=== PATIENT | male | born 1950 | race Caucasian/White ===

== ENCOUNTER → 2017-09-28 07:06 | Outpatient (CLI) | payer MEDICARE, OTHER, SELFPAY ==
[2017-09-28 07:20] LABS: Bacteria 0 SEEN /hpf (None Seen); Mucous, Urine 0 SEEN /hpf (<or=2+); Red Blood Cells-Urine 0 SEEN /hpf (0-5); White Blood Cells 0 SEEN /hpf (0-5)
[2017-09-28 07:57] LABS: Absolute Lymphocyte Count 1.39 X10^3/ul (0.83-4.51); Absolute Neutrophil Count 3.5 X10^3/uL (2.0-7.7); Basophil# 0.03 X10^3/uL; Basophil% 0.5 % (0-1); Eosinophil# 0.17 X10^3/uL; Hematocrit 43.3 % (40-54); Hemoglobin 14.1 g/dl (13.0-16.5); Lymphocyte # 1.39 X10^3/ul (4.0); Lymphocyte % 24.8 % (19-41); Mean Corp Hgb Conc 32.6 g/gl (32-36); Mean Corpuscular Hgb 33.2 pg (27.0-32.0); Mean Corpuscular Volume 101.9 fL (80-94); Mean Platelet Vol. 9.6 fl (6.2-12.0); Monocyte# 0.51 X10^3/uL; Monocyte% 9.1 % (0-10); Neutrophil # 3.46 X10^3/uL (2.7-7.7); Neutrophil % 61.7 % (47-70); Platelet Count 159 K/mm3 (150-450); RBC Distribution Width CV 14.3 % (11.6-14.6); RBC Distribution Width SD 52.8 fl (35.1-43.9); Red Blood Count 4.25 M/mm3 (4.6-6.2); White Blood Count 5.6 K/mm3 (4.4-11.0)
[2017-09-28 07:58] LABS: POSITIVE COUNT NO; POSITIVE DIFFERENTIAL NO; POSITIVE MORPHOLOGY NO
[2017-09-28 08:10] LABS: Color, Urine Yellow (Yellow); Glucose, Dipstick Normal (Normal); Ketone-Dipstick Negative (Negative); Leukocyte Esterase-Dipstick Negative /ul (Negative); Nitrite-Dipstick Negative (Negative); Occult Blood-Urine Negative /ul (Negative); Protein-Dipstick Negative (Negative); Urine Bilirubin Dipstick Negative (Negative); Urine Clarity Clear (Clear); Urine Urobilinogen Normal (Normal)
[2017-09-28 08:14] LABS: Squamous Epithelial Cells - UA 0-5 SEEN /hpf (0-5)
[2017-09-28 08:25] LABS: Microalbumin,Random Urine 13.4 mg/L (NO RANGE EST.); Microalbumin:Creatinine Ratio 15.8 mg/g CRE (<30 mg/g CRE)
[2017-09-28 08:42] LABS: ALB/GLOB Ratio 0.9 RATIO (0.9-2.4); AST(SGOT) 23 U/L (15-37); Alanine Aminotransfer ALT/SGPT 34 U/L (16-61); Albumin, Serum 3.3 g/dL (3.2-5.0); Alkaline Phosphatase 53 U/L (45-117); Anion Gap 13 (5-15); BUN 62 mg/dL (7-18); BUN/Creat Ratio 35.6 RATIO (10-20); Calcium,Total 9.2 mg/dL (8.5-10.1); Chloride 103 mmol/L (98-107); Cholesterol 245 mg/dL (200); Creatinine, Serum 1.74 mg/dL (0.70-1.30); EST Glomerular Filtration Rate 42 mL/min (>60); Est Glom Filt Rate - Afr Amer 50 mL/min (>60); Globulin 3.7 g/dL (2.2-4.2); Glucose 111 mg/dL (74-106); High Density Lipoprotein 41 mg/dL; Potassium 3.9 mmol/L (3.5-5.1); Sodium Level 145 mmol/L (136-145); Thyroid Stim Hormone (TSH) 1.82 uIU/mL (0.358-3.74); Triglycerides 571 mg/dL
[2017-09-28 08:54] LABS: Vitamin B12 353 pg/mL (211-911); Vitamin D,25 Hydroxy 24.7 ng/mL (29.95-100.01)
== END ==
PROVIDERS: Family Provider Internal Medicine; PCP Internal Medicine; Visit Provider Internal Medicine
DX: I11.9 Hypertensive heart disease without heart failure (principal); I25.10 Atherosclerotic heart disease of native coronary artery without angina pectoris; I48.91 Unspecified atrial fibrillation; E55.9 Vitamin D deficiency, unspecified; E53.8 Deficiency of other specified B group vitamins
CPT/HCPCS: 36415; 80053; 80061; 81001; 82043; 82306; 82570; 82607; 84443; 85025

== ENCOUNTER → 2017-10-20 07:01 | Outpatient (CLI) | payer MEDICARE, OTHER, SELFPAY ==
[2017-10-20 07:46] LABS: AST(SGOT) 23 U/L (15-37); Alanine Aminotransfer ALT/SGPT 34 U/L (16-61); Albumin, Serum 3.4 g/dL (3.2-5.0); Alkaline Phosphatase 58 U/L (45-117); Bilirubin, Direct 0.07 mg/dL (0.00-0.30); Cholesterol 210 mg/dL (200); Globulin 3.4 g/dL (2.2-4.2); High Density Lipoprotein 35 mg/dL; Protein, Total 6.8 g/dL (6.4-8.2); Triglycerides 472 mg/dL
== END ==
PROVIDERS: Family Provider Internal Medicine; PCP Internal Medicine; Visit Provider Internal Medicine Cardiovascular Disease
DX: I25.10 Atherosclerotic heart disease of native coronary artery without angina pectoris (principal); E78.5 Hyperlipidemia, unspecified
CPT/HCPCS: 36415; 80061; 80076

== ENCOUNTER → 2017-10-22 08:51 | Outpatient (CLI) | payer MEDICARE, OTHER, SELFPAY ==
--- NOTE | 2017-10-22 09:15 | MRI_ITS ---
STUDY: MRI LUMBAR SPINE WITHOUT CONTRAST REASON FOR EXAM: Male, 66 years old. Spinal stenosis, low back pain and difficulty walking x20 years. TECHNIQUE: Standardized fat and water weighted pulse sequences were obtained in the sagittal and axial planes. COMPARISON: MRI lumbar spine 06/13/2014. CT lumbar spine without contrast 05/02/2015. FINDINGS: Partial sacralization of L5 is confirmed on CT of the lumbar spine dated 05/02/2015. T10-T11: (Sagittal only). Normal endplates. Normal disc height, hydration and morphology. Normal central canal and bilateral intervertebral neural foramina. T11-T12: (Sagittal only). Normal endplates. Normal disc height, hydration and morphology. Normal central canal and bilateral intervertebral neural foramina. T12-L1: (Sagittal only). Normal endplates. Normal disc height, hydration and morphology. Normal central canal and bilateral intervertebral neural foramina. Normal lumbar lordosis. There is no substantial scoliosis. Normal conus medullaris that terminates at the upper T12 vertebral body level. L1-2: Anterior marginal spurs. Schmorl's node in the L1 inferior endplate. Moderate disc space height narrowing. Anterior disc protrusion in between the anterior marginal spurs. No extruded disc fragment. Normal central canal and bilateral lateral recesses. Mild left degenerative facet arthropathy. Normal right facet joint. Normal bilateral intervertebral neural foramina. L2-3: Schmorl's node in the L2 inferior endplate. Normal L3 superior endplate. Moderate disc space height narrowing with small posterior bulging disc. Mild central canal stenosis secondary to developmentally short pedicles. The AP canal diameter is 10 mm. Moderate right degenerative facet arthropathy. Mild left degenerative facet arthropathy. Normal bilateral intervertebral neural foramina. L3-4: Moderate disc space height narrowing with moderate loss of disc hydration. Degenerative vacuum phenomenon. No extruded disc fragment. Moderate central canal stenosis secondary to developmentally short pedicles and dorsal epidural lipomatosis. The AP canal diameter is 8.5 mm. Normal bilateral lateral recesses. Moderate bilateral degenerative facet arthropathy. Mild stenosis of the bilateral intervertebral neural foramina. L4-5: Normal endplates. Degenerative vacuum phenomenon with moderate loss of disc hydration. Mild degenerative anterolisthesis of L4 on L5. Moderate central canal stenosis. The AP canal diameter is 8.2 mm. Pronounced bilateral degenerative facet arthropathy. Mild stenosis of the right intervertebral neural foramen. Normal left intervertebral neural foramen. L5-S1: Normal endplates. Hypoplastic disc. Normal disc hydration and morphology. Normal central canal and bilateral lateral recesses. Normal facet joints. Normal bilateral intervertebral neural foramina. Normal visualized sacral ala. Normal visualized paraspinous soft tissue structures. MRI/Spine Lumbar (Routine) IMPRESSION: 1. No MRI evidence of lumbar extruded disc fragment or nerve root displacement. 2. Partial sacralization of L5 accounting for hypoplastic L5-S1 disc. 3. Mild degenerative anterolisthesis of L4 on L5 with moderate central canal stenosis and pronounced bilateral degenerative facet arthropathy. 4. Moderate central canal stenosis at L3-L4 disc level secondary to developmentally short pedicles and dorsal epidural lipomatosis. 5. Mild central canal stenosis at L2-L3 disc level with small posterior bulging disc and moderate right degenerative facet arthropathy. 6. Moderate L1-L2 disc space height narrowing with mild left degenerative facet arthropathy. 7. No significant interval changes when compared to 06/13/[address] of the lumbar spine dated 05/02/2015. Electronically Signed: Roberto Lunsford MD at 15:05 EDT , Service support ,
== END ==
PROVIDERS: Family Provider Internal Medicine; PCP Internal Medicine; Visit Provider Nurse Practitioner Family
DX: M48.061 Spinal stenosis, lumbar region without neurogenic claudication (principal); M51.16 Intervertebral disc disorders with radiculopathy, lumbar region; M46.98 Unspecified inflammatory spondylopathy, sacral and sacrococcygeal region; M47.26 Other spondylosis with radiculopathy, lumbar region; M43.18 Spondylolisthesis, sacral and sacrococcygeal region
CPT/HCPCS: 72148

== ENCOUNTER → 2017-11-09 12:40 | Outpatient (CLI) | payer MEDICARE, OTHER, SELFPAY ==
--- NOTE | 2017-11-09 12:44 | CDU_ITS ---
Rt. Velocities/BP Lt. Velocities/BP Prox CCA 63/13 cm/sec. Prox CCA 104/18 cm/sec. Mid CCA 64/15 cm/sec. Mid CCA 127/24 cm/sec. Dist CCA 70/16 cm/sec. Dist CCA 120/22 cm/sec. Prox ICA 66/18 cm/sec. Prox ICA 108/24 cm/sec. Mid ICA 75/25 cm/sec. Mid ICA 89/22 cm/sec. Dist ICA 58/23 cm/sec. Dist ICA 96/19 cm/sec. Rt. ICA/CCA = 1.17. Lt. ICA/CCA = 0.85. Prox ECA 134/20 cm/sec. Prox ECA 254/16 cm/sec. Rt. Vert. 27/14 cm/sec. Lt. Vert. 53/9 cm/sec. Right Extracranial There is heterogeneous, irregular atherosclerotic plaque noted in the right common carotid artery. There is heterogeneous, irregular atherosclerotic plaque noted in the right internal carotid artery. There is heterogeneous, irregular atherosclerotic plaque noted in the right external carotid artery. Antegrade flow is noted in the right vertebral artery. Left Extracranial There is heterogeneous, irregular atherosclerotic plaque noted in the left common carotid artery. There is heterogeneous, irregular atherosclerotic plaque noted in the left internal carotid artery. The atherosclerotic plaque causes acoustic shadowing. There is heterogeneous, irregular atherosclerotic plaque noted in the left external carotid artery. Antegrade flow is noted in the left vertebral artery. Procedure Carotid Duplex [id number]. The study was technically difficult. Exam performed in department. Interpretation Summary Mild irregular calcific plague at the proximal right internal carotid with <50% stenosis. Mild irregular calcific plague at the proximal left internal carotid with <50% stenosis. Moderate disease left distal common carotid Mild disease right external carotid Moderate disease left external carotid Patent and antegrade vertebrals bilaterally. Since 06/01/16 there is mild progression of stenosis involving the left distal common carotid and external carotid arteries. Ordering Physician: Babatunde Maria Referring Physician: Babatunde Maria
== END ==
PROVIDERS: Family Provider Internal Medicine; PCP Internal Medicine; Visit Provider Internal Medicine Cardiovascular Disease
DX: I65.22 Occlusion and stenosis of left carotid artery (principal)
CPT/HCPCS: 93880

== ENCOUNTER 2018-02-16 17:05 | Inpatient (IN) | payer MEDICARE, OTHER, SELFPAY ==
[2018-02-16 17:07] VITALS: BP 130/56; PULSE 64; RESP 17; TEMP 37.1; O2SAT 93; BMI 39.2
--- NOTE | 2018-02-16 17:23 | ED.VISSUMM ---
- ER Visit Summary Date of Service: 02/16/18 Chief Complaint: Abnormal labs/elevated creatinine History of Present Illness: The patient is a 67 M who was told to come the emergency department today. He had preop labs this morning for a back surgery later this month. He was told that his creatinine was elevated and to come the emergency department. He is having surgery because of some chronic back pain. He states that he has no history of any kidney issues in the past. He urinates a lot because he drinks a lot of water throughout the day. No dysuria or hematuria is noted. Physical Examination: Vital signs reviewed. HEENT exam unremarkable. Heart is regular rate and rhythm without murmurs. Lungs are clear to auscultation. Abdomen is soft and nontender. Extremities reveal no edema. Skin exam normal. Neurologic exam normal. Test Results: Laboratory studies reveal a BUN of 103 and a creatinine of 3.5 Emergency Department Course and Treatment: Patient was given saline. He started on a keto diet a month ago. Otherwise I do not have any reason as to why his kidney function is increased. His glucose is normal even though he has a history of diabetes. Patient will be admitted to the hospital for further evaluation Treatment Plan: [] Disposition: Admit Impression: Acute kidney injury This note was generated with [employer] dictation software. It may contain incorrect words, spelling, and punctuation that were not noted in review of the chart prior to signing ED Disposition - Plan for ED Patient: Chief Complaint: Abn Labs Referrals: Jazz Rodas DO [Primary Care Provider] -
[2018-02-16] MEDS: 0.9% Normal Saline 1,000 ML 150 ML IV ×2 (17:47→21:58)
[2018-02-16 17:56] LABS: Bacteria 0 SEEN /hpf (None Seen); Mucous, Urine 0 SEEN /hpf (<or=2+); Red Blood Cells-Urine 0 SEEN /hpf (0-5); Squamous Epithelial Cells - UA 0 SEEN /hpf (0-5); White Blood Cells 0 SEEN /hpf (0-5)
[2018-02-16 18:05] LABS: Glucose, Dipstick Normal (Normal); Ketone-Dipstick Negative (Negative); Leukocyte Esterase-Dipstick Negative /ul (Negative); Nitrite-Dipstick Negative (Negative); Occult Blood-Urine Negative /ul (Negative); Protein-Dipstick Negative (Negative); Specific Gravity, Urine 1.015 (1.002-1.030); Urine Bilirubin Dipstick Negative (Negative); Urine Urobilinogen Normal (Normal)
[2018-02-16 18:05] LABS: Absolute Lymphocyte Count 1.17 X10^3/ul (0.83-4.51); Basophil# 0.01 X10^3/uL; Basophil% 0.2 % (0-1); Eosinophil# 0.22 X10^3/uL; Eosinophils% 4.5 % (0-5); Hemoglobin 14.9 g/dl (13.0-16.5); Lymphocyte # 1.17 X10^3/ul (4.0); Mean Corp Hgb Conc 33.9 g/gl (32-36); Mean Corpuscular Hgb 33.4 pg (27.0-32.0); Mean Corpuscular Volume 98.7 fL (80-94); Mean Platelet Vol. 10.1 fl (6.2-12.0); Monocyte# 0.46 X10^3/uL; Monocyte% 9.4 % (0-10); Neutrophil # 3.01 X10^3/uL (2.7-7.7); Neutrophil % 61.9 % (47-70); Platelet Count 154 K/mm3 (150-450); RBC Distribution Width CV 13.6 % (11.6-14.6); RBC Distribution Width SD 48.9 fl (35.1-43.9); Red Blood Count 4.46 M/mm3 (4.6-6.2); White Blood Count 4.9 K/mm3 (4.4-11.0)
[2018-02-16 18:16] LABS: POSITIVE COUNT NO; POSITIVE DIFFERENTIAL NO; POSITIVE MORPHOLOGY NO
[2018-02-16 18:18] LABS: Color, Urine Yellow (Yellow); Urine Clarity Clear (Clear)
[2018-02-16 18:23] LABS: Anion Gap 10 (5-15); BUN 103 mg/dL (7-18); BUN/Creat Ratio 28.9 RATIO (10-20); Calcium,Total 8.9 mg/dL (8.5-10.1); Chloride 96 mmol/L (98-107); Creatinine, Serum 3.56 mg/dL (0.70-1.30); EST Glomerular Filtration Rate 18 mL/min (>60); Est Glom Filt Rate - Afr Amer 22 mL/min (>60); Estimated Creatinine Clearance 17.04 ml/min; Glucose 96 mg/dL (74-106); Potassium 4.4 mmol/L (3.5-5.1); Sodium Level 134 mmol/L (136-145)
--- NOTE | 2018-02-16 18:23 | ED.RN ---
lab resulted bun is 103, physician notified
[2018-02-16 18:51] VITALS: BMI 39.3
[2018-02-16 19:26] VITALS: BP 113/59; PULSE 63; RESP 18; O2SAT 96
[2018-02-16 19:37] VITALS: BP 113/59; PULSE 63; RESP 18; O2SAT 96
--- NOTE | 2018-02-16 19:43 | PCM.HP.STD ---
Problem List (1) H/O shoulder replacement Status: Resolved (2) History of left heart catheterization (LHC) Status: Chronic Comment: 03/1997, 03/2004, 07/21/2011 (3) History of transurethral resection of prostate Status: Chronic (4) History of coronary artery bypass surgery Status: Chronic (5) HLD (hyperlipidemia) Status: Chronic Qualifiers: (6) HTN (hypertension) Status: Chronic Qualifiers: (7) Atherosclerosis of coronary artery bypass graft without angina pectoris Status: Chronic Qualifiers: (8) Renal disease Status: Chronic (9) Presence of aortocoronary bypass graft Status: Chronic Comment: CABG 03/20/1997 BETHEA to LAD, Reverse SVG to CX and to DX (10) Persistent atrial fibrillation Status: Chronic (11) Dyspnea Status: Chronic (12) Sleep apnea Status: Chronic (13) Occlusion and stenosis of left carotid artery Status: Chronic (14) Atherosclerotic heart disease of [place] coronary artery without angina pectoris Status: Chronic Comment: CABG 03/20/1997 BETHEA to LAD, Reverse SVG to CX and to DX, LHC 07/21/2011 (15) Obesity (BMI 30-39.9) Status: Chronic (16) Anxiety and depression Status: Chronic (17) Atrial fibrillation and flutter Status: Chronic Comment: s/p ablation x 2 (flutter and fibrillation) (18) PAD (peripheral artery disease) Status: Chronic Comment: s/p BL LE common iliac stenting (19) Acute alcohol intoxication Status: Chronic (20) Rotator cuff tear arthropathy of right shoulder Status: Chronic (21) Slurred speech Status: Chronic (22) pad with stents leg Status: Chronic (23) AK on CKD stage III Status: Acute History of Present Illness Date of Admission: 02/16/18 Chief Complaint: Abnormal labs by PCP The patient is a 67 year old M with history of coronary artery disease status post triple-vessel CABG in 1996, peripheral arterial disease status post bilateral common iliac artery stenting in about 1994, A. fib ablation in 2011 and atrial flutter ablation in 2015 was supposed to have lumbar back surgery in about 3-4 weeks therefore he went for preop labs. Preop labs shows elevated creatinine and BUN and therefore was sent to ER. In ED, his creatinine shows 3.56, BUN 103, PREVIOUS 1.74/62 in September 2017. Patient is on Lasix 40 mg and lisinopril 20 mg twice daily at home. Patient denies any change in the urine output, lower urinary tract symptoms, renal angle pain, fever or flulike symptoms or acute illness. Patient denies recent history of fluid loss including nausea, vomiting diarrhea or GI bleed. He is on Eliquis 5 mg twice daily for A. fib. H&H 14.9/44. Platelet 1 54,000. of note, patient had TURP many years ago and his urine flow is good. [] Past Medical History Past Medical History (Chronic Problems): Chronic Problems (Last Reviewed 10/27/17 @ 09:21 by Babatunde Maria MD) History of left heart catheterization (LHC) (Chronic) 03/1997, 03/2004, 07/21/2011 History of transurethral resection of prostate (Chronic) History of coronary artery bypass surgery (Chronic) HLD (hyperlipidemia) (Chronic) HTN (hypertension) (Chronic) Atherosclerosis of coronary artery bypass graft without angina pectoris (Chronic) Renal disease (Chronic) Presence of aortocoronary bypass graft (Chronic) CABG 03/20/1997 BETHEA to LAD, Reverse SVG to CX and to DX Persistent atrial fibrillation (Chronic) Dyspnea (Chronic) Sleep apnea (Chronic) Occlusion and stenosis of left carotid artery (Chronic) Atherosclerotic heart disease of [place] coronary artery without angina pectoris (Chronic) CABG 03/20/1997 BETHEA to LAD, Reverse SVG to CX and to DX, C 07/21/2011 Obesity (BMI 30-39.9) (Chronic) Anxiety and depression (Chronic) Atrial fibrillation and flutter (Chronic) s/p ablation x 2 (flutter and fibrillation) PAD (peripheral artery disease) (Chronic) s/p BL LE common iliac stenting Acute alcohol intoxication (Chronic) Rotator cuff tear arthropathy of right shoulder (Chronic) Slurred speech (Chronic) pad with stents leg (Chronic) Medical History: Medical History (Last Reviewed 10/27/17 @ 09:21 by Babatunde Maria MD) HLD (hyperlipidemia) (Chronic) E78.5 HTN (hypertension) (Chronic) I10 Atherosclerosis of coronary artery bypass graft without angina pectoris (Chronic) I25.810 Renal disease (Chronic) N28.9 Persistent atrial fibrillation (Chronic) I48.1 Dyspnea (Chronic) R06.00 Sleep apnea (Chronic) G47.30 Occlusion and stenosis of left carotid artery (Chronic) I65.22 Atherosclerotic heart disease of [place] coronary artery without angina pectoris (Chronic) I25.10 CABG 03/20/1997 BETHEA to LAD, Reverse SVG to CX and to DX, C 07/21/2011 Obesity (BMI 30-39.9) (Chronic) E66.9 Anxiety and depression (Chronic) F41.9, F32.9 Atrial fibrillation and flutter (Chronic) I48.91, I48.92 s/p ablation x 2 (flutter and fibrillation) PAD (peripheral artery disease) (Chronic) I73.9 s/p BL LE common iliac stenting Allergies gabapentin Adverse Reaction (Verified 02/16/18 17:06) Other made me nuts warfarin [From Coumadin] Adverse Reaction (Verified 02/16/18 17:06) very sensitive, high INR and GI bleed Home Medications: Ambulatory Orders Medication Instructions Recorded Aspirin E.C. [Ecotrin] 81 mg PO QHS 01/22/15 Modafinil [Provigil] 200 mg PO BID 01/22/15 Multivitamins,Therapeutic 1 tab PO DAILY 01/22/15 [Multivitamin] Cholecalciferol (Vitamin D3) 5,000 unit PO DAILY 06/23/16 [Vitamin D3] pantoprazole 40 mg tablet,delayed 40 mg PO PRN PRN 30 Days #30 04/14/17 release fenofibrate 54 mg tablet 54 mg PO QHS #90 tab 06/27/17 atorvastatin 40 mg tablet 40 mg PO DAILY #90 tab 07/04/17 furosemide 40 mg tablet 40 mg PO DAILY #90 tab 07/30/17 atenolol 25 mg tablet 25 mg PO DAILY #90 tab 08/22/17 apixaban 5 mg tablet 5 mg PO BID 30 Days #60 tab 11/03/17 Citalopram Hydrobromide 10 mg PO DAILY 02/16/18 [Citalopram HBr] Lisinopril 20 mg PO BID 02/16/18 Surgical History: Surgical History (Last Reviewed 10/27/17 @ 09:21 by Babatunde Maria MD) H/O shoulder replacement (Resolved) Z96.619 History of left heart catheterization (LHC) (Chronic) Z98.890 03/1997, 03/2004, 07/21/2011 History of transurethral resection of prostate (Chronic) Z98.890, Z90.79 History of coronary artery bypass surgery (Chronic) Z95.1 Presence of aortocoronary bypass graft (Chronic) Z95.1 CABG 03/20/1997 BETHEA to LAD, Reverse SVG to CX and to DX Surgical History: coronary bypass surgery, - - Jaw ointment, bilateral lower extremity common iliac stenting, CABG ?3, nasal surgery, TURP, ablation ?2, total reverse shoulder replacement, ulnar nerve repair. Psychiatric History: Anxiety, Depression Smoking Status: Former smoker Tobacco Use: Cigarettes - *Family History Paternal Family History: Family History (Last Reviewed 10/27/17 @ 09:21 by Babatunde Maria MD) Father Myocardial infarction Heart disease Mother CAD (coronary artery disease) Brother CAD (coronary artery disease) Diabetes Hx of CABG Sister Hypertension Pulmonary embolism History Items: Heart Disease, Hypertension Maternal Family History: Family History (Last Reviewed 10/27/17 @ 09:21 by Babatunde Maria MD) Father Myocardial infarction Heart disease Mother CAD (coronary artery disease) Brother CAD (coronary artery disease) Diabetes Hx of CABG Sister Hypertension Pulmonary embolism History Items: Stroke Review of Systems Constitutional: Denies: Chills, Fever, Weight Change HEENT: Denies: Head Aches, Sinus Congestion, Sinus Drainage Cardiovascular: Denies: Chest Pain, Palpitations Respiratory: Denies: Cough, Shortness of breath at rest, Sputum production Gastrointestinal: Denies: Abdominal Pain, Nausea, Vomiting Genitourinary: Denies: Dysuria Musculoskeletal: Reports: Back Pain, Joint Pain. Denies: Joint Tenderness Skin: Denies: Rash, Wounds Neurological: Denies: Numbness, Tingling, Focal weakness Psychiatric: Denies: Anxiety, Depression, Homicidal Ideations, Suicidal Ideations Hematologic/ Lymphatic: Denies: Easy Bruising, Easy Bleeding VTE Information - Inpt Only VTE Present on Admission: No VTE Pharm Prophylaxis ordered?: No Reason prophylaxis not ordered:: Procedure Not Indicated Patient Problems: Active and Suspected Problems (Last Reviewed 10/27/17 @ 09:21 by Babatunde Maria MD) AK on CKD stage III (Acute) - Physical Exam General: Alert, Oriented x3, Cooperative HEENT: Atraumatic, PERRLA, EOMI, Normocephalic Oral: Moist Mucosa Neck: Supple, No JVD, Negative Carotid Bruits Lungs: Clear to auscultation, Normal air movement, No rhonchi, No wheeze, No rales Cardiovascular: Regular rate, Regular Rhythm, Normal S1, Normal S2, No murmurs Abdomen: Bowel Sounds Present, Soft, Non Tender, Non-Distended Extremities: Capillary Refill Less than 3 Seconds, Edema Skin: No rashes, No breakdown Musculoskeletal: No Tenderness to Palpation of Joints or Extremities, Arthritic Changes, - - No lumbar spine tenderness Neurological: Cranial nerves II-XII grossly intact, Neuro grossly intact, Motor Exam 5/5 strength throughout Psych/Mental Status: Normal Affect, Appropriate Vital Signs Temp Pulse Resp BP Pulse Ox 98.8 F 63 18 113/59 L 96 02/16/18 17:07 02/16/18 19:37 02/16/18 19:37 02/16/18 19:37 02/16/18 19:37 Oxygen Delivery Method Room Air Weight: 236 lb 1.841 oz Body Mass Index (BMI) 39.2 Finger Stick Blood Glucose 98 Laboratory Tests Past 24 Hrs 02/16/18 02/16/18 02/16/18 17:32 17:38 17:38 WBC 4.9 RBC 4.46 L Hgb 14.9 Hct 44.0 MCV 98.7 H MCH 33.4 H MCHC 33.9 RDW 13.6 RDW Differential 48.9 H Plt Count 154 MPV 10.1 Immature Gran % (Auto) 0.000 Neut % (Auto) 61.9 Lymph % (Auto) 24.0 [place] % (Auto) 9.4 Eos % (Auto) 4.5 Baso % (Auto) 0.2 Absolute Neuts (auto) 3.0 Absolute Lymphs (auto) 1.17 Total Counted Not Reportable Sodium 134 L Potassium 4.4 Chloride 96 L Carbon Dioxide 28.0 Anion Gap 10 BUN 103 H* Creatinine 3.56 H Estim Creat Clear Calc 17.04 Est GFR (MDRD) Af Amer 22 L Est GFR (MDRD) Non-Af 18 L BUN/Creatinine Ratio 28.9 H Glucose 96 Calcium 8.9 Urine Color Yellow Urine Clarity Clear Urine pH 5.0 Ur Specific [place] 1.015 Urine Protein Negative Urine Glucose (UA) Normal Urine Ketones Negative Urine Occult Blood Negative Urine Nitrite Negative Urine Bilirubin Negative Urine Urobilinogen Normal Ur Leukocyte Esterase Negative Urine RBC 0 SEEN Urine WBC 0 SEEN Ur Squamous Epith Cells 0 SEEN Urine Bacteria 0 SEEN Urine Mucus 0 SEEN Assessment/Plan All Active Problems (Last Reviewed 10/27/17 @ 09:21 by Babatunde Maria MD) AK on CKD stage III (Acute) H/O shoulder replacement (Resolved) Blood loss anemia (Resolved) Supratherapeutic INR (Resolved) The patient is a 67 year old M with history of coronary artery disease status post triple-vessel CABG in 1996, peripheral arterial disease status post bilateral common iliac artery stenting in about 1994, A. fib ablation in 2011 and atrial flutter ablation in 2015 was supposed to have lumbar back surgery in about 3-4 weeks therefore he went for preop labs. Preop labs shows elevated creatinine and BUN and therefore was sent to ER. In ED, his creatinine shows 3.56, BUN 103, PREVIOUS 1.74/62 in September 2017. Patient is on Lasix 40 mg and lisinopril 20 mg twice daily at home. Patient denies any change in the urine output, lower urinary tract symptoms, renal angle pain, fever or flulike symptoms or acute illness. Patient denies recent history of fluid loss including nausea, vomiting diarrhea or GI bleed. He is on Eliquis 5 mg twice daily for A. fib. H&H 14.9/44. Platelet 1 54,000. of note, patient had TURP many years ago and his urine flow is good. 1. Acute kidney injury on CKD stage III probably related to medications, diuretic and RAMAKRISHNA inhibitor/cardiorenal disease: Patient is being admitted on regular MedSurg floor. IV fluid normal saline to correct the prerenal. Urine osmolarity, urine electrolytes and BUN ordered. Monitor intake and output and electrolytes. Nephrology consult. Hold nephrotoxic medications. 2. Cardiac disease: Coronary artery disease status post CABG, peripheral artery status post bilateral common iliac artery stenting, history of A. fib and atrial flutter ablation, mild to moderate carotid artery disease: Continue cardiac medications. EKG ordered. Patient had carotid Doppler in November 2017 and shows mild left and right internal carotid artery less than 50% and moderate disease in left distal common carotid, moderate disease in left external carotid and mild disease in the right external carotid. 2D echo in May 2016 shows EF 65% with normal left ventricle systolic function and no regional wall motion abnormality. Left atrium moderately enlarged. Normal right atrium. 1-2+ eccentric MR, 1-2+ TR, RVSP 34 mmHg. 3. Hypertension, dyslipidemia, obstructive sleep apnea on CPAP, morbid obesity: Home medication reconciliation done. 4. Multiple other comorbidities include chronic lumbar degenerative joint disease for which she is scheduled for surgery, anxiety and depression, rotator cuff tear of right shoulder status post right shoulder replacement and history of TURP: Multiple comorbidities complicates the present care and expect difficult and delay recovery This note was generated with [email or web address] dictation software. Every effort was made to ensure accuracy, however computerized property management coordinator mistakes may persist. Code Visit Inpatient E&M: 77843 Init Hosp L3
[2018-02-16 19:49] VITALS: BMI 38.8
[2018-02-16 19:51] VITALS: BP 129/54; PULSE 65; RESP 18; TEMP 36.7; O2SAT 99
[2018-02-16 20:14] VITALS: BMI 39.3
[2018-02-16 20:49] VITALS: PULSE 65; RESP 18; O2SAT 99
[2018-02-16 21:06] LABS: Urine Chloride 37 mmol/L (Not Establ.); Urine Sodium 38 mmol/L (Not Establ.)
[2018-02-16 21:07] LABS: Urea Nitrogen, Urine 672 mg/dL (NO RANGE EST.)
[2018-02-16 21:16] LABS: Osmolality, Urine 424 mOsm/KG
[2018-02-16] MEDS: Aspirin E.C. 81 MG Tablet PO (21:54)
[2018-02-16] MEDS: APIXABAN 5 MG TABLET PO (21:54)
[2018-02-16] MEDS: Atorvastatin Calcium 40 MG Tablet PO (21:54)
[2018-02-17 02:00] VITALS: BP 113/61; PULSE 65; RESP 18; TEMP 36.3; O2SAT 100
[2018-02-17] MEDS: 0.9% Normal Saline 1,000 ML 150 ML IV ×3 (05:00→17:58)
[2018-02-17 06:58] LABS: Absolute Lymphocyte Count 1.03 X10^3/ul (0.83-4.51); Absolute Neutrophil Count 2.1 X10^3/uL (2.0-7.7); Basophil# 0.01 X10^3/uL; Basophil% 0.3 % (0-1); Eosinophils% 5.4 % (0-5); Hematocrit 39.2 % (40-54); Hemoglobin 13.4 g/dl (13.0-16.5); Lymphocyte # 1.03 X10^3/ul (4.0); Mean Corp Hgb Conc 34.2 g/gl (32-36); Mean Corpuscular Hgb 33.8 pg (27.0-32.0); Mean Platelet Vol. 9.2 fl (6.2-12.0); Monocyte% 8.2 % (0-10); Neutrophil # 2.14 X10^3/uL (2.7-7.7); Neutrophil % 58.1 % (47-70); Platelet Count 124 K/mm3 (150-450); RBC Distribution Width CV 13.4 % (11.6-14.6); RBC Distribution Width SD 47.5 fl (35.1-43.9); Red Blood Count 3.96 M/mm3 (4.6-6.2); White Blood Count 3.7 K/mm3 (4.4-11.0)
[2018-02-17 07:00] LABS: POSITIVE COUNT NO; POSITIVE DIFFERENTIAL NO; POSITIVE MORPHOLOGY NO
[2018-02-17 07:08] VITALS: O2SAT 91
[2018-02-17 07:09] LABS: Anion Gap 9 (5-15); BUN 95 mg/dL (7-18); BUN/Creat Ratio 40.8 RATIO (10-20); Calcium,Total 8.1 mg/dL (8.5-10.1); Chloride 105 mmol/L (98-107); Creatinine, Serum 2.33 mg/dL (0.70-1.30); EST Glomerular Filtration Rate 30 mL/min (>60); Est Glom Filt Rate - Afr Amer 36 mL/min (>60); Estimated Creatinine Clearance 26.03 ml/min; Glucose 86 mg/dL (74-106); Potassium 4.7 mmol/L (3.5-5.1); Sodium Level 139 mmol/L (136-145)
--- NOTE | 2018-02-17 08:21 | PN_ITS ---
Patient Problems: Active and Suspected Problems (Last Reviewed 10/27/17 @ 09:21 by Babatunde Maria MD) AK on CKD stage III (Acute) Subjective: Patient is a 67-year-old gentleman with multiple comorbidities was undergoing preop evaluation for an upcoming surgery patient was noted to have abnormal labs sent to the ED for subsequent management patient was found to be in acute kidney injury started on IV fluids and admitted to regular nursing floor for further management Objective: GENERAL: cooperative HEENT: Atraumatic; moist oral mucosa EYES; Anicteric, Normal Conjunctiva NECK; supple, normal thyroid, no distended JVD. RESPIRATORY: Diminished to auscultation bilaterally, CARDIOVASCULAR: Regular S1 S2, no audible murmurs GI: soft, non-tender, normoactive bowel sounds, : No Renal angle tenderness; EXTREMITIES: No edema, no clubbing, no cyanosis. MUSCULOSKELETAL: No Joint Tenderness; no muscle waisting NEURO: Awake; no lateralizing signs. SKIN: No Rash PSYCH; Normal affect Vitals/I&O's: Vital Signs Temp Pulse Resp BP Pulse Ox 97.3 F L 65 18 113/61 91 02/17/18 02:00 02/17/18 02:00 02/17/18 02:00 02/17/18 02:00 02/17/18 07:08 Oxygen Delivery Method Room Air Weight: 105.9 kg Body Mass Index (BMI) 38.8 Finger Stick Blood Glucose 98 Intake and Output for Last 24 Hours 02/15/18 02/16/18 02/17/18 23:59 23:59 23:59 Intake Total 1983 Output Total 1000 / 1000 Balance 984 / 984 Laboratory Results 02/16/18 17:32: Urine Color Yellow, Urine Clarity Clear, Urine pH 5.0, Ur Specific [place] 1.015, Urine Protein Negative, Urine Glucose (UA) Normal, Urine Ketones Negative, Urine Occult Blood Negative, Urine Nitrite Negative, Urine Bilirubin Negative, Urine Urobilinogen Normal, Ur Leukocyte Esterase Negative, Urine RBC 0 SEEN, Urine WBC 0 SEEN, Ur Squamous Epith Cells 0 SEEN, Urine Bacteria 0 SEEN, Urine Mucus 0 SEEN 02/16/18 17:32: Urine Osmolality 424 02/16/18 17:32: Urine Creatinine 114.00 02/16/18 17:32: U Random Total Protein 7.0 02/16/18 17:32: Urine Urea Nitrogen 672 02/16/18 17:32: Ur Random Sodium 38, Urine Potassium 26.0, Urine Chloride 37 02/16/18 17:38: WBC 4.9, RBC 4.46 L, Hgb 14.9, Hct 44.0, MCV 98.7 H, MCH 33.4 H, MCHC 33.9, RDW 13.6, RDW Differential 48.9 H, Plt Count 154, MPV 10.1, Immature Gran % (Auto) 0.000, Neut % (Auto) 61.9, Lymph % (Auto) 24.0, [place] % (Auto) 9.4, Eos % (Auto) 4.5, Baso % (Auto) 0.2, Absolute Neuts (auto) 3.0, Absolute Lymphs (auto) 1.17, Total Counted Not Reportable 02/16/18 17:38: Sodium 134 L, Potassium 4.4, Chloride 96 L, Carbon Dioxide 28.0, Anion Gap 10, BUN 103 H*, Creatinine 3.56 H, Estim Creat Clear Calc 17.04, Est GFR (MDRD) Af Amer 22 L, Est GFR (MDRD) Non-Af 18 L, BUN/Creatinine Ratio 28.9 H , Glucose 96, Calcium 8.9 02/17/18 06:45: WBC 3.7 L, RBC 3.96 L, Hgb 13.4, Hct 39.2 L, MCV 99.0 H, MCH 33.8 H, MCHC 34.2, RDW 13.4, RDW Differential 47.5 H, Plt Count 124 L, MPV 9.2, Immature Gran % (Auto) 0.000, Neut % (Auto) 58.1, Lymph % (Auto) 28.0, [place] % (Auto) 8.2, Eos % (Auto) 5.4 H, Baso % (Auto) 0.3, Absolute Neuts (auto) 2.1, Absolute Lymphs (auto) 1.03, Total Counted Not Reportable 02/17/18 06:45: Sodium 139, Potassium 4.7, Chloride 105, Carbon Dioxide 25.0, Anion Gap 9, BUN 95 H, Creatinine 2.33 H, Estim Creat Clear Calc 26.03, Est GFR (MDRD) Af Amer 36 L, Est GFR (MDRD) Non-Af 30 L, BUN/Creatinine Ratio 40.8 H, Glucose 86, Calcium 8.1 L Current Medications Al Hydroxide/Mg Hydroxide (Mylanta Ii) 30 ml PO Q6H PRN PRN PRN Reason: Gastric burning Apixaban (Eliquis) 5 mg PO BID [facility] Last Admin: 02/16/18 21:54 Dose: 5 mg Aspirin (Ecotrin) 81 mg PO QHS [facility] Last Admin: 02/16/18 21:54 Dose: 81 mg Atenolol (Tenormin (Beta Ariadna)) 25 mg PO DAILY [facility] Atorvastatin Calcium (Lipitor) 40 mg PO QHS [facility] Last Admin: 02/16/18 21:54 Dose: 40 mg Cholecalciferol (Vitamin D) 5,000 unit PO SUPPER [facility] Citalopram Hydrobromide (Celexa) 10 mg PO DAILY [facility] Sodium Chloride () 1,000 mls @ 150 mls/hr IV .Q6H40M [facility] Last Admin: 02/17/18 05:00 Dose: 150 mls/hr Modafinil (Provigil) 200 mg PO BID@0800,1200 [facility]amin) [facility] Ondansetron HCl (Zofran) 4 mg IV Q8H PRN PRN PRN Reason: NAUSEA Pantoprazole Sodium (Protonix) 40 mg PO DAILY PRN PRN PRN Reason: GI CRAMPING Promethazine HCl (Phenergan) 12.5 mg IV Q6H PRN PRN PRN Reason: NAUSEA/VOMITING Psyllium Hydrophilic Mucilloid (Metamucil) 1 packet PO DAILY PRN PRN PRN Reason: CONSTIPATION Senna/Docusate Sodium (Senokot-S, Liv-Colace) 2 tablet PO BID PRN PRN PRN Reason: Constipation Sodium Chloride () 5 - 30 ml IV UD PRN PRN Reason: SALINE FLUSH Zolpidem Tartrate (Ambien (Generic)) 5 mg PO QHS PRN PRN PRN Reason: INSOMNIA Medical Necessity - Tobacco Use Smoking Status: Former smoker Tobacco Use: Cigarettes Assessment/Plan All Active Problems (Last Reviewed 10/27/17 @ 09:21 by Babatunde Maria MD) AK on CKD stage III (Acute) H/O shoulder replacement (Resolved) Blood loss anemia (Resolved) Supratherapeutic INR (Resolved) Patient is a 67-year-old gentleman with multiple comorbidities was undergoing preop evaluation for an upcoming surgery patient was noted to have abnormal labs sent to the ED for subsequent management patient was found to be in acute kidney injury started on IV fluids and admitted to regular nursing floor for further management 1. Acute kidney injury secondary to medication induced kidney injury patient was on both lisinopril as well as diuretics furosemide suspected offending medications held on admission patient started on IV fluids with monitoring of electrolyte consultation was placed to nephrology 2. CAD with previous CABG (CABG 03/20/1997 BETHEA to LAD, Reverse SVG to CX and to DX, LHC 07/21/2011) 3. Peripheral arterial disease with bilateral lower extremity common iliac stenting 4. Hypertension-blood pressure controlled, home medications continued except for lisinopril 5. Dyslipidemia-patient is on statin therapy, continued at home dose 6. Paroxysmal A. fib: Rate controlled also systemic anticoagulation with Eliquis 7. Obstructive sleep apnea patient is on CPAP at night 6. Obesity with BMI of 38.9 7. Chronic kidney disease stage III suspected to be secondary to hypertensive nephrosclerosis baseline creatinine 1.6-1.8 8. Rotator cuff tear arthropathy of right shoulder ; status post right shoulder replacement 9. BPH with previous TURP 10. Carotid artery disease 11. Depression with anxiety 12. DVT prophylaxis patient is on Eliquis no need for additional measures Active Medications Al Hydroxide/Mg Hydroxide (Mylanta Ii) 30 ml PO Q6H PRN PRN PRN Reason: Gastric burning Apixaban (Eliquis) 5 mg PO BID [facility] Last Admin: 02/16/18 21:54 Dose: 5 mg Aspirin (Ecotrin) 81 mg PO QHS [facility] Last Admin: 02/16/18 21:54 Dose: 81 mg Atenolol (Tenormin (Beta Ariadna)) 25 mg PO DAILY [facility] Atorvastatin Calcium (Lipitor) 40 mg PO QHS [facility] Last Admin: 02/16/18 21:54 Dose: 40 mg Cholecalciferol (Vitamin D) 5,000 unit PO SUPPER [facility] Citalopram Hydrobromide (Celexa) 10 mg PO DAILY [facility] Sodium Chloride () 1,000 mls @ 150 mls/hr IV .Q6H40M [facility] Last Admin: 02/17/18 05:00 Dose: 150 mls/hr Modafinil (Provigil) 200 mg PO BID@0800,1200 [facility] Multivitamins (Multivitamin) 1 tablet PO DAILYCM [facility] Ondansetron HCl (Zofran) 4 mg IV Q8H PRN PRN PRN Reason: NAUSEA Pantoprazole Sodium (Protonix) 40 mg PO DAILY PRN PRN PRN Reason: GI CRAMPING Promethazine HCl (Phenergan) 12.5 mg IV Q6H PRN PRN PRN Reason: NAUSEA/VOMITING Psyllium Hydrophilic Mucilloid (Metamucil) 1 packet PO DAILY PRN PRN PRN Reason: CONSTIPATION Senna/Docusate Sodium (Senokot-S, Liv-Colace) 2 tablet PO BID PRN PRN PRN Reason: Constipation Sodium Chloride () 5 - 30 ml IV UD PRN PRN Reason: SALINE FLUSH Zolpidem Tartrate (Ambien (Generic)) 5 mg PO QHS PRN PRN PRN Reason: INSOMNIA Code Visit Inpatient E&M: 52625 Subs Hosp L3
[2018-02-17 08:33] VITALS: BP 121/51; PULSE 64; RESP 18; TEMP 36.7; O2SAT 94
[2018-02-17] MEDS: Multivitamins,Therapeutic Tablet 1 TABLET PO (08:35)
[2018-02-17] MEDS: Citalopram 10 MG Tablet PO (08:35)
[2018-02-17] MEDS: APIXABAN 5 MG TABLET PO ×2 (08:35→21:59)
[2018-02-17] MEDS: Atenolol 25 MG Tablet PO (08:36)
--- NOTE | 2018-02-17 11:28 | CASEMGMT ---
RN CM ASSESSMENT Introduced role of CM to patient and his . Both state pt is independent, plans to return home on discharge. PCP: Dr. Jazz Rodas [facility] Prescription Coverage: yes Living arrangements: Lives independently with Adaptive Equipment:no ambulatory assistive devices. Bipap through [employer] Transportation: drives self DC PLAN: Home on discharge
[2018-02-17 14:43] VITALS: BP 105/48; PULSE 56; RESP 18; TEMP 36.7; O2SAT 92
--- NOTE | 2018-02-17 16:11 | PCM.CONS.R ---
Problem List (1) AK on CKD stage III Status: Acute Consultation - Renal 02/17/18 PCP/ Referring MD: Requesting physician: Dr Smith Primary care physician: Jazz Rodas Reason for Consultation:: REGINO - History of Present Illness History of Present Illness: The patient is a 67 year old M who was admitted after outpatient lab work showed REGINO. has history of back pain, was scheduled for surgery on 03/07/18. has routine blood work drawn as part of pre op physical and this showed REGINO hence he was referred to ER. patient is completely asymptomatic no urinary complaints no new meds no swelling issues no NSAIDs last time any med was started was last year - Allergies Allergies: Allergies gabapentin Adverse Reaction (Verified 02/16/18 17:06) Other made me nuts warfarin [From Coumadin] Adverse Reaction (Verified 02/16/18 17:06) very sensitive, high INR and GI bleed - Current Medications Current Medications: Current Medications Al Hydroxide/Mg Hydroxide (Mylanta Ii) 30 ml PO Q6H PRN PRN PRN Reason: Gastric burning Apixaban (Eliquis) 5 mg PO BID [facility] Last Admin: 02/17/18 08:35 Dose: 5 mg Aspirin (Ecotrin) 81 mg PO QHS [facility] Last Admin: 02/16/18 21:54 Dose: 81 mg Atenolol (Tenormin (Beta Ariadna)) 25 mg PO DAILY [facility] Last Admin: 02/17/18 08:36 Dose: 25 mg Atorvastatin Calcium (Lipitor) 40 mg PO QHS [facility] Last Admin: 02/16/18 21:54 Dose: 40 mg Cholecalciferol (Vitamin D) 5,000 unit PO SUPPER [facility] Citalopram Hydrobromide (Celexa) 10 mg PO DAILY [facility] Last Admin: 02/17/18 08:35 Dose: 10 mg Sodium Chloride () 1,000 mls @ 150 mls/hr IV .Q6H40M [facility] Last Admin: 02/17/18 11:31 Dose: 150 mls/hr Modafinil (Provigil) 200 mg PO BID@0800,1200 [facility] Last Admin: 02/17/18 11:19 Dose: Not Given [facility]) [facility] Last Admin: 02/17/18 08:35 Dose: 1 tablet Ondansetron HCl (Zofran) 4 mg IV Q8H PRN PRN PRN Reason: NAUSEA Pantoprazole Sodium (Protonix) 40 mg PO DAILY PRN PRN PRN Reason: GI CRAMPING Promethazine HCl (Phenergan) 12.5 mg IV Q6H PRN PRN PRN Reason: NAUSEA/VOMITING Psyllium Hydrophilic Mucilloid (Metamucil) 1 packet PO DAILY PRN PRN PRN Reason: CONSTIPATION Senna/Docusate Sodium (Senokot-S, Liv-Colace) 2 tablet PO BID PRN PRN PRN Reason: Constipation Sodium Chloride () 5 - 30 ml IV UD PRN PRN Reason: SALINE FLUSH Zolpidem Tartrate (Ambien (Generic)) 5 mg PO QHS PRN PRN PRN Reason: INSOMNIA - Past Medical History Past Medical History (Chronic Problems): Chronic Problems (Last Reviewed 10/27/17 @ 09:21 by Babatunde Maria MD) History of left heart catheterization (LHC) (Chronic) 03/1997, 03/2004, 07/21/2011 History of transurethral resection of prostate (Chronic) History of coronary artery bypass surgery (Chronic) HLD (hyperlipidemia) (Chronic) HTN (hypertension) (Chronic) Atherosclerosis of coronary artery bypass graft without angina pectoris (Chronic) Renal disease (Chronic) Presence of aortocoronary bypass graft (Chronic) CABG 03/20/1997 BETHEA to LAD, Reverse SVG to CX and to DX Persistent atrial fibrillation (Chronic) Dyspnea (Chronic) Sleep apnea (Chronic) Occlusion and stenosis of left carotid artery (Chronic) Atherosclerotic heart disease of [place] coronary artery without angina pectoris (Chronic) CABG 03/20/1997 BETHEA to LAD, Reverse SVG to CX and to DX, C 07/21/2011 Obesity (BMI 30-39.9) (Chronic) Anxiety and depression (Chronic) Atrial fibrillation and flutter (Chronic) s/p ablation x 2 (flutter and fibrillation) PAD (peripheral artery disease) (Chronic) s/p BL LE common iliac stenting Acute alcohol intoxication (Chronic) Rotator cuff tear arthropathy of right shoulder (Chronic) Slurred speech (Chronic) pad with stents leg (Chronic) - Past Surgical History Surgical History: coronary bypass surgery, - - Jaw ointment, bilateral lower extremity common iliac stenting, CABG ?3, nasal surgery, TURP, ablation ?2, total reverse shoulder replacement, ulnar nerve repair. - Social History Smoking Status: Former smoker - Family History Paternal Family History: Family History (Last Reviewed 10/27/17 @ 09:21 by Babatunde Maria MD) Father Myocardial infarction Heart disease Mother CAD (coronary artery disease) Brother CAD (coronary artery disease) Diabetes Hx of CABG Sister Hypertension Pulmonary embolism History Items: Heart Disease, Hypertension Maternal Family History: Family History (Last Reviewed 10/27/17 @ 09:21 by Babatunde Maria MD) Father Myocardial infarction Heart disease Mother CAD (coronary artery disease) Brother CAD (coronary artery disease) Diabetes Hx of CABG Sister Hypertension Pulmonary embolism History Items: Stroke Review of Systems Constitutional: Denies: Chills, Fever, Weight Change HEENT: Denies: Head Aches, Sinus Congestion, Sinus Drainage Cardiovascular: Denies: Chest Pain, Palpitations Respiratory: Denies: Cough, Shortness of breath at rest, Sputum production Gastrointestinal: Denies: Abdominal Pain, Nausea, Vomiting Genitourinary: Denies: Dysuria Musculoskeletal: Denies: Joint Pain, Joint Tenderness Skin: Denies: Rash, Wounds Neurological: Denies: Numbness, Tingling, Focal weakness Psychiatric: Denies: Anxiety, Depression, Homicidal Ideations, Suicidal Ideations Hematologic/ Lymphatic: Denies: Easy Bruising, Easy Bleeding Patient Problems: Active and Suspected Problems (Last Reviewed 10/27/17 @ 09:21 by Babatunde Maria MD) AK on CKD stage III (Acute) - Physical Exam General: Alert, Oriented x3, Cooperative HEENT: Atraumatic, PERRLA, EOMI, Normocephalic Neck: Supple, No JVD, Negative Carotid Bruits Lungs: Clear to auscultation, Normal air movement Cardiovascular: Regular rate, No murmurs Abdomen: Bowel Sounds Present, Soft, Non Tender Extremities: No edema, Capillary Refill Less than 3 Seconds Skin: No rashes, No breakdown Musculoskeletal: No Tenderness to Palpation of Joints or Extremities Neurological: Cranial nerves II-XII grossly intact Psych/Mental Status: Normal Affect, Appropriate Vital Signs Temp Pulse Resp BP Pulse Ox 98.1 F 56 L 18 105/48 L 92 02/17/18 14:43 02/17/18 14:43 02/17/18 14:43 02/17/18 14:43 02/17/18 14:43 Oxygen Delivery Method Room Air Weight: 105.9 kg Body Mass Index (BMI) 38.8 Finger Stick Blood Glucose 98 Intake and Output for Last 24 Hours 02/15/18 02/16/18 02/17/18 23:59 23:59 23:59 Intake Total 2409 / 2409 Output Total 3350 / 3350 Balance -941 / -941 Laboratory Tests Past 24 Hrs 02/16/18 02/16/18 02/16/18 17:32 17:32 17:32 WBC RBC Hgb Hct MCV MCH MCHC RDW RDW Differential Plt Count MPV Immature Gran % (Auto) Neut % (Auto) Lymph % (Auto) [place] % (Auto) Eos % (Auto) Baso % (Auto) Absolute Neuts (auto) Absolute Lymphs (auto) Total Counted Sodium Potassium Chloride Carbon Dioxide Anion Gap BUN Creatinine Estim Creat Clear Calc Est GFR (MDRD) Af Amer Est GFR (MDRD) Non-Af BUN/Creatinine Ratio Glucose Calcium Urine Color Yellow Urine Clarity Clear Urine pH 5.0 Ur Specific [place] 1.015 Urine Protein Negative Urine Glucose (UA) Normal Urine Ketones Negative Urine Occult Blood Negative Urine Nitrite Negative Urine Bilirubin Negative Urine Urobilinogen Normal Ur Leukocyte Esterase Negative Urine RBC 0 SEEN Urine WBC 0 SEEN Ur Squamous Epith Cells 0 SEEN Urine Bacteria 0 SEEN Urine Mucus 0 SEEN Urine Osmolality 424 U Random Total Protein Ur Random Sodium Urine Creatinine 114.00 Urine Potassium Urine Chloride Urine Urea Nitrogen 02/16/18 02/16/18 02/16/18 17:32 17:32 17:32 WBC RBC Hgb Hct MCV MCH MCHC RDW RDW Differential Plt Count MPV Immature Gran % (Auto) Neut % (Auto) Lymph % (Auto) [place] % (Auto) Eos % (Auto) Baso % (Auto) Absolute Neuts (auto) Absolute Lymphs (auto) Total Counted Sodium Potassium Chloride Carbon Dioxide Anion Gap BUN Creatinine Estim Creat Clear Calc Est GFR (MDRD) Af Amer Est GFR (MDRD) Non-Af BUN/Creatinine Ratio Glucose Calcium Urine Color Urine Clarity Urine pH Ur Specific [place] Urine Protein Urine Glucose (UA) Urine Ketones Urine Occult Blood Urine Nitrite Urine Bilirubin Urine Urobilinogen Ur Leukocyte Esterase Urine RBC Urine WBC Ur Squamous Epith Cells Urine Bacteria Urine Mucus Urine Osmolality U Random Total Protein 7.0 Ur Random Sodium 38 Urine Creatinine Urine Potassium 26.0 Urine Chloride 37 Urine Urea Nitrogen 672 02/16/18 02/16/18 02/17/18 17:38 17:38 06:45 WBC 4.9 3.7 L RBC 4.46 L 3.96 L Hgb 14.9 13.4 Hct 44.0 39.2 L MCV 98.7 H 99.0 H MCH 33.4 H 33.8 H MCHC 33.9 34.2 RDW 13.6 13.4 RDW Differential 48.9 H 47.5 H Plt Count 154 124 L MPV 10.1 9.2 Immature Gran % (Auto) 0.000 0.000 Neut % (Auto) 61.9 58.1 Lymph % (Auto) 24.0 28.0 [place] % (Auto) 9.4 8.2 Eos % (Auto) 4.5 5.4 H Baso % (Auto) 0.2 0.3 Absolute Neuts (auto) 3.0 2.1 Absolute Lymphs (auto) 1.17 1.03 Total Counted Not Reportable Not Reportable Sodium 134 L Potassium 4.4 Chloride 96 L Carbon Dioxide 28.0 Anion Gap 10 BUN 103 H* Creatinine 3.56 H Estim Creat Clear Calc 17.04 Est GFR (MDRD) Af Amer 22 L Est GFR (MDRD) Non-Af 18 L BUN/Creatinine Ratio 28.9 H Glucose 96 Calcium 8.9 Urine Color Urine Clarity Urine pH Ur Specific [place] Urine Protein Urine Glucose (UA) Urine Ketones Urine Occult Blood Urine Nitrite Urine Bilirubin Urine Urobilinogen Ur Leukocyte Esterase Urine RBC Urine WBC Ur Squamous Epith Cells Urine Bacteria Urine Mucus Urine Osmolality U Random Total Protein Ur Random Sodium Urine Creatinine Urine Potassium Urine Chloride Urine Urea Nitrogen 02/17/18 06:45 WBC RBC Hgb Hct MCV MCH MCHC RDW RDW Differential Plt Count MPV Immature Gran % (Auto) Neut % (Auto) Lymph % (Auto) [place] % (Auto) Eos % (Auto) Baso % (Auto) Absolute Neuts (auto) Absolute Lymphs (auto) Total Counted Sodium 139 Potassium 4.7 Chloride 105 Carbon Dioxide 25.0 Anion Gap 9 BUN 95 H Creatinine 2.33 H Estim Creat Clear Calc 26.03 Est GFR (MDRD) Af Amer 36 L Est GFR (MDRD) Non-Af 30 L BUN/Creatinine Ratio 40.8 H Glucose 86 Calcium 8.1 L Urine Color Urine Clarity Urine pH Ur Specific [place] Urine Protein Urine Glucose (UA) Urine Ketones Urine Occult Blood Urine Nitrite Urine Bilirubin Urine Urobilinogen Ur Leukocyte Esterase Urine RBC Urine WBC Ur Squamous Epith Cells Urine Bacteria Urine Mucus Urine Osmolality U Random Total Protein Ur Random Sodium Urine Creatinine Urine Potassium Urine Chloride Urine Urea Nitrogen Assessment/Plan All Active Problems (Last Reviewed 10/27/17 @ 09:21 by Babatunde Maria MD) AK on CKD stage III (Acute) H/O shoulder replacement (Resolved) Blood loss anemia (Resolved) Supratherapeutic INR (Resolved) REGINO CKD stage 3 Baseline creatinine is around 1.6 or so. no clear precipitant for REGINO as per history. no urinary complaints. BUN and cr are significantly better. UA is completely benign. BP is on lower side. he is on lasix but he has been on same dose for a long time. Same with lisinopril. UA is completely benign Prior abdomen imaging is ok cr and BUN are significantly better Plan continue fluids one more day if BUN and Cr better tomorrow, ok to dc will repeat BMP 1 week after should still be ok for surgery on 03/07/18 d/w Dr Carter
--- NOTE | 2018-02-17 16:15 | CON.PCM_ITS ---
Problem List (1) AK on CKD stage III Status: Acute Consultation - Renal 02/17/18 PCP/ Referring MD: Requesting physician: Dr Smith Primary care physician: Jazz Rodas Reason for Consultation:: REGINO - History of Present Illness History of Present Illness: The patient is a 67 year old M who was admitted after outpatient lab work showed REGINO. has history of back pain, was scheduled for surgery on 03/07/18. has routine blood work drawn as part of pre op physical and this showed REGINO hence he was referred to ER. patient is completely asymptomatic no urinary complaints no new meds no swelling issues no NSAIDs last time any med was started was last year - Allergies Allergies: Allergies gabapentin Adverse Reaction (Verified 02/16/18 17:06) Other made me nuts warfarin [From Coumadin] Adverse Reaction (Verified 02/16/18 17:06) very sensitive, high INR and GI bleed - Current Medications Current Medications: Current Medications Al Hydroxide/Mg Hydroxide (Mylanta Ii) 30 ml PO Q6H PRN PRN PRN Reason: Gastric burning Apixaban (Eliquis) 5 mg PO BID [facility] Last Admin: 02/17/18 08:35 Dose: 5 mg Aspirin (Ecotrin) 81 mg PO QHS [facility] Last Admin: 02/16/18 21:54 Dose: 81 mg Atenolol (Tenormin (Beta Ariadna)) 25 mg PO DAILY [facility] Last Admin: 02/17/18 08:36 Dose: 25 mg Atorvastatin Calcium (Lipitor) 40 mg PO QHS [facility] Last Admin: 02/16/18 21:54 Dose: 40 mg Cholecalciferol (Vitamin D) 5,000 unit PO SUPPER [facility] Citalopram Hydrobromide (Celexa) 10 mg PO DAILY [facility] Last Admin: 02/17/18 08:35 Dose: 10 mg Sodium Chloride () 1,000 mls @ 150 mls/hr IV .Q6H40M [facility] Last Admin: 02/17/18 11:31 Dose: 150 mls/hr Modafinil (Provigil) 200 mg PO BID@0800,1200 [facility] Last Admin: 02/17/18 11:19 Dose: Not Given [facility] Last Admin: 02/17/18 08:35 Dose: 1 tablet Ondansetron HCl (Zofran) 4 mg IV Q8H PRN PRN PRN Reason: NAUSEA Pantoprazole Sodium (Protonix) 40 mg PO DAILY PRN PRN PRN Reason: GI CRAMPING Promethazine HCl (Phenergan) 12.5 mg IV Q6H PRN PRN PRN Reason: NAUSEA/VOMITING Psyllium Hydrophilic Mucilloid (Metamucil) 1 packet PO DAILY PRN PRN PRN Reason: CONSTIPATION Senna/Docusate Sodium (Senokot-S, Liv-Colace) 2 tablet PO BID PRN PRN PRN Reason: Constipation Sodium Chloride () 5 - 30 ml IV UD PRN PRN Reason: SALINE FLUSH Zolpidem Tartrate (Ambien (Generic)) 5 mg PO QHS PRN PRN PRN Reason: INSOMNIA - Past Medical History Past Medical History (Chronic Problems): Chronic Problems (Last Reviewed 10/27/17 @ 09:21 by Babatunde Maria MD) History of left heart catheterization (LHC) (Chronic) 03/1997, 03/2004, 07/21/2011 History of transurethral resection of prostate (Chronic) History of coronary artery bypass surgery (Chronic) HLD (hyperlipidemia) (Chronic) HTN (hypertension) (Chronic) Atherosclerosis of coronary artery bypass graft without angina pectoris (Chronic) Renal disease (Chronic) Presence of aortocoronary bypass graft (Chronic) CABG 03/20/1997 BETHEA to LAD, Reverse SVG to CX and to DX Persistent atrial fibrillation (Chronic) Dyspnea (Chronic) Sleep apnea (Chronic) Occlusion and stenosis of left carotid artery (Chronic) Atherosclerotic heart disease of [place] coronary artery without angina pectoris (Chronic) CABG 03/20/1997 BETHEA to LAD, Reverse SVG to CX and to DX, C 07/21/2011 Obesity (BMI 30-39.9) (Chronic) Anxiety and depression (Chronic) Atrial fibrillation and flutter (Chronic) s/p ablation x 2 (flutter and fibrillation) PAD (peripheral artery disease) (Chronic) s/p BL LE common iliac stenting Acute alcohol intoxication (Chronic) Rotator cuff tear arthropathy of right shoulder (Chronic) Slurred speech (Chronic) pad with stents leg (Chronic) - Past Surgical History Surgical History: coronary bypass surgery, - - Jaw ointment, bilateral lower extremity common iliac stenting, CABG ?3, nasal surgery, TURP, ablation ?2, total reverse shoulder replacement, ulnar nerve repair. - Social History Smoking Status: Former smoker - Family History Paternal Family History: Family History (Last Reviewed 10/27/17 @ 09:21 by Babatunde Maria MD) Father Myocardial infarction Heart disease Mother CAD (coronary artery disease) Brother CAD (coronary artery disease) Diabetes Hx of CABG Sister Hypertension Pulmonary embolism History Items: Heart Disease, Hypertension Maternal Family History: Family History (Last Reviewed 10/27/17 @ 09:21 by Babatunde Maria MD) Father Myocardial infarction Heart disease Mother CAD (coronary artery disease) Brother CAD (coronary artery disease) Diabetes Hx of CABG Sister Hypertension Pulmonary embolism History Items: Stroke Review of Systems Constitutional: Denies: Chills, Fever, Weight Change HEENT: Denies: Head Aches, Sinus Congestion, Sinus Drainage Cardiovascular: Denies: Chest Pain, Palpitations Respiratory: Denies: Cough, Shortness of breath at rest, Sputum production Gastrointestinal: Denies: Abdominal Pain, Nausea, Vomiting Genitourinary: Denies: Dysuria Musculoskeletal: Denies: Joint Pain, Joint Tenderness Skin: Denies: Rash, Wounds Neurological: Denies: Numbness, Tingling, Focal weakness Psychiatric: Denies: Anxiety, Depression, Homicidal Ideations, Suicidal Ideations Hematologic/ Lymphatic: Denies: Easy Bruising, Easy Bleeding Patient Problems: Active and Suspected Problems (Last Reviewed 10/27/17 @ 09:21 by Babatunde Maria MD) AK on CKD stage III (Acute) - Physical Exam General: Alert, Oriented x3, Cooperative HEENT: Atraumatic, PERRLA, EOMI, Normocephalic Neck: Supple, No JVD, Negative Carotid Bruits Lungs: Clear to auscultation, Normal air movement Cardiovascular: Regular rate, No murmurs Abdomen: Bowel Sounds Present, Soft, Non Tender Extremities: No edema, Capillary Refill Less than 3 Seconds Skin: No rashes, No breakdown Musculoskeletal: No Tenderness to Palpation of Joints or Extremities Neurological: Cranial nerves II-XII grossly intact Psych/Mental Status: Normal Affect, Appropriate Vital Signs Temp Pulse Resp BP Pulse Ox 98.1 F 56 L 18 105/48 L 92 02/17/18 14:43 02/17/18 14:43 02/17/18 14:43 02/17/18 14:43 02/17/18 14:43 Oxygen Delivery Method Room Air Weight: 105.9 kg Body Mass Index (BMI) 38.8 Finger Stick Blood Glucose 98 Intake and Output for Last 24 Hours 02/15/18 02/16/18 02/17/18 23:59 23:59 23:59 Intake Total 2409 / 2409 Output Total 3350 / 3350 Balance -941 / -941 Laboratory Tests Past 24 Hrs 02/16/18 02/16/18 02/16/18 17:32 17:32 17:32 WBC RBC Hgb Hct MCV MCH MCHC RDW RDW Differential Plt Count MPV Immature Gran % (Auto) Neut % (Auto) Lymph % (Auto) [place] % (Auto) Eos % (Auto) Baso % (Auto) Absolute Neuts (auto) Absolute Lymphs (auto) Total Counted Sodium Potassium Chloride Carbon Dioxide Anion Gap BUN Creatinine Estim Creat Clear Calc Est GFR (MDRD) Af Amer Est GFR (MDRD) Non-Af BUN/Creatinine Ratio Glucose Calcium Urine Color Yellow Urine Clarity Clear Urine pH 5.0 Ur Specific [place] 1.015 Urine Protein Negative Urine Glucose (UA) Normal Urine Ketones Negative Urine Occult Blood Negative Urine Nitrite Negative Urine Bilirubin Negative Urine Urobilinogen Normal Ur Leukocyte Esterase Negative Urine RBC 0 SEEN Urine WBC 0 SEEN Ur Squamous Epith Cells 0 SEEN Urine Bacteria 0 SEEN Urine Mucus 0 SEEN Urine Osmolality 424 U Random Total Protein Ur Random Sodium Urine Creatinine 114.00 Urine Potassium Urine Chloride Urine Urea Nitrogen 02/16/18 02/16/18 02/16/18 17:32 17:32 17:32 WBC RBC Hgb Hct MCV MCH MCHC RDW RDW Differential Plt Count MPV Immature Gran % (Auto) Neut % (Auto) Lymph % (Auto) [place] % (Auto) Eos % (Auto) Baso % (Auto) Absolute Neuts (auto) Absolute Lymphs (auto) Total Counted Sodium Potassium Chloride Carbon Dioxide Anion Gap BUN Creatinine Estim Creat Clear Calc Est GFR (MDRD) Af Amer Est GFR (MDRD) Non-Af BUN/Creatinine Ratio Glucose Calcium Urine Color Urine Clarity Urine pH Ur Specific [place] Urine Protein Urine Glucose (UA) Urine Ketones Urine Occult Blood Urine Nitrite Urine Bilirubin Urine Urobilinogen Ur Leukocyte Esterase Urine RBC Urine WBC Ur Squamous Epith Cells Urine Bacteria Urine Mucus Urine Osmolality U Random Total Protein 7.0 Ur Random Sodium 38 Urine Creatinine Urine Potassium 26.0 Urine Chloride 37 Urine Urea Nitrogen 672 02/16/18 02/16/18 02/17/18 17:38 17:38 06:45 WBC 4.9 3.7 L RBC 4.46 L 3.96 L Hgb 14.9 13.4 Hct 44.0 39.2 L MCV 98.7 H 99.0 H MCH 33.4 H 33.8 H MCHC 33.9 34.2 RDW 13.6 13.4 RDW Differential 48.9 H 47.5 H Plt Count 154 124 L MPV 10.1 9.2 Immature Gran % (Auto) 0.000 0.000 Neut % (Auto) 61.9 58.1 Lymph % (Auto) 24.0 28.0 [place] % (Auto) 9.4 8.2 Eos % (Auto) 4.5 5.4 H Baso % (Auto) 0.2 0.3 Absolute Neuts (auto) 3.0 2.1 Absolute Lymphs (auto) 1.17 1.03 Total Counted Not Reportable Not Reportable Sodium 134 L Potassium 4.4 Chloride 96 L Carbon Dioxide 28.0 Anion Gap 10 BUN 103 H* Creatinine 3.56 H Estim Creat Clear Calc 17.04 Est GFR (MDRD) Af Amer 22 L Est GFR (MDRD) Non-Af 18 L BUN/Creatinine Ratio 28.9 H Glucose 96 Calcium 8.9 Urine Color Urine Clarity Urine pH Ur Specific [place] Urine Protein Urine Glucose (UA) Urine Ketones Urine Occult Blood Urine Nitrite Urine Bilirubin Urine Urobilinogen Ur Leukocyte Esterase Urine RBC Urine WBC Ur Squamous Epith Cells Urine Bacteria Urine Mucus Urine Osmolality U Random Total Protein Ur Random Sodium Urine Creatinine Urine Potassium Urine Chloride Urine Urea Nitrogen 02/17/18 06:45 WBC RBC Hgb Hct MCV MCH MCHC RDW RDW Differential Plt Count MPV Immature Gran % (Auto) Neut % (Auto) Lymph % (Auto) [place] % (Auto) Eos % (Auto) Baso % (Auto) Absolute Neuts (auto) Absolute Lymphs (auto) Total Counted Sodium 139 Potassium 4.7 Chloride 105 Carbon Dioxide 25.0 Anion Gap 9 BUN 95 H Creatinine 2.33 H Estim Creat Clear Calc 26.03 Est GFR (MDRD) Af Amer 36 L Est GFR (MDRD) Non-Af 30 L BUN/Creatinine Ratio 40.8 H Glucose 86 Calcium 8.1 L Urine Color Urine Clarity Urine pH Ur Specific [place] Urine Protein Urine Glucose (UA) Urine Ketones Urine Occult Blood Urine Nitrite Urine Bilirubin Urine Urobilinogen Ur Leukocyte Esterase Urine RBC Urine WBC Ur Squamous Epith Cells Urine Bacteria Urine Mucus Urine Osmolality U Random Total Protein Ur Random Sodium Urine Creatinine Urine Potassium Urine Chloride Urine Urea Nitrogen Assessment/Plan All Active Problems (Last Reviewed 10/27/17 @ 09:21 by Babatunde Maria MD) AK on CKD stage III (Acute) H/O shoulder replacement (Resolved) Blood loss anemia (Resolved) Supratherapeutic INR (Resolved) REGINO CKD stage 3 Baseline creatinine is around 1.6 or so. no clear precipitant for REGINO as per history. no urinary complaints. BUN and cr are significantly better. UA is completely benign. BP is on lower side. he is on lasix but he has been on same dose for a long time. Same with lisinopril. UA is completely benign Prior abdomen imaging is ok cr and BUN are significantly better Plan continue fluids one more day if BUN and Cr better tomorrow, ok to dc will repeat BMP 1 week after should still be ok for surgery on 03/07/18 d/w Dr Carter
[2018-02-17 21:41] VITALS: BP 126/58; PULSE 61; RESP 16; TEMP 36.4; O2SAT 95
[2018-02-17] MEDS: Atorvastatin Calcium 40 MG Tablet PO (21:59)
[2018-02-17] MEDS: Aspirin E.C. 81 MG Tablet PO (21:59)
[2018-02-18] MEDS: 0.9% Normal Saline 1,000 ML 150 ML IV ×2 (01:28→07:34)
[2018-02-18 02:36] VITALS: BP 122/54; PULSE 61; RESP 14; TEMP 36.6; O2SAT 100
--- NOTE | 2018-02-18 07:33 | DCINST_ITS ---
- Discharge Diagnoses Current Active Problems: Current Active and Chronic Problems (Last Reviewed 10/27/17 @ 09:21 by Babatunde Maria MD) AK on CKD stage III (Acute) You will use the following diet at home:: Cardiac Allergies/Adverse Reactions: Allergies gabapentin Adverse Reaction (Verified 02/16/18 17:06) Other made me nuts warfarin [From Coumadin] Adverse Reaction (Verified 02/16/18 17:06) very sensitive, high INR and GI bleed Medications to take at Discharge Aspirin E.C. [Ecotrin] 81 mg PO QHS 01/22/15 Modafinil [Provigil] 200 mg PO BID 01/22/15 Multivitamins,Therapeutic [Multivitamin] 1 tab PO DAILY 01/22/15 Cholecalciferol (Vitamin D3) [Vitamin D3] 5,000 unit PO DAILY 06/23/16 pantoprazole 40 mg tablet,delayed release 40 mg PO PRN PRN 30 Days #30 04/14/17 fenofibrate 54 mg tablet 54 mg PO QHS #90 tab 06/27/17 atorvastatin 40 mg tablet 40 mg PO DAILY #90 tab 07/04/17 atenolol 25 mg tablet 25 mg PO DAILY #90 tab 08/22/17 apixaban 5 mg tablet 5 mg PO BID 30 Days #60 tab 11/03/17 Citalopram Hydrobromide [Citalopram HBr] 10 mg PO DAILY 02/16/18 Primary Care Physician: Jazz Rodas DO [Primary Care Provider] - Please follow up with your Primary Care Physician in: in 3-5 days for repeat labs Test Results: Test results from this visit will be discussed in further detail at your follow- up appointment, if applicable. Please Follow Up With: Ramiro Gregory MD When: in 1-2 weeks Proposed Discharge Date: 02/18/18
--- NOTE | 2018-02-18 07:33 | DS.PCM_ITS ---
Discharge Date and Diagnosis - Problem List Patient Problems: Active and Suspected Problems (Last Reviewed 10/27/17 @ 09:21 by Babatunde Maria MD) AK on CKD stage III (Acute) Date of Admission: 02/16/18 Date of Discharge: 02/18/18 - Primary Discharge Diagnosis Active and Suspected Problems (Last Reviewed 10/27/17 @ 09:21 by Babatunde Maria MD) AK on CKD stage III (Acute) - Secondary Discharge Diagnosis Chronic Problems (Last Reviewed 10/27/17 @ 09:21 by Babatunde Maria MD) History of left heart catheterization (LHC) (Chronic) 03/1997, 03/2004, 07/21/2011 History of transurethral resection of prostate (Chronic) History of coronary artery bypass surgery (Chronic) HLD (hyperlipidemia) (Chronic) HTN (hypertension) (Chronic) Atherosclerosis of coronary artery bypass graft without angina pectoris (Chronic) Renal disease (Chronic) Presence of aortocoronary bypass graft (Chronic) CABG 03/20/1997 BETHEA to LAD, Reverse SVG to CX and to DX Persistent atrial fibrillation (Chronic) Dyspnea (Chronic) Sleep apnea (Chronic) Occlusion and stenosis of left carotid artery (Chronic) Atherosclerotic heart disease of [place] coronary artery without angina pectoris (Chronic) CABG 03/20/1997 BETHEA to LAD, Reverse SVG to CX and to DX, C 07/21/2011 Obesity (BMI 30-39.9) (Chronic) Anxiety and depression (Chronic) Atrial fibrillation and flutter (Chronic) s/p ablation x 2 (flutter and fibrillation) PAD (peripheral artery disease) (Chronic) s/p BL LE common iliac stenting Acute alcohol intoxication (Chronic) Rotator cuff tear arthropathy of right shoulder (Chronic) Slurred speech (Chronic) pad with stents leg (Chronic) Hospital Course and Treatment Imaging Results: Laboratory Tests 02/18/18 02/17/18 02/17/18 Range/Units 06:57 06:45 06:45 WBC 3.7 L (4.4-11.0) K/mm3 RBC 3.96 L (4.6-6.2) M/mm3 Hgb 13.4 (13.0-16.5) g/dl Hct 39.2 L (40-54) % MCV 99.0 H (80-94) fL MCH 33.8 H (27.0-32.0) pg MCHC 34.2 (32-36) g/gl RDW 13.4 (11.6-14.6) % RDW Differential 47.5 H (35.1-43.9) fl Plt Count 124 L (150-450) K/mm3 MPV 9.2 (6.2-12.0) fl Immature Gran % (Auto) 0.000 (0.0-0.9) % Neut % (Auto) 58.1 (47-70) % Lymph % (Auto) 28.0 (19-41) % [place] % (Auto) 8.2 (0-10) % Eos % (Auto) 5.4 H (0-5) % Baso % (Auto) 0.3 (0-1) % Absolute Neuts (auto) 2.1 (2.0-7.7) X10^3/uL Absolute Lymphs (auto) 1.03 (0.83-4.51) X10^3/ul Total Counted Not Reportable Sodium 143 139 (136-145) mmol/L Potassium 4.9 4.7 (3.5-5.1) mmol/L Chloride 110 H 105 (98-107) mmol/L Carbon Dioxide 24.0 25.0 (21.0-32.0) mmol/L Anion Gap 9 9 (5-15) BUN 61 H 95 H (7-18) mg/dL Creatinine 1.38 H 2.33 H (0.70-1.30) mg/dL Estim Creat Clear Calc 43.95 26.03 ml/min Est GFR (MDRD) Af Amer 66 36 L (>60) mL/min Est GFR (MDRD) Non-Af 54 L 30 L (>60) mL/min BUN/Creatinine Ratio 44.2 H 40.8 H (10-20) RATIO Glucose 89 86 (74-106) mg/dL Calcium 8.5 8.1 L (8.5-10.1) mg/dL Urine Color (Yellow) Urine Clarity (Clear) Urine pH (5.0 - 8.0) Ur Specific [place] (1.002-1.030) Urine Protein (Negative) mg/dl Urine Glucose (UA) (Normal) mg/dl Urine Ketones (Negative) mg/dl Urine Occult Blood (Negative) /ul Urine Nitrite (Negative) Urine Bilirubin (Negative) mg/dL Urine Urobilinogen (Normal) mg/dl Ur Leukocyte Esterase (Negative) /ul Urine RBC (0-5) /hpf Urine WBC (0-5) /hpf Ur Squamous Epith Cells (0-5) /hpf Urine Bacteria (None Seen) /hpf Urine Mucus (<or=2+) /hpf Urine Osmolality (50 - ) mOsm/KG U Random Total Protein (<11.9) mg/dL Ur Random Sodium (Not Establ.) mmol/L Urine Creatinine (NO RANGE EST.) mg/dL Urine Potassium (Not Establ.) mmol/L Urine Chloride (Not Establ.) mmol/L Urine Urea Nitrogen (NO RANGE EST.) mg/dL 02/16/18 02/16/18 02/16/18 Range/Units 17:38 17:38 17:32 WBC 4.9 (4.4-11.0) K/mm3 RBC 4.46 L (4.6-6.2) M/mm3 Hgb 14.9 (13.0-16.5) g/dl Hct 44.0 (40-54) % MCV 98.7 H (80-94) fL MCH 33.4 H (27.0-32.0) pg MCHC 33.9 (32-36) g/gl RDW 13.6 (11.6-14.6) % RDW Differential 48.9 H (35.1-43.9) fl Plt Count 154 (150-450) K/mm3 MPV 10.1 (6.2-12.0) fl Immature Gran % (Auto) 0.000 (0.0-0.9) % Neut % (Auto) 61.9 (47-70) % Lymph % (Auto) 24.0 (19-41) % [place] % (Auto) 9.4 (0-10) % Eos % (Auto) 4.5 (0-5) % Baso % (Auto) 0.2 (0-1) % Absolute Neuts (auto) 3.0 (2.0-7.7) X10^3/uL Absolute Lymphs (auto) 1.17 (0.83-4.51) X10^3/ul Total Counted Not Reportable Sodium 134 L (136-145) mmol/L Potassium 4.4 (3.5-5.1) mmol/L Chloride 96 L (98-107) mmol/L Carbon Dioxide 28.0 (21.0-32.0) mmol/L Anion Gap 10 (5-15) BUN 103 H* (7-18) mg/dL Creatinine 3.56 H (0.70-1.30) mg/dL Estim Creat Clear Calc 17.04 ml/min Est GFR (MDRD) Af Amer 22 L (>60) mL/min Est GFR (MDRD) Non-Af 18 L (>60) mL/min BUN/Creatinine Ratio 28.9 H (10-20) RATIO Glucose 96 (74-106) mg/dL Calcium 8.9 (8.5-10.1) mg/dL Urine Color (Yellow) Urine Clarity (Clear) Urine pH (5.0 - 8.0) Ur Specific [place] (1.002-1.030) Urine Protein (Negative) mg/dl Urine Glucose (UA) (Normal) mg/dl Urine Ketones (Negative) mg/dl Urine Occult Blood (Negative) /ul Urine Nitrite (Negative) Urine Bilirubin (Negative) mg/dL Urine Urobilinogen (Normal) mg/dl Ur Leukocyte Esterase (Negative) /ul Urine RBC (0-5) /hpf Urine WBC (0-5) /hpf Ur Squamous Epith Cells (0-5) /hpf Urine Bacteria (None Seen) /hpf Urine Mucus (<or=2+) /hpf Urine Osmolality (50 - ) mOsm/KG U Random Total Protein (<11.9) mg/dL Ur Random Sodium 38 (Not Establ.) mmol/L Urine Creatinine (NO RANGE EST.) mg/dL Urine Potassium 26.0 (Not Establ.) mmol/L Urine Chloride 37 (Not Establ.) mmol/L Urine Urea Nitrogen (NO RANGE EST.) mg/dL 02/16/18 02/16/18 02/16/18 Range/Units 17:32 17:32 17:32 WBC (4.4-11.0) K/mm3 RBC (4.6-6.2) M/mm3 Hgb (13.0-16.5) g/dl Hct (40-54) % MCV (80-94) fL MCH (27.0-32.0) pg MCHC (32-36) g/gl RDW (11.6-14.6) % RDW Differential (35.1-43.9) fl Plt Count (150-450) K/mm3 MPV (6.2-12.0) fl Immature Gran % (Auto) (0.0-0.9) % Neut % (Auto) (47-70) % Lymph % (Auto) (19-41) % [place] % (Auto) (0-10) % Eos % (Auto) (0-5) % Baso % (Auto) (0-1) % Absolute Neuts (auto) (2.0-7.7) X10^3/uL Absolute Lymphs (auto) (0.83-4.51) X10^3/ul Total Counted Sodium (136-145) mmol/L Potassium (3.5-5.1) mmol/L Chloride (98-107) mmol/L Carbon Dioxide (21.0-32.0) mmol/L Anion Gap (5-15) BUN (7-18) mg/dL Creatinine (0.70-1.30) mg/dL Estim Creat Clear Calc ml/min Est GFR (MDRD) Af Amer (>60) mL/min Est GFR (MDRD) Non-Af (>60) mL/min BUN/Creatinine Ratio (10-20) RATIO Glucose (74-106) mg/dL Calcium (8.5-10.1) mg/dL Urine Color (Yellow) Urine Clarity (Clear) Urine pH (5.0 - 8.0) Ur Specific [place] (1.002-1.030) Urine Protein (Negative) mg/dl Urine Glucose (UA) (Normal) mg/dl Urine Ketones (Negative) mg/dl Urine Occult Blood (Negative) /ul Urine Nitrite (Negative) Urine Bilirubin (Negative) mg/dL Urine Urobilinogen (Normal) mg/dl Ur Leukocyte Esterase (Negative) /ul Urine RBC (0-5) /hpf Urine WBC (0-5) /hpf Ur Squamous Epith Cells (0-5) /hpf Urine Bacteria (None Seen) /hpf Urine Mucus (<or=2+) /hpf Urine Osmolality (50 - ) mOsm/KG U Random Total Protein 7.0 (<11.9) mg/dL Ur Random Sodium (Not Establ.) mmol/L Urine Creatinine 114.00 (NO RANGE EST.) mg/dL Urine Potassium (Not Establ.) mmol/L Urine Chloride (Not Establ.) mmol/L Urine Urea Nitrogen 672 (NO RANGE EST.) mg/dL 02/16/18 02/16/18 Range/Units 17:32 17:32 WBC (4.4-11.0) K/mm3 RBC (4.6-6.2) M/mm3 Hgb (13.0-16.5) g/dl Hct (40-54) % MCV (80-94) fL MCH (27.0-32.0) pg MCHC (32-36) g/gl RDW (11.6-14.6) % RDW Differential (35.1-43.9) fl Plt Count (150-450) K/mm3 MPV (6.2-12.0) fl Immature Gran % (Auto) (0.0-0.9) % Neut % (Auto) (47-70) % Lymph % (Auto) (19-41) % [place] % (Auto) (0-10) % Eos % (Auto) (0-5) % Baso % (Auto) (0-1) % Absolute Neuts (auto) (2.0-7.7) X10^3/uL Absolute Lymphs (auto) (0.83-4.51) X10^3/ul Total Counted Sodium (136-145) mmol/L Potassium (3.5-5.1) mmol/L Chloride (98-107) mmol/L Carbon Dioxide (21.0-32.0) mmol/L Anion Gap (5-15) BUN (7-18) mg/dL Creatinine (0.70-1.30) mg/dL Estim Creat Clear Calc ml/min Est GFR (MDRD) Af Amer (>60) mL/min Est GFR (MDRD) Non-Af (>60) mL/min BUN/Creatinine Ratio (10-20) RATIO Glucose (74-106) mg/dL Calcium (8.5-10.1) mg/dL Urine Color Yellow (Yellow) Urine Clarity Clear (Clear) Urine pH 5.0 (5.0 - 8.0) Ur Specific [place] 1.015 (1.002-1.030) Urine Protein Negative (Negative) mg/dl Urine Glucose (UA) Normal (Normal) mg/dl Urine Ketones Negative (Negative) mg/dl Urine Occult Blood Negative (Negative) /ul Urine Nitrite Negative (Negative) Urine Bilirubin Negative (Negative) mg/dL Urine Urobilinogen Normal (Normal) mg/dl Ur Leukocyte Esterase Negative (Negative) /ul Urine RBC 0 SEEN (0-5) /hpf Urine WBC 0 SEEN (0-5) /hpf Ur Squamous Epith Cells 0 SEEN (0-5) /hpf Urine Bacteria 0 SEEN (None Seen) /hpf Urine Mucus 0 SEEN (<or=2+) /hpf Urine Osmolality 424 (50 - ) mOsm/KG U Random Total Protein (<11.9) mg/dL Ur Random Sodium (Not Establ.) mmol/L Urine Creatinine (NO RANGE EST.) mg/dL Urine Potassium (Not Establ.) mmol/L Urine Chloride (Not Establ.) mmol/L Urine Urea Nitrogen (NO RANGE EST.) mg/dL Summary of Care Provided: Patient is a 67-year-old gentleman with multiple comorbidities was undergoing preop evaluation for an upcoming surgery patient was noted to have abnormal labs sent to the ED for subsequent management patient was found to be in acute kidney injury started on IV fluids and admitted to regular nursing floor for further management 1. Acute kidney injury secondary to medication induced kidney injury patient was on both lisinopril as well as diuretics furosemide suspected offending medic ations held on admission patient started on IV fluids with monitoring of electrolyte consultation was placed to nephrology. Patient kidney function did improve with holding of lisinopril and Lasix as well as with IV fluids. Plan is for patient to follow-up with Dr. Rodas his primary care physician for subsequent care 2. CAD with previous CABG (CABG 03/20/1997 BETHEA to LAD, Reverse SVG to CX and to DX, C 07/21/2011) 3. Peripheral arterial disease with bilateral lower extremity common iliac stenting 4. Hypertension-blood pressure controlled, home medications continued except for lisinopril 5. Dyslipidemia-patient is on statin therapy, continued at home dose 6. Paroxysmal A. fib: Rate controlled also systemic anticoagulation with Eliquis 7. Obstructive sleep apnea patient is on CPAP at night 6. Obesity with BMI of 38.9 7. Chronic kidney disease stage III suspected to be secondary to hypertensive nephrosclerosis baseline creatinine 1.6-1.8 8. Rotator cuff tear arthropathy of right shoulder ; status post right shoulder replacement 9. BPH with previous TURP 10. Carotid artery disease 11. Depression with anxiety 12. DVT prophylaxis patient is on Eliquis no need for additional measures Patient Problems: Active and Suspected Problems (Last Reviewed 10/27/17 @ 09:21 by Babatunde Maria MD) [place] on CKD stage III (Acute) - Physical Exam General: Oriented x3 HEENT: Atraumatic Neck: Supple Lungs: Normal air movement Cardiovascular: Regular rate Neurological: Neuro grossly intact Psych/Mental Status: Normal Affect Vital Signs Temp Pulse Resp BP Pulse Ox 97.9 F 61 14 122/54 H 100 02/18/18 02:36 02/18/18 02:36 02/18/18 02:36 02/18/18 02:36 02/18/18 02:36 Oxygen Delivery Method Room Air Weight: 105.9 kg Body Mass Index (BMI) 38.8 Finger Stick Blood Glucose 98 Intake and Output for Last 24 Hours 02/16/18 02/17/18 02/18/18 23:59 23:59 23:59 Intake Total 4477 / 4477 2767 / 2767 Output Total 3800 / 3800 1850 / 1850 Balance 677 / 677 917 / 917 Laboratory Tests Past 24 Hrs 02/18/18 06:57 Sodium Pending Potassium Pending Chloride Pending Carbon Dioxide Pending Anion Gap Pending BUN Pending Creatinine Pending Est GFR (MDRD) Af Amer Pending Est GFR (MDRD) Non-Af Pending BUN/Creatinine Ratio Pending Glucose Pending Calcium Pending Discharge Diet: Low fat/ Low Cholesterol Home Medications: Medications to take at Discharge Aspirin E.C. [Ecotrin] 81 mg PO QHS 01/22/15 Modafinil [Provigil] 200 mg PO BID 01/22/15 Multivitamins,Therapeutic [Multivitamin] 1 tab PO DAILY 01/22/15 Cholecalciferol (Vitamin D3) [Vitamin D3] 5,000 unit PO DAILY 06/23/16 pantoprazole 40 mg tablet,delayed release 40 mg PO PRN PRN 30 Days #30 04/14/17 fenofibrate 54 mg tablet 54 mg PO QHS #90 tab 06/27/17 atorvastatin 40 mg tablet 40 mg PO DAILY #90 tab 07/04/17 atenolol 25 mg tablet 25 mg PO DAILY #90 tab 08/22/17 apixaban 5 mg tablet 5 mg PO BID 30 Days #60 tab 11/03/17 Citalopram Hydrobromide [Citalopram HBr] 10 mg PO DAILY 02/16/18 Primary Care Physician: Jazz Rodas DO [Primary Care Provider] - Please follow up with your Primary Care Physician in: in 3-5 days for repeat labs Please Follow Up With: Ramiro Gregory MD When: in 1-2 weeks Disposition: Home Minutes spent on discharge:: 35 Patient Condition:: Stable Medical Necessity - Tobacco Use Smoking Status: Former smoker Tobacco Use: Cigarettes Meaningful Use Info Meaningful Use Diagnoses (Choose all that apply): None applicable Code Visit Inpatient E&M: 07557 Disch Hosp
[2018-02-18 07:51] LABS: Anion Gap 9 (5-15); BUN 61 mg/dL (7-18); BUN/Creat Ratio 44.2 RATIO (10-20); Calcium,Total 8.5 mg/dL (8.5-10.1); Chloride 110 mmol/L (98-107); Creatinine, Serum 1.38 mg/dL (0.70-1.30); EST Glomerular Filtration Rate 54 mL/min (>60); Est Glom Filt Rate - Afr Amer 66 mL/min (>60); Estimated Creatinine Clearance 43.95 ml/min; Glucose 89 mg/dL (74-106); Potassium 4.9 mmol/L (3.5-5.1); Sodium Level 143 mmol/L (136-145)
[2018-02-18 08:06] VITALS: BP 109/50; PULSE 86; RESP 16; TEMP 36.6; O2SAT 99
--- NOTE | 2018-02-18 09:41 | NURSING ---
pt refused AM meds- states he will take them at home. Reminded of d/c'ed meds- pt and verbalized understanding.
== END 2018-02-18 09:39 | disposition home or self-care (01) | DRG 684 ==
LOC: ED 17:57 → MS2 19:05
PROVIDERS: Admitting Provider Internal Medicine; Emergency Provider Emergency Medicine; Family Provider Internal Medicine; PCP Internal Medicine; Visit Provider Internal Medicine
DX: N17.9 Acute kidney failure, unspecified (principal); E78.5 Hyperlipidemia, unspecified; G47.33 Obstructive sleep apnea (adult) (pediatric); I25.10 Atherosclerotic heart disease of native coronary artery without angina pectoris; E66.01 Morbid (severe) obesity due to excess calories; I73.9 Peripheral vascular disease, unspecified; I12.9 Hypertensive chronic kidney disease with stage 1 through stage 4 chronic kidney disease, or unspecified chronic kidney disease; N18.3 Chronic kidney disease, stage 3 (moderate); Z68.38 Body mass index [BMI] 38.0-38.9, adult; Z95.1 Presence of aortocoronary bypass graft; Z87.891 Personal history of nicotine dependence; Z95.828 Presence of other vascular implants and grafts; F41.8 Other specified anxiety disorders; N40.0 Benign prostatic hyperplasia without lower urinary tract symptoms; T46.4X5A Adverse effect of angiotensin-converting-enzyme inhibitors, initial encounter; T50.1X5A Adverse effect of loop [high-ceiling] diuretics, initial encounter; I48.0 Paroxysmal atrial fibrillation; Z96.611 Presence of right artificial shoulder joint
CPT/HCPCS: 36415; 80048; 81001; 82436; 82570; 83935; 84133; 84156; 84300; 84540; 85025; 93005; 97802; 99284; J7030; A4216

== ENCOUNTER → 2018-02-23 08:21 | Outpatient (CLI) | payer MEDICARE, OTHER, SELFPAY ==
[2018-02-16 19:49] VITALS: BMI 38.8
[2018-02-23 09:41] LABS: Albumin, Serum 3.5 g/dL (3.2-5.0)
[2018-02-23 09:52] LABS: Vitamin D,25 Hydroxy 47.7 ng/mL (29.95-100.01)
[2018-02-23 09:54] LABS: Hemoglobin A1c 5.7 % (4.2-6.3)
== END ==
PROVIDERS: Family Provider Internal Medicine; PCP Internal Medicine; Referring Provider Orthopaedic Surgery Orthopaedic Surgery of the Spine; Visit Provider Orthopaedic Surgery Orthopaedic Surgery of the Spine
DX: E74.39 Other disorders of intestinal carbohydrate absorption (principal); E55.9 Vitamin D deficiency, unspecified; R73.09 Other abnormal glucose
CPT/HCPCS: 36415; 82040; 82306; 83036

== ENCOUNTER → 2018-02-28 16:03 | Outpatient (CLI) | payer MEDICARE, OTHER, SELFPAY ==
[2018-02-28 14:54] VITALS: BMI 37.9
[2018-02-28 17:29] LABS: Anion Gap 7 (5-15); BUN 38 mg/dL (7-18); Calcium,Total 9.9 mg/dL (8.5-10.1); Chloride 97 mmol/L (98-107); Creatinine, Serum 1.52 mg/dL (0.70-1.30); EST Glomerular Filtration Rate 49 mL/min (>60); Est Glom Filt Rate - Afr Amer 59 mL/min (>60); Glucose 98 mg/dL (74-106); Potassium 3.8 mmol/L (3.5-5.1); Sodium Level 134 mmol/L (136-145)
== END ==
PROVIDERS: Family Provider Internal Medicine; PCP Internal Medicine; Visit Provider Physician Assistant Medical
DX: I10 Essential (primary) hypertension (principal); I25.810 Atherosclerosis of coronary artery bypass graft(s) without angina pectoris; E78.5 Hyperlipidemia, unspecified; N28.9 Disorder of kidney and ureter, unspecified
CPT/HCPCS: 36415; 80048

== ENCOUNTER → 2018-04-27 06:40 | Outpatient (CLI) | payer MEDICARE, OTHER, SELFPAY ==
[2018-02-28 14:54] VITALS: BMI 37.9
[2018-04-27 06:48] LABS: Bacteria 0 SEEN /hpf (None Seen); Mucous, Urine 0 SEEN /hpf (<or=2+); Red Blood Cells-Urine 0 SEEN /hpf (0-5); White Blood Cells 0 SEEN /hpf (0-5)
[2018-04-27 07:29] LABS: Absolute Lymphocyte Count 1.24 X10^3/ul (0.83-4.51); Absolute Neutrophil Count 2.3 X10^3/uL (2.0-7.7); Basophil# 0.01 X10^3/uL; Basophil% 0.2 % (0-1); Eosinophil# 0.18 X10^3/uL; Eosinophils% 4.5 % (0-5); Hematocrit 44.3 % (40-54); Hemoglobin 14.2 g/dl (13.0-16.5); Lymphocyte # 1.24 X10^3/ul (4.0); Lymphocyte % 30.8 % (19-41); Mean Corp Hgb Conc 32.1 g/gl (32-36); Mean Corpuscular Hgb 33.4 pg (27.0-32.0); Mean Corpuscular Volume 104.2 fL (80-94); Mean Platelet Vol. 9.3 fl (6.2-12.0); Monocyte# 0.33 X10^3/uL; Monocyte% 8.2 % (0-10); Neutrophil # 2.26 X10^3/uL (2.7-7.7); Neutrophil % 56.1 % (47-70); Platelet Count 140 K/mm3 (150-450); RBC Distribution Width SD 60.5 fl (35.1-43.9); Red Blood Count 4.25 M/mm3 (4.6-6.2)
[2018-04-27 07:30] LABS: POSITIVE COUNT NO; POSITIVE DIFFERENTIAL NO; POSITIVE MORPHOLOGY NO
[2018-04-27 07:41] LABS: Color, Urine Yellow (Yellow); Glucose, Dipstick Normal (Normal); Ketone-Dipstick Negative (Negative); Leukocyte Esterase-Dipstick Negative /ul (Negative); Nitrite-Dipstick Negative (Negative); Occult Blood-Urine Negative /ul (Negative); Protein-Dipstick Negative (Negative); Urine Bilirubin Dipstick Negative (Negative); Urine Clarity Clear (Clear); Urine Urobilinogen Normal (Normal)
[2018-04-27 07:51] LABS: Squamous Epithelial Cells - UA 0-5 SEEN /hpf (0-5)
[2018-04-27 07:56] LABS: Microalbumin,Random Urine 8.7 mg/L (NO RANGE EST.); Microalbumin:Creatinine Ratio 5.5 mg/g CRE (<30 mg/g CRE)
[2018-04-27 08:05] LABS: ALB/GLOB Ratio 1.1 RATIO (0.9-2.4); AST(SGOT) 20 U/L (15-37); Alanine Aminotransfer ALT/SGPT 29 U/L (16-61); Albumin, Serum 3.7 g/dL (3.2-5.0); Alkaline Phosphatase 65 U/L (45-117); Anion Gap 8 (5-15); BUN 39 mg/dL (7-18); BUN/Creat Ratio 29.3 RATIO (10-20); Calcium,Total 9.5 mg/dL (8.5-10.1); Chloride 99 mmol/L (98-107); Creatinine, Serum 1.33 mg/dL (0.70-1.30); EST Glomerular Filtration Rate 57 mL/min (>60); Est Glom Filt Rate - Afr Amer 69 mL/min (>60); Globulin 3.5 g/dL (2.2-4.2); Glucose 110 mg/dL (74-106); Magnesium 1.8 mg/dL (1.6-2.6); PSA,Total - Annual Screen 1.02 ng/mL (0.00-4.00); Potassium 3.6 mmol/L (3.5-5.1); Protein, Total 7.2 g/dL (6.4-8.2); Sodium Level 141 mmol/L (136-145); Thyroid Stim Hormone (TSH) 1.66 uIU/mL (0.358-3.74)
[2018-04-27 09:04] LABS: Vitamin B12 409 pg/mL (211-911); Vitamin D,25 Hydroxy 75.4 ng/mL (29.95-100.01)
--- OUTSIDE RECORDS SUMMARY | 2018-07-01 18:59 | XMS RPT_ITS | Continuity of Care Document ---
:1950 Author Organization [facility] Address [address] [place] [address] Phone Care Team Providers Name Role Phone Jazz Rodas DO Unavailable [facility], [facility] Unavailable Dr. Jose Antonio Mehta Unavailable Long FILENET ADMINSharonda Unavailable Unavailable Fabrizio Bryant Unavailable Unavailable Elle Camacho LPN Unavailable Unavailable EVANGELISTA Weeks Unavailable Unavailable Giselle Hernandes Unavailable Unavailable Unavailable Unavailable Problems Name Dates Details Accidental fall, initial encounter (W19.XXXA, E888.9) Status: Active Annual Medicare Phyiscal WITHOUT abnormal findings (Renamed from Encounter for general adult medical examination without abnormal findings) (Z00.00, V70.9) Status: Active Annual Medicare Physical WITH abnormal findings (Renamed from Encounter for general adult medical examination with abnormal findings) (Z00.01, V70.0) Status: Active Annual Medicare Physical WITH abnormal findings (Renamed from Encounter for general adult medical examination with abnormal findings) (Z00.01, V70.0) Status: Active Atrial fibrillation, controlled (I48.91, 427.31) Comments: rate controlleds/p ablation in nsr but still on eliquis Status: Active Benign prostatic hyperplasia with urinary obstruction and other lower urinary tract symptoms (N40.1, 600.21) Status: Active BMI 39.0-39.9,adult (Z68.39, V85.39) Status: Active BMI 40.0-44.9, adult (Z68.41, V85.41) Status: Active Bulging lumbar disc (M51.26, 722.10) Status: Active Carotid stenosis (I65.29, 433.10) Comments: last doppler 11/26 <50% some progression Status: Active 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, 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.9) Comments: baby asa daily and risk factor modification -- Status: Active Chronic anticoagulation (Z79.01, V58.61) Comments: doing well on eliquis -- he had a GIB on coumadin Status: Active Chronic anticoagulation (Z79.01, V58.61) Comments: Dr Maria manages Status: Active Chronic fatigue (R53.82, 780.79) Status: Active Coronary artery disease, 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, 414.00) Comments: bypass 1996/ stents placed -- cath 2011 still various low grade occlusions and some hi grade occlusions in circumflex 80-90%-- a fib /a flutter ablation in 2011 then second ablation in 2016 and doing we ll/// on asa, eliquis, sugar control , on a statin, and bp control will work on Status: Active Degenerative disc disease (722.6) Status: Active Degenerative lumbar spinal stenosis (M48.061, 724.02) Status: Active Depression (F32.9, 311) Status: Active Depression, acute (F32.9, 296.20) Status: Active Diverticulosis of colon (K57.30, 562.10) Status: Active Dizzy (R42, 780.4) Status: Active Drug intoxication with delirium (F19.121, 292.81) Comments: etoh levels 350 Status: Active Dysthymic (F34.1, 300.4) Comments: mild score Status: Active Edema (R60.9, 782.3) Comments: was in [place] when started very salty food and hot -- all resolved after time wiht being home - all w/u negative Status: Active Encounter for Medicare annual wellness exam (Z00.00, V70.0) Comments: new to medicare Status: Active Encounter for screening for malignant neoplasm of colon (Renamed from Special screening for malignant neoplasms, colon) (Z12.11, V76.51) Status: Active Encounter for screening for malignant neoplasm of prostate (Renamed from Screening for prostate cancer) (Z12.5, V76.44) Status: Active Family history of diabetes mellitus (Z83.3, V18.0) Status: Active Hypercholesterolemia (E78.00, 272.0) Status: Active Hyperglycemia (R73.9, 790.29) Status: Active Hyperkalemia (E87.5, 276.7) Status: Active Hypermagnesemia (E83.41, 275.2) Status: Active Hypertension with heart disease (I11.9, 402.90) Comments: dont increase BB bc of h/o too tired and in past only lowered diastolic no effect on top # withincreased dose..uncontrolled based on home diaries Status: Active Impaired fasting glucose (R73.01, 790.21) Status: Active Lumbar stenosis with neurogenic claudication (M48.062, 724.03) Comments: s/p back surgery february 2018- great Status: Active Macrocytosis without anemia (D75.89, 289.89) Status: Active Medication side effect (T50.905A, 995.20) Status: Active Melena (K92.1, 578.1) Status: Active Microalbuminuria (R80.9, 791.0) Status: Active Mitral stenosis with insufficiency (I05.2, 394.2) Comments: stable echo Status: Active Need for prophylactic vaccination and inoculation against influenza (Z23, V04.81) Status: Active Need for prophylactic vaccination and inoculation against influenza (Z23, V04.81) Status: Active Need for prophylactic vaccination and inoculation against influenza (Renamed from Need for immunization against influenza) (Z23, V04.81) Status: Active Need for prophylactic vaccination and inoculation against influenza (Renamed from Need for immunization against influenza) (Z23, V04.81) Status: Active Need for vaccination against Streptococcus pneumoniae (Z23, V03.82) Status: Active Nocturnal leg cramps (G47.62, 327.52) Status: Active Nonsmoker (Z78.9, V49.89) Status: Active Nonsmoker (Z78.9, V49.89) Status: Active Nutritional counseling (Z71.3, V65.3) Status: Active Obstructive sleep apnea, adult (G47.33, 327.23) Comments: wears bipap mask now- faithfully Status: Active Other chronic pain (G89.29, 338.29) Comments: cant do injections until off coumadin and that is predicted to be able to be stopped mid octobercant use cymbalta bc made him angry-- didnt tolerate gabapenitn either- bad mental fog and altered mental status Status: Active Peripheral vascular disease (I73.9, 443.9) Comments: he not having sx and doesnt want tests Status: Active Sinusitis, acute (J01.90, 461.9) Status: Active Subcutaneous nodules (R22.9, 782.2) Comments: on left buttock , sebaceous cyst vs lymph nodes.( US 04/14/16)Pelvic CT IV contrast: 04/16/16: minimal stranding subcutaneous fat of left buttock . Very tiny nodular densitoes along the underside of cutaneo us surface ,slight amorphous density on right gluteal muscle when compared to leftWill speak to general surgery if needs to be seen Status: Active Vitamin B12 deficiency (E53.8, 266.2) Comments: taking oral supplements at home Status: Active Vitamin D deficiency (E55.9, 268.9) Status: Active Medications Name Dates Details Amitriptyline HCl 50 MG Oral Tablet 1 (one) Tablet qhs for 0 days Quantity: 30 {Tablet} Refills: 3 Ordered:25-Aug-2016 Aditi Rodas DO, DO, Kathleen Start : 25-Aug-2016 Active AmLODIPine Besylate 5 MG Oral Tablet daily (5 MG) Active Atenolol 25 MG Oral Tablet 1 Tablet qd for 90 days Quantity: 30 {Tablet} Refills: 3 Ordered:26-Apr-2018 Aditi Rodas DO, DO, Kathleen Start : 26-Apr-2018 Active Comments:new dose to help with afib rate control BuPROPion HCl ER (XL) 150 MG Oral Tablet Extended Release 24 Hour 1 (one) Tablet qd for 7 days for 0 days Quantity: 7 {Tablet} Refills: 0 Ordered:04-Nov-2017 Aditi Rodas DO, DO, Kathleen Start : 04-Nov-2017 Active BuPROPion HCl ER (XL) 300 MG Oral Tablet Extended Release 24 Hour 1 (one) Tablet qd after completed 150mg for 7 days for 0 days Quantity: 30 {Tablet} Refills: 3 Ordered:07-Nov-2017 Aditi Rodas DO, DO, Kathleen Start : 07-Nov-2017 Active CeleXA 10 MG Oral Tablet 1 (one) Tablet daily for 30 days Quantity: 30 {Tablet} Refills: 1 Ordered:17-Apr-2018 Aditi Rodas DO, DO, Kathleen Start : 17-Apr-2018 Active CloNIDine HCl 0.1 MG Oral Tablet 1 (one) Tablet qhs for 0 days Quantity: 30 {Tablet} Refills: 3 Ordered:26-Apr-2018 Aditi Rodas DO, DO, Kathleen Start : 26-Apr-2018 Active Eliquis 5 MG Oral Tablet (5 MG) Active Comments:2am/pm cardio rx Fenofibrate 54 MG Oral Tablet 1 (one) Tablet Tablet qd for 0 days Quantity: 30 {Tablet} Refills: 0 Ordered:21-Apr-2016 Aditi Rodas DO, DO, Kathleen Start : 29-Mar-2016 Active FISH OIL, 1000MG (Oral Capsule) 1 QD for 0 days Refills: 0 Ordered:07-Jan-2009 Sravani Mullins Furosemide 40 MG Oral Tablet 1 (one) Tablet Tablet qd for 0 days Quantity: 30 {Tablet} Refills: 0 Ordered:21-Apr-2016 Aditi Rodas DO, DO, Kathleen Start : 29-Mar-2016 Active LIPITOR, 40MG (Oral Tablet) 1 (one) Tablet qd for 0 days Quantity: 30 {Tablet} Refills: 3 Ordered:19-Sep-2014 Aditi Rodas DO, DO, Kathleen Start : 19-Sep-2014 Active Lisinopril 20 MG Oral Tablet 1 tab Tablet bid for 0 days Quantity: 60 {Tablet} Refills: 0 Ordered:22-Oct-2015 Aditi Rodas DO, DO, Kathleen Start : 22-Oct-2015 Active MULTIVITAMINS (Oral Tablet) 1 tab qd for 0 days Refills: 0 Ordered:07-Jan-2009 Sravani Mullins PROVIGIL, 200MG (Oral Tablet) 1 tab bid for 0 days Refills: 0 Ordered:07-Jan-2009 Sravani Mullins Vitamin D-Vitamin K Oral Capsule 01543B Active Zoloft 50 MG Oral Tablet 2 (two) Tablet qd for 30 days Quantity: 60 {Tablet} Refills: 4 Ordered:27-Oct-2017 Irvin LAURA Jazz Pennington DO Start : 27-Oct-2017 Active Comments:wean ANUSOL-HC, 25MG (Rectal Suppository) 1 (one) Suppository qhs / HS prn for 0 days Quantity: 30 {Suppository} Refills: 0 Ordered:01-Jul-2011 KATINA Méndez Start : 06-Mar-2008 End : 01-Jul-2011 Inactive ASPIRIN, 325MG (Oral Tablet) 1 tab daily (325 MG) Inactive Augmentin 875-125 MG Oral Tablet 1 (one) Tablet bid for 14 days Quantity: 28 {Tablet} Refills: 0 Ordered:25-Feb-2017 Chanel Alamo CNP Start : 25-Feb-2017 End : 11-Mar-2017 Inactive Cheratussin AC 100-10 MG/5ML Oral Syrup 5 Milliliter q 6 hours prn cough for 0 days Quantity: 120 {Milliliter} Refills: 0 Ordered:15-Apr-2017 Darlene Weeks LPN Start : 25-Feb-2017 End : 15-Apr-2017 Inactive Clindamycin HCl 150 MG Oral Capsule 1 (one) Capsule Capsule every six hours for 10 days Quantity: 40 {Capsule} Refills: 0 Ordered:13-Apr-2016 Perla Ruano Start : 13-Apr-2016 End : 23-Apr-2016 Inactive CYMBALTA, 30MG (Oral Capsule Delayed Release Particles) 1 (one) Capsule DR Part qd for 0 days Quantity: 30 {Capsule_DR_Part} Refills: 3 Ordered:14-Jul-2009 Xiao Busby Start : 07-Jan-2009 Inactive CYMBALTA, 60MG (Oral Capsule Delayed Release Particles) 1 (one) Capsule DR Part qd for 0 days Quantity: 90 {Capsule_DR_Part} Refills: 3 Ordered:11-Oct-2006 Xiao Busby Start : 11-Oct-2006 End : 06-Dec-2006 Inactive EFFEXOR XR, 37.5MG (Oral Capsule Extended Release 24 Hour) 1 Capsule ER 24HR qd as directed for 0 days Quantity: 30 {Capsule_ER_24HR} Refills: 1 Ordered:01-Jul-2011 KATINA Méndez Start : 10-Feb-2011 End : 01-Jul-2011 Inactive EFFEXOR XR, 75MG (Oral Capsule Extended Release 24 Hour) 2 (two) Capsule ER 24HR qd for 0 days Quantity: 60 {Capsule_ER_24HR} Refills: 3 Ordered:19-Mar-2011 Emili Mullins Start : 24-Nov-2010 End : 19-Mar-2011 Inactive Eliquis 5 MG Oral Tablet 1 (one) Tablet Tablet bid for 360 days Refills: 0 Ordered:09-Jan-2018 Elle Camacho LPN Start : 10-Dec-2016 End : 05-Dec-2017 Inactive Comments:a fib/ carrdio FENOFIBRATE, 160MG (Oral Tablet) 1 (one) Tablet daily for 30 days Quantity: 30 {Tablet} Refills: 0 Ordered:26-May-2011 Emili Mullins Start : 26-May-2011 End : 25-Jun-2011 Inactive FENTANYL, 50MCG/HR (Transdermal Patch 72 Hour) 1 patch q 72hrs (50 MCG/HR) Inactive Gabapentin 300 MG Oral Capsule 1 (one) Capsule qhs for 5days then bid for 5days then tid for 0 days Quantity: 90 {Capsule} Refills: 0 Ordered:21-Jul-2016 Aditi Rodas DO, DO, Kathleen Start : 21-Jul-2016 End : 21-Jul-2016 Inactive GUAIATUSSIN AC, 100-10MG/5ML (Oral Syrup) 1 Syrup 1 tsp qhs for 0 days Quantity: 6 {Syrup} Refills: 0 Ordered:21-Apr-2009 Milady Jay LPN Start : 03-Jul-2008 Inactive HYDROCODONE-ACETAMINOPHEN, 5-500MG (Oral Tablet) 1 tab tid, prn (5-500 MG) Inactive KLOR-CON M20, 20MEQ (Oral Tablet Extended Release) 1 Tablet ER qd for 30 days Quantity: 30 {Tablet_ER} Refills: 0 Ordered:05-Aug-2010 Emili Mullins Start : 05-Aug-2010 End : 04-Sep-2010 Inactive LASIX, 20MG (Oral Tablet) 1 Tablet qd for 30 days Quantity: 30 {Tablet} Refills: 0 Ordered:05-Aug-2010 Emili Mullins Start : 05-Aug-2010 End : 04-Sep-2010 Inactive LEVAQUIN, 500MG (Oral Tablet) 1 (one) Tablet daily for 10 days Quantity: 10 {Tablet} Refills: 0 Ordered:08-Feb-2012 Chanel Alamo CNP Start : 08-Feb-2012 End : 18-Feb-2012 Inactive Comments:only take 4 more days Meloxicam 7.5 MG Oral Tablet 1 tab Tablet daily for 0 days Quantity: 30 {Tablet} Refills: 3 Ordered:26-Nov-2015 Darlene Weeks LPN Start : 19-Sep-2014 End : 26-Nov-2015 Inactive MYCELEX, 10MG (Mouth/Throat Preethi) 1 (one) Preethi 5 times daily for 0 days Quantity: 50 {Preethi} Refills: 0 Ordered:01-Jul-2011 KATINA Méndez Start : 16-Apr-2011 End : 01-Jul-2011 Inactive NASACORT AQ, 55MCG/ACT (Nasal Aerosol Solution) 1 (one) Aerosol Soln qd for 0 days Refills: 0 Ordered:27-Dec-2007 Emili Mullins Start : 27-Dec-2007 End : 12-Jun-2008 Inactive PRAVASTATIN SODIUM, 80MG (Oral Tablet) 1 tab Tablet qd for 0 days Refills: 0 Ordered:06-Dec-2007 Emili Mullins Start : 06-Dec-2007 End : 12-Jun-2008 Inactive PRINIVIL, 20MG (Oral Tablet) 1 (one) Tablet bid for 30 days Quantity: 60 {Tablet} Refills: 0 Ordered:26-May-2011 Emili Mullins Start : 26-May-2011 End : 25-Jun-2011 Inactive PROMETHAZINE HCL, 12.5MG (Oral Tablet) 1 (one) Tablet q 8 hr prn nausea for 0 days Quantity: 10 {Tablet} Refills: 0 Ordered:29-Sep-2015 Darlene Weeks LPN Start : 25-Sep-2015 End : 29-Sep-2015 Inactive SUPER B-COMPLEX (Oral Capsule) 1 cap daily Inactive TRICOR, 145MG (Oral Tablet) 1 tab Tablet qd for 0 days Quantity: 30 {Tablet} Refills: 3 Ordered:14-Jul-2009 Xiao Busby Start : 14-Apr-2009 Inactive TRILIPIX, 135MG (Oral Capsule Delayed Release) [address] qd for 0 days Quantity: 90 {Capsule_DR} Refills: 3 Ordered:19-Oct-2010 Emili Mullins Start : 14-May-2010 End : 19-Oct-2010 Inactive VENTOLIN HFA, 108 (90 Base)MCG/ACT (Inhalation Aerosol Solution) 2 (two) Aerosol Soln q6 hr prn for 0 days Quantity: 1 {Aerosol_Soln} Refills: 0 Ordered:19-Mar-2011 Emili Mullins Start : 14-May-2010 End : 19-Mar-2011 Inactive Vitamin D3 2000 UNIT Oral Capsule 2 (two) Capsule Capsule qd for 90 days Refills: 0 Ordered:27-Jan-2016 Darlene Weeks LPN Start : 22-Oct-2015 End : 20-Jan-2016 Inactive Xarelto 20 MG Oral Tablet 1 (one) Tablet Tablet qd for 30 days Refills: 0 Ordered:22-Oct-2015 Darlene Weeks LPN Start : 30-Jul-2015 End : 22-Oct-2015 Inactive Zofran 4 MG Oral Tablet 1 (one) Tablet Tablet q 12 hrs prn for 0 days Quantity: 15 {Tablet} Refills: 0 Ordered:26-Nov-2015 Darlene Weeks LPN Start : 29-Sep-2015 End : 26-Nov-2015 Inactive ZOSTAVAX, 65283UYE/0.65ML (Subcutaneous Solution Reconstituted) 1 For Solution dose IM in office for 0 days Quantity: 1 {For_Solution} Refills: 0 Ordered:19-Mar-2011 Emili Mullins Start : 15-Feb-2011 End : 19-Mar-2011 Inactive Comments:bring filled rx to office within 30 minutes for administration of injection. Amiodarone HCl 200 MG Oral Tablet 1 (one) Tablet Tablet qd for 0 days Quantity: 30 {Tablet} Refills: 0 Ordered:21-Jul-2016 Aditi Rodas DO, DO, Kathleen Start : 21-Jul-2016 End : 21-Jul-2016 Discontinued Comments:per cardio-- s/p ablation ASPIRIN EC LO-DOSE, 81MG (Oral Tablet Delayed Release) 1 (one) Tablet DR qd for 0 days Quantity: 30 {Tablet} Refills: 3 Ordered:30-Jul-2015 Irvin LAURA JazzYingalejandrina LAURA Jazz Start : 19-Sep-2014 End : 30-Jul-2015 Discontinued Comments:This order discontinued per [facility]. BIAXIN XL, 500MG (Oral Tablet Extended Release 24 Hour) 2 (two) Tablet ER 24HR qd for 0 days Quantity: 20 {Tablet_ER_24HR} Refills: 0 Ordered:10-Feb-2011 Marlys Valencia RN Start : 24-Nov-2010 End : 10-Feb-2011 Discontinued BUPROPION HCL, 100MG (Oral Tablet) 1 Tablet QD for 0 days Quantity: 90 {Tablet} Refills: 3 Ordered:10-Jun-2006 Xiao Busby Start : 10-Jun-2006 End : 11-Oct-2006 Discontinued CITALOPRAM HYDROBROMIDE, 10MG (Oral Tablet) 1 tab Tablet qd for 0 days Quantity: 30 {Tablet} Refills: 3 Ordered:24-Nov-2010 Marlys Valencia RN Start : 02-Mar-2010 End : 10-Feb-2011 Discontinued CRESTOR, 20MG (Oral Tablet) 1 QD for 0 days Refills: 0 Ordered:23-Aug-2007 Xiao Busby End : 02-May-2007 Discontinued CRESTOR, 20MG (Oral Tablet) 1 tab Tablet qd for 90 days Quantity: 90 {Tablet} Refills: 3 Ordered:15-Jan-2014 Emili Mullins Start : 21-May-2011 End : 15-Jan-2014 Discontinued FLOMAX, 0.4MG (PO Cap CR) 2 QD for 0 days Refills: 0 Ordered:23-Aug-2007 Xiao Busby End : 01-Jun-2006 Discontinued NITRO-DUR, 0.1MG/HR (Transdermal Patch 24 Hour) AM Replace PM for 0 days Refills: 0 Ordered:10-Feb-2011 Marlys Valencia RN End : 10-Feb-2011 Discontinued OCUFLOX, 0.3% (Ophthalmic Solution) 1-2 Solution gtts q 6 hours for 1 week for 0 days Refills: 0 Ordered:10-Feb-2011 Marlys Valencia RN Start : 24-Nov-2010 End : 10-Feb-2011 Discontinued PLAVIX, 75MG (Oral Tablet) 1 Tablet QD for 0 days Quantity: 90 {Tablet} Refills: 3 Ordered:15-Jan-2014 Emili Mullins Start : 21-May-2011 End : 15-Jan-2014 Discontinued PRINIVIL, 5MG (Oral Tablet) 1 Tablet QD for 0 days Refills: 0 Ordered:01-Jun-2006 Xiao Busby Start : 01-Jun-2006 End : 01-Jun-2006 Discontinued PROAIR HFA, 108 (90 Base)MCG/ACT (Inhalation Aerosol Solution) 2 (two) Puff(s) tid prn for 0 days Quantity: 1 {Aerosol_Soln} Refills: 0 Ordered:15-Jan-2014 Emili Mullins Start : 08-Feb-2012 End : 15-Jan-2014 Discontinued Trintellix 10 MG Oral Tablet 1 (one) Tablet qd for 90 days Quantity: 90 {Tablet} Refills: 1 Ordered:15-Jan-2016 Aditi Rodas DO, DO, Kathleen Start : 12-Dec-2015 End : 15-Jan-2016 Discontinued ZETIA, 10MG (Oral Tablet) 1 Tablet QD for 0 days Quantity: 90 {Tablet} Refills: 3 Ordered:15-Jan-2014 Emili Mullins Start : 21-May-2011 End : 15-Jan-2014 Discontinued Allergies and Adverse Reactions Name Dates Details Gemfibrozil *ANTIHYPERLIPIDEMICS* Status: Active (Allergy) Iodinated Contrast (Allergy) Status: Resolved Comments: pt states that he has never had a reaction to the iodine contrast before. Niaspan *ANTIHYPERLIPIDEMICS* (Allergy) Status: Active Zocor *ANTIHYPERLIPIDEMICS* (Allergy) Status: Active Past Medical History Name Dates Details Abnormal blood chemistry (R79.9, 790.6) Status: Inactive as of 12-Dec-2015 Abnormal EKG (R94.31, 794.31) Comments: sinus yoko Status: Inactive as of 21-Apr-2009 Acute intractable headache, unspecified headache type (R51, 784.0) Status: Inactive as of 26-Nov-2015 Altered mental status, unspecified altered mental status type (R41.82, 780.97) Comments: originally from etoh this time from gabapentin Status: Resolved as of 21-Jul-2016 Anemia, unspecified (D64.9, 285.9) Status: Resolved as of 14-Jul-2009 BMI 37.0-37.9, adult (Z68.37, V85.37) Status: Inactive as of 25-Feb-2017 BMI 38.0-38.9,adult (Z68.38, V85.38) Status: Inactive as of 25-Feb-2017 Bronchitis (J40, 490) Status: Resolved as of 15-Jan-2014 Bronchitis, acute (J20.9, 466.0) Status: Resolved as of 21-May-2011 Candidiasis, mouth (B37.0, 112.0) Comments: resolved Status: Inactive as of 13-May-2009 Cellulitis (L03.90, 682.9) Comments: 04/22/16Doppler US negative for DVT.Discussed with Dr Grande: reveiwed Ct scan and US. Recommend repeat US buttock soft tissue in 6 mnths, so 10/25Do not recommend any biopsy.COuld be reactive lymp hadenopathyPatient is aware to call in October to get order so not exp by then Status: Inactive as of 21-Jul-2016 Coronary artery disease (I25.10, 414.00) Status: Inactive as of 29-Mar-2016 Cough (R05, 786.2) Status: Inactive as of 26-Apr-2018 Cough (R05, 786.2) Status: Resolved as of 15-Jan-2014 Elevated liver enzymes (R74.8, 790.5) Status: Resolved as of 22-Oct-2015 Fatigue (R53.83, 780.79) 21-Apr-2009 Status: Inactive as of 13-May-2009 Hypertension (I10, 401.9) Comments: chronic stable-continue present regimen Status: Inactive as of 29-Mar-2016 Immunization Hx: TDAP 09/22/2009 (Renamed from TDAP 09/22/2009) Status: Inactive Nausea (R11.0, 787.02) Status: Inactive as of 26-Nov-2015 Need for prophylactic vaccination and inoculation against other specified disease (Z23, V05.8) Status: Inactive as of 21-May-2011 Pharyngitis, acute (J02.9, 462) Status: Inactive as of 13-May-2009 PYELONEPHRITIS, ACUTE NOS (590.10) Status: Resolved as of 17-Sep-2010 Rectal bleeding (K62.5, 569.3) Status: Resolved as of 01-Oct-2008 Serous conjunctivitis, unspecified laterality (H10.239, 372.01) Status: Resolved as of 19-Mar-2011 SOB (shortness of breath) on exertion (R06.02, 786.05) 01-Jul-2011 Comments: think asthma but worry with carride PE and worry about heart with CAD. will do tests. send labs. do aerosol and have him walk around and see if better stat labs Status: Resolved as of 15-Jan-2014 Unspecified bacterial pneumonia (J15.9, 482.9) Status: Resolved as of 28-Jul-2010 Unspecified Diagnosis Status: Inactive as of 21-May-2011 Unspecified Diagnosis Status: Inactive as of 26-Nov-2009 Unspecified Diagnosis Status: Inactive as of 21-May-2011 Vertigo (R42, 780.4) Comments: improving Status: Resolved as of 01-Oct-2008 Wheezing (R06.2, 786.07) Status: Resolved as of 01-Oct-2008 Procedures Procedure Dates Details cardioversion 09/2015 Completed Colonoscopy Completed Comments: 05-23-08 - Hyperplastic polyp, repeat in 7-yrs. heart ablation 04/07/16 [facility] Completed TURP- 2005 Completed ulner repair 08/12/15 Completed Date Value Details 28-Feb-2018 Cardiology Visit Report Result: Comments: See Note; NOTES: [facility] [address] [place], [place] [address]. [address] [place] [address] OFFICE VISIT Date of Service: 02/28/18 MR#: [id number] Acct: [id number] Name: LETHA DEUTSCH Rep #: [id number] : 1950 Provider: Hyun Iglesias Age/Sex: 67/M Location: [facility] [place] Status: Signed HPI HPI Chief Complaint: Acute Kidney Injury Details: LETHA DEUTSCH is a 67 M who presen ts to the office today for a cardiovascular follow-up. He has a history of coronary artery disease with bypass surgery in 1996. He had an BETHEA to the LAD, SVG to circumflex and diagonal he also has sten ts to his right and left iliac arteries. In 2011 he had an atrial flutter ablation, unfortunately this did not hold and he underwent further cardioversions and a second ablation in 2011 Patient was hos pitalized for an acute kidney injury for preoperative blood work for surgery on his back. During his hospitalization last month his lisinopril and his Lasix were discontinued. He had been on lisinopril and Lasix for quite some time. He called our office following week after he was discharged with high blood pressure readings and increase edema. We restarted his Lasix on an as-needed basis. He states that he is using this on an every other day basis is helping with his lower extremity edema. He was also started on amlodipine at 2.5 mg daily. He states his blood pressure still elevated but improved. He does not have any chest discomfort or heaviness. He does not have any worsening shortness of breath. He does not have any lightheadedness or dizziness. He has not had any near-syncope or syncope. He has not established with nephrology yet. He has been having a difficult time getting a hold of someone in the office he was referred to. Intake Vital Signs02/28/18 Height 5 ft 5 in 02/28/18 We ight: 228 lb 02/28/18 Body Mass Index (BMI) 37.9 02/28/18 Blood Pressure 160/68 H Intake Visit Reasons: PER PK, PRIOR TO SURGERY Manager Placement Required: No Accompanied by: None Is patient in pain?: No A llergies gabapentin Adverse Reaction (Verified 02/28/18 15:03) Other warfarin [From Coumadin] Adverse Reaction (Verified 02/28/18 15:03) very sensitive, high INR and GI bleed Medications Aspirin E.C . [Ecotrin] 81 mg PO QHS 01/22/15 [History Confirmed 02/28/18] Modafinil [Provigil] 200 mg PO BID 01/22/15 [History Confirmed 02/16/18] Multivitamins,Therapeutic [Multivitamin] 1 tab PO DAILY 01/22/15 [ History Confirmed 02/28/18] Cholecalciferol (Vitamin D3) [Vitamin D3] 5,000 unit PO DAILY 06/23/16 [History Confirmed 02/28/18] pantoprazole 40 mg tablet,delayed release 40 mg PO PRN PRN 30 Days #30 07/27 [History Confirmed 02/28/18] atorvastatin 40 mg tablet 40 mg PO DAILY #90 tab 07/04/17 [Rx Confirmed 02/28/18] atenolol 25 mg tablet 25 mg PO DAILY #90 tab 08/22/17 [Rx Confirmed 02/28/18] apixaba n 5 mg tablet 5 mg PO BID 30 Days #60 tab 11/03/17 [Rx Confirmed 02/28/18] Citalopram Hydrobromide [Citalopram HBr] 10 mg PO DAILY 02/16/18 [History Confirmed 02/28/18] fenofibrate 54 mg tablet 54 mg PO QHS #90 tab 02/23/18 [Rx Confirmed 02/28/18] amlodipine 2.5 mg tablet 2.5 mg PO DAILY #30 tab 02/28/18 [Rx Confirmed 02/28/18] furosemide 40 mg tablet 40 mg PO DAILY PRN tab 02/28/18 [History Confirmed 02/28/18] Ejection fraction %: 65 to 70 PFSH Medical History HLD (hyperlipidemia) (Chronic) HTN (hypertension) (Chronic) Atherosclerosis of coronary artery bypass graft without angina pectoris (Chr onic) Renal disease (Chronic) Persistent atrial fibrillation (Chronic) Dyspnea (Chronic) Sleep apnea (Chronic) Occlusion and stenosis of left carotid artery (Chronic) 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) Obesity (BMI 30-39.9) (Chronic) Anxiety and depression (Chronic) Atrial fibrillation and flutter (Chronic) PAD (peripheral artery disease) (Chronic ) Surgical History History of prior ablation treatment (Resolved 2011) H/O shoulder replacement (Resolved 2014) History of left heart catheterization (LHC) (Chronic) History of transurethral resect ion of prostate (Chronic 2004) History of coronary artery bypass surgery (Chronic 1996) Presence of aortocoronary bypass graft (Chronic) History of mandibular surgery (Resolved 1992) History of nasal surgery (Resolved 2002) Family History Father Myocardial infarction Heart disease Mother CAD (coronary artery disease) Brother CAD (coronar y artery disease) Diabetes Hx of CABG Sister Hypertension Pulmonary embolism Social History Smoking Status: Former smoker how long ago did patient quit smokin alcohol intake: former ye ar quit: 2015 substance use type: does not use caffeine: Yes Type: coffee Number of servings: 1 what type of physical activity do you participate in: none seatbelt use: always do you feel safe at home: Yes Cardiology Exam Const Appearance: cooperative, healthy appearing, well developed, well groomed and no acute distress Nutritional Appearance: well nourished and average body habitus Orientation: alert, awake and oriented x3 Head Head: normal to inspection, normocephalic and atraumatic Ears: hearing grossly normal bilaterally and external ears normal Nose: external nose normal, nasal mucous memb ranes and turbinates normal, nares normal, septum normal, no nasal discharge Face and Sinus: face symmetric Mouth: oral mucosae normal, tongue normal, oropharynx normal and moist mucous membranes Teeth and gingiva: dentition normal Throat: posterior oropharynx normal, tonsils normal and uvula midline Eyes General: appearance normal, both eyes and all related structures Eyelids: eyelids normal Conjunct ivae: conjunctivae normal Pupils: PERRL, normal by confrontation and accommodation normal EOM: EOM intact bilaterally Neck Carotids: bruit Bilateral Chest Chest inspection: normal inspection of the ches t, symmetric chest movement and normal respiratory effort Auscultation: Bilateral: Clear to Auscultation Cardio Palpation: normal PMI Rate: regular rate Rhythm: regular rhythm Heart sounds: S1 normal, S 2 normal and normal, physiologic split S2; negative rub, gallop or murmur GI GI: normal to inspection, soft, no hepatosplenomegaly and bowel sounds present Neuro General: alert, awake, oriented x3, no f ocal sensory deficit, gait normal and moves all extremities Skin Skin: no rashes or lesions noted Extremities Pulses: Normal: Right Femoral Pulse, Left Femoral Pulse, Right Dorsalis Pedis Pulse, Left Do rsalis Pedis Pulse, Right Posterior Tibial Pulse, Left Posterior Tibial Pulse, Right Radial Pulse, Left Radial Pulse Lower Extremity Edema: None: Bilateral Musculoskel Musculoskeletal: No joint tenderne ss Psych Psychological: normal affect Supplemental Info Echocardiogram in 2016 demonstrated an ejection fraction of 65%. Left ventricular systolic function is normal. Mild to moderate mitral insuffici ency. Mild to moderate tricuspid insufficiency. Improvement in his EF was noted since his previous cardioversion. Ejection fraction at that time was 50%. Pharmacologic nuclear stress test in May 13 017 demonstrated myocardial perfusion changes compatible with previous myocardial injury sports/infarct with no myocardial perfusion changes consider diagnostic for stress associated myocardial ischemia . Assessment AND Plan 1. Atherosclerosis of [place] coronary artery of [place] heart without angina pectoris I25.10 CABG 03/20/1997 BETHEA to LAD, Reverse SVG to CX and to DX, C 07/21/2011 Plan - LEDA Zarate Stable, from a cardiac standpoint patient does not have any symptoms of angina. We recommend that they continue with current aggressive medical management and risk factor modificati on. 2. Essential hypertension I10 Plan - LEDA Millard Blood pressure still elevated. We will have him increase his Norvasc to 5 mg daily. He will call her office in 2 weeks with an update o n what they have been running. Patient Instructions - LEDA Millard Increase your amlodipine to 5 mg daily. Call our office in 2 weeks with what your BP readings are. Orders Orders: 3. Pure hypercholesterolemia E78.00; E78.0 Plan - LEDA Millard Patient will continue with his moderate intensity statin. We will continue to monitor. 4. Occlusion and stenosis of left carotid arter y I65.22 Plan - LEDA Millard Patient does continue to follow with vascular for this. 5. PAD (peripheral artery disease) I73.9 s/p BL LE common iliac stenting Plan - Jeni Millard A Patient does follow with vascular. 6. Atrial fibrillation and flutter I48.91; I48.92 s/p ablation x 2 (flutter and fibrillation) Plan - LEDA Millard Patient remains anticoagulated. He mariano s not had any symptomatic recurrence. We will continue to monitor. 7. Renal disease N28.9 Plan - LEDA Millard We will obtain a BMP today. Will also refer patient to nephrology. Orders Order s: Referrals: Plan Detail Other Orders Orders: Other Medications Changed: Refilled: Additional Comments - LEDA Millard The above patient was discussed with Dr. Maria, he agrees with plan o f care. Thank you for allowing us to participate in patient's plan of care, if you have any questions please do not hesitate to call. This note was generated using a voice recognition system and there may be incorrect words, spelling or punctuation errors that were not noted when reviewing the office note prior to saving. Follow Up 02/28/18 (keep as is) Coding Level of Care Code Off vis,est,level 4 Diagnoses Atherosclerosis of [place] coronary artery of [place] heart without angina pectoris I25.10 Tribal vs. transplanted heart: choctaw heart Essential hypertension I10 Hypertension type: essential hypertension Pure hypercholesterolemia E78.00; E78.0 Hyperlipidemia type: pure hypercholesterolemia Occlusion and stenosis of left carotid artery I65.22 PAD (peripheral artery disease) I73.9 Atrial fibr illation and flutter I48.91; I48.92 Renal disease N28.9 Coding Level of Care Code Off vis,est,level 4 Diagnoses Atherosclerosis of [place] coronary artery of [place] heart without angina pectoris I25.1 0 Tribal vs. transplanted heart: choct[place] heart Essential hypertension I10 Hypertension type: essential hypertension Pure hypercholesterolemia E78.00; E78.0 Hyperlipidemia type: pure hypercholesterolemia Occlusion and stenosis of left carotid artery I65.22 PAD (peripheral artery disease) I73.9 Atrial fibrillation and flutter I48.91; I48.92 Renal disease N28.9 02/28/18 1747 <Electronically sig catrina by Hyun TOMPKINS> Date Hyun TOMPKINS 02/28/18 1753<Electronically signed by Babatunde Maria MD> Yousuf Mabry ignature: Date (if applicable) Babatunde Maria MD CC: Jazz Rodas DO 21-Feb-2018 Office Visit Report Result: Comments: See Note; NOTES: [facility] [address] [place], [place] [address]car[place] [address] OFFICE VISIT Date of Service: 02/20/18 MR#: [id number] Acct: [id number] Patient: LETHA DEUTSCH Rep #: [id number] : 1950 Provider: Babatunde Maria MD Age/Sex: 67/M Location: [facility] Status: Signed Intake Intake Visit Reasons: ROSE Chief Complaint: Acute Kidney Injury Allergies gabapentin Adverse Reaction (Verified 02/16/18 17:06) Other warfarin [From Coumadin] Adverse Reaction (Verified 02/16/18 17:06) very sensitive, high INR and GI bleed Medications Aspirin E.C. [Ecotrin] 81 mg PO QHS [History Confirmed 02/16/18] Modafinil [Provigil] 200 mg PO BID 01/22/15 [History Confirmed 02/16/18] Multivitamins,Therapeutic [Multivitamin] 1 tab PO DAILY 01/22/15 [History Confirmed 02/16/18] Cholecalciferol (Vitamin D3) [Vitamin D3] 5,000 unit PO DAILY 06/23/16 [History Confirmed 02/16/18] pantoprazole 40 mg tablet,delayed release 40 mg PO PRN PRN 30 Days #30 04/14/17 [History Confirmed 11/26] fenofibrate 54 mg tablet 54 mg PO QHS #90 tab 06/27/17 [Rx Confirmed 02/16/18] atorvastatin 40 mg tablet 40 mg PO DAILY #90 tab 07/04/17 [Rx Confirmed 02/16/18] atenolol 25 mg tablet 25 mg PO BEN LY #90 tab 08/22/17 [Rx Confirmed 02/16/18] apixaban 5 mg tablet 5 mg PO BID 30 Days #60 tab 11/03/17 [Rx Confirmed 02/16/18] Citalopram Hydrobromide [Citalopram HBr] 10 mg PO DAILY 02/16/18 [History Co nfirmed 02/16/18] amlodipine 2.5 mg tablet 2.5 mg PO DAILY #30 tab 02/20/18 [Rx] furosemide 40 mg tablet 40 mg PO DAILY #90 tab 02/21/18 [Rx] Nursing Note Patient came in yesterday with c/o 9 lb weig ht gain, BLE edema and edema of his hands. Was recently in the hospital with REGINO. Lasix and lisinopril were stopped. Per Hyun Iglesias take lasic 40mg x 3 days and start amlodipine 2.5mg daily and schedule f/u in 1-2 weeks. Patient agrees. 02/21/18 2633 <Electronically signed by Hyun Iglesias PA> Date Hyun Bal Lorirussellnancy Signature: Date (if applicable) CC: 16-Feb-2018 Emergency Department Summary Result: Comments: See Note; NOTES: [facility] Medical Records Department [address] [place] [address] Emergency Department Summary 02/16/18 1723 MR#: [id number] Acct: [id number] Name: LETHA DEUTSCH Rep #: [id number] : 1950 67 From: Charlie Lyles MD PCP: Jazz Rodas DO Status: REG ER - ER Visit Summary Date of Service: 02/16/18 Chief Complaint: Abnormal labs/elevated c reatinine History of Present Illness: The patient is a 67 M who was told to come the emergency department today. He had preop labs this morning for a back surgery later this month. He was told that his creatinine was elevated and to come the emergency department. He is having surgery because of some chronic back pain. He states that he has no history of any kidney issues in the past. He urinates a lo t because he drinks a lot of water throughout the day. No dysuria or hematuria is noted. Physical Examination: Vital signs reviewed. HEENT exam unremarkable. Heart is regular rate and rhythm without mu rmurs. Lungs are clear to auscultation. Abdomen is soft and nontender. Extremities reveal no edema. Skin exam normal. Neurologic exam normal. Test Results: Laboratory studies reveal a BUN of 103 and a creatinine of 3.5 Emergency Department Course and Treatment: Patient was given saline. He started on a keto diet a month ago. Otherwise I do not have any reason as to why his kidney function is increas ed. His glucose is normal even though he has a history of diabetes. Patient will be admitted to the hospital for further evaluation Treatment Plan: [] Disposition: Admit Impression: Acute kidney inju ry This note was generated with Xiaomiation software. It may contain incorrect words, spelling, and punctuation that were not noted in review of the chart prior to signing ED Disposition - Pl an for ED Patient: Chief Complaint: Abn Labs Referrals: Jazz Rodas, DO [Primary Care Provider] - What to do if you have Problems For any increased pain, shortness of breath, bleeding, nausea or vomiting, chest pain, or any unexpected problems, contact your Primary Care Provider. Call [facility] ([phone]) or report to the closest Emergency Room. Call 911 if necessary. 02/16/18 184 5 <Electronically signed by Charlie Lyles MD> Date Charlie Lyles MD Cosigner Signature (If Indicated): Date CC: Jazz Rodas DO 09-Nov-2017 Carotid Duplex Ultrasound Result: Comments: See Note; NOTES: [facility] Cardiovascular Services [address] [place] [address] Carotid Duplex Ultrasound 11/09/17 1247 MR#: [id number] Acct: [id number] Name: LETHA MASON Rep #: [id number] : 1950 67 From: Kaiser Awan MD Attending Dr: Babatunde Maria MD Status: REG [facility] Ordering Dr: Babatunde Maria MD Date: 11/09/17 Location: [facility] Sex: M C Admitted: R t. Velocities/BP Lt. Velocities/BP Prox CCA 63/13 cm/sec. Prox CCA 104/18 cm/sec. Mid CCA 64/15 cm/sec. Mid CCA 127/24 cm/sec. Dist CCA 70/16 cm/sec. Dist CCA 120/22 cm/sec. Prox ICA 66/18 cm/sec. Prox ICA 108/24 cm/sec. Mid ICA 75/25 cm/sec. Mid ICA 89/22 cm/sec. Dist ICA 58/23 cm/sec. Dist ICA 96/19 cm/sec. Rt. ICA/CCA = 1.17. Lt. ICA/CCA = 0.85. Prox ECA 134/20 cm/sec. Prox ECA 254/16 cm/sec. Rt. V ert. 27/14 cm/sec. Lt. Vert. 53/9 cm/sec. Right Extracranial There is heterogeneous, irregular atherosclerotic plaque noted in the right common carotid artery. There is heterogeneous, irregular atheros clerotic plaque noted in the right internal carotid artery. There is heterogeneous, irregular atherosclerotic plaque noted in the right external carotid artery. Antegrade flow is noted in the right vert ebral artery. Left Extracranial There is heterogeneous, irregular atherosclerotic plaque noted in the left common carotid artery. There is heterogeneous, irregular atherosclerotic plaque noted in the l eft internal carotid artery. The atherosclerotic plaque causes acoustic shadowing. There is heterogeneous, irregular atherosclerotic plaque noted in the left external carotid artery. Antegrade flow is n oted in the left vertebral artery. Procedure Carotid Duplex 53381. The study was technically difficult. Exam performed in department. Interpretation Summary Mild irregular calcific plague at the proxi mal right internal carotid with <50% stenosis. Mild irregular calcific plague at the proximal left internal carotid with <50% stenosis. Moderate disease left distal common carotid Mild d isease right external carotid Moderate disease left external carotid Patent and antegrade vertebrals bilaterally. Since 06/01/16 there is mild progression of stenosis involving the left distal common car otid and external carotid arteries. 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 [place] [address] OFFICE VISIT Date of Service: 10/27/17 MR#: [id number] Acct: [id number] Name: LETHA DEUTSCH Rep #: [id number] : 1950 Provider: Babatunde Maria MD Age/Sex: 66/M Location: [facility] Status: Signed HPI HPI Details: LETHA DEUTSCH, is a 66 M who presents to the office today for a cardiovascul ar follow-up. He has a history of coronary artery disease with bypass surgery in 1996. He had an BEHTEA to the LAD, SVG to the circumflex and diagonal. He also had stents to his right and left iliac arter ies. In 2011 he had a heart catheterization which demonstrated left main with 70% distal disease, LAD 30-40% mid stenosis, circumflex 80-90% stenosis, OM1 30% stenosis, patent LAD, diagonal and OM. In 2 he had an atrial flutter ablation. Unfortunately this did not hold and he had to further cardioversions and was successful in 2011 where he underwent a second ablation. He appears to be doing quite well after he was switched to Eliquis. You do remember that he did have a GI bleed on Coumadin. He has not had any neck arm or jaw discomfort suggest angina no dizziness or diaphoresis no near syncope o r syncope. Says that he has much more energy than before. You do remember he underwent stress testing in 2015 which did not demonstrate any evidence of ischemia. His physical exam today demonstrates jessica ar lung toussaint regular rate and rhythm and no pedal edema. He does have bilateral carotid bruits. Echocardiogram in 2017 demonstrated an ejection fraction of 65%. Left ventricular systolic function i s normal. Mild to moderate mitral insufficiency. Mild to moderate tricuspid insufficiency. Improvement in his EF was noted since his previous cardioversion. Ejection fraction at that time was 50%. In take Vital Signs10/27/17 Height 5 ft 5 in 10/27/17 Weight: 247 lb 10/27/17 Body Mass Index (BMI) 41.1 10/27/17 Blood Pressure 148/70 10/27/17 Blood Pressure Location Lt brachial Intake Visit Reasons: 6 M FU Manager Placement Required: No Accompanied by: none Is patient in pain?: No Allergies gabapentin Adverse Reaction (Verified 10/27/17 09:03) Other warfarin [From Coumadin] Adverse Reaction (Verified 09:03) very sensitive, high INR and GI bleed Medications Aspirin E.C. [Ecotrin] 81 mg PO QHS 01/22/15 [History Confirmed 10/27/17] Modafinil [Provigil] 200 mg PO BID 01/22/15 [History Confirme d 10/27/17] Multivitamins,Therapeutic [Multivitamin] 1 tab PO DAILY 01/22/15 [History Confirmed 10/27/17] Sertraline HCl [Zoloft] 50 mg PO DAILY 02/13/16 [History Confirmed 10/27/17] Cholecalciferol (Vi tamin D3) [Vitamin D3] 5,000 unit PO DAILY 06/23/16 [History Confirmed 10/27/17] apixaban 5 mg tablet PO 30 Days #60 04/14/17 [History Confirmed 10/27/17] pantoprazole 40 mg tablet,delayed release PO 30 Days #30 04/14/17 [History Confirmed 10/27/17] fenofibrate 54 mg tablet 54 mg PO QHS #90 tab 06/27/17 [Rx Confirmed 10/27/17] atorvastatin 40 mg tablet 40 mg PO DAILY #90 tab 07/04/17 [Rx Confirmed ] furosemide 40 mg tablet 40 mg PO DAILY #90 tab 07/30/17 [Rx Confirmed 10/27/17] atenolol 25 mg tablet 25 mg PO DAILY #90 tab 08/22/17 [Rx Confirmed 10/27/17] lisinopril 20 mg tablet 20 mg PO BID #180 tab 08/22/17 [Rx Confirmed 10/27/17] Ejection fraction %: 65 to 70 PFSH Medical History HLD (hyperlipidemia) (Chronic) HTN (hypertension) (Chronic ) Atherosclerosis of coronary artery bypass graft without angina pectoris (Chronic) Renal disease (Chronic) Persistent atrial fibrillation (Chronic) Dyspnea (Chronic) Sleep apnea (Chronic) Occlusion and stenosis of left carotid artery (Chronic) Atherosclerotic heart disease of [place] coronary artery without angina pectoris (Chronic) Obesity (BMI 30-39.9) (Chronic) Anxiety and depression (Chronic) Atri al fibrillation and flutter (Chronic) PAD (peripheral artery disease) (Chronic) Surgical History H/O shoulder replacement (Resolved) History of left hea rt catheterization (LHC) (Chronic) History of transurethral resection of prostate (Chronic) History of coronary artery bypass surgery (Chronic) Presence of aortocoronary bypass graft (Chronic) Family History Father Myocardial infarction Heart disease Mother CAD (coronary artery disease) Brother CAD (coronary artery disease) Diabetes Hx of CABG Sister Hypertension Pulmonary embolism Social History Smoking Status: Former smoker alcohol intake: former year quit: 2015 substance use type: does not use caffeine: Yes Type: cof fee Number of servings: 1 what type of physical activity do you participate in: none seatbelt use: always do you feel safe at home: Yes ROS Const Const: Negative for fatigue, weakness, night swe ats, excessive sweating, frequent falls, headache(s) or daytime sleepiness Eyes Eyes: Negative for loss of peripheral vision, transient loss of vision, blind spots, double vision or blurry vision ENT EN T: Negative for headache(s), dizziness, balance problems, Nosebleed/epistaxis, tongue swelling or lip swelling Cardio Chest Pain: No Palpitations: No Edema: None Muscle aches with walking: None Resp Res piratory: Positive for SOB with activity; negative for SOB at rest, SOB orthopnea\SOB lying down, Cough or paroxysmal nocturnal dyspnea GI GI: Negative nausea, vomiting, heartburn, black,tarry stools or bright, red blood in stools : Negative for hematuria Musc Musc: Negative for balance problems, muscle aches/ myalgia, muscle weakness or joint pain Skin Skin: Negative non-healing lesions, unusual bruising or rash Neuro Neuro: Negative for weakness, frequent falls, headache(s), double vision, dizziness, lightheadedness, orthostatic symptoms, blurry vision or lack of coordination Rusty Hematologic /Lymphatic: Negative for easy bruising or easy bleeding Endo Endo: Negative for fatigue, excessive sweating, cold intolerance, heat intolerance, increased thirst/drinking or hair loss Psych Psych: Negat bari for anxiety or depression Allergy Allergy/Immunology: Negative for throat swelling, Negative for tongue swelling, Negative for hives, Negative for rash, Negative for lip swelling Cardiology Exam C onst Appearance: cooperative, healthy appearing, well developed, well groomed and no acute distress Nutritional Appearance: well nourished and average body habitus Orientation: alert, awake and oriented x3 Head Head: normal to inspection, normocephalic and atraumatic Ears: hearing grossly normal bilaterally and external ears normal Nose: external nose normal, nasal mucous membranes and turbinates norm al, nares normal, septum normal, no nasal discharge Face and Sinus: face symmetric Mouth: oral mucosae normal, tongue normal, oropharynx normal and moist mucous membranes Teeth and gingiva: dentition no rmal Throat: posterior oropharynx normal, tonsils normal and uvula midline Eyes General: appearance normal, both eyes and all related structures Eyelids: eyelids normal Conjunctivae: conjunctivae normal Pupils: PERRL, normal by confrontation and accommodation normal EOM: EOM intact bilaterally Neck Carotids: bruit Bilateral Chest Chest inspection: normal inspection of the chest, symmetric chest moveme nt and normal respiratory effort Auscultation: Bilateral: Clear to Auscultation Cardio Palpation: normal PMI Rate: regular rate Rhythm: regular rhythm Heart sounds: S1 normal, S2 normal and normal, phys iologic split S2; negative rub, gallop or murmur GI GI: normal to inspection, soft, no hepatosplenomegaly and bowel sounds present Neuro General: alert, awake, oriented x3, no focal sensory deficit, gai t normal and moves all extremities Skin Skin: no rashes or lesions noted Extremities Pulses: Normal: Right Femoral Pulse, Left Femoral Pulse, Right Dorsalis Pedis Pulse, Left Dorsalis Pedis Pulse, Right Posterior Tibial Pulse, Left Posterior Tibial Pulse, Right Radial Pulse, Left Radial Pulse Lower Extremity Edema: None: Bilateral Musculoskel Musculoskeletal: No joint tenderness Psych Psychological: n ormal affect Assessment AND Plan 1. Atherosclerosis of coronary artery bypass graft of [place] heart without angina pectoris I25.810 Plan He is status post carotid bypass surgery doing well he did have a stress test in 2016 which was negative for ischemia. He tells me that he may be needing back surgery and at this time based on the above findings I do not see any contraindication to him undergoing s urgery. 2. Essential hypertension I10 Plan His blood pressure appears to be under excellent control on the current medical therapy no changes will be made at this particular time. 3. Atrial fibrillati on and flutter I48.91; I48.92 s/p ablation x 2 (flutter and fibrillation) Plan He does have a history of atrial fibrillation status post ablation he is maintaining sinus rhythm and is also tolerating t he Eliquis without any evidence of bleeding. 4. Occlusion and stenosis of left carotid artery I65.22 Plan He does have a history of carotid artery stenosis. And also has carotid bruit. His carotid ultr asound that was performed last year demonstrated mild to moderate range we will continue to monitor and I will suggest that we obtain a repeat carotid ultrasound. Orders Orders: 5. Pure hypercholestero lemia E78.00; E78.0 Plan He does have a history of hyperlipidemia on statin. His most recent lipid profile demonstrated total cholesterol 210 HDL 35 and LDL which could not be calculated his triglycerid es were elevated at 472. Aggressive risk factor modification has been emphasized. Will need to continue to check him for the metabolic syndrome. Thank you for allowing me to participate in the care of your patient. Please don't hesitate to call if any issues arise Plan Detail Follow Up 1 Year (contact center assistant) Coding Level of Care Code Off vis,est,level 4 Diagnoses Atherosclerosis of coronary artery bypass g raft of [place] heart without angina pectoris I25.810 Tribal vs. transplanted heart: [place]ct[place] heart Essential hypertension I10 Hypertension type: essential hypertension Atrial fibrillation and flutter I48. 91; I48.92 Occlusion and stenosis of left carotid artery I65.22 Pure hypercholesterolemia E78.00; E78.0 Hyperlipidemia type: pure hypercholesterolemia Coding Level of Care Code Off vis,est,level 4 Di agnoses Atherosclerosis of coronary artery bypass graft of [place] heart without angina pectoris I25.810 Tribal vs. transplanted heart: [place] heart Essential hypertension I10 Hypertension type: essentia l hypertension Atrial fibrillation and flutter I48.91; I48.92 Occlusion and stenosis of left carotid artery I65.22 Pure hypercholesterolemia E78.00; E78.0 Hyperlipidemia type: pure hypercholesterolemia 10/27/17 0935 <Electronically signed by Babatunde Maria MD> Date Babatunde Maria MD Cosigner Signature: Date (if applicable) CC: Jazz Rodas DO 22-Oct-2017 Spine Lumbar (Routine) Result: Comments: See Note; NOTES: [facility] Imaging Services [address] [place] [address] Spine Lumbar (Routine) MR#: [id number] Acct: [id number] Name: LETHA DEUTSCH Rep #: [id number] : 1950 M 66 From: Roberto Lunsford MD PCP: Jazz Rodas DO Status: REG CLI Study: Spine Lumbar (Routine) Date of Exam: 10/22/17 Exam# [id number] Ordering Dr: Brooklynn Ryan TRAFFIC AGENT-Karen STUDY: MRI L UMBAR SPINE WITHOUT CONTRAST REASON FOR EXAM: Male, 66 years old. Spinal stenosis, low back pain and difficulty walking x20 years. TECHNIQUE: Standardized fat and water weighted pulse sequences were o btained in the sagittal and axial planes. COMPARISON: MRI lumbar spine 06/13/2014. CT lumbar spine without contrast 05/02/2015. FINDINGS: Partial sacralization of L5 is confirmed on CT of the lumbar spine dated 05/02/2015. T10-T11: (Sagittal only). Normal endplates. Normal disc height, hydration and morphology. Normal central canal and bilateral intervertebral neura l foramina. T11-T12: (Sagittal only). Normal endplates. Normal disc height, hydration and morphology. Normal central canal and bilateral intervertebral neural foramina. T12-L1: (Sagittal only). Normal endplates. Normal disc height, hydration and morphology. Normal central canal and bilateral intervertebral neural foramina. Normal lumbar lordosis. There is no substantial scoliosis. Normal conus medu llaris that terminates at the upper T12 vertebral body level. L1-2: Anterior marginal spurs. Schmorl's node in the L1 inferior endplate. Moderate disc space height narrowing. Anterior disc protrusion i n between the anterior marginal spurs. No extruded disc fragment. Normal central canal and bilateral lateral recesses. Mild left degenerative facet arthropathy. Normal right facet joint. Normal bilatera l intervertebral neural foramina. L2-3: Schmorl's node in the L2 inferior endplate. Normal L3 superior endplate. Moderate disc space height narrowing with small posterior bulging disc. Mild central can al stenosis secondary to developmentally short pedicles. The AP canal diameter is 10 mm. Moderate right degenerative facet arthropathy. Mild left degenerative facet arthropathy. Normal bilateral interve rtebral neural foramina. L3-4: Moderate disc space height narrowing with moderate loss of disc hydration. Degenerative vacuum phenomenon. No extruded disc fragment. Moderate central canal stenosis seco ndary to developmentally short pedicles and dorsal epidural lipomatosis. The AP canal diameter is 8.5 mm. Normal bilateral lateral recesses. Moderate bilateral degenerative facet arthropathy. Mild steno sis of the bilateral intervertebral neural foramina. L4-5: Normal endplates. Degenerative vacuum phenomenon with moderate loss of disc hydration. Mild degenerative anterolisthesis of L4 on L5. Moderate central canal stenosis. The AP canal diameter is 8.2 mm. Pronounced bilateral degenerative facet arthropathy. Mild stenosis of the right intervertebral neural foramen. Normal left intervertebral neural foramen. L5-S1: Normal endplates. Hypoplastic disc. Normal disc hydration and morphology. Normal central canal and bilateral lateral recesses. Normal facet joints. Normal bilateral intervertebral neur al foramina. Normal visualized sacral ala. Normal visualized paraspinous soft tissue structures. MRI/Spine Lumbar (Routine) IMPRESSION: 1. No M RI evidence of lumbar extruded disc fragment or nerve root displacement. 2. Partial sacralization of L5 accounting for hypoplastic L5-S1 disc. 3. Mild degenerative anterolisthesis of L4 on L5 with mod erate central canal stenosis and pronounced bilateral degenerative facet arthropathy. 4. Moderate central canal stenosis at L3-L4 disc level secondary to developmentally short pedicles and dorsal epidu ral lipomatosis. 5. Mild central canal stenosis at L2-L3 disc level with small posterior bulging disc and moderate right degenerative facet arthropathy. 6. Moderate L1-L2 disc space height narrowing w ith mild left degenerative facet arthropathy. 7. No significant interval changes when compared to 06/13/[address] of the lumbar spine dated 05/02/2015. Electronically Signed: Roberto Lunsford MD valeriano t 15:05 EDT , Service support , CC: Brooklynn Ryan; Jazz Rodas DO Metal Roofing Mechanic: Signed 14-Apr-2017 Cardiology Visit Report Result: Comments: See Note; NOTES: [address] [place] [address] OFFICE VISIT Date of Service: 04/14/17 MR#: [id number] Acct: [id number] Name: LETHA DEUTSCH Rep #: [id number] : 1950 Provider: Hyun Iglesias Age/Sex: 66/M Location: [facility] [place] Status: Signed HPI 6 M FU: Details: LETHA DEUTSCH, is a 66 M who presents to the office today for here t [place] for a cardiovascular follow-up. He has a history of coronary artery disease with bypass surgery in 1996. He had an BETHEA to the LAD, SVG to the circumflex and diagonal. He also had stents to his rig ht and left iliac arteries. In 2011 he had a heart catheterization which demonstrated left main with 70% distal disease, LAD 30-40% mid stenosis, circumflex 80-90% stenosis, OM1 30% stenosis, patent LAD , diagonal and OM. In 2011 he had an atrial flutter ablation. Unfortunately this did not hold and he had to further cardioversions and was successful in 2011 where he underwent a second ablation. Unfor tunately in August of this year he had a suspected GI bleed and had an INR greater of 19. He was given vitamin K and 4 units of fresh frozen plasma. At that time he was noted to have hemoglobin of 7. Stre ss test in 2016 was negative for ischemia. Echocardiogram in 2017 demonstrated an ejection fraction of 65%. Left ventricular systolic function is normal. Mild to moderate mitral insufficiency. Mild to moderate tricuspid insufficiency. Improvement in his EF was noted since his previous cardioversion. Ejection fraction at that time was 50%. He does use his Bipap routinely. He does not have any chest pain/heaviness tightness. He does not have any Worsening SOB. He does not have any orthopnea. He does not have any palpitations. He does not have any near syncope/syncope. He does not have any edema. He does not have any symptoms of claudication. Intake Vital Signs04/14/17 Height 5 ft 5 in 04/14/17 Weight: 241 lb 04/14/17 Body Mass Index (BMI) 40.1 04/14/17 Blood Pressure 138/62 04/14/17 Blood Pressu re Location Lt brachial Intake Visit Reasons: 6 M FU Manager Placement Required: No Accompanied by: None Is patient in pain?: No Allergies gabapentin Adverse Reaction (Verified 09/02/16 21:42) Other warfar in [From Coumadin] Adverse Reaction (Verified 04/13/17 08:23) very sensitive, high INR and GI bleed Medications Aspirin E.C. [Ecotrin] 81 mg PO QHS 01/22/15 [History Confirmed 04/14/17] Atenolol [Ten ormin (beta mickey)] 25 mg PO DAILY 01/22/15 [History Confirmed 04/14/17] Atorvastatin Calcium [Lipitor] 40 mg PO DAILY 01/22/15 [History Confirmed 04/14/17] Lisinopril 20 mg PO BID 01/22/15 [History C onfirmed 04/14/17] Modafinil [Provigil] 200 mg PO BID 01/22/15 [History Confirmed 04/14/17] Multivitamins,Therapeutic [Multivitamin] 1 tab PO DAILY 01/22/15 [History Confirmed 04/14/17] Furosemide [Lasi x] 40 mg PO DAILY 09/15/15 [History Confirmed 04/14/17] Fenofibrate [Lofibra] 54 mg PO QHS 02/13/16 [History Confirmed 04/14/17] Sertraline HCl [Zoloft] 50 mg PO DAILY 02/13/16 [History Confirmed ] Cholecalciferol (Vitamin D3) [Vitamin D3] 5,000 unit PO DAILY 06/23/16 [History Confirmed 04/14/17] apixaban 5 mg tablet PO 30 Days #60 04/14/17 [History Confirmed 04/14/17] pantoprazole 40 mg table t,delayed release PO 30 Days #30 04/14/17 [History Confirmed 04/14/17] Ejection fraction %: 65 to 70 PFSH Medical History HLD (hyperlipidemia) (Chronic) HTN (hypertension) (Chronic) Atherosclerosis of coronary artery bypass graft without angina pectoris (Chronic) Renal disease (Chronic) Atrial flutter (Chronic) Hypertriglyceridemia (Chronic) Persistent atrial fibrillation (Chronic) Peripheral vasc ular disease, unspecified (Chronic) Dyspnea (Chronic) Sleep apnea (Chronic) Occlusion and stenosis of left carotid artery (Chronic) Atherosclerotic heart disease of [place] coronary artery without angina pectoris (Chronic) HTN (hypertension) (Chronic) HLD (hyperlipidemia) (Chronic) Obesity (BMI 30-39.9) (Chronic) Anxiety and depression (Chronic) Atrial fibrillation and flutter (Chronic) Carotid stenosi s, bilateral (Chronic) PAD (peripheral artery disease) (Chronic) JD (obstructive sleep apnea) (Chronic) CAD (coronary artery disease) (Chronic) Blood loss anemia (Chronic) Supratherapeutic INR (Chronic ) Acute alcohol intoxication (Chronic) Hypertriglyceridemia (Chronic) Rotator cuff tear arthropathy of right shoulder (Chronic) Slurred speech (Chronic) Afib (Chronic) pad with stents leg (Chronic) Galindo rgical History Presence of aortocoronary bypass graft (Chronic) History of left heart catheterization (LHC) (Chronic) History of transurethral resection of prostate (Chronic) Family History Father De ceased Myocardial infarction Heart disease Mother CAD (coronary artery disease) Brother CAD (coronary artery disease) Diabetes Hx of CABG Sister Hypertension Pulmonary embolism Socia l History Smoking Status: Former smoker alcohol intake: former year quit: 2016 substance use type: does not use caffeine: Yes Type: coffee Number of servings: 1 what type of physical activity do you participate in: none seatbelt use: always do you feel safe at home: Yes ROS Const Const: Negative for weakness, fatigue, fever(s) or headache(s) Eyes Eyes: Negative for blind spots, loss of wen pheral vision or transient loss of vision ENT ENT: Negative for headache(s), Negative for dizziness, Negative for tinnitus, Negative for Nosebleed/epistaxis Cardio Chest Pain: No Palpitations: Positive for No Edema: None Muscle aches with walking: None Resp Respiratory: Negative for SOB with activity, SOB at rest or SOB orthopnea\SOB lying down GI GI: Negative nausea, vomiting, heartburn or vomiting b lood/hematemesis : Negative for hematuria Musc Musc: Negative for muscle aches/ myalgia Neuro Neuro: Negative for weakness, Negative for headache(s), Negative for dizziness, Negative for near synco pe, Negative for syncope, Negative for lightheadedness Rusty Hematologic/Lymphatic: Negative for easy bleeding Endo Endo: Negative for fatigue Cardiology Exam Const Appearance: cooperative, no acute di stress and well developed Orientation: alert, awake and oriented x3 Head Head: normocephalic and atraumatic Mouth: moist mucous membranes Eyes General: appearance normal, both eyes and all related struc tures Conjunctivae: conjunctivae normal Pupils: PERRL EOM: EOM intact bilaterally Neck Neck: normal visual inspection, no lymphadenopathy and no JVD Carotids: bruit Left Neck Mass: Negative Neck mass Ch est Chest inspection: normal inspection of the chest and symmetric chest movement Auscultation: Bilateral: Clear to Auscultation Cardio Palpation: normal PMI Rate: regular rate Rhythm: regular rhythm He art sounds: S1 normal and S2 normal; negative rub, gallop or murmur GI GI: normal to inspection, soft, no hepatosplenomegaly and bowel sounds present; negative tender Neuro General: alert, awake, orient ed x3, CN's II-XI intact bilaterally and moves all extremities Extremities Pulses: Normal: Right Radial Pulse, Left Radial Pulse, Diminished: Right Posterior Tibial Pulse, Left Posterior Tibial Pulse Lo wer Extremity Edema: None: Bilateral Psych Psychological: normal affect Assessment AND Plan 1. Atherosclerosis of coronary artery bypass graft of [place] heart without angina pectoris I25.810; I25.810; I25.810 Plan - LEDA Millard Stable, from a cardiac standpoint patient does not have any symptoms of angina. We recommend that they continue with current aggressive medical management and ri sk factor modification. 2. Hyperlipidemia, unspecified hyperlipidemia type E78.5 Plan - LEDA Millard Recent lipid profile demonstrates total cholesterol of 226, HDL 55, LDL 132, triglycerid es 246. These are similar to what they have been. Did discuss dietary modifications in addition to exercise. Patient is on fenofibrate and atorvastatin. Currently will continue with current medical cara awan. 3. Essential hypertension I10 Plan - LEDA Millard Blood pressure is well controlled on current medications, we do not recommend any changes at this time. 4. Persistent atrial fibri llation I48.1 Plan - LEDA Millard Patient is on a factor Xa inhibitor. He has maintained sinus rhythm post his second ablation. We will continue to monitor. 5. Peripheral vascular disease, unspecified I73.9 LEDA Barrientos Patient does not have any symptoms of claudication. We will continue to monitor. 6. Occlusion and stenosis of left carotid artery I65.22 Plan - LEDA Menard It was noted that he had a newly found left carotid bruit however when reviewing medical records he did have a carotid ultrasound earlier this year that was ordered by neurology. It wa s noted that he does have carotid artery disease that is in the mild to moderate range. We will continue to monitor. Plan Detail Additional Comments - LEDA Millard The above patient was dis cussed with Dr. Maria, he agrees with plan of care. Thank you for allowing us to participate in patient's plan of care, if you have any questions please do not hesitate to call. This note was generate d using a voice recognition system and there may be incorrect words, spelling or punctuation errors that were not noted when reviewing the office note prior to saving. 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 (TRAINING EXECUTIVE) 1018 <Electronically signed by Hyun TOMPKINS> Date Hyun TOMPKINS 04/14/17 1020<Electronically signed by Babatunde Maria MD> Cosigner Signature: Date (if applicable) Babatunde Maria MD CC: Jazz Irvin LAURA 23-Jun-2016 Brain/Head without Contrast Result: Comments: See Note; NOTES: [facility] Imaging Services [address] [place] [address] Verdana 4d Brain/Head without Contrast MR#: [id number] Acct: [id number] Name: [facility] Rep #: [id number] : 1950 M 65 From: Chago Loera MD PCP: Jazz Rodas DO Status: REG ER Study: Brain/Head without Contrast Date of Exam: 06/23/16 Exam# [id number] Ordering Dr: Isiah Gloria MD STUDY: CT BRAIN WITHOUT CONTRAST REASON FOR EXAM: Male, 65 years old. Weakness. Recent fall. RADIATION DOSAGE (If Supplied By Facility): CTDIvol = ( 44.99 ) mGy, DLP = ( 796.11 ) mGycm T ECHNIQUE: Transaxial CT imaging of the brain was performed without administration of intravenous contrast material. Individualized dose optimization techniques were used for this CT. COMPARISON: September 25, 2015. FINDINGS: Normal soft tissue structures. Normal calvarium. There is mild cerebral atrophy with widening of the extra- axial spaces and ventricular dilatati on. There are areas of decreased attenuation within the white matter tracts of the supratentorial brain, consistent with microvascular disease changes. Normal basal ganglia and thalami. Normal brainstem . Normal cerebellum. There is no intracranial hemorrhage. There are no findings of an acute ischemic infarction. There is mucoperiosteal inflammatory disease of the paranasal sinuses consistent with m ild chronic sinusitis. CT/Brain/Head without Contrast IMPRESSION: Chronic involutional changes of the brain. Results discussed with Dr. Gloria at 8:15 p.m. N.B. : The above information has been verbally conveyed by Chago Loera MD to dr gloria, Referring Physician, on 06/23/2016 20:19:35 (ET). Electronically Signed: Chago Loera MD 06/23 at 20:16 EDT , Service support [phone], N.B. : The above information has been verbally conveyed by Chago Loera MD to dr gloria, Referring Physician, on 20:19:35 (ET). CC: Emili Gloria MD; Jazz Rodas DO Metal Roofing Mechanic: Signed 23-Jun-2016 Chest 1 View Result: Comments: See Note; NOTES: [facility] Imaging Services [address] [place] [address] Verdana 4d Chest 1 View MR#: [id number] Acct: [id number] Name: LETHA DEUTSCH Rep #: [id number] : 1950 65 From: Chago Loera MD PCP: Jazz Rodas DO Status: REG ER Study: Chest 1 View Date of Exam: 06/23/16 Exam# [id number] Ordering Dr: Emili Gloria MD STUDY: X-RAY CHES T REASON FOR EXAM: Male, 65 years old. Recent fall. TECHNIQUE: Single AP portable view of the chest. COMPARISON: June 07, 2016 FINDINGS: There are monitoring devices. There are interstitial fibrotic changes of the lungs. There is pleural fibrotic scarring of the right costophrenic angle. Sternal cerclage wires are present from a prior sternotomy. There is cardiac enlargement. Normal mediastinum and laxmi. Normal visualized pulmonary arteries. Normal visualized aortic arch and descending thoracic aorta. Normal visualized thoracic spine. Normal visualized ribs, clavicles, and shoulders. There is no demonstrated abnormality of the visualized soft tissue structures of the upper abdomen. RAD/Chest 1 View IMPRESSION: Cardiac enlargement. No focal infiltrate. Electronically Signed: Chago Loera MD at 20:28 EDT , Service support [phone], CC: Emili Gloria MD; Jazz Rodas DO Metal Roofing Mechanic: Signed 09-Jun-2016 Pulmonary Function Report Comp Result: Comments: See Note; NOTES: [facility] Pulmonary Services/Neurology [address] [place] [address] Pulmonary Function Test (Comp) MR#: [id number] Acct: [id number] Name: LETHA DEUTSCH Rep #: [id number] : 1950 65 From: Rodolfo Palacios DO Referring Dr: Rodolfo Palacios D.O. Status: REG CLI Ordering Dr: Rodolfo Palacios DO Date: 06/08/16 Location: [facility] Sex: M C DATE OF SERVICE: INTRODUCTION: The patient is a 65-year-old male currently being seen by myself who presents for pulmonary function testing secondary to a diagnosis of obesity. Respiratory therapy rep orts good patient effort and reports no other concerns. Bronchodilators were used during testing. INTERPRETATION: Forced expiration spirometry demonstrates no evidence of a large airways obstructive ve ntilatory defect. There was no significant response to aerosolized bronchodilators. Spirograms are of good quality and plateau normally. The respiratory flow volume loop reveals decreased expiratory geo w rates at high lung volumes consistent with small airways obstruction. Body plethysmography was performed and reveals symmetrically reduced lung volumes with a TLC of 4.42 liters, 79% of predicted, ind icative of a mild restrictive ventilatory defect. The ERV was decreased to 16% of predicted, likely indicative of a body habitus effect. The airway resistance is normal. Diffusion capacity by single adelina ath CO is mildly reduced at 66% of predicted. IMPRESSION: These pulmonary function studies demonstrate the presence of a mild restrictive ventilatory defect with associated mild reduction in diffusion capacity. There are no previous pulmonary function studies available for comparison. Clinical correlation is recommended. DO Karen Gurrola C: T: NTS JOB: [id number] 06/09/16 1357 &# 60;Electronically signed by Rodolfo Palacios DO> Date Rodolfo Palacios DO CC: Rodolfo Palacios D.O.; Jazz Rodas DO Date Dictated: 06/09/16829 Date Transcribed: 06/09/16829 Metal Roofing Mechanic: Signed 07-Jun-2016 Chest PA and Lateral Result: Comments: See Note; NOTES: [facility] Imaging Services [address] [place] [address] Verdana 4d Chest PA and Lateral MR#: [id number] Acct: [id number] Name: LETHA DEUTSCH p #: [id number] : 1950 65 From: Real Miller MD PCP: Jazz Rodas DO Status: REG CLI Study: Chest PA and Lateral Date of Exam: 06/07/16 Exam# [id number] Ordering Dr: Hyun Iglesias PA STUDY: X-RAY CHEST REASON FOR EXAM: Male, 65 years old. Dyspnea, A. fib, history of triple bypass TECHNIQUE: PA and lateral views of the chest. COMPARISON: Prior study of 09/09/2015 FINDINGS: The lungs are clear and expanded. There is blunting of the posterior costophrenic angles consistent with small effusions. There is hemidiaphragmatic flattening whic h may be associated with COPD. There is borderline cardiomegaly. Status post sternotomy changes are present. Normal mediastinum and laxmi. Normal visualized pulmonary arteries. There are calcified plaqu es of the thoracic aorta. There are diffuse degenerative changes of the visualized thoracic spine. Status post total right shoulder replacement changes are seen. There is no demonstrated abnormality o f the visualized soft tissue structures of the upper abdomen. RAD/Chest PA and Lateral IMPRESSION: 1. Blunting of the posterior costophrenic angl es consistent with small effusions. These represent a new interval finding. 2. Hemidiaphragmatic flattening which may be associated with COPD. 3. Borderline heart size. Status post sternotomy. 4. Calcif ied plaques of the thoracic aorta. 5. Diffuse degenerative changes of the thoracic spine. 6. Status post total right shoulder replacement changes. Electronically Signed: Real Miller MD at 16:15 EST , Service support [phone], CC: Jazz Rodas DO; Hyun Iglesias Metal Roofing Mechanic: Signed 01-Jun-2016 Carotid Duplex Ultrasound Result: Comments: See Note; NOTES: [facility] Cardiovascular Services [address] [place] [address] Carotid Duplex Ultrasound 06/01/16 1000 MR#: [id number] Acct: [id number] Name: LETHA MASON Rep #: [id number] : 1950 65 From: Cassi Rousseau MD Attending Dr: Rodolfo Palacios D.O. Status: REG CLI Ordering Dr: Gennaro Larsen MD Date: 06/01/16 Location: [facility] Sex: M C Admit alcon: Reason For Study: Carotid stenosis Rt. Velocities/BP Lt. Velocities/BP Prox CCA 56.3/10.6 cm/sec. Prox CCA 91.5/16.4 cm/sec. Mid CCA 62.1/15.2 cm/sec. Mid CCA 93.8/16.4 cm/sec. Dist CCA 61.0/ 12.9 cm/sec. Dist CCA 90.9/19.9 cm/sec. Prox ICA 86.8/21.1 cm/sec. Prox ICA 114.0/28.3 cm/sec. Mid ICA 83.3/21.7 cm/sec. Mid ICA 98.2/21.2 cm/sec. Dist ICA 73.9/18.2 cm/sec. Dist ICA 81.5/13.5 cm/sec. R t. ICA/CCA = 1.4. Lt. ICA/CCA = 1.2. Prox ECA 76.8/7.6 cm/sec. Prox ECA 127.0/10.2 cm/sec. Rt. Vert. 53.9/13.5 cm/sec. Lt. Vert. 54.5/10.6 cm/sec. Right Extracranial There is heterogeneous, irregular a therosclerotic plaque noted in the right common carotid artery. There is heterogeneous, irregular atherosclerotic plaque noted in the right internal carotid artery. There is no significant atherosclerot ic plaque noted in the right external carotid artery. Antegrade flow is noted in the right vertebral artery. Left Extracranial There is heterogeneous, irregular atherosclerotic plaque noted in the left common carotid artery. There is heterogeneous, irregular atherosclerotic plaque noted in the left internal carotid artery. The atherosclerotic plaque causes acoustic shadowing. There is no significant atherosclerotic plaque noted in the left external carotid artery. Antegrade flow is noted in the left vertebral artery. Procedure Carotid Duplex 54765. Technically difficult due to body habitus. Exam p erformed in department. Interpretation Summary There is <50% stenosis in bilateral Internal carotid arteries based on the velocity criteria. There is irregular heterogenous plaque noted in both Internal carotid arteries. The stenosis on the left internal carotid artery may be underestimated due to the presence of acoustic shadowing. There is irregular heterogenous atherosclerotic plaque note d in both Common carotid arteries. There is no significant atherosclerotic plaque noted in the external carotid arteries bilaterally. Antegrade flow noted in both the vertebral arteries. 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 Status: REG CLI Ordering Dr: Rodolfo Palacios DO Date: 06/01/16 Location: CVS Sex: M C Admitted: Reason For Andrew dy: DYSPNEA Procedure This was a 2D Doppler, Color Flow transthoracic echocardiogram. Exam performed in department. Left Ventricle Normal LV size. The estimated ejection fraction is 65 %. Left ventric ular systolic function is normal. No regional wall motion abnormalities noted. Right Ventricle Normal RV size. Normal systolic function. Atria The left atrium is moderately enlarged. Normal right atri um. Mitral Valve Normal mitral valve. Mild-Moderate (1-2+) eccentric mitral valve insufficiency. Tricuspid Valve Normal tricuspid valve. Mild to moderate (1-2+) tricuspid valve insufficiency. Pulmonary artery systolic pressure is 34 mmHg. Aortic Valve Normal aortic valve. Pulmonic Valve Normal pulmonic valve. Great Vessels Normal aortic root. The pulmonary artery is normal size. Normal inferior ve na cava. Pericardium/Pleural No pericardial effusion. MMode/2D Measurements & Calculations LVIDd: 4.6 cm IVSd: 1.1 cm Ao root diam: 3.2 cm LVIDs: 3.0 cm LVPWd: 1.2 cm LA dimension: 5.8 cm RVDd : 3.2 cm FS: 35.3 % LAV(MOD-bp): 106.7 ml LA A4 area: 26.8 cm2 RA A4 area: 19.1 cm2 LAV(MOD-bp) Indexed: 50.7 ml/m2 LAV( MOD-sp2): 142.8 ml LAV(MOD-sp4): 79.9 ml Time Measurements MV dec time: 0.20 sec Doppler Measurements & Calculations MV E max angie: 130.4 cm/sec Lat Peak E' Angie: 8.3 cm/sec Med Peak E' Angie: 6.6 cm/sec MV A max angie: 30.2 cm/sec E/E' lat: 15.7 E/E' med: 19.8 MV E/A: 4.3 Ao V2 max: 112.2 cm/sec LV V1 max: 99.2 cm/se c PA V2 max: 93.4 cm/sec Ao max P.0 mmHg LV V1 max P.9 mmHg TR max angie: 274.9 cm/sec TR max P.2 mmHg Inter pretation Summary Normal LV size. The estimated ejection fraction is 65 %. Left ventricular systolic function is normal. Mild-Moderate (1-2+) eccentric mitral valve insufficiency. Mild to moderate (1-2+ ) tricuspid valve insufficiency. Ordering Physician: Rodolfo Palacios D.O. Referring Physician: Jazz Dacosta Performed By: Florencio Nichols RCS 06/01/16 1251 Date Babatunde Maria MD CC: Rodolfo Palacios D.O.; Jazz Rodas DO Date Dictated: 06/01/16 0909 Date Transcribed: 06/01/16 1251 Metal Roofing Mechanic: Signed 26-May-2016 6 Minute Walk Test Result: Comments: See Note; NOTES: [facility] Pulmonary Services/Neurology [address] [place] [address] MR#: [id number] Acct: [id number] Name: LETHA DEUTSCH Rep #: [id number] : 1950 65 From: Rodolfo Palacios DO Referring Dr: Rodolfo Palacios D.O. Date: Ordering Dr: Sex: M C Location: PSN PSN 6 Minute Walk Test - 6 Minute Walk Test 6 Minute Walk Test: 6 Minute Walk Test PSN :6-Minute Walk Test Start: 05/25/16 12:52 Freq: Status: Active Document 05/25/16 12:52 LORENA (Rec: 05/25/16 12:54 LORENA [id number]) 6 Minute Walk Test Date Performed 05/25/16 Time Performed 12:45 Hei ght 1.68 m Weight: 102.058 kg Weight in Pounds 225.[address]: Rodolfo Palacios Assistive device used: None Pre-test Oxygen Delivery Method Room Air Pulse Ox 95 Pulse Rate (beats/min) 49 Dyspnea Amara Scale (0-10) 0 Exertion Amara Scale (6-20) 6 1st minute Oxygen Delivery Method Room Air Pulse Ox 94 Pulse Rate (beats/min) 63 2nd minute Oxygen Delivery Method Room Air Pulse Ox 94 Pulse Rate (beats/min) 60 3rd minute Oxygen Delivery Method Room Air Pulse Ox 95 Pulse Rate (beats/min) 62 4th minute Oxygen Delivery Method Room Air Pulse Ox 98 Pulse Rate (beats/min) 62 5th minute Oxygen Delivery Method Ro om Air Pulse Ox 95 Pulse Rate (beats/min) 64 6th minute Oxygen Delivery Method Room Air Pulse Ox 97 Pulse Rate (beats/min) 63 Dyspnea Amara Scale (0-10) 3 Exertion Amara Scale (6-20) 11 Post-test Oxygen D elivery Method Room Air Pulse Ox 97 Pulse Rate (beats/min) 55 Full Laps Walked 15 Partial Lap, Number of Tiles Walked 95 Total Distance Walked (ft) 980 - Interpretation Interpretation: The patient em ulated 980 feet over the course of 6 minutes on room air without assistive devices or breaks. Pretesting oxygen saturation was noted to be 95%. With ambulation, the philipp oxygen saturation was 94%. Ther e was no significant oxygen desaturation with exertion. - Recommendations Recommendations: There is no indication for the use of supplemental oxygen at this time. 05/26/1648 <Electronical ly signed by Rodolfo Palacios DO> Date Rodolfo Palacios DO CC: Date Dictated: 05/26/16946 Date Transcribed: 05/26/16946 Metal Roofing Mechanic: Rodolfo Palacios DO Signed 21-Apr-2016 Venous Duplex Lower Extremity Result: Comments: See Note; NOTES: [facility] Cardiovascular Services [address] [place] [address] Venous Duplex US, Unilateral 04/21/16 1619 MR#: [id number] Acct: [id number] Name: LETHA ARTHUR Rep #: [id number] : 1950 65 From: Kwaku Ahmadi MD Attending Dr: Raya Albarran Status: REG CLI Ordering Dr: Raya Albarran Date: 04/21/16 Location: CVS Sex: M C Admitted: Reason For Study: LLE edema RIGHT LEFT CFV is compressible, spontaneous, phasic, GSV is normal. competent and demonstrates normal CFV is compressible, spontaneous, phasic , augmentation. competent, and demon strates normal Procedure augmentation. Exam performed in department. FV is compressible, spontaneous, phasic, A preliminary report was called and/or faxed competent and demonstrates normal to Dr. Albarran. augmentation. POP V is compressible, spontaneous, phasic, competent and demonstrates normal augmentation. T/P Trunk is compressible. PTV is compressible. LT PerV is compressible. Interpretation Summary Deep veins of the left lower extremity are patent and compressible segmentally. There is no evidence of left lower extremity deep vein thrombosis. Valvular competence appears intact within the proximal deep venous system on the left . The left greater saphenous vein appears patent and compressible segmentally. __ Ordering Physician: Raya Albarran Referring Physician: Jazz Rodas Performed By: Karon Harris RVT 04/21/16 182 7 Date Kwaku Ahmadi MD CC: Jzaz Albarran Date Dictated: 04/21/16 1619 Date Transcribed: 04/21/16 1827 Metal Roofing Mechanic: Signed 16-Apr-2016 Pelvis WITH IV Contrast Result: Comments: See Note; NOTES: [facility] Imaging Services [address] [place] [address] Verdana 4d Pelvis WITH IV Contrast MR#: [id number] Acct: [id number] Name: LETHA DEUTSCH Rep #: [id number] : 1950 M 65 From: Gurpreet De Anda DO PCP: Jazz Rodas DO Status: REG CLI Study: Pelvis WITH IV Contrast Date of Exam: 04/16/16 Exam# [id number] Ordering Dr: Jazz Rodas STUDY: CT PELVIS WITH CONTRAST REASON FOR EXAM: Male, 65 years old. Cellulitis of the left buttock. RADIATION DOSAGE (If Supplied By Facility): CTDIvol = ( 28.15 ) mGy, DLP = ( 1171.71 ) mGycm TE CHNIQUE: Transaxial imaging of the pelvis was performed without oral contrast. 100 ml of Isovue 300 contrast was administered intravenously. Multiplanar coronal and sagittal images were reformatted. In dividualized dose optimization techniques were used for this CT. COMPARISON: Ultrasound, left buttock, April 14, 2016. FINDINGS: The urinary bladder is nondistende d. Normal prostate and seminal vesicles. Normal visualized small intestine. Sigmoid diverticulosis without acute inflammatory change. The remainder the visualized colon is normal. Normal appendix. The re is no pelvic fluid. There is no pelvic lymphadenopathy or mass lesion. There is diffuse atherosclerotic calcification of the pelvic arteries. Normal abdominal wall. Normal osseous structures. Ther e is mild stranding of the subcutaneous fat over the left buttock. There is evidence of small nodular densities subcutaneous tissue anterior to small further characterize thought to correlate with the t iny subcutaneous nodule seen on the ultrasound. Largest visualized nodule measures 2.5 mm in diameter. There is no fluid collection or large mass. The underlying musculature appears slightly denser than the corresponding right gluteal muscle there is however no evidence of abscess or mass. CT/Pelvis WITH IV Contrast IMPRESSION: Minimal stranding subcutaneous fat of the left buttock. This a question of very tiny nodular densities along the underside of the cutaneous surface. Slightly amorphous density on the right gluteal muscle when compared t o the left. There is however no definite mass or infiltrate. Electronically Signed: Gurpreet De Anda DO at 9:03 EST Tel [phone], Service support [phone], CC: Ivory Rodas DO Metal Roofing Mechanic: Signed 14-Apr-2016 Other BP Soft Tissue Result: Comments: See Note; NOTES: [facility] Imaging Services [address] [place] [address] Verdana 4d Other BP Soft Tissue MR#: [id number] Acct: [id number] Name: LETHA DEUTSCH Re p #: [id number] : 1950 M 65 From: Gurpreet Acunaon PCP: Jazz Rodas DO Status: REG CLI Study: Other BP Soft Tissue Date of Exam: 04/14/16 Exam# [id number] Ordering Dr: Raya Albarran STUDY: GALINDO PERFICIAL ULTRASOUND - LEFT BUTTOCK REASON FOR EXAM: Male, 65 years old. Area of erythema and cellulitis. TECHNIQUE: A superficial ultrasound was performed with real-time and static aguirre-scale imaging . COMPARISON: None. FINDINGS: Real-time sonographic imaging was performed over the left buttock. Just medial to the area of erythema and cellulitis are 5 small sub cutaneous nodules. These are hypodense in leg. Along the underside of the skin surface. These all measure approximately 5 mm in diameter. Question lymph nodes versus sebaceous cyst. US/Other BP Soft Tissue IMPRESSION: Multiple subcutaneous nodules in the left buttock. Sebaceous cysts versus lymph nodes. Electronically Signed: Gurpreet De Anda DO 27/04/03 at 12:37 EST Tel [phone], Service support [phone], CC: Jazz Rodas DO; Raya Albarran Metal Roofing Mechanic: Signed 18-Feb-2016 12 Lead Electrocardiogram Result: Comments: See Note; NOTES: [facility] Cardiovascular Services [address] [place] [address] 12 Lead EKG 02/16/16 1238 MR#: [id number] Acct: [id number] Name: LETHA DEUTSCH Rep #: [id number] : 1950 65 From: Johnie Montaño MD Attending Dr: Babatunde Maria MD Status: DEP CLI Ordering Dr: Babatunde Maria MD Date: 02/16/16 Location: [facility] Sex: M C Admitted: Test Reason : P OST DCCV Blood Pressure : / mmHG Vent. Rate : 054 BPM Atrial Rate : 054 BPM P-R Int : 180 ms QRS Dur : 098 ms QT Int : 466 ms P-R-T Axes : 063 -29 -04 degrees QTc Int : 441 ms Sinus bradycardia L eftward axis Poor R wave progression Nonspecific ST and T wave abnormality Abnormal ECG Confirmed by SCOTT PERERA, JOHNIE ([id number]), department editor BECK DOSS ([id number]) on 02/18/2016 2:53:30 PM Referred By: EDWIN Confirmed By:JOHNIE MONTAÑO MD 02/18/16 1453 Date Johnie Montaño MD CC: Jazz Rodas DO Date Dictated: 02/16/16 1238 Date Transcribed: 02/16/16 1238 Metal Roofing Mechanic: Signed 17-Feb-2016 Operative Report Result: Comments: See Note; NOTES: [facility] Medical Records Department [address] [place] [address] Operative Report MR#: [id number] Acct: [id number] Name: LETHA DEUTSCH Rep #: [id number] : 1950 65 From: Rodolfo Palacios DO PCP: Jazz Rodas DO Status: DEP CLI DATE OF SERVICE: 02/16/2016 CONSCIOUS SEDATION REPORT BRIEF HISTORY OF PRESENT ILLNESS: The patient is a 65-year-old male, currently under the care of Dr. Maria, who presents for an elective cardioversion secondary to atrial fibrillation. The patient has a longstanding history of atrial fibrillat ion and other cardiac issues including a triple bypass surgery at [facility] in 1996 followed by an ablation procedure in 2011 at [facility]. The patient has never been diagnosed with COPD or asthma. He espitia s carry a diagnosis of obstructive sleep apnea for which he is compliant with home nocturnal CPAP. He reports no previous anesthetic complications. His last surface echocardiogram revealed an ejection f raction of 65%. The patient is currently therapeutically anticoagulated with Coumadin and an INR today of 2.4. The patient denies any recent fever, chills, nausea, vomiting or diarrhea. PHYSICAL EXAMIN ATION: VITAL SIGNS: Reviewed and were acceptable. GENERAL: The patient is an obese male, in no apparent distress, speaking in complete sentences. HEENT: Normocephalic and atraumatic. Mucous me mbranes are moist and pink. No scleral icterus and injection is noted. CHEST: Irregularly irregular, S1 and S2, no murmurs, rubs or gallops were appreciated. LUNGS: Clear to auscultation bilaterally wit hout any appreciable wheeze, rales or rhonchi. ABDOMEN: Soft, nontender and nondistended. Positive bowel sounds. EXTREMITIES: No clubbing, cyanosis or edema. ASA: Class 3. DESCRIPTION OF PROCEDURE: Af ter confirmation of an informed consent, the patient's anesthesia plan was reviewed in detail. Propofol was chosen. Risks and benefits were reviewed and the patient agreed to proceed. At 12:37, the hayes ent was given 50 mg of propofol. Following a short time period, he required an additional 30 mg of propofol to reach appropriate sedation. In total, the patient received 80 mg of propofol. The patient s ubsequently achieved appropriate sedation and was given a 200 joules synchronized cardioversion by Dr. Maria at bedside. This was successful in achieving normal sinus rhythm. This was confirmed by EKG. The patient was monitored until 12:50, at which time he reached his baseline mental status and function. The patient tolerated the procedure well. COMPLICATIONS: None. ESTIMATED BLOOD LOSS: None. REC OMMENDATIONS: Okay to recover in the usual fashion. DO Karen Gurrola C: Referring Provider . T: RACHAEL JOB: [id number] 02/17/16 1243 <Electronically signed by Rodolfo Palacios DO> Date ____ Rodolfo Palacios DO Cosigner Signature (If Indicated): Date CC: Rodolfo Palacios D.O.; Jazz Rodas DO Da te Dictated: 02/16/161258 Date Transcribed: 02/16/161258 Metal Roofing Mechanic: Signed 17-Feb-2016 Operative Report Result: Comments: See Note; NOTES: [facility] Medical Records Department [address] [place] [address] Operative Report MR#: [id number] Acct: [id number] Name: LETHA DEUTSCH Rep #: [id number] : 1950 65 From: Babatunde Maria MD PCP: Jazz Rodas DO Status: [facility] DATE OF SERVICE: PROCEDURE: DC cardioversion. INDICATIONS: The patient is a 65-year-old gentleman with a history of permanent atrial fibrillation. The patient is undergoing DC cardioversion for symptomatic atrial fibrillation. DESCRIPTION OF PROCEDURE: After informed consent was obtained, the patient was seen by Dr. Palacios of the anesthesia division. An 80 mg of intravenous propofol was administered after AP pads were applied. 200 joules of synchronized DC biphasic energy were applied with prompt reversa l to sinus rhythm. The patient tolerated the procedure well. CONCLUSION: Successful direct current cardioversion. Thank you for allowing me to participate in his care. Babatunde Maria MD T: NTS JOB : [id number] 02/17/16 0833 <Electronically signed by Babatunde Maria MD> Date Babatunde Maria MD Cosigner Signature (If Indicated): Date __ CC: Babatunde Maria MD; Jazz Rodas DO Date Dictated: 02/16/161325 Date Transcribed: 02/16/161325 Metal Roofing Mechanic: Signed 01-Jan-2016 Operative Report Result: Comments: See Note; NOTES: [facility] Medical Records Department [address] [place] [address] Operative Report MR#: [id number] Acct: [id number] Name: LETHA DEUTSCH Rep #: [id number] : 1950 65 From: Babatunde Maria MD PCP: Jazz Rodas DO Status: REG [facility] DATE OF SERVICE: PROCEDURE: DC cardioversion. INDICATION: Atrial fibrillation. DESCRIPTION OF PROCEDURE: The patient underwent transesophageal echocardiogram today to evaluate for left atrial appendage thrombus. There was no left atrial appendage thrombus noted. The patient was consented for the cardiover haydee. The patient was seen by Dr. Alvarenga, the cardiovascular division and 80 mg of intravenous propofol was administered. The patient then underwent cardioversion with 200 joules of synchronized DC card ioversion energy with prompt reversal to sinus rhythm. PLAN: Plan would be to continue the patient on the current medication and outpatient followup. Babatunde Maria MD T: NTS JOB: [id number] 01/01/16 0813 <Electronically signed by Babatunde Maria MD> Date Babatunde Maria MD Cosigner Signature (If Indicated): Date CC: Babatunde Maria MD; Jazz Rodas DO Date Dictated: 12/29/15 1143 Date Transcribed: 12/29/15 1143 Metal Roofing Mechanic: Signed 31-Dec-2015 Consultation Result: Comments: See Note; NOTES: [facility] Medical Records Department [address] [place] [address] Consultation MR#: [id number] Acct: [id number] Name: LETHA DEUTSCH Rep #: [id number] : 1950 65 From: Zia Alvarenga MD PCP: Jazz Rodas DO Status: REG [facility] DATE OF SERVICE: 12/29/2015 BRIEF HISTORY OF PRESENT ILLNESS: The patient is a 65-year-old male, cu rrently under the care of Dr. Maria, who presents for elective KAYLEE and cardioversion secondary to atrial fibrillation. The patient does have a long history of atrial fibrillation and cardiac issues incl uding a triple bypass at [facility] in 1996, atrial ablation in 2011 at [facility] and multiple other surgical procedures. The patient had a KAYLEE just prior to my presentation and required 2 mg of Versed and 50 mcg of fentanyl to achieve appropriate sedation. The patient is now answering appropriately. The patient states that he was of his usual health prior to presentation. The patient does have a long sm oking history of 15 years, but has never been diagnosed with COPD or asthma. The patient does report sleep apnea and does use CPAP of 10 on a daily basis. The patient denies any recent fever, chills, na usea, vomiting, or diarrhea. The patient denies any previous problems with anesthesia. The patient states his last meal was over 12 hours ago. PHYSICAL EXAMINATION: VITAL SIGNS: Reviewed and acceptable . GENERAL: The patient is an obese male, in no apparent distress, speaking in full sentences. HEENT: Normocephalic and atraumatic. Mucous membranes are moist and pink. No scleral icterus or in jection noted. CHEST: S1 and S2, irregularly irregular. No murmurs, rubs or gallops. LUNGS: Chest is clear to auscultation bilaterally with no wheezes, rales or rhonchi. ABDOMEN: Soft, nontender, and no ndistended. Positive bowel sounds. EXTREMITIES: There is trace lower extremity edema, but no clubbing or cyanosis is noted. ASA class 3. DESCRIPTION OF PROCEDURE: After confirmation of informed consen t and review of the history, propofol was chosen as a sedative of choice. Risks and benefits were reviewed in detail and the patient agreed to proceed. At 11:30 a.m., the patient was given 40 mg of prop ofol. The patient required an additional 40 mg of propofol to reach appropriate sedation. In total, the patient received 80 mg of propofol. At that time, the patient achieved appropriate sedation and wa s given a 200 joule synchronized cardioversion by Dr. Maria. This was successful in achieving normal sinus rhythm. This was confirmed by EKG. The patient was monitored until 11:38, at which time he was back to his baseline functioning. The patient tolerated the procedure well. ESTIMATED BLOOD LOSS: 0. COMPLICATIONS: None. RECOMMENDATIONS: Okay to recover in the usual fashion. MD Karen AKHTAR C: Babatunde Maria MD Primary Care Physician T: RACHAEL JOB: [id number] 12/31/15 0622 <Electronically signed by Zia Alvarenga MD> Date Zia bond MD Cosigner Signature (If Indicated): Date CC: Zia Alvarenga MD; Babatunde Maria MD; Jazz Rodas DO Date Dictated: 12/29/151436 Date Transcri bed: 12/29/151436 Metal Roofing Mechanic: Signed 29-Dec-2015 Echo Transesophageal (KAYLEE) Result: Comments: See Note; NOTES: [facility] Cardiovascular Services [address] [place] [address] Echo Transesophageal (KAYLEE) 12/29/15 1045 MR#: [id number] Acct: [id number] Name: LETHA DARBY Rep #: [id number] : 1950 65 From: Babatunde Maria MD Attending Dr: Babatunde Maria MD Status: [facility] Ordering Dr: Babatunde Maria MD Date: 12/29/15 Location: [facility] Sex: M C Admitted: Lissette marian For Study: A. fib Medication KAYLEE probe passed without difficulty. Cetacaine Topical [place] given X3 orally. Versed 2 mg given slow IVP. Fentanyl 50 mcg given slow IVP. Performed a rapid injection of agitated mix of 9 cc saline and 1cc air to assess for atrial septal defect. Left Ventricle Normal LV size. The estimated ejection fraction is 50 %. No regional wall motion abnormalities noted. Rig ht Ventricle Normal RV size. Normal systolic function. The right ventricular wall motion is normal. Atria Bubble contrast study negative for right to left interatrial shunt. Intact atrial septum. The l eft atrium is moderately enlarged. No thrombus is detected in the left atrial appendage. Normal right atrium. Mitral Valve Normal mitral valve. Mild-Moderate (1-2+) eccentric mitral valve insufficiency. Tricuspid Valve Normal tricuspid valve. Mild tricuspid valve insufficiency. Aortic Valve Normal aortic valve. Trisinus/trileaflet aortic valve. Pulmonic Valve Normal pulmonic valve. Vessels Normal aortic root. Normal arch. The pulmonary artery is normal size. Normal pulmonary veins. Pericardium No pericardial effusion. Interpretation Summary Normal LV size. The estimated ejection fraction is 50 %. No thrombus is detected in the left atrial appendage. Mild-Moderate (1-2+) eccentric mitral valve insufficiency. __ Ordering Physician: Babatunde Maria Referring Physician: Jazz Rodas M.D. Performed By: Sonal Santa RDCS 12/29/15 1237 Date Babatunde Maria MD CC: Babatunde Maria MD; Jazz Rodas DO Date Dictated: 12/29/15 1045 Date Transcribed: 12/29/15 1237 Metal Roofing Mechanic: Signed 20-Nov-2015 OT D/C Summary Result: Comments: See Note; NOTES: [facility] Occupational [facility] [address] [place] [address] Fax [facility] SUMMARY MR#: [id number] Acct: [id number] Name: LETHA DEUTSCH Rep #: [id number] : 1950 65 From: Linda Blunt Referring Dr.: Jorge Luis Kerr MD Status: REG RCR Eval Date: Discharge Da te: HP - OT D/C Summary It has been my pleasure to treat LETHA DEUTSCH under orders from Jorge Luis Kerr MD, for the diagnosis of Lesion of Ulnar Nerve, L Upper Limb for a total of 6 visit(s). Please see the following information for a summary of their discharge status. - Objective Objective/Function: Wrapper Sizer: R: 95# L: 80#. Lat Pinch: R:26# L:10#. Tripod Pinch: R:18# L:8#. Gram Abduction: R:3 75 L: 200. Adduction: R: 800 L: 600. Monofilaments: L Th:3.84. L IF: 3.22. L MF:3.22. L RF:3.22/4.08. L LF:4.08 - Goals Patient Goals: Regain Strength, Improve Fine Motor Skills, Use Hand/Wrist/Arm Nor denny Again, Decrease Tingling/Numbness, Increase ROM Goal:: Pt. will demo increased strength in L hand to that of 75% of the R hand in order to perform daily tasks such as manipulating fasteners such a s buttons and zippers on clothing, performing yardwork such as mowing, and resuming lesiure activities such as playing guitar ( pressing cords) by d/c. Goal:: Pt. will demo increased ROM in L hand and f ingers (espcially spreading fingers) to that of the R hand and fingers in order to perform daily tasks such as playing guitar, holding large items (bowls), and keyboarding by d/c. Goal:: Pt. will demo a nd report increased sensation through improvement of scores in semmes wendy monfilaments test in L LF and RF in order to perform daily tasks such as managing change, playing guitar, and twisting ite ms to open (jars and doors) by d/c. Goal:: DASH Score improved slightly from sum of 62 and disability score of 26.6650 () on 11/02 to a sum of 59 and disability score of 24.1650 () on 11/20/15. - Plan Plan: D/C pt. this session. - D/C Information Discharge Comments: Pt. reports that therapy is helping in a sense, but feels time is going to be the izquierdo to regaining sensation and strength. Wrapper Sizer: R: 95# L: 80#. Lat Pinch: R:26# L:10#. Tripod Pinch: R:18# L:8#. Gram Abduction: R:375; L: 200. Adduction: R: 800; L:600. Monofilaments: L Th:3.84. L IF:3.22. L MF:3.22. L RF:3.22/4.08. L LF:4.08. In mariano nd manipulation (palm to fingers and fingers to palm) appear normal. If there are questions or concerns regarding this patient's occupational therapy, please fell free to call me at [phone]. Thank you for the referral of this patient. Sincerely, Linda Blunt <Electronically signed by Linda Blunt > 11/20/15 1518 CC: Jazz Rodas DO; Jorge Luis Kerr MD MG Signed 20-Nov-2015 OT General Evaluation Result: Comments: See Note; NOTES: [facility] [address] [place] [address]. [address] [place] [address] Fax REHABILITATION SERVICES IN ITIAL EVALUATION MR#: [id number] Acct: [id number] Name: LETHA DEUTSCH Rep #: [id number] : 1950 65 From: Linda Blunt Referring Dr.: Jorge Luis Kerr MD Status: REG RCR Insurance: MEDICARE PA RT A B Eval Date: [facility] [facility] Patient's Visit Information LETHA EDUTSCH is a 65 year old M, referred to Occupational Therapy by Jorge Luis Kerr MD,, with a diagnosis of Lesion of Ulnar Nerv e, L Upper Limb. Date of Evaluation: 11/03/15 Occupational Therapist: Linda Blunt - Visit Plan Frequency: 2x /Week Duration: 6 Weeks - Subjective Subjective: Pt. had surgery for L ulnar nerve trans position on August 12, 2015 at [place]. Pt. experienced sudden numbness and falling asleep" of L elbow and hand before the surgery. Pt. is retired and worked at [employer] for 34 years. 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 Pt. is R-handed - Objective Objective/Observation: Pt. was observed to have clawing of L LF w hen attempting a table top position of all finger on L hand. Pt. has limited abduction/adduction and opposition of thumb to LF in L hand. Pt. is experiencing numbness and limitations i n sensation on ulnar side of L hand. - ROM Opposition: 5 MP: L LF: hyperext +14 at rest ROM Comments: Pt. is able to make composite fist. Pt.'s ability abduct or adduct is limited, L LF claws during in trinsic movement. - Strength Elbow: B 5/5 Wrist: R:5/5; L: 4+/5 Wrapper Sizer: R:85# L:80# Lateral Pinch: R:22# L:12# Tripod Pinch: R:16# L:8# Strength Comments: Gram: Adduction: L:425, R:1000. Abduction L:200, R:700 - Sensation Thumb: L:3.22 Index: L:3.22 Middle: L:3.22 Ring: L:3.22/3.84 Little: L:4.17 Sensation Comments: Pt. reports numbness from finger to wrist on ulnar side of L hand. - In-Hand Manipula tion Finger to Palm Translation: Normal - Right, Mild - Left Palm to Finger Translation: Normal - Right, Severe - Left Rotation: Normal - Right, Normal - Left Comments: Pt. experiencing some difficultie s with manipulation tasks. - DASH-Disabilities of Arm, Shoulder AND Hand DASH Sum: 62 - Goals Goal:: Pt. will demo increased strength in L hand to that of 75% of the R hand in order to perform daily t asks such as manipulating fasteners such as buttons and zippers on clothing, performing yardwork such as mowing, and resuming lesiure activities such as playing guitar ( pressing cords) by d/c. Goal:: P t. will demo increased ROM in L hand and fingers (espcially spreading fingers) to that of the R hand and fingers in order to perform daily tasks such as playing guitar, holding large items (bowls), and keyboarding by d/c. Goal:: Pt. will demo and report increased sensation through improvement of scores in semmes wendy monfilaments test in L LF and RF in order to perform daily tasks such as managin g change, playing guitar, and twisting items to open (jars and doors) by d/c. - Rehabilitation General Assessment: Pt. was observed to have clawing of L LF when attempting a table top position of all finger on L hand. Pt. has limited abduction/adduction and opposition of thumb to LF in L hand. Pt. is experiencing numbness and limitations in sensation on ulnar side of L hand. Rehabil itation Potential: Excellent - Anticipated Interventions Anticipated Interventions: A/AAROM/PROM, Strengthening, Sensory Stimulation, Home Program Other Interventions: HEP: Intrinsic strengthening hand out. L hand table top place and holds. Yellow Putty exercises initiated once place and holds achieved. Pt. will focus on scissors with L LF and L finger abduction/adduction/spreads. Thank you for the opportunity to evaluate your patient. For Medicare and Medicare HMO plans, please review the plan of care and approve it. It will need to be FAXED BACK to us at [phone] for Med icare purposes. Please let me know if there are questions or concerns regarding this plan of care. Physician Signature: Date: <E lectronically signed by Linda Blunt > 11/20/15 1518 CC: Jazz Rodas DO; Jorge Luis Kerr MD MG Signed For Medicare only, by signing this I certify the plan of ca re. Physicians Signature Date 06-Nov-2015 CTA Head W/WO Contrast Result: Comments: See Note; NOTES: [facility] Imaging Services [address] [place] [address] Verdana 4d CTA Head W/WO Contrast MR#: [id number] Acct: [id number] Name: LETHA MASON Rep #: [id number] : 1950 M 65 From: Cecilio Castillo PCP: Jazz Rodas DO Status: REG CLI Study: CTA Head W/WO Contrast Date of Exam: 11/06/15 Exam# [id number] Ordering Dr: Linnea Johnson TRAFFIC AGENT-C STUDY: CTA OF THE BRAIN REASON FOR EXAM: Male, 65 years old. VERTIGO X MONTHS RADIATION DOSAGE (If Supplied By Facility): CTDIvol = ( 27.08 ) mGy, DLP = ( 1832.83 ) mGycm HALLEY HNIQUE: CT angiography was performed with a multi-detector CT scanner. Data acquisition was obtained from the skull base through the vertex following intravenous administration of ml of . MIP images w ere reconstructed from the axial data set. Post-processing of the angiographic images was performed, with multiplanar reformation and 3D reconstruction. Individualized dose optimization techniques w ere used for this CT. COMPARISON: None. FINDINGS: There is calcified plaque formation of the right cavernous carotid artery, with a mild stenosis (less than 50 %). There is calcified plaque formation of the left cavernous carotid artery, with a mild stenosis (less than 50%). Normal right A1 segments of the anterior cerebral artery. Normal left A1 segments of the anterior cerebral artery. Normal intact anterior communicating artery (ACOM). Normal bilateral A2 segments of the anterior cerebral arteries. Normal right M1 and M2 segments of the middle cer ebral arteries, with a normal M1 bifurcation. Normal left M1 and M2 segments of the middle cerebral arteries, with a normal M1 bifurcation. Normal right posterior communicating artery (PCOM). Small left posterior communicating artery (PCOM). There is a small atretic right vertebral artery with a dominant left vertebral artery. There is approximately 60% stenosis of the intradural left vertebr al artery. Normal basilar artery with a normal basilar bifurcation. The visualized bilateral superior cerebellar (SCA) arteries are normal. Normal bilateral P1, P2 and visualized P3 segments of the posterior cerebral arteries. There is no demonstrated aneurysm of the [place]. There is no demonstrated abnormality of the visualized brain. 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 Mi ld atherosclerotic plaque of the bilateral intracranial carotid arteries. Electronically Signed: Cecilio Castillo MD at 11:58 EDT Tel , Service support [phone], Fax CC: Linnea Hall; Jazz Rodas DO Metal Roofing Mechanic: Signed 06-Nov-2015 CTA Head W/WO Contrast Result: Comments: See Note; NOTES: [facility] Imaging Services [address] [place] [address] Verdana 4d CTA Head W/WO Contrast MR#: [id number] Acct: [id number] Name: RUBY LIEBERMANLETHA Hickey Rep #: [id number] : 1950 M 65 From: Cecilio Castillo PCP: Jazz Rodas DO Status: REG CLI Study: CTA Head W/WO Contrast Date of Exam: 11/06/15 Exam# [id number] Ordering Dr: Linnea Johnson STUDY: CTA OF THE BRAIN REASON FOR EXAM: Male, 65 years old. VERTIGO X MONTHS RADIATION DOSAGE (If Supplied By Facility): CTDIvol = ( 27.08 ) mGy, DLP = ( 1832.83 ) mGycm HALLEY HNIQUE: CT angiography was performed with a multi-detector CT scanner. Data acquisition was obtained from the skull base through the vertex following intravenous administration of ml of . MIP images w ere reconstructed from the axial data set. Post-processing of the angiographic images was performed, with multiplanar reformation and 3D reconstruction. Individualized dose optimization techniques w ere used for this CT. COMPARISON: None. FINDINGS: There is calcified plaque formation of the right cavernous carotid artery, with a mild stenosis (less than 50 %). There is calcified plaque formation of the left cavernous carotid artery, with a mild stenosis (less than 50%). Normal right A1 segments of the anterior cerebral artery. Normal left A1 segments of the anterior cerebral artery. Normal intact anterior communicating artery (ACOM). Normal bilateral A2 segments of the anterior cerebral arteries. Normal right M1 and M2 segments of the middle cer ebral arteries, with a normal M1 bifurcation. Normal left M1 and M2 segments of the middle cerebral arteries, with a normal M1 bifurcation. Normal right posterior communicating artery (PCOM). Small left posterior communicating artery (PCOM). There is a small atretic right vertebral artery with a dominant left vertebral artery. There is approximately 60% stenosis of the intradural left vertebr al artery. Normal basilar artery with a normal basilar bifurcation. The visualized bilateral superior cerebellar (SCA) arteries are normal. Normal bilateral P1, P2 and visualized P3 segments of the posterior cerebral arteries. There is no demonstrated aneurysm of the [place]. There is no demonstrated abnormality of the visualized brain. CC: Linnea Hall; Jazz Rodas DO Metal Roofing Mechanic: Signed 06-Nov-2015 CTA Neck W/WO Contrast Result: Comments: See Note; NOTES: [facility] Imaging Services [address] [place] [address] Verdana 4d CTA Neck W/WO Contrast MR#: [id number] Acct: [id number] Name: LETHA MASON Rep #: [id number] : 1950 M 65 From: Cecilio Castillo PCP: Jazz Rodas DO Status: REG CLI Study: CTA Neck W/WO Contrast Date of Exam: 11/06/15 Exam# [id number] Ordering Dr: Linnea Johnson TRAFFIC AGENT-C STUDY: CTA NECK WITH CONTRAST REASON FOR EXAM: Male, 65 years old. VERTIGO x months RADIATION DOSAGE (If Supplied By Facility): CTDIvol = ( 27.08 ) mGy, DLP = ( 1832.83 ) mGycm TECHNIQUE: CT angiography with multi-detector data acquisition was performed from the aortic arch to the skull base following intravenous administration of 100 ml of Isovue 370 contrast. MIP images were reconstructed from the axial data set. Post-processing of the angiographic images was performed, with multiplanar reformation and 3D reconstruction. Individualized dose optimization techniques were used for this CT. COMPARISON: None. FINDINGS: AORTIC ARCH: There is atherosclerotic calcific plaque formation of the aortic arch and great vessels willard ing from the aortic arch, without a hemodynamically significant stenosis. There is a normal origin of the brachiocephalic, left common carotid, and left subclavian arteries. RIGHT CAROTID ARTERIES: Normal right common carotid artery (CCA). There is moderate atherosclerotic plaque formation with moderate narrowing of the carotid bulb. There is mild atherosclerotic plaque formation of the origi n of the right internal carotid artery with less than 50% cross sectional diameter stenosis. There is atherosclerotic tortuous elongation of the cervical portion of the right internal carotid artery. There is mild atherosclerotic plaque formation of the origin of the right external carotid artery with less than 50% cross sectional diameter stenosis. LEFT CAROTID ARTERIES: There is atheroscle rotic plaque formation of the common carotid artery, but without a hemodynamically significant stenosis. There is moderate atherosclerotic plaque formation with moderate narrowing of the carotid bulb . There is moderate atherosclerotic plaque formation of the origin of the left internal carotid artery with an estimated stenosis of 50-69% stenosis. Normal visualized cervical portion of the left i nternal carotid artery. Normal origin of the left external carotid artery (ECA). VERTEBRAL ARTERIES: There is enhancement within the bilateral vertebral arteries with a small right vertebral arter y, and a dominant left vertebral artery. CT/CTA Neck W/WO Contrast IMPRESSION: Less than 50% stenosis on the right. 50-60% stenosis on the left. Further evaluation with sonography can be obtained. Electronically Signed: Cecilio Castillo MD at 11:53 EDT Tel , Service support [phone], CC: Linnea Hall; Jazz Rodas DO Metal Roofing Mechanic: Signed 06-Nov-2015 CTA Neck W/WO Contrast Result: Comments: See Note; NOTES: [facility] Imaging Services [address] [place] [address] Verdana 4d CTA Neck W/WO Contrast MR#: [id number] Acct: [id number] Name: LETHA MASON Rep #: [id number] : 1950 M 65 From: Cecilio Castillo PCP: Jazz Rodas DO Status: REG CLI Study: CTA Neck W/WO Contrast Date of Exam: 11/06/15 Exam# [id number] Ordering Dr: Linnea Johnson TRAFFIC AGENT-C STUDY: CTA NECK WITH CONTRAST REASON FOR EXAM: Male, 65 years old. VERTIGO x months RADIATION DOSAGE (If Supplied By Facility): CTDIvol = ( 27.08 ) mGy, DLP = ( 1832.83 ) mGycm TECHNIQUE: CT angiography with multi-detector data acquisition was performed from the aortic arch to the skull base following intravenous administration of 100 ml of Isovue 370 contrast. MIP images were reconstructed from the axial data set. Post-processing of the angiographic images was performed, with multiplanar reformation and 3D reconstruction. Individualized dose optimization techniques were used for this CT. COMPARISON: None. FINDINGS: AORTIC ARCH: There is atherosclerotic calcific plaque formation of the aortic arch and great vessels willard ing from the aortic arch, without a hemodynamically significant stenosis. There is a normal origin of the brachiocephalic, left common carotid, and left subclavian arteries. RIGHT CAROTID ARTERIES: Normal right common carotid artery (CCA). There is moderate atherosclerotic plaque formation with moderate narrowing of the carotid bulb. There is mild atherosclerotic plaque formation of the origi n of the right internal carotid artery with less than 50% cross sectional diameter stenosis. There is atherosclerotic tortuous elongation of the cervical portion of the right internal carotid artery. There is mild atherosclerotic plaque formation of the origin of the right external carotid artery with less than 50% cross sectional diameter stenosis. LEFT CAROTID ARTERIES: There is atheroscle rotic plaque formation of the common carotid artery, but without a hemodynamically significant stenosis. There is moderate atherosclerotic plaque formation with moderate narrowing of the carotid bulb . There is moderate atherosclerotic plaque formation of the origin of the left internal carotid artery with an estimated stenosis of 50-69% stenosis. Normal visualized cervical portion of the left i nternal carotid artery. Normal origin of the left external carotid artery (ECA). VERTEBRAL ARTERIES: There is enhancement within the bilateral vertebral arteries with a small right vertebral arter y, and a dominant left vertebral artery. CC: Linnea Hall; Jazz Rodas DO Metal Roofing Mechanic: Signed 30-Sep-2015 Brain W/WO Contrast Result: Comments: See Note; NOTES: [facility] Imaging Services [address] [place] [address] Verdana 4d Brain W/WO Contrast MR#: [id number] Acct: [id number] Name: LETHA WHEELER Rep #: [id number] : 1950 64 From: Cierra Doss MD PCP: Jazz Rodas DO Status: REG CLI Study: Brain W/WO Contrast Date of Exam: 09/30/15 Exam# [id number] Ordering Dr: Prakash Mccarty MD STUDY: MRI BRAIN WITH AND WITHOUT CONTRAST (ATTENTION INTERNAL AUDITORY CANALS - I.A.C.'s) REASON FOR EXAM: Male, 64 years old. Dizziness, headaches and myalgias problems. No ear pain. TECHNIQUE: Standardized multiplanar fat and water weighted pulse sequences were obtained. 10 ml of Gadavist contrast material was administered intravenously for the contrast portion of the exa mination. COMPARISON: None. FINDINGS: Normal bilateral temporal bones. Normal bilateral internal auditory canals. There is no demonstrated intracanalicular or cisternal vestibular schwannoma (acoustic neuroma). There is no enhancement of the bilateral VIIth or VIIIth cranial nerves. Normal bilateral cochlea, vestibules and semicircular ca nals. There is mild cerebral atrophy with widening of the extra-axial spaces and ventricular dilatation. There are multiple white matter hyperintensities, distributed throughout the deep white matte r tracts of the cerebral hemispheres, consistent with moderate chronic white matter ischemic changes. There is no evidence for recent intracranial ischemia or other cause of cytotoxic edema on diff usion weighted imaging (DWI). Normal bilateral basal ganglia. Normal thalami. Normal flow voids within the major intracranial circulation suggesting patency by spin echo criteria. Normal venous enh ancement. There is no enhancing intra-axial or extra-axial abnormality. There is no extra-axial fluid accumulation. Normal sella turcica, pituitary gland, infundibular stalk, optic chiasm and hypo thalamus. Normal tectal plate and pineal gland. Normal midbrain, carlo and medulla. Normal cerebellum. There are large basal cisterns. No demonstrated orbital abnormality, within the constraints of a routine brain study. Normal visualized paranasal sinuses. Normal calvarium and skull base. Normal visualized soft tissue structures. There are multilevel degenerative changes of the upper cervical s pine. IMPRESSION: 1. Normal unenhanced and enhanced MRI of bilateral internal auditory canals (I.A.Cs). 2. Moderate involutional changes and moderate sequela of microvascular disease. 3. No MR evidence for acute infarct. Electronically Signed: Cierra Doss MD at 13:08 EDT , Service support [phone], CC: Isaac Mccarty MD; Jazz Rodas DO Metal Roofing Mechanic: Signed 28-Sep-2015 Carotid Duplex Ultrasound Result: Comments: See Note; NOTES: [facility] Cardiovascular Services [address] [place] [address] Carotid Duplex Ultrasound 09/25/15 1411 MR#: [id number] Acct: [id number] Name: LETHA DEUTSCH Rep #: [id number] : 1950 64 From: Rian Levi MD Attending Dr: Jazz Rodas DO Status: REG CLI Ordering Dr: Jazz Rodas DO Date: 09/25/15 Location: CT S ex: M C Admitted: Reason For Study: DIZZINESS Rt. Velocities/BP Lt. Velocities/BP Prox CCA 61.0/11.7 cm/sec. Prox CCA 58.9/13.0 cm/sec. Mid CCA 58.6/14.1 cm/sec. Mid CCA 76.8/13.5 cm/sec. D ist CCA 52.8/13.5 cm/sec. Dist CCA 76.2/14.1 cm/sec. Prox ICA 43.7/11.1 cm/sec. Prox ICA 75.0/20.5 cm/sec. Mid ICA 49.8/13.8 cm/sec. Mid ICA 63.9/17.6 cm/sec. Dist ICA 50.3/13.8 cm/sec. Dist ICA 64.3 /15.2 cm/sec. Rt. ICA/CCA = .86. Lt. ICA/CCA = .98. Prox ECA 102.0/14.1 cm/sec. Prox ECA 161.0/17.7 cm/sec. Rt. Vert. 42.0/9.4 cm/sec. Lt. Vert. 44.8/11.9 cm/sec. Right Extracranial There is heter ogeneous, irregular atherosclerotic plaque noted in the right common carotid artery. There is heterogeneous, irregular atherosclerotic plaque noted in the right internal carotid artery. There is hete rogeneous, irregular atherosclerotic plaque noted in the right external carotid artery. Antegrade flow is noted in the right vertebral artery. Left Extracranial There is heterogeneous, irregular ath erosclerotic plaque noted in the left common carotid artery. There is heterogeneous, irregular atherosclerotic plaque noted in the left internal carotid artery. The atherosclerotic plaque causes aco ustic shadowing. There is heterogeneous, irregular atherosclerotic plaque noted in the left external carotid artery. Antegrade flow is noted in the left vertebral artery. Procedure Carotid Duplex [id number]. Techncially difficult due to body habitus. Exam performed in department. Interpretation Summary Mild (<50%) stenosis right extracranial internal carotid. Mild (<50%) stenosis l eft extracranial internal carotid. Flow within the vertebral arteries is antegrade bilaterally. Ordering Physician: Jazz Rodas Performed By: Karon Harris RVT 09/28/152157 Date Rian Levi MD CC: Jazz Rodas DO Date Dictated: 09/25/15 1411 Date Transcribed: 09/28/152157 Metal Roofing Mechanic: Signed 25-Sep-2015 Brain/Head without Contrast Result: Comments: See Note; NOTES: [facility] Imaging Services [address] [place] [address] Verdana 4d Brain/Head without Contrast MR#: [id number] Acct: [id number] Name: LETHA DEUTSCH Rep #: [id number] : 1950 64 From: Juli Klein MD PCP: Jazz Rodas DO Status: REG CLI Study: Brain/Head without Contrast Date of Exam: 09/25/15 Exam# [id number] Ordering Dr: Jazz Rodas DO STUDY: CT BRAIN WITHOUT CONTRAST REASON FOR EXAM: Male, 64 years old. ACUTE INTRACTABLE HEADACHE, DIZZINESS, HX HTN-CONT. HEART DISEASE RADIATION DOSAGE (If Supplied By Facility): CTDIvol = ( 58.51 ) mGy, DLP = ( 1024.01 ) mGycm TECHNIQUE: Transaxial CT imaging of the brain was performed without administration of intravenous contrast material. Individualized dos e optimization techniques were used for this CT. COMPARISON: None. FINDINGS: Normal soft tissue structures. Normal calvarium. Normal size ventricles and extra -axial spaces for the patient's age. There are areas of decreased attenuation within the white matter tracts of the supratentorial brain, consistent with microvascular disease changes. Normal basal g anglia and thalami. Normal brainstem. Normal cerebellum. There is no intracranial hemorrhage. There are no findings of an acute ischemic infarction. Normal visualized paranasal sinuses. IMPRESSION: There are findings consistent with small vessel ischemic white matter disease. Electronically Signed: Juli Klein MD at 14:19 EDT Tel cf, Service support [phone], CC: Jazz Rodas DO Metal Roofing Mechanic: Signed 17-Sep-2015 Operative Report Result: Comments: See Note; NOTES: [facility] Medical Records Department [address] [place] [address] Operative Report MR#: [id number] Acct: [id number] Name: TYREL DEUTSCH Rep #: [id number] : 1950 64 From: Babatunde Maria MD PCP: Jazz Rodas DO Status: REG CLI DATE OF SERVICE: PROCEDURE: Direct current cardioversion. INDICATION: Atrial fibrillati on. The patient has a history of known atrial fibrillation, status post coronary artery bypass surgery. Estimated ejection fraction of 50% on factor Xa inhibitor. The present procedure is being undert aken to revert him to sinus rhythm. DESCRIPTION OF PROCEDURE: After informed consent was obtained, the patient was evaluated by Dr. Alvarenga of the anesthesia division. 160 mg of intravenous propofol was administered and 200 joules of DC cardioversion energy were applied via biphasic pads, which were applied in the anterior, posterior fashion. The patient reverted to sinus rhythm with frequent pre mature atrial complexes. The postoperative blood pressure was 117/60 with a pulse rate of 65 beats per minute and regular. Successful DC cardioversion to sinus rhythm with frequent ectopy. The patie nt will be administered 150 mg of intravenous amiodarone over 10-15 minutes. Outpatient followup in my office. Babatunde Maria MD T: NTS JOB: [id number] 09/17/15804 <Electronically sig catrina by Babatunde Maria MD> Date Babatunde Maria MD Cosigner Signature (If Indicated): Date CC: Babatunde Maria MD; Jazz Irvin LAURA Date Dictated: 09/16/15 1100 Date Transcribed: 09/16/15 1100 Metal Roofing Mechanic: Signed 17-Sep-2015 Operative Report Result: Comments: See Note; NOTES: [facility] Medical Records Department [address] [place] [address] Operative Report MR#: [id number] Acct: [id number] Name: [facility] Ruperto Rep #: [id number] : 1950 64 From: Zia Alvarenga MD PCP: Jazz Rodas DO Status: REG CLI DATE OF SERVICE: 09/16/2015 DATE OF SERVICE: September 16, 2015. BRIEF HISTORY OF PRESENT ILL NESS: The patient is a 64-year-old male, currently under the care of Dr. Maria, who presents for an elective cardioversion secondary to atrial fibrillation. The patient states he has been o f his usual health prior to presentation and denies any recent fever, chills, nausea, vomiting, diarrhea, rash, or chest pain. The patient has had some lower extremity edema at baseline and does repor t he has a history of obstructive sleep apnea is compliant with his CPAP machine. The patient states his last meal was at 9:00 p.m. last evening. The patient has never had previous cardioversions, but has multiple surgeries and has never had problems with anesthesia previously. PHYSICAL EXAMINATION: VITAL SIGNS: Reviewed and acceptable. GENERAL: The patient is an obese male in no appa rent distress, speaking in full sentences. HEENT: Normocephalic, atraumatic. Mucous membranes are moist, pink. Crowded posterior pharynx. Mouth opening approximately 4 cm. Slightly decreased neck mob ility secondary to neck adiposity. Mallampati 4. CHEST: S1, S2 irregularly irregular. No murmurs, rubs or gallops are appreciated. LUNGS: Clear to auscultation bilaterally with no wheezes, rales or r honchi. ABDOMEN: Obese, soft, nontender, nondistended. Positive bowel sounds. LOWER EXTREMITIES: 1+ lower extremity edema without rash. No clubbing or cyanosis is appreciated. ASA class 3. PROCED URE: After confirmation of informed consent and review of data, propofol was chosen as a sedative of choice. Risks and benefits were reviewed with the patient and he agreed with the anesthesia plan. At 1025, the patient was given 40 mg of propofol. The patient ended up receiving a total of 160 mg of propofol over the course of the sedation in 20-30 mg aliquots. When the patient finally reached ap propriate sedation, a onetime 200 joule synchronized cardioversion was delivered by Dr. Maria. This was successful in achieving sinus rhythm with frequent PACs. This was confirmed by EKG. Per Dr. Samuel dodson, the patient will likely be started on amiodarone. The patient tolerated the procedure well and was monitored until 1031, at which time the patient was able to reach the appropriate level of arousa l and follow commands. ESTIMATED BLOOD LOSS: 0. COMPLICATIONS: None. RECOMMENDATIONS: Okay to recover in the usual fashion. ZIA ALVARENGA MD C C: Babatunde Maria MD Primary Care Physicia n . T: [facility] JOB: [id number] 09/17/15 0608 <Electronically signed by Zia Alvarenga MD> Date Zia Alvarenga MD Cosigner Signature (If I ndicated): Date CC: Zia Alvarenga MD; Jazz Rodas DO Date Dictated: 09/16/155 Date Transcribed: 09/16/151114 Metal Roofing Mechanic: Signed 09-Sep-2015 Chest PA and Lateral Result: Comments: See Note; NOTES: [facility] Imaging Services [address] [place] [address] [place] Chest PA and Lateral MR#: [id number] Acct: [id number] Name: LETHA CHAUDHARI Rep #: [id number] : 1950 M 64 From: Osvaldo Manuel MD PCP: Jazz Rodas DO Status: REG CLI Study: Chest PA and Lateral Date of Exam: 09/09/15 Exam# [id number] Ordering Dr: Hyun Iglesias STUDY: X-RAY CHEST REASON FOR EXAM: Male, 64 years old. History of atrial flutter ablation. TECHNIQUE: PA and lateral views of the chest. COMPARISON: Comparison is mad e with prior study dated July 01, 2011. FINDINGS: Hyperinflation. Scattered calcified granulomas. There is no demonstrated pleural abnormality. Sternal cercl age wires and vascular clips are present from a prior sternotomy and coronary artery bypass graft procedure (CABG). Normal mediastinum and laxmi. Normal visualized pulmonary arteries. There is atheros clerotic calcification of the aortic arch with tortuosity. There are diffuse degenerative changes of the visualized thoracic spine. The patient is status post right reverse shoulder replacement. Th ere is no demonstrated abnormality of the visualized soft tissue structures of the upper abdomen. IMPRESSION: Hyperinflation. No acute abnormality is seen. Tami ctronically Signed: Osvaldo Manuel MD at 10:04 EDT Tel [phone], Service support [phone], RAD/Chest PA and Lateral IMPRESSION: Hyperin flation. No acute abnormality is seen. Electronically Signed: Osvaldo Manuel MD at 10:04 EDT Tel [phone], Service support [phone], CC: Jazz Iglesias Metal Roofing Mechanic: Signed 07-Aug-2015 ELECTROCARDIOGRAM, COMPLETE (ECG) ([id number]) Comments: afib controlled rate 97 - Result: [MEASUREMENTS ANALYSIS] Date of Test: 08/07/2015 08:26:34; Heart Rate: 97; [place] Interval: 0; QRS: 104; QT Interval: 344; Corrected QT Interval (QTc): 408; P Wave Crystal: 1; QRS Wave Crystal: -31; T Wave Crystal: 1; Blood Pressure: 138/78 [ECG DIAGNOSTIC STATEMENTS] Date of Test: 08/07/2015 08:26:34; Summary: Atrial flutter-fibrillation - Nonspecific T-abnormality. ABNORMAL 30-Jul-2015 ELECTROCARDIOGRAM, COMPLETE (ECG) ([id number]) Comments: afib rate 109 Result: [MEASUREMENTS ANALYSIS] Date of Test: 07/30/2015 17:00:28; Heart Rate: 109; [place] Interval: 0; QRS: 108; QT Interval: 338; Corrected QT Interval (QTc): 423; P Wave Crystal: 1; QRS Wave Crystal: -30; T Wave Crystal: 42; Blood Pressure: 122/78 [ECG DIAGNOSTIC STATEMENTS] Date of Test: 07/30/2015 17:00:28; Summary: Atrial fibrillation -Nonspecific QRS widening. -Nonspecific ST depression -Nondiagnostic. ABNORMAL 24-Jul-2015 NCS and/or EMG Patient Result: Comments: See Note; NOTES: [facility] Pulmonary Services/Neurology [address] [place] [address] NCS and/or EMG Patient MR#: [id number] Acct: [id number] Name: LETHA ZUNIGA Rep #: [id number] : 1950 64 From: Mary Doan Referring Dr: Jorge Luis Kerr MD Status: REG CLI Ordering Dr: Jorge Luis Kerr MD Date: 07/23/15 Location: [facility] Sex: M C DATE OF SERVICE: 07/23/2015 REFERRING PHYSICIAN: Dr. Jorge Luis Kerr. HISTORY OF PRESENT ILLNESS: The patient is a 64-year-old gentleman with numbness, tingling and weakness in his left hand and little fi nger. ELECTRODIAGNOSTIC FINDINGS: Significant decreased left ulnar sensory and motor amplitude but not significant slowing at the wrist. Significant ulnar motor conduction velocity slowing across th e elbow and in the forearm and slowed left ulnar F waves. Normal median and radial nerve studies. The EMG reveals membrane irritability and severe neurogenic motor unit changes in the left hand FDI and ADQ muscles. No other left arm abnormalities were noted. IMPRESSION: Severe left cubital tunnel syndrome. This correlates well with his clinical symptoms. No other nerve entrapments are noted. C onsider left ulnar nerve compression, tendinitis, or other abnormalities in the left cubital tunnel causing today' s findings. There is no evidence of carpal tunnel syndrome, cervical root compromise, or a brachial plexus lesion today. He will follow up with Dr. Kerr for further review. Thank you for this referral. Mary Doan MD T: NTS JOB: [id number] 07/24/152201 <Elect ronically signed by Mary Doan > Date Mary Doan CC: Jazz Rodas DO; MARY DOAN; Jorge Luis Kerr MD Date Dictated: 937 Date Transcribed: 07/23/15937 Metal Roofing Mechanic: Signed 09-Jul-2015 Echocardiogram Complete Result: Comments: See Note; NOTES: [facility] Cardiovascular Services [address] [place] [address] Echo Complete 07/09/15 0858 MR#: [id number] Acct: [id number] Name: LETHA DARBY Rep #: [id number] : 1950 64 From: Babatunde Maria MD Attending Dr: Babatunde Maria MD Status: REG CLI Ordering Dr: Babatunde Maria MD Date: 07/09/15 Location: [facility] Sex: M C Admitted: Reason For Study: CAD Procedure This was a 2D Doppler, Color Flow transthoracic echocardiogram. Exam performed in department. Left Ventricle Normal LV size. The estimated ejection fraction is 50 %. Left ventricular systolic function is lower limits of normal. No regional wall motion abnormalities noted. Right Ventricle Normal RV size. Normal systolic function. Atria The left atrium is mildly enlarged. Normal right atrium. Mitral Valve Normal mitral valve. Mild- Moderate (1-2+) eccentric mitral valve insufficiency. Tricuspid Valve Normal tricuspid valve. Mild (1+) tricuspid valve insufficiency. Pulmonary artery systolic pressure is 26 mmHg. Aortic Valve Trisinus/trileaflet aortic valve. Mild focal aortic valve calcification. Pulmonic Valve Normal pulmonic valve. Mild (1 +) pulmonic valve insufficiency. Great Vessels Normal aortic root. The pulmonary artery is normal size. Normal inferior vena cava. Pericardium/Pleural No pericardial effusion. MMode/2D Measureme nts AND Calculations LVIDd: 4.3 cm IVSd: 0.98 cm Ao root diam: 3.2 cm LVIDs: 3.5 cm LVPWd: 1.1 cm LA dimension: 5.1 cm RVDd: 3.5 cm FS: 18.8 % LAV(MOD-bp): 73.7 ml LA A4 area: 23.3 cm2 RA A4 area: 15.7 cm2 LAV(MOD-bp) Indexed: 36.0 ml/m2 LAV(MOD-sp2): 71.7 ml LAV(MOD-sp4): 69.2 ml Doppler Measurements AND Calcu lations MV E max angie: 103.1 cm/sec Ao V2 max: 100.6 cm/sec LV V1 max: 79.4 cm/sec Ao max P.1 mmHg LV V1 max P.5 mmHg Ao max PG (full): 1.5 mmHg PA V2 max: 69.1 cm/sec TR max angie: 232.2 cm/sec TR max P.6 mmHg Interpretation Summary Normal LV size. The estimated ejection fraction is 50 %. Left v entricular systolic function is lower limits of normal. The left atrium is mildly enlarged. Mild (1+) tricuspid valve insufficiency. Ordering Physician: Babatunde Maria Referring Physician: Jazz Rodas M.D. Performed By: Sonal Santa DANIELLE 07/09/15 1258 Date Babatunde Maria MD CC: Jazz Rodas DO Date Dictated: 07/09/15 0858 Date Transcribed: 07/09/158 Metal Roofing Mechanic: Signed 09-Jul-2015 Nuclear Stress Test - Chemical Result: Comments: See Note; NOTES: [facility] Imaging Services [address] [place] [address] [place] Nuclear Stress Test - Chemical MR#: [id number] Acct: [id number] N alexsander: LETHA DEUTSCH Rep #: [id number] : 1950 64 From: Babatunde Maria MD Primary Care: Jazz Rodas DO Status: REG CLI Ordering Dr: Babatunde Maria MD Sex: M C DATE OF SERVICE: A 64-yea r-old man with a history of chest pain and atrial fibrillation. MEDICATIONS: Fish oil, atenolol, Prinivil, atorvastatin. Resting EKG demonstrates atrial fibrillation with a rate of 120 beats per mi nute. Normal intervals are noted. 0.4 mg of regadenoson was infused per usual protocol followed by rapid intravenous saline flush injection. Continuous EKG monitoring was performed. The maximum hear t rate attained was 130 beats per minute, which was 84% of maximum predicted heart rate. Maximum workload attained was 1 MET. At rest, there were no ST or T-wave changes noted to suggest abnormal geo w reserve. At peak infusion, no ST or T-wave changes were noted to suggest abnormal flow reserve. The resting blood pressure was 148/92 with a final blood pressure of 154/90. No clinical angina was no alcon. MYOCARDIAL PERFUSION PROTOCOL: 12.0 mCi of sestamibi was injected at rest. 0.4 mg of regadenoson was infused per usual protocol. At peak infusion 33.5 mCi of sestamibi was injected. Stress imag es were obtained. Stress and rest images were reconstructed and compared in the short axis, vertical long and horizontal long axes. Gated images were also obtained. PERFUSION SPECT ANALYSIS: Review of the images demonstrated normal uptake of tracer noted in all areas of the myocardium. The resting images similarly demonstrated normal uptake of tracer noted in all areas of the myocardium. No are as of reversibility are noted to suggest ischemia. GATED SPECT ANALYSIS: The gated ejection fraction is noted to be 59%. CONCLUSION: 1. Pharmacologic myocardial perfusion stress test with no evide nce of ischemia. 2. Preserved ejection fraction. Babatunde Maria MD T: NTS JOB: [id number] 07/10/15 1139 <Electronically signed by Babatunde Maria MD> Date Babatunde Maria MD CC: Jazz Rodas DO Date Dictated: 07/09/15 1110 Date Transcribed: 07/09/15 1110 Metal Roofing Mechanic: Signed 02-May-2015 Lumbar Spine 2 or 3 Views Result: Comments: See Note; NOTES: [facility] Imaging Services [address] [place] [address] [place] 4[place] Lumbar Spine 2 or 3 Views MR#: [id number] Acct: [id number] Name: LETHA ARTHUR Rep #: [id number] : 1950 64 From: Osvaldo Manuel MD PCP: Jazz Rodas DO Status: REG CLI Study: Lumbar Spine 2 or 3 Views Date of Exam: 05/02/15 Exam# [id number] [place] Dr: Sherif Christensen MD STUDY: X-RAY - LUMBAR SPINE REASON FOR EXAM: Male, 64 years old. Spondylolisthesis of L5 on S1. TECHNIQUE: AP and lateral flexion and extension view(s) of the lumbar spine were obtained. COMPARISON: None FINDINGS: Normal lumbar lordosis. There is a dextroscoliosis of the lumbar spine. There is a grade 1 anterior listhesis of L5 on S1 without spondylolysis. No significant translation is seen on the flexion and extension maneuver. There is multilevel endplate spondylosis of the lumbar vertebrae. There is multi-level d egenerative disc disease with multi-level disc space narrowing. Facet joint osteoarthritis. There is atherosclerotic calcification of the abdominal aorta without a demonstrated aneurysm. IMPRESSION: Grade 1 anterolisthesis of L5 on S1 with no significant translation on the flexion and extension maneuvers. Multilevel spondylosis and disc space narrowing. Electronically Signed: Osvaldo Manuel MD at 15:13 EST Tel [phone], Service support [phone], 0056 RAD/Lumbar Spine 2 or 3 Views IMPRESSION: Grade 1 anterolisthesis of L5 on S1 with no significant translation on the flexion and extension maneuvers. Multilevel spondylosis and disc space narrowing. Electronically Signed: Osvaldo olivo MD at 15:13 EST Tel [phone], Service support [phone], CC: Sherif Christensen MD; Jazz Rodas DO Metal Roofing Mechanic: Signed 02-May-2015 Spine Lumbar without Contrast Result: Comments: See Note; NOTES: [facility] Imaging Services [address] [place] [address] [place] 4[place] Spine Lumbar without Contrast MR#: [id number] Acct: [id number] Wisam e: LETHA DEUTSCH Rep #: [id number] : 1950 M 64 From: Scott Kelly MD PCP: Jazz Rodas DO Status: REG CLI Study: Spine Lumbar without Contrast Date of Exam: 05/02/15 Exam# [id number] Ordering Dr: Sherif Christensen MD STUDY: CT LUMBAR SPINE WITHOUT CONTRAST REASON FOR EXAM: Male, 64 years old. Lower back pain for 10 years. Gets pain injections every 6 months. RADIATION DOSAGE: CTDIvol = ( 30.00 ) mGy, DLP = ( 997.13 ) mGycm TECHNIQUE: The patient was scanned in a multi detector CT scanner. High resolution transaxial imaging was performed. Sagittal and coronal images were reconstructed. COMPARISON: MRI of lumbar spine dated June 13, 2014. FINDINGS: Preserved lumbar lordosis. There is no substantial scoliosis. Normal heights of the vertebrae of the lumbar spine noted. There is no demonstrated fracture or osseous destructive lesion. Apparent prior aortobiiliac graft placement. There are generalized atherosclerotic calcific ations. Sigmoid diverticulosis. Otherwise unremarkable visualized paraspinous soft tissue structures. There is a transitional vertebral body in the lumbosacral junction with a partially formed disc , which for the purpose of this dictation is considered to be L5-S1 (i.e. bilateral sacralization of S1). If this patient becomes a surgical candidate at any time in the future, direct correlation wi th plain films/MR images is recommended to determine the exact level of intervention. Multilevel degenerative disc/facet joint disease noted with moderate to severe canal stenoses from L1-L2 to L4-L 5. The findings are most prominent at L4-5 associated with the grade 1 anterolisthesis. IMPRESSION: 1. Transitional anatomy in the lumbosacral junction noted as de scribed, as there are only 4 lumbar type vertebral bodies and the L5 is bilaterally sacralized. 2. No acute skeletal abnormalities are seen. Degenerative/chronic changes noted at all lumbar levels, most prominent at L4-L5 associated with grade 1 anterolisthesis. Consider followup MRI, if clinically indicated. Electronically Signed: Scott Kelly MD at 8:31 EST Tel [phone], Ser vice support [phone], CC: Sherif Christensen MD; Jazz Rodas DO Metal Roofing Mechanic: Signed 28-Jan-2015 History and Physical Exam Result: Comments: See Note; NOTES: [facility] Medical Records Department [address] [place] [address] History and Physical 01/24/155 MR#: [id number] Acct: [id number] Name: LETHA DEUTSCH Rep #: [id number] : 1950 64 From: Joe Sinha PA-C PCP: Jazz Rodas DO Status: PRE IN Location: [facility] DATE OF SERVICE: PRIMARY CARE PHYSICIAN: Dr. Natalie Rodas. PROCEDURE TYPE: Reverse total shoulder replacement, right shoulder. PROCEDURE DATE: February 04, 2015. ATTENDING PHYSICIAN: Dr. Jorge Luis Kerr. HISTORY OF PRESENT ILLNESS: This is a 64-year-old male who first presented to [facility] on December 03, 2014. The patient states in September of 2014 while remodeling at his house, the patient was standin g on an 8-foot ladder. The patient states the garage door was turned on, he grabbed the truss with his right upper extremity. The patient states this pulled his right shoulder having immediate pain. T he patient has difficulty using his right shoulder above shoulder level. The patient has undergone formal physical therapy and corticosteroid injections as well as Meloxicam without any significant re lief in right shoulder symptoms. The patient has increased pain with overhead activities. The patient did undergo an MRI of the right shoulder, which shows a large supraspinatus tear, which is retrac alcon with fatty atrophy. There is superior migration of the humeral head. The patient does have significant cardiac history. The patient has undergone cardiac clearance by his knife blade polisher, Dr. Maria. The patient has a history of coronary artery disease with bypass surgery in 1996. The patient has also had heart ablation in 2010 as well as stents in his left and right iliac arteries. The patient un derwent a heart catheterization in 2011. The patient was given surgical clearance by his knife blade polisher. The patient denies any chest pain, shortness of breath, nausea, vomiting, fevers, or chills. Aft er failing conservative treatment measures and discussing all treatment options with Dr. Jorge Luis Kerr, the patient would like to proceed with a reverse total shoulder replacement of the right shoulde rNeri I did discuss and reviewed at length and in detail 10 review of systems. All pertinent positives and negatives are noted in the medical record. Please see attached [facility] medical history sheet. PAST MEDICAL PROBLEMS: 1. Coronary artery disease. 2. Hypertension. 3. Hypercholesterolemia. 4. Arthritis. PAST SURGICAL HISTORY: 1. Heart bypass in 1996. 2. Heart ablation in 2010. 3. Heart catheterization in 2011. 4. Leg stents in 1995. 5. TURP in 2007. 6. Jaw realignment in 1989. ANESTHESIA COMPLICATIONS: None. ASSISTIVE DEVICES: The patient admits to glasses. Denies hearing aids or dentures. SOCIAL HISTORY: This is a 64-year-old male who is currently retired. Former cigarette user. Occasional alcohol use. Denies any illicit dr ug use. CURRENT MEDICATIONS: 1. Aspirin 81 mg daily. 2. Atorvastatin calcium 40 mg 1 by mouth every day. 3. Fish oil 1200 mg daily. 4. Lisinopril 20 mg 1 p.o. twice daily. 5. Meloxicam 7.5 mg 1 b y mouth every day. 6. Modafinil 200 mg 1 p.o. twice daily. 7. Multivitamin 1 p.o. daily. 8. Oxycodone/acetaminophen 5/325 mg 1-2 tablets by mouth every 6 hours as needed for pain. 9. Stool softener 100 mg 2 p.o. daily. 10. Vitamin B complex daily. 11. Vitamin D3 10,000 unit 1 p.o. daily. ALLERGIES: No known drug allergies. PHYSICAL EXAMINATION: VITAL SIGNS: Height 66 inches, weight 192 po unds, BMI 31.0, blood pressure 102/70, pulse 80, respirations 12, temperature 96.6. GENERAL: The patient is alert and oriented x3 in no acute distress, breathing easily without respiratory distress. HEENT: Head: Normocephalic, atraumatic. Eyes: Pupils are equal, round, reactive to light and accommodation. Extraocular movements are intact. Sclerae are anicteric. Conjunctivae without injection. Ea rs: Auditory acuity grossly intact bilaterally. Nose: Bilateral patent nares without tenderness or drainage. Throat: Pharynx is clear without erythema or exudate. Tongue and uvula are midline. Buccal mucosa is pink and moist. NECK: Supple without adenopathy, JVD, carotid bruit, masses or tenderness. CHEST: Symmetrical, nontender to palpation. HEART: Regular rate and rhythm without heaves, murmur s, rubs or gallops. LUNGS: Clear to auscultation bilaterally. ABDOMEN: Soft, nondistended, normoactive bowel sounds x4 without tenderness or drainage. NEUROLOGIC: Cranial nerves II through XII grossl y intact without any focal, sensory or motor deficits noted. EXTREMITIES AND MUSCULOSKELETAL: Examination of the right shoulder shows tenderness to palpation over the lateral posterior and lateral sh oulder with mild pain over the acromioclavicular joint. Abduction on the right 3+/5, external rotation on the right 3+/5, internal rotation on the right 5- /5, supraspinatus 3+/5 on the right. Range of motion of the right shoulder forward flexion to 160 degrees with pain. Right abduction is 160 degrees with painful arc. External rotation on the right is 35 degrees with pain. Internal rotation on t he right is to the hip. The patient has a positive drop arm exam, positive [place] and impingement sign, positive Neer impingement sign, empty can test is positive on the right. Sensation is intact to light touch. Neurovascularly intact. DIAGNOSTIC STUDIES: 1. X-rays were obtained at [facility] on December 03, 2014, of the right shoulder including 3 views AP, ___ _ and axillary view, show no acute fracture, dislocation, or other bony abnormalities, ____ lesion inferior aspect of the glenoid. 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 2. MRI o f the right shoulder was obtained at [facility] on ____ 2014, shows a full-thickness tear of the supraspinatus tendon with a retracted past level of the glenoid with 50 percent fatty atrophy of the supraspinatus muscle. There is also tendinopathy and partial tearing of the infraspinatus as well as superior migration of the humeral head. There is spurring and acromioclavicular joint osteoarthritis. IMPRESSION: 1. Right shoulder rotator cuff arthropathy. 2. 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 3. Coronary artery disease. 4. Hyp ertension. 5. Hypercholesterolemia. 6. Peripheral vascular disease. PLAN: Dr. Jorge Luis Kerr did discuss and reviewed with the patient all treatment options including surgical versus nonsurgical. A t this time, the patient would like to proceed with a reverse total shoulder replacement of the right shoulder. Potential risks, benefits and complications of this procedure were reviewed in detail in cluding but not limited to , infection, nerve and blood vessel damage, persistent pain, numbness, tingling, paresthesias, blood clot, pulmonary embolism and requirement for possible further surg ariel. The patient expressed full understanding, has no further questions for the doctor. The patient does agree to proceed with the above-stated procedure and signed the surgery consent form. The patie nt has undergone cardiac clearance from his knife blade polisher. Joe Sinha PA-C T: NTS JOB: [id number] 01/28/15715 <Electronically signed by Joe Sinha PA-C> Date : Time: Joe Sinha PA-C CC: Joe Sinha; Jazz Rodas DO Date Dictated: 01/24/152254 Date Transcribed: 01/24/152254 Tra nscriptionist: Signed ____ I have re-examined the patient. There are no clinical changes since date of exam. ____ See Progress Notes for Changes ____ Dictated on Admission Date: ___ Time: Signature: 13-Jun-2014 Spine Lumbar (Routine) Result: Comments: See Note; NOTES: [facility] Imaging Services [address] [place] [id number] MRI Report MR#: [id number] Acct: [id number] Name: LETHA DEUTSCH Rep #: [id number] : 1950 M 63 From: Jack Martínez MD PCP: Jazz Rodas DO Status: REG CLI Study: Spine Lumbar (Routine) Date of Exam: 06/13/14 Exam# [id number] Ordering Dr: Mihir Martínez MD STUDY: MR I LUMBAR SPINE WITHOUT CONTRAST REASON FOR EXAM: Male, 63 years old. Low back pain TECHNIQUE: Standardized fat and water weighted pulse sequences were obtained in the sagittal and axial planes. C OMPARISON: None FINDINGS: T12-L1: Normal endplates. Normal disc height, hydration and morphology. Normal bilateral facet joints. Normal central canal and bilate ral lateral recesses. Normal bilateral intervertebral neural foramina. Normal lumbar lordosis. There is no substantial scoliosis. Normal conus medullaris that terminates at the L1-2: Normal endpla zhang. Normal disc height, hydration and morphology. Normal bilateral facet joints. Normal central canal and bilateral lateral recesses. Normal bilateral intervertebral neural foramina. L2-3: Normal e ndplates. Normal disc height, desiccation and minimal annular bulge.. Minor facet arthropathy. Normal central canal and bilateral lateral recesses. Normal bilateral intervertebral neural foramina. L3-4: Mild endplate spurring. Normal disc height, desiccation and mild annular bulge. Mild bilateral facet arthropathy. Normal central canal. Mild bilateral recess encroachment. Normal bilateral inter vertebral neural foramina. L4-5: Mild endplate spurring. Narrowed disc space with desiccation of the disc and mild annular bulge with tiny right foraminal disc protrusion.. Bilateral facet arthropa thy and thickened ligamenta flava. Mildly narrowed central canal and moderate bilateral recess stenosis exaggerated by shortened pedicles. Mild left neural foraminal encroachment and more pronounced on the right L5-S1: Grade 1 spondylolisthesis . Mild endplate spurring Normal disc height, hydration desiccation and minor annular bulge.. Bilateral facet arthropathy and thickening of ligamenta fla va as well as apparent synovial cyst on the left. Mild narrowing of central canal and severe bilateral recess stenosis as well as neural foraminal encroachment exaggerated by shortened pedicles Nor mal visualized sacral ala. Normal visualized paraspinous soft tissue structures. 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 Larsen. SLEEP HISTORY: The patient is a 63-year-old gentleman with a calculated body mass index of 36.3 and an Henriette Sleepiness Scale score of 8/24. The patient has a known history of sleep disordered breathing as determined by overnight polysomnogram performed in 2001. At that time the patient had an overall apnea/hypopnea index of 13.6 with a supine index of 33.3. He has undergone CPAP titrations in 2001 as well as 2007. The last CPAP titration indicates the prescribed setting to be 9 cm of water, but the patient is indicating he is on 14 cm of water at home. 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 He is on Provigil for such disorder. The patient is undergoing this titration as he has had reported weight gain, and feels that the CPAP is not helping as much as it used to. This includes feeling tired in the morning, and waking up during the night. ADDITIONAL MEDICAL HISTORY: As reported by aren pruitt, includes hypertension, hyperlipidemia, A-fib, status post ablation, coronary artery disease status post CABG x3. MEDICATIONS REPORTED AT TIME OF STUDY: Include Atenolol, meloxicam, lisinopril, f shruti oil, Lipitor, aspirin, modafinil. MASK USED DURING STUDY: Nevarez and Paykel Pilairo nasal pillows. SCORING RULES: Respiratory events were acquired and scored in accordance with the Recommended Standards and Specifications as outlined in the AASM Manual for the Scoring of Sleep and Associated Events (most recent version). Please note that a reference to [facility] AHI in this report is consistent with the current Hypopnea definition according to Medicare Criteria and an AASM AHI reference is consistent with the current Hypopnea definition according to the AASM criteria. PROCEDURE: The stud y was attended continuously by a medication reconciliation technician. Monitored parameters included left and right EOG, frontal, central, and occipital EEG, mental and submental EMG, left and right anterior tibialis EMG , signal ECG waveform, snore, continuous airflow with PAP device flow signal, chest and abdominal plethysmography efforts, oxygen saturation with heart rate, and body positioning with video monitoring. SLEEP STUDY DATA: The overnight CPAP titration began at 1015:07 p.m. and ended at 0505:57 a.m. for a recording time of 410.8 minutes with a total sleep time of 351.0 minutes. Calculated sleep effic iency was 85.4%. Sleep latency was 2.1 minutes with a REM latency of 82 minutes. Sleep stage percentages were as follows: N1 6.1%, N2 63.1%, N3 0%, and REM 30.8% of total sleep. There were a total of 3 4 arousals throughout the recording resulting in an overall arousal index of 5.8. Note the majority of arousals were of spontaneous nature. CPAP STUDY DATA: The patient was titrated on CPAP settings of 12 and 10 cm of water with humidification. The patient's apnea/hypopnea index was normalized on both tested pressure settings. The patient's sleep overall appeared more consolidated with less kiko usals on a lower CPAP setting of 10 cm of water with humidification. On this setting, the patient was recorded in nonREM sleep for an hour an 3 minutes and REM sleep for an hour and 8 minutes. The ove rall apnea /hypopnea indices by both CMS and AASM guidelines were 0.5 with the patient having only 1 central respiratory event while on this pressure. Supine index was 0.5 with a REM index of 0.9. The arousal index was 3.7. Mean oxygen saturation was 94.9% with a minimum oxygen saturation of 92%. EKG DATA: Mean heart rate during sleep was 52 beats per minute with a range of 43 to 78 beats per m inute. Rare PVCs were noted. LIMB MOVEMENT DATA: There were a total of 196 periodic limb movements during this study resulting in a periodic limb movement index of 33.5. The periodic limb movement ar ousal index was 2.4. Note the periodic limb movement index is elevated. Clinical correlation is needed to determine if patient may have an underlying sleep movement disorder such as restless leg synd clark. DIAGNOSIS: Obstructive sleep apnea syndrome. (327.23) IMPRESSION: 1. At a CPAP setting of 10 cm of water with humidification, the patient's apnea /hypopnea and arousal indices were normalize d. Snoring was eliminated and oxygen saturations were maintained at or above 92%. 2. Frequent periodic limb movements as noted above. Clinical correlation is needed. 3. Abnormal sleep architecture l ikely secondary to first night effect, possible medication effect, limb movements, and titration. RECOMMENDATIONS: 1. Initiate CPAP at a setting of 10 cm of water with humidification. Recommend use o f CPAP mask as above. 2. Encouraged weight loss to optimal body mass index. 3. Recommend the patient be advised to avoid activities or medications that could exacerbate sleep disordered breathing. 4 . Clinical correlation need for limb movements as above. 5. Recommend the patient be advised not to drive or operate heavy machinery when sleepy. INTERPRETING PHYSICIAN: Gennaro Larsen Jr., MD CC: Gennaro Larsen MD [id number] 03/06/14 1206 <Electronically signed by Gennaro Larsen MD> MARIANO Date Gennaro Larsen MD Co-signature (if applicable) Date Signed 30-Jan-2014 Carotid Duplex Ultrasound Result: Comments: See Note; NOTES: [facility] Cardi[facility] [address] [place] [address] Carotid Duplex Ultrasound 01/30/14 0854 MR#: [id number] Acct: [id number] Wisam e: LETHA DEUTSCH Rep #: [id number] : 1950 63 From: Rian Levi MD Attending Dr: Rupinder Encarnacion DO Status: REG CLI Ordering Dr: Rupinder Encarnacion DO Date: 01/30/14 Location: [facility] Sex: M C Admitte d: Rt. Velocities/BP Lt. Velocities/BP Prox CCA 85.6/12.9 cm/sec. Prox CCA 100.0/ 16.4 cm/sec. Mid CCA 92.6/14.1 cm/sec. Mid CCA 103.0/ 18.2 cm/sec. Dist CCA 67.4/13.5 cm/sec. Dist CCA 110.0/ 18 .2 cm/sec. Prox ICA 90.9/21.7 cm/sec. Prox ICA 98.1/ 23.3 cm/sec. Mid ICA 74.5/18.2 cm/sec. Mid ICA 78.8/15.5 cm/sec. Dist ICA 80.9/24.0 cm/sec. Dist ICA 62.3/ 18.4 cm/sec. Rt. ICA/CCA = .98. Lt. IC A/CCA = .95. Prox ECA 134.0/16.4 cm/sec. Prox ECA 111.0/ 9.4 cm/sec. Rt. Vert. 61.6/13.5 cm/sec. Lt. Vert. 59.3/ 14.1 cm/sec. Right Extracranial There is heterogeneous, smooth atherosclerotic plaq ue noted in the right common carotid artery. There is heterogeneous, smooth atherosclerotic plaque noted in the right internal carotid artery. There is no significant atherosclerotic plaque noted in the right external carotid artery. Antegrade flow is noted in the right vertebral artery. Left Extracranial There is heterogeneous, smooth atherosclerotic plaque noted in the left common carotid a rtery. There is heterogeneous, irregular atherosclerotic plaque noted in the left internal carotid artery. There is heterogeneous, irregular atherosclerotic plaque noted in the left external carotid artery. Antegrade flow is noted in the left vertebral artery. Procedure Carotid Duplex [id number]. Exam performed in department. Interpretation Summary Mild (<50%) stenosis right extracranial internal carotid. Mild (<50%) stenosis left extracranial internal carotid. Flow within the vertebral arteries is antegrade bilaterally. 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 02/20/08-aw Family History Unknown Family Member Name Dates Details Father Comments: aty 52, Diabetes and [place] Status: Active Mother Comments: CAD, PVD Status: Active Social History Name Dates Details Alcohol Use Comments: Rare beer Status: Active Caffeine Use Status: Active Most Recent Primary Occupation Comments: retired 2013 Status: Active Tobacco Use: Former smoker. Comments: Remotely quit tobacco use- 11/24/10 Status: Active Smoking Status Name Dates Details Former smoker Vital Signs Date Test Result Details :51 Pulse 77 /min Comments: Pattern: Regular Respiration Rate 17 /min Comments: Pattern: Unlabored O2 SAT 95 % Comments: Room air BP Systolic 142 mm[Hg] Comments: Patient Position: Sitting; Cuff Location: Left Arm; Cuff Size: Large BP Diastolic 78 mm[Hg] Comments: Patient Position: Sitting; Cuff Location: Left Arm; Cuff Size: Large Weight 226.25 lb Height 65.25 in Body Mass Index Calculated 37.36 kg/m2 Body Surface Area Calculated 2.09 m2 :55 Temperature 97.3 f Comments: Method: Temporal Pulse 77 /min Comments: Pattern: Regular Respiration Rate 16 /min Comments: Pattern: Unlabored BP Systolic 146 mm[Hg] Comments: Patient Position: Sitting; Cuff Location: Left Arm; Cuff Size: Standard BP Diastolic 64 mm[Hg] Comments: Patient Position: Sitting; Cuff Location: Left Arm; Cuff Size: Standard Weight 247 lb Height 65.25 in Body Mass Index Calculated 40.79 kg/m2 Body Surface Area Calculated 2.17 m2 :59 Temperature 97.8 f Comments: Method: Temporal Pulse 73 /min Comments: Pattern: Regular Respiration Rate 18 /min Comments: Pattern: Unlabored O2 SAT 94 % Comments: Room air BP Systolic 132 mm[Hg] Comments: Patient Position: Sitting; Cuff Location: Left Arm; Cuff Size: Large BP Diastolic 68 mm[Hg] Comments: Patient Position: Sitting; Cuff Location: Left Arm; Cuff Size: Large Weight 242.125 lb Height 65.25 in Body Mass Index Calculated 39.98 kg/m2 Body Surface Area Calculated 2.15 m2 :09 Temperature 97.3 f Pulse 78 /min Comments: Pattern: Regular Respiration Rate 17 /min Comments: Pattern: Unlabored O2 SAT 98 % Comments: Room air BP Systolic 142 mm[Hg] Comments: Patient Position: Sitting; Cuff Location: Left Arm; Cuff Size: Standard BP Diastolic 78 mm[Hg] Comments: Patient Position: Sitting; Cuff Location: Left Arm; Cuff Size: Standard Weight 238 lb Height 65.25 in Body Mass Index Calculated 39.3 kg/m2 Body Surface Area Calculated 2.14 m2 :59 Comments: hearing [facility] and had a glaucoma test done Pulse 72 /min Comments: Pattern: Regular Respiration Rate 18 /min Comments: Pattern: Unlabored O2 SAT 95 % Comments: Room air BP Systolic 138 mm[Hg] Comments: Patient Position: Sitting; Cuff Location: Left Arm; Cuff Size: Large BP Diastolic 58 mm[Hg] Comments: Patient Position: Sitting; Cuff Location: Left Arm; Cuff Size: Large Weight 234.125 lb Height 65.25 in Body Mass Index Calculated 38.66 kg/m2 Body Surface Area Calculated 2.12 m2 :03 Temperature 97 f Comments: Method: Temporal Pulse 73 /min Comments: Pattern: Regular Respiration Rate 18 /min Comments: Pattern: Unlabored O2 SAT 95 % Comments: Room air BP Systolic 130 mm[Hg] Comments: Patient Position: Sitting; Cuff Location: Left Arm; Cuff Size: Large BP Diastolic 78 mm[Hg] Comments: Patient Position: Sitting; Cuff Location: Left Arm; Cuff Size: Large Weight 229.25 lb Height 65.25 in Body Mass Index Calculated 37.86 kg/m2 Body Surface Area Calculated 2.1 m2 :56 Pulse 76 /min Comments: Pattern: Regular Respiration Rate 16 /min Comments: Pattern: Unlabored O2 SAT 95 % Comments: Room air BP Systolic 126 mm[Hg] Comments: Patient Position: Sitting; Cuff Location: Left Arm; Cuff Size: Standard BP Diastolic 62 mm[Hg] Comments: Patient Position: Sitting; Cuff Location: Left Arm; Cuff Size: Standard Weight 227.25 lb Height 65.25 in Body Mass Index Calculated 37.53 kg/m2 Body Surface Area Calculated 2.09 m2 :55 Pulse 57 /min Comments: Pattern: Regular Respiration Rate 18 /min Comments: Pattern: Unlabored O2 SAT 96 % Comments: Room air BP Systolic 118 mm[Hg] Comments: Patient Position: Sitting; Cuff Location: Left Arm; Cuff Size: Large BP Diastolic 78 mm[Hg] Comments: Patient Position: Sitting; Cuff Location: Left Arm; Cuff Size: Large Weight 225.125 lb Height 65.25 in Body Mass Index Calculated 37.18 kg/m2 Body Surface Area Calculated 2.09 m2 :00 Pulse 70 /min Comments: Pattern: Regular Respiration Rate 18 /min Comments: Pattern: Unlabored O2 SAT 93 % Comments: Room air BP Systolic 142 mm[Hg] Comments: Patient Position: Sitting; Cuff Location: Left Arm; Cuff Size: Large BP Diastolic 80 mm[Hg] Comments: Patient Position: Sitting; Cuff Location: Left Arm; Cuff Size: Large Weight 220.375 lb Height 65.25 in Body Mass Index Calculated 36.39 kg/m2 Body Surface Area Calculated 2.07 m2 :23 Pulse 96 /min Comments: Pattern: Regular Respiration Rate 18 /min Comments: Pattern: Unlabored O2 SAT 93 % Comments: Room air BP Systolic 160 mm[Hg] Comments: Patient Position: Sitting; Cuff Location: Left Arm; Cuff Size: Large BP Diastolic 62 mm[Hg] Comments: Patient Position: Sitting; Cuff Location: Left Arm; Cuff Size: Large Weight 220.5 lb Height 65.25 in Body Mass Index Calculated 36.41 kg/m2 Body Surface Area Calculated 2.07 m2 :57 Temperature 98.5 f Comments: Method: Tympanic Pulse 48 /min Comments: Pattern: Regular Respiration Rate 18 /min Comments: Pattern: Unlabored O2 SAT 94 % Comments: Room air BP Systolic 100 mm[Hg] Comments: Patient Position: Sitting; Cuff Location: Left Arm; Cuff Size: Standard BP Diastolic 62 mm[Hg] Comments: Patient Position: Sitting; Cuff Location: Left Arm; Cuff Size: Standard Weight 231 lb Height 65.25 in Body Mass Index Calculated 38.15 kg/m2 Body Surface Area Calculated 2.11 m2 :26 Pulse 67 /min Comments: Pattern: Regular Respiration Rate 18 /min Comments: Pattern: Unlabored O2 SAT 98 % Comments: Room air BP Systolic 140 mm[Hg] Comments: Patient Position: Sitting; Cuff Location: Left Arm; Cuff Size: Standard BP Diastolic 62 mm[Hg] Comments: Patient Position: Sitting; Cuff Location: Left Arm; Cuff Size: Standard Weight 231 lb Height 65.25 in Body Mass Index Calculated 38.15 kg/m2 Body Surface Area Calculated 2.11 m2 :05 Pulse 100 /min Comments: Pattern: Regular Respiration Rate 16 /min Comments: Pattern: Unlabored O2 SAT 98 % Comments: Room air BP Systolic 128 mm[Hg] Comments: Patient Position: Sitting; Cuff Location: Left Arm; Cuff Size: Standard BP Diastolic 70 mm[Hg] Comments: Patient Position: Sitting; Cuff Location: Left Arm; Cuff Size: Standard Weight 234 lb Height 65.25 in Body Mass Index Calculated 38.64 kg/m2 Body Surface Area Calculated 2.12 m2 :29 Comments: [facility] and hada glaucoma test doneHearing wnl Pulse 91 /min Comments: Pattern: Regular Respiration Rate 18 /min Comments: Pattern: Unlabored O2 SAT 96 % Comments: Room air BP Systolic 158 mm[Hg] Comments: Patient Position: Sitting; Cuff Location: Left Arm; Cuff Size: Large BP Diastolic 82 mm[Hg] Comments: Patient Position: Sitting; Cuff Location: Left Arm; Cuff Size: Large Weight 226 lb Height 65.25 in Body Mass Index Calculated 37.32 kg/m2 Body Surface Area Calculated 2.09 m2 :06 Pulse 121 /min Comments: Pattern: Regular Respiration Rate 18 /min Comments: Pattern: Unlabored O2 SAT 96 % Comments: Room air BP Systolic 138 mm[Hg] Comments: Patient Position: Sitting; Cuff Location: Left Arm; Cuff Size: Large BP Diastolic 68 mm[Hg] Comments: Patient Position: Sitting; Cuff Location: Left Arm; Cuff Size: Large Weight 221.5 lb Height 65.25 in Body Mass Index Calculated 36.58 kg/m2 Body Surface Area Calculated 2.07 m2 :00 Pulse 93 /min Comments: Pattern: Regular Respiration Rate 18 /min Comments: Pattern: Unlabored O2 SAT 98 % Comments: Room air BP Systolic 138 mm[Hg] Comments: Patient Position: Sitting; Cuff Location: Left Arm; Cuff Size: Large BP Diastolic 78 mm[Hg] Comments: Patient Position: Sitting; Cuff Location: Left Arm; Cuff Size: Large Weight 226.125 lb Height 65.25 in Body Mass Index Calculated 37.34 kg/m2 Body Surface Area Calculated 2.09 m2 :43 Pulse 97 /min Comments: Pattern: Regular Respiration Rate 18 /min Comments: Pattern: Unlabored O2 SAT 97 % Comments: Room air BP Systolic 138 mm[Hg] Comments: Patient Position: Sitting; Cuff Location: Left Arm; Cuff Size: Large BP Diastolic 82 mm[Hg] Comments: Patient Position: Sitting; Cuff Location: Left Arm; Cuff Size: Large Weight 218.125 lb Height 65.25 in Body Mass Index Calculated 36.02 kg/m2 Body Surface Area Calculated 2.06 m2 :13 Temperature 97.4 f Comments: Method: Oral Pulse 86 /min Comments: Pattern: Regular Respiration Rate 18 /min Comments: Pattern: Unlabored O2 SAT 98 % Comments: Room air BP Systolic 160 mm[Hg] Comments: Patient Position: Sitting; Cuff Location: Left Arm; Cuff Size: Standard BP Diastolic 84 mm[Hg] Comments: Patient Position: Sitting; Cuff Location: Left Arm; Cuff Size: Standard Weight 211.125 lb Height 65.25 in Body Mass Index Calculated 34.86 kg/m2 Body Surface Area Calculated 2.03 m2 :45 Temperature 97.5 f Pulse 99 /min Comments: Pattern: Regular Respiration Rate 15 /min Comments: Pattern: Unlabored O2 SAT 99 % Comments: Room air BP Systolic 138 mm[Hg] Comments: Patient Position: Sitting; Cuff Location: Left Arm; Cuff Size: Large BP Diastolic 78 mm[Hg] Comments: Patient Position: Sitting; Cuff Location: Left Arm; Cuff Size: Large Weight 219.125 lb Height 65.25 in Body Mass Index Calculated 36.19 kg/m2 Body Surface Area Calculated 2.06 m2 :10 Pulse 109 /min Comments: Pattern: Regular Respiration Rate 18 /min Comments: Pattern: Unlabored O2 SAT 98 % Comments: Room air BP Systolic 158 mm[Hg] Comments: Patient Position: Sitting; Cuff Location: Left Arm; Cuff Size: Large BP Diastolic 82 mm[Hg] Comments: Patient Position: Sitting; Cuff Location: Left Arm; Cuff Size: Large Weight 214 lb Height 65.25 in Body Mass Index Calculated 35.34 kg/m2 Body Surface Area Calculated 2.04 m2 :11 Pulse 112 /min Comments: Pattern: Regular Respiration Rate 18 /min Comments: Pattern: Unlabored O2 SAT 97 % Comments: Room air BP Systolic 122 mm[Hg] Comments: Patient Position: Sitting; Cuff Location: Left Arm; Cuff Size: Large BP Diastolic 78 mm[Hg] Comments: Patient Position: Sitting; Cuff Location: Left Arm; Cuff Size: Large Weight 214 lb Height 65.25 in Body Mass Index Calculated 35.34 kg/m2 Body Surface Area Calculated 2.04 m2 :54 Pulse 52 /min Comments: Pattern: Regular Respiration Rate 20 /min Comments: Pattern: Unlabored O2 SAT 96 % Comments: Room air BP Systolic 128 mm[Hg] Comments: Patient Position: Sitting; Cuff Location: Left Arm; Cuff Size: Large BP Diastolic 80 mm[Hg] Comments: Patient Position: Sitting; Cuff Location: Left Arm; Cuff Size: Large Weight 189.375 lb Height 65.25 in Body Mass Index Calculated 31.27 kg/m2 Body Surface Area Calculated 1.94 m2 :10 Temperature 97.3 f Comments: Method: Temporal Pulse 72 /min Comments: Pattern: Regular Respiration Rate 16 /min Comments: Pattern: Unlabored O2 SAT 98 % Comments: Room air BP Systolic 130 mm[Hg] Comments: Patient Position: Sitting; Cuff Location: Left Arm; Cuff Size: Standard BP Diastolic 60 mm[Hg] Comments: Patient Position: Sitting; Cuff Location: Left Arm; Cuff Size: Standard Weight 181.4 lb Height 65.25 in Body Mass Index Calculated 29.96 kg/m2 Body Surface Area Calculated 1.9 m2 :02 Weight 214.2 lb Height 65.25 in Body Mass Index Calculated 35.37 kg/m2 Body Surface Area Calculated 2.04 m2 :12 Pulse 75 /min Comments: Pattern: Regular Respiration Rate 18 /min Comments: Pattern: Unlabored O2 SAT 97 % Comments: Room air BP Systolic 130 mm[Hg] Comments: Patient Position: Sitting; Cuff Location: Left Arm; Cuff Size: Large BP Diastolic 78 mm[Hg] Comments: Patient Position: Sitting; Cuff Location: Left Arm; Cuff Size: Large Weight 230.375 lb Height 65.25 in Body Mass Index Calculated 38.04 kg/m2 Body Surface Area Calculated 2.11 m2 :50 Comments: [email or web address] Pulse 74 /min Comments: Pattern: Regular Respiration Rate 18 /min Comments: Pattern: Unlabored O2 SAT 98 % Comments: Room air BP Systolic 148 mm[Hg] Comments: Patient Position: Sitting; Cuff Location: Left Arm; Cuff Size: Large BP Diastolic 80 mm[Hg] Comments: Patient Position: Sitting; Cuff Location: Left Arm; Cuff Size: Large Weight 234.4375 lb Height 65.25 in Body Mass Index Calculated 38.71 kg/m2 Body Surface Area Calculated 2.12 m2 :26 Temperature 98 f Pulse 56 /min Comments: Pattern: Regular Respiration Rate 18 /min Comments: Pattern: Unlabored BP Systolic 148 mm[Hg] Comments: Patient Position: Sitting; Cuff Location: Left Arm; Cuff Size: Large BP Diastolic 72 mm[Hg] Comments: Patient Position: Sitting; Cuff Location: Left Arm; Cuff Size: Large Weight 238 lb Height 65.25 in Body Mass Index Calculated 39.3 kg/m2 Body Surface Area Calculated 2.14 m2 :18 Temperature 98.8 f Comments: Method: Oral Pulse 88 /min Comments: Pattern: Regular Respiration Rate 18 /min O2 SAT 98 % Comments: Room air BP Systolic 138 mm[Hg] Comments: Patient Position: Sitting; Cuff Location: Left Arm; Cuff Size: Standard BP Diastolic 66 mm[Hg] Comments: Patient Position: Sitting; Cuff Location: Left Arm; Cuff Size: Standard Weight 229.125 lb Height 65 in Body Mass Index Calculated 38.13 kg/m2 Body Surface Area Calculated 2.1 m2 :22 Temperature 97.6 f Pulse 60 /min Comments: Pattern: Regular Respiration Rate 18 /min Comments: Pattern: Unlabored BP Systolic 118 mm[Hg] Comments: Patient Position: Sitting; Cuff Location: Left Arm; Cuff Size: Standard BP Diastolic 64 mm[Hg] Comments: Patient Position: Sitting; Cuff Location: Left Arm; Cuff Size: Standard Weight 229.125 lb Height 65 in Body Mass Index Calculated 38.13 kg/m2 Body Surface Area Calculated 2.1 m2 :47 Temperature 98.9 f Comments: Method: Oral Pulse 74 /min Comments: Pattern: Regular Respiration Rate 24 /min Comments: Pattern: Unlabored O2 SAT 97 % Comments: Room air BP Systolic 134 mm[Hg] Comments: Patient Position: Sitting; Cuff Location: Left Arm; Cuff Size: Standard BP Diastolic 84 mm[Hg] Comments: Patient Position: Sitting; Cuff Location: Left Arm; Cuff Size: Standard Weight 237 lb Height 65 in Body Mass Index Calculated 39.44 kg/m2 Body Surface Area Calculated 2.13 m2 :32 Temperature 97 f Pulse 60 /min Comments: Pattern: Regular Respiration Rate 16 /min Comments: Pattern: Unlabored BP Systolic 160 mm[Hg] Comments: Patient Position: Sitting; Cuff Location: Left Arm; Cuff Size: Large BP Diastolic 80 mm[Hg] Comments: Patient Position: Sitting; Cuff Location: Left Arm; Cuff Size: Large Weight 237 lb Height 65 in Body Mass Index Calculated 39.44 kg/m2 Body Surface Area Calculated 2.13 m2 :04 Temperature 95.7 f Pulse 72 /min Comments: Pattern: Regular Respiration Rate 16 /min Comments: Pattern: Unlabored BP Systolic 124 mm[Hg] Comments: Patient Position: Sitting; Cuff Location: Left Arm; Cuff Size: Large BP Diastolic 52 mm[Hg] Comments: Patient Position: Sitting; Cuff Location: Left Arm; Cuff Size: Large Weight 234 lb Height 65 in Body Mass Index Calculated 38.94 kg/m2 Body Surface Area Calculated 2.11 m2 :55 Temperature 97.7 f Comments: Method: Oral Pulse 68 /min Comments: Pattern: Regular Respiration Rate 20 /min Comments: Pattern: Unlabored BP Systolic 122 mm[Hg] Comments: Patient Position: Sitting; Cuff Location: Left Arm; Cuff Size: Large BP Diastolic 76 mm[Hg] Comments: Patient Position: Sitting; Cuff Location: Left Arm; Cuff Size: Large Weight 229 lb Height 65 in Body Mass Index Calculated 38.11 kg/m2 Body Surface Area Calculated 2.1 m2 :07 Temperature 98.5 f Pulse 88 /min Comments: Pattern: Regular Respiration Rate 18 /min Comments: Pattern: Unlabored BP Systolic 120 mm[Hg] Comments: Patient Position: Sitting; Cuff Location: Left Arm; Cuff Size: Standard BP Diastolic 62 mm[Hg] Comments: Patient Position: Sitting; Cuff Location: Left Arm; Cuff Size: Standard Weight 218 lb Height 65 in Body Mass Index Calculated 36.28 kg/m2 Body Surface Area Calculated 2.05 m2 :11 Temperature 97.7 f Pulse 76 /min Comments: Pattern: Regular Respiration Rate 16 /min Comments: Pattern: Unlabored BP Systolic 100 mm[Hg] Comments: Patient Position: Sitting; Cuff Location: Left Arm; Cuff Size: Large BP Diastolic 52 mm[Hg] Comments: Patient Position: Sitting; Cuff Location: Left Arm; Cuff Size: Large Weight 216 lb Height 65 in Body Mass Index Calculated 35.94 kg/m2 Body Surface Area Calculated 2.04 m2 :35 Temperature 97.9 f Comments: Method: Oral Pulse 60 /min Comments: Pattern: Regular Respiration Rate 16 /min Comments: Pattern: Unlabored BP Systolic 128 mm[Hg] Comments: Patient Position: Supine; Cuff Location: Left Arm; Cuff Size: Standard BP Diastolic 66 mm[Hg] Comments: Patient Position: Supine; Cuff Location: Left Arm; Cuff Size: Standard Weight 214.3125 lb Height 65 in Body Mass Index Calculated 35.66 kg/m2 Body Surface Area Calculated 2.04 m2 :51 Temperature 97.7 f Pulse 64 /min Comments: Pattern: Regular Respiration Rate 16 /min Comments: Pattern: Unlabored BP Systolic 130 mm[Hg] Comments: Patient Position: Sitting; Cuff Location: Left Arm; Cuff Size: Large BP Diastolic 62 mm[Hg] Comments: Patient Position: Sitting; Cuff Location: Left Arm; Cuff Size: Large Weight 220 lb Height 65.5 in Body Mass Index Calculated 36.05 kg/m2 Body Surface Area Calculated 2.07 m2 :32 Pulse 80 /min Comments: Pattern: Regular Respiration Rate 16 /min Comments: Pattern: Wheezing BP Systolic 114 mm[Hg] Comments: Patient Position: Sitting; Cuff Location: Left Arm; Cuff Size: Standard BP Diastolic 68 mm[Hg] Comments: Patient Position: Sitting; Cuff Location: Left Arm; Cuff Size: Standard Weight 210 lb :26 Temperature 97.7 f Pulse 68 /min Comments: Pattern: Regular Respiration Rate 18 /min Comments: Pattern: Unlabored BP Systolic 162 mm[Hg] Comments: Patient Position: Sitting; Cuff Location: Left Arm; Cuff Size: Large BP Diastolic 54 mm[Hg] Comments: Patient Position: Sitting; Cuff Location: Left Arm; Cuff Size: Large Weight 210 lb :09 Temperature 96.5 f Pulse 64 /min Comments: Pattern: Regular Respiration Rate 18 /min Comments: Pattern: Unlabored BP Systolic 130 mm[Hg] Comments: Patient Position: Sitting; Cuff Location: Left Arm; Cuff Size: Standard BP Diastolic 70 mm[Hg] Comments: Patient Position: Sitting; Cuff Location: Left Arm; Cuff Size: Standard Weight 206 lb :39 Temperature 97.6 f Comments: Method: Oral Pulse 64 /min Comments: Pattern: Regular Respiration Rate 18 /min Comments: Pattern: Unlabored Weight 203.1875 lb :25 Temperature 96.6 f Comments: Method: Oral Pulse 64 /min Comments: Pattern: Regular Respiration Rate 18 /min Comments: Pattern: Unlabored BP Systolic 122 mm[Hg] Comments: Patient Position: Sitting; Cuff Location: Left Arm; Cuff Size: Standard BP Diastolic 64 mm[Hg] Comments: Patient Position: Sitting; Cuff Location: Left Arm; Cuff Size: Standard Weight 203.1875 lb :09 Temperature 97 f Comments: Method: Oral Pulse 62 /min Comments: Pattern: Regular Respiration Rate 16 /min Comments: Pattern: Unlabored BP Systolic 142 mm[Hg] Comments: Patient Position: Sitting; Cuff Location: Left Arm; Cuff Size: Standard BP Diastolic 70 mm[Hg] Comments: Patient Position: Sitting; Cuff Location: Left Arm; Cuff Size: Standard Weight 201 lb :05 Temperature 97.4 f Comments: Method: Oral Pulse 68 /min Comments: Pattern: Regular Respiration Rate 16 /min Comments: Pattern: Unlabored BP Systolic 142 mm[Hg] Comments: Patient Position: Sitting; Cuff Location: Left Arm; Cuff Size: Standard BP Diastolic 82 mm[Hg] Comments: Patient Position: Sitting; Cuff Location: Left Arm; Cuff Size: Standard Weight 201 lb :44 Temperature 95.9 f Comments: Method: Oral Pulse 64 /min Comments: Pattern: Regular Respiration Rate 17 /min Comments: Pattern: Unlabored BP Systolic 148 mm[Hg] Comments: Patient Position: Sitting; Cuff Location: Left Arm; Cuff Size: Standard BP Diastolic 78 mm[Hg] Comments: Patient Position: Sitting; Cuff Location: Left Arm; Cuff Size: Standard Weight 201 lb :24 Temperature 97.1 f Comments: Method: Undefined Pulse 56 /min Comments: Pattern: Regular Respiration Rate 16 /min Comments: Pattern: Undefined BP Systolic 130 mm[Hg] Comments: Patient Position: Sitting; Cuff Location: Left Arm; Cuff Size: Large BP Diastolic 60 mm[Hg] Comments: Patient Position: Sitting; Cuff Location: Left Arm; Cuff Size: Large Weight 201 lb Height 0 in Head Circumference 0.00 cm :16 Temperature 97.6 f Comments: Method: Oral Pulse 56 /min Comments: Pattern: Regular Respiration Rate 18 /min Comments: Pattern: Unlabored BP Systolic 148 mm[Hg] Comments: Patient Position: Sitting; Cuff Location: Left Arm; Cuff Size: Standard BP Diastolic 78 mm[Hg] Comments: Patient Position: Sitting; Cuff Location: Left Arm; Cuff Size: Standard Weight 0 lb Height 0 in Head Circumference 0.00 cm :11 Temperature 96.4 f Comments: Method: Undefined Pulse 58 /min Comments: Pattern: Regular Respiration Rate 18 /min Comments: Pattern: Undefined BP Systolic 124 mm[Hg] Comments: Patient Position: Sitting; Cuff Location: Left Arm; Cuff Size: Large BP Diastolic 50 mm[Hg] Comments: Patient Position: Sitting; Cuff Location: Left Arm; Cuff Size: Large Weight 202 lb Height 0 in Head Circumference 0.00 cm :55 Temperature 101.5 f Comments: Method: Oral Pulse 76 /min Comments: Pattern: Regular Respiration Rate 18 /min Comments: Pattern: Unlabored O2 SAT 98 % Comments: Room air BP Systolic 116 mm[Hg] Comments: Patient Position: Sitting; Cuff Location: Left Arm; Cuff Size: Large BP Diastolic 62 mm[Hg] Comments: Patient Position: Sitting; Cuff Location: Left Arm; Cuff Size: Large Weight 215 lb Height 66.25 in Body Mass Index Calculated 34.44 kg/m2 Body Surface Area Calculated 2.07 m2 Head Circumference 0.00 cm :13 Temperature 97.6 f Comments: Method: Undefined Pulse 64 /min Comments: Pattern: Regular Respiration Rate 18 /min Comments: Pattern: Undefined BP Systolic 126 mm[Hg] Comments: Patient Position: Sitting; Cuff Location: Right Arm; Cuff Size: Large BP Diastolic 58 mm[Hg] Comments: Patient Position: Sitting; Cuff Location: Right Arm; Cuff Size: Large Weight 215 lb Height 66.25 in Body Mass Index Calculated 34.44 kg/m2 Body Surface Area Calculated 2.07 m2 Head Circumference 0.00 cm :57 Temperature 96 f Comments: Method: Undefined Pulse 68 /min Comments: Pattern: Regular Respiration Rate 16 /min Comments: Pattern: Undefined BP Systolic 146 mm[Hg] Comments: Patient Position: Sitting; Cuff Location: Left Arm; Cuff Size: Large BP Diastolic 64 mm[Hg] Comments: Patient Position: Sitting; Cuff Location: Left Arm; Cuff Size: Large Weight 219 lb Height 0 in Head Circumference 0.00 cm :52 Temperature 97.1 f Comments: Method: Undefined Pulse 76 /min Comments: Pattern: Regular Respiration Rate 18 /min Comments: Pattern: Undefined BP Systolic 122 mm[Hg] Comments: Patient Position: Sitting; Cuff Location: Right Arm; Cuff Size: Standard BP Diastolic 66 mm[Hg] Comments: Patient Position: Sitting; Cuff Location: Right Arm; Cuff Size: Standard Weight 218 lb Height 0 in Head Circumference 0.00 cm :59 Temperature 97.7 f Comments: Method: Undefined Pulse 76 /min Comments: Pattern: Regular Respiration Rate 16 /min Comments: Pattern: Undefined BP Systolic 134 mm[Hg] Comments: Patient Position: Sitting; Cuff Location: Right Arm; Cuff Size: Standard BP Diastolic 56 mm[Hg] Comments: Patient Position: Sitting; Cuff Location: Right Arm; Cuff Size: Standard Weight 219 lb Height 0 in Head Circumference 0.00 cm :49 Temperature 97.7 f Comments: Method: Oral Pulse 68 /min Comments: Pattern: Regular Respiration Rate 18 /min Comments: Pattern: Unlabored BP Systolic 120 mm[Hg] Comments: Patient Position: Sitting; Cuff Location: Left Arm; Cuff Size: Standard BP Diastolic 62 mm[Hg] Comments: Patient Position: Sitting; Cuff Location: Left Arm; Cuff Size: Standard Weight 218 lb Height 67 in Body Mass Index Calculated 34.14 kg/m2 Body Surface Area Calculated 2.1 m2 Head Circumference 0.00 cm :03 BP Systolic 132 mm[Hg] Comments: Patient Position: Sitting; Cuff Location: Undefined; Cuff Size: Undefined BP Diastolic 70 mm[Hg] Comments: Patient Position: Sitting; Cuff Location: Undefined; Cuff Size: Undefined Weight 0 lb Height 0 in Head Circumference 0.00 cm :25 Temperature 97.7 f Comments: Method: Undefined Pulse 76 /min Comments: Pattern: Regular Respiration Rate 18 /min Comments: Pattern: Undefined BP Systolic 150 mm[Hg] Comments: Patient Position: Sitting; Cuff Location: Left Arm; Cuff Size: Large BP Diastolic 76 mm[Hg] Comments: Patient Position: Sitting; Cuff Location: Left Arm; Cuff Size: Large Weight 218 lb Height 0 in Head Circumference 0.00 cm :53 Temperature 98.2 f Comments: Method: Oral Pulse 56 /min Comments: Pattern: Regular Respiration Rate 18 /min Comments: Pattern: Unlabored BP Systolic 112 mm[Hg] Comments: Patient Position: Sitting; Cuff Location: Left Arm; Cuff Size: Standard BP Diastolic 68 mm[Hg] Comments: Patient Position: Sitting; Cuff Location: Left Arm; Cuff Size: Standard Weight 223 lb Height 0 in Head Circumference 0.00 cm :03 Temperature 97.9 f Comments: Method: Oral Pulse 72 /min Comments: Pattern: Regular Respiration Rate 18 /min Comments: Pattern: Unlabored BP Systolic 142 mm[Hg] Comments: Patient Position: Sitting; Cuff Location: Left Arm; Cuff Size: Large BP Diastolic 78 mm[Hg] Comments: Patient Position: Sitting; Cuff Location: Left Arm; Cuff Size: Large Weight 222 lb Height 0 in Head Circumference 0.00 cm :24 Temperature 98.4 f Comments: Method: Oral Pulse 80 /min Comments: Pattern: Regular Respiration Rate 18 /min Comments: Pattern: Unlabored BP Systolic 132 mm[Hg] Comments: Patient Position: Sitting; Cuff Location: Left Arm; Cuff Size: Standard BP Diastolic 78 mm[Hg] Comments: Patient Position: Sitting; Cuff Location: Left Arm; Cuff Size: Standard Weight 0 lb Height 67 in Head Circumference 0.00 cm :17 Temperature 98 f Comments: Method: Undefined Pulse 74 /min Comments: Pattern: Regular Respiration Rate 16 /min Comments: Pattern: Undefined BP Systolic 130 mm[Hg] Comments: Patient Position: Sitting; Cuff Location: Left Arm; Cuff Size: Standard BP Diastolic 78 mm[Hg] Comments: Patient Position: Sitting; Cuff Location: Left Arm; Cuff Size: Standard Weight 231 lb Height 67 in Body Mass Index Calculated 36.18 kg/m2 Body Surface Area Calculated 2.15 m2 Head Circumference 0.00 cm :36 Temperature 98 f Comments: Method: Oral Pulse 60 /min Comments: Pattern: Regular Respiration Rate 20 /min Comments: Pattern: Unlabored BP Systolic 118 mm[Hg] Comments: Patient Position: Sitting; Cuff Location: Left Arm; Cuff Size: Standard BP Diastolic 66 mm[Hg] Comments: Patient Position: Sitting; Cuff Location: Left Arm; Cuff Size: Standard Weight 221 lb Height 67 in Body Mass Index Calculated 34.61 kg/m2 Body Surface Area Calculated 2.11 m2 Head Circumference 0.00 cm :41 Temperature 98.7 f Comments: Method: Oral Pulse 60 /min Comments: Pattern: Regular Respiration Rate 16 /min Comments: Pattern: Unlabored BP Systolic 150 mm[Hg] Comments: Patient Position: Sitting; Cuff Location: Right Arm; Cuff Size: Standard BP Diastolic 74 mm[Hg] Comments: Patient Position: Sitting; Cuff Location: Right Arm; Cuff Size: Standard Weight 218 lb Height 67 in Body Mass Index Calculated 34.14 kg/m2 Body Surface Area Calculated 2.1 m2 Head Circumference 0.00 cm :59 Pulse 76 /min Comments: Pattern: Regular Respiration Rate 16 /min Comments: Pattern: Undefined BP Systolic 130 mm[Hg] Comments: Patient Position: Undefined; Cuff Location: Undefined; Cuff Size: Undefined BP Diastolic 70 mm[Hg] Comments: Patient Position: Undefined; Cuff Location: Undefined; Cuff Size: Undefined Weight 0 lb Height 0 in Head Circumference 0.00 cm :23 Temperature 97.5 f Comments: Method: Oral Pulse 76 /min Comments: Pattern: Regular Respiration Rate 16 /min Comments: Pattern: Unlabored BP Systolic 144 mm[Hg] Comments: Patient Position: Sitting; Cuff Location: Left Arm; Cuff Size: Standard BP Diastolic 72 mm[Hg] Comments: Patient Position: Sitting; Cuff Location: Left Arm; Cuff Size: Standard Weight 212.1875 lb Height 67 in Body Mass Index Calculated 33.23 kg/m2 Body Surface Area Calculated 2.07 m2 Head Circumference 0.00 cm :21 Temperature 97.5 f Comments: Method: Oral Pulse 72 /min Comments: Pattern: Regular Respiration Rate 16 /min Comments: Pattern: Unlabored BP Systolic 148 mm[Hg] Comments: Patient Position: Sitting; Cuff Location: Left Arm; Cuff Size: Standard BP Diastolic 70 mm[Hg] Comments: Patient Position: Sitting; Cuff Location: Left Arm; Cuff Size: Standard Weight 212.1875 lb Height 67 in Body Mass Index Calculated 33.23 kg/m2 Body Surface Area Calculated 2.07 m2 Head Circumference 0.00 cm :28 Temperature 98.1 f Comments: Method: Oral Pulse 68 /min Comments: Pattern: Regular Respiration Rate 16 /min Comments: Pattern: Unlabored BP Systolic 144 mm[Hg] Comments: Patient Position: Sitting; Cuff Location: Left Arm; Cuff Size: Standard BP Diastolic 66 mm[Hg] Comments: Patient Position: Sitting; Cuff Location: Left Arm; Cuff Size: Standard Weight 196.0625 lb Height 67 in Body Mass Index Calculated 30.71 kg/m2 Body Surface Area Calculated 2.01 m2 Head Circumference 0.00 cm Results Date Description Value Details :08 Blood Glucose , Office (59316) Blood Glucose , Office 110 (Normal) :52 HgA1C , Office (35852) HgA1C , Office 4.9 % (Normal) Range: 4.6 - 7.1 [id number] Basic Metabolic Profile (BMP) Comments: [facility] [id number] [place], [id number] GAP 7 (Normal) Range: 5-15 CO2 30.0 mmol/L (Normal) Range: 21.0-32.0 CL 97 mmol/L (Abnormal) Range: 98-107 K 3.8 mmol/L (Normal) Range: 3.5-5.1 Comments: Slight Hemolysis, Result may be falsely increased. NA 134 mmol/L (Abnormal) Range: 136-145 CA 9.9 mg/dL (Normal) Range: 8.5-10.1 BUN/CRE 25.0 {RATIO} (Abnormal) Range: 10-20 EST GFR - AA 59 mL/min (Abnormal) Comments: GFR Calc EST GFR 49 mL/min (Abnormal) Comments: Non- GFR Calc CREAT,SERUM 1.52 mg/dL (Abnormal) Range: 0.70-1.30 Comments: The validity of the calculated GFR AND GFRAA in patients over70 years has not been determined. Clinical correlation isessential. BUN 38 mg/dL (Abnormal) Range: 7-18 GLU 98 mg/dL (Normal) Range: 74-106 Comments: Please note revised GLUCOSE reference range [id number]/02/2018. :53 Albumin, Serum Comments: [facility] [id number] [place], [address] ALB 3.5 g/dL (Normal) Range: 3.2-5.0 :53 Hemoglobin A1c Comments: [facility] [id number] [place], [address] HGB A1C 5.7 % (Normal) Range: 4.2-6.3 :53 Vitamin D,25 Hydroxy Comments: [facility] [id number] [place], [address] Vitamin D 25-OH 47.7 ng/mL (Normal) Range: 29.95-100.01 Comments: Vitamin D 25(OH) Status Range Deficiency <20 ng/mL (50nmol/L) Insuffciency 20 - 30 ng/mL (50 - 75 nmol/L) Sufficiency 30 - 100 ng/mL (75 - 250 nmol/L) Toxicity >100 ng/mL (>250 nmol/L) [id number] Basic Metabolic Profile (BMP) Comments: [facility] [id number] [place], [phone] GAP 10 (Normal) Range: 5-15 CO2 28.0 mmol/L (Normal) Range: 21.0-32.0 CL 96 mmol/L (Abnormal) Range: 98-107 K 4.4 mmol/L (Normal) Range: 3.5-5.1 NA 134 mmol/L (Abnormal) Range: 136-145 CA 8.9 mg/dL (Normal) Range: 8.5-10.1 BUN/CRE 28.9 {RATIO} (Abnormal) Range: 10-20 Estimated CRCL 17.04 ml/min (Normal) EST GFR - AA 22 mL/min (Abnormal) Comments: GFR Calc EST GFR 18 mL/min (Abnormal) Comments: Non- GFR Calc CREAT,SERUM 3.56 mg/dL (Abnormal) Range: 0.70-1.30 Comments: The validity of the calculated GFR AND GFRAA in patients over70 years has not been determined. Clinical correlation isessential. BUN 103 mg/dL (Abnormal) Range: 7-18 Comments: Critical Result(s) Called at: 18:23:59 02/16/2018 by:Shawna Caicedo to [facility] GLU 96 mg/dL (Normal) Range: 74-106 Comments: Please note revised GLUCOSE reference range [id number]/02/2018. [id number] CBC W/Diff, Automated Comments: [facility] [id number] [place], [phone] Absolute Lymph 1.17 {X10_3/ul} (Normal) Range: 0.83-4.51 Absolute Neut 3.0 {X10_3/uL} (Normal) Range: 2.0-7.7 IM GRAN % 0.000 % (Normal) Range: 0.0-0.9 Comments: IG% - Immature Granulocytes (promyelocytes, myelocytes andmetamyelocytes) > 1% indicates that a LEFT SHIFT is Present. BASO% 0.2 % (Normal) Range: 0-1 EO% 4.5 % (Normal) Range: 0-5 MONO% 9.4 % (Normal) Range: 0-10 LY% 24.0 % (Normal) Range: 19-41 NEUT% 61.9 % (Normal) Range: 47-70 MPV 10.1 fL (Normal) Range: 6.2-12.0 PLT 154 K/mm3 (Normal) Range: 150-450 RDW SD 48.9 fL (Abnormal) Range: 35.1-43.9 RDW CV 13.6 % (Normal) Range: 11.6-14.6 MCHC 33.9 {g/gl} (Normal) Range: 32-36 MCH 33.4 pg (Abnormal) Range: 27.0-32.0 MCV 98.7 fL (Abnormal) Range: 80-94 HCT 44.0 % (Normal) Range: 40-54 HGB 14.9 g/dL (Normal) Range: 13.0-16.5 RBC 4.46 {M/mm3} (Abnormal) Range: 4.6-6.2 WBC 4.9 K/mm3 (Normal) Range: 4.4-11.0 [id number] Urinalysis, Complete Comments: Order Date: 02/16/18Has pt arrived? YHow was Urine Obtained? 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 [address] [place], [place], [id number] MUCUS, URINE 0 SEEN {/hpf} (Normal) BACTERIA 0 SEEN {/hpf} (Normal) SQUAM EPI 0 SEEN {/hpf} (Normal) Range: 0-5 RBC-UA 0 SEEN {/hpf} (Normal) Range: 0-5 WBC 0 SEEN {/hpf} (Normal) Range: 0-5 LEUK ESTERASE Negative /ul (Normal) OCCULT BLOOD-UR Negative /ul (Normal) NITRITE UR Negative (Normal) UROBILI Normal mg/dL (Normal) PROT DIPSTX Negative mg/dL (Normal) pH UR 5.0 (Normal) Range: 5.0 - 8.0 SP.GR. DIPSTX 1.015 (Normal) Range: 1.002-1.030 KETONE UR Negative mg/dL (Normal) BILIRUBIN URINE Negative mg/dL (Normal) GLUCOSE, UR Normal mg/dL (Normal) CLARITY Clear (Normal) COLOR Yellow (Normal) [id number] Blood Glucose , Office (39255) Blood Glucose , Office 123 (Normal) :06 Lipid Profile Comments: [facility] [id number] [place], [place], [id number] VLDL Test not performed mg/dL (Normal) Range: 5-40 LDL Test not performed mg/dL (Normal) Range: 0-130 HDL 35 mg/dL (Abnormal) Comments: The drugs N-Acetylcysteine and Metamizole may falselydepress this assay. Reference Range HDL <40 mg/dL Low HDL Cholesterol HDL >or= 60 mg/dL High HDL Cholesterol TRIG 472 mg/dL (Abnormal) Comments: The drugs N-Acetylcysteine and Metamizole may falselydepress this assay.TRIGLYCERIDE IS GREATER THAN 400 mg/dL.LDL RESULT IS INVALID AND WILL NOT BE REPORTED.Serum Triglycerides Referenc e Interval Normal <150 mg/dL Borderline high 150 - 199 mg/dL High 200 - 499 mg/dL Very High > or = 500 mg/dL CHOL 210 mg/dL (Abnormal) Comments: <200 mg/dL Desirable 200-240 mg/dL Borderline >240 mg/dL High Risk :06 Liver Profile Comments: [facility] [id number] [place], [place], [address] D BILI 0.07 mg/dL (Normal) Range: 0.00-0.30 T BILI 0.30 mg/dL (Normal) Range: 0.20-1.00 ALT 34 U/L (Normal) Range: 16-61 ALK P 58 U/L (Normal) Range: 45-117 AST 23 U/L (Normal) Range: 15-37 GLOB 3.4 g/dL (Normal) Range: 2.2-4.2 ALB 3.4 g/dL (Normal) Range: 3.2-5.0 T PROT 6.8 g/dL (Normal) Range: 6.4-8.2 [id number] CBC W/Diff, Automated Comments: [facility] [id number] [place], [place], [id number] Absolute Lymph 1.39 {X10_3/ul} (Normal) Range: 0.83-4.51 Absolute Neut 3.5 {X10_3/uL} (Normal) Range: 2.0-7.7 IM GRAN % 0.900 % (Normal) Range: 0.0-0.9 Comments: IG% - Immature Granulocytes (promyelocytes, myelocytes andmetamyelocytes) > 1% indicates that a LEFT SHIFT is Present. BASO% 0.5 % (Normal) Range: 0-1 EO% 3.0 % (Normal) Range: 0-5 MONO% 9.1 % (Normal) Range: 0-10 LY% 24.8 % (Normal) Range: 19-41 NEUT% 61.7 % (Normal) Range: 47-70 MPV 9.6 fL (Normal) Range: 6.2-12.0 PLT 159 K/mm3 (Normal) Range: 150-450 RDW SD 52.8 fL (Abnormal) Range: 35.1-43.9 RDW CV 14.3 % (Normal) Range: 11.6-14.6 MCHC 32.6 {g/gl} (Normal) Range: 32-36 MCH 33.2 pg (Abnormal) Range: 27.0-32.0 MCV 101.9 fL (Abnormal) Range: 80-94 HCT 43.3 % (Normal) Range: 40-54 HGB 14.1 g/dL (Normal) Range: 13.0-16.5 RBC 4.25 {M/mm3} (Abnormal) Range: 4.6-6.2 WBC 5.6 K/mm3 (Normal) Range: 4.4-11.0 [id number] Comprehensive Metabolic Profil Comments: [facility] [id number] [place], [place], [phone] GAP 13 (Normal) Range: 5-15 CO2 29.0 mmol/L (Normal) Range: 21.0-32.0 CL 103 mmol/L (Normal) Range: 98-107 K 3.9 mmol/L (Normal) Range: 3.5-5.1 NA 145 mmol/L (Normal) Range: 136-145 T BILI 0.20 mg/dL (Normal) Range: 0.20-1.00 ALT 34 U/L (Normal) Range: 16-61 ALK P 53 U/L (Normal) Range: 45-117 AST 23 U/L (Normal) Range: 15-37 CA 9.2 mg/dL (Normal) Range: 8.5-10.1 A/G 0.9 {RATIO} (Normal) Range: 0.9-2.4 GLOB 3.7 g/dL (Normal) Range: 2.2-4.2 ALB 3.3 g/dL (Normal) Range: 3.2-5.0 T PROT 7.0 g/dL (Normal) Range: 6.4-8.2 BUN/CRE 35.6 {RATIO} (Abnormal) Range: 10-20 EST GFR - AA 50 mL/min (Abnormal) Comments: GFR Calc EST GFR 42 mL/min (Abnormal) Comments: Non- GFR Calc CREAT,SERUM 1.74 mg/dL (Abnormal) Range: 0.70-1.30 Comments: The validity of the calculated GFR AND GFRAA in patients over70 years has not been determined. Clinical correlation isessential. BUN 62 mg/dL (Abnormal) Range: 7-18 GLU 111 mg/dL (Abnormal) Range: 74-106 Comments: Fasting Glucose result from 100 to 125 mg/dLsuggests IMPAIRED HOMEOSTASIS per A.D.A. criteria.Please note revised GLUCOSE reference range riikbauje98/02/2018. 76-Kac-07393:19 Lipid Profile Comments: [facility] [address] [place], [place], [address] VLDL Test not performed mg/dL (Normal) Range: 5-40 LDL Test not performed mg/dL (Normal) Range: 0-130 HDL 41 mg/dL (Normal) Comments: The drugs N-Acetylcysteine and Metamizole may falselydepress this assay. Reference Range HDL <40 mg/dL Low HDL Cholesterol HDL >or= 60 mg/dL High HDL Cholesterol TRIG 571 mg/dL (Abnormal) Comments: The drugs N-Acetylcysteine and Metamizole may falselydepress this assay.TRIGLYCERIDE IS GREATER THAN 400 mg/dL.LDL RESULT IS INVALID AND WILL NOT BE REPORTED.Serum Triglycerides Referenc e Interval Normal <150 mg/dL Borderline high 150 - 199 mg/dL High 200 - 499 mg/dL Very High > or = 500 mg/dL CHOL 245 mg/dL (Abnormal) Comments: <200 mg/dL Desirable 200-240 mg/dL Borderline >240 mg/dL High Risk :19 Microalb:Creat Ratio,Random UR Comments: [facility] [address] [facility] [address] [place], [place], [id number] MALB:CREAT 15.8 {mg/g_CRE} (Normal) MICROALBUMIN,UR 13.4 mg/L (Normal) UR CREAT 84.70 mg/dL (Normal) :19 Thyroid Stim Hormone (TSH) Comments: [facility] [address] [place], [place], [address] TSH 1.82 {uIU/mL} (Normal) Range: 0.358-3.74 :19 Urinalysis, Complete Comments: How was Urine Obtained? CLEAN [facility] [address] [facility] [address] [place], [place], [id number] MUCUS, URINE 0 SEEN {/hpf} (Normal) BACTERIA 0 SEEN {/hpf} (Normal) SQUAM EPI 0-5 SEEN {/hpf} (Normal) Range: 0-5 RBC-UA 0 SEEN {/hpf} (Normal) Range: 0-5 WBC 0 SEEN {/hpf} (Normal) Range: 0-5 LEUK ESTERASE Negative /ul (Normal) OCCULT BLOOD-UR Negative /ul (Normal) NITRITE UR Negative (Normal) UROBILI Normal mg/dL (Normal) PROT DIPSTX Negative mg/dL (Normal) pH UR 6.0 (Normal) Range: 5.0 - 8.0 SP.GR. DIPSTX 1.020 (Normal) Range: 1.002-1.030 KETONE UR Negative mg/dL (Normal) BILIRUBIN URINE Negative mg/dL (Normal) GLUCOSE, UR Normal mg/dL (Normal) CLARITY Clear (Normal) COLOR Yellow (Normal) :19 Vitamin B12 353 pg/mL (Normal) Comments: [facility] [address] [facility] [address] [place], [place], [address] Range: 211-911 :19 Vitamin D,25 Hydroxy Comments: [facility] [address] [place], [id number] Vitamin D 25-OH 24.7 ng/mL (Abnormal) Range: 29.95-100.01 Comments: Vitamin D 25(OH) Status Range Deficiency <20 ng/mL (50nmol/L) Insuffciency 20 - 30 ng/mL (50 - 75 nmol/L) Sufficiency 30 - 100 ng/mL (75 - 250 nmol/L) Toxicity >100 ng/mL (>250 nmol/L) :02 HgA1C , Office (51382) HgA1C , Office 5.4 % (Normal) Range: 4.6 - 7.1 :02 Blood Glucose , Office (16796) Blood Glucose , Office 141 (Normal) :22 Lipid Profile Comments: [facility] [address] [place], [address] VLDL 49 mg/dL (Abnormal) Range: 5-40 LDL 132 mg/dL (Abnormal) Range: 0-130 HDL 55 mg/dL (Normal) Comments: The drugs N-Acetylcysteine and Metamizole may falselydepress this assay. Reference Range HDL <40 mg/dL Low HDL Cholesterol HDL >or= 60 mg/dL High HDL Cholesterol TRIG 246 mg/dL (Abnormal) Comments: The drugs N-Acetylcysteine and Metamizole may falselydepress this assay.Serum Triglycerides Reference Interval Normal <150 mg/dL Borderline high 150 - 199 mg/dL High 200 - 499 mg/dL Very High > or = 500 mg/dL CHOL 236 mg/dL (Abnormal) Comments: <200 mg/dL Desirable 200-240 mg/dL Borderline >240 mg/dL High Risk :22 Liver Profile Comments: [facility] [address] [place], [address] D BILI 0.09 mg/dL (Normal) Range: 0.00-0.30 T BILI 0.30 mg/dL (Normal) Range: 0.20-1.00 ALT 26 U/L (Normal) Range: 12-78 ALK P 55 U/L (Normal) Range: 45-117 AST 18 U/L (Normal) Range: 15-37 GLOB 3.4 g/dL (Normal) Range: 2.2-4.2 ALB 3.6 g/dL (Normal) Range: 3.4-5.0 Comments: Please note revised Albumin AND Globulin reference rangeeffective 2017. T PROT 7.0 g/dL (Normal) Range: 6.4-8.2 :39 PSA (PROSTATE SPECIFIC Comments: PATIENT NOT FASTINGPERFORMED BY: [facility] [facility] [id number] ANTIGEN) (V76.44) Prostate Specific Ag, 0.9 ng/mL (Normal) Range: 0.0-4.0 Serum Comments: [employer] ECLIA methodology. .According to the [employer], Serum PSA shoulddecrease and remain at undetectable levels after radicalprostatectomy. The AUA defines biochemical recurrence as an initialPSA value 0.2 ng/mL or greater followed by a subsequent confirmatoryPSA value 0.2 ng/mL or greater.Values obtained with d ifferent assay methods or kits cannot be usedinterchangeably. Results cannot be interpreted as absolute evidenceof the presence or absence of malignant disease. :04 HgA1C , Office (88277) HgA1C , Office 5.6 % (Normal) Range: 4.6 - 7.1 :04 Blood Glucose , Office (88909) Blood Glucose , Office 117 (Normal) :37 CBC W/Diff, Automated Comments: [facility] [address] [place], [place], [id number] Absolute Lymph 1.18 {X10_3/ul} (Normal) Range: 0.83-4.51 Absolute Neut 3.3 {X10_3/uL} (Normal) Range: 2.0-7.7 IM GRAN % 0.600 % (Normal) Range: 0.0-0.9 Comments: IG% - Immature Granulocytes (promyelocytes, myelocytes andmetamyelocytes) > 1% indicates that a LEFT SHIFT is Present. BASO% 0.4 % (Normal) Range: 0-1 EO% 2.5 % (Normal) Range: 0-5 MONO% 9.8 % (Normal) Range: 0-10 LY% 22.6 % (Normal) Range: 19-41 NEUT% 64.1 % (Normal) Range: 47-70 MPV 9.6 fL (Normal) Range: 6.2-12.0 PLT 192 K/mm3 (Normal) Range: 150-450 RDW SD 57.3 fL (Abnormal) Range: 35.1-43.9 RDW CV 15.6 % (Abnormal) Range: 11.6-14.6 MCHC 32.5 {g/gl} (Normal) Range: 32-36 MCH 33.1 pg (Abnormal) Range: 27.0-32.0 MCV 101.7 fL (Abnormal) Range: 80-94 HCT 41.8 % (Normal) Range: 40-54 HGB 13.6 g/dL (Normal) Range: 13.0-16.5 RBC 4.11 {M/mm3} (Abnormal) Range: 4.6-6.2 WBC 5.2 K/mm3 (Normal) Range: 4.4-11.0 76-Vou-57445:37 Comprehensive Metabolic Profil Comments: [facility] [address] [place], [address] GAP 5 (Normal) Range: 5-15 CO2 32.0 mmol/L (Normal) Range: 21.0-32.0 CL 104 mmol/L (Normal) Range: 98-107 K 4.1 mmol/L (Normal) Range: 3.5-5.1 NA 141 mmol/L (Normal) Range: 136-145 T BILI 0.30 mg/dL (Normal) Range: 0.20-1.00 ALT 23 U/L (Normal) Range: 12-78 ALK P 62 U/L (Normal) Range: 45-117 AST 15 U/L (Normal) Range: 15-37 CA 9.4 mg/dL (Normal) Range: 8.5-10.1 A/G 1.1 {RATIO} (Normal) Range: 0.9-2.4 GLOB 3.5 g/dL (Normal) Range: 2.3-3.5 ALB 3.7 g/dL (Normal) Range: 3.4-5.0 T PROT 7.2 g/dL (Normal) Range: 6.4-8.2 BUN/CRE 25.9 {RATIO} (Abnormal) Range: 10-20 EST GFR - AA 52 mL/min (Abnormal) Comments: GFR Calc EST GFR 43 mL/min (Abnormal) Comments: Non- GFR Calc CREAT,SERUM 1.70 mg/dL (Abnormal) Range: 0.70-1.30 Comments: The validity of the calculated GFR AND GFRAA in patients over70 years has not been determined. Clinical correlation isessential. BUN 44 mg/dL (Abnormal) Range: 7-18 GLU 93 mg/dL (Normal) Range: 70-110 :37 Lipid Profile Comments: [facility] [address] [place], [place], [phone] VLDL 61 mg/dL (Abnormal) Range: 5-40 LDL 132 mg/dL (Abnormal) Range: 0-130 HDL 48 mg/dL (Normal) Comments: The drugs N-Acetylcysteine and Metamizole may falsely deressthis assay. Reference Range HDL <40 mg/dL Low HDL Cholesterol HDL >or= 60 mg/dL High HDL Cholesterol TRIG 305 mg/dL (Abnormal) Comments: The drugs N-Acetylcysteine and Metamizole may falsely deressthis assay.Serum Triglycerides Reference Interval Normal <150 mg/dL Borderline high 150 - 199 mg/dL High 200 - 499 mg/dL Very High > or = 500 mg/dL CHOL 241 mg/dL (Abnormal) Comments: <200 mg/dL Desirable 200-240 mg/dL Borderline >240 mg/dL High Risk :37 Microalb:Creat Ratio,Random UR Comments: [facility] [address] [place], [place], [phone] MALB:CREAT Test not performed {mg/g_CRE} (Normal) MICROALBUMIN,UR < 5.0 mg/L (Normal) UR CREAT 105.00 mg/dL (Normal) :37 Thyroid Stim Hormone (TSH) Comments: [facility] [address] [place], [place], [phone] TSH 1.68 {uIU/mL} (Normal) Range: 0.358-3.74 :37 Urinalysis, Complete Comments: How was Urine Obtained? [facility] [address], [address] MUCUS, URINE 0 SEEN {/hpf} (Normal) BACTERIA 0 SEEN {/hpf} (Normal) SQUAM EPI 0 SEEN {/hpf} (Normal) Range: 0-5 RBC-UA 0 SEEN {/hpf} (Normal) Range: 0-5 WBC 0 SEEN {/hpf} (Normal) Range: 0-5 LEUK ESTERASE Negative /ul (Normal) OCCULT BLOOD-UR Negative /ul (Normal) NITRITE UR Negative (Normal) UROBILI Normal mg/dL (Normal) PROT DIPSTX Negative mg/dL (Normal) pH UR 6.5 (Normal) Range: 5.0 - 8.0 SP.GR. DIPSTX 1.010 (Normal) Range: 1.002-1.030 KETONE UR Negative mg/dL (Normal) BILIRUBIN URINE Negative mg/dL (Normal) GLUCOSE, UR Normal mg/dL (Normal) CLARITY Clear (Normal) COLOR Yellow (Normal) :37 Vitamin B12 539 pg/mL (Normal) Comments: [facility] [address], [id number] Range: 211-911 :37 Vitamin D,25 Hydroxy Comments: [facility] [address] [place], [address] Vitamin D 25-OH 42.0 ng/mL (Normal) Comments: Vitamin D 25(OH) Status Range Deficiency <20 ng/mL (50nmol/L) Insuffciency 20 - 30 ng/mL (50 - 75 nmol/L) Sufficiency 30 - 100 ng/mL (75 - 250 nmol/L) Toxicity >100 ng/mL (>250 nmol/L) Gastric Biopsy See Note (Normal) Comments: [facility] [address], [phone] :56 Comments: Patient: LETHA DETUSCH : 1950 (65/M) Acct Num: [id number] Phys: Jose Antonio Mehta Unit Num: [id number] Loc: LABSPEC Specimen: [id number] Received: 10/21/161630 Spec Type: Gastric Bx TISSUES TISSUES: COMMENT The results of immunohistochemistry for Helicobacter pylori will be reported separately ([id number]). GROSS DESCRIPTION Received in fixative i s one container labeled with the patient's name and designated gastric/antrum biopsy. The specimen consists of two irregular fragments of light pacheco soft tissue that in aggregate measure 0.6 x 0.3 x 0 .1 cm. The specimen is totally submitted in one cassette. / YONI:berta 10/22/16 TC:3 CPT: 40676 HEADER OPERATION: EGD with biopsy PRE-OP DIAGNOSIS: Iron deficiency anemia TISSUE SUBMITTED: Bio psy gastric antrum biopsy, rule out gastritis MICROSCOPIC DESCRIPTION Slides are reviewed. The specimen shows fragments of gastric mucosa with chronic inflammatory cell infiltrates in the lamina propria consisting of lymphocytes and plasma cells, consistent with mild chronic gastritis. MICROSCOPIC DIAGNOSIS Gastric antrum, biopsy: Mild gastritis. SJ:berta 10/25/16 Signed ____ Peterjalen Ibanez 10/25/16 <signature on file> IMMUNOHISTOCHEMISTRY See Note (Normal) Comments: [facility] [address] [place], [address] :00 Comments: Patient: LETHA DEUTSCH : 1950 (65/M) Acct Num: [id number] Phys: Jose Antonio Mehta Unit Num: [id number] Loc: LABSPEC Specimen: [id number] Received: 10/25/161212 Spec Type: IMMUNO TISSUES TISSUES: SPECIMEN INFORMATION: Tissue Source: Gastric antrum biopsy Clinical Info: Iron deficiency anemia Specimen Number: [id number] CPT code: 66789 METHODO LOGY: Deparaffinized sections of prefer/formalin-fixed tissue or PAP/DQ stained slides are incubated with monoclonal/polyclonal antibodies/oligonucleotide probes. Localization is made via biotin free immunoperoxidase method. Appropriate controls are performed and reacted as expected. Results on target cell population are indicated in the following table: RESULTS: ANTIBODY / CLONE RESULT H Pylori (polyclonal) negative These tests were developed and their performance characteristics determined by [facility]. They may not hav e been cleared or approved by the U.S. Food and Drug Administration. The FDA has determined that such clearance or approval is not necessary. INTERPRETATION: Gastric antrum, biopsy: Negative for Helicobacter pylori organisms. SJ:berta 10/26/16 PHYSICIAN AND INSTITUTION [address] [address] Signed Peter Ibanez 10/26/16 <signature on file> 1-Hal-222245:26 CBC-Complete Blood Cnt No Diff Comments: [facility] [address] [facility] [address] [place], [place], [phone] MPV 9.7 fL (Normal) Range: 6.2-12.0 PLT 227 K/mm3 (Normal) Range: 150-450 RDW SD 61.9 fL (Abnormal) Range: 35.1-43.9 RDW CV 16.6 % (Abnormal) Range: 11.6-14.6 MCHC 32.5 {g/gl} (Normal) Range: 32-36 MCH 33.8 pg (Abnormal) Range: 27.0-32.0 MCV 104.2 fL (Abnormal) Range: 80-94 HCT 35.1 % (Abnormal) Range: 40-54 HGB 11.4 g/dL (Abnormal) Range: 13.0-16.5 RBC 3.37 {M/mm3} (Abnormal) Range: 4.6-6.2 WBC 5.5 K/mm3 (Normal) Range: 4.4-11.0 4-Tai-244320:26 Iron Comments: [facility] [address] [place], [place], [phone] IRON 109 ug/dL (Normal) Range: 65-175 0-Kqz-547937:10 Basic Metabolic Profile (BMP) Comments: DR.STRUNETS AMATOS BMP,CBCD DR. JAMEY MALHOTRA PT/[facility] [address] [place], [address] GAP 7 (Normal) Range: 5-15 CO2 28.0 mmol/L (Normal) Range: 21.0-32.0 CL 102 mmol/L (Normal) Range: 98-107 K 4.7 mmol/L (Normal) Range: 3.5-5.1 NA 137 mmol/L (Normal) Range: 136-145 CA 8.5 mg/dL (Normal) Range: 8.5-10.1 BUN/CRE 28.7 {RATIO} (Abnormal) Range: 10-20 EST GFR - AA 53 mL/min (Abnormal) Comments: GFR Calc EST GFR 44 mL/min (Abnormal) Comments: Non- GFR Calc CREAT,SERUM 1.67 mg/dL (Abnormal) Range: 0.70-1.30 Comments: The validity of the calculated GFR AND GFRAA in patients over70 years has not been determined. Clinical correlation isessential. BUN 48 mg/dL (Abnormal) Range: 7-18 GLU 162 mg/dL (Abnormal) Range: 70-110 Comments: Fasting Glucose result greater than or equal to 126 mg/dLsuggests DIABETES MELLITUS per A.D.A. criteria. 7-Vpy-521518:10 CBC W/Diff, Automated Comments: DR.STRUNETS MALHOTRA BMP,CBCD DR. JAMEY MALHOTRA PT/[facility] [address] [place], [address] Absolute Lymph 0.85 {X10_3/ul} (Normal) Range: 0.83-4.51 Absolute Neut 2.5 {X10_3/uL} (Normal) Range: 2.0-7.7 IM GRAN % 0.800 % (Normal) Range: 0.0-0.9 Comments: IG% - Immature Granulocytes (promyelocytes, myelocytes andmetamyelocytes) > 1% indicates that a LEFT SHIFT is Present. BASO% 1.0 % (Normal) Range: 0-1 EO% 5.2 % (Abnormal) Range: 0-5 MONO% 6.2 % (Normal) Range: 0-10 LY% 22.1 % (Normal) Range: 19-41 NEUT% 64.7 % (Normal) Range: 47-70 MPV 8.8 fL (Normal) Range: 6.2-12.0 PLT 285 K/mm3 (Normal) Range: 150-450 RDW SD 53.3 fL (Abnormal) Range: 35.1-43.9 RDW CV 14.4 % (Normal) Range: 11.6-14.6 MCHC 31.4 {g/gl} (Abnormal) Range: 32-36 MCH 33.1 pg (Abnormal) Range: 27.0-32.0 MCV 105.3 fL (Abnormal) Range: 80-94 HCT 28.0 % (Abnormal) Range: 40-54 HGB 8.8 g/dL (Abnormal) Range: 13.0-16.5 RBC 2.66 {M/mm3} (Abnormal) Range: 4.6-6.2 WBC 3.9 K/mm3 (Abnormal) Range: 4.4-11.0 2-Nxd-232199:10 Prothrombin Time w/INR Comments: DR.STRUNETS MALHOTRA BMP,CBCD DR. [facility] [address] [facility] [place], [address] INR 1.5 (Normal) PROTIME 17.9 s (Abnormal) Range: 11.7-14.9 33-Byg-496012:31 Stool Occult Blood iFOB Comments: [facility] [address] [facility] [place], [address] STOB See Note (Normal) Comments: Order Date: 09/02/16 STOB iFOBOccult Blood Positive ORGANISM 1: OCCULT BLOOD POSITIVE 15-Ngu-705229:25 Basic Metabolic Profile (BMP) Comments: [facility] [address] [facility] [place], [address] GAP 8 (Normal) Range: 5-15 CO2 29.0 mmol/L (Normal) Range: 21.0-32.0 CL 102 mmol/L (Normal) Range: 98-107 K 4.4 mmol/L (Normal) Range: 3.5-5.1 NA 139 mmol/L (Normal) Range: 136-145 CA 8.4 mg/dL (Abnormal) Range: 8.5-10.1 BUN/CRE 27.9 {RATIO} (Abnormal) Range: 10-20 Estimated CRCL 30.57 ml/min (Normal) EST GFR - AA 42 mL/min (Abnormal) Comments: GFR Calc EST GFR 35 mL/min (Abnormal) Comments: Non- GFR Calc CREAT,SERUM 2.04 mg/dL (Abnormal) Range: 0.70-1.30 Comments: The validity of the calculated GFR AND GFRAA in patients over70 years has not been determined. Clinical correlation isessential. BUN 57 mg/dL (Abnormal) Range: 7-18 GLU 98 mg/dL (Normal) Range: 70-110 34-Hbc-332708:25 CBC-Complete Blood Cnt No Diff Comments: [facility] [address] [place], [place], [address] MPV 8.8 fL (Normal) Range: 6.2-12.0 PLT 206 K/mm3 (Normal) Range: 150-450 RDW SD 55.5 fL (Abnormal) Range: 35.1-43.9 RDW CV 14.7 % (Abnormal) Range: 11.6-14.6 MCHC 32.6 {g/gl} (Normal) Range: 32-36 MCH 34.3 pg (Abnormal) Range: 27.0-32.0 MCV 105.2 fL (Abnormal) Range: 80-94 HCT 28.2 % (Abnormal) Range: 40-54 HGB 9.2 g/dL (Abnormal) Range: 13.0-16.5 RBC 2.68 {M/mm3} (Abnormal) Range: 4.6-6.2 WBC 5.6 K/mm3 (Normal) Range: 4.4-11.0 13-Isd-804626:25 Liver Profile Comments: [facility] [address] [place], [place], [address] D BILI 0.05 mg/dL (Normal) Range: 0.00-0.30 T BILI 0.20 mg/dL (Normal) Range: 0.20-1.00 ALT 24 U/L (Normal) Range: 12-78 ALK P 51 U/L (Normal) Range: 45-117 AST 13 U/L (Abnormal) Range: 15-37 GLOB 3.3 g/dL (Normal) Range: 2.3-3.5 ALB 3.7 g/dL (Normal) Range: 3.4-5.0 T PROT 7.0 g/dL (Normal) Range: 6.4-8.2 29-Zbp-102904:25 Prothrombin Time w/INR Comments: [facility] [address] [place], [place], [address](048) INR > 19.5 (Abnormal) Comments: RESULTS CALLED TO BRITTANEY 09/02/16 1753 Vito Arteaga.REPORT READ BACK BY SAME. PROTIME > 120.0 s (Abnormal) Range: 11.7-14.9 66-Bsp-852255:53 Prothrombin Time w/INR Comments: [facility] [address] [place], [place], [address](254) INR > 19.5 (Abnormal) Comments: CRITICAL VALUE VERIFIED. CALL[facility] TO GERRY AT [facility]09/02/16 1447 Alice Luque.RESULTS READ BACK BY SAME . PROTIME > 120.0 s (Abnormal) Range: 11.7-14.9 41-Fry-328628:33 Prothrombin Time w/INR Comments: [facility] [address] [place], [place], [address](682) INR 1.9 (Normal) PROTIME 21.2 s (Abnormal) Range: 11.7-14.9 :51 HgA1C , Office (66313) HgA1C , Office 5.5 % (Normal) Range: 4.6 - 7.1 :51 Blood Glucose , Office (38216) Blood Glucose , Office 131 (Normal) 04-Iwl-117009:44 Prothrombin Time w/INR Comments: [facility] [address] [place], [place], [address](018) INR 2.4 (Normal) PROTIME 25.5 s (Abnormal) Range: 11.7-14.9 55-Ujm-842585:11 Prothrombin Time w/INR Comments: [facility] [address] [place], [place], [address](453) INR 1.5 (Normal) PROTIME 17.7 s (Abnormal) Range: 11.7-14.9 2-Eyf-276965:47 Prothrombin Time w/INR Comments: [facility] [address] [place], [address] INR 1.5 (Normal) PROTIME 17.7 s (Abnormal) Range: 11.7-14.9 3-Qzz-614440:45 Basic Metabolic Profile (BMP) Comments: Order Date: 06/09/16Order Info: [id number] - *BMPDR. JAMEY ORDERED PTINR STANDING ORDER.Order Date: 06/09/16Order Info: [id number] - *BMPComments: Reason:[facility] [address] [place], [address] GAP 9 (Normal) Range: 5-15 CO2 30.0 mmol/L (Normal) Range: 21.0-32.0 CL 102 mmol/L (Normal) Range: 98-107 K 4.7 mmol/L (Normal) Range: 3.5-5.1 NA 141 mmol/L (Normal) Range: 136-145 CA 8.9 mg/dL (Normal) Range: 8.5-10.1 BUN/CRE 28.2 {RATIO} (Abnormal) Range: 10-20 EST GFR - AA 51 mL/min (Abnormal) Comments: GFR Calc EST GFR 42 mL/min (Abnormal) Comments: Non- GFR Calc CREAT,SERUM 1.74 mg/dL (Abnormal) Range: 0.70-1.30 Comments: The validity of the calculated GFR AND GFRAA in patients over70 years has not been determined. Clinical correlation isessential. BUN 49 mg/dL (Abnormal) Range: 7-18 GLU 106 mg/dL (Normal) Range: 70-110 42-Kru-08072:02 Prothrombin Time w/INR Comments: [facility] [address] [place], [address] INR 1.8 (Normal) PROTIME 20.1 s (Abnormal) Range: 11.7-14.9 :27 POTASSIUM SERUM (16083) Comments: STAT; Order Date: 06/30/16Order Info: [id number] - KComments: STATOrder Date: 06/30/16Order Info: [id number] - KComments: [facility] [address], [address] K 4.6 mmol/L Range: 3.5-5.1 (Normal) Vitamin B2, Whole 236 ug/L (Normal) Comments: PATIENT NOT FASTINGPERFORMED BY: [facility] W[address]fqo[address] RoadDublin [place] [id number] BY: [address] [id number] 5:40 Blood Range: 137-370 Comments: Reference interval reflects flavinadeninedinucleotide (FAD), that accounts for approximately 90% of the total riboflavin in whole blood. 51-Caf-117820:40 Vitamin B6, Plasma Comments: PATIENT NOT FASTINGPERFORMED BY: [facility] B[address]qxv6054 Hansen RoadDublin [place] [id number] BY: [address] [id number] ([address]) Vitamin B6 36.6 ug/L (Normal) Range: 5.3-46.7 70-Isv-375321:40 ALCOHOL, ETHYL (BLOOD) Comments: serum alcohol; PATIENT NOT FASTINGPERFORMED BY: [facility] I[address]xvg[address] Hansen RoadDublin [place] [id number] BY: [address] [id number] ([address]) Ethanol Negative % (Normal) 34-Lfy-307826:40 AMMONIA (44313) Comments: PATIENT NOT FASTINGPERFORMED BY: [facility] Lmlvzc1547 Hansen RoadDublin [place] [id number] BY: [address] [id number] Ammonia, Plasma 42 ug/dL (Normal) Range: 27-102 21-Hve-417291:40 VITAMIN B-12 Comments: PATIENT NOT FASTINGPERFORMED BY: [facility] Hlowqn[address]27 Hansen RoadDublin [place] [id number] BY: [employer] [id number] (CYANOCOBALAMIN) (51539) Vitamin B12 417 pg/mL (Normal) Range: 211-946 06-Gzb-130378:40 SED RATE ERYTHROCYTE Comments: PATIENT NOT FASTINGPERFORMED BY: LabCoRenee Ville [id number] [facility] [id number] BY: [address] [id number] ([address]) Sedimentation Rate-Westergren 8 mm/h (Normal) Range: 0-30 77-Vaj-376360:40 RHEUMATOID FACTOR-QUANT Comments: PATIENT NOT FASTINGPERFORMED BY: Labtrakkies ResearchRenee Ville [id number] [facility] [id number] BY: [employer] [id number] ([id number]) RA Latex Turbid. 10.8 {IU/mL} (Normal) Range: 0.0-13.9 :40 METABOLIC PANEL, Comments: PATIENT NOT FASTINGPERFORMED BY: [facility]ight[facility] [place] [id number] [facility] [id number] BY: [employer] [id number] COMPREHENSIVE ([id number]) ALT (SGPT) 25 [iU]/L (Normal) Range: 0-44 AST (SGOT) 22 [iU]/L (Normal) Range: 0-40 Alkaline Phosphatase, S 64 [iU]/L (Normal) Range: 39-117 Bilirubin, Total 0.3 mg/dL (Normal) Range: 0.0-1.2 A/G Ratio 1.5 (Normal) Range: 1.2-2.2 Comments: Please note reference interval change Globulin, Total 2.8 g/dL (Normal) Range: 1.5-4.5 Albumin, Serum 4.3 g/dL (Normal) Range: 3.6-4.8 Protein, Total, Serum 7.1 g/dL (Normal) Range: 6.0-8.5 Calcium, Serum 10.2 mg/dL (Normal) Range: 8.6-10.2 Carbon Dioxide, Total 27 mmol/L (Normal) Range: 18-29 Chloride, Serum 96 mmol/L (Normal) Range: 96-106 Potassium, Serum 5.7 mmol/L (Abnormal) Range: 3.5-5.2 Comments: Client Requested Flag Sodium, Serum 139 mmol/L (Normal) Range: 134-144 BUN/Creatinine Ratio 43 (Abnormal) Range: 10-22 eGFR If Africn Am 58 mL/min/1.73 (Abnormal) eGFR If NonAfricn Am 50 mL/min/1.73 (Abnormal) Creatinine, Serum 1.43 mg/dL (Abnormal) Range: 0.76-1.27 BUN 61 mg/dL (Abnormal) Range: 8-27 Glucose, Serum 100 mg/dL (Abnormal) Range: 65-99 :40 C-REACTIVE PROTEIN Comments: PATIENT NOT FASTINGPERFORMED BY: [address] [id number] BY: [facility] [id number] ([id number]) C-Reactive Protein, Quant 0.9 mg/L (Normal) Range: 0.0-4.9 :40 CBC (AUTO) ([id number]) Comments: PATIENT NOT FASTINGPERFORMED BY: [address] [id number] BY: [facility] [address] [id number] Platelets 194 {x10E3/uL} (Normal) Range: 150-379 RDW 15.6 % (Abnormal) Range: 12.3-15.4 MCHC 33.1 g/dL (Normal) Range: 31.5-35.7 MCH 34.4 pg (Abnormal) Range: 26.6-33.0 MCV 104 fL (Abnormal) Range: 79-97 Hematocrit 39.9 % (Normal) Range: 37.5-51.0 Hemoglobin 13.2 g/dL (Normal) Range: 12.6-17.7 RBC 3.84 {x10E6/uL} (Abnormal) Range: 4.14-5.80 WBC 5.9 {x10E3/uL} (Normal) Range: 3.4-10.8 :40 CHIQUI (ANTINUCLEAR ANTIBODY) Comments: PATIENT NOT FASTINGPERFORMED BY: [employer] [id number] BY: [address] [id number] ([id number]) CHIQUI Direct Negative (Normal) :40 TSH ([id number]) Comments: PATIENT NOT FASTINGPERFORMED BY: [employer] [id number] BY: [address] [id number] TSH 2.350 {uIU/mL} (Normal) Range: 0.450-4.500 :40 T4, FREE (THYROXINE) Comments: PATIENT NOT FASTINGPERFORMED BY: [facility]Saint [facility] HospitalVqighb8558 [facility] [id number] BY: [address] [id number] (61972) T4,Free(Direct) 0.95 ng/dL (Normal) Range: 0.82-1.77 :40 T3, FREE (TRIDOTHYRONINE) Comments: PATIENT NOT FASTINGPERFORMED BY: [facility] [id number] [facility] [id number] BY: [address] [id number] ([id number]) Triiodothyronine,Free,Serum 2.7 pg/mL (Normal) Range: 2.0-4.4 :40 CALCIFIDIOL (06719) VIT D Comments: PATIENT NOT FASTINGPERFORMED BY: [address] [id number] BY: [address] [id number] 25 Vitamin D, 25-Hydroxy 43.4 ng/mL (Normal) Range: 30.0-100.0 Comments: Vitamin D deficiency has been defined by the [place] ofMedicine and an Endocrine Society practice guideline as alevel of serum 25-OH vitamin D less than 20 ng/mL (1,2).The Endocrine Society went on to further define vitamin Dinsufficiency as a level between 21 and 29 ng/mL (2).1. IOM ([place] of Medicine). 2010. Dietary reference intakes for calcium and D. Ca DC: The National Academies Press.2. Elyse MF, Saumya PUENTE, Nai MARIANO, et al. Evaluation, treatment, and prevention of vitamin D deficiency: an Endocrine Society clinical practice guideline. JCEM. 2010; 96(7):1911-30. 17-Qno-230158:45 Alcohol, Blood (Medical)-Serum Comments: [facility] [address] [place], [place], [address] SERUM ETOH 353.0 mg/dL (Abnormal) Comments: CALLED KEESHA LOBO RN ED [place] 2054PM MAF READ BACK BY SAMEThe serum:whole blood ethanol ratio is approximately 1.14and varies slightly with hematocrit.Medical Alcohol reference interval and critical v alue innon-tolerant individuals; 50 - 100 Impairment 100 Intoxication 100 - 250 Severe Poisoning 250 - 400 Deep/possible fatal coma 44-Pxb-[id number]:45 Basic Metabolic Profile (BMP) Comments: 'TROP' Serial specimen #1, #2, #3, or #4: [facility] [address] [place], [place], [id number] GAP 10 (Normal) Range: 5-15 CO2 26.0 mmol/L (Normal) Range: 21.0-32.0 CL 104 mmol/L (Normal) Range: 98-107 K 4.7 mmol/L (Normal) Range: 3.5-5.1 NA 140 mmol/L (Normal) Range: 136-145 CA 9.0 mg/dL (Normal) Range: 8.5-10.1 BUN/CRE 31.7 {RATIO} (Abnormal) Range: 10-20 Estimated CRCL 57.57 ml/min (Normal) EST GFR - AA 49 mL/min (Abnormal) Comments: GFR Calc EST GFR 40 mL/min (Abnormal) Comments: Non- GFR Calc CREAT,SERUM 1.80 mg/dL (Abnormal) Range: 0.70-1.30 Comments: The validity of the calculated GFR AND GFRAA in patients over70 years has not been determined. Clinical correlation isessential. BUN 57 mg/dL (Abnormal) Range: 7-18 GLU 95 mg/dL (Normal) Range: 70-110 :45 CBC W/Diff, Automated Comments: [facility] [address] [place], [place], [id number] Absolute Lymph 2.30 {X10_3/ul} (Normal) Range: 0.83-4.51 Absolute Neut 3.3 {X10_3/uL} (Normal) Range: 2.0-7.7 IM GRAN % 0.300 % (Normal) Range: 0.0-0.9 Comments: IG% - Immature Granulocytes (promyelocytes, myelocytes andmetamyelocytes) > 1% indicates that a LEFT SHIFT is Present. BASO% 0.3 % (Normal) Range: 0-1 EO% 0.8 % (Normal) Range: 0-5 MONO% 9.6 % (Normal) Range: 0-10 LY% 36.8 % (Normal) Range: 19-41 NEUT% 52.2 % (Normal) Range: 47-70 MPV 8.4 fL (Normal) Range: 6.2-12.0 PLT 182 K/mm3 (Normal) Range: 150-450 RDW SD 60.8 fL (Abnormal) Range: 35.1-43.9 RDW CV 15.6 % (Abnormal) Range: 11.6-14.6 MCHC 32.4 {g/gl} (Normal) Range: 32-36 MCH 34.6 pg (Abnormal) Range: 27.0-32.0 MCV 106.8 fL (Abnormal) Range: 80-94 HCT 39.2 % (Abnormal) Range: 40-54 HGB 12.7 g/dL (Abnormal) Range: 13.0-16.5 RBC 3.67 {M/mm3} (Abnormal) Range: 4.6-6.2 WBC 6.3 K/mm3 (Normal) Range: 4.4-11.0 :45 Partial Thromboplast Time Comments: [facility] [address] [place], [id number] PTT 28.3 s (Normal) Range: 24.1-36.2 :45 Prothrombin Time w/INR Comments: [facility] [address] [place], [address] INR 1.1 (Normal) PROTIME 14.1 s (Normal) Range: 11.7-14.9 :45 Troponin-I Comments: 'TROP' Serial specimen #1, #2, #3, or #4: [facility] [address] [place], [address] TROPONIN-I < 0.02 ng/mL (Normal) Comments: TROPONIN-I EXPECTED VALUES <0.05 NEGATIVE 0.06 - 0.59 AT RISK OF NC > OR = 0.60 SUGGEST NC :24 Prothrombin Time w/INR Comments: [place] [address] [place], [id number] ; managed by [facility] INR 1.3 (Normal) PROTIME 15.2 s (Abnormal) Range: 11.7-14.9 51-Gqx-285273:46 INR Fingerstick Comments: [facility] LaboratorySamantha Ville [address] [place] [phone] INR ISTAT 3.90 (Abnormal) Comments: Critical Value > 3.5 :46 Prothrombin Time Fingerstick Comments: [facility] LaboratorySamantha Ville [address] [place] [address] PROTIME ISTAT 43.7 {SEC} (Abnormal) Range: 11.9-14.4 Comments: Reference Range 11.9 - 14.4 :46 Prothrombin Time w/INR Comments: [place] [address] [place], [address] INR 4.0 (Abnormal) Comments: CRITICAL VALUE VERIFIED. CALLED TO [id number] Nova Walters.RESULTS READ BACK BY SAME . PROTIME 38.0 s (Abnormal) Range: 11.7-14.9 93-Isk-567499:49 Prothrombin Time w/INR Comments: [facility] [address] [place], [id number] INR 2.8 (Normal) PROTIME 28.4 s (Abnormal) Range: 11.7-14.9 08-Zpi-754783:52 Basic Metabolic Profile (BMP) Comments: Order Date: 05/04/16Order Info: [id number] - *BMPOrder Date: 05/04/16Order Info: [id number] - *Brain Natriuretic Peptide BNPComments: Reason:[facility] [address] [place], [phone] GAP 10 (Normal) Range: 5-15 CO2 30.0 mmol/L (Normal) Range: 21.0-32.0 CL 104 mmol/L (Normal) Range: 98-107 K 4.4 mmol/L (Normal) Range: 3.5-5.1 NA 144 mmol/L (Normal) Range: 136-145 CA 8.5 mg/dL (Normal) Range: 8.5-10.1 BUN/CRE 23.3 {RATIO} (Abnormal) Range: 10-20 EST GFR - AA 41 mL/min (Abnormal) Comments: GFR Calc EST GFR 34 mL/min (Abnormal) Comments: Non- GFR Calc CREAT,SERUM 2.10 mg/dL (Abnormal) Range: 0.70-1.30 Comments: The validity of the calculated GFR AND GFRAA in patients over70 years has not been determined. Clinical correlation isessential. BUN 49 mg/dL (Abnormal) Range: 7-18 GLU 104 mg/dL (Normal) Range: 70-110 77-Cvp-297676:52 BNP,B-Type NATRIURETIC PEPTIDE Comments: Order Date: 05/04/16Order Info: [id number] - *Brain Natriuretic Peptide BNPOrder Date: 05/04/16Order Info: [id number] - *Brain Natriuretic Peptide BNPWooBlanchard [facility] [address] [place], [phone] B-TYPE ARASELI PEP 240.6 pg/mL (Abnormal) Range: 0-100 47-Pdu-948314:52 Prothrombin Time w/INR Comments: [facility] [address] [place], [phone] INR 2.5 (Normal) PROTIME 25.8 s (Abnormal) Range: 11.7-14.9 :46 Liver Profile Comments: Order Date: 12/12/15Order Date: 12/12/15[facility] [address] [place], [id number] D BILI 0.12 mg/dL (Normal) Range: 0.00-0.30 T BILI 0.30 mg/dL (Normal) Range: 0.20-1.00 ALT 35 U/L (Normal) Range: 12-78 ALK P 56 U/L (Normal) Range: 45-117 AST 25 U/L (Normal) Range: 15-37 Comments: Slight Hemolysis, Result may be falsely increased. GLOB 3.7 g/dL (Abnormal) Range: 2.3-3.5 ALB 3.7 g/dL (Normal) Range: 3.4-5.0 T PROT 7.4 g/dL (Normal) Range: 6.4-8.2 :46 Prothrombin Time w/INR Comments: [facility] [address] [place], [phone] INR 3.6 (Abnormal) Comments: CRITICAL VALUE REPEATED AND VERIFIED. CALLED TO DARRYL MEYERS'S OFFICE.04/26/16 1238 Randy Buchanan.RESULTS READ BACK BY SAME. PROTIME 35.0 s (Abnormal) Range: 11.7-14.9 :58 Basic Metabolic Profile (BMP) Comments: [facility] [address] [place], [id number] GAP 7 (Normal) Range: 5-15 CO2 32.0 mmol/L (Normal) Range: 21.0-32.0 CL 100 mmol/L (Normal) Range: 98-107 K 3.5 mmol/L (Normal) Range: 3.5-5.1 NA 139 mmol/L (Normal) Range: 136-145 CA 8.7 mg/dL (Normal) Range: 8.5-10.1 BUN/CRE 23.3 {RATIO} (Abnormal) Range: 10-20 EST GFR - AA 56 mL/min (Abnormal) Comments: GFR Calc EST GFR 46 mL/min (Abnormal) Comments: Non- GFR Calc CREAT,SERUM 1.59 mg/dL (Abnormal) Range: 0.70-1.30 Comments: The validity of the calculated GFR AND GFRAA in patients over70 years has not been determined. Clinical correlation isessential. BUN 37 mg/dL (Abnormal) Range: 7-18 GLU 109 mg/dL (Normal) Range: 70-110 :58 Prothrombin Time w/INR Comments: [facility] [address] [place], [place], [phone] INR 1.9 (Normal) PROTIME 20.9 s (Abnormal) Range: 11.7-14.9 :08 Prothrombin Time w/INR Comments: [address] [place], [place], [address] INR 3.3 (Normal) PROTIME 32.5 s (Abnormal) Range: 11.7-14.9 :34 Prothrombin Time w/INR Comments: [place] [address] [place], [address] ; managed by cardio INR 2.6 (Normal) PROTIME 27.0 s (Abnormal) Range: 11.7-14.9 :16 HgA1C , Office (80714) HgA1C , Office 5.7 % (Normal) Range: 4.6 - 7.1 :13 Prothrombin Time w/INR Comments: [facility] [address] [place], [place], [phone](317) INR 2.6 (Normal) PROTIME 27.1 s (Abnormal) Range: 11.7-14.9 :26 CBC W/Diff, Automated Comments: [address] [place] [place], [address] Absolute Lymph 1.54 {X10_3/ul} (Normal) Range: 0.83-4.51 Absolute Neut 4.1 {X10_3/uL} (Normal) Range: 2.0-7.7 IM GRAN % 0.500 % (Normal) Range: 0.0-0.9 Comments: IG% - Immature Granulocytes (promyelocytes, myelocytes andmetamyelocytes) > 1% indicates that a LEFT SHIFT is Present. BASO% 0.6 % (Normal) Range: 0-1 EO% 2.2 % (Normal) Range: 0-5 MONO% 8.4 % (Normal) Range: 0-10 LY% 24.3 % (Normal) Range: 19-41 NEUT% 64.0 % (Normal) Range: 47-70 MPV 9.3 fL (Normal) Range: 6.2-12.0 PLT 159 K/mm3 (Normal) Range: 150-450 RDW SD 54.4 fL (Abnormal) Range: 35.1-43.9 RDW CV 14.3 % (Normal) Range: 11.6-14.6 MCHC 32.6 {g/gl} (Normal) Range: 32-36 MCH 34.2 pg (Abnormal) Range: 27.0-32.0 MCV 104.9 fL (Abnormal) Range: 80-94 HCT 44.8 % (Normal) Range: 40-54 HGB 14.6 g/dL (Normal) Range: 13.0-16.5 RBC 4.27 {M/mm3} (Abnormal) Range: 4.6-6.2 WBC 6.3 K/mm3 (Normal) Range: 4.4-11.0 16-Mar-20166:26 Comprehensive Metabolic Profil Comments: ORDERED PT/INRDR.IRVIN ORDERED VITD LIPID MAG CBCD CMP MIACRE [facility] [address] [place], [address] GAP 4 (Abnormal) Range: 5-15 CO2 28.0 mmol/L (Normal) Range: 21.0-32.0 CL 106 mmol/L (Normal) Range: 98-107 K 4.7 mmol/L (Normal) Range: 3.5-5.1 NA 138 mmol/L (Normal) Range: 136-145 T BILI 0.50 mg/dL (Normal) Range: 0.20-1.00 ALT 31 U/L (Normal) Range: 12-78 ALK P 41 U/L (Abnormal) Range: 45-117 AST 20 U/L (Normal) Range: 15-37 CA 8.7 mg/dL (Normal) Range: 8.5-10.1 A/G 1.1 {RATIO} (Normal) Range: 0.9-2.4 GLOB 3.4 g/dL (Normal) Range: 2.3-3.5 ALB 3.6 g/dL (Normal) Range: 3.4-5.0 T PROT 7.0 g/dL (Normal) Range: 6.4-8.2 BUN/CRE 29.1 {RATIO} (Abnormal) Range: 10-20 EST GFR - AA 46 mL/min (Abnormal) Comments: GFR Calc EST GFR 38 mL/min (Abnormal) Comments: Non- GFR Calc CREAT,SERUM 1.89 mg/dL (Abnormal) Range: 0.70-1.30 Comments: The validity of the calculated GFR AND GFRAA in patients over70 years has not been determined. Clinical correlation isessential. BUN 55 mg/dL (Abnormal) Range: 7-18 GLU 100 mg/dL (Normal) Range: 70-110 16-Mar-20166:26 Lipid Profile Comments: ORDERED PT/INRDR.IRVIN ORDERED VITD LIPID MAG CBCD CMP MIACRE [facility] [address] [place], [address] VLDL 72 mg/dL (Abnormal) Range: 5-40 LDL 131 mg/dL (Abnormal) Range: 0-130 HDL 56 mg/dL (Normal) Comments: The drugs N-Acetylcysteine and Metamizole may falsely deressthis assay. Reference Range HDL <40 mg/dL Low HDL Cholesterol HDL >or= 60 mg/dL High HDL Cholesterol TRIG 359 mg/dL (Abnormal) Comments: The drugs N-Acetylcysteine and Metamizole may falsely deressthis assay.Serum Triglycerides Reference Interval Normal <150 mg/dL Borderline high 150 - 199 mg/dL High 200 - 499 mg/dL Very High > or = 500 mg/dL CHOL 259 mg/dL (Abnormal) Comments: <200 mg/dL Desirable 200-240 mg/dL Borderline >240 mg/dL High Risk :26 Magnesium Comments: ORDERED PT/INRDR.IRVIN ORDERED VITD LIPID MAG CBCD [facility] [address] [place], [phone] MG 2.6 mg/dL (Abnormal) Range: 1.8-2.4 :26 Microalb:Creat Ratio,Random UR Comments: [facility] [address] [place], [phone] MALB:CREAT 24.3 {mg/g_CRE} (Normal) MICROALBUMIN,UR 70.9 mg/L (Normal) UR CREAT 292.00 mg/dL (Normal) :26 Prothrombin Time w/INR Comments: [facility] [address] [place], [phone] INR 3.5 (Abnormal) Comments: CRITICAL VALUE REPEATED AND VERIFIED. CALLED TO ORTIZ LABOY'S OFFICE.03/16/16 0742 Randy Buchanan.RESULTS READ BACK BY SAME. PROTIME 33.9 s (Abnormal) Range: 11.7-14.9 :26 Thyroid Stim Hormone (TSH) Comments: ORDERED PT/INRDR.IRVIN ORDERED VITD LIPID MAG CBCD [facility] [address] [place], [id number] TSH 2.35 {uIU/mL} (Normal) Range: 0.358-3.74 :26 Urinalysis, Complete Comments: How was Urine Obtained? CLEAN [facility] [address] [place], [phone] HYALINE CAST 5-10 SEEN {/lpf} (Normal) Range: 0-5 MUCUS, URINE 1+ {/hpf} (Normal) BACTERIA 0 SEEN {/hpf} (Normal) SQUAM EPI 5-10 SEEN {/hpf} (Normal) Range: 0-5 RBC-UA 0-5 SEEN {/hpf} (Normal) Range: 0-5 WBC 0-5 SEEN {/hpf} (Normal) Range: 0-5 LEUK ESTERASE 25 /ul (Abnormal) OCCULT BLOOD-UR 10 /ul (Abnormal) NITRITE UR Negative (Normal) UROBILI Normal mg/dL (Normal) PROT DIPSTX 30 mg/dL (Abnormal) pH UR 5.0 (Normal) Range: 5.0 - 8.0 SP.GR. DIPSTX 1.020 (Normal) Range: 1.002-1.030 KETONE UR Negative mg/dL (Normal) BILIRUBIN URINE Negative mg/dL (Normal) GLUCOSE, UR 50 mg/dL (Abnormal) CLARITY Sl. Cloudy (Normal) COLOR Yellow (Normal) :26 Vitamin D,25 Hydroxy Comments: [facility] [address] [place], [place], [phone] Vitamin D 25-OH 39.8 ng/mL (Normal) Comments: Vitamin D 25(OH) Status Range Deficiency <20 ng/mL (50nmol/L) Insuffciency 20 - 30 ng/mL (50 - 75 nmol/L) Sufficiency 30 - 100 ng/mL (75 - 250 nmol/L) Toxicity >100 ng/mL (>250 nmol/L) :03 Prothrombin Time w/INR Comments: [facility] [address] [place], [place], [address] INR 4.0 (Abnormal) Comments: CRITICAL VALUE REPEATED AND VERIFIED. [facility]/16 0907 Alice Luque.RESULTS READ BACK BY SAME . PROTIME 37.4 s (Abnormal) Range: 11.7-14.9 :57 Prothrombin Time w/INR Comments: [facility] [address] [place], [place], [phone] INR 1.6 (Normal) PROTIME 18.3 s (Abnormal) Range: 11.7-14.9 :02 Prothrombin Time w/INR Comments: [facility] [address], [address] INR 1.8 (Normal) PROTIME 20.6 s (Abnormal) Range: 11.7-14.9 :12 Prothrombin Time w/INR Comments: [facility] [address] [place], [address](100) INR 2.3 (Normal) PROTIME 24.4 s (Abnormal) Range: 11.7-14.9 :50 Prothrombin Time w/INR Comments: [facility] [address], [address](023) INR 2.8 (Normal) PROTIME 28.9 s (Abnormal) Range: 11.7-14.9 :40 INR Fingerstick Comments: [facility] LaboratoryPoint Danny [place] [address] [place] [address](364) INR ISTAT 2.40 (Normal) Comments: Critical Value > 3.5 :40 Prothrombin Time Fingerstick Comments: [facility] LaboratoryPoint Danny [place] [address] [place] [address] PROTIME ISTAT 27.5 {SEC} (Abnormal) Range: 11.9-14.4 Comments: Reference Range 11.9 - 14.4 :54 Prothrombin Time w/INR Comments: THERE IS NO VRO CHARGE ON THIS PATIENT; THIS PATIENTRETURNED FROM TUESDAY. A BMP AND A PT WAS SUPPOSED TO BEDRAWN, ONLY THE BMP WAS DONE. [facility] [address] [place], [address] INR 2.8 (Normal) PROTIME 28.4 s (Abnormal) Range: 11.7-14.9 :38 Basic Metabolic Profile (BMP) Comments: Order Date: 01/08/16Comments: Reason:Order Date: 01/08/16Comments: Reason:[facility] [address] [place], [address] GAP 9 (Normal) Range: 5-15 CO2 25.0 mmol/L (Normal) Range: 21.0-32.0 CL 107 mmol/L (Normal) Range: 98-107 K 4.2 mmol/L (Normal) Range: 3.5-5.1 NA 141 mmol/L (Normal) Range: 136-145 CA 8.9 mg/dL (Normal) Range: 8.5-10.1 BUN/CRE 19.1 {RATIO} (Normal) Range: 10-20 EST GFR - AA 70 mL/min (Normal) Comments: GFR Calc EST GFR 58 mL/min (Abnormal) Comments: Non- GFR Calc CREAT,SERUM 1.31 mg/dL (Abnormal) Range: 0.70-1.30 Comments: The validity of the calculated GFR AND GFRAA in patients over70 years has not been determined. Clinical correlation isessential. BUN 25 mg/dL (Abnormal) Range: 7-18 GLU 110 mg/dL (Normal) Range: 70-110 Comments: Fasting Glucose result from 110 to <126 mg/dLsuggests IMPAIRED HOMEOSTASIS per A.D.A. criteria. :52 Prothrombin Time w/INR Comments: [facility] [address] [place], [place], [phone](263) INR 4.6 (Abnormal) Comments: CRITICAL VALUE REPEATED AND VERIFIED. CALLED TO [facility]02/05/16 1003 Alice Luque.RESULTS READ BACK BY SAME . PROTIME 41.9 s (Abnormal) Range: 11.7-14.9 :01 Prothrombin Time w/INR Comments: [facility] [address] [place], [place], [phone] INR 2.5 (Normal) PROTIME 26.0 s (Abnormal) Range: 11.7-14.9 :40 Prothrombin Time w/INR Comments: [facility] [address] [place], [place], [address] INR 2.5 (Normal) PROTIME 26.1 s (Abnormal) Range: 11.7-14.9 :52 Prothrombin Time w/INR Comments: [facility] [address] [place], [phone] INR 2.3 (Normal) PROTIME 24.3 s (Abnormal) Range: 11.7-14.9 2-Bcs-801291:24 Basic Metabolic Profile (BMP) Comments: Order Date: 01/13/16Comments: Reason: For Out patient Cardioversion on 02/16/16Order Date: 01/13/16Comments: Reason: For Out patient Cardioversion on 02/16/16[facility] [address] [place], [id number] GAP 5 (Normal) Range: 5-15 CO2 33.0 mmol/L (Abnormal) Range: 21.0-32.0 CL 102 mmol/L (Normal) Range: 98-107 K 4.0 mmol/L (Normal) Range: 3.5-5.1 NA 140 mmol/L (Normal) Range: 136-145 CA 10.3 mg/dL (Abnormal) Range: 8.5-10.1 BUN/CRE 29.5 {RATIO} (Abnormal) Range: 10-20 EST GFR - AA 53 mL/min (Abnormal) Comments: GFR Calc EST GFR 44 mL/min (Abnormal) Comments: Non- GFR Calc CREAT,SERUM 1.66 mg/dL (Abnormal) Range: 0.70-1.30 Comments: The validity of the calculated GFR AND GFRAA in patients over70 years has not been determined. Clinical correlation isessential. BUN 49 mg/dL (Abnormal) Range: 7-18 GLU 108 mg/dL (Normal) Range: 70-110 88-Cat-93598:45 Basic Metabolic Profile (BMP) Comments: Order Date: 12/09/15Interface Comments: Reason:Order Date: 12/09/15[facility] [address] [place], [phone] GAP 9 (Normal) Range: 5-15 CO2 29.0 mmol/L (Normal) Range: 21.0-32.0 CL 99 mmol/L (Normal) Range: 98-107 K 3.8 mmol/L (Normal) Range: 3.5-5.1 NA 137 mmol/L (Normal) Range: 136-145 CA 8.4 mg/dL (Abnormal) Range: 8.5-10.1 BUN/CRE 35.9 {RATIO} (Abnormal) Range: 10-20 EST GFR - AA 41 mL/min (Abnormal) Comments: GFR Calc EST GFR 34 mL/min (Abnormal) Comments: Non- GFR Calc CREAT,SERUM 2.09 mg/dL (Abnormal) Range: 0.70-1.30 Comments: The validity of the calculated GFR AND GFRAA in patients over70 years has not been determined. Clinical correlation isessential. BUN 75 mg/dL (Abnormal) Range: 7-18 GLU 93 mg/dL (Normal) Range: 70-110 :45 Prothrombin Time w/INR Comments: Order Date: 01/05/16Interface Comments: Reason:Atrial fib, on CoumadinOrder Date: 01/05/16[facility] [address] [place], [place], [phone](227) INR 3.6 (Abnormal) Comments: CRITICAL VALUE REPEATED AND VERIFIED. CALLED TO CANDACE P001/07/16 0819 Terrie Toussaint.RESULTS READ BACK BY CANDACE. PROTIME 34.9 s (Abnormal) Range: 11.7-14.9 :21 Prothrombin Time w/INR Comments: [facility] [address] [place], [place], [phone](295) INR 2.1 (Normal) PROTIME 23.1 s (Abnormal) Range: 11.7-14.9 :12 Prothrombin Time w/INR Comments: Order Date: 12/26/15Interface Comments: draw on arrivalOrder Date: 12/26/15[facility] [address] [place], [place], [phone](867) INR 2.9 (Normal) PROTIME 29.2 s (Abnormal) Range: 11.7-14.9 86-Fup-055030:08 Prothrombin Time w/INR Comments: [facility] [address] [place], [address](872) INR 1.7 (Normal) PROTIME 19.6 s (Abnormal) Range: 11.7-14.9 04-Whv-01805:03 Prothrombin Time w/INR Comments: Order Date: 12/18/15Order Date: 12/18/15[facility] [address] [place], [address] INR 4.1 (Abnormal) Comments: CRITICAL VALUE REPEATED AND VERIFIED. CALLED TO DARRYL LABOY'S OFFICE.12/23/15 0803 Randy Buchanan.RESULTS READ BACK BY SAME. PROTIME 38.6 s (Abnormal) Range: 11.7-14.9 [id number] Basic Metabolic Profile (BMP) Comments: Order Date: 12/18/15Interface Comments: Reason:Order Date: 12/18/15[facility] [id number] [place], [address] GAP 9 (Normal) Range: 5-15 CO2 28.0 mmol/L (Normal) Range: 21.0-32.0 CL 100 mmol/L (Normal) Range: 98-107 K 3.8 mmol/L (Normal) Range: 3.5-5.1 NA 137 mmol/L (Normal) Range: 136-145 CA 8.8 mg/dL (Normal) Range: 8.5-10.1 BUN/CRE 36.9 {RATIO} (Abnormal) Range: 10-20 EST GFR - AA 61 mL/min (Normal) Comments: GFR Calc EST GFR 50 mL/min (Abnormal) Comments: Non- GFR Calc CREAT,SERUM 1.49 mg/dL (Abnormal) Range: 0.70-1.30 Comments: The validity of the calculated GFR AND GFRAA in patients over70 years has not been determined. Clinical correlation isessential. BUN 55 mg/dL (Abnormal) Range: 7-18 GLU 110 mg/dL (Normal) Range: 70-110 Comments: Fasting Glucose result from 110 to <126 mg/dLsuggests IMPAIRED HOMEOSTASIS per A.D.A. criteria. :11 Prothrombin Time w/INR Comments: [facility] [id number], [address] INR 3.6 (Abnormal) Comments: CRITICAL VALUE REPEATED AND VERIFIED. CALLED TO TORITO MEHTA12/16/15 Ondina Alice Luque.RESULTS READ BACK BY SAME . PROTIME 34.5 s (Abnormal) Range: 11.7-14.9 :10 Basic Metabolic Profile (BMP) Comments: Order Date: 12/04/15Interface Comments: Reason:Order Date: 12/04/15[facility] [id number] [place], [place], [id number] GAP 8 (Normal) Range: 5-15 CO2 28.0 mmol/L (Normal) Range: 21.0-32.0 CL 104 mmol/L (Normal) Range: 98-107 K 4.0 mmol/L (Normal) Range: 3.5-5.1 NA 140 mmol/L (Normal) Range: 136-145 CA 8.7 mg/dL (Normal) Range: 8.5-10.1 BUN/CRE 39.5 {RATIO} (Abnormal) Range: 10-20 EST GFR - AA 75 mL/min (Normal) Comments: GFR Calc EST GFR 62 mL/min (Normal) Comments: Non- GFR Calc CREAT,SERUM 1.24 mg/dL (Normal) Range: 0.70-1.30 Comments: The validity of the calculated GFR AND GFRAA in patients over70 years has not been determined. Clinical correlation isessential. BUN 49 mg/dL (Abnormal) Range: 7-18 GLU 85 mg/dL (Normal) Range: 70-110 :10 Lipid Profile Comments: Order Date: 12/04/15Interface Comments: Reason:Order Date: 12/04/15[facility] [id number] [place], [place], [id number] VLDL Test not performed mg/dL (Normal) Range: 5-40 LDL Test not performed mg/dL (Normal) Range: 0-130 HDL 56 mg/dL (Normal) Comments: The drugs N-Acetylcysteine and Metamizole may falsely deressthis assay. Reference Range HDL <40 mg/dL Low HDL Cholesterol HDL >or= 60 mg/dL High HDL Cholesterol TRIG 417 mg/dL (Abnormal) Comments: The drugs N-Acetylcysteine and Metamizole may falsely deressthis assay.TRIGLYCERIDE IS GREATER THAN 400 mg/dL.LDL RESULT IS INVALID AND WILL NOT BE REPORTED.Serum Triglycerides Reference Interval Normal <150 mg/dL Borderline high 150 - 199 mg/dL High 200 - 499 mg/dL Very High > or = 500 mg/dL CHOL 269 mg/dL (Abnormal) Comments: <200 mg/dL Desirable 200-240 mg/dL Borderline >240 mg/dL High Risk :10 Liver Profile Comments: Order Date: 12/04/15Interface Comments: Reason:Order Date: 12/04/15[facility] Zcbmrkmjuu1348 ALYSA Maki, [id number] D BILI 0.11 mg/dL (Normal) Range: 0.00-0.30 T BILI 0.30 mg/dL (Normal) Range: 0.20-1.00 ALT 63 U/L (Normal) Range: 12-78 ALK P 64 U/L (Normal) Range: 50-136 AST 33 U/L (Normal) Range: 15-37 GLOB 3.2 g/dL (Normal) Range: 2.3-3.5 ALB 3.5 g/dL (Normal) Range: 3.4-5.0 T PROT 6.7 g/dL (Normal) Range: 6.4-8.2 :10 Magnesium Comments: Order Date: 12/04/15Inter Comments: Reason:Order Date: 12/04/15[facility] [address] [place], [phone] MG 2.1 mg/dL (Normal) Range: 1.8-2.4 :10 Prothrombin Time w/INR Comments: Order Date: 12/04/15Interface Comments: Reason:Order Date: 12/04/15[facility] Bonrzquywk3711 ALYSA Maki, [id number] INR 1.7 (Normal) PROTIME 19.3 s (Abnormal) Range: 11.7-14.9 :10 Thyroid Stim Hormone (TSH) Comments: Order Date: 12/04/15Interface Comments: Reason:Order Date: 12/04/15[facility] [address] [place], [address] TSH 1.65 {uIU/mL} (Normal) Range: 0.358-3.74 :41 MAGNESIUM ([id number]) Comments: PATIENT NOT FASTINGPERFORMED BY: [facility]kj[facility]f4607 [facility] [id number] Magnesium, Serum 2.1 mg/dL (Normal) Range: 1.6-2.3 Comments: Effective December 01, 2015 the reference interval for Magnesium, Serum will be changing to: 0 - 30 days 1.6 - 2.4 1 - 6 months 1.8 - 2.5 7 months - 1 year 1.7 - 2.4 2 - 5 years 1.6 - 2.3 6 - 17 years 1.7 - 2.3 >17 years 1.6 - 2.3 :41 Metabolic Panel, Basic Comments: PATIENT NOT FASTINGPERFORMED BY: [facility] Ratgwu9314 [facility] [id number] Information: [id number] ([id number]) Calcium, Serum 9.1 mg/dL (Normal) Range: 8.6-10.2 Carbon Dioxide, Total 24 mmol/L (Normal) Range: 18-29 Chloride, Serum 93 mmol/L (Abnormal) Range: 97-108 Potassium, Serum 4.8 mmol/L (Normal) Range: 3.5-5.2 Sodium, Serum 138 mmol/L (Normal) Range: 134-144 BUN/Creatinine Ratio 31 (Abnormal) Range: 10-22 eGFR If Africn Am 60 mL/min/1.73 (Normal) eGFR If NonAfricn Am 52 mL/min/1.73 (Abnormal) Creatinine, Serum 1.39 mg/dL (Abnormal) Range: 0.76-1.27 BUN 43 mg/dL (Abnormal) Range: 8-27 Glucose, Serum 105 mg/dL (Abnormal) Range: 65-99 :21 Blood Glucose , Office (79322) Blood Glucose , Office 99 (Normal) :21 HgA1C , Office (95910) HgA1C , Office 5.0 % (Normal) Range: 4.6 - 7.1 :49 RETICULOCYTE COUNT (28437) Comments: PATIENT NOT FASTINGPERFORMED BY: [facility]6370 [facility] [id number] Reticulocyte Count 2.4 % (Normal) Range: 0.6-2.6 :49 VITAMIN B-12 (CYANOCOBALAMIN) Comments: PATIENT NOT FASTINGPERFORMED BY: [facility] HospitalOmvzec0825 [facility] [id number] Information: [id number] ([id number]) Vitamin B12 560 pg/mL (Normal) Range: 211-946 :36 Bilirubin, Direct Comments: [facility] [address] [facility] [facility] [place], [address] D BILI 0.14 mg/dL (Normal) Range: 0.00-0.30 :36 CBC W/Diff, Automated Comments: [facility] [address] [facility] [address] [place], [place], [address](153) Absolute Lymph 1.26 {X10_3/ul} (Normal) Range: 0.83-4.51 Absolute Neut 3.3 {X10_3/uL} (Normal) Range: 2.0-7.7 IM GRAN % 0.600 % (Normal) Range: 0.0-0.9 Comments: IG% - Immature Granulocytes (promyelocytes, myelocytes andmetamyelocytes) > 1% indicates that a LEFT SHIFT is Present. BASO% 0.4 % (Normal) Range: 0-1 EO% 2.3 % (Normal) Range: 0-5 MONO% 7.6 % (Normal) Range: 0-10 LY% 24.7 % (Normal) Range: 19-41 NEUT% 64.4 % (Normal) Range: 47-70 MPV 9.0 fL (Normal) Range: 6.2-12.0 PLT 157 K/mm3 (Normal) Range: 150-450 RDW SD 49.5 fL (Abnormal) Range: 35.1-43.9 RDW CV 13.8 % (Normal) Range: 11.6-14.6 MCHC 34.2 {g/gl} (Normal) Range: 32-36 MCH 34.5 pg (Abnormal) Range: 27.0-32.0 MCV 100.7 fL (Abnormal) Range: 80-94 HCT 41.5 % (Normal) Range: 40-54 HGB 14.2 g/dL (Normal) Range: 13.0-16.5 RBC 4.12 {M/mm3} (Abnormal) Range: 4.6-6.2 WBC 5.1 K/mm3 (Normal) Range: 4.4-11.0 [id number] Comprehensive Metabolic Profil Comments: [facility] [address] [place], [place], [id number] GAP 6 (Normal) Range: 5-15 CO2 30.0 mmol/L (Normal) Range: 21.0-32.0 CL 104 mmol/L (Normal) Range: 98-107 K 4.1 mmol/L (Normal) Range: 3.5-5.1 NA 140 mmol/L (Normal) Range: 136-145 T BILI 0.40 mg/dL (Normal) Range: 0.20-1.00 ALT 53 U/L (Normal) Range: 12-78 ALK P 69 U/L (Normal) Range: 50-136 AST 33 U/L (Normal) Range: 15-37 CA 8.9 mg/dL (Normal) Range: 8.5-10.1 A/G 1.1 {RATIO} (Normal) Range: 0.9-2.4 GLOB 3.1 g/dL (Normal) Range: 2.3-3.5 ALB 3.4 g/dL (Normal) Range: 3.4-5.0 T PROT 6.5 g/dL (Normal) Range: 6.4-8.2 BUN/CRE 23.1 {RATIO} (Abnormal) Range: 10-20 EST GFR - AA 92 mL/min (Normal) Comments: GFR Calc EST GFR 76 mL/min (Normal) Comments: Non- GFR Calc CREAT,SERUM 1.04 mg/dL (Normal) Range: 0.70-1.30 Comments: The validity of the calculated GFR AND GFRAA in patients over70 years has not been determined. Clinical correlation isessential. BUN 24 mg/dL (Abnormal) Range: 7-18 GLU 110 mg/dL (Normal) Range: 70-110 Comments: Fasting Glucose result from 110 to <126 mg/dLsuggests IMPAIRED HOMEOSTASIS per A.D.A. criteria. :36 Lipid Profile Comments: [facility] [address] [place], [address] VLDL 62 mg/dL (Abnormal) Range: 5-40 LDL 118 mg/dL (Normal) Range: 0-130 HDL 63 mg/dL (Normal) Comments: The drugs N-Acetylcysteine and Metamizole may falsely deressthis assay. Reference Range HDL <40 mg/dL Low HDL Cholesterol HDL >or= 60 mg/dL High HDL Cholesterol TRIG 308 mg/dL (Abnormal) Comments: The drugs N-Acetylcysteine and Metamizole may falsely deressthis assay.Serum Triglycerides Reference Interval Normal <150 mg/dL Borderline high 150 - 199 mg/dL High 200 - 499 mg/dL Very High > or = 500 mg/dL CHOL 243 mg/dL (Abnormal) Comments: <200 mg/dL Desirable 200-240 mg/dL Borderline >240 mg/dL High Risk :36 Microalb:Creat Ratio,Random UR Comments: [facility] [address] [place], [address] MALB:CREAT 142.0 {mg/g_CRE} (Abnormal) MICROALBUMIN,UR 223.0 mg/L (Normal) UR CREAT 157.00 mg/dL (Normal) :36 Thyroid Stim Hormone (TSH) Comments: [facility] [address] [place], [place], [id number] TSH 1.17 {uIU/mL} (Normal) Range: 0.358-3.74 :36 Urinalysis, Complete Comments: How was Urine Obtained? [facility] [address] [place], [address] MUCUS, URINE 0 SEEN {/hpf} (Normal) BACTERIA 0 SEEN {/hpf} (Normal) SQUAM EPI 0-5 SEEN {/hpf} (Normal) Range: 0-5 RBC-UA 0 SEEN {/hpf} (Normal) Range: 0-5 WBC 0 SEEN {/hpf} (Normal) Range: 0-5 LEUK ESTERASE Negative /ul (Normal) OCCULT BLOOD-UR Negative /ul (Normal) NITRITE UR Negative (Normal) UROBILI Normal mg/dL (Normal) PROT DIPSTX 30 mg/dL (Abnormal) pH UR 5.0 (Normal) Range: 5.0 - 8.0 SP.GR. DIPSTX 1.020 (Normal) Range: 1.002-1.030 KETONE UR Negative mg/dL (Normal) BILIRUBIN URINE Negative mg/dL (Normal) GLUCOSE, UR Normal mg/dL (Normal) CLARITY Sl. Cloudy (Normal) COLOR Yellow (Normal) :36 Vitamin D,25 Hydroxy Comments: [facility] [address] [facility]. [place], [place], [id number] Vitamin D 25-OH 21.0 ng/mL (Normal) Comments: Vitamin D 25(OH) Status Range Deficiency <20 ng/mL (50nmol/L) Insuffciency 20 - 30 ng/mL (50 - 75 nmol/L) Sufficiency 30 - 100 ng/mL (75 - 250 nmol/L) Toxicity >100 ng/mL (>250 nmol/L) :29 HgA1C , Office (29419) HgA1C , Office 5.6 % (Normal) Range: 4.6 - 7.1 :29 Blood Glucose , Office (45621) Blood Glucose , Office 96 (Normal) :29 CBC W/Diff, Automated Comments: [facility] [address]rtxi[address] [facility]. [place], [place], [id number] Absolute Lymph 2.04 {X10_3/ul} (Normal) Range: 0.83-4.51 Absolute Neut 5.2 {X10_3/uL} (Normal) Range: 2.0-7.7 IM GRAN % 0.300 % (Normal) Range: 0.0-0.9 Comments: IG% - Immature Granulocytes (promyelocytes, myelocytes andmetamyelocytes) > 1% indicates that a LEFT SHIFT is Present. BASO% 0.3 % (Normal) Range: 0-1 EO% 0.4 % (Normal) Range: 0-5 MONO% 7.3 % (Normal) Range: 0-10 LY% 25.8 % (Normal) Range: 19-41 NEUT% 65.9 % (Normal) Range: 47-70 MPV 9.6 fL (Normal) Range: 6.2-12.0 PLT 152 K/mm3 (Normal) Range: 150-450 RDW SD 46.7 fL (Abnormal) Range: 35.1-43.9 RDW CV 12.8 % (Normal) Range: 11.6-14.6 MCHC 35.4 {g/gl} (Normal) Range: 32-36 MCH 35.2 pg (Abnormal) Range: 27.0-32.0 MCV 99.4 fL (Abnormal) Range: 80-94 HCT 49.1 % (Normal) Range: 40-54 HGB 17.4 g/dL (Abnormal) Range: 13.0-16.5 RBC 4.94 {M/mm3} (Normal) Range: 4.6-6.2 WBC 7.9 K/mm3 (Normal) Range: 4.4-11.0 [id number]:29 Comprehensive Metabolic Profil Comments: [facility] [address] [place], [place], [address] GAP 12 (Normal) Range: 5-15 CO2 25.0 mmol/L (Normal) Range: 21.0-32.0 CL 99 mmol/L (Normal) Range: 98-107 K 4.6 mmol/L (Normal) Range: 3.5-5.1 Comments: Moderate Hemolysis, Result may be falsely increased. NA 136 mmol/L (Normal) Range: 136-145 T BILI 0.60 mg/dL (Normal) Range: 0.20-1.00 ALT 118 U/L (Abnormal) Range: 12-78 ALK P 75 U/L (Normal) Range: 50-136 AST 109 U/L (Abnormal) Range: 15-37 Comments: Moderate Hemolysis, Result may be falsely increased. CA 8.6 mg/dL (Normal) Range: 8.5-10.1 A/G 1.0 {RATIO} (Normal) Range: 0.9-2.4 GLOB 3.6 g/dL (Abnormal) Range: 2.3-3.5 ALB 3.7 g/dL (Normal) Range: 3.4-5.0 T PROT 7.3 g/dL (Normal) Range: 6.4-8.2 BUN/CRE 42.0 {RATIO} (Abnormal) Range: 10-20 EST GFR - AA 57 mL/min (Abnormal) Comments: GFR Calc EST GFR 47 mL/min (Abnormal) Comments: Non- GFR Calc CREAT,SERUM 1.57 mg/dL (Abnormal) Range: 0.70-1.30 Comments: The validity of the calculated GFR AND GFRAA in patients over70 years has not been determined. Clinical correlation isessential. BUN 66 mg/dL (Abnormal) Range: 7-18 GLU 111 mg/dL (Abnormal) Range: 70-110 Comments: Fasting Glucose result from 110 to <126 mg/dLsuggests IMPAIRED HOMEOSTASIS per A.D.A. criteria. :16 Rapid Flu (28440 x 2) Influenza A Ag neg a and b (Normal) :13 Basic Metabolic Profile (BMP) Comments: [facility] [address] [place], [address] GAP 4 (Abnormal) Range: 5-15 CO2 33.0 mmol/L (Abnormal) Range: 21.0-32.0 CL 103 mmol/L (Normal) Range: 98-107 K 4.3 mmol/L (Normal) Range: 3.5-5.1 NA 140 mmol/L (Normal) Range: 136-145 CA 8.6 mg/dL (Normal) Range: 8.5-10.1 BUN/CRE 30.4 {RATIO} (Abnormal) Range: 10-20 EST GFR - AA 84 mL/min (Normal) Comments: GFR Calc EST GFR 70 mL/min (Normal) Comments: Non- GFR Calc CREAT,SERUM 1.12 mg/dL (Normal) Range: 0.70-1.30 Comments: The validity of the calculated GFR AND GFRAA in patients over70 years has not been determined. Clinical correlation isessential. BUN 34 mg/dL (Abnormal) Range: 7-18 GLU 90 mg/dL (Normal) Range: 70-110 :50 HgA1C , Office (16585) HgA1C , Office 5.2 % (Normal) Range: 4.6 - 7.1 :50 Blood Glucose , Office (34719) Blood Glucose , Office 111 (Normal) :48 Basic Metabolic Profile (BMP) Comments: [facility] [address] [place], [id number] GAP 7 (Normal) Range: 5-15 CO2 31.0 mmol/L (Normal) Range: 21.0-32.0 CL 106 mmol/L (Normal) Range: 98-107 K 4.5 mmol/L (Normal) Range: 3.5-5.1 NA 144 mmol/L (Normal) Range: 136-145 CA 9.4 mg/dL (Normal) Range: 8.5-10.1 BUN/CRE 23.4 {RATIO} (Abnormal) Range: 10-20 EST GFR - AA 98 mL/min (Normal) Comments: GFR Calc EST GFR 81 mL/min (Normal) Comments: Non- GFR Calc CREAT,SERUM 0.98 mg/dL (Normal) Range: 0.70-1.30 Comments: The validity of the calculated GFR AND GFRAA in patients over70 years has not been determined. Clinical correlation isessential. BUN 23 mg/dL (Abnormal) Range: 7-18 GLU 110 mg/dL (Normal) Range: 70-110 Comments: Fasting Glucose result from 110 to <126 mg/dLsuggests IMPAIRED HOMEOSTASIS per A.D.A. criteria. :48 T4 Total, Thyroxin Comments: [facility] [address] [place], [place], [id number] T4 THYROXIN 6.7 ug/dL (Normal) Range: 4.5-12.1 :48 Thyroid Stim Hormone (TSH) Comments: [facility] [address] [place], [id number] TSH 1.02 {uIU/mL} (Normal) Range: 0.358-3.74 :35 CBC W/Diff, Automated Comments: [facility] X[address]quh8[address] [facility]. [place], [place], [phone] Absolute Lymph 1.13 {X10_3/ul} (Normal) Range: 0.83-4.51 Absolute Neut 4.4 {X10_3/uL} (Normal) Range: 2.0-7.7 IM GRAN % 0.500 % (Normal) Range: 0.0-0.9 Comments: IG% - Immature Granulocytes (promyelocytes, myelocytes andmetamyelocytes) > 1% indicates that a LEFT SHIFT is Present. BASO% 0.3 % (Normal) Range: 0-1 EO% 2.5 % (Normal) Range: 0-5 MONO% 6.2 % (Normal) Range: 0-10 LY% 18.6 % (Abnormal) Range: 19-41 NEUT% 71.9 % (Abnormal) Range: 47-70 MPV 9.1 fL (Normal) Range: 6.2-12.0 PLT 185 K/mm3 (Normal) Range: 150-450 RDW SD 49.3 fL (Abnormal) Range: 35.1-43.9 RDW CV 13.6 % (Normal) Range: 11.6-14.6 MCHC 33.7 {g/gl} (Normal) Range: 32-36 MCH 34.1 pg (Abnormal) Range: 27.0-32.0 MCV 101.5 fL (Abnormal) Range: 80-94 HCT 41.6 % (Normal) Range: 40-54 HGB 14.0 g/dL (Normal) Range: 13.0-16.5 RBC 4.10 {M/mm3} (Abnormal) Range: 4.6-6.2 WBC 6.1 K/mm3 (Normal) Range: 4.4-11.0 :35 Comprehensive Metabolic Profil Comments: [facility] [address] [facility] [place], [address] GAP 5 (Normal) Range: 5-15 CO2 31.0 mmol/L (Normal) Range: 21.0-32.0 CL 108 mmol/L (Abnormal) Range: 98-107 K 4.6 mmol/L (Normal) Range: 3.5-5.1 NA 144 mmol/L (Normal) Range: 136-145 T BILI 0.40 mg/dL (Normal) Range: 0.20-1.00 ALT 56 U/L (Normal) Range: 12-78 ALK P 66 U/L (Normal) Range: 50-136 AST 28 U/L (Normal) Range: 15-37 CA 8.5 mg/dL (Normal) Range: 8.5-10.1 A/G 1.0 {RATIO} (Normal) Range: 0.9-2.4 GLOB 3.1 g/dL (Normal) Range: 2.3-3.5 ALB 3.1 g/dL (Abnormal) Range: 3.4-5.0 T PROT 6.2 g/dL (Abnormal) Range: 6.4-8.2 BUN/CRE 19.3 {RATIO} (Normal) Range: 10-20 EST GFR - AA 104 mL/min (Normal) Comments: GFR Calc EST GFR 86 mL/min (Normal) Comments: Non- GFR Calc CREAT,SERUM 0.94 mg/dL (Normal) Range: 0.70-1.30 Comments: The validity of the calculated GFR AND GFRAA in patients over70 years has not been determined. Clinical correlation isessential. BUN 18 mg/dL (Normal) Range: 7-18 GLU 96 mg/dL (Normal) Range: 70-110 :35 Lipid Profile Comments: [facility] [address] [place], [place], [id number] VLDL 44 mg/dL (Abnormal) Range: 5-40 LDL 86 mg/dL (Normal) Range: 0-130 HDL 55 mg/dL (Normal) Comments: Reference Range HDL <40 mg/dL Low HDL Cholesterol HDL >or= 60 mg/dL High HDL Cholesterol TRIG 222 mg/dL (Abnormal) Comments: Serum Triglycerides Reference Interval Normal <150 mg/dL Borderline high 150 - 199 mg/dL High 200 - 499 mg/dL Very High > or = 500 mg/dL CHOL 185 mg/dL (Normal) Comments: <200 mg/dL Desirable 200-240 mg/dL Borderline >240 mg/dL High Risk :35 Microalb:Creat Ratio,Random UR Comments: [facility] [address] [place], [address] MALB:CREAT 31.9 {mg/g_CRE} (Abnormal) MICROALBUMIN,UR 31.7 mg/L (Normal) UR CREAT 99.40 mg/dL (Normal) :35 Thyroid Stim Hormone (TSH) Comments: [facility] [address] [place], [id number] TSH 1.05 {uIU/mL} (Normal) Range: 0.358-3.74 :35 Urinalysis, Complete Comments: How was Urine Obtained? CLEAN [facility] [address] [facility] [place], [address] MUCUS, URINE 0 SEEN {/hpf} (Normal) BACTERIA 0 SEEN {/hpf} (Normal) SQUAM EPI 0-5 SEEN {/hpf} (Normal) Range: 0-5 RBC-UA 0 SEEN {/hpf} (Normal) Range: 0-5 WBC 0 SEEN {/hpf} (Normal) Range: 0-5 LEUK ESTERASE Negative /ul (Normal) OCCULT BLOOD-UR Negative /ul (Normal) NITRITE UR Negative (Normal) UROBILI Normal mg/dL (Normal) PROT DIPSTX Negative mg/dL (Normal) pH UR 6.5 (Normal) Range: 5.0 - 8.0 SP.GR. DIPSTX 1.010 (Normal) Range: 1.002-1.030 KETONE UR Negative mg/dL (Normal) BILIRUBIN URINE Negative mg/dL (Normal) GLUCOSE, UR Normal mg/dL (Normal) CLARITY Clear (Normal) COLOR Yellow (Normal) :48 HgA1C , Office (37936) HgA1C , Office 5.2 % (Normal) Range: 4.6 - 7.1 :48 Blood Glucose , Office (19168) Blood Glucose , Office 114 (Normal) [id number]:03 MRSA/SAID SCREEN Comments: [facility] [address] [facility] [address] [place], [id number] MRSA+SAID SCRN See Note (Normal) Comments: MRSA/SAID SCRNS. AUREUS S. aureus NegativeMRSA MRSA Negative :13 CBC W/Diff, Automated Comments: Test performed at:[facility] [address] [place] [address] Absolute Lymph 1.57 {X10_3/ul} (Normal) Range: 0.83-4.51 Absolute Neut 3.2 {X10_3/uL} (Normal) Range: 2.0-7.7 IM GRAN % 0.200 % (Normal) Range: 0.0-0.9 Comments: IG% - Immature Granulocytes (promyelocytes, myelocytes andmetamyelocytes) > 1% indicates that a LEFT SHIFT is Present. BASO% 0.6 % (Normal) Range: 0-1 EO% 2.7 % (Normal) Range: 0-5 MONO% 7.0 % (Normal) Range: 0-10 LY% 29.7 % (Normal) Range: 19-41 NEUT% 59.8 % (Normal) Range: 47-70 MPV 9.4 fL (Normal) Range: 6.2-12.0 PLT 156 K/mm3 (Normal) Range: 150-450 RDW SD 45.2 fL (Abnormal) Range: 35.1-43.9 RDW CV 13.0 % (Normal) Range: 11.6-14.6 MCHC 34.8 {g/gl} (Normal) Range: 32-36 MCH 33.8 pg (Abnormal) Range: 27.0-32.0 MCV 97.1 fL (Abnormal) Range: 80-94 HCT 43.1 % (Normal) Range: 40-54 HGB 15.0 g/dL (Normal) Range: 13.0-16.5 RBC 4.44 {M/mm3} (Abnormal) Range: 4.6-6.2 WBC 5.3 K/mm3 (Normal) Range: 4.4-11.0 :13 Comprehensive Metabolic Profil Comments: Test performed at:[facility] [address] [place] [address] GAP 4 (Abnormal) Range: 5-15 CO2 31.0 mmol/L (Normal) Range: 21.0-32.0 CL 103 mmol/L (Normal) Range: 98-107 K 4.4 mmol/L (Normal) Range: 3.5-5.1 NA 138 mmol/L (Normal) Range: 136-145 T BILI 0.40 mg/dL (Normal) Range: 0.20-1.00 ALT 30 U/L (Normal) Range: 12-78 ALK P 54 U/L (Normal) Range: 50-136 AST 25 U/L (Normal) Range: 15-37 CA 8.6 mg/dL (Normal) Range: 8.5-10.1 A/G 1.4 {RATIO} (Normal) Range: 0.9-2.4 GLOB 2.6 g/dL (Normal) Range: 2.3-3.5 ALB 3.6 g/dL (Normal) Range: 3.4-5.0 T PROT 6.2 g/dL (Abnormal) Range: 6.4-8.2 BUN/CRE 36.4 {RATIO} (Abnormal) Range: 10-20 EST GFR - AA 97 mL/min (Normal) EST GFR 80 mL/min (Normal) CREAT,SERUM 0.99 mg/dL (Normal) Range: 0.70-1.30 Comments: The validity of the calculated GFR AND GFRAA in patients over70 years has not been determined. Clinical correlation isessential. BUN 36 mg/dL (Abnormal) Range: 7-18 GLU 94 mg/dL (Normal) Range: 70-110 :13 Lipid Profile Comments: Test performed at:[facility] [address] [place] [address] VLDL 35 mg/dL (Normal) Range: 5-40 LDL 72 mg/dL (Normal) Range: 0-130 HDL 87 mg/dL (Normal) Comments: Reference Range HDL <40 mg/dL Low HDL Cholesterol HDL >or= 60 mg/dL High HDL Cholesterol TRIG 174 mg/dL (Normal) Comments: Serum Triglycerides Reference Interval Normal <150 mg/dL Borderline high 150 - 199 mg/dL High 200 - 499 mg/dL Very High > or = 500 mg/dL CHOL 194 mg/dL (Normal) Comments: <200 mg/dL Desirable 200-240 mg/dL Borderline >240 mg/dL High Risk :13 Microalb:Creat Ratio,Random UR Comments: Test performed at:[facility] [address] [place], [place] [id number] MALB:CREAT 5.0 {mg/g_CRE} (Normal) MICROALBUMIN,UR 5.2 mg/L (Normal) UR CREAT 89.50 mg/dL (Normal) :13 Thyroid Stim Hormone (TSH) Comments: Test performed at:[facility] [address] [place] [address] TSH 0.97 {uIU/mL} (Normal) Range: 0.358-3.74 :13 Urinalysis, Routine (Dipstick) Comments: How was Urine Obtained? CLEAN CATCHTest performed at:[facility] [address] [facility] [place] [address] LEUK ESTERASE Negative /ul (Normal) OCCULT BLOOD-UR Negative /ul (Normal) NITRITE UR Negative (Normal) UROBILI Normal mg/dL (Normal) PROT DIPSTX Negative mg/dL (Normal) pH UR 6.0 (Normal) Range: 5.0 - 8.0 SP.GR. DIPSTX 1.015 (Normal) Range: 1.002-1.030 KETONE UR Negative mg/dL (Normal) BILIRUBIN URINE Negative mg/dL (Normal) GLUCOSE, UR Normal mg/dL (Normal) CLARITY Clear (Normal) COLOR Yellow (Normal) :35 HgA1C , Office (96036) HgA1C , Office 5.7 % (Normal) Range: 4.6 - 7.1 :35 Blood Glucose , Office (63458) Blood Glucose , Office 111 (Normal) :40 Miscellaneous Lab Procedure Comments: Comments: DRUG SCREEN [id number]([id number]) Ordered: DRUG SCREEN [id number] performed at:[facility] [address] [place] [address] ; [facility] [place]: [id number] 6+OXYCODONE-BUND (ng/mL)DRUG RESULT SCREEN CUTOFF____ Amphetamines NEGAT LAB (Normal) BARI ng/mL 1000Barbiturates NEGATIVE ng/mL 200Benzodiazepines NEGATIVE ng/mL 200Cannabinoid NEGATIVE ng/mL 20Cocaine (Metab) NEG TEST ATIVE ng/mL 300Opiates NEGATIVE ng/mL 300 Opiates test includes Codeine, Morphine, Hydromorphone, Hydrocodone.Oxycodone/Oxymorphone,Urine NEGATIVE ng/mL 300 Test includes Oxydodone and Oxymorphone. [facility]. ORIGINAL REPORT ON FILE IN LAB CONTAINS ADDITIONAL TEST SITE INFORMATIO N. [id number] Urine Drug Screen (VISTA) Comments: Comments: DRUG SCREEN [id number] of Drugs Taken or Suspected? .Test performed at:[facility] [id number] [facility]. [place], [place] [id number] THC NEGATIVE (Normal) PCP NEGATIVE (Normal) OPIATES POSITIVE (Abnormal) METHADONE NEGATIVE (Normal) ECSTACY NEGATIVE (Normal) COCAINE NEGATIVE (Normal) BENZODIAZIPINE NEGATIVE (Normal) BARBITIURATES NEGATIVE (Normal) AMPHETAMINES NEGATIVE (Normal) VISTA UDS PH 5 (Normal) TO BE CONFIRMED (Normal) Comments: CONFIRMATORY TESTING FOR ALL POSITIVE URINE DRUG SCREENRESULTS WILL ONLY BE SENT OUT UPON PHYSICIAN ORDER.VISTA Urine Drug Screen methods provide only preliminaryanalytical test results. A more specific alternate chemicalmethod must be used in order to obtain a confirmedanalytical result. Gas chromatography/mass spectrometery(GC/MS) is the preferred confirmatory method. Clinicalconsideration and profe ssional judgement should be appliedto any drug of abuse test result, particularly whenpreliminary positive results are used.URINE TCA TESTING MUST BE ORDERED SEPARATELY. USE TESTMNEMONIC: UTCA :25 Vitamin D,25 Hydroxy Comments: Has pt arrived? YTest performed at:[facility] [id number] [place] [address] Vitamin D 25-OH 38.2 ng/mL (Normal) Comments: Vitamin D 25(OH) Status Range Deficiency <20 ng/mL (50nmol/L) Insuffciency 20 - 30 ng/mL (50 - 75 nmol/L) Sufficiency 30 - 100 ng/mL (75 - 250 nmol/L) Toxicity >100 ng/mL (>250 nmol/L) :24 Urinalysis, Routine (Dipstick) Comments: Has pt arrived? YHow was Urine Obtained? CLEAN CATCHTest performed at:[facility] [id number] [place] [address] LEUK ESTERASE Negative /ul (Normal) OCCULT BLOOD-UR Negative /ul (Normal) NITRITE UR Negative (Normal) UROBILI Normal mg/dL (Normal) PROT DIPSTX Negative mg/dL (Normal) pH UR 5.0 (Normal) Range: 5.0 - 8.0 SP.GR. DIPSTX 1.020 (Normal) Range: 1.002-1.030 KETONE UR Negative mg/dL (Normal) BILIRUBIN URINE Negative mg/dL (Normal) GLUCOSE, UR Normal mg/dL (Normal) CLARITY Sl. Cloudy (Normal) COLOR Yellow (Normal) :23 Comprehensive Metabolic Profil Comments: Has pt arrived? YHas pt arrived? YTest performed at:[facility] [id number] [place] [address] GAP 5 (Normal) Range: 5-15 CO2 29.0 mmol/L (Normal) Range: 21.0-32.0 CL 101 mmol/L (Normal) Range: 98-107 K 4.5 mmol/L (Normal) Range: 3.5-5.1 NA 135 mmol/L (Abnormal) Range: 136-145 T BILI 0.40 mg/dL (Normal) Range: 0.00-4.00 ALT 45 U/L (Normal) Range: 12-78 ALK P 47 U/L (Abnormal) Range: 50-136 AST 50 U/L (Abnormal) Range: 15-37 CA 8.5 mg/dL (Normal) Range: 8.5-10.1 A/G 1.1 {RATIO} (Normal) Range: 0.9-2.4 GLOB 3.0 g/dL (Normal) Range: 2.7-4.2 ALB 3.3 g/dL (Abnormal) Range: 3.4-5.0 T PROT 6.3 g/dL (Abnormal) Range: 6.4-8.2 BUN/CRE 33.3 {RATIO} (Abnormal) Range: 10-20 EST GFR - AA 109 mL/min (Normal) EST GFR 90 mL/min (Normal) CREAT,SERUM 0.9 mg/dL (Normal) Range: 0.8-1.3 BUN 30 mg/dL (Abnormal) Range: 7-18 GLU 83 mg/dL (Normal) Range: 70-110 :23 Lipid Profile Comments: Has pt arrived? YHas pt arrived? YTest performed at:[facility] [address] [place] [address] VLDL 12 mg/dL (Normal) Range: 5-40 LDL 75 mg/dL (Normal) Range: 0-130 HDL 62 mg/dL (Normal) Comments: Reference Range HDL <40 mg/dL Low HDL Cholesterol HDL >or= 60 mg/dL High HDL Cholesterol TRIG 62 mg/dL (Normal) Range: 0-199 Comments: Serum Triglycerides Reference Interval Normal <150 mg/dL Borderline high 150 - 199 mg/dL High 200 - 499 mg/dL Very High > or = 500 mg/dL CHOL 149 mg/dL (Normal) Comments: <200 mg/dL Desirable 200-240 mg/dL Borderline >240 mg/dL High Risk :23 Microalb:Creat Ratio,Random UR Comments: Has pt arrived? YTest performed at:[facility] [address] [facility] [place] [address] MALB:CREAT 4.2 {mg/g_CRE} (Normal) MICROALBUMIN,UR 5.6 mg/L (Normal) UR CREAT 131.9 mg/dL (Normal) :23 Thyroid Stim Hormone (TSH) Comments: Has pt arrived? YHas pt arrived? YTest performed at:[facility] [address] [facility] [place] [address] TSH 1.09 {uIU/mL} (Normal) Range: 0.358-3.74 :22 CBC W/Diff, Automated Comments: Has pt arrived? YTest performed at:[facility] [address] [place], [place] [address] Absolute Lymph 1.37 {X10_3/ul} (Normal) Range: 0.83-4.51 Absolute Neut 1.9 {X10_3/uL} (Abnormal) Range: 2.0-7.7 IM GRAN % 0.000 % (Normal) Range: 0.0-0.9 Comments: IG% - Immature Granulocytes (promyelocytes, myelocytes andmetamyelocytes) > 1% indicates that a LEFT SHIFT is Present. BASO% 0.8 % (Normal) Range: 0-1 EO% 2.5 % (Normal) Range: 0-5 MONO% 7.0 % (Normal) Range: 0-10 LY% 38.2 % (Normal) Range: 19-41 NEUT% 51.5 % (Normal) Range: 47-70 MPV 9.4 fL (Normal) Range: 6.2-12.0 PLT 168 K/mm3 (Normal) Range: 150-450 RDW SD 49.6 fL (Abnormal) Range: 35.1-43.9 RDW CV 13.9 % (Normal) Range: 11.6-14.6 MCHC 32.9 {g/gl} (Normal) Range: 32-36 MCH 32.0 pg (Normal) Range: 27.0-32.0 MCV 97.2 fL (Abnormal) Range: 80-94 HCT 38.0 % (Abnormal) Range: 40-54 HGB 12.5 g/dL (Abnormal) Range: 13.0-16.5 RBC 3.91 {M/mm3} (Abnormal) Range: 4.6-6.2 WBC 3.6 K/mm3 (Abnormal) Range: 4.4-11.0 :54 HgA1C , Office (47909) HgA1C , Office 5.8 % (Normal) Range: 4.6 - 7.1 :02 Basic Metabolic Profile (BMP) Comments: ADDED BMPTest performed at:[facility] [address] [place], [place] [address] GAP 6 (Normal) Range: 5-15 CO2 27.0 mmol/L (Normal) Range: 21.0-32.0 CL 104 mmol/L (Normal) Range: 98-107 K 4.7 mmol/L (Normal) Range: 3.5-5.1 NA 137 mmol/L (Normal) Range: 136-145 CA 9.0 mg/dL (Normal) Range: 8.5-10.1 BUN/CRE 22.7 {RATIO} (Abnormal) Range: 10-20 EST GFR - AA 86 mL/min (Normal) EST GFR 71 mL/min (Normal) CREAT,SERUM 1.1 mg/dL (Normal) Range: 0.8-1.3 BUN 25 mg/dL (Abnormal) Range: 7-18 GLU 89 mg/dL (Normal) Range: 70-110 :02 Lipid Profile Comments: Test performed at:[facility] [address] [place] [address] VLDL 96 mg/dL (Abnormal) Range: 5-40 LDL Test not performed mg/dL (Normal) Range: 0-130 HDL 44 mg/dL (Normal) Comments: Reference Range HDL <40 mg/dL Low HDL Cholesterol HDL >or= 60 mg/dL High HDL Cholesterol TRIG 482 mg/dL (Abnormal) Range: 0-199 Comments: TRIGLYCERIDE IS GREATER THAN 400 mg/dL.LDL RESULT IS INVALID AND WILL NOT BE REPORTED.Serum Triglycerides Reference Interval Normal <150 mg/dL Bord elen high 150 - 199 mg/dL High 200 - 499 mg/dL Very High > or = 500 mg/dL CHOL 213 mg/dL (Abnormal) Comments: <200 mg/dL Desirable 200-240 mg/dL Borderline >240 mg/dL High Risk :02 Liver Profile Comments: Test performed at:[facility] [address] [place] [address] D BILI 0.10 mg/dL (Normal) Range: 0.00-0.30 T BILI 0.50 mg/dL (Normal) Range: 0.00-4.00 ALT 39 U/L (Normal) Range: 12-78 ALK P 70 U/L (Normal) Range: 50-136 AST 26 U/L (Normal) Range: 15-37 GLOB 3.6 g/dL (Normal) Range: 2.7-4.2 ALB 3.6 g/dL (Normal) Range: 3.4-5.0 T PROT 7.2 g/dL (Normal) Range: 6.4-8.2 :46 CBCD ALC 2.34 {X10_3/ul} (Normal) Range: 0.83-4.51 ANC 3.6 {X10_3/uL} (Normal) Range: 2.0-7.7 IG% 0.300 % (Normal) Range: 0.0-0.9 Comments: IG% - Immature Granulocytes (promyelocytes, myelocytes andmetamyelocytes) > 1% indicates that a LEFT SHIFT is Present. B% 0.6 % (Normal) Range: 0-1 E% 4.0 % (Normal) Range: 0-5 M% 7.9 % (Normal) Range: 0-10 L% 34.3 % (Normal) Range: 19-41 N% 52.9 % (Normal) Range: 47-70 MPV 10.1 fL (Normal) Range: 6.2-12.0 PLT 138 K/mm3 (Abnormal) Range: 150-450 RDWSD 46.5 fL (Abnormal) Range: 35.1-43.9 RDWCV 13.6 % (Normal) Range: 11.6-14.6 MCHC 33.6 {g/gl} (Normal) Range: 32-36 MCH 31.8 pg (Normal) Range: 27.0-32.0 MCV 94.5 fL (Abnormal) Range: 80-94 HCT 46.4 % (Normal) Range: 40-54 HGB 15.6 g/dL (Normal) Range: 13.0-16.5 RBC 4.91 {M/mm3} (Normal) Range: 4.6-6.2 WBC 6.8 K/mm3 (Normal) Range: 4.4-11.0 :44 CMP GAP 4 (Abnormal) Range: 5-15 CO2 30.0 mmol/L (Normal) Range: 21.0-32.0 CL 106 mmol/L (Normal) Range: 98-107 K 4.9 mmol/L (Normal) Range: 3.5-5.1 NA 140 mmol/L (Normal) Range: 136-145 BIT 0.40 mg/dL (Normal) Range: 0.00-4.00 ALT 35 U/L (Normal) Range: 12-78 ALK 67 U/L (Normal) Range: 50-136 AST 20 U/L (Normal) Range: 15-37 CA 9.3 mg/dL (Normal) Range: 8.5-10.1 AG 1.1 {RATIO} (Normal) Range: 0.9-2.4 GLOB 3.3 g/dL (Normal) Range: 2.7-4.2 ALB 3.5 g/dL (Normal) Range: 3.4-5.0 TPROT 6.8 g/dL (Normal) Range: 6.4-8.2 BC 20.9 {RATIO} (Abnormal) Range: 10-20 GFRAA 86 mL/min (Normal) GFR 71 mL/min (Normal) CREAT 1.1 mg/dL (Normal) Range: 0.8-1.3 BUN 23 mg/dL (Abnormal) Range: 7-18 GLU 94 mg/dL (Normal) Range: 70-110 :44 MIACRE tMICROCREAT 4.5 {mg/g_CRE} (Normal) MIALB 7.0 mg/L (Normal) CREU 152.8 mg/dL (Normal) :44 PSA 0.88 ng/mL (Normal) Range: 0.00-4.00 Comments: This test was performed using the TPSA assay method for the[facility] chemistry system. Values obtained with differentassay methods cannot be used interchangably.When changing PSA assays in the course of monitoring apatient, additional sequential testing should be carriedout to confirm baseline values. :44 UAC Comments: How was Urine Obtained? Urine, Random UMUC 1+ {/hpf} (Normal) UBAC 0 SEEN {/hpf} (Normal) UEPIS 0-5 SEEN {/hpf} (Normal) Range: 0-5 URBC 0 SEEN {/hpf} (Normal) Range: 0-5 UWBC 0-5 SEEN {/hpf} (Normal) Range: 0-5 JOSE MANUEL Negative /ul (Normal) UOB Negative /ul (Normal) KIMMIE Negative (Normal) UROBU Normal mg/dL (Normal) uPROTU Negative mg/dL (Normal) AAMIR 5.0 (Normal) Range: 5.0 - 8.0 SGU 1.025 (Normal) Range: 1.002-1.030 KETU Negative mg/dL (Normal) BILIU Negative mg/dL (Normal) GLUR Normal mg/dL (Normal) UCLAR Clear (Normal) UCOL Yellow (Normal) :25 HgA1C , Office (49362) HgA1C , Office 5.8 % (Normal) Range: 4.6 - 7.1 :10 Blood Glucose , Office (09314) Blood Glucose , Office 83 (Normal) :10 HgA1C , Office (65316) HgA1C , Office 5.7 % (Normal) Range: 4.6 - 7.1 :52 CBCD,SMEAR DIFF RED CELL MORPH SeeNote {NORMAL} (Normal) Comments: Result: NORM C+C PLT EST SeeNote (Normal) Comments: Result: ADEQUATE EOS 1 % (Normal) Range: 0-5 Comments: AMENDED REPORT 03/20/11 1016 EOS previously reported as: 4 % MONOCYTE 5 % (Normal) Range: 0-10 Comments: AMENDED REPORT 03/20/11 1016 MONOCYTE previously reported as: 3 % LYMPH 26 % (Normal) Range: 19-41 Comments: AMENDED REPORT 03/20/11 1015 LYMPH previously reported as: 49 H % BAND 3 % (Normal) Range: 0-5 SEGS 65 % (Normal) Range: 47-70 Comments: AMENDED REPORT 03/20/11 1015 SEGS previously reported as: 43 L % CELLS COUNTED 100 (Normal) ABSOLUTE NEUT 4.1 3/uL (Normal) Range: 2.0-7.7 PLT 192 K/mm3 (Normal) Range: 150-450 RDW 13.2 % (Normal) Range: 11.6-14.6 MCHC 34.9 g/dL (Normal) Range: 32-36 MCH 32.5 pg (Abnormal) Range: 27.0-32.0 MCV 93.1 fL (Normal) Range: 80-94 HCT 44.6 % (Normal) Range: 40-54 HGB 15.6 g/dL (Normal) Range: 14.0-18.0 RBC 4.79 {M/mm3} (Normal) Range: 4.6-6.2 WBC 6.0 K/mm3 (Normal) Range: 4.4-11.0 BASOPHIL 1 % (Normal) Range: 0-1 :52 COMP METABOLIC Comments: appt 05/2011 GAP 7 (Normal) Range: 5-15 CO2 27.0 mmol/L (Normal) Range: 21.0-32.0 CL 105 mmol/L (Normal) Range: 98-107 K 4.5 mmol/L (Normal) Range: 3.5-5.1 NA 139 mmol/L (Normal) Range: 136-145 T BILI 0.30 mg/dL (Normal) Range: 0.00-1.00 ALT 43 U/L (Normal) Range: 12-78 ALK P 49 U/L (Abnormal) Range: 50-136 AST 30 U/L (Normal) Range: 15-37 CA 8.6 mg/dL (Normal) Range: 8.5-10.1 A/G 1.1 {RATIO} (Normal) Range: 0.9-2.4 GLOB 3.4 g/dL (Normal) Range: 2.7-4.2 ALB 3.7 g/dL (Normal) Range: 3.4-5.0 T PROT 7.1 g/dL (Normal) Range: 6.4-8.2 BUN/CRE 22.3 {RATIO} (Abnormal) Range: 10-20 EST GFR - AA 72 mL/min (Normal) EST GFR 59 mL/min (Abnormal) CREAT,SERUM 1.3 mg/dL (Normal) Range: 0.8-1.3 BUN 29 mg/dL (Abnormal) Range: 7-18 GLU 104 mg/dL (Normal) Range: 70-110 :52 COMPLETE UA MUCUS, URINE 0 SEEN {/hpf} (Normal) BACTERIA 0 SEEN {/hpf} (Normal) SQUAM EPI SeeNote {/hpf} (Normal) Range: 0-5 Comments: Result: 0-5 SEEN RBC-UA 0 SEEN {/hpf} (Normal) Range: 0-5 WBC 0 SEEN {/hpf} (Normal) Range: 0-5 LEUK ESTERASE SeeNote (Normal) Comments: Result: NEGATIVE OCCULT BLOOD-UR SeeNote (Normal) Comments: Result: NEGATIVE NITRITE UR SeeNote (Normal) Comments: Result: NEGATIVE UROBILI 0.2 EU/dl (Normal) Range: 0.2 - 1.0 PROT DIPSTX SeeNote (Normal) Comments: Result: NEGATIVE pH UR 5.5 (Normal) Range: 5.0-8.0 SP.GR. DIPSTX >=1.030 (Normal) Range: 1.002-1.030 KETONE UR SeeNote mg/dL (Normal) Comments: Result: NEGATIVE BILIRUBIN URINE SeeNote (Normal) Comments: Result: NEGATIVE GLUCOSE, UR SeeNote (Normal) Comments: Result: NEGATIVE CLARITY CLEAR (Normal) COLOR YELLOW (Normal) :52 LIPID LDL 70 mg/dL (Normal) Range: 0-130 VLDL 31 mg/dL (Normal) Range: 5-40 HDL 41 mg/dL (Normal) Comments: Reference Range HDL <40 mg/dL Low HDL Cholesterol HDL >or= 60 mg/dL High HDL Cholesterol CHOL 142 mg/dL (Normal) Comments: <200 mg/dL Desirable 200-240 mg/dL Borderline >240 mg/dL High Risk TRIG 154 mg/dL (Normal) Comments: Serum Triglycerides Reference Interval Normal <150 mg/dL Borderline high 150 - 199 mg/dL High 200 - 499 mg/dL Very High > or = 500 mg/dL :52 PSA, SCREEN 0.6 ng/mL (Normal) Range: 0.0-4.0 :52 TSH 0.70 {uIU/mL} (Normal) Range: 0.358-3.74 :41 CHEST, PA AND LATERAL Radiology Report See Note (Normal) Comments: CLINICAL:Male, 59 years old. Bacterial pneumonia follow up. No complaints.Today X-RAY EXAMINATION - CHEST TECHNIQUE:PA and lateral views of the chest. COMPARISON:March 31, 2004 FINDIN GS: The lung s are expanded. There is mild prominence of lung markingsdiffusely compatible with mild chronic change. No acute infiltrate orareaof consolidation is identified.There is no demonstrated pleural abnorm ality. There is borderline cardiomegaly. Sternal cerclage wires and vascularclips are present from a prior sternotomy and coronary artery bypassgraftprocedure (CABG). Normal mediastinum and laxmi. Lindsay l visualized pulmonary arteries. There is atheroscleroticcalcification of the aortic arch.There are diffuse degenerative changes of the visualized thoracic spine. IMPRESSION:Mild chronic changes. No a cute pulmonary abnormality is identified. Dictated on 08/12/10 1324 by JESS HENDRICKS MDTranscribed on 08/13/10 1142 by ITS IMPORTSign by JESS HENDRICKS MD on 08/13/10 1143 Sign by: JESS HENDRICKS MD [id number] COMPLETE UA BACTERIA 0 SEEN {/hpf} (Normal) MUCUS, URINE 0 SEEN {/hpf} (Normal) SQUAM EPI SeeNote {/hpf} (Normal) Range: 0-5 Comments: Result: 0-5 SEEN LEUK ESTERASE SeeNote (Normal) Comments: Result: NEGATIVE RBC-UA 0 SEEN {/hpf} (Normal) Range: 0-5 WBC 0 SEEN {/hpf} (Normal) Range: 0-5 NITRITE UR SeeNote (Normal) Comments: Result: NEGATIVE OCCULT BLOOD-UR SeeNote (Normal) Comments: Result: NEGATIVE PROT DIPSTX SeeNote (Normal) Comments: Result: NEGATIVE UROBILI 0.2 EU/dl (Normal) Range: 0.2 - 1.0 KETONE UR SeeNote mg/dL (Normal) Comments: Result: NEGATIVE pH UR 5.5 (Normal) Range: 5.0-8.0 SP.GR. DIPSTX >=1.030 (Normal) Range: 1.002-1.030 BILIRUBIN URINE SeeNote (Normal) Comments: Result: NEGATIVE GLUCOSE, UR SeeNote (Normal) Comments: Result: NEGATIVE CLARITY CLEAR (Normal) COLOR YELLOW (Normal) :13 D-DIMER QUANT <200 ng/mL (Normal) Comments: NORMAL D-Dimer level indicates no DVT or PE. :00 CBCD,SMEAR DIFF RED CELL MORPH SeeNote {NORMAL} Comments: Result: NORM C+C (Normal) EOS 1 % (Normal) Range: 0-5 LYMPH 26 % (Normal) Range: 19-41 MONOCYTE 11 % (Abnormal) Range: 0-10 PLT EST SeeNote (Normal) Comments: Result: ADEQUATE CELLS COUNTED 100 (Normal) SEGS 62 % (Normal) Range: 47-70 ABSOLUTE NEUT 4.7 3/uL (Normal) Range: 2.0-7.7 PLT 219 K/mm3 (Normal) Range: 150-450 MCH 33.2 pg (Abnormal) Range: 27.0-32.0 MCHC 34.7 g/dL (Normal) Range: 32-36 MCV 95.6 fL (Abnormal) Range: 80-94 RDW 14.0 % (Normal) Range: 11.6-14.6 HCT 41.1 % (Normal) Range: 40-54 HGB 14.3 g/dL (Normal) Range: 14.0-18.0 RBC 4.30 {M/mm3} (Abnormal) Range: 4.6-6.2 WBC 6.6 K/mm3 (Normal) Range: 4.4-11.0 :52 TSH 0.82 {uIU/mL} (Normal) Comments: Please Note: TROPONIN REFERENCE RANGE CHANGEEffective MARCH 11, 2009. Range: 0.358-3.74 :52 TROPONIN-I < 0.02 ng/mL (Normal) Comments: Please Note: TROPONIN REFERENCE RANGE CHANGEEffective MARCH 11, 2009. Comments: TROPONIN-I EXPECTED VALUES <0.05 NEGATIVE 0.06 - 0.59 AT RISK OF NC > OR = 0.60 SUGGEST NC :52 COMP METABOLIC Comments: Please Note: TROPONIN REFERENCE RANGE CHANGEEffective MARCH 11, 2009. CO2 26.0 mmol/L (Normal) Range: 21.0-32.0 GAP 11 (Normal) Range: 5-15 CL 104 mmol/L (Normal) Range: 98-107 K 4.6 mmol/L (Normal) Range: 3.5-5.1 NA 141 mmol/L (Normal) Range: 136-145 ALT 30 U/L (Normal) Range: 12-78 T BILI 0.30 mg/dL (Normal) Range: 0.00-1.00 ALK P 42 U/L (Abnormal) Range: 50-136 AST 16 U/L (Normal) Range: 15-37 A/G 1.4 {RATIO} (Normal) Range: 0.9-2.4 ALB 3.8 g/dL (Normal) Range: 3.4-5.0 CA 9.4 mg/dL (Normal) Range: 8.5-10.1 GLOB 2.8 g/dL (Normal) Range: 2.7-4.2 BUN/CRE 23.1 {RATIO} (Abnormal) Range: 10-20 EST GFR - AA 73 mL/min (Normal) T PROT 6.6 g/dL (Normal) Range: 6.4-8.2 EST GFR 60 mL/min (Normal) BUN 30 mg/dL (Abnormal) Range: 7-18 CREAT,SERUM 1.3 mg/dL (Normal) Range: 0.8-1.3 GLU 94 mg/dL (Normal) Range: 70-110 [id number] COMP METABOLIC GAP 10 (Normal) Range: 5-15 CL 105 mmol/L (Normal) Range: 98-107 CO2 26.0 mmol/L (Normal) Range: 21.0-32.0 K 4.8 mmol/L (Normal) Range: 3.5-5.1 NA 141 mmol/L (Normal) Range: 136-145 T BILI 0.50 mg/dL (Normal) Range: 0.00-1.00 ALT 30 U/L (Normal) Range: 12-78 ALK P 35 U/L (Abnormal) Range: 50-136 AST 23 U/L (Normal) Range: 15-37 A/G 1.2 {RATIO} (Normal) Range: 0.9-2.4 CA 9.3 mg/dL (Normal) Range: 8.5-10.1 ALB 3.5 g/dL (Normal) Range: 3.4-5.0 GLOB 2.9 g/dL (Normal) Range: 2.7-4.2 T PROT 6.4 g/dL (Normal) Range: 6.4-8.2 BUN/CRE 18.5 {RATIO} (Normal) Range: 10-20 EST GFR 60 mL/min (Normal) EST GFR - AA 73 mL/min (Normal) CREAT,SERUM 1.3 mg/dL (Normal) Range: 0.8-1.3 BUN 24 mg/dL (Abnormal) Range: 7-18 GLU 98 mg/dL (Normal) Range: 70-110 [id number] LIPID Comments: appt 07/24/10 VLDL 33 mg/dL (Normal) Range: 5-40 HDL 46 mg/dL (Normal) Comments: Reference Range HDL <40 mg/dL Low HDL Cholesterol HDL >or= 60 mg/dL High HDL Cholesterol LDL 64 mg/dL (Normal) Range: 0-130 TRIG 165 mg/dL (Normal) Comments: Serum Triglycerides Reference Interval Normal <150 mg/dL Borderline high 150 - 199 mg/dL High 200 - 499 mg/dL Very High > or = 500 mg/dL CHOL 143 mg/dL (Normal) Comments: <200 mg/dL Desirable 200-240 mg/dL Borderline >240 mg/dL High Risk [id number] KIDNEY Radiology Report See Note (Normal) Comments: CLINICAL:This is a 59-year-old male patient with history of pyelonephritis. RENAL ULTRASOUND TECHNIQUE:The kidneys and bladder were evaluated at real-time sonographically withstatic aguirre scale images ob tained for image documentation. COMPARISON:None. FINDINGS:Normal location of the right kidney. Normal length of the right kidney.The right kidney measures 11.7 cm. There is no focal parenchymalthinni ngof the right kidney. There is no right renal mass or cyst. There arenoright renal calculi. There is no right hydronephrosis. There is no dilatation of the visualized distal right ureter. There is nodemonstrated right ureteral calculus. Normal location of the left kidney. Normal length of the left kidney.Theleft kidney measures 12.7 cm. There is no focal parenchymal thinningofthe left kidney. There is no left renal mass or cyst. There are noleftrenal calculi. There is no left hydronephrosis. There is no dilatation of the visualized distal left ureter. There is nodemonstrated left urete ral calculus. There is a minimally distended urinary bladder. The visualized aorta and IVC are unremarkable. IMPRESSION:Normal ultrasound examination of the bilateral kidneys. Dictated on 05/15/10 44 by Moshe Manuelranscribed on 05/16/10 0731 by ITS IMPORTSign by Osvaldo Manuel on 05/16/1032 Sign by: Osvaldo Manuel :23 CBCD,SMEAR DIFF RED CELL MORPH SeeNote {NORMAL} (Normal) Comments: Result: NORM C+C EOS 3 % (Normal) Range: 0-5 PLT EST SeeNote (Normal) Comments: Result: ADEQUATE LYMPH 33 % (Normal) Range: 19-41 MONOCYTE 6 % (Normal) Range: 0-10 BAND 1 % (Normal) Range: 0-5 SEGS 57 % (Normal) Range: 47-70 ABSOLUTE NEUT 2.4 3/uL (Normal) Range: 2.0-7.7 CELLS COUNTED 100 (Normal) PLT 177 K/mm3 (Normal) Range: 150-450 RDW 13.8 % (Normal) Range: 11.6-14.6 MCH 33.2 pg (Abnormal) Range: 27.0-32.0 MCHC 34.8 g/dL (Normal) Range: 32-36 MCV 95.6 fL (Abnormal) Range: 80-94 HCT 40.8 % (Normal) Range: 40-54 HGB 14.2 g/dL (Normal) Range: 14.0-18.0 RBC 4.27 {M/mm3} (Abnormal) Range: 4.6-6.2 WBC 4.5 K/mm3 (Normal) Range: 4.4-11.0 :23 COMP METABOLIC CL 105 mmol/L (Normal) Range: 98-107 CO2 28.0 mmol/L (Normal) Range: 21.0-32.0 GAP 9 (Normal) Range: 5-15 K 4.1 mmol/L (Normal) Range: 3.5-5.1 NA 142 mmol/L (Normal) Range: 136-145 T BILI 0.40 mg/dL (Normal) Range: 0.00-1.00 ALT 32 U/L (Normal) Range: 12-78 ALK P 42 U/L (Abnormal) Range: 50-136 AST 23 U/L (Normal) Range: 15-37 CA 8.6 mg/dL (Normal) Range: 8.5-10.1 A/G 1.1 {RATIO} (Normal) Range: 0.9-2.4 ALB 3.6 g/dL (Normal) Range: 3.4-5.0 GLOB 3.2 g/dL (Normal) Range: 2.7-4.2 BUN/CRE 18.3 {RATIO} (Normal) Range: 10-20 T PROT 6.8 g/dL (Normal) Range: 6.4-8.2 EST GFR - AA 79 mL/min (Normal) CREAT,SERUM 1.2 mg/dL (Normal) Range: 0.8-1.3 EST GFR 65 mL/min (Normal) BUN 22 mg/dL (Abnormal) Range: 7-18 GLU 89 mg/dL (Normal) Range: 70-110 :23 COMPLETE UA BACTERIA 0 SEEN {/hpf} (Normal) MUCUS, URINE 0 SEEN {/hpf} (Normal) RBC-UA 0 SEEN {/hpf} (Normal) Range: 0-5 SQUAM EPI SeeNote {/hpf} (Normal) Range: 0-5 Comments: Result: 0-5 SEEN LEUK ESTERASE SeeNote (Normal) Comments: Result: NEGATIVE WBC 0 SEEN {/hpf} (Normal) Range: 0-5 OCCULT BLOOD-UR SeeNote (Normal) Comments: Result: NEGATIVE NITRITE UR SeeNote (Normal) Comments: Result: NEGATIVE PROT DIPSTX SeeNote (Normal) Comments: Result: NEGATIVE UROBILI 0.2 EU/dl (Normal) Range: 0.2 - 1.0 pH UR 5.5 (Normal) Range: 5.0-8.0 SP.GR. DIPSTX 1.025 (Normal) Range: 1.002-1.030 BILIRUBIN URINE SeeNote (Normal) Comments: Result: NEGATIVE KETONE UR SeeNote mg/dL (Normal) Comments: Result: NEGATIVE CLARITY CLEAR (Normal) GLUCOSE, UR SeeNote (Normal) Comments: Result: NEGATIVE COLOR YELLOW (Normal) :23 LIPID LDL 55 mg/dL (Normal) Range: 0-130 VLDL 31 mg/dL (Normal) Range: 5-40 HDL 44 mg/dL (Normal) Comments: Reference Range HDL <40 mg/dL Low HDL Cholesterol HDL >or= 60 mg/dL High HDL Cholesterol TRIG 153 mg/dL (Normal) Comments: Serum Triglycerides Reference Interval Normal <150 mg/dL Borderline high 150 - 199 mg/dL High 200 - 499 mg/dL Very High > or = 500 mg/dL CHOL 130 mg/dL (Normal) Comments: <200 mg/dL Desirable 200-240 mg/dL Borderline >240 mg/dL High Risk :23 PSA, SCREEN 0.6 ng/mL (Normal) Range: 0.0-4.0 :04 CBCD,SMEAR DIFF Comments: DR. WEST ORDERED LIPID/LPDR.FAST ORDERED LIPID CMP CBCMD EOS 6 % (Abnormal) Range: 0-5 LYMPH 33 % (Normal) Range: 19-41 MONOCYTE 11 % (Abnormal) Range: 0-10 PLT EST SeeNote (Normal) Comments: Result: ADEQUATE RED CELL MORPH SeeNote {NORMAL} (Normal) Comments: Result: NORM C+C ABSOLUTE NEUT 3.0 3/uL (Normal) Range: 2.0-7.7 CELLS COUNTED 100 (Normal) HCT 40.5 % (Normal) Range: 40-54 HGB 13.9 g/dL (Abnormal) Range: 14.0-18.0 MCH 33.6 pg (Abnormal) Range: 27.0-32.0 MCHC 34.3 g/dL (Normal) Range: 32-36 MCV 97.9 fL (Abnormal) Range: 80-94 PLT 177 K/mm3 (Normal) Range: 150-450 RBC 4.14 {M/mm3} (Abnormal) Range: 4.6-6.2 RDW 13.0 % (Normal) Range: 11.6-14.6 SEGS 50 % (Normal) Range: 47-70 WBC 5.0 K/mm3 (Normal) Range: 4.4-11.0 :04 COMP METABOLIC Comments: DR. WEST ORDERED LIPID/LPDR.FAST ORDERED LIPID CMP CBCMD ALK P 46 U/L (Abnormal) Range: 50-136 ALT 29 U/L (Normal) Range: 12-78 AST 16 U/L (Normal) Range: 15-37 CA 8.8 mg/dL (Normal) Range: 8.5-10.1 CL 102 mmol/L (Normal) Range: 98-107 CO2 30.0 mmol/L (Normal) Range: 21.0-32.0 GAP 5 (Normal) Range: 5-15 K 4.3 mmol/L (Normal) Range: 3.5-5.1 NA 137 mmol/L (Normal) Range: 136-145 T BILI 0.50 mg/dL (Normal) Range: 0.00-1.00 A/G 1.1 {RATIO} (Normal) Range: 0.9-2.4 ALB 3.6 g/dL (Normal) Range: 3.4-5.0 BUN 24 mg/dL (Abnormal) Range: 7-18 BUN/CRE 18.5 {RATIO} (Normal) Range: 10-20 CREAT,SERUM 1.3 mg/dL (Normal) Range: 0.8-1.3 EST GFR 60 mL/min (Normal) EST GFR - AA 73 mL/min (Normal) GLOB 3.2 g/dL (Normal) Range: 2.7-4.2 T PROT 6.8 g/dL (Normal) Range: 6.4-8.2 GLU 94 mg/dL (Normal) Range: 70-110 :04 D BILI 0.12 mg/dL (Normal) Comments: DR. WEST ORDERED LIPID/LPDR.FAST ORDERED LIPID CMP CBCMD Range: 0.00-0.30 :04 LIPID Comments: DR. WEST ORDERED LIPID/LPDR.FAST ORDERED LIPID CMP CBCMD HDL 49 mg/dL (Normal) Comments: Reference RangeHDL <40 mg/dL Low HDL CholesterolHDL >or= 60 mg/dL High HDL Cholesterol LDL 43 mg/dL (Normal) Range: 0-130 TRIG 174 mg/dL (Normal) Comments: Serum Triglycerides Reference IntervalNormal <150 mg/dLBorderline high 150 - 199 mg/dLHigh 200 - 499 mg/ dLVery High > or = 500 mg/dL VLDL 35 mg/dL (Normal) Range: 5-40 CHOL 127 mg/dL (Normal) Comments: <200 mg/dL [id number] mg/dL Borderline>240 mg/dL High Risk :10 CBCD Comments: ORDERED BMPMARY CIESA ORDERED RENAL CBCD ABSOLUTE NEUT 6.7 3/uL (Normal) Range: 2.0-7.7 BASO% 0.0 % (Normal) Range: 0-1 EO% 1.0 % (Normal) Range: 0-5 HCT 42.1 % (Normal) Range: 40-54 HGB 14.0 g/dL (Normal) Range: 14.0-18.0 LY% 16.5 % (Abnormal) Range: 19-41 MCH 31.7 pg (Normal) Range: 27.0-32.0 MCHC 33.3 g/dL (Normal) Range: 32-36 MCV 95.1 fL (Abnormal) Range: 80-94 MONO% 5.5 % (Normal) Range: 0-10 MPV 7.5 fL (Normal) Range: 6.5-12.0 NEUT% 77.0 % (Abnormal) Range: 47-70 PLT 192 K/mm3 (Normal) Range: 150-450 RBC 4.42 {M/mm3} (Abnormal) Range: 4.6-6.2 RDW 13.8 % (Normal) Range: 11.6-14.6 WBC 8.7 K/mm3 (Normal) Range: 4.4-11.0 :10 RENAL Comments: ORDERED BMPCHANEL ALAMO ORDERED RENAL CBCD CL 104 mmol/L (Normal) Range: 98-107 CO2 28.0 mmol/L (Normal) Range: 21.0-32.0 K 4.4 mmol/L (Normal) Range: 3.5-5.1 NA 141 mmol/L (Normal) Range: 136-145 PHOS 2.5 mg/dL (Normal) Range: 2.5-4.9 ALB 3.4 g/dL (Normal) Range: 3.4-5.0 BUN 29 mg/dL (Abnormal) Range: 7-18 BUN/CRE 22.3 {RATIO} (Abnormal) Range: 10-20 CA 9.1 mg/dL (Normal) Range: 8.5-10.1 CREAT,SERUM 1.3 mg/dL (Normal) Range: 0.8-1.3 EST GFR 60 mL/min (Normal) EST GFR - AA 73 mL/min (Normal) GLU 101 mg/dL (Normal) Range: 70-110 :55 BMP BUN/CRE 19.4 {RATIO} (Normal) Range: 10-20 CA 8.6 mg/dL (Normal) Range: 8.5-10.1 CL 103 mmol/L (Normal) Range: 98-107 CO2 29.0 mmol/L (Normal) Range: 21.0-32.0 EST GFR 44 mL/min (Abnormal) EST GFR - AA 53 mL/min (Abnormal) GAP 5 (Normal) Range: 5-15 K 5.0 mmol/L (Normal) Range: 3.5-5.1 NA 137 mmol/L (Normal) Range: 136-145 BUN 33 mg/dL (Abnormal) Range: 7-18 CREAT,SERUM 1.7 mg/dL (Abnormal) Range: 0.8-1.3 GLU 95 mg/dL (Normal) Range: 70-110 :55 CBCD ABSOLUTE NEUT 4.8 3/uL (Normal) Range: 2.0-7.7 BASO% 0.4 % (Normal) Range: 0-1 EO% 1.8 % (Normal) Range: 0-5 MONO% 7.9 % (Normal) Range: 0-10 LY% 13.9 % (Abnormal) Range: 19-41 HCT 41.6 % (Normal) Range: 40-54 HGB 13.9 g/dL (Abnormal) Range: 14.0-18.0 MCH 31.7 pg (Normal) Range: 27.0-32.0 MCHC 33.5 g/dL (Normal) Range: 32-36 MCV 94.6 fL (Abnormal) Range: 80-94 MPV 7.3 fL (Normal) Range: 6.5-12.0 NEUT% 76.0 % (Abnormal) Range: 47-70 PLT 172 K/mm3 (Normal) Range: 150-450 RBC 4.40 {M/mm3} (Abnormal) Range: 4.6-6.2 RDW 13.0 % (Normal) Range: 11.6-14.6 WBC 6.4 K/mm3 (Normal) Range: 4.4-11.0 :55 ESR SED RATE 6 mm/h (Normal) Range: 0-20 :55 LIPID HDL 45 mg/dL (Normal) Comments: Reference RangeHDL <40 mg/dL Low HDL CholesterolHDL >or= 60 mg/dL High HDL Cholesterol LDL 68 mg/dL (Normal) Range: 0-130 VLDL 33 mg/dL (Normal) Range: 5-40 CHOL 146 mg/dL (Normal) Comments: <200 mg/dL [id number] mg/dL Borderline>240 mg/dL High Risk TRIG 166 mg/dL (Normal) Comments: Serum Triglycerides Reference IntervalNormal <150 mg/dLBorderline high 150 - 199 mg/dLHigh 200 - 499 mg/ dLVery High > or = 500 mg/dL :55 LIVER ALT 32 U/L (Normal) Range: 12-78 D BILI 0.07 mg/dL (Normal) Range: 0.00-0.30 T BILI 0.30 mg/dL (Normal) Range: 0.00-1.00 ALB 3.7 g/dL (Normal) Range: 3.4-5.0 ALK P 41 U/L (Abnormal) Range: 50-136 AST 20 U/L (Normal) Range: 15-37 T PROT 6.8 g/dL (Normal) Range: 6.4-8.2 :55 MG 2.3 mg/dL (Abnormal) Range: 1.5-2.2 :55 T4 THYROXIN 7.4 ug/dL (Normal) Range: 4.5-12.1 :55 TSH 1.10 {uIU/mL} (Normal) Range: 0.358-3.74 :10 BRAIN W/WO CONTRAST Radiology Report See Note (Normal) Comments: Exam Number: [id number] CLINICAL: Fatigue MRI BRAIN WITH AND WITHOUT CONTRAST COMPARISON: None. TECHNIQUE: Standardized fat and water weighted pulse sequences wereobtained in all 3 orthogonal planes, pre -and post contrastadministration. 20 ml of Magnevist contrast material wasadministered intravenously for the contrast portion of theexamination. FINDINGS: Normal cerebral hemispheres, without ventricul ar dilatation orsulcal prominence. There are a limited number of small white matterhyperintensities, distributed throughout the deep white mattertracts of the cerebral hemispheres, consistent with mild chronicwhite matter ischemic changes. Normal basal ganglia, and thalami.There is no evidence for recent intracranial ischemia or other causeof cytotoxic edema on diffusion weighted imaging. Normal geo w voids in the distribution of the major intracranialcirculation suggests patency by spin echo criteria. There is no extra-axial fluid accumulation. There is normal enhancement of the dural sinuses and cortical veins. There is no enhancing intra-axial or extra-axial mass lesion orvascular malformation. Normal sella turcica, pituitary gland, infundibular stalk, opticchiasm and hypothalamus. Normal halley heath plate and pineal glandwithout a mass lesion or pineal cyst. Normal suprasellar, interpeduncular, perimesencephalic andpre-pontine cisterns. Normal midbrain, carlo and medulla without a morphologic or signalalteration. Normal vermis and cerebellar hemispheres, without tonsillar ectopiaor a mass lesion. Normal bilateral temporal bones, with normal visualized bilateralinternal auditory canals (IACs), mastoid air cells, and petrousapices and cerebellopontine angle (CPA) cisterns. There is noenhancement of the bilateral VII and VIIIth cranial nerve complexes. Normal bilateral orbital contents. Bowing deformity of the leftorbital floor suggest sequelae of prior orbital trauma. Normal visualized paranasal sinuses without demonstratedmucoperiosteal inflammatory disease. Normal central skull base, osse ous calvarial and soft tissuestructures. IMPRESSION:Mild sequelae of chronic fibrovascular disease. No evidence foracute or evolving intracranial process Deformity of the floor of the left orbit sugges ts sequelae of remotetrauma. Reported By: HUEY ERAZO M.D. [id number] CHIQUI-D [id number] CHI[facility]I-DIRECT SeeNote (Normal) Comments: Result: NegativePerformed At: [facility] [id number] [place], [place] [id number] :07 B12/FOLATES FOLATES 26.50 ng/mL (Abnormal) Range: 3.1-17.5 VITAMIN B12 1068 pg/mL (Normal) Range: 254-1320 [id number]-[id number]:07 RHEUMATOID FAC < 10 {IU/mL} (Normal) :07 TSH 0.59 {uIU/mL} (Normal) Range: 0.358-3.74 32-Qcm-[id number]:07 C-REACTIVE PROT 3.09 mg/L (Abnormal) Range: 0.0-3.0 Comments: C-Reactive Protein (CRP) provides useful information for thediagnosis, therapy and monitoring of inflammatory processesand associated diseases. For the evaluation of Relative Riskfor Cardiovascular Dise ase, a High Sensitivity CRP (HSCRP)should be ordered. :07 COMP METABOLIC GAP 5 (Normal) Range: 5-15 A/G 1.4 {RATIO} (Normal) Range: 0.9-2.4 ALB 4.0 g/dL (Normal) Range: 3.4-5.0 ALK P 43 U/L (Abnormal) Range: 50-136 ALT 41 U/L (Normal) Range: 12-78 AST 17 U/L (Normal) Range: 15-37 CA 9.1 mg/dL (Normal) Range: 8.5-10.1 CL 108 mmol/L (Abnormal) Range: 98-107 CO2 30.0 mmol/L (Normal) Range: 21.0-32.0 GLOB 2.8 g/dL (Normal) Range: 2.7-4.2 K 5.1 mmol/L (Normal) Range: 3.5-5.1 NA 143 mmol/L (Normal) Range: 136-145 T BILI 0.30 mg/dL (Normal) Range: 0.00-1.00 BUN 32 mg/dL (Abnormal) Range: 7-18 BUN/CRE 22.9 {RATIO} (Abnormal) Range: 10-20 CREAT,SERUM 1.4 mg/dL (Abnormal) Range: 0.8-1.3 EST GFR 55 mL/min (Abnormal) EST GFR - AA 67 mL/min (Normal) T PROT 6.8 g/dL (Normal) Range: 6.4-8.2 GLU 75 mg/dL (Normal) Range: 70-110 32-Zyn-[id number]:28 ESR SED RATE 6 mm/h (Normal) Range: 0-20 56-Yvi-591904:28 CBCD BASO% 0.5 % (Normal) Range: 0-1 EO% 2.7 % (Normal) Range: 0-5 LY% 17.8 % (Abnormal) Range: 19-41 MONO% 9.2 % (Normal) Range: 0-10 NEUT% 69.8 % (Normal) Range: 47-70 MCH 31.6 pg (Normal) Range: 27.0-32.0 MCHC 33.2 g/dL (Normal) Range: 32-36 MCV 95.3 fL (Abnormal) Range: 80-94 MPV 7.4 fL (Normal) Range: 6.5-12.0 PLT 206 K/mm3 (Normal) Range: 150-450 RDW 13.6 % (Normal) Range: 11.6-14.6 HCT 43.8 % (Normal) Range: 40-54 HGB 14.5 g/dL (Normal) Range: 14.0-18.0 RBC 4.59 {M/mm3} (Abnormal) Range: 4.6-6.2 WBC 9.4 K/mm3 (Normal) Range: 4.4-11.0 [id number]-Bgh-[id number]:18 CULTURE, THROAT See Note (Normal) Comments: Normal throat susanne isolated. No beta-hemolyticstreptococcus isolated. 14-Apr-20098:48 Rapid Strep Test, Office ([id number]) Rapid Strep Test, Office Negative (Normal) 7-Oqy-010783:59 CTA NECK W/WO CONTRAST Radiology Report See Note (Normal) Comments: Exam Number: [id number] HISTORYCarotid stenosis. Abnormal carotid artery ultrasound. CT NECK WITH CONTRAST CT angiogram neck with contrast images were obtained, multiplanarimages after intra venous injec tion of Isovue 370, 100 mL. FINDINGSNo prior exam is available for comparison. Scattered atherosclerotic calcifications at aortic arch, at origin ofmajor neck vessels. Left vertebral artery is dominant . Very minuteright vertebral artery is noted. Also atherosclerotic calcifications and intimal thickening at commoncarotid arteries as well as its bifurcations. However, no evidence ofsignificant car otid artery stenosis is noted. Neck soft tissues demonstrated no evidence of significantlymphadenopathy. The parotid gland, submandibular glands areunremarkable. The pharynx, larynx are unremarkable. Visualized bones demonstrated mild age related degenerative changes. Lung apices are unremarkable. Visualized paranasal sinuses, orbits,mastoid air cells are grossly unremarkable. IMPRESSION1. Scatt ered atherosclerotic calcifications at aortic arch and itsmajor neck vessels. Also atherosclerotic calcifications at commoncarotid arteries and its bifurcations. However, no evidence ofsignificant alpesh nosis is noted. 2. Dominant left vertebral artery. Right vertebral artery is verysmall in caliber. Reported By: Chester Hawley 27-Jan-2009 K 4.5 mmol/L Range: 3.5-5.1 0:00 (Normal) 50-Hfh-156259:19 BMP BUN 35 mg/dL (Abnormal) Range: 7-18 BUN/CRE 23.3 {RATIO} (Abnormal) Range: 10-20 CA 9.0 mg/dL (Normal) Range: 8.5-10.1 CL 105 mmol/L (Normal) Range: 98-107 CO2 28.0 mmol/L (Normal) Range: 21.0-32.0 CREAT,SERUM 1.5 mg/dL (Abnormal) Range: 0.8-1.3 EST GFR 51 mL/min (Abnormal) EST GFR - AA 62 mL/min (Normal) GAP 9 (Normal) Range: 5-15 GLU 86 mg/dL (Normal) Range: 70-110 K 5.3 mmol/L (Abnormal) Range: 3.5-5.1 NA 142 mmol/L (Normal) Range: 136-145 :15 CBCD,SMEAR DIFF BAND 1 % (Normal) Range: 0-5 CELLS COUNTED 100 (Normal) EOS 1 % (Normal) Range: 0-5 HCT 42.1 % (Normal) Range: 40-54 HGB 14.2 g/dL (Normal) Range: 14.0-18.0 LYMPH 26 % (Normal) Range: 19-41 MCH 32.5 pg (Abnormal) Range: 27.0-32.0 MCHC 33.7 g/dL (Normal) Range: 32-36 MCV 96.3 fL (Abnormal) Range: 80-94 MONOCYTE 9 % (Normal) Range: 0-10 PLT 166 K/mm3 (Normal) Range: 150-450 PLT EST SeeNote (Normal) Comments: Result: ADEQUATE RBC 4.37 {M/mm3} (Abnormal) Range: 4.6-6.2 RDW 13.1 % (Normal) Range: 11.6-14.6 RED CELL MORPH SeeNote {NORMAL} (Normal) Comments: Result: NORM C+C SEGS 63 % (Normal) Range: 47-70 WBC 5.6 K/mm3 (Normal) Range: 4.4-11.0 :15 COMP METABOLIC A/G 1.2 {RATIO} (Normal) Range: 0.9-2.4 ALB 3.7 g/dL (Normal) Range: 3.4-5.0 ALK P 46 U/L (Abnormal) Range: 50-136 ALT 24 U/L (Abnormal) Range: 30-65 AST 17 U/L (Normal) Range: 15-37 BUN 31 mg/dL (Abnormal) Range: 7-18 BUN/CRE 22.1 {RATIO} (Abnormal) Range: 10-20 CA 8.9 mg/dL (Normal) Range: 8.5-10.1 CL 112 mmol/L (Abnormal) Range: 98-107 CO2 25.0 mmol/L (Normal) Range: 21.0-32.0 CREAT,SERUM 1.4 mg/dL (Abnormal) Range: 0.8-1.3 EST GFR 55 mL/min (Abnormal) EST GFR - AA 67 mL/min (Normal) GAP 10 (Normal) Range: 5-15 GLOB 3.1 g/dL (Normal) Range: 2.7-4.2 GLU 94 mg/dL (Normal) Range: 70-110 K 5.1 mmol/L (Normal) Range: 3.5-5.1 NA 147 mmol/L (Abnormal) Range: 136-145 T BILI 0.50 mg/dL (Normal) Range: 0.00-1.00 T PROT 6.8 g/dL (Normal) Range: 6.4-8.2 :15 LIPID CHOL 130 mg/dL (Normal) Comments: <200 mg/dL Desirable 200-240 mg/dL Borderline >240 mg/dL High Risk HDL 47 mg/dL (Normal) Comments: Reference Range HDL <40 mg/dL Low HDL Cholesterol HDL >or= 60 mg/dL High HDL Cholesterol LDL 60 mg/dL (Normal) Range: 0-130 TRIG 114 mg/dL (Normal) Comments: Serum Triglycerides Reference Interval Normal <150 mg/dL Borderline high 150 - 199 mg/dL High 200 - 499 mg/dL Very High > or = 500 mg/dL VLDL 23 mg/dL (Normal) Range: 5-40 :15 PSA, SCREEN 0.5 ng/mL (Normal) Range: 0.0-4.0 :15 TSH 0.67 {uIU/mL} (Normal) Range: 0.358-3.74 :24 CBC HCT 37.5 % (Abnormal) Range: 40-54 HGB 13.1 g/dL (Abnormal) Range: 14.0-18.0 MCH 34.5 pg (Abnormal) Range: 27.0-32.0 MCHC 34.8 g/dL (Normal) Range: 32-36 MCV 99.0 fL (Abnormal) Range: 80-94 MPV 7.4 fL (Normal) Range: 6.5-12.0 PLT 196 K/mm3 (Normal) Range: 150-450 RBC 3.79 {M/mm3} (Abnormal) Range: 4.6-6.2 RDW 14.3 % (Normal) Range: 11.6-14.6 WBC 5.9 K/mm3 (Normal) Range: 4.4-11.0 :01 BMP BUN 29 mg/dL (Abnormal) Range: 7-18 BUN/CRE 20.7 {RATIO} (Abnormal) Range: 10-20 CA 8.7 mg/dL (Normal) Range: 8.5-10.1 CL 104 mmol/L (Normal) Range: 98-107 CO2 29.0 mmol/L (Normal) Range: 21.0-32.0 CREAT,SERUM 1.4 mg/dL (Abnormal) Range: 0.8-1.3 EST GFR 55 mL/min (Abnormal) EST GFR - AA 67 mL/min (Normal) GAP 5 (Normal) Range: 5-15 GLU 81 mg/dL (Normal) Range: 70-110 K 4.3 mmol/L (Normal) Range: 3.5-5.1 NA 138 mmol/L (Normal) Range: 136-145 :01 CBCD,SMEAR DIFF BAND 1 % (Normal) Range: 0-5 CELLS COUNTED 100 (Normal) EOS 3 % (Normal) Range: 0-5 HCT 36.0 % (Abnormal) Range: 40-54 HGB 12.2 g/dL (Abnormal) Range: 14.0-18.0 LYMPH 21 % (Normal) Range: 19-41 MCH 34.0 pg (Abnormal) Range: 27.0-32.0 MCHC 34.0 g/dL (Normal) Range: 32-36 MCV 99.8 fL (Abnormal) Range: 80-94 MONOCYTE 7 % (Normal) Range: 0-10 PLT 208 K/mm3 (Normal) Range: 150-450 PLT EST SeeNote (Normal) Comments: Result: ADEQUATE RBC 3.60 {M/mm3} (Abnormal) Range: 4.6-6.2 RDW 16.3 % (Abnormal) Range: 11.6-14.6 RED CELL MORPH SeeNote {NORMAL} (Normal) Comments: Result: NORM C+C SEGS 68 % (Normal) Range: 47-70 WBC 6.7 K/mm3 (Normal) Range: 4.4-11.0 : FERRITIN 201 ng/mL (Normal) Range: 26-388 : FOLATES 13.40 ng/mL (Normal) Range: 3.1-17.5 : IRON 108 ug/dL (Normal) Range: 65-175 : LDH 153 U/L (Normal) Range: 100-190 : RETIC 3.06 % (Abnormal) Range: 0.5-1.5 : TIBC 412 ug/dL (Normal) Range: 250-450 : VITAMIN B12 611 pg/mL (Normal) Range: 254-1320 :43 FECAL OCCULT- Tubes sent home ([id number]) FECAL OCCULT HGB ASSAY, QUAL, 1-3 SIMULTANEOU neg (Normal) :12 Rapid Flu ([id number] x 2) Comments: done BC INFLUENZA IMMUNOASSY DIRECT OPTICAL OBSERV Negative (Normal) :34 COMP METABOLIC Comments: DR. ENCARNACION ORDERED CMP LIPIDDR. JENNA ORDERED LP A/G 1.2 {RATIO} (Normal) Range: 0.9-2.4 ALB 3.7 g/dL (Normal) Range: 3.4-5.0 ALK P 47 U/L (Abnormal) Range: 50-136 ALT 38 U/L (Normal) Range: 30-65 AST 26 U/L (Normal) Range: 15-37 BUN 23 mg/dL (Abnormal) Range: 7-18 BUN/CRE 17.7 {RATIO} (Normal) Range: 10-20 CA 9.0 mg/dL (Normal) Range: 8.5-10.1 CL 105 mmol/L (Normal) Range: 98-107 CO2 30.0 mmol/L (Normal) Range: 21.0-32.0 CREAT,SERUM 1.3 mg/dL (Normal) Range: 0.8-1.3 GAP 5 (Normal) Range: 5-15 GLOB 3.1 g/dL (Normal) Range: 2.7-4.2 GLU 87 mg/dL (Normal) Range: 70-110 K 4.9 mmol/L (Normal) Range: 3.5-5.1 NA 140 mmol/L (Normal) Range: 136-145 T BILI 0.46 mg/dL (Normal) Range: 0.00-1.00 T PROT 6.8 g/dL (Normal) Range: 6.4-8.2 :34 D BILI 0.09 mg/dL (Normal) Comments: DR. ENCARNACION ORDERED CMP LIPIDDR. JENNA ORDERED LP Range: 0.00-0.30 :34 LIPID Comments: DR. ENCARNACION ORDERED CMP LIPIDDR. JENNA ORDERED LP CHOL 176 mg/dL (Normal) Comments: <200 mg/dL Desirable 200-240 mg/dL Borderline >240 mg/dL High Risk HDL 40 mg/dL (Normal) Comments: Reference Range HDL <40 mg/dL Low HDL Cholesterol HDL >or= 60 mg/dL High HDL Cholesterol LDL 111 mg/dL (Normal) Range: 0-130 TRIG 126 mg/dL (Normal) Comments: Serum Triglycerides Reference Interval Normal <150 mg/dL Borderline high 150 - 199 mg/dL High 200 - 499 mg/dL Very High > or = 500 mg/dL VLDL 25 mg/dL (Normal) Range: 5-40 :56 PSA,TOT SCREEN 0.58 ng/mL (Normal) Range: 0.00-4.00 Comments: This test was performed using the TPSA method for the[facility] chemistry system.Values obtained with different assay methods cannot be usedinterchangably.When changing PSA assays in the course of monito ring apatient, additional sequential testing should be carriedout to confirm baseline values. :29 CBCD,SMEAR DIFF BASOPHIL 1 % (Normal) Range: 0-1 CELLS COUNTED 100 (Normal) EOS 4 % (Normal) Range: 0-5 HCT 43.9 % (Normal) Range: 40-54 HGB 15.2 g/dL (Normal) Range: 14.0-18.0 LYMPH 24 % (Normal) Range: 19-41 MCH 32.4 pg (Abnormal) Range: 27.0-32.0 MCHC 34.6 g/dL (Normal) Range: 32-36 MCV 93.8 fL (Normal) Range: 80-94 MONOCYTE 10 % (Normal) Range: 0-10 PLT 183 K/mm3 (Normal) Range: 150-450 PLT EST SeeNote (Normal) Comments: Result: ADEQUATE RBC 4.68 {M/mm3} (Normal) Range: 4.6-6.2 RDW 13.5 % (Normal) Range: 11.6-14.6 RED CELL MORPH SeeNote {NORMAL} (Normal) Comments: Result: NORM C+C SEGS 61 % (Normal) Range: 47-70 WBC 5.1 K/mm3 (Normal) Range: 4.4-11.0 :29 COMP METABOLIC A/G 0.9 {RATIO} (Normal) Range: 0.9-2.4 ALB 3.3 g/dL (Abnormal) Range: 3.4-5.0 ALK P 75 U/L (Normal) Range: 50-136 ALT 44 [iU]/L (Normal) Range: 30-65 AST 25 U/L (Normal) Range: 15-37 BUN 22 mg/dL (Abnormal) Range: 7-18 BUN/CRE 24.4 {RATIO} (Abnormal) Range: 10-20 CA 8.4 mg/dL (Abnormal) Range: 8.5-10.1 CL 103 mmol/L (Normal) Range: 98-107 CO2 31.7 mmol/L (Normal) Range: 21.0-32.0 CREAT,SERUM 0.9 mg/dL (Normal) Range: 0.8-1.3 GAP 2 (Abnormal) Range: 5-15 GLOB 3.5 g/dL (Normal) Range: 2.7-4.2 GLU 98 mg/dL (Normal) Range: 70-110 K 4.1 mmol/L (Normal) Range: 3.5-5.1 NA 137 mmol/L (Normal) Range: 136-145 T BILI 0.40 mg/dL (Normal) Range: 0.00-1.00 T PROT 6.8 g/dL (Normal) Range: 6.4-8.2 :29 D BILI 0.07 mg/dL (Normal) Range: 0.00-0.30 :29 LIPID CHOL 190 mg/dL (Normal) Comments: <200 mg/dL Desirable 200-240 mg/dL Borderline >240 mg/dL High Risk HDL 39 mg/dL (Normal) Comments: Reference Range HDL <40 mg/dL Low HDL Cholesterol HDL >or= 60 mg/dL High HDL Cholesterol LDL 114 mg/dL (Normal) Range: 0-130 TRIG 186 mg/dL (Normal) Comments: Serum Triglycerides Reference Interval Normal <150 mg/dL Borderline high 150 - 199 mg/dL High 200 - 499 mg/dL Very High > or = 500 mg/dL VLDL 37 mg/dL (Normal) Range: 5-40 :29 ROUTINE UA BILIRUBIN URINE SeeNote (Normal) Comments: Result: NEGATIVE CLARITY CLEAR (Normal) COLOR YELLOW (Normal) GLUCOSE, UR SeeNote (Normal) Comments: Result: NEGATIVE KETONE UR SeeNote mg/dL (Normal) Comments: Result: NEGATIVE LEUK ESTERASE SeeNote (Normal) Comments: Result: NEGATIVE NITRITE UR SeeNote (Normal) Comments: Result: NEGATIVE OCCULT BLOOD-UR SeeNote (Normal) Comments: Result: NEGATIVE pH UR 5.5 (Normal) Range: 5.0-8.0 PROT DIPSTX SeeNote (Normal) Comments: Result: NEGATIVE SP.GR. DIPSTX >=1.030 (Normal) Range: 1.002-1.030 UROBILI 0.2 EU/dl (Normal) Range: 0.2 - 1.0 :29 TSH 0.89 {uIU/mL} (Normal) Range: 0.34-4.82 :02 COMP METABOLIC A/G 1.0 {RATIO} (Normal) Range: 0.9-2.4 ALB 3.3 g/dL (Abnormal) Range: 3.4-5.0 ALK P 51 U/L (Normal) Range: 50-136 ALT 44 [iU]/L (Normal) Range: 30-65 AST 24 U/L (Normal) Range: 15-37 BUN 18 mg/dL (Normal) Range: 7-18 BUN/CRE 16.4 {RATIO} (Normal) Range: 10-20 CA 8.9 mg/dL (Normal) Range: 8.5-10.1 CL 103 mmol/L (Normal) Range: 98-107 CO2 27.2 mmol/L (Normal) Range: 21.0-32.0 Comments: Please Note Reference Interval Change CREAT,SERUM 1.1 mg/dL (Normal) Range: 0.8-1.3 GAP 8 (Normal) Range: 5-15 GLOB 3.3 g/dL (Normal) Range: 2.7-4.2 Comments: Please Note Reference Interval Change GLU 109 mg/dL (Normal) Range: 70-110 K 4.0 mmol/L (Normal) Range: 3.5-5.1 NA 138 mmol/L (Normal) Range: 136-145 T BILI 0.40 mg/dL (Normal) Range: 0.00-1.00 T PROT 6.6 g/dL (Normal) Range: 6.4-8.2 :15 GLU GTT-2 HOUR 81 mg/dL (Normal) Comments: 2HR GTT GLU 2 HR GLU GTT-2 HOUR from [id number]. Range: 70-120 :05 GLU GTT-1 HOUR 183 mg/dL (Abnormal) Comments: 2HR GTT GLU 1 HR GLU GTT-1 HOUR from [id number]. Range: 120-170 :31 GLU GTT-30 min. 170 mg/dL (Normal) Comments: 2HR GTT GLU 1/2 HR GLU GTT-30 min. from [id number]. Range: 110-170 :00 D BILI 0.09 mg/dL (Normal) Range: 0.00-0.30 :58 COMP METABOLIC Comments: SEND LIVER RESULTS TO DR. JENNA Petersen 1.1 {RATIO} (Normal) Range: 0.9-2.4 ALB 3.6 g/dL (Normal) Range: 3.4-5.0 ALK P 68 U/L (Normal) Range: 50-136 ALT 56 [iU]/L (Normal) Range: 30-65 AST 24 U/L (Normal) Range: 15-37 BUN 14 mg/dL (Normal) Range: 7-18 BUN/CRE 12.7 {RATIO} (Normal) Range: 10-20 CA 8.7 mg/dL (Normal) Range: 8.5-10.1 CL 103 mmol/L (Normal) Range: 98-107 CO2 28.0 mmol/L (Normal) Range: 21.0-32.0 Comments: Please Note Reference Interval Change CREAT,SERUM 1.1 mg/dL (Normal) Range: 0.8-1.3 GAP 8 (Normal) Range: 5-15 GLOB 3.3 g/dL (Normal) Range: 2.7-4.2 Comments: Please Note Reference Interval Change GLU 112 mg/dL (Abnormal) Range: 70-110 Comments: Fasting Glucose result from 110 to <126 mg/dL suggests IMPAIRED HOMEOSTASIS per A.D.A. criteria. K 4.1 mmol/L (Normal) Range: 3.5-5.1 NA 139 mmol/L (Normal) Range: 136-145 T BILI 0.38 mg/dL (Normal) Range: 0.00-1.00 T PROT 6.9 g/dL (Normal) Range: 6.4-8.2 :58 GLU GTT-FASTING 112 mg/dL (Abnormal) Comments: 2HR GTT FASTING GLU GTT-FASTING from [id number]. Range: 70-110 Comments: GLUCOSE TOLERANCE TEST Reference Interval Non- Adults Fasting 70 - 110 30 minutes 110 - 170 1 hour 120 - 170 2 hour 70 - 120 3 hour 70 - 110 4 hour 70 - 110 5 hour 70 - 110 :58 VITAMIN B12 533 pg/mL (Normal) Range: 211-911 :03 CBCD,SMEAR DIFF BAND 2 % (Normal) Range: 0-5 CELLS COUNTED 100 (Normal) EOS 3 % (Normal) Range: 0-5 HCT 44.1 % (Normal) Range: 40-54 HGB 15.3 g/dL (Normal) Range: 14.0-18.0 LYMPH 26 % (Normal) Range: 19-41 MCH 32.9 pg (Abnormal) Range: 27.0-32.0 MCHC 34.8 g/dL (Normal) Range: 32-36 MCV 94.4 fL (Abnormal) Range: 80-94 MONOCYTE 13 % (Abnormal) Range: 0-10 PLT 166 K/mm3 (Normal) Range: 150-450 PLT EST SeeNote (Normal) Comments: Result: ADEQUATE RBC 4.67 {M/mm3} (Normal) Range: 4.6-6.2 RDW 13.4 % (Normal) Range: 11.6-14.6 RED CELL MORPH SeeNote {NORMAL} (Normal) Comments: Result: NORM C&C SEGS 56 % (Normal) Range: 47-70 WBC 5.0 K/mm3 (Normal) Range: 4.4-11.0 :03 COMP METABOLIC A/G 1.2 {RATIO} (Normal) Range: 0.9-2.4 ALB 3.6 g/dL (Normal) Range: 3.4-5.0 ALK P 59 U/L (Normal) Range: 50-136 ALT 70 [iU]/L (Abnormal) Range: 30-65 AST 38 U/L (Abnormal) Range: 15-37 BUN 22 mg/dL (Abnormal) Range: 7-18 BUN/CRE 22.0 {RATIO} (Abnormal) Range: 10-20 CA 8.6 mg/dL (Normal) Range: 8.5-10.1 CL 107 mmol/L (Normal) Range: 98-107 CO2 29.2 mmol/L (Abnormal) Range: 22.0-29.0 CREAT,SERUM 1.0 mg/dL (Normal) Range: 0.8-1.3 GAP 5 (Normal) Range: 5-15 GLOB 2.9 g/dL (Normal) Range: 2.3-3.5 GLU 103 mg/dL (Normal) Range: 70-110 K 4.3 mmol/L (Normal) Range: 3.5-5.1 NA 141 mmol/L (Normal) Range: 136-145 T BILI 0.35 mg/dL (Normal) Range: 0.00-1.00 T PROT 6.5 g/dL (Normal) Range: 6.4-8.2 :03 D BILI 0.06 mg/dL (Normal) Range: 0.00-0.30 :03 LIPID CHOL 118 mg/dL (Normal) Comments: <200 mg/dL Desirable 200-240 mg/dL Borderline >240 mg/dL High Risk HDL 40 mg/dL (Normal) Comments: Reference Range HDL <40 mg/dL Low HDL Cholesterol HDL >or= 60 mg/dL High HDL Cholesterol LDL 42 mg/dL (Normal) Range: 0-130 TRIG 178 mg/dL (Normal) Comments: Serum Triglycerides Reference Interval Normal <150 mg/dL Borderline high 150 - 199 mg/dL High 200 - 499 mg/dL Very High > or = 500 mg/dL VLDL 36 mg/dL (Normal) Range: 5-40 :03 ROUTINE UA BILIRUBIN URINE SeeNote (Normal) Comments: Result: NEGATIVE CLARITY CLEAR (Normal) COLOR YELLOW (Normal) GLUCOSE, UR SeeNote (Normal) Comments: Result: NEGATIVE KETONE UR SeeNote mg/dL (Normal) Comments: Result: NEGATIVE LEUK ESTERASE SeeNote (Normal) Comments: Result: NEGATIVE NITRITE UR SeeNote (Normal) Comments: Result: NEGATIVE OCCULT BLOOD-UR SeeNote (Normal) Comments: Result: NEGATIVE pH UR 5.0 (Normal) Range: 5.0-8.0 PROT DIPSTX SeeNote (Normal) Comments: Result: NEGATIVE SP.GR. DIPSTX >=1.030 (Normal) Range: 1.002-1.030 UROBILI 0.2 EU/dl (Normal) Range: 0.2 - 1.0 :03 TSH 0.52 {uIU/mL} (Normal) Range: 0.34-4.82 :28 CBCD,SMEAR DIFF Comments: DR. WEST ORDERED: LIPID/LIVER. BAND 6 % (Abnormal) Range: 0-5 CELLS COUNTED 100 (Normal) EOS 5 % (Normal) Range: 0-5 HCT 41.7 % (Normal) Range: 40-54 HGB 14.3 g/dL (Normal) Range: 14.0-18.0 LYMPH 17 % (Abnormal) Range: 19-41 MCH 32.7 pg (Abnormal) Range: 27.0-32.0 MCHC 34.3 g/dL (Normal) Range: 32-36 MCV 95.2 fL (Abnormal) Range: 80-94 MONOCYTE 10 % (Normal) Range: 0-10 PLT 184 K/mm3 (Normal) Range: 150-450 PLT EST SeeNote (Normal) Comments: Result: ADEQUATE RBC 4.38 {M/mm3} (Abnormal) Range: 4.6-6.2 RDW 13.5 % (Normal) Range: 11.6-14.6 RED CELL MORPH SeeNote {NORMAL} (Normal) Comments: Result: NORM C&C SEGS 62 % (Normal) Range: 47-70 WBC 6.0 K/mm3 (Normal) Range: 4.4-11.0 :28 COMP METABOLIC Comments: DR. WEST ORDERED: LIPID/LIVER. A/G 1.0 {RATIO} (Normal) Range: 0.9-2.4 ALB 3.2 g/dL (Abnormal) Range: 3.4-5.0 ALK P 62 U/L (Normal) Range: 50-136 ALT 77 [iU]/L (Abnormal) Range: 30-65 AST 36 U/L (Normal) Range: 15-37 BUN 14 mg/dL (Normal) Range: 7-18 BUN/CRE 14.0 {RATIO} (Normal) Range: 10-20 CA 8.4 mg/dL (Abnormal) Range: 8.5-10.1 CL 105 mmol/L (Normal) Range: 98-107 CO2 31.9 mmol/L (Abnormal) Range: 22.0-29.0 CREAT,SERUM 1.0 mg/dL (Normal) Range: 0.8-1.3 GAP 5 (Normal) Range: 5-15 GLOB 3.3 g/dL (Normal) Range: 2.3-3.5 GLU 105 mg/dL (Normal) Range: 70-110 K 4.4 mmol/L (Normal) Range: 3.5-5.1 NA 142 mmol/L (Normal) Range: 136-145 T BILI 0.42 mg/dL (Normal) Range: 0.00-1.00 T PROT 6.5 g/dL (Normal) Range: 6.4-8.2 :28 D BILI 0.15 mg/dL (Normal) Comments: DR. WEST ORDERED: LIPID/LIVER. Range: 0.00-0.30 :28 LIPID Comments: DR. WEST ORDERED: LIPID/LIVER. CHOL 135 mg/dL (Normal) Comments: <200 mg/dL Desirable 200-240 mg/dL Borderline >240 mg/dL High Risk HDL 46 mg/dL (Normal) Comments: Reference Range HDL <40 mg/dL Low HDL Cholesterol HDL >or= 60 mg/dL High HDL Cholesterol LDL 55 mg/dL (Normal) Range: 0-130 TRIG 172 mg/dL (Normal) Comments: Serum Triglycerides Reference Interval Normal <150 mg/dL Borderline high 150 - 199 mg/dL High 200 - 499 mg/dL Very High > or = 500 mg/dL VLDL 34 mg/dL (Normal) Range: 5-40 :28 MICROALBUMIN,UR 14.8 mg/L (Normal) Comments: DR. WEST ORDERED: LIPID/LIVER. :28 PSA,TOT SCREEN 0.33 ng/mL (Normal) Comments: DR. WEST ORDERED: LIPID/LIVER. Range: 0.00-4.00 Comments: This test was performed using the TPSA method for the[employer] chemistry system.Values obtained with different assay methods cannot be usedinterchangably.When changing PSA assays in the course of monito ring apatient, additionaly sequential testing should be carriedout to confirm baseline values. :28 ROUTINE UA Comments: DR. WEST ORDERED: LIPID/LIVER. BILIRUBIN URINE SeeNote (Normal) Comments: Result: NEGATIVE CLARITY CLEAR (Normal) COLOR YELLOW (Normal) GLUCOSE, UR SeeNote (Normal) Comments: Result: NEGATIVE KETONE UR SeeNote mg/dL (Normal) Comments: Result: NEGATIVE LEUK ESTERASE SeeNote (Normal) Comments: Result: NEGATIVE NITRITE UR SeeNote (Normal) Comments: Result: NEGATIVE OCCULT BLOOD-UR SeeNote (Normal) Comments: Result: NEGATIVE pH UR 5.5 (Normal) Range: 5.0-8.0 PROT DIPSTX SeeNote (Normal) Comments: Result: NEGATIVE SP.GR. DIPSTX >=1.030 (Normal) Range: 1.002-1.030 UROBILI 0.2 EU/dl (Normal) Range: 0.2 - 1.0 :28 TSH 0.48 {uIU/mL} (Normal) Comments: DR. WEST ORDERED: LIPID/LIVER. Range: 0.34-4.82 Plan of Care Name Dates Details Instructions Lumbar stenosis with neurogenic claudication : Reviewed [employer] Letter Indication: Lumbar stenosis with neurogenic claudication Hypertension with heart disease : Follow up in 4 weeks Indication: Hypertension with heart disease Hypertension with heart disease : BP MONITORING - SELF Indication: Hypertension with heart disease Carotid stenosis : Continue Current Prescription(s) Indication: Carotid stenosis Hypertension with heart disease : Diet, Exercise, and Wt loss Indication: Hypertension with heart disease 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 Indication: Hypertension with heart disease Carotid stenosis : Cholesterol mgmt Indication: Carotid stenosis Depression, acute : Continue Current Prescription(s) Indication: Depression, acute Annual Medicare Physical WITH abnormal findings (Renamed from Encounter for general adult medical examination with abnormal findings) : fall reduction handout Indication: Annual Medicare Physical WITH abnormal findings (Renamed from Encounter for general adult medical examination with abnormal findings) Annual Medicare Physical WITH abnormal findings (Renamed from Encounter for general adult medical examination with abnormal findings) : elderly packet given Indication: Annual Medicare Physical WITH abnormal findings (Renamed from Encounter for general adult medical examination with abnormal findings) Annual Medicare Physical WITH abnormal findings (Renamed from Encounter for general adult medical examination with abnormal findings) : advance planning information Indication: Annual Medicare Physical WITH abnormal findings (Renamed from Encounter for general adult medical examination with abnormal findings) Annual Medicare Physical WITH abnormal findings (Renamed from Encounter for general adult medical examination with abnormal findings) : *Weight Loss Discussion Indication: Annual Medicare Physical WITH abnormal findings (Renamed from Encounter for general adult medical examination with abnormal findings) Impaired fasting glucose : Follow up in 4 months Indication: Impaired fasting glucose Impaired fasting glucose : Eprescribed prescriptions (G8553) Indication: Impaired fasting glucose Impaired fasting glucose : Follow up in 4 months Indication: Impaired fasting glucose Impaired fasting glucose : *Diabetes Education Indication: Impaired fasting glucose Hypercholesterolemia : Cholesterol mgmt Indication: Hypercholesterolemia 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 Indication: Hypertension with heart disease Hypertension with heart disease : Continue Current Prescription(s) Indication: Hypertension with heart disease Coronary artery disease, non-occlusive : Reviewed [employer] Letter Indication: Coronary artery disease, non-occlusive BMI 40.0-44.9, adult : Eprescribed prescriptions (G8553) Indication: BMI 40.0-44.9, adult Impaired fasting glucose : Follow up in 4 months Indication: Impaired fasting glucose Coronary artery disease, non-occlusive : Reviewed [employer] Letter Indication: Coronary artery disease, non-occlusive Hypertension with heart disease : Diet, Exercise, and Wt loss Indication: Hypertension with heart disease 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 Indication: Hypertension with heart disease Nonsmoker : Follow up if no improvement or if symptoms worsen Indication: Nonsmoker Sinusitis, acute : *URI Treatment Indication: Sinusitis, acute Sinusitis, acute : *URI Symptoms Indication: Sinusitis, acute Sinusitis, acute : *Antibiotic Usage Education - Male Indication: Sinusitis, acute Cough : Eprescribed prescriptions (G8553) Indication: Cough Dysthymic : Continue Current Prescription(s) Indication: Dysthymic Annual Medicare Physical WITH abnormal findings (Renamed from Encounter for general adult medical examination with abnormal findings) : fall reduction handout Indication: Annual Medicare Physical WITH abnormal findings (Renamed from Encounter for general adult medical examination with abnormal findings) Annual Medicare Physical WITH abnormal findings (Renamed from Encounter for general adult medical examination with abnormal findings) : elderly packet given Indication: Annual Medicare Physical WITH abnormal findings (Renamed from Encounter for general adult medical examination with abnormal findings) Annual Medicare Physical WITH abnormal findings (Renamed from Encounter for general adult medical examination with abnormal findings) : *Weight Loss Discussion Indication: Annual Medicare Physical WITH abnormal findings (Renamed from Encounter for general adult medical examination with abnormal findings) Annual Medicare Physical WITH abnormal findings (Renamed from Encounter for general adult medical examination with abnormal findings) : advance planning information Indication: Annual Medicare Physical WITH abnormal findings (Renamed from Encounter for general adult medical examination with abnormal findings) Encounter for screening for malignant neoplasm of colon (Renamed from Special screening for malignant neoplasms, colon) : *Colon Cancer Screening Indication: Encounter for screening for malignant neoplasm of colon (Renamed from Special screening for malignant neoplasms, colon) Hypertension with heart disease : Continue Current Prescription(s) Indication: Hypertension with heart disease Impaired fasting glucose : Follow up in 4 months Indication: Impaired fasting glucose Atrial fibrillation, controlled : Continue Current Prescription(s) Indication: Atrial fibrillation, controlled Coronary artery disease, non-occlusive : Reviewed [employer] Letter Indication: Coronary artery disease, non-occlusive 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 Indication: Hypertension with heart disease Impaired fasting glucose : Reviewed Lab Indication: Impaired fasting glucose Impaired fasting glucose : Diet, Exercise, and Wt loss Indication: Impaired fasting glucose Impaired fasting glucose : *Diabetes Education Indication: Impaired fasting glucose Impaired fasting glucose : Follow up in 4 months Indication: Impaired fasting glucose Coronary artery disease, non-occlusive : Reviewed [employer] Letter Indication: Coronary artery disease, non-occlusive 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 Indication: Hypertension with heart disease Impaired fasting glucose : *Diabetes Education Indication: Impaired fasting glucose Nonsmoker : Eprescribed prescriptions (G8553) Indication: Nonsmoker Depression, acute : Reviewed [employer] Letter Indication: Depression, acute Other chronic pain : Reviewed Lab Indication: Other chronic pain Depression, acute : Follow up in 2 weeks Indication: Depression, acute Accidental fall, initial encounter : Follow up in 1 week Indication: Accidental fall, initial encounter Depression : Reviewed Lab Indication: Depression Depression : Reviewed Diagnostic Tests Indication: Depression Depression : Reviewed [employer] Letter Indication: Depression Cellulitis : Eprescribed prescriptions (G8553) Indication: Cellulitis Cellulitis : Follow up in 1 week Indication: Cellulitis Nonsmoker : Eprescribed prescriptions (G8553) Indication: Nonsmoker Hypertension with heart disease : Reviewed Lab Indication: Hypertension with heart disease Impaired fasting glucose : Follow up in 4 months Indication: Impaired fasting glucose Hypertension with heart disease : Reviewed [employer] Letter Indication: Hypertension with heart disease Hypertension with heart disease : Diet, Exercise, and Wt loss Indication: Hypertension with heart disease 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 Indication: Hypertension with heart disease Hypercholesterolemia : Cholesterol mgmt Indication: Hypercholesterolemia Coronary artery disease, non-occlusive : Continue Current Prescription(s) Indication: Coronary artery disease, non-occlusive Impaired fasting glucose : Flu (Influenza) *: flu Indication: Impaired fasting glucose Impaired fasting glucose : Eprescribed prescriptions (G8553) Indication: Impaired fasting glucose Annual Medicare Phyiscal WITHOUT abnormal findings (Renamed from Encounter for general adult medical examination without abnormal findings) : *Weight Loss Discussion Indication: Annual Medicare Phyiscal WITHOUT abnormal findings (Renamed from Encounter for general adult medical examination without abnormal findings) Annual Medicare Phyiscal WITHOUT abnormal findings (Renamed from Encounter for general adult medical examination without abnormal findings) : fall reduction handout Indication: Annual Medicare Phyiscal WITHOUT abnormal findings (Renamed from Encounter for general adult medical examination without abnormal findings) Annual Medicare Phyiscal WITHOUT abnormal findings (Renamed from Encounter for general adult medical examination without abnormal findings) : elderly packet given Indication: Annual Medicare Phyiscal WITHOUT abnormal findings (Renamed from Encounter for general adult medical examination without abnormal findings) Annual Medicare Phyiscal WITHOUT abnormal findings (Renamed from Encounter for general adult medical examination without abnormal findings) : advance planning information Indication: Annual Medicare Phyiscal WITHOUT abnormal findings (Renamed from Encounter for general adult medical examination without abnormal findings) Encounter for screening for malignant neoplasm of colon (Renamed from Special screening for malignant neoplasms, colon) : *Colon Cancer Screening Indication: Encounter for screening for malignant neoplasm of colon (Renamed from Special screening for malignant neoplasms, colon) Impaired fasting glucose : Follow up in 4 months Indication: Impaired fasting glucose 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 Indication: Hypertension with heart disease Coronary artery disease : Continue Current Prescription(s) Indication: Coronary artery disease Coronary artery disease : Reviewed [employer] Letter Indication: Coronary artery disease Carotid stenosis : Reviewed [employer] Letter Indication: Carotid stenosis Hypercholesterolemia : Cholesterol mgmt Indication: Hypercholesterolemia Impaired fasting glucose : *Diabetes Education Indication: Impaired fasting glucose Hypertension with heart disease : Reviewed Lab Indication: Hypertension with heart disease Elevated liver enzymes : Follow up in 3 weeks Indication: Elevated liver enzymes Coronary artery disease : Continue Current Prescription(s) Indication: Coronary artery disease Elevated liver enzymes : Diet, Exercise, and Wt loss Indication: Elevated liver enzymes Elevated liver enzymes : *Diabetes Education Indication: Elevated liver enzymes Carotid stenosis : Reviewed Diagnostic Tests Indication: Carotid stenosis Carotid stenosis : Continue Current Prescription(s) Indication: Carotid stenosis Acute intractable headache, unspecified headache type : Reviewed Diagnostic Tests Indication: Acute intractable headache, unspecified headache type Nausea : Eprescribed prescriptions (G8553) Indication: Nausea Atrial fibrillation, controlled : Continue Current Prescription(s) Indication: Atrial fibrillation, controlled 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 Indication: Hypertension with heart disease 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 Indication: Hypertension with heart disease Hypertension with heart disease : Continue Current Prescription(s) Indication: Hypertension with heart disease Atrial fibrillation, controlled : Follow up in 1 week- fu on bp adn rate with a fib -- pre-op clearance visit Indication: Atrial fibrillation, controlled Atrial fibrillation, controlled : BP MONITORING -and heart rate -- SELF Indication: Atrial fibrillation, controlled Hypertension with heart disease : Continue Current Prescription(s) Indication: Hypertension with heart disease Impaired fasting glucose : Follow up in 1.5 month- [facility]are [facility] Indication: Impaired fasting glucose Impaired fasting glucose : Follow up in 4 months- general medical visit Indication: Impaired fasting glucose 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 Indication: Hypertension with heart disease Hypercholesterolemia : Cholesterol mgmt Indication: Hypercholesterolemia Coronary artery disease : Reviewed Diagnostic Tests Indication: Coronary artery disease Coronary artery disease : Reviewed [employer]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 Letter: 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 Dr Maria Indication: Coronary artery disease Impaired fasting glucose : Eprescribed prescriptions (G8553) Indication: Impaired fasting glucose Hypercholesterolemia : Cholesterol mgmt Indication: Hypercholesterolemia Coronary artery disease : Continue Current Prescription(s) Indication: Coronary artery disease Coronary artery disease : Reviewed [employer] Letter Indication: Coronary artery disease 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 Indication: Hypertension with heart disease Hypertension with heart disease : Follow up in 4 months Indication: Hypertension with heart disease Impaired fasting glucose : Eprescribed prescriptions (G8553) Indication: Impaired fasting glucose Coronary artery disease : Reviewed [employer] Letter Indication: Coronary artery disease Impaired fasting glucose : Follow up in 4 months Indication: Impaired fasting glucose Impaired fasting glucose : *Diabetes Education Indication: Impaired fasting glucose Hypertension : Eprescribed prescriptions (G8553) Indication: Hypertension BMI 38.0-38.9,adult : Eprescribed prescriptions (G8553) Indication: BMI 38.0-38.9,adult Impaired fasting glucose : Follow up in 3 months Indication: Impaired fasting glucose Hypercholesterolemia : Cholesterol mgmt Indication: Hypercholesterolemia Coronary artery disease : Reviewed [employer] Letter Indication: Coronary artery disease Impaired fasting glucose : Reviewed Lab Indication: Impaired fasting glucose Carotid stenosis : Reviewed Diagnostic Tests Indication: Carotid stenosis Impaired fasting glucose : Reviewed Lab Indication: Impaired fasting glucose Carotid stenosis : Reviewed Diagnostic Tests Indication: Carotid stenosis Encounter for Medicare annual wellness exam : fall reduction handout Indication: Encounter for Medicare annual wellness exam Encounter for Medicare annual wellness exam : elderly packet given Indication: Encounter for Medicare annual wellness exam Encounter for Medicare annual wellness exam : advance planning information Indication: Encounter for Medicare annual wellness exam Encounter for Medicare annual wellness exam : *Weight Loss Discussion Indication: Encounter for Medicare annual wellness exam Impaired fasting glucose : *Diabetes Education Indication: Impaired fasting glucose Hypercholesterolemia : Cholesterol mgmt Indication: Hypercholesterolemia Coronary artery disease : Reviewed Lab Indication: Coronary artery disease Impaired fasting glucose : Eprescribed prescriptions (G8553) Indication: Impaired fasting glucose Need for prophylactic vaccination and inoculation against influenza : Follow up if no improvement or if symptoms worsen Indication: Need for prophylactic vaccination and inoculation against influenza Bronchitis : *URI Treatment Indication: Bronchitis Bronchitis : *URI Symptoms Indication: Bronchitis Bronchitis : *Antibiotic Usage Education - Female Indication: Bronchitis Impaired fasting glucose : Diet, Exercise, and Wt loss Indication: Impaired fasting glucose Bronchitis, acute : *Antibiotic Usage Education - Male Indication: Bronchitis, acute SOB (shortness of breath) on exertion : Reviewed Diagnostic Tests Indication: SOB (shortness of breath) on exertion SOB (shortness of breath) on exertion : Reviewed Lab Indication: SOB (shortness of breath) on exertion Edema : Reviewed Lab Indication: Edema Carotid stenosis : Reviewed Diagnostic Tests Indication: Carotid stenosis Dysthymic : *Antidepressant Usage Indication: Dysthymic Abnormal blood chemistry : Reviewed Lab Indication: Abnormal blood chemistry Abnormal blood chemistry : Reviewed Diagnostic Tests Indication: Abnormal blood chemistry Anemia, unspecified : Anemia: diagnosis and treatment Indication: Anemia, unspecified Fatigue : *fatigue education Indication: Fatigue Pharyngitis, acute : *URI Treatment Indication: Pharyngitis, acute Pharyngitis, acute : Sore throat: diagnosis and treatment Indication: Pharyngitis, acute Bronchitis : *URI Treatment Indication: Bronchitis Bronchitis : URI Symptoms Indication: Bronchitis Dysthymic : Antidepressant Usage Indication: Dysthymic Benign prostatic hyperplasia with urinary obstruction and other lower urinary tract symptoms : FOLLOW UP IN 3 MONTHS Indication: Benign prostatic hyperplasia with urinary obstruction and other lower urinary tract symptoms Coronary artery disease : FOLLOW UP IN 3 MONTHS Indication: Coronary artery disease Planned Observations PSA (PROSTATE SPECIFIC ANTIGEN) (V76.44)Indication: Encounter for screening for malignant neoplasm of prostate (Renamed from Screening for prostate cancer) On: :54 Request CALCIFIDIOL ([id number]) VIT D 25Indication: Vitamin D deficiency On: :37 Request TSH ([id number])Indication: Atrial fibrillation, controlled On: :37 Request URINALYSIS, W/ MICRO ([id number])Indication: Impaired fasting glucose On: :37 Request MICROALBUMIN: CREATININE RATIO ([id number]) AND ([id number])Indication: Impaired fasting glucose On: :37 Request METABOLIC PANEL, COMPREHENSIVE ([id number])Indication: Impaired fasting glucose On: :37 Request LIPOPROTEIN, BLD, BY NMR ([id number])Indication: Impaired fasting glucose On: :37 Request CBC W/AUTO DIFF WBC ([id number])Indication: Impaired fasting glucose On: :37 Request VITAMIN B-12 (CYANOCOBALAMIN) ([id number])Indication: Vitamin B12 deficiency On: :37 Request MAGNESIUM ([id number])Indication: Hypermagnesemia On: :36 Request HgA1C , Office ([id number])Indication: Impaired fasting glucose On: 52-Gfu-800133:57 Request TSH ([id number])Indication: Atrial fibrillation, controlled On: :30 Request URINALYSIS, W/ MICRO ([id number])Indication: Hypertension with heart disease On: :30 Request MICROALBUMIN: CREATININE RATIO ([id number]) AND ([id number])Indication: Hypertension with heart disease On: :30 Request METABOLIC PANEL, COMPREHENSIVE ([id number])Indication: Hypertension with heart disease On: :30 Request LIPID PANEL ([id number])Indication: Coronary artery disease, non-occlusive On: :30 Request CBC W/AUTO DIFF WBC ([id number])Indication: Hypertension with heart disease On: :29 Request VITAMIN B-12 (CYANOCOBALAMIN) ([id number])Indication: Vitamin B12 deficiency On: :29 Request CALCIFIDIOL ([id number]) VIT D 25Indication: Vitamin D deficiency On: :29 Request VITAMIN B-12 (CYANOCOBALAMIN) ([id number])Indication: Vitamin B12 deficiency On: :36 Request CALCIFIDIOL ([id number]) VIT D 25Indication: Vitamin D deficiency On: :35 Request TSH ([id number])Indication: Impaired fasting glucose On: :34 Request URINALYSIS, W/ MICRO ([id number])Indication: Hypertension with heart disease On: :34 Request MICROALBUMIN: CREATININE RATIO ([id number]) AND ([id number])Indication: Hypertension with heart disease On: :34 Request METABOLIC PANEL, COMPREHENSIVE ([id number])Indication: Hypertension with heart disease On: :34 Request LIPID PANEL ([id number])Indication: Hypercholesterolemia On: :34 Request CBC W/AUTO DIFF WBC ([id number])Indication: Hypertension with heart disease On: :34 Request RIBOFLAVIN (B-2) ([id number])Indication: Drug intoxication with delirium On: 42-Zsp-695774:09 Request LIPID PANEL ([id number])Indication: Hypercholesterolemia On: :35 Request VITAMIN B-12 (CYANOCOBALAMIN) ([id number])Indication: Vitamin B12 deficiency On: :28 Request CALCIFIDIOL (17409) VIT D 25Indication: Vitamin D deficiency On: :27 Request MAGNESIUM ([id number])Indication: Hypermagnesemia On: :27 Request FECAL OCCULT- Tubes sent home ([id number])Indication: Encounter for screening for malignant neoplasm of colon (Renamed from Special screening for malignant neoplasms, colon) On: : Request PSA (PROSTATE SPECIFIC ANTIGEN) (V76.44)Indication: Encounter for screening for malignant neoplasm of prostate (Renamed from Screening for prostate cancer) On: : Request TSH ([id number])Indication: Impaired fasting glucose On: :22 Request URINALYSIS, W/ MICRO ([id number])Indication: Impaired fasting glucose On: :22 Request MICROALBUMIN: CREATININE RATIO ([id number]) AND ([id number])Indication: Impaired fasting glucose On: :22 Request METABOLIC PANEL, COMPREHENSIVE ([id number])Indication: Impaired fasting glucose On: : Request LIPID PANEL ([id number])Indication: Hypercholesterolemia On: : Request CBC W/AUTO DIFF WBC ([id number])Indication: Impaired fasting glucose On: : Request CALCIFIDIOL ([id number]) VIT D 25Indication: Vitamin D deficiency On: : Request HEPATIC FUNCTION PANEL ([id number])Indication: Elevated liver enzymes On: 36-Pfm-884483:29 Request METABOLIC PANEL, COMPREHENSIVE ([id number])Indication: Dizzy On: :54 Request CBC W/AUTO DIFF WBC ([id number])Indication: Dizzy On: :54 Request FECAL OCCULT- Tubes sent home ([id number])Indication: Melena On: :52 Request CALCIFIDIOL ([id number]) VIT D 25Indication: Dysthymic On: 56-Adx-390219:52 Request TSH ([id number])Indication: Hypercholesterolemia On: 73-Xje-828834:52 Request URINALYSIS, W/ MICRO ([id number])Indication: Hypertension with heart disease On: 73-Pni-749166:52 Request MICROALBUMIN: CREATININE RATIO ([id number]) AND ([id number])Indication: Hypertension with heart disease On: 04-Mha-967370:52 Request METABOLIC PANEL, COMPREHENSIVE ([id number])Indication: Hypertension with heart disease On: 37-Yku-232692:52 Request LIPID PANEL ([id number])Indication: Hypercholesterolemia On: 56-Sob-704716:52 Request CBC W/AUTO DIFF WBC ([id number])Indication: Hypertension with heart disease On: 46-Wxf-420106:51 Request TSH ([id number])Indication: Impaired fasting glucose On: :45 Request URINALYSIS, W/ MICRO ([id number])Indication: Impaired fasting glucose On: :45 Request MICROALBUMIN: CREATININE RATIO ([id number]) AND ([id number])Indication: Impaired fasting glucose On: :45 Request METABOLIC PANEL, COMPREHENSIVE ([id number])Indication: Impaired fasting glucose On: :45 Request LIPID PANEL ([id number])Indication: Impaired fasting glucose On: :45 Request CBC W/AUTO DIFF WBC ([id number])Indication: Impaired fasting glucose On: :45 Request CALCIFIDIOL (05583) VIT D 25Indication: Impaired fasting glucose On: :55 Request LIPID PANEL ([id number])Indication: Hypertension On: :50 Request TSH ([id number])Indication: Impaired fasting glucose On: :50 Request MICROALBUMIN: CREATININE RATIO ([id number]) AND ([id number])Indication: Hypertension On: :50 Request METABOLIC PANEL, COMPREHENSIVE ([id number])Indication: Hypertension On: :50 Request MICROALBUMIN: CREATININE RATIO ([id number]) AND ([id number])Indication: Hypertension On: :38 Request URINALYSIS ([id number])Indication: Hypertension On: :36 Request CBC WITH MANUAL DIFF ([id number])Indication: Hypertension On: :36 Request Metabolic Panel, Comprehensive ([id number])Indication: Hypertension On: :36 Request Lipid Panel ([id number])Indication: Hypercholesterolemia On: :36 Request MICROALBUMIN: CREATININE RATIO ([id number]) AND ([id number])Indication: Hypertension On: 04-Ddh-573463:57 Request URINALYSIS ([id number])Indication: Hypertension On: 06-Ddr-948725:57 Request CBC WITH MANUAL DIFF ([id number])Indication: Hypertension On: 70-Rlu-699776:56 Request Metabolic Panel, Comprehensive ([id number])Indication: Hypertension On: 11-Zns-551164:56 Request CALCIFEDIOL ([id number])Indication: Hypertension On: 82-Jfo-330373:56 Request TSH ([id number])Indication: Hypertension On: 74-Enu-814861:56 Request Lipid Panel ([id number])Indication: Hypercholesterolemia On: 17-Amp-134946:56 Request Lipid Panel ([id number])Indication: Hypercholesterolemia On: 00-Dwu-976857:13 Request URINALYSIS, W/ MICRO ([id number])Indication: Hypertension On: 6-Rqg-323409:02 Request MICROALBUMIN: CREATININE RATIO ([id number]) AND ([id number])Indication: Impaired fasting glucose On: 7-Lmq-504926:02 Request CBC W/AUTO DIFF WBC ([id number])Indication: Impaired fasting glucose On: 9-Wfd-578170: Request METABOLIC PANEL, COMPREHENSIVE ([id number])Indication: Impaired fasting glucose On: 3-Qcw-917659: Request PSA (PROSTATE SPECIFIC ANTIGEN) (V76.44)Indication: Benign prostatic hyperplasia with urinary obstruction and other lower urinary tract symptoms On: 15-Jan-20149:55 Request CREATINE KINASE TOTAL ([id number])Indication: SOB (shortness of breath) on exertion On: 52-Tfd-903251:32 Request Comments: stat D-Dimer ([id number])Indication: SOB (shortness of breath) on exertion On: :32 Request CBC (Auto) ([id number])Indication: SOB (shortness of breath) on exertion On: 82-Efu-787823:32 Request Troponin I ([id number])Indication: SOB (shortness of breath) on exertion On: 15-Tms-340195:31 Request CPK MB FRACTION ([id number])Indication: SOB (shortness of breath) on exertion On: 91-Uzj-388001:31 Request MICROALBUMIN: CREATININE RATIO ([id number]) AND ([id number])Indication: Impaired fasting glucose On: 67-Sii-305650:10 Request CBC WITH MANUAL DIFF ([id number])Indication: Hypertension On: :04 Request LIPID PANEL ([id number])Indication: Hypercholesterolemia On: 27-Uhd-079976:04 Request METABOLIC PANEL, COMPREHENSIVE ([id number])Indication: Hypertension On: 56-Lfd-251413:04 Request CBC WITH MANUAL DIFF ([id number])Indication: Hypertension On: :28 Request URINALYSIS, W/ MICRO ([id number])Indication: Hypertension On: :28 Request TSH ([id number])Indication: Dysthymic On: : Request PSA (PROSTATE SPECIFIC ANTIGEN) (V76.44)Indication: Benign prostatic hyperplasia with urinary obstruction and other lower urinary tract symptoms On: : Request LIPID PANEL ([id number])Indication: Hypercholesterolemia On: : Request METABOLIC PANEL, COMPREHENSIVE ([id number])Indication: Hypertension On: : Request ASSAY, TROPONIN, QUANTITATIVE (aka Troponin I) ([id number])Indication: SOB (shortness of breath) on exertion On: :08 Request Comments: stat D-Dimer ([id number])Indication: SOB (shortness of breath) on exertion On: :08 Request Comments: stat URINALYSIS, W/ MICRO ([id number])Indication: Edema On: : Request TSH ([id number])Indication: Edema On: : Request METABOLIC PANEL, COMPREHENSIVE ([id number])Indication: Edema On: :06 Request CBC WITH MANUAL DIFF ([id number])Indication: Edema On: : Request URINE BERTHA CULTURE-SUKHWINDER COL COUNT ([id number])Indication: PYELONEPHRITIS, ACUTE NOS On: :25 Request LIPID PANEL ([id number])Indication: Hypercholesterolemia On: :12 Request METABOLIC PANEL, COMPREHENSIVE ([id number])Indication: Hypertension On: :12 Request PSA (PROSTATE SPECIFIC ANTIGEN) (V76.44)Indication: Benign prostatic hyperplasia with urinary obstruction and other lower urinary tract symptoms On: :33 Request URINALYSIS, W/ MICRO ([id number])Indication: Hypertension On: :33 Request CBC WITH MANUAL DIFF ([id number])Indication: Hypertension On: :33 Request METABOLIC PANEL, COMPREHENSIVE ([id number])Indication: Hypertension On: :32 Request LIPID PANEL ([id number])Indication: Hypercholesterolemia On: :32 Request CBC WITH MANUAL DIFF ([id number])Indication: Hypertension On: 9-Fzl-869559:14 Request METABOLIC PANEL, COMPREHENSIVE ([id number])Indication: Hypertension On: 6-Kee-755166:14 Request LIPID PANEL ([id number])Indication: Hypercholesterolemia On: :13 Request CBC, PLATELETS & AUT DIFF ([id number])Indication: Anemia, unspecified On: 2-Rpe-348753:38 Request Comments: Repeat 3wks beginning june Renal function Panel ([id number])Indication: Abnormal blood chemistry On: 7-Gkf-985310:35 Request Comments: repeat 3 wks Beginning june Folate ([id number])Indication: Fatigue On: 91-Dvq-689631:23 Request VITAMIN B-12 (CYANOCOBALAMIN) ([id number])Indication: Fatigue On: :23 Request TSH ([id number])Indication: Fatigue On: :23 Request SED RATE ERYTHROCYTE ([id number])Indication: Fatigue On: :23 Request RHEUMATOID FACTOR-QUANT ([id number])Indication: Fatigue On: :23 Request METABOLIC PANEL, COMPREHENSIVE (10525)Indication: Fatigue On: 20-Tqg-133068:23 Request C-REACTIVE PROTEIN ([id number])Indication: Fatigue On: :23 Request CBC (AUTO) ([id number])Indication: Fatigue On: :23 Request CHIQUI (ANTINUCLEAR ANTIBODY) ([id number])Indication: Fatigue On: :23 Request BERTHA CULTURE-OTHER ([id number])Indication: Pharyngitis, acute On: :48 Request TSH ([id number])Indication: Dysthymic On: :48 Request PSA (PROSTATE SPECIFIC ANTIGEN) (V76.44)Indication: Benign prostatic hyperplasia with urinary obstruction and other lower urinary tract symptoms On: :48 Request METABOLIC PANEL, COMPREHENSIVE ([id number])Indication: Hypertension On: :46 Request LIPID PANEL ([id number])Indication: Hypercholesterolemia On: :46 Request CBC WITH MANUAL DIFF ([id number])Indication: Anemia, unspecified On: :46 Request Metabolic Panel, Basic ([id number])Indication: Edema On: :44 Request FOLIC ACID SERUM ([id number])Indication: Anemia, unspecified On: :43 Request VITAMIN B-12 (CYANOCOBALAMIN) ([id number])Indication: Anemia, unspecified On: :43 Request RETICULOCYTE COUNT MANUL ([id number])Indication: Anemia, unspecified On: :43 Request LDH (LD) (LACTATE DEHYDROGENASE) ([id number])Indication: Anemia, unspecified On: :43 Request IRON BINDING CAPACITY (TIBC) (27142)Indication: Anemia, unspecified On: :43 Request FERRITIN ([id number])Indication: Anemia, unspecified On: :43 Request IRON ([id number])Indication: Anemia, unspecified On: :43 Request CBC WITH MANUAL DIFF ([id number])Indication: Edema On: :40 Request LIPID PANEL ([id number])Indication: Hypercholesterolemia On: :36 Request URINALYSIS W/O MICRO ([id number])Indication: Hypertension On: :36 Request TSH ([id number])Indication: Hypertension On: :36 Request METABOLIC PANEL, COMPREHENSIVE ([id number])Indication: Hypertension On: :36 Request CBC WITH MANUAL DIFF ([id number])Indication: Hypertension On: :36 Request PSA (PROSTATE SPECIFIC ANTIGEN) (V76.44)Indication: Benign prostatic hyperplasia with urinary obstruction and other lower urinary tract symptoms On: :36 Request METABOLIC PANEL, COMPREHENSIVE ([id number])Indication: Hypertension On: :27 Request LIPID PANEL ([id number])Indication: Hypercholesterolemia On: :26 Request HEPATIC FUNCTION PANEL ([id number])Indication: Hypercholesterolemia On: :26 Request HEPATIC FUNCTION PANEL ([id number])Indication: Hypercholesterolemia On: :52 Request LIPID PANEL ([id number])Indication: Hypercholesterolemia On: :52 Request PSA (PROSTATE SPECIFIC ANTIGEN) (V76.44)Indication: Benign prostatic hyperplasia with urinary obstruction and other lower urinary tract symptoms On: 08-Qrt-25812:52 Request URINALYSIS W/O MICRO ([id number])Indication: Hypertension On: 84-Rjy-391475:23 Request TSH ([id number])Indication: Hypertension On: 88-Ioz-988479:23 Request METABOLIC PANEL, COMPREHENSIVE ([id number])Indication: Hypertension On: 57-Jvy-549102:23 Request CBC WITH MANUAL DIFF ([id number])Indication: Hypertension On: 64-Zxr-692009:22 Request LIPID PANEL ([id number])Indication: Hypercholesterolemia On: 38-Lvz-085398:17 Request HEPATIC FUNCTION PANEL ([id number])Indication: Hypercholesterolemia On: 07-Ywm-124938:17 Request METABOLIC PANEL, COMPREHENSIVE ([id number])Indication: Hypertension On: 45-Dyn-646344:50 Request VITAMIN B-12 (CYANOCOBALAMIN) ([id number])Indication: Fatigue On: :03 Request METABOLIC PANEL, COMPREHENSIVE ([id number])Indication: Fatigue On: :03 Request GLUCOSE TOLERANCE TEST (GTT) 2 hour ([id number])Indication: Fatigue On: :02 Request LIPID PANEL ([id number])Indication: Hypercholesterolemia On: 20-Mjr-75244:10 Request Comments: please send to Dr Shore PSA (PROSTATE SPECIFIC ANTIGEN) ([id number])Indication: Benign prostatic hyperplasia with urinary obstruction and other lower urinary tract symptoms On: :10 Request MICROALBUMIN URINE QUANT ([id number])Indication: Hypertension On: :10 Request URINALYSIS W/O MICRO ([id number])Indication: Hypertension On: :10 Request TSH ([id number])Indication: Dysthymic On: :10 Request METABOLIC PANEL, COMPREHENSIVE ([id number])Indication: Hypertension On: :10 Request CBC WITH MANUAL DIFF ([id number])Indication: Hypertension On: :10 Request CBC WITH MANUAL DIFF ([id number])Indication: Hypertension On: :53 Request METABOLIC PANEL, COMPREHENSIVE ([id number])Indication: Hypertension On: :53 Request URINALYSIS W/O MICRO ([id number])Indication: Hypertension On: :53 Request TSH ([id number])Indication: Hypertension On: :53 Request LIPID PANEL ([id number])Indication: Hypercholesterolemia On: 59-Bwh-42649:53 Request Planned Encounters Medical; 3 Week FU - 4 week fu On: 24-May-2018 9:15 [facility] Jazz Rodas DO, DO, Kathleen Medical; 4 Month FU - 4 week fu On: 25-Aug-2018 8:45 [facility] Jazz Rodas DO, DO, Kathleen Planned Procedures [id number] BEHAVIORAL COUNSELING On: 26-Apr-2018 Intent FOR OBESITY, 15 MINUTES (G0447)By: Jazz Rodas DO, DO, Kathleen INTENSIVE BEHAVIORAL THERAPY TO On: 26-Apr-2018 Intent REDUCE CARDIOVASCULAR DISEASE RISK, INDIVIDUAL, RUIA-MH-WIVA, ANNUAL, 15 MINUTES (G0446)By: Jazz Rodas DO, DO, Kathleen Flu Vaccine (Quadrivalent) [id number]: On: 14-Feb-2018 Intent Jazz Rodas DO, DO, Comments: Lot #[id number]-L dltd, IMDose prefilled syringegiven by: Cammy reviewed and ABN signed Jazz ELECTROCARDIOGRAM, COMPLETE (ECG) On: 27-Oct-2017 Intent ([id number])By: Jazz Rodas DO Comments: nsr no acute chg Jazz Rodas DO PNEUM VAC ADLT/IMUMNOSPR, SBC/INTRM On: 17-Dec-2016 Intent ([id number])By: Jazz Rodas DO Comments: Lot:[id number]:05/19/18Dose:0.5mgRoute:imSite:l armGiven By:YVETTE signed Jazz Rodas DO CXNT-EN-MXZS BEHAVIORAL COUNSELING On: 17-Dec-2016 Intent FOR OBESITY, 15 MINUTES (G0447)By: Jazz Rodas DO, DO, Kathleen INTENSIVE BEHAVIORAL THERAPY TO On: 17-Dec-2016 Intent REDUCE CARDIOVASCULAR DISEASE RISK, INDIVIDUAL, ZOQQ-PF-XCSK, ANNUAL, 15 MINUTES (G0446)By: Jazz Rodas DO, DO, Kathleen Flu Vaccine (Quadrivalent) 56716Dw: On: 10-Dec-2016 Intent Jazz Rodas DO, DO, Comments: lot: [id number]: 09/26/17ite/route: L jessika, IMamt: 0.5mlVIS and ABN signed when applicableDUONG Desai ELECTROCARDIOGRAM, COMPLETE (ECG) On: 04-Aug-2016 Intent ([id number])By: Jazz Rodas DO Comments: sinus yoko - no acute chg Jazz Rodas DO Venous Doppler - LeftBy: Avis PERERA, On: 23-Apr-2016 Intent Raya Comments: L lower extremity US DOPPLER VEIN OF EXTREMITY On: 21-Apr-2016 Intent ([id number])By: Raya Albarran MD Comments: US doppler right lower extremety and right butock(cellulitis after laying on buttock for 14 hours, ? DVT) CT - Pelvis (IV Contrast Needed)By: On: 15-Apr-2016 Intent Raya Albarran MD Comments: (WRITE IN NOTE OF CT SCAN:1.make sure pt lays on stomach and not on back while getting CT Scan(Do not compress the buttock)2. Pls fax results to [facility] and Raya Albarran US GROIN ([id number])By: Raya Albarran MD On: 13-Apr-2016 Intent Comments: US soft tissue of left hip, Rule out abcess. Flu Vaccine (Quadrivalent) 52180Eu: On: 12-Dec-2015 Intent Jazz Rodas DO, DO, Comments: lot [id number] exp 10/08/16- R arm Jazz INTENSIVE BEHAVIORAL THERAPY TO On: 12-Dec-2015 Intent REDUCE CARDIOVASCULAR DISEASE RISK, INDIVIDUAL, NBHB-EN-ABOJ, ANNUAL, 15 MINUTES (G0446)By: Jazz Rodas DO, DO, Kathleen UDVE-NT-PUBL BEHAVIORAL COUNSELING On: 12-Dec-2015 Intent FOR OBESITY, 15 MINUTES (G0447)By: Jazz Rodas DO, DO, Kathleen B 12 Injection, 1000 mcg ([id number])By: On: 26-Nov-2015 Intent Jazz Rodas DO, DO, Comments: B12lot:[id number]:ite:lt deltroute:IMdose:1mlD.PRECIOUS Gallo B 12 Injection, 1000 mcg (J3420)By: On: 22-Oct-2015 Intent Jazz Rodas DO, DO, Comments: lot: [id number]: ite/route: L del/IMamt: 1mLVIS signed when applicableDUONG Desai CT - Brain/Head (Without On: 25-Sep-2015 Intent Contrast)By: Jazz Rodas DO, DO, Kathleen US DOPPLER CAROTID BILATERAL On: 25-Sep-2015 Intent ([id number])By: Jazz Rodas DO, DO, Kathleen Cartoid DopplerBy: Irvin LAURA, On: 30-Jul-2015 Intent Jazz Ballard DO Flu Vaccine (Quadrivalent) 80817Zg: On: 15-Jan-2015 Intent Jazz Rodas DO, DO, Comments: Lot:[id number]:10/09/15Dose:0.5mLRoute:IMSite:L DltdGiven By:YVETTE signed Jazz EKG ([id number])By: Jazz Rodas DO On: 13-Jun-2014 Intent Jazz Rodas DO IMFM-AR-TDSX BEHAVIORAL COUNSELING On: 06-Mar-2014 Intent FOR OBESITY, 15 MINUTES (G0447)By: Jazz Rodas DO, DO, Kathleen Prevnar 13 ([id number])By: Irvin LAURA, On: 06-Mar-2014 Intent Jazz Ballard DO Comments: lot [id number] 06/2015location L armroute imgiven by - michelleithVIS and/or ABN signed Cartoid DopplerBy: Rupinder Encarnacion DO On: 15-Jan-2014 Intent FLU VAC, SPLIT, >3 YEARS, INTRAMUSC On: 15-Jan-2014 Intent ([id number])By: Rupinder Encarnacion DO Comments: Lot #:[id number] date:12/2015Amount given:0.5mlRoute: IMSite given: left deltoidGiven by: PRECIOUS Serna ADMINISTRATION OF INFLUENZA VIRUS On: 15-Jan-2014 Intent VACCINE (G0008)By: Rupinder Encarnacion DO FLU VAC, SPLIT, >3 YEARS, INTRAMUSC On: 13-Feb-2013 Intent (63918)By: Rupinder Encarnacion DO Comments: Lot:[id number]:Dose:0.5mLRoute:IMSite:L DltdGiven By:YVETTE bal IMMUNIZ ADMNIN, 1 VAC, SNGL/COMBO On: 13-Feb-2013 Intent (49234)By: Perla Ruano IMMUNIZ ADMNIN, 1 VAC, SNGL/COMBO On: 08-Feb-2012 Intent ([id number])By: Chanel Alamo CNP FLU VAC, SPLIT, >3 YEARS, INTRAMUSC On: 08-Feb-2012 Intent ([id number])By: Chanel Alamo CNP DANA (Ankle Brachial Index) On: 14-Jul-2011 Intent (20372)By: Nieves Masters Comments: at DF desk Spirometry (10395)By: Kael PERERA, On: 01-Jul-2011 Intent Ling Roberts Aerosol Treatment (11934)By: Kael On: 01-Jul-2011 Intent Ling PERERA EKG (36019)By: Ling Scruggs MD On: 01-Jul-2011 Intent DANA (Ankle Brachial Index) On: 21-May-2011 Intent ([id number])By: Rupinder Encarnacion DO Cartoid DopplerBy: Rupinder Encarnacion DO On: 21-May-2011 Intent Comments: august FLU VAC, SPLIT, >3 YEARS, INTRAMUSC On: 10-Feb-2011 Intent (17968)By: Marlys Valencia RN Comments: Lot #: [id number] date: 09/20Amount given: 0.5 mlRoute: IMSite given: left deltoidGiven by: TORITO Gonzales IMMUNIZ ADMNIN, 1 VAC, SNGL/COMBO On: 10-Feb-2011 Intent (52256)By: Marlys Valencia RN Eprescribed prescriptions ([id number])By: On: 24-Nov-2010 Intent Rupinder Encarnacion DO Echo CompleteBy: Mera Mullen LPN On: 04-Aug-2010 Intent Pulse Oximetry (08758)By: Blanco LAURA, On: 24-Jul-2010 Intent Rupinder Bal Comments: 96 Bio Z (55055)By: Rupinder Encarnacion DO On: 24-Jul-2010 Intent Comments: good cardiac output and svr- thoracic fluid ok EKG ([id number])By: Rupinder Encarnacion DO On: 24-Jul-2010 Intent Comments: ekg showed normal sinus rhythym, normal axis, no acute st/t wave changes Echo CompleteBy: Rupinder Encarnacion DO On: 24-Jul-2010 Intent DANA (Ankle Brachial Index) On: 24-Jul-2010 Intent ([id number])By: Rupinder Encarnacion DO Cartoid DopplerBy: Rupinder Encarnacion DO On: 24-Jul-2010 Intent Radiology - Chest- PA and LatBy: On: 24-Jul-2010 Intent Rupinder Encarnacion DO Radiology - Chest- PA and LatBy: On: 09-Jul-2010 Intent Irvin LAURA, Jazz Rodas DO, Jazz Ultrasound - RenalBy: Irvin LAURA, On: 14-May-2010 Intent Jazz Ballard DO Cartoid DopplerBy: Rupinder Encarnacion DO On: 25-Mar-2010 Intent DANA (Ankle Brachial Index) On: 25-Mar-2010 Intent (03935)By: Rupinder Encarnacion DO IMMUNIZ ADMNIN, 1 VAC, SNGL/COMBO On: 15-Jan-2010 Intent ([id number])By: Marlys Valencia RN Comments: Lot #: [id number] date: mount given: 0.5 mlRoute: IMSite given: left deltoidGiven by: Valeriano Green RN FLU VACCINE NO PRESERV 3 & > On: 15-Jan-2010 Intent (30794)By: Marlys Valencia RN Cartoid DopplerBy: Rupinder Encarnacion DO On: 26-Nov-2009 Intent Comments: sept TDAP VACCINE >7 IM (42165)By: On: 22-Sep-2009 Intent Mera Mullen LPN Comments: Lot #[id number]-9/24/12Site-left deltoidgiven by:[facility] Holter Monitor 24 hrsBy: Walker LOU, On: 21-Apr-2009 Intent Chanel Hickey ELECTROCARDIOGRAM, COMPLETE (ECG) On: 21-Apr-2009 Intent (30036)By: Chanel Alamo CNP FLU VAC, SPLIT, >3 YEARS, INTRAMUSC On: 07-Jan-2009 Intent (30546)By: Emili Mullins Comments: Lot #:[id number] date:mount given:0.5mlRoute: IMSite given:left deltGiven by: PRECIOUS Serna IMMUNIZ ADMNIN, 1 VAC, SNGL/COMBO On: 07-Jan-2009 Intent (44078)By: Emili Mullins DANA (Ankle Brachial Index) On: 25-Nov-2008 Intent (67649)By: Uma Altamirano Comments: done>Wf. pt aware. normal findings on both sides. DANA (Ankle Brachial Index) On: 01-Oct-2008 Intent (96066)By: Rupinder Encarnacion DO Cartoid DopplerBy: Rupinder Encarnacion DO On: 01-Oct-2008 Intent Comments: sept Pulse Oximetry (57847)By: Walker LOU, On: 03-Jul-2008 Intent Chanel Hickey Comments: done BC Aerosol Treatment (93098)By: Walker On: 03-Jul-2008 Intent Chanel LOU Comments: done BC FLU VAC, SPLIT, >3 YEARS, INTRAMUSC On: 15-Mar-2008 Intent ([id number])By: Alicia Allen ADMINISTRATION OF INFLUENZA VIRUS On: 15-Mar-2008 Intent VACCINE (G0008)By: Alicia Allen Comments: inj given no complicationslot:[id number]:10/08/08site left deltoddose:0.5mlkathryn EKG (53422)By: Rupinder Encarnacion DO On: 27-Dec-2007 Intent Comments: ekg- with sinus with lvh - left axisd deviation Cartoid DopplerBy: Rupinder Encarnacion DO On: 27-Dec-2007 Intent DANA (Ankle Brachial Index) On: 23-Aug-2007 Intent (65974)By: Xiao Busby DANA (Ankle Brachial Index) On: 08-Aug-2007 Intent ([id number])By: Rupinder Encarnacion DO DANA (Ankle Brachial Index) On: 02-May-2007 Intent (53348)By: Rupinder Encarnacion DO Flu Vaccine, Split IM (40305)By: On: 24-Jan-2007 Intent Rupinder Encarnacion DO Comments: given o.5cc im in right deltoid lot#[id number] exp.10/09/07-aw Pneumovax (09540)By: Rupinder Encarnacion DO On: 24-Jan-2007 Intent A Comments: given 0.5cc in right deltoid lot#[id number] exp. 02/20/08-aw Overnight Pulse Ox(95496)By: Kehinde, On: 21-Dec-2006 Intent Xiao Echo CompleteBy: Rupinder Encarnacion DO On: 06-Dec-2006 Intent Overnight Pulse OX (59371)By: Blanco On: 06-Dec-2006 Intent Rupinder LAURA EKG (92852)By: Rebekah Stuart LPN On: 23-Jun-2006 Intent Comments: needed to be done for a preop which is scheduled the end of the month with dr. romero DANA (Ankle Brachial Index) On: 15-Jun-2006 Intent (38232)By: Milady Jay LPN DANA (Ankle Brachial Index) On: 01-Jun-2006 Intent (44881)By: Rupinder Encarnacion DO Comments: see Mila- these needs precerted as the insurance didnt pay last time- I discussed with her DANA (Ankle Brachial Index) On: 01-Mar-2006 Intent (04287)By: Rupinder Encarnacion DO Planned Medications Vitamin B-12 1000 MCG/ML Injection Solution Ordered: 22-Oct-2015 Pending Jazz Rodas DO, DO, Kathleen Vitamin B-12 1000 MCG/ML Injection Solution Ordered: 26-Nov-2015 Pending Jazz Rodas DO, DO, Kathleen Instructions Name Dates Details Impaired fasting glucose : obesity counseling Indication: Impaired fasting glucose Coronary artery disease, non-occlusive : cardiovascular counseling Indication: Coronary artery disease, non-occlusive Impaired fasting glucose : How to access health information online Indication: Impaired fasting glucose Impaired fasting glucose : How to access health information online - Detail Indication: Impaired fasting glucose Impaired fasting glucose : Patient Instructions Indication: Impaired fasting glucose BMI 40.0-44.9, adult : How to access health information online Indication: BMI 40.0-44.9, adult BMI 40.0-44.9, adult : How to access health information online - Detail Indication: BMI 40.0-44.9, adult BMI 40.0-44.9, adult : Patient Instructions Indication: BMI 40.0-44.9, adult Nonsmoker : How to access health information online Indication: Nonsmoker Nonsmoker : How to access health information online - Detail Indication: Nonsmoker Nonsmoker : Patient Instructions Indication: Nonsmoker Cough : How to access health information online Indication: Cough Cough : How to access health information online - Detail Indication: Cough Cough : Patient Instructions Indication: Cough Impaired fasting glucose : obesity counseling Indication: Impaired fasting glucose Coronary artery disease, non-occlusive : cardiovascular counseling Indication: Coronary artery disease, non-occlusive Nonsmoker : How to access health information online Indication: Nonsmoker Nonsmoker : How to access health information online - Detail Indication: Nonsmoker Nonsmoker : Patient Instructions Indication: Nonsmoker BMI 37.0-37.9, adult : How to access health information online Indication: BMI 37.0-37.9, adult BMI 37.0-37.9, adult : How to access health information online - Detail Indication: BMI 37.0-37.9, adult BMI 37.0-37.9, adult : Patient Instructions Indication: BMI 37.0-37.9, adult Nonsmoker : How to access health information online Indication: Nonsmoker Nonsmoker : How to access health information online - Detail Indication: Nonsmoker Nonsmoker : Patient Instructions Indication: Nonsmoker Depression, acute : Patient Instructions Indication: Depression, acute Nonsmoker : How to access health information online Indication: Nonsmoker Nonsmoker : How to access health information online - Detail Indication: Nonsmoker Nonsmoker : Patient Instructions Indication: Nonsmoker Drug intoxication with delirium : Patient Instructions Indication: Drug intoxication with delirium Cellulitis : How to access health information online Indication: Cellulitis Cellulitis : How to access health information online - Detail Indication: Cellulitis Cellulitis : Patient Instructions Indication: Cellulitis Nonsmoker : How to access health information online Indication: Nonsmoker Nonsmoker : Patient Instructions Indication: Nonsmoker Impaired fasting glucose : How to access health information online Indication: Impaired fasting glucose Impaired fasting glucose : How to access health information online - Detail Indication: Impaired fasting glucose Impaired fasting glucose : Patient Instructions Indication: Impaired fasting glucose Coronary artery disease : cardiovascular counseling Indication: Coronary artery disease Annual Medicare Phyiscal WITHOUT abnormal findings (Renamed from Encounter for general adult medical examination without abnormal findings) : obesity counseling Indication: Annual Medicare Phyiscal WITHOUT abnormal findings (Renamed from Encounter for general adult medical examination without abnormal findings) Impaired fasting glucose : How to access health information online Indication: Impaired fasting glucose Impaired fasting glucose : How to access health information online - Detail Indication: Impaired fasting glucose Impaired fasting glucose : Patient Instructions Indication: Impaired fasting glucose Vitamin D deficiency : How to access health information online Indication: Vitamin D deficiency Vitamin D deficiency : How to access health information online - Detail Indication: Vitamin D deficiency Vitamin D deficiency : Patient Instructions Indication: Vitamin D deficiency Elevated liver enzymes : Patient Instructions Indication: Elevated liver enzymes Nausea : How to access health information online Indication: Nausea Nausea : How to access health information online Indication: Nausea Nausea : Patient Instructions Indication: Nausea Impaired fasting glucose : How to access health information online Indication: Impaired fasting glucose Impaired fasting glucose : How to access health information online - Detail Indication: Impaired fasting glucose Impaired fasting glucose : Patient Instructions Indication: Impaired fasting glucose Impaired fasting glucose : How to access health information online Indication: Impaired fasting glucose Impaired fasting glucose : How to access health information online - Detail Indication: Impaired fasting glucose Impaired fasting glucose : Patient Instructions Indication: Impaired fasting glucose Hypertension : How to access health information online Indication: Hypertension Hypertension : How to access health information online - Detail Indication: Hypertension Hypertension : Patient Instructions Indication: Hypertension BMI 38.0-38.9,adult : How to access health information online Indication: BMI 38.0-38.9,adult BMI 38.0-38.9,adult : How to access health information online - Detail Indication: BMI 38.0-38.9,adult BMI 38.0-38.9,adult : Patient Instructions Indication: BMI 38.0-38.9,adult Coronary artery disease : obesity counseling Indication: Coronary artery disease Impaired fasting glucose : Patient Instructions Indication: Impaired fasting glucose Encounters Review On: 26-Apr-2018 9:50 Encounter Reason: Follow up for chronic medical issues - The patient feels well with minor complaints and is sleeping well. Patient has been compliant with instructions. Current medication use: no side effects and compli ant with dosing regimen. Patient sleeps 7 (6-7) hours per night. Nutrition: balanced diet and supplemental vitamins. The medical issues the patient is following up for include All identified problems be low, blood sugar issues, depression, high cholesterol and hypothyroid. blood pressure range : and weight :. Note for Follow up for chronic medical issues: had back surgery in 2018 and doing much better, [ADDITIONAL REASON] Annual Medicare Exam - The patient had reviewed and updated the family history, medication/s, past medical history and social history. Yes the patient did have a mini mental status exam done today. The activities of daily living the patient needs help with are none. The patient has driven in past 6 months, put area rugs through house and put handrails in bathroom, but the patient has not had fecal incontinence, had urinary incontinence, missed or ran out of medications to soon, fallen in the past 6 months, gotten lost or has a medalert necklace or bracelet. The patient has compl eted the following preventative measures: PSA testing (yearly) and colonoscopy (2011). The patient does have durable power of attorney recruiter and living will. 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 Encounter Diagnosis: Impaired fasting glucose (790.21), Nonsmoker, BMI 40.0-44.9, adult, Lumbar stenosis with neurogenic claudication, Vitamin D deficiency, Atrial fibrillation, controlled, Hypertension with heart disease, Coronary artery disease, non-occlusive, Annual Medicare Physical WITH abnormal findings (Renamed from Encounter for general adult medical examination with abnormal findings), Vitamin B12 deficiency, Hypermagnesemia, Depression, acute, Cerebral microvascular disease, Carotid stenosis, Chronic anticoagulation, Encounter for screening for malignant neoplasm of prostate (Renamed from Screening for prostate cancer), Encounter for screening for malignant neoplasm of colon (Renamed from Special screening for malignant neoplasms, colon) [facility] Office Visit On: 14-Feb-2018 11:23 Encounter Reason: Injections - The medication the patient is here to receive is other (influenza).Encounter Diagnosis: Need for prophylactic vaccination and inoculation against influenza (Renamed from Need for immunization against influenza) End: 15-Feb-2018 9:12 [facility] Phone Encounter On: 09-Jan-2018 17:09 Encounter Diagnosis: Depression, acute End: 09-Jan-2018 17:15 [facility] Phone Encounter On: 04-Nov-2017 10:56 Encounter Diagnosis: Depression, acute End: 04-Nov-2017 10:58 [facility] Office Visit On: 27-Oct-2017 11:51 Encounter Reason: Follow up for chronic medical issues - The patient feels well with minor complaints and is sleeping well. Patient has been compliant with instructions. Current medication use: no side effects and compli End: 28-Oct-2017 13:48 ant with dosing regimen. Patient sleeps 8 (starts to itch when lying down -- pm meds?) hours per night. Nutrition: balanced diet and supplemental vitamins. The medical issues the patient is following up for include All identified problems below, blood sugar issues, depression, high cholesterol and hypothyroid. blood pressure range : and weight :., [ADDITIONAL REASON] Follow up tests - Date: (September and October). Encounter Diagnosis: BMI 40.0-44.9, adult, Nonsmoker, Impaired fasting glucose (790.21), Atrial fibrillation, controlled, Vitamin B12 deficiency, Nutritional counseling, Coronary artery disease, non-occlusive, Hypertension with heart disease, Hypercholesterolemia, Vitamin D deficiency, Lumbar stenosis with neurogenic claudication, Depression, acute [facility] Office Visit On: 15-Apr-2017 6:57 Encounter Reason: Follow up for chronic medical issues - The patient feels well with minor complaints, has good energy level and is sleeping well. Patient has been compliant with instructions. Current medication use: no End: 15-Apr-2017 7:36 side effects and compliant with dosing regimen. Patient sleeps 8 hours per night. Nutrition: balanced diet and supplemental vitamins. The medical issues the patient is following up for include All ident ified problems below, blood sugar issues, depression, high cholesterol and hypothyroid. blood pressure range : and weight :.Encounter Diagnosis: BMI 39.0-39.9,adult, Nonsmoker, Hypertension with heart disease, Atrial fibrillation, controlled, Vitamin D deficiency, Coronary artery disease, non-occlusive, Vitamin B12 deficiency, Impaired fasting glucose (790.21), Nutritional counseling [facility] Office Visit On: 25-Feb-2017 7:07 Encounter Reason: Cold Symptoms - Symptoms include runny nose and dry cough. Onset was 1 week(s) ago. The symptoms occur constantly. The patient describes this as moderate in severity. Symptoms are exacerbated by lying d End: 25-Feb-2017 7:39 own. Associated symptoms include fatigue (not sleeping).Encounter Diagnosis: BMI 39.0-39.9,adult, Cough, Nonsmoker, Sinusitis, acute [facility] Office Visit On: 17-Dec-2016 9:55 Encounter Reason: Annual Medicare Exam - The patient had reviewed and updated the family history, medication/s, past medical history and social history. Yes the patient did have a mini mental status exam done today. The End: 17-Dec-2016 11:37 activities of daily living the patient needs help with are none. The patient has driven in past 6 months, but the patient has not had fecal incontinence, had urinary incontinence, missed or ran out of m edications to soon, fallen in the past 6 months, gotten lost, has a medalert necklace or bracelet, put area rugs through house or put handrails in bathroom. The patient has completed the following preve ntative measures: colonoscopy (?). The patient does have durable power of attorney recruiter and living will. The patient has noticed dropping activities and interests, having problems with memory than others, la ck of energy and thinking most people are better off than them. 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.Encounter Diagnosis: BMI 38.0-38.9,adult, Nonsmoker, Annual Medicare Physical WITH abnormal findings (Renamed from Encounter for general adult medical examination with abnormal findings), Encounter for screening for malignant neoplasm of prostate (Renamed from Screening for prostate cancer), Encounter for screening for malignant neoplasm of colon (Renamed from Special screening for malignant neoplasms, colon), Coronary artery disease, non-occlusive, Impaired fasting glucose (790.21), Dysthymic [facility] Office Visit On: 10-Dec-2016 7:56 Encounter Reason: Follow up for chronic medical issues - The patient feels well with minor complaints, has good energy level and is sleeping well. Patient has been compliant with instructions. Patient sleeps 7 hours per End: 10-Dec-2016 11:15 night. Nutrition: balanced diet and supplemental vitamins. The medical issues the patient is following up for include All identified problems below, blood sugar issues, high blood pressure and high cholesterol. blood pressure range : and weight :. Encounter Diagnosis: Impaired fasting glucose (790.21), BMI 37.0-37.9, adult, Nonsmoker, Obstructive sleep apnea, adult, Hypertension with heart disease, Coronary artery disease, non-occlusive, Atrial fibrillation, controlled, Vitamin D deficiency, Dysthymic, Need for prophylactic vaccination and inoculation against influenza (Renamed from Need for immunization against influenza) [facility] Office Visit On: 04-Aug-2016 7:45 Encounter Reason: Follow up for chronic medical issues - The patient feels well with no complaints, has good energy level (not great but increased since last visit) and is sleeping well. Patient has been compliant with i End: 04-Aug-2016 17:11 nstructions. Current medication use: no side effects and compliant with dosing regimen. Patient sleeps 8 hours per night. Nutrition: balanced diet and supplemental vitamins. The medical issues the patie nt is following up for include All identified problems below, high blood pressure and high cholesterol. blood pressure range : and weight :.Encounter Diagnosis: Nonsmoker, Impaired fasting glucose (790.21), BMI 37.0-37.9, adult, Atrial fibrillation, controlled, Lumbar stenosis with neurogenic claudication, Hypercholesterolemia, Vitamin B12 deficiency, Coronary artery disease, non-occlusive, Vitamin D deficiency, Hypertension with heart disease, Obstructive sleep apnea, adult , Chronic anticoagulation [facility] Office Visit On: 21-Jul-2016 9:29 Encounter Reason: Follow up Meds - The patient feels well with minor complaints. Patient has been compliant with instructions. Current medication use: no side effects and compliant with dosing regimen. Patient sleeps 6 hours per night. End: 21-Jul-2016 10:52 Encounter Diagnosis: Depression, acute, Other chronic pain, Bulging lumbar disc, Degenerative lumbar spinal stenosis, Lumbar stenosis with neurogenic claudication, Altered mental status, unspecified altered mental status type, Medication side effect , Atrial fibrillation, controlled [facility] Office Visit On: 07-Jul-2016 12:58 Encounter Reason: Follow up tests - Date: (06/28).Encounter Diagnosis: BMI 38.0-38.9,adult, Nonsmoker, Chronic fatigue, Depression, acute, Other chronic pain, Macrocytosis without anemia, Lumbar stenosis with neurogenic claudication, End: 07-Jul-2016 13:45 Degenerative lumbar spinal stenosis, Bulging lumbar disc [facility] Lab Order On: 29-Jun-2016 16:18 Encounter Diagnosis: Hyperkalemia End: 29-Jun-2016 16:23 [facility] Office Visit On: 28-Jun-2016 14:21 Encounter Reason: Follow up hospital - Reason for ER visit: note: (passed out. I was washing car and leaned over and went out. I woke up and went home. said he was sluring his words and not right and so she called s End: 28-Jun-2016 16:54 quad.). Patient has been compliant with instructions.Encounter Diagnosis: Depression, Vitamin D deficiency, Atrial fibrillation, controlled, Accidental fall, initial encounter, Drug intoxication with delirium, Chronic fatigue, Altered mental status, unspecified altered mental status type [facility] Phone Encounter On: 23-Apr-2016 13:37 Encounter Diagnosis: Edema (782.3) End: 23-Apr-2016 13:40 [facility] Nurse Visit On: 21-Apr-2016 15:32 Encounter Diagnosis: Cellulitis End: 21-Apr-2016 15:37 [facility] Office Visit On: 21-Apr-2016 9:54 Encounter Reason: Follow up acute care visit - The patient feeling better since last seen and improving. Patient has been compliant with instructions. Current medication use: no side effects and compliant with dosing reg End: 21-Apr-2016 15:31 imen. Patient sleeps 7 hours per night. Nutrition: balanced diet.Encounter Diagnosis: Nonsmoker, BMI 38.0-38.9,adult, Cellulitis, Subcutaneous nodules [facility] Phone Encounter On: 15-Apr-2016 13:19 Encounter Diagnosis: Cellulitis End: 15-Apr-2016 13:34 [facility] Office Visit On: 13-Apr-2016 9:20 Encounter Reason: Skin Problems - The onset of the skin problems has been sudden and they have been occurring for 5 days. The course has been increasing. Lesions are described as red and crusty.Encounter Diagnosis: Nonsmoker, Cellulitis End: 13-Apr-2016 23:23 [facility] Office Visit On: 29-Mar-2016 8:03 Encounter Reason: Follow up for chronic medical issues - The patient feels well with no complaints, has decreased energy level and is sleeping well. Patient has been compliant with instructions. Current medication use: n End: 29-Mar-2016 8:37 o side effects and compliant with dosing regimen. Patient sleeps 7 hours per night. Nutrition: balanced diet and supplemental vitamins. The medical issues the patient is following up for include All saúl ntified problems below, high blood pressure and high cholesterol. blood pressure range : and weight :., [ADDITIONAL REASON] Follow up tests - Date: (03/16/16 blood work). Encounter Diagnosis: Impaired fasting glucose (790.21), Atrial fibrillation, controlled, Coronary artery disease, non-occlusive, Vitamin D deficiency, Hypercholesterolemia, Vitamin B12 deficiency, Obstructive sleep apnea, adult, Hypertension with heart disease, Hypermagnesemia [facility] Phone Encounter On: 15-Jan-2016 14:44 Encounter Diagnosis: Depression End: 15-Jan-2016 14:46 [facility] Office Visit On: 12-Dec-2015 11:25 Encounter Reason: Annual Medicare Exam - The patient had reviewed and updated the family history, medication/s, past medical history and social history. Yes the patient did have a mini mental status exam done today. The End: 12-Dec-2015 16:56 activities of daily living the patient needs help with are none. The patient has driven in past 6 months, but the patient has not had fecal incontinence, had urinary incontinence, missed or ran out of m edications to soon, fallen in the past 6 months, gotten lost, has a medalert necklace or bracelet, put area rugs through house or put handrails in bathroom. The patient has completed the following preve ntative measures: colonoscopy (?). The patient does have living will, but the patient does not have durable power of attorney recruiter. The patient has noticed lack of energy and thinking most people are better off than them. 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 care are knife blade polisher and other:.Encounter Diagnosis: Annual Medicare Phyiscal WITHOUT abnormal findings (Renamed from Encounter for general adult medical examination without abnormal findings), Encounter for screening for malignant neoplasm of prostate (Renamed from Screening for prostate cancer), Encounter for screening for malignant neoplasm of colon (Renamed from Special screening for malignant neoplasms, colon), Nonsmoker, Coronary artery disease, Atrial fibrillation, controlled, Need for prophylactic vaccination and inoculation against influenza, Depression [facility] Office Visit On: 26-Nov-2015 8:02 Encounter Reason: Follow up for chronic medical issues - The patient feels well with minor complaints, has good energy level and is sleeping well. Patient has been compliant with instructions. Current medication use: no End: 26-Nov-2015 9:22 side effects and compliant with dosing regimen. Patient sleeps 7 hours per night. Nutrition: balanced diet and supplemental vitamins. The medical issues the patient is following up for include All ident ified problems below, high blood pressure and high cholesterol. blood pressure range : and weight :.Encounter Diagnosis: Vitamin D deficiency, Impaired fasting glucose (790.21), Hypertension with heart disease, Carotid stenosis, Coronary artery disease, Cerebral microvascular disease, Chronic anticoagulation, Hypercholesterolemia, Nonsmoker, Depression, Vitamin B12 deficiency, Nocturnal leg cramps [facility] Office Visit On: 22-Oct-2015 10:00 Encounter Reason: Follow up tests - Date: (10/20/15 labs).Encounter Diagnosis: Elevated liver enzymes, Hypertension with heart disease, Impaired fasting glucose (790.21), Microalbuminuria, Vitamin D deficiency, Macrocytosis without anemia, End: 22-Oct-2015 11:12 Vitamin B12 deficiency [facility] Office Visit On: 01-Oct-2015 9:54 Encounter Reason: Follow up tests - Date: (09/25/15 labs and 09/29 cartoid and test).Encounter Diagnosis: Acute intractable headache, unspecified headache type, Nausea, Chronic anticoagulation, Carotid stenosis, Elevated liver enzymes, Hyperglycemia, End: 01-Oct-2015 14:29 Cerebral microvascular disease, Coronary artery disease [facility] Phone Encounter On: 29-Sep-2015 13:26 Encounter Diagnosis: Nausea End: 29-Sep-2015 13:28 [facility] Office Visit On: 25-Sep-2015 12:08 Encounter Reason: Flu Like Symptoms - Symptoms include fever, chills and body aches. Onset was sudden 4 day(s) ago. The patient describes this as moderate in severity and worsening.Encounter Diagnosis: Nausea, Dizzy, Melena, Chronic anticoagulation, End: 25-Sep-2015 14:58 Acute intractable headache, unspecified headache type [facility] Office Visit On: 07-Aug-2015 7:27 Encounter Reason: Follow up Meds - The patient feels well with minor complaints, has decreased energy level and is sleeping well. Patient has been compliant with instructions. Current medication use: no side effects.Encounter Diagnosis: End: 07-Aug-2015 8:53 Hypertension with heart disease, Atrial fibrillation, controlled [facility] Office Visit On: 31-Jul-2015 9:01 Encounter Diagnosis: Atrial fibrillation, controlled, Hypertension with heart disease End: 31-Jul-2015 9:47 [facility] Office Visit On: 30-Jul-2015 15:48 Encounter Reason: Follow up for chronic medical issues - The patient does not feel well, has decreased energy level and is sleeping well. Patient has been compliant with instructions. Current medication use: no side effe End: 30-Jul-2015 17:34 cts and compliant with dosing regimen. Patient sleeps 8 hours per night. Nutrition: balanced diet and supplemental vitamins. The medical issues the patient is following up for include All identified pro blems below, blood sugar issues, cardiac issues, high blood pressure and high cholesterol. blood pressure range : and weight :.Encounter Diagnosis: Impaired fasting glucose (790.21), Dysthymic, Obstructive sleep apnea, adult, Hypertension with heart disease, Hypercholesterolemia, Coronary artery disease, Carotid stenosis, Atrial fibrillation, controlled [facility] Office Visit On: 24-Jan-2015 8:47 Encounter Reason: Follow up for chronic medical issues - The patient feels well with minor complaints, has decreased energy level and is sleeping poorly. Patient has been compliant with instructions. Current medication u End: 24-Jan-2015 9:46 se: no side effects and compliant with dosing regimen. Patient sleeps 5 hours per night. Nutrition: balanced diet and supplemental vitamins. The medical issues the patient is following up for include Al l identified problems below, blood sugar issues, high blood pressure and high cholesterol. blood pressure range :, fasting blood sugars : and weight :.Encounter Diagnosis: Impaired fasting glucose (790.21), Coronary artery disease, Hypercholesterolemia, Obstructive sleep apnea, adult, Hypertension with heart disease [facility] Office Visit On: 15-Jan-2015 8:38 Encounter Reason: Injections - The medication the patient is here to receive is other (flushot).Encounter Diagnosis: Need for prophylactic vaccination and inoculation against influenza End: 15-Jan-2015 12:54 [facility] Office Visit On: 19-Sep-2014 8:34 Encounter Reason: Follow up for chronic medical issues - The patient feels well with minor complaints, has good energy level and is sleeping well. Patient has been compliant with instructions. Current medication use: no End: 19-Sep-2014 9:56 side effects and compliant with dosing regimen. Patient sleeps 7 hours per night. Nutrition: balanced diet and supplemental vitamins. The medical issues the patient is following up for include All ident ified problems below, high blood pressure and high cholesterol. blood pressure range : and weight :., [ADDITIONAL REASON] Follow up tests - Date: (09.09.14). Encounter Diagnosis: Hypertension (401.0), Hypercholesterolemia (272.0), Impaired fasting glucose (790.21), Depression/Anxiety (300.4), Coronary Artery Disease (414.00), Obstructive sleep apnea (327.23) [facility] Phone Encounter On: 05-Jul-2014 15:54 Encounter Diagnosis: Hypercholesterolemia (272.0), Hypertension (401.0) End: 05-Jul-2014 15:57 [facility] Office Visit On: 05-Jul-2014 10:02 Encounter Reason: Weight LossEncounter Diagnosis: BMI 38.0-38.9, ADULT (V85.38) End: 05-Jul-2014 15:19 [facility] Office Visit On: 13-Jun-2014 8:00 Encounter Reason: Follow up tests - Date: (06/04/14 labs)., [ADDITIONAL REASON] Follow up for chronic medical issues - The patient feels well with minor complai End: 13-Jun-2014 10:28 nts, has good energy level and is sleeping well. Patient has been compliant with instructions. Current medication use: no side effects and compliant with dosing regimen. Patient sleeps 7 hours per night . Nutrition: balanced diet and supplemental vitamins. The medical issues the patient is following up for include All identified problems below, high blood pressure and high cholesterol. blood pressure range : and weight :. Encounter Diagnosis: Coronary Artery Disease (414.00), Hypercholesterolemia (272.0), Mitral stenosis with insufficiency (394.2), Impaired fasting glucose (790.21) [facility] Office Visit On: 06-Mar-2014 14:39 Encounter Reason: Follow up tests - Date: (01/30/14 labs)., [ADDITIONAL REASON] Annual Medicare Exam - Yes the patient did have a mini mental status exam done t End: 06-Mar-2014 17:33 [place]. The activities of daily living the patient needs help with are none. The patient has driven in past 6 months, but the patient has not had fecal incontinence, had urinary incontinence, missed or ra n out of medications to soon, fallen in the past 6 months, gotten lost, has a medalert necklace or bracelet, put area rugs through house or put handrails in bathroom. The patient has completed the follo wing preventative measures: PSA testing (2013) and colonoscopy (2009). The patient does have durable power of attorney recruiter and living will. The patient has noticed thinking most people are better off than t hem. 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 care are knife blade polisher (DR. Maria) and other: (Pain Management- Dr. Martínez). Encounter Diagnosis: Hypercholesterolemia (272.0), Coronary Artery Disease (414.00), Impaired fasting glucose (790.21), Need for vaccination against Streptococcus pneumoniae, Annual Medicare Physical (V70.0), BMI 38.0-38.9, ADULT (V85.38), Carotid stenosis (433.10) [facility] Phone Encounter On: 18-Feb-2014 11:13 Encounter Diagnosis: Hypercholesterolemia (272.0) End: 18-Feb-2014 11:14 [facility] Office Visit On: 15-Jan-2014 9:14 Encounter Reason: Follow up for chronic medical issues - The patient feels well with no complaints, has good energy level and is sleeping well. Patient has been non-compliant with instructions. Current medication use: no End: 15-Jan-2014 10:03 side effects and compliant with dosing regimen. Patient sleeps 7 hours per night. Nutrition: balanced diet and supplemental vitamins. The medical issues the patient is following up for include All iden tified problems below, depression, high blood pressure and high cholesterol. weight : (233). Note for Follow up for chronic medical issues: No routine labs done for todays visit.- recently had blood p ressures checks twice a day for 2 weeks- and the knife blade polisher didnt feel he needed to increase meds - just saw them in dec and heart doing well-he sees basali for pain manaagement and hegives him fenta ny for back pain working well- had shingle vaccine inlast few years-mood good and getting cpap monitored- he feels wellEncounter Diagnosis: Impaired fasting glucose (790.21), NEED FOR PROPHYLACTIC VACCINATION AND INOCULATION AGAINST INFLUENZA (V04.81), Hypertension (401.0), Obstructive sleep apnea (327.23), Peripheral vascular disease (443.9), Carotid stenosis (433.10), BPH (600.01), Coronary Artery Disease (414.00), Depression/Anxiety (300.4) [facility] Office Visit On: 13-Feb-2013 13:22 Encounter Reason: Injections - The medication the patient is here to receive is other (flu).Encounter Diagnosis: Need for prophylactic vaccination and inoculation against influenza (V04.81) End: 13-Feb-2013 13:39 [facility] Office Visit On: 08-Feb-2012 8:13 Encounter Reason: Cough - The onset of the cough has been sudden. The cough is characterized as productive of mucoid sputum. The amount of sputum produced is scanty. The cough occurs all the time. The symptoms are aggra End: 08-Feb-2012 10:25 vated by supine posture. The symptoms have been associated with hoarseness, while the symptoms have not been associated with fever, headache, runny nose, sore throat or wheezing. the color of the sputum is yellowish.Encounter Diagnosis: BRONCHITIS, NOT SPECIFIED ACUTE OR CHRONIC (490.), Cough (786.2), Need for prophylactic vaccination and inoculation against influenza (V04.81) [facility] Office Visit On: 14-Jul-2011 13:19 Encounter Reason: Nurse procedure visit - The symptoms have been associated with other (DANA testing).Encounter Diagnosis: Peripheral vascular disease (443.9) End: 14-Jul-2011 13:47 [facility] Office Visit On: 01-Jul-2011 11:45 Encounter Diagnosis: SOB (786.05) End: 01-Jul-2011 12:33 [facility] Office Visit On: 21-May-2011 13:25 Encounter Reason: Follow up for chronic medical issues - The patient feels well with no complaints, has good energy level and is sleeping well. Patient has been compliant with instructions. Current medication use: no danis End: 21-May-2011 14:13 e effects and compliant with dosing regimen. Patient sleeps 6 hours per night. Nutrition: balanced diet and supplemental vitamins. The medical issues the patient is following up for include All identifi ed problems below, depression, high blood pressure and high cholesterol. weight : (233). Note for Follow up for chronic medical issues: checking bp once a week at home- he is getting 110/60 at home- h e has been taking pills but nmaybe forgot today- his mood has been good off meds- no chest pain or sob- no change in leg sx no overt claudication, [ADDITIONAL REASON] Follow up, Laboratory Test Results - Date: (03/21). Encounter Diagnosis: Hypercholesterolemia (272.0), Hypertension (401.0), Carotid stenosis (433.10), BPH (600.01), Coronary Artery Disease (414.00), Peripheral vascular disease (443.9), Impaired fasting glucose (790.21) [facility] Annotation/Addendum On: 16-Apr-2011 13:04 Encounter Diagnosis: Unspecified Diagnosis End: 16-Apr-2011 13:05 [facility] Office Visit On: 19-Mar-2011 12:57 Encounter Reason: Follow up Meds - The patient feels well with minor complaints, has good energy level and is sleeping well. Patient has been compliant with instructions. Current medication use: no side effects and compl End: 19-Mar-2011 13:29 iant with dosing regimen. Patient sleeps 7 hours per night. Note for Follow up Meds: Pt has weaned off the Effexor 75mg and has 1 more week of the 37.5mg till weaned off that. He can tell a difference being off the higher dose, less irritable and aggitated. Pt's thinks he is a little more anxious though.- he is less depressed and agitated than he was on the meds - it really didnt agree with himEncounter Diagnosis: Hypertension (401.0), Acute Conjuctivitis (372.01), Depression/Anxiety (300.4), BPH (600.01), Hypercholesterolemia (272.0), Carotid stenosis (433.10) [facility] Office Visit On: 10-Feb-2011 11:54 Encounter Reason: Follow up Meds - The patient does not feel well, has decreased energy level and is sleeping poorly. Patient has been compliant with instructions. Current medication use: no side effects, compliant with End: 15-Feb-2011 8:35 dosing regimen and not considered effective by patient. Patient sleeps 7 hours per night. Impact of disease: emotional impact-moderate. Nutrition: balanced diet and supplemental vitamins. Note for Foll ow up Meds: he says that the effexor has not helped at all and wants to see if there is something different that h could be changed to. He is feeling very irritable and fatigued.- easily mad and agitated - nonmotivated- not sleeping but feels lazy Encounter Diagnosis: Need for prophylactic vaccination and inoculation against other specified disease (V05.8), Need for prophylactic vaccination and inoculation against influenza (V04.81), Depression/Anxiety (300.4) [facility] Office Visit On: 24-Nov-2010 9:01 Encounter Reason: Follow up Meds - The patient feels well with minor complaints (Pt doesnt feel the effexor has helped totally, he states he doesnt feel as angry as before but he still has no ambition, ??but his say End: 24-Nov-2010 9:41 s she can see a alot of difference. ), has decreased energy level and is sleeping well. Patient has been compliant with instructions. Current medication use: no side effects and compliant with dosing re gimen. Patient sleeps 10 hours per night. Note for Follow up Meds: mood is improving not perfect- less snappy- not getting side effeects, [ADDITIONAL REASON] Cough - The onset of the cough has been 1 weeks. The cough is characterized as productive of mucopurulent sputum. The amount of sputum produced is less than a half a cup per day. The cough occurs all the time. The symptoms are aggravated by supine posture, but not by exercise. The symptoms have been associated with hoarseness, while the symptoms have not been associated with dyspnea, fever, headache, runny nose, sore throat or wheezing. the color of the sputum is yellowish. Encounter Diagnosis: Depression/Anxiety (300.4), Bronchitis,Acute (466.0), Acute Conjuctivitis (372.01) [facility] Office Visit On: 26-Oct-2010 15:10 Encounter Reason: Depression - The onset of the depression has been gradual and has been occurring in a persistent pattern for months. The course has been increasing. The depression is described as feeling blue (and get End: 26-Oct-2010 15:58 s very aggitated), sad, nervous and tired. The symptoms have been associated with depression in the past, feeling tired and lack of energy, while the symptoms have not been associated with change in job , of a loved one, difficulty sleeping, financial difficulties, loss of libido, marital problems, recent changes in life, recent divorce, suicidal attempts or suicidal thoughts. Note for Depressio n : when first started taking he did ok- but seems to be waning off Encounter Diagnosis: Depression/Anxiety (300.4) [facility] Historical Summary On: 19-Oct-2010 18:19 Encounter Diagnosis: Hypercholesterolemia (272.0) End: 19-Oct-2010 18:23 [facility] Office Visit On: 17-Sep-2010 7:32 Encounter Reason: Follow up, Diagnostic Procedure Results - Diagnostic tests include cardiovascular nuclear scan, X-Ray and ECHO. Date: (08/2010). Follow up visit with no current symptoms.Encounter Diagnosis: Edema (782.3), SOB (786.05), End: 17-Sep-2010 8:11 Carotid stenosis (433.10), PYELONEPHRITIS, ACUTE NOS (590.10) [facility] Annotation/Addendum On: 04-Aug-2010 17:31 Encounter Diagnosis: Edema (782.3) End: 04-Aug-2010 17:33 [facility] Phone Encounter On: 30-Jul-2010 11:05 Encounter Diagnosis: Unspecified Diagnosis End: 30-Jul-2010 11:22 [facility] Office Visit On: 24-Jul-2010 8:36 Encounter Reason: Follow up for chronic medical issues - The patient feels well with minor complaints (irritable and garcia alot- not taking the celexa cause it made him feel worse- wants to talk about something different End: 26-Jul-2010 20:00 to take. Edema recurring in lower extremities-), has decreased energy level and is sleeping poorly (wakes up early and cant fall back asleep). Patient has been compliant with instructions. Current med ication use: no side effects and compliant with dosing regimen. Patient sleeps 5 hours per night. Nutrition: balanced diet and supplemental vitamins. The medical issues the patient is following up for i nclude All identified problems below, depression, high blood pressure and high cholesterol. weight : (217). Note for Follow up for chronic medical issues: didnt do the followup cxr encoruage him to do so, [ADDITIONAL REASON] Follow up, Laboratory Test Results - Date: (06/30/10). Encounter Diagnosis: Bacterial pneumonia, unspecified (482.9), Depression/Anxiety (300.4), Edema (782.3), Peripheral vascular disease (443.9), Carotid stenosis (433.10), Hypertension (401.0), Coronary Artery Disease (414.00), SOB (786.05) [facility] Office Visit On: 14-May-2010 7:27 Encounter Reason: Follow up ER - Reason for hospitalization pneumonia and note: (was also having back and side pain.). Hospitalization details include: abnormal labs (found he was dehydrated and kidney infection.) and u End: 14-May-2010 9:57 rinary tract infection Patient has been compliant with instructions. Current medication use: no side effects. The patient feels well with minor complaints (Still has soreness on left kidney area and adelina athing is short.), has good energy level and is sleeping well. Patient sleeps 6 hours per night. Impact of disease: no overall impact. Nutrition: balanced diet and supplemental vitamins.Encounter Diagnosis: Bacterial pneumonia, unspecified (482.9), PYELONEPHRITIS, ACUTE NOS (590.10), Hypercholesterolemia (272.0) [facility] Office Visit On: 25-Mar-2010 8:17 Encounter Reason: Follow up for chronic medical issues - The patient feels well with no complaints, has good energy level and is sleeping poorly (wakes up early and cant fall back asleep). Patient has been compliant with End: 25-Mar-2010 9:14 instructions. Current medication use: no side effects and compliant with dosing regimen. Patient sleeps 5 hours per night. Nutrition: balanced diet and supplemental vitamins. The medical issues the pat ient is following up for include All identified problems below, depression, high blood pressure and high cholesterol. weight : (home-209). Note for Follow up for chronic medical issues: Pt had fallen the day after thanksgiving and injured his back. Pt is seeing Dr. Blake in [place] for this and currently getting injections and seeing chiropracter.- since injection though issues with headache mild a nd bp and sleep no chest pain has appt with cardio in may and no leg claudication- mood is good, [ADDITIONAL REASON] Follow up, Laboratory Test Results - Date: (03/14/10). Encounter Diagnosis: Hypertension (401.0), Carotid stenosis (433.10), BPH (600.01), Depression/Anxiety (300.4), Hypercholesterolemia (272.0), Coronary Artery Disease (414.00), Peripheral vascular disease (443.9) [facility] Office Visit On: 15-Jan-2010 12:38 Encounter Reason: Injections - The medication the patient is here to receive is other (flu vaccine).Encounter Diagnosis: Need for prophylactic vaccination and inoculation against influenza (V04.81) End: 15-Jan-2010 13:07 [facility] Office Visit On: 26-Nov-2009 8:01 Encounter Reason: Follow up for chronic medical issues - The patient feels well with no complaints ,has good energy level and is sleeping well. Patient has been compliant with instructions. Current medication use: no danis End: 26-Nov-2009 8:36 e effects and compliant with dosing regimen. Patient sleeps 8 hours per night. Nutrition: balanced diet and supplemental vitamins. The medical issues the patient is following up for include All identifi ed problems below ,depression ,high blood pressure and high cholesterol. weight : (206). Note for Follow up for chronic medical issues: he is feeling well- his bp is good- no issues with prostate he s aw Dr Shore and heart doing well- no gerd- and mood is good- sleeping well labs stable no claudication-, [ADDITIONAL REASON] Follow up, Laboratory Test Results - Date: (10/30/09). Encounter Diagnosis: Carotid stenosis (433.10), Peripheral vascular disease (443.9), Hypercholesterolemia (272.0), Hypertension (401.0), Coronary Artery Disease (414.00), Depression/Anxiety (300.4), BPH (600.01) [facility] Office Visit On: 22-Sep-2009 16:36 Encounter Diagnosis: Unspecified Diagnosis End: 22-Sep-2009 17:00 [facility] Office Visit On: 14-Jul-2009 14:20 Encounter Reason: Follow up for chronic medical issues - The patient feels well with no complaints ,has good energy level and is sleeping well. Patient has been compliant with instructions. Current medication use: no danis End: 14-Jul-2009 15:14 e effects and compliant with dosing regimen. Patient sleeps 8 hours per night. Nutrition: balanced diet and supplemental vitamins. The medical issues the patient is following up for include All identifi ed problems below ,depression ,high blood pressure and high cholesterol. weight :. Note for Follow up for chronic medical issues: he saw Kelly - michell chavez adjuxted- bp is good- and sleeping well and mood is good- noissues with ticker- last at cardio in last few mos- kidney function and blood count begtter- his fatigue sx are gone, [ADDITIONAL REASON] Follow up, Laboratory Test Results - Date: (07/05/09 see face sheet). Encounter Diagnosis: Hypertension (401.0), Depression/Anxiety (300.4), Coronary Artery Disease (414.00), Hypercholesterolemia (272.0), Carotid stenosis (433.10), Anemia(285.9) [facility] Office Visit On: 13-May-2009 12:51 Encounter Reason: Follow up, Diagnostic Procedure Results - Diagnostic tests include MRI ,treadmill exercise stress test and ECHO. Date: (04/26/09). Follow up visit with no current symptoms. There is a family history of c End: 13-May-2009 14:20 ardiovascular disease (parents, brother) and myocardial infarction before age 55 (father) , while there is no family history of breast cancer ,cystic fibrosis ,Down's syndrome or mental retardation. Pas t medical history includes cardiovascular disease ,coronary artery disease ,emotional problems and hypertension. , [ADDITIONAL REASON] Follow up, Laboratory Test Results - Date: (05/09/09). Current symptoms/reason fo r visit include/s Follow up visit with no current symptoms. There is a family history of cardiovascular disease (parents, brother) and myocardial infarction before age 55 (father) , while there is no fa gerardo history of breast cancer ,cystic fibrosis ,Down's syndrome or mental retardation. Past medical history includes anemia ,cardiovascular disease (carotid stenosis) ,coronary artery disease ,elevated cholesterol ,emotional problems (depression/anxiety) ,hypertension ,peripheral vascular disease and other (ob. sleep apnea). Encounter Diagnosis: Abnormal blood chemistry (790.6), Obstructive sleep apnea (327.23), Anemia(285.9) [facility] Office Visit On: 21-Apr-2009 12:59 Encounter Reason: Fatigue - The onset of the fatigue has been sudden and has been occurring in a persistent pattern for 2 weeks. The course has been constant. The fatigue occurs all the time and interferes with normal da End: 21-Apr-2009 14:11 [facility] activities. The symptoms have been associated with excessive sleeping (17 hrs yesterday) ,gasping in sleep (wears a c-pap) ,sleep apnea (being tx) ,sore throat (resolved- yesterday) ,trouble concent rating ,use of anti-depressants (cymbalta) and use of methyldopa (provigil), while the symptoms have not been associated with abdominal pain ,anorexia ,arthralgia ,chest pain ,chills ,chronic disease ,c ough ,decreased libido ,depression ,diplopia ,dyspnea ,edema ,fever ,headache ,hotflashes ,lymphadenopathy ,muscle weakness ,myalgia ,nasal stuffiness ,nocturia ,pallor ,phlegm or runny nose. Encounter Diagnosis: Fatigue (780.79), Obstructive sleep apnea (327.23), Abnormal EKG(794.31), CANDIDIASIS, MOUTH (THRUSH) (112.0) [facility] Office Visit On: 14-Apr-2009 8:34 Encounter Reason: Sore throat - The onset of the sore throat has been sudden and has been occurring in a persistent pattern for 3 days. The course has been unchanged. The symptoms have been associated with change in voic End: 14-Apr-2009 9:05 e ,difficulty in swallowing ,runny nose ( always) and swelling of neck glands, while the symptoms have not been associated with foreign body sensation in throat ,chest pain ,chills ,cough ,difficulty in breathing ,ear pain ,fever ,non-purulent sputum ,post-nasal drip ,purulent sputum ,recent contact with a person with sore throat ,sensation of tightness in substernal area or sinus pain. Encounter Diagnosis: ACUTE PHARYNGITIS (462.), CANDIDIASIS, MOUTH (THRUSH) (112.0) [facility] Historical Summary On: 03-Feb-2009 12:40 [facility] End: 03-Feb-2009 12:41 Office Visit On: 07-Jan-2009 8:18 Encounter Reason: Follow up for chronic medical issues - The patient feels well with minor complaints (grouchy and irritatble- alot of stuff going on in life) ,has good energy level and is sleeping well. Patient has been End: 07-Jan-2009 8:56 compliant with instructions. Current medication use: no side effects and compliant with dosing regimen. Patient sleeps 8 hours per night. Nutrition: balanced diet ,supplemental vitamins and low salt di et. The medical issues the patient is following up for include All identified problems below ,depression (anxiety) ,high blood pressure ,high cholesterol ,other (jd, ddd, cad, bph) and peripheral vascu lar disease. Note for Follow up for chronic medical issues: he is retired but is doing more than he should- alot of stuff -too many issues- alot of work at home- - his bp is good and abis are good- fe els overwhelmed- he is willing to retry cymbalta again and see how he doesEncounter Diagnosis: Hypertension (401.0), Hypercholesterolemia (272.0), Depression/Anxiety (300.4), Anemia(285.9), Need for prophylactic vaccination and inoculation against influenza (V04.81), Peripheral vascular disease (443.9), Carotid stenosis (433.10), BPH (600.01) [facility] Office Visit On: 25-Nov-2008 9:06 Encounter Diagnosis: Peripheral vascular disease (443.9) End: 25-Nov-2008 9:54 [facility] Office Visit On: 04-Oct-2008 8:20 [facility] End: 06-Oct-2008 20:32 Office Visit On: 01-Oct-2008 8:06 Encounter Reason: Follow up for chronic medical issues - The patient feels well with minor complaints (edema) ,has good energy level and is sleeping well. Patient has been compliant with instructions. Current medication End: 01-Oct-2008 8:53 use: no side effects and compliant with dosing regimen. Patient sleeps 8 hours per night. Nutrition: balanced diet ,supplemental vitamins and low salt diet. The medical issues the patient is following u p for include All identified problems below ,depression (anxiety) ,high blood pressure ,high cholesterol and peripheral vascular disease. Note for Follow up for chronic medical issues: no blood in sto ol and not giveing blood takes a multivitamin- not alot of salt- no change in leg sx, [ADDITIONAL REASON] Follow up, Laboratory Test Results - Date: (09/27/08). Note for Follow up, Laboratory Test Results: on paper Encounter Diagnosis: Edema (782.3), Anemia(285.9), Coronary Artery Disease (414.00), BPH (600.01), Peripheral vascular disease (443.9), Hypercholesterolemia (272.0), Hypertension (401.0), Depression/Anxiety (300.4), Obstructive sleep apnea (327.23), Carotid stenosis (433.10) [facility] Office Visit On: 03-Jul-2008 7:48 Encounter Reason: Upper respiratory infection - The duration of the symptoms are 3 days The course has been constant. The upper respiratory infection has no relieving factors. Associated features include cough and nasal discharge/stuffy nose. End: 03-Jul-2008 8:30 Encounter Diagnosis: BRONCHITIS, NOT SPECIFIED ACUTE OR CHRONIC (490.), Cough (786.2), Wheezing (786.07) [facility] Office Visit On: 12-Jun-2008 9:10 Encounter Reason: Follow up for chronic medical issues - The patient feels well with no complaints ,has good energy level and is sleeping well. Patient has been compliant with instructions. Current medication use: no danis End: 12-Jun-2008 9:42 e effects and compliant with dosing regimen. Patient sleeps 7 hours per night. Nutrition: balanced diet ,supplemental vitamins and low salt diet. The medical issues the patient is following up for inclu de All identified problems below ,depression (anxiety) ,high blood pressure ,high cholesterol ,other (ddd, cad, jd, bph, fatigue, edema, carotid stenosis, vertigo) and peripheral vascular disease. bloo d pressure range : (110's/60's to 130's/80s) and weight :. Note for Follow up for chronic medical issues: he is feeling pretty good and had scope which was neg except hemmies- he is back to tops-- and woorking on weight- his heart has been good- perfect bp and chol great and doing ifne on crestor without muscle aching- no more vertigo-- -- mood has been good and sleeping wellEncounter Diagnosis: Hypercholesterolemia (272.0), Hypertension (401.0) , Coronary Artery Disease (414.00), Peripheral vascular disease (443.9), BPH (600.01) [facility] Historical Summary On: 07-Jun-2008 11:37 [facility] End: 07-Jun-2008 11:38 Historical Summary On: 15-Mar-2008 10:18 Encounter Diagnosis: Need for prophylactic vaccination and inoculation against influenza (V04.81) End: 27-May-2008 9:29 [facility] Office Visit On: 06-Mar-2008 8:56 Encounter Reason: Follow up for chronic medical issues - The patient feels well with minor complaints (hemmroid bleeding) ,has good energy level and is sleeping well. Patient has been compliant with instructions. Current End: 06-Mar-2008 9:34 medication use: no side effects and compliant with dosing regimen. Patient sleeps 7 hours per night. Nutrition: balanced diet ,supplemental vitamins and low salt diet. The medical issues the patient is following up for include All identified problems below ,depression (anxiety) ,high blood pressure ,high cholesterol ,other (ddd, bph, fatigue, jd) and peripheral vascular disease. blood pressure range : (110's/70's to 140's/80's) and weight :. Note for Follow up for chronic medical issues: only high in 140 upon waking prior to meds- rest of day down in 110 range- he is back on cresxtor for 2 days becuase pravachol not enough- he hasnt had any problems, [ADDITIONAL REASON] Follow up, Laboratory Test Results - Date: (02/08/08). , [ADDITIONAL REASON] Rectal bleeding - The onset of the rectal bleeding has been sudden and has been occurring in an intermittent pattern for 3 weeks. The course has been recurrent. The rectal bleeding is characterized as blood streaking of toilet paper and bloody toilet bowl water. The symptoms have b een associated with use of aspirin, while the symptoms have not been associated with abdominal pain ,change in bowel habits ,hard stools ,ingestion of beets ,ingestion of bismuth ,ingestion of iron pill s ,nausea ,use of anti-coagulants or vomiting. Note for Rectal bleeding: all bright red blood- -- he is due for colonscopy in the next year- had itch in rectum- tried cream-- no abd pain- the blood is coming and going--- not mixed in stool Encounter Diagnosis: Carotid stenosis (433.10), Vertigo (780.4), Rectal Bleeding(569.3), Hypertension (401.0), Hypercholesterolemia (272.0), Coronary Artery Disease (414.00), Depression/Anxiety (300.4) [facility] Office Visit On: 27-Dec-2007 15:52 Encounter Reason: high blood pressure - The patient has experienced high blood pressure for 45 minutes. The symptoms have been associated with family history of hypertension and sleep apnea symptoms, while the symptoms h End: 28-Dec-2007 23:02 ave not been associated with anxiety ,excessive caffeine intake ,obesity ,use of nasal decongestants or use of steroids. blood pressure range : (170/70). Note for high blood pressure: no double vision - was sitting and got up to walk into kitchen and six steps and got vertigo-- and nauseated- flushed---- off balance in general-- sat down bp was high -- minor episode 6 mos ago-- he looked up fast and got dizzy--- no weakness or numbness in arms or legs-- felt vertigo for an hour --no chest pain - not sob-- today better but still looks some flushEncounter Diagnosis: Vertigo (780.4), Hypertension (401.0) [facility] Office Visit On: 06-Dec-2007 7:56 Encounter Reason: Follow up for chronic medical issues - The patient feels well with no complaints ,has good energy level and is sleeping well. Patient has been compliant with instructions. Current medication use: no danis End: 06-Dec-2007 8:30 e effects and compliant with dosing regimen. The medical issues the patient is following up for include All identified problems below ,depression (anxiety) ,high blood pressure ,high cholesterol ,other (ddd, bph, cad, edema, fatigue) and peripheral vascular disease. weight :. Note for Follow up for chronic medical issues: he hasnt changed diet but had to change crestor to pravastatin- no aching on t he pravastatin- his fatigue is good and mood is good, [ADDITIONAL REASON] Follow up, Laboratory Test Results - Date: (12/05/07- on paper). Encounter Diagnosis: Peripheral vascular disease (443.9), Hypercholesterolemia (272.0), Depression/Anxiety (300.4), Hypertension (401.0) [facility] Office Visit On: 23-Aug-2007 8:47 Encounter Diagnosis: Peripheral vascular disease (443.9) End: 23-Aug-2007 10:05 [facility] Office Visit On: 08-Aug-2007 8:22 Encounter Reason: Follow up for chronic medical issues - The patient feels well with no complaints ,has good energy level and is sleeping well. Patient has been compliant with instructions. Current medication use: no danis End: 08-Aug-2007 9:03 e effects and compliant with dosing regimen. Nutrition: balanced diet ,supplemental vitamins and low salt diet. The medical issues the patient is following up for include All identified problems below , depression (anxiety) ,high blood pressure ,high cholesterol ,other (cad, ddd, bph, edema, fatigue) and peripheral vascular disease. blood pressure range : (110's/70's) and weight :. Note for Follow up for chronic medical issues: he doesnt feel like bp high and has been taking all his meds- he saw Linnea and had prostate exam and Dr Shore increased his pravachol to 40 mg - he is having no problems wi th the pravachol- mood is good- he had colonsocpy in early 50 s no polyps- no new leg sx, [ADDITIONAL REASON] Follow up, Laboratory Test Results - Date: (07/21/07). Encounter Diagnosis: Hypertension (401.0), Peripheral vascular disease (443.9), Hypercholesterolemia (272.0), Obstructive sleep apnea (327.23), BPH (600.01), Depression/Anxiety (300.4) [facility] Office Visit On: 02-May-2007 9:41 Encounter Reason: Follow up for chronic medical issues - The patient feels well with no complaints ,has good energy level and is sleeping well. Patient has been compliant with instructions. Current medication use: no danis End: 02-May-2007 10:25 e effects and compliant with dosing regimen. Nutrition: inappropriate diet ,supplemental vitamins and low salt diet. The medical issues the patient is following up for include All identified problems be low ,depression (anxiety) ,high blood pressure ,high cholesterol ,other (ddd, fatigue, cad, bph, edema) and peripheral vascular disease. blood pressure range : (110's/60's) and weight :. Note for Geovanimarybeth w up for chronic medical issues: he did get cpap retritatrrated and is doing good- he feels weell he hasnt been working hard on this-- bp is great-- mood is good-- -- he doesnt feel his breathing is an issue-- if gains wt feels this way- doesnt think an issue an takes a stress test this month - he is due for labs for cholEncounter Diagnosis: Hypertension (401.0), Hypercholesterolemia (272.0), Depression/Anxiety (300.4), Peripheral vascular disease (443.9), BPH (600.01), Coronary Artery Disease (414.00) [facility] Phone Encounter On: 30-Jan-2007 19:09 [facility] End: 30-Jan-2007 19:10 Office Visit On: 24-Jan-2007 10:01 Encounter Reason: Follow up, Diagnostic Procedure Results - Diagnostic tests include ECHO. Date: (01/16/07- on paper chart). Note for Follow up, Diagnostic Procedure Results: not tired with work but does feel sleepy- ri End: 24-Jan-2007 11:15 s mood is ok - maybe jumpy - but he doesnt feel he needs mood meds, [ADDITIONAL REASON] Follow up, Laboratory Test Results - Date: (12/28/06). Encounter Diagnosis: Hypertension (401.0), Family history of diabetes mellitus (V18.0), Obstructive sleep apnea (327.23) [facility] Nurse Visit On: 21-Dec-2006 15:23 Encounter Diagnosis: Obstructive sleep apnea (327.23) End: 22-Dec-2006 22:07 [facility] Office Visit On: 06-Dec-2006 8:17 Encounter Reason: Follow up Meds - The patient feels well with minor complaints (cymbalta was causing fatigue) ,has decreased energy level and is sleeping poorly. Patient has been compliant with instructions. Current med End: 06-Dec-2006 9:05 ication use: non-compliant with dosing regimen (stopped taking the cymbalta d/t the fatigue). Note for Follow up Meds: since his prostate sx in novs had more fatigue and wt up 30 pounds-- and little swelling in feet, [ADDITIONAL REASON] Follow up, Laboratory Test Results - Date: (11/22/06). Encounter Diagnosis: Hypertension (401.0), Obstructive sleep apnea (327.23), Fatigue (780.79), Edema (782.3), Depression/Anxiety (300.4) [facility] Office Visit On: 11-Oct-2006 12:36 Encounter Reason: Follow up for chronic medical issues - The patient feels well with no complaints ,has good energy level and is sleeping well. Patient has been compliant with instructions. Current medication use: no danis End: 11-Oct-2006 13:03 e effects and compliant with dosing regimen. Patient sleeps 7 hours per night. Nutrition: balanced diet and supplemental vitamins. The medical issues the patient is following up for include depression. Note for Follow up for chronic medical issues: just saw Dr Shore- he is doing well- bp is great, [ADDITIONAL REASON] Anxiety - The onset of the anxiety has been gradual and has been occurring in an intermittent pattern for 4 years. The course has been decreasing. The anxiety is characterized as apprehension and nervousness. There were no precipitating factors. Note for Anxiety: feels the cymbal ta is better than welbutrin- more motivation and energy- would like to go up this dose- no other side effects Encounter Diagnosis: Hypertension (401.0), BPH (600.01), Depression/Anxiety (300.4), Peripheral vascular disease (443.9), Hypercholesterolemia (272.0) [facility] Office Visit On: 31-Aug-2006 8:41 Encounter Reason: Follow up for chronic medical issues - The patient feels well with no complaints ,has decreased energy level and is sleeping well. Patient has been compliant with instructions. Current medication use: n End: 31-Aug-2006 9:22 o side effects and compliant with dosing regimen. Nutrition: balanced diet ,inappropriate diet ,supplemental vitamins and low salt diet. The medical issues the patient is following up for include All id entified problems below ,depression (anxiety) ,high blood pressure ,high cholesterol ,other (bph, ddd, cad, jd) and peripheral vascular disease. blood pressure range : and weight :. Note for Follow up for chronic medical issues: wt is up and bp is up and exercise is down -- he needs labs - his pvd sx are stablerEncounter Diagnosis: Hypercholesterolemia (272.0), Peripheral vascular disease (443.9), Hypertension (401.0), BPH (600.01), Depression/Anxiety (300.4) [facility] Office Visit On: 23-Jun-2006 11:54 Encounter Diagnosis: Hypertension (401.0) End: 23-Jun-2006 22:34 [facility] Office Visit On: 15-Jun-2006 11:22 Encounter Diagnosis: Peripheral vascular disease (443.9) End: 16-Jun-2006 22:31 [facility] Office Visit On: 01-Jun-2006 8:21 Encounter Reason: Follow up for chronic medical issues - The patient feels well with no complaints ,has good energy level and is sleeping well. Patient has been compliant with instructions. Current medication use: no danis End: 01-Jun-2006 8:54 e effects and compliant with dosing regimen. Patient sleeps 7 hours per night. Nutrition: balanced diet ,supplemental vitamins and low salt diet. The medical issues the patient is following up for inclu de depression (anxiety) ,high blood pressure ,high cholesterol and other (pvd, cad, ddd). weight :. Note for Follow up for chronic medical issues: had turp in mar by [place] and now urinating is great and off the flomaxEncounter Diagnosis: BPH (600.01), Hypertension (401.0), Hypercholesterolemia (272.0), Peripheral vascular disease (443.9), Depression/Anxiety (300.4), Coronary Artery Disease (414.00) [facility] Office Visit On: 01-Mar-2006 8:21 Encounter Reason: Follow up for chronic medical issues - The patient feels well with no complaints ,has good energy level and is sleeping well. Patient has been compliant with instructions. Current medication use: no danis End: 01-Mar-2006 9:08 e effects. Patient sleeps 7 hours per night. Nutrition: balanced diet ,supplemental vitamins and low salt diet. The medical issues the patient is following up for include high blood pressure ,high mack sterol and other (ANXIETY, ELEVATED LFT'S.). weight :. Note for Follow up for chronic medical issues: bps not using up avoiding salt and just had a normal bp 1 week ago- mood better back on meds- slee p ing ok- got allergy testing- and gt first allergy shot yesterday- had mole removed and recently been itching- also lesion on left foot, [ADDITIONAL REASON] Follow up, Laboratory Test Results - Date: (01/11/06- flp,liver and 2 hr gtt- in emr.). Encounter Diagnosis: Hypertension (401.0), Hypercholesterolemia (272.0), Peripheral vascular disease (443.9), Depression/Anxiety (300.4), Coronary Artery Disease (414.00) [facility] Historical Summary On: 24-Feb-2006 14:12 [facility] End: 24-Feb-2006 14:24 Payers MedicareHumana/Supplement [facility] [place]; valeriano guarantor
--- OUTSIDE RECORDS SUMMARY | 2018-07-01 19:02 | XMS RPT_ITS | Continuity of Care Document ---
:1950 Author Organization [facility] Address [address] [place] [address] Phone Care Team Providers Name Role Phone Jazz Rodas DO Unavailable [facility] Unavailable [facility], [facility] Unavailable Long TOOL BUILDER, Sharnoda L Unavailable Unavailable Gravius, Laila Unavailable Unavailable Slarb TOOL BUILDER, Elle Unavailable Unavailable Messenger, TOOL BUILDER Darlene Unavailable Unavailable Manchak, Giselle Unavailable Unavailable Unavailable Unavailable Problems Name Dates [...] Atrial fibrillation, controlled (I48.91, 427.31) Comments: rate controlled Status: Active Benign prostatic hyperplasia with urinary obstruction and other lower urinary tract symptoms (N40.1, 600.21) Status: Active BMI 39.0-39.9,adult (Z68.39, V85.39) Status: Active BMI 40.0-44.9, adult (Z68.41, V85.41) Status: Active Bulging lumbar disc (M51.26, 722.10) Status: Active Carotid stenosis (I65.29, 433.10) Status: Active 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, 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) Status: Active Chronic anticoagulation (Z79.01, V58.61) Comments: Dr Crow ivan Status: Active Chronic fatigue (R53.82, 780.79) Status: Active Coronary artery disease, 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, 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) Status: Active Cough (R05, 786.2) Status: Active Degenerative disc disease (722.6) Status: [...] screening for malignant neoplasms, colon) (Z12.11, V76.51) Comments: last colonoscopy 2014 Status: Active Encounter for screening for malignant neoplasm of prostate (Renamed from Screening for prostate cancer) (Z12.5, V76.44) Status: Active Family history of diabetes mellitus (Z83.3, V18.0) Status: Active Hypercholesterolemia (E78.00, 272.0) Status: Active Hyperglycemia (R73.9, 790.29) Status: Active Hyperkalemia (E87.5, 276.7) Status: Active Hypermagnesemia (E83.41, 275.2) Status: Active Hypertension with heart disease (I11.9, 402.90) Status: Active Impaired fasting glucose (R73.01, 790.21) Status: Active Lumbar stenosis with neurogenic claudication (M48.062, 724.03) Comments: looking at possible back surgery Status: Active Macrocytosis without anemia (D75.89, 289.89) [...] DO, DO, Kathleen Start : 25-Aug-2016 Active Atenolol 25 MG Oral Tablet 1 Tablet qd for 90 days Quantity: 30 {Tablet} Refills: 3 Ordered:26-Nov-2015 Aditi Rodas DO, DO, Kathleen Start : 26-Nov-2015 Active Comments:new dose to help wiht afib rate control BuPROPion HCl ER (XL) [...] 30 days Quantity: 30 {Tablet} Refills: 1 Ordered:20-Feb-2018 Aditi Rodas DO, DO, Kathleen Start : 20-Feb-2018 Active Fenofibrate 54 MG Oral Tablet 1 (one) Tablet Tablet qd for 0 days Quantity: 30 {Tablet} Refills: 0 Ordered:21-Apr-2016 Aditi Rodas DO, DO, Kathleen Start : 29-Mar-2016 Active FISH OIL, 1000MG (Oral Capsule) 1 QD for 0 days Refills: 0 Ordered:07-Jan-2009 Flinner, JenniferActive Furosemide 40 MG Oral Tablet 1 (one) [...] 0 days Refills: 0 Ordered:07-Jan-2009 Sravani Mullins Zoloft 50 MG Oral Tablet 2 (two) Tablet qd for 30 days Quantity: 60 {Tablet} Refills: 4 Ordered:27-Oct-2017 Aditi Rodas DO, DO, Kathleen Start : 27-Oct-2017 Active Comments:wean ANUSOL-HC, 25MG [...] days Quantity: 6 {Syrup} Refills: 0 Ordered:21-Apr-2009 Pierre NAIDU Milady Start : 03-Jul-2008 Inactive HYDROCODONE-ACETAMINOPHEN, 5-500MG (Oral [...] days Quantity: 10 {Tablet} Refills: 0 Ordered:08-Feb-2012 Walker LOUChanel Start : 08-Feb-2012 End : 18-Feb-2012 Inactive [...] : 29-Sep-2015 End : 26-Nov-2015 Inactive ZOSTAVAX, 31309LZZ/0.65ML (Subcutaneous Solution Reconstituted) 1 For Solution dose [...] days Quantity: 30 {Tablet} Refills: 3 Ordered:30-Jul-2015 Adiit Rodas DO, DO, Kathleen Start : 19-Sep-2014 End : 30-Jul-2015 Discontinued [...] 10-Feb-2011 Discontinued CRESTOR, 20MG (Oral Tablet) 1 tab Tablet qd for 90 days Quantity: 90 {Tablet} Refills: 3 Ordered:15-Jan-2014 Emili Mullins Start : 21-May-2011 End : 15-Jan-2014 Discontinued CRESTOR, 20MG (Oral Tablet) 1 QD for 0 days Refills: 0 Ordered:23-Aug-2007 Xiao Busby End : 02-May-2007 Discontinued FLOMAX, 0.4MG (PO Cap CR) 2 [...] as of 29-Mar-2016 Cough (R05, 786.2) Status: Resolved as of [...] 28-Jul-2010 Unspecified Diagnosis Status: Inactive as of 26-Nov-2009 Unspecified Diagnosis Status: Inactive as of 21-May-2011 Unspecified Diagnosis Status: Inactive as of 21-May-2011 Vertigo (R42, 780.4) Comments: improving Status: Resolved as of 01-Oct-2008 Wheezing (R06.2, 786.07) Status: Resolved as of 01-Oct-2008 Procedures Procedure Dates Details cardioversion 09/2015 Completed Colonoscopy Completed Comments: 05-23-08 - Hyperplastic polyp, repeat in 7-yrs. heart ablation 04/07/16 [facility] Completed TURP- 2005 Completed ulner repair 08/12/15 Completed Date Value Details 16-Feb-2018 Emergency Department Summary Result: Comments: See Note; NOTES: [facility] Medical Records Department [address] [place] [address] Emergency Department Summary 02/16/18 8735 MR#: [id number] Acct: [id number] Name: LETHA DEUTSCH Rep #: [id number] : 1950 67 From: Charlie Lyles MD [...] inju ry This note was generated with Lema21 dictation software. It may contain incorrect words, spelling, and punctuation that were not noted in review of the chart prior to signing ED Disposition - Pl an for ED Patient: Chief Complaint: Abn Labs Referrals: Jazz Rodas DO [Primary Care Provider] - What to do if you have Problems For any increased pain, shortness of breath, bleeding, nausea or vomiting, chest pain, or any unexpected problems, contact your Primary Care Provider. Call [facility] ([phone]) or report to the closest Emergency Room. Call 911 if necessary. 02/16/18 184 5 <Electronically signed by Charlie Lyles MD> Date Charlie Lyles MD Cosigner Signature (If Indicated): Date CC: Jazz Rodas DO -Nov-2017 Carotid Duplex Ultrasound Result: Comments: See Note; NOTES: [facility] Cardiovascular Services [address] [place] [address] Carotid Duplex Ultrasound 11/09/17 1247 MR#: [id number] Acct: [id number] Name: LETHA MASON Rep #: [id number] : 1950 67 From: Kaiser Awan MD Attending Dr: Crow PERERA,Babatunde Status: REG CLI Ordering Dr: Babatunde Maria MD Date: 11/09/17 Location: [facility] Sex: M C Admitted: R t. [...] the left vertebral artery. Procedure Carotid Duplex 09999. The study was technically difficult. Exam performed [...] Dictated: 11/09/17 1247 Date Transcribed: 11/09/17 1516 Learning Disabilities Resource Teacher: Signed 27-Oct-2017 Cardiology Visit Report Result: Comments: See Note; NOTES: [facility] [address] [place] [address] OFFICE VISIT Date of Service: 10/27/17 MR#: [id number] Acct: [id number] Name: MARITOLETHA Ruperto Rep #: [id number] : 1950 Provider: Babatunde Maria MD Age/Sex: [...] stenosis, patent LAD, diagonal and OM. In he had an atrial flutter ablation. 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 transplanted heart: solomon heart Essential hypertension I10 Hypertension type: essential hypertension Atrial fibrillation and flutter I48. 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 transplanted heart: solomon heart Essential hypertension I10 Hypertension type: essentia l hypertension Atrial fibrillation and flutter I48.91; I48.92 Occlusion and stenosis of left carotid artery I65.22 Pure hypercholesterolemia E78.00; E78.0 Hyperlipidemia type: pure hypercholesterolemia 10/27/17 0935 <Electronically signed by Babatunde Maria MD> Date Babatunde Maria MD Cosigner Signature: Date (if applicable) CC: Jazz Rodas DO 22-Oct-2017 Spine Lumbar (Routine) Result: Comments: See Note; NOTES: [facility] Imaging Services [address] [place] [address] Spine Lumbar (Routine) MR#: [id number] Acct: [id number] Name: LETHA DEUTSCH Rep #: [id number] : 1950 M 66 From: Roberto Lunsford MD PCP: Jazz Rodas DO Status: REG CLI Study: Spine Lumbar (Routine) Date of Exam: 10/22/17 Exam# [id number] Ordering Dr: Brooklynn Ryan TAILING HAND-C STUDY: MRI L UMBAR SPINE WITHOUT CONTRAST [...] dated 05/02/2015. Electronically Signed: Roberto Lunsford MD a t 15:05 EDT , Service support , CC: Brooklynn Ryan; Jazz Rodas DO Learning Disabilities Resource Teacher: Signed 14-Apr-2017 Cardiology Visit Report Result: Comments: See Note; NOTES: [facility] 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 We recommend that they continue with current aggressive medical management and ri sk factor modification. 2. Hyperlipidemia, unspecified hyperlipidemia type E78.5 Arlen - LEDA iMllard Recent lipid profile demonstrates total cholesterol of 226, HDL 55, LDL 132, triglycerid es 246. These are similar to what they have been. Did discuss dietary modifications in addition to exercise. Patient is on fenofibrate and atorvastatin. Currently will continue with current medical cara awan. 3. Essential hypertension I10 LEDA Barrientos Blood pressure is well controlled on current medications, we do not recommend any changes at this time. 4. Persistent atrial fibri llation I48.1 LEDA Barrientos Patient is on a factor Xa inhibitor. He has maintained sinus rhythm post his second ablation. We will continue to monitor. 5. Peripheral vascular disease, unspecified I73.9 Plan - LEDA Millard Patient does not have any symptoms of [...] prior to saving. 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 <Electronically signed by Hyun TOMPKINS> Date Hyun TOMPKINS 04/14/17 1020<Electronically signed by Babatunde Maria MD> Cosigner Signature: Date (if applicable) Babatunde Maria MD CC: Jazz Rodas DO 23-Jun-2016 Brain/Head without Contrast Result: Comments: See Note; NOTES: [facility] Imaging Services [address] [place] [address] Verdana 4d Brain/Head without Contrast MR#: [id number] Acct: [id number] Name: [facility] E Rep #: [id number] : 1950 M 65 From: Chago Loera MD PCP: Jazz Rodas DO Status: REG ER Study: Brain/Head without Contrast Date of Exam: 06/23/16 Exam# [id number] Ordering Dr: Isiah Gloria MD STUDY: CT [...] 06/23 at 20:16 EDT , Service support [phone], N.B. : The above information has been verbally conveyed by Chago Loera MD to dr gloria, Referring Physician, on 20:19:35 (ET). CC: Emili Gloria MD; Jazz Rodas DO Learning Disabilities Resource Teacher: Signed 23-Jun-2016 Chest 1 View Result: Comments: See Note; NOTES: [facility] Imaging Services [address] [place] [address] Verdana 4d Chest 1 View MR#: [id number] Acct: [id number] Name: LETHA DEUTSCH Rep #: [id number] : 1950 M 65 From: Chago Loera MD PCP: Jazz Rodas DO Status: REG ER Study: Chest 1 View Date of Exam: 06/23/16 Exam# [id number] Ordering Dr: Emili Gloria MD STUDY: X-RAY [...] MD at 20:28 EDT , Service support [phone], CC: Emili Gloria MD; Jazz Rodas DO Learning Disabilities Resource Teacher: Signed 09-Jun-2016 Pulmonary Function Report Comp Result: Comments: See Note; NOTES: [facility] Pulmonary Services/Neurology [address] [place] [address] Pulmonary Function Test (Comp) MR#: [id number] Acct: [id number] Name: LETHA DEUTSCH Rep #: [id number] : 1950 65 From: Rodolfo Palacios DO Referring Dr: Rodolfo Palacios D.O. Status: REG CLI Ordering Dr: Rodolfo Palacios DO Date: 06/08/16 Location: [facility] Sex: M C DATE OF [...] DO Karen Gurrola C: T: NTS JOB: [id number] 06/09/16 1357 &# 60;Electronically signed by Rodolfo Palacios DO> Date Rodolfo Palacios DO CC: Rodolfo Palacios D.O.; Jazz Rodas DO Date Dictated: 06/09/16829 Date Transcribed: 06/09/16829 Learning Disabilities Resource Teacher: Signed 07-Jun-2016 Chest PA and Lateral Result: Comments: See Note; NOTES: [facility] Imaging Services [address] [place] [address] Verda 4d Chest PA and Lateral MR#: [id number] Acct: [id number] Name: LETHA DEUTSCH p #: [id number] : 1950 M 65 From: Real Miller MD PCP: Jazz Rodas DO Status: REG CLI Study: Chest PA and Lateral Date of Exam: 06/07/16 Exam# [id number] Ordering Dr: Hyun Iglesias STUDY: X-RAY CHEST [...] MD at 16:15 EST , Service support [phone], CC: Jazz Rodas DO; Hyun Iglesias Learning Disabilities Resource Teacher: Signed 01-Jun-2016 Carotid Duplex Ultrasound Result: Comments: See Note; NOTES: [facility] Cardiovascular Services [address] [place] [address] Carotid Duplex Ultrasound 06/01/16 1000 MR#: [id number] Acct: [id number] Name: LETHA MASON Rep #: [id number] : 1950 65 From: Cassi Rousseau MD Attending Dr: Rodolfo Palacios D.O. Status: REG CLI Ordering Dr: Gennaro Larsen MD Date: 06/01/16 Location: [facility] Sex: M C Admit alcon: Reason For [...] the left vertebral artery. Procedure Carotid Duplex 46495. Technically difficult due to body habitus. Exam [...] both the vertebral arteries. Ordering Physician: Gennaro Laresn Referring Physician: Gennaro Larsen Performed By: Karon Harris RVT Tami ctronically signed by: Trudy Rousseau MD on 06/01/2016 02:34 PM 06/01/16 1434 Date Cassi Rousseau MD CC: Jazz Rodas DO; Will mic Larsen MD Date Dictated: 06/01/16 1000 Date Transcribed: 06/01/16 143 Learning Disabilities Resource Teacher: Signed 01-Jun-2016 Echocardiogram Complete Result: Comments: See Note; NOTES: [facility] Cardiovascular Services [address] [place] [address] Echo Complete 06/01/16 0909 MR#: [id number] Acct: [id number] Name: LETHA DEUTSCH Rep #: [id number] : 1950 65 From: Babatunde Maria MD Attending Dr: Rodolfo Palacios DNeriO. Status: REG CLI Ordering Dr: Rodolfo Palacios [...] Palacios D.O.; Jazz Rodas DO Date Dictated: 06/01/1609 Date Transcribed: 06/01/16 1251 Learning Disabilities Resource Teacher: Signed 26-May-2016 6 Minute Walk Test Result: Comments: See Note; NOTES: [facility] Pulmonary Services/Neurology [address] [place] [address] MR#: [id number] Acct: [id number] Name: LETHA DEUTSCH Rep #: [id number] : 1950 65 From: Rodolfo Palacios DO Referring Dr: Rodolfo Palacios D.O. Date: Ordering Dr: Mateo: Armando C Location: PSN PSN 6 Minute Walk Test - 6 Minute Walk Test 6 Minute Walk Test: 6 Minute Walk Test PSN :6-Minute Walk Test Start: 05/25/16 12:52 Freq: Status: Active Document 05/25/16 12:52 MADIENTON (Rec: 05/25/16 12:54 SFENTON [id number]) 6 Minute Walk Test Date Performed 05/25/16 [...] Date Rodolfo Palacios DO CC: Date Dictated: 05/26/1647 Date Transcribed: 05/26/16946 Learning Disabilities Resource Teacher: Rodolfo Palacios DO Signed 21-Apr-2016 Venous Duplex Lower Extremity Result: Comments: See Note; NOTES: [facility] Cardiovascular Services [address] [place] [address] Venous Duplex US, Unilateral 04/21/16 1619 MR#: [id number] Acct: [id number] Name: LETHA ARTHUR Rep #: [id number] : 1950 65 From: Kwaku Ahmadi MD [...] 182 7 Date Kwaku Ahmadi MD CC: Jazz Rodas DO; Raya Albarran Date Dictated: 04/21/16 1619 Date Transcribed: 04/21/16 1827 Learning Disabilities Resource Teacher: Signed 16-Apr-2016 Pelvis WITH IV Contrast Result: Comments: See Note; NOTES: [facility] Imaging Services [address] [place] [address] Verdana 4d Pelvis WITH IV Contrast MR#: [id number] Acct: [id number] Name: LETHA DEUTSCH Rep #: [id number] : 1950 65 From: Gurpreet De Anda DO PCP: Jazz Rodas DO Status: REG CLI Study: Pelvis WITH IV Contrast Date of Exam: 04/16/16 Exam# [id number] Ordering Dr: Jazz Rodas O STUDY: CT PELVIS WITH CONTRAST REASON FOR [...] De Anda DO at 9:03 EST Tel [phone], Service support [phone], CC: Ivory Rodas DO Learning Disabilities Resource Teacher: Signed 14-Apr-2016 Other BP Soft Tissue Result: Comments: See Note; NOTES: [facility] Imaging Services [address] [place] [address] Verdana 4d Other BP Soft Tissue MR#: [id number] Acct: [id number] Name: LETHA DEUTSCH Re p #: [id number] : 1950 M 65 From: Gurpreet De Anda DO PCP: Jazz Rodas DO Status: REG CLI Study: Other BP Soft Tissue Date of Exam: 04/14/16 Exam# [id number] Ordering Dr: Raya Albarran STUDY: GALINDO PERFICIAL [...] versus lymph nodes. Electronically Signed: Gurpreet De nAda DO 27/04/03 at 12:37 EST Tel [phone], Service support [phone], CC: Jazz Rodas DO; Raya Albarran Learning Disabilities Resource Teacher: Signed 18-Feb-2016 12 Lead Electrocardiogram Result: Comments: See Note; NOTES: [facility] Cardiovascular Services [address] [place] [address] 12 Lead EKG 02/16/16 1238 MR#: [id number] Acct: [id number] Name: LETHA DEUTSCH Rep #: [id number] : 1950 65 From: Johnie Montaño MD Attending Dr: Babatunde Maria MD Status: [facility] Ordering Dr: Babatunde Maria MD Date: 02/16/16 Location: [facility] Sex: M C Admitted: [...] Abnormal ECG Confirmed by SCOTT PERERA, JOHNIE ([id number]), society editor BECK DOSS ([id number]) on 02/18/2016 2:53:30 PM Referred By: EDWIN Confirmed By:JOHNIE MONTAÑO MD 02/18/16 1453 Date Johnie Montaño MD CC: Jazz Rodas DO Date Dictated: 02/16/16 1238 Date Transcribed: 02/16/16 1238 Learning Disabilities Resource Teacher: Signed 17-Feb-2016 Operative Report Result: Comments: See Note; NOTES: [facility] Medical Records Department [address] [place] [address] Operative Report MR#: [id number] Acct: [id number] Name: LETHA DEUTSCH Rep #: [id number] : 1950 65 From: Rodolfo Palacios DO [...] issues including a triple bypass surgery at [facility] in 1996 followed by an ablation [...] Karen Gurrola C: Referring Provider . T: [facility] JOB: [id number] 02/17/16 1243 <Electronically signed by Rodolfo Palacios DO> Date ____ Rodolfo Palacios DO Cosigner Signature (If Indicated): Date CC: Rodolfo Palacios D.O.; Jzaz Razo Dictated: 02/16/16 1259 Date Transcribed: 02/16/161258 Learning Disabilities Resource Teacher: Signed 17-Feb-2016 Operative Report Result: Comments: See Note; NOTES: [facility] Medical Records Department [address] [facility] [place] [address] Operative Report MR#: [id number] Acct: [id number] Name: LETHA DEUTSCH Rep #: [id number] : 1950 65 From: Babatunde Maria MD PCP: Jazz Rodas DO Status: DEP CLI DATE OF SERVICE: PROCEDURE: DC cardioversion. INDICATIONS: [...] Babatunde Maria MD T: NTS JOB : [id number] 02/17/16 0833 <Electronically signed by Babatunde Maria MD> Date Babatunde Maria MD Cosigner Signature (If Indicated): Date __ CC: Babatunde Maria MD; Jazz Rodas DO Date Dictated: 02/16/161325 Date Transcribed: 02/16/161325 Learning Disabilities Resource Teacher: Signed 01-Jan-2016 Operative Report Result: Comments: See Note; NOTES: [facility] Medical Records Department [address] [place] [address] Operative Report MR#: [id number] Acct: [id number] Name: LETHA DEUTSCH Rep #: [id number] : 1950 65 From: Babatunde Maria MD PCP: Jazz Rodas DO Status: REG [facility] DATE OF SERVICE: PROCEDURE: DC cardioversion. INDICATION: Atrial fibrillation. DESCRIPTION OF PROCEDURE: The patient underwent transesophageal echocardiogram today to evaluate for left atrial appendage thrombus. There was no left atrial appendage thrombus noted. The patient was consented for the cardiover haydee. The patient was seen by Dr. Aldrich, the cardiovascular division and 80 mg of intravenous propofol was administered. The patient then underwent cardioversion with 200 joules of synchronized DC card ioversion energy with prompt reversal to sinus rhythm. PLAN: Plan would be to continue the patient on the current medication and outpatient followup. Babatunde Maria MD T: NTS JOB: [id number] 01/01/16 0813 <Electronically signed by Babatunde Maria MD> Date Babatunde Maria MD Cosigner Signature (If Indicated): Date CC: Babatunde Maria MD; Jazz Rodas DO Date Dictated: 12/29/15 1143 Date Transcribed: 12/29/15 1143 Learning Disabilities Resource Teacher: Signed 31-Dec-2015 Consultation Result: Comments: See Note; NOTES: [facility] Medical Records Department [address] [place] [address] Consultation MR#: [id number] Acct: [id number] Name: LETHA DEUTSCH Rep #: [id number] : 1950 65 From: Zia Aldrich MD PCP: Jazz Rodas DO Status: REG [facility] DATE OF SERVICE: 12/29/2015 BRIEF HISTORY OF PRESENT ILLNESS: The patient is a 65-year-old male, cu rrently under the care of Dr. Maria, who presents for elective KAYLEE and cardioversion secondary to atrial fibrillation. The patient does have a long history of atrial fibrillation and cardiac issues incl uding a triple bypass at [facility] in 1996, atrial ablation in 2011 [...] MD Primary Care Physician T: RACHAEL JOB: [id number] 12/31/15 0622 <Electronically signed by Zia Aldrich MD> Date Zia bond MD Cosigner Signature (If Indicated): Date CC: Zia Aldrich MD; Babatunde Maria MD; Jazz Rodas DO Date Dictated: 12/29/151436 Date Transcri bed: 12/29/15 143 Learning Disabilities Resource Teacher: Signed 29-Dec-2015 Echo Transesophageal (KAYLEE) Result: Comments: See Note; NOTES: [facility] Cardiovascular Services [address] [place] [address] Echo Transesophageal (KAYLEE) 12/29/15 1045 MR#: [id number] Acct: [id number] Name: LETHA DARBY Rep #: [id number] : 1950 65 From: Babatunde Maria MD Attending Dr: Crow PERERA,Babatunde Status: REG SDC Ordering Dr: Babatunde Maria MD Date: 12/29/15 Location: [facility] Sex: M C Admitted: Lissette fonseca For Study: A. fib Medication KAYLEE probe passed without difficulty. Cetacaine Topical [place] given X3 orally. Versed 2 mg given [...] Physician: Jazz Rodas M.D. Performed By: Sonal Santa, [facility] 12/29/15 1237 Date Babatunde Maria MD CC: Babatunde Maria MD; Jazz Rodas DO Date Dictated: 12/29/15 1045 Date Transcribed: 12/29/15 1237 Learning Disabilities Resource Teacher: Signed 20-Nov-2015 OT D/C Summary Result: Comments: See Note; NOTES: [facility] Occupational Therapy [facility] [address] [place] [address]. [address] [place], [place] [address] Fax REHABILITATION SERVICES [facility] SUMMARY MR#: [id number] Acct: [id number] Name: LETHA DEUTSCH Rep #: [id number] : 1950 65 From: Linda Blunt Referring [...] of their discharge status. - Objective Objective/Function: Buttonhole Tacker: R: 95# L: 80#. Lat Pinch: R:26# [...] the izquierdo to regaining sensation and strength. Buttonhole Tacker: R: 95# L: 80#. Lat Pinch: R:26# L:10#. Tripod Pinch: R:18# L:8#. Gram Abduction: R:375; L: 200. Adduction: R: 800; L:600. Monofilaments: L Th:3.84. L IF:3.22. L MF:3.22. L RF:3.22/4.08. L LF:4.08. In mariano nd manipulation (palm to fingers and fingers to palm) appear normal. If there are questions or concerns regarding this patient's occupational therapy, please fell free to call me at [phone]. Thank you for the referral of this patient. Sincerely, Linda Blunt <Electronically signed by Linda Blunt > 11/20/15 1518 CC: Jazz Rodas DO; Jorge Luis Kerr MD MG Signed 20-Nov-2015 OT General Evaluation Result: Comments: See Note; NOTES: [facility] Occupational Therapy [facility] [address] [place] [address] Fax REHABILITATION SERVICES IN ITIAL EVALUATION MR#: [id number] Acct: [id number] Name: LETHA DEUTSCH Rep #: [id number] : 1950 65 From: Linda Blunt Referring Dr.: Jorge Luis Kerr MD Status: REG RCR Insurance: MEDICARE PA RT A B Eval Date: Enish Patient's Visit Information LETHA DEUTSCH is a 65 year old M, referred to Occupational Therapy by Jorge Luis eKrr MD,, with a diagnosis of Lesion of Ulnar Nerv e, L Upper Limb. Date of Evaluation: 11/03/15 Occupational Therapist: Linda Blunt - Visit Plan Frequency: 2x /Week Duration: 6 Weeks - Subjective Subjective: Pt. had surgery for L ulnar nerve trans position on August 12, 2015 at [facility]. Pt. experienced sudden numbness and falling asleep" of L elbow and hand before the surgery. Pt. is retired and worked at [employer] for 34 years. 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 Pt. is R-handed - [...] Elbow: B 5/5 Wrist: R:5/5; L: 4+/5 Buttonhole Tacker: R:85# L:80# Lateral Pinch: R:22# L:12# Tripod [...] to be FAXED BACK to us at [phone] for Med icare purposes. Please let me [...] W/WO Contrast Result: Comments: See Note; NOTES: [facility] Imaging Services [address] [place] [address] Verdana 4d CTA Head W/WO Contrast MR#: [id number] Acct: [id number] Name: LETHA MASON Rep #: [id number] : 1950 M 65 From: Cecilio Castillo PCP: Jazz Rodas DO Status: REG CLI Study: CTA Head W/WO Contrast Date of Exam: 11/06/15 Exam# [id number] Ordering Dr: Linnea Johnson STUDY: CTA OF [...] There is no demonstrated aneurysm of the [place]. There is no demonstrated abnormality of the visualized brain. 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 Mi ld atherosclerotic plaque of the bilateral intracranial carotid arteries. Electronically Signed: Cecilio Castillo MD at 11:58 EDT Tel , Service support [phone], Fax CC: Linnea Rodas DO Learning Disabilities Resource Teacher: Signed 06-Nov-2015 CTA Head W/WO Contrast Result: Comments: See Note; NOTES: [facility] Imaging Services [address] [place] [address] Verdana 4d CTA Head W/WO Contrast MR#: [id number] Acct: [id number] Name: LETHA MASON Rep #: [id number] : 1950 M 65 From: Cecilio Castillo PCP: Jazz Rodas DO Status: REG CLI Study: CTA Head W/WO Contrast Date of Exam: 11/06/15 Exam# [id number] Ordering Dr: Linnea Johnson TAILING HANDMary Kay STUDY: CTA OF THE BRAIN REASON FOR [...] There is no demonstrated aneurysm of the [place]. There is no demonstrated abnormality of the visualized brain. CC: Linnea Hall; Jazz Rodas DO Learning Disabilities Resource Teacher: Signed 06-Nov-2015 CTA Neck W/WO Contrast Result: Comments: See Note; NOTES: [facility] Imaging Services [address] [place] [address] Verdana 4d CTA Neck W/WO Contrast MR#: [id number] Acct: [id number] Name: LETHA MASON Rep #: [id number] : 1950 M 65 From: Cecilio Castillo PCP: Jazz Rodas DO Status: REG CLI Study: CTA Neck W/WO Contrast Date of Exam: 11/06/15 Exam# [id number] Ordering Dr: Linnea Johnson STUDY: CTA NECK WITH CONTRAST REASON FOR [...] at 11:53 EDT Tel , Service support [phone], CC: Linnea Hall; Jazz Rodas DO Learning Disabilities Resource Teacher: Signed 06-Nov-2015 CTA Neck W/WO Contrast Result: Comments: See Note; NOTES: [facility] Imaging Services [address] [place] [address] Verdana 4d CTA Neck W/WO Contrast MR#: [id number] Acct: [id number] Name: RUBY LIEBERMANLETHA E Rep #: [id number] : 1950 M 65 From: Cecilio Castillo PCP: Jazz Rodas DO Status: REG CLI Study: CTA Neck W/WO Contrast Date of Exam: 11/06/15 Exam# [id number] Ordering Dr: Linnea Johnson TAILING HAND-C STUDY: CTA NECK WITH CONTRAST REASON FOR [...] a dominant left vertebral artery. CC: Linnea Rodas DO Learning Disabilities Resource Teacher: Signed 30-Sep-2015 Brain W/WO Contrast Result: Comments: See Note; NOTES: [facility] Imaging Services [address] [place] [address] Verdana 4d Brain W/WO Contrast MR#: [id number] Acct: [id number] Name: LETHA WHEELER Rep #: [id number] : 1950 M 64 From: Cierra Doss MD PCP: Jazz Rodas DO Status: REG CLI Study: Brain W/WO Contrast Date of Exam: 09/30/15 Exam# [id number] Ordering Dr: Prakash Mccarty MD STUDY: MRI [...] MD at 13:08 EDT , Service support [phone], CC: Isaac Mccarty MD; Jazz Rodas DO Learning Disabilities Resource Teacher: Signed 28-Sep-2015 Carotid Duplex Ultrasound Result: Comments: See Note; NOTES: [facility] Cardiovascular Services [address] [place] [address] Carotid Duplex Ultrasound 09/25/15 1411 MR#: [id number] Acct: [id number] Name: LETHA DEUTSCH Rep #: [id number] : 1950 64 From: Rian Levi MD [...] the left vertebral artery. Procedure Carotid Duplex 61606. Techncially difficult due to body habitus. Exam performed in department. Interpretation Summary Mild (<50%) stenosis right extracranial internal carotid. Mild (<50%) stenosis l eft extracranial internal carotid. Flow within the vertebral arteries is antegrade bilaterally. Ordering Physician: Jazz Rodas Performed By: Karon Harris RVT 09/28/15 2158 Date Rian Levi MD CC: Jazz Rodas DO Date Dictated: 09/25/15 1411 Date Transcribed: 09/28/152157 Learning Disabilities Resource Teacher: Signed 25-Sep-2015 Brain/Head without Contrast Result: Comments: See Note; NOTES: [facility] Imaging Services [address] [place] [address] Veronica 4d Brain/Head without Contrast MR#: [id number] Acct: [id number] Name: LETHA DEUTSCH Rep #: [id number] : 1950 M 64 From: Juli Klein MD PCP: Jazz Rodas DO Status: REG CLI Study: Brain/Head without Contrast Date of Exam: 09/25/15 Exam# [id number] Ordering Dr: Jazz Rodas DO STUDY: CT [...] at 14:19 EDT Tel cf, Service support [phone], CC: Jazz Rodas DO Learning Disabilities Resource Teacher: Signed 17-Sep-2015 Operative Report Result: Comments: See Note; NOTES: [facility] Medical Records Department [address] [place] [address] Operative Report MR#: [id number] Acct: [id number] Name: TYREL DEUTSCH Rep #: [id number] : 1950 64 From: Babatunde Maria MD [...] obtained, the patient was evaluated by Dr. Aldrich of the anesthesia division. 160 mg of [...] office. Babatunde Maria MD T: NTS JOB: [id number] 09/17/15804 <Electronically sig catrina by Babatunde Maria MD> Date Babatunde Maria MD Cosigner Signature (If Indicated): Date CC: Babatunde Maria MD; Jazz Rodas DO Date Dictated: 09/16/15 1100 Date Transcribed: 09/16/15 1100 Learning Disabilities Resource Teacher: Signed 17-Sep-2015 Operative Report Result: Comments: See Note; NOTES: [facility] Medical Records Department [address] [place] [address] Operative Report MR#: [id number] Acct: [id number] Name: CAMDENKY ALEJANDRINA Hickey Rep #: [id number] : 1950 64 From: Zia Aldrich MD PCP: Jazz Rodas DO Status: REG [...] AKHTAR C: Babatunde Maria MD Primary Care Physicia n . T: [facility] JOB: [id number] 09/17/15 0608 <Electronically signed by Zia Aldrich MD> Date Zia Aldrich MD Cosigner Signature (If I ndicated): Date CC: Zia Aldrich MD; Jazz Rodas DO Date Dictated: 09/16/15 1115 Date Transcribed: 09/16/155 Learning Disabilities Resource Teacher: Signed 09-Sep-2015 Chest PA and Lateral Result: Comments: See Note; NOTES: [facility] Imaging Services [address] [place] [address] Verdana 4d Chest PA and Lateral MR#: [id number] Acct: [id number] Name: LETHA CHAUDHARI Rep #: [id number] : 1950 M 64 From: Osvaldo Manuel MD PCP: Jazz Rodas DO Status: REG CLI Study: Chest PA and Lateral Date of Exam: 09/09/15 Exam# [id number] Ordering Dr: Hyun Iglesias STUDY: X-RAY CHEST REASON FOR EXAM: Male, 64 years old. History of atrial flutter ablation. TECHNIQUE: PA and lateral views of the chest. COMPARISON: Comparison is lilli e with prior study dated July 01, [...] Osvaldo Manuel MD at 10:04 EDT Tel [phone], Service support [phone], RAD/Chest PA and Lateral IMPRESSION: Hyperin flation. No acute abnormality is seen. Electronically Signed: Osvaldo Manuel MD at 10:04 EDT Tel [phone], Service support [phone], CC: Jazz reynolds DO; Hyun Iglesias Learning Disabilities Resource Teacher: Signed 07-Aug-2015 ELECTROCARDIOGRAM, COMPLETE (ECG) (96313) Comments: afib controlled rate 97 - Result: [MEASUREMENTS ANALYSIS] Date of Test: 08/07/2015 08:26:34; Heart Rate: 97; ME Interval: 0; QRS: 104; QT Interval: 344; Corrected QT Interval (QTc): 408; P Wave Crandall: 1; QRS Wave Crandall: -31; T Wave Crandall: 1; Blood Pressure: 138/78 [ECG DIAGNOSTIC STATEMENTS] Date of Test: 08/07/2015 08:26:34; Summary: Atrial flutter-fibrillation - Nonspecific T-abnormality. ABNORMAL 30-Jul-2015 ELECTROCARDIOGRAM, COMPLETE (ECG) (69486) Comments: afib rate 109 Result: [MEASUREMENTS ANALYSIS] Date of Test: 07/30/2015 17:00:28; Heart Rate: 109; ME Interval: 0; QRS: 108; QT Interval: 338; Corrected QT Interval (QTc): 423; P Wave Crandall: 1; QRS Wave Crandall: -30; T Wave Crandall: 42; Blood Pressure: 122/78 [ECG DIAGNOSTIC STATEMENTS] Date of Test: 07/30/2015 17:00:28; Summary: Atrial fibrillation -Nonspecific QRS widening. -Nonspecific ST depression -Nondiagnostic. ABNORMAL 24-Jul-2015 NCS and/or EMG Patient Result: Comments: See Note; NOTES: [facility] Pulmonary Services/Neurology [address] [place] [address] NCS and/or EMG Patient MR#: [id number] Acct: [id number] Name: LETHA ZUNIGA Rep #: [id number] : 1950 64 From: Mary Doan Referring Dr: Jorge Luis Kerr MD Status: REG CLI Ordering Dr: Jorge Luis Kerr MD Date: 07/23/15 Location: [facility] Sex: M C DATE OF [...] referral. Mary Doan MD T: NTS JOB: [id number] 07/24/152201 <Elect ronically signed by Mary Doan > Date Mary Doan CC: Jazz Irvin DO; MARY DOAN; Jorge Luis Kerr MD Date Dictated: 937 Date Transcribed: 07/23/15937 Learning Disabilities Resource Teacher: Signed 09-Jul-2015 Echocardiogram Complete Result: Comments: See Note; NOTES: [facility] Cardiovascular Services [address] [place] [address] Echo Complete 07/09/15 0858 MR#: [id number] Acct: [id number] Name: LETHA DARBY Rep #: [id number] : 1950 64 From: Babatunde Maria MD Attending Dr: Crow PERERA,Babatunde Status: REG CLI Ordering Dr: Babatunde Maria MD Date: 07/09/15 Location: [facility] Sex: M C Admitted: Reason For [...] Rodas M.D. Performed By: Sonal Santa RDCS 07/09/15 1258 Date Babatunde Maria MD CC: Jazz Rodas DO Date Dictated: 07/09/15 0858 Date Transcribed: 07/09/15 1258 Learning Disabilities Resource Teacher: Signed 09-Jul-2015 Nuclear Stress Test - Chemical Result: Comments: See Note; NOTES: [facility] Imaging Services [address] [place] [address] Verdana 4d Nuclear Stress Test - Chemical MR#: [id number] Acct: [id number] N alexsander: LETHA DEUTSCH Rep #: [id number] : 1950 64 From: Babatunde Maria MD [...] fraction. Babatunde Maria MD T: NTS JOB: [id number] 07/10/15 1139 <Electronically signed by Babatunde Maria MD> Date Babatunde Maria MD CC: Jazz Rodas DO Date Dictated: 07/09/15 1110 Date Transcribed: 07/09/15 111 Learning Disabilities Resource Teacher: Signed 02-May-2015 Lumbar Spine 2 or 3 Views Result: Comments: See Note; NOTES: [facility] Imaging Services [address] [place] [address] Verdana 4d Lumbar Spine 2 or 3 Views MR#: [id number] Acct: [id number] Name: LETHA ARTHUR Rep #: [id number] : 1950 [facility] From: Osvaldo Manuel MD PCP: Jazz Rodas DO Status: REG CLI Study: Lumbar Spine 2 or 3 Views Date of Exam: 05/02/15 Exam# [id number] [facility] Dr: Sherif Christensen MD STUDY: X-RAY - [...] Osvaldo Manuel MD at 15:13 EST Tel [phone], Service support [phone], 0056 RAD/Lumbar Spine 2 or 3 Views IMPRESSION: Grade 1 anterolisthesis of L5 on S1 with no significant translation on the flexion and extension maneuvers. Multilevel spondylosis and disc space narrowing. Electronically Signed: Osvaldo olivo MD at 15:13 EST Tel [phone], Service support [phone], CC: Sherif Christensen MD; Jazz Rodas DO Learning Disabilities Resource Teacher: Signed 02-May-2015 Spine Lumbar without Contrast Result: Comments: See Note; NOTES: [facility] Imaging Services [address] [place] [address] Verdana 4d Spine Lumbar without Contrast MR#: [id number] Acct: [id number] [facility] e: LETHA DEUTSCH Rep #: [id number] : 1950 64 From: Scott Kelly MD PCP: Jazz Rodas DO Status: REG CLI Study: Spine Lumbar without Contrast Date of Exam: 05/02/15 Exam# [id number] Ordering Dr: Sherif Christensen MD STUDY: CT [...] Scott Kelly MD at 8:31 EST Tel [phone], Ser vice support [phone], CC: Sherif Christensen MD; Jazz Rodas DO Learning Disabilities Resource Teacher: Signed 28-Jan-2015 History and Physical Exam Result: Comments: See Note; NOTES: [facility] Medical Records Department [address] [place] [address] History and Physical 01/24/15 2765 MR#: [id number] Acct: [id number] Name: LETHA DEUTSCH Rep #: [id number] : 1950 64 From: Joe Sinha PA-C PCP: Jazz Rodas DO Status: PRE IN Location: [facility] DATE OF SERVICE: PRIMARY CARE PHYSICIAN: Dr. Natalie Rodas. PROCEDURE TYPE: Reverse total shoulder replacement, right shoulder. PROCEDURE DATE: February 04, 2015. ATTENDING PHYSICIAN: Dr. Jorge Luis Kerr. HISTORY OF PRESENT ILLNESS: This is a 64-year-old male who first presented to [facility] on December 03, 2014. The patient states [...] patient has undergone cardiac clearance by his national park ranger, Dr. Maria. The patient has a history of coronary artery disease with bypass surgery in 1996. The patient has also had heart ablation in 2010 as well as stents in his left and right iliac arteries. The patient un derwent a heart catheterization in 2011. The patient was given surgical clearance by his national park ranger. The patient denies any chest pain, shortness of breath, nausea, vomiting, fevers, or chills. Aft er failing conservative treatment measures and discussing all treatment options with Dr. Jorge Luis Kerr, the patient would like to proceed with a reverse total shoulder replacement of the right shoulde r. I did discuss and reviewed at length and in detail 10 review of systems. All pertinent positives and negatives are noted in the medical record. Please see attached [facility] medical history sheet. PAST MEDICAL PROBLEMS: 1. [...] DIAGNOSTIC STUDIES: 1. X-rays were obtained at [facility] on December 03, 2014, of the right shoulder including 3 views AP, ___ _ and axillary view, show no acute fracture, dislocation, or other bony abnormalities, ____ lesion inferior aspect of the glenoid. 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 2. MRI o f the right shoulder was obtained at [facility] on ____ 2014, shows a full-thickness [...] nt has undergone cardiac clearance from his national park ranger. Joe Sinha PA-C T: RACHAEL JOB: [id number] 01/28/15 0716 <Electronically signed by Joe Sinha PA-C> Date : Time: Joe Sinha PA-C CC: Joe Rodas DO Date Dictated: 01/24/152254 Date Transcribed: 01/24/152254 Tra nscriptionist: Signed ____ I have re-examined the patient. There are no clinical changes since date of exam. ____ See Progress Notes for Changes ____ Dictated on Admission Date: ___ Time: Signature: -Jun-2014 Spine Lumbar (Routine) Result: Comments: See Note; NOTES: [facility] Imaging Services [address] [place] [address] MRI Report MR#: [id number] Acct: [id number] Name: LETHA DEUTSCH Rep #: [id number] : 1950 M 63 From: Jack Martínez MD PCP: Jazz Rodas DO Status: [facility] CLI Study: Spine Lumbar (Routine) Date of Exam: 06/13/14 Exam# [id number] Ordering Dr: Mihir Martínez MD STUDY: MR [...] at 19:32 EST Tel , Service support [phone], CC: Mihir Martínez MD; Jazz Rodas DO Learning Disabilities Resource Teacher: Signed 06-Mar-2014 Sleep Study Report Result: Comments: See Note; NOTES: [facility] [address] [place] [address] Polysomnography with NCPAP MR#: [id number] Acct: [id number] Name: RADHA DEUTSCH Rep #: [id number] : 1950 63 From: Gennaro Larsen MD PCP: Rupinder Encarnacion DO Status: REG CLI Ordering Dr.: Gennaro Larsen MD Date: 02/28/14 Sex: M C REFERRING PHYSICIAN: Dr. Larsen. SLEEP HISTORY: The patient is a 63-year-old gentleman with a calculated body mass index of 36.3 and an [place] Sleepiness Scale score of 8/24. The patient [...] version). Please note that a reference to [facility] AHI in this report is consistent with the current Hypopnea definition according to Medicare Criteria and an AASM AHI reference is consistent with the current Hypopnea definition according to the AASM criteria. PROCEDURE: The stud y was attended continuously by a diagnostic technician. Monitored parameters included left and right [...] Larsen Jr., MD CC: Gennaro Larsen MD 03 1436 03/06/14 1206 <Electronically signed by Gennaro Larsen MD> Date Gennaro Larsen MD Co-signature (if applicable) Date Signed 30-Jan-2014 Carotid Duplex Ultrasound Result: Comments: See Note; NOTES: [facility] Cardiovascular Services [address] [place] [address] Carotid Duplex Ultrasound 01/30/14 0854 MR#: [id number] Acct: [id number] [place] e: LETHA DEUTSCH Rep #: [id number] : 1950 63 From: Rian Levi MD Attending Dr: Rupinder Encarnacion DO Status: REG CLI Ordering Dr: Rupinder Encarnacion DO Date: 01/30/14 Location: [facility] Sex: M C Admitte d: Rt. Velocities/BP [...] the left vertebral artery. Procedure Carotid Duplex 51498. Exam performed in department. Interpretation Summary Mild (<50%) stenosis right extracranial internal carotid. Mild (<50%) stenosis left extracranial internal carotid. Flow within the vertebral arteries is antegrade bilaterally. Ordering Physician: Rupinder Encarnacion Performed By: Karon Harris RVT 01/30/141121 Date Rian Levi MD CC: Rupinder Encarnacion DO Date Dictated: 01/30/14 0854 Date Transcribed: 01/30/141121 Learning Disabilities Resource Teacher: Signed Immunization Name Dates Details Influenza (3 years and up) on: 24-Jan-2007 Comments: given o.5cc im in right deltoid lot#[id number] exp.10/09/07-aw Influenza (3 years and up) on: 15-Mar-2008 Influenza (3 years and up) on: 07-Jan-2009 Comments: Lot #:[id number] date:mount given:0.5mlRoute: IMSite given:left deltGiven by: PRECIOUS Serna Pneumococcal (2 years and up) on: 24-Jan-2007 Comments: given 0.5cc in right deltoid lot#[id number] exp. 02/20/08-aw Family History Unknown Family Member Name Dates Details Father Comments: aty 52, Diabetes and [place] Status: Active Mother Comments: CAD, PVD Status: Active Social History Name Dates Details Alcohol Use Comments: Rare beer Status: Active Caffeine Use Status: Active Most Recent Primary Occupation Comments: retired 2013 Status: Active Tobacco Use: Former smoker. Comments: Remotely quit tobacco use- 11/24/10 Status: Active Smoking Status Name Dates Details Former smoker Vital Signs Date Test Result Details 09-Rwj-407046:55 Temperature 97.3 f Comments: Method: Temporal Pulse [...] Area Calculated 2.14 m2 :59 Comments: hearing [facility] and had a glaucoma test done Pulse [...] Surface Area Calculated 2.12 m2 :29 Comments: [facility] glaucoma test doneHearing wnl Pulse [...] kg/m2 Body Surface Area Calculated 2.11 m2 11-Dag-948984:50 Comments: Eye [facility] 2014hearing wnl Pulse 74 /min Comments: Pattern: Regular Respiration [...] Calculated 2.07 m2 Head Circumference 0.00 cm 26-Yrh-18717:28 Temperature 98.1 f Comments: Method: Oral Pulse [...] 0.00 cm Results Date Description Value Details 5-Coa-163653:38 Basic Metabolic Profile (BMP) Comments: [facility] [address] [place], [address] GAP 10 (Normal) Range: 5-15 CO2 28.0 [...] Called at: 18:23:59 02/16/2018 by:Shawna Caicedo to Gianna GLU 96 mg/dL (Normal) Range: 74-106 Comments: Please note revised GLUCOSE reference range donpsgpgv05/02/2018. 4-Xgj-633066:38 CBC W/Diff, Automated Comments: [facility] [address] [place], [address] Absolute Lymph 1.17 {X10_3/ul} (Normal) Range: 0.83-4.51 [...] 4.6-6.2 WBC 4.9 K/mm3 (Normal) Range: 4.4-11.0 0-Obe-312952:32 Urinalysis, Complete Comments: Order Date: 02/16/18Has pt arrived? YHow was Urine Obtained? APPEALS ASSISTANT TO [facility] [address] [place], [id number] MUCUS, URINE 0 SEEN {/hpf} (Normal) BACTERIA [...] (Normal) CLARITY Clear (Normal) COLOR Yellow (Normal) 49-Mhb-092935:57 Blood Glucose , Office (21584) Blood Glucose , Office 123 (Normal) :06 Lipid Profile Comments: [facility] [address] [facility] [place], [place], [id number] VLDL Test not performed mg/dL (Normal) Range: [...] mg/dL High Risk :06 Liver Profile Comments: [facility] [address] [place], [place], [id number] D BILI 0.07 mg/dL (Normal) Range: 0.00-0.30 T BILI 0.30 mg/dL (Normal) Range: 0.20-1.00 ALT 34 U/L (Normal) Range: 16-61 ALK P 58 U/L (Normal) Range: 45-117 AST 23 U/L (Normal) Range: 15-37 GLOB 3.4 g/dL (Normal) Range: 2.2-4.2 ALB 3.4 g/dL (Normal) Range: 3.2-5.0 T PROT 6.8 g/dL (Normal) Range: 6.4-8.2 :19 CBC W/Diff, Automated Comments: [facility] [address] [place], [place], [address] Absolute Lymph 1.39 {X10_3/ul} (Normal) Range: 0.83-4.51 [...] 4.6-6.2 WBC 5.6 K/mm3 (Normal) Range: 4.4-11.0 :19 Comprehensive Metabolic Profil Comments: [facility] [address] [place], [address] GAP 13 (Normal) Range: 5-15 CO2 29.0 [...] A.D.A. criteria.Please note revised GLUCOSE reference range pabxpmynu26/02/2018. 58-Ybb-43823:19 Lipid Profile Comments: [facility] [address] [place], [address] VLDL Test not performed mg/dL (Normal) Range: [...] High Risk :19 Microalb:Creat Ratio,Random UR Comments: [facility] [address] [place], [address] MALB:CREAT 15.8 {mg/g_CRE} (Normal) MICROALBUMIN,UR 13.4 mg/L (Normal) UR CREAT 84.70 mg/dL (Normal) :19 Thyroid Stim Hormone (TSH) Comments: [facility] [address] [place], [address] TSH 1.82 {uIU/mL} (Normal) Range: 0.358-3.74 :19 Urinalysis, Complete Comments: How was Urine Obtained? [facility] [address] [place], [address] MUCUS, URINE 0 SEEN {/hpf} [...] :19 Vitamin B12 353 pg/mL (Normal) Comments: [facility] [address] [place], [address] Range: 211-911 :19 Vitamin D,25 Hydroxy Comments: [facility] [address] [place], [id number] Vitamin D 25-OH 24.7 ng/mL (Abnormal) Range: 29.95-100.01 Comments: Vitamin D 25(OH) Status Range Deficiency <20 ng/mL (50nmol/L) Insuffciency 20 - 30 ng/mL (50 - 75 nmol/L) Sufficiency 30 - 100 ng/mL (75 - 250 nmol/L) Toxicity >100 ng/mL (>250 nmol/L) :02 HgA1C , Office (09346) HgA1C , Office 5.4 % (Normal) Range: 4.6 - 7.1 :02 Blood Glucose , Office (77929) Blood Glucose , Office 141 (Normal) :22 Lipid Profile Comments: [facility] [address] [place], [address] VLDL 49 mg/dL (Abnormal) Range: 5-40 LDL [...] mg/dL High Risk :22 Liver Profile Comments: [facility] [address] [place], [address] D BILI 0.09 mg/dL (Normal) Range: 0.00-0.30 [...] (PROSTATE SPECIFIC Comments: PATIENT NOT FASTINGPERFORMED BY: [facility]Asc[facility]6370 [facility] [id number] ANTIGEN) (V76.44) Prostate Specific Ag, 0.9 ng/mL (Normal) Range: 0.0-4.0 Serum Comments: Esme ECLIA methodology. .According to the [place] [employer], Serum PSA shoulddecrease and remain [...] of malignant disease. :04 HgA1C , Office (92354) HgA1C , Office 5.6 % (Normal) Range: 4.6 - 7.1 :04 Blood Glucose , Office (71663) Blood Glucose , Office 117 (Normal) :37 CBC W/Diff, Automated Comments: [facility] [address] [place], [place], [address] Absolute Lymph 1.18 {X10_3/ul} (Normal) Range: 0.83-4.51 [...] 4.6-6.2 WBC 5.2 K/mm3 (Normal) Range: 4.4-11.0 :37 Comprehensive Metabolic Profil Comments: [facility] [address]wpjnto[address] [place], [place], [address] GAP 5 (Normal) Range: 5-15 CO2 32.0 [...] 7-18 GLU 93 mg/dL (Normal) Range: 70-110 48-Fcd-78218:37 Lipid Profile Comments: [facility] [address]wmsdpxpbc[address] [place], [place], [id number] VLDL 61 mg/dL (Abnormal) Range: 5-40 LDL [...] High Risk :37 Microalb:Creat Ratio,Random UR Comments: [facility] [address]hemef[address] [place], [address] MALB:CREAT Test not performed {mg/g_CRE} (Normal) MICROALBUMIN,UR < 5.0 mg/L (Normal) UR CREAT 105.00 mg/dL (Normal) :37 Thyroid Stim Hormone (TSH) Comments: [facility] Q[address]keqivjxh[address] [place], [address] TSH 1.68 {uIU/mL} (Normal) Range: 0.358-3.74 :37 Urinalysis, Complete Comments: How was Urine Obtained? CLEAN [facility] [address]kwzhru[address] [place], [address] MUCUS, URINE 0 SEEN {/hpf} (Normal) [...] :37 Vitamin B12 539 pg/mL (Normal) Comments: [facility] [address]ns[address]xmeg[address] [place], [address] Range: 211-911 :37 Vitamin D,25 Hydroxy Comments: [facility] [address]yqfndjyfj[address] [place], [address] Vitamin D 25-OH 42.0 ng/mL (Normal) Comments: Vitamin D 25(OH) Status Range Deficiency <20 ng/mL (50nmol/L) Insuffciency 20 - 30 ng/mL (50 - 75 nmol/L) Sufficiency 30 - 100 ng/mL (75 - 250 nmol/L) Toxicity >100 ng/mL (>250 nmol/L) Gastric Biopsy See Note (Normal) Comments: [facility] [address]pi[address] [place], [address] :56 Comments: Patient: LETHA DEUTSCH : 1950 (65/M) Acct Num: [id number] Phys: Jose Antonio Mehta Unit Num: [id number] Loc: LABSPEC Specimen: [id number] Received: 10/21/161630 Spec Type: Gastric Bx TISSUES TISSUES: COMMENT The results of immunohistochemistry for Helicobacter pylori will be reported separately ([id number]). GROSS DESCRIPTION Received in fixative i s one container labeled with the patient's name and designated gastric/antrum biopsy. The specimen consists of two irregular fragments of light pacheco soft tissue that in aggregate measure 0.6 x 0.3 x 0 .1 cm. The specimen is totally submitted in one cassette. / YONI:berta 10/22/16 TC:3 CPT: 41119 HEADER OPERATION: EGD with biopsy PRE-OP DIAGNOSIS: Iron deficiency anemia TISSUE SUBMITTED: Bio psy gastric antrum biopsy, rule out gastritis MICROSCOPIC DESCRIPTION Slides are reviewed. The specimen shows fragments of gastric mucosa with chronic inflammatory cell infiltrates in the lamina propria consisting of lymphocytes and plasma cells, consistent with mild chronic gastritis. MICROSCOPIC DIAGNOSIS Gastric antrum, biopsy: Mild gastritis. YONI:berta 10/25/16 Signed ____ Peter Ibanez 10/25/16 <signature on file> IMMUNOHISTOCHEMISTRY See Note (Normal) Comments: [facility] [address] [place], [address] :00 Comments: Patient: LETHA DEUTSCH : 1950 (65/M) Acct Num: [id number] Phys: Jose Antonio Mehta Unit Num: [id number] Loc: LABSPEC Specimen: [id number] Received: 10/25/16 - 1213 Spec Type: IMMUNO TISSUES TISSUES: SPECIMEN INFORMATION: Tissue Source: Gastric antrum biopsy Clinical Info: Iron deficiency anemia Specimen Number: [id number] CPT code: 81034 METHODO LOGY: Deparaffinized sections of prefer/formalin-fixed tissue or PAP/DQ stained slides are incubated with monoclonal/polyclonal antibodies/oligonucleotide probes. Localization is made via biotin free immunoperoxidase method. Appropriate controls are performed and reacted as expected. Results on target cell population are indicated in the following table: RESULTS: ANTIBODY / CLONE RESULT H Pylori (polyclonal) negative These tests were developed and their performance characteristics determined by [facility]. They may not hav e been cleared or approved by the U.S. Food and Drug Administration. The FDA has determined that such clearance or approval is not necessary. INTERPRETATION: Gastric antrum, biopsy: Negative for Helicobacter pylori organisms. SJ:berta 10/26/16 PHYSICIAN AND INSTITUTION [address] [address] Signed Peter Ibanez 10/26/16 <signature on file> 0-Jns-522343:26 CBC-Complete Blood Cnt No Diff Comments: [facility] [address] [place], [place], [address] MPV 9.7 fL (Normal) Range: 6.2-12.0 PLT [...] 4.6-6.2 WBC 5.5 K/mm3 (Normal) Range: 4.4-11.0 3-Kzx-609611:26 Iron Comments: [facility] [address]fpuhonf[address] [place], [place], [address] IRON 109 ug/dL (Normal) Range: 65-175 7-Suk-905592:10 Basic Metabolic Profile (BMP) Comments: DR.STRUNETS MALHOTRA BMP,CBCD DR. CROW MALHOTRA PT/[facility] Yfvcenywbd4249 [facility] [place], [address] GAP 7 (Normal) Range: 5-15 [...] 126 mg/dLsuggests DIABETES MELLITUS per A.D.A. criteria. 5-Tji-351364:10 CBC W/Diff, Automated Comments: DR.STRUNETS MALHOTRA BMP,CBCD DR. CROW MALHOTRA PT/[facility] Ffsrxndpvq3383 [facility] [place], [address] Absolute Lymph 0.85 {X10_3/ul} (Normal) [...] 4.6-6.2 WBC 3.9 K/mm3 (Abnormal) Range: 4.4-11.0 8-Kfs-037624:10 Prothrombin Time w/INR Comments: DR.STRUNETS MALHOTRA BMP,CBCD DR. CRWO MALHOTRA [facility] [address]sepybpqny75[address] [place], [address] INR 1.5 (Normal) PROTIME 17.9 s (Abnormal) Range: 11.7-14.9 31-Pxh-600779:31 Stool Occult Blood iFOB Comments: [facility] [address]xc[address] [place], [address] STOB See Note (Normal) Comments: Order Date: 09/02/16 STOB iFOBOccult Blood Positive ORGANISM 1: OCCULT BLOOD POSITIVE 86-Wrm-139807:25 Basic Metabolic Profile (BMP) Comments: [facility] [address]fw[address]evr[address] [place], [place], [address] GAP 8 (Normal) Range: 5-15 CO2 29.0 [...] 7-18 GLU 98 mg/dL (Normal) Range: 70-110 56-Wov-014740:25 CBC-Complete Blood Cnt No Diff Comments: [facility] Xwpccspave24[address] [place], [place], [address] MPV 8.8 fL (Normal) Range: 6.2-12.0 PLT [...] 4.6-6.2 WBC 5.6 K/mm3 (Normal) Range: 4.4-11.0 92-Daj-542422:25 Liver Profile Comments: [facility] [address] [place], [place], [address] D BILI 0.05 mg/dL (Normal) Range: 0.00-0.30 T BILI 0.20 mg/dL (Normal) Range: 0.20-1.00 ALT 24 U/L (Normal) Range: 12-78 ALK P 51 U/L (Normal) Range: 45-117 AST 13 U/L (Abnormal) Range: 15-37 GLOB 3.3 g/dL (Normal) Range: 2.3-3.5 ALB 3.7 g/dL (Normal) Range: 3.4-5.0 T PROT 7.0 g/dL (Normal) Range: 6.4-8.2 51-Iub-426960:25 Prothrombin Time w/INR Comments: [facility] [address] [place], [place], [address] INR > 19.5 (Abnormal) Comments: RESULTS CALLED TO BRITTANEY 09/02/16 1753 Vito Arteaga.REPORT READ BACK BY SAME. PROTIME > 120.0 s (Abnormal) Range: 11.7-14.9 67-Yzv-060972:53 Prothrombin Time w/INR Comments: [facility] [address]ag[address] [place], [place], [address] INR > 19.5 (Abnormal) Comments: CRITICAL VALUE VERIFIED. CALLED TO GERRY AT [facility]09/02/16 1447 Alice Luque.RESULTS READ BACK BY SAME . PROTIME > 120.0 s (Abnormal) Range: 11.7-14.9 17-Dno-353273:33 Prothrombin Time w/INR Comments: [facility] [address]ff[address] [place], [place], [phone] INR 1.9 (Normal) PROTIME 21.2 s (Abnormal) Range: 11.7-14.9 :51 HgA1C , Office (05567) HgA1C , Office 5.5 % (Normal) Range: 4.6 - 7.1 :51 Blood Glucose , Office (52025) Blood Glucose , Office 131 (Normal) 15-Tzn-360043:44 Prothrombin Time w/INR Comments: [facility] [address] [place], [address] INR 2.4 (Normal) PROTIME 25.5 s (Abnormal) Range: 11.7-14.9 :11 Prothrombin Time w/INR Comments: [facility] [address] [place], [address] INR 1.5 (Normal) PROTIME 17.7 s (Abnormal) Range: 11.7-14.9 :47 Prothrombin Time w/INR Comments: [facility] [address] [place], [address] INR 1.5 (Normal) PROTIME 17.7 s (Abnormal) Range: 11.7-14.9 :45 Basic Metabolic Profile (BMP) Comments: Order Date: 06/09/16Order Info: [id number] - *BMPDR. CROW ORDERED PTINR STANDING ORDER.Order Date: 06/09/16Order Info: [id number] - *BMPComments: Reason:[facility] [address]ionsfd[address] [place], [place], [phone]) GAP 9 (Normal) Range: 5-15 CO2 30.0 [...] 7-18 GLU 106 mg/dL (Normal) Range: 70-110 :02 Prothrombin Time w/INR Comments: [facility] [address] [place], [address] INR 1.8 (Normal) PROTIME 20.1 s (Abnormal) Range: 11.7-14.9 :27 POTASSIUM SERUM (60356) Comments: STAT; Order Date: 06/30/16Order Info: [id number] - KComments: STATOrder Date: 06/30/16Order Info: 2823-3 - KComments: [facility]WS[facility] [address]hfkw[address] [place], [address] K 4.6 mmol/L Range: 3.5-5.1 (Normal) Vitamin B2, Whole 236 ug/L (Normal) Comments: PATIENT NOT FASTINGPERFORMED BY: [employer]70 AmpIdeaCone [facility] Hospital [id number] BY: [employer] [id number] 5:40 Blood Range: 137-370 Comments: Reference interval reflects flavinadeninedinucleotide (FAD), that accounts for approximately 90% of the total riboflavin in whole blood. 94-Ark-045846:40 Vitamin B6, Plasma Comments: PATIENT NOT FASTINGPERFORMED BY: Task[employer]6370 HansenHoliduCone Health Wesley Long Hospital [id number] BY: Attend.com[address] [id number] ([address]) Vitamin B6 36.6 ug/L (Normal) Range: 5.3-46.7 21-Pog-466684:40 ALCOHOL, ETHYL (BLOOD) Comments: serum alcohol; PATIENT NOT FASTINGPERFORMED BY: Task[employer]6370 [address] GreenBiz GroupCone Health Wesley Long Hospital [id number] BY: [employer] [id number] (86548) Ethanol Negative % (Normal) 18-Ega-022100:40 AMMONIA (41845) Comments: PATIENT NOT FASTINGPERFORMED BY: [facility] Duewxx5577 [address] [facility] Hospitalblin [place] [id number] BY: [address] [id number] Ammonia, Plasma 42 ug/dL (Normal) Range: 27-102 88-Czi-696445:40 VITAMIN B-12 Comments: PATIENT NOT FASTINGPERFORMED BY: [facility] Wvowdx7989 Hansen Roadblin [place] [id number] BY: [address] [id number] (CYANOCOBALAMIN) (51492) Vitamin B12 417 pg/mL (Normal) Range: 211-946 77-Nkp-251006:40 SED RATE ERYTHROCYTE Comments: PATIENT NOT FASTINGPERFORMED BY: [facility]Asc[facility]6370 [facility] [id number] BY: [address] [id number] (83310) Sedimentation Rate-Westergren 8 mm/h (Normal) Range: 0-30 90-Hki-613513:40 RHEUMATOID FACTOR-QUANT Comments: PATIENT NOT FASTINGPERFORMED BY: LabJeff[facility] Lmupbh0334 Hansen Roadblin [place] [id number] BY: [address] [id number] (89877) RA Latex Turbid. 10.8 {IU/mL} (Normal) Range: 0.0-13.9 87-Veo-430825:40 METABOLIC PANEL, Comments: PATIENT NOT FASTINGPERFORMED BY: [facility] Eshjgv7680 [address] [facility] Hospitalbl[facility] [place] [id number] BY: [address] [id number] COMPREHENSIVE (91181) ALT (SGPT) 25 [iU]/L (Normal) Range: 0-44 [...] Glucose, Serum 100 mg/dL (Abnormal) Range: 65-99 21-Qwy-357509:40 C-REACTIVE PROTEIN Comments: PATIENT NOT FASTINGPERFORMED BY: [employer] J[address] [place] [address] [id number] BY: [employer] [id number] (88768) C-Reactive Protein, Quant 0.9 mg/L (Normal) Range: 0.0-4.9 80-Gwh-912343:40 CBC (AUTO) (72164) Comments: PATIENT NOT FASTINGPERFORMED BY: [employer] [id number] BY: [employer] [id number] Platelets 194 {x10E3/uL} (Normal) Range: 150-379 RDW 15.6 % (Abnormal) Range: 12.3-15.4 MCHC 33.1 g/dL (Normal) Range: 31.5-35.7 MCH 34.4 pg (Abnormal) Range: 26.6-33.0 MCV 104 fL (Abnormal) Range: 79-97 Hematocrit 39.9 % (Normal) Range: 37.5-51.0 Hemoglobin 13.2 g/dL (Normal) Range: 12.6-17.7 RBC 3.84 {x10E6/uL} (Abnormal) Range: 4.14-5.80 WBC 5.9 {x10E3/uL} (Normal) Range: 3.4-10.8 96-Lyg-007740:40 CHIQUI (ANTINUCLEAR ANTIBODY) Comments: PATIENT NOT FASTINGPERFORMED BY: [employer] [id number] BY: [place] [id number] (98123) CHIQUI Direct Negative (Normal) 15-Dop-740964:40 TSH (32453) Comments: PATIENT NOT FASTINGPERFORMED BY: [employer] [id number] BY: [address] [id number] TSH 2.350 {uIU/mL} (Normal) Range: 0.450-4.500 32-Npl-448037:40 T4, FREE (THYROXINE) Comments: PATIENT NOT FASTINGPERFORMED BY: [employer] [id number] BY: [address] [id number] (07585) T4,Free(Direct) 0.95 ng/dL (Normal) Range: 0.82-1.77 49-Jmn-382858:40 T3, FREE (TRIDOTHYRONINE) Comments: PATIENT NOT FASTINGPERFORMED BY: [address] [id number] BY: [address] [place] [id number] (14612) Triiodothyronine,Free,Serum 2.7 pg/mL (Normal) Range: 2.0-4.4 68-Owt-987670:40 CALCIFIDIOL (30563) VIT D Comments: PATIENT NOT FASTINGPERFORMED BY: CB [facility] Eohfdb2556 [place] [id number] BY: BN [facility] [address] [id number] 25 Vitamin D, 25-Hydroxy 43.4 ng/mL (Normal) Range: 30.0-100.0 Comments: Vitamin D deficiency has been defined by the [place] ofMedicine and an Endocrine Society practice guideline as alevel of serum 25-OH vitamin D less than 20 ng/mL (1,2).The Endocrine Society went on to further define vitamin Dinsufficiency as a level between 21 and 29 ng/mL (2).1. IOM ([place] of Medicine). 2010. Dietary reference intakes for calcium and D. Ca DC: The National Academies Press.2. Elyse MF, Saumya PUENTE, Nai MARIANO, et al. Evaluation, treatment, and prevention of vitamin D deficiency: an Endocrine Society clinical practice guideline. JCEM. 2010; 96(7):1911-30. 33-Jyh-663263:45 Alcohol, Blood (Medical)-Serum Comments: [facility] [address]ns[address]kq[address] [place], [place], [address] SERUM ETOH 353.0 mg/dL (Abnormal) Comments: CALLED KEESHA LOBO RN ED [place] 2054PM MAF READ BACK BY SAMEThe serum:whole blood ethanol ratio is approximately 1.14and varies slightly with hematocrit.Medical Alcohol reference interval and critical v alue innon-tolerant individuals; 50 - 100 Impairment 100 Intoxication 100 - 250 Severe Poisoning 250 - 400 Deep/possible fatal coma 75-Qwq-258391:45 Basic Metabolic Profile (BMP) Comments: 'TROP' Serial specimen #1, #2, #3, or #4: 1WS[facility] [address]msiuijjws54[address] [place], [address] GAP 10 (Normal) Range: 5-15 CO2 26.0 [...] 7-18 GLU 95 mg/dL (Normal) Range: 70-110 44-Jvk-110699:45 CBC W/Diff, Automated Comments: [facility] [address]pevqns[address] [place], [address] Absolute Lymph 2.30 {X10_3/ul} (Normal) Range: 0.83-4.51 [...] Range: 4.4-11.0 :45 Partial Thromboplast Time Comments: [facility] [address] [place], [address] PTT 28.3 s (Normal) Range: 24.1-36.2 :45 Prothrombin Time w/INR Comments: [facility] [address] [place], [address] INR 1.1 (Normal) PROTIME 14.1 s (Normal) Range: 11.7-14.9 :45 Troponin-I Comments: 'TROP' Serial specimen #1, #2, #3, or #4: 1WSouth[facility] [address]tyanrk[address] [place], [address] TROPONIN-I < 0.02 ng/mL (Normal) Comments: TROPONIN-I EXPECTED VALUES <0.05 NEGATIVE 0.06 - 0.59 AT RISK OF NM > OR = 0.60 SUGGEST NM :24 Prothrombin Time w/INR Comments: [facility] [address] [place], [address] ; managed by [facility] INR 1.3 (Normal) PROTIME 15.2 s (Abnormal) Range: 11.7-14.9 :46 INR Fingerstick Comments: [facility] LaboratoryPoint [facility] HospitalVikq6259 [address] [place] [address] INR ISTAT 3.90 (Abnormal) Comments: Critical Value > 3.5 :46 Prothrombin Time Fingerstick Comments: [facility] LaboratoryPoint of Suzf[address] [place] [address] PROTIME ISTAT 43.7 {SEC} (Abnormal) Range: 11.9-14.4 Comments: Reference Range 11.9 - 14.4 :46 Prothrombin Time w/INR Comments: [facility] Qbmusyvwwh34[address] [place], [address] INR 4.0 (Abnormal) Comments: CRITICAL VALUE VERIFIED. CALLED TO YPMNNOJ24/27/17 1304 Whitley Walters.RESULTS READ BACK BY SAME . PROTIME 38.0 s (Abnormal) Range: 11.7-14.9 :49 Prothrombin Time w/INR Comments: [facility] [address] [place], [address] INR 2.8 (Normal) PROTIME 28.4 s (Abnormal) Range: 11.7-14.9 71-Dsa-148715:52 Basic Metabolic Profile (BMP) Comments: Order Date: 05/04/16Order Info: [id number] - *BMPOrder Date: 05/04/16Order Info: [id number] - *Brain Natriuretic Peptide BNPComments: Reason:[facility] [address] [place], [address] GAP 10 (Normal) Range: 5-15 CO2 30.0 [...] 7-18 GLU 104 mg/dL (Normal) Range: 70-110 28-Ptt-185969:52 BNP,B-Type NATRIURETIC PEPTIDE Comments: Order Date: 05/04/16Order Info: [id number] - *Brain Natriuretic Peptide BNPOrder Date: 05/04/16Order Info: [id number] - *Brain Natriuretic Peptide BNPWSouthview Medical Center [address]qaztf[address] [place], [address] B-TYPE ARASELI PEP 240.6 pg/mL (Abnormal) Range: 0-100 89-Gfa-119284:52 Prothrombin Time w/INR Comments: [facility] Nfzhdefkip[address] [place], [address] INR 2.5 (Normal) PROTIME 25.8 s (Abnormal) Range: 11.7-14.9 80-Xbz-288040:46 Liver Profile Comments: Order Date: 12/12/15Order Date: 12/12/15WS[facility] [address]nwdwf[address] [place], [address] D BILI 0.12 mg/dL (Normal) Range: 0.00-0.30 T BILI 0.30 mg/dL (Normal) Range: 0.20-1.00 ALT 35 U/L (Normal) Range: 12-78 ALK P 56 U/L (Normal) Range: 45-117 AST 25 U/L (Normal) Range: 15-37 Comments: Slight Hemolysis, Result may be falsely increased. GLOB 3.7 g/dL (Abnormal) Range: 2.3-3.5 ALB 3.7 g/dL (Normal) Range: 3.4-5.0 T PROT 7.4 g/dL (Normal) Range: 6.4-8.2 45-Zzg-563773:46 Prothrombin Time w/INR Comments: [facility] [address]wcc[address] [place], [id number] INR 3.6 (Abnormal) Comments: CRITICAL VALUE REPEATED AND VERIFIED. CALLED TO DARRYL MEYERS'S OFFICE.04/26/16 1238 Randy Buchanan.RESULTS READ BACK BY SAME. PROTIME 35.0 s (Abnormal) Range: 11.7-14.9 :58 Basic Metabolic Profile (BMP) Comments: [facility] [address] [place], [place], [address] GAP 7 (Normal) Range: 5-15 CO2 32.0 [...] Range: 70-110 :58 Prothrombin Time w/INR Comments: [facility] [address] [place], [place], [address] INR 1.9 (Normal) PROTIME 20.9 s (Abnormal) Range: 11.7-14.9 :08 Prothrombin Time w/INR Comments: [facility] [address] [place], [place], [address] INR 3.3 (Normal) PROTIME 32.5 s (Abnormal) Range: 11.7-14.9 :34 Prothrombin Time w/INR Comments: [facility] [address] [place], [place], [address] ; managed by cardio INR 2.6 (Normal) PROTIME 27.0 s (Abnormal) Range: 11.7-14.9 :16 HgA1C , Office (07743) HgA1C , Office 5.7 % (Normal) Range: 4.6 - 7.1 :13 Prothrombin Time w/INR Comments: [facility] [address] [place], [place], [address] INR 2.6 (Normal) PROTIME 27.1 s (Abnormal) Range: 11.7-14.9 :26 CBC W/Diff, Automated Comments: [facility] [address] [place], [place], [address](582) Absolute Lymph 1.54 {X10_3/ul} (Normal) Range: 0.83-4.51 [...] 4.6-6.2 WBC 6.3 K/mm3 (Normal) Range: 4.4-11.0 :26 Comprehensive Metabolic Profil Comments: ORDERED PT/INRDR.IRVIN ORDERED VITD LIPID MAG CBCD CMP [facility] [address]ich[address]xh[address] [place], [place], [address] GAP 4 (Abnormal) Range: 5-15 CO2 28.0 [...] 7-18 GLU 100 mg/dL (Normal) Range: 70-110 :26 Lipid Profile Comments: ORDERED PT/INRDR.IRVIN ORDERED VITD LIPID MAG CBCD CMP [facility] [address]zgbkmfo6[address] [place], [place], [address] VLDL 72 mg/dL (Abnormal) Range: 5-40 LDL [...] ORDERED PT/INRDR.IRVIN ORDERED VITD LIPID MAG CBCD [facility] Cbxmeieefx0827 [facility] [place], [address] MG 2.6 mg/dL (Abnormal) Range: 1.8-2.4 :26 Microalb:Creat Ratio,Random UR Comments: [facility] Owanikanqq8675 [facility] [place], [address] MALB:CREAT 24.3 {mg/g_CRE} (Normal) MICROALBUMIN,UR 70.9 mg/L (Normal) UR CREAT 292.00 mg/dL (Normal) :26 Prothrombin Time w/INR Comments: [facility] [address] [place], [address] INR 3.5 (Abnormal) Comments: CRITICAL VALUE REPEATED AND VERIFIED. CALLED TO ORTIZ LABOY'S OFFICE.03/16/16 0742 Randy Buchanan.RESULTS READ BACK BY SAME. PROTIME 33.9 s (Abnormal) Range: 11.7-14.9 :26 Thyroid Stim Hormone (TSH) Comments: ORDERED PT/INRDRABELARDO ORDERED VITD LIPID MAG CBCD [facility] [address]mpvjwb[address] [place], [address] TSH 2.35 {uIU/mL} (Normal) Range: 0.358-3.74 :26 Urinalysis, Complete Comments: How was Urine Obtained? CLEAN [facility] [address]uwtdoai[address] [place], [address] HYALINE CAST 5-10 SEEN {/lpf} (Normal) Range: [...] Yellow (Normal) :26 Vitamin D,25 Hydroxy Comments: [facility] [address]jpwqenqzb6342 [place], [address] Vitamin D 25-OH 39.8 ng/mL (Normal) Comments: Vitamin D 25(OH) Status Range Deficiency <20 ng/mL (50nmol/L) Insuffciency 20 - 30 ng/mL (50 - 75 nmol/L) Sufficiency 30 - 100 ng/mL (75 - 250 nmol/L) Toxicity >100 ng/mL (>250 nmol/L) :03 Prothrombin Time w/INR Comments: [facility] V[address]uzhfn24[address] [place], [address] INR 4.0 (Abnormal) Comments: CRITICAL VALUE REPEATED AND VERIFIED. CALL[facility] TO [facility]03/[facility]16 0907 Alice Luque.RESULTS READ BACK BY SAME . PROTIME 37.4 s (Abnormal) Range: 11.7-14.9 :57 Prothrombin Time w/INR Comments: [facility] [id number] [place], [address] INR 1.6 (Normal) PROTIME 18.3 s (Abnormal) Range: 11.7-14.9 :02 Prothrombin Time w/INR Comments: [facility] [id number] [place], [address] INR 1.8 (Normal) PROTIME 20.6 s (Abnormal) Range: 11.7-14.9 :12 Prothrombin Time w/INR Comments: [facility] [id number] [place], [address] INR 2.3 (Normal) PROTIME 24.4 s (Abnormal) Range: 11.7-14.9 [id number] Prothrombin Time w/INR Comments: [facility] [id number] [place], [address] INR 2.8 (Normal) PROTIME 28.9 s (Abnormal) Range: 11.7-14.9 [id number] INR Fingerstick Comments: [facility] [place] [address] [place] [address] INR ISTAT 2.40 (Normal) Comments: Critical Value > 3.5 :40 Prothrombin Time Fingerstick Comments: [facility] [id number] [place] [address] PROTIME ISTAT 27.5 {SEC} (Abnormal) Range: 11.9-14.4 Comments: Reference Range 11.9 - 14.4 :54 Prothrombin Time w/INR Comments: THERE IS NO VRO CHARGE ON THIS PATIENT; THIS PATIENTRETURNED FROM TUESDAY. A BMP AND A PT WAS SUPPOSED TO BEDRAWN, ONLY THE BMP WAS DONE. [facility] [id number] [place], [address] INR 2.8 (Normal) PROTIME 28.4 s (Abnormal) Range: 11.7-14.9 82-Tof-[id number]:38 Basic Metabolic Profile (BMP) Comments: Order Date: 01/08/16Comments: Reason:Order Date: 01/08/16Comments: Reason:[facility] [address] [place], [id number] GAP 9 (Normal) Range: 5-15 CO2 25.0 [...] A.D.A. criteria. :52 Prothrombin Time w/INR Comments: [facility] [address] [place], [address] INR 4.6 (Abnormal) Comments: CRITICAL VALUE REPEATED AND VERIFIED. CALLED TO [facility]02/05/16 1003 Alice Luque.RESULTS READ BACK BY SAME . PROTIME 41.9 s (Abnormal) Range: 11.7-14.9 :01 Prothrombin Time w/INR Comments: [facility] [address] [place], [place], [id number] INR 2.5 (Normal) PROTIME 26.0 s (Abnormal) Range: 11.7-14.9 :40 Prothrombin Time w/INR Comments: [facility] [address] [place], [place], [phone](261) INR 2.5 (Normal) PROTIME 26.1 s (Abnormal) Range: 11.7-14.9 :52 Prothrombin Time w/INR Comments: [facility] [address] [place], [place], [phone](278) INR 2.3 (Normal) PROTIME 24.3 s (Abnormal) Range: 11.7-14.9 :24 Basic Metabolic Profile (BMP) Comments: Order Date: 01/13/16Comments: Reason: For Out patient Cardioversion on 02/16/16Order Date: 01/13/16Comments: Reason: For Out patient [facility]16[facility] [address] [place], [place], [phone] GAP 5 (Normal) Range: 5-15 CO2 33.0 [...] 7-18 GLU 108 mg/dL (Normal) Range: 70-110 :45 Basic Metabolic Profile (BMP) Comments: Order Date: 12/09/15Interface Comments: Reason:Order Date: 12/09/15[facility] [address] [place], [phone] GAP 9 (Normal) Range: 5-15 CO2 29.0 [...] 01/05/16Interface Comments: Reason:Atrial fib, on CoumadinOrder Date: 01/05/16[facility] [address], [address] INR 3.6 (Abnormal) Comments: CRITICAL VALUE REPEATED AND VERIFIED. CALLED TO CANDACE P001/07/16 0819 Terrie Toussaint.RESULTS READ BACK BY CANDCAE. PROTIME 34.9 s (Abnormal) Range: 11.7-14.9 :21 Prothrombin Time w/INR Comments: [facility] [address] [place], [place], [phone] INR 2.1 (Normal) PROTIME 23.1 s (Abnormal) Range: 11.7-14.9 :12 Prothrombin Time w/INR Comments: Order Date: 12/26/15Interface Comments: draw on arrivalOrder Date: 12/26/15[facility] Rfgissdwlp1643 ALYSA Maki, [id number](003) INR 2.9 (Normal) PROTIME 29.2 s (Abnormal) Range: 11.7-14.9 25-Apf-347589:08 Prothrombin Time w/INR Comments: [facility] [address] [place], [address] INR 1.7 (Normal) PROTIME 19.6 s (Abnormal) Range: 11.7-14.9 95-Pxr-95622:03 Prothrombin Time w/INR Comments: Order Date: 12/18/15Order Date: 12/18/15[facility] Zhperxteym0642 ALYSA Maki, [address](237) INR 4.1 (Abnormal) Comments: CRITICAL VALUE REPEATED AND VERIFIED. CALLED TO DARRYL LABOY'S OFFICE.12/23/15 0803 Randy Buchanan.RESULTS READ BACK BY SAME. PROTIME 38.6 s (Abnormal) Range: 11.7-14.9 1-Khh-769293:16 Basic Metabolic Profile (BMP) Comments: Order Date: 12/18/15Interface Comments: Reason:Order Date: 12/18/15[facility] [address] [place], [address](150) GAP 9 (Normal) Range: 5-15 CO2 28.0 [...] A.D.A. criteria. :11 Prothrombin Time w/INR Comments: [facility] [address] [place], [place], [address] INR 3.6 (Abnormal) Comments: CRITICAL VALUE REPEATED AND VERIFIED. CALLED TO [facility],RN12/16/15 Ondina Luque.RESULTS READ BACK BY SAME . PROTIME 34.5 s (Abnormal) Range: 11.7-14.9 :10 Basic Metabolic Profile (BMP) Comments: Order Date: 12/04/15Interface Comments: Reason:Order Date: 12/04/15[facility] [address] [place], [place], [phone] GAP 8 (Normal) Range: 5-15 CO2 28.0 [...] Comments: Order Date: 12/04/15Interface Comments: Reason:Order Date: 12/04/15[facility] [address] [place], [phone] VLDL Test not performed mg/dL (Normal) Range: [...] Comments: Order Date: 12/04/15Interface Comments: Reason:Order Date: 12/04/15[facility] [address] [place], [phone] D BILI 0.11 mg/dL (Normal) Range: 0.00-0.30 T BILI 0.30 mg/dL (Normal) Range: 0.20-1.00 ALT 63 U/L (Normal) Range: 12-78 ALK P 64 U/L (Normal) Range: 50-136 AST 33 U/L (Normal) Range: 15-37 GLOB 3.2 g/dL (Normal) Range: 2.3-3.5 ALB 3.5 g/dL (Normal) Range: 3.4-5.0 T PROT 6.7 g/dL (Normal) Range: 6.4-8.2 93-Zrd-68507:10 Magnesium Comments: Order Date: 12/04/15Interface Comments: Reason:Order Date: 12/04/15[facility] [address] [place], [phone] MG 2.1 mg/dL (Normal) Range: 1.8-2.4 :10 Prothrombin Time w/INR Comments: Order Date: 12/04/15Interface Comments: Reason:Order Date: 12/04/15[facility] Mmtxnfwtjf8706ALYSA Flynn, [id number] INR 1.7 (Normal) PROTIME 19.3 s (Abnormal) Range: 11.7-14.9 :10 Thyroid Stim Hormone (TSH) Comments: Order Date: 12/04/15Interface Comments: Reason:Order Date: 12/04/15[facility] Dterwufcme8659 ALYSA Maki, [address] TSH 1.65 {uIU/mL} (Normal) Range: 0.358-3.74 :41 MAGNESIUM (52025) Comments: PATIENT NOT FASTINGPERFORMED BY: [employer]70 [facility] [id number] Magnesium, Serum 2.1 mg/dL (Normal) Range: 1.6-2.3 [...] Panel, Basic Comments: PATIENT NOT FASTINGPERFORMED BY: [employer]70 [facility] [id number] Information: [id number] ([id number]) Calcium, Serum 9.1 mg/dL (Normal) Range: 8.6-10.2 [...] Range: 65-99 :21 Blood Glucose , Office (72289) Blood Glucose , Office 99 (Normal) :21 HgA1C , Office (90270) HgA1C , Office 5.0 % (Normal) Range: 4.6 - 7.1 :49 RETICULOCYTE COUNT (09301) Comments: PATIENT NOT FASTINGPERFORMED BY: [facility] TrustedHack[facility] Medical CenterOudrjq8620 [facility] [id number] Reticulocyte Count 2.4 % (Normal) Range: 0.6-2.6 :49 VITAMIN B-12 (CYANOCOBALAMIN) Comments: PATIENT NOT FASTINGPERFORMED BY: LabBioGenericsHack[facility] Medical CenterFsivxh9703 [facility] [id number] Information: [id number] (78701) Vitamin B12 560 pg/mL (Normal) Range: 211-946 :36 Bilirubin, Direct Comments: [facility] [address] [place], [place], [address] D BILI 0.14 mg/dL (Normal) Range: 0.00-0.30 :36 CBC W/Diff, Automated Comments: [facility] [address] [place], [place], [address] Absolute Lymph 1.26 {X10_3/ul} (Normal) Range: 0.83-4.51 [...] 4.6-6.2 WBC 5.1 K/mm3 (Normal) Range: 4.4-11.0 :36 Comprehensive Metabolic Profil Comments: [facility] [address] [place], [address] GAP 6 (Normal) Range: 5-15 CO2 30.0 [...] per A.D.A. criteria. :36 Lipid Profile Comments: [facility] [address] [facility] [address] [place], [place], [phone] VLDL 62 mg/dL (Abnormal) Range: 5-40 LDL [...] High Risk :36 Microalb:Creat Ratio,Random UR Comments: [facility] [address] [place], [place], [address] MALB:CREAT 142.0 {mg/g_CRE} (Abnormal) MICROALBUMIN,UR 223.0 mg/L (Normal) UR CREAT 157.00 mg/dL (Normal) :36 Thyroid Stim Hormone (TSH) Comments: [facility] [address] [place], [address] TSH 1.17 {uIU/mL} (Normal) Range: 0.358-3.74 :36 Urinalysis, Complete Comments: How was Urine Obtained? CLEAN [facility] [address] [place], [address] MUCUS, URINE 0 SEEN {/hpf} (Normal) [...] Yellow (Normal) :36 Vitamin D,25 Hydroxy Comments: [facility] [address] [place], [address] Vitamin D 25-OH 21.0 ng/mL (Normal) Comments: Vitamin D 25(OH) Status Range Deficiency <20 ng/mL (50nmol/L) Insuffciency 20 - 30 ng/mL (50 - 75 nmol/L) Sufficiency 30 - 100 ng/mL (75 - 250 nmol/L) Toxicity >100 ng/mL (>250 nmol/L) :29 HgA1C , Office (26756) HgA1C , Office 5.6 % (Normal) Range: 4.6 - 7.1 :29 Blood Glucose , Office (17916) Blood Glucose , Office 96 (Normal) :29 CBC W/Diff, Automated Comments: [facility] [address] [place], [address] Absolute Lymph 2.04 {X10_3/ul} (Normal) Range: 0.83-4.51 [...] 4.6-6.2 WBC 7.9 K/mm3 (Normal) Range: 4.4-11.0 :29 Comprehensive Metabolic Profil Comments: [facility] [address] [place], [place], [address] GAP 12 (Normal) Range: 5-15 CO2 25.0 [...] <126 mg/dLsuggests IMPAIRED HOMEOSTASIS per A.D.A. criteria. 06-Pcx-580361:16 Rapid Flu (76067 x 2) Influenza A Ag neg a and b (Normal) :13 Basic Metabolic Profile (BMP) Comments: [facility] [address] [place], [place], [address] GAP 4 (Abnormal) Range: 5-15 CO2 33.0 [...] (Normal) Range: 70-110 :50 HgA1C , Office (15085) HgA1C , Office 5.2 % (Normal) Range: 4.6 - 7.1 :50 Blood Glucose , Office (65863) Blood Glucose , Office 111 (Normal) :48 Basic Metabolic Profile (BMP) Comments: [facility] [address] [place], [address] GAP 7 (Normal) Range: 5-15 CO2 31.0 [...] A.D.A. criteria. :48 T4 Total, Thyroxin Comments: [facility] [address] [place], [place], [address] T4 THYROXIN 6.7 ug/dL (Normal) Range: 4.5-12.1 :48 Thyroid Stim Hormone (TSH) Comments: [facility] [address] [place], [place], [address] TSH 1.02 {uIU/mL} (Normal) Range: 0.358-3.74 :35 CBC W/Diff, Automated Comments: [facility] [address] [place], [place], [address] Absolute Lymph 1.13 {X10_3/ul} (Normal) Range: 0.83-4.51 [...] Range: 4.4-11.0 :35 Comprehensive Metabolic Profil Comments: [facility] [address] [place], [place], [phone] GAP 5 (Normal) Range: 5-15 CO2 31.0 [...] (Normal) Range: 70-110 :35 Lipid Profile Comments: [facility] [address] [place], [place], [address] VLDL 44 mg/dL (Abnormal) Range: 5-40 LDL [...] High Risk :35 Microalb:Creat Ratio,Random UR Comments: [facility] [address] [facility] [address] [place], [place], [address] MALB:CREAT 31.9 {mg/g_CRE} (Abnormal) MICROALBUMIN,UR 31.7 mg/L (Normal) UR CREAT 99.40 mg/dL (Normal) :35 Thyroid Stim Hormone (TSH) Comments: [facility] [address] [facility] [place], [address] TSH 1.05 {uIU/mL} (Normal) Range: 0.358-3.74 :35 Urinalysis, Complete Comments: How was Urine Obtained? CLEAN [facility] [address] [facility] [place], [address] MUCUS, URINE 0 SEEN {/hpf} [...] COLOR Yellow (Normal) :48 HgA1C , Office (91962) HgA1C , Office 5.2 % (Normal) Range: 4.6 - 7.1 :48 Blood Glucose , Office (11616) Blood Glucose , Office 114 (Normal) :03 MRSA/SAID SCREEN Comments: [facility] [address] [place], [address] MRSA+SAID SCRN See Note (Normal) Comments: MRSA/SAID SCRNS. AUREUS S. aureus NegativeMRSA MRSA Negative :13 CBC W/Diff, Automated Comments: Test performed at:[facility] U[address]odmvfrtv26[address] [facility] [place] [address] Absolute Lymph 1.57 {X10_3/ul} (Normal) [...] :13 Comprehensive Metabolic Profil Comments: Test performed at:[facility] [address] [place], [place] [address] GAP 4 (Abnormal) Range: 5-15 CO2 31.0 [...] 70-110 :13 Lipid Profile Comments: Test performed at:[facility] Rcmm[address]cpip0[address] [facility] [place] [address] VLDL 35 mg/dL (Normal) Range: [...] :13 Microalb:Creat Ratio,Random UR Comments: Test performed at:[facility] [address] [place] [address] MALB:CREAT 5.0 {mg/g_CRE} (Normal) MICROALBUMIN,UR 5.2 mg/L (Normal) UR CREAT 89.50 mg/dL (Normal) :13 Thyroid Stim Hormone (TSH) Comments: Test performed at:[facility] [address] [place] [address] TSH 0.97 {uIU/mL} (Normal) Range: 0.358-3.74 :13 Urinalysis, Routine (Dipstick) Comments: How was Urine Obtained? CLEAN CATCHTest performed at:[facility] [address] [place] [address] LEUK ESTERASE Negative /ul (Normal) OCCULT BLOOD-UR Negative /ul (Normal) NITRITE UR Negative (Normal) UROBILI Normal mg/dL (Normal) PROT DIPSTX Negative mg/dL (Normal) pH UR 6.0 (Normal) Range: 5.0 - 8.0 SP.GR. DIPSTX 1.015 (Normal) Range: 1.002-1.030 KETONE UR Negative mg/dL (Normal) BILIRUBIN URINE Negative mg/dL (Normal) GLUCOSE, UR Normal mg/dL (Normal) CLARITY Clear (Normal) COLOR Yellow (Normal) :35 HgA1C , Office (86703) HgA1C , Office 5.7 % (Normal) Range: 4.6 - 7.1 :35 Blood Glucose , Office (48840) Blood Glucose , Office 111 (Normal) :40 Miscellaneous Lab Procedure Comments: Comments: DRUG SCREEN [id number]) Ordered: DRUG SCREEN [id number] performed at:[facility] [address] [place], [place] [id number] ; [facility] by [facility] Comments: [id number] 6+OXYCODONE-BUND (ng/mL)DRUG RESULT SCREEN CUTOFF____ Amphetamines NEGAT LAB (Normal) BARI ng/mL 1000Barbiturates NEGATIVE ng/mL 200Benzodiazepines NEGATIVE ng/mL 200Cannabinoid NEGATIVE ng/mL 20Cocaine (Metab) NEG TEST ATIVE ng/mL 300Opiates NEGATIVE ng/mL 300 Opiates test includes Codeine, Morphine, Hydromorphone, Hydrocodone.Oxycodone/Oxymorphone,Urine NEGATIVE ng/mL 300 Test includes Oxydodone and Oxymorphone. TESTING PERFORMED AT [facility]. ORIGINAL REPORT ON FILE IN LAB CONTAINS ADDITIONAL TEST SITE INFORMATIO N. :40 Urine Drug Screen (VISTA) Comments: Comments: DRUG SCREEN [id number] of Drugs Taken or Suspected? .Test performed at:[facility] [address] [place], [place] [address] THC NEGATIVE (Normal) PCP NEGATIVE (Normal) OPIATES [...] Hydroxy Comments: Has pt arrived? YTest performed at:[facility] [address]mv[address]vx15[address] [facility] [place] [address] Vitamin D 25-OH 38.2 ng/mL (Normal) Comments: Vitamin D 25(OH) Status Range Deficiency <20 ng/mL (50nmol/L) Insuffciency 20 - 30 ng/mL (50 - 75 nmol/L) Sufficiency 30 - 100 ng/mL (75 - 250 nmol/L) Toxicity >100 ng/mL (>250 nmol/L) :24 Urinalysis, Routine (Dipstick) Comments: Has pt arrived? YHow was Urine Obtained? CLEAN CATCHTest performed at:[facility] [address] [facility] [address] LEUK ESTERASE Negative /ul (Normal) [...] pt arrived? YHas pt arrived? YTest performed at:[facility] [address] [facility] [address] GAP 5 (Normal) Range: 5-15 [...] pt arrived? YHas pt arrived? YTest performed at:[facility] [address] [place], [place] [address] VLDL 12 mg/dL (Normal) Range: 5-40 LDL [...] UR Comments: Has pt arrived? YTest performed at:[facility] [address] [place] [address] MALB:CREAT 4.2 {mg/g_CRE} (Normal) MICROALBUMIN,UR 5.6 mg/L (Normal) UR CREAT 131.9 mg/dL (Normal) :23 Thyroid Stim Hormone (TSH) Comments: Has pt arrived? YHas pt arrived? YTest performed at:[facility] [address] [facility] [address] [place], [place] [address] TSH 1.09 {uIU/mL} (Normal) Range: 0.358-3.74 :22 CBC W/Diff, Automated Comments: Has pt arrived? YTest performed at:[facility] [address] [facility] [address] Absolute Lymph 1.37 {X10_3/ul} (Normal) Range: 0.83-4.51 [...] (Abnormal) Range: 4.4-11.0 :54 HgA1C , Office (79966) HgA1C , Office 5.8 % (Normal) Range: 4.6 - 7.1 :02 Basic Metabolic Profile (BMP) Comments: ADDED BMPTest performed at:[facility] F[address]89[address] [facility]. [place], [place] [address] GAP 6 (Normal) Range: 5-15 CO2 27.0 [...] 70-110 :02 Lipid Profile Comments: Test performed at:[facility] Xrbs[address]oxpv8753 [facility]. [place], [place] [address] VLDL 96 mg/dL (Abnormal) Range: 5-40 LDL Test not performed mg/dL (Normal) Range: 0-130 HDL 44 mg/dL (Normal) Comments: Reference Range HDL <40 mg/dL Low HDL Cholesterol HDL >or= 60 mg/dL High HDL Cholesterol TRIG 482 mg/dL (Abnormal) Range: 0-199 Comments: TRIGLYCERIDE IS GREATER THAN 400 mg/dL.LDL RESULT IS INVALID AND WILL NOT BE REPORTED.Serum Triglycerides Reference Interval Normal <150 mg/dL Hazel myrick high 150 - 199 mg/dL High 200 - 499 mg/dL Very High > or = 500 mg/dL CHOL 213 mg/dL (Abnormal) Comments: <200 mg/dL Desirable 200-240 mg/dL Borderline >240 mg/dL High Risk :02 Liver Profile Comments: Test performed at:[facility] [address] [place] [address] D BILI 0.10 mg/dL (Normal) Range: 0.00-0.30 [...] performed using the TPSA assay method for the[employer] chemistry system. Values obtained with differentassay methods [...] UCOL Yellow (Normal) :25 HgA1C , Office (82978) HgA1C , Office 5.8 % (Normal) Range: 4.6 - 7.1 :10 Blood Glucose , Office (64872) Blood Glucose , Office 83 (Normal) :10 HgA1C , Office (62449) HgA1C , Office 5.7 % (Normal) Range: [...] 4.4-11.0 BASOPHIL 1 % (Normal) Range: 0-1 71-Edq-91393:52 COMP METABOLIC Comments: appt 05/2011 GAP 7 [...] 08/13/10 1143 Sign by: JESS HENDRICKS MD 97-Osd-014211:21 COMPLETE UA BACTERIA 0 SEEN {/hpf} (Normal) [...] NEGATIVE 0.06 - 0.59 AT RISK OF NM > OR = 0.60 SUGGEST NM :52 COMP METABOLIC Comments: Please Note: TROPONIN [...] 0.8-1.3 GLU 94 mg/dL (Normal) Range: 70-110 79-Fyw-15719:21 COMP METABOLIC GAP 10 (Normal) Range: 5-15 [...] 7-18 GLU 98 mg/dL (Normal) Range: 70-110 97-Nbm-99359:21 LIPID Comments: appt 07/24/10 VLDL 33 mg/dL [...] 200-240 mg/dL Borderline >240 mg/dL High Risk 9-Wze-098263:52 KIDNEY Radiology Report See Note (Normal) Comments: [...] of the bilateral kidneys. Dictated on 05/15/10 12 44 by Moshe Manuelranscribed on 05/16/1031 by ITS IMPORTSign by Osvaldo Manuel on [...] 7-18 GLU 89 mg/dL (Normal) Range: 70-110 14-Mar-20107:23 COMPLETE UA BACTERIA 0 SEEN {/hpf} (Normal) [...] CHOL 127 mg/dL (Normal) Comments: <200 mg/dL Bqepsmzoy344-486 mg/dL Borderline>240 mg/dL High Risk :10 CBCD Comments: ORDERED GREG ALAMO ORDERED RENAL CBCD ABSOLUTE NEUT 6.7 3/uL [...] (Normal) Range: 4.4-11.0 :10 RENAL Comments: ORDERED GREG ALAMO ORDERED RENAL CBCD CL 104 mmol/L [...] CHOL 146 mg/dL (Normal) Comments: <200 mg/dL Hrffubcuo201-164 mg/dL Borderline>240 mg/dL High Risk TRIG 166 [...] Report See Note (Normal) Comments: Exam Number: [id number] CLINICAL: Fatigue MRI BRAIN WITH AND WITHOUT [...] of remotetrauma. Reported By: HUEY ERAZO M.D. 90-Myb-185965:19 CHIQUI-D [id number] CHIQUI-DIRECT SeeNote (Normal) Comments: Result: NegativePerformed At: [facility] [address]qxdt5705 [place], [place] [id number] 48-Lgn-064764:07 B12/FOLATES FOLATES 26.50 ng/mL (Abnormal) Range: 3.1-17.5 VITAMIN B12 1068 pg/mL (Normal) Range: 254-1320 92-Too-420917:07 RHEUMATOID FAC < 10 {IU/mL} (Normal) :07 TSH 0.59 {uIU/mL} (Normal) Range: 0.358-3.74 :07 C-REACTIVE PROT 3.09 mg/L (Abnormal) Range: 0.0-3.0 [...] 6.4-8.2 GLU 75 mg/dL (Normal) Range: 70-110 :28 ESR SED RATE 6 mm/h (Normal) Range: 0-20 :28 CBCD BASO% 0.5 % (Normal) Range: 0-1 [...] 4.6-6.2 WBC 9.4 K/mm3 (Normal) Range: 4.4-11.0 8-Czs-018024:18 CULTURE, THROAT See Note (Normal) Comments: Normal throat susanne isolated. No beta-hemolyticstreptococcus isolated. 14-Apr-20098:48 Rapid Strep Test, Office (82969) Rapid Strep Test, Office Negative (Normal) 2-Xnx-873873:59 CTA NECK W/WO CONTRAST Radiology Report See Note (Normal) Comments: Exam Number: [id number] HISTORYCarotid stenosis. Abnormal carotid artery ultrasound. CT [...] K 4.5 mmol/L Range: 3.5-5.1 0:00 (Normal) 91-Kvu-433705:19 BMP BUN 35 mg/dL (Abnormal) Range: 7-18 [...] 3.5-5.1 NA 142 mmol/L (Normal) Range: 136-145 47-Qtk-64930:15 CBCD,SMEAR DIFF BAND 1 % (Normal) Range: [...] 254-1320 :43 FECAL OCCULT- Tubes sent home (03099) FECAL OCCULT HGB ASSAY, QUAL, 1-3 SIMULTANEOU neg (Normal) :12 Rapid Flu (31344 x 2) Comments: done INFLUENZA IMMUNOASSY DIRECT OPTICAL OBSERV Negative (Normal) [...] was performed using the TPSA method for [facility] chemistry system.Values obtained with different assay methods [...] GLU 2 HR GLU GTT-2 HOUR from 918:[id number]. Range: 70-120 :05 GLU GTT-1 HOUR 183 mg/dL (Abnormal) Comments: 2HR GTT GLU 1 HR GLU GTT-1 HOUR from 918:[id number]. Range: 120-170 :31 GLU GTT-30 min. 170 mg/dL (Normal) Comments: 2HR GTT GLU 1/2 HR GLU GTT-30 min. from 918:[id number]. Range: 110-170 :00 D BILI 0.09 mg/dL [...] Comments: 2HR GTT FASTING GLU GTT-FASTING from 0919:[id number]. Range: 70-110 Comments: GLUCOSE TOLERANCE TEST Reference [...] was performed using the TPSA method for the[employer] chemistry system.Values obtained with different assay methods [...] Plan of Care Name Dates Details Instructions Impaired fasting glucose : Follow up in 4 months Indication: Impaired fasting glucose Impaired fasting glucose : *Diabetes Education Indication: Impaired fasting glucose Hypercholesterolemia : Cholesterol mgmt Indication: Hypercholesterolemia 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 Indication: Hypertension with heart disease Hypertension with heart disease : Continue Current Prescription(s) Indication: Hypertension with heart disease Coronary artery disease, non-occlusive : Reviewed Telephone Clerks Supervisor Letter Indication: Coronary artery disease, non-occlusive BMI 40.0-44.9, adult : Eprescribed prescriptions (G8553) Indication: BMI 40.0-44.9, adult Impaired fasting glucose : Follow up in 4 months Indication: Impaired fasting glucose Coronary artery disease, non-occlusive : Reviewed Telephone Clerks Supervisor Letter Indication: Coronary artery disease, non-occlusive Hypertension [...] controlled Coronary artery disease, non-occlusive : Reviewed Telephone Clerks Supervisor Letter Indication: Coronary artery disease, non-occlusive Hypertension [...] glucose Coronary artery disease, non-occlusive : Reviewed Telephone Clerks Supervisor Letter Indication: Coronary artery disease, non-occlusive 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 Indication: Hypertension with heart disease Impaired fasting glucose : *Diabetes Education Indication: Impaired fasting glucose Nonsmoker : Eprescribed prescriptions (G8553) Indication: Nonsmoker Depression, acute : Reviewed Telephone Clerks Supervisor Letter Indication: Depression, acute Other chronic pain : Reviewed Lab Indication: Other chronic pain Depression, acute : Follow up in 2 weeks Indication: Depression, acute Accidental fall, initial encounter : Follow up in 1 week Indication: Accidental fall, initial encounter Depression : Reviewed Lab Indication: Depression Depression : Reviewed Diagnostic Tests Indication: Depression Depression : Reviewed Telephone Clerks Supervisor Letter Indication: Depression Cellulitis : Eprescribed prescriptions (G8553) Indication: Cellulitis Cellulitis : Follow up in 1 week Indication: Cellulitis Nonsmoker : Eprescribed prescriptions (G8553) Indication: Nonsmoker Hypertension with heart disease : Reviewed Lab Indication: Hypertension with heart disease Impaired fasting glucose : Follow up in 4 months Indication: Impaired fasting glucose Hypertension with heart disease : Reviewed Telephone Clerks Supervisor Letter Indication: Hypertension with heart disease Hypertension [...] artery disease Coronary artery disease : Reviewed Telephone Clerks Supervisor Letter Indication: Coronary artery disease Carotid stenosis : Reviewed Telephone Clerks Supervisor Letter Indication: Carotid stenosis Hypercholesterolemia : Cholesterol [...] : Follow up in 1.5 month- medicare physcial Indication: Impaired fasting glucose Impaired fasting glucose : Follow up in 4 months- general medical visit Indication: Impaired fasting glucose 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 Indication: Hypertension with heart disease Hypercholesterolemia : Cholesterol mgmt Indication: Hypercholesterolemia Coronary artery disease : Reviewed Diagnostic Tests Indication: Coronary artery disease Coronary artery disease : Reviewed Telephone Clerks Supervisor Letter: sees Dr Maria Indication: Coronary artery disease Impaired fasting glucose : Eprescribed prescriptions (G8553) Indication: Impaired fasting glucose Hypercholesterolemia : Cholesterol mgmt Indication: Hypercholesterolemia Coronary artery disease : Continue Current Prescription(s) Indication: Coronary artery disease Coronary artery disease : Reviewed Telephone Clerks Supervisor Letter Indication: Coronary artery disease 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 Indication: Hypertension with heart disease Hypertension with heart disease : Follow up in 4 months Indication: Hypertension with heart disease Impaired fasting glucose : Eprescribed prescriptions (G8553) Indication: Impaired fasting glucose Coronary artery disease : Reviewed Telephone Clerks Supervisor Letter Indication: Coronary artery disease Impaired fasting [...] Indication: Hypercholesterolemia Coronary artery disease : Reviewed Telephone Clerks Supervisor Letter Indication: Coronary artery disease Impaired fasting [...] MONTHS Indication: Coronary artery disease Planned Observations HgA1C , Office ([id number])Indication: Impaired fasting glucose On: 73-Idp-336929:57 Request TSH ([id number])Indication: Atrial fibrillation, controlled On: 15-Apr-20177:30 Request URINALYSIS, W/ MICRO ([id number])Indication: Hypertension with heart disease On: 15-Apr-20177:30 Request MICROALBUMIN: CREATININE RATIO (08853) AND (99116)Indication: Hypertension with heart disease On: :30 Request METABOLIC PANEL, COMPREHENSIVE (39584)Indication: Hypertension with heart disease On: :30 Request LIPID PANEL (11728)Indication: Coronary artery disease, non-occlusive On: :30 Request CBC W/AUTO DIFF WBC (64930)Indication: Hypertension with heart disease On: :29 Request VITAMIN B-12 (CYANOCOBALAMIN) (80486)Indication: Vitamin B12 deficiency On: :29 Request CALCIFIDIOL (34296) VIT D 25Indication: Vitamin D deficiency On: :29 Request VITAMIN B-12 (CYANOCOBALAMIN) (45166)Indication: Vitamin B12 deficiency On: :36 Request CALCIFIDIOL (08361) VIT D 25Indication: Vitamin D deficiency On: :35 Request TSH (01715)Indication: Impaired fasting glucose On: :34 Request URINALYSIS, W/ MICRO (79861)Indication: Hypertension with heart disease On: :34 Request MICROALBUMIN: CREATININE RATIO (51405) AND (62287)Indication: Hypertension with heart disease On: :34 Request METABOLIC PANEL, COMPREHENSIVE (29940)Indication: Hypertension with heart disease On: :34 Request LIPID PANEL (48070)Indication: Hypercholesterolemia On: :34 Request CBC W/AUTO DIFF WBC (38092)Indication: Hypertension with heart disease On: :34 Request RIBOFLAVIN (B-2) (21920)Indication: Drug intoxication with delirium On: 11-Zlu-868820:09 Request LIPID PANEL (71243)Indication: Hypercholesterolemia On: :35 Request VITAMIN B-12 (CYANOCOBALAMIN) (44993)Indication: Vitamin B12 deficiency On: :28 Request CALCIFIDIOL (52444) VIT D 25Indication: Vitamin D deficiency On: :27 Request MAGNESIUM (13207)Indication: Hypermagnesemia On: :27 Request FECAL OCCULT- Tubes sent home (27965)Indication: Encounter for screening for malignant neoplasm of colon (Renamed from Special screening for malignant neoplasms, colon) On: : Request PSA (PROSTATE SPECIFIC ANTIGEN) (V76.44)Indication: Encounter for screening for malignant neoplasm of prostate (Renamed from Screening for prostate cancer) On: : Request TSH ([id number])Indication: Impaired fasting glucose On: : Request URINALYSIS, W/ MICRO (13167)Indication: Impaired fasting glucose On: :22 Request MICROALBUMIN: CREATININE RATIO (71193) AND ([id number])Indication: Impaired fasting glucose On: :22 Request METABOLIC PANEL, COMPREHENSIVE (67163)Indication: Impaired fasting glucose On: : Request LIPID PANEL (71324)Indication: Hypercholesterolemia On: : Request CBC W/AUTO DIFF WBC (13916)Indication: Impaired fasting glucose On: : Request CALCIFIDIOL (79069) VIT D 25Indication: Vitamin D deficiency On: :21 Request HEPATIC FUNCTION PANEL (99624)Indication: Elevated liver enzymes On: 27-Rzy-245934:29 Request METABOLIC PANEL, COMPREHENSIVE (82577)Indication: Dizzy On: :54 Request CBC W/AUTO DIFF WBC ([id number])Indication: Dizzy On: 53-Saf-216479:54 Request FECAL OCCULT- Tubes sent home ([id number])Indication: Melena On: :52 Request CALCIFIDIOL (20850) VIT D 25Indication: Dysthymic On: 02-Van-783913:52 Request TSH ([id number])Indication: Hypercholesterolemia On: 49-Aej-601294:52 Request URINALYSIS, W/ MICRO ([id number])Indication: Hypertension with heart disease On: 66-Fna-078287:52 Request MICROALBUMIN: CREATININE RATIO (25970) AND (19643)Indication: Hypertension with heart disease On: 58-Kqs-111596:52 Request METABOLIC PANEL, COMPREHENSIVE (57638)Indication: Hypertension with heart disease On: 15-Krq-418257:52 Request LIPID PANEL (45935)Indication: Hypercholesterolemia On: :52 Request CBC W/AUTO DIFF WBC (27976)Indication: Hypertension with heart disease On: 23-Abm-104136:51 Request TSH ([id number])Indication: Impaired fasting glucose On: :45 Request URINALYSIS, W/ MICRO ([id number])Indication: Impaired fasting glucose On: :45 Request MICROALBUMIN: CREATININE RATIO (86269) AND ([id number])Indication: Impaired fasting glucose On: :45 Request METABOLIC PANEL, COMPREHENSIVE (89595)Indication: Impaired fasting glucose On: :45 Request LIPID PANEL (17719)Indication: Impaired fasting glucose On: :45 Request CBC W/AUTO DIFF WBC ([id number])Indication: Impaired fasting glucose On: :45 Request CALCIFIDIOL (28504) VIT D 25Indication: Impaired fasting glucose On: :55 Request LIPID PANEL (27723)Indication: Hypertension On: :50 Request TSH (58762)Indication: Impaired fasting glucose On: :50 Request MICROALBUMIN: CREATININE RATIO (78659) AND (21494)Indication: Hypertension On: :50 Request METABOLIC PANEL, COMPREHENSIVE (31859)Indication: Hypertension On: :50 Request MICROALBUMIN: CREATININE RATIO (99318) AND (57490)Indication: Hypertension On: :38 Request URINALYSIS (94708)Indication: Hypertension On: :36 Request CBC WITH MANUAL DIFF ([id number])Indication: Hypertension On: :36 Request Metabolic Panel, Comprehensive (80866)Indication: Hypertension On: :36 Request Lipid Panel (14829)Indication: Hypercholesterolemia On: :36 Request MICROALBUMIN: CREATININE RATIO (38965) AND (45102)Indication: Hypertension On: 29-Fcm-467811:57 Request URINALYSIS (06263)Indication: Hypertension On: 84-Vnn-053887:57 Request CBC WITH MANUAL DIFF ([id number])Indication: Hypertension On: 77-Jcq-242745:56 Request Metabolic Panel, Comprehensive (98797)Indication: Hypertension On: 37-Qys-084174:56 Request CALCIFEDIOL (18513)Indication: Hypertension On: 22-Oqq-670628:56 Request TSH ([id number])Indication: Hypertension On: 03-Fiy-444087:56 Request Lipid Panel (79175)Indication: Hypercholesterolemia On: 75-Skh-662072:56 Request Lipid Panel (89174)Indication: Hypercholesterolemia On: 29-Jwy-567190:13 Request URINALYSIS, W/ MICRO (09758)Indication: Hypertension On: :02 Request MICROALBUMIN: CREATININE RATIO ([id number]) AND (57597)Indication: Impaired fasting glucose On: : Request CBC W/AUTO DIFF WBC (15684)Indication: Impaired fasting glucose On: : Request METABOLIC PANEL, COMPREHENSIVE (67405)Indication: Impaired fasting glucose On: 6-Xdq-500794: Request PSA (PROSTATE SPECIFIC ANTIGEN) (V76.44)Indication: Benign prostatic hyperplasia with urinary obstruction and other lower urinary tract symptoms On: 15-Jan-20149:55 Request CREATINE KINASE TOTAL (10173)Indication: SOB (shortness of breath) on exertion On: :32 Request Comments: stat D-Dimer (07397)Indication: SOB (shortness of breath) on exertion On: :32 Request CBC (Auto) (41784)Indication: SOB (shortness of breath) on exertion On: :32 Request Troponin I (66470)Indication: SOB (shortness of breath) on exertion On: :31 Request CPK MB FRACTION (87043)Indication: SOB (shortness of breath) on exertion On: 11-Xka-879765:31 Request MICROALBUMIN: CREATININE RATIO (18505) AND (15794)Indication: Impaired fasting glucose On: :10 Request CBC WITH MANUAL DIFF (48097)Indication: Hypertension On: 04-Axu-458645:04 Request LIPID PANEL (68808)Indication: Hypercholesterolemia On: 19-Ltu-287362:04 Request METABOLIC PANEL, COMPREHENSIVE (48830)Indication: Hypertension On: 87-Mii-756999:04 Request CBC WITH MANUAL DIFF ([id number])Indication: Hypertension On: : Request URINALYSIS, W/ MICRO (90768)Indication: Hypertension On: : Request TSH (65658)Indication: Dysthymic On: : Request PSA (PROSTATE SPECIFIC ANTIGEN) (V76.44)Indication: Benign prostatic hyperplasia with urinary obstruction and other lower urinary tract symptoms On: : Request LIPID PANEL (97370)Indication: Hypercholesterolemia On: : Request METABOLIC PANEL, COMPREHENSIVE (98147)Indication: Hypertension On: : Request ASSAY, TROPONIN, QUANTITATIVE (aka Troponin I) (88923)Indication: SOB (shortness of breath) on exertion On: :08 Request Comments: stat D-Dimer (97809)Indication: SOB (shortness of breath) on exertion On: :08 Request Comments: stat URINALYSIS, W/ MICRO (29843)Indication: Edema On: : Request TSH ([id number])Indication: Edema On: : Request METABOLIC PANEL, COMPREHENSIVE (06841)Indication: Edema On: : Request CBC WITH MANUAL DIFF ([id number])Indication: Edema On: : Request URINE BERTHA CULTURE-SUKHWINDER COL COUNT (34422)Indication: PYELONEPHRITIS, ACUTE NOS On: :25 Request LIPID PANEL (41310)Indication: Hypercholesterolemia On: :12 Request METABOLIC PANEL, COMPREHENSIVE (63331)Indication: Hypertension On: :12 Request PSA (PROSTATE SPECIFIC ANTIGEN) (V76.44)Indication: Benign prostatic hyperplasia with urinary obstruction and other lower urinary tract symptoms On: :33 Request URINALYSIS, W/ MICRO (23879)Indication: Hypertension On: :33 Request CBC WITH MANUAL DIFF ([id number])Indication: Hypertension On: :33 Request METABOLIC PANEL, COMPREHENSIVE (89142)Indication: Hypertension On: :32 Request LIPID PANEL (71265)Indication: Hypercholesterolemia On: 73-Bqx-03739:32 Request CBC WITH MANUAL DIFF ([id number])Indication: Hypertension On: 8-Efc-979665:14 Request METABOLIC PANEL, COMPREHENSIVE (88913)Indication: Hypertension On: 5-Uvu-547299:14 Request LIPID PANEL (42076)Indication: Hypercholesterolemia On: 0-Atg-680744:13 Request CBC, PLATELETS & AUT DIFF ([id number])Indication: Anemia, unspecified On: 7-Zfj-281924:38 Request Comments: Repeat 3wks beginning june Renal function Panel (29924)Indication: Abnormal blood chemistry On: 9-Pkc-480514:35 Request Comments: repeat 3 wks Beginning of June Folate (91715)Indication: Fatigue On: 49-Ylo-613734:23 Request VITAMIN B-12 (CYANOCOBALAMIN) (09416)Indication: Fatigue On: 17-Xzk-693452:23 Request TSH (29525)Indication: Fatigue On: 92-Rpj-533562:23 Request SED RATE ERYTHROCYTE (30976)Indication: Fatigue On: 12-Oli-981543:23 Request RHEUMATOID FACTOR-QUANT (04623)Indication: Fatigue On: 56-Mog-472436:23 Request METABOLIC PANEL, COMPREHENSIVE (21648)Indication: Fatigue On: 76-Plf-145786:23 Request C-REACTIVE PROTEIN (67750)Indication: Fatigue On: 72-Xnz-954673:23 Request CBC (AUTO) (78188)Indication: Fatigue On: 88-Hts-036827:23 Request CHIQUI (ANTINUCLEAR ANTIBODY) (58227)Indication: Fatigue On: 28-Hlg-269921:23 Request BERTHA CULTURE-OTHER (59714)Indication: Pharyngitis, acute On: :48 Request TSH (37761)Indication: Dysthymic On: :48 Request PSA (PROSTATE SPECIFIC ANTIGEN) (V76.44)Indication: Benign prostatic hyperplasia with urinary obstruction and other lower urinary tract symptoms On: :48 Request METABOLIC PANEL, COMPREHENSIVE (99870)Indication: Hypertension On: :46 Request LIPID PANEL (80302)Indication: Hypercholesterolemia On: :46 Request CBC WITH MANUAL DIFF (81460)Indication: Anemia, unspecified On: :46 Request Metabolic Panel, Basic (64732)Indication: Edema On: :44 Request FOLIC ACID SERUM (34797)Indication: Anemia, unspecified On: :43 Request VITAMIN B-12 (CYANOCOBALAMIN) (05563)Indication: Anemia, unspecified On: :43 Request RETICULOCYTE COUNT MANUL (05061)Indication: Anemia, unspecified On: :43 Request LDH (LD) (LACTATE DEHYDROGENASE) (17860)Indication: Anemia, unspecified On: :43 Request IRON BINDING CAPACITY (TIBC) (10588)Indication: Anemia, unspecified On: :43 Request FERRITIN (89494)Indication: Anemia, unspecified On: :43 Request IRON (39489)Indication: Anemia, unspecified On: :43 Request CBC WITH MANUAL DIFF (46750)Indication: Edema On: :40 Request LIPID PANEL (77644)Indication: Hypercholesterolemia On: :36 Request URINALYSIS W/O MICRO (16388)Indication: Hypertension On: :36 Request TSH (52852)Indication: Hypertension On: :36 Request METABOLIC PANEL, COMPREHENSIVE (38217)Indication: Hypertension On: :36 Request CBC WITH MANUAL DIFF (64797)Indication: Hypertension On: :36 Request PSA (PROSTATE SPECIFIC ANTIGEN) (V76.44)Indication: Benign prostatic hyperplasia with urinary obstruction and other lower urinary tract symptoms On: :36 Request METABOLIC PANEL, COMPREHENSIVE (00655)Indication: Hypertension On: :27 Request LIPID PANEL (19825)Indication: Hypercholesterolemia On: :26 Request HEPATIC FUNCTION PANEL (83720)Indication: Hypercholesterolemia On: 52-Aum-59058:26 Request HEPATIC FUNCTION PANEL (02121)Indication: Hypercholesterolemia On: :52 Request LIPID PANEL (96593)Indication: Hypercholesterolemia On: :52 Request PSA (PROSTATE SPECIFIC ANTIGEN) (V76.44)Indication: Benign prostatic hyperplasia with urinary obstruction and other lower urinary tract symptoms On: 61-Fcq-81403:52 Request URINALYSIS W/O MICRO (34514)Indication: Hypertension On: 88-Xyw-673118:23 Request TSH (08386)Indication: Hypertension On: 23-Pvo-550929:23 Request METABOLIC PANEL, COMPREHENSIVE (61184)Indication: Hypertension On: :23 Request CBC WITH MANUAL DIFF ([id number])Indication: Hypertension On: 32-Pty-502700:22 Request LIPID PANEL (23482)Indication: Hypercholesterolemia On: 34-Teq-790632:17 Request HEPATIC FUNCTION PANEL (14471)Indication: Hypercholesterolemia On: 28-Wvg-597702:17 Request METABOLIC PANEL, COMPREHENSIVE (59171)Indication: Hypertension On: 92-Jxj-290147:50 Request VITAMIN B-12 (CYANOCOBALAMIN) (68641)Indication: Fatigue On: :03 Request METABOLIC PANEL, COMPREHENSIVE (16119)Indication: Fatigue On: :03 Request GLUCOSE TOLERANCE TEST (GTT) 2 hour (98078)Indication: Fatigue On: :02 Request LIPID PANEL (56792)Indication: Hypercholesterolemia On: 78-Xga-82222:10 Request Comments: please send to Dr Shore PSA (PROSTATE SPECIFIC ANTIGEN) (19523)Indication: Benign prostatic hyperplasia with urinary obstruction and other lower urinary tract symptoms On: :10 Request MICROALBUMIN URINE QUANT (77283)Indication: Hypertension On: :10 Request URINALYSIS W/O MICRO ([id number])Indication: Hypertension On: :10 Request TSH ([id number])Indication: Dysthymic On: :10 Request METABOLIC PANEL, COMPREHENSIVE (78728)Indication: Hypertension On: :10 Request CBC WITH MANUAL DIFF (35812)Indication: Hypertension On: :10 Request CBC WITH MANUAL DIFF (56437)Indication: Hypertension On: :53 Request METABOLIC PANEL, COMPREHENSIVE (85592)Indication: Hypertension On: :53 Request URINALYSIS W/O MICRO (23715)Indication: Hypertension On: :53 Request TSH ([id number])Indication: Hypertension On: :53 Request LIPID PANEL ([id number])Indication: Hypercholesterolemia On: :53 Request Planned Encounters Medical; 4 Month FU - On: 01-Mar-2018 8:00 [facility] Jazz Rodas DO, DO, Kathleen Planned Procedures Flu Vaccine (Quadrivalent) On: 14-Feb-2018 Intent 17676Ll: Jazz Rodas DO Comments: Lot #[id number]-L dltd, IMDose prefilled syringegiven by: GuzmannchkVIS reviewed and ABN signed Jazz Rodas DO ELECTROCARDIOGRAM, COMPLETE On: 27-Oct-2017 Intent (ECG) (21855)By: Irvin LAURA, Comments: nsr no acute chg Jazz Ballard DO PNEUM VAC ADLT/IMUMNOSPR, On: 17-Dec-2016 Intent SBC/INTRM (94263)By: Irvin Comments: Lot:[id number]:05/19/18Dose:0.5mgRoute:imSite:l armGiven By:YVETTE signed Jazz LAURA DO, Kathleen FZXM-DV-CXBV BEHAVIORAL On: 17-Dec-2016 Intent COUNSELING FOR OBESITY, 15 MINUTES (G0447)By: Jazz Rodas DO, DO, Kathleen INTENSIVE BEHAVIORAL THERAPY On: 17-Dec-2016 Intent TO REDUCE CARDIOVASCULAR DISEASE RISK, INDIVIDUAL, ZDQL-OC-PPNQ, ANNUAL, 15 MINUTES (G0446)By: Jazz Rodas DO, DO, Kathleen Flu Vaccine (Quadrivalent) On: 10-Dec-2016 Intent 73262Er: Jazz Rodas DO Comments: lot: [id number]: 09/26/17ite/route: L jessika, IMamt: 0.5mlVIS and ABN signed when applicableGUZMAN Desai DO, Kathleen ELECTROCARDIOGRAM, COMPLETE On: 04-Aug-2016 Intent (ECG) (85168)By: Irvin LAURA, Comments: sinus yoko - no acute chg Jazz Ballard DO Venous Doppler - LeftBy: Alam On: 23-Apr-2016 Intent Raya PERERA Comments: L lower extremity US DOPPLER VEIN OF EXTREMITY On: 21-Apr-2016 Intent (63516)By: Raya Albarran MD Comments: US doppler right lower extremety and right butock(cellulitis after laying on buttock for 14 hours, ? DVT) CT - Pelvis (IV Contrast On: 15-Apr-2016 Intent Needed)By: Raya Albarran MD Comments: (WRITE IN NOTE OF CT SCAN:1.make sure pt lays on stomach and not on back while getting CT Scan(Do not compress the buttock)2. Pls fax results to wound centre and Raya Albarran US GROIN (72400)By: Avis PERERA, On: 13-Apr-2016 Intent Raya Comments: US soft tissue of left hip, Rule out abcess. Flu Vaccine (Quadrivalent) On: 12-Dec-2015 Intent 26296Ym: Jazz Rodas DO Comments: lot [id number] exp 10/08/16- R arm Jazz Rodas DO INTENSIVE BEHAVIORAL THERAPY On: 12-Dec-2015 Intent TO REDUCE CARDIOVASCULAR DISEASE RISK, INDIVIDUAL, EMGR-SS-YQQP, ANNUAL, 15 MINUTES (G0446)By: Jazz Rodas DO, DO, Kathleen PUCF-MT-LAYT BEHAVIORAL On: 12-Dec-2015 Intent COUNSELING FOR OBESITY, 15 MINUTES (G0447)By: Jazz Rodas DO, DO, Kathleen B 12 Injection, 1000 mcg On: 26-Nov-2015 Intent (J3420)By: Jazz Rodas DO Comments: B12lot:[id number]:ite:lt deltroute:IMdose:1mlD.PRECIOUS Gallo DO, Kathleen B 12 Injection, 1000 mcg On: 22-Oct-2015 Intent (J3420)By: Jazz Rodas DO Comments: lot: [id number]: ite/route: L del/IMamt: 1mLVIS signed when applicableGUZMAN Desai DO, Kathleen CT - Brain/Head (Without On: 25-Sep-2015 Intent Contrast)By: Jazz Rodas DO, DO, Kathleen US DOPPLER CAROTID BILATERAL On: 25-Sep-2015 Intent (79776)By: Jazz Rodas DO, DO, Jazz Cartoid DopplerBy: Irvin LAURA, On: 30-Jul-2015 Intent Jazz Diazon Jazz Flu Vaccine (Quadrivalent) On: 15-Jan-2015 Intent 92996Dn: Katya Rodas DOeen Comments: Lot:[id number]:10/09/15Dose:0.5mLRoute:IMSite:L DltdGiven By:YVETTE signed Jazz Rodas DO EKG (80093)By: Irvin LAURA, On: 13-Jun-2014 Intent Jazz Ballard DO LPGQ-SM-MIYW BEHAVIORAL On: 06-Mar-2014 Intent COUNSELING FOR OBESITY, 15 MINUTES (G0447)By: Jazz Rodas DO, DO, Kathleen Prevnar 13 (58238)By: Irvin On: 06-Mar-2014 Intent Jazz LAURA DO, Comments: lot [id number] 06/2015location L armroute imgiven by - Madisyn and/or MAMI signed Jazz Cartoid DopplerBy: Blanco LAURA, On: 15-Jan-2014 Intent Rupinder A FLU VAC, SPLIT, >3 YEARS, On: 15-Jan-2014 Intent INTRAMUSC (37141)By: Blanco LAURA, Comments: Lot #:[id number] date:12/2015Amount given:0.5mlRoute: IMSite given: left deltoidGiven by: PRECIOUS Serna A ADMINISTRATION OF INFLUENZA On: 15-Jan-2014 Intent VIRUS VACCINE (G0008)By: Rupinder Encarnacion DO FLU VAC, SPLIT, >3 YEARS, On: 13-Feb-2013 Intent INTRAMUSC (06837)By: Blanco LAURA, Comments: Lot:[id number]:Dose:0.5mLRoute:IMSite:L DltdGiven By:YVETTE signed Rupinder A IMMUNIZ ADMNIN, 1 VAC, On: 13-Feb-2013 Intent SNGL/COMBO (74599)By: Perla Ruano IMMUNIZ ADMNIN, 1 VAC, On: 08-Feb-2012 Intent SNGL/COMBO (80027)By: Chanel Alamo CNP FLU VAC, SPLIT, >3 YEARS, On: 08-Feb-2012 Intent INTRAMUSC (82971)By: Walker LOU Chanel Hickey DANA (Ankle Brachial Index) On: 14-Jul-2011 Intent (75344)By: Nieves Masters Comments: at DF desk Spirometry (86340)By: Kael On: 01-Jul-2011 Intent Ling PERERA Aerosol Treatment (35834)By: On: 01-Jul-2011 Intent Ling Scruggs MD EKG (41555)By: Kael PERERA, On: 01-Jul-2011 Intent Ling Roberts DANA (Ankle Brachial Index) On: 21-May-2011 Intent (94930)By: Rupinder Encarnacion DO Cartoid DopplerBy: Blanco LAURA, On: 21-May-2011 Intent Rupinder A Comments: august FLU VAC, SPLIT, >3 YEARS, On: 10-Feb-2011 Intent INTRAMUSC (38004)By: Erik UGARTE, Comments: Lot #: [id number] date: 09/20Amount given: 0.5 mlRoute: IMSite given: left deltoidGiven by: TORITO Gonzales IMMUNIZ ADMNIN, 1 VAC, On: 10-Feb-2011 Intent SNGL/COMBO (77010)By: Marlys Valencia RN Eprescribed prescriptions On: 24-Nov-2010 Intent (G8553)By: Rupinder Encarnacion DO Echo CompleteBy: Hluszti EVANGELISTA, On: 04-Aug-2010 Intent Mera Pulse Oximetry (74135)By: Blanco On: 24-Jul-2010 Intent Rupinder LAURA Comments: 96 Bio Z (25243)By: Blanco LAURA, On: 24-Jul-2010 Intent Rupinder A Comments: good cardiac output and svr- thoracic fluid ok EKG (09005)By: Rupinder Encarnacion DO On: 24-Jul-2010 Intent A Comments: ekg showed normal sinus rhythym, normal axis, no acute st/t wave changes Echo CompleteBy: Blanco LAURA, On: 24-Jul-2010 Intent Rupinder A DANA (Ankle Brachial Index) On: 24-Jul-2010 Intent (03503)By: Rupinder Encarnacion DO Cartoid DopplerBy: Blanco LAURA, On: 24-Jul-2010 Intent Rupinder A Radiology - Chest- PA and On: 24-Jul-2010 Intent LatBy: Fast DO, Rupinder A Radiology - Chest- PA and On: 09-Jul-2010 Intent LatBy: Irvin DO, Jazz Irvin DO, Jazz Ultrasound - RenalBy: Irvin On: 14-May-2010 Intent DO, Jazz Irvin DO, Jazz Cartoid DopplerBy: Fast DO, On: 25-Mar-2010 Intent Rupinder A DANA (Ankle Brachial Index) On: 25-Mar-2010 Intent (54020)By: Blanco DO, Urpinder A IMMUNIZ ADMNIN, 1 VAC, On: 15-Jan-2010 Intent SNGL/COMBO (67778)By: Erik UGARTE, Comments: Lot #: [id number] date: mount given: 0.5 mlRoute: IMSite given: left deltoidGiven by: Valeriano Green RN Marlys FLU VACCINE NO PRESERV 3 & > On: 15-Jan-2010 Intent (23315)By: Marlys Valencia RN Cartoid DopplerBy: Blanco DO, On: 26-Nov-2009 Intent Rupinder A Comments: sept TDAP VACCINE >7 IM (92983)By: On: 22-Sep-2009 Intent Mera Mullen LPN Comments: Lot #[id number]-9/24/12Site-left deltoidgiven by:[facility] Holter Monitor 24 hrsBy: Walker On: 21-Apr-2009 Intent Chanel LOU ELECTROCARDIOGRAM, COMPLETE On: 21-Apr-2009 Intent (ECG) (41999)By: Chanel Alamo CNP FLU VAC, SPLIT, >3 YEARS, On: 07-Jan-2009 Intent INTRAMUSC (92495)By: Harpreet, Comments: Lot #:[id number] date:mount given:0.5mlRoute: IMSite given:left deltGiven by: PRECIOUS Serna IMMUNIZ ADMNIN, 1 VAC, On: 07-Jan-2009 Intent SNGL/COMBO (83478)By: Emili Mullins DANA (Ankle Brachial Index) On: 25-Nov-2008 Intent (65508)By: Uma Altamirano Comments: done>Wf. pt aware. normal findings on both sides. DANA (Ankle Brachial Index) On: 01-Oct-2008 Intent (46628)By: Rupinder Encarnacion DO Cartoid DopplerBy: Blanco LAURA, On: 01-Oct-2008 Intent Rupinder Bal Comments: sept Pulse Oximetry (76931)By: On: 03-Jul-2008 Intent Chanel Alamo CNP Comments: done BC Aerosol Treatment (05688)By: On: 03-Jul-2008 Intent Chanel Alamo CNP Comments: done BC FLU VAC, SPLIT, >3 YEARS, On: 15-Mar-2008 Intent INTRAMUSC (57741)By: Alicia Allen ADMINISTRATION OF INFLUENZA On: 15-Mar-2008 Intent VIRUS VACCINE (G0008)By: Comments: inj given no complicationslot:[id number]:10/08/08site left deltoddose:0.5mlkatAlicia Easton EKG (01591)By: Rupinder Encarnacion DO On: 27-Dec-2007 Intent A Comments: ekg- with sinus with lvh - left axisd deviation Cartoid DopplerBy: lBanco LAURA, On: 27-Dec-2007 Intent Rupinder Bal DANA (Ankle Brachial Index) On: 23-Aug-2007 Intent (26013)By: Xiao Busby DANA (Ankle Brachial Index) On: 08-Aug-2007 Intent (10444)By: Rupinder Encarnacion DO DANA (Ankle Brachial Index) On: 02-May-2007 Intent (50953)By: Rupinder Encarnacion DO Flu Vaccine, Split IM On: 24-Jan-2007 Intent (93017)By: Rupinder Encarnacion DO Comments: given o.5cc im in right deltoid lot#[id number] exp.10/09/07-aw Pneumovax (80847)By: Blanco LAURA, On: 24-Jan-2007 Intent Rupinder A Comments: given 0.5cc in right deltoid lot#[id number] exp. 02/20/08-aw Overnight Pulse Ox(60565)By: On: 21-Dec-2006 Intent Xiao Busby Echo CompleteBy: Blanco LAURA, On: 06-Dec-2006 Intent Rupinder A Overnight Pulse OX (36376)By: On: 06-Dec-2006 Intent Rupinder Encarnacion DO EKG (90260)By: Narciso NAIDU, On: 23-Jun-2006 Intent Peg Comments: needed to be done for a preop which is scheduled the end of the month with dr. romero DANA (Ankle Brachial Index) On: 15-Jun-2006 Intent (50027)By: Milady Jay LPN DANA (Ankle Brachial Index) On: 01-Jun-2006 Intent (21495)By: Rupinder Encarnacion DO Comments: see Mila- these needs precerted as the insurance didnt pay last time- I discussed with her DANA (Ankle Brachial Index) On: 01-Mar-2006 Intent ([id number])By: Rupinder Encarnacion DO Planned Medications Vitamin B-12 1000 MCG/ML Injection Solution Ordered: 22-Oct-2015 Pending Jazz Rodas DO, DO, Kathleen Vitamin B-12 1000 MCG/ML Injection Solution Ordered: 26-Nov-2015 Pending Jazz Rodas DO, DO, Kathleen Instructions Name Dates Details BMI 40.0-44.9, adult : How to access [...] Patient Instructions Indication: Impaired fasting glucose Encounters Office Visit On: 14-Feb-2018 11:23 Encounter Reason: [...] The patient does have durable power of manager of case management and living will. The patient has noticed dropping activities and interests, having problems with memory than others, la ck of energy and thinking most people are better off than them. 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 care are [facility] park ranger and microfilmer.Encounter Diagnosis: BMI 38.0-38.9,adult, Nonsmoker, Annual Medicare Physical [...] patient does not have durable power of manager of case management. The patient has noticed lack of energy and thinking most people are better off than them. 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 care are [facility] park ranger and other:.Encounter Diagnosis: Annual Medicare Phyiscal WITHOUT [...] in bathroom. The patient has completed the [facility] preventative measures: PSA testing (2013) and colonoscopy (2009). The patient does have durable power of manager of case management and living will. The patient has noticed thinking most people are better off than t hem. 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 care are [employer] park ranger (DR. Maria) and other: (Pain Management- Dr. [...] a day for 2 weeks- and the national park ranger didnt feel he needed to increase meds [...] back. Pt is seeing Dr. Blake in [place] for this and currently getting injections and [...] up for chronic medical issues: he saw Sibilia - got mask adjuxted- bp is good- and sleeping well [...] Follow up, Laboratory Test Results - Date: (1/29/10). Current symptoms/reason fo r visit include/s Follow up visit with no current symptoms. There is a family history of cardiovascular disease (parents, brother) and myocardial infarction before age 55 (father) , while there is no fa gerarod history of breast cancer ,cystic fibrosis ,Down's [...] els overwhelmed- he is willing to retry [facility] again and see how he doesEncounter Diagnosis: [...] : (110's/60's) and weight :. Note for Carmelo w up for chronic medical issues: he [...] tired with work but does feel sleepy- ar End: 24-Jan-2007 11:15 s mood is ok [...] Internal Medicine End: 24-Feb-2006 14:24 Payers MedicareHumana/Supplement Jose Angel Deutsch; valeriano guarantor
--- OUTSIDE RECORDS SUMMARY | 2018-07-01 19:04 | XMS RPT_ITS | Continuity of Care Document ---
:1950 Author Organization [facility] Address [address] [place] [address] Phone Care Team Providers Name Role Phone Jazz Rodas DO Unavailable [facility] Unavailable [facility], [facility] Unavailable Long PROCESS PLANT OPERATOR, Sharonda L Unavailable Unavailable Gravius, Laila Unavailable Unavailable Slarb PROCESS PLANT OPERATOR, Elle Unavailable Unavailable Messenger, PROCESS PLANT OPERATOR Darlene Unavailable Unavailable Manchak, Giselle Unavailable Unavailable [...] 30 days Quantity: 30 {Tablet} Refills: 1 Ordered:09-Jan-2018 GraviusBrittaniin Start : 09-Jan-2018 Active Fenofibrate 54 MG Oral Tablet 1 (one) Tablet Tablet qd for 0 days Quantity: 30 {Tablet} Refills: 0 Ordered:21-Apr-2016 Aditi Rodas DO, DO, Kathleen Start : 29-Mar-2016 Active FISH OIL, 1000MG (Oral Capsule) 1 QD for 0 days Refills: 0 Ordered:07-Jan-2009 Emili MullinsActive Furosemide 40 MG Oral Tablet 1 (one) Tablet Tablet qd for 0 days Quantity: 30 {Tablet} Refills: 0 Ordered:21-Apr-2016 Irvin LAURAAditi DO Jazz Start : 29-Mar-2016 Active LIPITOR, 40MG (Oral Tablet) 1 (one) Tablet qd for 0 days Quantity: 30 {Tablet} Refills: 3 Ordered:19-Sep-2014 Irvin LAURA IvoryChantel LAURA Jazz Start : 19-Sep-2014 Active Lisinopril 20 MG Oral Tablet 1 tab Tablet bid for 0 days Quantity: 60 {Tablet} Refills: 0 Ordered:22-Oct-2015 Irvin LAURA IvoryChantel LAURA Jazz Start : 22-Oct-2015 Active MULTIVITAMINS (Oral Tablet) 1 tab qd for 0 days Refills: 0 Ordered:07-Jan-2009 Sravani Mullins PROVIGIL, 200MG (Oral Tablet) 1 tab bid for 0 days Refills: 0 Ordered:07-Jan-2009 Sravani Mullins Zoloft 50 MG Oral Tablet 2 (two) Tablet qd for 30 days Quantity: 60 {Tablet} Refills: 4 Ordered:27-Oct-2017 Irvin LAURA KatyaRock LAURA Jazz Start : 27-Oct-2017 Active Comments:wean ANUSOL-HC, 25MG [...] days Quantity: 40 {Capsule} Refills: 0 Ordered:13-Apr-2016 AldenPerla Start : 13-Apr-2016 End : 23-Apr-2016 Inactive [...] days Quantity: 10 {Tablet} Refills: 0 Ordered:08-Feb-2012 AbbiChanel jimenez CNP Start : 08-Feb-2012 End : 18-Feb-2012 [...] : 29-Sep-2015 End : 26-Nov-2015 Inactive ZOSTAVAX, 77253XEL/0.65ML (Subcutaneous Solution Reconstituted) 1 For Solution dose [...] days Quantity: 30 {Tablet} Refills: 3 Ordered:30-Jul-2015 Aditi Rodas DO, DO, Kathleen Start : [...] status type (R41.82, 780.97) Comments: originally from [facility] this time from [place]ab[place] Status: Resolved as [...] ulner repair 08/12/15 Completed Date Value Details 09-Nov-2017 Carotid Duplex Ultrasound Result: Comments: See Note; NOTES: [facility] Cardiovascular Services [address] [place] [address] Carotid Duplex Ultrasound 11/09/17 1247 MR#: [id number] Acct: [id number] Name: LETHA MASON Rep #: [id number] : 1950 67 From: Kaiser Awan MD Attending Dr: Babatunde Maria MD Status: REG CLI Ordering Dr: Babatunde Maria MD Date: 11/09/17 Location: [facility] Sex: M C Admitted: R t. Velocities/BP [...] the left vertebral artery. Procedure Carotid Duplex 70616. The study was technically difficult. Exam performed [...] Dictated: 11/09/17 1247 Date Transcribed: 11/09/17 1516 Accounts Payable Administrator: Signed 27-Oct-2017 Cardiology Visit Report Result: Comments: See Note; NOTES: [facility] [address] [place], [place] [address]e. [address] [place] [address] OFFICE VISIT Date of Service: 10/27/17 MR#: [id number] Acct: [id number] Name: LETHA DEUTSCH Rep #: [id number] : 1950 Provider: Babatunde Maria MD Age/Sex: 66/M Location: [facility] Status: Signed HPI HPI Details: LETHA DEUTSCH, [...] patent LAD, diagonal and OM. In 2 012 he had an atrial flutter ablation. 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: No Accompanied by: none Is patient [...] 10/27/17] Ejection fraction %: 65 to 70 PFS Medical History HLD (hyperlipidemia) (Chronic) HTN (hypertension) (Chronic ) Atherosclerosis of coronary artery bypass graft without angina pectoris (Chronic) Renal disease (Chronic) Persistent atrial fibrillation (Chronic) Dyspnea (Chronic) Sleep apnea (Chronic) Occlusion and stenosis of left carotid artery (Chronic) Atherosclerotic heart disease of [place] coronary artery without angina pectoris (Chronic) Obesity [...] Atherosclerosis of coronary artery bypass graft of [place] heart without angina pectoris I25.810 Plan He [...] arise Plan Detail 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 transplanted heart: [place] heart Essential hypertension I10 Hypertension type: essential hypertension Atrial fibrillation and flutter I48. 91; I48.92 Occlusion and stenosis of left carotid artery I65.22 Pure hypercholesterolemia E78.00; E78.0 Hyperlipidemia type: pure hypercholesterolemia Coding Level of Care Code Off vis,est,level 4 Di agnoses Atherosclerosis of coronary artery bypass graft of [place] heart without angina pectoris I25.810 [place] vs. transplanted heart: [place] heart Essential hypertension I10 Hypertension type: essentia l hypertension Atrial fibrillation and flutter I48.91; I48.92 Occlusion and stenosis of left carotid artery I65.22 Pure hypercholesterolemia E78.00; E78.0 Hyperlipidemia type: pure hypercholesterolemia 10/27/17 0935 <Electronically signed by Babatunde Maria MD> Date Babatunde Maria MD Cosigner Signature: Date (if applicable) CC: Jazz Rodas DO 22-Oct-2017 Spine Lumbar (Routine) Result: Comments: See Note; NOTES: [facility] Imaging Services [address] [place] [address] Spine Lumbar (Routine) MR#: [id number] Acct: [id number] Name: LETHA DEUTSCH Rep #: [id number] : 1950 M 66 From: Roberto Lunsford MD PCP: Jazz Rodas DO Status: REG CLI Study: Spine Lumbar (Routine) Date of Exam: 10/22/17 Exam# [id number] Ordering Dr: Brooklynn Ryan PRE BILLING SPECIALIST-C STUDY: MRI L UMBAR SPINE WITHOUT CONTRAST [...] , CC: Brooklynn Ryan; Jazz Rodas DO Accounts Payable Administrator: Signed 14-Apr-2017 Cardiology Visit Report Result: Comments: See Note; NOTES: [facility] [address] [place] [address] OFFICE VISIT Date of Service: 04/14/17 MR#: [id number] Acct: [id number] Name: LETHA DEUTSCH Rep #: [id number] : 1950 Provider: Hyun Iglesias Age/Sex: 66/M Location: [facility] Status: Signed HPI 6 M FU: Details: LETHA DEUTSCH, is a 66 M who presents to the office today for here marychuy wynn for a cardiovascular follow-up. He has a [...] where he underwent a second ablation. Unfor lui in August of this year he had a suspected GI bleed and had an INR greater of 19. He was given vitamin K and 4 units of fresh frozen plasma. At that time he was noted to have hemoglobin of 7. Stre ss test in 2015 was negative for ischemia. 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 [Ecotrin] 81 mg PO QHS 10/14/15 [History Confirmed 04/14/17] Atenolol [Ten ormin (beta [...] carotid artery (Chronic) Atherosclerotic heart disease of [place] coronary artery without angina pectoris (Chronic) HTN [...] Atherosclerosis of coronary artery bypass graft of [place] heart without angina pectoris I25.810; I25.810; I25.810 Plan - LEDA Millard Stable, from a cardiac standpoint patient does not have any symptoms of angina. We recommend that they continue with current aggressive medical management and ri sk factor modification. 2. Hyperlipidemia, unspecified hyperlipidemia type E78.5 Arlen - LEDA Millard Recent lipid profile demonstrates [...] monitor. 5. Peripheral vascular disease, unspecified I73.9 Arlen - LDEA Millard Patient does not have any symptoms [...] above patient was dis cussed with Dr. Crow, he agrees with plan of care. Thank [...] prior to saving. 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) 1018 <Electronically signed by Hyun TOMPKINS> Date Hyun TOMPKINS 04/14/17 1020<Electronically signed by Babatunde Maria MD> Cosigner Signature: Date (if applicable) Babatunde Maria MD CC: Jazz Rodas DO 23-Jun-2016 Brain/Head without Contrast Result: Comments: See Note; NOTES: [facility] Imaging Services [address] [place] [address] Verdana 4d Brain/Head without Contrast MR#: [id number] Acct: [id number] Name: [facility] Rep #: [id number] : 1950 M 65 From: Chago Loera MD PCP: Jazz Rodas DO Status: [facility] ER Study: Brain/Head without Contrast Date of Exam: 06/23/16 Exam# [id number] Ordering Dr: Isiah Gloria MD STUDY: CT [...] 06/23 at 20:16 EDT , Service support [phone], N.B. : The above information has been verbally conveyed by Chago Loera MD to dr gloria, Referring Physician, on 20:19:35 (ET). CC: Emili Gloria MD; Jazz Rodas DO Accounts Payable Administrator: Signed 23-Jun-2016 Chest 1 View Result: Comments: See Note; NOTES: [facility] Imaging Services [address] [place] [address] Verdana 4d Chest 1 View MR#: [id number] Acct: [id number] Name: LETHA DEUTSCH Rep #: [id number] : 1950 M 65 From: Chago Loera MD PCP: Jazz Rodas DO Status: REG ER Study: Chest 1 View Date of Exam: 06/23/16 Exam# [id number] Ordering Dr: Emili Gloria MD STUDY: X-RAY [...] MD at 20:28 EDT , Service support [phone], CC: Emili Gloria MD; Jazz Rodas DO Accounts Payable Administrator: Signed 09-Jun-2016 Pulmonary Function Report Comp Result: Comments: See Note; NOTES: [facility] Pulmonary Services/Neurology [address] [place] [address] Pulmonary Function Test (Comp) MR#: [id number] Acct: [id number] Name: LETHA DEUTSCH Rep #: [id number] : 1950 65 From: Rodolfo Palacios DO Referring Dr: Rodolfo Palacios D.O. Status: REG CLI Ordering Dr: Rodolfo Palacios DO Date: 06/08/16 Location: [facility]N Sex: M C DATE OF SERVICE: INTRODUCTION: [...] is recommended. DO Karen Gurrola C: T: [facility] JOB: [id number] 06/09/16 1357 &# 60;Electronically signed by Rodolfo Palacios DO> Date Rodolfo Palacios DO CC: Rodolfo Palacois D.O.; Jazz Rodas DO Date Dictated: 06/09/16829 Date Transcribed: 06/09/16829 Accounts Payable Administrator: Signed 07-Jun-2016 Chest PA and Lateral Result: Comments: See Note; NOTES: [facility] Imaging Services [address] [place] [address] Verdana 4d Chest PA and Lateral MR#: [id number] Acct: [id number] Name: MARITOLETHAJada Loredo p #: [id number] : 1950 65 From: Real Miller MD PCP: Jazz Rodas DO Status: [facility] CLI Study: Chest PA and Lateral Date of Exam: 06/07/16 Exam# [id number] Ordering Dr: Hyun Iglesias STUDY: X-RAY CHEST [...] MD at 16:15 EST , Service support [phone], CC: Jazz Rodas DO; Hyun Iglesias Accounts Payable Administrator: Signed 01-Jun-2016 Carotid Duplex Ultrasound Result: Comments: See Note; NOTES: [facility] Cardiovascular Services [address] [place] [address] Carotid Duplex Ultrasound 06/01/16 1000 MR#: [id number] Acct: [id number] Name: LETHA MASON Rep #: [id number] : 1950 65 From: Cassi Rousseau MD [...] the left vertebral artery. Procedure Carotid Duplex 39879. Technically difficult due to body habitus. Exam [...] Dictated: 06/01/16 1000 Date Transcribed: 06/01/16 1434 Accounts Payable Administrator: Signed 01-Jun-2016 Echocardiogram Complete Result: Comments: See Note; NOTES: [facility] Cardiovascular Services [address] [place] [address] Echo Complete 06/01/16 0909 MR#: [id number] Acct: [id number] Name: LETHA DEUTSCH Rep #: [id number] : 1950 65 From: Babatunde Maria MD Attending Dr: Rodolfo Palacios D.O. Status: REG CLI Ordering Dr: Rodolfo Palacios DO Date: 06/01/16 Location: [facility] Sex: M C Admitted: Reason For Andrew [...] DO Date Dictated: 06/01/1609 Date Transcribed: 06/01/16 125 Accounts Payable Administrator: Signed 26-May-2016 6 Minute Walk Test Result: Comments: See Note; NOTES: [facility] Pulmonary Services/Neurology [address] [place] [address] MR#: [id number] Acct: [id number] Name: LETHA DEUTSCH Rep #: [id number] : 1950 65 From: Rodolfo Palacios DO Referring Dr: Rodolfo Palacios D.O. Date: Ordering Dr: Mateo: Jessica Jones Location: PSN PSN 6 Minute Walk Test - 6 Minute Walk Test 6 Minute Walk Test: 6 Minute Walk Test PSN :6-Minute Walk Test Start: 05/25/16 12:52 Freq: Status: Active Document 05/25/16 12:52 LORENA (Rec: 05/25/16 12:54 LORENA [id number]) 6 Minute Walk Test Date Performed 05/25/16 [...] use of supplemental oxygen at this time. 05/26/16 0948 <Electronical ly signed by Rodolfo Palacios DO> Date Rodolfo Palacios DO CC: Date Dictated: 05/26/1647 Date Transcribed: 05/26/16946 Accounts Payable Administrator: Rodolfo Palacios DO Signed 21-Apr-2016 Venous Duplex Lower Extremity Result: Comments: See Note; NOTES: [facility] Cardiovascular Services [address] [place] [address] Venous Duplex US, Unilateral 04/21/16 1619 MR#: [id number] Acct: [id number] Name: LETHA ARTHUR Rep #: [id number] : 1950 65 From: Kwaku Ahmadi MD [...] Ahmadi MD CC: Jazz Rodas DO; Raya Shannonjessica Date Dictated: 04/21/16 1619 Date Transcribed: 04/21/161826 Accounts Payable Administrator: Signed 16-Apr-2016 Pelvis WITH IV Contrast Result: Comments: See Note; NOTES: [facility] Imaging Services [address] [place] [address] Verdana 4d Pelvis WITH IV Contrast MR#: [id number] Acct: [id number] Name: LETHA DEUTSCH Rep #: [id number] : 1950 M 65 From: Gurpreet De Anda DO PCP: Jazz Rodas DO Status: REG CLI Study: Pelvis WITH IV Contrast Date of Exam: 04/16/16 Exam# [id number] Ordering Dr: Jazz Rodas STUDY: CT PELVIS [...] De Anda DO at 9:03 EST Tel [phone], Service support [phone], CC: Ivory Rodas DO Accounts Payable Administrator: Signed 14-Apr-2016 Other BP Soft Tissue Result: Comments: See Note; NOTES: [facility] Imaging Services [address] [place] [address] Verdana 4d Other BP Soft Tissue MR#: [id number] Acct: [id number] Name: LETHA DEUTSCH Gertrude p #: [id number] : 1950 M 65 From: Gurpreet De Anda DO PCP: Jazz Rodas DO Status: REG CLI Study: Other BP Soft Tissue Date of Exam: 04/14/16 Exam# [id number] Ordering Dr: Raya Albarran STUDY: GALIDNO PERFICIAL ULTRASOUND - LEFT BUTTOCK REASON FOR [...] cysts versus lymph nodes. Electronically Signed: Gurpreet HampsteadDO 27/04/03 at 12:37 EST Tel [phone], Service support [phone], CC: Jazz Rodas DO; Raya Albarran Accounts Payable Administrator: Signed 18-Feb-2016 12 Lead Electrocardiogram Result: Comments: See Note; NOTES: [facility] Cardiovascular Services [address] [place] [address] 12 Lead EKG 02/16/16 1238 MR#: [id number] Acct: [id number] Name: LETHA DEUTSCH Rep #: [id number] : 1950 65 From: Johnie Montaño MD Attending Dr: Babatunde Maria MD Status: DEP [facility] Ordering Dr: Babatunde Maria MD Date: 02/16/16 Location: [facility] Sex: M C Admitted: Test Reason : [...] ECG Confirmed by SCOTT PERERA, JOHNIE ([id number]), editor map BECK DOSS ([id number]) on 02/18/2016 2:53:30 PM Referred By: BABATUNDE [facility] Confirmed By:JOHNIE MONTAÑO MD 02/18/16 1453 Date Johnie Montaño MD CC: Jazz Rodas DO Date Dictated: 02/16/16 1238 Date Transcribed: 02/16/16 1238 Accounts Payable Administrator: Signed 17-Feb-2016 Operative Report Result: Comments: See Note; NOTES: [facility] Medical Records Department [address] [place] [address] Operative Report MR#: [id number] Acct: [id number] Name: LETHA DEUTSCH Rep #: [id number] : 1950 65 From: Rodolfo Palacios DO PCP: Jazz Rodas DO Status: DEP [facility] DATE OF SERVICE: 02/16/2016 CONSCIOUS SEDATION REPORT BRIEF HISTORY OF PRESENT ILLNESS: The patient is a 65-year-old male, currently under the care of Dr. Maria, who presents for an elective cardioversion secondary to atrial fibrillation. The patient has a longstanding history of atrial fibrillat ion and other cardiac issues including a triple bypass surgery at [facility] in 1996 followed by an ablation procedure [...] C: Referring Provider . T: RACHAEL JOB: [id number] 02/17/16 1243 <Electronically signed by Rodolfo Palacios DO> Date ____ Rodolfo Palacios DO Cosigner Signature (If Indicated): Date CC: Rodolfo Palacios D.O.; Jazz Puentes te Dictated: 02/16/161258 Date Transcribed: 02/16/161258 Accounts Payable Administrator: Signed 17-Feb-2016 Operative Report Result: Comments: See Note; NOTES: [facility] Medical Records Department [address] [place] [address] Operative Report MR#: [id number] Acct: [id number] Name: LETHA DEUTSCH Rep #: [id number] : 1950 65 From: Babatunde Maria MD PCP: Jazz Rodas DO Status: [facility] DATE OF SERVICE: PROCEDURE: DC cardioversion. INDICATIONS: [...] in his care. Babatunde Maria MD T: RACHAEL JOB : [id number] 02/17/16 0833 <Electronically signed by Babatunde Maria MD> Date Babatunde Maria MD Cosigner Signature (If Indicated): Date __ CC: Babatunde Maria MD; Jazz Rodas DO Date Dictated: 02/16/161325 Date Transcribed: 02/16/161325 Accounts Payable Administrator: Signed 01-Jan-2016 Operative Report Result: Comments: See Note; NOTES: [facility] Medical Records Department [address] [place] [address] Operative Report MR#: [id number] Acct: [id number] Name: LETHA DEUTSCH Rep #: [id number] : 1950 65 From: Babatunde Maria MD PCP: Jazz Rodas DO Status: REG [facility] DATE OF SERVICE: PROCEDURE: DC cardioversion. INDICATION: [...] followup. Babatunde Maria MD T: NTS JOB: [id number] 01/01/16 0813 <Electronically signed by Babatunde Maria MD> Date Babatunde Maria MD Cosigner Signature (If Indicated): Date CC: Babatunde Maira MD; Jazz Irvin LAURA Date Dictated: 12/29/15 1143 Date Transcribed: 12/29/15 1143 Accounts Payable Administrator: Signed 31-Dec-2015 Consultation Result: Comments: See Note; NOTES: [facility] Medical Records Department [address] [place] [address] Consultation MR#: [id number] Acct: [id number] Name: LETHA DEUTSCH Rep #: [id number] : 1950 65 From: Zia Aldrich MD PCP: Jazz Rodas DO Status: REG [facility] DATE OF SERVICE: 12/29/2015 BRIEF HISTORY OF PRESENT ILLNESS: The patient is a 65-year-old male, cu rrently under the care of Dr. Maria, who presents for elective KAYLEE and cardioversion secondary to atrial fibrillation. The patient does have a long history of atrial fibrillation and cardiac issues incl uding a triple bypass at [facility] in 1996, atrial ablation in 2011 at [...] Babatunde Maria MD Primary Care Physician T: [facility] JOB: [id number] 12/31/15 0622 <Electronically signed by Zia Aldrich MD> Date [facility] Signature (If Indicated): Date CC: Zia Aldrich MD; Babatunde Maria MD; Jazz Rodas DO Date Dictated: 12/29/151436 Date Transcri bed: 12/29/151436 Accounts Payable Administrator: Signed 29-Dec-2015 Echo Transesophageal (KAYLEE) Result: Comments: See Note; NOTES: [facility] Cardiovascular Services [address] [place] [address] Echo Transesophageal (KAYLEE) 12/29/15 1045 MR#: [id number] Acct: [id number] Name: LETHA DARBY Rep #: [id number] : 1950 65 From: Babatunde Maria MD Attending Dr: Babatunde Maria MD Status: REG [facility] Ordering Dr: Babatunde Maria MD Date: 12/29/15 Location: [facility] Sex: M C Admitted: Lissette fonseca For Study: A. fib Medication KAYLEE probe passed without difficulty. Cetacaine Topical [place] given X3 orally. Versed 2 mg given [...] Dictated: 12/29/15 1045 Date Transcribed: 12/29/15 1237 Accounts Payable Administrator: Signed 20-Nov-2015 OT D/C Summary Result: Comments: See Note; NOTES: [facility] Occupational Therapy [facility] [address] [place], [place] [address] Fax REHABILITATION SERVICES ДМИТРИЙ [facility]ARDINER SUMMARY MR#: [id number] Acct: [id number] Name: LETHA DEUTSCH Rep #: [id number] : 1950 65 From: Linda Blunt Referring [...] of their discharge status. - Objective Objective/Function: Nutrition Faculty Member: R: 95# L: 80#. Lat Pinch: R:26# [...] the izquierdo to regaining sensation and strength. Nutrition Faculty Member: R: 95# L: 80#. Lat Pinch: R:26# L:10#. Tripod Pinch: R:18# L:8#. Gram Abduction: R:375; L: 200. Adduction: R: 800; L:600. Monofilaments: L Th:3.84. L IF:3.22. L MF:3.22. L RF:3.22/4.08. L LF:4.08. In mariano nd manipulation (palm to fingers and fingers to palm) appear normal. If there are questions or concerns regarding this patient's occupational therapy, please fell free to call me at [phone]. Thank you for the referral of this patient. Sincerely, Linda Blunt <Electronically signed by Linda Blunt > 11/20/15 1518 CC: Jazz Rodas DO; Jorge Luis Kerr MD MG Signed 20-Nov-2015 OT General Evaluation Result: Comments: See Note; NOTES: [facility] Occupational Therapy [facility] [address] [place] [address]. [address] [place] [address] Fax REHABILITATION SERVICES IN ITIAL EVALUATION MR#: [id number] Acct: [id number] Name: MARITOLETHA Ruperto Rep #: [id number] : 1950 65 From: Linda Blunt Referring Dr.: Jorge Luis Kerr MD Status: REG RCR Insurance: MEDICARE PA RT A B Eval Date: [employer] Patient's Visit Information LETHA DEUTSCH is a [...] trans position on August 12, 2015 at [place]. Pt. experienced sudden numbness and falling asleep" of L elbow and hand before the surgery. Pt. is retired and worked at [employer] for 34 years. 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 Pt. is R-handed - [...] Elbow: B 5/5 Wrist: R:5/5; L: 4+/5 Nutrition Faculty Member: R:85# L:80# Lateral Pinch: R:22# L:12# Tripod [...] to be FAXED BACK to us at [phone] for Med icare purposes. Please let me [...] W/WO Contrast Result: Comments: See Note; NOTES: [facility] Imaging Services [address] [place] [address] Verdana 4d CTA Head W/WO Contrast MR#: [id number] Acct: [id number] Name: LETHA MASON Rep #: [id number] : 1950 M 65 From: Cecilio Castillo PCP: Jazz Rodas DO Status: REG CLI Study: CTA Head W/WO Contrast Date of Exam: 11/06/15 Exam# [id number] Ordering Dr: Linnea Johnson PRE BILLING SPECIALISTMary Kay STUDY: CTA OF THE BRAIN REASON [...] There is no demonstrated aneurysm of the [place]. There is no demonstrated abnormality of the visualized brain. 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 Mi ld atherosclerotic plaque of the bilateral intracranial carotid arteries. Electronically Signed: Cecilio Castillo MD at 11:58 EDT Tel , Service support [phone], Fax CC: Linnea Hall; Jazz Rodas DO Accounts Payable Administrator: Signed 06-Nov-2015 CTA Head W/WO Contrast Result: Comments: See Note; NOTES: [facility] Imaging Services [address] [place] [address] Verdana 4d CTA Head W/WO Contrast MR#: [id number] Acct: [id number] Name: RUBY LIEBERMANLETHA E Rep #: [id number] : 1950 M 65 From: Cecilio Castillo PCP: Jazz Rodas DO Status: REG CLI Study: CTA Head W/WO Contrast Date of Exam: 11/06/15 Exam# [id number] Ordering Dr: Linnea Johnson PRE BILLING SPECIALIST-C STUDY: CTA OF THE BRAIN REASON FOR [...] There is no demonstrated aneurysm of the [place]. There is no demonstrated abnormality of the visualized brain. CC: Linnea Rodas DO Accounts Payable Administrator: Signed 06-Nov-2015 CTA Neck W/WO Contrast Result: Comments: See Note; NOTES: [facility] Imaging Services [address] [place] [address] Verdana 4d CTA Neck W/WO Contrast MR#: [id number] Acct: [id number] Name: LETHA MASON Rep #: [id number] : 1950 M 65 From: Cecilio Castillo PCP: Jazz Rodas DO Status: REG CLI Study: CTA Neck W/WO Contrast Date of Exam: 11/06/15 Exam# [id number] Ordering Dr: Linnea Johnson PRE BILLING SPECIALIST-C STUDY: CTA NECK WITH CONTRAST REASON FOR [...] at 11:53 EDT Tel , Service support [phone], CC: Linnea Hall; Jazz Rodas DO Accounts Payable Administrator: Signed 06-Nov-2015 CTA Neck W/WO Contrast Result: Comments: See Note; NOTES: [facility] Imaging Services [address] [place] [address] 12182 Verdana 4d CTA Neck W/WO Contrast MR#: [id number] Acct: [id number] Name: LETHA MASON Rep #: [id number] : 1950 M 65 From: Cecilio Castillo PCP: Jazz Rodas DO Status: REG CLI Study: CTA Neck W/WO Contrast Date of Exam: 11/06/15 Exam# [id number] Ordering Dr: Linnea Johnson PRE BILLING SPECIALIST-C STUDY: CTA NECK WITH CONTRAST REASON FOR [...] artery. CC: Linnea Hall; Jazz Rodas DO Accounts Payable Administrator: Signed 30-Sep-2015 Brain W/WO Contrast Result: Comments: See Note; NOTES: [facility] Imaging Services [address] [place] [address] Verda 4d Brain W/WO Contrast MR#: [id number] Acct: [id number] Name: DALIA JHALETHA E Rep #: [id number] : 1950 M 64 From: Cierra Doss MD PCP: Jazz Rodas DO Status: REG CLI Study: Brain W/WO Contrast Date of Exam: 09/30/15 Exam# [id number] Ordering Dr: Prakash Mccarty MD STUDY: MRI [...] MD at 13:08 EDT , Service support [phone], CC: Isaac Mccarty MD; Jazz Rodas DO Accounts Payable Administrator: Signed 28-Sep-2015 Carotid Duplex Ultrasound Result: Comments: See Note; NOTES: [facility] Cardiovascular Services [address] [place] [address] Carotid Duplex Ultrasound 09/25/15 1411 MR#: [id number] Acct: [id number] Name: LETHA DEUTSCH Rep #: [id number] : 1950 64 From: Rian Levi MD [...] the left vertebral artery. Procedure Carotid Duplex 90554. Techncially difficult due to body habitus. Exam performed in department. Interpretation Summary Mild (<50%) stenosis right extracranial internal carotid. Mild (<50%) stenosis l eft extracranial internal carotid. Flow within the vertebral arteries is antegrade bilaterally. Ordering Physician: Jazz Rodas Performed By: Karon Harris RVT 09/28/152157 Date Rian Levi MD CC: Jazz Rodas DO Date Dictated: 09/25/15 1411 Date Transcribed: 09/28/152157 Accounts Payable Administrator: Signed 25-Sep-2015 Brain/Head without Contrast Result: Comments: See Note; NOTES: [facility] Imaging Services [address] [place] [address] Verdana 4d Brain/Head without Contrast MR#: [id number] Acct: [id number] Name: LETHA DEUTSCH Rep #: [id number] : 1950 M 64 From: Juli Klein MD PCP: Jazz Rodas DO Status: REG CLI Study: Brain/Head without Contrast Date of Exam: 09/25/15 Exam# [id number] Ordering Dr: Jazz Rodas DO STUDY: CT [...] at 14:19 EDT Tel cf, Service support [phone], CC: Jazz Rodas DO Accounts Payable Administrator: Signed 17-Sep-2015 Operative Report Result: Comments: See Note; NOTES: [facility] Medical Records Department [address] [place] [address] Operative Report MR#: [id number] Acct: [id number] Name: [facility] E Rep #: [id number] : 1950 64 From: Babatunde Maria MD [...] office. Babatunde Maria MD T: NTS JOB: [id number] 09/17/15804 <Electronically sig catrina by Babatunde Maria MD> Date Babatunde Maria MD Cosigner Signature (If Indicated): Date CC: Babatunde Maria MD; Jazz Rodas DO Date Dictated: 09/16/15 1100 Date Transcribed: 09/16/15 1100 Accounts Payable Administrator: Signed 17-Sep-2015 Operative Report Result: Comments: See Note; NOTES: [facility] Medical Records Department [address] [place] [address] Operative Report MR#: [id number] Acct: [id number] Name: [facility] E Rep #: [id number] : 1950 64 From: Zia Aldrich MD [...] recover in the usual fashion. MD Karen AKHTAR: Babatunde Maria MD Primary Care Physicia n . T: [facility] JOB: [id number] 09/17/15 0608 <Electronically signed by Zia Aldrich MD> Date Zia Aldrich MD Cosigner Signature (If I ndicated): Date CC: Zia Aldrich MD; Jazz Rodas DO Date Dictated: 09/16/15 1115 Date Transcribed: 09/16/15 111 Accounts Payable Administrator: Signed 09-Sep-2015 Chest PA and Lateral Result: Comments: See Note; NOTES: [facility] Imaging Services [address] [place] [address] Verdana 4d Chest PA and Lateral MR#: [id number] Acct: [id number] Name: LETHA CHAUDHARI Rep #: [id number] : 1950 M 64 From: Osvaldo Manuel MD PCP: Jazz Rodas DO Status: REG CLI Study: Chest PA and Lateral Date of Exam: 09/09/15 Exam# [id number] Ordering Dr: Hyun Iglesias PA STUDY: X-RAY [...] Osvaldo Manuel MD at 10:04 EDT Tel [phone], Service support [phone], RAD/Chest PA and Lateral IMPRESSION: Hyperin flation. No acute abnormality is seen. Electronically Signed: Osvaldo Manuel MD at 10:04 EDT Tel [phone], Service support [phone], CC: Jazz reynolds DO; Hyun Iglesias Accounts Payable Administrator: Signed 07-Aug-2015 ELECTROCARDIOGRAM, COMPLETE (ECG) (65214) Comments: afib controlled rate 97 - Result: [MEASUREMENTS ANALYSIS] Date of Test: 08/07/2015 08:26:34; Heart Rate: 97; MA Interval: 0; QRS: 104; QT Interval: 344; Corrected QT Interval (QTc): 408; P Wave [place]: 1; QRS Wave [place]: -31; T Wave [place]: 1; Blood Pressure: 138/78 [ECG DIAGNOSTIC STATEMENTS] Date of Test: 08/07/2015 08:26:34; Summary: Atrial flutter-fibrillation - Nonspecific T-abnormality. ABNORMAL 30-Jul-2015 ELECTROCARDIOGRAM, COMPLETE (ECG) (04521) Comments: afib rate 109 Result: [MEASUREMENTS ANALYSIS] Date of Test: 07/30/2015 17:00:28; Heart Rate: 109; MA Interval: 0; QRS: 108; QT Interval: 338; Corrected QT Interval (QTc): 423; P Wave [place]: 1; QRS Wave [place]: -30; T Wave [place]: 42; Blood Pressure: 122/78 [ECG DIAGNOSTIC STATEMENTS] Date of Test: 07/30/2015 17:00:28; Summary: Atrial fibrillation -Nonspecific QRS widening. -Nonspecific ST depression -Nondiagnostic. ABNORMAL 24-Jul-2015 NCS and/or EMG Patient Result: Comments: See Note; NOTES: [facility] Pulmonary Services/Neurology [address] [place] [address] NCS and/or EMG Patient MR#: [id number] Acct: [id number] Name: LETHA ZUNIGA Rep #: [id number] : 1950 64 From: Mary Dona Referring Dr: Jorge Luis Kerr MD Status: REG CLI Ordering Dr: Jorge Luis Kerr MD Date: 07/23/15 Location: [facility] Sex: M C DATE OF [...] referral. Mary Doan MD T: NTS JOB: [id number] 07/24/152201 <Elect ronically signed by Mary Doan > Date Mary Doan CC: Jazz Rodas DO; MARY DOAN; Jorge Luis Kerr MD Date Dictated: 0938 Date Transcribed: 07/23/1538 Accounts Payable Administrator: Signed 09-Jul-2015 Echocardiogram Complete Result: Comments: See Note; NOTES: [facility] Cardiovascular Services [address] [place] [address] Echo Complete 07/09/15 0858 MR#: [id number] Acct: [id number] Name: LETHA DARBY Rep #: [id number] : 1950 64 From: Babatunde Maria MD Attending Dr: Babatunde Maria MD Status: REG CLI Ordering Dr: Babatunde Maria MD Date: 07/09/15 Location: [facility] Sex: M C Admitted: Reason For Study: [...] Dictated: 07/09/15 0858 Date Transcribed: 07/09/15 1258 Accounts Payable Administrator: Signed 09-Jul-2015 Nuclear Stress Test - Chemical Result: Comments: See Note; NOTES: [facility] Imaging Services [address] [place] [address] Jeysonlois 4d Nuclear Stress Test - Chemical MR#: [id number] Acct: [id number] N alexsander: LETHA DEUTSCH Rep #: [id number] : 1950 64 From: Babatunde Maria MD [...] fraction. Babatunde Maria MD T: NTS JOB: [id number] 07/10/15 1139 <Electronically signed by Babatunde Maria MD> Date Babatunde Maria MD CC: Jazz Rodas DO Date Dictated: 07/09/15 1110 Date Transcribed: 07/09/15 111 Accounts Payable Administrator: Signed 02-May-2015 Lumbar Spine 2 or 3 Views Result: Comments: See Note; NOTES: [facility] Imaging Services [address] [place] [address] Veronica 4d Lumbar Spine 2 or 3 Views MR#: [id number] Acct: [id number] Name: LETHA ARTHUR Rep #: [id number] : 1950 M 64 From: Osvaldo Manuel MD PCP: Jazz Rodas DO Status: REG CLI Study: Lumbar Spine 2 or 3 Views Date of Exam: 05/02/15 Exam# [id number] Ord ering Dr: Sherif Christensen MD STUDY: X-RAY - [...] Osvaldo Manuel MD at 15:13 EST Tel [phone], Service support [phone], 0056 RAD/Lumbar Spine 2 or 3 Views IMPRESSION: Grade 1 anterolisthesis of L5 on S1 with no significant translation on the flexion and extension maneuvers. Multilevel spondylosis and disc space narrowing. Electronically Signed: Osvaldo olivo MD at 15:13 EST Tel [phone], Service support [phone], CC: Sherif Christensen MD; Jazz Rodas DO Accounts Payable Administrator: Signed 02-May-2015 Spine Lumbar without Contrast Result: Comments: See Note; NOTES: [facility] Imaging Services [address] [place] [address] Verdana 4d Spine Lumbar without Contrast MR#: [id number] Acct: [id number] Wisam e: LETHA DEUTSCH Rep #: [id number] : 1950 M 64 From: Scott Kelly MD PCP: Jazz Rodas DO Status: REG CLI Study: Spine Lumbar without Contrast Date of Exam: 05/02/15 Exam# [id number] Ordering Dr: Sherif Christensen MD STUDY: CT [...] time in the future, direct correlation wi plain films/MR images is recommended to determine [...] Scott Kelly MD at 8:31 EST Tel [phone], Ser vice support [phone], CC: Sherif Christensen MD; Jazz Rodas DO Accounts Payable Administrator: Signed 28-Jan-2015 History and Physical Exam Result: Comments: See Note; NOTES: [facility] Medical Records Department [address] [place] [address] 85353 History and Physical 01/24/15 2255 MR#: [id number] Acct: [id number] Name: LETHA DEUTSCH Rep #: [id number] : 1950 64 From: Joe Sinha PA-C PCP: Jazz Rodas DO Status: PRE IN Location: [facility] DATE OF SERVICE: PRIMARY CARE PHYSICIAN: Dr. Natalie Rodas. PROCEDURE TYPE: Reverse total shoulder replacement, right shoulder. PROCEDURE DATE: February 04, 2015. ATTENDING PHYSICIAN: Dr. Jorge Luis Kerr. HISTORY OF PRESENT ILLNESS: This is a 64-year-old male who first presented to [facility] on December 03, 2014. The patient states [...] patient has undergone cardiac clearance by his card grader, Dr. Maria. The patient has a history of coronary artery disease with bypass surgery in 1996. The patient has also had heart ablation in 2010 as well as stents in his left and right iliac arteries. The patient un derwent a heart catheterization in 2011. The patient was given surgical clearance by his card grader. The patient denies any chest pain, shortness of breath, nausea, vomiting, fevers, or chills. Aft er failing conservative treatment measures and discussing all treatment options with Dr. Jorge Luis Kerr, the patient would like to proceed with a reverse total shoulder replacement of the right shouldruperto bondNeri I did discuss and reviewed at length and in detail 10 review of systems. All pertinent positives and negatives are noted in the medical record. Please see attached [facility] medical history sheet. PAST MEDICAL PROBLEMS: 1. [...] DIAGNOSTIC STUDIES: 1. X-rays were obtained at [facility] on December 03, 2014, of the right shoulder including 3 views AP, ___ _ and axillary view, show no acute fracture, dislocation, or other bony abnormalities, ____ lesion inferior aspect of the glenoid. 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 2. MRI o f the right shoulder was obtained at [facility] on ____ 2014, shows a full-thickness tear [...] nt has undergone cardiac clearance from his card grader. Joe Sinha PA-C T: NTS JOB: [id number] 01/28/15 0716 <Electronically signed by Joe Sinha [...] Lumbar (Routine) Result: Comments: See Note; NOTES: [facility] Imaging Services [address] [place] [address] MRI Report MR#: [id number] Acct: [id number] Name: LETHA DEUTSCH Rep #: [id number] : 1950 63 From: Jack Martínez MD PCP: Jazz Rodas DO Status: REG CLI Study: Spine Lumbar (Routine) Date of Exam: 06/13/14 Exam# [id number] Ordering Dr: Mihir Martínez MD STUDY: MR [...] at 19:32 EST Tel , Service support [phone], CC: Mihir Martínez MD; Jazz Rodas DO Accounts Payable Administrator: Signed 06-Mar-2014 Sleep Study Report Result: Comments: See Note; NOTES: [facility] [address] [place] [address]45 Polysomnography with NCPAP MR#: [id number] Acct: [id number] Name: RADHA DEUTSCH Rep #: [id number] : 1950 63 From: Gennaro Larsen MD PCP: Rupinder Encarnacion DO Status: REG CLI Ordering Dr.: Gennaro Larsne MD Date: 02/28/14 Sex: M C REFERRING PHYSICIAN: Dr. Larsen. SLEEP HISTORY: The patient is a 63-year-old gentleman with a calculated body mass index of 36.3 and an [place] Sleepiness Scale score of 8/24. The patient [...] version). Please note that a reference to [facility] AHI in this report is consistent with the current Hypopnea definition according to Medicare Criteria and an AAS AHI reference is consistent with the current Hypopnea definition according to the AASM criteria. PROCEDURE: The stud y was attended continuously by a oil and gas field technician. Monitored parameters included left and right [...] Larsen Jr., MD CC: [place] [address]/06/141205 <Electronically signed by Gennaro Larsen MD> MARIANO Date Gennaro Larsen MD Co-signature (if applicable) Date Signed 30-Jan-2014 Carotid Duplex Ultrasound Result: Comments: See Note; NOTES: [facility] Cardiovascular Services [address] [facility] [place] [address] Carotid Duplex Ultrasound 01/30/14 0854 MR#: [id number] Acct: [id number] Wisam e: LETHA DEUTSCH Rep #: [id number] : 1950 63 From: Rian Levi MD Attending Dr: Rupinder Encarnacion DO Status: REG CLI Ordering Dr: Rupinder Encarnacion DO Date: 01/30/14 Location: [facility] Sex: M C Admitte d: Rt. Velocities/BP [...] the left vertebral artery. Procedure Carotid Duplex 90872. Exam performed in department. Interpretation Summary Mild (<50%) stenosis right extracranial internal carotid. Mild (<50%) stenosis left extracranial internal carotid. Flow within the vertebral arteries is antegrade bilaterally. Ordering Physician: Rupinder Encarnacion Performed By: Karon Harris RVT 01/30/141121 Date Rina Levi MD CC: Rupinder Encarnacion DO Date Dictated: 01/30/14 0854 Date Transcribed: 01/30/141121 Accounts Payable Administrator: Signed Immunization Name Dates Details Influenza (3 years and up) on: 24-Jan-2007 Comments: given o.5cc im in right deltoid lot#[id number] exp.10/09/07-aw Influenza (3 years and up) on: 15-Mar-2008 Influenza (3 years and up) on: 07-Jan-2009 Comments: Lot #:[id number] date:mount given:0.5mlRoute: IMSite given:left deltGiven by: PRECIOUS Serna Pneumococcal (2 years and up) on: 24-Jan-2007 Comments: given 0.5cc in right deltoid lot#[id number] exp. 02/20/08-aw Family History Unknown Family Member Name Dates Details Father Comments: aty 52, Diabetes and [place] Status: Active Mother Comments: CAD, PVD Status: Active Social History Name Dates Details Alcohol Use Comments: Rare beer Status: Active Caffeine Use Status: Active Most Recent Primary Occupation Comments: retired 2013 Status: Active Tobacco Use: Former smoker. Comments: Remotely quit tobacco use- 11/24/10 Status: Active Smoking Status Name Dates Details Former smoker Vital Signs Date Test Result Details [id number]-Qch-[id number]:55 Temperature 97.3 f Comments: Method: Temporal Pulse [...] Area Calculated 2.14 m2 :59 Comments: hearing [facility] and had a glaucoma test done Pulse [...] Surface Area Calculated 2.12 m2 :29 Comments: [facility] and hada glaucoma test doneHearing [...] kg/m2 Body Surface Area Calculated 2.11 m2 47-Ntp-207913:50 Comments: Eye [facility] 2014hearing wnl Pulse 74 /min Comments: [...] 0.00 cm Results Date Description Value Details :57 Blood Glucose , Office (03837) Blood Glucose , Office 123 (Normal) :06 Lipid Profile Comments: [facility] [address] [place], [place], [address] VLDL Test not performed mg/dL (Normal) Range: [...] mg/dL High Risk :06 Liver Profile Comments: [facility] [address] [place], [place], [address] D BILI 0.07 mg/dL (Normal) Range: 0.00-0.30 T BILI 0.30 mg/dL (Normal) Range: 0.20-1.00 ALT 34 U/L (Normal) Range: 16-61 ALK P 58 U/L (Normal) Range: 45-117 AST 23 U/L (Normal) Range: 15-37 GLOB 3.4 g/dL (Normal) Range: 2.2-4.2 ALB 3.4 g/dL (Normal) Range: 3.2-5.0 T PROT 6.8 g/dL (Normal) Range: 6.4-8.2 :19 CBC W/Diff, Automated Comments: [facility] [address] [place], [address] Absolute Lymph 1.39 {X10_3/ul} (Normal) Range: 0.83-4.51 [...] Range: 4.4-11.0 :19 Comprehensive Metabolic Profil Comments: [facility] [address] [place], [place], [address] GAP 13 (Normal) Range: 5-15 CO2 29.0 [...] A.D.A. criteria.Please note revised GLUCOSE reference range yppullapf01/02/2018. 62-Wev-27655:19 Lipid Profile Comments: [facility] [address] [place], [place], [address] VLDL Test not performed mg/dL (Normal) Range: [...] High Risk :19 Microalb:Creat Ratio,Random UR Comments: [facility] [address] [facility] [address] [place], [place], [address] MALB:CREAT 15.8 {mg/g_CRE} (Normal) MICROALBUMIN,UR 13.4 mg/L (Normal) UR CREAT 84.70 mg/dL (Normal) :19 Thyroid Stim Hormone (TSH) Comments: [facility] [address] [place], [place], [address] TSH 1.82 {uIU/mL} (Normal) Range: 0.358-3.74 :19 Urinalysis, Complete Comments: How was Urine Obtained? CLEAN [facility] [address] [facility] [address] [place], [place], [id number] MUCUS, URINE 0 SEEN {/hpf} (Normal) BACTERIA [...] :19 Vitamin B12 353 pg/mL (Normal) Comments: [facility] [address] [place], [address] Range: 211-911 :19 Vitamin D,25 Hydroxy Comments: [facility] [address] [place], [id number] Vitamin D 25-OH 24.7 ng/mL (Abnormal) Range: 29.95-100.01 Comments: Vitamin D 25(OH) Status Range Deficiency <20 ng/mL (50nmol/L) Insuffciency 20 - 30 ng/mL (50 - 75 nmol/L) Sufficiency 30 - 100 ng/mL (75 - 250 nmol/L) Toxicity >100 ng/mL (>250 nmol/L) :02 HgA1C , Office (02738) HgA1C , Office 5.4 % (Normal) Range: 4.6 - 7.1 :02 Blood Glucose , Office (81141) Blood Glucose , Office 141 (Normal) :22 Lipid Profile Comments: [facility] [address] [place], [address] VLDL 49 mg/dL (Abnormal) Range: 5-40 LDL [...] mg/dL High Risk :22 Liver Profile Comments: [facility] [address] [place], [id number] D BILI 0.09 mg/dL (Normal) Range: 0.00-0.30 [...] (PROSTATE SPECIFIC Comments: PATIENT NOT FASTINGPERFORMED BY: [facility] [facility] [id number] ANTIGEN) (V76.44) Prostate Specific Ag, 0.9 ng/mL (Normal) Range: 0.0-4.0 Serum Comments: Esme ECLIA methodology. .According to the [place] [employer], Serum PSA shoulddecrease and remain [...] of malignant disease. :04 HgA1C , Office (49416) HgA1C , Office 5.6 % (Normal) Range: 4.6 - 7.1 :04 Blood Glucose , Office (61101) Blood Glucose , Office 117 (Normal) :37 CBC W/Diff, Automated Comments: [facility] [address] [place], [address] Absolute Lymph 1.18 {X10_3/ul} (Normal) Range: 0.83-4.51 [...] 4.6-6.2 WBC 5.2 K/mm3 (Normal) Range: 4.4-11.0 47-Gyk-52808:37 Comprehensive Metabolic Profil Comments: [facility] [address] [place], [address] GAP 5 (Normal) Range: 5-15 CO2 32.0 [...] (Normal) Range: 70-110 :37 Lipid Profile Comments: [facility] [address] [place], [place], [phone] VLDL 61 mg/dL (Abnormal) Range: 5-40 LDL [...] High Risk :37 Microalb:Creat Ratio,Random UR Comments: [facility] [address] [place], [place], [phone] MALB:CREAT Test not performed {mg/g_CRE} (Normal) MICROALBUMIN,UR < 5.0 mg/L (Normal) UR CREAT 105.00 mg/dL (Normal) :37 Thyroid Stim Hormone (TSH) Comments: [facility] [address] [place], [phone] TSH 1.68 {uIU/mL} (Normal) Range: 0.358-3.74 :37 Urinalysis, Complete Comments: How was Urine Obtained? [facility] [address] [place], [address] MUCUS, URINE 0 SEEN [...] :37 Vitamin B12 539 pg/mL (Normal) Comments: [facility] [address] [place], [address] Range: 211-911 :37 Vitamin D,25 Hydroxy Comments: [facility] [address] [place], [phone] Vitamin D 25-OH 42.0 ng/mL (Normal) Comments: Vitamin D 25(OH) Status Range Deficiency <20 ng/mL (50nmol/L) Insuffciency 20 - 30 ng/mL (50 - 75 nmol/L) Sufficiency 30 - 100 ng/mL (75 - 250 nmol/L) Toxicity >100 ng/mL (>250 nmol/L) Gastric Biopsy See Note (Normal) Comments: [facility] [address], [id number] :56 Comments: Patient: LETHA DEUTSCH : 1950 (65/M) Acct Num: [id number] Phys: Jose Antonio Mehta Unit Num: [id number] Loc: LABSPEC Specimen: [id number] Received: 10/21/161630 Spec Type: Gastric Bx TISSUES TISSUES: COMMENT The results of immunohistochemistry for Helicobacter pylori will be reported separately ([id number]). GROSS DESCRIPTION Received in fixative i s one container labeled with the patient's name and designated gastric/antrum biopsy. The specimen consists of two irregular fragments of light pacheco soft tissue that in aggregate measure 0.6 x 0.3 x 0 .1 cm. The specimen is totally submitted in one cassette. / SJ:berta 10/22/16 TC:3 CPT: 71023 HEADER OPERATION: EGD with biopsy PRE-OP DIAGNOSIS: [...] on file> IMMUNOHISTOCHEMISTRY See Note (Normal) Comments: [facility] [address] [place], [address] :00 Comments: Patient: LETHA DEUTSCH : 1950 (65/M) Acct Num: [id number] Phys: ToneyTheodore manzanaresbilly Unit Num: [id number] Loc: [facility]SPEC Specimen: [id number] Received: 10/25/161212 Spec Type: IMMUNO TISSUES TISSUES: SPECIMEN INFORMATION: Tissue Source: Gastric antrum biopsy Clinical Info: Iron deficiency anemia Specimen Number: [id number] CPT code: 98780 METHODO LOGY: Deparaffinized sections of prefer/formalin-fixed tissue or PAP/DQ stained slides are incubated with monoclonal/polyclonal antibodies/oligonucleotide probes. Localization is made via biotin free immunoperoxidase method. Appropriate controls are performed and reacted as expected. Results on target cell population are indicated in the following table: RESULTS: ANTIBODY / CLONE RESULT H Pylori (polyclonal) negative These tests were developed and their performance characteristics determined by [facility]. They may not hav e been cleared or approved by the U.S. Food and Drug Administration. The FDA has determined that such clearance or approval is not necessary. INTERPRETATION: Gastric antrum, biopsy: Negative for Helicobacter pylori organisms. SJ:berta 10/26/16 PHYSICIAN AND INSTITUTION [address] [address] Signed Peter Ibanez 10/26/16 <signature on file> 0-Quy-643741:26 CBC-Complete Blood Cnt No Diff Comments: [facility] [address] [facility] [place], [place], [phone] MPV 9.7 fL (Normal) Range: 6.2-12.0 PLT [...] 4.6-6.2 WBC 5.5 K/mm3 (Normal) Range: 4.4-11.0 :26 Iron Comments: [facility] [facility] [address] [place], [place], [address] IRON 109 ug/dL (Normal) Range: 65-175 4-Kvm-435515:10 Basic Metabolic Profile (BMP) Comments: DR.STRUNETS MALHOTRA BMP,CBCD DR. CROW MALHOTRA PT/[facility] [address] [place], [address] GAP 7 (Normal) Range: 5-15 [...] 126 mg/dLsuggests DIABETES MELLITUS per A.D.A. criteria. 7-Kws-507085:10 CBC W/Diff, Automated Comments: DR.STRUNETS MALHOTRA BMP,CBCD DR. CROW MALHOTRA PT/[facility] [address]xbr[address] [place], [address] Absolute Lymph 0.85 {X10_3/ul} (Normal) [...] 4.6-6.2 WBC 3.9 K/mm3 (Abnormal) Range: 4.4-11.0 7-Nsg-096842:10 Prothrombin Time w/INR Comments: DR.STRUNETS MALHOTRA BMP,CBCD DR. CROW [facility]OTRA [facility] [address] [place], [address] INR 1.5 (Normal) PROTIME 17.9 s (Abnormal) Range: 11.7-14.9 56-Ueq-775992:31 Stool Occult Blood iFOB Comments: [facility] [address] [facility] [place], [address] STOB See Note (Normal) Comments: Order Date: 09/02/16 STOB iFOBOccult Blood Positive ORGANISM 1: OCCULT BLOOD POSITIVE 44-Unj-699991:25 Basic Metabolic Profile (BMP) Comments: [facility] Cl[address]beewkw[address] [facility] [place], [address] GAP 8 (Normal) Range: 5-15 [...] 7-18 GLU 98 mg/dL (Normal) Range: 70-110 35-Qpi-226881:25 CBC-Complete Blood Cnt No Diff Comments: [facility] [address]fq[address] [facility] [address] [place], [place], [address] MPV 8.8 fL (Normal) Range: 6.2-12.0 PLT [...] 4.6-6.2 WBC 5.6 K/mm3 (Normal) Range: 4.4-11.0 65-Oko-053888:25 Liver Profile Comments: [facility] [address] [place], [place], [address] D BILI 0.05 mg/dL (Normal) Range: 0.00-0.30 T BILI 0.20 mg/dL (Normal) Range: 0.20-1.00 ALT 24 U/L (Normal) Range: 12-78 ALK P 51 U/L (Normal) Range: 45-117 AST 13 U/L (Abnormal) Range: 15-37 GLOB 3.3 g/dL (Normal) Range: 2.3-3.5 ALB 3.7 g/dL (Normal) Range: 3.4-5.0 T PROT 7.0 g/dL (Normal) Range: 6.4-8.2 11-Zxs-718907:25 Prothrombin Time w/INR Comments: [facility] [address] [place], [place], [address] INR > 19.5 (Abnormal) Comments: RESULTS CALLED TO BRITTANEY 09/02/16 1753 Vito Arteaga.REPORT READ BACK BY SAME. PROTIME > 120.0 s (Abnormal) Range: 11.7-14.9 05-Nqi-338841:53 Prothrombin Time w/INR Comments: [facility] [address] [place], [place], [address] INR > 19.5 (Abnormal) Comments: CRITICAL VALUE VERIFIED. CALLED TO GERRY AT [facility]09/02/16 1447 Alice Luque.RESULTS READ BACK BY SAME . PROTIME > 120.0 s (Abnormal) Range: 11.7-14.9 42-Lsx-917598:33 Prothrombin Time w/INR Comments: [facility] [address] [place], [place], [address] INR 1.9 (Normal) PROTIME 21.2 s (Abnormal) Range: 11.7-14.9 :51 HgA1C , Office (81185) HgA1C , Office 5.5 % (Normal) Range: 4.6 - 7.1 :51 Blood Glucose , Office (76837) Blood Glucose , Office 131 (Normal) 77-Ucj-232144:44 Prothrombin Time w/INR Comments: [facility] [address] [place], [place], [address] INR 2.4 (Normal) PROTIME 25.5 s (Abnormal) Range: 11.7-14.9 96-Rgk-394520:11 Prothrombin Time w/INR Comments: [facility] [address] [place], [address] INR 1.5 (Normal) PROTIME 17.7 s (Abnormal) Range: 11.7-14.9 2-Ejw-326549:47 Prothrombin Time w/INR Comments: [facility] [address] [place], [address] INR 1.5 (Normal) PROTIME 17.7 s (Abnormal) Range: 11.7-14.9 9-Dok-934993:45 Basic Metabolic Profile (BMP) Comments: Order Date: 06/09/16Order Info: [id number] - *BMPDR. [facility] ORDERED PTINR STANDING ORDER.Order Date: 06/09/16Order Info: [id number] - *BMPComments: Reason:[facility] [address] [place], [address] GAP 9 (Normal) Range: 5-15 CO2 30.0 [...] 7-18 GLU 106 mg/dL (Normal) Range: 70-110 38-Emx-35049:02 Prothrombin Time w/INR Comments: [facility] [address] [place], [address] INR 1.8 (Normal) PROTIME 20.1 s (Abnormal) Range: 11.7-14.9 80-Alf-76311:27 POTASSIUM SERUM (13975) Comments: STAT; Order Date: 06/30/16Order Info: [id number] - KComments: STATOrder Date: 06/30/16Order Info: [id number] - KComments: [facility] Ktkffoosuj8887 [place], [address] K 4.6 mmol/L Range: 3.5-5.1 (Normal) Vitamin B2, Whole 236 ug/L (Normal) Comments: PATIENT NOT FASTINGPERFORMED BY: [facility] Xislld1365 Hansen RoadDublin [place] [id number] BY: [address] [id number] 5:40 Blood Range: 137-370 Comments: Reference interval reflects flavinadeninedinucleotide (FAD), that accounts for approximately 90% of the total riboflavin in whole blood. 54-Suo-586483:40 Vitamin B6, Plasma Comments: PATIENT NOT FASTINGPERFORMED BY: [facility] Nmcqfd5506 Hansen RoadDublin [place] [id number] BY: [address] [id number] (267[address]) Vitamin B6 36.6 ug/L (Normal) Range: 5.3-46.7 15-Dmt-207433:40 ALCOHOL, ETHYL (BLOOD) Comments: serum alcohol; PATIENT NOT FASTINGPERFORMED BY: [facility] Dgxvwl3374 Hansen RoadDublin [place] [id number] BY: [place] [id number] ([address]52) Ethanol Negative % (Normal) 88-Qwp-326052:40 AMMONIA (54783) Comments: PATIENT NOT FASTINGPERFORMED BY: [facility] Lhzxdt1135 Hansen RoadDublin [place] [id number] BY: [address] [id number] Ammonia, Plasma 42 ug/dL (Normal) Range: 27-102 25-Uts-965933:40 VITAMIN B-12 Comments: PATIENT NOT FASTINGPERFORMED BY: [facility] Skicgz7502 Hansen RoadDublin [place] [id number] BY: [employer] [id number] (CYANOCOBALAMIN) (91200) Vitamin B12 417 pg/mL (Normal) Range: 211-946 :40 SED RATE ERYTHROCYTE Comments: PATIENT NOT FASTINGPERFORMED BY: [facility] Kjkhgs8322 Hansen Roadblin [place] [id number] BY: [employer] [id number] ([address]) Sedimentation Rate-Westergren 8 mm/h (Normal) Range: 0-30 96-Gdc-171289:40 RHEUMATOID FACTOR-QUANT Comments: PATIENT NOT FASTINGPERFORMED BY: [facility] Jytvie0[address] [facility] Center[facility] [place] [id number] BY: [address] [id number] ([address]) RA Latex Turbid. 10.8 {IU/mL} (Normal) Range: 0.0-13.9 87-Nle-265060:40 METABOLIC PANEL, Comments: PATIENT NOT FASTINGPERFORMED BY: [employer] [facility] Qvgnuq[address] [facility]in [place] [id number] BY: [address] [id number] COMPREHENSIVE (45734) ALT (SGPT) 25 [iU]/L (Normal) Range: 0-44 [...] Glucose, Serum 100 mg/dL (Abnormal) Range: 65-99 98-Cbo-449830:40 C-REACTIVE PROTEIN Comments: PATIENT NOT FASTINGPERFORMED BY: [employer] [id number] BY: [employer] [id number] (89414) C-Reactive Protein, Quant 0.9 mg/L (Normal) Range: 0.0-4.9 :40 CBC (AUTO) (45387) Comments: PATIENT NOT FASTINGPERFORMED BY: [employer] [id number] BY: [employer] [id number] Platelets 194 {x10E3/uL} (Normal) Range: 150-379 RDW 15.6 % (Abnormal) Range: 12.3-15.4 MCHC 33.1 g/dL (Normal) Range: 31.5-35.7 MCH 34.4 pg (Abnormal) Range: 26.6-33.0 MCV 104 fL (Abnormal) Range: 79-97 Hematocrit 39.9 % (Normal) Range: 37.5-51.0 Hemoglobin 13.2 g/dL (Normal) Range: 12.6-17.7 RBC 3.84 {x10E6/uL} (Abnormal) Range: 4.14-5.80 WBC 5.9 {x10E3/uL} (Normal) Range: 3.4-10.8 :40 CHIQUI (ANTINUCLEAR ANTIBODY) Comments: PATIENT NOT FASTINGPERFORMED BY: [place] [id number] [facility] [id number] BY: [place] [id number] (09559) CHIQUI Direct Negative (Normal) :40 TSH (29424) Comments: PATIENT NOT FASTINGPERFORMED BY: ClipClock[address] [id number] BY: [place] [id number] TSH 2.350 {uIU/mL} (Normal) Range: 0.450-4.500 :40 T4, FREE (THYROXINE) Comments: PATIENT NOT FASTINGPERFORMED BY: ClipClockMariah [place] [id number] [facility] [id number] BY: [address] [id number] (86187) T4,Free(Direct) 0.95 ng/dL (Normal) Range: 0.82-1.77 :40 T3, FREE (TRIDOTHYRONINE) Comments: PATIENT NOT FASTINGPERFORMED BY: [employer] [id number] BY: [address] [id number] (14772) Triiodothyronine,Free,Serum 2.7 pg/mL (Normal) Range: 2.0-4.4 :40 CALCIFIDIOL (01117) VIT D Comments: PATIENT NOT FASTINGPERFORMED BY: [address] [id number] BY: [address] [id number] 25 Vitamin D, 25-Hydroxy 43.4 ng/mL (Normal) Range: 30.0-100.0 Comments: Vitamin D deficiency has been defined by the [place] ofMedicine and an Endocrine Society practice guideline as alevel of serum 25-OH vitamin D less than 20 ng/mL (1,2).The Endocrine Society went on to further define vitamin Dinsufficiency as a level between 21 and 29 ng/mL (2).1. IOM ([place] of Medicine). 2010. Dietary reference intakes for calcium and D. Ca [place]: The National Academies Press.2. Elyse MF, Saumya PUENTE, Nai MARIANO, et al. Evaluation, treatment, and prevention of vitamin D deficiency: an Endocrine Society clinical practice guideline. JCEM. 2010; 96(7):1911-30. 74-Cfv-427759:45 Alcohol, Blood (Medical)-Serum Comments: [facility] [address] [place], [place], [address] SERUM ETOH 353.0 mg/dL (Abnormal) Comments: CALLED KEESHA LOBO RN ED [place] 2054PM MAF READ BACK BY SAMEThe serum:whole blood ethanol ratio is approximately 1.14and varies slightly with hematocrit.Medical Alcohol reference interval and critical v alue innon-tolerant individuals; 50 - 100 Impairment 100 Intoxication 100 - 250 Severe Poisoning 250 - 400 Deep/possible fatal coma 60-Htl-304377:45 Basic Metabolic Profile (BMP) Comments: 'TROP' Serial specimen #1, #2, #3, or #4: 1[facility] [address] [place], [place], [address] GAP 10 (Normal) Range: 5-15 CO2 26.0 [...] Range: 70-110 :45 CBC W/Diff, Automated Comments: [facility] [address] [place], [place], [address] Absolute Lymph 2.30 {X10_3/ul} (Normal) Range: 0.83-4.51 [...] Range: 4.4-11.0 :45 Partial Thromboplast Time Comments: [facility] [address] [place], [address] PTT 28.3 s (Normal) Range: 24.1-36.2 :45 Prothrombin Time w/INR Comments: [facility] [address]up[address] [place], [address] INR 1.1 (Normal) PROTIME 14.1 s (Normal) Range: 11.7-14.9 :45 Troponin-I Comments: 'TROP' Serial specimen #1, #2, #3, or #4: [facility] [address]cbmtoav[address] [place], [address] TROPONIN-I < 0.02 ng/mL (Normal) Comments: TROPONIN-I EXPECTED VALUES <0.05 NEGATIVE 0.06 - 0.59 AT RISK OF VA > OR = 0.60 SUGGEST VA :24 Prothrombin Time w/INR Comments: [facility] [address] [place], [place], [address] ; [facility] INR 1.3 (Normal) PROTIME 15.2 s (Abnormal) Range: 11.7-14.9 81-Elr-676449:46 INR Fingerstick Comments: [facility] LaboratoryPoint Cuqu[address] [place] [phone] INR ISTAT 3.90 (Abnormal) Comments: Critical Value > 3.5 :46 Prothrombin Time Fingerstick Comments: [facility] LaboratoryPoint [place] [address] [place] [address] PROTIME ISTAT 43.7 {SEC} (Abnormal) Range: 11.9-14.4 Comments: Reference Range 11.9 - 14.4 33-Pca-054515:46 Prothrombin Time w/INR Comments: [facility] X[address] [place], [address] INR 4.0 (Abnormal) Comments: CRITICAL VALUE VERIFIED. CALLED TO GMTDZKP22 Nova Walters.RESULTS READ BACK BY SAME . PROTIME 38.0 s (Abnormal) Range: 11.7-14.9 79-Bqm-180778:49 Prothrombin Time w/INR Comments: [facility] [address] [place], [address] INR 2.8 (Normal) PROTIME 28.4 s (Abnormal) Range: 11.7-14.9 68-Oij-876451:52 Basic Metabolic Profile (BMP) Comments: Order Date: 05/04/16Order Info: [id number] - *BMPOrder Date: 05/04/16Order Info: [id number] - *Brain Natriuretic Peptide BNPComments: Reason:[facility] [address] [place], [place], [address] GAP 10 (Normal) Range: 5-15 CO2 30.0 [...] 7-18 GLU 104 mg/dL (Normal) Range: 70-110 29-Tzt-782763:52 BNP,B-Type NATRIURETIC PEPTIDE Comments: Order Date: 05/04/16Order Info: [id number] - *Brain Natriuretic Peptide BNPOrder Date: 05/04/16Order Info: [id number] - *Brain Natriuretic Peptide BNPWooUniversity Hospitals [facility] [address]yz[address] [place], [place], [address] B-TYPE ARASELI PEP 240.6 pg/mL (Abnormal) Range: 0-100 56-Wjt-621749:52 Prothrombin Time w/INR Comments: [facility] [address]xphcdcx[address] [place], [address] INR 2.5 (Normal) PROTIME 25.8 s (Abnormal) Range: 11.7-14.9 55-Wdt-628196:46 Liver Profile Comments: Order Date: 12/12/15Order Date: [facility]/12/[facility] [address]idbekrom[address] [place], [address] D BILI 0.12 mg/dL (Normal) Range: 0.00-0.30 [...] Range: 6.4-8.2 :46 Prothrombin Time w/INR Comments: [facility] Cliqncohsh[address] [place], [address] INR 3.6 (Abnormal) Comments: CRITICAL VALUE REPEATED AND VERIFIED. CALLED TO DARRYL MEYERS'S OFFICE.04/26/16 1238 Randy Buchanan.RESULTS READ BACK BY SAME. PROTIME 35.0 s (Abnormal) Range: 11.7-14.9 :58 Basic Metabolic Profile (BMP) Comments: [facility] Kizvgznfwt5942 [place], [address] GAP 7 (Normal) Range: 5-15 CO2 32.0 [...] Range: 70-110 :58 Prothrombin Time w/INR Comments: [facility] [address] [place], [place], [address] INR 1.9 (Normal) PROTIME 20.9 s (Abnormal) Range: 11.7-14.9 :08 Prothrombin Time w/INR Comments: [facility] [address] [place], [place], [address](221) INR 3.3 (Normal) PROTIME 32.5 s (Abnormal) Range: 11.7-14.9 :34 Prothrombin Time w/INR Comments: [facility] [address] [place], [place], [address] ; managed by [facility] INR 2.6 (Normal) PROTIME 27.0 s (Abnormal) Range: 11.7-14.9 :16 HgA1C , Office (35713) HgA1C , Office 5.7 % (Normal) Range: 4.6 - 7.1 :13 Prothrombin Time w/INR Comments: [facility] [address] [place], [place], [address](015) INR 2.6 (Normal) PROTIME 27.1 s (Abnormal) Range: 11.7-14.9 :26 CBC W/Diff, Automated Comments: [facility] [address] [place], [address] Absolute Lymph 1.54 {X10_3/ul} (Normal) [...] ORDERED VITD LIPID MAG CBCD CMP MIACRE [facility] [address]ps[address]bbj[address] [place], [address] GAP 4 (Abnormal) Range: 5-15 CO2 [...] ORDERED VITD LIPID MAG CBCD CMP MIACRE [facility] Rearwekywj[address] [place], [place], [address] VLDL 72 mg/dL (Abnormal) Range: 5-40 LDL [...] ORDERED PT/INRDR.IRVIN ORDERED VITD LIPID MAG CBCD [facility] Ofiemizvvk[address] [place], [place], [address](941) MG 2.6 mg/dL (Abnormal) Range: 1.8-2.4 :26 Microalb:Creat Ratio,Random UR Comments: [facility] [address] [place], [address] MALB:CREAT 24.3 {mg/g_CRE} (Normal) MICROALBUMIN,UR 70.9 mg/L (Normal) UR CREAT 292.00 mg/dL (Normal) :26 Prothrombin Time w/INR Comments: [facility] [address]wbylagpol[address] [place], [place], [address] INR 3.5 (Abnormal) Comments: CRITICAL VALUE REPEATED AND VERIFIED. CALLED TO ORTIZ LABOY'S OFFICE.03/16/16 0742 Randy Buchanan.RESULTS READ BACK BY SAME. PROTIME 33.9 s (Abnormal) Range: 11.7-14.9 :26 Thyroid Stim Hormone (TSH) Comments: ORDERED PT/INRDR.IRVIN ORDERED VITD LIPID MAG CBCD [facility] [address]acfxxjr[address] [place], [place], [address] TSH 2.35 {uIU/mL} (Normal) Range: 0.358-3.74 :26 Urinalysis, Complete Comments: How was Urine Obtained? CLEAN [facility] [address]twsvklq[address] [place], [address] HYALINE CAST 5-10 SEEN {/lpf} (Normal) [...] Yellow (Normal) :26 Vitamin D,25 Hydroxy Comments: [facility] [address] [place], [address] Vitamin D 25-OH 39.8 ng/mL (Normal) Comments: Vitamin D 25(OH) Status Range Deficiency <20 ng/mL (50nmol/L) Insuffciency 20 - 30 ng/mL (50 - 75 nmol/L) Sufficiency 30 - 100 ng/mL (75 - 250 nmol/L) Toxicity >100 ng/mL (>250 nmol/L) :03 Prothrombin Time w/INR Comments: [facility] [address] [place], [address] INR 4.0 (Abnormal) Comments: CRITICAL VALUE REPEATED AND VERIFIED. CALLED TO [facility]OTA NAVARROCRESTLINE [facility]03/10/16 0907 Alice Luque.RESULTS READ BACK BY SAME . PROTIME 37.4 s (Abnormal) Range: 11.7-14.9 :57 Prothrombin Time w/INR Comments: [facility] [address] [place], [place], [address] INR 1.6 (Normal) PROTIME 18.3 s (Abnormal) Range: 11.7-14.9 :02 Prothrombin Time w/INR Comments: [facility] [address] [place], [address](701) INR 1.8 (Normal) PROTIME 20.6 s (Abnormal) Range: 11.7-14.9 :12 Prothrombin Time w/INR Comments: [facility] [address] [place], [address](803) INR 2.3 (Normal) PROTIME 24.4 s (Abnormal) Range: 11.7-14.9 :50 Prothrombin Time w/INR Comments: [place] [address] [place], [address]( INR 2.8 (Normal) PROTIME 28.9 s (Abnormal) Range: 11.7-14.9 :40 INR Fingerstick Comments: [facility] LaboratoryPoint [place] [address] [place] [address](915) INR ISTAT 2.40 (Normal) Comments: Critical Value > 3.5 :40 Prothrombin Time Fingerstick Comments: [facility] LaboratoryPoint [place] [address] [place] [address](129) PROTIME ISTAT 27.5 {SEC} (Abnormal) Range: 11.9-14.4 Comments: Reference Range 11.9 - 14.4 :54 Prothrombin Time w/INR Comments: THERE IS NO VRO CHARGE ON THIS PATIENT; THIS PATIENTRETURNED FROM TUESDAY. A BMP AND A PT WAS SUPPOSED TO BEDRAWN, ONLY THE BMP WAS DONE. [facility] [address]culen[address] [place], [address] INR 2.8 (Normal) PROTIME 28.4 s (Abnormal) Range: 11.7-14.9 :38 Basic Metabolic Profile (BMP) Comments: Order Date: 01/08/16Comments: Reason:Order Date: 01/08/16Comments: Reason:[facility] [address] [place], [address] GAP 9 (Normal) Range: 5-15 CO2 25.0 [...] A.D.A. criteria. :52 Prothrombin Time w/INR Comments: [facility] F[address] [facility] [address] [place], [place], [phone](047) INR 4.6 (Abnormal) Comments: CRITICAL VALUE REPEATED AND VERIFIED. CALL[facility] TO [facility]02/05/16 1003 Alice Luque.RESULTS READ BACK BY SAME . PROTIME 41.9 s (Abnormal) Range: 11.7-14.9 :01 Prothrombin Time w/INR Comments: [facility] [address] [place], [place], [address](853) INR 2.5 (Normal) PROTIME 26.0 s (Abnormal) Range: 11.7-14.9 :40 Prothrombin Time w/INR Comments: [facility] [address] [place], [place], [address](435) INR 2.5 (Normal) PROTIME 26.1 s (Abnormal) Range: 11.7-14.9 :52 Prothrombin Time w/INR Comments: [facility] [address]kl[address]ql[address] [place], [address] INR 2.3 (Normal) PROTIME 24.3 s (Abnormal) Range: 11.7-14.9 9-Dxu-321616:24 Basic Metabolic Profile (BMP) Comments: Order Date: 01/13/16Comments: Reason: For Out patient Cardioversion on 02/16/16Order Date: 01/13/16Comments: Reason: For Out patient Cardioversion on 02/16/16[facility] [address] [place], [address] GAP 5 (Normal) Range: 5-15 CO2 33.0 [...] 7-18 GLU 108 mg/dL (Normal) Range: 70-110 01-Wus-06238:45 Basic Metabolic Profile (BMP) Comments: Order Date: 12/09/15Interface Comments: Reason:Order Date: 12/09/15[facility] [address] [place], [address] GAP 9 (Normal) Range: 5-15 CO2 29.0 [...] 01/05/16Interface Comments: Reason:Atrial fib, on CoumadinOrder Date: 01/05/16[facility] [address] [place], [place], [address](285) INR 3.6 (Abnormal) Comments: CRITICAL VALUE REPEATED AND VERIFIED. CALLED TO CANDACE P001/07/16 0819 Terrie Toussaint.RESULTS READ BACK BY CANDACE. PROTIME 34.9 s (Abnormal) Range: 11.7-14.9 :21 Prothrombin Time w/INR Comments: [facility] [address] [place], [place], [address](490) INR 2.1 (Normal) PROTIME 23.1 s (Abnormal) Range: 11.7-14.9 :12 Prothrombin Time w/INR Comments: Order Date: 12/26/15Interface Comments: draw on arrivalOrder Date: 12/26/15[facility] [address] [place], [place], [address](355) INR 2.9 (Normal) PROTIME 29.2 s (Abnormal) Range: 11.7-14.9 82-Mpg-801376:08 Prothrombin Time w/INR Comments: [facility] [address] [place], [place], [address](060) INR 1.7 (Normal) PROTIME 19.6 s (Abnormal) Range: 11.7-14.9 71-Wmw-51804:03 Prothrombin Time w/INR Comments: Order Date: 12/18/15Order Date: [facility]18/15[facility] [address]mowdra[address] [place], [address] INR 4.1 (Abnormal) Comments: CRITICAL VALUE REPEATED AND VERIFIED. CALLED TO DARRYL LABOY'S OFFICE.12/23/15 0803 Randy LylesRESULTS READ BACK BY SAME. PROTIME 38.6 s (Abnormal) Range: 11.7-14.9 2-Vcr-950897:16 Basic Metabolic Profile (BMP) Comments: Order Date: 12/18/15Interface Comments: Reason:Order Date: 12/18/15[facility] [address]xxapnqib6[address] [place], [address] GAP 9 (Normal) Range: 5-15 CO2 [...] <126 mg/dLsuggests IMPAIRED HOMEOSTASIS per A.D.A. criteria. 16-Dec-20158:11 Prothrombin Time w/INR Comments: [facility] [id number] [place], [id number] INR 3.6 (Abnormal) Comments: CRITICAL VALUE REPEATED AND VERIFIED. CALLED TO JANINERN12/16/15 Ondina Luque.RESULTS READ BACK BY SAME . PROTIME 34.5 s (Abnormal) Range: 11.7-14.9 :10 Basic Metabolic Profile (BMP) Comments: Order Date: 12/04/15Interface Comments: Reason:Order Date: 12/04/15[facility] [id number] [place], [place], [id number] GAP 8 (Normal) Range: 5-15 CO2 28.0 [...] Comments: Order Date: 12/04/15Interface Comments: Reason:Order Date: 12/04/15[facility] [id number] [place], [place], [id number] VLDL Test not performed mg/dL (Normal) Range: [...] Comments: Order Date: 12/04/15Interface Comments: Reason:Order Date: 12/04/15[facility] [id number] [place], [id number] D BILI 0.11 mg/dL (Normal) Range: 0.00-0.30 T BILI 0.30 mg/dL (Normal) Range: 0.20-1.00 ALT 63 U/L (Normal) Range: 12-78 ALK P 64 U/L (Normal) Range: 50-136 AST 33 U/L (Normal) Range: 15-37 GLOB 3.2 g/dL (Normal) Range: 2.3-3.5 ALB 3.5 g/dL (Normal) Range: 3.4-5.0 T PROT 6.7 g/dL (Normal) Range: 6.4-8.2 :10 Magnesium Comments: Order Date: 12/04/15Interface Comments: Reason:Order Date: 12/04/15[facility] [id number] [place], [id number] MG 2.1 mg/dL (Normal) Range: 1.8-2.4 :10 Prothrombin Time w/INR Comments: Order Date: 12/04/15Interface Comments: Reason:Order Date: 12/04/15[facility] [id number] [place], [id number] INR 1.7 (Normal) PROTIME 19.3 s (Abnormal) Range: 11.7-14.9 :10 Thyroid Stim Hormone (TSH) Comments: Order Date: 12/04/15Interface Comments: Reason:Order Date: 12/04/15[facility] [address] [place], [address] TSH 1.65 {uIU/mL} (Normal) Range: 0.358-3.74 :41 MAGNESIUM (29813) Comments: PATIENT NOT FASTINGPERFORMED BY: [facility]CoUnion [facility] HospitalVmshxe4111 [facility] [id number] Magnesium, Serum 2.1 mg/dL (Normal) Range: 1.6-2.3 [...] Basic Comments: PATIENT NOT FASTINGPERFORMED BY: [facility] Rbtayi5791 [facility] [id number] Information: [id number] (57901) Calcium, Serum 9.1 mg/dL (Normal) Range: 8.6-10.2 [...] Range: 65-99 :21 Blood Glucose , Office (49459) Blood Glucose , Office 99 (Normal) :21 HgA1C , Office (06543) HgA1C , Office 5.0 % (Normal) Range: 4.6 - 7.1 :49 RETICULOCYTE COUNT (73199) Comments: PATIENT NOT FASTINGPERFORMED BY: [facility] VinelandVewsoh2590 [facility] [id number] Reticulocyte Count 2.4 % (Normal) Range: 0.6-2.6 :49 VITAMIN B-12 (CYANOCOBALAMIN) Comments: PATIENT NOT FASTINGPERFORMED BY: [facility] VinelandKipdjh1648 [facility] [id number] Information: [id number] (52563) Vitamin B12 560 pg/mL (Normal) Range: 211-946 :36 Bilirubin, Direct Comments: [facility] [address] [place], [place], [address] D BILI 0.14 mg/dL (Normal) Range: 0.00-0.30 :36 CBC W/Diff, Automated Comments: [facility] [address] [place], [place], [address] Absolute Lymph 1.26 {X10_3/ul} (Normal) Range: 0.83-4.51 [...] 4.6-6.2 WBC 5.1 K/mm3 (Normal) Range: 4.4-11.0 98-Vbt-91707:36 Comprehensive Metabolic Profil Comments: [facility] [address] [place], [place], [address] GAP 6 (Normal) Range: 5-15 CO2 30.0 [...] per A.D.A. criteria. :36 Lipid Profile Comments: [facility] [address]rb[address] [place], [place], [address] VLDL 62 mg/dL (Abnormal) Range: 5-40 LDL [...] High Risk :36 Microalb:Creat Ratio,Random UR Comments: [facility] [address] [place], [place], [address] MALB:CREAT 142.0 {mg/g_CRE} (Abnormal) MICROALBUMIN,UR 223.0 mg/L (Normal) UR CREAT 157.00 mg/dL (Normal) :36 Thyroid Stim Hormone (TSH) Comments: [facility] [address] [place], [place], [id number] TSH 1.17 {uIU/mL} (Normal) Range: 0.358-3.74 :36 Urinalysis, Complete Comments: How was Urine Obtained? CLEAN [facility] [address]oxi[address] [place], [place], [id number] MUCUS, URINE 0 SEEN {/hpf} (Normal) BACTERIA [...] Yellow (Normal) :36 Vitamin D,25 Hydroxy Comments: [facility] [address]xco[address] [place], [place], [address] Vitamin D 25-OH 21.0 ng/mL (Normal) Comments: Vitamin D 25(OH) Status Range Deficiency <20 ng/mL (50nmol/L) Insuffciency 20 - 30 ng/mL (50 - 75 nmol/L) Sufficiency 30 - 100 ng/mL (75 - 250 nmol/L) Toxicity >100 ng/mL (>250 nmol/L) 90-Wsh-043223:29 HgA1C , Office (02985) HgA1C , Office 5.6 % (Normal) Range: 4.6 - 7.1 :29 Blood Glucose , Office (19416) Blood Glucose , Office 96 (Normal) :29 CBC W/Diff, Automated Comments: [facility] [address] [place], [place], [address] Absolute Lymph 2.04 {X10_3/ul} (Normal) Range: 0.83-4.51 [...] 4.6-6.2 WBC 7.9 K/mm3 (Normal) Range: 4.4-11.0 80-Zse-309429:29 Comprehensive Metabolic Profil Comments: [facility] [address]herman[address] [place], [place], [address] GAP 12 (Normal) Range: 5-15 CO2 25.0 [...] <126 mg/dLsuggests IMPAIRED HOMEOSTASIS per A.D.A. criteria. 09-Qcb-366440:16 Rapid Flu (64489 x 2) Influenza A Ag neg a and b (Normal) :13 Basic Metabolic Profile (BMP) Comments: [facility] [address]qa[address] [place], [place], [address] GAP 4 (Abnormal) Range: 5-15 CO2 33.0 [...] (Normal) Range: 70-110 :50 HgA1C , Office (92008) HgA1C , Office 5.2 % (Normal) Range: 4.6 - 7.1 :50 Blood Glucose , Office (47912) Blood Glucose , Office 111 (Normal) :48 Basic Metabolic Profile (BMP) Comments: [facility] [address] [place], [address] GAP 7 (Normal) Range: 5-15 CO2 31.0 [...] A.D.A. criteria. :48 T4 Total, Thyroxin Comments: [facility] [address] [place], [place], [address] T4 THYROXIN 6.7 ug/dL (Normal) Range: 4.5-12.1 :48 Thyroid Stim Hormone (TSH) Comments: [facility] [address] [place], [address] TSH 1.02 {uIU/mL} (Normal) Range: 0.358-3.74 :35 CBC W/Diff, Automated Comments: [facility] [address] [place], [place], [address] Absolute Lymph 1.13 {X10_3/ul} (Normal) Range: 0.83-4.51 [...] Range: 4.4-11.0 :35 Comprehensive Metabolic Profil Comments: [facility] [address] [place], [place], [address] GAP 5 (Normal) Range: 5-15 CO2 31.0 [...] (Normal) Range: 70-110 :35 Lipid Profile Comments: [facility] Uycrnphaer8952 [facility] [place], [place], [address] VLDL 44 mg/dL (Abnormal) Range: 5-40 LDL [...] High Risk :35 Microalb:Creat Ratio,Random UR Comments: [facility] [address]on79[address] [facility] [address]. [place], [place], [address] MALB:CREAT 31.9 {mg/g_CRE} (Abnormal) MICROALBUMIN,UR 31.7 mg/L (Normal) UR CREAT 99.40 mg/dL (Normal) :35 Thyroid Stim Hormone (TSH) Comments: [facility] [address] [place], [address] TSH 1.05 {uIU/mL} (Normal) Range: 0.358-3.74 :35 Urinalysis, Complete Comments: How was Urine Obtained? [facility] N[address]nfmflnt3950 [facility] [place], [address] MUCUS, URINE 0 SEEN {/hpf} [...] COLOR Yellow (Normal) :48 HgA1C , Office (72463) HgA1C , Office 5.2 % (Normal) Range: 4.6 - 7.1 :48 Blood Glucose , Office (56314) Blood Glucose , Office 114 (Normal) :03 MRSA/SAID SCREEN Comments: [facility] [address] [place], [address] MRSA+SAID SCRN See Note (Normal) Comments: MRSA/SAID SCRNS. AUREUS S. aureus NegativeMRSA MRSA Negative :13 CBC W/Diff, Automated Comments: Test performed at:[facility] [address] [place] [address] Absolute Lymph 1.57 {X10_3/ul} (Normal) [...] :13 Comprehensive Metabolic Profil Comments: Test performed at:[facility] [address] [place] [address] GAP 4 (Abnormal) Range: 5-15 [...] 70-110 :13 Lipid Profile Comments: Test performed at:[facility] [address] [place], [place] [address] VLDL 35 mg/dL (Normal) Range: 5-40 LDL [...] :13 Microalb:Creat Ratio,Random UR Comments: Test performed at:[facility] [address]fcmp[address] [place], [place] [address] MALB:CREAT 5.0 {mg/g_CRE} (Normal) MICROALBUMIN,UR 5.2 mg/L (Normal) UR CREAT 89.50 mg/dL (Normal) :13 Thyroid Stim Hormone (TSH) Comments: Test performed at:[facility] [address] [place] [address] TSH 0.97 {uIU/mL} (Normal) Range: 0.358-3.74 :13 Urinalysis, Routine (Dipstick) Comments: How was Urine Obtained? CLEAN CATCHTest performed at:[facility] [address] [place] [address] LEUK ESTERASE Negative /ul (Normal) [...] COLOR Yellow (Normal) :35 HgA1C , Office (85095) HgA1C , Office 5.7 % (Normal) Range: 4.6 - 7.1 :35 Blood Glucose , Office (68536) Blood Glucose , Office 111 (Normal) :40 Miscellaneous Lab Procedure Comments: Comments: DRUG SCREEN [id number]) Ordered: DRUG SCREEN [id number] performed at:[facility] [address] [place] [address] ; [facility] Comments: [id number] 6+OXYCODONE-BUND (ng/mL)DRUG RESULT SCREEN CUTOFF____ Amphetamines NEGAT LAB (Normal) BARI ng/mL 1000Barbiturates NEGATIVE ng/mL 200Benzodiazepines NEGATIVE ng/mL 200Cannabinoid NEGATIVE ng/mL 20Cocaine (Metab) NEG TEST ATIVE ng/mL 300Opiates NEGATIVE ng/mL 300 Opiates test includes Codeine, Morphine, Hydromorphone, Hydrocodone.Oxycodone/Oxymorphone,Urine NEGATIVE ng/mL 300 Test includes Oxydodone and Oxymorphone. [facility] ORIGINAL REPORT ON FILE IN LAB CONTAINS ADDITIONAL TEST SITE INFORMATIO N. 1-Ijj-444985:40 Urine Drug Screen (VISTA) Comments: Comments: DRUG SCREEN [id number] of Drugs Taken or Suspected? .Test performed at:[facility] [address] [place], [place] [address] THC NEGATIVE (Normal) PCP NEGATIVE (Normal) OPIATES [...] Hydroxy Comments: Has pt arrived? YTest performed at:[facility] [address]ish[address] [place] [address] Vitamin D 25-OH 38.2 ng/mL (Normal) Comments: Vitamin D 25(OH) Status Range Deficiency <20 ng/mL (50nmol/L) Insuffciency 20 - 30 ng/mL (50 - 75 nmol/L) Sufficiency 30 - 100 ng/mL (75 - 250 nmol/L) Toxicity >100 ng/mL (>250 nmol/L) :24 Urinalysis, Routine (Dipstick) Comments: Has pt arrived? YHow was Urine Obtained? CLEAN CATCHTest performed at:[facility] [address]aw[address] [place] [address] LEUK ESTERASE Negative /ul (Normal) [...] pt arrived? YHas pt arrived? YTest performed at:[facility] Ns[address]puc[address] [facility] [place] [address] GAP 5 (Normal) Range: 5-15 [...] pt arrived? YHas pt arrived? YTest performed at:[facility] [address] [place] [address] VLDL 12 mg/dL (Normal) Range: 5-40 [...] UR Comments: Has pt arrived? YTest performed at:[facility] [address]lizadgur6229 [facility] [place] [address] MALB:CREAT 4.2 {mg/g_CRE} (Normal) MICROALBUMIN,UR 5.6 mg/L (Normal) UR CREAT 131.9 mg/dL (Normal) :23 Thyroid Stim Hormone (TSH) Comments: Has pt arrived? YHas pt arrived? YTest performed at:[facility] Eqhalfcnot6543 [facility] [place] [address] TSH 1.09 {uIU/mL} (Normal) Range: 0.358-3.74 :22 CBC W/Diff, Automated Comments: Has pt arrived? YTest performed at:[facility] [address] [place] [address] Absolute Lymph 1.37 {X10_3/ul} (Normal) Range: 0.83-4.51 [...] (Abnormal) Range: 4.4-11.0 :54 HgA1C , Office (90411) HgA1C , Office 5.8 % (Normal) Range: 4.6 - 7.1 :02 Basic Metabolic Profile (BMP) Comments: ADDED BMPTest performed at:[facility] [address] [place], [place] [address] GAP 6 (Normal) Range: 5-15 CO2 27.0 [...] 70-110 :02 Lipid Profile Comments: Test performed at:[facility] Tlfmvjbvnq3461 [facility] [place] [address] VLDL 96 mg/dL (Abnormal) Range: 5-40 [...] Risk :02 Liver Profile Comments: Test performed at:[facility] [address] [place] [address] D BILI 0.10 mg/dL (Normal) Range: [...] using the TPSA assay method for the[facility] chemistry system. Values obtained with differentassay methods [...] UCOL Yellow (Normal) :25 HgA1C , Office (70215) HgA1C , Office 5.8 % (Normal) Range: 4.6 - 7.1 :10 Blood Glucose , Office (26775) Blood Glucose , Office 83 (Normal) :10 HgA1C , Office (06446) HgA1C , Office 5.7 % (Normal) Range: [...] 08/13/10 1143 Sign by: JESS HENDRICKS MD 47-Uti-095213:21 COMPLETE UA BACTERIA 0 SEEN {/hpf} (Normal) [...] NEGATIVE 0.06 - 0.59 AT RISK OF VA > OR = 0.60 SUGGEST VA :52 COMP METABOLIC Comments: Please Note: TROPONIN [...] 0.8-1.3 GLU 94 mg/dL (Normal) Range: 70-110 :21 COMP METABOLIC GAP 10 (Normal) Range: 5-15 [...] 7-18 GLU 98 mg/dL (Normal) Range: 70-110 67-Ikr-43936:21 LIPID Comments: appt 07/24/10 VLDL 33 mg/dL [...] 200-240 mg/dL Borderline >240 mg/dL High Risk 5-Urz-867124:52 KIDNEY Radiology Report See Note (Normal) Comments: [...] 05/15/10 12 44 by Moshe Manuelranscribed on 05/16/10 0731 [...] CHOL 127 mg/dL (Normal) Comments: <200 mg/dL Zipcqawjx443-237 mg/dL Borderline>240 mg/dL High Risk :10 CBCD [...] CHOL 146 mg/dL (Normal) Comments: <200 mg/dL Kbppigbej309-398 mg/dL Borderline>240 mg/dL High Risk TRIG 166 [...] Report See Note (Normal) Comments: Exam Number: [id number] CLINICAL: Fatigue MRI BRAIN WITH AND WITHOUT [...] of remotetrauma. Reported By: HUEY ERAZO M.D. 45-Lsx-212477:19 CHIQUI-D [id number] CHIQUI-DIRECT SeeNote (Normal) Comments: Result: NegativePerformed At: [facility] Oilqub2824 [place], [place] [id number] 11-Xvk-379714:07 B12/FOLATES FOLATES 26.50 ng/mL (Abnormal) Range: 3.1-17.5 VITAMIN B12 1068 pg/mL (Normal) Range: 254-1320 34-Gqs-379159:07 RHEUMATOID FAC < 10 {IU/mL} (Normal) :07 TSH 0.59 {uIU/mL} (Normal) Range: 0.358-3.74 29-Pox-201795:07 C-REACTIVE PROT 3.09 mg/L (Abnormal) Range: 0.0-3.0 [...] 6.4-8.2 GLU 75 mg/dL (Normal) Range: 70-110 12-Qqt-404496:28 ESR SED RATE 6 mm/h (Normal) Range: 0-20 54-Vlo-863400:28 CBCD BASO% 0.5 % (Normal) Range: 0-1 [...] 4.6-6.2 WBC 9.4 K/mm3 (Normal) Range: 4.4-11.0 5-Nll-173067:18 CULTURE, THROAT See Note (Normal) Comments: Normal throat susanne isolated. No beta-hemolyticstreptococcus isolated. 14-Apr-20098:48 Rapid Strep Test, Office (94504) Rapid Strep Test, Office Negative (Normal) 2-Xyq-970133:59 CTA NECK W/WO CONTRAST Radiology Report See Note (Normal) Comments: Exam Number: [id number] HISTORYCarotid stenosis. Abnormal carotid artery ultrasound. CT [...] K 4.5 mmol/L Range: 3.5-5.1 0:00 (Normal) 69-Icw-070177:19 BMP BUN 35 mg/dL (Abnormal) Range: 7-18 [...] 254-1320 :43 FECAL OCCULT- Tubes sent home (52570) FECAL OCCULT HGB ASSAY, QUAL, 1-3 SIMULTANEOU neg (Normal) :12 Rapid Flu (03635 x 2) Comments: done BC INFLUENZA IMMUNOASSY [...] performed using the TPSA method for the[facility] chemistry system.Values obtained with different assay methods [...] GLU 2 HR GLU GTT-2 HOUR from 918:H43431W. Range: 70-120 :05 GLU GTT-1 HOUR 183 mg/dL (Abnormal) Comments: 2HR GTT GLU 1 HR GLU GTT-1 HOUR from 918:M91801P. Range: 120-170 :31 GLU GTT-30 min. 170 mg/dL (Normal) Comments: 2HR GTT GLU 1/2 HR GLU GTT-30 min. from 918:F05317I. Range: 110-170 :00 D BILI 0.09 mg/dL [...] Comments: 2HR GTT FASTING GLU GTT-FASTING from 0919:E43947F. Range: 70-110 Comments: GLUCOSE TOLERANCE TEST Reference [...] was performed using the TPSA method for the[employer] chemistry system.Values obtained with different assay methods [...] disease Coronary artery disease, non-occlusive : Reviewed Prize Fighter Letter Indication: Coronary artery disease, non-occlusive BMI 40.0-44.9, adult : Eprescribed prescriptions (G8553) Indication: BMI 40.0-44.9, adult Impaired fasting glucose : Follow up in 4 months Indication: Impaired fasting glucose Coronary artery disease, non-occlusive : Reviewed Prize Fighter Letter Indication: Coronary artery disease, non-occlusive Hypertension [...] controlled Coronary artery disease, non-occlusive : Reviewed Prize Fighter Letter Indication: Coronary artery disease, non-occlusive Hypertension [...] glucose Coronary artery disease, non-occlusive : Reviewed Prize Fighter Letter Indication: Coronary artery disease, non-occlusive 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 Indication: Hypertension with heart disease Impaired fasting glucose : *Diabetes Education Indication: Impaired fasting glucose Nonsmoker : Eprescribed prescriptions (G8553) Indication: Nonsmoker Depression, acute : Reviewed Prize Fighter Letter Indication: Depression, acute Other chronic pain : Reviewed Lab Indication: Other chronic pain Depression, acute : Follow up in 2 weeks Indication: Depression, acute Accidental fall, initial encounter : Follow up in 1 week Indication: Accidental fall, initial encounter Depression : Reviewed Lab Indication: Depression Depression : Reviewed Diagnostic Tests Indication: Depression Depression : Reviewed Prize Fighter Letter Indication: Depression Cellulitis : Eprescribed prescriptions (G8553) Indication: Cellulitis Cellulitis : Follow up in 1 week Indication: Cellulitis Nonsmoker : Eprescribed prescriptions (G8553) Indication: Nonsmoker Hypertension with heart disease : Reviewed Lab Indication: Hypertension with heart disease Impaired fasting glucose : Follow up in 4 months Indication: Impaired fasting glucose Hypertension with heart disease : Reviewed Prize Fighter Letter Indication: Hypertension with heart disease Hypertension [...] artery disease Coronary artery disease : Reviewed Prize Fighter Letter Indication: Coronary artery disease Carotid stenosis : Reviewed Prize Fighter Letter Indication: Carotid stenosis Hypercholesterolemia : Cholesterol [...] artery disease Coronary artery disease : Reviewed Prize Fighter Letter: sees Dr Maria Indication: Coronary artery disease Impaired fasting glucose : Eprescribed prescriptions (G8553) Indication: Impaired fasting glucose Hypercholesterolemia : Cholesterol mgmt Indication: Hypercholesterolemia Coronary artery disease : Continue Current Prescription(s) Indication: Coronary artery disease Coronary artery disease : Reviewed Prize Fighter Letter Indication: Coronary artery disease 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 Indication: Hypertension with heart disease Hypertension with heart disease : Follow up in 4 months Indication: Hypertension with heart disease Impaired fasting glucose : Eprescribed prescriptions (G8553) Indication: Impaired fasting glucose Coronary artery disease : Reviewed Prize Fighter Letter Indication: Coronary artery disease Impaired fasting [...] Indication: Hypercholesterolemia Coronary artery disease : Reviewed Prize Fighter Letter Indication: Coronary artery disease Impaired fasting [...] artery disease Planned Observations HgA1C , Office (52261)Indication: Impaired fasting glucose On: 33-Esz-382920:57 Request TSH (04764)Indication: Atrial fibrillation, controlled On: :30 Request URINALYSIS, W/ MICRO (35605)Indication: Hypertension with heart disease On: :30 Request MICROALBUMIN: CREATININE RATIO (96285) AND (98246)Indication: Hypertension with heart disease On: :30 Request METABOLIC PANEL, COMPREHENSIVE (60192)Indication: Hypertension with heart disease On: :30 Request LIPID PANEL (60884)Indication: Coronary artery disease, non-occlusive On: :30 Request CBC W/AUTO DIFF WBC (52832)Indication: Hypertension with heart disease On: :29 Request VITAMIN B-12 (CYANOCOBALAMIN) (15641)Indication: Vitamin B12 deficiency On: :29 Request CALCIFIDIOL (51049) VIT D 25Indication: Vitamin D deficiency On: :29 Request VITAMIN B-12 (CYANOCOBALAMIN) (19074)Indication: Vitamin B12 deficiency On: :36 Request CALCIFIDIOL (53316) VIT D 25Indication: Vitamin D deficiency On: :35 Request TSH (40860)Indication: Impaired fasting glucose On: :34 Request URINALYSIS, W/ MICRO (53516)Indication: Hypertension with heart disease On: :34 Request MICROALBUMIN: CREATININE RATIO (76059) AND (85827)Indication: Hypertension with heart disease On: :34 Request METABOLIC PANEL, COMPREHENSIVE (80144)Indication: Hypertension with heart disease On: :34 Request LIPID PANEL (61844)Indication: Hypercholesterolemia On: :34 Request CBC W/AUTO DIFF WBC (50141)Indication: Hypertension with heart disease On: :34 Request RIBOFLAVIN (B-2) (06956)Indication: Drug intoxication with delirium On: 24-Itm-511168:09 Request LIPID PANEL (80458)Indication: Hypercholesterolemia On: :35 Request VITAMIN B-12 (CYANOCOBALAMIN) (60426)Indication: Vitamin B12 deficiency On: :28 Request CALCIFIDIOL (49047) VIT D 25Indication: Vitamin D deficiency On: :27 Request MAGNESIUM (98828)Indication: Hypermagnesemia On: :27 Request FECAL OCCULT- Tubes sent home (34265)Indication: Encounter for screening for malignant neoplasm of colon (Renamed from Special screening for malignant neoplasms, colon) On: :03 Request PSA (PROSTATE SPECIFIC ANTIGEN) (V76.44)Indication: Encounter for screening for malignant neoplasm of prostate (Renamed from Screening for prostate cancer) On: 5-Qsw-397971:03 Request TSH (30181)Indication: Impaired fasting glucose On: :22 Request URINALYSIS, W/ MICRO (09963)Indication: Impaired fasting glucose On: :22 Request MICROALBUMIN: CREATININE RATIO (18422) AND (35087)Indication: Impaired fasting glucose On: :22 Request METABOLIC PANEL, COMPREHENSIVE (20979)Indication: Impaired fasting glucose On: :21 Request LIPID PANEL (63012)Indication: Hypercholesterolemia On: : Request CBC W/AUTO DIFF WBC (44303)Indication: Impaired fasting glucose On: : Request CALCIFIDIOL (44282) VIT D 25Indication: Vitamin D deficiency On: : Request HEPATIC FUNCTION PANEL (79875)Indication: Elevated liver enzymes On: 04-Lxn-558744:29 Request METABOLIC PANEL, COMPREHENSIVE (97547)Indication: Dizzy On: :54 Request CBC W/AUTO DIFF WBC (73034)Indication: Dizzy On: :54 Request FECAL OCCULT- Tubes sent home (15879)Indication: Melena On: :52 Request CALCIFIDIOL (40783) VIT D 25Indication: Dysthymic On: 95-Iqy-868696:52 Request TSH (73348)Indication: Hypercholesterolemia On: 16-Yzb-483620:52 Request URINALYSIS, W/ MICRO (54815)Indication: Hypertension with heart disease On: 66-Wnc-233225:52 Request MICROALBUMIN: CREATININE RATIO (51417) AND (65060)Indication: Hypertension with heart disease On: 23-Vej-872508:52 Request METABOLIC PANEL, COMPREHENSIVE (41139)Indication: Hypertension with heart disease On: 78-Fkf-698582:52 Request LIPID PANEL (27984)Indication: Hypercholesterolemia On: 07-Gwx-031475:52 Request CBC W/AUTO DIFF WBC (10727)Indication: Hypertension with heart disease On: 45-Hpq-972715:51 Request TSH (49605)Indication: Impaired fasting glucose On: :45 Request URINALYSIS, W/ MICRO (72233)Indication: Impaired fasting glucose On: :45 Request MICROALBUMIN: CREATININE RATIO (05084) AND (45798)Indication: Impaired fasting glucose On: :45 Request METABOLIC PANEL, COMPREHENSIVE (12515)Indication: Impaired fasting glucose On: :45 Request LIPID PANEL (74254)Indication: Impaired fasting glucose On: :45 Request CBC W/AUTO DIFF WBC (82682)Indication: Impaired fasting glucose On: :45 Request CALCIFIDIOL (10076) VIT D 25Indication: Impaired fasting glucose On: :55 Request LIPID PANEL (67426)Indication: Hypertension On: :50 Request TSH (39766)Indication: Impaired fasting glucose On: :50 Request MICROALBUMIN: CREATININE RATIO (94726) AND (45037)Indication: Hypertension On: :50 Request METABOLIC PANEL, COMPREHENSIVE (86349)Indication: Hypertension On: :50 Request MICROALBUMIN: CREATININE RATIO (53277) AND (55557)Indication: Hypertension On: :38 Request URINALYSIS (26985)Indication: Hypertension On: :36 Request CBC WITH MANUAL DIFF (80884)Indication: Hypertension On: :36 Request Metabolic Panel, Comprehensive (00870)Indication: Hypertension On: 73-Uos-99458:36 Request Lipid Panel (95573)Indication: Hypercholesterolemia On: :36 Request MICROALBUMIN: CREATININE RATIO (10602) AND (98030)Indication: Hypertension On: 22-Bgp-052233:57 Request URINALYSIS (02183)Indication: Hypertension On: 31-Mhz-961849:57 Request CBC WITH MANUAL DIFF (74854)Indication: Hypertension On: 19-Jak-609941:56 Request Metabolic Panel, Comprehensive (10650)Indication: Hypertension On: 32-Hbs-034671:56 Request CALCIFEDIOL (37936)Indication: Hypertension On: 45-Gew-659620:56 Request TSH (83844)Indication: Hypertension On: 64-Vrj-061535:56 Request Lipid Panel (76270)Indication: Hypercholesterolemia On: 71-Pww-728443:56 Request Lipid Panel (57899)Indication: Hypercholesterolemia On: 83-Ciu-342950:13 Request URINALYSIS, W/ MICRO (87339)Indication: Hypertension On: 2-Swn-934203:02 Request MICROALBUMIN: CREATININE RATIO (70138) AND (18767)Indication: Impaired fasting glucose On: 1-Aaz-462391:02 Request CBC W/AUTO DIFF WBC (29046)Indication: Impaired fasting glucose On: 8-Qlg-247150:02 Request METABOLIC PANEL, COMPREHENSIVE (61868)Indication: Impaired fasting glucose On: 7-Mxr-379795: Request PSA (PROSTATE SPECIFIC ANTIGEN) (V76.44)Indication: Benign prostatic hyperplasia with urinary obstruction and other lower urinary tract symptoms On: 15-Jan-20149:55 Request CREATINE KINASE TOTAL ([id number])Indication: SOB (shortness of breath) on exertion On: :32 Request Comments: stat D-Dimer ([id number])Indication: SOB (shortness of breath) on exertion On: :32 Request CBC (Auto) ([id number])Indication: SOB (shortness of breath) on exertion On: :32 Request Troponin I ([id number])Indication: SOB (shortness of breath) on exertion On: :31 Request CPK MB FRACTION ([id number])Indication: SOB (shortness of breath) on exertion On: 79-Uyo-789727:31 Request MICROALBUMIN: CREATININE RATIO ([id number]) AND ([id number])Indication: Impaired fasting glucose On: :10 Request CBC WITH MANUAL DIFF ([id number])Indication: Hypertension On: :04 Request LIPID PANEL ([id number])Indication: Hypercholesterolemia On: :04 Request METABOLIC PANEL, COMPREHENSIVE ([id number])Indication: Hypertension On: :04 Request CBC WITH MANUAL DIFF ([id number])Indication: Hypertension On: :28 Request URINALYSIS, W/ MICRO ([id number])Indication: Hypertension On: :28 Request TSH ([id number])Indication: Dysthymic On: : Request PSA (PROSTATE SPECIFIC ANTIGEN) (V76.44)Indication: Benign prostatic hyperplasia with urinary obstruction and other lower urinary tract symptoms On: :27 Request LIPID PANEL ([id number])Indication: Hypercholesterolemia On: : Request METABOLIC PANEL, COMPREHENSIVE (87076)Indication: Hypertension On: :27 Request ASSAY, TROPONIN, QUANTITATIVE (aka Troponin I) ([id number])Indication: SOB (shortness of breath) on exertion On: :08 Request Comments: stat D-Dimer ([id number])Indication: SOB (shortness of breath) on exertion On: :08 Request Comments: stat URINALYSIS, W/ MICRO (80595)Indication: Edema On: : Request TSH ([id number])Indication: Edema On: :06 Request METABOLIC PANEL, COMPREHENSIVE ([id number])Indication: Edema On: : Request CBC WITH MANUAL DIFF ([id number])Indication: Edema On: : Request URINE BERTHA CULTURE-SUKHWINDER COL COUNT ([id number])Indication: PYELONEPHRITIS, ACUTE NOS On: :25 Request LIPID PANEL ([id number])Indication: Hypercholesterolemia On: :12 Request METABOLIC PANEL, COMPREHENSIVE ([id number])Indication: Hypertension On: :12 Request PSA (PROSTATE SPECIFIC ANTIGEN) (V76.44)Indication: Benign prostatic hyperplasia with urinary obstruction and other lower urinary tract symptoms On: :33 Request URINALYSIS, W/ MICRO ([id number])Indication: Hypertension On: :33 Request CBC WITH MANUAL DIFF ([id number])Indication: Hypertension On: :33 Request METABOLIC PANEL, COMPREHENSIVE ([id number])Indication: Hypertension On: :32 Request LIPID PANEL ([id number])Indication: Hypercholesterolemia On: :32 Request CBC WITH MANUAL DIFF ([id number])Indication: Hypertension On: :14 Request METABOLIC PANEL, COMPREHENSIVE ([id number])Indication: Hypertension On: 9-Osg-460506:14 Request LIPID PANEL ([id number])Indication: Hypercholesterolemia On: :13 Request CBC, PLATELETS & AUT DIFF ([id number])Indication: Anemia, unspecified On: 6-Hij-268576:38 Request Comments: Repeat 3wks beginning june Renal function Panel ([id number])Indication: Abnormal blood chemistry On: 6-Nbs-810149:35 Request Comments: repeat 3 wks Beginning of June Folate ([id number])Indication: Fatigue On: :23 Request VITAMIN B-12 (CYANOCOBALAMIN) ([id number])Indication: Fatigue On: :23 Request TSH ([id number])Indication: Fatigue On: :23 Request SED RATE ERYTHROCYTE ([id number])Indication: Fatigue On: :23 Request RHEUMATOID FACTOR-QUANT ([id number])Indication: Fatigue On: :23 Request METABOLIC PANEL, COMPREHENSIVE ([id number])Indication: Fatigue On: :23 Request C-REACTIVE PROTEIN ([id number])Indication: Fatigue On: : Request CBC (AUTO) ([id number])Indication: Fatigue On: : Request CHIQUI (ANTINUCLEAR ANTIBODY) ([id number])Indication: Fatigue On: : Request BERTHA CULTURE-OTHER ([id number])Indication: Pharyngitis, acute On: :48 Request TSH ([id number])Indication: Dysthymic On: :48 Request PSA (PROSTATE SPECIFIC ANTIGEN) (V76.44)Indication: Benign prostatic hyperplasia with urinary obstruction and other lower urinary tract symptoms On: :48 Request METABOLIC PANEL, COMPREHENSIVE ([id number])Indication: Hypertension On: :46 Request LIPID PANEL ([id number])Indication: Hypercholesterolemia On: :46 Request CBC WITH MANUAL DIFF ([id number])Indication: Anemia, unspecified On: :46 Request Metabolic Panel, Basic ([id number])Indication: Edema On: :44 Request FOLIC ACID SERUM ([id number])Indication: Anemia, unspecified On: :43 Request VITAMIN B-12 (CYANOCOBALAMIN) ([id number])Indication: Anemia, unspecified On: :43 Request RETICULOCYTE COUNT MANUL ([id number])Indication: Anemia, unspecified On: :43 Request LDH (LD) (LACTATE DEHYDROGENASE) ([id number])Indication: Anemia, unspecified On: :43 Request IRON BINDING CAPACITY (TIBC) ([id number])Indication: Anemia, unspecified On: :43 Request FERRITIN ([id number])Indication: Anemia, unspecified On: :43 Request IRON ([id number])Indication: Anemia, unspecified On: :43 Request CBC WITH MANUAL DIFF ([id number])Indication: Edema On: :40 Request LIPID PANEL ([id number])Indication: Hypercholesterolemia On: :36 Request URINALYSIS W/O MICRO ([id number])Indication: Hypertension On: :36 Request TSH ([id number])Indication: Hypertension On: :36 Request METABOLIC PANEL, COMPREHENSIVE ([id number])Indication: Hypertension On: :36 Request CBC WITH MANUAL DIFF ([id number])Indication: Hypertension On: :36 Request PSA (PROSTATE SPECIFIC ANTIGEN) (V76.44)Indication: Benign prostatic hyperplasia with urinary obstruction and other lower urinary tract symptoms On: :36 Request METABOLIC PANEL, COMPREHENSIVE ([id number])Indication: Hypertension On: :27 Request LIPID PANEL ([id number])Indication: Hypercholesterolemia On: :26 Request HEPATIC FUNCTION PANEL ([id number])Indication: Hypercholesterolemia On: :26 Request HEPATIC FUNCTION PANEL ([id number])Indication: Hypercholesterolemia On: :52 Request LIPID PANEL ([id number])Indication: Hypercholesterolemia On: :52 Request PSA (PROSTATE SPECIFIC ANTIGEN) (V76.44)Indication: Benign prostatic hyperplasia with urinary obstruction and other lower urinary tract symptoms On: 72-Ffz-78650:52 Request URINALYSIS W/O MICRO ([id number])Indication: Hypertension On: 86-Qcz-339178:23 Request TSH ([id number])Indication: Hypertension On: 12-Xvg-873200:23 Request METABOLIC PANEL, COMPREHENSIVE ([id number])Indication: Hypertension On: 46-Sjb-574947:23 Request CBC WITH MANUAL DIFF ([id number])Indication: Hypertension On: 75-Mck-632308:22 Request LIPID PANEL ([id number])Indication: Hypercholesterolemia On: 99-Mlq-508107:17 Request HEPATIC FUNCTION PANEL ([id number])Indication: Hypercholesterolemia On: 34-Omk-732128:17 Request METABOLIC PANEL, COMPREHENSIVE ([id number])Indication: Hypertension On: 74-Uhj-404911:50 Request VITAMIN B-12 (CYANOCOBALAMIN) ([id number])Indication: Fatigue On: 86-Mql-74423:03 Request METABOLIC PANEL, COMPREHENSIVE ([id number])Indication: Fatigue On: 97-Dza-30326:03 Request GLUCOSE TOLERANCE TEST (GTT) 2 hour ([id number])Indication: Fatigue On: :02 Request LIPID PANEL ([id number])Indication: Hypercholesterolemia On: 56-Ipv-52464:10 Request Comments: please send to Dr Shore PSA (PROSTATE SPECIFIC ANTIGEN) (05001)Indication: Benign prostatic hyperplasia with urinary obstruction and other lower urinary tract symptoms On: :10 Request MICROALBUMIN URINE QUANT ([id number])Indication: Hypertension On: :10 Request URINALYSIS W/O MICRO ([id number])Indication: Hypertension On: :10 Request TSH ([id number])Indication: Dysthymic On: 19-Vje-28702:10 Request METABOLIC PANEL, COMPREHENSIVE (13731)Indication: Hypertension On: :10 Request CBC WITH MANUAL DIFF ([id number])Indication: Hypertension On: :10 Request CBC WITH MANUAL DIFF ([id number])Indication: Hypertension On: 28-Pgb-06545:53 Request METABOLIC PANEL, COMPREHENSIVE ([id number])Indication: Hypertension On: 94-Tra-80737:53 Request URINALYSIS W/O MICRO ([id number])Indication: Hypertension On: :53 Request TSH ([id number])Indication: Hypertension On: 75-Mvc-74300:53 Request LIPID PANEL ([id number])Indication: Hypercholesterolemia On: 39-Uwf-16504:53 Request Planned Encounters Medical; 4 Month FU - On: 01-Mar-2018 8:00 [facility] Jazz Rodas DO, DO, Kathleen Planned Procedures Flu Vaccine (Quadrivalent) On: 14-Feb-2018 Intent 53821Sf: Jazz Rodas DO Comments: Lot #[id number]/2019Site-L dltd, IMDose prefilled syringegiven by: Cammy reviewed and ABN signed Jazz Rodas DO ELECTROCARDIOGRAM, COMPLETE On: 27-Oct-2017 Intent (ECG) (69675)By: Irvin LAURA, Comments: nsr no acute chg Jazz Ballard DO PNEUM VAC ADLT/IMUMNOSPR, On: 17-Dec-2016 Intent SBC/INTRM (02577)By: Irvin Comments: Lot:[id number]:05/19/18Dose:0.5mgRoute:imSite:l armGiven By:YVETTE signed Jazz LAURA DO, Kathleen PFXO-MK-IFJV BEHAVIORAL On: 17-Dec-2016 Intent COUNSELING FOR OBESITY, 15 MINUTES (G0447)By: Jazz Rodas DO, DO, Kathleen INTENSIVE BEHAVIORAL THERAPY On: 17-Dec-2016 Intent TO REDUCE CARDIOVASCULAR DISEASE RISK, INDIVIDUAL, TKAF-UC-BOUM, ANNUAL, 15 MINUTES (G0446)By: Jazz Rodas DO, DO, Kathleen Flu Vaccine (Quadrivalent) On: 10-Dec-2016 Intent 52469Co: Jazz Rodas DO Comments: lot: [id number]: 09/26/17ite/route: L jessika, IMamt: 0.5mlVIS and ABN signed when applicableChelsayana, Jazz Brooks DO ELECTROCARDIOGRAM, COMPLETE On: 04-Aug-2016 Intent (ECG) (74541)By: Irvin LAURA, Comments: sinus yoko - no acute chg Jazz Ballard DO Venous Doppler - LeftBy: Avis On: 23-Apr-2016 Intent Raya PERERA Comments: L lower extremity US DOPPLER VEIN OF EXTREMITY On: 21-Apr-2016 Intent ([id number])By: Raya Albarran MD Comments: US doppler right [...] wound centre and Raya Albarran US GROIN (02157)By: Avis PERERA, On: 13-Apr-2016 Intent Raya Comments: US soft tissue of left hip, Rule out abcess. Flu Vaccine (Quadrivalent) On: 12-Dec-2015 Intent 45173Uy: Jazz Rodas DO Comments: lot [id number] exp 10/08/16- R arm Jazz Rodas DO INTENSIVE BEHAVIORAL THERAPY On: 12-Dec-2015 Intent TO REDUCE CARDIOVASCULAR DISEASE RISK, INDIVIDUAL, HXBW-VG-OKVL, ANNUAL, 15 MINUTES (G0446)By: Jazz Rodas DO, DO, Kathleen FLKY-SG-HLOB BEHAVIORAL On: 12-Dec-2015 Intent COUNSELING FOR OBESITY, 15 MINUTES (G0447)By: Jazz Rodas DO, DO, Kathleen B 12 Injection, 1000 mcg On: 26-Nov-2015 Intent (J3420)By: Jazz Rodas DO Comments: B12lot:[id number]:18site:lt deltroute:IMdose:1mlD.PRECIOUS Gallo DO, Kathleen B 12 Injection, 1000 mcg On: 22-Oct-2015 Intent (J3420)By: Jazz Rodas DO Comments: lot: [id number]: 18site/route: L del/IMamt: 1mLVIS signed when applicableDUONG Desai DO, Kathleen CT - Brain/Head (Without On: 25-Sep-2015 Intent Contrast)By: Jazz Rodas DO, DO, Kathleen US DOPPLER CAROTID BILATERAL On: 25-Sep-2015 Intent ([id number])By: Jazz Rodas DO, DO, Kathleen Cartoid DopplerBy: Irvin LAURA, On: 30-Jul-2015 Intent Jazz Ballard DO Flu Vaccine (Quadrivalent) On: 15-Jan-2015 Intent 86624Ny: Jazz Rodas DO Comments: Lot:[id number]:10/09/15Dose:0.5mLRoute:IMSite:L DltdGiven By:YVETTE signed Jazz Rodas DO EKG (75449)By: Irvin LAURA, On: 13-Jun-2014 Intent Jazz Ballard DO NHMF-TC-CEVX BEHAVIORAL On: 06-Mar-2014 Intent COUNSELING FOR OBESITY, 15 MINUTES (G0447)By: Jazz Rodas DO, DO, Kathleen Prevnar 13 (78769)By: Irvin On: 06-Mar-2014 Jazz Schreiber DO, DO, Comments: lot [id number] 06/2015location L armroute imgiven by - Madisyn and/or MAMI signed Jazz Cartoid DopplerBy: Blanco LAURA, On: 15-Jan-2014 Intent Rupinder A FLU VAC, SPLIT, >3 YEARS, On: 15-Jan-2014 Intent INTRAMUSC (00620)By: Blanco LAURA, Comments: Lot #:[id number] date:12/2015Amount given:0.5mlRoute: IMSite given: left deltoidGiven by: PRECIOUS Serna Rupinder A ADMINISTRATION OF INFLUENZA On: 15-Jan-2014 Intent VIRUS VACCINE (G0008)By: Rupinder Encarnacion DO FLU VAC, SPLIT, >3 YEARS, On: 13-Feb-2013 Intent INTRAMUSC (47422)By: Blanco LAURA, Comments: Lot:[id number]:Dose:0.5mLRoute:IMSite:L DltdGiven By:YVETTE signed Rupinder A IMMUNIZ ADMNIN, 1 VAC, On: 13-Feb-2013 Intent SNGL/COMBO (60234)By: Perla Ruano IMMUNIZ ADMNIN, 1 VAC, On: 08-Feb-2012 Intent SNGL/COMBO (29707)By: Chanel Alamo CNP FLU VAC, SPLIT, >3 YEARS, On: 08-Feb-2012 Intent INTRAMUSC (55808)By: Chanel Alamo CNP DANA (Ankle Brachial Index) On: 14-Jul-2011 Intent (17936)By: Nieves Masters Comments: at DF desk Spirometry (71402)By: Kael On: 01-Jul-2011 Intent Lois PERERA Aerosol Treatment (14570)By: On: 01-Jul-2011 Intent Lois Scruggs MD EKG (07935)By: Kael PERERA, On: 01-Jul-2011 Intent Lois Roberts DANA (Ankle Brachial Index) On: 21-May-2011 Intent ([id number])By: Rupinder Encarnacion DO Cartoid DopplerBy: Blanco LAURA, On: 21-May-2011 Intent Rupinder A Comments: august VAC, SPLIT, >3 YEARS, On: 10-Feb-2011 Intent INTRAMUSC (89694)By: Erik UGARTE, Comments: Lot #: [id number] date: 09/20Amount given: 0.5 mlRoute: IMSite given: left deltoidGiven by: TORITO Gonzales IMMUNIZ ADMNIN, 1 VAC, On: 10-Feb-2011 Intent SNGL/COMBO (91952)By: Marlys Valencia RN Eprescribed prescriptions On: 24-Nov-2010 Intent (G8553)By: Rupinder Encarnacion DO Echo CompleteBy: Paz NAIDU, On: 04-Aug-2010 Intent Mera Pulse Oximetry (28547)By: Blanco On: 24-Jul-2010 Intent Rupinder LAURA A Comments: 96 Bio Z (57221)By: Blanco LAURA, On: 24-Jul-2010 Intent Rupinder A Comments: good cardiac output and svr- thoracic fluid ok EKG (56363)By: Rupinder Encarnacion DO On: 24-Jul-2010 Intent A Comments: ekg showed normal sinus rhythym, normal axis, no acute st/t wave changes Echo CompleteBy: Blanco LAURA, On: 24-Jul-2010 Intent Rupinder A DANA (Ankle Brachial Index) On: 24-Jul-2010 Intent ([id number])By: Rupinder Encarnacion DO Cartoid DopplerBy: Blanco LAURA, On: 24-Jul-2010 Intent Rupinder A Radiology - Chest- PA and On: 24-Jul-2010 Intent LatBy: Lavelle Encarnacion DOa A Radiology - Chest- PA and On: 09-Jul-2010 Intent LatBy: Jazz Rodas DO, DO, Kathleen Ultrasound - RenalBy: Irvin On: 14-May-2010 Intent Jazz LAURA DO, Kathleen Cartoid DopplerBy: Blanco LAURA, On: 25-Mar-2010 Intent Rupinder A DANA (Ankle Brachial Index) On: 25-Mar-2010 Intent ([id number])By: Rupinder Encarnacion DO IMMUNIZ ADMNIN, 1 VAC, On: 15-Jan-2010 Intent SNGL/COMBO (35503)By: Erik UGARTE, Comments: Lot #: [id number] date: mount given: 0.5 mlRoute: IMSite given: left deltoidGiven by: Valeriano Green RN Marlys FLU VACCINE NO PRESERV 3 & > On: 15-Jan-2010 Intent ([id number])By: Marlys Valencia RN Cartoid DopplerBy: Blanco LAURA, On: 26-Nov-2009 Intent Rupinder A Comments: sept TDAP VACCINE >7 IM (09329)By: On: 22-Sep-2009 Intent Mera Mullen LPN Comments: Lot #[id number]-4/24/12Site-left deltoidgiven by:NATHALIA Holter Monitor 24 hrsBy: Walker On: 21-Apr-2009 Intent Chanel LOU ELECTROCARDIOGRAM, COMPLETE On: 21-Apr-2009 Intent (ECG) (42719)By: Chanel Alamo CNP FLU VAC, SPLIT, >3 YEARS, On: 07-Jan-2009 Intent INTRAMUSC (40384)By: Harpreet, Comments: Lot #:[id number] date:mount given:0.5mlRoute: IMSite given:left deltGiven by: PRECIOUS Serna IMMUNIZ ADMNIN, 1 VAC, On: 07-Jan-2009 Intent SNGL/COMBO (95235)By: Emili Mullins DANA (Ankle Brachial Index) On: 25-Nov-2008 Intent (77518)By: Uma Altamirano Comments: done>Wf. pt aware. normal findings on both sides. DANA (Ankle Brachial Index) On: 01-Oct-2008 Intent (52112)By: Rupinder Encarnacion DO Cartoid DopplerBy: Blanco LAURA, On: 01-Oct-2008 Intent Rupinder A Comments: sept Pulse Oximetry (60705)By: On: 03-Jul-2008 Intent Chanel Alamo CNP Comments: done BC Aerosol Treatment (68993)By: On: 03-Jul-2008 Intent Ciesa COGNOS ANALYST, Lori Comments: done BC FLU VAC, SPLIT, >3 YEARS, On: 15-Mar-2008 Intent INTRAMUSC (22888)By: Alicia Allen ADMINISTRATION OF INFLUENZA On: 15-Mar-2008 Intent VIRUS VACCINE (G0008)By: Comments: inj given no complicationslot:[id number]:10/08/08site left deltoddose:0.5mlkatAlicia Easton EKG (70932)By: Rupinder Encarnacion DO On: 27-Dec-2007 Intent A Comments: ekg- with sinus with lvh - left axisd deviation Cartoid DopplerBy: Blanco LAURA, On: 27-Dec-2007 Intent Rupinder A DANA (Ankle Brachial Index) On: 23-Aug-2007 Intent (03212)By: Xiao Busby DANA (Ankle Brachial Index) On: 08-Aug-2007 Intent (55045)By: Rupinder Encarnacion DO DANA (Ankle Brachial Index) On: 02-May-2007 Intent (08868)By: Rupinder Encarnacion DO Flu Vaccine, Split IM On: 24-Jan-2007 Intent (65194)By: Rupinder Encarnacion DO Comments: given o.5cc im in right deltoid lot#[id number] exp.10/09/07-aw Pneumovax (53901)By: Blanco LAURA, On: 24-Jan-2007 Intent Rupinder A Comments: given 0.5cc in right deltoid lot#[id number] exp. 02/20/08-aw Overnight Pulse Ox(58156)By: On: 21-Dec-2006 Intent Xiao Busby Echo CompleteBy: Blanco LAURA, On: 06-Dec-2006 Intent Rupinder A Overnight Pulse OX (66687)By: On: 06-Dec-2006 Intent Rupinder Encarnacion DO EKG (51304)By: Narciso NAIDU, On: 23-Jun-2006 Intent Peg Comments: needed to be done for a preop which is scheduled the end of the month with dr. romero DANA (Ankle Brachial Index) On: 15-Jun-2006 Intent (04725)By: Milady Jay LPN DANA (Ankle Brachial Index) On: 01-Jun-2006 Intent (36462)By: Rupinder Encarnacion DO Comments: see Mila- these needs precerted as the insurance didnt pay last time- I discussed with her DANA (Ankle Brachial Index) On: 01-Mar-2006 Intent (22536)By: Rupinder Encarnacion DO Planned Medications Vitamin B-12 [...] The patient does have durable power of commonwealth attorney and living will. The patient has noticed dropping activities and interests, having problems with memory than others, la ck of energy and thinking most people are better off than them. 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 care are card grader and radiation control worker.Encounter Diagnosis: BMI 38.0-38.9,adult, Nonsmoker, Annual Medicare Physical [...] patient does not have durable power of commonwealth attorney. The patient has noticed lack of energy and thinking most people are better off than them. 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 care are card grader and other:.Encounter Diagnosis: Annual Medicare Phyiscal WITHOUT [...] in bathroom. The patient has completed the [employer] [place] preventative measures: PSA testing (2013) and colonoscopy (2009). The patient does have durable power of commonwealth attorney and living will. The patient has noticed thinking most people are better off than t hem. 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 care are card grader (DR. Maria) and other: (Pain Management- Dr. [...] a day for 2 weeks- and the card grader didnt feel he needed to increase meds - just saw them in sept and heart doing well-he sees thuan for pain manaagement and hegives him lety kimble for back pain working well- had shingle [...] h e has been taking pills but cathy forgot today- his mood has been good [...] back. Pt is seeing Dr. Blake in only for this and currently getting injections and [...] els overwhelmed- he is willing to retry cybrialta again and see how he doesEncounter Diagnosis: [...] : (110's/60's) and weight :. Note for Follo w up for chronic medical issues: he [...] tired with work but does feel sleepy- hi End: 24-Jan-2007 11:15 s mood is ok [...]
--- OUTSIDE RECORDS SUMMARY | 2018-07-01 19:07 | XMS RPT_ITS | Continuity of Care Document ---
:1950 Author Organization [facility] Address [address] [facility] [address] [place] [address] Phone Care Team Providers Name Role Phone Jazz Rodas DO Unavailable [facility] Unavailable [facility], [facility] Unavailable Long VP AD SALES WEST, Sharonda L Unavailable Unavailable Gravius, Laila Unavailable Unavailable Slarb VP AD SALES WEST, Elle Unavailable Unavailable Messenger, VP AD SALES WEST Darlene Unavailable Unavailable Manchak, Giselle Unavailable Unavailable [...] Quantity: 6 {Syrup} Refills: 0 Ordered:21-Apr-2009 Pierre NAIUD Milady Start : 03-Jul-2008 Inactive HYDROCODONE-ACETAMINOPHEN, 5-500MG [...] : 29-Sep-2015 End : 26-Nov-2015 Inactive ZOSTAVAX, 52039FVA/0.65ML (Subcutaneous Solution Reconstituted) 1 For Solution dose [...] status type (R41.82, 780.97) Comments: originally from [facility] this time from [place] Status: Resolved [...] Duplex Ultrasound Result: Comments: See Note; NOTES: [facility] Cardiovascular Services [address] [place] [address] Carotid Duplex Ultrasound 11/09/17 1247 MR#: [id number] Acct: [id number] Name: LETHA MASON Rep #: [id number] : 1950 67 From: Kaiser Awan MD Attending Dr: Babatunde Maria MD Status: REG CLI Ordering Dr: Babatunde Maria MD Date: 11/09/17 Location: [facility] Sex: M C Admitted: R t. Velocities/BP [...] the left vertebral artery. Procedure Carotid Duplex 09407. The study was technically difficult. Exam performed [...] Dictated: 11/09/17 1247 Date Transcribed: 11/09/17 1516 Content Development Manager: Signed 27-Oct-2017 Cardiology Visit Report Result: Comments: See Note; NOTES: [facility] [address] [place], [place] [address]e. 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 transplanted heart: [place] heart Essential hypertension I10 Hypertension type: essential hypertension Atrial fibrillation and flutter I48. 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 transplanted heart: [place] heart Essential hypertension I10 Hypertension type: essentia l hypertension Atrial fibrillation and flutter I48.91; I48.92 Occlusion and stenosis of left carotid artery I65.22 Pure hypercholesterolemia E78.00; E78.0 Hyperlipidemia type: pure hypercholesterolemia 10/27/17 0935 <Electronically signed by Babatunde Maria MD> Date Babatunde Maria MD Cosigner Signature: Date (if applicable) CC: Jazz Rodas DO 22-Oct-2017 Spine Lumbar (Routine) Result: Comments: See Note; NOTES: [facility] Imaging Services [address] [place] [address] Spine Lumbar (Routine) MR#: [id number] Acct: [id number] Name: LETHA DEUTSCH Rep #: [id number] : 1950 M 66 From: Roberto Lunsford MD PCP: Jazz Rodas DO Status: REG CLI Study: Spine Lumbar (Routine) Date of Exam: 10/22/17 Exam# [id number] Ordering Dr: Brooklynn Ryan FLAT SHEET MAKER-C STUDY: MRI L UMBAR SPINE WITHOUT CONTRAST [...] , CC: Brooklynn Ryan; Jazz Rodas DO Content Development Manager: Signed 14-Apr-2017 Cardiology Visit Report Result: Comments: See Note; NOTES: [facility] 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 (ANGIOGRAPHER) 1018 <Electronically signed by Hyun TOMPKINS> Date Hyun TOMPKINS 04/14/17 1020<Electronically signed by Babatunde Maria MD> Cosigner Signature: Date (if applicable) Babatunde Maria MD CC: Jazz Rodas DO 23-Jun-2016 Brain/Head without Contrast Result: Comments: See Note; NOTES: [facility] Imaging Services [address] [place] [address] Verdana 4d Brain/Head without Contrast MR#: [id number] Acct: [id number] Name: [facility] E Rep #: [id number] : 1950 M 65 From: Chago Loera MD PCP: Jazz Rodas DO Status: [facility] ER Study: Brain/Head without Contrast Date of Exam: 06/23/16 Exam# [id number] Ordering Dr: Isiah Gloria MD STUDY: CT [...] 06/23 at 20:16 EDT , Service support [phone], N.B. : The above information has been verbally conveyed by Chago Loera MD to dr gloria, Referring Physician, on 20:19:35 (ET). CC: Emili Gloria MD; Jazz Rodas DO Content Development Manager: Signed 23-Jun-2016 Chest 1 View Result: Comments: See Note; NOTES: [facility] Imaging Services [address] [place] [address] Verdana 4d Chest 1 View MR#: [id number] Acct: [id number] Name: LETHA DEUTSCH Rep #: [id number] : 1950 M 65 From: Chago Loera MD PCP: Jazz Rodas DO Status: REG ER Study: Chest 1 View Date of Exam: 06/23/16 Exam# [id number] Ordering Dr: Emili Gloria MD STUDY: X-RAY [...] MD at 20:28 EDT , Service support [phone], CC: Emili Gloria MD; Jazz Rodas DO Content Development Manager: Signed 09-Jun-2016 Pulmonary Function Report Comp Result: Comments: See Note; NOTES: [facility] Pulmonary Services/Neurology [address] [place] [address] Pulmonary Function Test (Comp) MR#: [id number] Acct: [id number] Name: LETHA DEUTSCH Rep #: [id number] : 1950 65 From: Rodolfo Palacios DO [...] is recommended. DO Karen Gurrola C: T: [facility] JOB: [id number] 06/09/16 1357 &# 60;Electronically signed by Rodolfo Palacios DO> Date Rodolfo Palacios DO CC: Rodolfo Palacios D.O.; Jazz Rodas DO Date Dictated: 06/09/16829 Date Transcribed: 06/09/16829 Content Development Manager: Signed 07-Jun-2016 Chest PA and Lateral Result: Comments: See Note; NOTES: [facility] Imaging Services [address] [place] [address] Verdana 4d Chest PA and Lateral MR#: [id number] Acct: [id number] Name: MARITOLETHAJada Loredo p #: [id number] : 1950 65 From: Real Miller MD PCP: Jazz Rodas DO Status: [facility] CLI Study: Chest PA and Lateral Date of Exam: 06/07/16 Exam# [id number] Ordering Dr: Hyun Iglesias STUDY: X-RAY CHEST [...] MD at 16:15 EST , Service support [phone], CC: Jazz Rodas DO; Hyun Iglesias Content Development Manager: Signed 01-Jun-2016 Carotid Duplex Ultrasound Result: Comments: See Note; NOTES: [facility] Cardiovascular Services [address] [place] [address] Carotid Duplex Ultrasound 06/01/16 1000 MR#: [id number] Acct: [id number] Name: LETHA MASON Rep #: [id number] : 1950 65 From: Cassi Rousseau MD [...] the left vertebral artery. Procedure Carotid Duplex 99325. Technically difficult due to body habitus. Exam [...] Dictated: 06/01/16 1000 Date Transcribed: 06/01/16 1434 Content Development Manager: Signed 01-Jun-2016 Echocardiogram Complete Result: Comments: See Note; NOTES: [facility] Cardiovascular Services [address] [place] [address] Echo Complete 06/01/16 0909 MR#: [id number] Acct: [id number] Name: LETHA DEUTSCH Rep #: [id number] : 1950 65 From: Babatunde Maria MD Attending Dr: Rodolfo Palacios D.O. Status: REG CLI Ordering Dr: Rodolfo Palacios DO Date: 06/01/16 Location: [facility] Sex: M C Admitted: Reason For Andrew [...] Date Dictated: 06/01/1609 Date Transcribed: 06/01/16 125 Content Development Manager: Signed 26-May-2016 6 Minute Walk Test Result: Comments: See Note; NOTES: [facility] Pulmonary Services/Neurology [address] [place] [address] MR#: [id number] Acct: [id number] Name: LETHA DEUTSCH Rep #: [id number] : 1950 65 From: Rodolfo Palacios DO Referring Dr: Rodolfo Palacios D.O. Date: Ordering Dr: Mateo: Jessica Jones Location: PSN PSN 6 Minute Walk Test - 6 Minute Walk Test 6 Minute Walk Test: 6 Minute Walk Test PSN :6-Minute Walk Test Start: 05/25/16 12:52 Freq: Status: Active Document 05/25/16 12:52 LORENA (Rec: 05/25/16 12:54 LORENA [id number]) 6 Minute Walk Test Date Performed 05/25/16 [...] CC: Date Dictated: 05/26/1647 Date Transcribed: 05/26/16946 Content Development Manager: Rodolfo Palacios DO Signed 21-Apr-2016 Venous Duplex Lower Extremity Result: Comments: See Note; NOTES: [facility] Cardiovascular Services [address] [place] [address] Venous Duplex US, Unilateral 04/21/16 1619 MR#: [id number] Acct: [id number] Name: LETHA ARTHUR Rep #: [id number] : 1950 65 From: Kwaku Ahmadi MD [...] Date Dictated: 04/21/16 1619 Date Transcribed: 04/21/161826 Content Development Manager: Signed 16-Apr-2016 Pelvis WITH IV Contrast Result: Comments: See Note; NOTES: [facility] Imaging Services [address] [place] [address] Verdana 4d Pelvis WITH IV Contrast MR#: [id number] Acct: [id number] Name: LETHA DEUTSCH Rep #: [id number] : 1950 M 65 From: Gurpreet De Anda DO PCP: Jazz Rodas DO Status: REG CLI Study: Pelvis WITH IV Contrast Date of Exam: 04/16/16 Exam# [id number] Ordering Dr: Jazz Rodas STUDY: CT PELVIS [...] De Anda DO at 9:03 EST Tel [phone], Service support [phone], CC: Ivory Rodas DO Content Development Manager: Signed 14-Apr-2016 Other BP Soft Tissue Result: Comments: See Note; NOTES: [facility] Imaging Services [address] [place] [address] Verdana 4d Other BP Soft Tissue MR#: [id number] Acct: [id number] Name: LETHA DEUTSCH Gertrude p #: [id number] : 1950 M 65 From: Gurpreet De Anda DO PCP: Jazz Rodas DO Status: REG CLI Study: Other BP Soft Tissue Date of Exam: 04/14/16 Exam# [id number] Ordering Dr: Raya Albarran STUDY: GALINDO PERFICIAL [...] cysts versus lymph nodes. Electronically Signed: Gurpreet NeolaDO 27/04/03 at 12:37 EST Tel [phone], Service support [phone], CC: Jazz Rodas DO; Raya Albarran Content Development Manager: Signed 18-Feb-2016 12 Lead Electrocardiogram Result: Comments: See Note; NOTES: [facility] Cardiovascular Services [address] [place] [address] 12 Lead EKG 02/16/16 1238 MR#: [id number] Acct: [id number] Name: LETHA DEUTSCH Rep #: [id number] : 1950 65 From: Johnie Montaño MD Attending Dr: Babatunde Maria MD Status: DEP [facility] Ordering Dr: Babatunde Maria MD Date: 02/16/16 Location: [facility] Sex: M C Admitted: Test [...] ECG Confirmed by SCOTT PERERA, JOHNIE ([id number]), scientific publications editor BECK DOSS ([id number]) on 02/18/2016 2:53:30 PM Referred By: BABATUNDE [facility] Confirmed By:JOHNIE MONTAÑO MD 02/18/16 1453 Date Johnie Montaño MD CC: Jazz Rodas DO Date Dictated: 02/16/16 1238 Date Transcribed: 02/16/16 1238 Content Development Manager: Signed 17-Feb-2016 Operative Report Result: Comments: See Note; NOTES: [facility] Medical Records Department [address] [place] [address] Operative Report MR#: [id number] Acct: [id number] Name: LETHA DEUTSCH Rep #: [id number] : 1950 65 From: Rodolfo Palacios DO [...] issues including a triple bypass surgery at [facility] in 1996 followed by an ablation [...] C: Referring Provider . T: RACHAEL JOB: [id number] 02/17/16 1243 <Electronically signed by Rodolfo Palacios DO> Date ____ Rodolfo Palacios DO Cosigner Signature (If Indicated): Date CC: Rodolfo Palacios D.O.; Jazz Puentes te Dictated: 02/16/161258 Date Transcribed: 02/16/161258 Content Development Manager: Signed 17-Feb-2016 Operative Report Result: Comments: See Note; NOTES: [facility] Medical Records Department [address] [place] [address] Operative Report MR#: [id number] Acct: [id number] Name: LETHA DEUTSCH Rep #: [id number] : 1950 65 From: Babatunde Maria MD PCP: Jazz Rodas DO Status: [facility] DATE OF SERVICE: PROCEDURE: DC cardioversion. INDICATIONS: [...] Babatunde Maria MD T: RACHAEL JOB : [id number] 02/17/16 0833 <Electronically signed by Babatunde Maria MD> Date Baabtunde Maria MD Cosigner Signature (If Indicated): Date __ CC: Babatunde Maria MD; Jazz Rodas DO Date Dictated: 02/16/161325 Date Transcribed: 02/16/161325 Content Development Manager: Signed 01-Jan-2016 Operative Report Result: Comments: See Note; NOTES: [facility] Medical Records Department [address] [place] [address] Operative Report MR#: [id number] Acct: [id number] Name: LETHA DEUTSCH Rep #: [id number] : 1950 65 From: Babatunde Maria MD PCP: Jazz Rodas DO Status: REG [facility] DATE OF SERVICE: PROCEDURE: DC cardioversion. INDICATION: [...] followup. Babatunde Maria MD T: NTS JOB: [id number] 01/01/16 0813 <Electronically signed by Babatunde Maria MD> Date Babatunde Maria MD Cosigner Signature (If Indicated): Date CC: Babatunde Maria MD; Jazz Irvin LAURA Date Dictated: 12/29/15 1143 Date Transcribed: 12/29/15 1143 Content Development Manager: Signed 31-Dec-2015 Consultation Result: Comments: See Note; NOTES: [facility] Medical Records Department [address] [place] [address] Consultation MR#: [id number] Acct: [id number] Name: LETHA DEUTSCH Rep #: [id number] : 1950 65 From: Zia Aldrich MD PCP: Jazz Rodas DO Status: REG [facility] DATE OF SERVICE: 12/29/2015 BRIEF HISTORY OF PRESENT ILLNESS: The patient is a 65-year-old male, cu rrently under the care of Dr. Maria, who presents for elective KAYLEE and cardioversion secondary to atrial fibrillation. The patient does have a long history of atrial fibrillation and cardiac issues incl uding a triple bypass at [facility] in 1996, atrial ablation in 2011 [...] Babatunde Maria MD Primary Care Physician T: [facility] JOB: [id number] 12/31/15 0622 <Electronically signed by Zia Aldrich MD> Date [facility] Signature (If Indicated): Date CC: Zia Aldrich MD; Babatunde Maria MD; Jazz Rodas DO Date Dictated: 12/29/151436 Date Transcri bed: 12/29/151436 Content Development Manager: Signed 29-Dec-2015 Echo Transesophageal (KAYLEE) Result: Comments: See Note; NOTES: [facility] Cardiovascular Services [address] [place] [address] Echo Transesophageal (KAYLEE) 12/29/15 1045 MR#: [id number] Acct: [id number] Name: LETHA DARBY Rep #: [id number] : 1950 65 From: Babatunde Maria MD Attending Dr: Babatunde Maria MD Status: REG [facility] Ordering Dr: Babatunde Maria MD Date: 12/29/15 Location: [facility] Sex: M C Admitted: Lissette fonseca For Study: A. fib Medication KAYLEE probe passed without difficulty. Cetacaine Topical [place] given X3 orally. Versed 2 mg given [...] Dictated: 12/29/15 1045 Date Transcribed: 12/29/15 1237 Content Development Manager: Signed 20-Nov-2015 OT D/C Summary Result: Comments: See Note; NOTES: [facility] Occupational Therapy [facility] [address] [place], [place] [address] Fax REHABILITATION SERVICES ДМИТРИЙ GARDINER SUMMARY MR#: [id number] Acct: [id number] Name: LETHA DEUTSCH Rep #: [id number] : 1950 65 From: Linda Blunt Referring [...] of their discharge status. - Objective Objective/Function: Corncob Pipe Supervisor: R: 95# L: 80#. Lat Pinch: R:26# [...] the izquierdo to regaining sensation and strength. Corncob Pipe Supervisor: R: 95# L: 80#. Lat Pinch: R:26# L:10#. Tripod Pinch: R:18# L:8#. Gram Abduction: R:375; L: 200. Adduction: R: 800; L:600. Monofilaments: L Th:3.84. L IF:3.22. L MF:3.22. L RF:3.22/4.08. L LF:4.08. In mariano nd manipulation (palm to fingers and fingers to palm) appear normal. If there are questions or concerns regarding this patient's occupational therapy, please fell free to call me at [phone]. Thank you for the referral of this patient. Sincerely, Linda Blunt <Electronically signed by Linda Blunt > 11/20/15 1518 CC: Jazz Rodas DO; Jorge Luis Kerr MD MG Signed 20-Nov-2015 OT General Evaluation Result: Comments: See Note; NOTES: [facility] Occupational Therapy [facility] [address] [place] [address]. [address] [place] [address] Fax REHABILITATION SERVICES IN ITIAL EVALUATION MR#: [id number] Acct: [id number] Name: MARITOLETHA Ruperto Rep #: [id number] : 1950 65 From: Linda Blunt Referring Dr.: Jorge Luis Kerr MD Status: REG RCR Insurance: MEDICARE PA RT A B Eval Date: [employer] Patient's Visit Information LETHA DEUTSCH is a [...] trans position on August 12, 2015 at [place]. Pt. experienced sudden numbness and falling asleep" of L elbow and hand before the surgery. Pt. is retired and worked at [employer] for 34 years. 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 Pt. is R-handed [...] Elbow: B 5/5 Wrist: R:5/5; L: 4+/5 Corncob Pipe Supervisor: R:85# L:80# Lateral Pinch: R:22# L:12# Tripod [...] to be FAXED BACK to us at [phone] for Med icare purposes. Please let me [...] W/WO Contrast Result: Comments: See Note; NOTES: [facility] Imaging Services [address] [place] [address] Verdana 4d CTA Head W/WO Contrast MR#: [id number] Acct: [id number] Name: LETHA MASON Rep #: [id number] : 1950 M 65 From: Cecilio Castillo PCP: Jazz Rodas DO Status: REG CLI Study: CTA Head W/WO Contrast Date of Exam: 11/06/15 Exam# [id number] Ordering Dr: Linnea Johnson FLAT SHEET MAKERMary Kay STUDY: CTA OF THE BRAIN REASON [...] There is no demonstrated aneurysm of the algaaciq of [place]. There is no demonstrated abnormality of the visualized brain. 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 Mi ld atherosclerotic plaque of the bilateral intracranial carotid arteries. Electronically Signed: Cecilio Castillo MD at 11:58 EDT Tel , Service support [phone], Fax CC: Linnea Hall; Jazz Rodas DO Content Development Manager: Signed 06-Nov-2015 CTA Head W/WO Contrast Result: Comments: See Note; NOTES: [facility] Imaging Services [address] [place] [address] Verdana 4d CTA Head W/WO Contrast MR#: [id number] Acct: [id number] Name: RUBY LIEBERMANLETHA E Rep #: [id number] : 1950 M 65 From: Cecilio Castillo PCP: Jazz Rodas DO Status: REG CLI Study: CTA Head W/WO Contrast Date of Exam: 11/06/15 Exam# [id number] Ordering Dr: Linnea Johnson FLAT SHEET MAKER-C STUDY: CTA OF THE BRAIN REASON FOR [...] There is no demonstrated aneurysm of the algaaciq of [place]. There is no demonstrated abnormality of the visualized brain. CC: Linnea Rodas DO Content Development Manager: Signed 06-Nov-2015 CTA Neck W/WO Contrast Result: Comments: See Note; NOTES: [facility] Imaging Services [address] [place] [address] Verdana 4d CTA Neck W/WO Contrast MR#: [id number] Acct: [id number] Name: LETHA MASON Rep #: [id number] : 1950 M 65 From: Cecilio Castillo PCP: Jazz Rodas DO Status: REG CLI Study: CTA Neck W/WO Contrast Date of Exam: 11/06/15 Exam# [id number] Ordering Dr: Linnea Johnson FLAT SHEET MAKER-C STUDY: CTA NECK WITH CONTRAST REASON FOR [...] at 11:53 EDT Tel , Service support [phone], CC: Linnea Hall; Jazz Rodas DO Content Development Manager: Signed 06-Nov-2015 CTA Neck W/WO Contrast Result: Comments: See Note; NOTES: [facility] Imaging Services [address] [place] [address] Verdana 4d CTA Neck W/WO Contrast MR#: [id number] Acct: [id number] Name: LETHA MASON Rep #: [id number] : 1950 M 65 From: Cecilio Castillo PCP: Jazz Rodas DO Status: REG CLI Study: CTA Neck W/WO Contrast Date of Exam: 11/06/15 Exam# [id number] Ordering Dr: Linnea Johnson FLAT SHEET MAKER-C STUDY: CTA NECK WITH CONTRAST REASON FOR [...] artery. CC: Linnea Hall; Jazz Rodas DO Content Development Manager: Signed 30-Sep-2015 Brain W/WO Contrast Result: Comments: See Note; NOTES: [facility] Imaging Services [address] [place] [address] Verda 4d Brain W/WO Contrast MR#: [id number] Acct: [id number] Name: DALIA JHALETHA E Rep #: [id number] : 1950 M 64 From: Cierra Doss MD PCP: Jazz Rodas DO Status: REG CLI Study: Brain W/WO Contrast Date of Exam: 09/30/15 Exam# [id number] Ordering Dr: Prakash Mccarty MD STUDY: MRI [...] MD at 13:08 EDT , Service support [phone], CC: Isaac Mccarty MD; Jazz Rodas DO Content Development Manager: Signed 28-Sep-2015 Carotid Duplex Ultrasound Result: Comments: See Note; NOTES: [facility] Cardiovascular Services [address] [place] [address] Carotid Duplex Ultrasound 09/25/15 1411 MR#: [id number] Acct: [id number] Name: LETHA DEUTSCH Rep #: [id number] : 1950 64 From: Rian Levi MD [...] the left vertebral artery. Procedure Carotid Duplex 04758. Techncially difficult due to body habitus. Exam performed in department. Interpretation Summary Mild (<50%) stenosis right extracranial internal carotid. Mild (<50%) stenosis l eft extracranial internal carotid. Flow within the vertebral arteries is antegrade bilaterally. Ordering Physician: Jazz Rodas Performed By: Karon Harris RVT 09/28/152157 Date Rian Levi MD CC: Jazz Rodas DO Date Dictated: 09/25/15 1411 Date Transcribed: 09/28/152157 Content Development Manager: Signed 25-Sep-2015 Brain/Head without Contrast Result: Comments: See Note; NOTES: [facility] Imaging Services [address] [place] [address] Verdana 4d Brain/Head without Contrast MR#: [id number] Acct: [id number] Name: LETHA DEUTSCH Rep #: [id number] : 1950 M 64 From: Juli Klein MD PCP: Jazz Rodas DO Status: REG CLI Study: Brain/Head without Contrast Date of Exam: 09/25/15 Exam# [id number] Ordering Dr: Jazz Rodas DO STUDY: CT [...] at 14:19 EDT Tel cf, Service support [phone], CC: Jazz Rodas DO Content Development Manager: Signed 17-Sep-2015 Operative Report Result: Comments: See Note; NOTES: [facility] Medical Records Department [address] [place] [address] Operative Report MR#: [id number] Acct: [id number] Name: [facility] E Rep #: [id number] : 1950 64 From: Babatunde Maria MD [...] office. Babatunde Maria MD T: NTS JOB: [id number] 09/17/15804 <Electronically sig catrina by Babatunde Maria MD> Date Babatunde Maria MD Cosigner Signature (If Indicated): Date CC: Babatunde Maria MD; Jazz Rodas DO Date Dictated: 09/16/15 1100 Date Transcribed: 09/16/15 1100 Content Development Manager: Signed 17-Sep-2015 Operative Report Result: Comments: See Note; NOTES: [facility] Medical Records Department [address] [place] [address] Operative Report MR#: [id number] Acct: [id number] Name: [facility] E Rep #: [id number] : 1950 64 From: Zia Aldrich MD [...] MD Primary Care Physicia n . T: [facility] JOB: [id number] 09/17/15 0608 <Electronically signed by Zia Aldrich MD> Date Zia Aldrich MD Cosigner Signature (If I ndicated): Date CC: Zia Aldrich MD; Jazz Rodas DO Date Dictated: 09/16/15 1115 Date Transcribed: 09/16/15 111 Content Development Manager: Signed 09-Sep-2015 Chest PA and Lateral Result: Comments: See Note; NOTES: [facility] Imaging Services [address] [place] [address] Verdana 4d Chest PA and Lateral MR#: [id number] Acct: [id number] Name: LETHA CHAUDHARI Rep #: [id number] : 1950 M 64 From: Osvaldo Manuel MD PCP: Jazz Rodas DO Status: REG CLI Study: Chest PA and Lateral Date of Exam: 09/09/15 Exam# [id number] Ordering Dr: Hyun Iglesias PA STUDY: X-RAY [...] Osvaldo Manuel MD at 10:04 EDT Tel [phone], Service support [phone], RAD/Chest PA and Lateral IMPRESSION: Hyperin flation. No acute abnormality is seen. Electronically Signed: Osvaldo Manuel MD at 10:04 EDT Tel [phone], Service support [phone], CC: Jazz reynolds DO; Hyun Iglesias Content Development Manager: Signed 07-Aug-2015 ELECTROCARDIOGRAM, COMPLETE (ECG) (61492) Comments: afib controlled rate 97 - Result: [MEASUREMENTS ANALYSIS] Date of Test: 08/07/2015 08:26:34; Heart Rate: 97; VT Interval: 0; QRS: 104; QT Interval: 344; Corrected QT Interval (QTc): 408; P Wave Roland: 1; QRS Wave Roland: -31; T Wave Roland: 1; Blood Pressure: 138/78 [ECG DIAGNOSTIC STATEMENTS] Date of Test: 08/07/2015 08:26:34; Summary: Atrial flutter-fibrillation - Nonspecific T-abnormality. ABNORMAL 30-Jul-2015 ELECTROCARDIOGRAM, COMPLETE (ECG) (01185) Comments: afib rate 109 Result: [MEASUREMENTS ANALYSIS] Date of Test: 07/30/2015 17:00:28; Heart Rate: 109; VT Interval: 0; QRS: 108; QT Interval: 338; Corrected QT Interval (QTc): 423; P Wave Roland: 1; QRS Wave Roland: -30; T Wave Roland: 42; Blood Pressure: 122/78 [ECG DIAGNOSTIC STATEMENTS] Date of Test: 07/30/2015 17:00:28; Summary: Atrial fibrillation -Nonspecific QRS widening. -Nonspecific ST depression -Nondiagnostic. ABNORMAL 24-Jul-2015 NCS and/or EMG Patient Result: Comments: See Note; NOTES: [facility] Pulmonary Services/Neurology [address] [place] [address] NCS and/or EMG Patient MR#: [id number] Acct: [id number] Name: LETHA ZUNIGA Rep #: [id number] : 1950 64 From: Mary Doan Referring Dr: Jorge Luis Kerr MD Status: REG CLI Ordering Dr: Jorge Luis Kerr MD Date: 07/23/15 Location: [facility] Sex: M C DATE OF SERVICE: 07/23/2015 [...] referral. Mary Doan MD T: NTS JOB: [id number] 07/24/152201 <Elect ronically signed by Mary Doan > Date Mary Doan CC: Jazz Rodas DO; MARY DOAN; Jorge Luis Kerr MD Date Dictated: 0938 Date Transcribed: 07/23/1538 Content Development Manager: Signed 09-Jul-2015 Echocardiogram Complete Result: Comments: See Note; NOTES: [facility] Cardiovascular Services [address] [place] [address] Echo Complete 07/09/15 0858 MR#: [id number] Acct: [id number] Name: LETHA DARBY Rep #: [id number] : 1950 64 From: Babatunde Maria MD Attending Dr: Babatunde Maria MD Status: REG CLI Ordering Dr: Babatunde Maria MD Date: 07/09/15 Location: [facility] Sex: M C Admitted: Reason For Study: [...] Sonal Santa RDCS 07/09/15 1258 Date Babatunde aMria MD CC: Jazz Rodas DO Date Dictated: 07/09/15 0858 Date Transcribed: 07/09/15 1258 Content Development Manager: Signed 09-Jul-2015 Nuclear Stress Test - Chemical Result: Comments: See Note; NOTES: [facility] Imaging Services [address] [place] [address] Jeysonlois 4d Nuclear Stress Test - Chemical MR#: [id number] Acct: [id number] N alexsander: LETHA DEUTSCH Rep #: [id number] : 1950 64 From: Babatunde Maria MD [...] fraction. Babatunde Maria MD T: NTS JOB: [id number] 07/10/15 1139 <Electronically signed by Babatunde Maria MD> Date Babatunde Maria MD CC: Jazz Rodas DO Date Dictated: 07/09/15 1110 Date Transcribed: 07/09/15 111 Content Development Manager: Signed 02-May-2015 Lumbar Spine 2 or 3 Views Result: Comments: See Note; NOTES: [facility] Imaging Services [address] [place] [address] Veronica 4d Lumbar Spine 2 or 3 Views MR#: [id number] Acct: [id number] Name: LETHA ARTHUR Rep #: [id number] : 1950 M 64 From: Osvaldo Manuel MD PCP: Jazz Rodas DO Status: REG CLI Study: Lumbar Spine 2 or 3 Views Date of Exam: 05/02/15 Exam# [id number] Ord ering Dr: Sherif Christensen MD STUDY: [...] Osvaldo Manuel MD at 15:13 EST Tel [phone], Service support [phone], 0056 RAD/Lumbar Spine 2 or 3 Views IMPRESSION: Grade 1 anterolisthesis of L5 on S1 with no significant translation on the flexion and extension maneuvers. Multilevel spondylosis and disc space narrowing. Electronically Signed: Osvaldo olivo MD at 15:13 EST Tel [phone], Service support [phone], CC: Sherif Christensen MD; Jazz Rodas DO Content Development Manager: Signed 02-May-2015 Spine Lumbar without Contrast Result: Comments: See Note; NOTES: [facility] Imaging Services [address] [place] [address] Verdana 4d Spine Lumbar without Contrast MR#: [id number] Acct: [id number] Wisam e: LETHA DEUTSCH Rep #: [id number] : 1950 M 64 From: Scott Kelly MD PCP: Jazz Rodas DO Status: REG CLI Study: Spine Lumbar without Contrast Date of Exam: 05/02/15 Exam# [id number] Ordering Dr: Sherif Christensen MD STUDY: CT [...] Scott Kelly MD at 8:31 EST Tel [phone], Ser vice support [phone], CC: Sherif Christensen MD; Jazz Rodas DO Content Development Manager: Signed 28-Jan-2015 History and Physical Exam Result: Comments: See Note; NOTES: [facility] Medical Records Department [address] [place] [address] History and Physical 01/24/15 2255 MR#: [id number] Acct: [id number] Name: LETHA DEUTSCH Rep #: [id number] : 1950 64 From: Joe Sinha PA-C PCP: Jazz Rodas DO Status: PRE IN Location: [facility] DATE OF SERVICE: PRIMARY CARE PHYSICIAN: Dr. Natalie Rodas. PROCEDURE TYPE: Reverse total shoulder replacement, right shoulder. PROCEDURE DATE: February 04, 2015. ATTENDING PHYSICIAN: Dr. Jorge Luis Kerr. HISTORY OF PRESENT ILLNESS: This is a 64-year-old male who first presented to [facility] on December 03, 2014. The patient states [...] patient has undergone cardiac clearance by his security dispatcher, Dr. Maria. The patient has a history of coronary artery disease with bypass surgery in 1996. The patient has also had heart ablation in 2010 as well as stents in his left and right iliac arteries. The patient un derwent a heart catheterization in 2011. The patient was given surgical clearance by his security dispatcher. The patient denies any chest pain, shortness [...] in the medical record. Please see attached [facility] medical history sheet. PAST MEDICAL PROBLEMS: [...] DIAGNOSTIC STUDIES: 1. X-rays were obtained at [facility] on December 03, 2014, of the right shoulder including 3 views AP, ___ _ and axillary view, show no acute fracture, dislocation, or other bony abnormalities, ____ lesion inferior aspect of the glenoid. 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 2. MRI o f the right shoulder was obtained at [facility] on ____ 2014, shows a full-thickness tear [...] nt has undergone cardiac clearance from his security dispatcher. Joe Sinha PA-C T: NTS JOB: [id number] 01/28/15 0716 <Electronically signed by Joe Sinha [...] Lumbar (Routine) Result: Comments: See Note; NOTES: [facility] Imaging Services [address] [place] [address] MRI Report MR#: [id number] Acct: [id number] Name: LETHA DEUTSCH Rep #: [id number] : 1950 63 From: Jack Martínez MD PCP: Jazz Rodas DO Status: REG CLI Study: Spine Lumbar (Routine) Date of Exam: 06/13/14 Exam# [id number] Ordering Dr: Mihir Martínez MD STUDY: MR [...] at 19:32 EST Tel , Service support [phone], CC: Mihir Martínez MD; Jazz Rodas DO Content Development Manager: Signed 06-Mar-2014 Sleep Study Report Result: Comments: See Note; NOTES: [facility] [address] [place] [address] Polysomnography with NCPAP MR#: [id number] Acct: [id number] Name: RADHA DEUTSCH Rep #: [id number] : 1950 63 From: Gennaro Larsen MD PCP: Rupinder Encarnacion DO Status: REG CLI Ordering Dr.: Gennaro Larsen MD Date: 02/28/14 Sex: M C REFERRING PHYSICIAN: Dr. Larsen. SLEEP HISTORY: The patient is a 63-year-old gentleman with a calculated body mass index of 36.3 and an [place] Sleepiness Scale score of 8/24. The patient [...] version). Please note that a reference to [facility] AHI in this report is consistent with the current Hypopnea definition according to Medicare Criteria and an AAS AHI reference is consistent with the current Hypopnea definition according to the AASM criteria. PROCEDURE: The stud y was attended continuously by a network technician. Monitored parameters included left and right [...] Duplex Ultrasound Result: Comments: See Note; NOTES: [facility] Cardiovascular Services [address] [facility] [place] [address] Carotid Duplex Ultrasound 01/30/14 0854 MR#: [id number] Acct: [id number] Wisam e: LETHA DEUTSCH Rep #: [id number] : 1950 63 From: Rian Levi MD Attending Dr: Rupinder Encarnacion DO Status: REG CLI Ordering Dr: Rupinder Encarnacion DO Date: 01/30/14 Location: [facility] Sex: M C Admitte d: Rt. Velocities/BP [...] the left vertebral artery. Procedure Carotid Duplex 89398. Exam performed in department. Interpretation Summary Mild (<50%) stenosis right extracranial internal carotid. Mild (<50%) stenosis left extracranial internal carotid. Flow within the vertebral arteries is antegrade bilaterally. Ordering Physician: Rupinder Encarnacion Performed By: Karon Harris RVT 01/30/141121 Date Rian Levi MD CC: Rupinder Encarnacion DO Date Dictated: 01/30/14 0854 Date Transcribed: 01/30/141121 Content Development Manager: Signed Immunization Name Dates Details Influenza (3 years and up) on: 24-Jan-2007 Comments: given o.5cc im in right deltoid lot#[id number] exp.10/09/07-aw Influenza (3 years and up) on: 15-Mar-2008 Influenza (3 years and up) on: 07-Jan-2009 Comments: Lot #:[id number] date:mount given:0.5mlRoute: IMSite given:left deltGiven by: PRECIOUS Serna Pneumococcal (2 years and up) on: 24-Jan-2007 Comments: given 0.5cc in right deltoid lot#[id number] exp. 02/20/08-aw Family History Unknown Family Member Name Dates Details Father Comments: aty 52, Diabetes and MS Status: Active Mother Comments: CAD, PVD Status: Active Social History Name Dates Details Alcohol Use Comments: Rare beer Status: Active Caffeine Use Status: Active Most Recent Primary Occupation Comments: retired 2013 Status: Active Tobacco Use: Former smoker. Comments: Remotely quit tobacco use- 11/24/10 Status: Active Smoking Status Name Dates Details Former smoker Vital Signs Date Test Result Details 75-Hqj-648905:55 Temperature 97.3 f Comments: Method: Temporal Pulse [...] Area Calculated 2.14 m2 :59 Comments: hearing [facility] and had a glaucoma test done [...] Surface Area Calculated 2.12 m2 :29 Comments: [facility] and hada glaucoma test doneHearing [...] kg/m2 Body Surface Area Calculated 2.11 m2 39-Yih-850611:50 Comments: Eye [facility] 2014hearing wnl [...] Value Details :57 Blood Glucose , Office (55010) Blood Glucose , Office 123 (Normal) :06 Lipid Profile Comments: [facility] [address] [place], [place], [address] VLDL Test not performed mg/dL (Normal) Range: [...] mg/dL High Risk :06 Liver Profile Comments: [facility] [address] [place], [place], [address] D BILI 0.07 mg/dL (Normal) Range: 0.00-0.30 T BILI 0.30 mg/dL (Normal) Range: 0.20-1.00 ALT 34 U/L (Normal) Range: 16-61 ALK P 58 U/L (Normal) Range: 45-117 AST 23 U/L (Normal) Range: 15-37 GLOB 3.4 g/dL (Normal) Range: 2.2-4.2 ALB 3.4 g/dL (Normal) Range: 3.2-5.0 T PROT 6.8 g/dL (Normal) Range: 6.4-8.2 :19 CBC W/Diff, Automated Comments: [facility] [address] [place], [address] Absolute Lymph 1.39 {X10_3/ul} (Normal) [...] Range: 4.4-11.0 :19 Comprehensive Metabolic Profil Comments: [facility] [address] [place], [place], [phone] GAP 13 (Normal) Range: 5-15 CO2 29.0 [...] A.D.A. criteria.Please note revised GLUCOSE reference range /02/2018. 01-Qal-54400:19 Lipid Profile Comments: [facility] [address] [place], [place], [address] VLDL Test not performed mg/dL (Normal) Range: [...] High Risk :19 Microalb:Creat Ratio,Random UR Comments: [facility] L[address]cc[address] [facility] [address] [place], [place], [address] MALB:CREAT 15.8 {mg/g_CRE} (Normal) MICROALBUMIN,UR 13.4 mg/L (Normal) UR CREAT 84.70 mg/dL (Normal) :19 Thyroid Stim Hormone (TSH) Comments: [facility] [address] [place], [place], [address] TSH 1.82 {uIU/mL} (Normal) Range: 0.358-3.74 :19 Urinalysis, Complete Comments: How was Urine Obtained? [facility] Jpcguccfnz5044 [facility] [address] [place], [place], [address] MUCUS, URINE 0 SEEN {/hpf} (Normal) BACTERIA [...] :19 Vitamin B12 353 pg/mL (Normal) Comments: [facility] [address] [place], [address] Range: 211-911 :19 Vitamin D,25 Hydroxy Comments: [facility] [address] [place], [id number] Vitamin D 25-OH 24.7 ng/mL (Abnormal) Range: 29.95-100.01 Comments: Vitamin D 25(OH) Status Range Deficiency <20 ng/mL (50nmol/L) Insuffciency 20 - 30 ng/mL (50 - 75 nmol/L) Sufficiency 30 - 100 ng/mL (75 - 250 nmol/L) Toxicity >100 ng/mL (>250 nmol/L) :02 HgA1C , Office (80402) HgA1C , Office 5.4 % (Normal) Range: 4.6 - 7.1 :02 Blood Glucose , Office (62831) Blood Glucose , Office 141 (Normal) :22 Lipid Profile Comments: [facility] [address] [place], [address] VLDL 49 mg/dL (Abnormal) Range: 5-40 LDL [...] mg/dL High Risk :22 Liver Profile Comments: [facility] [address] [place], [phone] D BILI 0.09 mg/dL (Normal) Range: 0.00-0.30 [...] (PROSTATE SPECIFIC Comments: PATIENT NOT FASTINGPERFORMED BY: [facility] [id number] ANTIGEN) (V76.44) Prostate Specific Ag, 0.9 ng/mL (Normal) Range: 0.0-4.0 Serum Comments: Esme ECLIA methodology. .According to the [employer], Serum PSA shoulddecrease and remain [...] of malignant disease. :04 HgA1C , Office (98125) HgA1C , Office 5.6 % (Normal) Range: 4.6 - 7.1 :04 Blood Glucose , Office (83030) Blood Glucose , Office 117 (Normal) :37 CBC W/Diff, Automated Comments: [facility] [address] [place], [address] Absolute Lymph 1.18 {X10_3/ul} (Normal) [...] 4.6-6.2 WBC 5.2 K/mm3 (Normal) Range: 4.4-11.0 83-Oyo-66474:37 Comprehensive Metabolic Profil Comments: [facility] [address] [place], [address] GAP 5 (Normal) Range: 5-15 CO2 32.0 [...] (Normal) Range: 70-110 :37 Lipid Profile Comments: [facility] [address] [place], [place], [address] VLDL 61 mg/dL (Abnormal) Range: 5-40 LDL [...] High Risk :37 Microalb:Creat Ratio,Random UR Comments: [facility] [address] [place], [place], [address] MALB:CREAT Test not performed {mg/g_CRE} (Normal) MICROALBUMIN,UR < 5.0 mg/L (Normal) UR CREAT 105.00 mg/dL (Normal) :37 Thyroid Stim Hormone (TSH) Comments: [facility] [address] [place], [id number] TSH 1.68 {uIU/mL} (Normal) Range: 0.358-3.74 :37 Urinalysis, Complete Comments: How was Urine Obtained? [facility] [address] [place], [address] MUCUS, URINE 0 SEEN [...] :37 Vitamin B12 539 pg/mL (Normal) Comments: [facility] Ifchcb[address]ajj8474 [place], [address] Range: 211-911 :37 Vitamin D,25 Hydroxy Comments: [facility] Zpsjvveibg2943 [place], [address] Vitamin D 25-OH 42.0 ng/mL (Normal) Comments: Vitamin D 25(OH) Status Range Deficiency <20 ng/mL (50nmol/L) Insuffciency 20 - 30 ng/mL (50 - 75 nmol/L) Sufficiency 30 - 100 ng/mL (75 - 250 nmol/L) Toxicity >100 ng/mL (>250 nmol/L) Gastric Biopsy See Note (Normal) Comments: [facility] [address], [id number] :56 Comments: Patient: LETHA DEUTSCH : 1950 (65/M) Acct Num: [id number] Phys: Jose Antonio Mehta Unit Num: [id number] Loc: LABSPEC Specimen: [id number] Received: 10/21/161630 Spec Type: Gastric Bx TISSUES TISSUES: COMMENT The results of immunohistochemistry for Helicobacter pylori will be reported separately ([id number]). GROSS DESCRIPTION Received in fixative i s one container labeled with the patient's name and designated gastric/antrum biopsy. The specimen consists of two irregular fragments of light pacheco soft tissue that in aggregate measure 0.6 x 0.3 x 0 .1 cm. The specimen is totally submitted in one cassette. / SJ:berta 10/22/16 TC:3 CPT: 73742 HEADER OPERATION: EGD with biopsy PRE-OP DIAGNOSIS: [...] on file> IMMUNOHISTOCHEMISTRY See Note (Normal) Comments: [facility] [address] [place], [address] :00 Comments: Patient: LETHA DEUTSCH : 1950 (65/M) Acct Num: [id number] Phys: ToneyTheodore manzanaresbilly Unit Num: [id number] Loc: [facility]SPEC Specimen: [id number] Received: 10/25/161212 Spec Type: IMMUNO TISSUES TISSUES: SPECIMEN INFORMATION: Tissue Source: Gastric antrum biopsy Clinical Info: Iron deficiency anemia Specimen Number: [id number] CPT code: 11861 METHODO LOGY: Deparaffinized sections of prefer/formalin-fixed tissue or PAP/DQ stained slides are incubated with monoclonal/polyclonal antibodies/oligonucleotide probes. Localization is made via biotin free immunoperoxidase method. Appropriate controls are performed and reacted as expected. Results on target cell population are indicated in the following table: RESULTS: ANTIBODY / CLONE RESULT H Pylori (polyclonal) negative These tests were developed and their performance characteristics determined by [facility]. They may not hav e been cleared or approved by the U.S. Food and Drug Administration. The FDA has determined that such clearance or approval is not necessary. INTERPRETATION: Gastric antrum, biopsy: Negative for Helicobacter pylori organisms. SJ:berta 10/26/16 PHYSICIAN AND INSTITUTION [address] [address] Signed Peter Ibanez 10/26/16 <signature on file> 5-Tmq-599241:26 CBC-Complete Blood Cnt No Diff Comments: [facility] [address] [facility] [place], [place], [phone] MPV 9.7 fL (Normal) Range: 6.2-12.0 PLT [...] K/mm3 (Normal) Range: 4.4-11.0 :26 Iron Comments: [facility] [address] [place], [place], [id number] IRON 109 ug/dL (Normal) Range: 65-175 6-Uoj-430413:10 Basic Metabolic Profile (BMP) Comments: DR.STRUNETS MALHOTRA BMP,CBCD DR. CROW MALHOTRA PT/[facility] [address] [place], [address] GAP 7 (Normal) Range: 5-15 [...] 126 mg/dLsuggests DIABETES MELLITUS per A.D.A. criteria. 0-Bdf-093054:10 CBC W/Diff, Automated Comments: DR.STRUNETS MALHOTRA BMP,CBCD DR. CROW MALHOTRA PT/[facility] [address] [place], [address] Absolute Lymph 0.85 {X10_3/ul} (Normal) [...] 4.6-6.2 WBC 3.9 K/mm3 (Abnormal) Range: 4.4-11.0 9-Ell-813691:10 Prothrombin Time w/INR Comments: DR.STRUNETS MALHOTRA BMP,CBCD DR[facility]OW [facility] [address] [place], [address] INR 1.5 (Normal) PROTIME 17.9 s (Abnormal) Range: 11.7-14.9 39-Ajo-861959:31 Stool Occult Blood iFOB Comments: [facility] [address] [facility] [place], [address] STOB See Note (Normal) Comments: Order Date: 09/02/16 STOB iFOBOccult Blood Positive ORGANISM 1: OCCULT BLOOD POSITIVE 12-Yhz-906841:25 Basic Metabolic Profile (BMP) Comments: [facility] [address] [facility] [place], [address] GAP 8 (Normal) Range: 5-15 [...] 7-18 GLU 98 mg/dL (Normal) Range: 70-110 83-Shh-593023:25 CBC-Complete Blood Cnt No Diff Comments: [facility] Cl[address]zxh9562 [facility] [address] [place], [place], [address] MPV 8.8 fL (Normal) Range: 6.2-12.0 PLT [...] 4.6-6.2 WBC 5.6 K/mm3 (Normal) Range: 4.4-11.0 38-Dmt-366436:25 Liver Profile Comments: [facility] [address] [place], [place], [address] D BILI 0.05 mg/dL (Normal) Range: 0.00-0.30 T BILI 0.20 mg/dL (Normal) Range: 0.20-1.00 ALT 24 U/L (Normal) Range: 12-78 ALK P 51 U/L (Normal) Range: 45-117 AST 13 U/L (Abnormal) Range: 15-37 GLOB 3.3 g/dL (Normal) Range: 2.3-3.5 ALB 3.7 g/dL (Normal) Range: 3.4-5.0 T PROT 7.0 g/dL (Normal) Range: 6.4-8.2 24-Gdn-501194:25 Prothrombin Time w/INR Comments: [facility] [address] [place], [place], [address] INR > 19.5 (Abnormal) Comments: RESULTS CALLED TO BRITTANEY 09/02/16 1753 Vito Arteaga.REPORT READ BACK BY SAME. PROTIME > 120.0 s (Abnormal) Range: 11.7-14.9 97-Brj-303092:53 Prothrombin Time w/INR Comments: [facility] [address] [place], [place], [address] INR > 19.5 (Abnormal) Comments: CRITICAL VALUE VERIFIED. CALLED TO GERRY AT [facility]09/02/16 1447 Alice Luque.RESULTS READ BACK BY SAME . PROTIME > 120.0 s (Abnormal) Range: 11.7-14.9 52-Dkc-191475:33 Prothrombin Time w/INR Comments: [facility] [address] [place], [place], [address] INR 1.9 (Normal) PROTIME 21.2 s (Abnormal) Range: 11.7-14.9 :51 HgA1C , Office (64339) HgA1C , Office 5.5 % (Normal) Range: 4.6 - 7.1 :51 Blood Glucose , Office (26651) Blood Glucose , Office 131 (Normal) 09-Oto-965032:44 Prothrombin Time w/INR Comments: [facility] [address] [place], [place], [address] INR 2.4 (Normal) PROTIME 25.5 s (Abnormal) Range: 11.7-14.9 98-Dmq-807590:11 Prothrombin Time w/INR Comments: [facility] [address] [place], [address] INR 1.5 (Normal) PROTIME 17.7 s (Abnormal) Range: 11.7-14.9 7-Jfv-960331:47 Prothrombin Time w/INR Comments: [facility] [address] [place], [address] INR 1.5 (Normal) PROTIME 17.7 s (Abnormal) Range: 11.7-14.9 0-Mws-837946:45 Basic Metabolic Profile (BMP) Comments: Order Date: 06/09/16Order Info: 0667-1 - *BMPDR. [facility] ORDERED PTINR STANDING ORDER.Order Date: 06/09/16Order Info: 0667-1 - *BMPComments: Reason:[facility] [address] [place], [address] GAP 9 (Normal) Range: 5-15 CO2 30.0 [...] 7-18 GLU 106 mg/dL (Normal) Range: 70-110 14-Hzv-54788:02 Prothrombin Time w/INR Comments: [facility] [address] [place], [address] INR 1.8 (Normal) PROTIME 20.1 s (Abnormal) Range: 11.7-14.9 86-Vvb-52410:27 POTASSIUM SERUM (65877) Comments: STAT; Order Date: 06/30/16Order Info: 2823-3 - KComments: STATOrder Date: 06/30/16Order Info: 2823-3 - KComments: [facility] [address] [place], [address] K 4.6 mmol/L Range: 3.5-5.1 (Normal) Vitamin B2, Whole 236 ug/L (Normal) Comments: PATIENT NOT FASTINGPERFORMED BY: [facility] Wpzyqd9248 Hansen RoadDublin [place] [id number] BY: [address] [id number] 5:40 Blood Range: 137-370 Comments: Reference interval reflects flavinadeninedinucleotide (FAD), that accounts for approximately 90% of the total riboflavin in whole blood. 84-Rtl-661128:40 Vitamin B6, Plasma Comments: PATIENT NOT FASTINGPERFORMED BY: [facility] Baftaq3340 Hansen RoadDublin [place] [id number] BY: [address] [id number] (92034) Vitamin B6 36.6 ug/L (Normal) Range: 5.3-46.7 72-Ygy-506781:40 ALCOHOL, ETHYL (BLOOD) Comments: serum alcohol; PATIENT NOT FASTINGPERFORMED BY: [facility] Vhznod9329 Hansen RoadDublin [place] [id number] BY: [place] [id number] (44925) Ethanol Negative % (Normal) 81-Wfj-032425:40 AMMONIA (40979) Comments: PATIENT NOT FASTINGPERFORMED BY: [facility] Jkopys2617 Hansen RoadDublin [place] [id number] BY: [address] [id number] Ammonia, Plasma 42 ug/dL (Normal) Range: 27-102 68-Qzt-309353:40 VITAMIN B-12 Comments: PATIENT NOT FASTINGPERFORMED BY: [facility] Ctlbib4105 Hansen RoadDublin [place] [id number] BY: Archive[address] [id number] (CYANOCOBALAMIN) (06630) Vitamin B12 417 pg/mL (Normal) Range: 211-946 :40 SED RATE ERYTHROCYTE Comments: PATIENT NOT FASTINGPERFORMED BY: [facility] Drlskm3596 Hansen Roadblin [place] [id number] BY: [employer] [id number] (44559) Sedimentation Rate-Westergren 8 mm/h (Normal) Range: 0-30 46-Aaf-434397:40 RHEUMATOID FACTOR-QUANT Comments: PATIENT NOT FASTINGPERFORMED BY: [facility] Sycwfo9012 [facility] Centerbl[facility] [place] [id number] BY: [employer] [id number] (53443) RA Latex Turbid. 10.8 {IU/mL} (Normal) Range: 0.0-13.9 89-Itk-501920:40 METABOLIC PANEL, Comments: PATIENT NOT FASTINGPERFORMED BY: [employer] [facility] Wfvlfy[address] [facility]in [place] [id number] BY: [address] [id number] COMPREHENSIVE (03276) ALT (SGPT) 25 [iU]/L (Normal) Range: 0-44 [...] Glucose, Serum 100 mg/dL (Abnormal) Range: 65-99 85-Rso-004555:40 C-REACTIVE PROTEIN Comments: PATIENT NOT FASTINGPERFORMED BY: [employer] [id number] BY: Archive[address] [id number] (34481) C-Reactive Protein, Quant 0.9 mg/L (Normal) Range: 0.0-4.9 :40 CBC (AUTO) (44685) Comments: PATIENT NOT FASTINGPERFORMED BY: Archive[address] [id number] BY: Archive[address] [id number] Platelets 194 {x10E3/uL} (Normal) Range: 150-379 RDW 15.6 % (Abnormal) Range: 12.3-15.4 MCHC 33.1 g/dL (Normal) Range: 31.5-35.7 MCH 34.4 pg (Abnormal) Range: 26.6-33.0 MCV 104 fL (Abnormal) Range: 79-97 Hematocrit 39.9 % (Normal) Range: 37.5-51.0 Hemoglobin 13.2 g/dL (Normal) Range: 12.6-17.7 RBC 3.84 {x10E6/uL} (Abnormal) Range: 4.14-5.80 WBC 5.9 {x10E3/uL} (Normal) Range: 3.4-10.8 :40 CHIQUI (ANTINUCLEAR ANTIBODY) Comments: PATIENT NOT FASTINGPERFORMED BY: [place] 0101670 [facility] [id number] BY: [place] [id number] (77627) CHIQUI Direct Negative (Normal) :40 TSH (77921) Comments: PATIENT NOT FASTINGPERFORMED BY: [employer] [id number] BY: [place] [id number] TSH 2.350 {uIU/mL} (Normal) Range: 0.450-4.500 :40 T4, FREE (THYROXINE) Comments: PATIENT NOT FASTINGPERFORMED BY: [employer] InternationalRhonda Ville 9403670 [facility] [id number] BY: [address] [id number] (36711) T4,Free(Direct) 0.95 ng/dL (Normal) Range: 0.82-1.77 :40 T3, FREE (TRIDOTHYRONINE) Comments: PATIENT NOT FASTINGPERFORMED BY: Archive[address] [id number] BY: [address] [id number] (12570) Triiodothyronine,Free,Serum 2.7 pg/mL (Normal) Range: 2.0-4.4 :40 CALCIFIDIOL (08847) VIT D Comments: PATIENT NOT FASTINGPERFORMED BY: [address] [id number] BY: [address] [id number] Vitamin D, 25-Hydroxy 43.4 ng/mL (Normal) Range: 30.0-100.0 Comments: Vitamin D deficiency has been defined by the [place] of[place]icine and an Endocrine Society practice guideline as alevel of serum 25-OH vitamin D less than 20 ng/mL (1,2).The Endocrine Society went on to further define vitamin Dinsufficiency as a level between 21 and 29 ng/mL (2).1. IOM ([place] of [employer]). 2010. Dietary reference intakes for calcium and D. Ca DC: The National Academies Press.2. lEyse MF, Saumya PUENTE, Nai MARIANO, et al. Evaluation, treatment, and prevention of vitamin D deficiency: an Endocrine Society clinical practice guideline. JCEM. 2010; 96(7):1911-30. 26-Ucx-055995:45 Alcohol, Blood (Medical)-Serum Comments: [facility] Tnytfmqrks[address] [place], [place], [address] SERUM ETOH 353.0 mg/dL (Abnormal) Comments: CALLED KEESHA LOBO RN ED [place] 2054PM MAF READ BACK BY SAMEThe serum:whole blood ethanol ratio is approximately 1.14and varies slightly with hematocrit.Medical Alcohol reference interval and critical v alue innon-tolerant individuals; 50 - 100 Impairment 100 Intoxication 100 - 250 Severe Poisoning 250 - 400 Deep/possible fatal coma 31-Zrw-404148:45 Basic Metabolic Profile (BMP) Comments: 'TROP' Serial specimen #1, #2, #3, or #4: 1[facility] Qmbgprwldr[address] [place], [place], [address] GAP 10 (Normal) Range: 5-15 CO2 26.0 [...] Range: 70-110 :45 CBC W/Diff, Automated Comments: [facility] Tnlcdelcko3[address] [place], [place], [address] Absolute Lymph 2.30 {X10_3/ul} (Normal) Range: 0.83-4.51 [...] Range: 4.4-11.0 :45 Partial Thromboplast Time Comments: [facility] Xvqjtfrklc59[address] [place], [address] PTT 28.3 s (Normal) Range: 24.1-36.2 :45 Prothrombin Time w/INR Comments: [facility] Gfrogpcydq78[address] [place], [address] INR 1.1 (Normal) PROTIME 14.1 s (Normal) Range: 11.7-14.9 :45 Troponin-I Comments: 'TROP' Serial specimen #1, #2, #3, or #4: [facility] Rqvxlxvrwe7226 [place], [address] TROPONIN-I < 0.02 ng/mL (Normal) Comments: TROPONIN-I EXPECTED VALUES <0.05 NEGATIVE 0.06 - 0.59 AT RISK OF MS > OR = 0.60 SUGGEST MS :24 Prothrombin Time w/INR Comments: [facility] Ngqnreyvbm68[address] [place], [place], [address] ; managed by [facility] INR 1.3 (Normal) PROTIME 15.2 s (Abnormal) Range: 11.7-14.9 54-Frc-148241:46 INR Fingerstick Comments: [facility] LaboratoryPoint Rxrt5419 [address] [place] [phone] INR ISTAT 3.90 (Abnormal) Comments: Critical Value > 3.5 :46 Prothrombin Time Fingerstick Comments: [facility] LaboratoryPoint [place] [address] [place] [address] PROTIME ISTAT 43.7 {SEC} (Abnormal) Range: 11.9-14.4 Comments: Reference Range 11.9 - 14.4 32-Ncz-350675:46 Prothrombin Time w/INR Comments: [facility] Kgkzawuxnt66[address] [place], [address] INR 4.0 (Abnormal) Comments: CRITICAL VALUE VERIFIED. CALLED TO OHQNXSW45 Nova Walters.RESULTS READ BACK BY SAME . PROTIME 38.0 s (Abnormal) Range: 11.7-14.9 99-Wce-883671:49 Prothrombin Time w/INR Comments: [facility] I[address]spr[address] [place], [phone] INR 2.8 (Normal) PROTIME 28.4 s (Abnormal) Range: 11.7-14.9 30-Glp-376004:52 Basic Metabolic Profile (BMP) Comments: Order Date: 05/04/16Order Info: [id number] - *BMPOrder Date: 05/04/16Order Info: [id number] - *Brain Natriuretic Peptide BNPComments: Reason:[facility] [address] [place], [place], [address] GAP 10 (Normal) Range: 5-15 CO2 30.0 [...] 7-18 GLU 104 mg/dL (Normal) Range: 70-110 30-Diq-970365:52 BNP,B-Type NATRIURETIC PEPTIDE Comments: Order Date: 05/04/16Order Info: [id number] - *Brain Natriuretic Peptide BNPOrder Date: 05/04/16Order Info: [id number] - *Brain Natriuretic Peptide BNPWooLicking [facility] Hospital Dkovjujeit[address] [place], [place], [address] B-TYPE ARASELI PEP 240.6 pg/mL (Abnormal) Range: 0-100 22-Uiv-266768:52 Prothrombin Time w/INR Comments: [facility] Zponcahjcf[address] [place], [address] INR 2.5 (Normal) PROTIME 25.8 s (Abnormal) Range: 11.7-14.9 94-Boa-704955:46 Liver Profile Comments: Order Date: 12/12/15Order Date: 12/12/15[facility] Vuokdjnnhs7335 [address] [place], [address] D BILI 0.12 mg/dL (Normal) Range: 0.00-0.30 [...] Range: 6.4-8.2 :46 Prothrombin Time w/INR Comments: [facility] Uqnymciooc[address] [place], [address] INR 3.6 (Abnormal) Comments: CRITICAL VALUE REPEATED AND VERIFIED. CALLED TO DARRYL MEYERS'S OFFICE.04/26/16 1238 Randy Buchanan.RESULTS READ BACK BY SAME. PROTIME 35.0 s (Abnormal) Range: 11.7-14.9 :58 Basic Metabolic Profile (BMP) Comments: [facility] Vfoexfkxws4715 L[place], 8838[address] GAP 7 (Normal) Range: 5-15 CO2 32.0 [...] Range: 70-110 :58 Prothrombin Time w/INR Comments: [facility] [address] [place], [place], [address] INR 1.9 (Normal) PROTIME 20.9 s (Abnormal) Range: 11.7-14.9 :08 Prothrombin Time w/INR Comments: [facility] [address] [place], [place], [address](478) INR 3.3 (Normal) PROTIME 32.5 s (Abnormal) Range: 11.7-14.9 :34 Prothrombin Time w/INR Comments: [facility] [address] [place], [place], [address] ; managed by cardio INR 2.6 (Normal) PROTIME 27.0 s (Abnormal) Range: 11.7-14.9 :16 HgA1C , Office (26115) HgA1C , Office 5.7 % (Normal) Range: 4.6 - 7.1 :13 Prothrombin Time w/INR Comments: [facility] [address] [place], [place], [address](853) INR 2.6 (Normal) PROTIME 27.1 s (Abnormal) Range: 11.7-14.9 :26 CBC W/Diff, Automated Comments: [facility] [address] [place], [address] Absolute Lymph 1.54 {X10_3/ul} (Normal) [...] ORDERED VITD LIPID MAG CBCD CMP MIACRE [facility] Igzathdhdy5329 [place], [address] GAP 4 (Abnormal) Range: 5-15 CO2 [...] ORDERED VITD LIPID MAG CBCD CMP MIACRE [facility] Coyydhgawi6872 [address] [place], [place], [address] VLDL 72 mg/dL (Abnormal) Range: 5-40 LDL [...] PT/INRDR.IRVIN ORDERED VITD LIPID MAG CBCD [facility] Bcxsyfyieb6651 [address] [place], [place], [phone](038) MG 2.6 mg/dL (Abnormal) Range: 1.8-2.4 :26 Microalb:Creat Ratio,Random UR Comments: [facility] [address]qrjizajqa6[address] [place], [address] MALB:CREAT 24.3 {mg/g_CRE} (Normal) MICROALBUMIN,UR 70.9 mg/L (Normal) UR CREAT 292.00 mg/dL (Normal) :26 Prothrombin Time w/INR Comments: [facility] Lwxtkwbiuh9646 [address] [place], [place], [address] INR 3.5 (Abnormal) Comments: CRITICAL VALUE REPEATED AND VERIFIED. CALLED TO ORTIZ LABOY'S OFFICE.03/16/16 0742 Randy Buchanan.RESULTS READ BACK BY SAME. PROTIME 33.9 s (Abnormal) Range: 11.7-14.9 :26 Thyroid Stim Hormone (TSH) Comments: ORDERED PT/INRDR.IRVIN ORDERED VITD LIPID MAG CBCD [facility] Qqgxdzonmu5656 [address] [place], [place], [address] TSH 2.35 {uIU/mL} (Normal) Range: 0.358-3.74 :26 Urinalysis, Complete Comments: How was Urine Obtained? CLEAN [facility] Iweqxrdrfj44[address] [place], [address] HYALINE CAST 5-10 SEEN {/lpf} [...] Yellow (Normal) :26 Vitamin D,25 Hydroxy Comments: [facility] [address] [place], [address] Vitamin D 25-OH 39.8 ng/mL (Normal) Comments: Vitamin D 25(OH) Status Range Deficiency <20 ng/mL (50nmol/L) Insuffciency 20 - 30 ng/mL (50 - 75 nmol/L) Sufficiency 30 - 100 ng/mL (75 - 250 nmol/L) Toxicity >100 ng/mL (>250 nmol/L) :03 Prothrombin Time w/INR Comments: [facility] [address] [place], [address] INR 4.0 (Abnormal) Comments: CRITICAL VALUE REPEATED AND VERIFIED. [facility]03/10/16 0907 Alice Luque.RESULTS READ BACK BY SAME . PROTIME 37.4 s (Abnormal) Range: 11.7-14.9 :57 Prothrombin Time w/INR Comments: [facility] Ehfparxyog[address] [place], [place], [address] INR 1.6 (Normal) PROTIME 18.3 s (Abnormal) Range: 11.7-14.9 :02 Prothrombin Time w/INR Comments: [facility] [address] [place], [address](626) INR 1.8 (Normal) PROTIME 20.6 s (Abnormal) Range: 11.7-14.9 :12 Prothrombin Time w/INR Comments: [facility] Led[address]jffi[address] [place], [address](719) INR 2.3 (Normal) PROTIME 24.4 s (Abnormal) Range: 11.7-14.9 :50 Prothrombin Time w/INR Comments: [place] [address] [place], [address]( INR 2.8 (Normal) PROTIME 28.9 s (Abnormal) Range: 11.7-14.9 :40 INR Fingerstick Comments: [facility] LaboratoryPoint [place] [address] [place] [address](337) INR ISTAT 2.40 (Normal) Comments: Critical Value > 3.5 :40 Prothrombin Time Fingerstick Comments: [facility] LaboratoryPoint [place] [address] [place] [address](952) PROTIME ISTAT 27.5 {SEC} (Abnormal) Range: 11.9-14.4 Comments: Reference Range 11.9 - 14.4 :54 Prothrombin Time w/INR Comments: THERE IS NO VRO CHARGE ON THIS PATIENT; THIS PATIENTRETURNED FROM TUESDAY. A BMP AND A PT WAS SUPPOSED TO BEDRAWN, ONLY THE BMP WAS DONE. [facility] Hyfmvqniqm[address] [place], [address] INR 2.8 (Normal) PROTIME 28.4 s (Abnormal) Range: 11.7-14.9 :38 Basic Metabolic Profile (BMP) Comments: Order Date: 01/08/16Comments: Reason:Order Date: 01/08/16Comments: Reason:[facility] [address] [place], [address] GAP 9 (Normal) Range: 5-15 CO2 25.0 [...] A.D.A. criteria. :52 Prothrombin Time w/INR Comments: [facility] [address]fft[address] [facility] [address] [place], [place], [phone](890) INR 4.6 (Abnormal) Comments: CRITICAL VALUE REPEATED AND VERIFIED. CALLED TO [facility]02/05/16 1003 Alice Luque.RESULTS READ BACK BY SAME . PROTIME 41.9 s (Abnormal) Range: 11.7-14.9 :01 Prothrombin Time w/INR Comments: [facility] [address] [place], [place], [address](532) INR 2.5 (Normal) PROTIME 26.0 s (Abnormal) Range: 11.7-14.9 :40 Prothrombin Time w/INR Comments: [facility] [address] [place], [place], [address](737) INR 2.5 (Normal) PROTIME 26.1 s (Abnormal) Range: 11.7-14.9 :52 Prothrombin Time w/INR Comments: [facility] [address]ebfgpzlcv[address] [place], [address] INR 2.3 (Normal) PROTIME 24.3 s (Abnormal) Range: 11.7-14.9 7-Ccf-013142:24 Basic Metabolic Profile (BMP) Comments: Order Date: 01/13/16Comments: Reason: For Out patient Cardioversion on 02/16/16Order Date: 01/13/16Comments: Reason: For Out patient Cardioversion on 02/16/16[facility] Varskrnpkx[address] [place], [address] GAP 5 (Normal) Range: 5-15 CO2 33.0 [...] 7-18 GLU 108 mg/dL (Normal) Range: 70-110 08-Laf-69228:45 Basic Metabolic Profile (BMP) Comments: Order Date: 12/09/15Interface Comments: Reason:Order Date: 12/09/15[facility] Epiwglbula[address] [place], [phone] GAP 9 (Normal) Range: 5-15 CO2 29.0 [...] 01/05/16Interface Comments: Reason:Atrial fib, on CoumadinOrder Date: 01/05/16[facility] [address] [place], [place], [phone](115) INR 3.6 (Abnormal) Comments: CRITICAL VALUE REPEATED AND VERIFIED. CALLED TO CANDACE P001/07/16 0819 Terrie Toussaint.RESULTS READ BACK BY CANDACE. PROTIME 34.9 s (Abnormal) Range: 11.7-14.9 :21 Prothrombin Time w/INR Comments: [facility] [address]juxt[address] [place], [place], [address](810) INR 2.1 (Normal) PROTIME 23.1 s (Abnormal) Range: 11.7-14.9 :12 Prothrombin Time w/INR Comments: Order Date: 12/26/15Interface Comments: draw on arrivalOrder Date: 12/26/15[facility] [address] [place], [place], [phone](750) INR 2.9 (Normal) PROTIME 29.2 s (Abnormal) Range: 11.7-14.9 91-Xrs-559250:08 Prothrombin Time w/INR Comments: [facility] [address] [place], [place], [phone](714) INR 1.7 (Normal) PROTIME 19.6 s (Abnormal) Range: 11.7-14.9 46-Vhl-08989:03 Prothrombin Time w/INR Comments: Order Date: 12/18/15Order Date: 12/18/15[facility] [address]vzictbhyp[address] [place], [address] INR 4.1 (Abnormal) Comments: CRITICAL VALUE REPEATED AND VERIFIED. CALLED TO DARRYL LABOY'S OFFICE.12/23/15 0803 Randy LylesRESULTS READ BACK BY SAME. PROTIME 38.6 s (Abnormal) Range: 11.7-14.9 3-Bog-833737:16 Basic Metabolic Profile (BMP) Comments: Order Date: 12/18/15Interface Comments: Reason:Order Date: 12/18/15[facility] Xctrjsfndx5505 [place], [address] GAP 9 (Normal) Range: 5-15 CO2 [...] A.D.A. criteria. 16-Dec-20158:11 Prothrombin Time w/INR Comments: [facility] Qzqzdcoipf44[address] [place], [address] INR 3.6 (Abnormal) Comments: CRITICAL VALUE REPEATED AND VERIFIED. CALLED TO JANINERN12/16/15 Ondina Luque.RESULTS READ BACK BY SAME . PROTIME 34.5 s (Abnormal) Range: 11.7-14.9 :10 Basic Metabolic Profile (BMP) Comments: Order Date: 12/04/15Interface Comments: Reason:Order Date: 12/04/15[facility] T[address]vmgnrnf[address] [place], [place], [address] GAP 8 (Normal) Range: 5-15 CO2 28.0 [...] Comments: Order Date: 12/04/15Interface Comments: Reason:Order Date: 12/04/15[facility] Mkpdhzhjfq9125 [address] [place], [place], [address] VLDL Test not performed mg/dL (Normal) Range: [...] Comments: Order Date: 12/04/15Interface Comments: Reason:Order Date: 12/04/15[facility] Hhixruamjb14[address] [place], [address] D BILI 0.11 mg/dL (Normal) Range: 0.00-0.30 T BILI 0.30 mg/dL (Normal) Range: 0.20-1.00 ALT 63 U/L (Normal) Range: 12-78 ALK P 64 U/L (Normal) Range: 50-136 AST 33 U/L (Normal) Range: 15-37 GLOB 3.2 g/dL (Normal) Range: 2.3-3.5 ALB 3.5 g/dL (Normal) Range: 3.4-5.0 T PROT 6.7 g/dL (Normal) Range: 6.4-8.2 :10 Magnesium Comments: Order Date: 12/04/15Interface Comments: Reason:Order Date: 12/04/15[facility] Qpvamokkfo[address] [place], [address] MG 2.1 mg/dL (Normal) Range: 1.8-2.4 :10 Prothrombin Time w/INR Comments: Order Date: 12/04/15Interface Comments: Reason:Order Date: 12/04/15[facility] Udkkfxtjcy3519 [place], [address] INR 1.7 (Normal) PROTIME 19.3 s (Abnormal) Range: 11.7-14.9 :10 Thyroid Stim Hormone (TSH) Comments: Order Date: 12/04/15Interface Comments: Reason:Order Date: 12/04/15[facility] [address]ptqscpbn79[address] [place], [address] TSH 1.65 {uIU/mL} (Normal) Range: 0.358-3.74 :41 MAGNESIUM (20441) Comments: PATIENT NOT FASTINGPERFORMED BY: [facility]CoG[facility] CenterWkyehq2475 [facility] [id number] Magnesium, Serum 2.1 mg/dL (Normal) Range: 1.6-2.3 [...] Basic Comments: PATIENT NOT FASTINGPERFORMED BY: [facility] Otofqq9694 [facility] [id number] Information: [id number] (63215) Calcium, Serum 9.1 mg/dL (Normal) Range: 8.6-10.2 [...] Range: 65-99 :21 Blood Glucose , Office (44793) Blood Glucose , Office 99 (Normal) :21 HgA1C , Office (97949) HgA1C , Office 5.0 % (Normal) Range: 4.6 - 7.1 :49 RETICULOCYTE COUNT (41522) Comments: PATIENT NOT FASTINGPERFORMED BY: [facility]CoDeborah [facility] and Lung CenterVmmalw3149 [facility] [id number] Reticulocyte Count 2.4 % (Normal) Range: 0.6-2.6 :49 VITAMIN B-12 (CYANOCOBALAMIN) Comments: PATIENT NOT FASTINGPERFORMED BY: [facility]CoDeborah [facility] and Lung CenterNycgzy5117 [facility] [id number] Information: [id number] (90175) Vitamin B12 560 pg/mL (Normal) Range: 211-946 :36 Bilirubin, Direct Comments: [facility] [address] [place], [place], [address] D BILI 0.14 mg/dL (Normal) Range: 0.00-0.30 :36 CBC W/Diff, Automated Comments: [facility] [address] [place], [place], [address] Absolute Lymph 1.26 {X10_3/ul} (Normal) Range: 0.83-4.51 [...] 4.6-6.2 WBC 5.1 K/mm3 (Normal) Range: 4.4-11.0 30-Sbh-22854:36 Comprehensive Metabolic Profil Comments: [facility] [address]pbelnilzl[address] [place], [place], [address] GAP 6 (Normal) Range: 5-15 CO2 30.0 [...] per A.D.A. criteria. :36 Lipid Profile Comments: [facility] Igxiaemvco29[address] [place], [place], [address] VLDL 62 mg/dL (Abnormal) Range: 5-40 LDL [...] High Risk :36 Microalb:Creat Ratio,Random UR Comments: [facility] [address]iedlnjs[address] [place], [place], [address] MALB:CREAT 142.0 {mg/g_CRE} (Abnormal) MICROALBUMIN,UR 223.0 mg/L (Normal) UR CREAT 157.00 mg/dL (Normal) :36 Thyroid Stim Hormone (TSH) Comments: [facility] [address]spizu[address] [place], [place], [address] TSH 1.17 {uIU/mL} (Normal) Range: 0.358-3.74 :36 Urinalysis, Complete Comments: How was Urine Obtained? CLEAN [facility] E[address]jxxhwhpk[address] [place], [place], [address] MUCUS, URINE 0 SEEN {/hpf} (Normal) BACTERIA [...] Yellow (Normal) :36 Vitamin D,25 Hydroxy Comments: [facility] [address]cszojdhmb60[address] [place], [place], [address] Vitamin D 25-OH 21.0 ng/mL (Normal) Comments: Vitamin D 25(OH) Status Range Deficiency <20 ng/mL (50nmol/L) Insuffciency 20 - 30 ng/mL (50 - 75 nmol/L) Sufficiency 30 - 100 ng/mL (75 - 250 nmol/L) Toxicity >100 ng/mL (>250 nmol/L) 07-Pht-597773:29 HgA1C , Office (84882) HgA1C , Office 5.6 % (Normal) Range: 4.6 - 7.1 :29 Blood Glucose , Office (39436) Blood Glucose , Office 96 (Normal) :29 CBC W/Diff, Automated Comments: [facility] [address]vjucvuv18[address] [place], [place], [address] Absolute Lymph 2.04 {X10_3/ul} (Normal) Range: 0.83-4.51 [...] 4.6-6.2 WBC 7.9 K/mm3 (Normal) Range: 4.4-11.0 88-Bkj-572057:29 Comprehensive Metabolic Profil Comments: [facility] Djebusogql39[address] [place], [place], [address] GAP 12 (Normal) Range: 5-15 CO2 25.0 [...] <126 mg/dLsuggests IMPAIRED HOMEOSTASIS per A.D.A. criteria. [id number] Rapid Flu (54795 x 2) Influenza A Ag neg a and b (Normal) :13 Basic Metabolic Profile (BMP) Comments: [facility] [address] [place], [place], [id number] GAP 4 (Abnormal) Range: 5-15 CO2 33.0 [...] (Normal) Range: 70-110 :50 HgA1C , Office (14991) HgA1C , Office 5.2 % (Normal) Range: 4.6 - 7.1 :50 Blood Glucose , Office (52887) Blood Glucose , Office 111 (Normal) :48 Basic Metabolic Profile (BMP) Comments: [facility] [address] [place], [id number] GAP 7 (Normal) Range: 5-15 CO2 31.0 [...] A.D.A. criteria. :48 T4 Total, Thyroxin Comments: [facility] [address] [place], [place], [id number] T4 THYROXIN 6.7 ug/dL (Normal) Range: 4.5-12.1 :48 Thyroid Stim Hormone (TSH) Comments: [facility] [address] [place], [id number] TSH 1.02 {uIU/mL} (Normal) Range: 0.358-3.74 :35 CBC W/Diff, Automated Comments: [facility] [address] [place], [place], [id number] Absolute Lymph 1.13 {X10_3/ul} (Normal) Range: 0.83-4.51 [...] Range: 4.4-11.0 :35 Comprehensive Metabolic Profil Comments: [facility] [address] [place], [place], [id number] GAP 5 (Normal) Range: 5-15 CO2 31.0 [...] (Normal) Range: 70-110 :35 Lipid Profile Comments: [facility] [address] [facility]. [place], [place], [id number] VLDL 44 mg/dL (Abnormal) Range: 5-40 LDL [...] High Risk :35 Microalb:Creat Ratio,Random UR Comments: [facility] [address] [facility] [address] [place], [place], [id number] MALB:CREAT 31.9 {mg/g_CRE} (Abnormal) MICROALBUMIN,UR 31.7 mg/L (Normal) UR CREAT 99.40 mg/dL (Normal) :35 Thyroid Stim Hormone (TSH) Comments: [facility] [address] [place], [address] TSH 1.05 {uIU/mL} (Normal) Range: 0.358-3.74 :35 Urinalysis, Complete Comments: How was Urine Obtained? [facility] [address] [place], [address] MUCUS, URINE 0 SEEN {/hpf} [...] COLOR Yellow (Normal) :48 HgA1C , Office (40753) HgA1C , Office 5.2 % (Normal) Range: 4.6 - 7.1 :48 Blood Glucose , Office (87103) Blood Glucose , Office 114 (Normal) :03 MRSA/SAID SCREEN Comments: [facility] [address] [place], [address] MRSA+SAID SCRN See Note (Normal) Comments: MRSA/SAID SCRNS. AUREUS S. aureus NegativeMRSA MRSA Negative :13 CBC W/Diff, Automated Comments: Test performed at:[facility] [address] [place] [address] Absolute Lymph 1.57 {X10_3/ul} (Normal) [...] :13 Comprehensive Metabolic Profil Comments: Test performed at:[facility] [address] [place] [address] GAP 4 (Abnormal) Range: 5-15 [...] 70-110 :13 Lipid Profile Comments: Test performed at:[facility] [address] [place], [place] [id number] VLDL 35 mg/dL (Normal) Range: 5-40 LDL [...] :13 Microalb:Creat Ratio,Random UR Comments: Test performed at:[facility] [address] [place], [place] [address] MALB:CREAT 5.0 {mg/g_CRE} (Normal) MICROALBUMIN,UR 5.2 mg/L (Normal) UR CREAT 89.50 mg/dL (Normal) :13 Thyroid Stim Hormone (TSH) Comments: Test performed at:[facility] [address] [place] [address] TSH 0.97 {uIU/mL} (Normal) Range: 0.358-3.74 :13 Urinalysis, Routine (Dipstick) Comments: How was Urine Obtained? CLEAN CATCHTest performed at:[facility] [address] [place] [address] LEUK ESTERASE Negative /ul (Normal) [...] COLOR Yellow (Normal) :35 HgA1C , Office (07658) HgA1C , Office 5.7 % (Normal) Range: 4.6 - 7.1 :35 Blood Glucose , Office (79024) Blood Glucose , Office 111 (Normal) :40 Miscellaneous Lab Procedure Comments: Comments: DRUG SCREEN [id number](s) Ordered: DRUG SCREEN [id number] performed at:[facility] [address] [place] [address] ; [facility] Comments: [id number] 6+OXYCODONE-BUND (ng/mL)DRUG RESULT SCREEN CUTOFF____ Amphetamines NEGAT LAB (Normal) BARI ng/mL 1000Barbiturates NEGATIVE ng/mL 200Benzodiazepines NEGATIVE ng/mL 200Cannabinoid NEGATIVE ng/mL 20Cocaine (Metab) NEG TEST ATIVE ng/mL 300Opiates NEGATIVE ng/mL 300 Opiates test includes Codeine, Morphine, Hydromorphone, Hydrocodone.Oxycodone/Oxymorphone,Urine NEGATIVE ng/mL 300 Test includes Oxydodone and Oxymorphone. [facility] AT [facility]. ORIGINAL REPORT ON FILE IN LAB CONTAINS ADDITIONAL TEST SITE INFORMATIO N. 8-Imd-822951:40 Urine Drug Screen (VISTA) Comments: Comments: DRUG SCREEN [id number] of Drugs Taken or Suspected? .Test performed at:[facility] [address] [place], [place] [id number] THC NEGATIVE (Normal) PCP NEGATIVE (Normal) OPIATES [...] Hydroxy Comments: Has pt arrived? YTest performed at:[facility] [address] [place] [address] Vitamin D 25-OH 38.2 ng/mL (Normal) Comments: Vitamin D 25(OH) Status Range Deficiency <20 ng/mL (50nmol/L) Insuffciency 20 - 30 ng/mL (50 - 75 nmol/L) Sufficiency 30 - 100 ng/mL (75 - 250 nmol/L) Toxicity >100 ng/mL (>250 nmol/L) :24 Urinalysis, Routine (Dipstick) Comments: Has pt arrived? YHow was Urine Obtained? CLEAN CATCHTest performed at:[facility] [address] [place] [address] LEUK ESTERASE Negative /ul (Normal) [...] pt arrived? YHas pt arrived? YTest performed at:[facility] [address] [facility] [place] [address] GAP 5 (Normal) Range: 5-15 [...] pt arrived? YHas pt arrived? YTest performed at:[facility] [address] [place] [address] VLDL 12 mg/dL (Normal) Range: [...] UR Comments: Has pt arrived? YTest performed at:[facility] [address] [facility] [place] [address] MALB:CREAT 4.2 {mg/g_CRE} (Normal) MICROALBUMIN,UR 5.6 mg/L (Normal) UR CREAT 131.9 mg/dL (Normal) :23 Thyroid Stim Hormone (TSH) Comments: Has pt arrived? YHas pt arrived? YTest performed at:[facility] [address] [facility] [place] [address] TSH 1.09 {uIU/mL} (Normal) Range: 0.358-3.74 :22 CBC W/Diff, Automated Comments: Has pt arrived? YTest performed at:[facility] [address] [place] [address] Absolute Lymph 1.37 {X10_3/ul} (Normal) [...] (Abnormal) Range: 4.4-11.0 :54 HgA1C , Office (89111) HgA1C , Office 5.8 % (Normal) Range: 4.6 - 7.1 :02 Basic Metabolic Profile (BMP) Comments: ADDED BMPTest performed at:[facility] [address] [place], [place] [address] GAP 6 (Normal) Range: 5-15 CO2 27.0 [...] 70-110 :02 Lipid Profile Comments: Test performed at:[facility] [address] [facility] [place] [address] VLDL 96 mg/dL (Abnormal) Range: [...] Risk :02 Liver Profile Comments: Test performed at:[facility] [address] [place] [address] D BILI 0.10 mg/dL (Normal) [...] performed using the TPSA assay method for the[facility] chemistry system. Values obtained with differentassay methods [...] UCOL Yellow (Normal) :25 HgA1C , Office (03273) HgA1C , Office 5.8 % (Normal) Range: 4.6 - 7.1 :10 Blood Glucose , Office (42899) Blood Glucose , Office 83 (Normal) :10 HgA1C , Office (48206) HgA1C , Office 5.7 % (Normal) Range: [...] 08/13/10 1143 Sign by: JESS HENDRICKS MD 41-Set-143672:21 COMPLETE UA BACTERIA 0 SEEN {/hpf} (Normal) [...] NEGATIVE 0.06 - 0.59 AT RISK OF MS > OR = 0.60 SUGGEST MS :52 COMP METABOLIC Comments: Please Note: TROPONIN [...] 7-18 GLU 98 mg/dL (Normal) Range: 70-110 21-Xgl-62545:21 LIPID Comments: appt 07/24/10 VLDL 33 mg/dL [...] 200-240 mg/dL Borderline >240 mg/dL High Risk 1-Rrh-696824:52 KIDNEY Radiology Report See Note (Normal) Comments: [...] CHOL 127 mg/dL (Normal) Comments: <200 mg/dL Lofvrennn093-374 mg/dL Borderline>240 mg/dL High Risk :10 CBCD [...] CHOL 146 mg/dL (Normal) Comments: <200 mg/dL Bzyfotlbt958-817 mg/dL Borderline>240 mg/dL High Risk TRIG 166 [...] Report See Note (Normal) Comments: Exam Number: [id number] CLINICAL: Fatigue MRI BRAIN WITH AND WITHOUT [...] of remotetrauma. Reported By: HUEY ERAZO M.D. 24-Smr-595669:19 CHIQUI-D [id number] CHIQUI-DIRECT SeeNote (Normal) Comments: Result: NegativePerformed At: [facility] [address] [place], [place] [id number] 40-Xtx-632575:07 B12/FOLATES FOLATES 26.50 ng/mL (Abnormal) Range: 3.1-17.5 VITAMIN B12 1068 pg/mL (Normal) Range: 254-1320 06-Cve-829562:07 RHEUMATOID FAC < 10 {IU/mL} (Normal) :07 TSH 0.59 {uIU/mL} (Normal) Range: 0.358-3.74 41-Snc-323196:07 C-REACTIVE PROT 3.09 mg/L (Abnormal) Range: 0.0-3.0 [...] 6.4-8.2 GLU 75 mg/dL (Normal) Range: 70-110 76-Bhd-078183:28 ESR SED RATE 6 mm/h (Normal) Range: 0-20 82-Dyy-807602:28 CBCD BASO% 0.5 % (Normal) Range: 0-1 [...] 4.6-6.2 WBC 9.4 K/mm3 (Normal) Range: 4.4-11.0 9-Xey-634516:18 CULTURE, THROAT See Note (Normal) Comments: Normal throat susanne isolated. No beta-hemolyticstreptococcus isolated. 14-Apr-20098:48 Rapid Strep Test, Office (45465) Rapid Strep Test, Office Negative (Normal) 6-Jpq-062907:59 CTA NECK W/WO CONTRAST Radiology Report See Note (Normal) Comments: Exam Number: [id number] HISTORYCarotid stenosis. Abnormal carotid artery ultrasound. CT [...] K 4.5 mmol/L Range: 3.5-5.1 0:00 (Normal) 58-Bsj-739956:19 BMP BUN 35 mg/dL (Abnormal) Range: 7-18 [...] 254-1320 :43 FECAL OCCULT- Tubes sent home (32987) FECAL OCCULT HGB ASSAY, QUAL, 1-3 SIMULTANEOU neg (Normal) :12 Rapid Flu (51787 x 2) Comments: done BC INFLUENZA IMMUNOASSY [...] was performed using the TPSA method for the[facility] chemistry system.Values obtained with different assay methods [...] GLU 2 HR GLU GTT-2 HOUR from 918:[id number]. Range: 70-120 :05 GLU GTT-1 HOUR 183 mg/dL (Abnormal) Comments: 2HR GTT GLU 1 HR GLU GTT-1 HOUR from 918:A04326K. Range: 120-170 :31 GLU GTT-30 min. 170 mg/dL (Normal) Comments: 2HR GTT GLU 1/2 HR GLU GTT-30 min. from 918:F79193L. Range: 110-170 :00 D BILI 0.09 mg/dL [...] Comments: 2HR GTT FASTING GLU GTT-FASTING from 0919:N51340F. Range: 70-110 Comments: GLUCOSE TOLERANCE TEST Reference [...] was performed using the TPSA method for the[employer] chemistry system.Values obtained with different assay methods [...] disease Coronary artery disease, non-occlusive : Reviewed [employer] Letter Indication: Coronary artery disease, non-occlusive BMI 40.0-44.9, adult : Eprescribed prescriptions (G8553) Indication: BMI 40.0-44.9, adult Impaired fasting glucose : Follow up in 4 months Indication: Impaired fasting glucose Coronary artery disease, non-occlusive : Reviewed [employer] Letter Indication: Coronary artery disease, non-occlusive Hypertension [...] controlled Coronary artery disease, non-occlusive : Reviewed [employer] Grinder Letter Indication: Coronary artery disease, non-occlusive Hypertension [...] glucose Coronary artery disease, non-occlusive : Reviewed [employer] Grinder Letter Indication: Coronary artery disease, non-occlusive 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 Indication: Hypertension with heart disease Impaired fasting glucose : *Diabetes Education Indication: Impaired fasting glucose Nonsmoker : Eprescribed prescriptions (G8553) Indication: Nonsmoker Depression, acute : Reviewed [employer] Letter Indication: Depression, acute Other chronic pain : Reviewed Lab Indication: Other chronic pain Depression, acute : Follow up in 2 weeks Indication: Depression, acute Accidental fall, initial encounter : Follow up in 1 week Indication: Accidental fall, initial encounter Depression : Reviewed Lab Indication: Depression Depression : Reviewed Diagnostic Tests Indication: Depression Depression : Reviewed [employer] Grinder Letter Indication: Depression Cellulitis : Eprescribed prescriptions (G8553) Indication: Cellulitis Cellulitis : Follow up in 1 week Indication: Cellulitis Nonsmoker : Eprescribed prescriptions (G8553) Indication: Nonsmoker Hypertension with heart disease : Reviewed Lab Indication: Hypertension with heart disease Impaired fasting glucose : Follow up in 4 months Indication: Impaired fasting glucose Hypertension with heart disease : Reviewed [employer] Grinder Letter Indication: Hypertension with heart disease Hypertension [...] artery disease Coronary artery disease : Reviewed [employer] Grinder Letter Indication: Coronary artery disease Carotid stenosis : Reviewed [employer]ite Grinder Letter Indication: Carotid stenosis Hypercholesterolemia : Cholesterol [...] artery disease Coronary artery disease : Reviewed Perlite Grinder Letter: sees Dr Maria Indication: Coronary artery disease Impaired fasting glucose : Eprescribed prescriptions (G8553) Indication: Impaired fasting glucose Hypercholesterolemia : Cholesterol mgmt Indication: Hypercholesterolemia Coronary artery disease : Continue Current Prescription(s) Indication: Coronary artery disease Coronary artery disease : Reviewed [employer] Grinder Letter Indication: Coronary artery disease 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 Indication: Hypertension with heart disease Hypertension with heart disease : Follow up in 4 months Indication: Hypertension with heart disease Impaired fasting glucose : Eprescribed prescriptions (G8553) Indication: Impaired fasting glucose Coronary artery disease : Reviewed [employer] Grinder Letter Indication: Coronary artery disease Impaired fasting [...] Indication: Hypercholesterolemia Coronary artery disease : Reviewed [employer] Grinder Letter Indication: Coronary artery disease Impaired fasting [...] artery disease Planned Observations HgA1C , Office (29057)Indication: Impaired fasting glucose On: 90-Jqe-590058:57 Request TSH (58054)Indication: Atrial fibrillation, controlled On: :30 Request URINALYSIS, W/ MICRO (53717)Indication: Hypertension with heart disease On: :30 Request MICROALBUMIN: CREATININE RATIO (50705) AND (06833)Indication: Hypertension with heart disease On: :30 Request METABOLIC PANEL, COMPREHENSIVE (91936)Indication: Hypertension with heart disease On: :30 Request LIPID PANEL (76106)Indication: Coronary artery disease, non-occlusive On: :30 Request CBC W/AUTO DIFF WBC (17335)Indication: Hypertension with heart disease On: :29 Request VITAMIN B-12 (CYANOCOBALAMIN) (34590)Indication: Vitamin B12 deficiency On: :29 Request CALCIFIDIOL (43244) VIT D 25Indication: Vitamin D deficiency On: :29 Request VITAMIN B-12 (CYANOCOBALAMIN) (52188)Indication: Vitamin B12 deficiency On: :36 Request CALCIFIDIOL (49752) VIT D 25Indication: Vitamin D deficiency On: :35 Request TSH (19904)Indication: Impaired fasting glucose On: :34 Request URINALYSIS, W/ MICRO (67996)Indication: Hypertension with heart disease On: :34 Request MICROALBUMIN: CREATININE RATIO (46079) AND (66528)Indication: Hypertension with heart disease On: :34 Request METABOLIC PANEL, COMPREHENSIVE (19352)Indication: Hypertension with heart disease On: :34 Request LIPID PANEL (01990)Indication: Hypercholesterolemia On: :34 Request CBC W/AUTO DIFF WBC (22769)Indication: Hypertension with heart disease On: :34 Request RIBOFLAVIN (B-2) (77775)Indication: Drug intoxication with delirium On: 30-Lwg-892460:09 Request LIPID PANEL (34641)Indication: Hypercholesterolemia On: :35 Request VITAMIN B-12 (CYANOCOBALAMIN) (56497)Indication: Vitamin B12 deficiency On: :28 Request CALCIFIDIOL (79207) VIT D 25Indication: Vitamin D deficiency On: :27 Request MAGNESIUM (50088)Indication: Hypermagnesemia On: :27 Request FECAL OCCULT- Tubes sent home (18839)Indication: Encounter for screening for malignant neoplasm of colon (Renamed from Special screening for malignant neoplasms, colon) On: :03 Request PSA (PROSTATE SPECIFIC ANTIGEN) (V76.44)Indication: Encounter for screening for malignant neoplasm of prostate (Renamed from Screening for prostate cancer) On: 4-Orn-948274:03 Request TSH (86669)Indication: Impaired fasting glucose On: :22 Request URINALYSIS, W/ MICRO (37114)Indication: Impaired fasting glucose On: :22 Request MICROALBUMIN: CREATININE RATIO (81817) AND (98018)Indication: Impaired fasting glucose On: :22 Request METABOLIC PANEL, COMPREHENSIVE (11026)Indication: Impaired fasting glucose On: :21 Request LIPID PANEL (38567)Indication: Hypercholesterolemia On: : Request CBC W/AUTO DIFF WBC (31146)Indication: Impaired fasting glucose On: : Request CALCIFIDIOL (31766) VIT D 25Indication: Vitamin D deficiency On: : Request HEPATIC FUNCTION PANEL (73058)Indication: Elevated liver enzymes On: 32-Akc-747841:29 Request METABOLIC PANEL, COMPREHENSIVE (36716)Indication: Dizzy On: :54 Request CBC W/AUTO DIFF WBC (91880)Indication: Dizzy On: :54 Request FECAL OCCULT- Tubes sent home (92587)Indication: Melena On: :52 Request CALCIFIDIOL (38293) VIT D 25Indication: Dysthymic On: 53-Cki-753842:52 Request TSH (31772)Indication: Hypercholesterolemia On: 68-Hrk-821942:52 Request URINALYSIS, W/ MICRO (28944)Indication: Hypertension with heart disease On: 60-Ohg-857835:52 Request MICROALBUMIN: CREATININE RATIO (69085) AND (92755)Indication: Hypertension with heart disease On: 40-Umw-026155:52 Request METABOLIC PANEL, COMPREHENSIVE (62529)Indication: Hypertension with heart disease On: 06-Ssm-547304:52 Request LIPID PANEL (91328)Indication: Hypercholesterolemia On: 35-Rit-796141:52 Request CBC W/AUTO DIFF WBC (35411)Indication: Hypertension with heart disease On: 27-Lkw-223476:51 Request TSH (08350)Indication: Impaired fasting glucose On: :45 Request URINALYSIS, W/ MICRO (69897)Indication: Impaired fasting glucose On: :45 Request MICROALBUMIN: CREATININE RATIO (07544) AND (28847)Indication: Impaired fasting glucose On: :45 Request METABOLIC PANEL, COMPREHENSIVE (48327)Indication: Impaired fasting glucose On: :45 Request LIPID PANEL (93534)Indication: Impaired fasting glucose On: :45 Request CBC W/AUTO DIFF WBC (81554)Indication: Impaired fasting glucose On: :45 Request CALCIFIDIOL (60609) VIT D 25Indication: Impaired fasting glucose On: :55 Request LIPID PANEL (47406)Indication: Hypertension On: :50 Request TSH (06366)Indication: Impaired fasting glucose On: :50 Request MICROALBUMIN: CREATININE RATIO (55218) AND (31393)Indication: Hypertension On: :50 Request METABOLIC PANEL, COMPREHENSIVE (87869)Indication: Hypertension On: :50 Request MICROALBUMIN: CREATININE RATIO (19139) AND (12024)Indication: Hypertension On: :38 Request URINALYSIS (58897)Indication: Hypertension On: :36 Request CBC WITH MANUAL DIFF (65311)Indication: Hypertension On: :36 Request Metabolic Panel, Comprehensive (33979)Indication: Hypertension On: 90-Ils-66629:36 Request Lipid Panel (89429)Indication: Hypercholesterolemia On: :36 Request MICROALBUMIN: CREATININE RATIO (00787) AND (78373)Indication: Hypertension On: 09-Asw-135931:57 Request URINALYSIS (31058)Indication: Hypertension On: 83-Jvi-427374:57 Request CBC WITH MANUAL DIFF (66997)Indication: Hypertension On: 64-Rbg-964538:56 Request Metabolic Panel, Comprehensive (80984)Indication: Hypertension On: 75-Yvf-564131:56 Request CALCIFEDIOL (63386)Indication: Hypertension On: 86-Hoh-783331:56 Request TSH (57537)Indication: Hypertension On: 36-Kqf-114622:56 Request Lipid Panel (28742)Indication: Hypercholesterolemia On: 37-Wbg-571797:56 Request Lipid Panel (54042)Indication: Hypercholesterolemia On: 19-Msf-164367:13 Request URINALYSIS, W/ MICRO (95176)Indication: Hypertension On: 0-Uuf-274217:02 Request MICROALBUMIN: CREATININE RATIO (71081) AND (12308)Indication: Impaired fasting glucose On: 0-Aee-420205:02 Request CBC W/AUTO DIFF WBC (47527)Indication: Impaired fasting glucose On: 3-Dgi-474667:02 Request METABOLIC PANEL, COMPREHENSIVE (24625)Indication: Impaired fasting glucose On: 7-Ohz-173650: Request PSA (PROSTATE SPECIFIC ANTIGEN) (V76.44)Indication: Benign prostatic hyperplasia with urinary obstruction and other lower urinary tract symptoms On: 15-Jan-20149:55 Request CREATINE KINASE TOTAL (17282)Indication: SOB (shortness of breath) on exertion On: :32 Request Comments: stat D-Dimer (54349)Indication: SOB (shortness of breath) on exertion On: :32 Request CBC (Auto) (05991)Indication: SOB (shortness of breath) on exertion On: :32 Request Troponin I (11346)Indication: SOB (shortness of breath) on exertion On: :31 Request CPK MB FRACTION (31551)Indication: SOB (shortness of breath) on exertion On: 24-Gil-705683:31 Request MICROALBUMIN: CREATININE RATIO (56877) AND (91709)Indication: Impaired fasting glucose On: :10 Request CBC WITH MANUAL DIFF (72807)Indication: Hypertension On: :04 Request LIPID PANEL (12291)Indication: Hypercholesterolemia On: :04 Request METABOLIC PANEL, COMPREHENSIVE (93405)Indication: Hypertension On: :04 Request CBC WITH MANUAL DIFF (72212)Indication: Hypertension On: :28 Request URINALYSIS, W/ MICRO (75024)Indication: Hypertension On: :28 Request TSH (74293)Indication: Dysthymic On: : Request PSA (PROSTATE SPECIFIC ANTIGEN) (V76.44)Indication: Benign prostatic hyperplasia with urinary obstruction and other lower urinary tract symptoms On: :27 Request LIPID PANEL (87875)Indication: Hypercholesterolemia On: : Request METABOLIC PANEL, COMPREHENSIVE (76764)Indication: Hypertension On: :27 Request ASSAY, TROPONIN, QUANTITATIVE (aka Troponin I) (90849)Indication: SOB (shortness of breath) on exertion On: :08 Request Comments: stat D-Dimer (90347)Indication: SOB (shortness of breath) on exertion On: :08 Request Comments: stat URINALYSIS, W/ MICRO (31599)Indication: Edema On: : Request TSH (29630)Indication: Edema On: :06 Request METABOLIC PANEL, COMPREHENSIVE (73915)Indication: Edema On: : Request CBC WITH MANUAL DIFF (11991)Indication: Edema On: : Request URINE BERTHA CULTURE-SUKHWINDER COL COUNT (35775)Indication: PYELONEPHRITIS, ACUTE NOS On: :25 Request LIPID PANEL (84079)Indication: Hypercholesterolemia On: :12 Request METABOLIC PANEL, COMPREHENSIVE (98927)Indication: Hypertension On: :12 Request PSA (PROSTATE SPECIFIC ANTIGEN) (V76.44)Indication: Benign prostatic hyperplasia with urinary obstruction and other lower urinary tract symptoms On: :33 Request URINALYSIS, W/ MICRO (14850)Indication: Hypertension On: :33 Request CBC WITH MANUAL DIFF (14241)Indication: Hypertension On: :33 Request METABOLIC PANEL, COMPREHENSIVE (08475)Indication: Hypertension On: :32 Request LIPID PANEL (78478)Indication: Hypercholesterolemia On: :32 Request CBC WITH MANUAL DIFF (86656)Indication: Hypertension On: :14 Request METABOLIC PANEL, COMPREHENSIVE (35331)Indication: Hypertension On: 6-Zuo-206456:14 Request LIPID PANEL (92624)Indication: Hypercholesterolemia On: :13 Request CBC, PLATELETS & AUT DIFF (32586)Indication: Anemia, unspecified On: 9-Ciz-242903:38 Request Comments: Repeat 3wks beginning june Renal function Panel (49673)Indication: Abnormal blood chemistry On: 9-Uri-978074:35 Request Comments: repeat 3 wks Beginning of June Folate (61339)Indication: Fatigue On: :23 Request VITAMIN B-12 (CYANOCOBALAMIN) (56286)Indication: Fatigue On: :23 Request TSH (26126)Indication: Fatigue On: :23 Request SED RATE ERYTHROCYTE (99906)Indication: Fatigue On: :23 Request RHEUMATOID FACTOR-QUANT (04147)Indication: Fatigue On: :23 Request METABOLIC PANEL, COMPREHENSIVE (65667)Indication: Fatigue On: :23 Request C-REACTIVE PROTEIN (43685)Indication: Fatigue On: : Request CBC (AUTO) (92132)Indication: Fatigue On: : Request CHIQUI (ANTINUCLEAR ANTIBODY) (22473)Indication: Fatigue On: : Request BERTHA CULTURE-OTHER (70838)Indication: Pharyngitis, acute On: :48 Request TSH (20206)Indication: Dysthymic On: :48 Request PSA (PROSTATE SPECIFIC ANTIGEN) (V76.44)Indication: Benign prostatic hyperplasia with urinary obstruction and other lower urinary tract symptoms On: :48 Request METABOLIC PANEL, COMPREHENSIVE (68721)Indication: Hypertension On: :46 Request LIPID PANEL (34394)Indication: Hypercholesterolemia On: :46 Request CBC WITH MANUAL DIFF (23823)Indication: Anemia, unspecified On: :46 Request Metabolic Panel, Basic (37300)Indication: Edema On: :44 Request FOLIC ACID SERUM (10213)Indication: Anemia, unspecified On: :43 Request VITAMIN B-12 (CYANOCOBALAMIN) (25039)Indication: Anemia, unspecified On: :43 Request RETICULOCYTE COUNT MANUL (59771)Indication: Anemia, unspecified On: :43 Request LDH (LD) (LACTATE DEHYDROGENASE) (61697)Indication: Anemia, unspecified On: :43 Request IRON BINDING CAPACITY (TIBC) (97268)Indication: Anemia, unspecified On: :43 Request FERRITIN (60516)Indication: Anemia, unspecified On: :43 Request IRON (52529)Indication: Anemia, unspecified On: :43 Request CBC WITH MANUAL DIFF (07627)Indication: Edema On: :40 Request LIPID PANEL (37261)Indication: Hypercholesterolemia On: :36 Request URINALYSIS W/O MICRO (39779)Indication: Hypertension On: :36 Request TSH (73048)Indication: Hypertension On: :36 Request METABOLIC PANEL, COMPREHENSIVE (06711)Indication: Hypertension On: :36 Request CBC WITH MANUAL DIFF (52408)Indication: Hypertension On: :36 Request PSA (PROSTATE SPECIFIC ANTIGEN) (V76.44)Indication: Benign prostatic hyperplasia with urinary obstruction and other lower urinary tract symptoms On: :36 Request METABOLIC PANEL, COMPREHENSIVE (79347)Indication: Hypertension On: :27 Request LIPID PANEL (34972)Indication: Hypercholesterolemia On: :26 Request HEPATIC FUNCTION PANEL (66178)Indication: Hypercholesterolemia On: :26 Request HEPATIC FUNCTION PANEL (65851)Indication: Hypercholesterolemia On: :52 Request LIPID PANEL (11963)Indication: Hypercholesterolemia On: :52 Request PSA (PROSTATE SPECIFIC ANTIGEN) (V76.44)Indication: Benign prostatic hyperplasia with urinary obstruction and other lower urinary tract symptoms On: 42-Qrs-39083:52 Request URINALYSIS W/O MICRO (15691)Indication: Hypertension On: 95-Itv-573532:23 Request TSH (10088)Indication: Hypertension On: 32-Ywj-639094:23 Request METABOLIC PANEL, COMPREHENSIVE ([id number])Indication: Hypertension On: 78-Nsn-355392:23 Request CBC WITH MANUAL DIFF ([id number])Indication: Hypertension On: 87-Pjp-488149:22 Request LIPID PANEL (04252)Indication: Hypercholesterolemia On: 49-Efv-000775:17 Request HEPATIC FUNCTION PANEL ([id number])Indication: Hypercholesterolemia On: 10-Ujg-089641:17 Request METABOLIC PANEL, COMPREHENSIVE (75961)Indication: Hypertension On: 68-Fmc-861911:50 Request VITAMIN B-12 (CYANOCOBALAMIN) ([id number])Indication: Fatigue On: 15-Cfa-80749:03 Request METABOLIC PANEL, COMPREHENSIVE (76033)Indication: Fatigue On: 70-Gxh-20244:03 Request GLUCOSE TOLERANCE TEST (GTT) 2 hour ([id number])Indication: Fatigue On: :02 Request LIPID PANEL ([id number])Indication: Hypercholesterolemia On: 04-Tuc-18144:10 Request Comments: please send to Dr Shore PSA (PROSTATE SPECIFIC ANTIGEN) ([id number])Indication: Benign prostatic hyperplasia with urinary obstruction and other lower urinary tract symptoms On: :10 Request MICROALBUMIN URINE QUANT ([id number])Indication: Hypertension On: :10 Request URINALYSIS W/O MICRO ([id number])Indication: Hypertension On: :10 Request TSH ([id number])Indication: Dysthymic On: 70-Lqb-75303:10 Request METABOLIC PANEL, COMPREHENSIVE ([id number])Indication: Hypertension On: :10 Request CBC WITH MANUAL DIFF ([id number])Indication: Hypertension On: :10 Request CBC WITH MANUAL DIFF ([id number])Indication: Hypertension On: 68-Yjr-35692:53 Request METABOLIC PANEL, COMPREHENSIVE ([id number])Indication: Hypertension On: 71-Qvy-60488:53 Request URINALYSIS W/O MICRO ([id number])Indication: Hypertension On: :53 Request TSH ([id number])Indication: Hypertension On: 89-Xtm-14551:53 Request LIPID PANEL ([id number])Indication: Hypercholesterolemia On: 54-Ttf-44961:53 Request Planned Encounters Medical; 4 Month FU - On: 01-Mar-2018 8:00 [facility] Jazz Rodas DO, DO, Kathleen Planned Procedures Flu Vaccine (Quadrivalent) On: 14-Feb-2018 Intent 67212Wl: Jazz Rodas DO Comments: Lot #[id number]-L dltd, IMDose prefilled syringegiven by: Cammy reviewed and ABN signed Jazz Rodas DO ELECTROCARDIOGRAM, COMPLETE On: 27-Oct-2017 Intent (ECG) (22204)By: Irvin LAURA, Comments: nsr no acute chg Jazz Ballard DO PNEUM VAC ADLT/IMUMNOSPR, On: 17-Dec-2016 Intent SBC/INTRM (59970)By: Irvin Comments: Lot:[id number]:05/19/18Dose:0.5mgRoute:imSite:l armGiven By:YVETTE signed Jazz LAURA DO, Kathleen [facility] On: 17-Dec-2016 Intent COUNSELING FOR OBESITY, 15 MINUTES (G0447)By: Jazz Rodas DO, DO, Kathleen INTENSIVE BEHAVIORAL THERAPY On: 17-Dec-2016 Intent TO REDUCE CARDIOVASCULAR DISEASE RISK, INDIVIDUAL, DRUO-NS-QUQE, ANNUAL, 15 MINUTES (G0446)By: Jazz Rodas DO, DO, Kathleen Flu Vaccine (Quadrivalent) On: 10-Dec-2016 Intent 25148Fh: Jazz Rodas DO Comments: lot: [id number]: 09/26/17ite/route: L jessika, IMamt: 0.5mlVIS and ABN signed when applicableChelsayana, Jazz Brooks DO ELECTROCARDIOGRAM, COMPLETE On: 04-Aug-2016 Intent (ECG) (00468)By: Irvin LAURA, Comments: sinus yoko - no acute chg Jazz Ballard DO Venous Doppler - LeftBy: Avis On: 23-Apr-2016 Intent Raya PERERA Comments: L lower extremity US DOPPLER VEIN OF EXTREMITY On: 21-Apr-2016 Intent (80943)By: Raya Albarran MD Comments: US doppler right [...] wound centre and Raya Albarran US GROIN (18497)By: Avis PERERA, On: 13-Apr-2016 Intent Raya Comments: US soft tissue of left hip, Rule out abcess. Flu Vaccine (Quadrivalent) On: 12-Dec-2015 Intent 69460Lx: Jazz Rodas DO Comments: lot [id number] exp 10/08/16- R arm Jazz Rodas DO INTENSIVE BEHAVIORAL THERAPY On: 12-Dec-2015 Intent TO REDUCE CARDIOVASCULAR DISEASE RISK, INDIVIDUAL, FOTC-SX-OOCG, ANNUAL, 15 MINUTES (G0446)By: Jazz Rodas DO, DO, Kathleen RBWR-EC-AEOO [facility]IOR[facility] On: 12-Dec-2015 Intent COUNSELING FOR OBESITY, [...] US DOPPLER CAROTID BILATERAL On: 25-Sep-2015 Intent (29013)By: Jazz Rodas DO, DO, Kathleen Cartoid DopplerBy: Irvin LAURA, On: 30-Jul-2015 Intent Jazz Ballard DO Flu Vaccine (Quadrivalent) On: 15-Jan-2015 Intent 36375Hv: Jazz Rodas DO Comments: Lot:[id number]:10/09/15Dose:0.5mLRoute:IMSite:L DltdGiven By:YVETTE signed Jazz Rodas DO EKG ([id number])By: Irvin LAURA, On: 13-Jun-2014 Intent Jazz Ballard DO WPCL-OO-TSIY [facility]IOR[facility] On: 06-Mar-2014 Intent COUNSELING FOR OBESITY, 15 MINUTES (G0447)By: Jazz Rodas DO, DO, Kathleen Prevnar 13 (36145)By: Irvin On: 06-Mar-2014 Jazz Schreiber DO, DO, Comments: lot [id number] 06/2015location L armroute imgiven by - Madisyn and/or MAMI signed Jazz Cartoid DopplerBy: Blanco LAURA, On: 15-Jan-2014 Intent Rupinder A FLU VAC, SPLIT, >3 YEARS, On: 15-Jan-2014 Intent INTRAMUSC (94228)By: Blanco LAURA, Comments: Lot #:[id number] date:12/2015Amount given:0.5mlRoute: IMSite given: left deltoidGiven by: PRECIOUS Serna Rupinder A ADMINISTRATION OF INFLUENZA On: 15-Jan-2014 Intent VIRUS VACCINE (G0008)By: Rupinder Encarnacion DO FLU VAC, SPLIT, >3 YEARS, On: 13-Feb-2013 Intent INTRAMUSC (07006)By: Blanco LAURA, Comments: Lot:[id number]:Dose:0.5mLRoute:IMSite:L DltdGiven By:YVETTE signed Rupinder A IMMUNIZ ADMNIN, 1 VAC, On: 13-Feb-2013 Intent SNGL/COMBO (83742)By: Perla Ruano IMMUNIZ ADMNIN, 1 VAC, On: 08-Feb-2012 Intent SNGL/COMBO (33166)By: Chanel Alamo CNP FLU VAC, SPLIT, >3 YEARS, On: 08-Feb-2012 Intent INTRAMUSC (28108)By: Chanel Alamo CNP DANA (Ankle Brachial Index) On: 14-Jul-2011 Intent (06133)By: Nieves Masters Comments: at DF desk Spirometry (90918)By: Kael On: 01-Jul-2011 Intent Lois PERERA Aerosol Treatment (79139)By: On: 01-Jul-2011 Intent Lois Scruggs MD EKG (00121)By: Kael PERERA, On: 01-Jul-2011 Intent Lois Roberts DANA (Ankle Brachial Index) On: 21-May-2011 Intent (52469)By: Rupinder Encarnacion DO Cartoid DopplerBy: Blanco LAURA, On: 21-May-2011 Intent Rupinder A Comments: august VAC, SPLIT, >3 YEARS, On: 10-Feb-2011 Intent INTRAMUSC (10392)By: Erik UGARTE, Comments: Lot #: [id number] date: 09/20Amount given: 0.5 mlRoute: IMSite given: left deltoidGiven by: TORITO Gonzales IMMUNIZ ADMNIN, 1 VAC, On: 10-Feb-2011 Intent SNGL/COMBO (92815)By: Marlys Valencia RN Eprescribed prescriptions On: 24-Nov-2010 Intent (G8553)By: Rupinder Encarnacion DO Echo CompleteBy: Paz NAIDU, On: 04-Aug-2010 Intent Mera Pulse Oximetry (89421)By: Blanco On: 24-Jul-2010 Intent Rupinder LAURA A Comments: 96 Bio Z (71939)By: Blanco LAURA, On: 24-Jul-2010 Intent Rupinder A Comments: good cardiac output and svr- thoracic fluid ok EKG (59342)By: Rupinder Encarnacion DO On: 24-Jul-2010 Intent A Comments: ekg showed normal sinus rhythym, normal axis, no acute st/t wave changes Echo CompleteBy: Blanco LAURA, On: 24-Jul-2010 Intent Rupinder A DANA (Ankle Brachial Index) On: 24-Jul-2010 Intent (33148)By: Rupinder Encarnacion DO Cartoid DopplerBy: Blanco LAURA, [...] DANA (Ankle Brachial Index) On: 25-Mar-2010 Intent (46230)By: Rupinder Encarnacion DO IMMUNIZ ADMNIN, 1 VAC, On: 15-Jan-2010 Intent SNGL/COMBO (46399)By: Erik UGARTE, Comments: Lot #: [id number] date: mount given: 0.5 mlRoute: IMSite given: left deltoidGiven by: Valeriano Green RN Marlys FLU VACCINE NO PRESERV 3 & > On: 15-Jan-2010 Intent (01866)By: Marlys Valencia RN Cartoid DopplerBy: Blanco LAURA, On: 26-Nov-2009 Intent Rupinder A Comments: sept TDAP VACCINE >7 IM (34501)By: On: 22-Sep-2009 Intent Mera Mullen LPN Comments: Lot #[id number]-8/24/12Site-left deltoidgiven by:NATHALIA Holter Monitor 24 hrsBy: Walker On: 21-Apr-2009 Intent Chanel LOU ELECTROCARDIOGRAM, COMPLETE On: 21-Apr-2009 Intent (ECG) (27989)By: Chanel Alamo CNP FLU VAC, SPLIT, >3 YEARS, On: 07-Jan-2009 Intent INTRAMUSC (88526)By: Harpreet, Comments: Lot #:[id number] date:mount given:0.5mlRoute: IMSite given:left deltGiven by: PRECIOUS Serna IMMUNIZ ADMNIN, 1 VAC, On: 07-Jan-2009 Intent SNGL/COMBO (69143)By: Emili Mullins DANA (Ankle Brachial Index) On: 25-Nov-2008 Intent (95197)By: Uma Altamirano Comments: done>Wf. pt aware. normal findings on both sides. DANA (Ankle Brachial Index) On: 01-Oct-2008 Intent (68939)By: Rupinder Encarnacion DO Cartoid DopplerBy: Blanco LAURA, On: 01-Oct-2008 Intent Rupinder A Comments: sept Pulse Oximetry (17203)By: On: 03-Jul-2008 Intent Chanel Alamo CNP Comments: done BC Aerosol Treatment (53662)By: On: 03-Jul-2008 Intent Ciesa LOCK SETTER, Lori Comments: done BC FLU VAC, SPLIT, >3 YEARS, On: 15-Mar-2008 Intent INTRAMUSC (65666)By: Alicia Allen ADMINISTRATION OF INFLUENZA On: 15-Mar-2008 Intent VIRUS VACCINE (G0008)By: Comments: inj given no complicationslot:[id number]:10/08/08site left deltoddose:0.5mlkatAlicia Easton EKG (65962)By: Rupinder Encarnacion DO On: 27-Dec-2007 Intent A Comments: ekg- with sinus with lvh - left axisd deviation Cartoid DopplerBy: Blanco LAURA, On: 27-Dec-2007 Intent Rupinder A DANA (Ankle Brachial Index) On: 23-Aug-2007 Intent (30734)By: Xiao Busby DANA (Ankle Brachial Index) On: 08-Aug-2007 Intent (36674)By: Rupinder Encarnacion DO DANA (Ankle Brachial Index) On: 02-May-2007 Intent (88827)By: Rupinder Encarnacion DO Flu Vaccine, Split IM On: 24-Jan-2007 Intent (51232)By: Rupinder Encarnacion DO Comments: given o.5cc im in right deltoid lot#[id number] exp.10/09/07-aw Pneumovax (53466)By: Blanco LAURA, On: 24-Jan-2007 Intent Rupinder A Comments: given 0.5cc in right deltoid lot#[id number] exp. 02/20/08-aw Overnight Pulse Ox(71800)By: On: 21-Dec-2006 Intent Xiao Busby Echo CompleteBy: Blanco LAURA, On: 06-Dec-2006 Intent Rupinder A Overnight Pulse OX (11188)By: On: 06-Dec-2006 Intent Rupinder Encarnacion DO EKG (78349)By: Narciso NAIDU, On: 23-Jun-2006 Intent Peg Comments: needed to be done for a preop which is scheduled the end of the month with dr. romero DANA (Ankle Brachial Index) On: 15-Jun-2006 Intent (33134)By: Milady Jay LPN DANA (Ankle Brachial Index) On: 01-Jun-2006 Intent (67671)By: Rupinder Encarnacion DO Comments: see Mila- these needs precerted as the insurance didnt pay last time- I discussed with her DANA (Ankle Brachial Index) On: 01-Mar-2006 Intent (11155)By: Rupinder Encarnacion DO Planned Medications Vitamin B-12 [...] The patient does have durable power of criminal defense attorney and living will. The patient has noticed dropping activities and interests, having problems with memory than others, la ck of energy and thinking most people are better off than them. 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 care are security dispatcher and diesel bus mechanic.Encounter Diagnosis: BMI 38.0-38.9,adult, Nonsmoker, Annual Medicare Physical [...] patient does not have durable power of criminal defense attorney. The patient has noticed lack of energy and thinking most people are better off than them. 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 care are security dispatcher and other:.Encounter Diagnosis: Annual Medicare Phyiscal WITHOUT [...] in bathroom. The patient has completed the [facility] [place] preventative measures: PSA testing (2013) and colonoscopy (2009). The patient does have durable power of criminal defense attorney and living will. The patient has noticed thinking most people are better off than t hem. 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 care are security dispatcher (DR. Maria) and other: (Pain Management- Dr. [...] a day for 2 weeks- and the security dispatcher didnt feel he needed to increase meds [...] back. Pt is seeing Dr. Blake in [place] for this and currently getting injections and [...]
--- OUTSIDE RECORDS SUMMARY | 2018-07-01 19:07 | XMS RPT_ITS ---
:1950 Author Organization [employer] Address [address] [place] [id number] Phone Care Team Providers Name Role Phone Christina Solitario MD Unavailable Reason for Visit Reason For Visit Description Start Date New - 1st visit with practice Preliminary reason for visit data, not yet signed by the author as of lower back pain Preliminary reason for visit data, not yet signed by the author as of Chief Complaint Chief Complaint Description Start Date lower back pain Preliminary chief complaint data, not yet signed by the author as of Instructions Instruction Description Start Date Patient advised to follow-up with Primary Care Physician for BMI management. Plan of Care Type Date Detail Appointment 10:50 [place], [address] [place] [address], [phone], Pending order XR LUMBAR 4VWS FLEX/EX Pending order Albumin Pending order HbA1C Pending order 25-hydroxyvitamin D Medications Medication Instructions Start Stop Generic Name [facility] Provider Date Date CITALOPRAM takes one tab / CITALOPRAM [id number] Christina Bal HYDROBROMIDE 10 once daily 03 HYDROBROMIDRuperto Solitario MD MG TABS B-12 1000 MCG 1 tablet daily / CYANOCOBALAMIN [id number] [place] TABS 25 Pino [employer] PANTOPRAZOLE as directed as / PANTOPRAZOLE [id number] [place] SODIUM 40 MG needed 25 SODIUM [facility] MULTIVIT[facility]IN 1 tablet daily / MULTIPLE [id number] [place] ADULT TABS 25 VITAMINS-MINERALS Pino [employer]ER MODAFINIL 200 1 tablet twice / MODAFINIL 96649554716 [place] MG TABS daily 25 Pino [employer]ER LISINOPRIL 20 1 tablet twice / LISINOPRIL 79603852496 [place] MG TABS daily 25 Pino [employer] LE[employer]ER FUROSEMIDE 40 1 tablet daily / FUROSEMIDE [id number] [place] MG TABS 25 Pino [employer] LE[employer]ER FENOFIBRATE 54 1 tablet daily / FENOFIBRATE [id number] [place] MG TABS 25 Pino [employer]ER ELIQUIS 5 MG 1 tablet twice / APIXABAN [id number] [place] TABS daily 25 Pino [employer]ER ATORVASTATIN 1 tablet daily / ATORVASTATIN 62212983450 [place] CALCIUM 40 MG 25 CALCIUM Pino TABS [employer] ATENOLOL 50 MG 1 tablet daily / ATENOLOL 36647614804 [place] TABS 25 Pino [employer]ER ADULT ASPIRIN 1 tablet daily / ASPIRIN 88855446476 [place] EC LOW STRENGTH 25 Pino 81 MG TBEC [employer]ER Conditions or Problems Problem Name Problem Code Onset Status Entry Provider Comment Standard Annotate Date Date Description 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 A Disorder of intolerance (SNOMED CT) 0/03 0/03 Kassi PERERA carbohydrate metabolism Vitamin D 68387731 Active Christina A Vitamin D deficiency (SNOMED CT) 0/03 0/03 Kassi MD deficiency BMI 564047133 Christina A Body mass index 40.0-44.9, (SNOMED CT) 0/03 0/03 Diulus MD 40+ - severely adult obese BMI greater 734575114 Christina A Body mass index than 40 (SNOM[address] CT) 0/03 0/03 Diulus MD 40+ - severely obese Spinal 55324238 Active Christina A Spinal stenosis stenosis of (SNOMED CT) 0/03 0/03 Kassi PERERA of lumbar region lumbar region with neurogenic claudication 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 Christina A Lumbar hesis, 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 (SNOMED 0/03 0/03 Kassi PERERA spondylolisthesi lumbar CT) s region Allergies, Adverse Reactions, Alerts Observed no known allergies at Social History Concept Description Observation Name Observation Value Units Start Date Alcohol intake ALCOHOL COMM socially Preliminary social history data, not yet signed by the author as of Alcohol use ETOH USE Yes Preliminary social history data, not yet signed by the author as of Vital Signs Date Name Value Unit Description BMI (Body Mass 40.92 kg/m2 Body Mass Index Index) [Ratio] Preliminary vital sign data, not yet signed by the author as of BP Diastolic 73 mm[Hg] blood pressure, diastolic Preliminary vital sign data, not yet signed by the author as of BP Systolic 128 mm[Hg] blood pressure, systolic Preliminary vital sign data, not yet signed by the author as of Heart Rate 71 /min pulse rate E&M Preliminary vital sign data, not yet signed by the author as of Height 65 [in_us] height E&M Preliminary vital sign data, not yet signed by the author as of Height 165 cm height in centimeters E&M Preliminary vital sign data, not yet signed by the author as of Weight Measured 245 [lb_av] weight E&M Preliminary vital sign data, not yet signed by the author as of Weight Measured 111 kg weight in kilograms E&M Preliminary vital sign data, not yet signed by the author as of Results Date Name Value Unit Range Flag Description Office Visit: New - 1st visit with practice, Rm: PT2 MEDS REVIEW Done Documentation of current medications (procedure) Preliminary observation data, not yet signed by the author as of Preliminary observation data, not yet signed by the author as of MRI HX of the lumbar MRI (magnetic spine on resonance 10/22/2017 at imaging) history [facility] Preliminary observation data, not yet signed by the author as of Clinical Summary: HMSPatientID OOP account number Procedures Code Procedure Name Date Entry Date E0143 WALKER W/ WHEELS (INVACARE) G8509 Pain assessment documented as positive - no follow-up/reason not given G8427 Current medications documented 1036F Tobacco screening was negative - non user G8417 BMI documented as above normal parameters - follow-up documented G8783 Blood pressure within normal parameters - no follow-up required [facility]-[id number] Patient Encounter Medications Administered No information available. Immunizations No information available. Advance Directives There may be information available, but it has not been provided by the sender. Assessments There may be information available, but it has not been provided by the sender. Review of Systems There may be information available, but it has not been provided by the sender. Family History There may be information available, but it has not been provided by the sender. History of Past Illness There may be information available, but it has not been provided by the sender. History of Present Illness There may be information available, but it has not been provided by the sender.
--- OUTSIDE RECORDS SUMMARY | 2018-07-01 19:11 | XMS RPT_ITS | Continuity of Care Document ---
:1950 Author Organization [facility] Address [address] [facility] [address] [place] [address] Phone Care Team Providers Name Role Phone Jazz Rodas DO Unavailable [facility], [facility] Unavailable Dr. Jose Antonio Mehta Unavailable Fabrizio Bryant Unavailable Unavailable Sharonda Israel LPN Unavailable Unavailable Mariasbel George Unavailable Unavailable EVANGELISTA Weeks Unavailable Unavailable Elle Camacho LPN Unavailable Unavailable Unavailable Unavailable Problems Name Dates [...] artery disease, 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, 414.00) Comments: bypass 1997/ stents placed -- cath 2011 still various [...] 724.03) Comments: s/p back surgery february 2018- Status: Active Macrocytosis without anemia (D75.89, 289.89) [...] Extended Release 24 Hour 1 (one) Tablet Tablet qd for 7 days for 0 days Quantity: 7 {Tablet} Refills: 0 Ordered:04-Nov-2017 Aditi Rodas DO, DO, Kathleen Start : 04-Nov-2017 Active BuPROPion HCl ER (XL) 300 MG Oral Tablet Extended Release 24 Hour 1 (one) Tablet Tablet qd after completed 150mg for 7 days for 0 days Quantity: 30 {Tablet} Refills: 3 Ordered:07-Nov-2017 Aditi Rodas DO, DO, Kathleen Start : 07-Nov-2017 Active CeleXA 10 MG Oral Tablet 1 (one) Tablet Tablet daily for 30 days Quantity: 30 [...] Sravani Mullins Vitamin D-Vitamin K Oral Capsule 53774N Active Zoloft 50 MG Oral Tablet 2 [...] Quantity: 28 {Tablet} Refills: 0 Ordered:25-Feb-2017 Chanel Cardoso CNP Start : 25-Feb-2017 End : 11-Mar-2017 [...] Quantity: 10 {Tablet} Refills: 0 Ordered:08-Feb-2012 Chanel Cardoso CNP Start : 08-Feb-2012 End : 18-Feb-2012 [...] : 29-Sep-2015 End : 26-Nov-2015 Inactive ZOSTAVAX, 20927DSG/0.65ML (Subcutaneous Solution Reconstituted) 1 For Solution dose [...] Visit Report Result: Comments: See Note; NOTES: [facility] [address] [place], [place] [address]e. [address] [place] [address] OFFICE VISIT Date of Service: 02/28/18 MR#: [id number] Acct: [id number] Name: LETHA DEUTSCH Rep #: [id number] : 1950 Provider: Hyun Iglesias Age/Sex: 67/M Location: [facility] [place] Status: Signed HPI HPI Chief Complaint: Acute [...] Visit Reasons: PER PK, PRIOR TO SURGERY Wax Pumper Required: No Accompanied by: None Is patient [...] . Assessment AND Plan 1. 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 transplanted heart: ute mountain heart Essential hypertension I10 Hypertension type: essential hypertension Pure hypercholesterolemia E78.00; E78.0 Hyperlipidemia type: pure hypercholesterolemia Occlusion and stenosis of left carotid artery I65.22 PAD (peripheral artery disease) I73.9 Atrial fibr illation and flutter I48.91; I48.92 Renal disease N28.9 Coding Level of Care Code Off vis,est,level 4 Diagnoses Atherosclerosis of [place] mountain coronary artery of [place] mountain heart without angina pectoris I25.1 0 [place] vs. transplanted heart: ute mountain heart Essential hypertension I10 Hypertension type: essential [...] Visit Report Result: Comments: See Note; NOTES: [facility] [address] [place], [place] [address]car[place] [address] OFFICE VISIT Date of Service: 02/20/18 MR#: [id number] Acct: [id number] Patient: LETHA DEUTSCH Rep #: [id number] : 1950 Provider: Babatunde Maria MD Age/Sex: 67/M Location[place] [facility] [place] Status: Signed Intake Intake Visit Reasons: ROSE [...] f/u in 1-2 weeks. Patient agrees. 02/21/18 3657 <Electronically signed by Hyun Iglesias PA> Date Hyun Bal Lorirussellnancy Signature: Date (if applicable) CC: 16-Feb-2018 Emergency Department Summary Result: Comments: See Note; NOTES: [facility] Medical Records Department [address] [place] [address] Emergency Department Summary 02/16/18 1723 MR#: [id number] Acct: [id number] Name: LETHA DEUTSCH Rep #: [id number] : 1950 67 From: Charlie Lyles MD [...] inju ry This note was generated with Photofyation software. It may contain incorrect words, spelling, [...] your Primary Care Provider. Call [facility] ([phone]) or report to the closest Emergency Room. Call 911 if necessary. 02/16/18 184 5 <Electronically signed by Charlie Lyles MD> Date Charlie Lyles MD Cosigner Signature (If Indicated): Date CC: Jazz Rodas DO 09-Nov-2017 Carotid Duplex Ultrasound Result: Comments: See Note; NOTES: [facility] Cardiovascular Services [address] [place] [address] Carotid Duplex Ultrasound 11/09/17 1247 MR#: [id number] Acct: [id number] Name: LETHA MASON Rep #: [id number] : 1950 67 From: Kaiser Awan MD Attending Dr: Babatunde Maria MD Status: REG [facility] Ordering Dr: Babatunde Maria MD Date: 11/09/17 Location: [facility] Sex: M C Admitted: R t. [...] the left vertebral artery. Procedure Carotid Duplex 56888. The study was technically difficult. Exam performed [...] Dictated: 11/09/17 1247 Date Transcribed: 11/09/17 1516 Sand Hauler: Signed 27-Oct-2017 Cardiology Visit Report Result: Comments: See Note; NOTES: [facility] 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 transplanted heart: ute mountain heart Essential hypertension I10 Hypertension type: essential hypertension Atrial fibrillation and flutter I48. 91; I48.92 Occlusion and stenosis of left carotid artery I65.22 Pure hypercholesterolemia E78.00; E78.0 Hyperlipidemia type: pure hypercholesterolemia Coding Level of Care Code Off vis,est,level 4 Di agnoses Atherosclerosis of coronary artery bypass graft of ute mountain heart without angina pectoris I25.810 [place]iana vs. transplanted heart: ute mountain heart Essential hypertension I10 Hypertension type: essentia l hypertension Atrial fibrillation and flutter I48.91; I48.92 Occlusion and stenosis of left carotid artery I65.22 Pure hypercholesterolemia E78.00; E78.0 Hyperlipidemia type: pure hypercholesterolemia 10/27/17 0935 <Electronically signed by Babatunde Maria MD> Date Babatunde Maria MD Cosigner Signature: Date (if applicable) CC: Jazz Rodas DO 22-Oct-2017 Spine Lumbar (Routine) Result: Comments: See Note; NOTES: [facility] Imaging Services [address] [place] [address] Spine Lumbar (Routine) MR#: [id number] Acct: [id number] Name: LETHA DEUTSCH Rep #: [id number] : 1950 M 66 From: Roberto Lunsford MD PCP: Jazz Rodas DO Status: REG CLI Study: Spine Lumbar (Routine) Date of Exam: 10/22/17 Exam# [id number] Ordering Dr: Brooklynn Ryan VEHICLE SALES PROFESSIONAL-Karen STUDY: MRI L UMBAR SPINE WITHOUT CONTRAST [...] , CC: Brooklynn Ryan; Jazz Rodas DO Sand Hauler: Signed 14-Apr-2017 Cardiology Visit Report Result: Comments: See Note; NOTES: [address] [place] [address] OFFICE VISIT Date of Service: 04/14/17 MR#: [id number] Acct: [id number] Name: LETHA DEUTSCH Rep #: [id number] : 1950 Provider: Hyun Iglesias Age/Sex: 66/M Location: [facility] [place] Status: Signed HPI 6 M FU: [...] brachial Intake Visit Reasons: 6 M FU Wax Pumper Required: No Accompanied by: None Is patient [...] carotid artery (Chronic) Atherosclerotic heart disease of [place] mountain coronary artery without angina pectoris (Chronic) HTN [...] Atherosclerosis of coronary artery bypass graft of [place] mountain heart without angina pectoris I25.810; I25.810; I25.810 [...] prior to saving. 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) 1018 <Electronically signed by Hyun TOMPKINS> Date Hyun TOMPKINS 04/14/17 1020<Electronically signed by Babatunde Maria MD> Cosigner Signature: Date (if applicable) Babatunde Maria MD CC: Jazz Irvin LAURA 23-Jun-2016 Brain/Head without Contrast Result: Comments: See Note; NOTES: [facility] Imaging Services [address] [place] [address] Verdana 4d Brain/Head without Contrast MR#: [id number] Acct: [id number] Name: [facility] Rep #: [id number] : 1950 M 65 From: Chago Loera MD PCP: Jazz Rodas DO Status: REG ER Study: Brain/Head without Contrast Date of Exam: 06/23/16 Exam# [id number] Ordering Dr: Isiah Gloria MD STUDY: CT [...] 06/23 at 20:16 EDT , Service support [phone], N.B. : The above information has been verbally conveyed by Chago Loera MD to dr gloria, Referring Physician, on 20:19:35 (ET). CC: Emili Gloria MD; Jazz Rodas DO Sand Hauler: Signed 23-Jun-2016 Chest 1 View Result: Comments: See Note; NOTES: [facility] Imaging Services [address] [place] [address] Verdana 4d Chest 1 View MR#: [id number] Acct: [id number] Name: LETHA DEUTSCH Rep #: [id number] : 1950 65 From: Chago Loera MD PCP: Jazz Rodas DO Status: REG ER Study: Chest 1 View Date of Exam: 06/23/16 Exam# [id number] Ordering Dr: Emili Gloria MD STUDY: X-RAY [...] MD at 20:28 EDT , Service support [phone], CC: Emili Gloria MD; Jazz Rodas DO Sand Hauler: Signed 09-Jun-2016 Pulmonary Function Report Comp Result: Comments: See Note; NOTES: [facility] Pulmonary Services/Neurology [address] [place] [address] Pulmonary Function Test (Comp) MR#: [id number] Acct: [id number] Name: LETHA DEUTSCH Rep #: [id number] : 1950 65 From: Rodolfo Palacios DO Referring Dr: Rodolfo Palacios D.O. Status: REG CLI Ordering Dr: Rodolfo Palacios DO Date: 06/08/16 Location: [facility] Sex: M C DATE OF SERVICE: INTRODUCTION: [...] DO Karen Gurrola C: T: NTS JOB: [id number] 06/09/16 1357 &# 60;Electronically signed by Rodolfo Palacios DO> Date Rodolfo Palacios DO CC: Rodolfo Palacios D.O.; Jazz Rodas DO Date Dictated: 06/09/16829 Date Transcribed: 06/09/16829 Sand Hauler: Signed 07-Jun-2016 Chest PA and Lateral Result: Comments: See Note; NOTES: [facility] Imaging Services [address] [place] [address] Verdana 4d Chest PA and Lateral MR#: [id number] Acct: [id number] Name: LETHA DEUTSCH p #: [id number] : 1950 65 From: Real Miller MD PCP: Jazz Rodas DO Status: REG CLI Study: Chest PA and Lateral Date of Exam: 06/07/16 Exam# [id number] Ordering Dr: Hyun Iglesias PA STUDY: X-RAY [...] MD at 16:15 EST , Service support [phone], CC: Jazz Rodas DO; Hyun Iglesias Sand Hauler: Signed 01-Jun-2016 Carotid Duplex Ultrasound Result: Comments: See Note; NOTES: [facility] Cardiovascular Services [address] [place] [address] Carotid Duplex Ultrasound 06/01/16 1000 MR#: [id number] Acct: [id number] Name: LETHA MASON Rep #: [id number] : 1950 65 From: Cassi Rousseau MD Attending Dr: Rodolfo Palacios D.O. Status: REG CLI Ordering Dr: Gennaro Larsen MD Date: 06/01/16 Location: [facility] Sex: M C Admit alcon: Reason [...] the left vertebral artery. Procedure Carotid Duplex 17131. Technically difficult due to body habitus. Exam [...] Dictated: 06/01/16 1000 Date Transcribed: 06/01/16 1434 Sand Hauler: Signed 01-Jun-2016 Echocardiogram Complete Result: Comments: See Note; NOTES: [facility] Cardiovascular Services [address] [place] [address] Echo Complete 06/01/16 09 MR#: [id number] Acct: [id number] Name: LETHA DEUTSCH Rep #: [id number] : 1950 65 From: Babatunde Maria MD [...] Dictated: 06/01/16 0909 Date Transcribed: 06/01/16 1251 Sand Hauler: Signed 26-May-2016 6 Minute Walk Test Result: Comments: See Note; NOTES: [facility] Pulmonary Services/Neurology [address] [place] [address] MR#: [id number] Acct: [id number] Name: LETHA DEUTSCH Rep #: [id number] : 1950 65 From: Rodolfo Palacios DO Referring Dr: Rodolfo Palacios D.O. Date: Ordering Dr: Sex: M C Location: PSN PSN 6 Minute Walk Test - 6 Minute Walk Test 6 Minute Walk Test: 6 Minute Walk Test PSN :6-Minute Walk Test Start: 05/25/16 12:52 Freq: Status: Active Document 05/25/16 12:52 LORENA (Rec: 05/25/16 12:54 LORENA [id number]) 6 Minute Walk Test Date Performed 05/25/16 [...] CC: Date Dictated: 05/26/16946 Date Transcribed: 05/26/16946 Sand Hauler: Rodolfo Palacios DO Signed 21-Apr-2016 Venous Duplex Lower Extremity Result: Comments: See Note; NOTES: [facility] Cardiovascular Services [address] [place] [address] Venous Duplex US, Unilateral 04/21/16 1619 MR#: [id number] Acct: [id number] Name: LETHA ARTHUR Rep #: [id number] : 1950 65 From: Kwaku Ahmadi MD [...] 7 Date Kwaku Ahmadi MD CC: Jazz Albarran Date Dictated: 04/21/16 1619 Date Transcribed: 04/21/16 1827 Sand Hauler: Signed 16-Apr-2016 Pelvis WITH IV Contrast Result: Comments: See Note; NOTES: [facility] Imaging Services [address] [place] [address] Verdana 4d Pelvis WITH IV Contrast MR#: [id number] Acct: [id number] Name: LETHA DEUTSCH Rep #: [id number] : 1950 M 65 From: Gurpreet De Anda DO PCP: Jazz Rodas DO Status: REG CLI Study: Pelvis WITH IV Contrast Date of Exam: 04/16/16 Exam# [id number] Ordering Dr: Jazz Rodas STUDY: CT PELVIS [...] De Anda DO at 9:03 EST Tel [phone], Service support [phone], CC: Ivory Rodas DO Sand Hauler: Signed 14-Apr-2016 Other BP Soft Tissue Result: Comments: See Note; NOTES: [facility] Imaging Services [address] [place] [address] Verdana 4d Other BP Soft Tissue MR#: [id number] Acct: [id number] Name: LETHA DEUTSCH Re p #: [id number] : 1950 M 65 From: Gurpreet Acunaon PCP: Jazz Rodas DO Status: REG CLI Study: Other BP Soft Tissue Date of Exam: 04/14/16 Exam# [id number] Ordering Dr: Raya Albarran STUDY: GALINDO PERFICIAL [...] Anda DO 27/04/03 at 12:37 EST Tel [phone], Service support [phone], CC: Jazz Rodas DO; Raya Albarran Sand Hauler: Signed 18-Feb-2016 12 Lead Electrocardiogram Result: Comments: See Note; NOTES: [facility] Cardiovascular Services [address] [place] [address] 12 Lead EKG 02/16/16 1238 MR#: [id number] Acct: [id number] Name: LETHA DEUTSCH Rep #: [id number] : 1950 65 From: Johnie Montaño MD [...] ECG Confirmed by SCOTT PERERA, JOHNIE ([id number]), acquisitions editor BECK DOSS ([id number]) on 02/18/2016 2:53:30 PM Referred By: EDWIN Confirmed By:JOHNIE MONTAÑO MD 02/18/16 1453 Date Johnie Montaño MD CC: Jazz Rodas DO Date Dictated: 02/16/16 1238 Date Transcribed: 02/16/16 1238 Sand Hauler: Signed 17-Feb-2016 Operative Report Result: Comments: See Note; NOTES: [facility] Medical Records Department [address] [place] [address] Operative Report MR#: [id number] Acct: [id number] Name: LETHA DEUTSCH Rep #: [id number] : 1950 65 From: Rodolfo Palacios DO [...] issues including a triple bypass surgery at [facility] in 1996 followed by an ablation procedure [...] a 200 joules synchronized cardioversion by Dr. Mraia at bedside. This was successful in achieving normal sinus rhythm. This was confirmed by EKG. The patient was monitored until 12:50, at which time he reached his baseline mental status and function. The patient tolerated the procedure well. COMPLICATIONS: None. ESTIMATED BLOOD LOSS: None. REC OMMENDATIONS: Okay to recover in the usual fashion. DO Karen Gurrola C: Referring Provider . T: RACHAEL JOB: [id number] 02/17/16 1243 <Electronically signed by Rodolfo Palacios DO> Date ____ Rodolfo Palacios DO Cosigner Signature (If Indicated): Date CC: Rodolfo Palacios D.O.; Jazz Rodas DO Da te Dictated: 02/16/161258 Date Transcribed: 02/16/161258 Sand Hauler: Signed 17-Feb-2016 Operative Report Result: Comments: See Note; NOTES: [facility] Medical Records Department [address] [place] [address] Operative Report MR#: [id number] Acct: [id number] Name: LETHA DEUTSCH Rep #: [id number] : 1950 65 From: Babatunde Maria MD PCP: Jazz Rodas DO Status: [facility] DATE OF SERVICE: PROCEDURE: DC cardioversion. INDICATIONS: [...] Babatunde Maria MD T: NTS JOB : [id number] 02/17/16 0833 <Electronically signed by Babatunde Maria MD> Date Babatunde Maria MD Cosigner Signature (If Indicated): Date __ CC: Babatunde Maria MD; Jazz Rodas DO Date Dictated: 02/16/161325 Date Transcribed: 02/16/161325 Sand Hauler: Signed 01-Jan-2016 Operative Report Result: Comments: See Note; NOTES: [facility] Medical Records Department [address] [place] [address] Operative Report MR#: [id number] Acct: [id number] Name: LETHA DEUTSCH Rep #: [id number] : 1950 65 From: Babatunde Maria MD PCP: Jazz Rodas DO Status: REG [facility] DATE OF SERVICE: PROCEDURE: DC cardioversion. INDICATION: [...] followup. Babatunde Maria MD T: NTS JOB: [id number] 01/01/16 0813 <Electronically signed by Babatunde Maria MD> Date Babatunde Maria MD Cosigner Signature (If Indicated): Date CC: Babatunde Maria MD; Jazz Rodas DO Date Dictated: 12/29/15 1143 Date Transcribed: 12/29/15 1143 Sand Hauler: Signed 31-Dec-2015 Consultation Result: Comments: See Note; NOTES: [facility] Medical Records Department [address] [place] [address] Consultation MR#: [id number] Acct: [id number] Name: LETHA DEUTSCH Rep #: [id number] : 1950 65 From: Zia Alvarenga MD PCP: Jazz Rodas DO Status: REG [facility] DATE OF SERVICE: 12/29/2015 BRIEF HISTORY OF PRESENT ILLNESS: The patient is a 65-year-old male, cu rrently under the care of Dr. Maria, who presents for elective KAYLEE and cardioversion secondary to atrial fibrillation. The patient does have a long history of atrial fibrillation and cardiac issues incl uding a triple bypass at [facility] in 1996, atrial ablation in 2011 at [...] MD Primary Care Physician T: RACHAEL JOB: [id number] 12/31/15 0622 <Electronically signed by Zia Alvarenga MD> Date Zia bond MD Cosigner Signature (If Indicated): Date CC: Zia Alvarenga MD; Babatunde Maria MD; Jazz Rodas DO Date Dictated: 12/29/151436 Date Transcri bed: 12/29/151436 Sand Hauler: Signed 29-Dec-2015 Echo Transesophageal (KAYLEE) Result: Comments: See Note; NOTES: [facility] Cardiovascular Services [address] [place] [address] Echo Transesophageal (KAYLEE) 12/29/15 1045 MR#: [id number] Acct: [id number] Name: LETHA DARBY Rep #: [id number] : 1950 65 From: Babatunde Maria MD Attending Dr: Babatunde Maria MD Status: [facility] Ordering Dr: Babatunde Maria MD Date: 12/29/15 Location: [facility] Sex: M C Admitted: Lissette marian For Study: A. fib Medication KAYLEE probe passed without difficulty. Cetacaine Topical [place] given X3 orally. Versed 2 mg given [...] Dictated: 12/29/15 1045 Date Transcribed: 12/29/15 1237 Sand Hauler: Signed 20-Nov-2015 OT D/C Summary Result: Comments: See Note; NOTES: [facility] [address] [place] [address] Fax REHABILITATION SERVICES ДМ[facility]ТРИ[facility]ARDINER SUMMARY MR#: [id number] Acct: [id number] Name: LETHA DEUTSCH Rep #: [id number] : 1950 65 From: Linda Blunt Referring [...] of their discharge status. - Objective Objective/Function: Doughnut Batter Mixer: R: 95# L: 80#. Lat Pinch: R:26# [...] the izquierdo to regaining sensation and strength. Doughnut Batter Mixer: R: 95# L: 80#. Lat Pinch: R:26# L:10#. Tripod Pinch: R:18# L:8#. Gram Abduction: R:375; L: 200. Adduction: R: 800; L:600. Monofilaments: L Th:3.84. L IF:3.22. L MF:3.22. L RF:3.22/4.08. L LF:4.08. In mariano nd manipulation (palm to fingers and fingers to palm) appear normal. If there are questions or concerns regarding this patient's occupational therapy, please fell free to call me at [phone]. Thank you for the referral of this patient. Sincerely, Linda Blunt <Electronically signed by Linda Blunt > 11/20/15 1518 CC: Jazz Rodas DO; Jorge Luis Kerr MD MG Signed 20-Nov-2015 OT General Evaluation Result: Comments: See Note; NOTES: [facility] [address] [place] [address]. [address] [place] [address] Fax REHABILITATION SERVICES IN ITIAL EVALUATION MR#: [id number] Acct: [id number] Name: LETHA DEUTSCH Rep #: [id number] : 1950 65 From: Linda Blunt Referring Dr.: Jorge Luis Kerr MD Status: REG RCR Insurance: MEDICARE PA RT A B Eval Date: [employer] Patient's Visit Information LETHA DEUTSCH is a [...] trans position on August 12, 2015 at [place]. Pt. experienced sudden numbness and falling asleep" of L elbow and hand before the surgery. Pt. is retired and worked at [employer] for 34 years. 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 Pt. is R-handed [...] Elbow: B 5/5 Wrist: R:5/5; L: 4+/5 Doughnut Batter Mixer: R:85# L:80# Lateral Pinch: R:22# L:12# Tripod [...] to be FAXED BACK to us at [phone] for Med icare purposes. Please let me [...] W/WO Contrast Result: Comments: See Note; NOTES: [facility] Imaging Services [address] [place] [address] Verdana 4d CTA Head W/WO Contrast MR#: [id number] Acct: [id number] Name: LETHA MASON Rep #: [id number] : 1950 M 65 From: Cecilio Castillo PCP: Jazz Rodas DO Status: REG CLI Study: CTA Head W/WO Contrast Date of Exam: 11/06/15 Exam# [id number] Ordering Dr: Linnea Johnson VEHICLE SALES PROFESSIONAL-C STUDY: CTA OF THE BRAIN REASON FOR [...] There is no demonstrated aneurysm of the tangirnaq of [place]. There is no demonstrated abnormality of the visualized brain. 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 Mi ld atherosclerotic plaque of the bilateral intracranial carotid arteries. Electronically Signed: Cecilio Castillo MD at 11:58 EDT Tel , Service support [phone], Fax CC: Linnea Hall; Jazz Rodas DO Sand Hauler: Signed 06-Nov-2015 CTA Head W/WO Contrast Result: Comments: See Note; NOTES: [facility] Imaging Services [address] [place] [address] Verdana 4d CTA Head W/WO Contrast MR#: [id number] Acct: [id number] Name: RUBY LIEBERMANLETHA Hickey Rep #: [id number] : 1950 M 65 From: Cecilio Castillo PCP: Jazz Rodas DO Status: REG CLI Study: CTA Head W/WO Contrast Date of Exam: 11/06/15 Exam# [id number] Ordering Dr: Linnea Johnson STUDY: CTA OF [...] There is no demonstrated aneurysm of the tangirnaq of [place]. There is no demonstrated abnormality of the visualized brain. CC: Linnea Hall; Jazz Rodas DO Sand Hauler: Signed 06-Nov-2015 CTA Neck W/WO Contrast Result: Comments: See Note; NOTES: [facility] Imaging Services [address] [place] [address] Verdana 4d CTA Neck W/WO Contrast MR#: [id number] Acct: [id number] Name: LETHA MASON Rep #: [id number] : 1950 M 65 From: Cecilio Castillo PCP: Jazz Rodas DO Status: REG CLI Study: CTA Neck W/WO Contrast Date of Exam: 11/06/15 Exam# [id number] Ordering Dr: Linnea Johnson VEHICLE SALES PROFESSIONAL-C STUDY: CTA NECK WITH CONTRAST REASON FOR [...] at 11:53 EDT Tel , Service support [phone], CC: Linnea Hall; Jazz Rodas DO Sand Hauler: Signed 06-Nov-2015 CTA Neck W/WO Contrast Result: Comments: See Note; NOTES: [facility] Imaging Services [address] [place] [address] Verdana 4d CTA Neck W/WO Contrast MR#: [id number] Acct: [id number] Name: LETHA MASON Rep #: [id number] : 1950 M 65 From: Cecilio Castillo PCP: Jazz Rodas DO Status: REG CLI Study: CTA Neck W/WO Contrast Date of Exam: 11/06/15 Exam# [id number] Ordering Dr: Linnea Johnson [employer] PROFESSIONAL-C STUDY: CTA NECK WITH CONTRAST REASON FOR [...] artery. CC: Linnea Hall; Jazz Rodas DO Sand Hauler: Signed 30-Sep-2015 Brain W/WO Contrast Result: Comments: See Note; NOTES: [facility] Imaging Services [address] [place] [address] [address] 4d Brain W/WO Contrast MR#: [id number] Acct: [id number] Name: LETHA WHEELER Rep #: [id number] : 1950 64 From: Cierra Doss MD PCP: Jazz Rodas DO Status: REG CLI Study: Brain W/WO Contrast Date of Exam: 09/30/15 Exam# [id number] Ordering Dr: Prakash Mccarty MD STUDY: MRI [...] MD at 13:08 EDT , Service support [phone], CC: Isaac Mccarty MD; Jazz Rodas DO Sand Hauler: Signed 28-Sep-2015 Carotid Duplex Ultrasound Result: Comments: See Note; NOTES: [facility] Cardiovascular Services [address] [place] [address] Carotid Duplex Ultrasound 09/25/15 1411 MR#: [id number] Acct: [id number] Name: LETHA DEUTSCH Rep #: [id number] : 1950 64 From: Rian Levi MD [...] the left vertebral artery. Procedure Carotid Duplex 75763. Techncially difficult due to body habitus. Exam performed in department. Interpretation Summary Mild (<50%) stenosis right extracranial internal carotid. Mild (<50%) stenosis l eft extracranial internal carotid. Flow within the vertebral arteries is antegrade bilaterally. Ordering Physician: Jazz Rodas Performed By: Karon Harris RVT 09/28/152157 Date Rian Levi MD CC: Jazz Rodas DO Date Dictated: 09/25/15 1411 Date Transcribed: 09/28/152157 Sand Hauler: Signed 25-Sep-2015 Brain/Head without Contrast Result: Comments: See Note; NOTES: [facility] Imaging Services [address] [place] [address] [place] 4d Brain/Head without Contrast MR#: [id number] Acct: [id number] Name: LETHA DEUTSCH Rep #: [id number] : 1950 64 From: Juli Klein MD PCP: Jazz Rodas DO Status: REG CLI Study: Brain/Head without Contrast Date of Exam: 09/25/15 Exam# [id number] Ordering Dr: Jazz Rodas DO STUDY: CT [...] at 14:19 EDT Tel cf, Service support [phone], CC: Jazz Rodas DO Sand Hauler: Signed 17-Sep-2015 Operative Report Result: Comments: See Note; NOTES: [facility] Medical Records Department [address] [place] [address] Operative Report MR#: [id number] Acct: [id number] Name: TYREL DEUTSCH Rep #: [id number] : 1950 64 From: Babatunde Maria MD [...] office. Babatunde Maria MD T: NTS JOB: [id number] 09/17/15804 <Electronically sig catrina by Babatunde Maria MD> Date Babatunde Maria MD Cosigner Signature (If Indicated): Date CC: Babatunde Maria MD; Jazz Irvin LAURA Date Dictated: 09/16/15 1100 Date Transcribed: 09/16/15 1100 Sand Hauler: Signed 17-Sep-2015 Operative Report Result: Comments: See Note; NOTES: [facility] Medical Records Department [address] [place] [address] Operative Report MR#: [id number] Acct: [id number] Name: [facility] Ruperto Rep #: [id number] : 1950 64 From: Zia Alvarenga MD [...] T: [facility] JOB: [id number] 09/17/15 0608 <Electronically signed by Zia Alvarenga MD> Date Zia Alvarenga MD Cosigner Signature (If I ndicated): Date CC: Zia Alvarenga MD; Jazz Rodas DO Date Dictated: 09/16/155 Date Transcribed: 09/16/151114 Sand Hauler: Signed 09-Sep-2015 Chest PA and Lateral Result: Comments: See Note; NOTES: [facility] Imaging Services [address] [place] [address] Verdana 4d Chest PA and Lateral MR#: [id number] Acct: [id number] Name: LETHA CHAUDHARI Rep #: [id number] : 1950 M 64 From: Osvaldo Manuel MD PCP: Jazz Rodas DO Status: REG CLI Study: Chest PA and Lateral Date of Exam: 09/09/15 Exam# [id number] Ordering Dr: Hyun Iglesias STUDY: X-RAY CHEST [...] Osvaldo Manuel MD at 10:04 EDT Tel [phone], Service support [phone], RAD/Chest PA and Lateral IMPRESSION: Hyperin flation. No acute abnormality is seen. Electronically Signed: Osvaldo Manuel MD at 10:04 EDT Tel [phone], Service support [phone], CC: Jazz Iglesias Sand Hauler: Signed 07-Aug-2015 ELECTROCARDIOGRAM, COMPLETE (ECG) (77783) Comments: afib controlled rate 97 - Result: [MEASUREMENTS ANALYSIS] Date of Test: 08/07/2015 08:26:34; Heart Rate: 97; VA Interval: 0; QRS: 104; QT Interval: 344; Corrected QT Interval (QTc): 408; P Wave [place]: 1; QRS Wave [place]: -31; T Wave [place]: 1; Blood Pressure: 138/78 [ECG DIAGNOSTIC STATEMENTS] Date of Test: 08/07/2015 08:26:34; Summary: Atrial flutter-fibrillation - Nonspecific T-abnormality. ABNORMAL 30-Jul-2015 ELECTROCARDIOGRAM, COMPLETE (ECG) (09174) Comments: afib rate 109 Result: [MEASUREMENTS ANALYSIS] Date of Test: 07/30/2015 17:00:28; Heart Rate: 109; VA Interval: 0; QRS: 108; QT Interval: 338; Corrected QT Interval (QTc): 423; P Wave [place]: 1; QRS Wave [place]: -30; T Wave [place]: 42; Blood Pressure: 122/78 [ECG DIAGNOSTIC STATEMENTS] Date of Test: 07/30/2015 17:00:28; Summary: Atrial fibrillation -Nonspecific QRS widening. -Nonspecific ST depression -Nondiagnostic. ABNORMAL 24-Jul-2015 NCS and/or EMG Patient Result: Comments: See Note; NOTES: [facility] Pulmonary Services/Neurology [address] [place] [address] NCS and/or EMG Patient MR#: [id number] Acct: [id number] Name: LETHA ZUNIGA Rep #: [id number] : 1950 64 From: Mary Doan Referring Dr: Jorge Luis Kerr MD Status: REG CLI Ordering Dr: Jorge Luis Kerr MD Date: 07/23/15 Location: [facility] Sex: M C DATE OF SERVICE: 07/23/2015 [...] referral. Mary Doan MD T: NTS JOB: [id number] 07/24/152201 <Elect ronically signed by Mary Doan > Date Mary Doan CC: Jazz Rodas DO; MARY DOAN; Jorge Luis Kerr MD Date Dictated: 937 Date Transcribed: 07/23/15937 Sand Hauler: Signed 09-Jul-2015 Echocardiogram Complete Result: Comments: See Note; NOTES: [facility] Cardiovascular Services [address] [place] [address] Echo Complete 07/09/15 0858 MR#: [id number] Acct: [id number] Name: LETHA DARBY Rep #: [id number] : 1950 64 From: Babatunde Maria MD Attending Dr: Babatunde Maria MD Status: REG CLI Ordering Dr: Babatunde Maria MD Date: 07/09/15 Location: [facility] Sex: M C Admitted: Reason For [...] Date Dictated: 07/09/15 0858 Date Transcribed: 07/09/158 Sand Hauler: Signed 09-Jul-2015 Nuclear Stress Test - Chemical Result: Comments: See Note; NOTES: [facility] Imaging Services [address] [place] [address] [place] [address] Nuclear Stress Test - Chemical MR#: [id number] Acct: [id number] alexsander: LETHA DEUTSCH Rep #: [id number] : 1950 64 From: Babatunde Maria MD [...] fraction. Babatunde Maria MD T: NTS JOB: [id number] 07/10/15 1139 <Electronically signed by Babatunde Maria MD> Date Babatunde Maria MD CC: Jazz Rodas DO Date Dictated: 07/09/15 1110 Date Transcribed: 07/09/15 1110 Sand Hauler: Signed 02-May-2015 Lumbar Spine 2 or 3 Views Result: Comments: See Note; NOTES: [facility] Imaging Services [address] [place] [address] Ver[place] 4d Lumbar Spine 2 or 3 Views MR#: [id number] Acct: [id number] Name: LETHA ARTHUR Rep #: [id number] : 1950 64 From: Osvaldo Manuel MD PCP: Jazz Rodas DO Status: REG CLI Study: Lumbar Spine 2 or 3 Views Date of Exam: 05/02/15 Exam# [id number] [place] Dr: Sherif Christensen MD STUDY: [...] Osvaldo Manuel MD at 15:13 EST Tel [phone], Service support [phone], 0056 RAD/Lumbar Spine 2 or 3 Views IMPRESSION: Grade 1 anterolisthesis of L5 on S1 with no significant translation on the flexion and extension maneuvers. Multilevel spondylosis and disc space narrowing. Electronically Signed: Osvaldo olivo MD at 15:13 EST Tel [phone], Service support [phone], CC: Sherif Christensen MD; Jazz Rodas DO Sand Hauler: Signed 02-May-2015 Spine Lumbar without Contrast Result: Comments: See Note; NOTES: [facility] Imaging Services [address] [place] [address] Ver[address] 4d Spine Lumbar without Contrast MR#: [id number] Acct: [id number] Wisam e: LETHA DEUTSCH Rep #: [id number] : 1950 M 64 From: Scott Kelly MD PCP: Jazz Rodas DO Status: REG CLI Study: Spine Lumbar without Contrast Date of Exam: 05/02/15 Exam# [id number] Ordering Dr: Sherif Christensen MD STUDY: CT [...] Scott Kelly MD at 8:31 EST Tel [phone], Ser vice support [phone], CC: Sherif Christensen MD; Jazz Rodas DO Sand Hauler: Signed 28-Jan-2015 History and Physical Exam Result: Comments: See Note; NOTES: [facility] Medical Records Department [address] [place] [address] History and Physical 01/24/155 MR#: [id number] Acct: [id number] Name: LETHA DEUTSCH Rep #: [id number] : 1950 64 From: Joe Sinha PA-C PCP: Jazz Rodas DO Status: PRE IN Location: [facility] DATE OF SERVICE: PRIMARY CARE PHYSICIAN: Dr. Natalie Rodas. PROCEDURE TYPE: Reverse total shoulder replacement, right shoulder. PROCEDURE DATE: February 04, 2015. ATTENDING PHYSICIAN: Dr. Jorge Luis Kerr. HISTORY OF PRESENT ILLNESS: This is a 64-year-old male who first presented to [facility] on December [...] patient has undergone cardiac clearance by his podiatric surgeon, Dr. Maria. The patient has a history of coronary artery disease with bypass surgery in 1996. The patient has also had heart ablation in 2010 as well as stents in his left and right iliac arteries. The patient un derwent a heart catheterization in 2011. The patient was given surgical clearance by his podiatric surgeon. The patient denies any chest pain, shortness [...] in the medical record. Please see attached [facility] medical history sheet. PAST MEDICAL PROBLEMS: [...] DIAGNOSTIC STUDIES: 1. X-rays were obtained at [facility] on December 03, 2014, of the right shoulder including 3 views AP, ___ _ and axillary view, show no acute fracture, dislocation, or other bony abnormalities, ____ lesion inferior aspect of the glenoid. 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 2. MRI o f the right shoulder was obtained at [facility] on ____ 2014, shows a full-thickness tear [...] nt has undergone cardiac clearance from his podiatric surgeon. Joe Sinha PA-C T: NTS JOB: [id number] 01/28/15715 <Electronically signed by Joe Sinha PA-C> [...] Lumbar (Routine) Result: Comments: See Note; NOTES: [facility] Imaging Services [address] [place] [address] MRI Report MR#: [id number] Acct: [id number] Name: LETHA DEUTSCH Rep #: [id number] : 1950 M 63 From: Jack Martínez MD PCP: Jazz Rodas DO Status: REG CLI Study: Spine Lumbar (Routine) Date of Exam: 06/13/14 Exam# [id number] Ordering Dr: Mihir Martínez MD STUDY: MR [...] at 19:32 EST Tel , Service support [phone], CC: Mihir Martínez MD; Jazz Rodas DO Sand Hauler: Signed 06-Mar-2014 Sleep Study Report Result: Comments: See Note; NOTES: [facility] SLEEP DISORDER [facility] [address] [place] [address] Polysomnography with NCPAP MR#: [id number] Acct: [id number] Name: RADHA DEUTSCH Rep #: [id number] : 1950 63 From: Gennaro Larsen MD PCP: Rupinder Encarnacion DO Status: REG CLI Ordering Dr.: Gennaro Larsen MD Date: 02/28/14 Sex: M C REFERRING PHYSICIAN: Dr. Larsen. SLEEP HISTORY: The patient is a 63-year-old gentleman with a calculated body mass index of 36.3 and an Phoenix Sleepiness Scale score of 8/24. The patient [...] night. ADDITIONAL MEDICAL HISTORY: As reported by arne pruitt, includes hypertension, hyperlipidemia, A-fib, status post [...] version). Please note that a reference to [facility] AHI in this report is consistent with the current Hypopnea definition according to Medicare Criteria and an AASM AHI reference is consistent with the current Hypopnea definition according to the AASM criteria. PROCEDURE: The stud y was attended continuously by a sleep manager. Monitored parameters included left and right EOG, [...] INTERPRETING PHYSICIAN: Gennaro Larsen Jr., MD CC: Genanro Larsen MD 1204 1436 03/06/14 1206 <Electronically signed by Gennaro Larsen MD> MARIANO Date Gennaro Larsen MD Co-signature (if applicable) Date Signed 30-Jan-2014 Carotid Duplex Ultrasound Result: Comments: See Note; NOTES: [facility] Cardiovascular Services [address] [place] [address] Carotid Duplex Ultrasound 01/30/14 0854 MR#: [id number] Acct: [id number] Wisam e: LETHA DEUTSCH Rep #: [id number] : 1950 63 From: Rian Levi MD [...] the left vertebral artery. Procedure Carotid Duplex 65914. Exam performed in department. Interpretation Summary Mild (<50%) stenosis right extracranial internal carotid. Mild (<50%) stenosis left extracranial internal carotid. Flow within the vertebral arteries is antegrade bilaterally. Ordering Physician: Rupinder Encarnacion Performed By: Kaorn Harris RVT 01/30/14 1122 Date Rian Levi MD CC: Rupinder Encranacion DO Date Dictated: 01/30/1454 Date Transcribed: 01/30/141121 Sand Hauler: Signed Immunization Name Dates Details Influenza (3 years and up) on: 24-Jan-2007 Comments: given o.5cc im in right deltoid lot#[id number] exp.10/09/07-aw Influenza (3 years and up) on: 15-Mar-2008 Influenza (3 years and up) on: 07-Jan-2009 Comments: Lot #:[id number] date:mount given:0.5mlRoute: IMSite given:left deltGiven by: PRECIOUS Serna Pneumococcal (2 years and up) on: 24-Jan-2007 Comments: given 0.5cc in right deltoid lot#[id number] exp. 02/20/08-aw Family History Unknown Family Member Name Dates Details Father Comments: aty 52, Diabetes and [place] Status: Active Mother Comments: CAD, PVD Status: [...] Area Calculated 2.14 m2 :59 Comments: hearing [facility] and had a glaucoma test done [...] Surface Area Calculated 2.12 m2 :29 Comments: [facility] and hada glaucoma test doneHearing [...] Area Calculated 2.11 m2 :50 Comments: Eye [facility] 2014[facility] wn Pulse 74 /min Comments: Pattern: Regular [...] 0.00 cm Results Date Description Value Details :46 CBC W/Diff, Automated Comments: [facility] [address] [place], [address] Absolute Lymph 1.24 {X10_3/ul} (Normal) Range: 0.83-4.51 Absolute Neut 2.3 {X10_3/uL} (Normal) Range: 2.0-7.7 IM GRAN % 0.200 % (Normal) Range: 0.0-0.9 Comments: IG% - Immature Granulocytes (promyelocytes, myelocytes andmetamyelocytes) > 1% indicates that a LEFT SHIFT is Present. BASO% 0.2 % (Normal) Range: 0-1 EO% 4.5 % (Normal) Range: 0-5 MONO% 8.2 % (Normal) Range: 0-10 LY% 30.8 % (Normal) Range: 19-41 NEUT% 56.1 % (Normal) Range: 47-70 MPV 9.3 fL (Normal) Range: 6.2-12.0 PLT 140 K/mm3 (Abnormal) Range: 150-450 RDW SD 60.5 fL (Abnormal) Range: 35.1-43.9 RDW CV 16.0 % (Abnormal) Range: 11.6-14.6 MCHC 32.1 {g/gl} (Normal) Range: 32-36 MCH 33.4 pg (Abnormal) Range: 27.0-32.0 MCV 104.2 fL (Abnormal) Range: 80-94 HCT 44.3 % (Normal) Range: 40-54 HGB 14.2 g/dL (Normal) Range: 13.0-16.5 RBC 4.25 {M/mm3} (Abnormal) Range: 4.6-6.2 WBC 4.0 K/mm3 (Abnormal) Range: 4.4-11.0 17-Fsj-05291:46 Comprehensive Metabolic Profil Comments: [facility] [address] [place], [place], [phone] GAP 8 (Normal) Range: 5-15 CO2 34.0 mmol/L (Abnormal) Range: 21.0-32.0 CL 99 mmol/L (Normal) Range: 98-107 K 3.6 mmol/L (Normal) Range: 3.5-5.1 NA 141 mmol/L (Normal) Range: 136-145 T BILI 0.40 mg/dL (Normal) Range: 0.20-1.00 ALT 29 U/L (Normal) Range: 16-61 ALK P 65 U/L (Normal) Range: 45-117 AST 20 U/L (Normal) Range: 15-37 CA 9.5 mg/dL (Normal) Range: 8.5-10.1 A/G 1.1 {RATIO} (Normal) Range: 0.9-2.4 GLOB 3.5 g/dL (Normal) Range: 2.2-4.2 ALB 3.7 g/dL (Normal) Range: 3.2-5.0 T PROT 7.2 g/dL (Normal) Range: 6.4-8.2 BUN/CRE 29.3 {RATIO} (Abnormal) Range: 10-20 EST GFR - AA 69 mL/min (Normal) Comments: GFR Calc EST GFR 57 mL/min (Abnormal) Comments: Non- GFR Calc CREAT,SERUM 1.33 mg/dL (Abnormal) Range: 0.70-1.30 Comments: The validity of the calculated GFR AND GFRAA in patients over70 years has not been determined. Clinical correlation isessential. BUN 39 mg/dL (Abnormal) Range: 7-18 GLU 110 mg/dL (Abnormal) Range: 74-106 Comments: Fasting Glucose result from 100 to 125 mg/dLsuggests IMPAIRED HOMEOSTASIS per A.D.A. criteria.Please note revised GLUCOSE reference range vrntdijuw42/02/2018. :46 Magnesium Comments: [facility] [address] [place], [place], [phone] MG 1.8 mg/dL (Normal) Range: 1.6-2.6 :46 Microalb:Creat Ratio,Random UR Comments: [facility] [address] [place], [place], [phone] MALB:CREAT 5.5 {mg/g_CRE} (Normal) MICROALBUMIN,UR 8.7 mg/L (Normal) UR CREAT 160.00 mg/dL (Normal) :46 PSA,Total - Annual Screen Comments: [facility] [address] [place], [place], [phone] PSA,TOT SCREEN 1.02 ng/mL (Normal) Range: 0.00-4.00 Comments: This test was performed using the TPSA assay method for [employer] chemistry system. Values obtained with differentassay methods cannot be used interchangably.When changing PSA assays in the course of monitoring apatient, additional sequential testing should be carriedout to confirm baseline values. :46 Thyroid Stim Hormone (TSH) Comments: [facility] [address] [place], [address] TSH 1.66 {uIU/mL} (Normal) Range: 0.358-3.74 :46 Urinalysis, Complete Comments: How was Urine Obtained? CLEAN [facility] [address] [place], [address] MUCUS, URINE 0 SEEN {/hpf} (Normal) [...] (Normal) CLARITY Clear (Normal) COLOR Yellow (Normal) :46 Vitamin B12 409 pg/mL (Normal) Comments: [facility] [address] [place], [address] Range: 211-911 :46 Vitamin D,25 Hydroxy Comments: [facility] [address] [place], [address] Vitamin D 25-OH 75.4 ng/mL (Normal) Range: 29.95-100.01 Comments: Vitamin D 25(OH) Status Range Deficiency <20 ng/mL (50nmol/L) Insuffciency 20 - 30 ng/mL (50 - 75 nmol/L) Sufficiency 30 - 100 ng/mL (75 - 250 nmol/L) Toxicity >100 ng/mL (>250 nmol/L) 89-Ohe-918438:08 Blood Glucose , Office (12719) Blood Glucose , Office 110 (Normal) :52 HgA1C , Office (22824) HgA1C , Office 4.9 % (Normal) Range: 4.6 - 7.1 64-Ruj-025700:07 Basic Metabolic Profile (BMP) Comments: [facility] [address] [place], [place], [phone] GAP 7 (Normal) Range: 5-15 CO2 30.0 [...] Comments: Please note revised GLUCOSE reference range uxxfqkgpj76/02/2018. :53 Albumin, Serum Comments: [facility] [address] [place], [place], [phone] ALB 3.5 g/dL (Normal) Range: 3.2-5.0 :53 Hemoglobin A1c Comments: [facility] [address] [place], [phone] HGB A1C 5.7 % (Normal) Range: 4.2-6.3 24-Tfp-89523:53 Vitamin D,25 Hydroxy Comments: [facility] [address] [place], [address] Vitamin D 25-OH 47.7 ng/mL (Normal) Range: 29.95-100.01 Comments: Vitamin D 25(OH) Status Range Deficiency <20 ng/mL (50nmol/L) Insuffciency 20 - 30 ng/mL (50 - 75 nmol/L) Sufficiency 30 - 100 ng/mL (75 - 250 nmol/L) Toxicity >100 ng/mL (>250 nmol/L) 6-Vje-120074:38 Basic Metabolic Profile (BMP) Comments: [facility] [address] [place], [id number] GAP 10 (Normal) Range: 5-15 CO2 28.0 [...] Critical Result(s) Called at: 18:23:59 02/16/2018 by:[facility] GLU 96 mg/dL (Normal) Range: 74-106 Comments: Please note revised GLUCOSE reference range hxlncoddn28/02/2018. 7-Hzj-467973:38 CBC W/Diff, Automated Comments: [facility] [address] [place], [address] Absolute Lymph 1.17 {X10_3/ul} (Normal) [...] 4.6-6.2 WBC 4.9 K/mm3 (Normal) Range: 4.4-11.0 :32 Urinalysis, Complete Comments: Order Date: 02/16/18Has pt arrived? YHow was Urine Obtained? OYSTER FLOATER TO [facility] [address] [place], [phone] MUCUS, URINE 0 SEEN {/hpf} (Normal) BACTERIA [...] (Normal) CLARITY Clear (Normal) COLOR Yellow (Normal) 41-Hwt-307204:57 Blood Glucose , Office (04675) Blood Glucose , Office 123 (Normal) :06 Lipid Profile Comments: [facility] [address] [facility] [place], [place], [phone] VLDL Test not performed mg/dL (Normal) Range: [...] mg/dL High Risk :06 Liver Profile Comments: [facility] [address] [place], [place], [phone] D BILI 0.07 mg/dL (Normal) Range: 0.00-0.30 T BILI 0.30 mg/dL (Normal) Range: 0.20-1.00 ALT 34 U/L (Normal) Range: 16-61 ALK P 58 U/L (Normal) Range: 45-117 AST 23 U/L (Normal) Range: 15-37 GLOB 3.4 g/dL (Normal) Range: 2.2-4.2 ALB 3.4 g/dL (Normal) Range: 3.2-5.0 T PROT 6.8 g/dL (Normal) Range: 6.4-8.2 :19 CBC W/Diff, Automated Comments: [facility] [address] [place], [address] Absolute Lymph 1.39 {X10_3/ul} (Normal) Range: 0.83-4.51 [...] Range: 4.4-11.0 :19 Comprehensive Metabolic Profil Comments: [facility] [address] [place], [place], [address] GAP 13 (Normal) Range: 5-15 CO2 29.0 [...] A.D.A. criteria.Please note revised GLUCOSE reference range rtnaafstq13/02/2018. 91-Kdk-48418:19 Lipid Profile Comments: [facility] [address] [place], [place], [phone] VLDL Test not performed mg/dL (Normal) Range: [...] High Risk :19 Microalb:Creat Ratio,Random UR Comments: [facility] [address] [place], [address] MALB:CREAT 15.8 {mg/g_CRE} (Normal) MICROALBUMIN,UR 13.4 mg/L (Normal) UR CREAT 84.70 mg/dL (Normal) :19 Thyroid Stim Hormone (TSH) Comments: [facility] [address] [place], [address] TSH 1.82 {uIU/mL} (Normal) Range: 0.358-3.74 :19 Urinalysis, Complete Comments: How was Urine Obtained? [facility] [address] [place], [address] MUCUS, URINE 0 SEEN {/hpf} [...] :19 Vitamin B12 353 pg/mL (Normal) Comments: [facility] [address] [place], [address] Range: 211-911 :19 Vitamin D,25 Hydroxy Comments: [facility] [address] [place], [id number] Vitamin D 25-OH 24.7 ng/mL (Abnormal) Range: 29.95-100.01 Comments: Vitamin D 25(OH) Status Range Deficiency <20 ng/mL (50nmol/L) Insuffciency 20 - 30 ng/mL (50 - 75 nmol/L) Sufficiency 30 - 100 ng/mL (75 - 250 nmol/L) Toxicity >100 ng/mL (>250 nmol/L) :02 HgA1C , Office (75609) HgA1C , Office 5.4 % (Normal) Range: 4.6 - 7.1 :02 Blood Glucose , Office (74946) Blood Glucose , Office 141 (Normal) :22 Lipid Profile Comments: [facility] [address] [place], [phone] VLDL 49 mg/dL (Abnormal) Range: 5-40 LDL [...] mg/dL High Risk :22 Liver Profile Comments: [facility] [address] [place], [address] D BILI 0.09 mg/dL (Normal) Range: 0.00-0.30 T BILI 0.30 mg/dL (Normal) Range: 0.20-1.00 ALT 26 U/L (Normal) Range: 12-78 ALK P 55 U/L (Normal) Range: 45-117 AST 18 U/L (Normal) Range: 15-37 GLOB 3.4 g/dL (Normal) Range: 2.2-4.2 ALB 3.6 g/dL (Normal) Range: 3.4-5.0 Comments: Please note revised Albumin AND Globulin reference rangeeffective 2017. T PROT 7.0 g/dL (Normal) Range: 6.4-8.2 9-Wpc-701512:39 PSA (PROSTATE SPECIFIC Comments: PATIENT NOT FASTINGPERFORMED BY: [facility] CenterHsjkor9632 [facility] [id number] ANTIGEN) (V76.44) Prostate Specific Ag, 0.9 ng/mL (Normal) Range: 0.0-4.0 Serum Comments: [employer] ECLIA methodology. .According to the [place] [employer], Serum PSA shoulddecrease and remain [...] of malignant disease. :04 HgA1C , Office (45442) HgA1C , Office 5.6 % (Normal) Range: 4.6 - 7.1 :04 Blood Glucose , Office (95090) Blood Glucose , Office 117 (Normal) :37 CBC W/Diff, Automated Comments: [facility] [address] [place], [place], [phone] Absolute Lymph 1.18 {X10_3/ul} (Normal) Range: 0.83-4.51 [...] 4.6-6.2 WBC 5.2 K/mm3 (Normal) Range: 4.4-11.0 81-Sgt-89844:37 Comprehensive Metabolic Profil Comments: [facility] Zsldmrakqq0084 [facility] Misha. [place], [place], [id number] GAP 5 (Normal) Range: 5-15 CO2 32.0 [...] (Normal) Range: 70-110 :37 Lipid Profile Comments: [facility] [address]qwmzwa[address] [place], [address] VLDL 61 mg/dL (Abnormal) Range: 5-40 LDL [...] High Risk :37 Microalb:Creat Ratio,Random UR Comments: [facility] Zqqtczvzcy25[address] [place], [address] MALB:CREAT Test not performed {mg/g_CRE} (Normal) MICROALBUMIN,UR < 5.0 mg/L (Normal) UR CREAT 105.00 mg/dL (Normal) :37 Thyroid Stim Hormone (TSH) Comments: [facility] Tkfnschuqg8148 [address]lanaALYSA Gutierrez, [address] TSH 1.68 {uIU/mL} (Normal) Range: 0.358-3.74 :37 Urinalysis, Complete Comments: How was Urine Obtained? CLEAN [facility] Tfjjmmesjo6133 [place], [address] MUCUS, URINE 0 SEEN {/hpf} (Normal) [...] :37 Vitamin B12 539 pg/mL (Normal) Comments: [facility] Lqeiexcsom8621 [place], [address] Range: 211-911 :37 Vitamin D,25 Hydroxy Comments: [facility] Lfkuawftgu5134 [place], [address] Vitamin D 25-OH 42.0 ng/mL (Normal) Comments: Vitamin D 25(OH) Status Range Deficiency <20 ng/mL (50nmol/L) Insuffciency 20 - 30 ng/mL (50 - 75 nmol/L) Sufficiency 30 - 100 ng/mL (75 - 250 nmol/L) Toxicity >100 ng/mL (>250 nmol/L) Gastric Biopsy See Note (Normal) Comments: [facility] Dlevfoaujw[address] [place], [address] :56 Comments: Patient: LETHA DEUTSCH : 1950 (65/M) Acct Num: [id number] Phys: Jose Antonio Mehta Unit Num: [id number] Loc: LABSPEC Specimen: [id number] Received: 10/21/161630 Spec Type: Gastric Bx TISSUES TISSUES: COMMENT The results of immunohistochemistry for Helicobacter pylori will be reported separately ([id number]). GROSS DESCRIPTION Received in fixative i s one container labeled with the patient's name and designated gastric/antrum biopsy. The specimen consists of two irregular fragments of light pacheco soft tissue that in aggregate measure 0.6 x 0.3 x 0 .1 cm. The specimen is totally submitted in one cassette. / YONI:berta 10/22/16 TC:3 CPT: 14388 HEADER OPERATION: EGD with biopsy PRE-OP DIAGNOSIS: Iron deficiency anemia TISSUE SUBMITTED: Bio psy gastric antrum biopsy, rule out gastritis MICROSCOPIC DESCRIPTION Slides are reviewed. The specimen shows fragments of gastric mucosa with chronic inflammatory cell infiltrates in the lamina propria consisting of lymphocytes and plasma cells, consistent with mild chronic gastritis. MICROSCOPIC DIAGNOSIS Gastric antrum, biopsy: Mild gastritis. SJ:berta 10/25/16 Signed ____ Peter Ibanez 10/25/16 <signature on file> IMMUNOHISTOCHEMISTRY See Note (Normal) Comments: [facility] Eujouuedhn[address] [place], [address] :00 Comments: Patient: LETHA DEUTSCH : 1950 (65/M) Acct Num: [id number] Phys: Jose Antonio Mehta Unit Num: [id number] Loc: LABSPEC Specimen: [id number] Received: 10/25/16 - 1213 Spec Type: IMMUNO TISSUES TISSUES: SPECIMEN INFORMATION: Tissue Source: Gastric antrum biopsy Clinical Info: Iron deficiency anemia Specimen Number: [id number] CPT code: 24568 METHODO LOGY: Deparaffinized sections of prefer/formalin-fixed tissue or PAP/DQ stained slides are incubated with monoclonal/polyclonal antibodies/oligonucleotide probes. Localization is made via biotin free immunoperoxidase method. Appropriate controls are performed and reacted as expected. Results on target cell population are indicated in the following table: RESULTS: ANTIBODY / CLONE RESULT H Pylori (polyclonal) negative These tests were developed and their performance characteristics determined by [facility]. They may not hav e been cleared or approved by the U.S. Food and Drug Administration. The FDA has determined that such clearance or approval is not necessary. INTERPRETATION: Gastric antrum, biopsy: Negative for Helicobacter pylori organisms. SJ:berta 10/26/16 PHYSICIAN AND INSTITUTION [address] [address] Signed Peter Ibanez 10/26/16 <signature on file> 8-Beh-069458:26 CBC-Complete Blood Cnt No Diff Comments: [facility] [address] [place], [address] MPV 9.7 fL (Normal) Range: 6.2-12.0 PLT [...] 4.6-6.2 WBC 5.5 K/mm3 (Normal) Range: 4.4-11.0 6-Vyw-098589:26 Iron Comments: [facility] Bcrygyjjul4[address] [place], [place], [address] IRON 109 ug/dL (Normal) Range: 65-175 7-Zjc-937422:10 Basic Metabolic Profile (BMP) Comments: DR.STRUNETS MALHOTRA BMP,CBCD DR. JAMEY MALHOTRA PT/[facility] Itvgdubusn5898 [facility] [place], [address] GAP 7 (Normal) Range: 5-15 [...] 126 mg/dLsuggests DIABETES MELLITUS per A.D.A. criteria. 8-Xkn-364333:10 CBC W/Diff, Automated Comments: DR.STRUNETS MALHOTRA BMP,CBCD DR. JAMEY MALHOTRA PT/[facility] Lcnlhwdxpn8547 [address] [place], [place], [address] Absolute Lymph 0.85 {X10_3/ul} (Normal) Range: 0.83-4.51 [...] 4.6-6.2 WBC 3.9 K/mm3 (Abnormal) Range: 4.4-11.0 7-Ssk-529496:10 Prothrombin Time w/INR Comments: DR.STRUNETS MALHOTRA BMP,CBCD DR. JAMEY MALHOTRA PT/[facility] Prknoasjjz3182 [facility] [place], [place], [address] INR 1.5 (Normal) PROTIME 17.9 s (Abnormal) Range: 11.7-14.9 52-Xnt-599073:31 Stool Occult Blood iFOB Comments: [facility] Dtwhcfffoy7997 [facility]. [place], [place], [address] STOB See Note (Normal) Comments: Order Date: 09/02/16 STOB iFOBOccult Blood Positive ORGANISM 1: OCCULT BLOOD POSITIVE 64-Bog-838352:25 Basic Metabolic Profile (BMP) Comments: [facility] Ezgqbtyulq7780 [address] [place], [place], [address] GAP 8 (Normal) Range: 5-15 CO2 29.0 [...] 7-18 GLU 98 mg/dL (Normal) Range: 70-110 11-Wqq-816740:25 CBC-Complete Blood Cnt No Diff Comments: [facility] Jroyfbbyvq7739 [address] [place], [place], [address] MPV 8.8 fL (Normal) Range: 6.2-12.0 PLT [...] 4.6-6.2 WBC 5.6 K/mm3 (Normal) Range: 4.4-11.0 93-Kyj-138244:25 Liver Profile Comments: [facility] [address] [place], [place], [address] D BILI 0.05 mg/dL (Normal) Range: 0.00-0.30 T BILI 0.20 mg/dL (Normal) Range: 0.20-1.00 ALT 24 U/L (Normal) Range: 12-78 ALK P 51 U/L (Normal) Range: 45-117 AST 13 U/L (Abnormal) Range: 15-37 GLOB 3.3 g/dL (Normal) Range: 2.3-3.5 ALB 3.7 g/dL (Normal) Range: 3.4-5.0 T PROT 7.0 g/dL (Normal) Range: 6.4-8.2 :25 Prothrombin Time w/INR Comments: [facility] [address] [place], [place], [address] INR > 19.5 (Abnormal) Comments: RESULTS CALLED TO BRITTANEY 09/02/16 1753 Vito Arteaga.REPORT READ BACK BY SAME. PROTIME > 120.0 s (Abnormal) Range: 11.7-14.9 34-Jnl-695535:53 Prothrombin Time w/INR Comments: [facility] [address] [place], [place], [address] INR > 19.5 (Abnormal) Comments: CRITICAL VALUE VERIFIED. [facility] AT [facility]09/02/16 1447 Alice Luque.RESULTS READ BACK BY SAME . PROTIME > 120.0 s (Abnormal) Range: 11.7-14.9 41-Afd-249298:33 Prothrombin Time w/INR Comments: [facility] [address]io[address] [place], [place], [address] INR 1.9 (Normal) PROTIME 21.2 s (Abnormal) Range: 11.7-14.9 :51 HgA1C , Office (79327) HgA1C , Office 5.5 % (Normal) Range: 4.6 - 7.1 :51 Blood Glucose , Office (74788) Blood Glucose , Office 131 (Normal) 19-Rcx-191185:44 Prothrombin Time w/INR Comments: [facility] [address] [place], [place], [address] INR 2.4 (Normal) PROTIME 25.5 s (Abnormal) Range: 11.7-14.9 18-Bjr-231083:11 Prothrombin Time w/INR Comments: [facility] [address] [place], [address] INR 1.5 (Normal) PROTIME 17.7 s (Abnormal) Range: 11.7-14.9 1-Uou-866874:47 Prothrombin Time w/INR Comments: [facility] Ll[address] [place], [place], [address] INR 1.5 (Normal) PROTIME 17.7 s (Abnormal) Range: 11.7-14.9 8-Vfj-196112:45 Basic Metabolic Profile (BMP) Comments: Order Date: 06/09/16Order Info: [id number] - *BMPDR. JAMEY ORDERED PTINR STANDING ORDER.Order Date: 06/09/16Order Info: 0667-1 - *BMPComments: Reason:[facility] [address]qvmswdqni[address] [place], [place], [address] GAP 9 (Normal) Range: 5-15 CO2 30.0 [...] Range: 70-110 :02 Prothrombin Time w/INR Comments: [facility] Tbwbtjpxwg6126 [place], [address] INR 1.8 (Normal) PROTIME 20.1 s (Abnormal) Range: 11.7-14.9 :27 POTASSIUM SERUM (82143) Comments: STAT; Order Date: 06/30/16Order Info: 2823-3 - KComments: STATOrder Date: 06/30/16Order Info: 2823-3 - KComments: STATWBlanchard [facility] Eewtcnplmr0360 [place], [address] K 4.6 mmol/L Range: 3.5-5.1 (Normal) Vitamin B2, Whole 236 ug/L (Normal) Comments: PATIENT NOT FASTINGPERFORMED BY: [employer] [facility] [id number] BY: [employer] [id number] 5:40 Blood Range: 137-370 Comments: Reference interval reflects flavinadeninedinucleotide (FAD), that accounts for approximately 90% of the total riboflavin in whole blood. 27-Mzr-033027:40 Vitamin B6, Plasma Comments: PATIENT NOT FASTINGPERFORMED BY: [employer]inder [facility] HospitalVixloCentral [facility] [id number] BY: [employer] [id number] ([address]) Vitamin B6 36.6 ug/L (Normal) Range: 5.3-46.7 61-Oyg-218220:40 ALCOHOL, ETHYL (BLOOD) Comments: serum alcohol; PATIENT NOT FASTINGPERFORMED BY: [employer]70 [facility] [place] [id number] BY: [address] [id number] ([address]44) Ethanol Negative % (Normal) 89-Lol-052959:40 AMMONIA (66476) Comments: PATIENT NOT FASTINGPERFORMED BY: [facility] Tievkd2670 [facility] [place] [id number] BY: [address] [id number] Ammonia, Plasma 42 ug/dL (Normal) Range: 27-102 60-Bni-569067:40 VITAMIN B-12 Comments: PATIENT NOT FASTINGPERFORMED BY: [facility] Rfxlwj1777 [facility] [place] [id number] BY: [address] [id number] (CYANOCOBALAMIN) (57786) Vitamin B12 417 pg/mL (Normal) Range: 211-946 68-Qcv-605237:40 SED RATE ERYTHROCYTE Comments: PATIENT NOT FASTINGPERFORMED BY: [facility]la[facility]6370 [facility] [place] [id number] BY: [place] [id number] (167[address]) Sedimentation Rate-Westergren 8 mm/h (Normal) Range: 0-30 73-Fpd-100098:40 RHEUMATOID FACTOR-QUANT Comments: PATIENT NOT FASTINGPERFORMED BY: LabAlicia [place] 1060670 [facility] [id number] BY: [address] [id number] (478[address]) RA Latex Turbid. 10.8 {IU/mL} (Normal) Range: 0.0-13.9 73-Yxj-901686:40 METABOLIC PANEL, Comments: PATIENT NOT FASTINGPERFORMED BY: [facility] Uhujgw3483 [facility] [place] [id number] BY: [address] [id number] COMPREHENSIVE (00106) ALT (SGPT) 25 [iU]/L (Normal) Range: 0-44 [...] Glucose, Serum 100 mg/dL (Abnormal) Range: 65-99 46-Guw-827007:40 C-REACTIVE PROTEIN Comments: PATIENT NOT FASTINGPERFORMED BY: [employer] S[address] [place] [address] [id number] BY: [employer] [id number] (98303) C-Reactive Protein, Quant 0.9 mg/L (Normal) Range: 0.0-4.9 74-Sze-948308:40 CBC (AUTO) (07024) Comments: PATIENT NOT FASTINGPERFORMED BY: [employer] [id number] BY: [employer] [id number] Platelets 194 {x10E3/uL} (Normal) Range: 150-379 RDW 15.6 % (Abnormal) Range: 12.3-15.4 MCHC 33.1 g/dL (Normal) Range: 31.5-35.7 MCH 34.4 pg (Abnormal) Range: 26.6-33.0 MCV 104 fL (Abnormal) Range: 79-97 Hematocrit 39.9 % (Normal) Range: 37.5-51.0 Hemoglobin 13.2 g/dL (Normal) Range: 12.6-17.7 RBC 3.84 {x10E6/uL} (Abnormal) Range: 4.14-5.80 WBC 5.9 {x10E3/uL} (Normal) Range: 3.4-10.8 45-Puh-891793:40 CHIQUI (ANTINUCLEAR ANTIBODY) Comments: PATIENT NOT FASTINGPERFORMED BY: [facility] CampusSyapse[address] [id number] BY: [place] [id number] (73772) CHIQUI Direct Negative (Normal) 04-Fsd-204955:40 TSH (13244) Comments: PATIENT NOT FASTINGPERFORMED BY: ImpulseSave[address] [id number] BY: [address] [id number] TSH 2.350 {uIU/mL} (Normal) Range: 0.450-4.500 :40 T4, FREE (THYROXINE) Comments: PATIENT NOT FASTINGPERFORMED BY: [address] [id number] BY: [address] [id number] (678[address]) T4,Free(Direct) 0.95 ng/dL (Normal) Range: 0.82-1.77 71-App-348541:40 T3, FREE (TRIDOTHYRONINE) Comments: PATIENT NOT FASTINGPERFORMED BY: [address] [id number] BY: [address] [id number] (19553) Triiodothyronine,Free,Serum 2.7 pg/mL (Normal) Range: 2.0-4.4 52-Qnj-540759:40 CALCIFIDIOL (82923) VIT D Comments: PATIENT NOT FASTINGPERFORMED BY: CB [facility] Xguibq6288 Jade [place] [id number] BY: BN [facility] Xqbusfejrc0071 [facility] [id number] 25 Vitamin D, 25-Hydroxy 43.4 ng/mL (Normal) Range: 30.0-100.0 Comments: Vitamin D deficiency has been defined by the [place] ofMedicine and an Endocrine Society practice guideline as alevel of serum 25-OH vitamin D less than 20 ng/mL (1,2).The Endocrine Society went on to further define vitamin Dinsufficiency as a level between 21 and 29 ng/mL (2).1. IOM ([place] of Medicine). 2010. Dietary reference intakes for calcium and D. Ca DC: The National Academies Press.2. Elyse MF, Saumya PUENTE, Nai MARIANO, et al. Evaluation, treatment, and prevention of vitamin D deficiency: an Endocrine Society clinical practice guideline. JCEM. 2010; 96(7):1911-30. 58-Vpl-074652:45 Alcohol, Blood (Medical)-Serum Comments: [facility] [address]okbhy[address] [place], [place], [address] SERUM ETOH 353.0 mg/dL (Abnormal) Comments: CALLED KEESHA LOBO RN ED [place] 2054PM MAF READ BACK BY SAMEThe serum:whole blood ethanol ratio is approximately 1.14and varies slightly with hematocrit.Medical Alcohol reference interval and critical v alue innon-tolerant individuals; 50 - 100 Impairment 100 Intoxication 100 - 250 Severe Poisoning 250 - 400 Deep/possible fatal coma 90-Dlw-600365:45 Basic Metabolic Profile (BMP) Comments: 'TROP' Serial specimen #1, #2, #3, or #4: 1WBl[facility] Ieavlgytwt4210 [place], [address] GAP 10 (Normal) Range: 5-15 CO2 26.0 [...] 7-18 GLU 95 mg/dL (Normal) Range: 70-110 46-Bxn-007201:45 CBC W/Diff, Automated Comments: [facility] Cbrrcisxqx9[address] [place], [place], [address] Absolute Lymph 2.30 {X10_3/ul} (Normal) Range: 0.83-4.51 [...] Range: 4.4-11.0 :45 Partial Thromboplast Time Comments: [place] [address] [address] [place], [place], [address] PTT 28.3 s (Normal) Range: 24.1-36.2 :45 Prothrombin Time w/INR Comments: [address] [place], [address] INR 1.1 (Normal) PROTIME 14.1 s (Normal) Range: 11.7-14.9 :45 Troponin-I Comments: 'TROP' Serial specimen #1, #2, #3, or #4: 1WMarcus [place] [address] [place], [address] TROPONIN-I < 0.02 ng/mL (Normal) Comments: TROPONIN-I EXPECTED VALUES <0.05 NEGATIVE 0.06 - 0.59 AT RISK OF IN > OR = 0.60 SUGGEST IN :24 Prothrombin Time w/INR Comments: [place] [address] [address] [place], [address] ; managed by [facility] INR 1.3 (Normal) PROTIME 15.2 s (Abnormal) Range: 11.7-14.9 47-Vil-115137:46 INR Fingerstick Comments: [place] [address] [place] [address] INR ISTAT 3.90 (Abnormal) Comments: Critical Value > 3.5 :46 Prothrombin Time Fingerstick Comments: [place] [address] [address] [place], [place] [address] PROTIME ISTAT 43.7 {SEC} (Abnormal) Range: 11.9-14.4 Comments: Reference Range 11.9 - 14.4 :46 Prothrombin Time w/INR Comments: [facility] [address] [place], [address] INR 4.0 (Abnormal) Comments: CRITICAL VALUE VERIFIED. CALLED TO CAJNCLX74/27/17 Nova Walters.RESULTS READ BACK BY SAME . PROTIME 38.0 s (Abnormal) Range: 11.7-14.9 14-Cty-786058:49 Prothrombin Time w/INR Comments: [facility] [address] [place], [address] INR 2.8 (Normal) PROTIME 28.4 s (Abnormal) Range: 11.7-14.9 94-Oez-385772:52 Basic Metabolic Profile (BMP) Comments: Order Date: 05/04/16Order Info: [id number] - *BMPOrder Date: 05/04/16Order Info: [id number] - *Brain Natriuretic Peptide BNPComments: Reason:[facility] [address] [place], [address] GAP 10 (Normal) Range: 5-15 CO2 [...] 7-18 GLU 104 mg/dL (Normal) Range: 70-110 14-Ruc-143350:52 BNP,B-Type NATRIURETIC PEPTIDE Comments: Order Date: 05/04/16Order Info: [id number] - *Brain Natriuretic Peptide BNPOrder Date: 05/04/16Order Info: [id number] - *Brain Natriuretic Peptide BNPWBlanchard Valley Health System Dxjncoayer9343 [address] [place], [place], [address] B-TYPE ARASELI PEP 240.6 pg/mL (Abnormal) Range: 0-100 80-Hcp-048224:52 Prothrombin Time w/INR Comments: [facility] Mcetxbcnyy[address] [place], [address] INR 2.5 (Normal) PROTIME 25.8 s (Abnormal) Range: 11.7-14.9 16-Cwa-018597:46 Liver Profile Comments: Order Date: 12/12/15Order Date: 12/12/15WBlanchard Valley Health System Oknfqeziib4534 [address] [place], [place], [address] D BILI 0.12 mg/dL (Normal) Range: 0.00-0.30 T BILI 0.30 mg/dL (Normal) Range: 0.20-1.00 ALT 35 U/L (Normal) Range: 12-78 ALK P 56 U/L (Normal) Range: 45-117 AST 25 U/L (Normal) Range: 15-37 Comments: Slight Hemolysis, Result may be falsely increased. GLOB 3.7 g/dL (Abnormal) Range: 2.3-3.5 ALB 3.7 g/dL (Normal) Range: 3.4-5.0 T PROT 7.4 g/dL (Normal) Range: 6.4-8.2 64-Lut-504973:46 Prothrombin Time w/INR Comments: [facility] Drfmzjpnvo4970 [address] [place], [place], [address] INR 3.6 (Abnormal) Comments: CRITICAL VALUE REPEATED AND VERIFIED. CALLED TO DARRYL MEYERS'S OFFICE.04/26/16 Nancy8 Randy LylesRESULTS READ BACK BY SAME. PROTIME 35.0 s (Abnormal) Range: 11.7-14.9 :58 Basic Metabolic Profile (BMP) Comments: [facility] [address]knabiubly[address] [place], [place], [address] GAP 7 (Normal) Range: 5-15 CO2 32.0 [...] Range: 70-110 :58 Prothrombin Time w/INR Comments: [facility] [address]clrlgda[address] [place], [address] INR 1.9 (Normal) PROTIME 20.9 s (Abnormal) Range: 11.7-14.9 :08 Prothrombin Time w/INR Comments: [facility] [address]rqmewydl[address] [place], [address] INR 3.3 (Normal) PROTIME 32.5 s (Abnormal) Range: 11.7-14.9 :34 Prothrombin Time w/INR Comments: [facility] [address]sefcdlnb[address] [place], [address] ; managed by cardio INR 2.6 (Normal) PROTIME 27.0 s (Abnormal) Range: 11.7-14.9 :16 HgA1C , Office (10502) HgA1C , Office 5.7 % (Normal) Range: 4.6 - 7.1 68-Tuh-809131:13 Prothrombin Time w/INR Comments: [facility] V[address]xqtbnbp[address] [place], [place], [address] INR 2.6 (Normal) PROTIME 27.1 s (Abnormal) Range: 11.7-14.9 :26 CBC W/Diff, Automated Comments: [facility] Sfkbhoujjj[address] [place], [place], [address] Absolute Lymph 1.54 {X10_3/ul} (Normal) Range: 0.83-4.51 [...] PT/INRDR.IRVIN ORDERED VITD LIPID MAG CBCD CMP [facility] Ekfxglttkb[address] [place], [place], [address] GAP 4 (Abnormal) Range: 5-15 CO2 28.0 [...] Range: 70-110 16-Mar-20166:26 Lipid Profile Comments: ORDERED PT/INR ORDERED VITD LIPID MAG CBCD CMP [facility] Wvfsrvmlxd8402 [address] [place], [place], [address] VLDL 72 mg/dL (Abnormal) Range: 5-40 LDL [...] ORDERED PT/INRDR.IRVIN ORDERED VITD LIPID MAG CBCD [facility] [address] [place], [address] MG 2.6 mg/dL (Abnormal) Range: 1.8-2.4 :26 Microalb:Creat Ratio,Random UR Comments: [facility] [address] [place], [place], [address](103) MALB:CREAT 24.3 {mg/g_CRE} (Normal) MICROALBUMIN,UR 70.9 mg/L (Normal) UR CREAT 292.00 mg/dL (Normal) :26 Prothrombin Time w/INR Comments: [facility] [address] [place], [address] INR 3.5 (Abnormal) Comments: CRITICAL VALUE REPEATED AND VERIFIED. CALLED TO ORTIZ LABOY'S OFFICE.03/16/16 0742 Randy Buchanan.RESULTS READ BACK BY SAME. PROTIME 33.9 s (Abnormal) Range: 11.7-14.9 :26 Thyroid Stim Hormone (TSH) Comments: ORDERED PT/INRDRABELARDO ORDERED VITD LIPID MAG CBCD [facility] [address] [place], [address] TSH 2.35 {uIU/mL} (Normal) Range: 0.358-3.74 :26 Urinalysis, Complete Comments: How was Urine Obtained? CLEAN [facility] [address]chgbtb[address] [place], [address] HYALINE CAST 5-10 SEEN {/lpf} (Normal) [...] Yellow (Normal) :26 Vitamin D,25 Hydroxy Comments: [facility] Nskwniashi36[address] [place], [address] Vitamin D 25-OH 39.8 ng/mL (Normal) Comments: Vitamin D 25(OH) Status Range Deficiency <20 ng/mL (50nmol/L) Insuffciency 20 - 30 ng/mL (50 - 75 nmol/L) Sufficiency 30 - 100 ng/mL (75 - 250 nmol/L) Toxicity >100 ng/mL (>250 nmol/L) :03 Prothrombin Time w/INR Comments: [facility] [address]xczechusz[address] [place], [address] INR 4.0 (Abnormal) Comments: CRITICAL VALUE REPEATED AND VERIFIED. CALLED TO [facility]03/10/16 0907 Alice Rebel.RESULTS READ BACK BY SAME . PROTIME 37.4 s (Abnormal) Range: 11.7-14.9 :57 Prothrombin Time w/INR Comments: [place] [address] [place], [address] INR 1.6 (Normal) PROTIME 18.3 s (Abnormal) Range: 11.7-14.9 :02 Prothrombin Time w/INR Comments: [place] [address] [place], [address] INR 1.8 (Normal) PROTIME 20.6 s (Abnormal) Range: 11.7-14.9 :12 Prothrombin Time w/INR Comments: [place] [address] [place], [address] INR 2.3 (Normal) PROTIME 24.4 s (Abnormal) Range: 11.7-14.9 :50 Prothrombin Time w/INR Comments: [place] [address] [place], [address] INR 2.8 (Normal) PROTIME 28.9 s (Abnormal) Range: 11.7-14.9 :40 INR Fingerstick Comments: [place] [address] [place] [address] INR ISTAT 2.40 (Normal) Comments: Critical Value > 3.5 :40 Prothrombin Time Fingerstick Comments: [place] [address] [place] [address] PROTIME ISTAT 27.5 {SEC} (Abnormal) Range: 11.9-14.4 Comments: Reference Range 11.9 - 14.4 :54 Prothrombin Time w/INR Comments: THERE IS NO VRO CHARGE ON THIS PATIENT; THIS PATIENTRETURNED FROM TUESDAY. A BMP AND A PT WAS SUPPOSED TO [facility], ONLY THE BMP WAS DONE. [facility] [address] [place], [place], [phone] INR 2.8 (Normal) PROTIME 28.4 s (Abnormal) Range: 11.7-14.9 [id number] Basic Metabolic Profile (BMP) Comments: Order Date: 01/08/16Comments: Reason:Order Date: 01/08/16Comments: Reason:[facility] [address] [place], [place], [phone] GAP 9 (Normal) Range: 5-15 CO2 25.0 [...] A.D.A. criteria. :52 Prothrombin Time w/INR Comments: [facility] [address] [place], [place], [phone] INR 4.6 (Abnormal) Comments: CRITICAL VALUE REPEATED AND VERIFIED. [facility] 1003 [address] Luque.RESULTS READ BACK BY SAME . PROTIME 41.9 s (Abnormal) Range: 11.7-14.9 :01 Prothrombin Time w/INR Comments: [facility] [address] [place], [place], [phone] INR 2.5 (Normal) PROTIME 26.0 s (Abnormal) Range: 11.7-14.9 :40 Prothrombin Time w/INR Comments: [facility] [id number] [place], [place], [id number] INR 2.5 (Normal) PROTIME 26.1 s (Abnormal) Range: 11.7-14.9 :52 Prothrombin Time w/INR Comments: [facility] Qypbvmqzzx7[address] [place], [id number] INR 2.3 (Normal) PROTIME 24.3 s (Abnormal) Range: 11.7-14.9 :24 Basic Metabolic Profile (BMP) Comments: Order Date: 01/13/16Comments: Reason: For Out patient Cardioversion on 02/16/16Order Date: 01/13/16Comments: Reason: For Out patient [facility]16[facility] [address]yrisq[address] [place], [place], [address] GAP 5 (Normal) Range: 5-15 CO2 33.0 [...] Comments: Order Date: 12/09/15Interface Comments: Reason:Order Date: 12/09/15[facility] Uvhzrxygme0453 [address] [place], [id number] GAP 9 (Normal) Range: 5-15 CO2 29.0 [...] 01/05/16Interface Comments: Reason:Atrial fib, on CoumadinOrder Date: 01/05/16[facility] Gvmfxldntz2888 v[address]lana [place], 286371 INR 3.6 (Abnormal) Comments: CRITICAL VALUE REPEATED AND VERIFIED. CALLED TO CANDACE P001/07/16 0819 Terrie Toussaint.RESULTS READ BACK BY CANDACE. PROTIME 34.9 s (Abnormal) Range: 11.7-14.9 :21 Prothrombin Time w/INR Comments: [facility] Usxfpzrtmd4620 [address] [place], [phone](882) INR 2.1 (Normal) PROTIME 23.1 s (Abnormal) Range: 11.7-14.9 :12 Prothrombin Time w/INR Comments: Order Date: 12/26/15Interface Comments: draw on arrivalOrder Date: 12/26/15[facility] Cwhkewajuf8354 [address] [place], [address]781 INR 2.9 (Normal) PROTIME 29.2 s (Abnormal) Range: 11.7-14.9 87-Ykn-197225:08 Prothrombin Time w/INR Comments: [facility] Vhgfxeyvur9409 ALYSA Maki, [id number](982) INR 1.7 (Normal) PROTIME 19.6 s (Abnormal) Range: 11.7-14.9 03-Ukj-88763:03 Prothrombin Time w/INR Comments: Order Date: 12/18/15[facility] Date: [facility]/15[facility] Bhouofbevm5386 [address] [place], [phone](522) INR 4.1 (Abnormal) Comments: CRITICAL VALUE REPEATED AND VERIFIED. CALLED TO DARRYL LABOY'S OFFICE.12/23/15 0803 Randy Buchanan.RESULTS READ BACK BY SAME. PROTIME 38.6 s (Abnormal) Range: 11.7-14.9 0-Kwf-650383:16 Basic Metabolic Profile (BMP) Comments: Order Date: 12/18/15Interface Comments: Reason:Order Date: 12/18/15[facility] Bbxiqwfore9349 [address] [place], [address] GAP 9 (Normal) Range: 5-15 CO2 28.0 [...] A.D.A. criteria. :11 Prothrombin Time w/INR Comments: [facility] Kpkulqlozf9638 [address] [place], [place], [phone] INR 3.6 (Abnormal) Comments: CRITICAL VALUE REPEATED AND VERIFIED. CALLED TO RACQUELTORITO BARROW12/16/15 Ondina Luque.RESULTS READ BACK BY SAME . PROTIME 34.5 s (Abnormal) Range: 11.7-14.9 :10 Basic Metabolic Profile (BMP) Comments: Order Date: 12/04/15Interface Comments: Reason:Order Date: 12/04/15[facility] Ycjcsojvur9704 [address] [place], [place], [phone] GAP 8 (Normal) Range: 5-15 CO2 28.0 [...] Comments: Order Date: 12/04/15Interface Comments: Reason:Order Date: 12/04/15[facility] Rxulacvjlu5102 [address] [place], [place], [phone] VLDL Test not performed mg/dL (Normal) Range: [...] Comments: Order Date: 12/04/15Interface Comments: Reason:Order Date: 12/04/15[facility] Kvsrexwlhe7210 [address] [place], [place], [phone] D BILI 0.11 mg/dL (Normal) Range: 0.00-0.30 T BILI 0.30 mg/dL (Normal) Range: 0.20-1.00 ALT 63 U/L (Normal) Range: 12-78 ALK P 64 U/L (Normal) Range: 50-136 AST 33 U/L (Normal) Range: 15-37 GLOB 3.2 g/dL (Normal) Range: 2.3-3.5 ALB 3.5 g/dL (Normal) Range: 3.4-5.0 T PROT 6.7 g/dL (Normal) Range: 6.4-8.2 :10 Magnesium Comments: Order Date: 12/04/15Interface Comments: Reason:Order Date: 12/04/15[facility] Tjxepwsyuv22[address] [place], [place], [phone] MG 2.1 mg/dL (Normal) Range: 1.8-2.4 :10 Prothrombin Time w/INR Comments: Order Date: 12/04/15Interface Comments: Reason:Order Date: 12/04/15[facility] Myymkbyxdu2606 ALYSA Maki, 577121 INR 1.7 (Normal) PROTIME 19.3 s (Abnormal) Range: 11.7-14.9 64-Fyd-13729:10 Thyroid Stim Hormone (TSH) Comments: Order Date: 12/04/15Interface Comments: Reason:Order Date: 12/04/15[facility] Gstvbgtfyx1521ALYSA Flynn, 745811 TSH 1.65 {uIU/mL} (Normal) Range: 0.358-3.74 :41 MAGNESIUM (96766) Comments: PATIENT NOT FASTINGPERFORMED BY: [employer]70 [facility] [id number] Magnesium, Serum 2.1 mg/dL (Normal) Range: 1.6-2.3 Comments: Effective December 01, 2015 the reference interval for Magnesium, Serum will be changing to: 0 - 30 days 1.6 - 2.4 1 - 6 months 1.8 - 2.5 7 months - 1 year 1.7 - 2.4 2 - 5 years 1.6 - 2.3 6 - 17 years 1.7 - 2.3 >17 years 1.6 - 2.3 03-Yyo-11715:41 Metabolic Panel, Basic Comments: PATIENT NOT FASTINGPERFORMED BY: [facility]6370 [facility] [id number] Information: [id number] (53683) Calcium, Serum 9.1 mg/dL (Normal) Range: 8.6-10.2 [...] Range: 65-99 :21 Blood Glucose , Office (04476) Blood Glucose , Office 99 (Normal) :21 HgA1C , Office (92484) HgA1C , Office 5.0 % (Normal) Range: 4.6 - 7.1 :49 RETICULOCYTE COUNT (51419) Comments: PATIENT NOT FASTINGPERFORMED BY: Med[facility] CommunicationsVirtua [facility]our[facility] Medical CenterXmdtjc3259 [facility] [id number] Reticulocyte Count 2.4 % (Normal) Range: 0.6-2.6 :49 VITAMIN B-12 (CYANOCOBALAMIN) Comments: PATIENT NOT FASTINGPERFORMED BY: LabSyapseVirtua [facility] Lour[facility] Medical CenterNwqbep5653 [facility] [id number] Information: [id number] (75723) Vitamin B12 560 pg/mL (Normal) Range: 211-946 :36 Bilirubin, Direct Comments: [facility] [address] [place], [place], [address] D BILI 0.14 mg/dL (Normal) Range: 0.00-0.30 :36 CBC W/Diff, Automated Comments: [facility] [address] [place], [place], [address] Absolute Lymph 1.26 {X10_3/ul} (Normal) Range: 0.83-4.51 [...] 4.6-6.2 WBC 5.1 K/mm3 (Normal) Range: 4.4-11.0 19-Rqj-66084:36 Comprehensive Metabolic Profil Comments: [facility] Gausundafu0[address] [place], [address] GAP 6 (Normal) Range: 5-15 CO2 30.0 [...] per A.D.A. criteria. :36 Lipid Profile Comments: [facility] Lfaizhuotf[address] [place], [place], [phone] VLDL 62 mg/dL (Abnormal) Range: 5-40 LDL [...] High Risk :36 Microalb:Creat Ratio,Random UR Comments: [facility] [address] [place], [place], [phone] MALB:CREAT 142.0 {mg/g_CRE} (Abnormal) MICROALBUMIN,UR 223.0 mg/L (Normal) UR CREAT 157.00 mg/dL (Normal) :36 Thyroid Stim Hormone (TSH) Comments: [facility] [address] [place], [place], [phone] TSH 1.17 {uIU/mL} (Normal) Range: 0.358-3.74 :36 Urinalysis, Complete Comments: How was Urine Obtained? CLEAN [facility] Ipzxivblao0894 ALYSA Maki, 262801 MUCUS, URINE 0 SEEN {/hpf} (Normal) BACTERIA [...] Yellow (Normal) :36 Vitamin D,25 Hydroxy Comments: [facility] Tzadzhlfkm8[address] [place], [phone] Vitamin D 25-OH 21.0 ng/mL (Normal) Comments: Vitamin D 25(OH) Status Range Deficiency <20 ng/mL (50nmol/L) Insuffciency 20 - 30 ng/mL (50 - 75 nmol/L) Sufficiency 30 - 100 ng/mL (75 - 250 nmol/L) Toxicity >100 ng/mL (>250 nmol/L) :29 HgA1C , Office (05458) HgA1C , Office 5.6 % (Normal) Range: 4.6 - 7.1 :29 Blood Glucose , Office (16228) Blood Glucose , Office 96 (Normal) :29 CBC W/Diff, Automated Comments: [facility] Doyzpqnxcz1238 [address] [place], [phone] Absolute Lymph 2.04 {X10_3/ul} (Normal) Range: 0.83-4.51 [...] 4.6-6.2 WBC 7.9 K/mm3 (Normal) Range: 4.4-11.0 03-Dgb-371273:29 Comprehensive Metabolic Profil Comments: [facility] Syyryroqnf[address] [place], [place], [phone] GAP 12 (Normal) Range: 5-15 CO2 25.0 [...] <126 mg/dLsuggests IMPAIRED HOMEOSTASIS per A.D.A. criteria. 83-Wic-865600:16 Rapid Flu (35981 x 2) Influenza A Ag neg a and b (Normal) :13 Basic Metabolic Profile (BMP) Comments: [facility] [address]lmfir[address] [place], [address] GAP 4 (Abnormal) Range: 5-15 CO2 33.0 [...] (Normal) Range: 70-110 :50 HgA1C , Office (17735) HgA1C , Office 5.2 % (Normal) Range: 4.6 - 7.1 :50 Blood Glucose , Office (50161) Blood Glucose , Office 111 (Normal) :48 Basic Metabolic Profile (BMP) Comments: [facility] Pplbuyhgdc6910 [facility] [place], [place], [phone] GAP 7 (Normal) Range: 5-15 CO2 31.0 [...] A.D.A. criteria. :48 T4 Total, Thyroxin Comments: [facility] [address] [place], [place], [address] T4 THYROXIN 6.7 ug/dL (Normal) Range: 4.5-12.1 :48 Thyroid Stim Hormone (TSH) Comments: [facility] Ehrxmvkeop9461 [address] [place], [place], [address] TSH 1.02 {uIU/mL} (Normal) Range: 0.358-3.74 :35 CBC W/Diff, Automated Comments: [facility] Jagwykgame8154 [place], [address] Absolute Lymph 1.13 {X10_3/ul} (Normal) Range: 0.83-4.51 [...] Range: 4.4-11.0 :35 Comprehensive Metabolic Profil Comments: [facility] Avuneorfoi6[address] [place], [place], [phone] GAP 5 (Normal) Range: 5-15 CO2 31.0 [...] (Normal) Range: 70-110 :35 Lipid Profile Comments: [facility] Xzvisytbtl6[address] [place], [place], [address] VLDL 44 mg/dL (Abnormal) Range: 5-40 LDL [...] High Risk :35 Microalb:Creat Ratio,Random UR Comments: [facility] [address] [place], [address] MALB:CREAT 31.9 {mg/g_CRE} (Abnormal) MICROALBUMIN,UR 31.7 mg/L (Normal) UR CREAT 99.40 mg/dL (Normal) :35 Thyroid Stim Hormone (TSH) Comments: [facility] [address] [place], [place], [phone] TSH 1.05 {uIU/mL} (Normal) Range: 0.358-3.74 :35 Urinalysis, Complete Comments: How was Urine Obtained? CLEAN [facility] [address] [place], [place], [phone] MUCUS, URINE 0 SEEN {/hpf} (Normal) BACTERIA [...] COLOR Yellow (Normal) :48 HgA1C , Office (09536) HgA1C , Office 5.2 % (Normal) Range: 4.6 - 7.1 :48 Blood Glucose , Office (21369) Blood Glucose , Office 114 (Normal) 03-Vcl-113955:03 MRSA/SAID SCREEN Comments: [facility] [address]zl[address] [place], [address] MRSA+SAID SCRN See Note (Normal) Comments: MRSA/SAID SCRNS. AUREUS S. aureus NegativeMRSA MRSA Negative :13 CBC W/Diff, Automated Comments: Test performed at:[facility] Tnnmiajnmu6700 [facility] [address]. [place], [place] [address] Absolute Lymph 1.57 {X10_3/ul} (Normal) Range: 0.83-4.51 [...] :13 Comprehensive Metabolic Profil Comments: Test performed at:[facility] Fkgdbqyfnz23[address] [place], [place] [address] GAP 4 (Abnormal) Range: 5-15 CO2 31.0 [...] 70-110 :13 Lipid Profile Comments: Test performed at:[facility] Dvabspgqzt1446 [place] [address] VLDL 35 mg/dL (Normal) Range: [...] :13 Microalb:Creat Ratio,Random UR Comments: Test performed at:[facility] [address] [place] [address] MALB:CREAT 5.0 {mg/g_CRE} (Normal) MICROALBUMIN,UR 5.2 mg/L (Normal) UR CREAT 89.50 mg/dL (Normal) :13 Thyroid Stim Hormone (TSH) Comments: Test performed at:[facility] [address] [place] [address] TSH 0.97 {uIU/mL} (Normal) Range: 0.358-3.74 :13 Urinalysis, Routine (Dipstick) Comments: How was Urine Obtained? CLEAN CATCHTest performed at:[facility] [address] [place] [address]1091 LEUK ESTERASE Negative /ul (Normal) OCCULT BLOOD-UR Negative /ul (Normal) NITRITE UR Negative (Normal) UROBILI Normal mg/dL (Normal) PROT DIPSTX Negative mg/dL (Normal) pH UR 6.0 (Normal) Range: 5.0 - 8.0 SP.GR. DIPSTX 1.015 (Normal) Range: 1.002-1.030 KETONE UR Negative mg/dL (Normal) BILIRUBIN URINE Negative mg/dL (Normal) GLUCOSE, UR Normal mg/dL (Normal) CLARITY Clear (Normal) COLOR Yellow (Normal) :35 HgA1C , Office (60252) HgA1C , Office 5.7 % (Normal) Range: 4.6 - 7.1 :35 Blood Glucose , Office (41686) Blood Glucose , Office 111 (Normal) :40 Miscellaneous Lab Procedure Comments: Comments: DRUG SCREEN [id number](s) Ordered: DRUG SCREEN [id number] performed at:[facility] Quywfirgty[address] [place], [place] [phone] ; ordered by [facility] Comments: 400026 6+OXYCODONE-BUND (ng/mL)DRUG RESULT SCREEN CUTOFF____ Amphetamines NEGAT LAB (Normal) BARI ng/mL 1000Barbiturates NEGATIVE ng/mL 200Benzodiazepines NEGATIVE ng/mL 200Cannabinoid NEGATIVE ng/mL 20Cocaine (Metab) NEG TEST ATIVE ng/mL 300Opiates NEGATIVE ng/mL 300 Opiates test includes Codeine, Morphine, Hydromorphone, Hydrocodone.Oxycodone/Oxymorphone,Urine NEGATIVE ng/mL 300 Test includes Oxydodone and Oxymorphone. TESTING PERFORMED AT [facility]. ORIGINAL REPORT ON FILE IN LAB CONTAINS ADDITIONAL TEST SITE INFORMATIO N. 9-Ubj-659106:40 Urine Drug Screen (VISTA) Comments: Comments: DRUG SCREEN [id number] of Drugs Taken or Suspected? .Test performed at:[facility] [address]wrxksuph[address] [place] [address] THC NEGATIVE (Normal) PCP NEGATIVE (Normal) OPIATES [...] Hydroxy Comments: Has pt arrived? YTest performed at:[facility] [address] [place] [address] Vitamin D 25-OH 38.2 ng/mL (Normal) Comments: Vitamin D 25(OH) Status Range Deficiency <20 ng/mL (50nmol/L) Insuffciency 20 - 30 ng/mL (50 - 75 nmol/L) Sufficiency 30 - 100 ng/mL (75 - 250 nmol/L) Toxicity >100 ng/mL (>250 nmol/L) :24 Urinalysis, Routine (Dipstick) Comments: Has pt arrived? YHow was Urine Obtained? CLEAN CATCHTest performed at:[facility] [address] [place] [address] LEUK ESTERASE Negative /ul (Normal) [...] pt arrived? YHas pt arrived? YTest performed at:[facility] [address] [place] [address] GAP 5 (Normal) Range: 5-15 [...] pt arrived? YHas pt arrived? YTest performed at:[facility] Cpshxqrjzs9177 [place], [place] [id number] VLDL 12 mg/dL (Normal) Range: 5-40 LDL [...] UR Comments: Has pt arrived? YTest performed at:[facility] Nerztrletk2060 [place] [address] MALB:CREAT 4.2 {mg/g_CRE} (Normal) MICROALBUMIN,UR 5.6 mg/L (Normal) UR CREAT 131.9 mg/dL (Normal) :23 Thyroid Stim Hormone (TSH) Comments: Has pt arrived? YHas pt arrived? YTest performed at:[facility] R[address]vcsizwcn45[address] [place] [address] TSH 1.09 {uIU/mL} (Normal) Range: 0.358-3.74 :22 CBC W/Diff, Automated Comments: Has pt arrived? YTest performed at:[facility] Npcnvvsfsi9[address] [place] [address] Absolute Lymph 1.37 {X10_3/ul} (Normal) [...] (Abnormal) Range: 4.4-11.0 :54 HgA1C , Office (25595) HgA1C , Office 5.8 % (Normal) Range: 4.6 - 7.1 :02 Basic Metabolic Profile (BMP) Comments: ADDED BMPTest performed at:[facility] Bllcsroumz6864 [facility] [place] [address] GAP 6 (Normal) Range: 5-15 CO2 27.0 [...] 70-110 :02 Lipid Profile Comments: Test performed at:[facility] Pgagtbvnrc8241 [facility]. [place], [place] [address] VLDL 96 mg/dL (Abnormal) Range: 5-40 LDL [...] Risk :02 Liver Profile Comments: Test performed at:[facility] Ltmvulsfrk64[address] [place], [place] [address] D BILI 0.10 mg/dL (Normal) Range: 0.00-0.30 [...] UCOL Yellow (Normal) :25 HgA1C , Office (70261) HgA1C , Office 5.8 % (Normal) Range: 4.6 - 7.1 :10 Blood Glucose , Office (00068) Blood Glucose , Office 83 (Normal) :10 HgA1C , Office (88511) HgA1C , Office 5.7 % (Normal) Range: [...] 4.4-11.0 BASOPHIL 1 % (Normal) Range: 0-1 74-Uta-99982:52 COMP METABOLIC Comments: appt 05/2011 GAP 7 [...] :52 TSH 0.70 {uIU/mL} (Normal) Range: 0.358-3.74 7-Fqw-600265:41 CHEST, PA AND LATERAL Radiology Report See [...] MD on 08/13/10 1143 Sign by: JESS HNEDRICKS MD 32-Sbz-276923:21 COMPLETE UA BACTERIA 0 SEEN {/hpf} (Normal) [...] NEGATIVE 0.06 - 0.59 AT RISK OF IN > OR = 0.60 SUGGEST IN :52 COMP METABOLIC Comments: Please Note: TROPONIN [...] 0.8-1.3 GLU 94 mg/dL (Normal) Range: 70-110 28-Tnc-10788:21 COMP METABOLIC GAP 10 (Normal) Range: 5-15 [...] 7-18 GLU 98 mg/dL (Normal) Range: 70-110 87-Zmq-11931:21 LIPID Comments: appt 07/24/10 VLDL 33 mg/dL [...] 200-240 mg/dL Borderline >240 mg/dL High Risk 0-Qjy-630718:52 KIDNEY Radiology Report See Note (Normal) Comments: [...] on 05/15/10 44 by Moshe Manuelranscribed on 05/16/1031 by [...] CHOL 127 mg/dL (Normal) Comments: <200 mg/dL Zvyadnlhj386-524 mg/dL Borderline>240 mg/dL High Risk :10 CBCD [...] 11.6-14.6 WBC 8.7 K/mm3 (Normal) Range: 4.4-11.0 10-Ptr-98634:10 RENAL Comments: ORDERED BMPMARY CIESA ORDERED RENAL CBCD CL 104 mmol/L (Normal) [...] CHOL 146 mg/dL (Normal) Comments: <200 mg/dL Lahtjxwro395-183 mg/dL Borderline>240 mg/dL High Risk TRIG 166 [...] Report See Note (Normal) Comments: Exam Number: [id number] CLINICAL: Fatigue MRI BRAIN WITH AND WITHOUT [...] of remotetrauma. Reported By: HUEY ERAZO M.D. 21-Dzv-824001:19 CHIQUI-D [id number] CHIQUI-DIRECT SeeNote (Normal) Comments: Result: NegativePerformed At: [facility] Pgrlbu2489 [place], [place] [id number] :07 B12/FOLATES FOLATES 26.50 ng/mL (Abnormal) Range: 3.1-17.5 VITAMIN B12 1068 pg/mL (Normal) Range: 254-1320 :07 RHEUMATOID FAC < 10 {IU/mL} (Normal) :07 [...] 4.6-6.2 WBC 9.4 K/mm3 (Normal) Range: 4.4-11.0 2-Nku-073921:18 CULTURE, THROAT See Note (Normal) Comments: Normal throat susanne isolated. No beta-hemolyticstreptococcus isolated. 14-Apr-20098:48 Rapid Strep Test, Office (51150) Rapid Strep Test, Office Negative (Normal) 8-Dfj-313131:59 CTA NECK W/WO CONTRAST Radiology Report See Note (Normal) Comments: Exam Number: [id number] HISTORYCarotid stenosis. Abnormal carotid artery ultrasound. CT [...] K 4.5 mmol/L Range: 3.5-5.1 0:00 (Normal) 24-Nfj-638420:19 BMP BUN 35 mg/dL (Abnormal) Range: 7-18 [...] 254-1320 :43 FECAL OCCULT- Tubes sent home (51497) FECAL OCCULT HGB ASSAY, QUAL, 1-3 SIMULTANEOU neg (Normal) :12 Rapid Flu (46861 x 2) Comments: done BC INFLUENZA IMMUNOASSY [...] was performed using the TPSA method for theAVIA chemistry system.Values obtained with different assay methods [...] 47-70 WBC 5.1 K/mm3 (Normal) Range: 4.4-11.0 80-Ulc-36983:29 COMP METABOLIC A/G 0.9 {RATIO} (Normal) Range: [...] GLU 2 HR GLU GTT-2 HOUR from 918:[id number]. Range: 70-120 :05 GLU GTT-1 HOUR 183 mg/dL (Abnormal) Comments: 2HR GTT GLU 1 HR GLU GTT-1 HOUR from 918:Z34102Q. Range: 120-170 :31 GLU GTT-30 min. 170 mg/dL (Normal) Comments: 2HR GTT GLU 1/2 HR GLU GTT-30 min. from 918:X20250W. Range: 110-170 :00 D BILI 0.09 mg/dL [...] Comments: 2HR GTT FASTING GLU GTT-FASTING from 0919:Y53520X. Range: 70-110 Comments: GLUCOSE TOLERANCE TEST Reference [...] was performed using the TPSA method for theAudemat chemistry system.Values obtained with different assay methods [...] Lumbar stenosis with neurogenic claudication : Reviewed Integration Software Developer Letter Indication: Lumbar stenosis with neurogenic claudication [...] disease Coronary artery disease, non-occlusive : Reviewed Integration Software Developer Letter Indication: Coronary artery disease, non-occlusive BMI 40.0-44.9, adult : Eprescribed prescriptions (G8553) Indication: BMI 40.0-44.9, adult Impaired fasting glucose : Follow up in 4 months Indication: Impaired fasting glucose Coronary artery disease, non-occlusive : Reviewed Integration Software Developer Letter Indication: Coronary artery disease, non-occlusive Hypertension [...] controlled Coronary artery disease, non-occlusive : Reviewed Integration Software Developer Letter Indication: Coronary artery disease, non-occlusive Hypertension [...] glucose Coronary artery disease, non-occlusive : Reviewed Integration Software Developer Letter Indication: Coronary artery disease, non-occlusive 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 Indication: Hypertension with heart disease Impaired fasting glucose : *Diabetes Education Indication: Impaired fasting glucose Nonsmoker : Eprescribed prescriptions (G8553) Indication: Nonsmoker Depression, acute : Reviewed Integration Software Developer Letter Indication: Depression, acute Other chronic pain : Reviewed Lab Indication: Other chronic pain Depression, acute : Follow up in 2 weeks Indication: Depression, acute Accidental fall, initial encounter : Follow up in 1 week Indication: Accidental fall, initial encounter Depression : Reviewed Lab Indication: Depression Depression : Reviewed Diagnostic Tests Indication: Depression Depression : Reviewed Integration Software Developer Letter Indication: Depression Cellulitis : Eprescribed prescriptions (G8553) Indication: Cellulitis Cellulitis : Follow up in 1 week Indication: Cellulitis Nonsmoker : Eprescribed prescriptions (G8553) Indication: Nonsmoker Hypertension with heart disease : Reviewed Lab Indication: Hypertension with heart disease Impaired fasting glucose : Follow up in 4 months Indication: Impaired fasting glucose Hypertension with heart disease : Reviewed Integration Software Developer Letter Indication: Hypertension with heart disease Hypertension [...] artery disease Coronary artery disease : Reviewed Integration Software Developer Letter Indication: Coronary artery disease Carotid stenosis : Reviewed Integration Software Developer Letter Indication: Carotid stenosis Hypercholesterolemia : Cholesterol [...] artery disease Coronary artery disease : Reviewed Integration Software Developer Letter: sees Dr Maria Indication: Coronary artery disease Impaired fasting glucose : Eprescribed prescriptions (G8553) Indication: Impaired fasting glucose Hypercholesterolemia : Cholesterol mgmt Indication: Hypercholesterolemia Coronary artery disease : Continue Current Prescription(s) Indication: Coronary artery disease Coronary artery disease : Reviewed Integration Software Developer Letter Indication: Coronary artery disease 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 Indication: Hypertension with heart disease Hypertension with heart disease : Follow up in 4 months Indication: Hypertension with heart disease Impaired fasting glucose : Eprescribed prescriptions (G8553) Indication: Impaired fasting glucose Coronary artery disease : Reviewed Integration Software Developer Letter Indication: Coronary artery disease Impaired fasting [...] Indication: Hypercholesterolemia Coronary artery disease : Reviewed Integration Software Developer Letter Indication: Coronary artery disease Impaired fasting [...] MONTHS Indication: Coronary artery disease Planned Observations CBC, PLATELETS & MANUAL DIFF (51173)Indication: Hypertension with heart disease On: 57-Tld-818679:05 Request PSA (PROSTATE SPECIFIC ANTIGEN) (V76.44)Indication: Encounter for screening for malignant neoplasm of prostate (Renamed from Screening for prostate cancer) On: 64-Upu-003755:54 Request CALCIFIDIOL (26495) VIT D 25Indication: Vitamin D deficiency On: :37 Request TSH (12961)Indication: Atrial fibrillation, controlled On: :37 Request URINALYSIS, W/ MICRO (34193)Indication: Impaired fasting glucose On: 97-Ipr-457942:37 Request MICROALBUMIN: CREATININE RATIO (03936) AND (04293)Indication: Impaired fasting glucose On: 51-Ddl-810152:37 Request METABOLIC PANEL, COMPREHENSIVE (76729)Indication: Impaired fasting glucose On: 65-Drd-546883:37 Request LIPOPROTEIN, BLD, BY NMR (43239)Indication: Impaired fasting glucose On: 34-Uen-912374:37 Request CBC W/AUTO DIFF WBC (70456)Indication: Impaired fasting glucose On: 17-Quh-598228:37 Request VITAMIN B-12 (CYANOCOBALAMIN) (50539)Indication: Vitamin B12 deficiency On: 96-Exr-780404:37 Request MAGNESIUM (25697)Indication: Hypermagnesemia On: 45-Vwk-408683:36 Request HgA1C , Office ([id number])Indication: Impaired fasting glucose On: 83-Atg-339055:57 Request TSH ([id number])Indication: Atrial fibrillation, controlled On: :30 Request URINALYSIS, W/ MICRO ([id number])Indication: Hypertension with heart disease On: :30 Request MICROALBUMIN: CREATININE RATIO ([id number]) AND (98653)Indication: Hypertension with heart disease On: :30 Request METABOLIC PANEL, COMPREHENSIVE (30661)Indication: Hypertension with heart disease On: :30 Request LIPID PANEL (90508)Indication: Coronary artery disease, non-occlusive On: : Request CBC W/AUTO DIFF WBC ([id number])Indication: Hypertension with heart disease On: :29 Request VITAMIN B-12 (CYANOCOBALAMIN) (74814)Indication: Vitamin B12 deficiency On: :29 Request CALCIFIDIOL (39214) VIT D 25Indication: Vitamin D deficiency On: :29 Request VITAMIN B-12 (CYANOCOBALAMIN) (82263)Indication: Vitamin B12 deficiency On: :36 Request CALCIFIDIOL (50412) VIT D 25Indication: Vitamin D deficiency On: 06-Oza-03764:35 Request TSH ([id number])Indication: Impaired fasting glucose On: :34 Request URINALYSIS, W/ MICRO (72735)Indication: Hypertension with heart disease On: :34 Request MICROALBUMIN: CREATININE RATIO (69136) AND (71471)Indication: Hypertension with heart disease On: :34 Request METABOLIC PANEL, COMPREHENSIVE (84742)Indication: Hypertension with heart disease On: :34 Request LIPID PANEL (94897)Indication: Hypercholesterolemia On: :34 Request CBC W/AUTO DIFF WBC (82693)Indication: Hypertension with heart disease On: :34 Request RIBOFLAVIN (B-2) (67441)Indication: Drug intoxication with delirium On: 86-Jqt-635466:09 Request LIPID PANEL ([id number])Indication: Hypercholesterolemia On: :35 Request VITAMIN B-12 (CYANOCOBALAMIN) (58741)Indication: Vitamin B12 deficiency On: :28 Request CALCIFIDIOL (20393) VIT D 25Indication: Vitamin D deficiency On: : Request MAGNESIUM (74856)Indication: Hypermagnesemia On: : Request FECAL OCCULT- Tubes sent home (73437)Indication: Encounter for screening for malignant neoplasm of colon (Renamed from Special screening for malignant neoplasms, colon) On: : Request PSA (PROSTATE SPECIFIC ANTIGEN) (V76.44)Indication: Encounter for screening for malignant neoplasm of prostate (Renamed from Screening for prostate cancer) On: :03 Request TSH ([id number])Indication: Impaired fasting glucose On: :22 Request URINALYSIS, W/ MICRO ([id number])Indication: Impaired fasting glucose On: :22 Request MICROALBUMIN: CREATININE RATIO (52854) AND (77214)Indication: Impaired fasting glucose On: :22 Request METABOLIC PANEL, COMPREHENSIVE (52111)Indication: Impaired fasting glucose On: 38-Knj-79886:21 Request LIPID PANEL (66048)Indication: Hypercholesterolemia On: :21 Request CBC W/AUTO DIFF WBC (56837)Indication: Impaired fasting glucose On: :21 Request CALCIFIDIOL (69876) VIT D 25Indication: Vitamin D deficiency On: 68-Nqr-94505:21 Request HEPATIC FUNCTION PANEL (33526)Indication: Elevated liver enzymes On: 49-Fds-946062:29 Request METABOLIC PANEL, COMPREHENSIVE (69012)Indication: Dizzy On: :54 Request CBC W/AUTO DIFF WBC ([id number])Indication: Dizzy On: 57-Zli-357535:54 Request FECAL OCCULT- Tubes sent home ([id number])Indication: Melena On: :52 Request CALCIFIDIOL (41254) VIT D 25Indication: Dysthymic On: :52 Request TSH ([id number])Indication: Hypercholesterolemia On: :52 Request URINALYSIS, W/ MICRO (17663)Indication: Hypertension with heart disease On: 47-Pkt-686321:52 Request MICROALBUMIN: CREATININE RATIO (36603) AND ([id number])Indication: Hypertension with heart disease On: :52 Request METABOLIC PANEL, COMPREHENSIVE (15639)Indication: Hypertension with heart disease On: :52 Request LIPID PANEL (47774)Indication: Hypercholesterolemia On: :52 Request CBC W/AUTO DIFF WBC (81496)Indication: Hypertension with heart disease On: 46-Vld-968483:51 Request TSH ([id number])Indication: Impaired fasting glucose On: :45 Request URINALYSIS, W/ MICRO (79154)Indication: Impaired fasting glucose On: :45 Request MICROALBUMIN: CREATININE RATIO (83126) AND (23230)Indication: Impaired fasting glucose On: :45 Request METABOLIC PANEL, COMPREHENSIVE (01183)Indication: Impaired fasting glucose On: :45 Request LIPID PANEL (31831)Indication: Impaired fasting glucose On: :45 Request CBC W/AUTO DIFF WBC ([id number])Indication: Impaired fasting glucose On: :45 Request CALCIFIDIOL (87734) VIT D 25Indication: Impaired fasting glucose On: :55 Request LIPID PANEL (70891)Indication: Hypertension On: :50 Request TSH ([id number])Indication: Impaired fasting glucose On: :50 Request MICROALBUMIN: CREATININE RATIO (31762) AND ([id number])Indication: Hypertension On: :50 Request METABOLIC PANEL, COMPREHENSIVE (49866)Indication: Hypertension On: :50 Request MICROALBUMIN: CREATININE RATIO (02569) AND ([id number])Indication: Hypertension On: :38 Request URINALYSIS (74607)Indication: Hypertension On: :36 Request CBC WITH MANUAL DIFF (02272)Indication: Hypertension On: :36 Request Metabolic Panel, Comprehensive (49615)Indication: Hypertension On: :36 Request Lipid Panel ([id number])Indication: Hypercholesterolemia On: :36 Request MICROALBUMIN: CREATININE RATIO (25835) AND ([id number])Indication: Hypertension On: 44-Vyl-830413:57 Request URINALYSIS ([id number])Indication: Hypertension On: :57 Request CBC WITH MANUAL DIFF ([id number])Indication: Hypertension On: 47-Ldt-809657:56 Request Metabolic Panel, Comprehensive ([id number])Indication: Hypertension On: 61-Lei-185923:56 Request CALCIFEDIOL (13610)Indication: Hypertension On: 56-Esz-160963:56 Request TSH ([id number])Indication: Hypertension On: :56 Request Lipid Panel (99437)Indication: Hypercholesterolemia On: 61-Etd-432200:56 Request Lipid Panel ([id number])Indication: Hypercholesterolemia On: 40-Zyz-946860:13 Request URINALYSIS, W/ MICRO ([id number])Indication: Hypertension On: 9-Xpv-434735:02 Request MICROALBUMIN: CREATININE RATIO (62939) AND ([id number])Indication: Impaired fasting glucose On: 7-Uot-052139:02 Request CBC W/AUTO DIFF WBC ([id number])Indication: Impaired fasting glucose On: 6-Vjx-823597:02 Request METABOLIC PANEL, COMPREHENSIVE (94551)Indication: Impaired fasting glucose On: 8-Fnj-479533:02 Request PSA (PROSTATE SPECIFIC ANTIGEN) (V76.44)Indication: Benign prostatic hyperplasia with urinary obstruction and other lower urinary tract symptoms On: 15-Jan-20149:55 Request CREATINE KINASE TOTAL (31099)Indication: SOB (shortness of breath) on exertion On: 08-Khk-886408:32 Request Comments: stat D-Dimer (05815)Indication: SOB (shortness of breath) on exertion On: :32 Request CBC (Auto) ([id number])Indication: SOB (shortness of breath) on exertion On: :32 Request Troponin I (08149)Indication: SOB (shortness of breath) on exertion On: :31 Request CPK MB FRACTION (57650)Indication: SOB (shortness of breath) on exertion On: 77-Gqe-931642:31 Request MICROALBUMIN: CREATININE RATIO (68981) AND (49508)Indication: Impaired fasting glucose On: :10 Request CBC WITH MANUAL DIFF (98890)Indication: Hypertension On: :04 Request LIPID PANEL (95695)Indication: Hypercholesterolemia On: : Request METABOLIC PANEL, COMPREHENSIVE (70517)Indication: Hypertension On: : Request CBC WITH MANUAL DIFF ([id number])Indication: Hypertension On: : Request URINALYSIS, W/ MICRO (01037)Indication: Hypertension On: Request TSH ([id number])Indication: Dysthymic On: Request PSA (PROSTATE SPECIFIC ANTIGEN) (V76.44)Indication: Benign prostatic hyperplasia with urinary obstruction and other lower urinary tract symptoms On: : Request LIPID PANEL (92787)Indication: Hypercholesterolemia On: : Request METABOLIC PANEL, COMPREHENSIVE (14475)Indication: Hypertension On: : Request ASSAY, TROPONIN, QUANTITATIVE (aka Troponin I) (37072)Indication: SOB (shortness of breath) on exertion On: :08 Request Comments: stat D-Dimer (11272)Indication: SOB (shortness of breath) on exertion On: :08 Request Comments: stat URINALYSIS, W/ MICRO (45761)Indication: Edema On: : Request TSH ([id number])Indication: Edema On: : Request METABOLIC PANEL, COMPREHENSIVE (02975)Indication: Edema On: : Request CBC WITH MANUAL DIFF ([id number])Indication: Edema On: : Request URINE BERTHA CULTURE-SUKHWINDER COL COUNT ([id number])Indication: PYELONEPHRITIS, ACUTE NOS On: :25 Request LIPID PANEL ([id number])Indication: Hypercholesterolemia On: :12 Request METABOLIC PANEL, COMPREHENSIVE (71522)Indication: Hypertension On: :12 Request PSA (PROSTATE SPECIFIC ANTIGEN) (V76.44)Indication: Benign prostatic hyperplasia with urinary obstruction and other lower urinary tract symptoms On: :33 Request URINALYSIS, W/ MICRO (72572)Indication: Hypertension On: :33 Request CBC WITH MANUAL DIFF ([id number])Indication: Hypertension On: :33 Request METABOLIC PANEL, COMPREHENSIVE (94483)Indication: Hypertension On: :32 Request LIPID PANEL (20497)Indication: Hypercholesterolemia On: :32 Request CBC WITH MANUAL DIFF ([id number])Indication: Hypertension On: :14 Request METABOLIC PANEL, COMPREHENSIVE (02345)Indication: Hypertension On: :14 Request LIPID PANEL (49942)Indication: Hypercholesterolemia On: 3-Qyz-155113:13 Request CBC, PLATELETS & AUT DIFF ([id number])Indication: Anemia, unspecified On: 0-Tsa-986116:38 Request Comments: Repeat 3wks beginning june Renal function Panel (80483)Indication: Abnormal blood chemistry On: 6-Xyk-983908:35 Request Comments: repeat 3 wks Beginning of June Folate (39647)Indication: Fatigue On: :23 Request VITAMIN B-12 (CYANOCOBALAMIN) (50521)Indication: Fatigue On: :23 Request TSH ([id number])Indication: Fatigue On: :23 Request SED RATE ERYTHROCYTE (55967)Indication: Fatigue On: :23 Request RHEUMATOID FACTOR-QUANT (21769)Indication: Fatigue On: :23 Request METABOLIC PANEL, COMPREHENSIVE (03629)Indication: Fatigue On: :23 Request C-REACTIVE PROTEIN (53695)Indication: Fatigue On: :23 Request CBC (AUTO) (09131)Indication: Fatigue On: :23 Request CHIQUI (ANTINUCLEAR ANTIBODY) (76912)Indication: Fatigue On: :23 Request BERTHA CULTURE-OTHER (86233)Indication: Pharyngitis, acute On: :48 Request TSH (98042)Indication: Dysthymic On: :48 Request PSA (PROSTATE SPECIFIC ANTIGEN) (V76.44)Indication: Benign prostatic hyperplasia with urinary obstruction and other lower urinary tract symptoms On: :48 Request METABOLIC PANEL, COMPREHENSIVE (14140)Indication: Hypertension On: :46 Request LIPID PANEL (16117)Indication: Hypercholesterolemia On: :46 Request CBC WITH MANUAL DIFF ([id number])Indication: Anemia, unspecified On: :46 Request Metabolic Panel, Basic (66946)Indication: Edema On: :44 Request FOLIC ACID SERUM (68505)Indication: Anemia, unspecified On: :43 Request VITAMIN B-12 (CYANOCOBALAMIN) (72874)Indication: Anemia, unspecified On: :43 Request RETICULOCYTE COUNT MANUL ([id number])Indication: Anemia, unspecified On: :43 Request LDH (LD) (LACTATE DEHYDROGENASE) (00592)Indication: Anemia, unspecified On: :43 Request IRON BINDING CAPACITY (TIBC) (06783)Indication: Anemia, unspecified On: :43 Request FERRITIN (87518)Indication: Anemia, unspecified On: :43 Request IRON ([id number])Indication: Anemia, unspecified On: :43 Request CBC WITH MANUAL DIFF ([id number])Indication: Edema On: :40 Request LIPID PANEL (51106)Indication: Hypercholesterolemia On: :36 Request URINALYSIS W/O MICRO (40604)Indication: Hypertension On: :36 Request TSH ([id number])Indication: Hypertension On: :36 Request METABOLIC PANEL, COMPREHENSIVE (97053)Indication: Hypertension On: :36 Request CBC WITH MANUAL DIFF ([id number])Indication: Hypertension On: :36 Request PSA (PROSTATE SPECIFIC ANTIGEN) (V76.44)Indication: Benign prostatic hyperplasia with urinary obstruction and other lower urinary tract symptoms On: :36 Request METABOLIC PANEL, COMPREHENSIVE (38334)Indication: Hypertension On: 44-Ldx-82583:27 Request LIPID PANEL ([id number])Indication: Hypercholesterolemia On: 11-Imr-04425:26 Request HEPATIC FUNCTION PANEL ([id number])Indication: Hypercholesterolemia On: 97-Jzr-29696:26 Request HEPATIC FUNCTION PANEL ([id number])Indication: Hypercholesterolemia On: 35-Qfd-96531:52 Request LIPID PANEL (29951)Indication: Hypercholesterolemia On: :52 Request PSA (PROSTATE SPECIFIC ANTIGEN) (V76.44)Indication: Benign prostatic hyperplasia with urinary obstruction and other lower urinary tract symptoms On: 06-Izn-92397:52 Request URINALYSIS W/O MICRO (97537)Indication: Hypertension On: 96-Fxh-656693:23 Request TSH ([id number])Indication: Hypertension On: 46-Srw-199594:23 Request METABOLIC PANEL, COMPREHENSIVE (60473)Indication: Hypertension On: 90-Trz-620263:23 Request CBC WITH MANUAL DIFF ([id number])Indication: Hypertension On: 90-Xnn-747543:22 Request LIPID PANEL (75793)Indication: Hypercholesterolemia On: 36-Red-023812:17 Request HEPATIC FUNCTION PANEL ([id number])Indication: Hypercholesterolemia On: 49-Abp-520585:17 Request METABOLIC PANEL, COMPREHENSIVE (04725)Indication: Hypertension On: 44-Jpb-030858:50 Request VITAMIN B-12 (CYANOCOBALAMIN) (80929)Indication: Fatigue On: :03 Request METABOLIC PANEL, COMPREHENSIVE (08330)Indication: Fatigue On: 12-Lgx-97252:03 Request GLUCOSE TOLERANCE TEST (GTT) 2 hour ([id number])Indication: Fatigue On: :02 Request LIPID PANEL ([id number])Indication: Hypercholesterolemia On: 53-Qzz-91048:10 Request Comments: please send to Dr Shore PSA (PROSTATE SPECIFIC ANTIGEN) (40026)Indication: Benign prostatic hyperplasia with urinary obstruction and other lower urinary tract symptoms On: :10 Request MICROALBUMIN URINE QUANT ([id number])Indication: Hypertension On: 52-Nok-95917:10 Request URINALYSIS W/O MICRO ([id number])Indication: Hypertension On: :10 Request TSH ([id number])Indication: Dysthymic On: 96-Tfq-67283:10 Request METABOLIC PANEL, COMPREHENSIVE (82048)Indication: Hypertension On: :10 Request CBC WITH MANUAL DIFF ([id number])Indication: Hypertension On: :10 Request CBC WITH MANUAL DIFF ([id number])Indication: Hypertension On: :53 Request METABOLIC PANEL, COMPREHENSIVE ([id number])Indication: Hypertension On: :53 Request URINALYSIS W/O MICRO (48759)Indication: Hypertension On: :53 Request TSH ([id number])Indication: Hypertension On: :53 Request LIPID PANEL ([id number])Indication: Hypercholesterolemia On: :53 Request Planned Encounters Medical; 3 Week FU - 4 week fu On: 24-May-2018 9:15 [facility] Jazz Rodas DO, DO, Kathleen Medical; 4 Month FU - 4 week fu On: 25-Aug-2018 8:45 [facility] Jazz Rodas DO, DO, Kathleen Planned Procedures UYPU-HO-HLNB BEHAVIORAL COUNSELING On: 26-Apr-2018 Intent FOR OBESITY, 15 MINUTES (G0447)By: Jazz Rodas DO, DO, Kathleen INTENSIVE BEHAVIORAL THERAPY TO On: 26-Apr-2018 Intent REDUCE CARDIOVASCULAR DISEASE RISK, INDIVIDUAL, GVFW-XH-EPQT, ANNUAL, 15 MINUTES (G0446)By: Jazz Rodas DO, DO, Kathleen Flu Vaccine (Quadrivalent) 87590Xs: On: 14-Feb-2018 Intent Jazz Rodas DO, DO, Comments: Lot #[id number]-L dltd, IMDose prefilled syringegiven by: CManchBladimir reviewed and ABN signed Jazz ELECTROCARDIOGRAM, COMPLETE (ECG) On: 27-Oct-2017 Intent (80345)By: Jazz Rodas DO Comments: nsr no acute chg Jazz Rodas DO PNEUM VAC ADLT/IMUMNOSPR, SBC/INTRM On: 17-Dec-2016 Intent (09060)By: Jazz Rodas DO Comments: Lot:[id number]:05/19/18Dose:0.5mgRoute:imSite:l armGiven By:YVETTE signed Jazz Rodas DO LKWZ-QH-MEXY BEHAVIORAL COUNSELING On: 17-Dec-2016 Intent FOR OBESITY, 15 MINUTES (G0447)By: Jazz Rodas DO, DO, Kathleen INTENSIVE BEHAVIORAL THERAPY TO On: 17-Dec-2016 Intent REDUCE CARDIOVASCULAR DISEASE RISK, INDIVIDUAL, HXIK-XP-SZEI, ANNUAL, 15 MINUTES (G0446)By: Jazz Rodas DO, DO, Kathleen Flu Vaccine (Quadrivalent) 98007Xv: On: 10-Dec-2016 Intent Jazz Rodas DO, DO, Comments: lot: [id number]: 09/26/17ite/route: L jessika, IMamt: 0.5mlVIS and ABN signed when applicableChelsDUONG piña ELECTROCARDIOGRAM, COMPLETE (ECG) On: 04-Aug-2016 Intent (17062)By: Jazz Rodas DO Comments: sinus yoko - no acute chg Jazz Rodas DO Venous Doppler - LeftBy: Avis PERERA, On: 23-Apr-2016 Intent Raya Comments: L lower extremity US DOPPLER VEIN OF EXTREMITY On: 21-Apr-2016 Intent (66572)By: Raya Albarran MD Comments: US doppler right [...] wound centre and Raya Albarran US GROIN (98565)By: Raya Albarran MD On: 13-Apr-2016 Intent Comments: US soft tissue of left hip, Rule out abcess. Flu Vaccine (Quadrivalent) 25062Dt: On: 12-Dec-2015 Intent Jazz Rodas DO, DO, Comments: lot [id number] exp 10/08/16- R arm aJzz INTENSIVE BEHAVIORAL THERAPY TO On: 12-Dec-2015 Intent REDUCE CARDIOVASCULAR DISEASE RISK, INDIVIDUAL, HNFQ-FV-KWZM, ANNUAL, 15 MINUTES (G0446)By: Jazz Rodas DO Irvin DOJazz DOXK-AE-ZIRT BEHAVIORAL COUNSELING On: 12-Dec-2015 Intent FOR OBESITY, 15 MINUTES (G0447)By: Jazz Rodas DO DO, Jazz B 12 Injection, 1000 mcg (J3420)By: On: 26-Nov-2015 Intent Jazz Rodas DO Irvin DO, Comments: B12lot:[id number]:ite:lt deltroute:IMdose:1mlD.CleoPRECIOUS Jazz B 12 Injection, 1000 mcg (J3420)By: On: 22-Oct-2015 Intent Irvin LAURA, Jazz Irvin DO, Comments: lot: [id number]: ite/route: L del/IMamt: 1mLVIS signed when applicableDUONG Desai Jazz CT - Brain/Head (Without On: 25-Sep-2015 Intent Contrast)By: Jazz Rodas DO, DO, Kathleen US DOPPLER CAROTID BILATERAL On: 25-Sep-2015 Intent (36780)By: Jazz Rodas DO DOJazz Cartoid DopplerBy: Irvin LAURA, On: 30-Jul-2015 Intent Jazz Ballard DO Flu Vaccine (Quadrivalent) 92250Hn: On: 15-Jan-2015 Intent Jazz Rodas DO DO, Comments: Lot:[id number]:10/09/15Dose:0.5mLRoute:IMSite:L DltdGiven By:YVETTE signed Jazz EKG (24328)By: Jazz Rodas DO On: 13-Jun-2014 Intent Jazz Rodas DO ENHV-IM-GKMP BEHAVIORAL COUNSELING On: 06-Mar-2014 Intent FOR OBESITY, 15 MINUTES (G0447)By: Jazz Rodas DO, DO, Kathleen Prevnar 13 (79870)By: Irvin LAURA, On: 06-Mar-2014 Intent Jazz Rodas DOIvoryJazz Comments: lot [id number] 06/2015location L armroute imgiven by - krystleVIS and/or ABN signed Cartoid DopplerBy: Rupinder Encarnacion DO On: 15-Jan-2014 Intent FLU VAC, SPLIT, >3 YEARS, INTRAMUSC On: 15-Jan-2014 Intent (39074)By: Rupinder Encarnacion DO Comments: Lot #:[id number] date:12/2015Amount given:0.5mlRoute: IMSite given: left deltoidGiven by: PRECIOUS Serna ADMINISTRATION OF INFLUENZA VIRUS On: 15-Jan-2014 Intent VACCINE (G0008)By: Rupinder Encarnacion DO FLU VAC, SPLIT, >3 YEARS, INTRAMUSC On: 13-Feb-2013 Intent (83409)By: Rupinder Encarnacion DO Comments: Lot:[id number]:Dose:0.5mLRoute:IMSite:L DltdGiven By:YVETTE bal IMMUNIZ ADMNIN, 1 VAC, SNGL/COMBO On: 13-Feb-2013 Intent (21715)By: Perla Ruano IMMUNIZ ADMNIN, 1 VAC, SNGL/COMBO On: 08-Feb-2012 Intent (84140)By: Chanel Cardoso CNP FLU VAC, SPLIT, >3 YEARS, INTRAMUSC On: 08-Feb-2012 Intent (84714)By: Chanel Cardoso CNP DANA (Ankle Brachial Index) On: 14-Jul-2011 Intent (70054)By: Nieves Masters Comments: at DF desk Spirometry (29918)By: Kael PERERA, On: 01-Jul-2011 Intent Ling Roberts Aerosol Treatment (02128)By: Kael On: 01-Jul-2011 Intent Ling PERERA EKG (05501)By: Ling Scruggs MD On: 01-Jul-2011 Intent DANA (Ankle Brachial Index) On: 21-May-2011 Intent (35081)By: Rupinder Encarnacion DO Cartoid DopplerBy: Rupinder Encarnacion DO On: 21-May-2011 Intent Comments: may FLU VAC, SPLIT, >3 YEARS, INTRAMUSC On: 10-Feb-2011 Intent (78088)By: Maryls Valencia RN Comments: Lot #: [id number] date: 09/20Amount given: 0.5 mlRoute: IMSite given: left deltoidGiven by: TORITO Gonzales IMMUNIZ ADMNIN, 1 VAC, SNGL/COMBO On: 10-Feb-2011 Intent (30949)By: Marlys Valencia RN Eprescribed prescriptions (G8553)By: On: 24-Nov-2010 Intent Fast DO, Rupinder A Echo CompleteBy: Paz EVANGELISTAMera On: 04-Aug-2010 Intent Pulse Oximetry (49915)By: Blanco DO, On: 24-Jul-2010 Intent Rupinder A Comments: 96 Bio Z (77101)By: Fast DO, Rupinder A On: 24-Jul-2010 Intent Comments: good cardiac output and svr- thoracic fluid ok EKG (36337)By: Fast DO Rupinder A On: 24-Jul-2010 Intent Comments: ekg showed normal sinus rhythym, normal axis, no acute st/t wave changes Echo CompleteBy: Fast DO, Rupinder A On: 24-Jul-2010 Intent DANA (Ankle Brachial Index) On: 24-Jul-2010 Intent (16347)By: Fast DO Rupinder A Cartoid DopplerBy: Fast DO, Rupinder A On: 24-Jul-2010 Intent Radiology - Chest- PA and LatBy: On: 24-Jul-2010 Intent Fast DO, Rupinder A Radiology - Chest- PA and LatBy: On: 09-Jul-2010 Intent Irvin DO, Jazz Irvin DO, Jazz Ultrasound - RenalBy: Irvin LAURA, On: 14-May-2010 Intent Jazz Irvin DO, Jazz Cartoid DopplerBy: Fast DO, Rupinder A On: 25-Mar-2010 Intent DANA (Ankle Brachial Index) On: 25-Mar-2010 Intent ([id number])By: Blanco LAURA Rupinder A IMMUNIZ ADMNIN, 1 VAC, SNGL/COMBO On: 15-Jan-2010 Intent (03466)By: Marlys Valencia RN Comments: Lot #: [id number] date: mount given: 0.5 mlRoute: IMSite given: left deltoidGiven by: Valeriano Green RN FLU VACCINE NO PRESERV 3 & > On: 15-Jan-2010 Intent (56567)By: Marlys Valencia RN Cartoid DopplerBy: Rupinder Encarnacion DO On: 26-Nov-2009 Intent Comments: sept TDAP VACCINE >7 IM (31202)By: On: 22-Sep-2009 Intent Mera Mullen LPN Comments: Lot #[id number]-1/24/12Site-left deltoidgiven by:[facility] Holter Monitor 24 hrsBy: Walker LOU, On: 21-Apr-2009 Intent Lori ELECTROCARDIOGRAM, COMPLETE (ECG) On: 21-Apr-2009 Intent (60979)By: Chanel Cardoso CNP FLU VAC, SPLIT, >3 YEARS, INTRAMUSC On: 07-Jan-2009 Intent (82419)By: Emili Mullins Comments: Lot #:[id number] date:mount given:0.5mlRoute: IMSite given:left deltGiven by: PRECIOUS Serna IMMUNIZ ADMNIN, 1 VAC, SNGL/COMBO On: 07-Jan-2009 Intent (67071)By: Emili Mullins DANA (Ankle Brachial Index) On: 25-Nov-2008 Intent (82961)By: Uma Altamirano Comments: done>Wf. pt aware. normal findings on both sides. DANA (Ankle Brachial Index) On: 01-Oct-2008 Intent (61567)By: Rupinder Encarnacion DO Cartoid DopplerBy: Rupinder Encarnacion DO On: 01-Oct-2008 Intent Comments: dec Pulse Oximetry (08989)By: Walker LOU, On: 03-Jul-2008 Intent Chanel Hickey Comments: done BC Aerosol Treatment (85254)By: Walker On: 03-Jul-2008 Intent Chanel LOU Comments: done BC FLU VAC, SPLIT, >3 YEARS, INTRAMUSC On: 15-Mar-2008 Intent (06286)By: Alicia Allen ADMINISTRATION OF INFLUENZA VIRUS On: 15-Mar-2008 Intent VACCINE (G0008)By: Alicia Allen Comments: inj given no complicationslot:[id number]:10/08/08site left deltoddose:0.5mlkathryn EKG (61565)By: Rupinder Encarnacion DO On: 27-Dec-2007 Intent Comments: ekg- with sinus with lvh - left axisd deviation Cartoid DopplerBy: Rupinder Encarnacion DO On: 27-Dec-2007 Intent DANA (Ankle Brachial Index) On: 23-Aug-2007 Intent (96053)By: Xiao Busby DANA (Ankle Brachial Index) On: 08-Aug-2007 Intent (71513)By: Rupinder Encarnacion DO DANA (Ankle Brachial Index) On: 02-May-2007 Intent (91793)By: Rupinder Encarnacion DO Flu Vaccine, Split IM (70071)By: On: 24-Jan-2007 Intent Rupinder Encarnacion DO Comments: given o.5cc im in right deltoid lot#[id number] exp.10/09/07-aw Pneumovax (55335)By: Rupinder Encarnacion DO On: 24-Jan-2007 Intent A Comments: given 0.5cc in right deltoid lot#[id number] exp. 02/20/08-aw Overnight Pulse Ox(52856)By: Kehinde, On: 21-Dec-2006 Intent Xiao Echo CompleteBy: Rupinder Encarnacion DO On: 06-Dec-2006 Intent Overnight Pulse OX (91732)By: Blanco On: 06-Dec-2006 Intent Rupinder LAURA EKG (38549)By: Rebekah Stuart LPN On: 23-Jun-2006 Intent Comments: needed to be done for a preop which is scheduled the end of the month with dr. romero DANA (Ankle Brachial Index) On: 15-Jun-2006 Intent (00097)By: Milady Jay LPN DANA (Ankle Brachial Index) On: 01-Jun-2006 Intent (51573)By: Rupinder Encarnacion DO Comments: see Mila- these needs precerted as the insurance didnt pay last time- I discussed with her DANA (Ankle Brachial Index) On: 01-Mar-2006 Intent (78833)By: Rupinder Encarnacion DO Planned Medications Vitamin B-12 [...] Patient Instructions Indication: Impaired fasting glucose Encounters Lab Order On: 27-Apr-2018 12:05 Encounter Diagnosis: Hypertension with heart disease End: 27-Apr-2018 12:06 [facility] Office Visit On: 26-Apr-2018 9:50 Encounter Reason: Follow up for chronic medical issues - The patient feels well with minor complaints and is sleeping well. Patient has been compliant with instructions. Current medication use: no side effects and compli End: 26-Apr-2018 12:40 ant with dosing regimen. Patient sleeps 7 [...] The patient does have durable power of roof bolter and living will. 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 care are podiatric surgeon and junior qa analyst. Encounter Diagnosis: Impaired fasting glucose (790.21), Nonsmoker, [...] The patient does have durable power of roof bolter and living will. The patient has noticed dropping activities and interests, having problems with memory than others, la ck of energy and thinking most people are better off than them. 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 care are podiatric surgeon and financial aid.Encounter Diagnosis: BMI 38.0-38.9,adult, Nonsmoker, Annual Medicare Physical [...] patient does not have durable power of roof bolter. The patient has noticed lack of energy and thinking most people are better off than them. 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 care are podiatric surgeon and other:.Encounter Diagnosis: Annual Medicare Phyiscal WITHOUT [...] in bathroom. The patient has [facility] preventative measures: PSA testing (2013) and colonoscopy (2009). The patient does have durable power of roof bolter and living will. The patient has noticed thinking most people are better off than t hem. 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 care are podiatric surgeon (DR. Maria) and other: (Pain Management- Dr. [...] a day for 2 weeks- and the podiatric surgeon didnt feel he needed to increase meds - just saw them in dec and heart doing well-he sees thuan for pain manaagement and hegives him fenta [...] back. Pt is seeing Dr. Blake in [place] for this and currently getting injections and [...] issues with prostate he s aw Dr Shroe and heart doing well- no gerd- and [...] els overwhelmed- he is willing to retry nealta again and see how he doesEncounter Diagnosis: [...] [facility] End: 24-Feb-2006 14:24 Payers MedicareUniversity [facility]/Supplement Jose Angel garciaor
--- OUTSIDE RECORDS SUMMARY | 2018-07-01 19:14 | XMS RPT_ITS | Continuity of Care Document ---
:1950 Author Organization [facility] Address [address] [facility] [address] [place] [address] Phone Care Team Providers Name Role Phone Jazz Rodas DO Unavailable [facility] Unavailable [facility], [facility] Unavailable Dr. 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65ML (Subcutaneous Solution Reconstituted) 1 For Solution dose [...] {Tablet} Refills: 3 Ordered:30-Jul-2015 Aditi Rodas DO, DO Jazz Start : 19-Sep-2014 End : 30-Jul-2015 [...] Quantity: 90 {Tablet} Refills: 3 Ordered:15-Jan-2014 Emili Mullnis Start : 21-May-2011 End : 15-Jan-2014 Discontinued [...] Visit Report Result: Comments: See Note; NOTES: [facility] [address] [place] [address]. [address] [place] [address] OFFICE VISIT Date of Service: 02/28/18 MR#: [id number] Acct: [id number] Name: LETHA DEUTSCH Rep #: [id number] : 1950 Provider: Hyun Iglesias Age/Sex: 67/M Location: [facility] Status: Signed HPI HPI Chief Complaint: Acute Kidney Injury Details: LETHA DEUTSCH, is a 67 M who presen ts [...] Visit Reasons: PER PK, PRIOR TO SURGERY Fur Trapper Required: No Accompanied by: None Is patient [...] smokin alcohol intake: former ye ar quit: 2016 substance use type: does not [...] Pharmacologic nuclear stress test in May 13 demonstrated myocardial perfusion changes compatible with previous myocardial injury sports/infarct with no myocardial perfusion changes consider diagnostic for stress associated myocardial ischemia . Assessment AND Plan 1. Atherosclerosis of [place] coronary artery of [place] heart without angina pectoris I25.10 CABG 03/20/1997 [...] Code Off vis,est,level 4 Diagnoses Atherosclerosis of [place] coronary artery of [place] heart without angina pectoris I25.10 [place] vs. transplanted heart: [place] heart Essential hypertension I10 Hypertension type: essential hypertension Pure hypercholesterolemia E78.00; E78.0 Hyperlipidemia type: pure hypercholesterolemia Occlusion and stenosis of left carotid artery I65.22 PAD (peripheral artery disease) I73.9 Atrial fibr illation and flutter I48.91; I48.92 Renal disease N28.9 Coding Level of Care Code Off vis,est,level 4 Diagnoses Atherosclerosis of [place] coronary artery of [place] heart without angina pectoris I25.1 0 [place] vs. transplanted heart: [place] heart Essential hypertension I10 Hypertension type: essential [...] Visit Report Result: Comments: See Note; NOTES: [facility] [address] [facility] [place] [address] OFFICE VISIT Date of Service: 02/20/18 MR#: [id number] Acct: [id number] Patient: LETHA DEUTSCH Rep #: [id number] : 1950 Provider: Babatunde Maria MD Age/Sex: 67/M Location: [facility] Status: Signed Intake Intake Visit Reasons: [...] f/u in 1-2 weeks. Patient agrees. 02/21/18 9998 <Electronically signed by Hyun Iglesias PA> Date Hyun Sandovalignnancy Signature: Date (if applicable) CC: 16-Feb-2018 Emergency Department Summary Result: Comments: See Note; NOTES: [facility] Medical Records Department [address] [place] [address] Emergency Department Summary 02/16/18 1723 MR#: [id number] Acct: [id number] Name: LETHA DEUTSCH Rep #: [id number] : 1950 67 From: Charlie Lyles MD [...] inju ry This note was generated with Taaseraation software. It may contain incorrect words, spelling, [...] your Primary Care Provider. Call [facility] ([phone]) or report to the closest Emergency Room. Call 911 if necessary. 02/16/18 184 5 <Electronically signed by Charlie Lyles MD> Date Charlie Lyles MD Cosigner Signature (If Indicated): Date CC: Jazz Rodas DO 09-Nov-2017 Carotid Duplex Ultrasound Result: Comments: See Note; NOTES: [facility] Cardiovascular Services [address] [place] [address] Carotid Duplex Ultrasound 11/09/17 1247 MR#: [id number] Acct: [id number] Name: LETHA MASON Rep #: [id number] : 1950 67 From: Kaiser Awan MD Attending Dr: Babatunde Maria MD Status: REG I Ordering Dr: Babatunde Maria MD Date: 11/09/17 Location: [facility] Sex: M C Admitted: R t. Velocities/BP [...] the left vertebral artery. Procedure Carotid Duplex 85195. The study was technically difficult. Exam performed [...] Dictated: 11/09/17 1247 Date Transcribed: 11/09/17 1516 Switch Coupler: Signed 27-Oct-2017 Cardiology Visit Report Result: Comments: See Note; NOTES: [facility] [address] [place] [address] OFFICE VISIT Date of Service: 10/27/17 MR#: [id number] Acct: [id number] Name: LETHA DEUTSCH Rep #: [id number] : 1950 Provider: Babatunde Maria MD Age/Sex: [...] do remember he underwent stress testing in 2016 which did not demonstrate any evidence of [...] Lt brachial Intake Visit Reasons: 6 M Fur Trapper Required: No Accompanied by: none Is patient [...] carotid artery (Chronic) Atherosclerotic heart disease of [place] coronary artery without angina pectoris (Chronic) Obesity [...] Atherosclerosis of coronary artery bypass graft of [place] heart without angina pectoris I25.810 Plan He [...] arise Plan Detail Follow 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 transplanted heart: [place] heart Essential hypertension I10 Hypertension type: essential hypertension Atrial fibrillation and flutter I48. 91; I48.92 Occlusion and stenosis of left carotid artery I65.22 Pure hypercholesterolemia E78.00; E78.0 Hyperlipidemia type: pure hypercholesterolemia Coding Level of Care Code Off vis,est,level 4 Di agnoses Atherosclerosis of coronary artery bypass graft of [place] heart without angina pectoris I25.810 [place] vs. transplanted heart: [place] heart Essential hypertension I10 Hypertension type: essentia l hypertension Atrial fibrillation and flutter I48.91; I48.92 Occlusion and stenosis of left carotid artery I65.22 Pure hypercholesterolemia E78.00; E78.0 Hyperlipidemia type: pure hypercholesterolemia 10/27/17 0935 <Electronically signed by Babatunde Maria MD> Date Babatunde Maria MD Cosigner Signature: Date (if applicable) CC: Jazz Rodas DO 22-Oct-2017 Spine Lumbar (Routine) Result: Comments: See Note; NOTES: [facility] Imaging Services [address] [place] [address] Spine Lumbar (Routine) MR#: [id number] Acct: [id number] Name: LETHA DEUTSCH Rep #: [id number] : 1950 M 66 From: Roberto Lunsford MD PCP: Jazz Rodas DO Status: REG CLI Study: Spine Lumbar (Routine) Date of Exam: 10/22/17 Exam# [id number] Ordering Dr: Brooklynn Ryan AUTOMATIC CORN GRINDER OPERATOR-Karen STUDY: MRI L UMBAR SPINE WITHOUT CONTRAST [...] , CC: Brooklynn Ryan; Jazz Rodas DO Switch Coupler: Signed 14-Apr-2017 Cardiology Visit Report Result: Comments: See Note; NOTES: 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) 1018 <Electronically signed by Hyun TOMPKINS> Date Hyun TOMPKINS 04/14/17 1020<Electronically signed by Babatunde Maria MD> Cosigner Signature: Date (if applicable) Babatunde Maria MD CC: Jazz Irvin LAURA 23-Jun-2016 Brain/Head without Contrast Result: Comments: See Note; NOTES: [facility] Imaging Services [address] [place] [address] Verdana 4d Brain/Head without Contrast MR#: [id number] Acct: [id number] Name: [facility] Rep #: [id number] : 1950 M 65 From: Chago Loera MD PCP: Jazz Rodas DO Status: REG ER Study: Brain/Head without Contrast Date of Exam: 06/23/16 Exam# [id number] Ordering Dr: Isiah Gloria MD STUDY: CT [...] 06/23 at 20:16 EDT , Service support [phone], N.B. : The above information has been verbally conveyed by Chago Loera MD to dr gloria, Referring Physician, on 20:19:35 (ET). CC: Emili Gloria MD; Jazz Rodas DO Switch Coupler: Signed 23-Jun-2016 Chest 1 View Result: Comments: See Note; NOTES: [facility] Imaging Services [address] [place] [address] Verdana 4d Chest 1 View MR#: [id number] Acct: [id number] Name: LETHA DEUTSCH Rep #: [id number] : 1950 M 65 From: Chago Loera MD PCP: Jazz Rodas DO Status: REG ER Study: Chest 1 View Date of Exam: 06/23/16 Exam# [id number] Ordering Dr: Emili Gloria MD STUDY: X-RAY [...] MD at 20:28 EDT , Service support [phone], CC: Emili Gloria MD; Jazz Rodas DO Switch Coupler: Signed 09-Jun-2016 Pulmonary Function Report Comp Result: Comments: See Note; NOTES: [facility] Pulmonary Services/Neurology [address] [place] [address] Pulmonary Function Test (Comp) MR#: [id number] Acct: [id number] Name: LETHA DEUTSCH Rep #: [id number] : 1950 65 From: Rodolfo Palacios DO Referring Dr: Rodolfo Palacios D.O. Status: REG CLI Ordering Dr: Rodolfo Palacios DO Date: 06/08/16 Location: [facility] Sex: M C DATE OF SERVICE: INTRODUCTION: [...] DO Karen Gurrola C: T: NTS JOB: [id number] 06/09/16 1357 &# 60;Electronically signed by Rodolfo Palacios DO> Date Rodolfo Palacios DO CC: Rodolfo Palacios D.O.; Jazz Rodas DO Date Dictated: 06/09/16829 Date Transcribed: 06/09/16829 Switch Coupler: Signed 07-Jun-2016 Chest PA and Lateral Result: Comments: See Note; NOTES: [facility] Imaging Services [address] [place] [address] Verdana 4d Chest PA and Lateral MR#: [id number] Acct: [id number] Name: LETHA DEUTSCH p #: [id number] : 1950 M 65 From: Real Miller MD PCP: Jazz Rodas DO Status: REG CLI Study: Chest PA and Lateral Date of Exam: 06/07/16 Exam# [id number] Ordering Dr: Hyun Iglesias PA STUDY: X-RAY [...] MD at 16:15 EST , Service support [phone], CC: Jazz Rodas DO; Hyun Iglesias Switch Coupler: Signed 01-Jun-2016 Carotid Duplex Ultrasound Result: Comments: See Note; NOTES: [facility] Cardiovascular Services [address] [place] [address] Carotid Duplex Ultrasound 06/01/16 1000 MR#: [id number] Acct: [id number] Name: LETHA MASON Rep #: [id number] : 1950 65 From: Cassi Rousseau MD Attending Dr: Rodolfo Palacios D.O. Status: REG CLI Ordering Dr: Gennaro Larsen MD Date: 06/01/16 Location: [facility] Sex: M C Admit alcon: Reason [...] the left vertebral artery. Procedure Carotid Duplex 06998. Technically difficult due to body habitus. Exam [...] Dictated: 06/01/16 1000 Date Transcribed: 06/01/16 1434 Switch Coupler: Signed 01-Jun-2016 Echocardiogram Complete Result: Comments: See Note; NOTES: [facility] Cardiovascular Services [address] [place] [address] Echo Complete 06/01/16908 MR#: [id number] Acct: [id number] Name: LETHA DEUTSCH Rep #: [id number] : 1950 65 From: Babatunde Maria MD Attending Dr: Rodolfo Palacios D.O. Status: REG CLI Ordering Dr: Rodolfo Palacios DO Date: 06/01/16 Location: [facility] Sex: M C Admitted: Reason For Andrew [...] Dictated: 06/01/16 0909 Date Transcribed: 06/01/16 1251 Switch Coupler: Signed 26-May-2016 6 Minute Walk Test Result: Comments: See Note; NOTES: [facility] Pulmonary Services/Neurology [address] [place] [address] MR#: [id number] Acct: [id number] Name: LETHA DEUTSCH Rep #: [id number] : 1950 65 From: Rodolfo Palacios DO Referring Dr: Rodolfo Palacios D.O. Date: Ordering Dr: Sex: M C Location: PSN PSN 6 Minute Walk Test - 6 Minute Walk Test 6 Minute Walk Test: 6 Minute Walk Test PSN :6-Minute Walk Test Start: 05/25/16 12:52 Freq: Status: Active Document 05/25/16 12:52 LORENA (Rec: 05/25/16 12:54 LORENA [id number]) 6 Minute Walk Test Date Performed 05/25/16 [...] CC: Date Dictated: 05/26/1647 Date Transcribed: 05/26/16946 Switch Coupler: Rodolfo Palacios DO Signed 21-Apr-2016 Venous Duplex Lower Extremity Result: Comments: See Note; NOTES: [facility] Cardiovascular Services [address] [place] [address] Venous Duplex US, Unilateral 04/21/16 1619 MR#: [id number] Acct: [id number] Name: LETHA ARTHUR Rep #: [id number] : 1950 65 From: Kwaku Ahmadi MD [...] Dictated: 04/21/16 1619 Date Transcribed: 04/21/16 1827 Switch Coupler: Signed 16-Apr-2016 Pelvis WITH IV Contrast Result: Comments: See Note; NOTES: [facility] Imaging Services [address] [place] [address] Verdana 4d Pelvis WITH IV Contrast MR#: [id number] Acct: [id number] Name: LETHA DEUTSCH Rep #: [id number] : 1950 M 65 From: Gurpreet De Anda DO PCP: Jazz Rodas DO Status: REG CLI Study: Pelvis WITH IV Contrast Date of Exam: 04/16/16 Exam# [id number] Ordering Dr: Jazz Rodas STUDY: CT PELVIS [...] De Anda DO at 9:03 EST Tel [phone], Service support [phone], CC: Ivory Rodas DO Switch Coupler: Signed 14-Apr-2016 Other BP Soft Tissue Result: Comments: See Note; NOTES: [facility] Imaging Services [address] [place] [address] Verdana 4d Other BP Soft Tissue MR#: [id number] Acct: [id number] Name: LETHA DEUTSCH Re p #: [id number] : 1950 M 65 From: Gurpreet De Anda DO PCP: Jazz Rodas DO Status: REG CLI Study: Other BP Soft Tissue Date of Exam: 04/14/16 Exam# [id number] Ordering Dr: Raya Albarran STUDY: GALINDO PERFICIAL [...] Anda DO 27/04/03 at 12:37 EST Tel [phone], Service support [phone], CC: Jazz Rodas DO; Raya Albarran Switch Coupler: Signed 18-Feb-2016 12 Lead Electrocardiogram Result: Comments: See Note; NOTES: [facility] Cardiovascular Services [address] [place] [address] 12 Lead EKG 02/16/16 1238 MR#: [id number] Acct: [id number] Name: LETHA DEUTSCH Rep #: [id number] : 1950 65 From: Johnie Montaño MD Attending Dr: Babatunde Maria MD Status: DEP CLI Ordering Dr: Babatunde Maria MD Date: 02/16/16 Location: [facility] Sex: M C Admitted: Test Reason [...] Abnormal ECG Confirmed by SCOTT PERERA, JOHNIE ([id number]), editorial manager BECK DOSS ([id number]) on 02/18/2016 2:53:30 PM Referred By: BABATUNDE NICOLAS [facility] Confirmed By:JOHNIE MONTAÑO MD 02/18/16 1453 Date Johnie Montaño MD CC: Jazz Rodas DO Date Dictated: 02/16/16 1238 Date Transcribed: 02/16/16 1238 Switch Coupler: Signed 17-Feb-2016 Operative Report Result: Comments: See Note; NOTES: [facility] Medical Records Department [address] [place] [address] Operative Report MR#: [id number] Acct: [id number] Name: LETHA DEUTSCH Rep #: [id number] : 1950 65 From: Rodolfo Palacios DO PCP: Jazz Rodas DO Status: DEP CL DATE OF SERVICE: 02/16/2016 CONSCIOUS SEDATION REPORT BRIEF HISTORY OF PRESENT ILLNESS: The patient is a 65-year-old male, currently under the care of Dr. Maria, who presents for an elective cardioversion secondary to atrial fibrillation. The patient has a longstanding history of atrial fibrillat ion and other cardiac issues including a triple bypass surgery at [facility] in 1996 followed by an ablation [...] C: Referring Provider . T: RACHAEL JOB: [id number] 02/17/16 1243 <Electronically signed by Rodolfo Palacios DO> Date ____ Rodolfo Palacios DO Cosigner Signature (If Indicated): Date CC: Rodolfo Palacios D.O.; Jazz Rodas DO Da te Dictated: 02/16/161258 Date Transcribed: 02/16/161258 Switch Coupler: Signed 17-Feb-2016 Operative Report Result: Comments: See Note; NOTES: [facility] Medical Records Department [address] [place] [address] Operative Report MR#: [id number] Acct: [id number] Name: LETHA DEUTSCH Rep #: [id number] : 1950 65 From: Babatunde Maria MD PCP: Jazz Rodas DO Status: [facility] DATE OF SERVICE: PROCEDURE: DC cardioversion. INDICATIONS: [...] Babatunde Maria MD T: NTS JOB : [id number] 02/17/16 0833 <Electronically signed by Babatunde Maria MD> Date Babatunde Maria MD Cosigner Signature (If Indicated): Date __ CC: Babatunde Maria MD; Jazz Rodas DO Date Dictated: 02/16/161325 Date Transcribed: 02/16/161325 Switch Coupler: Signed 01-Jan-2016 Operative Report Result: Comments: See Note; NOTES: [facility] Medical Records Department [address] [place] [address] Operative Report MR#: [id number] Acct: [id number] Name: LETHA DEUTSCH Rep #: [id number] : 1950 65 From: Babatunde Maria MD PCP: Jazz Rodas DO Status: REG SDC DATE OF SERVICE: PROCEDURE: DC cardioversion. INDICATION: [...] followup. Babatunde Maria MD T: NTS JOB: [id number] 01/01/16 0813 <Electronically signed by Babatunde Maria MD> Date Babatunde Maria MD Cosigner Signature (If Indicated): Date CC: Babatunde Maria MD; Jazz Rodas DO Date Dictated: 12/29/15 1143 Date Transcribed: 12/29/15 1143 Switch Coupler: Signed 31-Dec-2015 Consultation Result: Comments: See Note; NOTES: [facility] Medical Records Department [address] [place] [address] Consultation MR#: [id number] Acct: [id number] Name: LETHA DEUTSCH Rep #: [id number] : 1950 65 From: Zia Alvarenga MD PCP: Jazz Rodas DO Status: REG SDC DATE OF SERVICE: 12/29/2015 BRIEF HISTORY OF PRESENT ILLNESS: The patient is a 65-year-old male, cu rrently under the care of Dr. Maria, who presents for elective KAYLEE and cardioversion secondary to atrial fibrillation. The patient does have a long history of atrial fibrillation and cardiac issues incl uding a triple bypass at [facility] in 1996, atrial ablation in 2011 [...] MD Primary Care Physician T: RACHAEL JOB: [id number] 12/31/15 0622 <Electronically signed by Zia Alvarenga MD> Date Zia bond MD Cosigner Signature (If Indicated): Date CC: Zia Alvarenga MD; Babatunde Maria MD; Jazz Rodas DO Date Dictated: 12/29/151436 Date Transcri bed: 12/29/151436 Switch Coupler: Signed 29-Dec-2015 Echo Transesophageal (KAYLEE) Result: Comments: See Note; NOTES: [facility] Cardiovascular Services [address] [place] [address] Echo Transesophageal (KAYLEE) 12/29/15 1045 MR#: [id number] Acct: [id number] Name: LETHA DARBY Rep #: [id number] : 1950 65 From: Babatunde Maria MD Attending Dr: Babatunde Maria MD Status: REG [facility] Ordering Dr: Babatunde Maria MD Date: 12/29/15 Location: [facility] Sex: M C Admitted: Lissette fonseca For Study: A. fib Medication KAYLEE probe passed without difficulty. Cetacaine Topical [place] given X3 orally. Versed 2 mg given [...] Dictated: 12/29/15 1045 Date Transcribed: 12/29/15 1237 Switch Coupler: Signed 20-Nov-2015 OT D/C Summary Result: Comments: See Note; NOTES: [facility] Occupational Therapy [facility] [address] [place] [address]. [address] [place], [place] [id number] Fax REHABILITATION SERVICES [facility] SUMMARY MR#: [id number] Acct: [id number] Name: LETHA DEUTSCH Rep #: [id number] : 1950 65 From: Linda Blunt Referring DrNeri: Jorge Luis Kerr MD Status: REG RCR [...] of their discharge status. - Objective Objective/Function: Body And Fender Mechanic: R: 95# L: 80#. Lat Pinch: R:26# [...] the izquierdo to regaining sensation and strength. Body And Fender Mechanic: R: 95# L: 80#. Lat Pinch: R:26# L:10#. Tripod Pinch: R:18# L:8#. Gram Abduction: R:375; L: 200. Adduction: R: 800; L:600. Monofilaments: L Th:3.84. L IF:3.22. L MF:3.22. L RF:3.22/4.08. L LF:4.08. In mariano nd manipulation (palm to fingers and fingers to palm) appear normal. If there are questions or concerns regarding this patient's occupational therapy, please fell free to call me at [phone]. Thank you for the referral of this patient. Sincerely, Linda Blunt <Electronically signed by Linda Blunt > 11/20/15 1518 CC: Jazz Rodas DO; Jorge Luis Kerr MD MG Signed 20-Nov-2015 OT General Evaluation Result: Comments: See Note; NOTES: [facility] Occupational Therapy [facility] [address] [place] [address]. [address] [place], [place] [address] Fax REHABILITATION SERVICES IN ITIAL EVALUATION MR#: [id number] Acct: [id number] Name: LETHA DEUTSCH Rep #: [id number] : 1950 65 From: Linda Blunt Referring Dr.: Jorge Luis Kerr MD Status: REG RCR Insurance: MEDICARE PA RT A B Eval Date: [place] Patient's Visit Information LETHA DEUTSCH is a [...] trans position on August 12, 2015 at [place]. Pt. experienced sudden numbness and falling asleep" of L elbow and hand before the surgery. Pt. is retired and worked at [employer] for 34 years. 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 Pt. is R-handed [...] Elbow: B 5/5 Wrist: R:5/5; L: 4+/5 Body And Fender Mechanic: R:85# L:80# Lateral Pinch: R:22# L:12# Tripod [...] to be FAXED BACK to us at [phone] for Med icare purposes. Please let me [...] W/WO Contrast Result: Comments: See Note; NOTES: [facility] Imaging Services [address] [place] [address] Verdana 4d CTA Head W/WO Contrast MR#: [id number] Acct: [id number] Name: LETHA MASON Rep #: [id number] : 1950 M 65 From: Cecilio Castillo PCP: Jazz Rodas DO Status: REG CLWest Study: CTA Head W/WO Contrast Date of Exam: 11/06/15 Exam# [id number] Ordering Dr: Linnea Johnson STUDY: CTA OF [...] There is no demonstrated aneurysm of the [place] of [place]. There is no demonstrated abnormality of the visualized brain. 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 Mi ld atherosclerotic plaque of the bilateral intracranial carotid arteries. Electronically Signed: Cecilio Castillo MD at 11:58 EDT Tel , Service support [phone], Fax CC: Linnea Hall; Jazz Rodas DO Switch Coupler: Signed 06-Nov-2015 CTA Head W/WO Contrast Result: Comments: See Note; NOTES: [facility] Imaging Services [address] [place] [address] Verdana 4d CTA Head W/WO Contrast MR#: [id number] Acct: [id number] Name: LETHA MASON Rep #: [id number] : 1950 65 From: Cecilio Castillo PCP: Jazz Rodas DO Status: REG CLI Study: CTA Head W/WO Contrast Date of Exam: 11/06/15 Exam# [id number] Ordering Dr: Linnea Johnson AUTOMATIC CORN GRINDER OPERATOR-C STUDY: CTA OF THE BRAIN REASON FOR [...] There is no demonstrated aneurysm of the [place] of [place]. There is no demonstrated abnormality of the visualized brain. CC: Linnea Hall; Jazz Rodas DO Switch Coupler: Signed 06-Nov-2015 CTA Neck W/WO Contrast Result: Comments: See Note; NOTES: [facility] Imaging Services [address] [place] [address] Verdana 4d CTA Neck W/WO Contrast MR#: [id number] Acct: [id number] Name: LETHA MASON Rep #: [id number] : 1950 M 65 From: Cecilio Castillo PCP: Jazz Rodas DO Status: REG CLI Study: CTA Neck W/WO Contrast Date of Exam: 11/06/15 Exam# [id number] Ordering Dr: Linnea Johnson AUTOMATIC CORN GRINDER OPERATOR-C STUDY: CTA NECK WITH CONTRAST REASON FOR [...] at 11:53 EDT Tel , Service support [phone], CC: Linnea Hall; Jazz Rodas DO Switch Coupler: Signed 06-Nov-2015 CTA Neck W/WO Contrast Result: Comments: See Note; NOTES: [facility] Imaging Services [address] [place] [address] Verdana 4d CTA Neck W/WO Contrast MR#: [id number] Acct: [id number] Name: LETHA MASON Rep #: [id number] : 1950 M 65 From: Cecilio Castillo PCP: Jazz Rodas DO Status: REG CLI Study: CTA Neck W/WO Contrast Date of Exam: 11/06/15 Exam# [id number] Ordering Dr: Linnea Johnson STUDY: CTA NECK [...] artery. CC: Linnea Hall; Jazz Rodas DO Switch Coupler: Signed 30-Sep-2015 Brain W/WO Contrast Result: Comments: See Note; NOTES: [facility] Imaging Services [address] [place] [address] Verdana 4d Brain W/WO Contrast MR#: [id number] Acct: [id number] Name: LETHA WHEELER Rep #: [id number] : 1950 M 64 From: Cierra Doss MD PCP: Jazz Rodas DO Status: REG CLI Study: Brain W/WO Contrast Date of Exam: 09/30/15 Exam# [id number] Ordering Dr: Prakash Mccarty MD STUDY: MRI [...] MD at 13:08 EDT , Service support [phone], CC: Isaac Mccarty MD; Jazz Rodas DO Switch Coupler: Signed 28-Sep-2015 Carotid Duplex Ultrasound Result: Comments: See Note; NOTES: [facility] Cardiovascular Services [address] [place] [address] Carotid Duplex Ultrasound 09/25/15 1411 MR#: [id number] Acct: [id number] Name: LETHA DEUTSCH Rep #: [id number] : 1950 64 From: Rian Levi MD [...] the left vertebral artery. Procedure Carotid Duplex 34677. Techncially difficult due to body habitus. Exam performed in department. Interpretation Summary Mild (<50%) stenosis right extracranial internal carotid. Mild (<50%) stenosis l eft extracranial internal carotid. Flow within the vertebral arteries is antegrade bilaterally. Ordering Physician: Jazz Rodas Performed By: Karon Harris RVT 09/28/152157 Date Rian Levi MD CC: Jazz Rodas DO Date Dictated: 09/25/15 1411 Date Transcribed: 09/28/152157 Switch Coupler: Signed 25-Sep-2015 Brain/Head without Contrast Result: Comments: See Note; NOTES: [facility] Imaging Services [address] [place] [address] Verdana 4d Brain/Head without Contrast MR#: [id number] Acct: [id number] Name: LETHA DEUTSCH Rep #: [id number] : 1950 [facility] From: Juli Klein MD PCP: Jazz Rodas DO Status: REG CLI Study: Brain/Head without Contrast Date of Exam: 09/25/15 Exam# [id number] Ordering Dr: Jazz Rodas DO STUDY: CT [...] at 14:19 EDT Tel cf, Service support [phone], CC: Jazz Rodas DO Switch Coupler: Signed 17-Sep-2015 Operative Report Result: Comments: See Note; NOTES: [facility] Medical Records Department [address] [place] [address] Operative Report MR#: [id number] Acct: [id number] Name: TYREL DEUTSCH Rep #: [id number] : 1950 64 From: Babatunde Maria MD [...] office. Babatunde Maria MD T: NTS JOB: [id number] 09/17/15 08 <Electronically sig catrina by Babatunde Maria MD> Date Babatunde Maria MD Cosigner Signature (If Indicated): Date CC: Babatunde Maria MD; Jazz Irvin LAURA Date Dictated: 09/16/15 1100 Date Transcribed: 09/16/15 1100 Switch Coupler: Signed 17-Sep-2015 Operative Report Result: Comments: See Note; NOTES: [facility] Medical Records Department [address] [place] [address] Operative Report MR#: [id number] Acct: [id number] Name: [facility] Ruperto Rep #: [id number] : 1950 64 From: Zia Alvarenga MD [...] Physicia n . T: [facility] JOB: [id number] 09/17/15 0608 <Electronically signed by Zia Alvarenga MD> Date Zia Alvarenga MD Cosigner Signature (If I ndicated): Date CC: Zia Alvarenga MD; Jazz Rodas DO Date Dictated: 09/16/15 1115 Date Transcribed: 09/16/151114 Switch Coupler: Signed 09-Sep-2015 Chest PA and Lateral Result: Comments: See Note; NOTES: [facility] Imaging Services [address] [place] [address] Verdana 4d Chest PA and Lateral MR#: [id number] Acct: [id number] Name: LETHA CHAUDHARI Rep #: [id number] : 1950 M 64 From: Osvaldo Manuel MD PCP: Jazz Rodas DO Status: REG CLI Study: Chest PA and Lateral Date of Exam: 09/09/15 Exam# [id number] Ordering Dr: Hyun Iglesias STUDY: X-RAY CHEST [...] Osvaldo Manuel MD at 10:04 EDT Tel [phone], Service support [phone], RAD/Chest PA and Lateral IMPRESSION: Hyperin flation. No acute abnormality is seen. Electronically Signed: Osvaldo Manuel MD at 10:04 EDT Tel [phone], Service support [phone], CC: Jazz Iglesias Switch Coupler: Signed 07-Aug-2015 ELECTROCARDIOGRAM, COMPLETE (ECG) (91297) Comments: afib controlled rate 97 - Result: [MEASUREMENTS ANALYSIS] Date of Test: 08/07/2015 08:26:34; Heart Rate: 97; [place] Interval: 0; QRS: 104; QT Interval: 344; Corrected QT Interval (QTc): 408; P Wave [place]: 1; QRS Wave [place]: -31; T Wave [place]: 1; Blood Pressure: 138/78 [ECG DIAGNOSTIC STATEMENTS] Date of Test: 08/07/2015 08:26:34; Summary: Atrial flutter-fibrillation - Nonspecific T-abnormality. ABNORMAL 30-Jul-2015 ELECTROCARDIOGRAM, COMPLETE (ECG) (37286) Comments: afib rate 109 Result: [MEASUREMENTS ANALYSIS] Date of Test: 07/30/2015 17:00:28; Heart Rate: 109; [place] Interval: 0; QRS: 108; QT Interval: 338; Corrected QT Interval (QTc): 423; P Wave [place]: 1; QRS [place]: -30; T Wave [place]: 42; Blood Pressure: 122/78 [ECG DIAGNOSTIC STATEMENTS] Date of Test: 07/30/2015 17:00:28; Summary: Atrial fibrillation -Nonspecific QRS widening. -Nonspecific ST depression -Nondiagnostic. ABNORMAL 24-Jul-2015 NCS and/or EMG Patient Result: Comments: See Note; NOTES: [facility] Pulmonary Services/Neurology [address] [place] [address] NCS and/or EMG Patient MR#: [id number] Acct: [id number] Name: LETHA ZUNIGA Rep #: [id number] : 1950 64 From: Mary Doan Referring Dr: Jorge Luis Kerr MD Status: REG CLI Ordering Dr: Jorge Luis Kerr MD Date: 07/23/15 Location: [facility] Sex: M C DATE OF SERVICE: [...] referral. Mary Doan MD T: NTS JOB: [id number] 07/24/152201 <Elect ronically signed by Mary Doan > Date Mary Doan CC: Jazz Rodas DO; MARY DOAN; Jorge Luis Kerr MD Date Dictated: 937 Date Transcribed: 07/23/15937 Switch Coupler: Signed 09-Jul-2015 Echocardiogram Complete Result: Comments: See Note; NOTES: [facility] Cardiovascular Services [address] [place] [address] Echo Complete 07/09/15 0858 MR#: [id number] Acct: [id number] Name: LETHA DARBY Rep #: [id number] : 1950 64 From: Babatunde Maria MD Attending Dr: Babatunde Maria MD Status: REG CLI Ordering Dr: Babatunde Maria MD Date: 07/09/15 Location: [facility] Sex: M C Admitted: Reason For [...] Date Dictated: 07/09/15 0858 Date Transcribed: 07/09/158 Switch Coupler: Signed 09-Jul-2015 Nuclear Stress Test - Chemical Result: Comments: See Note; NOTES: [facility] Imaging Services [address] [place] [address] Verwilberforce 4d Nuclear Stress Test - Chemical MR#: [id number] Acct: [id number] N alexsander: LETHA DEUTSCH Rep #: [id number] : 1950 64 From: Babatunde Maria MD [...] fraction. Babatunde Maria MD T: NTS JOB: [id number] 07/10/15 1139 <Electronically signed by Babatunde Maria MD> Date Babatunde Maria MD CC: Jazz Rodas DO Date Dictated: 07/09/15 1110 Date Transcribed: 07/09/15 1110 Switch Coupler: Signed 02-May-2015 Lumbar Spine 2 or 3 Views Result: Comments: See Note; NOTES: [facility] Imaging Services [address] [place] [address] Verdana 4d Lumbar Spine 2 or 3 Views MR#: [id number] Acct: [id number] Name: LETHA ARTHUR Rep #: [id number] : 1950 64 From: Osvaldo Manuel MD PCP: Jazz Rodas DO Status: REG CLI Study: Lumbar Spine 2 or 3 Views Date of Exam: 05/02/15 Exam# [id number] [place] Dr: Sherif Christensen MD STUDY: [...] Osvaldo Manuel MD at 15:13 EST Tel [phone], Service support [phone], 0056 RAD/Lumbar Spine 2 or 3 Views IMPRESSION: Grade 1 anterolisthesis of L5 on S1 with no significant translation on the flexion and extension maneuvers. Multilevel spondylosis and disc space narrowing. Electronically Signed: Osvaldo olivo MD at 15:13 EST Tel [phone], Service support [phone], CC: Sherif Christensen MD; Jazz Rodas DO Switch Coupler: Signed 02-May-2015 Spine Lumbar without Contrast Result: Comments: See Note; NOTES: [facility] Imaging Services [address] [place] [address] Verdana 4d Spine Lumbar without Contrast MR#: [id number] Acct: [id number] iWsam e: LETHA DEUTSCH Rep #: [id number] : 1950 M 64 From: Scott Kelly MD PCP: Jazz Rodas DO Status: REG CLI Study: Spine Lumbar without Contrast Date of Exam: 05/02/15 Exam# [id number] Ordering Dr: Sherif Christensen MD STUDY: CT [...] Scott Kelly MD at 8:31 EST Tel [phone], Ser vice support [phone], CC: Sherif Christensen MD; Jazz Rodas DO Switch Coupler: Signed 28-Jan-2015 History and Physical Exam Result: Comments: See Note; NOTES: [facility] Medical Records Department [address] [place] [address] History and Physical 01/24/155 MR#: [id number] Acct: [id number] Name: LETHA DEUTSCH Rep #: [id number] : 1950 64 From: Joe Sinha PA-C PCP: Jazz Rodas DO Status: PRE IN Location: [facility] DATE OF SERVICE: PRIMARY CARE PHYSICIAN: Dr. Natalie Rodas. PROCEDURE TYPE: Reverse total shoulder replacement, right shoulder. PROCEDURE DATE: February 04, 2015. ATTENDING PHYSICIAN: Dr. Jorge Luis Kerr. HISTORY OF PRESENT ILLNESS: This is a 64-year-old male who first presented to [facility] on December [...] patient has undergone cardiac clearance by his civil designer, Dr. Maria. The patient has a history of coronary artery disease with bypass surgery in 1996. The patient has also had heart ablation in 2010 as well as stents in his left and right iliac arteries. The patient un derwent a heart catheterization in 2011. The patient was given surgical clearance by his civil designer. The patient denies any chest pain, shortness [...] in the medical record. Please see attached [facility] medical history sheet. PAST MEDICAL [...] DIAGNOSTIC STUDIES: 1. X-rays were obtained at [facility] on December 03, 2014, of the right shoulder including 3 views AP, ___ _ and axillary view, show no acute fracture, dislocation, or other bony abnormalities, ____ lesion inferior aspect of the glenoid. 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 2. MRI o f the right shoulder was obtained at [facility] on ____ 2014, shows a [...] nt has undergone cardiac clearance from his civil designer. Joe Sinha PA-C T: RACHAEL JOB: [id number] 01/28/15715 <Electronically signed by Joe Sinha PA-C> [...] Lumbar (Routine) Result: Comments: See Note; NOTES: [facility] Imaging Services [address] [place] [address] MRI Report MR#: [id number] Acct: [id number] Name: LETHA DEUTSCH Rep #: [id number] : 1950 M 63 From: Jack Martínez MD PCP: Jazz Rodas DO Status: REG CLI Study: Spine Lumbar (Routine) Date of Exam: 06/13/14 Exam# [id number] Ordering Dr: Mihir Martínez MD STUDY: MR [...] at 19:32 EST Tel , Service support [phone], CC: Mihir Martínez MD; Jazz Rodas DO Switch Coupler: Signed 06-Mar-2014 Sleep Study Report Result: Comments: See Note; NOTES: [facility] [address] [place] [address] Polysomnography with NCPAP MR#: [id number] Acct: [id number] Name: RADHA DEUTSCH Rep #: [id number] : 1950 63 From: Gennaro Larsen MD PCP: Rupinder Encarnacion DO Status: REG CLI Ordering Dr.: Gennaro Larsen MD Date: 02/28/14 Sex: M C REFERRING PHYSICIAN: Dr. Larsen. SLEEP HISTORY: The patient is a 63-year-old gentleman with a calculated body mass index of 36.3 and an [place] Sleepiness Scale score of 8/24. The patient [...] version). Please note that a reference to [facility] AHI in this report is consistent with the current Hypopnea definition according to Medicare Criteria and an AASM AHI reference is consistent with the current Hypopnea definition according to the AASM criteria. PROCEDURE: The stud y was attended continuously by a thin film technician. Monitored parameters included left and right [...] ove rall apnea /hypopnea indices by both [facility] and AASM guidelines were 0.5 with the [...] Duplex Ultrasound Result: Comments: See Note; NOTES: [facility] Cardiovascular Services [address] [place] [address] Carotid Duplex Ultrasound 01/30/14 0854 MR#: [id number] Acct: [id number] [facility] e: LETHA DEUTSCH Rep #: [id number] : 1950 63 From: Rian Levi MD Attending Dr: Rupinder Encarnacion DO Status: REG CLI Ordering Dr: Rupinder Encarnacion DO Date: 01/30/14 Location: [facility] Sex: M C Admitte d: Rt. [...] the left vertebral artery. Procedure Carotid Duplex 47135. Exam performed in department. Interpretation Summary Mild (<50%) stenosis right extracranial internal carotid. Mild (<50%) stenosis left extracranial internal carotid. Flow within the vertebral arteries is antegrade bilaterally. Ordering Physician: Rupinder Encarnacion Performed By: Karon Harris RVT 01/30/14 1122 Date Rian Levi MD CC: Rupinder Encarnacion DO Date Dictated: 01/30/14 0854 Date Transcribed: 01/30/14 112 Switch Coupler: Signed Immunization Name Dates Details Influenza (3 years and up) on: 24-Jan-2007 Comments: given o.5cc im in right deltoid lot#[id number] exp.10/09/07-aw Influenza (3 years and up) on: 15-Mar-2008 Influenza (3 years and up) on: 07-Jan-2009 Comments: Lot #:[id number] date:mount given:0.5mlRoute: IMSite given:left deltGiven by: PRECIOUS [...] Area Calculated 2.14 m2 :59 Comments: hearing [facility] and had a glaucoma test done Pulse [...] Surface Area Calculated 2.12 m2 :29 Comments: [facility] hada glaucoma test doneHearing [...] kg/m2 Body Surface Area Calculated 2.11 m2 18-Nzk-679509:50 Comments: [facility] Pulse 74 /min Comments: [...] Arm; Cuff Size: Standard Weight 203.1875 lb 3-Mdq-470857:09 Temperature 97 f Comments: Method: Oral Pulse [...] 0.00 cm Results Date Description Value Details 88-Nmr-481732:08 Blood Glucose , Office (35219) Blood Glucose , Office 110 (Normal) :52 HgA1C , Office (78061) HgA1C , Office 4.9 % (Normal) Range: 4.6 - 7.1 29-Dfd-736355:07 Basic Metabolic Profile (BMP) Comments: [facility] [address] [place], [phone] GAP 7 (Normal) Range: 5-15 CO2 30.0 [...] Comments: Please note revised GLUCOSE reference range lsthcexqn31/02/2018. 26-Rja-71934:53 Albumin, Serum Comments: [facility] [address] [place], [address] ALB 3.5 g/dL (Normal) Range: 3.2-5.0 :53 Hemoglobin A1c Comments: [facility] [address] [place], [phone] HGB A1C 5.7 % (Normal) Range: 4.2-6.3 :53 Vitamin D,25 Hydroxy Comments: [facility] [address] [place], [phone] Vitamin D 25-OH 47.7 ng/mL (Normal) Range: 29.95-100.01 Comments: Vitamin D 25(OH) Status Range Deficiency <20 ng/mL (50nmol/L) Insuffciency 20 - 30 ng/mL (50 - 75 nmol/L) Sufficiency 30 - 100 ng/mL (75 - 250 nmol/L) Toxicity >100 ng/mL (>250 nmol/L) 5-Uqo-201150:38 Basic Metabolic Profile (BMP) Comments: [facility] [address] [place], [place], [phone] GAP 10 (Normal) Range: 5-15 CO2 28.0 [...] Critical Result(s) Called at: 18:23:59 02/16/2018 by:Shawna Katz GLU 96 mg/dL (Normal) Range: 74-106 Comments: Please note revised GLUCOSE reference range voxemwtur25/02/2018. 4-Mjo-783419:38 CBC W/Diff, Automated Comments: [facility] [address] [place], [place], [phone] Absolute Lymph 1.17 {X10_3/ul} (Normal) Range: 0.83-4.51 [...] 4.6-6.2 WBC 4.9 K/mm3 (Normal) Range: 4.4-11.0 9-Tir-127259:32 Urinalysis, Complete Comments: Order Date: 02/16/18Has pt arrived? YHow was Urine Obtained? ACCESS SERVICES LIBRARIAN TO [facility] [address] [place], [place], [phone] MUCUS, URINE 0 SEEN {/hpf} (Normal) BACTERIA [...] (Normal) CLARITY Clear (Normal) COLOR Yellow (Normal) 36-Mlm-016125:57 Blood Glucose , Office (00359) Blood Glucose , Office 123 (Normal) :06 Lipid Profile Comments: [facility] [address] [place], [place], [phone] VLDL Test not performed mg/dL (Normal) Range: [...] mg/dL High Risk :06 Liver Profile Comments: [facility] [address] [place], [place], [address] D BILI 0.07 mg/dL (Normal) Range: 0.00-0.30 T BILI 0.30 mg/dL (Normal) Range: 0.20-1.00 ALT 34 U/L (Normal) Range: 16-61 ALK P 58 U/L (Normal) Range: 45-117 AST 23 U/L (Normal) Range: 15-37 GLOB 3.4 g/dL (Normal) Range: 2.2-4.2 ALB 3.4 g/dL (Normal) Range: 3.2-5.0 T PROT 6.8 g/dL (Normal) Range: 6.4-8.2 :19 CBC W/Diff, Automated Comments: [facility] [address] [place], [place], [phone] Absolute Lymph 1.39 {X10_3/ul} (Normal) Range: 0.83-4.51 [...] Range: 4.4-11.0 :19 Comprehensive Metabolic Profil Comments: [facility] [address] [place], [place], [phone] GAP 13 (Normal) Range: 5-15 CO2 29.0 [...] A.D.A. criteria.Please note revised GLUCOSE reference range dkedktqpz96/02/2018. 68-Zrt-76952:19 Lipid Profile Comments: [facility] [address] [place], [address] VLDL Test not performed mg/dL (Normal) Range: [...] High Risk :19 Microalb:Creat Ratio,Random UR Comments: [facility] [address] [place], [address] MALB:CREAT 15.8 {mg/g_CRE} (Normal) MICROALBUMIN,UR 13.4 mg/L (Normal) UR CREAT 84.70 mg/dL (Normal) :19 Thyroid Stim Hormone (TSH) Comments: [facility] [address] [place], [address] TSH 1.82 {uIU/mL} (Normal) Range: 0.358-3.74 :19 Urinalysis, Complete Comments: How was Urine Obtained? CLEAN [facility] [address] [place], [address] MUCUS, URINE 0 SEEN {/hpf} [...] :19 Vitamin B12 353 pg/mL (Normal) Comments: [facility] [address] [place], [place], [address] Range: 211-911 :19 Vitamin D,25 Hydroxy Comments: [facility] [address] [place], [phone] Vitamin D 25-OH 24.7 ng/mL (Abnormal) Range: 29.95-100.01 Comments: Vitamin D 25(OH) Status Range Deficiency <20 ng/mL (50nmol/L) Insuffciency 20 - 30 ng/mL (50 - 75 nmol/L) Sufficiency 30 - 100 ng/mL (75 - 250 nmol/L) Toxicity >100 ng/mL (>250 nmol/L) :02 HgA1C , Office (53921) HgA1C , Office 5.4 % (Normal) Range: 4.6 - 7.1 :02 Blood Glucose , Office (20587) Blood Glucose , Office 141 (Normal) :22 Lipid Profile Comments: [facility] [address] [place], [phone] VLDL 49 mg/dL (Abnormal) Range: 5-40 LDL [...] mg/dL High Risk :22 Liver Profile Comments: [facility] [address] [place], [phone] D BILI 0.09 mg/dL (Normal) Range: 0.00-0.30 [...] (PROSTATE SPECIFIC Comments: PATIENT NOT FASTINGPERFORMED BY: [facility] HospitalQpzavo5409 [facility] [id number] ANTIGEN) (V76.44) Prostate Specific Ag, 0.9 ng/mL (Normal) Range: 0.0-4.0 Serum Comments: CME ECLIA methodology. .According to the [place] [employer], Serum PSA shoulddecrease and remain [...] of malignant disease. :04 HgA1C , Office (07812) HgA1C , Office 5.6 % (Normal) Range: 4.6 - 7.1 :04 Blood Glucose , Office (03495) Blood Glucose , Office 117 (Normal) :37 CBC W/Diff, Automated Comments: [facility] [address] [place], [place], [phone] Absolute Lymph 1.18 {X10_3/ul} (Normal) Range: 0.83-4.51 [...] 4.6-6.2 WBC 5.2 K/mm3 (Normal) Range: 4.4-11.0 80-Vys-20795:37 Comprehensive Metabolic Profil Comments: [facility] [address] [place], [place], [address] GAP 5 (Normal) Range: 5-15 CO2 32.0 [...] (Normal) Range: 70-110 :37 Lipid Profile Comments: [facility] [address] [place], [place], [phone] VLDL 61 mg/dL (Abnormal) Range: 5-40 LDL [...] High Risk :37 Microalb:Creat Ratio,Random UR Comments: [facility] [address] [place], [address] MALB:CREAT Test not performed {mg/g_CRE} (Normal) MICROALBUMIN,UR < 5.0 mg/L (Normal) UR CREAT 105.00 mg/dL (Normal) :37 Thyroid Stim Hormone (TSH) Comments: [facility] [address] [place], [place], [phone] TSH 1.68 {uIU/mL} (Normal) Range: 0.358-3.74 :37 Urinalysis, Complete Comments: How was Urine Obtained? CLEAN [facility] [address] [place], [phone] MUCUS, URINE 0 SEEN {/hpf} (Normal) BACTERIA [...] :37 Vitamin B12 539 pg/mL (Normal) Comments: [facility] [address] [place], [phone] Range: 211-911 :37 Vitamin D,25 Hydroxy Comments: [facility] [address] [place], [phone] Vitamin D 25-OH 42.0 ng/mL (Normal) Comments: Vitamin D 25(OH) Status Range Deficiency <20 ng/mL (50nmol/L) Insuffciency 20 - 30 ng/mL (50 - 75 nmol/L) Sufficiency 30 - 100 ng/mL (75 - 250 nmol/L) Toxicity >100 ng/mL (>250 nmol/L) Gastric Biopsy See Note (Normal) Comments: [facility] [address], [phone] :56 Comments: Patient: LETHA DEUTSCH : 1950 (65/M) Acct Num: [id number] Phys: Jose Antonio Mehta Unit Num: [id number] Loc: [facility] Specimen: [id number] Received: 10/21/161630 Spec Type: Gastric Bx TISSUES TISSUES: COMMENT The results of immunohistochemistry for Helicobacter pylori will be reported separately ([id number]). GROSS DESCRIPTION Received in fixative i s one container labeled with the patient's name and designated gastric/antrum biopsy. The specimen consists of two irregular fragments of light pacheco soft tissue that in aggregate measure 0.6 x 0.3 x 0 .1 cm. The specimen is totally submitted in one cassette. / YONI:berta 10/22/16 TC:3 CPT: 70715 HEADER OPERATION: EGD with biopsy PRE-OP DIAGNOSIS: [...] on file> IMMUNOHISTOCHEMISTRY See Note (Normal) Comments: [facility] [address] [place], [address] :00 Comments: Patient: LETHA DEUTSCH : 1950 (65/M) Acct Num: [id number] Phys: Jose Antonio Mehta Unit Num: [id number] Loc: [facility] Specimen: [id number] Received: 10/25/161212 Spec Type: IMMUNO TISSUES TISSUES: SPECIMEN INFORMATION: Tissue Source: Gastric antrum biopsy Clinical Info: Iron deficiency anemia Specimen Number: [id number] CPT code: 20586 METHODO LOGY: Deparaffinized sections of prefer/formalin-fixed tissue or PAP/DQ stained slides are incubated with monoclonal/polyclonal antibodies/oligonucleotide probes. Localization is made via biotin free immunoperoxidase method. Appropriate controls are performed and reacted as expected. Results on target cell population are indicated in the following table: RESULTS: ANTIBODY / CLONE RESULT H Pylori (polyclonal) negative These tests were developed and their performance characteristics determined by [facility]. They may not hav e been cleared or approved by the U.S. Food and Drug Administration. The FDA has determined that such clearance or approval is not necessary. INTERPRETATION: Gastric antrum, biopsy: Negative for Helicobacter pylori organisms. SJ:berta 10/26/16 PHYSICIAN AND INSTITUTION [address] [address] Signed Peter Ibanez 10/26/16 <signature on file> 8-Jxg-204563:26 CBC-Complete Blood Cnt No Diff Comments: [facility] [address] [place], [place], [phone] MPV 9.7 fL (Normal) Range: 6.2-12.0 PLT [...] 4.6-6.2 WBC 5.5 K/mm3 (Normal) Range: 4.4-11.0 2-Qez-692423:26 Iron Comments: [facility] [address] [place], [place], [address] IRON 109 ug/dL (Normal) Range: 65-175 2-Reo-182850:10 Basic Metabolic Profile (BMP) Comments: DR.STRUNETS AMATOS BMP,CBCItalo MALHOTRA PT/[facility] [address]dsxysj[address] [place], [place], [address] GAP 7 (Normal) Range: 5-15 CO2 28.0 [...] 126 mg/dLsuggests DIABETES MELLITUS per A.D.A. criteria. 8-Nfg-772707:10 CBC W/Diff, Automated Comments: DR.STRUNETS MALHOTRA BMP,CBCD DR. JAMEY MALHOTRA PT/[facility] [address]jemonf[address] [place], [place], [address] Absolute Lymph 0.85 {X10_3/ul} (Normal) Range: 0.83-4.51 [...] 4.6-6.2 WBC 3.9 K/mm3 (Abnormal) Range: 4.4-11.0 0-Hrs-785609:10 Prothrombin Time w/INR Comments: DR.STRUNETS MALHOTRA BMP,CBCD DR. JAMEY [facility]HOTRA [facility] [address]jujzht[address] [place], [place], [address] INR 1.5 (Normal) PROTIME 17.9 s (Abnormal) Range: 11.7-14.9 69-Dee-087982:31 Stool Occult Blood iFOB Comments: [facility] [address] [place], [place], [phone] STOB See Note (Normal) Comments: Order Date: 09/02/16 STOB iFOBOccult Blood Positive ORGANISM 1: OCCULT BLOOD POSITIVE 77-Del-747433:25 Basic Metabolic Profile (BMP) Comments: [facility] Ukfv[address]ylg[address] [place], [place], [address] GAP 8 (Normal) Range: 5-15 CO2 29.0 [...] 7-18 GLU 98 mg/dL (Normal) Range: 70-110 45-Eom-461763:25 CBC-Complete Blood Cnt No Diff Comments: [facility] [address] [place], [place], [address] MPV 8.8 fL (Normal) Range: 6.2-12.0 PLT [...] 4.6-6.2 WBC 5.6 K/mm3 (Normal) Range: 4.4-11.0 98-Oim-529348:25 Liver Profile Comments: [facility] [address] [place], [place], [address] D BILI 0.05 mg/dL (Normal) Range: 0.00-0.30 T BILI 0.20 mg/dL (Normal) Range: 0.20-1.00 ALT 24 U/L (Normal) Range: 12-78 ALK P 51 U/L (Normal) Range: 45-117 AST 13 U/L (Abnormal) Range: 15-37 GLOB 3.3 g/dL (Normal) Range: 2.3-3.5 ALB 3.7 g/dL (Normal) Range: 3.4-5.0 T PROT 7.0 g/dL (Normal) Range: 6.4-8.2 63-Kou-400225:25 Prothrombin Time w/INR Comments: [facility] [address] [place], [address] INR > 19.5 (Abnormal) Comments: RESULTS CALLED TO BRITTANEY 09/02/16 1753 Vito Arteaga.REPORT READ BACK BY SAME. PROTIME > 120.0 s (Abnormal) Range: 11.7-14.9 84-Jis-052127:53 Prothrombin Time w/INR Comments: [facility] N[address] [place], [address] INR > 19.5 (Abnormal) Comments: CRITICAL VALUE VERIFIED. CALLED TO GERRY AT [facility]09/02/16 1447 Alice Luque.RESULTS READ BACK BY SAME . PROTIME > 120.0 s (Abnormal) Range: 11.7-14.9 44-Saa-657012:33 Prothrombin Time w/INR Comments: [facility] [address] [place], [address] INR 1.9 (Normal) PROTIME 21.2 s (Abnormal) Range: 11.7-14.9 :51 HgA1C , Office (68539) HgA1C , Office 5.5 % (Normal) Range: 4.6 - 7.1 :51 Blood Glucose , Office (94579) Blood Glucose , Office 131 (Normal) 39-Bts-646442:44 Prothrombin Time w/INR Comments: [facility] [address] [place], [address] INR 2.4 (Normal) PROTIME 25.5 s (Abnormal) Range: 11.7-14.9 66-Jji-706051:11 Prothrombin Time w/INR Comments: [facility] [address] [place], [place], [address] INR 1.5 (Normal) PROTIME 17.7 s (Abnormal) Range: 11.7-14.9 :47 Prothrombin Time w/INR Comments: [facility] [address]fs[address] [place], [address](773) INR 1.5 (Normal) PROTIME 17.7 s (Abnormal) Range: 11.7-14.9 :45 Basic Metabolic Profile (BMP) Comments: Order Date: 06/09/16Order Info: [id number] - *BMPDR. JAMEY ORDERED PTINR STANDING ORDER.Order Date: 06/09/16Order Info: [id number] - *BMPComments: Reason:[facility] [address]kw[address] [place], [address] GAP 9 (Normal) Range: 5-15 CO2 30.0 [...] Range: 70-110 :02 Prothrombin Time w/INR Comments: [facility] Igmjludxfb[address] [place], [address] INR 1.8 (Normal) PROTIME 20.1 s (Abnormal) Range: 11.7-14.9 :27 POTASSIUM SERUM (27551) Comments: STAT; Order Date: 06/30/16Order Info: [id number] - KComments: STATOrder Date: 06/30/16Order Info: 2823-3 - KComments: [facility] Xcvvscmzwc5372 [place], [address] K 4.6 mmol/L Range: 3.5-5.1 (Normal) Vitamin B2, Whole 236 ug/L (Normal) Comments: PATIENT NOT FASTINGPERFORMED BY: [facility] Qzaxhk3172 Hansen RoadDublin [place] [id number] BY: [address] [id number] 5:40 Blood Range: 137-370 Comments: Reference interval reflects flavinadeninedinucleotide (FAD), that accounts for approximately 90% of the total riboflavin in whole blood. 00-Mld-794553:40 Vitamin B6, Plasma Comments: PATIENT NOT FASTINGPERFORMED BY: [facility] Oizaed6490 Hansen RoadDublin [place] [id number] BY: [address] [id number] (10360) Vitamin B6 36.6 ug/L (Normal) Range: 5.3-46.7 24-Cyp-945645:40 ALCOHOL, ETHYL (BLOOD) Comments: serum alcohol; PATIENT NOT FASTINGPERFORMED BY: [facility] Cbjsuw9179 Hansen RoadDublin [place] [id number] BY: [address] [id number] (81943) Ethanol Negative % (Normal) 80-Sle-099605:40 AMMONIA (43604) Comments: PATIENT NOT FASTINGPERFORMED BY: [facility] Ilmjti1187 Hansen RoadDublin [place] [id number] BY: [address] [id number] Ammonia, Plasma 42 ug/dL (Normal) Range: 27-102 99-Vjz-441748:40 VITAMIN B-12 Comments: PATIENT NOT FASTINGPERFORMED BY: [facility] Jwyqcw0803 Hansen RoadDublin [place] [id number] BY: [facility] [id number] (CYANOCOBALAMIN) (52007) Vitamin B12 417 pg/mL (Normal) Range: 211-946 :40 SED RATE ERYTHROCYTE Comments: PATIENT NOT FASTINGPERFORMED BY: [place] 7736970 [facility] [id number] BY: [address] [id number] (57909) Sedimentation Rate-Westergren 8 mm/h (Normal) Range: 0-30 40-Ksg-223966:40 RHEUMATOID FACTOR-QUANT Comments: PATIENT NOT FASTINGPERFORMED BY: [facility] LebarioThomas [place] 2353770 [facility] [id number] BY: [address] [id number] (83321) RA Latex Turbid. 10.8 {IU/mL} (Normal) Range: 0.0-13.9 85-Xeg-260451:40 METABOLIC PANEL, Comments: PATIENT NOT FASTINGPERFORMED BY: [employer] [id number] BY: [address] [id number] COMPREHENSIVE (39329) ALT (SGPT) 25 [iU]/L (Normal) Range: 0-44 [...] Glucose, Serum 100 mg/dL (Abnormal) Range: 65-99 44-Lsr-468133:40 C-REACTIVE PROTEIN Comments: PATIENT NOT FASTINGPERFORMED BY: [employer] [id number] BY: [employer] [id number] (21725) C-Reactive Protein, Quant 0.9 mg/L (Normal) Range: 0.0-4.9 26-Ban-460567:40 CBC (AUTO) (53612) Comments: PATIENT NOT FASTINGPERFORMED BY: [employer] [id number] BY: [employer] [id number] Platelets 194 {x10E3/uL} (Normal) Range: 150-379 RDW 15.6 % (Abnormal) Range: 12.3-15.4 MCHC 33.1 g/dL (Normal) Range: 31.5-35.7 MCH 34.4 pg (Abnormal) Range: 26.6-33.0 MCV 104 fL (Abnormal) Range: 79-97 Hematocrit 39.9 % (Normal) Range: 37.5-51.0 Hemoglobin 13.2 g/dL (Normal) Range: 12.6-17.7 RBC 3.84 {x10E6/uL} (Abnormal) Range: 4.14-5.80 WBC 5.9 {x10E3/uL} (Normal) Range: 3.4-10.8 56-Hjg-614316:40 CHIQUI (ANTINUCLEAR ANTIBODY) Comments: PATIENT NOT FASTINGPERFORMED BY: [facility] NetworksNew Mexico Behavioral Health Institute at Las VegasZeaacr8350 [facility] [id number] BY: [address] [id number] (84590) CHIQUI Direct Negative (Normal) :40 TSH (01425) Comments: PATIENT NOT FASTINGPERFORMED BY: [facility] NetworksChilton Memorial HospitalRptcip6778 [facility] [id number] BY: [address] [id number] TSH 2.350 {uIU/mL} (Normal) Range: 0.450-4.500 :40 T4, FREE (THYROXINE) Comments: PATIENT NOT FASTINGPERFORMED BY: [employer] Uewpzz6488 [facility] [id number] BY: [address] [id number] (09696) T4,Free(Direct) 0.95 ng/dL (Normal) Range: 0.82-1.77 :40 T3, FREE (TRIDOTHYRONINE) Comments: PATIENT NOT FASTINGPERFORMED BY: [employer] Tahkmo8368 [facility] [id number] BY: [address] [id number] (07966) Triiodothyronine,Free,Serum 2.7 pg/mL (Normal) Range: 2.0-4.4 43-Tve-834023:40 CALCIFIDIOL (28557) VIT D Comments: PATIENT NOT FASTINGPERFORMED BY: [facility] NetworksChilton Memorial HospitalZtsfys2370 [facility] [id number] BY: [address] [id number] 25 Vitamin D, 25-Hydroxy 43.4 ng/mL (Normal) Range: 30.0-100.0 Comments: Vitamin D deficiency has been defined by the [place] [employer] and an Endocrine Society practice guideline as alevel of serum 25-OH vitamin D less than 20 ng/mL (1,2).The Endocrine Society went on to further define vitamin Dinsufficiency as a level between 21 and 29 ng/mL (2).1. IOM ([place] [employer]). 2010. Dietary reference intakes for calcium and D. Ca DC: The National Academies Press.2. Elyse MF, Saumya PUENTE, Nai MARIANO, et al. Evaluation, treatment, and prevention of vitamin D deficiency: an Endocrine Society clinical practice guideline. JCEM. 2010; 96(7):1911-30. 98-Prv-659192:45 Alcohol, Blood (Medical)-Serum Comments: [facility] [address] [place], [place], [address] SERUM ETOH 353.0 mg/dL (Abnormal) Comments: CALLED KEESHA LOBO RN ED [place] 2054PM MAF READ BACK BY SAMEThe serum:whole blood ethanol ratio is approximately 1.14and varies slightly with hematocrit.Medical Alcohol reference interval and critical v alue innon-tolerant individuals; 50 - 100 Impairment 100 Intoxication 100 - 250 Severe Poisoning 250 - 400 Deep/possible fatal coma 83-Zwm-357333:45 Basic Metabolic Profile (BMP) Comments: 'TROP' Serial specimen #1, #2, #3, or #4: [facility] [address]acihemt[address] [place], [place], [address] GAP 10 (Normal) Range: 5-15 CO2 26.0 [...] Range: 70-110 :45 CBC W/Diff, Automated Comments: [facility] Ohpezzhado[address] [place], [place], [address] Absolute Lymph 2.30 {X10_3/ul} (Normal) Range: 0.83-4.51 [...] Range: 4.4-11.0 :45 Partial Thromboplast Time Comments: [facility] [address] [place], [place], [address] PTT 28.3 s (Normal) Range: 24.1-36.2 :45 Prothrombin Time w/INR Comments: [facility] [address] [place], [address] INR 1.1 (Normal) PROTIME 14.1 s (Normal) Range: 11.7-14.9 :45 Troponin-I Comments: 'TROP' Serial specimen #1, #2, #3, or #4: 1W[facility] [address] [place], [place], [address] TROPONIN-I < 0.02 ng/mL (Normal) Comments: TROPONIN-I EXPECTED VALUES <0.05 NEGATIVE 0.06 - 0.59 AT RISK OF NC > OR = 0.60 SUGGEST NC :24 Prothrombin Time w/INR Comments: [address] [place], [place], [address] ; [facility] INR 1.3 (Normal) PROTIME 15.2 s (Abnormal) Range: 11.7-14.9 29-Xrm-752691:46 INR Fingerstick Comments: [facility] Laboratory[address] [place] [address] INR ISTAT 3.90 (Abnormal) Comments: Critical Value > 3.5 :46 Prothrombin Time Fingerstick Comments: [facility] LaboratoryPoint [address] [place] [address] PROTIME ISTAT 43.7 {SEC} (Abnormal) Range: 11.9-14.4 Comments: Reference Range 11.9 - 14.4 :46 Prothrombin Time w/INR Comments: [place] [address] [place], [address] INR 4.0 (Abnormal) Comments: CRITICAL VALUE VERIFIED. CALLED TO MYJTFFG83 Nova Walters.RESULTS READ BACK BY SAME . PROTIME 38.0 s (Abnormal) Range: 11.7-14.9 66-Cny-970616:49 Prothrombin Time w/INR Comments: [facility] [address] [place], [phone] INR 2.8 (Normal) PROTIME 28.4 s (Abnormal) Range: 11.7-14.9 35-Hmq-329683:52 Basic Metabolic Profile (BMP) Comments: Order Date: 05/04/16Order Info: [id number] - *BMPOrder Date: 05/04/16Order Info: [id number] - *Brain Natriuretic Peptide BNPComments: Reason:[facility] Zh[address]qsavb[address] [place], [address] GAP 10 (Normal) Range: 5-15 CO2 30.0 [...] 7-18 GLU 104 mg/dL (Normal) Range: 70-110 13-Mwl-734564:52 BNP,B-Type NATRIURETIC PEPTIDE Comments: Order Date: 05/04/16Order Info: [id number] - *Brain Natriuretic Peptide BNPOrder Date: 05/04/16Order Info: [id number] - *Brain Natriuretic Peptide BNPWooDayton Children's Hospital [address]jmzjff[address] [place], [address] B-TYPE ARASELI PEP 240.6 pg/mL (Abnormal) Range: 0-100 85-Szx-451097:52 Prothrombin Time w/INR Comments: [facility] [address]zh[address] [place], [address] INR 2.5 (Normal) PROTIME 25.8 s (Abnormal) Range: 11.7-14.9 :46 Liver Profile Comments: Order Date: 12/12/15Order Date: 12/12/15W[facility] Oaomagmdic[address] [place], [address] D BILI 0.12 mg/dL (Normal) Range: 0.00-0.30 T BILI 0.30 mg/dL (Normal) Range: 0.20-1.00 ALT 35 U/L (Normal) Range: 12-78 ALK P 56 U/L (Normal) Range: 45-117 AST 25 U/L (Normal) Range: 15-37 Comments: Slight Hemolysis, Result may be falsely increased. GLOB 3.7 g/dL (Abnormal) Range: 2.3-3.5 ALB 3.7 g/dL (Normal) Range: 3.4-5.0 T PROT 7.4 g/dL (Normal) Range: 6.4-8.2 04-Utv-216126:46 Prothrombin Time w/INR Comments: [facility] [address]rfnnqqy[address] [place], [address] INR 3.6 (Abnormal) Comments: CRITICAL VALUE REPEATED AND VERIFIED. CALLED TO DARRYL MEYERS'S OFFICE.04/26/16 1238 Randy Buchanan.RESULTS READ BACK BY SAME. PROTIME 35.0 s (Abnormal) Range: 11.7-14.9 :58 Basic Metabolic Profile (BMP) Comments: [facility] [address]qhpvl[address] [place], [address] GAP 7 (Normal) Range: 5-15 CO2 32.0 [...] Range: 70-110 :58 Prothrombin Time w/INR Comments: [facility] [address] [place], [place], [address] INR 1.9 (Normal) PROTIME 20.9 s (Abnormal) Range: 11.7-14.9 :08 Prothrombin Time w/INR Comments: [address] [place], [place], [address] INR 3.3 (Normal) PROTIME 32.5 s (Abnormal) Range: 11.7-14.9 :34 Prothrombin Time w/INR Comments: [address] [place], [address] ; managed by [facility] INR 2.6 (Normal) PROTIME 27.0 s (Abnormal) Range: 11.7-14.9 :16 HgA1C , Office (99836) HgA1C , Office 5.7 % (Normal) Range: 4.6 - 7.1 71-Ymz-779524:13 Prothrombin Time w/INR Comments: [address] [place], [place], [address] INR 2.6 (Normal) PROTIME 27.1 s (Abnormal) Range: 11.7-14.9 :26 CBC W/Diff, Automated Comments: [address] [place], [address] Absolute Lymph 1.54 {X10_3/ul} (Normal) [...] ORDERED VITD LIPID MAG CBCD CMP [facility] [address]pc[address]qfra[address] [place], [place], [address] GAP 4 (Abnormal) Range: 5-15 CO2 28.0 [...] ORDERED VITD LIPID MAG CBCD CMP [facility] Rah[address]ztocd1330 [place], [address] VLDL 72 mg/dL (Abnormal) Range: 5-40 LDL [...] ORDERED PT/INRDR.IRVIN ORDERED VITD LIPID MAG CBCD [facility] Rslxiclgpr60[address] [place], [phone](353 MG 2.6 mg/dL (Abnormal) Range: 1.8-2.4 :26 Microalb:Creat Ratio,Random UR Comments: [facility] Zubehlpilk[address] [place], [phone] MALB:CREAT 24.3 {mg/g_CRE} (Normal) MICROALBUMIN,UR 70.9 mg/L (Normal) UR CREAT 292.00 mg/dL (Normal) :26 Prothrombin Time w/INR Comments: [facility] Ofanqyvlik[address] [place], [address] INR 3.5 (Abnormal) Comments: CRITICAL VALUE REPEATED AND VERIFIED. CALLED TO ORTIZ LABOY'S OFFICE.03/16/16 0742 Randy Buchanan.RESULTS READ BACK BY SAME. PROTIME 33.9 s (Abnormal) Range: 11.7-14.9 :26 Thyroid Stim Hormone (TSH) Comments: ORDERED PT/INRDR.IRVIN ORDERED VITD LIPID MAG CBCD [facility] Wwtlnjclpy280[address] [place], [phone] TSH 2.35 {uIU/mL} (Normal) Range: 0.358-3.74 :26 Urinalysis, Complete Comments: How was Urine Obtained? CLEAN [facility] Jsvpqffsxy[address] [place], [address] HYALINE CAST 5-10 SEEN {/lpf} (Normal) Range: [...] Yellow (Normal) :26 Vitamin D,25 Hydroxy Comments: [facility] [address] [place], [address] Vitamin D 25-OH 39.8 ng/mL (Normal) Comments: Vitamin D 25(OH) Status Range Deficiency <20 ng/mL (50nmol/L) Insuffciency 20 - 30 ng/mL (50 - 75 nmol/L) Sufficiency 30 - 100 ng/mL (75 - 250 nmol/L) Toxicity >100 ng/mL (>250 nmol/L) :03 Prothrombin Time w/INR Comments: [facility] [address] [place], [address] INR 4.0 (Abnormal) Comments: CRITICAL VALUE REPEATED AND VERIFIED. CALLED TO [facility]03/10/16 0907 Alice Luque.RESULTS READ BACK BY SAME . PROTIME 37.4 s (Abnormal) Range: 11.7-14.9 :57 Prothrombin Time w/INR Comments: [facility] [address] [place], [place], [phone] INR 1.6 (Normal) PROTIME 18.3 s (Abnormal) Range: 11.7-14.9 :02 Prothrombin Time w/INR Comments: [facility] [address] [place], [address] INR 1.8 (Normal) PROTIME 20.6 s (Abnormal) Range: 11.7-14.9 :12 Prothrombin Time w/INR Comments: [place] [address] [place], [address] INR 2.3 (Normal) PROTIME 24.4 s (Abnormal) Range: 11.7-14.9 :50 Prothrombin Time w/INR Comments: [place] [address] [place], [address](550) INR 2.8 (Normal) PROTIME 28.9 s (Abnormal) Range: 11.7-14.9 :40 INR Fingerstick Comments: [place] [address] [place] [address](176) INR ISTAT 2.40 (Normal) Comments: Critical Value > 3.5 :40 Prothrombin Time Fingerstick Comments: [place] [address] [place] [address] PROTIME ISTAT 27.5 {SEC} (Abnormal) Range: 11.9-14.4 Comments: Reference Range 11.9 - 14.4 :54 Prothrombin Time w/INR Comments: THERE IS NO VRO CHARGE ON THIS PATIENT; THIS PATIENTRETURNED FROM TUESDAY. A BMP AND A PT WAS SUPPOSED TO BEDRAWN, ONLY THE BMP WAS DONE. [place] [address] [place], [address] INR 2.8 (Normal) PROTIME 28.4 s (Abnormal) Range: 11.7-14.9 :38 Basic Metabolic Profile (BMP) Comments: Order Date: 01/08/16Comments: Reason:Order Date: 01/08/16Comments: Reason:[place] [address] [place], [address] GAP 9 (Normal) Range: 5-15 CO2 [...] A.D.A. criteria. :52 Prothrombin Time w/INR Comments: [facility] [address] [place], [address](397) INR 4.6 (Abnormal) Comments: CRITICAL VALUE REPEATED AND VERIFIED. CALLED TO [facility]02/05/16 1003 Alice Luque.RESULTS READ BACK BY SAME . PROTIME 41.9 s (Abnormal) Range: 11.7-14.9 :01 Prothrombin Time w/INR Comments: [facility] [address] [place], [place], [phone] INR 2.5 (Normal) PROTIME 26.0 s (Abnormal) Range: 11.7-14.9 :40 Prothrombin Time w/INR Comments: [facility] [address] [place], [place], [phone] INR 2.5 (Normal) PROTIME 26.1 s (Abnormal) Range: 11.7-14.9 :52 Prothrombin Time w/INR Comments: [facility] [address] [place], [address] INR 2.3 (Normal) PROTIME 24.3 s (Abnormal) Range: 11.7-14.9 1-Gtp-464665:24 Basic Metabolic Profile (BMP) Comments: Order Date: 01/13/16Comments: Reason: For Out patient Cardioversion on 02/16/16Order Date: 01/13/16Comments: Reason: For Out patient Cardioversion on 02/16/16[facility] [address]vwwisii[address] [place], [phone] GAP 5 (Normal) Range: 5-15 CO2 33.0 [...] Comments: Order Date: 12/09/15Interface Comments: Reason:Order Date: 12/09/15[facility] [address] [place], [phone] GAP 9 (Normal) Range: 5-15 CO2 29.0 [...] 01/05/16Interface Comments: Reason:Atrial fib, on CoumadinOrder Date: 01/05/16[facility] [address]cvruhh[address] [place], [place], [phone](736) INR 3.6 (Abnormal) Comments: CRITICAL VALUE REPEATED AND VERIFIED. CALLED TO CANDACE P001/07/16 0819 Terrie Toussaint.RESULTS READ BACK BY CANDACE. PROTIME 34.9 s (Abnormal) Range: 11.7-14.9 :21 Prothrombin Time w/INR Comments: [facility] [address] [place], [place], [phone](984) INR 2.1 (Normal) PROTIME 23.1 s (Abnormal) Range: 11.7-14.9 :12 Prothrombin Time w/INR Comments: Order Date: 12/26/15Interface Comments: draw on arrivalOrder Date: 12/26/15[facility] [address] [place], [place], [phone](623) INR 2.9 (Normal) PROTIME 29.2 s (Abnormal) Range: 11.7-14.9 :08 Prothrombin Time w/INR Comments: [facility] [address] [place], [place], [phone](028) INR 1.7 (Normal) PROTIME 19.6 s (Abnormal) Range: 11.7-14.9 :03 Prothrombin Time w/INR Comments: Order Date: 12/18/15Order Date: 12/18/15[facility] [address]jcfoeap[address] [place], [address] INR 4.1 (Abnormal) Comments: CRITICAL VALUE REPEATED AND VERIFIED. CALLED TO DARRYL LABOY'S OFFICE.12/23/15 0803 Randy Buchanan.RESULTS READ BACK BY SAME. PROTIME 38.6 s (Abnormal) Range: 11.7-14.9 3-Bcc-865624:16 Basic Metabolic Profile (BMP) Comments: Order Date: 12/18/15Interface Comments: Reason:Order Date: 12/18/15[facility] [address]ccfzpz[address] [place], [address] GAP 9 (Normal) Range: 5-15 CO2 28.0 [...] A.D.A. criteria. 16-Dec-20158:11 Prothrombin Time w/INR Comments: [facility] [address]wn[address] [place], [address] INR 3.6 (Abnormal) Comments: CRITICAL VALUE REPEATED AND VERIFIED. CALLED TO TORITO MEHTA12/16/15 Ondina Luque.RESULTS READ BACK BY SAME . PROTIME 34.5 s (Abnormal) Range: 11.7-14.9 :10 Basic Metabolic Profile (BMP) Comments: Order Date: 12/04/15Interface Comments: Reason:Order Date: 12/04/15[facility] [id number] [place], [place], [phone] GAP 8 (Normal) Range: 5-15 CO2 28.0 [...] Comments: Order Date: 12/04/15Interface Comments: Reason:Order Date: 12/04/15[facility] [id number] [place], [place], [id number] VLDL Test not performed mg/dL (Normal) Range: [...] Comments: Order Date: 12/04/15Interface Comments: Reason:Order Date: 12/04/15[facility] [id number] [place], [phone]) D BILI 0.11 mg/dL (Normal) Range: 0.00-0.30 T BILI 0.30 mg/dL (Normal) Range: 0.20-1.00 ALT 63 U/L (Normal) Range: 12-78 ALK P 64 U/L (Normal) Range: 50-136 AST 33 U/L (Normal) Range: 15-37 GLOB 3.2 g/dL (Normal) Range: 2.3-3.5 ALB 3.5 g/dL (Normal) Range: 3.4-5.0 T PROT 6.7 g/dL (Normal) Range: 6.4-8.2 :10 Magnesium Comments: Order Date: 12/04/15Interface Comments: Reason:Order Date: 12/04/15[facility] [id number] [place], [phone]([phone]) MG 2.1 mg/dL (Normal) Range: 1.8-2.4 :10 Prothrombin Time w/INR Comments: Order Date: 12/04/15Interface Comments: Reason:Order Date: 12/04/15[facility] [address]zf[address]ksx[address] [place], [phone](316) INR 1.7 (Normal) PROTIME 19.3 s (Abnormal) Range: 11.7-14.9 :10 Thyroid Stim Hormone (TSH) Comments: Order Date: 12/04/15Interface Comments: Reason:Order Date: 12/04/15[facility] [address] [place], [address] TSH 1.65 {uIU/mL} (Normal) Range: 0.358-3.74 :41 MAGNESIUM (32142) Comments: PATIENT NOT FASTINGPERFORMED BY: [facility] HospitalHdlyvq8567 [facility] [id number] Magnesium, Serum 2.1 mg/dL (Normal) Range: 1.6-2.3 [...] Basic Comments: PATIENT NOT FASTINGPERFORMED BY: [facility] Yhvumq3942 [facility] [id number] Information: [id number] (15169) Calcium, Serum 9.1 mg/dL (Normal) Range: 8.6-10.2 [...] Range: 65-99 :21 Blood Glucose , Office (48255) Blood Glucose , Office 99 (Normal) :21 HgA1C , Office (81926) HgA1C , Office 5.0 % (Normal) Range: 4.6 - 7.1 :49 RETICULOCYTE COUNT (81370) Comments: PATIENT NOT FASTINGPERFORMED BY: [facility]6370 [facility] [id number] Reticulocyte Count 2.4 % (Normal) Range: 0.6-2.6 95-Fxi-613731:49 VITAMIN B-12 (CYANOCOBALAMIN) Comments: PATIENT NOT FASTINGPERFORMED BY: [facility] HospitalWcvmdm7199 [facility] [id number] Information: [id number] (69505) Vitamin B12 560 pg/mL (Normal) Range: 211-946 :36 Bilirubin, Direct Comments: [facility] [address] [place], [address] D BILI 0.14 mg/dL (Normal) Range: 0.00-0.30 :36 CBC W/Diff, Automated Comments: [facility] [address] [place], [address] Absolute Lymph 1.26 {X10_3/ul} (Normal) Range: 0.83-4.51 [...] 4.6-6.2 WBC 5.1 K/mm3 (Normal) Range: 4.4-11.0 40-Kmx-79021:36 Comprehensive Metabolic Profil Comments: [facility] [address] [place], [place], [phone] GAP 6 (Normal) Range: 5-15 CO2 30.0 [...] per A.D.A. criteria. :36 Lipid Profile Comments: [facility] [address] [place], [place], [phone] VLDL 62 mg/dL (Abnormal) Range: 5-40 LDL [...] High Risk :36 Microalb:Creat Ratio,Random UR Comments: [facility] Qwiotklgoq5714 [facility] [address] [place], [place], [phone] MALB:CREAT 142.0 {mg/g_CRE} (Abnormal) MICROALBUMIN,UR 223.0 mg/L (Normal) UR CREAT 157.00 mg/dL (Normal) :36 Thyroid Stim Hormone (TSH) Comments: [facility] Theqsltwcx0003 [facility] [address] [place], [place], [phone] TSH 1.17 {uIU/mL} (Normal) Range: 0.358-3.74 :36 Urinalysis, Complete Comments: How was Urine Obtained? CLEAN [facility] [address]zwnd[address] [place], [place], [phone] MUCUS, URINE 0 SEEN {/hpf} (Normal) BACTERIA [...] Yellow (Normal) :36 Vitamin D,25 Hydroxy Comments: [facility] Ngaunnlkqt3252 [facility]. [place], [place], [phone] Vitamin D 25-OH 21.0 ng/mL (Normal) Comments: Vitamin D 25(OH) Status Range Deficiency <20 ng/mL (50nmol/L) Insuffciency 20 - 30 ng/mL (50 - 75 nmol/L) Sufficiency 30 - 100 ng/mL (75 - 250 nmol/L) Toxicity >100 ng/mL (>250 nmol/L) :29 HgA1C , Office (73894) HgA1C , Office 5.6 % (Normal) Range: 4.6 - 7.1 :29 Blood Glucose , Office (04437) Blood Glucose , Office 96 (Normal) :29 CBC W/Diff, Automated Comments: [facility] Hdjismmbau4665 [place], [address] Absolute Lymph 2.04 {X10_3/ul} (Normal) [...] 4.6-6.2 WBC 7.9 K/mm3 (Normal) Range: 4.4-11.0 85-Rhh-794243:29 Comprehensive Metabolic Profil Comments: [facility] Umzmqjlazr6915 [place], [place], [phone] GAP 12 (Normal) Range: 5-15 CO2 25.0 [...] HOMEOSTASIS per A.D.A. criteria. :16 Rapid Flu (67089 x 2) Influenza A Ag neg a and b (Normal) :13 Basic Metabolic Profile (BMP) Comments: [facility] [address] [place], [address] GAP 4 (Abnormal) Range: 5-15 CO2 33.0 [...] 7-18 GLU 90 mg/dL (Normal) Range: 70-110 37-Mpy-739175:50 HgA1C , Office (02948) HgA1C , Office 5.2 % (Normal) Range: 4.6 - 7.1 :50 Blood Glucose , Office (36549) Blood Glucose , Office 111 (Normal) :48 Basic Metabolic Profile (BMP) Comments: [facility] [address] [place], [address] GAP 7 (Normal) Range: 5-15 CO2 31.0 [...] A.D.A. criteria. :48 T4 Total, Thyroxin Comments: [facility] [address] [place], [phone] T4 THYROXIN 6.7 ug/dL (Normal) Range: 4.5-12.1 :48 Thyroid Stim Hormone (TSH) Comments: [facility] [address] [place], [phone] TSH 1.02 {uIU/mL} (Normal) Range: 0.358-3.74 :35 CBC W/Diff, Automated Comments: [facility] [address] [place], [address] Absolute Lymph 1.13 {X10_3/ul} (Normal) [...] Range: 4.4-11.0 :35 Comprehensive Metabolic Profil Comments: [facility] [address] [place], [address] GAP 5 (Normal) Range: 5-15 [...] (Normal) Range: 70-110 :35 Lipid Profile Comments: [facility] [address] [place], [place], [phone] VLDL 44 mg/dL (Abnormal) Range: 5-40 LDL [...] High Risk :35 Microalb:Creat Ratio,Random UR Comments: [facility] [address] [place], [address] MALB:CREAT 31.9 {mg/g_CRE} (Abnormal) MICROALBUMIN,UR 31.7 mg/L (Normal) UR CREAT 99.40 mg/dL (Normal) :35 Thyroid Stim Hormone (TSH) Comments: [facility] [address] [place], [address] TSH 1.05 {uIU/mL} (Normal) Range: 0.358-3.74 :35 Urinalysis, Complete Comments: How was Urine Obtained? CLEAN [facility] [address] [place], [address] MUCUS, URINE 0 SEEN {/hpf} (Normal) [...] COLOR Yellow (Normal) :48 HgA1C , Office (78165) HgA1C , Office 5.2 % (Normal) Range: 4.6 - 7.1 :48 Blood Glucose , Office (38938) Blood Glucose , Office 114 (Normal) 59-Jjw-906438:03 MRSA/SAID SCREEN Comments: [facility] [address] [place], [address] MRSA+SAID SCRN See Note (Normal) Comments: MRSA/SAID SCRNS. AUREUS S. aureus NegativeMRSA MRSA Negative :13 CBC W/Diff, Automated Comments: Test performed at:[facility] [address] [place] [address] Absolute Lymph 1.57 {X10_3/ul} (Normal) [...] :13 Comprehensive Metabolic Profil Comments: Test performed at:[facility] Ixbjpoldwb2890 [facility] [place] [address] GAP 4 (Abnormal) Range: 5-15 [...] 70-110 :13 Lipid Profile Comments: Test performed at:[facility] [address] [place] [address] VLDL 35 mg/dL (Normal) Range: [...] :13 Microalb:Creat Ratio,Random UR Comments: Test performed at:[facility] Rzacawqtqx2878 [place] [address] MALB:CREAT 5.0 {mg/g_CRE} (Normal) MICROALBUMIN,UR 5.2 mg/L (Normal) UR CREAT 89.50 mg/dL (Normal) :13 Thyroid Stim Hormone (TSH) Comments: Test performed at:[facility] [address] [place] [address] TSH 0.97 {uIU/mL} (Normal) Range: 0.358-3.74 :13 Urinalysis, Routine (Dipstick) Comments: How was Urine Obtained? CLEAN CATCHTest performed at:[facility] [address]azip[address]ed6258 [place] [address] LEUK ESTERASE Negative /ul (Normal) OCCULT BLOOD-UR Negative /ul (Normal) NITRITE UR Negative (Normal) UROBILI Normal mg/dL (Normal) PROT DIPSTX Negative mg/dL (Normal) pH UR 6.0 (Normal) Range: 5.0 - 8.0 SP.GR. DIPSTX 1.015 (Normal) Range: 1.002-1.030 KETONE UR Negative mg/dL (Normal) BILIRUBIN URINE Negative mg/dL (Normal) GLUCOSE, UR Normal mg/dL (Normal) CLARITY Clear (Normal) COLOR Yellow (Normal) :35 HgA1C , Office (24222) HgA1C , Office 5.7 % (Normal) Range: 4.6 - 7.1 :35 Blood Glucose , Office (67368) Blood Glucose , Office 111 (Normal) :40 Miscellaneous Lab Procedure Comments: Comments: DRUG SCREEN [id number]([id number]) Ordered: DRUG SCREEN [id number] performed at:[facility] Lwvqcjimcl9410 [facility] [place], [place] [address] ; [facility] Comments: [id number] 6+OXYCODONE-BUND (ng/mL)DRUG RESULT SCREEN CUTOFF____ Amphetamines NEGAT LAB (Normal) BARI ng/mL 1000Barbiturates NEGATIVE ng/mL 200Benzodiazepines NEGATIVE ng/mL 200Cannabinoid NEGATIVE ng/mL 20Cocaine (Metab) NEG TEST ATIVE ng/mL 300Opiates NEGATIVE ng/mL 300 Opiates test includes Codeine, Morphine, Hydromorphone, Hydrocodone.Oxycodone/Oxymorphone,Urine NEGATIVE ng/mL 300 Test includes Oxydodone and Oxymorphone. TESTING PERFORMED AT [facility]. ORIGINAL REPORT ON FILE IN LAB CONTAINS ADDITIONAL TEST SITE INFORMATIO N. 1-Kut-937831:40 Urine Drug Screen (VISTA) Comments: Comments: DRUG SCREEN [id number] of Drugs Taken or Suspected? .Test performed at:[facility] [place] [address]. [place] [address] THC NEGATIVE (Normal) PCP NEGATIVE (Normal) OPIATES [...] TESTING MUST BE ORDERED SEPARATELY. USE TESTMNEMONIC: [facility] :25 Vitamin D,25 Hydroxy Comments: Has pt arrived? YTest performed at:[facility] Zcanlzajpw7202 [place] [address] Vitamin D 25-OH 38.2 ng/mL (Normal) Comments: Vitamin D 25(OH) Status Range Deficiency <20 ng/mL (50nmol/L) Insuffciency 20 - 30 ng/mL (50 - 75 nmol/L) Sufficiency 30 - 100 ng/mL (75 - 250 nmol/L) Toxicity >100 ng/mL (>250 nmol/L) :24 Urinalysis, Routine (Dipstick) Comments: Has pt arrived? YHow was Urine Obtained? CLEAN CATCHTest performed at:[facility] Wbmtmvopgh8140 [place] [address] LEUK ESTERASE Negative /ul (Normal) [...] pt arrived? YHas pt arrived? YTest performed at:[facility] Wpaxodhdcq8865 [place] [address] GAP 5 (Normal) Range: 5-15 [...] pt arrived? YHas pt arrived? YTest performed at:[facility] [address] [place] [address] VLDL 12 mg/dL (Normal) Range: [...] UR Comments: Has pt arrived? YTest performed at:[facility] Lzuxftqihd4661 [place] [address] MALB:CREAT 4.2 {mg/g_CRE} (Normal) MICROALBUMIN,UR 5.6 mg/L (Normal) UR CREAT 131.9 mg/dL (Normal) :23 Thyroid Stim Hormone (TSH) Comments: Has pt arrived? YHas pt arrived? YTest performed at:[facility] [address]qqll07[address] [place] [address] TSH 1.09 {uIU/mL} (Normal) Range: 0.358-3.74 :22 CBC W/Diff, Automated Comments: Has pt arrived? YTest performed at:[facility] Swphpcniwn4734 [facility] [place], [place] [address] Absolute Lymph 1.37 {X10_3/ul} (Normal) Range: 0.83-4.51 [...] (Abnormal) Range: 4.4-11.0 :54 HgA1C , Office (01713) HgA1C , Office 5.8 % (Normal) Range: 4.6 - 7.1 :02 Basic Metabolic Profile (BMP) Comments: ADDED BMPTest performed at:[facility] [address] [place] [address] GAP 6 (Normal) Range: 5-15 [...] 70-110 :02 Lipid Profile Comments: Test performed at:[facility] [address] [place] [address] VLDL 96 mg/dL (Abnormal) Range: [...] Risk :02 Liver Profile Comments: Test performed at:[facility] [address] [place] [address] D BILI 0.10 mg/dL (Normal) [...] performed using the TPSA assay method for the[facility] chemistry system. Values obtained [...] UCOL Yellow (Normal) :25 HgA1C , Office (88323) HgA1C , Office 5.8 % (Normal) Range: 4.6 - 7.1 :10 Blood Glucose , Office (53585) Blood Glucose , Office 83 (Normal) :10 HgA1C , Office (97491) HgA1C , Office 5.7 % (Normal) Range: [...] 08/13/10 1143 Sign by: JESS HENDRICKS MD 45-Bak-510775:21 COMPLETE UA BACTERIA 0 SEEN {/hpf} (Normal) [...] 7-18 GLU 98 mg/dL (Normal) Range: 70-110 02-Fqi-71444:21 LIPID Comments: appt 07/24/10 VLDL 33 mg/dL [...] 200-240 mg/dL Borderline >240 mg/dL High Risk 1-Zcs-820401:52 KIDNEY Radiology Report See Note (Normal) Comments: [...] by ITS IMPORTSign by Osvaldo Manuel on 05/16/10731 Sign by: Osvaldo Manuel :23 CBCD,SMEAR DIFF [...] CHOL 127 mg/dL (Normal) Comments: <200 mg/dL Zmvyvlmvp078-034 mg/dL Borderline>240 mg/dL High Risk :10 CBCD [...] CHOL 146 mg/dL (Normal) Comments: <200 mg/dL Owtmdsbtr382-089 mg/dL Borderline>240 mg/dL High Risk TRIG 166 [...] Report See Note (Normal) Comments: Exam Number: [id number] CLINICAL: Fatigue MRI BRAIN WITH AND WITHOUT [...] of remotetrauma. Reported By: HUEY ERAZO M.D. 60-Vpf-026600:19 CHIQUI-D 550265 CHIQUI-DIRECT SeeNote (Normal) Comments: Result: NegativePerformed At: [facility] Rlekis[address] [place], [place] [address] :07 B12/FOLATES FOLATES 26.50 ng/mL (Abnormal) Range: [...] 6.4-8.2 GLU 75 mg/dL (Normal) Range: 70-110 93-Hnh-730570:28 ESR SED RATE 6 mm/h (Normal) Range: 0-20 61-Sha-139820:28 CBCD BASO% 0.5 % (Normal) Range: 0-1 [...] 4.6-6.2 WBC 9.4 K/mm3 (Normal) Range: 4.4-11.0 5-Nsg-343514:18 CULTURE, THROAT See Note (Normal) Comments: Normal throat susanne isolated. No beta-hemolyticstreptococcus isolated. 14-Apr-20098:48 Rapid Strep Test, Office (90828) Rapid Strep Test, Office Negative (Normal) 3-Vvt-437666:59 CTA NECK W/WO CONTRAST Radiology Report See Note (Normal) Comments: Exam Number: [id number] HISTORYCarotid stenosis. Abnormal carotid artery ultrasound. CT [...] K 4.5 mmol/L Range: 3.5-5.1 0:00 (Normal) 56-Ptv-537150:19 BMP BUN 35 mg/dL (Abnormal) Range: 7-18 [...] 254-1320 :43 FECAL OCCULT- Tubes sent home (38525) FECAL OCCULT HGB ASSAY, QUAL, 1-3 SIMULTANEOU neg (Normal) :12 Rapid Flu (32066 x 2) Comments: done BC INFLUENZA IMMUNOASSY [...] was performed using the TPSA method for the[facility] chemistry system.Values obtained with [...] GLU 2 HR GLU GTT-2 HOUR from 918:Y62386I. Range: 70-120 :05 GLU GTT-1 HOUR 183 mg/dL (Abnormal) Comments: 2HR GTT GLU 1 HR GLU GTT-1 HOUR from 918:H86196B. Range: 120-170 :31 GLU GTT-30 min. 170 mg/dL (Normal) Comments: 2HR GTT GLU 1/2 HR GLU GTT-30 min. from 918:J92932M. Range: 110-170 :00 D BILI 0.09 mg/dL [...] Comments: 2HR GTT FASTING GLU GTT-FASTING from 0919:U52874Z. Range: 70-110 Comments: GLUCOSE TOLERANCE TEST Reference [...] was performed using the TPSA method for the[employer] chemistry system.Values obtained with different assay methods [...] Lumbar stenosis with neurogenic claudication : Reviewed Comber Fixer Letter Indication: Lumbar stenosis with neurogenic claudication [...] disease Coronary artery disease, non-occlusive : Reviewed Comber Fixer Letter Indication: Coronary artery disease, non-occlusive BMI 40.0-44.9, adult : Eprescribed prescriptions (G8553) Indication: BMI 40.0-44.9, adult Impaired fasting glucose : Follow up in 4 months Indication: Impaired fasting glucose Coronary artery disease, non-occlusive : Reviewed Comber Fixer Letter Indication: Coronary artery disease, non-occlusive Hypertension [...] controlled Coronary artery disease, non-occlusive : Reviewed Comber Fixer Letter Indication: Coronary artery disease, non-occlusive Hypertension [...] glucose Coronary artery disease, non-occlusive : Reviewed Comber Fixer Letter Indication: Coronary artery disease, non-occlusive 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 Indication: Hypertension with heart disease Impaired fasting glucose : *Diabetes Education Indication: Impaired fasting glucose Nonsmoker : Eprescribed prescriptions (G8553) Indication: Nonsmoker Depression, acute : Reviewed Comber Fixer Letter Indication: Depression, acute Other chronic pain : Reviewed Lab Indication: Other chronic pain Depression, acute : Follow up in 2 weeks Indication: Depression, acute Accidental fall, initial encounter : Follow up in 1 week Indication: Accidental fall, initial encounter Depression : Reviewed Lab Indication: Depression Depression : Reviewed Diagnostic Tests Indication: Depression Depression : Reviewed Comber Fixer Letter Indication: Depression Cellulitis : Eprescribed prescriptions (G8553) Indication: Cellulitis Cellulitis : Follow up in 1 week Indication: Cellulitis Nonsmoker : Eprescribed prescriptions (G8553) Indication: Nonsmoker Hypertension with heart disease : Reviewed Lab Indication: Hypertension with heart disease Impaired fasting glucose : Follow up in 4 months Indication: Impaired fasting glucose Hypertension with heart disease : Reviewed Comber Fixer Letter Indication: Hypertension with heart disease Hypertension [...] artery disease Coronary artery disease : Reviewed Comber Fixer Letter Indication: Coronary artery disease Carotid stenosis : Reviewed Comber Fixer Letter Indication: Carotid stenosis Hypercholesterolemia : Cholesterol [...] artery disease Coronary artery disease : Reviewed Comber Fixer Letter: sees Dr Maria Indication: Coronary artery disease Impaired fasting glucose : Eprescribed prescriptions (G8553) Indication: Impaired fasting glucose Hypercholesterolemia : Cholesterol mgmt Indication: Hypercholesterolemia Coronary artery disease : Continue Current Prescription(s) Indication: Coronary artery disease Coronary artery disease : Reviewed Comber Fixer Letter Indication: Coronary artery disease 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 Indication: Hypertension with heart disease Hypertension with heart disease : Follow up in 4 months Indication: Hypertension with heart disease Impaired fasting glucose : Eprescribed prescriptions (G8553) Indication: Impaired fasting glucose Coronary artery disease : Reviewed Comber Fixer Letter Indication: Coronary artery disease Impaired fasting [...] Indication: Hypercholesterolemia Coronary artery disease : Reviewed Comber Fixer Letter Indication: Coronary artery disease Impaired fasting [...] for prostate cancer) On: :54 Request CALCIFIDIOL (50966) VIT D 25Indication: Vitamin D deficiency On: :37 Request TSH (66002)Indication: Atrial fibrillation, controlled On: :37 Request URINALYSIS, W/ MICRO (41029)Indication: Impaired fasting glucose On: :37 Request MICROALBUMIN: CREATININE RATIO (16083) AND (92107)Indication: Impaired fasting glucose On: :37 Request METABOLIC PANEL, COMPREHENSIVE (13286)Indication: Impaired fasting glucose On: :37 Request LIPOPROTEIN, BLD, BY NMR (99932)Indication: Impaired fasting glucose On: :37 Request CBC W/AUTO DIFF WBC (22127)Indication: Impaired fasting glucose On: :37 Request VITAMIN B-12 (CYANOCOBALAMIN) (89205)Indication: Vitamin B12 deficiency On: :37 Request MAGNESIUM (30753)Indication: Hypermagnesemia On: :36 Request HgA1C , Office (84811)Indication: Impaired fasting glucose On: 87-Ole-939058:57 Request TSH (36285)Indication: Atrial fibrillation, controlled On: :30 Request URINALYSIS, W/ MICRO (02836)Indication: Hypertension with heart disease On: :30 Request MICROALBUMIN: CREATININE RATIO (82612) AND (85459)Indication: Hypertension with heart disease On: :30 Request METABOLIC PANEL, COMPREHENSIVE (96638)Indication: Hypertension with heart disease On: :30 Request LIPID PANEL (07922)Indication: Coronary artery disease, non-occlusive On: :30 Request CBC W/AUTO DIFF WBC (74117)Indication: Hypertension with heart disease On: :29 Request VITAMIN B-12 (CYANOCOBALAMIN) (43116)Indication: Vitamin B12 deficiency On: :29 Request CALCIFIDIOL (71158) VIT D 25Indication: Vitamin D deficiency On: :29 Request VITAMIN B-12 (CYANOCOBALAMIN) (68320)Indication: Vitamin B12 deficiency On: :36 Request CALCIFIDIOL (65119) VIT D 25Indication: Vitamin D deficiency On: :35 Request TSH (61226)Indication: Impaired fasting glucose On: :34 Request URINALYSIS, W/ MICRO (38121)Indication: Hypertension with heart disease On: :34 Request MICROALBUMIN: CREATININE RATIO (07755) AND (10932)Indication: Hypertension with heart disease On: :34 Request METABOLIC PANEL, COMPREHENSIVE (74621)Indication: Hypertension with heart disease On: :34 Request LIPID PANEL (31769)Indication: Hypercholesterolemia On: :34 Request CBC W/AUTO DIFF WBC (83849)Indication: Hypertension with heart disease On: :34 Request RIBOFLAVIN (B-2) (97429)Indication: Drug intoxication with delirium On: :09 Request LIPID PANEL (05159)Indication: Hypercholesterolemia On: :35 Request VITAMIN B-12 (CYANOCOBALAMIN) (77398)Indication: Vitamin B12 deficiency On: :28 Request CALCIFIDIOL (42870) VIT D 25Indication: Vitamin D deficiency On: :27 Request MAGNESIUM (37795)Indication: Hypermagnesemia On: :27 Request FECAL OCCULT- Tubes sent home (77198)Indication: Encounter for screening for malignant neoplasm of colon (Renamed from Special screening for malignant neoplasms, colon) On: :03 Request PSA (PROSTATE SPECIFIC ANTIGEN) (V76.44)Indication: Encounter for screening for malignant neoplasm of prostate (Renamed from Screening for prostate cancer) On: :03 Request TSH (83949)Indication: Impaired fasting glucose On: :22 Request URINALYSIS, W/ MICRO (45915)Indication: Impaired fasting glucose On: :22 Request MICROALBUMIN: CREATININE RATIO (56527) AND (42787)Indication: Impaired fasting glucose On: :22 Request METABOLIC PANEL, COMPREHENSIVE (73318)Indication: Impaired fasting glucose On: : Request LIPID PANEL (88508)Indication: Hypercholesterolemia On: : Request CBC W/AUTO DIFF WBC (12324)Indication: Impaired fasting glucose On: : Request CALCIFIDIOL (32070) VIT D 25Indication: Vitamin D deficiency On: : Request HEPATIC FUNCTION PANEL (69428)Indication: Elevated liver enzymes On: 39-Mph-230871:29 Request METABOLIC PANEL, COMPREHENSIVE (53041)Indication: Dizzy On: :54 Request CBC W/AUTO DIFF WBC (72362)Indication: Dizzy On: 34-Aow-024128:54 Request FECAL OCCULT- Tubes sent home (92215)Indication: Melena On: :52 Request CALCIFIDIOL (48317) VIT D 25Indication: Dysthymic On: 18-Npg-610316:52 Request TSH (82013)Indication: Hypercholesterolemia On: 98-Fju-799123:52 Request URINALYSIS, W/ MICRO (26809)Indication: Hypertension with heart disease On: 44-Mfz-899716:52 Request MICROALBUMIN: CREATININE RATIO (57629) AND (16989)Indication: Hypertension with heart disease On: 69-Xzw-502089:52 Request METABOLIC PANEL, COMPREHENSIVE (89713)Indication: Hypertension with heart disease On: 45-Irw-870550:52 Request LIPID PANEL (04961)Indication: Hypercholesterolemia On: 56-Ypp-794122:52 Request CBC W/AUTO DIFF WBC (44267)Indication: Hypertension with heart disease On: 89-Dcb-926856:51 Request TSH (20644)Indication: Impaired fasting glucose On: :45 Request URINALYSIS, W/ MICRO (14288)Indication: Impaired fasting glucose On: :45 Request MICROALBUMIN: CREATININE RATIO (32620) AND (27385)Indication: Impaired fasting glucose On: :45 Request METABOLIC PANEL, COMPREHENSIVE (42987)Indication: Impaired fasting glucose On: :45 Request LIPID PANEL (97642)Indication: Impaired fasting glucose On: :45 Request CBC W/AUTO DIFF WBC (18334)Indication: Impaired fasting glucose On: :45 Request CALCIFIDIOL (65890) VIT D 25Indication: Impaired fasting glucose On: :55 Request LIPID PANEL (82080)Indication: Hypertension On: :50 Request TSH (85164)Indication: Impaired fasting glucose On: :50 Request MICROALBUMIN: CREATININE RATIO (08428) AND (31081)Indication: Hypertension On: :50 Request METABOLIC PANEL, COMPREHENSIVE (28469)Indication: Hypertension On: :50 Request MICROALBUMIN: CREATININE RATIO (10700) AND (11396)Indication: Hypertension On: :38 Request URINALYSIS (65659)Indication: Hypertension On: :36 Request CBC WITH MANUAL DIFF (01990)Indication: Hypertension On: :36 Request Metabolic Panel, Comprehensive ([id number])Indication: Hypertension On: :36 Request Lipid Panel (40401)Indication: Hypercholesterolemia On: :36 Request MICROALBUMIN: CREATININE RATIO (12383) AND ([id number])Indication: Hypertension On: :57 Request URINALYSIS ([id number])Indication: Hypertension On: :57 Request CBC WITH MANUAL DIFF ([id number])Indication: Hypertension On: :56 Request Metabolic Panel, Comprehensive ([id number])Indication: Hypertension On: 78-Rud-670796:56 Request CALCIFEDIOL ([id number])Indication: Hypertension On: 54-Uoi-813595:56 Request TSH ([id number])Indication: Hypertension On: 31-Vip-075150:56 Request Lipid Panel ([id number])Indication: Hypercholesterolemia On: 31-Niz-540970:56 Request Lipid Panel ([id number])Indication: Hypercholesterolemia On: 08-Iwd-081823:13 Request URINALYSIS, W/ MICRO ([id number])Indication: Hypertension On: 3-Jot-945712:02 Request MICROALBUMIN: CREATININE RATIO (40771) AND ([id number])Indication: Impaired fasting glucose On: 7-Aai-035562:02 Request CBC W/AUTO DIFF WBC ([id number])Indication: Impaired fasting glucose On: : Request METABOLIC PANEL, COMPREHENSIVE (94811)Indication: Impaired fasting glucose On: : Request PSA (PROSTATE SPECIFIC ANTIGEN) (V76.44)Indication: Benign prostatic hyperplasia with urinary obstruction and other lower urinary tract symptoms On: 15-Jan-20149:55 Request CREATINE KINASE TOTAL (55873)Indication: SOB (shortness of breath) on exertion On: :32 Request Comments: stat D-Dimer ([id number])Indication: SOB (shortness of breath) on exertion On: :32 Request CBC (Auto) ([id number])Indication: SOB (shortness of breath) on exertion On: :32 Request Troponin I ([id number])Indication: SOB (shortness of breath) on exertion On: :31 Request CPK MB FRACTION ([id number])Indication: SOB (shortness of breath) on exertion On: 55-Swc-128881:31 Request MICROALBUMIN: CREATININE RATIO (99601) AND (07802)Indication: Impaired fasting glucose On: 52-Sah-134107:10 Request CBC WITH MANUAL DIFF ([id number])Indication: Hypertension On: :04 Request LIPID PANEL ([id number])Indication: Hypercholesterolemia On: 44-Uzg-228751:04 Request METABOLIC PANEL, COMPREHENSIVE ([id number])Indication: Hypertension On: 98-Qfv-054174:04 Request CBC WITH MANUAL DIFF ([id number])Indication: Hypertension On: :28 Request URINALYSIS, W/ MICRO ([id number])Indication: Hypertension On: :28 Request TSH ([id number])Indication: Dysthymic On: : Request PSA (PROSTATE SPECIFIC ANTIGEN) (V76.44)Indication: Benign prostatic hyperplasia with urinary obstruction and other lower urinary tract symptoms On: : Request LIPID PANEL ([id number])Indication: Hypercholesterolemia On: : Request METABOLIC PANEL, COMPREHENSIVE (20905)Indication: Hypertension On: : Request ASSAY, TROPONIN, QUANTITATIVE (aka Troponin I) ([id number])Indication: SOB (shortness of breath) on exertion On: :08 Request Comments: stat D-Dimer ([id number])Indication: SOB (shortness of breath) on exertion On: : Request Comments: stat URINALYSIS, W/ MICRO ([id number])Indication: Edema On: : Request TSH ([id number])Indication: Edema On: : Request METABOLIC PANEL, COMPREHENSIVE (02551)Indication: Edema On: :06 Request CBC WITH MANUAL DIFF ([id number])Indication: Edema On: : Request URINE BERTHA CULTURE-SUKHWINDER COL COUNT (84047)Indication: PYELONEPHRITIS, ACUTE NOS On: :25 Request LIPID PANEL ([id number])Indication: Hypercholesterolemia On: :12 Request METABOLIC PANEL, COMPREHENSIVE ([id number])Indication: Hypertension On: :12 Request PSA (PROSTATE SPECIFIC ANTIGEN) (V76.44)Indication: Benign prostatic hyperplasia with urinary obstruction and other lower urinary tract symptoms On: :33 Request URINALYSIS, W/ MICRO (01511)Indication: Hypertension On: :33 Request CBC WITH MANUAL DIFF (90013)Indication: Hypertension On: :33 Request METABOLIC PANEL, COMPREHENSIVE (88834)Indication: Hypertension On: :32 Request LIPID PANEL ([id number])Indication: Hypercholesterolemia On: :32 Request CBC WITH MANUAL DIFF ([id number])Indication: Hypertension On: 9-Mce-966681:14 Request METABOLIC PANEL, COMPREHENSIVE ([id number])Indication: Hypertension On: 9-Gmg-807622:14 Request LIPID PANEL ([id number])Indication: Hypercholesterolemia On: :13 Request CBC, PLATELETS & AUT DIFF ([id number])Indication: Anemia, unspecified On: 2-Yuv-521325:38 Request Comments: Repeat 3wks beginning june Renal function Panel ([id number])Indication: Abnormal blood chemistry On: 3-Pfh-147755:35 Request Comments: repeat 3 wks Beginning june Folate ([id number])Indication: Fatigue On: :23 Request VITAMIN B-12 (CYANOCOBALAMIN) ([id number])Indication: Fatigue On: :23 Request TSH ([id number])Indication: Fatigue On: :23 Request SED RATE ERYTHROCYTE ([id number])Indication: Fatigue On: :23 Request RHEUMATOID FACTOR-QUANT (79887)Indication: Fatigue On: :23 Request METABOLIC PANEL, COMPREHENSIVE ([id number])Indication: Fatigue On: 85-Tlo-158940:23 Request C-REACTIVE PROTEIN ([id number])Indication: Fatigue On: :23 Request CBC (AUTO) ([id number])Indication: Fatigue On: :23 Request CHIQUI (ANTINUCLEAR ANTIBODY) ([id number])Indication: Fatigue On: :23 Request BERTHA CULTURE-OTHER ([id number])Indication: Pharyngitis, acute On: :48 Request TSH ([id number])Indication: Dysthymic On: :48 Request PSA (PROSTATE SPECIFIC ANTIGEN) (V76.44)Indication: Benign prostatic hyperplasia with urinary obstruction and other lower urinary tract symptoms On: :48 Request METABOLIC PANEL, COMPREHENSIVE (08528)Indication: Hypertension On: :46 Request LIPID PANEL (62305)Indication: Hypercholesterolemia On: :46 Request CBC WITH MANUAL DIFF ([id number])Indication: Anemia, unspecified On: :46 Request Metabolic Panel, Basic (68663)Indication: Edema On: :44 Request FOLIC ACID SERUM ([id number])Indication: Anemia, unspecified On: :43 Request VITAMIN B-12 (CYANOCOBALAMIN) ([id number])Indication: Anemia, unspecified On: :43 Request RETICULOCYTE COUNT MANUL ([id number])Indication: Anemia, unspecified On: :43 Request LDH (LD) (LACTATE DEHYDROGENASE) ([id number])Indication: Anemia, unspecified On: :43 Request IRON BINDING CAPACITY (TIBC) (82184)Indication: Anemia, unspecified On: :43 Request FERRITIN ([id number])Indication: Anemia, unspecified On: :43 Request IRON ([id number])Indication: Anemia, unspecified On: :43 Request CBC WITH MANUAL DIFF ([id number])Indication: Edema On: :40 Request LIPID PANEL ([id number])Indication: Hypercholesterolemia On: :36 Request URINALYSIS W/O MICRO ([id number])Indication: Hypertension On: :36 Request TSH ([id number])Indication: Hypertension On: :36 Request METABOLIC PANEL, COMPREHENSIVE (09095)Indication: Hypertension On: :36 Request CBC WITH MANUAL DIFF ([id number])Indication: Hypertension On: :36 Request PSA (PROSTATE SPECIFIC ANTIGEN) (V76.44)Indication: Benign prostatic hyperplasia with urinary obstruction and other lower urinary tract symptoms On: :36 Request METABOLIC PANEL, COMPREHENSIVE ([id number])Indication: Hypertension On: :27 Request LIPID PANEL ([id number])Indication: Hypercholesterolemia On: :26 Request HEPATIC FUNCTION PANEL ([id number])Indication: Hypercholesterolemia On: :26 Request HEPATIC FUNCTION PANEL ([id number])Indication: Hypercholesterolemia On: :52 Request LIPID PANEL ([id number])Indication: Hypercholesterolemia On: :52 Request PSA (PROSTATE SPECIFIC ANTIGEN) (V76.44)Indication: Benign prostatic hyperplasia with urinary obstruction and other lower urinary tract symptoms On: :52 Request URINALYSIS W/O MICRO (51901)Indication: Hypertension On: 74-Ytv-702288:23 Request TSH ([id number])Indication: Hypertension On: 15-Vpl-912496:23 Request METABOLIC PANEL, COMPREHENSIVE ([id number])Indication: Hypertension On: 13-Qei-026802:23 Request CBC WITH MANUAL DIFF ([id number])Indication: Hypertension On: 05-Cll-521888:22 Request LIPID PANEL ([id number])Indication: Hypercholesterolemia On: 32-Hvf-634604:17 Request HEPATIC FUNCTION PANEL ([id number])Indication: Hypercholesterolemia On: 42-Pff-291293:17 Request METABOLIC PANEL, COMPREHENSIVE ([id number])Indication: Hypertension On: 23-Nyw-639031:50 Request VITAMIN B-12 (CYANOCOBALAMIN) ([id number])Indication: Fatigue On: :03 Request METABOLIC PANEL, COMPREHENSIVE ([id number])Indication: Fatigue On: :03 Request GLUCOSE TOLERANCE TEST (GTT) 2 hour ([id number])Indication: Fatigue On: :02 Request LIPID PANEL ([id number])Indication: Hypercholesterolemia On: 78-Rwy-03111:10 Request Comments: please send to Dr Shore PSA (PROSTATE SPECIFIC ANTIGEN) ([id number])Indication: Benign prostatic hyperplasia with urinary obstruction and other lower urinary tract symptoms On: :10 Request MICROALBUMIN URINE QUANT ([id number])Indication: Hypertension On: :10 Request URINALYSIS W/O MICRO ([id number])Indication: Hypertension On: :10 Request TSH ([id number])Indication: Dysthymic On: :10 Request METABOLIC PANEL, COMPREHENSIVE ([id number])Indication: Hypertension On: :10 Request CBC WITH MANUAL DIFF ([id number])Indication: Hypertension On: :10 Request CBC WITH MANUAL DIFF ([id number])Indication: Hypertension On: :53 Request METABOLIC PANEL, COMPREHENSIVE (29546)Indication: Hypertension On: :53 Request URINALYSIS W/O MICRO ([id number])Indication: Hypertension On: :53 Request TSH ([id number])Indication: Hypertension On: :53 Request LIPID PANEL ([id number])Indication: Hypercholesterolemia On: 89-Mfw-20925:53 Request Planned Encounters Medical; 3 Week FU - 4 week fu On: 24-May-2018 9:15 [facility] Jazz Rodas DO, DO, Kathleen Medical; 4 Month FU - 4 week fu On: 25-Aug-2018 8:45 [facility] Jazz Rodas DO, DO, Kathleen Planned Procedures VPOR-PJ-PGAG BEHAVIORAL COUNSELING On: 26-Apr-2018 Intent FOR OBESITY, 15 MINUTES (G0447)By: Jazz Rodas DO, DO, Kathleen INTENSIVE BEHAVIORAL THERAPY TO On: 26-Apr-2018 Intent REDUCE CARDIOVASCULAR DISEASE RISK, INDIVIDUAL, AEKB-BX-LAAV, ANNUAL, 15 MINUTES (G0446)By: Jazz Rodas DO, DO, Kathleen Flu Vaccine (Quadrivalent) 51525Na: On: 14-Feb-2018 Intent Jazz Rodas DO, DO, Comments: Lot #[id number]-L dltd, IMDose prefilled syringegiven by: Cammy reviewed and ABN signed Jazz ELECTROCARDIOGRAM, COMPLETE (ECG) On: 27-Oct-2017 Intent ([id number])By: Jazz Rodas DO Comments: nsr no acute chg Jazz Rodas DO PNEUM VAC ADLT/IMUMNOSPR, SBC/INTRM On: 17-Dec-2016 Intent ([id number])By: Jazz Rodas DO Comments: Lot:[id number]:05/19/18Dose:0.5mgRoute:imSite:l armGiven By:YVETTE signed Jazz Rodas DO KSWH-QV-VRDF BEHAVIORAL COUNSELING On: 17-Dec-2016 Intent FOR OBESITY, 15 MINUTES (G0447)By: Jazz Rodas DO, DO, Kathleen INTENSIVE BEHAVIORAL THERAPY TO On: 17-Dec-2016 Intent REDUCE CARDIOVASCULAR DISEASE RISK, INDIVIDUAL, BDMW-XQ-MZES, ANNUAL, 15 MINUTES (G0446)By: Jazz Rodas DO, DO, Kathleen Flu Vaccine (Quadrivalent) 06467Tk: On: 10-Dec-2016 Intent Jazz Rodas DO, DO, Comments: lot: [id number]: 09/26/17ite/route: L jessika, IMamt: 0.5mlVIS and ABN signed when applicableDUONG Desai ELECTROCARDIOGRAM, COMPLETE (ECG) On: 04-Aug-2016 Intent ([id number])By: Jazz Rodas DO Comments: sinus yoko - no acute chg Jazz Rodas DO Venous Doppler - LeftBy: Avis PERERA, On: 23-Apr-2016 Intent Raya Comments: L lower extremity US DOPPLER VEIN OF EXTREMITY On: 21-Apr-2016 Intent ([id number])By: Raya Albarran MD Comments: US doppler right [...] wound centre and Raya Albarran US GROIN ([id number])By: Raya Albarran MD On: 13-Apr-2016 Intent Comments: US soft tissue of left hip, Rule out abcess. Flu Vaccine (Quadrivalent) 75518Lw: On: 12-Dec-2015 Intent Jazz Rodas DO, DO, Comments: lot [id number] 10/08/16- R arm Jazz INTENSIVE BEHAVIORAL THERAPY TO On: 12-Dec-2015 Intent REDUCE CARDIOVASCULAR DISEASE RISK, INDIVIDUAL, OXBH-GI-BSDJ, ANNUAL, 15 MINUTES (G0446)By: Jazz Rodas DO, DO, Kathleen HBPX-BE-MGSV BEHAVIORAL COUNSELING On: 12-Dec-2015 Intent FOR OBESITY, [...] US DOPPLER CAROTID BILATERAL On: 25-Sep-2015 Intent ([id number])By: Jazz Rodas DO, DO, Kathleen Cartoid DopplerBy: Irvin LAURA, On: 30-Jul-2015 Intent Jazz Ballard DO Flu Vaccine (Quadrivalent) 69333Ti: On: 15-Jan-2015 Intent Jazz Rodas DO, DO, Comments: Lot:[id number]:10/09/15Dose:0.5mLRoute:IMSite:L DltdGiven By:YVETTE signed Jazz EKG (69571)By: Jazz Rodas DO On: 13-Jun-2014 Intent Jazz Rodas DO OHUW-RR-XZGG BEHAVIORAL COUNSELING On: 06-Mar-2014 Intent FOR OBESITY, 15 MINUTES (G0447)By: Jazz Rodas DO, DO, Kathleen Prevnar 13 (04939)By: Irvin LAURA, On: 06-Mar-2014 Intent Jazz Ballard DO Comments: lot [id number] 06/2015location L armroute imgiven by - msmithVIS and/or ABN signed Cartoid DopplerBy: Rupinder Encarnacion DO On: 15-Jan-2014 Intent FLU VAC, SPLIT, >3 YEARS, INTRAMUSC On: 15-Jan-2014 Intent (22247)By: Rupinder Encarnacion DO Comments: Lot #:[id number] date:12/2015Amount given:0.5mlRoute: IMSite given: left deltoidGiven by: PRECIOUS Serna ADMINISTRATION OF INFLUENZA VIRUS On: 15-Jan-2014 Intent VACCINE (G0008)By: Rupinder Encarnacion DO FLU VAC, SPLIT, >3 YEARS, INTRAMUSC On: 13-Feb-2013 Intent (08643)By: Rupinder Encarnacion DO Comments: Lot:[id number]:Dose:0.5mLRoute:IMSite:L DltdGiven By:YVETTE bal IMMUNIZ ADMNIN, 1 VAC, SNGL/COMBO On: 13-Feb-2013 Intent ([id number])By: Perla Ruano IMMUNIZ ADMNIN, 1 VAC, SNGL/COMBO On: 08-Feb-2012 Intent ([id number])By: Chanel Alamo CNP FLU VAC, SPLIT, >3 YEARS, INTRAMUSC On: 08-Feb-2012 Intent ([id number])By: Chanel Alamo CNP E DANA (Ankle Brachial Index) On: 14-Jul-2011 Intent ([id number])By: Nieves Masters Comments: at DF desk Spirometry (32395)By: Kael PERERA, On: 01-Jul-2011 Intent Ling Roberts Aerosol Treatment (98050)By: Kael On: 01-Jul-2011 Intent Ling PERERA EKG (04623)By: Ling Scruggs MD On: 01-Jul-2011 Intent DANA (Ankle Brachial Index) On: 21-May-2011 Intent ([id number])By: Rupinder Encarnacion DO Cartoid DopplerBy: Rupinder Encarnacion DO On: 21-May-2011 Intent Comments: august FLU VAC, SPLIT, >3 YEARS, INTRAMUSC On: 10-Feb-2011 Intent (03574)By: Marlys Valencia RN Comments: Lot #: [id number] date: 09/20Amount given: 0.5 mlRoute: IMSite given: left deltoidGiven by: TORITO Gonzales IMMUNIZ ADMNIN, 1 VAC, SNGL/COMBO On: 10-Feb-2011 Intent ([id number])By: Marlys Valencia RN Eprescribed prescriptions (G8553)By: On: 24-Nov-2010 Intent Rupinder Encarnacion DO Echo CompleteBy: Mera Mullen LPN On: 04-Aug-2010 Intent Pulse Oximetry ([id number])By: Blanco LAURA, On: 24-Jul-2010 Intent Rupinder Bal Comments: 96 Bio Z ([id number])By: Rupinder Encarnacion DO On: 24-Jul-2010 Intent Comments: good cardiac output and svr- thoracic fluid ok EKG (30046)By: Rupinder Encarnacion DO On: 24-Jul-2010 Intent Comments: ekg showed normal sinus rhythym, normal axis, no acute st/t wave changes Echo CompleteBy: Rupinder Encarnacion DO On: 24-Jul-2010 Intent DANA (Ankle Brachial Index) On: 24-Jul-2010 Intent ([id number])By: Rupinder Encarnacion DO Cartoid DopplerBy: Rupinder Encarnacion DO On: 24-Jul-2010 Intent Radiology - Chest- PA and LatBy: On: 24-Jul-2010 Intent Rupinder Encarnacion DO Radiology - Chest- PA and LatBy: On: 09-Jul-2010 Intent Irvin LAURA, Jazz Ballard DO Ultrasound - RenalBy: Irvin LAURA, On: 14-May-2010 Intent Jazz Ballard DO Cartoid DopplerBy: Rupinder Encarnacion DO On: 25-Mar-2010 Intent DANA (Ankle Brachial Index) On: 25-Mar-2010 Intent ([id number])By: Rupinder Encarnacion DO IMMUNIZ ADMNIN, 1 VAC, SNGL/COMBO On: 15-Jan-2010 Intent ([id number])By: Marlys Valencia RN Comments: Lot #: [id number] date: mount given: 0.5 mlRoute: IMSite given: left deltoidGiven by: Valeriano Green RN FLU VACCINE NO PRESERV 3 & > On: 15-Jan-2010 Intent ([id number])By: Marlys Valencia RN Cartoid DopplerBy: Rupinder Encarnacion DO On: 26-Nov-2009 Intent Comments: sept TDAP VACCINE >7 IM ([id number])By: On: 22-Sep-2009 Intent Mera Mullen LPN Comments: Lot #[id number]-7/24/12Site-left deltoidgiven by:[facility] Holter Monitor 24 hrsBy: Walker LOU, On: 21-Apr-2009 Intent Chanel Hickey ELECTROCARDIOGRAM, COMPLETE (ECG) On: 21-Apr-2009 Intent ([id number])By: Chanel Alamo CNP FLU VAC, SPLIT, >3 YEARS, INTRAMUSC On: 07-Jan-2009 Intent ([id number])By: Emili Mullins Comments: Lot #:[id number] date:mount given:0.5mlRoute: IMSite given:left deltGiven by: PRECIOUS Serna IMMUNIZ ADMNIN, 1 VAC, SNGL/COMBO On: 07-Jan-2009 Intent ([id number])By: Emili Mullins DANA (Ankle Brachial Index) On: 25-Nov-2008 Intent (56241)By: Uma Altamirano Comments: done>Wf. pt aware. normal findings on both sides. DANA (Ankle Brachial Index) On: 01-Oct-2008 Intent ([id number])By: Rupinder Encarnacion DO Cartoid DopplerBy: Rupinder Encarnacion DO On: 01-Oct-2008 Intent Comments: sept Pulse Oximetry (02630)By: Walker LOU, On: 03-Jul-2008 Intent Chanel Hickey Comments: done BC Aerosol Treatment (63733)By: Walker On: 03-Jul-2008 Intent Chanel LOU Comments: done BC FLU VAC, SPLIT, >3 YEARS, INTRAMUSC On: 15-Mar-2008 Intent (51158)By: Alicia Allen ADMINISTRATION OF INFLUENZA VIRUS On: 15-Mar-2008 Intent VACCINE (G0008)By: Alicia Allen Comments: inj given no complicationslot:[id number]:10/08/08site left deltoddose:0.5mlkathryn EKG (84445)By: Rupinder Encarnacion DO On: 27-Dec-2007 Intent Comments: ekg- with sinus with lvh - left axisd deviation Cartoid DopplerBy: Rupinder Encarnacion DO On: 27-Dec-2007 Intent DANA (Ankle Brachial Index) On: 23-Aug-2007 Intent (56333)By: Xiao Busby DANA (Ankle Brachial Index) On: 08-Aug-2007 Intent (70157)By: Rupinder Encarnacion DO DANA (Ankle Brachial Index) On: 02-May-2007 Intent (90707)By: Rupinder Encarnacion DO Flu Vaccine, Split IM (62443)By: On: 24-Jan-2007 Intent Rupinder Encarnacion DO Comments: given o.5cc im in right deltoid lot#[id number] exp.10/09/07-aw Pneumovax (65586)By: Rupinder Encarnacion DO On: 24-Jan-2007 Intent A Comments: given 0.5cc in right deltoid lot#[id number] exp. 02/20/08-aw Overnight Pulse Ox(65632)By: Kehinde On: 21-Dec-2006 Intent Xiao Echo CompleteBy: Rupinder Encarnacion DO On: 06-Dec-2006 Intent Overnight Pulse OX (10188)By: Blanco On: 06-Dec-2006 Intent Rupinder LAURA EKG (14786)By: Narciso NAIDU, Peg On: 23-Jun-2006 Intent Comments: needed to be done for a preop which is scheduled the end of the month with dr. romero DANA (Ankle Brachial Index) On: 15-Jun-2006 Intent (46988)By: Milady Jay LPN DANA (Ankle Brachial Index) On: 01-Jun-2006 Intent (99985)By: Rupinder Encarnacion DO Comments: see Mila- these needs precerted as the insurance didnt pay last time- I discussed with her DANA (Ankle Brachial Index) On: 01-Mar-2006 Intent (81768)By: Rupinder Encarnacion DO Planned Medications Vitamin B-12 [...] Impaired fasting glucose Encounters Office Visit On: 26-Apr-2018 9:50 Encounter Reason: [...] The patient does have durable power of traffic law attorney and living will. 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 care are civil designer and outside deliverer. Encounter Diagnosis: Impaired fasting glucose (790.21), Nonsmoker, [...] The patient does have durable power of traffic law attorney and living will. The patient has noticed dropping activities and interests, having problems with memory than others, la ck of energy and thinking most people are better off than them. 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 care are civil designer and gas brazer.Encounter Diagnosis: BMI 38.0-38.9,adult, Nonsmoker, Annual Medicare Physical [...] patient does not have durable power of traffic law attorney. The patient has noticed lack of energy and thinking most people are better off than them. 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 care are civil designer and other:.Encounter Diagnosis: Annual Medicare Phyiscal WITHOUT [...] The patient does have durable power of traffic law attorney and living will. The patient has noticed thinking most people are better off than t hem. 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 care are civil designer (DR. Maria) and other: (Pain Management- Dr. [...] a day for 2 weeks- and the civil designer didnt feel he needed to increase meds [...] back. Pt is seeing Dr. Blake in [place] for this and currently getting injections and [...] tired with work but does feel sleepy- or End: 24-Jan-2007 11:15 s mood is ok [...] Internal Medicine End: 24-Feb-2006 14:24 Payers MedicareHumana/Supplement [facility] Deutsch; valeriano guarantor
--- OUTSIDE RECORDS SUMMARY | 2018-07-01 19:16 | XMS RPT_ITS | Continuity of Care Document ---
:1950 Author Organization [facility] Address [address] [facility] [address] [place] [address] Phone Care Team Providers Name Role Phone Jazz Rodas DO Unavailable [facility] Unavailable [facility], [facility] Unavailable Long COMPUTATIONAL MATHEMATICIAN, Sharonda L Unavailable Unavailable Gravius, Laila Unavailable Unavailable Slarb COMPUTATIONAL MATHEMATICIAN, Elle Unavailable Unavailable Messenger, COMPUTATIONAL MATHEMATICIAN Darlene Unavailable Unavailable Manchak, Giselle Unavailable Unavailable [...] DO, DO, Kathleen Start : 17-Apr-2018 Active Fenofibrate 54 MG Oral Tablet 1 [...] : 29-Sep-2015 End : 26-Nov-2015 Inactive ZOSTAVAX, 95275TSC/0.65ML (Subcutaneous Solution Reconstituted) 1 For Solution dose [...] Visit Report Result: Comments: See Note; NOTES: [facility] [address] [place] [address] OFFICE VISIT Date of Service: 02/28/18 MR#: [id number] Acct: [id number] Name: LETHA DEUTSCH Rep #: [id number] : 1950 Provider: Hyun Iglesias Age/Sex: 67/M [place] [facility] Status: Signed HPI HPI Chief Complaint: [...] Visit Reasons: PER PK, PRIOR TO SURGERY Salesforce Administrator Required: No Accompanied by: None Is patient [...] . Assessment AND Plan 1. Atherosclerosis of northway coronary artery of northway heart without angina pectoris I25.10 CABG 03/20/1997 BETHEA to LAD, Reverse SVG to CX and to DX, LHC 07/21/2011 Plan - LEDA Zarate Stable, from [...] Code Off vis,est,level 4 Diagnoses Atherosclerosis of northway coronary artery of northway heart without angina pectoris I25.10 [place] vs. transplanted heart: northway heart Essential hypertension I10 Hypertension type: essential hypertension Pure hypercholesterolemia E78.00; E78.0 Hyperlipidemia type: pure hypercholesterolemia Occlusion and stenosis of left carotid artery I65.22 PAD (peripheral artery disease) I73.9 Atrial fibr illation and flutter I48.91; I48.92 Renal disease N28.9 Coding Level of Care Code Off vis,est,level 4 Diagnoses Atherosclerosis of northway coronary artery of northway heart without angina pectoris I25.1 0 [place] vs. transplanted heart: northway heart Essential hypertension I10 Hypertension type: essential hypertension Pure hypercholesterolemia E78.00; E78.0 Hyperlipidemia type: pure hypercholesterolemia Occlusion and stenosis of left carotid artery I65.22 PAD (peripheral artery disease) I73.9 Atrial fibrillation and flutter I48.91; I48.92 Renal disease N28.9 02/28/18 1747 <Electronically sig catrina by Hyun TOMPKINS> Date Hyun TOMPKINS 02/28/18 611<Electronically signed by Babatunde Maria MD> Yousuf Mabry ignature: Date (if applicable) Babatunde Maria MD CC: Jazzfilipe Rodas 21-Feb-2018 Office Visit Report Result: Comments: See Note; NOTES: [facility] [address] [address] OFFICE VISIT Date of Service: 02/20/18 MR#: [id number] Acct: [id number] Patient: LETHA DEUTSCH Rep #: [id number] : 1950 Provider: Babatunde Maria MD Age/Sex: 67/M [place] [facility] Status: Signed Intake Intake Visit Reasons: ROSE [...] f/u in 1-2 weeks. Patient agrees. 02/21/18 1557 <Electronically signed by Hyun TOMPKINS> Date Hyun Bal Cosigner Signature: Date (if applicable) CC: 16-Feb-2018 Emergency Department Summary Result: Comments: See Note; NOTES: [facility] Medical Records Department [address] [place] [address] Emergency Department Summary 02/16/18 1723 MR#: [id number] Acct: [id number] Name: LETHA DEUTSCH Rep #: [id number] : 1950 67 From: Charlie Lyles MD [...] inju ry This note was generated with Radio[employer] dictation software. It may contain incorrect words, spelling, and punctuation that were not noted in review of the chart prior to signing ED Disposition - Pl an for ED Patient: Chief Complaint: Abn Labs Referrals: Jazz Rodas, [Primary Care Provider] - What to do if you have Problems For any increased pain, shortness of breath, bleeding, nausea or vomiting, chest pain, or any unexpected problems, contact your Primary Care Provider. Call [facility] ([phone]) or report to the closest Emergency Room. Call 911 if necessary. 02/16/18 184 5 <Electronically signed by Charlie Lyles MD> Date Charlie Lyles MD Cosigner Signature (If Indicated): Date CC: Jazz Rodas DO -Nov-2017 Carotid Duplex Ultrasound Result: Comments: See Note; NOTES: [facility] Cardiovascular Services [address] [place] [address] Carotid Duplex Ultrasound 11/09/17 1247 MR#: [id number] Acct: [id number] Name: RUBY LIEBERMANLETHA Ruperto Rep #: [id number] : 1950 67 From: Kaiser Awan MD [...] the left vertebral artery. Procedure Carotid Duplex 83427. The study was technically difficult. Exam performed [...] Dictated: 11/09/17 1247 Date Transcribed: 11/09/17 1516 Coin Machine Assembler: Signed 27-Oct-2017 Cardiology Visit Report Result: Comments: See Note; NOTES: [facility] [address] [place], [place] [address]e. [address] [place] [address] OFFICE VISIT Date of Service: 10/27/17 MR#: [id number] Acct: [id number] Name: LETHA DEUTSCH Rep #: [id number] : 1950 Provider: Babatunde Maria MD Age/Sex: 66/M Location[place] [facility] Status: Signed HPI HPI Details: LETHA [...] brachial Intake Visit Reasons: 6 M FU Salesforce Administrator Required: No Accompanied by: none Is patient [...] carotid artery (Chronic) Atherosclerotic heart disease of northway coronary artery without angina pectoris (Chronic) Obesity [...] Atherosclerosis of coronary artery bypass graft of northway heart without angina pectoris I25.810 Plan He [...] Detail 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 transplanted heart: northway heart Essential hypertension I10 Hypertension type: essential hypertension Atrial fibrillation and flutter I48. 91; I48.92 Occlusion and stenosis of left carotid artery I65.22 Pure hypercholesterolemia E78.00; E78.0 Hyperlipidemia type: pure hypercholesterolemia Coding Level of Care Code Off vis,est,level 4 Di agnoses Atherosclerosis of coronary artery bypass graft of northway heart without angina pectoris I25.810 [place] vs. transplanted heart: northway heart Essential hypertension I10 Hypertension type: essentia l hypertension Atrial fibrillation and flutter I48.91; I48.92 Occlusion and stenosis of left carotid artery I65.22 Pure hypercholesterolemia E78.00; E78.0 Hyperlipidemia type: pure hypercholesterolemia 10/27/17 0935 <Electronically signed by Babatunde Maria MD> Date Babatunde Maria MD Cosigner Signature: Date (if applicable) CC: Jazz Rodas DO 22-Oct-2017 Spine Lumbar (Routine) Result: Comments: See Note; NOTES: [facility] Imaging Services [address] [place] [address] Spine Lumbar (Routine) MR#: [id number] Acct: [id number] Name: LETHA DEUTSCH Rep #: [id number] : 1950 M 66 From: Roberto Lunsford MD PCP: Jazz Rodas DO Status: REG CLI Study: Spine Lumbar (Routine) Date of Exam: 10/22/17 Exam# [id number] Ordering Dr: Brooklynn Ryan CATERING ATTENDANT-C STUDY: MRI L UMBAR SPINE WITHOUT CONTRAST [...] , CC: Brooklynn Ryan; Jazz Rodas DO Coin Machine Assembler: Signed 14-Apr-2017 Cardiology Visit Report Result: Comments: See Note; NOTES: [facility] [address] [place] [address] OFFICE VISIT Date of Service: 04/14/17 MR#: [id number] Acct: [id number] Name: LETHA DEUTSCH Rep #: [id number] : 1950 Provider: Hyun Iglesias Age/Sex: 66/M Location[place] [facility] [place] Status: Signed HPI 6 M FU: Details: LETHA DEUTSCH, is a 66 M who presents to the office today for trey wynn for a cardiovascular follow-up. He has [...] Lt brachial Intake Visit Reasons: 6 M Salesforce Administrator Required: No Accompanied by: None Is patient [...] carotid artery (Chronic) Atherosclerotic heart disease of northway coronary artery without angina pectoris (Chronic) HTN [...] Atherosclerosis of coronary artery bypass graft of northway heart without angina pectoris I25.810; I25.810; I25.810 [...] prior to saving. 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) 1018 <Electronically signed by Hyun TOMPKINS> Date Hyun TOMPKINS 04/14/17 1020<Electronically signed by Babatunde Maria MD> Cosigner Signature: Date (if applicable) Babatunde Maria MD CC: Jazz Rodas DO 23-Jun-2016 Brain/Head without Contrast Result: Comments: See Note; NOTES: [facility] Imaging Services [address] [place] [address] Verdana 4d Brain/Head without Contrast MR#: [id number] Acct: [id number] Name: [facility] Rep #: [id number] : 1950 M 65 From: Chago Loera MD PCP: Jazz Rodas DO Status: [facility] Study: Brain/Head without Contrast Date of Exam: 06/23/16 Exam# [id number] Ordering Dr: Isiah Gloria MD STUDY: CT [...] 06/23 at 20:16 EDT , Service support [phone], N.B. : The above information has been verbally conveyed by Chago Loera MD to dr gloria, Referring Physician, on 20:19:35 (ET). CC: Emili Gloria MD; Jazz Rodas DO Coin Machine Assembler: Signed 23-Jun-2016 Chest 1 View Result: Comments: See Note; NOTES: [facility] Imaging Services [address] [place] [address] Verdana 4d Chest 1 View MR#: [id number] Acct: [id number] Name: LETHA DEUTSCH Rep #: [id number] : 1950 M 65 From: Chago Loera MD PCP: Jazz Rodas DO Status: REG ER Study: Chest 1 View Date of Exam: 06/23/16 Exam# [id number] Ordering Dr: Emili Gloria MD STUDY: X-RAY [...] MD at 20:28 EDT , Service support [phone], CC: Emili Gloria MD; Jazz Rodas DO Coin Machine Assembler: Signed 09-Jun-2016 Pulmonary Function Report Comp Result: Comments: See Note; NOTES: [facility] Pulmonary Services/Neurology [address] [place] [address] Pulmonary Function Test (Comp) MR#: [id number] Acct: [id number] Name: LETHA DEUTSCH Rep #: [id number] : 1950 65 From: Rodolfo Palacios DO Referring Dr: Rodolfo Palacios D.O. Status: REG CLI Ordering Dr: Rodolfo Palacios DO Date: 06/08/16 Location: [facility] Sex: M C DATE OF SERVICE: [...] DO Karen Gurrola C: T: NTS JOB: [id number] 06/09/16 1357 &# 60;Electronically signed by Rodolfo Palacios DO> Date Rodolfo Palacios DO CC: Rodolfo Palacios D.O.; Jazz Rodas DO Date Dictated: 06/09/16829 Date Transcribed: 06/09/16829 Coin Machine Assembler: Signed 07-Jun-2016 Chest PA and Lateral Result: Comments: See Note; NOTES: [facility] Imaging Services [address] [place] [address] Verdana 4d Chest PA and Lateral MR#: [id number] Acct: [id number] Name: LETHA DEUTSCH p #: [id number] : 1950 M 65 From: Real Miller MD PCP: Jazz Rodas DO Status: REG CLI Study: Chest PA and Lateral Date of Exam: 06/07/16 Exam# [id number] Ordering Dr: Hyun Iglesias PA STUDY: X-RAY [...] MD at 16:15 EST , Service support [phone], CC: Jazz Rodas DO; Hyun Iglesias Coin Machine Assembler: Signed 01-Jun-2016 Carotid Duplex Ultrasound Result: Comments: See Note; NOTES: [facility] Cardiovascular Services [address] [place] [address] Carotid Duplex Ultrasound 06/01/16 1000 MR#: [id number] Acct: [id number] Name: RUBY LIEBERMANLETHA Hickey Rep #: [id number] : 1950 65 From: Cassi Rousseau MD [...] the left vertebral artery. Procedure Carotid Duplex 11285. Technically difficult due to body habitus. Exam [...] Dictated: 06/01/16 1000 Date Transcribed: 06/01/16 1434 Coin Machine Assembler: Signed 01-Jun-2016 Echocardiogram Complete Result: Comments: See Note; NOTES: [facility] Cardiovascular Services [address] [place] [address] Echo Complete 06/01/16 0909 MR#: [id number] Acct: [id number] Name: LETHA DEUTSCH Rep #: [id number] : 1950 65 From: Babatunde Maria MD Attending Dr: Rodolfo Palacios D.O. Status: REG CLI Ordering Dr: Rodolfo Palacios DO Date: 06/01/16 Location: [facility] Sex: M C Admitted: Reason [...] By: Florencio Nichols RCS 06/01/16 1251 Date Baabtunde Maria MD CC: Rodolfo Palacios D.O.; Jazz Rodas DO Date Dictated: 06/01/1609 Date Transcribed: 06/01/161250 Coin Machine Assembler: Signed 26-May-2016 6 Minute Walk Test Result: Comments: See Note; NOTES: [facility] Pulmonary Services/Neurology [address] [place] [address] MR#: [id number] Acct: [id number] Name: LETHA DEUTSCH Rep #: [id number] : 1950 65 From: Rodolfo Palacios DO Referring Dr: Rodolfo Palacios D.O. Date: Ordering Dr: Ama Jones Location: PSN PSN 6 Minute Walk Test - 6 Minute Walk Test 6 Minute Walk Test: 6 Minute Walk Test PSN :6-Minute Walk Test Start: 05/25/16 12:52 Freq: Status: Active Document 05/25/16 12:52 LORENA (Rec: 05/25/16 12:54 LORENA [id number]) 6 Minute Walk Test Date Performed 05/25/16 [...] CC: Date Dictated: 05/26/16946 Date Transcribed: 05/26/16946 Coin Machine Assembler: Rodolfo Palacios DO Signed 21-Apr-2016 Venous Duplex Lower Extremity Result: Comments: See Note; NOTES: [facility] Cardiovascular Services [address] [place] [address] Venous Duplex US, Unilateral 04/21/16 1619 MR#: [id number] Acct: [id number] Name: LETHA ARTHUR Rep #: [id number] : 1950 65 From: Kwaku Ahmadi MD [...] Dictated: 04/21/16 1619 Date Transcribed: 04/21/16 1827 Coin Machine Assembler: Signed 16-Apr-2016 Pelvis WITH IV Contrast Result: Comments: See Note; NOTES: [facility] Imaging Services [address] [place] [address] Verdana 4d Pelvis WITH IV Contrast MR#: [id number] Acct: [id number] Name: LETHA DEUTSCH Rep #: [id number] : 1950 M 65 From: Gurpreet De Anda DO PCP: Jazz Rodas DO Status: REG CLI Study: Pelvis WITH IV Contrast Date of Exam: 04/16/16 Exam# [id number] Ordering Dr: Jazz Rodas STUDY: CT PELVIS [...] De Anda DO at 9:03 EST Tel [phone], Service support [phone], CC: Ivory Rodas DO Coin Machine Assembler: Signed 14-Apr-2016 Other BP Soft Tissue Result: Comments: See Note; NOTES: [facility] Imaging Services [address] [place] [address] Verdana 4d Other BP Soft Tissue MR#: [id number] Acct: [id number] Name: LETHA DEUTSCH p #: [id number] : 1950 M 65 From: Gurpreet De Anda DO PCP: Jazz Rodas DO Status: REG CLI Study: Other BP Soft Tissue Date of Exam: 04/14/16 Exam# [id number] Ordering Dr: Raya Albarran STUDY: GALINDO PERFICIAL [...] Anda DO 27/04/03 at 12:37 EST Tel [phone], Service support [phone], CC: Jazz Rodas DO; Raya Albarran Coin Machine Assembler: Signed 18-Feb-2016 12 Lead Electrocardiogram Result: Comments: See Note; NOTES: [facility] Cardiovascular Services [address] [place] [address] 12 Lead EKG 02/16/16 1238 MR#: [id number] Acct: [id number] Name: LETHA DEUTSCH Rep #: [id number] : 1950 65 From: Johnie Montaño MD Attending Dr: Babatunde Maria MD Status: [facility] Ordering Dr: Babatunde Maria MD Date: 02/16/16 [...] ECG Confirmed by SCOTT PERERA, JOHNIE ([id number]), desk editor BECK DOSS ([id number]) on 02/18/2016 2:53:30 PM Referred By: [facility] Confirmed By:JOHNIE MONTAÑO MD 02/18/16 1453 Date Johnie Montaño MD CC: Jazz Rodas DO Date Dictated: 02/16/16 1238 Date Transcribed: 02/16/16 1238 Coin Machine Assembler: Signed 17-Feb-2016 Operative Report Result: Comments: See Note; NOTES: [facility] Medical Records Department [address] [place] [address] Operative Report MR#: [id number] Acct: [id number] Name: LETHA DEUTSCH Rep #: [id number] : 1950 65 From: Rodolfo Palacios DO [...] issues including a triple bypass surgery at [facility] in 1996 followed by an ablation procedure [...] C: Referring Provider . T: RACHAEL JOB: [id number] 02/17/16 1243 <Electronically signed by Rodolfo Palacios DO> Date ____ Rodolfo Palacios DO Cosigner Signature (If Indicated): Date CC: Rodolfo Palacios D.O.; Jazz Puentes te Dictated: 02/16/161258 Date Transcribed: 02/16/161258 Coin Machine Assembler: Signed 17-Feb-2016 Operative Report Result: Comments: See Note; NOTES: [facility] Medical Records Department [address] [place] [address] Operative Report MR#: [id number] Acct: [id number] Name: LETHA DEUTSCH Rep #: [id number] : 1950 65 From: Babatunde Maria MD PCP: Jazz Rodas DO Status: [facility] DATE OF SERVICE: PROCEDURE: DC cardioversion. INDICATIONS: [...] Babatunde Maria MD T: RACHAEL JOB : [id number] 02/17/16 0833 <Electronically signed by Babatunde Maria MD> Date Babatunde Maria MD Cosigner Signature (If Indicated): Date __ CC: Babatunde Maria MD; Jazz Rodas DO Date Dictated: 02/16/16 1326 Date Transcribed: 02/16/161325 Coin Machine Assembler: Signed 01-Jan-2016 Operative Report Result: Comments: See Note; NOTES: [facility] Medical Records Department [address] [place] [address] Operative Report MR#: [id number] Acct: [id number] Name: LETHA DEUTSCH Rep #: [id number] : 1950 65 From: Babatunde Maria MD PCP: Jazz Rodas DO Status: [facility] [place] [place] DATE OF SERVICE: PROCEDURE: DC cardioversion. INDICATION: [...] followup. Babatunde Maria MD T: NTS JOB: [id number] 01/01/16 0813 <Electronically signed by Babatunde Maria MD> Date Babatunde Maria MD Cosigner Signature (If Indicated): Date CC: Babatunde Maria MD; Jazz Rodas DO Date Dictated: 12/29/15 114 Date Transcribed: 12/29/15 114 Coin Machine Assembler: Signed 31-Dec-2015 Consultation Result: Comments: See Note; NOTES: [facility] Medical Records Department [address] [place] [address] Consultation MR#: [id number] Acct: [id number] Name: LETHA DEUTSCH Rep #: [id number] : 1950 65 From: Zia Aldrich MD PCP: Jazz Rodas DO Status: [facility] [place] [place] DATE OF SERVICE: 12/29/2015 BRIEF HISTORY OF PRESENT ILLNESS: The patient is a 65-year-old male, cu rrently under the care of Dr. Maria, who presents for elective KAYLEE and cardioversion secondary to atrial fibrillation. The patient does have a long history of atrial fibrillation and cardiac issues incl uding a triple bypass at [facility] in 1996, atrial ablation in 2011 at [...] Babatunde Maria MD Primary Care Physician T: [facility] JOB: [id number] 12/31/15 0622 <Electronically signed by Zia Aldrich MD> Date Zia bond MD Cosigner Signature (If Indicated): Date CC: Zia Aldrich MD; Babatunde Maria MD; Jazz Rodas DO Date Dictated: 12/29/151436 Date Transcri bed: 12/29/151436 Coin Machine Assembler: Signed 29-Dec-2015 Echo Transesophageal (KAYLEE) Result: Comments: See Note; NOTES: [facility] Cardiovascular Services [address] [place] [address] Echo Transesophageal (KAYLEE) 12/29/15 1045 MR#: [id number] Acct: [id number] Name: OPAL LANDAVERDEERLETHA Ruperto Rep #: [id number] : 1950 65 From: Babatunde Maria MD Attending Dr: Babatunde Maria MD Status: REG KSC Ordering Dr: Babatunde Maria MD Date: 12/29/15 Location: [facility] Sex: M C Admitted: R marian For Study: A. fib Medication KAYLEE probe passed without difficulty. Cetacaine Topical [place] given X3 orally. Versed 2 mg given [...] Dictated: 12/29/15 1045 Date Transcribed: 12/29/15 1237 Coin Machine Assembler: Signed 20-Nov-2015 OT D/C Summary Result: Comments: See Note; NOTES: [facility] Occupational Therapy [facility] [address] [place] [address] Fax REHABILITATION SERVICES ДМИТРИЙ GARDINER SUMMARY MR#: [id number] Acct: [id number] Name: LETHA DEUTSCH Rep #: [id number] : 1950 65 From: Linda Blunt Referring [...] of their discharge status. - Objective Objective/Function: Health Navigator: R: 95# L: 80#. Lat Pinch: R:26# [...] the izquierdo to regaining sensation and strength. Health Navigator: R: 95# L: 80#. Lat Pinch: R:26# L:10#. Tripod Pinch: R:18# L:8#. Gram Abduction: R:375; L: 200. Adduction: R: 800; L:600. Monofilaments: L Th:3.84. L IF:3.22. L MF:3.22. L RF:3.22/4.08. L LF:4.08. In mariano nd manipulation (palm to fingers and fingers to palm) appear normal. If there are questions or concerns regarding this patient's occupational therapy, please fell free to call me at [phone]. Thank you for the referral of this patient. Sincerely, Linda Blunt <Electronically signed by Linda Blunt > 11/20/15 1518 CC: Jazz Rodas DO; Jorge Luis Kerr MD MG Signed 20-Nov-2015 OT General Evaluation Result: Comments: See Note; NOTES: [facility] Occupational Therapy [facility] [place] [address] Fax REHABILITATION SERVICES IN ITIAL EVALUATION MR#: [id number] Acct: [id number] Name: LETHA DEUTSCH Rep #: [id number] : 1950 65 From: Linda Blunt Referring Dr.: Jorge Luis Kerr MD Status: REG RCR Insurance: MEDICARE PA RT A B Eval Date: [employer] Patient's Visit Information LETHA DEUTSCH is a [...] trans position on August 12, 2015 at [place]. Pt. experienced sudden numbness and falling asleep" of L elbow and hand before the surgery. Pt. is retired and worked at [employer] for 34 years. 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 Pt. is R-handed [...] Elbow: B 5/5 Wrist: R:5/5; L: 4+/5 Health Navigator: R:85# L:80# Lateral Pinch: R:22# L:12# Tripod [...] to be FAXED BACK to us at [phone] for Med icare purposes. Please let me know if there are questions or concerns regarding this plan of care. Physician Signature: Date: <E lectronically signed by Linda Blunt > 11/20/15 0080 CC: Jazz Rodas DO; Jorge Luis Kerr MD MG Signed For Medicare only, by signing this I certify the plan of ca re. Physicians Signature Date 06-Nov-2015 CTA Head W/WO Contrast Result: Comments: See Note; NOTES: [facility] Imaging Services [address] [place] [address] Verdana 4d CTA Head W/WO Contrast MR#: [id number] Acct: [id number] Name: LETHA MASON Rep #: [id number] : 1950 M 65 From: Cecilio Castillo PCP: Jazz Rodas DO Status: REG CLI Study: CTA Head W/WO Contrast Date of Exam: 11/06/15 Exam# [id number] Ordering Dr: Linnea Johnson CATERING ATTENDANTMary Kay STUDY: CTA OF THE BRAIN REASON [...] There is no demonstrated aneurysm of the [place]. There is no demonstrated abnormality of the visualized brain. 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 Mi ld atherosclerotic plaque of the bilateral intracranial carotid arteries. Electronically Signed: Cecilio Castillo MD at 11:58 EDT Tel , Service support [phone], Fax CC: Linnea Hall; Jazz Rodas DO Coin Machine Assembler: Signed 06-Nov-2015 CTA Head W/WO Contrast Result: Comments: See Note; NOTES: [facility] Imaging Services [address] [place] [address] Verdana 4d CTA Head W/WO Contrast MR#: [id number] Acct: [id number] Name: LETHA MASON Rep #: [id number] : 1950 M 65 From: Cecilio Castillo PCP: Jazz Rodas DO Status: REG CLI Study: CTA Head W/WO Contrast Date of Exam: 11/06/15 Exam# [id number] Ordering Dr: Linnea Johnson CATERING ATTENDANT-C STUDY: CTA OF THE BRAIN REASON FOR [...] There is no demonstrated aneurysm of the [place]. There is no demonstrated abnormality of the visualized brain. CC: Linnea Hall; Jazz Rodas DO Coin Machine Assembler: Signed 06-Nov-2015 CTA Neck W/WO Contrast Result: Comments: See Note; NOTES: [facility] Imaging Services [address] [place] [address] Verdana 4d CTA Neck W/WO Contrast MR#: [id number] Acct: [id number] Name: LETHA MASON Rep #: [id number] : 1950 M 65 From: Cecilio Castillo PCP: Jazz Rodas DO Status: REG CLI Study: CTA Neck W/WO Contrast Date of Exam: 11/06/15 Exam# [id number] Ordering Dr: Linnea Johnson CATERING ATTENDANT-C STUDY: CTA NECK WITH CONTRAST REASON FOR [...] at 11:53 EDT Tel , Service support [phone], CC: Linnea Hall; Jazz Rodas DO Coin Machine Assembler: Signed 06-Nov-2015 CTA Neck W/WO Contrast Result: Comments: See Note; NOTES: [facility] [facility] [address] [place] [address]81 Verdana 4d CTA Neck W/WO Contrast MR#: [id number] Acct: [id number] Name: RUBY MIOLETHA Rep #: [id number] : 1950 65 From: Cecilio Castillo PCP: Jazz Rodas DO Status: REG CLI Study: CTA Neck W/WO Contrast Date of Exam: 11/06/15 Exam# [id number] Ordering Dr: Linnea Johnson CATERING ATTENDANT-C STUDY: CTA NECK WITH CONTRAST REASON FOR [...] artery. CC: Linnea Hall; Jazz Rodas DO Coin Machine Assembler: Signed 30-Sep-2015 Brain W/WO Contrast Result: Comments: See Note; NOTES: [facility] Services [address] [place] [address]4837 Verdana 4d Brain W/WO Contrast MR#: [id number] Acct: [id number] Name: DALIA JHALETHA Ruperto Rep #: [id number] : 1950 M 64 From: Cierra Doss MD PCP: Jazz Rodas DO Status: REG CLI Study: Brain W/WO Contrast Date of Exam: 09/30/15 Exam# [id number] Ordering Dr: Prakash Mccarty MD STUDY: MRI [...] MD at 13:08 EDT , Service support [phone], CC: Isaac Mccarty MD; Jazz Rodas DO Coin Machine Assembler: Signed 28-Sep-2015 Carotid Duplex Ultrasound Result: Comments: See Note; NOTES: [facility] Cardiovascular Services [address] [place] [address] Carotid Duplex Ultrasound 09/25/15 1411 MR#: [id number] Acct: [id number] Name: LETHA DEUTSCH Rep #: [id number] : 1950 64 From: Rian Levi MD [...] the left vertebral artery. Procedure Carotid Duplex 18976. Techncially difficult due to body habitus. Exam performed in department. Interpretation Summary Mild (<50%) stenosis right extracranial internal carotid. Mild (<50%) stenosis l eft extracranial internal carotid. Flow within the vertebral arteries is antegrade bilaterally. Ordering Physician: Jazz Rodas Performed By: Karon Harris RVT 09/28/152157 Date Rian Levi MD CC: Jazz Rodas DO Date Dictated: 09/25/151 Date Transcribed: 09/28/152157 Coin Machine Assembler: Signed 25-Sep-2015 Brain/Head without Contrast Result: Comments: See Note; NOTES: [facility] Services [address] [place] [address]997 Verdana 4d Brain/Head without Contrast MR#: [id number] Acct: [id number] Name: LETHA DEUTSCH Rep #: [id number] : 1950 M 64 From: Juli Klein MD PCP: Jazz Rodas DO Status: REG CLI Study: Brain/Head without Contrast Date of Exam: 09/25/15 Exam# [id number] Ordering Dr: Jazz Rodas DO STUDY: CT [...] at 14:19 EDT Tel cf, Service support [phone], CC: Jazz Rodas DO Coin Machine Assembler: Signed 17-Sep-2015 Operative Report Result: Comments: See Note; NOTES: [facility] Medical Records Department [address] [place] [address] Operative Report MR#: [id number] Acct: [id number] Name: [facility] Rep #: [id number] : 1950 64 From: Babatunde Maria MD [...] office. Babatunde Maria MD T: NTS JOB: [id number] 09/17/15 08 <Electronically sig catrina by Babatunde Maria MD> Date Babatunde Maria MD Cosigner Signature (If Indicated): Date CC: Babatunde Maria MD; Jazz Rodas DO Date Dictated: 09/16/15 1100 Date Transcribed: 09/16/15 1100 Coin Machine Assembler: Signed 17-Sep-2015 Operative Report Result: Comments: See Note; NOTES: [facility] Medical Records Department [address] [place] [address] Operative Report MR#: [id number] Acct: [id number] Name: [facility] Rep #: [id number] : 1950 64 From: Zia Aldrich MD [...] MD Primary Care Physicia n . T: [facility] JOB: [id number] 09/17/15 0608 <Electronically signed by Zia Aldrich MD> Date Zia Aldrich MD Cosigner Signature (If I ndicated): Date CC: Zia Aldrich MD; Jazz Rodas DO Date Dictated: 09/16/155 Date Transcribed: 09/16/151114 Coin Machine Assembler: Signed 09-Sep-2015 Chest PA and Lateral Result: Comments: See Note; NOTES: [facility] Services [address] [place] [address] Verdana 4d Chest PA and Lateral MR#: [id number] Acct: [id number] Name: LETHA CHAUDHARI Rep #: [id number] : 1950 M 64 From: Osvaldo Manuel MD PCP: Jazz Rodas DO Status: REG CLI Study: Chest PA and Lateral Date of Exam: 09/09/15 Exam# [id number] Ordering Dr: Hyun Iglesias STUDY: X-RAY CHEST [...] Osvaldo Manuel MD at 10:04 EDT Tel [phone], Service support [phone], RAD/Chest PA and Lateral IMPRESSION: Hyperin flation. No acute abnormality is seen. Electronically Signed: Osvaldo Manuel MD at 10:04 EDT Tel [phone], Service support [phone], CC: Jazz reynolds DO; Hyun Iglesias Coin Machine Assembler: Signed 07-Aug-2015 ELECTROCARDIOGRAM, COMPLETE (ECG) (95254) Comments: afib controlled rate 97 - Result: [MEASUREMENTS ANALYSIS] Date of Test: 08/07/2015 08:26:34; Heart Rate: 97; MD Interval: 0; QRS: 104; QT Interval: 344; Corrected QT Interval (QTc): 408; P Wave [place]: 1; QRS Wave [place]: -31; T Wave [place]: 1; Blood Pressure: 138/78 [ECG DIAGNOSTIC STATEMENTS] Date of Test: 08/07/2015 08:26:34; Summary: Atrial flutter-fibrillation - Nonspecific T-abnormality. ABNORMAL 30-Jul-2015 ELECTROCARDIOGRAM, COMPLETE (ECG) (10838) Comments: afib rate 109 Result: [MEASUREMENTS ANALYSIS] Date of Test: 07/30/2015 17:00:28; Heart Rate: 109; MD Interval: 0; QRS: 108; QT Interval: 338; Corrected QT Interval (QTc): 423; P Wave [place]: 1; QRS Wave [place]: -30; T Wave [place]: 42; Blood Pressure: 122/78 [ECG DIAGNOSTIC STATEMENTS] Date of Test: 07/30/2015 17:00:28; Summary: Atrial fibrillation -Nonspecific QRS widening. -Nonspecific ST depression -Nondiagnostic. ABNORMAL 24-Jul-2015 NCS and/or EMG Patient Result: Comments: See Note; NOTES: [facility] Pulmonary Services/Neurology [address] [place] [address] NCS and/or EMG Patient MR#: [id number] Acct: [id number] Name: LETHA ZUNIGA Rep #: [id number] : 1950 64 From: Mary Doan Referring Dr: Jorge Luis Kerr MD Status: REG CLI Ordering Dr: Jorge Luis Kerr MD Date: 07/23/15 Location: PSN Sex: M C DATE OF SERVICE: 07/23/2015 [...] referral. Mary Doan MD T: NTS JOB: [id number] 07/24/152201 <Elect ronically signed by Mary Doan > Date Mary Doan CC: Jazz Rodas DO; MARY DOAN; Jorge Luis Kerr MD Date Dictated: 38 Date Transcribed: 07/23/15937 Coin Machine Assembler: Signed 09-Jul-2015 Echocardiogram Complete Result: Comments: See Note; NOTES: [facility] Services [address] [facility] [place] [address] Echo Complete 07/09/15 0858 MR#: [id number] Acct: [id number] Name: LETHA DARBY Rep #: [id number] : 1950 64 From: Baabtunde Maria MD Attending Dr: Crow PERERA,Babatunde Status: REG CLI Ordering Dr: Babatunde Maria MD Date: 07/09/15 Location: [facility] Sex: M C Admitted: Reason [...] Dictated: 07/09/15 0858 Date Transcribed: 07/09/15 1258 Coin Machine Assembler: Signed 09-Jul-2015 Nuclear Stress Test - Chemical Result: Comments: See Note; NOTES: [facility] Services [address] [place] [address] Verdana 4d Nuclear Stress Test - Chemical MR#: [id number] Acct: [id number] N alexsander: LETHA DEUTSCH Rep #: [id number] : 1950 64 From: Babatunde Maria MD [...] fraction. Babatunde Maria MD T: NTS JOB: [id number] 07/10/15 1139 <Electronically signed by Babatunde Maria MD> Date Babatunde Maria MD CC: Jazz Rodas DO Date Dictated: 07/09/15 1110 Date Transcribed: 07/09/151109 Coin Machine Assembler: Signed 02-May-2015 Lumbar Spine 2 or 3 Views Result: Comments: See Note; NOTES: [facility] Imaging Services [address] [place], [place] [address] [address] Verdana 4d Lumbar Spine 2 or 3 Views MR#: [id number] Acct: [id number] Name: LETHA ARTHUR Rep #: [id number] : 1950 M 64 From: Osvaldo Manuel MD PCP: Jazz Rodas DO Status: REG CLI Study: Lumbar Spine 2 or 3 Views Date of Exam: 05/02/15 Exam# [id number] Ord ering Dr: Sherif Christensen MD STUDY: [...] Osvaldo Manuel MD at 15:13 EST Tel [phone], Service support [phone], 0056 RAD/Lumbar Spine 2 or 3 Views IMPRESSION: Grade 1 anterolisthesis of L5 on S1 with no significant translation on the flexion and extension maneuvers. Multilevel spondylosis and disc space narrowing. Electronically Signed: Osvaldo olivo MD at 15:13 EST Tel [phone], Service support [phone], CC: Sherif Christensen MD; Jazz Rodas DO Coin Machine Assembler: Signed 02-May-2015 Spine Lumbar without Contrast Result: Comments: See Note; NOTES: [facility] [address] [place] [address] Veronica 4d Spine Lumbar without Contrast MR#: [id number] Acct: [id number] Wisam e: LETHA DEUTSCH Rep #: [id number] : 1950 M 64 From: Scott Kelly MD PCP: Jazz Rodas DO Status: REG CLI Study: Spine Lumbar without Contrast Date of Exam: 05/02/15 Exam# [id number] Ordering Dr: Sherif Christensen MD STUDY: CT [...] Scott Kelly MD at 8:31 EST Tel [phone], Ser vice support [phone], CC: Sherif Christensen MD; Jazz Rodas DO Coin Machine Assembler: Signed 28-Jan-2015 History and Physical Exam Result: Comments: See Note; NOTES: [facility] Medical Records Department [address] [facility] [place] [address] History and Physical 01/24/15 2255 MR#: [id number] Acct: [id number] Name: LETHA DEUTSCH Rep #: [id number] : 1950 64 From: Joe Sinha PA-C PCP: Jazz Rodas DO Status: PRE IN Location: [facility] DATE OF SERVICE: PRIMARY CARE PHYSICIAN: Dr. Natalie Rodas. PROCEDURE TYPE: Reverse total shoulder replacement, right shoulder. PROCEDURE DATE: February 04, 2015. ATTENDING PHYSICIAN: Dr. Jorge Luis Kerr. HISTORY OF PRESENT ILLNESS: This is a 64-year-old male who first presented to [facility] on December 03, 2014. The patient states [...] patient has undergone cardiac clearance by his clinical data programmer, Dr. Maria. The patient has a history of coronary artery disease with bypass surgery in 1996. The patient has also had heart ablation in 2010 as well as stents in his left and right iliac arteries. The patient un derwent a heart catheterization in 2011. The patient was given surgical clearance by his clinical data programmer. The patient denies any chest pain, shortness of breath, nausea, vomiting, fevers, or chills. Aft er failing conservative treatment measures and discussing all treatment options with Dr. Jorge Luis Kerr, the patient would like to proceed with a reverse total shoulder replacement of the right shouldruperto rondaNeri I did discuss and reviewed at length and in detail 10 review of systems. All pertinent positives and negatives are noted in the medical record. Please see attached [facility] medical history sheet. PAST MEDICAL PROBLEMS: 1. [...] DIAGNOSTIC STUDIES: 1. X-rays were obtained at [facility] on December 03, 2014, of the right shoulder including 3 views AP, ___ _ and axillary view, show no acute fracture, dislocation, or other bony abnormalities, ____ lesion inferior aspect of the glenoid. 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 2. MRI o f the right shoulder was obtained at [facility] on ____ 2014, shows a full-thickness tear [...] nt has undergone cardiac clearance from his clinical data programmer. Joe Sinha PA-C T: NTS JOB: [id number] 01/28/15 0716 <Electronically signed by Joe Sinha [...] Lumbar (Routine) Result: Comments: See Note; NOTES: [facility] Services [address] [place] [address] MRI Report MR#: [id number] Acct: [id number] Name: LETHA DEUTSCH Rep #: [id number] : 1950 M 63 From: Jack Martínez MD PCP: Jazz Rodas DO Status: REG CLI Study: Spine Lumbar (Routine) Date of Exam: 06/13/14 Exam# [id number] Ordering Dr: Mihir Martínez MD STUDY: MR [...] at 19:32 EST Tel , Service support [phone], CC: Mihir Martínez MD; Jazz Rodas DO Coin Machine Assembler: Signed 06-Mar-2014 Sleep Study Report Result: Comments: See Note; NOTES: [facility] [address] [place] [address] Polysomnography with NCPAP MR#: [id number] Acct: [id number] Name: RADHA DEUTSCH Rep #: [id number] : 1950 63 From: Gennaro Larsen MD PCP: Rupinder Encarnacion DO Status: REG CLI Ordering Dr.: Gennaro Larsen MD Date: 02/28/14 Sex: M C REFERRING PHYSICIAN: Dr. Larsen. SLEEP HISTORY: The patient is a 63-year-old gentleman with a calculated body mass index of 36.3 and an [place] Sleepiness Scale score of 8/24. The patient [...] version). Please note that a reference to [facility] AHI in this report is consistent with the current Hypopnea definition according to Medicare Criteria and an AASM AHI reference is consistent with the current Hypopnea definition according to the AASM criteria. PROCEDURE: The stud y was attended continuously by a prepress technician. Monitored parameters included left and right [...] Duplex Ultrasound Result: Comments: See Note; NOTES: [facility] Cardi[facility] Services [address] [place] [address] Carotid Duplex Ultrasound 01/30/14 0854 MR#: [id number] Acct: [id number] Wisam e: LETHA DEUTSCH Rep #: [id number] : 1950 63 From: Rian Levi MD Attending Dr: Rupinder Encarnacion DO Status: REG CLI Ordering Dr: Rupinder Encarnacion DO Date: 01/30/14 Location: [facility] Sex: M C Admitte d: [...] the left vertebral artery. Procedure Carotid Duplex 37980. Exam performed in department. Interpretation Summary Mild (<50%) stenosis right extracranial internal carotid. Mild (<50%) stenosis left extracranial internal carotid. Flow within the vertebral arteries is antegrade bilaterally. Ordering Physician: Rupinder Encarnacion Performed By: Karon Harris RVT 01/30/14 1122 Date Rian Levi MD CC: Rupinder Encarnacion DO Date Dictated: 01/30/14 0854 Date Transcribed: 01/30/14 112 Coin Machine Assembler: Signed Immunization Name Dates Details Influenza (3 years and up) on: 24-Jan-2007 Comments: given o.5cc im in right deltoid lot#[id number] exp.10/09/07-aw Influenza (3 years and up) on: 15-Mar-2008 Influenza (3 years and up) on: 07-Jan-2009 Comments: Lot #:[id number] date:mount given:0.5mlRoute: IMSite given:left deltGiven by: PRECIOUS Serna (2 years and up) on: 24-Jan-2007 Comments: given 0.5cc in right deltoid lot#[id number] exp. 02/20/08-aw Family History Unknown Family Member Name Dates Details Father Comments: aty 52, Diabetes and [place] Status: Active Mother Comments: CAD, PVD Status: Active Social History Name Dates Details Alcohol Use Comments: Rare beer Status: Active Caffeine Use Status: Active Most Recent Primary Occupation Comments: retired 2013 Status: Active Tobacco Use: Former smoker. Comments: Remotely quit tobacco use- 11/24/10 Status: Active Smoking Status Name Dates Details Former smoker Vital Signs Date Test Result Details 43-Gkx-114829:55 Temperature 97.3 f Comments: Method: Temporal Pulse [...] Area Calculated 2.14 m2 :59 Comments: hearing [facility] and had a glaucoma test done Pulse [...] Surface Area Calculated 2.12 m2 :29 Comments: [facility] had[facility] glaucoma test doneHearing [...] kg/m2 Body Surface Area Calculated 2.11 m2 39-Joa-590254:50 Comments: [facility] Pulse 74 /min Comments: Pattern: Regular [...] 0.00 cm Results Date Description Value Details 87-Xku-108343:07 Basic Metabolic Profile (BMP) Comments: [facility] [address] [place], [phone] GAP 7 (Normal) Range: 5-15 CO2 30.0 [...] Comments: Please note revised GLUCOSE reference range zklvzykmy87/02/2018. :53 Albumin, Serum Comments: [facility] [address] [place], [phone] ALB 3.5 g/dL (Normal) Range: 3.2-5.0 :53 Hemoglobin A1c Comments: [facility] [address] [place], [address] HGB A1C 5.7 % (Normal) Range: 4.2-6.3 :53 Vitamin D,25 Hydroxy Comments: [facility] [address] [place], [phone] Vitamin D 25-OH 47.7 ng/mL (Normal) Range: 29.95-100.01 Comments: Vitamin D 25(OH) Status Range Deficiency <20 ng/mL (50nmol/L) Insuffciency 20 - 30 ng/mL (50 - 75 nmol/L) Sufficiency 30 - 100 ng/mL (75 - 250 nmol/L) Toxicity >100 ng/mL (>250 nmol/L) 8-Agb-571149:38 Basic Metabolic Profile (BMP) Comments: [facility] [address] [place], [place], [phone] GAP 10 (Normal) Range: 5-15 CO2 28.0 [...] Critical Result(s) Called at: 18:23:59 02/16/2018 by:Shawna arias [facility] GLU 96 mg/dL (Normal) Range: 74-106 Comments: Please note revised GLUCOSE reference range tukznopog47/02/2018. 6-Lhz-366735:38 CBC W/Diff, Automated Comments: [facility] [address] [place], [place], [phone] Absolute Lymph 1.17 {X10_3/ul} (Normal) Range: 0.83-4.51 [...] 4.6-6.2 WBC 4.9 K/mm3 (Normal) Range: 4.4-11.0 5-Ymr-331343:32 Urinalysis, Complete Comments: Order Date: 02/16/18Has pt arrived? YHow was Urine Obtained? CAMPUS ADMINISTRATIVE ASSISTANT TO [facility] [address] [place], [place], [phone] MUCUS, URINE 0 SEEN {/hpf} (Normal) BACTERIA [...] (Normal) CLARITY Clear (Normal) COLOR Yellow (Normal) 41-Xee-384969:57 Blood Glucose , Office (09804) Blood Glucose , Office 123 (Normal) :06 Lipid Profile Comments: [facility] [address] [place], [place], [phone] VLDL Test not performed mg/dL (Normal) Range: [...] :06 Liver Profile Comments: [facility] [address] [place], [place], [address] D BILI 0.07 mg/dL (Normal) Range: 0.00-0.30 T BILI 0.30 mg/dL (Normal) Range: 0.20-1.00 ALT 34 U/L (Normal) Range: 16-61 ALK P 58 U/L (Normal) Range: 45-117 AST 23 U/L (Normal) Range: 15-37 GLOB 3.4 g/dL (Normal) Range: 2.2-4.2 ALB 3.4 g/dL (Normal) Range: 3.2-5.0 T PROT 6.8 g/dL (Normal) Range: 6.4-8.2 :19 CBC W/Diff, Automated Comments: [facility] [address] [place], [place], [phone] Absolute Lymph 1.39 {X10_3/ul} (Normal) Range: 0.83-4.51 [...] 4.6-6.2 WBC 5.6 K/mm3 (Normal) Range: 4.4-11.0 93-Qea-78475:19 Comprehensive Metabolic Profil Comments: [facility] [address] [place], [place], [phone] GAP 13 (Normal) Range: 5-15 CO2 29.0 [...] A.D.A. criteria.Please note revised GLUCOSE reference range ypvypagbd03/02/2018. 11-Njf-13035:19 Lipid Profile Comments: [facility] [address] [place], [address] VLDL Test not performed mg/dL (Normal) Range: [...] Microalb:Creat Ratio,Random UR Comments: [facility] [address] [place], [place], [phone] MALB:CREAT 15.8 {mg/g_CRE} (Normal) MICROALBUMIN,UR 13.4 mg/L (Normal) UR CREAT 84.70 mg/dL (Normal) :19 Thyroid Stim Hormone (TSH) Comments: [facility] [address] [place], [address] TSH 1.82 {uIU/mL} (Normal) Range: 0.358-3.74 :19 Urinalysis, Complete Comments: How was Urine Obtained? CLEAN [facility] [address] [place], [address] MUCUS, URINE 0 SEEN {/hpf} [...] 353 pg/mL (Normal) Comments: [facility] [address] [facility] [place], [address] Range: 211-911 :19 Vitamin D,25 Hydroxy Comments: [facility] [address] [place], [phone] Vitamin D 25-OH 24.7 ng/mL (Abnormal) Range: 29.95-100.01 Comments: Vitamin D 25(OH) Status Range Deficiency <20 ng/mL (50nmol/L) Insuffciency 20 - 30 ng/mL (50 - 75 nmol/L) Sufficiency 30 - 100 ng/mL (75 - 250 nmol/L) Toxicity >100 ng/mL (>250 nmol/L) :02 HgA1C , Office (24433) HgA1C , Office 5.4 % (Normal) Range: 4.6 - 7.1 :02 Blood Glucose , Office (76646) Blood Glucose , Office 141 (Normal) :22 Lipid Profile Comments: [facility] [address] [place], [phone] VLDL 49 mg/dL (Abnormal) Range: 5-40 LDL [...] :22 Liver Profile Comments: [facility] [address] [place], [phone] D BILI 0.09 mg/dL (Normal) Range: 0.00-0.30 T BILI 0.30 mg/dL (Normal) Range: 0.20-1.00 ALT 26 U/L (Normal) Range: 12-78 ALK P 55 U/L (Normal) Range: 45-117 AST 18 U/L (Normal) Range: 15-37 GLOB 3.4 g/dL (Normal) Range: 2.2-4.2 ALB 3.6 g/dL (Normal) Range: 3.4-5.0 Comments: Please note revised Albumin AND Globulin reference rangeeffective 2017. T PROT 7.0 g/dL (Normal) Range: 6.4-8.2 6-Roy-530943:39 PSA (PROSTATE SPECIFIC Comments: PATIENT NOT FASTINGPERFORMED BY: [facility] HospitalPkhdhl7933 [facility] [id number] ANTIGEN) (V76.44) Prostate Specific Ag, 0.9 ng/mL (Normal) Range: 0.0-4.0 Serum Comments: [employer] methodology. .According to the [employer], Serum PSA shoulddecrease and remain [...] of malignant disease. :04 HgA1C , Office (48047) HgA1C , Office 5.6 % (Normal) Range: 4.6 - 7.1 :04 Blood Glucose , Office (81379) Blood Glucose , Office 117 (Normal) :37 CBC W/Diff, Automated Comments: [facility] [address] [place], [address] Absolute Lymph 1.18 {X10_3/ul} (Normal) Range: 0.83-4.51 [...] 4.6-6.2 WBC 5.2 K/mm3 (Normal) Range: 4.4-11.0 21-Ely-18856:37 Comprehensive Metabolic Profil Comments: [facility] [address] [place], [place], [phone] GAP 5 (Normal) Range: 5-15 CO2 32.0 [...] :37 Lipid Profile Comments: [facility] [address] [place], [address] VLDL 61 mg/dL (Abnormal) Range: 5-40 LDL [...] Microalb:Creat Ratio,Random UR Comments: [facility] [address] [place], [address] MALB:CREAT Test not performed {mg/g_CRE} (Normal) MICROALBUMIN,UR < 5.0 mg/L (Normal) UR CREAT 105.00 mg/dL (Normal) :37 Thyroid Stim Hormone (TSH) Comments: [facility] [address] [place], [address] TSH 1.68 {uIU/mL} (Normal) Range: 0.358-3.74 :37 Urinalysis, Complete Comments: How was Urine Obtained? CLEAN [facility] [address] [place], [phone] MUCUS, URINE 0 SEEN {/hpf} (Normal) BACTERIA [...] 539 pg/mL (Normal) Comments: [facility] [address] [place], [phone] Range: 211-911 :37 Vitamin D,25 Hydroxy Comments: [facility] [address] [place], [phone] Vitamin D 25-OH 42.0 ng/mL (Normal) Comments: Vitamin D 25(OH) Status Range Deficiency <20 ng/mL (50nmol/L) Insuffciency 20 - 30 ng/mL (50 - 75 nmol/L) Sufficiency 30 - 100 ng/mL (75 - 250 nmol/L) Toxicity >100 ng/mL (>250 nmol/L) Gastric Biopsy See Note (Normal) Comments: [facility] [address], [phone] :56 Comments: Patient: LETHA DEUTSCH : 1950 (65/M) Acct Num: [id number] Phys: Jose Antonio Mehta Unit Num: [id number] Loc: LABSPEC Specimen: [id number] Received: 10/21/161630 Spec Type: Gastric Bx TISSUES TISSUES: COMMENT The results of immunohistochemistry for Helicobacter pylori will be reported separately ([id number]). GROSS DESCRIPTION Received in fixative i s one container labeled with the patient's name and designated gastric/antrum biopsy. The specimen consists of two irregular fragments of light pacheco soft tissue that in aggregate measure 0.6 x 0.3 x 0 .1 cm. The specimen is totally submitted in one cassette. / SJ:berta 10/22/16 TC:3 CPT: 74346 HEADER OPERATION: EGD with biopsy PRE-OP DIAGNOSIS: [...] See Note (Normal) Comments: [facility] [address] [place], [address] :00 Comments: Patient: LETHA DEUTSCH : 1950 (65/M) Acct Num: [id number] Phys: ToneyglennaJose Antonio Unit Num: [id number] Loc: [facility]SPEC Specimen: [id number] Received: 10/25/161212 Spec Type: IMMUNO TISSUES TISSUES: SPECIMEN INFORMATION: Tissue Source: Gastric antrum biopsy Clinical Info: Iron deficiency anemia Specimen Number: [id number] CPT code: 95962 METHODO LOGY: Deparaffinized sections of prefer/formalin-fixed tissue [...] organisms. SJ:berta 10/26/16 PHYSICIAN AND INSTITUTION [address] [address] Signed Peter Ibanez 10/26/16 <signature on file> 9-Gqn-383655:26 CBC-Complete Blood Cnt No Diff Comments: [facility] [address] [place], [place], [phone] MPV 9.7 fL (Normal) Range: 6.2-12.0 PLT [...] 4.6-6.2 WBC 5.5 K/mm3 (Normal) Range: 4.4-11.0 1-Tru-625632:26 Iron Comments: [facility] [address] [place], [place], [phone] IRON 109 ug/dL (Normal) Range: 65-175 5-Bgq-464802:10 Basic Metabolic Profile (BMP) Comments: DR.STRUNETS MALHOTRA BMP,CBCD DR. CROW MALHOTRA PT/[facility] [address]urhqxss[address] [place], [place], [id number] GAP 7 (Normal) Range: 5-15 CO2 28.0 [...] 126 mg/dLsuggests DIABETES MELLITUS per A.D.A. criteria. 7-Ahy-047133:10 CBC W/Diff, Automated Comments: DR.STRUNETS MALHOTRA BMP,CBCD DR. CROW MALHOTRA PT/[facility] [address]tk[address] [place], [place], [address] Absolute Lymph 0.85 {X10_3/ul} (Normal) Range: 0.83-4.51 [...] 4.6-6.2 WBC 3.9 K/mm3 (Abnormal) Range: 4.4-11.0 2-Xef-222855:10 Prothrombin Time w/INR Comments: DR.STRUNETS MALHOTRA BMP,CBCD DR. CROW MALHOTRA [facility] [address] [place], [place], [address] INR 1.5 (Normal) PROTIME 17.9 s (Abnormal) Range: 11.7-14.9 07-Fte-884211:31 Stool Occult Blood iFOB Comments: [facility] [address] [place], [place], [address] STOB See Note (Normal) Comments: Order Date: 09/02/16 STOB iFOBOccult Blood Positive ORGANISM 1: OCCULT BLOOD POSITIVE 55-Oxa-735868:25 Basic Metabolic Profile (BMP) Comments: [facility] Pbrwjfcprg8315 [facility]. [place], [place], [address] GAP 8 (Normal) Range: 5-15 CO2 29.0 [...] 7-18 GLU 98 mg/dL (Normal) Range: 70-110 25-Ifw-676816:25 CBC-Complete Blood Cnt No Diff Comments: [facility] Z[address]ax[address]xan[address] [place], [place], [address] MPV 8.8 fL (Normal) Range: 6.2-12.0 PLT [...] 4.6-6.2 WBC 5.6 K/mm3 (Normal) Range: 4.4-11.0 69-Ehg-229582:25 Liver Profile Comments: [facility] [address]upqrwb[address] [place], [place], [address] D BILI 0.05 mg/dL (Normal) Range: 0.00-0.30 T BILI 0.20 mg/dL (Normal) Range: 0.20-1.00 ALT 24 U/L (Normal) Range: 12-78 ALK P 51 U/L (Normal) Range: 45-117 AST 13 U/L (Abnormal) Range: 15-37 GLOB 3.3 g/dL (Normal) Range: 2.3-3.5 ALB 3.7 g/dL (Normal) Range: 3.4-5.0 T PROT 7.0 g/dL (Normal) Range: 6.4-8.2 42-Kef-832406:25 Prothrombin Time w/INR Comments: [facility] [address] [place], [address] INR > 19.5 (Abnormal) Comments: RESULTS CALLED TO BRITTANEY 09/02/16 1753 Vito Arteaga.REPORT READ BACK BY SAME. PROTIME > 120.0 s (Abnormal) Range: 11.7-14.9 78-Wnl-827006:53 Prothrombin Time w/INR Comments: [facility] [address] [place], [address] INR > 19.5 (Abnormal) Comments: CRITICAL VALUE VERIFIED. [facility] [place] [facility]09/02/16 1447 Alice Luque.RESULTS READ BACK BY SAME . PROTIME > 120.0 s (Abnormal) Range: 11.7-14.9 49-Fsx-751245:33 Prothrombin Time w/INR Comments: [facility] [address] [place], [address] INR 1.9 (Normal) PROTIME 21.2 s (Abnormal) Range: 11.7-14.9 :51 HgA1C , Office (94517) HgA1C , Office 5.5 % (Normal) Range: 4.6 - 7.1 :51 Blood Glucose , Office (14412) Blood Glucose , Office 131 (Normal) 41-Fbq-591300:44 Prothrombin Time w/INR Comments: [facility] [address] [place], [address] INR 2.4 (Normal) PROTIME 25.5 s (Abnormal) Range: 11.7-14.9 99-Ssj-433749:11 Prothrombin Time w/INR Comments: [facility] [address] [place], [address] INR 1.5 (Normal) PROTIME 17.7 s (Abnormal) Range: 11.7-14.9 :47 Prothrombin Time w/INR Comments: [facility] [address] [place], [address] INR 1.5 (Normal) PROTIME 17.7 s (Abnormal) Range: 11.7-14.9 4-Rbd-739187:45 Basic Metabolic Profile (BMP) Comments: Order Date: 06/09/16Order Info: [id number] - *BMPDR. CROW ORDERED PTINR STANDING ORDER.Order Date: 06/09/16Order Info: [id number] - *BMPComments: Reason:[facility] [address], [address] GAP 9 (Normal) Range: 5-15 CO2 30.0 [...] Range: 70-110 :02 Prothrombin Time w/INR Comments: [facility] [address] [place], [address] INR 1.8 (Normal) PROTIME 20.1 s (Abnormal) Range: 11.7-14.9 :27 POTASSIUM SERUM (57181) Comments: STAT; Order Date: 06/30/16Order Info: 2823-3 - KComments: STATOrder Date: 06/30/16Order Info: 2823-3 - KComments: [facility] Cakos[address]ojv[address]349 [place], [address] K 4.6 mmol/L Range: 3.5-5.1 (Normal) Vitamin B2, Whole 236 ug/L (Normal) Comments: PATIENT NOT FASTINGPERFORMED BY: CB [facility] Porhvv7771 Hansen RoadDublin [place] [id number] BY: [address] [id number] 5:40 Blood Range: 137-370 Comments: Reference interval reflects flavinadeninedinucleotide (FAD), that accounts for approximately 90% of the total riboflavin in whole blood. 90-Iuc-130526:40 Vitamin B6, Plasma Comments: PATIENT NOT FASTINGPERFORMED BY: [facility] Dwjxkl1852 Hansen RoadDublin [place] [id number] BY: [address] [id number] (16057) Vitamin B6 36.6 ug/L (Normal) Range: 5.3-46.7 98-Ffk-009695:40 ALCOHOL, ETHYL (BLOOD) Comments: serum alcohol; PATIENT NOT FASTINGPERFORMED BY: [facility] Acpgel1521 Hansen RoadDublin [place] [id number] BY: [address] [id number] (67347) Ethanol Negative % (Normal) 10-Rxf-938200:40 AMMONIA (42587) Comments: PATIENT NOT FASTINGPERFORMED BY: [facility] Kaywgl6418 Hansen RoadDublin [place] [id number] BY: [address] [id number] Ammonia, Plasma 42 ug/dL (Normal) Range: 27-102 46-Qtl-113179:40 VITAMIN B-12 Comments: PATIENT NOT FASTINGPERFORMED BY: [facility] Yulkix9542 Hansen RoadDublin [place] [id number] BY: [address] [id number] (CYANOCOBALAMIN) (04499) Vitamin B12 417 pg/mL (Normal) Range: 211-946 35-Fmt-252507:40 SED RATE ERYTHROCYTE Comments: PATIENT NOT FASTINGPERFORMED BY: [place] 4710370 [facility] [id number] BY: [address] [id number] (29228) Sedimentation Rate-Westergren 8 mm/h (Normal) Range: 0-30 42-Goa-562040:40 RHEUMATOID FACTOR-QUANT Comments: PATIENT NOT FASTINGPERFORMED BY: [employer] [id number] BY: [address] [id number] (20646) RA Latex Turbid. 10.8 {IU/mL} (Normal) Range: 0.0-13.9 38-Scb-927548:40 METABOLIC PANEL, Comments: PATIENT NOT FASTINGPERFORMED BY: [place] [place] GamesTommy [place] [id number] [facility] [id number] BY: [employer] [id number] COMPREHENSIVE (15507) ALT (SGPT) 25 [iU]/L (Normal) Range: 0-44 [...] Glucose, Serum 100 mg/dL (Abnormal) Range: 65-99 31-Tsl-947648:40 C-REACTIVE PROTEIN Comments: PATIENT NOT FASTINGPERFORMED BY: [employer] [id number] BY: [employer] [id number] (28049) C-Reactive Protein, Quant 0.9 mg/L (Normal) Range: 0.0-4.9 46-Dge-969920:40 CBC (AUTO) (79648) Comments: PATIENT NOT FASTINGPERFORMED BY: [employer] [address] [id number] BY: [employer] [id number] Platelets 194 {x10E3/uL} (Normal) Range: 150-379 RDW 15.6 % (Abnormal) Range: 12.3-15.4 MCHC 33.1 g/dL (Normal) Range: 31.5-35.7 MCH 34.4 pg (Abnormal) Range: 26.6-33.0 MCV 104 fL (Abnormal) Range: 79-97 Hematocrit 39.9 % (Normal) Range: 37.5-51.0 Hemoglobin 13.2 g/dL (Normal) Range: 12.6-17.7 RBC 3.84 {x10E6/uL} (Abnormal) Range: 4.14-5.80 WBC 5.9 {x10E3/uL} (Normal) Range: 3.4-10.8 60-Zar-964663:40 CHIQUI (ANTINUCLEAR ANTIBODY) Comments: PATIENT NOT FASTINGPERFORMED BY: [employer] GamesWeisman Children's Rehabilitation HospitalWdygea9158 [facility] [id number] BY: [place] [id number] (95[address]) CHIQUI Direct Negative (Normal) :40 TSH (05951) Comments: PATIENT NOT FASTINGPERFORMED BY: [employer] [id number] BY: [address] [id number] TSH 2.350 {uIU/mL} (Normal) Range: 0.450-4.500 :40 T4, FREE (THYROXINE) Comments: PATIENT NOT FASTINGPERFORMED BY: [place] 4710370 [facility] [id number] BY: [address] [id number] (41611) T4,Free(Direct) 0.95 ng/dL (Normal) Range: 0.82-1.77 :40 T3, FREE (TRIDOTHYRONINE) Comments: PATIENT NOT FASTINGPERFORMED BY: [place] [place] GamesTom[place] [id number] [facility] [id number] BY: [address] [id number] (87268) Triiodothyronine,Free,Serum 2.7 pg/mL (Normal) Range: 2.0-4.4 80-Vls-727014:40 CALCIFIDIOL (01194) VIT D Comments: PATIENT NOT FASTINGPERFORMED BY: [address] [id number] BY: [address] [id number] 25 Vitamin D, 25-Hydroxy 43.4 ng/mL (Normal) Range: 30.0-100.0 Comments: Vitamin D deficiency has been defined by the Parker ofMedicine and an Endocrine Society practice guideline as alevel of serum 25-OH vitamin D less than 20 ng/mL (1,2).The Endocrine Society went on to further define vitamin Dinsufficiency as a level between 21 and 29 ng/mL (2).1. IOM (Parker of Medicine). 2010. Dietary reference intakes for calcium and D. Ca DC: The National Academies Press.2. Elyse MF, Saumya PUENTE, Nai MARIANO, et al. Evaluation, treatment, and prevention of vitamin D deficiency: an Endocrine Society clinical practice guideline. JCEM. 2010; 96(7):1911-30. 94-Apj-505755:45 Alcohol, Blood (Medical)-Serum Comments: [facility] Jk[address]vmiexq3[address] NewtonNeri [place], [place], [address] SERUM ETOH 353.0 mg/dL (Abnormal) Comments: CALLED KEESHA LOBO RN ED [place] 2054PM MAF READ BACK BY SAMEThe serum:whole blood ethanol ratio is approximately 1.14and varies slightly with hematocrit.Medical Alcohol reference interval and critical v alue innon-tolerant individuals; 50 - 100 Impairment 100 Intoxication 100 - 250 Severe Poisoning 250 - 400 Deep/possible fatal coma 50-Lak-363111:45 Basic Metabolic Profile (BMP) Comments: 'TROP' Serial specimen #1, #2, #3, or #4: 1[facility] [address]fiumcrp[address] [place], [address] GAP 10 (Normal) Range: 5-15 CO2 26.0 [...] CBC W/Diff, Automated Comments: [facility] [address]shonpiflg[address] [place], [place], [address] Absolute Lymph 2.30 {X10_3/ul} (Normal) Range: 0.83-4.51 [...] Partial Thromboplast Time Comments: [facility] [address]jas[address] [place], [place], [address] PTT 28.3 s (Normal) Range: 24.1-36.2 :45 Prothrombin Time w/INR Comments: [facility] [address] [place], [address] INR 1.1 (Normal) PROTIME 14.1 s (Normal) Range: 11.7-14.9 :45 Troponin-I Comments: 'TROP' Serial specimen #1, #2, #3, or #4: 1W[facility] [address]su[address] [place], [place], [address] TROPONIN-I < 0.02 ng/mL (Normal) Comments: TROPONIN-I EXPECTED VALUES <0.05 NEGATIVE 0.06 - 0.59 AT RISK OF HI > OR = 0.60 SUGGEST HI :24 Prothrombin Time w/INR Comments: [address] [place], [place], [address] ; managed by [facility] INR 1.3 (Normal) PROTIME 15.2 s (Abnormal) Range: 11.7-14.9 :46 INR Fingerstick Comments: [address] [place] [place] [address] INR ISTAT 3.90 (Abnormal) Comments: Critical Value > 3.5 :46 Prothrombin Time Fingerstick Comments: [address] [place] [address] PROTIME ISTAT 43.7 {SEC} (Abnormal) Range: 11.9-14.4 Comments: Reference Range 11.9 - 14.4 :46 Prothrombin Time w/INR Comments: [place] [address] [place], [address] INR 4.0 (Abnormal) Comments: CRITICAL VALUE VERIFIED. CALLED TO MNSYTDV81 Nova Walters.RESULTS READ BACK BY SAME . PROTIME 38.0 s (Abnormal) Range: 11.7-14.9 56-Zcc-217520:49 Prothrombin Time w/INR Comments: [facility] Unlxnvqbgb[address] [place], [phone] INR 2.8 (Normal) PROTIME 28.4 s (Abnormal) Range: 11.7-14.9 59-Azr-691903:52 Basic Metabolic Profile (BMP) Comments: Order Date: 05/04/16Order Info: [id number] - *BMPOrder Date: 05/04/16Order Info: [id number] - *Brain Natriuretic Peptide BNPComments: Reason:[facility] [address] [place], [address] GAP 10 (Normal) Range: 5-15 CO2 [...] 7-18 GLU 104 mg/dL (Normal) Range: 70-110 29-Abr-817965:52 BNP,B-Type NATRIURETIC PEPTIDE Comments: Order Date: 05/04/16Order Info: [id number] - *Brain Natriuretic Peptide BNPOrder Date: 05/04/16Order Info: [id number] - *Brain Natriuretic Peptide BNPWooSelect Medical [facility] [address]cdjqnf[address] [place], [phone] B-TYPE ARASELI PEP 240.6 pg/mL (Abnormal) Range: 0-100 29-Kwo-025557:52 Prothrombin Time w/INR Comments: [facility] [address]txyhgkylh[address] [place], [address] INR 2.5 (Normal) PROTIME 25.8 s (Abnormal) Range: 11.7-14.9 81-Hyg-716862:46 Liver Profile Comments: Order Date: 12/12/15Order Date: 12/12/15W[facility] [address]ytxudfqi[address] [place], [address] D BILI 0.12 mg/dL (Normal) Range: 0.00-0.30 T BILI 0.30 mg/dL (Normal) Range: 0.20-1.00 ALT 35 U/L (Normal) Range: 12-78 ALK P 56 U/L (Normal) Range: 45-117 AST 25 U/L (Normal) Range: 15-37 Comments: Slight Hemolysis, Result may be falsely increased. GLOB 3.7 g/dL (Abnormal) Range: 2.3-3.5 ALB 3.7 g/dL (Normal) Range: 3.4-5.0 T PROT 7.4 g/dL (Normal) Range: 6.4-8.2 58-Ckd-169351:46 Prothrombin Time w/INR Comments: [facility] [address]spdii[address] [place], [address] INR 3.6 (Abnormal) Comments: CRITICAL VALUE REPEATED AND VERIFIED. CALLED TO DARRYL MEYERS'S OFFICE.04/26/16 1238 Randy Buchanan.RESULTS READ BACK BY SAME. PROTIME 35.0 s (Abnormal) Range: 11.7-14.9 :58 Basic Metabolic Profile (BMP) Comments: [facility] Poasumrmrn8595 [place] Maki, [address] GAP 7 (Normal) Range: 5-15 CO2 32.0 [...] Prothrombin Time w/INR Comments: [facility] [address]wcflisn[address] [place], [place], [address] INR 1.9 (Normal) PROTIME 20.9 s (Abnormal) Range: 11.7-14.9 :08 Prothrombin Time w/INR Comments: [address] [place], [address] INR 3.3 (Normal) PROTIME 32.5 s (Abnormal) Range: 11.7-14.9 :34 Prothrombin Time w/INR Comments: [facility] [address] [place], [address] ; managed by cardio INR 2.6 (Normal) PROTIME 27.0 s (Abnormal) Range: 11.7-14.9 :16 HgA1C , Office (38600) HgA1C , Office 5.7 % (Normal) Range: 4.6 - 7.1 04-Uhj-010503:13 Prothrombin Time w/INR Comments: [address] [place], [address] INR 2.6 (Normal) PROTIME 27.1 s (Abnormal) Range: 11.7-14.9 :26 CBC W/Diff, Automated Comments: [address] [place], [address] Absolute Lymph 1.54 {X10_3/ul} (Normal) Range: 0.83-4.51 [...] ORDERED VITD LIPID MAG CBCD CMP MIACRE [facility] [address]tejrbj[address] [place], [place], [phone] GAP 4 (Abnormal) Range: 5-15 CO2 28.0 [...] ORDERED VITD LIPID MAG CBCD CMP MIACRE [facility] [address]wma[address]ijj6[address] [place], [place], [address] VLDL 72 mg/dL (Abnormal) Range: 5-40 LDL [...] PT/INRDR.IRVIN ORDERED VITD LIPID MAG CBCD [facility] [address]gyqhvpf04[address] [place], [phone](390 MG 2.6 mg/dL (Abnormal) Range: 1.8-2.4 :26 Microalb:Creat Ratio,Random UR Comments: [facility] [address]fbklexis1391 [place], [address] MALB:CREAT 24.3 {mg/g_CRE} (Normal) MICROALBUMIN,UR 70.9 mg/L (Normal) UR CREAT 292.00 mg/dL (Normal) :26 Prothrombin Time w/INR Comments: [facility] Yiejsgwboz0519 [place], [address] INR 3.5 (Abnormal) Comments: CRITICAL VALUE REPEATED AND VERIFIED. CALLED TO ORTIZ LABOY'S OFFICE.03/16/16 0742 Randy Buchanan.RESULTS READ BACK BY SAME. PROTIME 33.9 s (Abnormal) Range: 11.7-14.9 :26 Thyroid Stim Hormone (TSH) Comments: ORDERED PT/INRDR.IRVIN ORDERED VITD LIPID MAG CBCD [facility] [address]xqwwlincs9078 [place], [address] TSH 2.35 {uIU/mL} (Normal) Range: 0.358-3.74 :26 Urinalysis, Complete Comments: How was Urine Obtained? CLEAN [facility] Rkjbeuxljn4002 [place], [address] HYALINE CAST 5-10 SEEN {/lpf} (Normal) [...] Vitamin D,25 Hydroxy Comments: [facility] [address] [place], [address] Vitamin D 25-OH 39.8 ng/mL (Normal) Comments: Vitamin D 25(OH) Status Range Deficiency <20 ng/mL (50nmol/L) Insuffciency 20 - 30 ng/mL (50 - 75 nmol/L) Sufficiency 30 - 100 ng/mL (75 - 250 nmol/L) Toxicity >100 ng/mL (>250 nmol/L) :03 Prothrombin Time w/INR Comments: [facility] [address] [place], [address] INR 4.0 (Abnormal) Comments: CRITICAL VALUE REPEATED AND VERIFIED. CALLED TO [facility]03/10/16 0907 Alice Luque.RESULTS READ BACK BY SAME . PROTIME 37.4 s (Abnormal) Range: 11.7-14.9 :57 Prothrombin Time w/INR Comments: [facility] [address] [place], [address] INR 1.6 (Normal) PROTIME 18.3 s (Abnormal) Range: 11.7-14.9 :02 Prothrombin Time w/INR Comments: [facility] [address] [place], [address] INR 1.8 (Normal) PROTIME 20.6 s (Abnormal) Range: 11.7-14.9 :12 Prothrombin Time w/INR Comments: [place] [address] [place], [address] INR 2.3 (Normal) PROTIME 24.4 s (Abnormal) Range: 11.7-14.9 :50 Prothrombin Time w/INR Comments: [place] [address] [place], [address](245) INR 2.8 (Normal) PROTIME 28.9 s (Abnormal) Range: 11.7-14.9 :40 INR Fingerstick Comments: [place] [address] [place] [address](923) INR ISTAT 2.40 (Normal) Comments: Critical Value > 3.5 :40 Prothrombin Time Fingerstick Comments: [place] [address] [place] [address] PROTIME ISTAT 27.5 {SEC} (Abnormal) Range: 11.9-14.4 Comments: Reference Range 11.9 - 14.4 :54 Prothrombin Time w/INR Comments: THERE IS NO VRO CHARGE ON THIS PATIENT; THIS PATIENTRETURNED FROM TUESDAY. A BMP AND A PT WAS SUPPOSED TO BEDRAWN, ONLY THE BMP WAS DONE. [place] [address] [place], [address] INR 2.8 (Normal) PROTIME 28.4 s (Abnormal) Range: 11.7-14.9 :38 Basic Metabolic Profile (BMP) Comments: Order Date: 01/08/16Comments: Reason:Order Date: 01/08/16Comments: Reason:[place] [address] [place], [address] GAP 9 (Normal) Range: 5-15 CO2 [...] Prothrombin Time w/INR Comments: [facility] [address] [place], [address](847) INR 4.6 (Abnormal) Comments: CRITICAL VALUE REPEATED AND VERIFIED. CALLED TO [facility]02/05/16 1003 Alice Luque.RESULTS READ BACK BY SAME . PROTIME 41.9 s (Abnormal) Range: 11.7-14.9 :01 Prothrombin Time w/INR Comments: [facility] [address] [place], [place], [phone](381) INR 2.5 (Normal) PROTIME 26.0 s (Abnormal) Range: 11.7-14.9 :40 Prothrombin Time w/INR Comments: [facility] [address] [place], [place], [phone](750) INR 2.5 (Normal) PROTIME 26.1 s (Abnormal) Range: 11.7-14.9 :52 Prothrombin Time w/INR Comments: [facility] [address] [place], [place], [address] INR 2.3 (Normal) PROTIME 24.3 s (Abnormal) Range: 11.7-14.9 3-Enq-397345:24 Basic Metabolic Profile (BMP) Comments: Order Date: 01/13/16Comments: Reason: For Out patient Cardioversion on 02/16/16Order Date: 01/13/16Comments: Reason: For Out patient Cardioversion on 02/16/16[facility] [address] [place], [address] GAP 5 (Normal) Range: 5-15 CO2 33.0 [...] 12/09/15Interface Comments: Reason:Order Date: 12/09/15[facility] Eeddbkicry54[address] [place], [address] GAP 9 (Normal) Range: 5-15 CO2 29.0 [...] fib, on CoumadinOrder Date: 01/05/16[facility] Rxmaomrlsf[address] [place], [place], [address](797) INR 3.6 (Abnormal) Comments: CRITICAL VALUE REPEATED AND VERIFIED. CALLED TO CANDACE P001/07/16 0819 Terrie Toussaint.RESULTS READ BACK BY CANDACE. PROTIME 34.9 s (Abnormal) Range: 11.7-14.9 :21 Prothrombin Time w/INR Comments: [facility] [address] [place], [place], [phone](031) INR 2.1 (Normal) PROTIME 23.1 s (Abnormal) Range: 11.7-14.9 :12 Prothrombin Time w/INR Comments: Order Date: 12/26/15Interface Comments: draw on arrivalOrder Date: 12/26/15[facility] [address] [place], [place], [address](058) INR 2.9 (Normal) PROTIME 29.2 s (Abnormal) Range: 11.7-14.9 :08 Prothrombin Time w/INR Comments: [facility] [address] [place], [place], [address](934) INR 1.7 (Normal) PROTIME 19.6 s (Abnormal) Range: 11.7-14.9 77-Shb-39059:03 Prothrombin Time w/INR Comments: Order Date: 12/18/15Order Date: 12/18/15W[facility] [address]vdlr[address] [place], [address] INR 4.1 (Abnormal) Comments: CRITICAL VALUE REPEATED AND VERIFIED. CALLED TO DARRYL LABOY'S OFFICE.12/23/15 0803 Randy Buchanan.RESULTS READ BACK BY SAME. PROTIME 38.6 s (Abnormal) Range: 11.7-14.9 0-Cmy-441631:16 Basic Metabolic Profile (BMP) Comments: Order Date: 12/18/15Interface Comments: Reason:Order Date: 12/18/15W[facility] [address]srkgsgmnu[address] [place], [place], [address] GAP 9 (Normal) Range: 5-15 CO2 28.0 [...] A.D.A. criteria. 16-Dec-20158:11 Prothrombin Time w/INR Comments: [facility] [address]vww[address] [place], [address] INR 3.6 (Abnormal) Comments: CRITICAL VALUE REPEATED AND VERIFIED. CALLED TO TORITO MEHTA12/16/15 Ondina Luque.RESULTS READ BACK BY SAME . PROTIME 34.5 s (Abnormal) Range: 11.7-14.9 :10 Basic Metabolic Profile (BMP) Comments: Order Date: 12/04/15Interface Comments: Reason:Order Date: 12/04/15[facility] [address]re[address] [place], [place], [address] GAP 8 (Normal) Range: 5-15 CO2 28.0 [...] 7-18 GLU 85 mg/dL (Normal) Range: 70-110 85-Gno-48409:10 Lipid Profile Comments: Order Date: 12/04/15Interface Comments: Reason:Order Date: 12/04/15[facility] [address] [place], [place], [address] VLDL Test not performed mg/dL (Normal) Range: [...] 12/04/15Interface Comments: Reason:Order Date: 12/04/15[facility] [id number] [place], [id number] D BILI 0.11 mg/dL (Normal) Range: 0.00-0.30 [...] 12/04/15Interface Comments: Reason:Order Date: 12/04/15[facility] [id number] [place], [phone] MG 2.1 mg/dL (Normal) Range: 1.8-2.4 :10 Prothrombin Time w/INR Comments: Order Date: 12/04/15Interface Comments: Reason:Order Date: 12/04/15[facility] [id number] [place], [phone](854) INR 1.7 (Normal) PROTIME 19.3 s (Abnormal) Range: 11.7-14.9 :10 Thyroid Stim Hormone (TSH) Comments: Order Date: 12/04/15Interface Comments: Reason:Order Date: 12/04/15[facility] [id number] [place], [address] TSH 1.65 {uIU/mL} (Normal) Range: 0.358-3.74 :41 MAGNESIUM (93522) Comments: PATIENT NOT FASTINGPERFORMED BY: [facility] [id number] [facility] [id number] Magnesium, Serum 2.1 mg/dL (Normal) Range: 1.6-2.3 [...] Basic Comments: PATIENT NOT FASTINGPERFORMED BY: [facility] [id number] [facility] [id number] Information: [id number] ([id number]) Calcium, Serum 9.1 mg/dL (Normal) Range: 8.6-10.2 [...] Range: 65-99 :21 Blood Glucose , Office (46745) Blood Glucose , Office 99 (Normal) :21 HgA1C , Office (30932) HgA1C , Office 5.0 % (Normal) Range: 4.6 - 7.1 45-Svg-088381:49 RETICULOCYTE COUNT (89711) Comments: PATIENT NOT FASTINGPERFORMED BY: [facility] HospitalVotjee4009 [facility] [id number] Reticulocyte Count 2.4 % (Normal) Range: 0.6-2.6 :49 VITAMIN B-12 (CYANOCOBALAMIN) Comments: PATIENT NOT FASTINGPERFORMED BY: [facility] HospitalIugrhr0745 [facility] [id number] Information: [id number] ([id number]) Vitamin B12 560 pg/mL (Normal) Range: 211-946 :36 Bilirubin, Direct Comments: [facility] Npov[address]ip6166 [facility]. [place], [place], [address] D BILI 0.14 mg/dL (Normal) Range: 0.00-0.30 :36 CBC W/Diff, Automated Comments: [facility] [address] [place], [address] Absolute Lymph 1.26 {X10_3/ul} (Normal) Range: 0.83-4.51 [...] 4.6-6.2 WBC 5.1 K/mm3 (Normal) Range: 4.4-11.0 33-Kzl-02054:36 Comprehensive Metabolic Profil Comments: [facility] [address] [place], [place], [id number] GAP 6 (Normal) Range: 5-15 CO2 30.0 [...] :36 Lipid Profile Comments: [facility] [address]wr[address] [place], [place], [id number] VLDL 62 mg/dL (Abnormal) Range: 5-40 LDL [...] Microalb:Creat Ratio,Random UR Comments: [facility] Gnojqbjxch8595 [facility] [address] [place], [place], [address] MALB:CREAT 142.0 {mg/g_CRE} (Abnormal) MICROALBUMIN,UR 223.0 mg/L (Normal) UR CREAT 157.00 mg/dL (Normal) :36 Thyroid Stim Hormone (TSH) Comments: [facility] [address]rag[address] [place], [place], [address] TSH 1.17 {uIU/mL} (Normal) Range: 0.358-3.74 :36 Urinalysis, Complete Comments: How was Urine Obtained? [facility] [address] [place], [place], [id number] MUCUS, URINE 0 SEEN {/hpf} (Normal) BACTERIA [...] Vitamin D,25 Hydroxy Comments: [facility] Sonhikoqwa3590 [facility] [address] [place], [place], [address] Vitamin D 25-OH 21.0 ng/mL (Normal) Comments: Vitamin D 25(OH) Status Range Deficiency <20 ng/mL (50nmol/L) Insuffciency 20 - 30 ng/mL (50 - 75 nmol/L) Sufficiency 30 - 100 ng/mL (75 - 250 nmol/L) Toxicity >100 ng/mL (>250 nmol/L) :29 HgA1C , Office (85490) HgA1C , Office 5.6 % (Normal) Range: 4.6 - 7.1 :29 Blood Glucose , Office (01377) Blood Glucose , Office 96 (Normal) :29 CBC W/Diff, Automated Comments: [facility] Xyllsotqdw3259 [facility] [address]. [place], [place], [address] Absolute Lymph 2.04 {X10_3/ul} (Normal) Range: 0.83-4.51 [...] 4.6-6.2 WBC 7.9 K/mm3 (Normal) Range: 4.4-11.0 23-Jkf-261940:29 Comprehensive Metabolic Profil Comments: [facility] Zbq[address]qsbndu2271 [place], [place], [address] GAP 12 (Normal) Range: 5-15 CO2 25.0 [...] HOMEOSTASIS per A.D.A. criteria. :16 Rapid Flu (33937 x 2) Influenza A Ag neg a and b (Normal) :13 Basic Metabolic Profile (BMP) Comments: [facility] [address] [place], [address] GAP 4 (Abnormal) Range: 5-15 CO2 33.0 [...] 7-18 GLU 90 mg/dL (Normal) Range: 70-110 11-Kwd-170849:50 HgA1C , Office (39821) HgA1C , Office 5.2 % (Normal) Range: 4.6 - 7.1 54-Mkz-210492:50 Blood Glucose , Office (06094) Blood Glucose , Office 111 (Normal) :48 Basic Metabolic Profile (BMP) Comments: [facility] [address] [place], [address] GAP 7 (Normal) Range: 5-15 CO2 31.0 [...] T4 Total, Thyroxin Comments: [facility] [address] [place], [address] T4 THYROXIN 6.7 ug/dL (Normal) Range: 4.5-12.1 :48 Thyroid Stim Hormone (TSH) Comments: [facility] [address] [place], [address] TSH 1.02 {uIU/mL} (Normal) Range: 0.358-3.74 :35 CBC W/Diff, Automated Comments: [facility] [address] [place], [address] Absolute Lymph 1.13 {X10_3/ul} (Normal) Range: [...] Comprehensive Metabolic Profil Comments: [facility] [address] [place], [address] GAP 5 (Normal) Range: 5-15 [...] :35 Lipid Profile Comments: [facility] [address] [place], [place], [address] VLDL 44 mg/dL (Abnormal) Range: 5-40 LDL [...] Microalb:Creat Ratio,Random UR Comments: [facility] [address] [place], [address] MALB:CREAT 31.9 {mg/g_CRE} (Abnormal) MICROALBUMIN,UR 31.7 mg/L (Normal) UR CREAT 99.40 mg/dL (Normal) :35 Thyroid Stim Hormone (TSH) Comments: [facility] [address] [place], [address] TSH 1.05 {uIU/mL} (Normal) Range: 0.358-3.74 :35 Urinalysis, Complete Comments: How was Urine Obtained? CLEAN [facility] [address] [place], [address] MUCUS, URINE 0 SEEN {/hpf} [...] COLOR Yellow (Normal) :48 HgA1C , Office (15820) HgA1C , Office 5.2 % (Normal) Range: 4.6 - 7.1 :48 Blood Glucose , Office (05402) Blood Glucose , Office 114 (Normal) 13-Ghi-125564:03 MRSA/SAID SCREEN Comments: [facility] [address] [place], [address] MRSA+SAID SCRN See Note (Normal) Comments: MRSA/SAID SCRNS. AUREUS S. aureus NegativeMRSA MRSA Negative :13 CBC W/Diff, Automated Comments: Test performed at:[facility] [address] [place] [address] Absolute Lymph 1.57 {X10_3/ul} (Normal) [...] Profil Comments: Test performed at:[facility] Asz[address]odoiw5621 [place] [address] GAP 4 (Abnormal) Range: 5-15 [...] Profile Comments: Test performed at:[facility] [address] [place] [address] VLDL 35 mg/dL (Normal) Range: [...] UR Comments: Test performed at:[facility] Xyxxnxetjt7221 [facility] [place] [address] MALB:CREAT 5.0 {mg/g_CRE} (Normal) MICROALBUMIN,UR 5.2 mg/L (Normal) UR CREAT 89.50 mg/dL (Normal) :13 Thyroid Stim Hormone (TSH) Comments: Test performed at:[facility] [address] [place] [address] TSH 0.97 {uIU/mL} (Normal) Range: 0.358-3.74 :13 Urinalysis, Routine (Dipstick) Comments: How was Urine Obtained? CLEAN CATCHTest performed at:[facility] Xujzjwnjoe5262 [facility] [place] [address] LEUK ESTERASE Negative /ul (Normal) OCCULT BLOOD-UR Negative /ul (Normal) NITRITE UR Negative (Normal) UROBILI Normal mg/dL (Normal) PROT DIPSTX Negative mg/dL (Normal) pH UR 6.0 (Normal) Range: 5.0 - 8.0 SP.GR. DIPSTX 1.015 (Normal) Range: 1.002-1.030 KETONE UR Negative mg/dL (Normal) BILIRUBIN URINE Negative mg/dL (Normal) GLUCOSE, UR Normal mg/dL (Normal) CLARITY Clear (Normal) COLOR Yellow (Normal) :35 HgA1C , Office (39741) HgA1C , Office 5.7 % (Normal) Range: 4.6 - 7.1 :35 Blood Glucose , Office (63788) Blood Glucose , Office 111 (Normal) :40 Miscellaneous Lab Procedure Comments: Comments: DRUG SCREEN [id number]) Ordered: DRUG SCREEN [id number] performed at:[facility] Yrysxbuifz7081 [facility] [place] [address] ; [facility] Comments: [id number] 6+OXYCODONE-BUND (ng/mL)DRUG RESULT SCREEN CUTOFF____ Amphetamines NEGAT LAB (Normal) BARI ng/mL 1000Barbiturates NEGATIVE ng/mL 200Benzodiazepines NEGATIVE ng/mL 200Cannabinoid NEGATIVE ng/mL 20Cocaine (Metab) NEG TEST ATIVE ng/mL 300Opiates NEGATIVE ng/mL 300 Opiates test includes Codeine, Morphine, Hydromorphone, Hydrocodone.Oxycodone/Oxymorphone,Urine NEGATIVE ng/mL 300 Test includes Oxydodone and Oxymorphone. TESTING PERFORMED AT [facility]. ORIGINAL REPORT ON FILE IN LAB CONTAINS ADDITIONAL TEST SITE INFORMATIO N. 1-Pxc-671386:40 Urine Drug Screen (VISTA) Comments: Comments: DRUG SCREEN [id number] of Drugs Taken or Suspected? .Test performed at:[facility] [address] [place] [address] THC NEGATIVE (Normal) PCP NEGATIVE [...] TESTING MUST BE ORDERED SEPARATELY. USE TESTMNEMONIC: [facility] :25 Vitamin D,25 Hydroxy Comments: Has pt arrived? YTest performed at:[facility] Urluzomtfl6692 [facility] [place] [address] Vitamin D 25-OH 38.2 ng/mL (Normal) Comments: Vitamin D 25(OH) Status Range Deficiency <20 ng/mL (50nmol/L) Insuffciency 20 - 30 ng/mL (50 - 75 nmol/L) Sufficiency 30 - 100 ng/mL (75 - 250 nmol/L) Toxicity >100 ng/mL (>250 nmol/L) :24 Urinalysis, Routine (Dipstick) Comments: Has pt arrived? YHow was Urine Obtained? CLEAN CATCHTest performed at:[facility] Veglyhdxnc2266 [place] [address] LEUK ESTERASE Negative /ul (Normal) [...] pt arrived? YTest performed at:[facility] [address] [place] [address] GAP 5 (Normal) Range: 5-15 CO2 [...] pt arrived? YTest performed at:[facility] [address] [place] [address] VLDL 12 mg/dL (Normal) Range: 5-40 [...] pt arrived? YTest performed at:[facility] Cogbdzsgld7844 [facility] [place] [address] MALB:CREAT 4.2 {mg/g_CRE} (Normal) MICROALBUMIN,UR 5.6 mg/L (Normal) UR CREAT 131.9 mg/dL (Normal) :23 Thyroid Stim Hormone (TSH) Comments: Has pt arrived? YHas pt arrived? YTest performed at:[facility] [address] [place] [address] TSH 1.09 {uIU/mL} (Normal) Range: 0.358-3.74 :22 CBC W/Diff, Automated Comments: Has pt arrived? YTest performed at:[facility] Yeythcejri8203 [facility] [place], [place] [address] Absolute Lymph 1.37 {X10_3/ul} (Normal) Range: 0.83-4.51 [...] (Abnormal) Range: 4.4-11.0 :54 HgA1C , Office (30980) HgA1C , Office 5.8 % (Normal) Range: 4.6 - 7.1 :02 Basic Metabolic Profile (BMP) Comments: ADDED BMPTest performed at:[facility] Ubhowkupif3315 [facility] [place] [address] GAP 6 (Normal) Range: 5-15 [...] Profile Comments: Test performed at:[facility] [address]wv[address] [place] [address] VLDL 96 mg/dL (Abnormal) Range: [...] Profile Comments: Test performed at:[facility] [address]whu[address] [place] [address] D BILI 0.10 mg/dL (Normal) [...] performed using the TPSA assay method for the[facility] chemistry system. Values obtained with differentassay methods [...] UCOL Yellow (Normal) :25 HgA1C , Office (42982) HgA1C , Office 5.8 % (Normal) Range: 4.6 - 7.1 :10 Blood Glucose , Office (70363) Blood Glucose , Office 83 (Normal) :10 HgA1C , Office (39377) HgA1C , Office 5.7 % (Normal) Range: [...] 08/13/10 1143 Sign by: JESS HENDRICKS MD 02-Ksm-351979:21 COMPLETE UA BACTERIA 0 SEEN {/hpf} (Normal) [...] NEGATIVE 0.06 - 0.59 AT RISK OF HI > OR = 0.60 SUGGEST HI :52 COMP METABOLIC Comments: Please Note: TROPONIN [...] 7-18 GLU 98 mg/dL (Normal) Range: 70-110 :21 LIPID Comments: appt 07/24/10 VLDL 33 mg/dL [...] 200-240 mg/dL Borderline >240 mg/dL High Risk 3-Rbo-338252:52 KIDNEY Radiology Report See Note (Normal) Comments: [...] by ITS IMPORTSign by Osvaldo Manuel on 05/16/10 0732 Sign by: Osvaldo Manuel :23 CBCD,SMEAR DIFF [...] CHOL 127 mg/dL (Normal) Comments: <200 mg/dL Mhizdxwue813-509 mg/dL Borderline>240 mg/dL High Risk :10 CBCD [...] CHOL 146 mg/dL (Normal) Comments: <200 mg/dL Nwctubmpg898-436 mg/dL Borderline>240 mg/dL High Risk TRIG 166 [...] Report See Note (Normal) Comments: Exam Number: [id number] CLINICAL: Fatigue MRI BRAIN WITH AND WITHOUT [...] of remotetrauma. Reported By: HUEY ERAZO M.D. 02-Qdz-631892:19 CHIQUI-D [id number] CHIQUI-DIRECT SeeNote (Normal) Comments: Result: NegativePerformed At: [facility] Hndshe50[address] [place], [place] [id number] :07 B12/FOLATES FOLATES 26.50 ng/mL (Abnormal) Range: 3.1-17.5 VITAMIN B12 1068 pg/mL (Normal) Range: 254-1320 51-Prt-789443:07 RHEUMATOID FAC < 10 {IU/mL} (Normal) :07 [...] 6.4-8.2 GLU 75 mg/dL (Normal) Range: 70-110 34-Era-068679:28 ESR SED RATE 6 mm/h (Normal) Range: 0-20 52-Ulh-229911:28 CBCD BASO% 0.5 % (Normal) Range: 0-1 [...] 4.6-6.2 WBC 9.4 K/mm3 (Normal) Range: 4.4-11.0 4-Svm-517480:18 CULTURE, THROAT See Note (Normal) Comments: Normal throat susanne isolated. No beta-hemolyticstreptococcus isolated. 14-Apr-20098:48 Rapid Strep Test, Office (37483) Rapid Strep Test, Office Negative (Normal) 2-Cya-815495:59 CTA NECK W/WO CONTRAST Radiology Report See Note (Normal) Comments: Exam Number: [id number] HISTORYCarotid stenosis. Abnormal carotid artery ultrasound. CT [...] K 4.5 mmol/L Range: 3.5-5.1 0:00 (Normal) 16-Sgs-600852:19 BMP BUN 35 mg/dL (Abnormal) Range: 7-18 [...] 254-1320 :43 FECAL OCCULT- Tubes sent home (95477) FECAL OCCULT HGB ASSAY, QUAL, 1-3 SIMULTANEOU neg (Normal) :12 Rapid Flu (06738 x 2) Comments: done BC INFLUENZA IMMUNOASSY [...] was performed using the TPSA method for the[facility] chemistry system.Values obtained with different assay [...] GLU 2 HR GLU GTT-2 HOUR from 918:P19208H. Range: 70-120 :05 GLU GTT-1 HOUR 183 mg/dL (Abnormal) Comments: 2HR GTT GLU 1 HR GLU GTT-1 HOUR from 918:W07213Z. Range: 120-170 :31 GLU GTT-30 min. 170 mg/dL (Normal) Comments: 2HR GTT GLU 1/2 HR GLU GTT-30 min. from 918:Z98334B. Range: 110-170 :00 D BILI 0.09 mg/dL [...] Comments: 2HR GTT FASTING GLU GTT-FASTING from 0919:H01863X. Range: 70-110 Comments: GLUCOSE TOLERANCE TEST Reference [...] was performed using the TPSA method for the[employer] chemistry system.Values obtained with different assay methods [...] disease Coronary artery disease, non-occlusive : Reviewed Night Custodian Letter Indication: Coronary artery disease, non-occlusive BMI 40.0-44.9, adult : Eprescribed prescriptions (G8553) Indication: BMI 40.0-44.9, adult Impaired fasting glucose : Follow up in 4 months Indication: Impaired fasting glucose Coronary artery disease, non-occlusive : Reviewed Night Custodian Letter Indication: Coronary artery disease, non-occlusive Hypertension [...] controlled Coronary artery disease, non-occlusive : Reviewed Night Custodian Letter Indication: Coronary artery disease, non-occlusive Hypertension [...] glucose Coronary artery disease, non-occlusive : Reviewed Night Custodian Letter Indication: Coronary artery disease, non-occlusive 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 Indication: Hypertension with heart disease Impaired fasting glucose : *Diabetes Education Indication: Impaired fasting glucose Nonsmoker : Eprescribed prescriptions (G8553) Indication: Nonsmoker Depression, acute : Reviewed Night Custodian Letter Indication: Depression, acute Other chronic pain : Reviewed Lab Indication: Other chronic pain Depression, acute : Follow up in 2 weeks Indication: Depression, acute Accidental fall, initial encounter : Follow up in 1 week Indication: Accidental fall, initial encounter Depression : Reviewed Lab Indication: Depression Depression : Reviewed Diagnostic Tests Indication: Depression Depression : Reviewed Night Custodian Letter Indication: Depression Cellulitis : Eprescribed prescriptions (G8553) Indication: Cellulitis Cellulitis : Follow up in 1 week Indication: Cellulitis Nonsmoker : Eprescribed prescriptions (G8553) Indication: Nonsmoker Hypertension with heart disease : Reviewed Lab Indication: Hypertension with heart disease Impaired fasting glucose : Follow up in 4 months Indication: Impaired fasting glucose Hypertension with heart disease : Reviewed Night Custodian Letter Indication: Hypertension with heart disease Hypertension [...] artery disease Coronary artery disease : Reviewed Night Custodian Letter Indication: Coronary artery disease Carotid stenosis : Reviewed Night Custodian Letter Indication: Carotid stenosis Hypercholesterolemia : Cholesterol [...] artery disease Coronary artery disease : Reviewed Night Custodian Letter: sees Dr Maria Indication: Coronary artery disease Impaired fasting glucose : Eprescribed prescriptions (G8553) Indication: Impaired fasting glucose Hypercholesterolemia : Cholesterol mgmt Indication: Hypercholesterolemia Coronary artery disease : Continue Current Prescription(s) Indication: Coronary artery disease Coronary artery disease : Reviewed Night Custodian Letter Indication: Coronary artery disease 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 Indication: Hypertension with heart disease Hypertension with heart disease : Follow up in 4 months Indication: Hypertension with heart disease Impaired fasting glucose : Eprescribed prescriptions (G8553) Indication: Impaired fasting glucose Coronary artery disease : Reviewed Night Custodian Letter Indication: Coronary artery disease Impaired fasting [...] Indication: Hypercholesterolemia Coronary artery disease : Reviewed Night Custodian Letter Indication: Coronary artery disease Impaired fasting [...] artery disease Planned Observations HgA1C , Office (42829)Indication: Impaired fasting glucose On: 43-Dov-438603:57 Request TSH (97124)Indication: Atrial fibrillation, controlled On: :30 Request URINALYSIS, W/ MICRO (09525)Indication: Hypertension with heart disease On: :30 Request MICROALBUMIN: CREATININE RATIO (78987) AND (17498)Indication: Hypertension with heart disease On: :30 Request METABOLIC PANEL, COMPREHENSIVE (89307)Indication: Hypertension with heart disease On: :30 Request LIPID PANEL (26793)Indication: Coronary artery disease, non-occlusive On: :30 Request CBC W/AUTO DIFF WBC (07459)Indication: Hypertension with heart disease On: :29 Request VITAMIN B-12 (CYANOCOBALAMIN) (15472)Indication: Vitamin B12 deficiency On: :29 Request CALCIFIDIOL (89744) VIT D 25Indication: Vitamin D deficiency On: :29 Request VITAMIN B-12 (CYANOCOBALAMIN) (47951)Indication: Vitamin B12 deficiency On: :36 Request CALCIFIDIOL (80894) VIT D 25Indication: Vitamin D deficiency On: :35 Request TSH (38998)Indication: Impaired fasting glucose On: :34 Request URINALYSIS, W/ MICRO (17237)Indication: Hypertension with heart disease On: :34 Request MICROALBUMIN: CREATININE RATIO (36980) AND (14577)Indication: Hypertension with heart disease On: :34 Request METABOLIC PANEL, COMPREHENSIVE (78039)Indication: Hypertension with heart disease On: :34 Request LIPID PANEL (22506)Indication: Hypercholesterolemia On: :34 Request CBC W/AUTO DIFF WBC (10917)Indication: Hypertension with heart disease On: :34 Request RIBOFLAVIN (B-2) (42369)Indication: Drug intoxication with delirium On: 13-Wit-294217:09 Request LIPID PANEL (80222)Indication: Hypercholesterolemia On: :35 Request VITAMIN B-12 (CYANOCOBALAMIN) (03925)Indication: Vitamin B12 deficiency On: :28 Request CALCIFIDIOL (74785) VIT D 25Indication: Vitamin D deficiency On: :27 Request MAGNESIUM (38912)Indication: Hypermagnesemia On: :27 Request FECAL OCCULT- Tubes sent home (14223)Indication: Encounter for screening for malignant neoplasm of colon (Renamed from Special screening for malignant neoplasms, colon) On: 0-Sdq-492349:03 Request PSA (PROSTATE SPECIFIC ANTIGEN) (V76.44)Indication: Encounter for screening for malignant neoplasm of prostate (Renamed from Screening for prostate cancer) On: 4-Rmt-644182:03 Request TSH (13775)Indication: Impaired fasting glucose On: :22 Request URINALYSIS, W/ MICRO (87971)Indication: Impaired fasting glucose On: 07-Bqi-11608:22 Request MICROALBUMIN: CREATININE RATIO (39519) AND (29518)Indication: Impaired fasting glucose On: :22 Request METABOLIC PANEL, COMPREHENSIVE (20230)Indication: Impaired fasting glucose On: :21 Request LIPID PANEL (57654)Indication: Hypercholesterolemia On: : Request CBC W/AUTO DIFF WBC (01797)Indication: Impaired fasting glucose On: :21 Request CALCIFIDIOL (00701) VIT D 25Indication: Vitamin D deficiency On: : Request HEPATIC FUNCTION PANEL (07910)Indication: Elevated liver enzymes On: :29 Request METABOLIC PANEL, COMPREHENSIVE (50251)Indication: Dizzy On: :54 Request CBC W/AUTO DIFF WBC (40071)Indication: Dizzy On: :54 Request FECAL OCCULT- Tubes sent home (24155)Indication: Melena On: :52 Request CALCIFIDIOL (39876) VIT D 25Indication: Dysthymic On: :52 Request TSH (78804)Indication: Hypercholesterolemia On: :52 Request URINALYSIS, W/ MICRO (84526)Indication: Hypertension with heart disease On: 75-Pyq-658633:52 Request MICROALBUMIN: CREATININE RATIO (36893) AND (64094)Indication: Hypertension with heart disease On: 52-Qmk-790169:52 Request METABOLIC PANEL, COMPREHENSIVE (16545)Indication: Hypertension with heart disease On: 85-Zic-853639:52 Request LIPID PANEL (98454)Indication: Hypercholesterolemia On: :52 Request CBC W/AUTO DIFF WBC (33612)Indication: Hypertension with heart disease On: 44-Iyh-291227:51 Request TSH (82482)Indication: Impaired fasting glucose On: :45 Request URINALYSIS, W/ MICRO (46854)Indication: Impaired fasting glucose On: :45 Request MICROALBUMIN: CREATININE RATIO (17108) AND (63708)Indication: Impaired fasting glucose On: :45 Request METABOLIC PANEL, COMPREHENSIVE (56124)Indication: Impaired fasting glucose On: :45 Request LIPID PANEL (32988)Indication: Impaired fasting glucose On: :45 Request CBC W/AUTO DIFF WBC (10126)Indication: Impaired fasting glucose On: :45 Request CALCIFIDIOL (38808) VIT D 25Indication: Impaired fasting glucose On: 39-Lsj-90486:55 Request LIPID PANEL (16719)Indication: Hypertension On: :50 Request TSH (85739)Indication: Impaired fasting glucose On: :50 Request MICROALBUMIN: CREATININE RATIO (92882) AND (29080)Indication: Hypertension On: :50 Request METABOLIC PANEL, COMPREHENSIVE (06381)Indication: Hypertension On: :50 Request MICROALBUMIN: CREATININE RATIO (85057) AND (67206)Indication: Hypertension On: :38 Request URINALYSIS (03524)Indication: Hypertension On: :36 Request CBC WITH MANUAL DIFF (45035)Indication: Hypertension On: :36 Request Metabolic Panel, Comprehensive (96087)Indication: Hypertension On: :36 Request Lipid Panel (79160)Indication: Hypercholesterolemia On: :36 Request MICROALBUMIN: CREATININE RATIO (10866) AND (65531)Indication: Hypertension On: 75-Cad-888609:57 Request URINALYSIS (28238)Indication: Hypertension On: 97-Hzx-566471:57 Request CBC WITH MANUAL DIFF (41783)Indication: Hypertension On: 55-Txa-376403:56 Request Metabolic Panel, Comprehensive (34392)Indication: Hypertension On: 09-Tse-751499:56 Request CALCIFEDIOL (01792)Indication: Hypertension On: 81-Tmb-886445:56 Request TSH (35261)Indication: Hypertension On: 94-Yhq-298838:56 Request Lipid Panel (21896)Indication: Hypercholesterolemia On: 10-Gou-484206:56 Request Lipid Panel (08737)Indication: Hypercholesterolemia On: 23-Cxm-850611:13 Request URINALYSIS, W/ MICRO (24234)Indication: Hypertension On: 1-Lor-306530:02 Request MICROALBUMIN: CREATININE RATIO (70449) AND (09667)Indication: Impaired fasting glucose On: 5-Hig-656244:02 Request CBC W/AUTO DIFF WBC (24653)Indication: Impaired fasting glucose On: 0-Qyi-770096:02 Request METABOLIC PANEL, COMPREHENSIVE (97306)Indication: Impaired fasting glucose On: 9-Lap-453009: Request PSA (PROSTATE SPECIFIC ANTIGEN) (V76.44)Indication: Benign prostatic hyperplasia with urinary obstruction and other lower urinary tract symptoms On: 15-Jan-20149:55 Request CREATINE KINASE TOTAL (74297)Indication: SOB (shortness of breath) on exertion On: :32 Request Comments: stat D-Dimer (92797)Indication: SOB (shortness of breath) on exertion On: :32 Request CBC (Auto) (65720)Indication: SOB (shortness of breath) on exertion On: :32 Request Troponin I (88631)Indication: SOB (shortness of breath) on exertion On: :31 Request CPK MB FRACTION (64060)Indication: SOB (shortness of breath) on exertion On: :31 Request MICROALBUMIN: CREATININE RATIO (32263) AND (93115)Indication: Impaired fasting glucose On: :10 Request CBC WITH MANUAL DIFF (00516)Indication: Hypertension On: :04 Request LIPID PANEL (74629)Indication: Hypercholesterolemia On: :04 Request METABOLIC PANEL, COMPREHENSIVE (03662)Indication: Hypertension On: :04 Request CBC WITH MANUAL DIFF (66466)Indication: Hypertension On: :28 Request URINALYSIS, W/ MICRO (44544)Indication: Hypertension On: :28 Request TSH (62349)Indication: Dysthymic On: :28 Request PSA (PROSTATE SPECIFIC ANTIGEN) (V76.44)Indication: Benign prostatic hyperplasia with urinary obstruction and other lower urinary tract symptoms On: : Request LIPID PANEL (29071)Indication: Hypercholesterolemia On: : Request METABOLIC PANEL, COMPREHENSIVE (79950)Indication: Hypertension On: : Request ASSAY, TROPONIN, QUANTITATIVE (aka Troponin I) (71574)Indication: SOB (shortness of breath) on exertion On: 52-Yxi-464659:08 Request Comments: stat D-Dimer (07390)Indication: SOB (shortness of breath) on exertion On: 88-Ydp-541820:08 Request Comments: stat URINALYSIS, W/ MICRO (88289)Indication: Edema On: :06 Request TSH (22570)Indication: Edema On: : Request METABOLIC PANEL, COMPREHENSIVE (35843)Indication: Edema On: :06 Request CBC WITH MANUAL DIFF (29473)Indication: Edema On: : Request URINE BERTHA CULTURE-SUKHWINDER COL COUNT (35451)Indication: PYELONEPHRITIS, ACUTE NOS On: :25 Request LIPID PANEL (41515)Indication: Hypercholesterolemia On: :12 Request METABOLIC PANEL, COMPREHENSIVE (72049)Indication: Hypertension On: :12 Request PSA (PROSTATE SPECIFIC ANTIGEN) (V76.44)Indication: Benign prostatic hyperplasia with urinary obstruction and other lower urinary tract symptoms On: 42-Jvw-79268:33 Request URINALYSIS, W/ MICRO ([id number])Indication: Hypertension On: :33 Request CBC WITH MANUAL DIFF ([id number])Indication: Hypertension On: :33 Request METABOLIC PANEL, COMPREHENSIVE (30055)Indication: Hypertension On: 50-Okp-55009:32 Request LIPID PANEL (85515)Indication: Hypercholesterolemia On: :32 Request CBC WITH MANUAL DIFF ([id number])Indication: Hypertension On: 9-Jag-848305:14 Request METABOLIC PANEL, COMPREHENSIVE ([id number])Indication: Hypertension On: 4-Skn-113866:14 Request LIPID PANEL ([id number])Indication: Hypercholesterolemia On: 9-Oqb-862979:13 Request CBC, PLATELETS & AUT DIFF ([id number])Indication: Anemia, unspecified On: 5-Pue-270563:38 Request Comments: Repeat 3wks beginning of June Renal function Panel ([id number])Indication: Abnormal blood chemistry On: 4-Wwz-930965:35 Request Comments: repeat 3 wks Beginning of June Folate (39007)Indication: Fatigue On: :23 Request VITAMIN B-12 (CYANOCOBALAMIN) (27235)Indication: Fatigue On: :23 Request TSH ([id number])Indication: Fatigue On: :23 Request SED RATE ERYTHROCYTE (62791)Indication: Fatigue On: :23 Request RHEUMATOID FACTOR-QUANT (73995)Indication: Fatigue On: : Request METABOLIC PANEL, COMPREHENSIVE ([id number])Indication: Fatigue On: :23 Request C-REACTIVE PROTEIN (76788)Indication: Fatigue On: :23 Request CBC (AUTO) (73096)Indication: Fatigue On: : Request CHIQUI (ANTINUCLEAR ANTIBODY) (57081)Indication: Fatigue On: : Request BERTHA CULTURE-OTHER ([id number])Indication: Pharyngitis, acute On: :48 Request TSH (10172)Indication: Dysthymic On: :48 Request PSA (PROSTATE SPECIFIC ANTIGEN) (V76.44)Indication: Benign prostatic hyperplasia with urinary obstruction and other lower urinary tract symptoms On: :48 Request METABOLIC PANEL, COMPREHENSIVE (47552)Indication: Hypertension On: :46 Request LIPID PANEL ([id number])Indication: Hypercholesterolemia On: :46 Request CBC WITH MANUAL DIFF ([id number])Indication: Anemia, unspecified On: :46 Request Metabolic Panel, Basic ([id number])Indication: Edema On: :44 Request FOLIC ACID SERUM (30627)Indication: Anemia, unspecified On: :43 Request VITAMIN B-12 (CYANOCOBALAMIN) (50941)Indication: Anemia, unspecified On: :43 Request RETICULOCYTE COUNT MANUL (75939)Indication: Anemia, unspecified On: :43 Request LDH (LD) (LACTATE DEHYDROGENASE) (28073)Indication: Anemia, unspecified On: :43 Request IRON BINDING CAPACITY (TIBC) (24644)Indication: Anemia, unspecified On: :43 Request FERRITIN (37414)Indication: Anemia, unspecified On: :43 Request IRON ([id number])Indication: Anemia, unspecified On: :43 Request CBC WITH MANUAL DIFF (34092)Indication: Edema On: :40 Request LIPID PANEL (10728)Indication: Hypercholesterolemia On: :36 Request URINALYSIS W/O MICRO (18742)Indication: Hypertension On: :36 Request TSH ([id number])Indication: Hypertension On: :36 Request METABOLIC PANEL, COMPREHENSIVE (43616)Indication: Hypertension On: :36 Request CBC WITH MANUAL DIFF ([id number])Indication: Hypertension On: :36 Request PSA (PROSTATE SPECIFIC ANTIGEN) (V76.44)Indication: Benign prostatic hyperplasia with urinary obstruction and other lower urinary tract symptoms On: :36 Request METABOLIC PANEL, COMPREHENSIVE (65553)Indication: Hypertension On: :27 Request LIPID PANEL (75423)Indication: Hypercholesterolemia On: 72-Dgd-06451:26 Request HEPATIC FUNCTION PANEL (88284)Indication: Hypercholesterolemia On: :26 Request HEPATIC FUNCTION PANEL (62895)Indication: Hypercholesterolemia On: :52 Request LIPID PANEL (62754)Indication: Hypercholesterolemia On: :52 Request PSA (PROSTATE SPECIFIC ANTIGEN) (V76.44)Indication: Benign prostatic hyperplasia with urinary obstruction and other lower urinary tract symptoms On: 95-Fdp-68574:52 Request URINALYSIS W/O MICRO (85438)Indication: Hypertension On: 72-Wpu-454935:23 Request TSH ([id number])Indication: Hypertension On: 83-Sog-757658:23 Request METABOLIC PANEL, COMPREHENSIVE ([id number])Indication: Hypertension On: 21-Knt-838545:23 Request CBC WITH MANUAL DIFF ([id number])Indication: Hypertension On: 60-Ivp-148799:22 Request LIPID PANEL (64053)Indication: Hypercholesterolemia On: 98-Bcv-271739:17 Request HEPATIC FUNCTION PANEL ([id number])Indication: Hypercholesterolemia On: 60-Hro-751925:17 Request METABOLIC PANEL, COMPREHENSIVE ([id number])Indication: Hypertension On: 45-Kny-531749:50 Request VITAMIN B-12 (CYANOCOBALAMIN) ([id number])Indication: Fatigue On: :03 Request METABOLIC PANEL, COMPREHENSIVE ([id number])Indication: Fatigue On: :03 Request GLUCOSE TOLERANCE TEST (GTT) 2 hour ([id number])Indication: Fatigue On: :02 Request LIPID PANEL ([id number])Indication: Hypercholesterolemia On: :10 Request Comments: please send to Dr Shore PSA (PROSTATE SPECIFIC ANTIGEN) ([id number])Indication: Benign prostatic hyperplasia with urinary obstruction and other lower urinary tract symptoms On: :10 Request MICROALBUMIN URINE QUANT ([id number])Indication: Hypertension On: :10 Request URINALYSIS W/O MICRO ([id number])Indication: Hypertension On: :10 Request TSH ([id number])Indication: Dysthymic On: :10 Request METABOLIC PANEL, COMPREHENSIVE ([id number])Indication: Hypertension On: :10 Request CBC WITH MANUAL DIFF ([id number])Indication: Hypertension On: :10 Request CBC WITH MANUAL DIFF ([id number])Indication: Hypertension On: :53 Request METABOLIC PANEL, COMPREHENSIVE ([id number])Indication: Hypertension On: :53 Request URINALYSIS W/O MICRO (65501)Indication: Hypertension On: :53 Request TSH ([id number])Indication: Hypertension On: :53 Request LIPID PANEL ([id number])Indication: Hypercholesterolemia On: :53 Request Planned Procedures Flu Vaccine (Quadrivalent) On: 14-Feb-2018 Intent 66401Hd: Jazz Rodas DO Comments: Lot #[id number]-L dltd, IMDose prefilled syringegiven by: CManchkVIS reviewed and ABN signed Jazz Rodas DO ELECTROCARDIOGRAM, COMPLETE On: 27-Oct-2017 Intent (ECG) (53671)By: Irvin LAURA, Comments: nsr no acute chg Jazz Ballard DO PNEUM VAC ADLT/IMUMNOSPR, On: 17-Dec-2016 Intent SBC/INTRM (95619)By: Irvin Comments: Lot:[id number]:05/19/18Dose:0.5mgRoute:imSite:l armGiven By:JKMVIS signed Jazz LAURA DO, Kathleen ZBIP-RU-NGNX BEHAVIORAL On: 17-Dec-2016 Intent COUNSELING FOR OBESITY, 15 MINUTES (G0447)By: Jazz Rodas DO, DO, Kathleen INTENSIVE BEHAVIORAL THERAPY On: 17-Dec-2016 Intent TO REDUCE CARDIOVASCULAR DISEASE RISK, INDIVIDUAL, YQNT-SS-DGYL, ANNUAL, 15 MINUTES (G0446)By: Jazz Rodas DO, DO, Kathleen Flu Vaccine (Quadrivalent) On: 10-Dec-2016 Intent 56834Xu: Jazz Rodas DO Comments: lot: [id number]: 09/26/17ite/route: L jessika, IMamt: 0.5mlVIS and ABN signed when applicableChelsea, EQUESTRIAN TRAINER Jazz Rodas DO ELECTROCARDIOGRAM, COMPLETE On: 04-Aug-2016 Intent (ECG) (94389)By: Irvin LAURA, Comments: sinus yoko - no acute chg Jazz Ballard DO Venous Doppler - LeftBy: Avis On: 23-Apr-2016 Intent Raya PERERA Comments: L lower extremity US DOPPLER VEIN OF EXTREMITY On: 21-Apr-2016 Intent (49957)By: Raya Albarran MD Comments: US doppler right [...] wound centre and Raya Albarran US GROIN (06046)By: Avis PERERA, On: 13-Apr-2016 Intent Raya Comments: US soft tissue of left hip, Rule out abcess. Flu Vaccine (Quadrivalent) On: 12-Dec-2015 Intent 66909Pq: Jazz Rodas DO Comments: lot [id number] 10/08/16- R arm Jazz Rodas DO INTENSIVE BEHAVIORAL THERAPY On: 12-Dec-2015 Intent TO REDUCE CARDIOVASCULAR DISEASE RISK, INDIVIDUAL, OPQY-VL-HGSS, ANNUAL, 15 MINUTES (G0446)By: Jazz Rodas DO, DO, Kathleen ECRC-XD-CXFZ BEHAVIORAL On: 12-Dec-2015 Intent COUNSELING FOR OBESITY, [...] US DOPPLER CAROTID BILATERAL On: 25-Sep-2015 Intent ([id number])By: Jazz Rodas DO, DO, Kathleen Cartoid DopplerBy: Irvin LAURA, On: 30-Jul-2015 Intent Jazz Ballard DO Flu Vaccine (Quadrivalent) On: 15-Jan-2015 Intent 41749Fg: Jazz Rodas DO Comments: Lot:[id number]:10/09/15Dose:0.5mLRoute:IMSite:L DltdGiven By:YVETTE signed Jazz Rodas DO EKG (33433)By: Irvin LAURA, On: 13-Jun-2014 Intent Jazz Ballard DO FRML-EK-UAUH BEHAVIORAL On: 06-Mar-2014 Intent COUNSELING FOR OBESITY, 15 MINUTES (G0447)By: Jazz Rodas DO, DO, Kathleen Prevnar 13 (92852)By: Irvin On: 06-Mar-2014 Intent Jazz LAURA DO, Comments: lot [id number] 06/2015location L armroute imgiven by - Madisyn and/or MAMI signed Jazzfilipe Martelid DopplerBy: Blanco LAURA, On: 15-Jan-2014 Intent Rupinder A FLU VAC, SPLIT, >3 YEARS, On: 15-Jan-2014 Intent INTRAMUSC (16219)By: Blanco LAURA, Comments: Lot #:[id number] date:12/2015Amount given:0.5mlRoute: IMSite given: left deltoidGiven by: PRECIOUS Serna ADMINISTRATION OF INFLUENZA On: 15-Jan-2014 Intent VIRUS VACCINE (G0008)By: Rupinder Encarnacion DO FLU VAC, SPLIT, >3 YEARS, On: 13-Feb-2013 Intent INTRAMUSC (50592)By: Blanco LAURA, Comments: Lot:[id number]:Dose:0.5mLRoute:IMSite:L DltdGiven By:YVETTE signed Rupinder A IMMUNIZ ADMNIN, 1 VAC, On: 13-Feb-2013 Intent SNGL/COMBO (22694)By: Perla Ruano IMMUNIZ ADMNIN, 1 VAC, On: 08-Feb-2012 Intent SNGL/COMBO (22916)By: Chanel Alamo CNP FLU VAC, SPLIT, >3 YEARS, On: 08-Feb-2012 Intent INTRAMUSC (82570)By: Chanel Alamo CNP DANA (Ankle Brachial Index) On: 14-Jul-2011 Intent (84525)By: Nieves Masters Comments: at desk Spirometry (32108)By: Kael On: 01-Jul-2011 Intent Ling PERERA Aerosol Treatment (51463)By: On: 01-Jul-2011 Intent Ling Scruggs MD EKG (43574)By: Kael PERERA, On: 01-Jul-2011 Intent Ling Roberts DANA (Ankle Brachial Index) On: 21-May-2011 Intent (44008)By: Rupinder Encarnacion DO Cartoid DopplerBy: Blanco LAURA, On: 21-May-2011 Intent Rupinder A Comments: may FLU VAC, SPLIT, >3 YEARS, On: 10-Feb-2011 Intent INTRAMUSC (64545)By: Erik UGARTE, Comments: Lot #: [id number] date: 09/20Amount given: 0.5 mlRoute: IMSite given: left deltoidGiven by: TORITO Gonzales IMMUNIZ ADMNIN, 1 VAC, On: 10-Feb-2011 Intent SNGL/COMBO (25598)By: Marlys Valencia RN Eprescribed prescriptions On: 24-Nov-2010 Intent (G8553)By: Rupinder Encarnacion DO Echo CompleteBy: Hluszbarry COMPUTATIONAL MATHEMATICIAN, On: 04-Aug-2010 Intent Mera Pulse Oximetry (56803)By: Blanco On: 24-Jul-2010 Intent Lavelle LAURAa A Comments: 96 Bio Z (00578)By: Blanco LAURA, On: 24-Jul-2010 Intent Rupinder A Comments: good cardiac output and svr- thoracic fluid ok EKG (61377)By: Rupinder Encarnacion DO On: 24-Jul-2010 Intent A Comments: ekg showed normal sinus rhythym, normal axis, no acute st/t wave changes Echo CompleteBy: Blanco LAURA, On: 24-Jul-2010 Intent Rpuinder A DANA (Ankle Brachial Index) On: 24-Jul-2010 Intent ([id number])By: Rupinder Encarnacion DO Cartoid DopplerBy: Blanco LAURA, On: 24-Jul-2010 Intent Rupnider A Radiology - Chest- PA and On: 24-Jul-2010 Intent LatBy: Lavelle Encarnacion DOa A Radiology - Chest- PA and On: 09-Jul-2010 Intent LatBy: Irvin DOJazz Irvin DO, Jazz Ultrasound - RenalBy: Irvin On: 14-May-2010 Intent Jazz LAURA Irvin DO, Jazz Cartoid DopplerBy: Blanco LAURA, On: 25-Mar-2010 Intent Rupinder A DANA (Ankle Brachial Index) On: 25-Mar-2010 Intent (05962)By: Rupinder Encarnacion DO IMMUNIZ ADMNIN, 1 VAC, On: 15-Jan-2010 Intent SNGL/COMBO (57546)By: Erik UGARTE, Comments: Lot #: [id number] date: mount given: 0.5 mlRoute: IMSite given: left deltoidGiven by: TORITO Huerta FLU VACCINE NO PRESERV 3 & > On: 15-Jan-2010 Intent ([id number])By: Marlys Valencia RN Cartoid DopplerBy: Blanco LAURA, On: 26-Nov-2009 Intent Rupinder A Comments: sept TDAP VACCINE >7 IM (71024)By: On: 22-Sep-2009 Intent Mera Mullen LPN Comments: Lot #[id number]-6/24/12Site-left deltoidgiven by:NATHALIA Holter Monitor 24 hrsBy: Walker On: 21-Apr-2009 Intent Chanel LOU ELECTROCARDIOGRAM, COMPLETE On: 21-Apr-2009 Intent (ECG) (46061)By: Chanel Alamo CNP FLU VAC, SPLIT, >3 YEARS, On: 07-Jan-2009 Intent INTRAMUSC (76860)By: Harpreet, Comments: Lot #:[id number] date:mount given:0.5mlRoute: IMSite given:left deltGiven by: PRECIOUS Serna IMMUNIZ ADMNIN, 1 VAC, On: 07-Jan-2009 Intent SNGL/COMBO (81878)By: Emili Mullins DANA (Ankle Brachial Index) On: 25-Nov-2008 Intent (31274)By: Uma Altamirano Comments: done>Wf. pt aware. normal findings on both sides. DANA (Ankle Brachial Index) On: 01-Oct-2008 Intent (84308)By: Rupinder Encarnacion DO Cartoid DopplerBy: Blanco LAURA, On: 01-Oct-2008 Intent Rupinder A Comments: sept Pulse Oximetry (47247)By: On: 03-Jul-2008 Intent Chanel Alamo CNP Comments: done BC Aerosol Treatment (96382)By: On: 03-Jul-2008 Intent Chanel Alamo CNP Comments: done BC FLU VAC, SPLIT, >3 YEARS, On: 15-Mar-2008 Intent INTRAMUSC (23844)By: Alicia Allen ADMINISTRATION OF INFLUENZA On: 15-Mar-2008 Intent VIRUS VACCINE (G0008)By: Comments: inj given no complicationslot:[id number]:10/08/08site left deltoddose:0.5mlkatAlicia Easton EKG (78666)By: Rupinder Encarnacion DO On: 27-Dec-2007 Intent A Comments: ekg- with sinus with lvh - left axisd deviation Cartoid DopplerBy: Blanco LAURA, On: 27-Dec-2007 Intent Rupinder A DANA (Ankle Brachial Index) On: 23-Aug-2007 Intent (33632)By: Xiao Busby DANA (Ankle Brachial Index) On: 08-Aug-2007 Intent (25576)By: Rupinder Encarnacion DO DANA (Ankle Brachial Index) On: 02-May-2007 Intent (76019)By: Rupinder Encarnacion DO Flu Vaccine, Split IM On: 24-Jan-2007 Intent (84120)By: Rupinder Encarnacion DO Comments: given o.5cc im in right deltoid lot#[id number] exp.10/09/07-aw Pneumovax (64360)By: Blanco LAURA, On: 24-Jan-2007 Intent Rupinder A Comments: given 0.5cc in right deltoid lot#[id number] exp. 02/20/08-aw Overnight Pulse Ox(98441)By: On: 21-Dec-2006 Intent Xiao Busby Echo CompleteBy: Blanco LAURA, On: 06-Dec-2006 Intent Rupinder A Overnight Pulse OX (76871)By: On: 06-Dec-2006 Intent Rupinder Encarnacion DO EKG (31086)By: Narciso NAIDU, On: 23-Jun-2006 Intent Peg Comments: needed to be done for a preop which is scheduled the end of the month with dr. romero DANA (Ankle Brachial Index) On: 15-Jun-2006 Intent (13717)By: Milady Jay LPN DANA (Ankle Brachial Index) On: 01-Jun-2006 Intent (96021)By: Rupinder Encarnacion DO Comments: see Mila- these needs precerted as the insurance didnt pay last time- I discussed with her DANA (Ankle Brachial Index) On: 01-Mar-2006 Intent (05908)By: Rupinder Encarnacion DO Planned Medications Vitamin B-12 [...] The patient does have durable power of elevated motorman and living will. The patient has noticed dropping activities and interests, having problems with memory than others, la ck of energy and thinking most people are better off than them. 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 care are clinical data programmer and die maker trim.Encounter Diagnosis: BMI 38.0-38.9,adult, Nonsmoker, Annual Medicare Physical [...] patient does not have durable power of elevated motorman. The patient has noticed lack of energy and thinking most people are better off than them. 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 care are clinical data programmer and other:.Encounter Diagnosis: Annual Medicare Phyiscal WITHOUT [...] in bathroom. The patient has completed the [facility] preventative measures: PSA testing (2013) and colonoscopy (2009). The patient does have durable power of elevated motorman and living will. The patient has noticed thinking most people are better off than t hem. 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 care are clinical data programmer (DR. Maria) and other: (Pain Management- Dr. [...] a day for 2 weeks- and the clinical data programmer didnt feel he needed to increase meds - just saw them in dec and heart doing well-he sees thuan for pain manaagement and hegives him lety ny for back pain working well- had [...] back. Pt is seeing Dr. Blake in [place] for this and currently getting injections and seeing chiropracter.- since injection though issues with headache mild a nd bp and sleep no chest pain has appt with cardio in may and no leg claudication- mood is good, [ADDITIONAL REASON] Follow up, Laboratory Test Results - Date: (12/4/10). Encounter Diagnosis: Hypertension (401.0), Carotid stenosis (433.10), [...] els overwhelmed- he is willing to retry rachid again and see how he doesEncounter Diagnosis: [...] End: 24-Feb-2006 14:24 Payers MedicareHumana/Supplement Jose Angel garciaor
--- OUTSIDE RECORDS SUMMARY | 2018-07-01 19:19 | XMS RPT_ITS | Continuity of Care Document ---
:1950 Author Organization [facility] Address [address] [place] [address] Phone Care Team Providers Name Role Phone Jazz Rodas DO Unavailable [facility] Unavailable [facility], [facility] Unavailable Long PROPELLER DRIVEN AIRPLANE MECHANIC, Sharonda L Unavailable Unavailable Gravius, Laila Unavailable Unavailable Slarb PROPELLER DRIVEN AIRPLANE MECHANIC, Elle Unavailable Unavailable Messenger, PROPELLER DRIVEN AIRPLANE MECHANIC Darlene Unavailable Unavailable Manchak, Giselle Unavailable Unavailable [...] : 29-Sep-2015 End : 26-Nov-2015 Inactive ZOSTAVAX, 80570IWB/0.65ML (Subcutaneous Solution Reconstituted) 1 For Solution dose [...] Visit Report Result: Comments: See Note; NOTES: [facility] [address] [place] [address] OFFICE VISIT Date of Service: 02/28/18 MR#: [id number] Acct: [id number] Name: LETHA DEUTSCH Rep #: [id number] : 1950 Provider: Hyun Iglesias Age/Sex: 67/M Location[facility] Status: Signed HPI HPI Chief Complaint: [...] Visit Reasons: PER PK, PRIOR TO SURGERY Die Presser Required: No Accompanied by: None Is patient [...] . Assessment AND Plan 1. Atherosclerosis of eagle coronary artery of eagle heart without angina pectoris I25.10 CABG 03/20/1997 [...] Code Off vis,est,level 4 Diagnoses Atherosclerosis of eagle coronary artery of eagle heart without angina pectoris I25.10 [place] vs. transplanted heart: eagle heart Essential hypertension I10 Hypertension type: essential hypertension Pure hypercholesterolemia E78.00; E78.0 Hyperlipidemia type: pure hypercholesterolemia Occlusion and stenosis of left carotid artery I65.22 PAD (peripheral artery disease) I73.9 Atrial fibr illation and flutter I48.91; I48.92 Renal disease N28.9 Coding Level of Care Code Off vis,est,level 4 Diagnoses Atherosclerosis of eagle coronary artery of eagle heart without angina pectoris I25.1 0 [place] vs. transplanted heart: eagle heart Essential hypertension I10 Hypertension type: essential hypertension Pure hypercholesterolemia E78.00; E78.0 Hyperlipidemia type: pure hypercholesterolemia Occlusion and stenosis of left carotid artery I65.22 PAD (peripheral artery disease) I73.9 Atrial fibrillation and flutter I48.91; I48.92 Renal disease N28.9 02/28/18 1747 <Electronically sig catrina by Hyun TOMPKINS> Date Hyun TOMPKINS 02/28/18 062<Electronically signed by Babatunde Maria MD> Yousuf Mabry ignature: Date (if applicable) Babatunde Maria MD CC: Jazzfilipe Rodas 21-Feb-2018 Office Visit Report Result: Comments: See Note; NOTES: [facility] Services [address] [address] OFFICE VISIT Date of Service: 02/20/18 MR#: [id number] Acct: [id number] Patient: LETHA DEUTSCH Rep #: [id number] : 1950 Provider: Babatunde Maria MD Age/Sex: 67/M Location[facility] Status: Signed Intake Intake Visit Reasons: [...] Summary Result: Comments: See Note; NOTES: [facility] Medical Records Department [address] [place] [address] Emergency Department Summary 02/16/18 1723 MR#: [id number] Acct: [id number] Name: LETHA DEUTSCH Rep #: [id number] : 1950 67 From: Charlie Lyles MD [...] inju ry This note was generated with Sprout[employer] dictation software. It may contain incorrect words, [...] your Primary Care Provider. Call [facility] ([phone]) or report to the closest Emergency Room. Call 911 if necessary. 02/16/18 184 5 <Electronically signed by Charlie Lyles MD> Date Charlie Lyles MD Cosigner Signature (If Indicated): Date CC: Jazz Rodas DO -Nov-2017 Carotid Duplex Ultrasound Result: Comments: See Note; NOTES: [facility] Cardiovascular Services [address] [place] [address] Carotid Duplex Ultrasound 11/09/17 1247 MR#: [id number] Acct: [id number] Name: RUBY LIEBERMANLETHA Ruperto Rep #: [id number] : 1950 67 From: Kaiser Awan MD [...] the left vertebral artery. Procedure Carotid Duplex [address]. The study was technically difficult. Exam performed [...] Dictated: 11/09/17 1247 Date Transcribed: 11/09/17 1516 Furnace Mason: Signed 27-Oct-2017 Cardiology Visit Report Result: Comments: See Note; NOTES: [facility] [address] [place], [place] [address]e. [address] [place] [address] OFFICE VISIT Date of Service: 10/27/17 MR#: [id number] Acct: [id number] Name: LETHA DEUTSCH Rep #: [id number] : 1950 Provider: Babatunde Maria MD Age/Sex: 66/M Location: [facility] Status: Signed HPI HPI Details: LETHA [...] brachial Intake Visit Reasons: 6 M FU Die Presser Required: No Accompanied by: none Is patient [...] carotid artery (Chronic) Atherosclerotic heart disease of eagle coronary artery without angina pectoris (Chronic) Obesity [...] Atherosclerosis of coronary artery bypass graft of eagle heart without angina pectoris I25.810 Plan He [...] arise Plan Detail 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 transplanted heart: eagle heart Essential hypertension I10 Hypertension type: essential hypertension Atrial fibrillation and flutter I48. 91; I48.92 Occlusion and stenosis of left carotid artery I65.22 Pure hypercholesterolemia E78.00; E78.0 Hyperlipidemia type: pure hypercholesterolemia Coding Level of Care Code Off vis,est,level 4 Di agnoses Atherosclerosis of coronary artery bypass graft of eagle heart without angina pectoris I25.810 [place] vs. transplanted heart: eagle heart Essential hypertension I10 Hypertension type: essentia l hypertension Atrial fibrillation and flutter I48.91; I48.92 Occlusion and stenosis of left carotid artery I65.22 Pure hypercholesterolemia E78.00; E78.0 Hyperlipidemia type: pure hypercholesterolemia 10/27/17 0935 <Electronically signed by Babatunde Maria MD> Date Babatunde Maria MD Cosigner Signature: Date (if applicable) CC: Jazz Rodas DO 22-Oct-2017 Spine Lumbar (Routine) Result: Comments: See Note; NOTES: [facility] Imaging Services [address] [place] [address] Spine Lumbar (Routine) MR#: [id number] Acct: [id number] Name: LETHA DEUTSCH Rep #: [id number] : 1950 M 66 From: Roberto Lunsford MD PCP: Jazz Rodas DO Status: REG CLI Study: Spine Lumbar (Routine) Date of Exam: 10/22/17 Exam# [id number] Ordering Dr: Brooklynn Ryan SPRING TIER-C STUDY: MRI L UMBAR SPINE WITHOUT CONTRAST [...] , CC: Brooklynn Ryan; Jazz Rodas DO Furnace Mason: Signed 14-Apr-2017 Cardiology Visit Report Result: Comments: See Note; NOTES: [facility] [address] [place] [address] OFFICE VISIT Date of Service: 04/14/17 MR#: [id number] Acct: [id number] Name: LETHA DEUTSCH Rep #: [id number] : 1950 Provider: Hyun Iglesias Age/Sex: 66/M Location: [facility] [place] Status: Signed HPI 6 M FU: Details: [...] Lt brachial Intake Visit Reasons: 6 M Die Presser Required: No Accompanied by: None Is patient [...] carotid artery (Chronic) Atherosclerotic heart disease of eagle coronary artery without angina pectoris (Chronic) HTN [...] Atherosclerosis of coronary artery bypass graft of eagle heart without angina pectoris I25.810; I25.810; I25.810 [...] prior to saving. 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 (GRIP BOSS) 1018 <Electronically signed by Hyun TOMPKINS> Date Hyun TOMPKINS 04/14/17 1020<Electronically signed by Babatunde Maria MD> Cosigner Signature: Date (if applicable) Babatunde Maria MD CC: Jazz Rodas DO 23-Jun-2016 Brain/Head without Contrast Result: Comments: See Note; NOTES: [facility] Imaging Services [address] [place] [address] Verdana 4d Brain/Head without Contrast MR#: [id number] Acct: [id number] Name: [facility] Rep #: [id number] : 1950 M 65 From: Chago Loera MD PCP: Jazz Rodas DO Status: [facility] Study: Brain/Head without Contrast Date of Exam: 06/23/16 Exam# [id number] Ordering Dr: Isiah Gloria MD STUDY: CT [...] 06/23 at 20:16 EDT , Service support [phone], N.B. : The above information has been verbally conveyed by Chago Loera MD to dr gloria, Referring Physician, on 20:19:35 (ET). CC: Emili Gloria MD; Jazz Rodas DO Furnace Mason: Signed 23-Jun-2016 Chest 1 View Result: Comments: See Note; NOTES: [facility] Imaging Services [address] [place] [address] Verdana 4d Chest 1 View MR#: [id number] Acct: [id number] Name: LETHA DEUTSCH Rep #: [id number] : 1950 M 65 From: Chago Loera MD PCP: Jazz Rodas DO Status: REG ER Study: Chest 1 View Date of Exam: 06/23/16 Exam# [id number] Ordering Dr: Emili Gloria MD STUDY: X-RAY [...] MD at 20:28 EDT , Service support [phone], CC: Emili Gloria MD; Jazz Rodas DO Furnace Mason: Signed 09-Jun-2016 Pulmonary Function Report Comp Result: Comments: See Note; NOTES: [facility] Pulmonary Services/Neurology [address] [place] [address] Pulmonary Function Test (Comp) MR#: [id number] Acct: [id number] Name: LETHA DEUTSCH Rep #: [id number] : 1950 65 From: Rodolfo Palacios DO Referring Dr: Rodolfo Palacios D.O. Status: REG CLI Ordering Dr: Rodolfo Palacios DO Date: 06/08/16 Location: [facility] Sex: M C DATE OF SERVICE: [...] DO Karen Gurrola C: T: NTS JOB: [id number] 06/09/16 1357 &# 60;Electronically signed by Rodolfo Palacios DO> Date Rodolfo Palacios DO CC: Rodolfo Palacios D.O.; Jazz Rodas DO Date Dictated: 06/09/16829 Date Transcribed: 06/09/16829 Furnace Mason: Signed 07-Jun-2016 Chest PA and Lateral Result: Comments: See Note; NOTES: [facility] Imaging Services [address] [place] [address] Verdana 4d Chest PA and Lateral MR#: [id number] Acct: [id number] Name: LETHA DEUTSCH p #: [id number] : 1950 M 65 From: Real Miller MD PCP: Jazz Rodas DO Status: REG CLI Study: Chest PA and Lateral Date of Exam: 06/07/16 Exam# [id number] Ordering Dr: Hyun Iglesias PA STUDY: X-RAY [...] MD at 16:15 EST , Service support [phone], CC: Jazz Rodas DO; Hyun Iglesias Furnace Mason: Signed 01-Jun-2016 Carotid Duplex Ultrasound Result: Comments: See Note; NOTES: [facility] Cardiovascular Services [address] [place] [address] Carotid Duplex Ultrasound 06/01/16 1000 MR#: [id number] Acct: [id number] Name: RUBY LIEBERMANLETHA Hickey Rep #: [id number] : 1950 65 From: Cassi Rousseau MD [...] the left vertebral artery. Procedure Carotid Duplex [address]. Technically difficult due to body habitus. Exam [...] Dictated: 06/01/16 1000 Date Transcribed: 06/01/16 1434 Furnace Mason: Signed 01-Jun-2016 Echocardiogram Complete Result: Comments: See Note; NOTES: [facility] Cardiovascular Services [address] [place] [address] Echo Complete 06/01/16 0909 MR#: [id number] Acct: [id number] Name: LETHA DEUTSCH Rep #: [id number] : 1950 65 From: Babatunde Maria MD Attending Dr: Rodolfo Palacios D.O. Status: REG CLI Ordering Dr: Rodolfo Palacios DO Date: 06/01/16 Location: [facility] Sex: M C Admitted: Reason For Andrew [...] DO Date Dictated: 06/01/1609 Date Transcribed: 06/01/161250 Furnace Mason: Signed 26-May-2016 6 Minute Walk Test Result: Comments: See Note; NOTES: [facility] Pulmonary Services/Neurology [address] [place] [address] MR#: [id number] Acct: [id number] Name: LETHA DEUTSCH Rep #: [id number] : 1950 65 From: Rodolfo Palacios DO Referring Dr: Rodolfo Palacios D.O. Date: Ordering Dr: Ama Jones Location: PSN PSN 6 Minute Walk Test - 6 Minute Walk Test 6 Minute Walk Test: 6 Minute Walk Test PSN :6-Minute Walk Test Start: 05/25/16 12:52 Freq: Status: Active Document 05/25/16 12:52 LORENA (Rec: 05/25/16 12:54 LORENA [id number]) 6 Minute Walk Test Date Performed 05/25/16 [...] CC: Date Dictated: 05/26/16946 Date Transcribed: 05/26/16946 Furnace Mason: Rodolfo Palacios DO Signed 21-Apr-2016 Venous Duplex Lower Extremity Result: Comments: See Note; NOTES: [facility] Cardiovascular Services [address] [place] [address] Venous Duplex US, Unilateral 04/21/16 1619 MR#: [id number] Acct: [id number] Name: LETHA ARTHUR Rep #: [id number] : 1950 65 From: Kwaku Ahmadi MD [...] Ahmadi MD CC: Jazz Rodas DO; Raya Albararn Date Dictated: 04/21/16 1619 Date Transcribed: 04/21/16 1827 Furnace Mason: Signed 16-Apr-2016 Pelvis WITH IV Contrast Result: Comments: See Note; NOTES: [facility] Imaging Services [address] [place] [address] Verdana 4d Pelvis WITH IV Contrast MR#: [id number] Acct: [id number] Name: LETHA DEUTSCH Rep #: [id number] : 1950 M 65 From: Gurpreet De Anda DO PCP: Jazz Rodas DO Status: REG CLI Study: Pelvis WITH IV Contrast Date of Exam: 04/16/16 Exam# [id number] Ordering Dr: Jazz Rodas STUDY: CT PELVIS [...] De Anda DO at 9:03 EST Tel [phone], Service support [phone], CC: Ivory Rodas DO Furnace Mason: Signed 14-Apr-2016 Other BP Soft Tissue Result: Comments: See Note; NOTES: [facility] Imaging Services [address] [place] [address] Verdana 4d Other BP Soft Tissue MR#: [id number] Acct: [id number] Name: LETHA DEUTSCH p #: [id number] : 1950 M 65 From: Gurpreet De Anda DO PCP: Jazz Rodas DO Status: REG CLI Study: Other BP Soft Tissue Date of Exam: 04/14/16 Exam# [id number] Ordering Dr: Raya Albarran STUDY: GALINDO PERFICIAL [...] Anda DO 27/04/03 at 12:37 EST Tel [phone], Service support [phone], CC: Jazz Rodas DO; Raya Albarran Furnace Mason: Signed 18-Feb-2016 12 Lead Electrocardiogram Result: Comments: See Note; NOTES: [facility] Cardiovascular Services [address] [place] [address] 12 Lead EKG 02/16/16 1238 MR#: [id number] Acct: [id number] Name: LETHA DEUTSCH Rep #: [id number] : 1950 65 From: Johnie Montaño MD Attending Dr: Babatunde Maria MD Status: [facility] Ordering Dr: Babatunde Maria MD Date: 02/16/16 Location: [facility] Sex: M C Admitted: Test [...] Confirmed by SCOTT PERERA, JOHNIE ([id number]), scientific editor BECK DOSS ([id number]) on 02/18/2016 2:53:30 PM Referred By: [facility]ATUNDE [facility] Confirmed By:JOHNIE MONTAÑO MD 02/18/16 1453 Date Johnie Montaño MD CC: Jazz Rodas DO Date Dictated: 02/16/16 1238 Date Transcribed: 02/16/16 1238 Furnace Mason: Signed 17-Feb-2016 Operative Report Result: Comments: See Note; NOTES: [facility] Medical Records Department [address] [place] [address] Operative Report MR#: [id number] Acct: [id number] Name: LETHA DEUTSCH Rep #: [id number] : 1950 65 From: Rodolfo Palacios DO [...] issues including a triple bypass surgery at [facility] in 1996 followed by an ablation [...] Karen Gurrola C: Referring Provider . T: RACAHEL JOB: [id number] 02/17/16 1243 <Electronically signed by Rodolfo Palacios DO> Date ____ Rodolfo Palacios DO Cosigner Signature (If Indicated): Date CC: Rodolfo Palacios D.O.; Jazz Puentes te Dictated: 02/16/161258 Date Transcribed: 02/16/161258 Furnace Mason: Signed 17-Feb-2016 Operative Report Result: Comments: See Note; NOTES: [facility] Medical Records Department [address] [place] [address] Operative Report MR#: [id number] Acct: [id number] Name: LETHA DEUTSCH Rep #: [id number] : 1950 65 From: Babatunde Maria MD PCP: Jazz Rodas DO Status: [facility] DATE OF SERVICE: PROCEDURE: DC cardioversion. INDICATIONS: [...] Babatunde Maria MD T: RACHAEL JOB : [id number] 02/17/16 0833 <Electronically signed by Babatunde Maria MD> Date Babatunde Maria MD Cosigner Signature (If Indicated): Date __ CC: Babatunde Maria MD; Jazz Rodas DO Date Dictated: 02/16/16 1326 Date Transcribed: 02/16/161325 Furnace Mason: Signed 01-Jan-2016 Operative Report Result: Comments: See Note; NOTES: [facility] Medical Records Department [address] [place] [address] Operative Report MR#: [id number] Acct: [id number] Name: LTEHA DEUTSCH Rep #: [id number] : 1950 65 From: Babatunde Maria MD PCP: Jazz Rodas DO Status: REG [facility] DATE OF SERVICE: PROCEDURE: DC cardioversion. INDICATION: [...] followup. Babatunde Maria MD T: NTS JOB: [id number] 01/01/16 0813 <Electronically signed by Babatunde Maria MD> Date Babatunde Maria MD Cosigner Signature (If Indicated): Date CC: Babatunde Maria MD; Jazz Rodas DO Date Dictated: 12/29/15 114 Date Transcribed: 12/29/15 114 Furnace Mason: Signed 31-Dec-2015 Consultation Result: Comments: See Note; NOTES: [facility] Medical Records Department [address] [place] [address] Consultation MR#: [id number] Acct: [id number] Name: LEHTA DEUTSCH Rep #: [id number] : 1950 65 From: Zia Aldrich MD PCP: Jazz Rodas DO Status: REG [facility] DATE OF SERVICE: 12/29/2015 BRIEF HISTORY OF PRESENT ILLNESS: The patient is a 65-year-old male, cu rrently under the care of Dr. Maria, who presents for elective KAYLEE and cardioversion secondary to atrial fibrillation. The patient does have a long history of atrial fibrillation and cardiac issues incl uding a triple bypass at [facility] in 1996, atrial ablation in 2011 [...] Babatunde Maria MD Primary Care Physician T: [facility] JOB: [id number] 12/31/15 0622 <Electronically signed by Zia Aldrich MD> Date Zia bond MD Cosigner Signature (If Indicated): Date CC: Zia Aldrich MD; Babatunde Maria MD; Jazz Rodas DO Date Dictated: 12/29/151436 Date Transcri bed: 12/29/151436 Furnace Mason: Signed 29-Dec-2015 Echo Transesophageal (KAYLEE) Result: Comments: See Note; NOTES: [facility] Cardiovascular Services [address] [place] [address] Echo Transesophageal (KAYLEE) 12/29/15 1045 MR#: [id number] Acct: [id number] Name: OPAL LANDAVERDEERLETHA Ruperto Rep #: [id number] : 1950 65 From: Babatunde Maria MD Attending Dr: Babatunde Maria MD Status: REG NDC Ordering Dr: Babatunde Maria MD Date: 12/29/15 Location: [facility] Sex: M C Admitted: R marian For Study: A. fib Medication KAYLEE probe passed without difficulty. Cetacaine Topical [place] given X3 orally. Versed 2 mg given [...] __ Ordering Physician: Babatunde Maria Referring Physician: Jzaz Rodas M.D. Performed By: Sonal Santa RDCS 12/29/15 1237 Date Babatunde Maria MD CC: Babatunde Maria MD; Jazz Rodas DO Date Dictated: 12/29/15 1045 Date Transcribed: 12/29/15 1237 Furnace Mason: Signed 20-Nov-2015 OT D/C Summary Result: Comments: See Note; NOTES: [facility] Occupational Therapy [facility] [address] [place] [address] Fax [facility]ILITATION [facility] SUMMARY MR#: [id number] Acct: [id number] Name: LETHA DEUTSCH Rep #: [id number] : 1950 65 From: Linda Blunt Referring [...] of their discharge status. - Objective Objective/Function: Community Specialist: R: 95# L: 80#. Lat Pinch: R:26# [...] the izquierdo to regaining sensation and strength. Community Specialist: R: 95# L: 80#. Lat Pinch: R:26# L:10#. Tripod Pinch: R:18# L:8#. Gram Abduction: R:375; L: 200. Adduction: R: 800; L:600. Monofilaments: L Th:3.84. L IF:3.22. L MF:3.22. L RF:3.22/4.08. L LF:4.08. In mariano nd manipulation (palm to fingers and fingers to palm) appear normal. If there are questions or concerns regarding this patient's occupational therapy, please fell free to call me at [phone]. Thank you for the referral of this patient. Sincerely, Linda Blunt <Electronically signed by Linda Blunt > 11/20/15 1518 CC: Jazz Rodas DO; Jorge Luis Kerr MD MG Signed 20-Nov-2015 OT General Evaluation Result: Comments: See Note; NOTES: [facility] Occupational Therapy [facility] [facility] [address] [place] [address] Fax [facility]ABILITATION SERVICES IN ITIAL EVALUATION MR#: [id number] Acct: [id number] Name: LETHA DEUTSCH Rep #: [id number] : 1950 65 From: Linda Blunt Referring [...] trans position on August 12, 2015 at [place]. Pt. experienced sudden numbness and falling asleep" of L elbow and hand before the surgery. Pt. is retired and worked at [employer] for 34 years. 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 Pt. is R-handed [...] Elbow: B 5/5 Wrist: R:5/5; L: 4+/5 Community Specialist: R:85# L:80# Lateral Pinch: R:22# L:12# Tripod [...] to be FAXED BACK to us at [phone] for Med icare purposes. Please let me know if there are questions or concerns regarding this plan of care. Physician Signature: Date: <E lectronically signed by Linda Blunt > 11/20/15 6450 CC: Jazz Rodas DO; Jorge Luis Kerr MD MG Signed For Medicare only, by signing this I certify the plan of ca re. Physicians Signature Date 06-Nov-2015 CTA Head W/WO Contrast Result: Comments: See Note; NOTES: [facility] Imaging Services [address] [place] [address] Verdana 4d CTA Head W/WO Contrast MR#: [id number] Acct: [id number] Name: LETHA MASON Rep #: [id number] : 1950 M 65 From: Cecilio Castillo PCP: Jazz Rodas DO Status: REG CLI Study: CTA Head W/WO Contrast Date of Exam: 11/06/15 Exam# [id number] Ordering Dr: Linnea Johnson SPRING TIERMary Kay STUDY: CTA OF THE BRAIN REASON [...] There is no demonstrated aneurysm of the [place]. There is no demonstrated abnormality of the visualized brain. 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 Mi ld atherosclerotic plaque of the bilateral intracranial carotid arteries. Electronically Signed: Cecilio Castillo MD at 11:58 EDT Tel , Service support [phone], Fax CC: Linnea Hall; Jazz Rodas DO Furnace Mason: Signed 06-Nov-2015 CTA Head W/WO Contrast Result: Comments: See Note; NOTES: [facility] Imaging Services [address] [place] [address] Verdana 4d CTA Head W/WO Contrast MR#: [id number] Acct: [id number] Name: LETHA MASON Rep #: [id number] : 1950 M 65 From: Cecilio Castillo PCP: Jazz Rodas DO Status: REG CLI Study: CTA Head W/WO Contrast Date of Exam: 11/06/15 Exam# [id number] Ordering Dr: Linnea Johnson SPRING TIER-C STUDY: CTA OF THE BRAIN REASON FOR [...] There is no demonstrated aneurysm of the [place]. There is no demonstrated abnormality of the visualized brain. CC: Linnea Hall; Jazz Rodas DO Furnace Mason: Signed 06-Nov-2015 CTA Neck W/WO Contrast Result: Comments: See Note; NOTES: [facility] Imaging Services [address] [place] [address] Verdana 4d CTA Neck W/WO Contrast MR#: [id number] Acct: [id number] Name: LETHA MASON Rep #: [id number] : 1950 M 65 From: Cecilio Castillo PCP: Jazz Rodas DO Status: REG CLI Study: CTA Neck W/WO Contrast Date of Exam: 11/06/15 Exam# [id number] Ordering Dr: Linnea Johnson SPRING TIER-C STUDY: CTA NECK WITH CONTRAST REASON FOR [...] at 11:53 EDT Tel , Service support [phone], CC: Linnea Hall; Jazz Rodas DO Furnace Mason: Signed 06-Nov-2015 CTA Neck W/WO Contrast Result: Comments: See Note; NOTES: [facility] Imaging Services [address] [place] [address] Verdana 4d CTA Neck W/WO Contrast MR#: [id number] Acct: [id number] Name: RUBY MIOLETHA Rep #: [id number] : 1950 65 From: Cecilio Castillo PCP: Jazz Rodas DO Status: REG CLI Study: CTA Neck W/WO Contrast Date of Exam: 11/06/15 Exam# [id number] Ordering Dr: Linnea Johnson SPRING TIER-C STUDY: CTA NECK WITH CONTRAST REASON FOR [...] artery. CC: Linnea Hall; Jazz Rodas DO Furnace Mason: Signed 30-Sep-2015 Brain W/WO Contrast Result: Comments: See Note; NOTES: [facility] Imaging Services [address] [place] [address] Verdana 4d Brain W/WO Contrast MR#: [id number] Acct: [id number] Name: DALIA JHALETHA Ruperto Rep #: [id number] : 1950 M 64 From: Cierra Doss MD PCP: Jazz Rodas DO Status: REG CLI Study: Brain W/WO Contrast Date of Exam: 09/30/15 Exam# [id number] Ordering Dr: Prakash Mccarty MD STUDY: MRI [...] MD at 13:08 EDT , Service support [phone], CC: Isaac Mccarty MD; Jazz Rodas DO Furnace Mason: Signed 28-Sep-2015 Carotid Duplex Ultrasound Result: Comments: See Note; NOTES: [facility] Cardiovascular Services [address] [place] [address] Carotid Duplex Ultrasound 09/25/15 1411 MR#: [id number] Acct: [id number] Name: LETHA DEUTSCH Rep #: [id number] : 1950 64 From: Rian Levi MD [...] the left vertebral artery. Procedure Carotid Duplex 80136. Techncially difficult due to body habitus. Exam performed in department. Interpretation Summary Mild (<50%) stenosis right extracranial internal carotid. Mild (<50%) stenosis l eft extracranial internal carotid. Flow within the vertebral arteries is antegrade bilaterally. Ordering Physician: Jazz Rodas Performed By: Karon Harris RVT 09/28/152157 Date Rian Levi MD CC: Jazz Rodas DO Date Dictated: 09/25/151 Date Transcribed: 09/28/152157 Furnace Mason: Signed 25-Sep-2015 Brain/Head without Contrast Result: Comments: See Note; NOTES: [facility] Imaging Services [address] [place] [address] Verdana 4d Brain/Head without Contrast MR#: [id number] Acct: [id number] Name: LETHA DEUTSCH Rep #: [id number] : 1950 M 64 From: Juli Klein MD PCP: Jazz Rodas DO Status: REG CLI Study: Brain/Head without Contrast Date of Exam: 09/25/15 Exam# [id number] Ordering Dr: Jazz Rodas DO STUDY: CT [...] at 14:19 EDT Tel cf, Service support [phone], CC: Jazz Rodas DO Furnace Mason: Signed 17-Sep-2015 Operative Report Result: Comments: See Note; NOTES: [facility] Medical Records Department [address] [place] [address] Operative Report MR#: [id number] Acct: [id number] Name: [facility] Rep #: [id number] : 1950 64 From: Babatunde Maria MD [...] office. Babatunde Maria MD T: NTS JOB: [id number] 09/17/15 08 <Electronically sig catrina by Babatunde Maria MD> Date Babatunde Maria MD Cosigner Signature (If Indicated): Date CC: Babatunde Maria MD; Jazz Rodas DO Date Dictated: 09/16/15 1100 Date Transcribed: 09/16/15 1100 Furnace Mason: Signed 17-Sep-2015 Operative Report Result: Comments: See Note; NOTES: [facility] Medical Records Department [address] [place] [address] Operative Report MR#: [id number] Acct: [id number] Name: [facility] E Rep #: [id number] : 1950 64 From: Zia Aldrich MD [...] MD Primary Care Physicia n . T: [facility] JOB: [id number] 09/17/15 0608 <Electronically signed by Zia Aldrich MD> Date Zia Aldrich MD Cosigner Signature (If I ndicated): Date CC: Zia Aldrich MD; Jazz Rodas DO Date Dictated: 09/16/155 Date Transcribed: 09/16/151114 Furnace Mason: Signed 09-Sep-2015 Chest PA and Lateral Result: Comments: See Note; NOTES: [facility] Imaging Services [address] [place] [address] Verdana 4d Chest PA and Lateral MR#: [id number] Acct: [id number] Name: LETHA CHAUDHARI Rep #: [id number] : 1950 M 64 From: Osvaldo Manuel MD PCP: Jazz Rodas DO Status: REG CLI Study: Chest PA and Lateral Date of Exam: 09/09/15 Exam# [id number] Ordering Dr: Hyun Iglesias STUDY: X-RAY CHEST [...] Osvaldo Manuel MD at 10:04 EDT Tel [phone], Service support [phone], RAD/Chest PA and Lateral IMPRESSION: Hyperin flation. No acute abnormality is seen. Electronically Signed: Osvaldo Manuel MD at 10:04 EDT Tel [phone], Service support [phone], CC: Jazz reynolds DO; Hyun Iglesias Furnace Mason: Signed 07-Aug-2015 ELECTROCARDIOGRAM, COMPLETE (ECG) (62908) Comments: afib controlled rate 97 - Result: [MEASUREMENTS ANALYSIS] Date of Test: 08/07/2015 08:26:34; Heart Rate: 97; AL Interval: 0; QRS: 104; QT Interval: 344; Corrected QT Interval (QTc): 408; P Wave Central: 1; QRS Wave Central: -31; T Wave Central: 1; Blood Pressure: 138/78 [ECG DIAGNOSTIC STATEMENTS] Date of Test: 08/07/2015 08:26:34; Summary: Atrial flutter-fibrillation - Nonspecific T-abnormality. ABNORMAL 30-Jul-2015 ELECTROCARDIOGRAM, COMPLETE (ECG) (28352) Comments: afib rate 109 Result: [MEASUREMENTS ANALYSIS] Date of Test: 07/30/2015 17:00:28; Heart Rate: 109; AL Interval: 0; QRS: 108; QT Interval: 338; Corrected QT Interval (QTc): 423; P Wave Central: 1; QRS Wave Central: -30; T Wave Central: 42; Blood Pressure: 122/78 [ECG DIAGNOSTIC STATEMENTS] Date of Test: 07/30/2015 17:00:28; Summary: Atrial fibrillation -Nonspecific QRS widening. -Nonspecific ST depression -Nondiagnostic. ABNORMAL 24-Jul-2015 NCS and/or EMG Patient Result: Comments: See Note; NOTES: [facility] Pulmonary Services/Neurology [address] [place] [address] NCS and/or EMG Patient MR#: [id number] Acct: [id number] Name: LETHA ZUNIGA Rep #: [id number] : 1950 64 From: Mary Doan Referring [...] referral. Mary Doan MD T: NTS JOB: [id number] 07/24/152201 <Elect ronically signed by Mary Doan > Date Mary Doan CC: Jazz Rodas DO; MARY DOAN; Jorge Luis Kerr MD Date Dictated: 38 Date Transcribed: 07/23/15937 Furnace Mason: Signed 09-Jul-2015 Echocardiogram Complete Result: Comments: See Note; NOTES: [facility] Cardiovascular Services [address] [place] [address] Echo Complete 07/09/15 0858 MR#: [id number] Acct: [id number] Name: LETHA DARBY Rep #: [id number] : 1950 64 From: Babatunde Maria MD [...] Mild (1+) tricuspid valve insufficiency. Ordering Physician: Babtaunde Maria Referring Physician: Jazz Rodas M.D. Performed By: Sonal Santa RDCS 07/09/15 1258 Date Babatunde Maria MD CC: Jazz Rodas DO Date Dictated: 07/09/15 0858 Date Transcribed: 07/09/15 1258 Furnace Mason: Signed 09-Jul-2015 Nuclear Stress Test - Chemical Result: Comments: See Note; NOTES: [facility] Imaging Services [address] [place] [address] Verdana 4d Nuclear Stress Test - Chemical MR#: [id number] Acct: [id number] N alexsander: LETHA DEUTSCH Rep #: [id number] : 1950 64 From: Babatunde Maria MD [...] fraction. Babatunde Maria MD T: NTS JOB: [id number] 07/10/15 1139 <Electronically signed by Babatunde Maria MD> Date Babatunde Maria MD CC: Jazz Rodas DO Date Dictated: 07/09/15 1110 Date Transcribed: 07/09/151109 Furnace Mason: Signed 02-May-2015 Lumbar Spine 2 or 3 Views Result: Comments: See Note; NOTES: [facility] Imaging Services [address] [place], [place] [address] [address] Verdana 4d Lumbar Spine 2 or 3 Views MR#: [id number] Acct: [id number] Name: LETHA ARTHUR Rep #: [id number] : 1950 M 64 From: Osvaldo Manuel MD PCP: Jazz Rodas DO Status: REG CLI Study: Lumbar Spine 2 or 3 Views Date of Exam: 05/02/15 Exam# [id number] Ord ering Dr: Sherif Christensen MD STUDY: [...] Osvaldo Manuel MD at 15:13 EST Tel [phone], Service support [phone], 0056 RAD/Lumbar Spine 2 or 3 Views IMPRESSION: Grade 1 anterolisthesis of L5 on S1 with no significant translation on the flexion and extension maneuvers. Multilevel spondylosis and disc space narrowing. Electronically Signed: Osvaldo olivo MD at 15:13 EST Tel [phone], Service support [phone], CC: Sherif Christensen MD; Jazz Rodas DO Furnace Mason: Signed 02-May-2015 Spine Lumbar without Contrast Result: Comments: See Note; NOTES: [facility] Imaging Services [address] [place] [address] Veronica 4d Spine Lumbar without Contrast MR#: [id number] Acct: [id number] Wisam e: LETHA DEUTSCH Rep #: [id number] : 1950 M 64 From: Scott Kelly MD PCP: Jazz Rodas DO Status: REG CLI Study: Spine Lumbar without Contrast Date of Exam: 05/02/15 Exam# [id number] Ordering Dr: Sherif Christensen MD STUDY: CT [...] Scott Kelly MD at 8:31 EST Tel [phone], Ser vice support [phone], CC: Sherif Christensen MD; Jazz Rodas DO Furnace Mason: Signed 28-Jan-2015 History and Physical Exam Result: Comments: See Note; NOTES: [facility] Medical Records Department [address] [facility] [place] [address] History and Physical 01/24/15 2255 MR#: [id number] Acct: [id number] Name: LETHA DEUTSCH Rep #: [id number] : 1950 64 From: Joe Sinha PA-C PCP: Jazz Rodas DO Status: PRE IN Location: [facility] DATE OF SERVICE: PRIMARY CARE PHYSICIAN: Dr. Natalie Rodas. PROCEDURE TYPE: Reverse total shoulder replacement, right shoulder. PROCEDURE DATE: February 04, 2015. ATTENDING PHYSICIAN: Dr. Jorge Luis Kerr. HISTORY OF PRESENT ILLNESS: This is a 64-year-old male who first presented to [facility] [place] on December 03, 2014. The patient states [...] patient has undergone cardiac clearance by his branch store manager, Dr. Maria. The patient has a history of coronary artery disease with bypass surgery in 1996. The patient has also had heart ablation in 2010 as well as stents in his left and right iliac arteries. The patient un derwent a heart catheterization in 2011. The patient was given surgical clearance by his branch store manager. The patient denies any chest pain, shortness [...] in the medical record. Please see attached [facility] medical history sheet. PAST MEDICAL PROBLEMS: 1. [...] DIAGNOSTIC STUDIES: 1. X-rays were obtained at [facility] on December 03, 2014, of the right shoulder including 3 views AP, ___ _ and axillary view, show no acute fracture, dislocation, or other bony abnormalities, ____ lesion inferior aspect of the glenoid. 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 2. MRI o f the right shoulder was obtained at [facility] [place] on ____ 2014, shows a full-thickness tear [...] nt has undergone cardiac clearance from his branch store manager. Joe Sinha PA-C T: NTS JOB: [id number] 01/28/15 0716 <Electronically signed by Joe Sinha [...] (Routine) Result: Comments: See Note; NOTES: [facility] Imaging Services [address] [place] [address] MRI Report MR#: [id number] Acct: [id number] Name: LETHA DEUTSCH Rep #: [id number] : 1950 M 63 From: Jack Martínez MD PCP: Jazz Rodas DO Status: REG CLI Study: Spine Lumbar (Routine) Date of Exam: 06/13/14 Exam# [id number] Ordering Dr: Mihir Martínez MD STUDY: MR [...] at 19:32 EST Tel , Service support [phone], CC: Mihir Martínez MD; Jazz Rodas DO Furnace Mason: Signed 06-Mar-2014 Sleep Study Report Result: Comments: See Note; NOTES: [facility] [address] [place] [address] Polysomnography with NCPAP MR#: [id number] Acct: [id number] Name: RADHA DEUTSCH Rep #: [id number] : 1950 63 From: Gennaro Larsen MD PCP: Rupinder Encarnacion DO Status: REG CLI Ordering Dr.: Gennaro Larsen MD Date: 02/28/14 Sex: M C REFERRING PHYSICIAN: Dr. Larsen. SLEEP HISTORY: The patient is a 63-year-old gentleman with a calculated body mass index of 36.3 and an [place] Sleepiness Scale score of 8/24. The patient [...] version). Please note that a reference to [facility] AHI in this report is consistent with the current Hypopnea definition according to Medicare Criteria and an AASM AHI reference is consistent with the current Hypopnea definition according to the AASM criteria. PROCEDURE: The stud y was attended continuously by a diesel maintenance technician. Monitored parameters included left and right [...] Ultrasound Result: Comments: See Note; NOTES: [facility] Cardiovascular Services [address] [place] [address] Carotid Duplex Ultrasound 01/30/14 0854 MR#: [id number] Acct: [id number] Wisam e: LETHA DEUTSCH Rep #: [id number] : 1950 63 From: Rian Levi MD Attending Dr: Rupinder Encarnacion DO Status: REG CLI Ordering Dr: Rupinder Encarnacion DO Date: 01/30/14 Location: [facility] Sex: M C Admitte d: Rt. Velocities/BP [...] the left vertebral artery. Procedure Carotid Duplex 48871. Exam performed in department. Interpretation Summary Mild (<50%) stenosis right extracranial internal carotid. Mild (<50%) stenosis left extracranial internal carotid. Flow within the vertebral arteries is antegrade bilaterally. Ordering Physician: Rupinder Encarnacion Performed By: Karon Harris RVT 01/30/14 1122 Date Rian Levi MD CC: Rupinder Encarnacion DO Date Dictated: 01/30/14 0854 Date Transcribed: 01/30/14 112 Furnace Mason: Signed Immunization Name Dates Details Influenza (3 years and up) on: 24-Jan-2007 Comments: given o.5cc im in right deltoid lot#[id number] exp.10/09/07-aw Influenza (3 years and up) on: 15-Mar-2008 Influenza (3 years and up) on: 07-Jan-2009 Comments: Lot #:[id number] date:mount given:0.5mlRoute: IMSite given:left deltGiven by: PRECIOUS Serna (2 years and up) on: 24-Jan-2007 Comments: given 0.5cc in right deltoid lot#[id number] exp. 02/20/08-aw Family History Unknown Family Member Name Dates Details Father Comments: aty 52, Diabetes and [place] Status: Active Mother Comments: CAD, PVD Status: Active Social History Name Dates Details Alcohol Use Comments: Rare beer Status: Active Caffeine Use Status: Active Most Recent Primary Occupation Comments: retired 2013 Status: Active Tobacco Use: Former smoker. Comments: Remotely quit tobacco use- 11/24/10 Status: Active Smoking Status Name Dates Details Former smoker Vital Signs Date Test Result Details 12-Png-928060:55 Temperature 97.3 f Comments: Method: Temporal Pulse [...] Area Calculated 2.14 m2 :59 Comments: hearing [facility] and had a glaucoma test done [...] Surface Area Calculated 2.12 m2 :29 Comments: [facility] and hada glaucoma test doneHearing [...] kg/m2 Body Surface Area Calculated 2.11 m2 09-Xsq-729301:50 Comments: [facility] Pulse 74 /min Comments: Pattern: Regular [...] 0.00 cm Results Date Description Value Details 91-Kad-396182:07 Basic Metabolic Profile (BMP) Comments: [facility] [address] [place], [phone] GAP 7 (Normal) Range: 5-15 CO2 30.0 [...] Comments: Please note revised GLUCOSE reference range ffehhoxox49/02/2018. :53 Albumin, Serum Comments: [facility] [address] [place], [phone] ALB 3.5 g/dL (Normal) Range: 3.2-5.0 :53 Hemoglobin A1c Comments: [facility] [address] [place], [address] HGB A1C 5.7 % (Normal) Range: 4.2-6.3 :53 Vitamin D,25 Hydroxy Comments: [facility] [address] [place], [phone] Vitamin D 25-OH 47.7 ng/mL (Normal) Range: 29.95-100.01 Comments: Vitamin D 25(OH) Status Range Deficiency <20 ng/mL (50nmol/L) Insuffciency 20 - 30 ng/mL (50 - 75 nmol/L) Sufficiency 30 - 100 ng/mL (75 - 250 nmol/L) Toxicity >100 ng/mL (>250 nmol/L) 6-Nin-524746:38 Basic Metabolic Profile (BMP) Comments: [facility] [address] [place], [place], [phone] GAP 10 (Normal) Range: 5-15 CO2 28.0 [...] Result(s) Called at: 18:23:59 02/16/2018 by:Shawna arias [facility] GLU 96 mg/dL (Normal) Range: 74-106 Comments: Please note revised GLUCOSE reference range otvtsmnlv22/02/2018. 5-Fpt-554886:38 CBC W/Diff, Automated Comments: [facility] [address] [place], [place], [phone] Absolute Lymph 1.17 {X10_3/ul} (Normal) Range: 0.83-4.51 [...] 4.6-6.2 WBC 4.9 K/mm3 (Normal) Range: 4.4-11.0 6-Ods-228027:32 Urinalysis, Complete Comments: Order Date: 02/16/18Has pt arrived? YHow was Urine Obtained? DIRECTOR MARKET RESEARCH TO [facility] [address] [place], [place], [phone] MUCUS, URINE 0 SEEN {/hpf} (Normal) BACTERIA [...] (Normal) CLARITY Clear (Normal) COLOR Yellow (Normal) 37-Fyf-966576:57 Blood Glucose , Office (34165) Blood Glucose , Office 123 (Normal) :06 Lipid Profile Comments: [facility] [address] [place], [place], [phone] VLDL Test not performed mg/dL (Normal) Range: [...] mg/dL High Risk :06 Liver Profile Comments: [facility] [address] [place], [place], [address] D BILI 0.07 mg/dL (Normal) Range: 0.00-0.30 T BILI 0.30 mg/dL (Normal) Range: 0.20-1.00 ALT 34 U/L (Normal) Range: 16-61 ALK P 58 U/L (Normal) Range: 45-117 AST 23 U/L (Normal) Range: 15-37 GLOB 3.4 g/dL (Normal) Range: 2.2-4.2 ALB 3.4 g/dL (Normal) Range: 3.2-5.0 T PROT 6.8 g/dL (Normal) Range: 6.4-8.2 :19 CBC W/Diff, Automated Comments: [facility] [address] [place], [place], [phone] Absolute Lymph 1.39 {X10_3/ul} (Normal) Range: 0.83-4.51 [...] 4.6-6.2 WBC 5.6 K/mm3 (Normal) Range: 4.4-11.0 03-Dtg-24704:19 Comprehensive Metabolic Profil Comments: [facility] [address] [place], [place], [phone] GAP 13 (Normal) Range: 5-15 CO2 29.0 [...] A.D.A. criteria.Please note revised GLUCOSE reference range tyxuyzlvq15/02/2018. 77-Dcy-48546:19 Lipid Profile Comments: [facility] [address] [place], [address] VLDL Test not performed mg/dL (Normal) Range: [...] High Risk :19 Microalb:Creat Ratio,Random UR Comments: [facility] [address] [place], [place], [phone] MALB:CREAT 15.8 {mg/g_CRE} (Normal) MICROALBUMIN,UR 13.4 mg/L (Normal) UR CREAT 84.70 mg/dL (Normal) :19 Thyroid Stim Hormone (TSH) Comments: [facility] [address] [place], [address] TSH 1.82 {uIU/mL} (Normal) Range: 0.358-3.74 :19 Urinalysis, Complete Comments: How was Urine Obtained? CLEAN [facility] [address] [place], [address] MUCUS, URINE 0 SEEN {/hpf} [...] :19 Vitamin B12 353 pg/mL (Normal) Comments: [facility] [address] [facility] [place], [address] Range: 211-911 :19 Vitamin D,25 Hydroxy Comments: [facility] [address] [place], [phone] Vitamin D 25-OH 24.7 ng/mL (Abnormal) Range: 29.95-100.01 Comments: Vitamin D 25(OH) Status Range Deficiency <20 ng/mL (50nmol/L) Insuffciency 20 - 30 ng/mL (50 - 75 nmol/L) Sufficiency 30 - 100 ng/mL (75 - 250 nmol/L) Toxicity >100 ng/mL (>250 nmol/L) :02 HgA1C , Office (55407) HgA1C , Office 5.4 % (Normal) Range: 4.6 - 7.1 :02 Blood Glucose , Office (82120) Blood Glucose , Office 141 (Normal) :22 Lipid Profile Comments: [facility] [address] [place], [phone] VLDL 49 mg/dL (Abnormal) Range: 5-40 LDL [...] mg/dL High Risk :22 Liver Profile Comments: [facility] [address] [place], [phone] D BILI 0.09 mg/dL (Normal) Range: 0.00-0.30 T BILI 0.30 mg/dL (Normal) Range: 0.20-1.00 ALT 26 U/L (Normal) Range: 12-78 ALK P 55 U/L (Normal) Range: 45-117 AST 18 U/L (Normal) Range: 15-37 GLOB 3.4 g/dL (Normal) Range: 2.2-4.2 ALB 3.6 g/dL (Normal) Range: 3.4-5.0 Comments: Please note revised Albumin AND Globulin reference rangeeffective 2017. T PROT 7.0 g/dL (Normal) Range: 6.4-8.2 2-Ooo-264148:39 PSA (PROSTATE SPECIFIC Comments: PATIENT NOT FASTINGPERFORMED BY: [facility] Hospital[facility]efban3295 [facility] [id number] ANTIGEN) (V76.44) Prostate Specific Ag, 0.9 ng/mL (Normal) Range: 0.0-4.0 Serum Comments: [employer] S[employer] TechnologiesIA methodology. .According to the [place] [employer], [...] of malignant disease. :04 HgA1C , Office (07791) HgA1C , Office 5.6 % (Normal) Range: 4.6 - 7.1 :04 Blood Glucose , Office (95052) Blood Glucose , Office 117 (Normal) :37 CBC W/Diff, Automated Comments: [facility] [address] [place], [address] Absolute Lymph 1.18 {X10_3/ul} (Normal) Range: 0.83-4.51 [...] 4.6-6.2 WBC 5.2 K/mm3 (Normal) Range: 4.4-11.0 94-Dpu-67207:37 Comprehensive Metabolic Profil Comments: [facility] [address] [place], [place], [phone] GAP 5 (Normal) Range: 5-15 CO2 32.0 [...] (Normal) Range: 70-110 :37 Lipid Profile Comments: [facility] [address] [place], [address] VLDL 61 mg/dL (Abnormal) Range: [...] High Risk :37 Microalb:Creat Ratio,Random UR Comments: [facility] [address] [place], [address] MALB:CREAT Test not performed {mg/g_CRE} (Normal) MICROALBUMIN,UR < 5.0 mg/L (Normal) UR CREAT 105.00 mg/dL (Normal) :37 Thyroid Stim Hormone (TSH) Comments: [facility] [address] [place], [address] TSH 1.68 {uIU/mL} (Normal) Range: 0.358-3.74 :37 Urinalysis, Complete Comments: How was Urine Obtained? CLEAN [facility] [address]jnw[address]un[address] [place], [phone] MUCUS, URINE 0 SEEN {/hpf} (Normal) BACTERIA [...] :37 Vitamin B12 539 pg/mL (Normal) Comments: [facility] Rmbjqrhpgh9944 [place], [phone] Range: 211-911 :37 Vitamin D,25 Hydroxy Comments: [facility] [address] [place], [phone] Vitamin D 25-OH 42.0 ng/mL (Normal) Comments: Vitamin D 25(OH) Status Range Deficiency <20 ng/mL (50nmol/L) Insuffciency 20 - 30 ng/mL (50 - 75 nmol/L) Sufficiency 30 - 100 ng/mL (75 - 250 nmol/L) Toxicity >100 ng/mL (>250 nmol/L) Gastric Biopsy See Note (Normal) Comments: [facility] [address], [phone] :56 Comments: Patient: LETHA DEUTSCH : 1950 (65/M) Acct Num: [id number] Phys: Jose Antonio Mehta Unit Num: [id number] Loc: LABSPEC Specimen: [id number] Received: 10/21/161630 Spec Type: Gastric Bx TISSUES TISSUES: COMMENT The results of immunohistochemistry for Helicobacter pylori will be reported separately ([id number]). GROSS DESCRIPTION Received in fixative i s one container labeled with the patient's name and designated gastric/antrum biopsy. The specimen consists of two irregular fragments of light pacheco soft tissue that in aggregate measure 0.6 x 0.3 x 0 .1 cm. The specimen is totally submitted in one cassette. / SJ:berta 10/22/16 TC:3 CPT: 54866 HEADER OPERATION: EGD with biopsy PRE-OP DIAGNOSIS: [...] on file> IMMUNOHISTOCHEMISTRY See Note (Normal) Comments: [facility] [address] [place], [address] :00 Comments: Patient: LETHA DEUTSCH : 1950 (65/M) Acct Num: [id number] Phys: ToneyglennaJose Antonio Unit Num: [id number] Loc: LABSPEC Specimen: [id number] Received: 10/25/161212 Spec Type: IMMUNO TISSUES TISSUES: SPECIMEN INFORMATION: Tissue Source: Gastric antrum biopsy Clinical Info: Iron deficiency anemia Specimen Number: [id number] CPT code: 30691 METHODO LOGY: Deparaffinized sections of prefer/formalin-fixed tissue or PAP/DQ stained slides are incubated with monoclonal/polyclonal antibodies/oligonucleotide probes. Localization is made via biotin free immunoperoxidase method. Appropriate controls are performed and reacted as expected. Results on target cell population are indicated in the following table: RESULTS: ANTIBODY / CLONE RESULT H Pylori (polyclonal) negative These tests were developed and their performance characteristics determined by [facility]. They may not hav e been cleared or approved by the U.S. Food and Drug Administration. The FDA has determined that such clearance or approval is not necessary. INTERPRETATION: Gastric antrum, biopsy: Negative for Helicobacter pylori organisms. SJ:berta 10/26/16 PHYSICIAN AND INSTITUTION [address] [address] Signed Peter Ibanez 10/26/16 <signature on file> 6-Zfs-355675:26 CBC-Complete Blood Cnt No Diff Comments: [facility] [address] [place], [place], [phone] MPV 9.7 fL (Normal) Range: 6.2-12.0 PLT [...] 4.6-6.2 WBC 5.5 K/mm3 (Normal) Range: 4.4-11.0 4-Uly-170023:26 Iron Comments: [facility] [address] [place], [place], [phone] IRON 109 ug/dL (Normal) Range: 65-175 9-Mwx-710567:10 Basic Metabolic Profile (BMP) Comments: DR.STRUNETS MALHOTRA BMP,CBCD DR. CROW MALHOTRA PT/[facility] Ctcggsadku[address] [place], [place], [phone] GAP 7 (Normal) Range: 5-15 CO2 28.0 [...] 126 mg/dLsuggests DIABETES MELLITUS per A.D.A. criteria. 0-Yaj-619907:10 CBC W/Diff, Automated Comments: DR.STRUNETS MALHOTRA BMP,CBCD DR. CROW MALHOTRA PT/[facility] Rksnguufzn[address] [place], [place], [address] Absolute Lymph 0.85 {X10_3/ul} (Normal) Range: 0.83-4.51 [...] 4.6-6.2 WBC 3.9 K/mm3 (Abnormal) Range: 4.4-11.0 6-Vjb-827221:10 Prothrombin Time w/INR Comments: DR.STRUNETS MALHOTRA BMP,CBCD DR. CROW [facility]OTRA [facility] [address] [place], [place], [address] INR 1.5 (Normal) PROTIME 17.9 s (Abnormal) Range: 11.7-14.9 47-Olx-588323:31 Stool Occult Blood iFOB Comments: [facility] [address] [place], [place], [id number] STOB See Note (Normal) Comments: Order Date: 09/02/16 STOB iFOBOccult Blood Positive ORGANISM 1: OCCULT BLOOD POSITIVE 35-Sjc-353684:25 Basic Metabolic Profile (BMP) Comments: [facility] Yzmiubdnmp3989 [facility]. [place], [place], [phone] GAP 8 (Normal) Range: 5-15 CO2 29.0 [...] 7-18 GLU 98 mg/dL (Normal) Range: 70-110 54-Hty-270289:25 CBC-Complete Blood Cnt No Diff Comments: [facility] Jegkyvvltj7[address] [place], [place], [address] MPV 8.8 fL (Normal) Range: 6.2-12.0 PLT [...] 4.6-6.2 WBC 5.6 K/mm3 (Normal) Range: 4.4-11.0 10-Vpg-206949:25 Liver Profile Comments: [facility] Bfncqdwhgf[address] [place], [place], [address] D BILI 0.05 mg/dL (Normal) Range: 0.00-0.30 T BILI 0.20 mg/dL (Normal) Range: 0.20-1.00 ALT 24 U/L (Normal) Range: 12-78 ALK P 51 U/L (Normal) Range: 45-117 AST 13 U/L (Abnormal) Range: 15-37 GLOB 3.3 g/dL (Normal) Range: 2.3-3.5 ALB 3.7 g/dL (Normal) Range: 3.4-5.0 T PROT 7.0 g/dL (Normal) Range: 6.4-8.2 57-Yfz-391792:25 Prothrombin Time w/INR Comments: [facility] [address] [place], [address] INR > 19.5 (Abnormal) Comments: RESULTS CALLED TO BRITTANEY 09/02/16 1753 Vito Arteaga.REPORT READ BACK BY SAME. PROTIME > 120.0 s (Abnormal) Range: 11.7-14.9 14-Wcx-995842:53 Prothrombin Time w/INR Comments: [facility] [address] [place], [address] INR > 19.5 (Abnormal) Comments: CRITICAL VALUE VERIFIED. CALLED TO GERRY AT [facility]09/02/16 1447 Alice Luque.RESULTS READ BACK BY SAME . PROTIME > 120.0 s (Abnormal) Range: 11.7-14.9 65-Jzf-133179:33 Prothrombin Time w/INR Comments: [facility] [address] [place], [address] INR 1.9 (Normal) PROTIME 21.2 s (Abnormal) Range: 11.7-14.9 :51 HgA1C , Office (84098) HgA1C , Office 5.5 % (Normal) Range: 4.6 - 7.1 :51 Blood Glucose , Office (41993) Blood Glucose , Office 131 (Normal) 74-Mxs-421390:44 Prothrombin Time w/INR Comments: [facility] [address] [place], [address] INR 2.4 (Normal) PROTIME 25.5 s (Abnormal) Range: 11.7-14.9 08-Cve-492868:11 Prothrombin Time w/INR Comments: [facility] [address] [place], [address] INR 1.5 (Normal) PROTIME 17.7 s (Abnormal) Range: 11.7-14.9 :47 Prothrombin Time w/INR Comments: [facility] Vtlrzmjavy[address] [place], [address] INR 1.5 (Normal) PROTIME 17.7 s (Abnormal) Range: 11.7-14.9 4-Cgs-104940:45 Basic Metabolic Profile (BMP) Comments: Order Date: 06/09/16Order Info: [id number] - *BMPDR. CRWO ORDERED PTINR STANDING ORDER.Order Date: 06/09/16Order Info: [id number] - *BMPComments: Reason:[facility] Ertup[address]pyxq[address], [address] GAP 9 (Normal) Range: 5-15 CO2 30.0 [...] Range: 70-110 :02 Prothrombin Time w/INR Comments: [facility] Zawxiwtslr[address] [place], [address] INR 1.8 (Normal) PROTIME 20.1 s (Abnormal) Range: 11.7-14.9 :27 POTASSIUM SERUM (96997) Comments: STAT; Order Date: 06/30/16Order Info: [id number] - KComments: STATOrder Date: 06/30/16Order Info: 2823-3 - KComments: [facility] Cjkqzyzijp9109 [place], [address] K 4.6 mmol/L Range: 3.5-5.1 (Normal) Vitamin B2, Whole 236 ug/L (Normal) Comments: PATIENT NOT FASTINGPERFORMED BY: CB [facility] Bdxkrx3134 Hansen RoadDublin [place] [id number] BY: [address] [id number] 5:40 Blood Range: 137-370 Comments: Reference interval reflects flavinadeninedinucleotide (FAD), that accounts for approximately 90% of the total riboflavin in whole blood. 90-Cla-691513:40 Vitamin B6, Plasma Comments: PATIENT NOT FASTINGPERFORMED BY: [facility] Uizsxl5699 Hansen RoadDublin [place] [id number] BY: [address] [id number] (88342) Vitamin B6 36.6 ug/L (Normal) Range: 5.3-46.7 96-Fmh-430788:40 ALCOHOL, ETHYL (BLOOD) Comments: serum alcohol; PATIENT NOT FASTINGPERFORMED BY: [facility] Akvall0663 Hansen RoadDublin [place] [id number] BY: [address] [id number] (34574) Ethanol Negative % (Normal) 15-Rxi-893868:40 AMMONIA (30557) Comments: PATIENT NOT FASTINGPERFORMED BY: [facility] Prblbw5100 Hansen RoadDublin [place] [id number] BY: [address] [id number] Ammonia, Plasma 42 ug/dL (Normal) Range: 27-102 53-Fkq-351795:40 VITAMIN B-12 Comments: PATIENT NOT FASTINGPERFORMED BY: [facility] Ttvufu1538 Hansen RoadDublin [place] [id number] BY: [address] [id number] (CYANOCOBALAMIN) (92895) Vitamin B12 417 pg/mL (Normal) Range: 211-946 20-Ply-716449:40 SED RATE ERYTHROCYTE Comments: PATIENT NOT FASTINGPERFORMED BY: [place] 0318270 [facility] [id number] BY: [address] [id number] (69366) Sedimentation Rate-Westergren 8 mm/h (Normal) Range: 0-30 18-Nzv-477071:40 RHEUMATOID FACTOR-QUANT Comments: PATIENT NOT FASTINGPERFORMED BY: [employer] [id number] BY: [address] [id number] (70921) RA Latex Turbid. 10.8 {IU/mL} (Normal) Range: 0.0-13.9 96-Ixm-241459:40 METABOLIC PANEL, Comments: PATIENT NOT FASTINGPERFORMED BY: [employer] [id number] [facility] [id number] BY: [employer] [id number] COMPREHENSIVE (21141) ALT (SGPT) 25 [iU]/L (Normal) Range: 0-44 [...] Glucose, Serum 100 mg/dL (Abnormal) Range: 65-99 94-Qhq-631997:40 C-REACTIVE PROTEIN Comments: PATIENT NOT FASTINGPERFORMED BY: [employer] [id number] BY: [employer] [id number] (22290) C-Reactive Protein, Quant 0.9 mg/L (Normal) Range: 0.0-4.9 61-Etq-660747:40 CBC (AUTO) (04753) Comments: PATIENT NOT FASTINGPERFORMED BY: [employer] [address] [id number] BY: [employer] [id number] Platelets 194 {x10E3/uL} (Normal) Range: 150-379 RDW 15.6 % (Abnormal) Range: 12.3-15.4 MCHC 33.1 g/dL (Normal) Range: 31.5-35.7 MCH 34.4 pg (Abnormal) Range: 26.6-33.0 MCV 104 fL (Abnormal) Range: 79-97 Hematocrit 39.9 % (Normal) Range: 37.5-51.0 Hemoglobin 13.2 g/dL (Normal) Range: 12.6-17.7 RBC 3.84 {x10E6/uL} (Abnormal) Range: 4.14-5.80 WBC 5.9 {x10E3/uL} (Normal) Range: 3.4-10.8 00-Qkp-072620:40 CHIQUI (ANTINUCLEAR ANTIBODY) Comments: PATIENT NOT FASTINGPERFORMED BY: [employer] HospitalMgkxne6007 [facility] [id number] BY: [place] [id number] (620[address]) CHIQUI Direct Negative (Normal) :40 TSH (23487) Comments: PATIENT NOT FASTINGPERFORMED BY: [employer] [id number] BY: [address] [id number] TSH 2.350 {uIU/mL} (Normal) Range: 0.450-4.500 :40 T4, FREE (THYROXINE) Comments: PATIENT NOT FASTINGPERFORMED BY: [place] 0318270 [facility] [id number] BY: [address] [id number] (58644) T4,Free(Direct) 0.95 ng/dL (Normal) Range: 0.82-1.77 :40 T3, FREE (TRIDOTHYRONINE) Comments: PATIENT NOT FASTINGPERFORMED BY: [employer] [id number] [facility] [id number] BY: [address] [id number] (66340) Triiodothyronine,Free,Serum 2.7 pg/mL (Normal) Range: 2.0-4.4 32-Fug-435396:40 CALCIFIDIOL (39256) VIT D Comments: PATIENT NOT FASTINGPERFORMED BY: [address] [id number] BY: [address] [id number] 25 Vitamin D, 25-Hydroxy 43.4 ng/mL (Normal) Range: 30.0-100.0 Comments: Vitamin D deficiency has been defined by the [place] of[place] and an Endocrine Society practice guideline as alevel of serum 25-OH vitamin D less than 20 ng/mL (1,2).The Endocrine Society went on to further define vitamin Dinsufficiency as a level between 21 and 29 ng/mL (2).1. IOM ([place] of [employer]). 2010. Dietary reference intakes for calcium and D. Ca DC: The National Academies Press.2. Elyse MF, Saumya PUENTE, Nai MARIANO, et al. Evaluation, treatment, and prevention of vitamin D deficiency: an Endocrine Society clinical practice guideline. JCEM. 2010; 96(7):1911-30. 90-Cby-978416:45 Alcohol, Blood (Medical)-Serum Comments: [facility] Mqmafheupf[address] NewtonNeri [place], [place], [address] SERUM ETOH 353.0 mg/dL (Abnormal) Comments: CALLED KEESHA LOBO RN ED [place] 2054PM MAF READ BACK BY SAMEThe serum:whole blood ethanol ratio is approximately 1.14and varies slightly with hematocrit.Medical Alcohol reference interval and critical v alue innon-tolerant individuals; 50 - 100 Impairment 100 Intoxication 100 - 250 Severe Poisoning 250 - 400 Deep/possible fatal coma 10-Xph-098489:45 Basic Metabolic Profile (BMP) Comments: 'TROP' Serial specimen #1, #2, #3, or #4: 1[facility] A[address]ikqlsvtc[address]. [place], [address] GAP 10 (Normal) Range: 5-15 CO2 26.0 [...] Range: 70-110 :45 CBC W/Diff, Automated Comments: [facility] Nzeitkvmhu[address] [place], [place], [address] Absolute Lymph 2.30 {X10_3/ul} (Normal) Range: 0.83-4.51 [...] Range: 4.4-11.0 :45 Partial Thromboplast Time Comments: [facility] Rahfakcppf[address] [place], [place], [address] PTT 28.3 s (Normal) Range: 24.1-36.2 :45 Prothrombin Time w/INR Comments: [facility] [address] [place], [address] INR 1.1 (Normal) PROTIME 14.1 s (Normal) Range: 11.7-14.9 :45 Troponin-I Comments: 'TROP' Serial specimen #1, #2, #3, or #4: [facility] [address]ltq[address] [place], [place], [address] TROPONIN-I < 0.02 ng/mL (Normal) Comments: TROPONIN-I EXPECTED VALUES <0.05 NEGATIVE 0.06 - 0.59 AT RISK OF NH > OR = 0.60 SUGGEST NH :24 Prothrombin Time w/INR Comments: [address] [place], [place], [address] ; managed by [facility] INR 1.3 (Normal) PROTIME 15.2 s (Abnormal) Range: 11.7-14.9 :46 INR Fingerstick Comments: [address] [place] [address] INR ISTAT 3.90 (Abnormal) Comments: Critical Value > 3.5 :46 Prothrombin Time Fingerstick Comments: [address] [place] [address] PROTIME ISTAT 43.7 {SEC} (Abnormal) Range: 11.9-14.4 Comments: Reference Range 11.9 - 14.4 :46 Prothrombin Time w/INR Comments: [place] [address] [place], [address] INR 4.0 (Abnormal) Comments: CRITICAL VALUE VERIFIED. CALLED TO IWODXWR25 Nova Walters.RESULTS READ BACK BY SAME . PROTIME 38.0 s (Abnormal) Range: 11.7-14.9 65-Yws-197948:49 Prothrombin Time w/INR Comments: [facility] Zjmclndejr16[address] [place], [phone] INR 2.8 (Normal) PROTIME 28.4 s (Abnormal) Range: 11.7-14.9 09-Nke-977548:52 Basic Metabolic Profile (BMP) Comments: Order Date: 05/04/16Order Info: [id number] - *BMPOrder Date: 05/04/16Order Info: [id number] - *Brain Natriuretic Peptide BNPComments: Reason:[facility] [address] [place], [address] GAP 10 (Normal) Range: 5-15 CO2 [...] 7-18 GLU 104 mg/dL (Normal) Range: 70-110 12-Eac-327091:52 BNP,B-Type NATRIURETIC PEPTIDE Comments: Order Date: 05/04/16Order Info: [id number] - *Brain Natriuretic Peptide BNPOrder Date: 05/04/16Order Info: [id number] - *Brain Natriuretic Peptide BNPWooCoshocton Regional Medical Center [address]vucnpn[address] [place], [address] B-TYPE ARASELI PEP 240.6 pg/mL (Abnormal) Range: 0-100 36-Qwo-017053:52 Prothrombin Time w/INR Comments: [facility] Wsevhuzqjx26[address] [place], [address] INR 2.5 (Normal) PROTIME 25.8 s (Abnormal) Range: 11.7-14.9 72-Hsd-481425:46 Liver Profile Comments: Order Date: 12/12/15Order Date: 12/12/15[facility] Npkyeigowo8[address] [place], [address] D BILI 0.12 mg/dL (Normal) Range: 0.00-0.30 T BILI 0.30 mg/dL (Normal) Range: 0.20-1.00 ALT 35 U/L (Normal) Range: 12-78 ALK P 56 U/L (Normal) Range: 45-117 AST 25 U/L (Normal) Range: 15-37 Comments: Slight Hemolysis, Result may be falsely increased. GLOB 3.7 g/dL (Abnormal) Range: 2.3-3.5 ALB 3.7 g/dL (Normal) Range: 3.4-5.0 T PROT 7.4 g/dL (Normal) Range: 6.4-8.2 15-Ger-791802:46 Prothrombin Time w/INR Comments: [facility] [address]lqpnttqsb[address] [place], [address] INR 3.6 (Abnormal) Comments: CRITICAL VALUE REPEATED AND VERIFIED. CALLED TO DARRYL MEYERS'S OFFICE.04/26/16 1238 Randy Buchanan.RESULTS READ BACK BY SAME. PROTIME 35.0 s (Abnormal) Range: 11.7-14.9 :58 Basic Metabolic Profile (BMP) Comments: [facility] Jdpvetzklh9130 ALYSA Maki, [phone] GAP 7 (Normal) Range: 5-15 CO2 32.0 [...] Range: 70-110 :58 Prothrombin Time w/INR Comments: [facility] Ewadkhzkji[address] [place], [place], [address] INR 1.9 (Normal) PROTIME 20.9 s (Abnormal) Range: 11.7-14.9 :08 Prothrombin Time w/INR Comments: [address] [place], [address] INR 3.3 (Normal) PROTIME 32.5 s (Abnormal) Range: 11.7-14.9 :34 Prothrombin Time w/INR Comments: [facility] [address]fkkg[address] [place], [address] ; managed by cardio INR 2.6 (Normal) PROTIME 27.0 s (Abnormal) Range: 11.7-14.9 :16 HgA1C , Office (13284) HgA1C , Office 5.7 % (Normal) Range: 4.6 - 7.1 26-Uhr-888579:13 Prothrombin Time w/INR Comments: [address] [place], [address] INR 2.6 (Normal) PROTIME 27.1 s (Abnormal) Range: 11.7-14.9 :26 CBC W/Diff, Automated Comments: [address] [place], [address] Absolute Lymph 1.54 {X10_3/ul} (Normal) Range: 0.83-4.51 [...] LIPID MAG CBCD CMP MIACRE [facility] Dkoirawpao[address] [place], [place], [address] GAP 4 (Abnormal) Range: 5-15 CO2 28.0 [...] LIPID MAG CBCD CMP MIACRE [facility] Aqmqqweqxo04[address] [place], [place], [id number] VLDL 72 mg/dL (Abnormal) Range: 5-40 LDL [...] ORDERED VITD LIPID MAG CBCD [facility] Beqcwrpydh6916 [address] [place], [id number](208 MG 2.6 mg/dL (Abnormal) Range: 1.8-2.4 :26 Microalb:Creat Ratio,Random UR Comments: [facility] [address]qzwwzyrvj7275 [place], [address] MALB:CREAT 24.3 {mg/g_CRE} (Normal) MICROALBUMIN,UR 70.9 mg/L (Normal) UR CREAT 292.00 mg/dL (Normal) :26 Prothrombin Time w/INR Comments: [facility] Fyijalafxy5352 [place], [address] INR 3.5 (Abnormal) Comments: CRITICAL VALUE REPEATED AND VERIFIED. CALLED TO ORTIZ LABOY'S OFFICE.03/16/16 0742 Randy Buchanan.RESULTS READ BACK BY SAME. PROTIME 33.9 s (Abnormal) Range: 11.7-14.9 :26 Thyroid Stim Hormone (TSH) Comments: ORDERED PT/INRDR.IRVIN ORDERED VITD LIPID MAG CBCD [facility] Yxgwluaobm7270 [place], [address] TSH 2.35 {uIU/mL} (Normal) Range: 0.358-3.74 :26 Urinalysis, Complete Comments: How was Urine Obtained? CLEAN [facility] Xvavamvrrt4172 [place], [address] HYALINE CAST 5-10 SEEN {/lpf} (Normal) [...] Yellow (Normal) :26 Vitamin D,25 Hydroxy Comments: [facility] [address] [place], [address] Vitamin D 25-OH 39.8 ng/mL (Normal) Comments: Vitamin D 25(OH) Status Range Deficiency <20 ng/mL (50nmol/L) Insuffciency 20 - 30 ng/mL (50 - 75 nmol/L) Sufficiency 30 - 100 ng/mL (75 - 250 nmol/L) Toxicity >100 ng/mL (>250 nmol/L) :03 Prothrombin Time w/INR Comments: [facility] [address] [place], [address] INR 4.0 (Abnormal) Comments: CRITICAL VALUE REPEATED AND VERIFIED. CALLED TO [facility]03/10/16 0907 Alice Luque.RESULTS READ BACK BY SAME . PROTIME 37.4 s (Abnormal) Range: 11.7-14.9 :57 Prothrombin Time w/INR Comments: [facility] [address] [place], [address] INR 1.6 (Normal) PROTIME 18.3 s (Abnormal) Range: 11.7-14.9 :02 Prothrombin Time w/INR Comments: [facility] [address] [place], [address] INR 1.8 (Normal) PROTIME 20.6 s (Abnormal) Range: 11.7-14.9 :12 Prothrombin Time w/INR Comments: [place] [address] [place], [address] INR 2.3 (Normal) PROTIME 24.4 s (Abnormal) Range: 11.7-14.9 :50 Prothrombin Time w/INR Comments: [place] [address] [place], [address](265) INR 2.8 (Normal) PROTIME 28.9 s (Abnormal) Range: 11.7-14.9 :40 INR Fingerstick Comments: [place] [address] [place] [address](686) INR ISTAT 2.40 (Normal) Comments: Critical Value > 3.5 :40 Prothrombin Time Fingerstick Comments: [place] [address] [place] [address] PROTIME ISTAT 27.5 {SEC} (Abnormal) Range: 11.9-14.4 Comments: Reference Range 11.9 - 14.4 :54 Prothrombin Time w/INR Comments: THERE IS NO VRO CHARGE ON THIS PATIENT; THIS PATIENTRETURNED FROM TUESDAY. A BMP AND A PT WAS SUPPOSED TO BEDRAWN, ONLY THE BMP WAS DONE. [place] [address] [place], [address] INR 2.8 (Normal) PROTIME 28.4 s (Abnormal) Range: 11.7-14.9 :38 Basic Metabolic Profile (BMP) Comments: Order Date: 01/08/16Comments: Reason:Order Date: 01/08/16Comments: Reason:[place] [address] [place], [address] GAP 9 (Normal) Range: 5-15 CO2 [...] A.D.A. criteria. :52 Prothrombin Time w/INR Comments: [facility] [address] [place], [address](237) INR 4.6 (Abnormal) Comments: CRITICAL VALUE REPEATED AND VERIFIED. CALLED TO [facility]02/05/16 1003 Alice Luque.RESULTS READ BACK BY SAME . PROTIME 41.9 s (Abnormal) Range: 11.7-14.9 :01 Prothrombin Time w/INR Comments: [facility] [address] [place], [place], [phone](548) INR 2.5 (Normal) PROTIME 26.0 s (Abnormal) Range: 11.7-14.9 :40 Prothrombin Time w/INR Comments: [facility] [address] [place], [place], [phone](968) INR 2.5 (Normal) PROTIME 26.1 s (Abnormal) Range: 11.7-14.9 :52 Prothrombin Time w/INR Comments: [facility] [address] [place], [place], [address] INR 2.3 (Normal) PROTIME 24.3 s (Abnormal) Range: 11.7-14.9 5-Vxd-716622:24 Basic Metabolic Profile (BMP) Comments: Order Date: 01/13/16Comments: Reason: For Out patient Cardioversion on 02/16/16Order Date: 01/13/16Comments: Reason: For Out patient Cardioversion on 02/16/16[facility] [address] [place], [address] GAP 5 (Normal) Range: 5-15 CO2 33.0 [...] Comments: Order Date: 12/09/15Interface Comments: Reason:Order Date: 12/09/15[facility] Shaffuteak[address]04 [address] [place], [phone] GAP 9 (Normal) Range: 5-15 CO2 29.0 [...] 01/05/16Interface Comments: Reason:Atrial fib, on CoumadinOrder Date: 01/05/16[facility] Skzndtxavx[address] [place], [place], [phone](265) INR 3.6 (Abnormal) Comments: CRITICAL VALUE REPEATED AND VERIFIED. CALLED TO CANDACE P001/07/16 0819 Terrie Toussaint.RESULTS READ BACK BY CANDACE. PROTIME 34.9 s (Abnormal) Range: 11.7-14.9 :21 Prothrombin Time w/INR Comments: [facility] [address]uc[address] [place], [place], [phone](203) INR 2.1 (Normal) PROTIME 23.1 s (Abnormal) Range: 11.7-14.9 :12 Prothrombin Time w/INR Comments: Order Date: 12/26/15Interface Comments: draw on arrivalOrder Date: 12/26/15[facility] [address] [place], [place], [phone](703) INR 2.9 (Normal) PROTIME 29.2 s (Abnormal) Range: 11.7-14.9 :08 Prothrombin Time w/INR Comments: [facility] [address] [place], [place], [phone](650) INR 1.7 (Normal) PROTIME 19.6 s (Abnormal) Range: 11.7-14.9 87-Aqp-17908:03 Prothrombin Time w/INR Comments: Order Date: 12/18/15Order Date: 12/18/15[facility] [address]abvb[address] [place], [address] INR 4.1 (Abnormal) Comments: CRITICAL VALUE REPEATED AND VERIFIED. CALLED TO DARRYL LABOY'S OFFICE.12/23/15 0803 Randy Buchanan.RESULTS READ BACK BY SAME. PROTIME 38.6 s (Abnormal) Range: 11.7-14.9 4-Yuc-274950:16 Basic Metabolic Profile (BMP) Comments: Order Date: 12/18/15Interface Comments: Reason:Order Date: 12/18/15[facility] [address]oonadhvr[address] [place], [place], [phone] GAP 9 (Normal) Range: 5-15 CO2 28.0 [...] A.D.A. criteria. 16-Dec-20158:11 Prothrombin Time w/INR Comments: [facility] Zglutccrfo2443 [place], [address] INR 3.6 (Abnormal) Comments: CRITICAL VALUE REPEATED AND VERIFIED. CALLED TO TORITO MEHTA12/16/15 Ondina Luque.RESULTS READ BACK BY SAME . PROTIME 34.5 s (Abnormal) Range: 11.7-14.9 :10 Basic Metabolic Profile (BMP) Comments: Order Date: 12/04/15Interface Comments: Reason:Order Date: 12/04/15[facility] [address] [place], [place], [address] GAP 8 (Normal) Range: 5-15 CO2 28.0 [...] 7-18 GLU 85 mg/dL (Normal) Range: 70-110 13-Edj-97715:10 Lipid Profile Comments: Order Date: 12/04/15Interface Comments: Reason:Order Date: 12/04/15[facility] [address] [place], [place], [address] VLDL Test not performed mg/dL (Normal) Range: [...] Comments: Order Date: 12/04/15Interface Comments: Reason:Order Date: 12/04/15[facility] [address] [place], [id number] D BILI 0.11 mg/dL (Normal) Range: 0.00-0.30 T BILI 0.30 mg/dL (Normal) Range: 0.20-1.00 ALT 63 U/L (Normal) Range: 12-78 ALK P 64 U/L (Normal) Range: 50-136 AST 33 U/L (Normal) Range: 15-37 GLOB 3.2 g/dL (Normal) Range: 2.3-3.5 ALB 3.5 g/dL (Normal) Range: 3.4-5.0 T PROT 6.7 g/dL (Normal) Range: 6.4-8.2 :10 Magnesium Comments: Order Date: 12/04/15Interface Comments: Reason:Order Date: 12/04/15[facility] [address] [place], [phone] MG 2.1 mg/dL (Normal) Range: 1.8-2.4 :10 Prothrombin Time w/INR Comments: Order Date: 12/04/15Interface Comments: Reason:Order Date: 12/04/15[facility] [address] [place], [phone]([phone] INR 1.7 (Normal) PROTIME 19.3 s (Abnormal) Range: 11.7-14.9 :10 Thyroid Stim Hormone (TSH) Comments: Order Date: 12/04/15Interface Comments: Reason:Order Date: 12/04/15[facility] [address] [place], [address] TSH 1.65 {uIU/mL} (Normal) Range: 0.358-3.74 :41 MAGNESIUM ([id number]) Comments: PATIENT NOT FASTINGPERFORMED BY: [facility] Gwxwdn4332 [facility] [id number] Magnesium, Serum 2.1 mg/dL (Normal) Range: 1.6-2.3 [...] Basic Comments: PATIENT NOT FASTINGPERFORMED BY: [facility] Hlhogi5368 [facility] [id number] Information: [id number] ([id number]) Calcium, Serum 9.1 mg/dL (Normal) Range: 8.6-10.2 [...] Range: 65-99 :21 Blood Glucose , Office (35123) Blood Glucose , Office 99 (Normal) :21 HgA1C , Office (77375) HgA1C , Office 5.0 % (Normal) Range: 4.6 - 7.1 31-Dug-827350:49 RETICULOCYTE COUNT (47564) Comments: PATIENT NOT FASTINGPERFORMED BY: [facility]2 [facility] [id number] Reticulocyte Count 2.4 % (Normal) Range: 0.6-2.6 :49 VITAMIN B-12 (CYANOCOBALAMIN) Comments: PATIENT NOT FASTINGPERFORMED BY: [facility] HospitalKzdook7780 [facility] [id number] Information: [id number], [id number] (23060) Vitamin B12 560 pg/mL (Normal) Range: 211-946 :36 Bilirubin, Direct Comments: [facility] Fqotcqhgzg5751 [facility]. [place], [place], [address] D BILI 0.14 mg/dL (Normal) Range: 0.00-0.30 :36 CBC W/Diff, Automated Comments: [facility] [address] [place], [address] Absolute Lymph 1.26 {X10_3/ul} (Normal) Range: 0.83-4.51 [...] 4.6-6.2 WBC 5.1 K/mm3 (Normal) Range: 4.4-11.0 01-Xwo-62316:36 Comprehensive Metabolic Profil Comments: [facility] [address] [place], [place], [id number] GAP 6 (Normal) Range: 5-15 CO2 30.0 [...] per A.D.A. criteria. :36 Lipid Profile Comments: [facility] [address] [place], [place], [id number] VLDL 62 mg/dL (Abnormal) Range: 5-40 LDL [...] High Risk :36 Microalb:Creat Ratio,Random UR Comments: [facility] Uapqbjzysn9959 [facility] [address]. [place], [place], [id number] MALB:CREAT 142.0 {mg/g_CRE} (Abnormal) MICROALBUMIN,UR 223.0 mg/L (Normal) UR CREAT 157.00 mg/dL (Normal) :36 Thyroid Stim Hormone (TSH) Comments: [facility] [address] [place], [place], [id number] TSH 1.17 {uIU/mL} (Normal) Range: 0.358-3.74 :36 Urinalysis, Complete Comments: How was Urine Obtained? [facility] [address]cxmjdd[address] [place], [place], [id number] MUCUS, URINE 0 SEEN {/hpf} (Normal) BACTERIA [...] Yellow (Normal) :36 Vitamin D,25 Hydroxy Comments: [facility] Gsuqtsbqfa1971 [facility] [address]. [place], [place], [id number] Vitamin D 25-OH 21.0 ng/mL (Normal) Comments: Vitamin D 25(OH) Status Range Deficiency <20 ng/mL (50nmol/L) Insuffciency 20 - 30 ng/mL (50 - 75 nmol/L) Sufficiency 30 - 100 ng/mL (75 - 250 nmol/L) Toxicity >100 ng/mL (>250 nmol/L) :29 HgA1C , Office (75204) HgA1C , Office 5.6 % (Normal) Range: 4.6 - 7.1 :29 Blood Glucose , Office (98984) Blood Glucose , Office 96 (Normal) :29 CBC W/Diff, Automated Comments: [facility] Xtskuvydbn9640 [facility] [address] [place], [place], [address] Absolute Lymph 2.04 {X10_3/ul} (Normal) Range: 0.83-4.51 [...] 4.6-6.2 WBC 7.9 K/mm3 (Normal) Range: 4.4-11.0 18-Luy-038757:29 Comprehensive Metabolic Profil Comments: [facility] Mj[address]yssoxf11[address] [place], [place], [phone] GAP 12 (Normal) Range: 5-15 CO2 25.0 [...] HOMEOSTASIS per A.D.A. criteria. :16 Rapid Flu (92578 x 2) Influenza A Ag neg a and b (Normal) :13 Basic Metabolic Profile (BMP) Comments: [facility] [address] [place], [address] GAP 4 (Abnormal) Range: 5-15 CO2 33.0 [...] 7-18 GLU 90 mg/dL (Normal) Range: 70-110 53-Aod-072540:50 HgA1C , Office (44171) HgA1C , Office 5.2 % (Normal) Range: 4.6 - 7.1 55-Pzi-448229:50 Blood Glucose , Office (50718) Blood Glucose , Office 111 (Normal) :48 Basic Metabolic Profile (BMP) Comments: [facility] [address] [place], [id number] GAP 7 (Normal) Range: 5-15 CO2 31.0 [...] A.D.A. criteria. :48 T4 Total, Thyroxin Comments: [facility] [address] [place], [id number] T4 THYROXIN 6.7 ug/dL (Normal) Range: 4.5-12.1 :48 Thyroid Stim Hormone (TSH) Comments: [facility] [address] [place], [address] TSH 1.02 {uIU/mL} (Normal) Range: 0.358-3.74 :35 CBC W/Diff, Automated Comments: [facility] [address] [place], [address] Absolute Lymph 1.13 {X10_3/ul} (Normal) Range: [...] Range: 4.4-11.0 :35 Comprehensive Metabolic Profil Comments: [facility] [address]so[address] [place], [address] GAP 5 (Normal) Range: 5-15 [...] (Normal) Range: 70-110 :35 Lipid Profile Comments: [facility] [address] [place], [place], [address] VLDL 44 mg/dL (Abnormal) Range: 5-40 LDL [...] High Risk :35 Microalb:Creat Ratio,Random UR Comments: [facility] [address] [place], [address] MALB:CREAT 31.9 {mg/g_CRE} (Abnormal) MICROALBUMIN,UR 31.7 mg/L (Normal) UR CREAT 99.40 mg/dL (Normal) :35 Thyroid Stim Hormone (TSH) Comments: [facility] [address] [place], [address] TSH 1.05 {uIU/mL} (Normal) Range: 0.358-3.74 :35 Urinalysis, Complete Comments: How was Urine Obtained? [facility] [address] [place], [address] MUCUS, URINE 0 SEEN {/hpf} [...] COLOR Yellow (Normal) :48 HgA1C , Office (74158) HgA1C , Office 5.2 % (Normal) Range: 4.6 - 7.1 :48 Blood Glucose , Office (22262) Blood Glucose , Office 114 (Normal) 70-Ecd-558104:03 MRSA/SAID SCREEN Comments: [facility] [address] [place], [address] MRSA+SAID SCRN See Note (Normal) Comments: MRSA/SAID SCRNS. AUREUS S. aureus NegativeMRSA MRSA Negative :13 CBC W/Diff, Automated Comments: Test performed at:[facility] [address] [place] [address] Absolute Lymph [...] :13 Comprehensive Metabolic Profil Comments: Test performed at:[facility] [address] [place] [address] GAP 4 (Abnormal) Range: 5-15 [...] 70-110 :13 Lipid Profile Comments: Test performed at:[facility] [address] [place] [address] VLDL 35 mg/dL (Normal) Range: [...] :13 Microalb:Creat Ratio,Random UR Comments: Test performed at:[facility] Ysxqlaoupm2198 [facility] [place] [address] MALB:CREAT 5.0 {mg/g_CRE} (Normal) MICROALBUMIN,UR 5.2 mg/L (Normal) UR CREAT 89.50 mg/dL (Normal) :13 Thyroid Stim Hormone (TSH) Comments: Test performed at:[facility] [address] [place] [address] TSH 0.97 {uIU/mL} (Normal) Range: 0.358-3.74 :13 Urinalysis, Routine (Dipstick) Comments: How was Urine Obtained? CLEAN CATCHTest performed at:[facility] Wdojbldqse5670 [facility] [place] [address] LEUK ESTERASE Negative /ul (Normal) OCCULT BLOOD-UR Negative /ul (Normal) NITRITE UR Negative (Normal) UROBILI Normal mg/dL (Normal) PROT DIPSTX Negative mg/dL (Normal) pH UR 6.0 (Normal) Range: 5.0 - 8.0 SP.GR. DIPSTX 1.015 (Normal) Range: 1.002-1.030 KETONE UR Negative mg/dL (Normal) BILIRUBIN URINE Negative mg/dL (Normal) GLUCOSE, UR Normal mg/dL (Normal) CLARITY Clear (Normal) COLOR Yellow (Normal) :35 HgA1C , Office (37458) HgA1C , Office 5.7 % (Normal) Range: 4.6 - 7.1 :35 Blood Glucose , Office (33763) Blood Glucose , Office 111 (Normal) :40 Miscellaneous Lab Procedure Comments: Comments: DRUG SCREEN [id number](s) Ordered: DRUG SCREEN [id number] performed at:[facility] Gmwdxigmoc9310 [facility] [place] [address] ; ordered by [place] [employer] [facility] Comments: [id number] 6+OXYCODONE-BUND (ng/mL)DRUG RESULT SCREEN CUTOFF____ Amphetamines NEGAT LAB (Normal) BARI ng/mL 1000Barbiturates NEGATIVE ng/mL 200Benzodiazepines NEGATIVE ng/mL 200Cannabinoid NEGATIVE ng/mL 20Cocaine (Metab) NEG TEST ATIVE ng/mL 300Opiates NEGATIVE ng/mL 300 Opiates test includes Codeine, Morphine, Hydromorphone, Hydrocodone.Oxycodone/Oxymorphone,Urine NEGATIVE ng/mL 300 Test includes Oxydodone and Oxymorphone. TESTING PERFORMED AT [facility]. ORIGINAL REPORT ON FILE IN LAB CONTAINS ADDITIONAL TEST SITE INFORMATIO N. 5-Zcw-386238:40 Urine Drug Screen (VISTA) Comments: Comments: DRUG SCREEN [id number] of Drugs Taken or Suspected? .Test performed at:[facility] [address] [place] [address] THC NEGATIVE (Normal) PCP NEGATIVE [...] TESTING MUST BE ORDERED SEPARATELY. USE TESTMNEMONIC: [facility] :25 Vitamin D,25 Hydroxy Comments: Has pt arrived? YTest performed at:[facility] Tasoctdpsy6865 [facility] [place] [address] Vitamin D 25-OH 38.2 ng/mL (Normal) Comments: Vitamin D 25(OH) Status Range Deficiency <20 ng/mL (50nmol/L) Insuffciency 20 - 30 ng/mL (50 - 75 nmol/L) Sufficiency 30 - 100 ng/mL (75 - 250 nmol/L) Toxicity >100 ng/mL (>250 nmol/L) :24 Urinalysis, Routine (Dipstick) Comments: Has pt arrived? YHow was Urine Obtained? CLEAN CATCHTest performed at:[facility] [address]ukro9025 [place] [address] LEUK ESTERASE Negative /ul (Normal) [...] pt arrived? YHas pt arrived? YTest performed at:[facility] [address] [place] [address] GAP 5 (Normal) Range: 5-15 CO2 [...] pt arrived? YHas pt arrived? YTest performed at:[facility] [address] [place] [address] VLDL 12 mg/dL (Normal) Range: 5-40 [...] UR Comments: Has pt arrived? YTest performed at:[facility] Zajbsqjjlu6228 [facility] [place] [address] MALB:CREAT 4.2 {mg/g_CRE} (Normal) MICROALBUMIN,UR 5.6 mg/L (Normal) UR CREAT 131.9 mg/dL (Normal) :23 Thyroid Stim Hormone (TSH) Comments: Has pt arrived? YHas pt arrived? YTest performed at:[facility] [address] [place] [address] TSH 1.09 {uIU/mL} (Normal) Range: 0.358-3.74 :22 CBC W/Diff, Automated Comments: Has pt arrived? YTest performed at:[facility] Yiqmojqxxy6682 [facility] [place], [place] [id number] Absolute Lymph 1.37 {X10_3/ul} (Normal) Range: 0.83-4.51 [...] (Abnormal) Range: 4.4-11.0 :54 HgA1C , Office (24726) HgA1C , Office 5.8 % (Normal) Range: 4.6 - 7.1 :02 Basic Metabolic Profile (BMP) Comments: ADDED BMPTest performed at:[facility] Grzyayaaxj7007 [facility] [place] [address] GAP 6 (Normal) Range: 5-15 [...] 70-110 :02 Lipid Profile Comments: Test performed at:[facility] [address] [place] [address] VLDL 96 mg/dL (Abnormal) Range: [...] Risk :02 Liver Profile Comments: Test performed at:[facility] [address] [place] [address] D BILI 0.10 mg/dL (Normal) [...] performed using the TPSA assay method for the[facility] chemistry system. Values obtained with differentassay methods [...] UCOL Yellow (Normal) :25 HgA1C , Office (77082) HgA1C , Office 5.8 % (Normal) Range: 4.6 - 7.1 :10 Blood Glucose , Office (06926) Blood Glucose , Office 83 (Normal) :10 HgA1C , Office (23986) HgA1C , Office 5.7 % (Normal) Range: [...] 08/13/10 1143 Sign by: JESS HENDRICKS MD 84-Upx-208434:21 COMPLETE UA BACTERIA 0 SEEN {/hpf} (Normal) [...] NEGATIVE 0.06 - 0.59 AT RISK OF NH > OR = 0.60 SUGGEST NH :52 COMP METABOLIC Comments: Please Note: TROPONIN [...] 200-240 mg/dL Borderline >240 mg/dL High Risk 3-Guk-569646:52 KIDNEY Radiology Report See Note (Normal) Comments: [...] CHOL 127 mg/dL (Normal) Comments: <200 mg/dL Sfwnypyyq552-615 mg/dL Borderline>240 mg/dL High Risk :10 CBCD [...] CHOL 146 mg/dL (Normal) Comments: <200 mg/dL Jrqqamjfm324-682 mg/dL Borderline>240 mg/dL High Risk TRIG 166 [...] Report See Note (Normal) Comments: Exam Number: [id number] CLINICAL: Fatigue MRI BRAIN WITH AND WITHOUT [...] of remotetrauma. Reported By: HUEY ERAZO M.D. 90-Hvq-021036:19 CHIQUI-D [id number] CHIQUI-DIRECT SeeNote (Normal) Comments: Result: NegativePerformed At: [facility] Nqivtf7339 [place], [place] [id number] :07 B12/FOLATES FOLATES 26.50 ng/mL (Abnormal) Range: 3.1-17.5 VITAMIN B12 1068 pg/mL (Normal) Range: 254-1320 10-Bnk-831138:07 RHEUMATOID FAC < 10 {IU/mL} (Normal) :07 [...] 6.4-8.2 GLU 75 mg/dL (Normal) Range: 70-110 49-Bbi-469728:28 ESR SED RATE 6 mm/h (Normal) Range: 0-20 92-Qej-240568:28 CBCD BASO% 0.5 % (Normal) Range: 0-1 [...] 4.6-6.2 WBC 9.4 K/mm3 (Normal) Range: 4.4-11.0 2-Rgo-445746:18 CULTURE, THROAT See Note (Normal) Comments: Normal throat susanne isolated. No beta-hemolyticstreptococcus isolated. 14-Apr-20098:48 Rapid Strep Test, Office (24138) Rapid Strep Test, Office Negative (Normal) 9-Leb-664806:59 CTA NECK W/WO CONTRAST Radiology Report See Note (Normal) Comments: Exam Number: [id number] HISTORYCarotid stenosis. Abnormal carotid artery ultrasound. CT [...] K 4.5 mmol/L Range: 3.5-5.1 0:00 (Normal) 28-Ftb-949662:19 BMP BUN 35 mg/dL (Abnormal) Range: 7-18 [...] 254-1320 :43 FECAL OCCULT- Tubes sent home (97873) FECAL OCCULT HGB ASSAY, QUAL, 1-3 SIMULTANEOU neg (Normal) :12 Rapid Flu (00226 x 2) Comments: done BC INFLUENZA IMMUNOASSY [...] was performed using the TPSA method for the[facility] chemistry system.Values obtained with [...] GLU 2 HR GLU GTT-2 HOUR from 918:[id number]. Range: 70-120 :05 GLU GTT-1 HOUR 183 mg/dL (Abnormal) Comments: 2HR GTT GLU 1 HR GLU GTT-1 HOUR from 918:Z68402J. Range: 120-170 :31 GLU GTT-30 min. 170 mg/dL (Normal) Comments: 2HR GTT GLU 1/2 HR GLU GTT-30 min. from 918:W21872R. Range: 110-170 :00 D BILI 0.09 mg/dL [...] Comments: 2HR GTT FASTING GLU GTT-FASTING from 0919:X66469H. Range: 70-110 Comments: GLUCOSE TOLERANCE TEST Reference [...] was performed using the TPSA method for the[employer] chemistry system.Values obtained with different assay methods [...] disease Coronary artery disease, non-occlusive : Reviewed Parts Department Manager Letter Indication: Coronary artery disease, non-occlusive BMI 40.0-44.9, adult : Eprescribed prescriptions (G8553) Indication: BMI 40.0-44.9, adult Impaired fasting glucose : Follow up in 4 months Indication: Impaired fasting glucose Coronary artery disease, non-occlusive : Reviewed Parts Department Manager Letter Indication: Coronary artery disease, non-occlusive Hypertension [...] controlled Coronary artery disease, non-occlusive : Reviewed Parts Department Manager Letter Indication: Coronary artery disease, non-occlusive Hypertension [...] glucose Coronary artery disease, non-occlusive : Reviewed Parts Department Manager Letter Indication: Coronary artery disease, non-occlusive 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 Indication: Hypertension with heart disease Impaired fasting glucose : *Diabetes Education Indication: Impaired fasting glucose Nonsmoker : Eprescribed prescriptions (G8553) Indication: Nonsmoker Depression, acute : Reviewed Parts Department Manager Letter Indication: Depression, acute Other chronic pain : Reviewed Lab Indication: Other chronic pain Depression, acute : Follow up in 2 weeks Indication: Depression, acute Accidental fall, initial encounter : Follow up in 1 week Indication: Accidental fall, initial encounter Depression : Reviewed Lab Indication: Depression Depression : Reviewed Diagnostic Tests Indication: Depression Depression : Reviewed Parts Department Manager Letter Indication: Depression Cellulitis : Eprescribed prescriptions (G8553) Indication: Cellulitis Cellulitis : Follow up in 1 week Indication: Cellulitis Nonsmoker : Eprescribed prescriptions (G8553) Indication: Nonsmoker Hypertension with heart disease : Reviewed Lab Indication: Hypertension with heart disease Impaired fasting glucose : Follow up in 4 months Indication: Impaired fasting glucose Hypertension with heart disease : Reviewed Parts Department Manager Letter Indication: Hypertension with heart disease Hypertension [...] artery disease Coronary artery disease : Reviewed Parts Department Manager Letter Indication: Coronary artery disease Carotid stenosis : Reviewed Parts Department Manager Letter Indication: Carotid stenosis Hypercholesterolemia : Cholesterol [...] artery disease Coronary artery disease : Reviewed Parts Department Manager Letter: sees Dr Maria Indication: Coronary artery disease Impaired fasting glucose : Eprescribed prescriptions (G8553) Indication: Impaired fasting glucose Hypercholesterolemia : Cholesterol mgmt Indication: Hypercholesterolemia Coronary artery disease : Continue Current Prescription(s) Indication: Coronary artery disease Coronary artery disease : Reviewed Parts Department Manager Letter Indication: Coronary artery disease 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 Indication: Hypertension with heart disease Hypertension with heart disease : Follow up in 4 months Indication: Hypertension with heart disease Impaired fasting glucose : Eprescribed prescriptions (G8553) Indication: Impaired fasting glucose Coronary artery disease : Reviewed Parts Department Manager Letter Indication: Coronary artery disease Impaired fasting [...] Indication: Hypercholesterolemia Coronary artery disease : Reviewed Parts Department Manager Letter Indication: Coronary artery disease Impaired fasting [...] artery disease Planned Observations HgA1C , Office (17307)Indication: Impaired fasting glucose On: 43-Hnb-640626:57 Request TSH (53521)Indication: Atrial fibrillation, controlled On: :30 Request URINALYSIS, W/ MICRO (27316)Indication: Hypertension with heart disease On: :30 Request MICROALBUMIN: CREATININE RATIO (54337) AND (26953)Indication: Hypertension with heart disease On: :30 Request METABOLIC PANEL, COMPREHENSIVE (25804)Indication: Hypertension with heart disease On: :30 Request LIPID PANEL (62620)Indication: Coronary artery disease, non-occlusive On: :30 Request CBC W/AUTO DIFF WBC (12978)Indication: Hypertension with heart disease On: :29 Request VITAMIN B-12 (CYANOCOBALAMIN) (60716)Indication: Vitamin B12 deficiency On: :29 Request CALCIFIDIOL (57282) VIT D 25Indication: Vitamin D deficiency On: :29 Request VITAMIN B-12 (CYANOCOBALAMIN) (46658)Indication: Vitamin B12 deficiency On: :36 Request CALCIFIDIOL (52885) VIT D 25Indication: Vitamin D deficiency On: :35 Request TSH (46426)Indication: Impaired fasting glucose On: :34 Request URINALYSIS, W/ MICRO (74305)Indication: Hypertension with heart disease On: :34 Request MICROALBUMIN: CREATININE RATIO (61621) AND (35534)Indication: Hypertension with heart disease On: :34 Request METABOLIC PANEL, COMPREHENSIVE (96400)Indication: Hypertension with heart disease On: :34 Request LIPID PANEL (81944)Indication: Hypercholesterolemia On: :34 Request CBC W/AUTO DIFF WBC (01164)Indication: Hypertension with heart disease On: :34 Request RIBOFLAVIN (B-2) (45636)Indication: Drug intoxication with delirium On: 96-Dya-398389:09 Request LIPID PANEL (35100)Indication: Hypercholesterolemia On: :35 Request VITAMIN B-12 (CYANOCOBALAMIN) (79864)Indication: Vitamin B12 deficiency On: :28 Request CALCIFIDIOL (88728) VIT D 25Indication: Vitamin D deficiency On: :27 Request MAGNESIUM (70731)Indication: Hypermagnesemia On: :27 Request FECAL OCCULT- Tubes sent home (73856)Indication: Encounter for screening for malignant neoplasm of colon (Renamed from Special screening for malignant neoplasms, colon) On: 5-Cok-586975:03 Request PSA (PROSTATE SPECIFIC ANTIGEN) (V76.44)Indication: Encounter for screening for malignant neoplasm of prostate (Renamed from Screening for prostate cancer) On: 6-Oku-190375:03 Request TSH (20250)Indication: Impaired fasting glucose On: :22 Request URINALYSIS, W/ MICRO (05779)Indication: Impaired fasting glucose On: 48-Mjd-03444:22 Request MICROALBUMIN: CREATININE RATIO (29216) AND (34845)Indication: Impaired fasting glucose On: :22 Request METABOLIC PANEL, COMPREHENSIVE (49905)Indication: Impaired fasting glucose On: :21 Request LIPID PANEL (60023)Indication: Hypercholesterolemia On: : Request CBC W/AUTO DIFF WBC (16200)Indication: Impaired fasting glucose On: :21 Request CALCIFIDIOL (85326) VIT D 25Indication: Vitamin D deficiency On: : Request HEPATIC FUNCTION PANEL (24697)Indication: Elevated liver enzymes On: :29 Request METABOLIC PANEL, COMPREHENSIVE (97436)Indication: Dizzy On: :54 Request CBC W/AUTO DIFF WBC (02404)Indication: Dizzy On: :54 Request FECAL OCCULT- Tubes sent home (05989)Indication: Melena On: :52 Request CALCIFIDIOL (05690) VIT D 25Indication: Dysthymic On: :52 Request TSH (85734)Indication: Hypercholesterolemia On: :52 Request URINALYSIS, W/ MICRO (42425)Indication: Hypertension with heart disease On: 90-Skf-766702:52 Request MICROALBUMIN: CREATININE RATIO (62742) AND (21386)Indication: Hypertension with heart disease On: 68-Vno-412790:52 Request METABOLIC PANEL, COMPREHENSIVE (09107)Indication: Hypertension with heart disease On: 36-Gcx-732150:52 Request LIPID PANEL (13483)Indication: Hypercholesterolemia On: :52 Request CBC W/AUTO DIFF WBC (08485)Indication: Hypertension with heart disease On: 97-Hrl-955697:51 Request TSH (04404)Indication: Impaired fasting glucose On: :45 Request URINALYSIS, W/ MICRO (22008)Indication: Impaired fasting glucose On: :45 Request MICROALBUMIN: CREATININE RATIO (09410) AND (30122)Indication: Impaired fasting glucose On: :45 Request METABOLIC PANEL, COMPREHENSIVE (39298)Indication: Impaired fasting glucose On: :45 Request LIPID PANEL (38494)Indication: Impaired fasting glucose On: :45 Request CBC W/AUTO DIFF WBC (94709)Indication: Impaired fasting glucose On: :45 Request CALCIFIDIOL (79175) VIT D 25Indication: Impaired fasting glucose On: 10-Nxc-83731:55 Request LIPID PANEL (39295)Indication: Hypertension On: :50 Request TSH (62134)Indication: Impaired fasting glucose On: :50 Request MICROALBUMIN: CREATININE RATIO (77366) AND (20684)Indication: Hypertension On: :50 Request METABOLIC PANEL, COMPREHENSIVE (55666)Indication: Hypertension On: :50 Request MICROALBUMIN: CREATININE RATIO (51476) AND (11594)Indication: Hypertension On: :38 Request URINALYSIS (44418)Indication: Hypertension On: :36 Request CBC WITH MANUAL DIFF (51704)Indication: Hypertension On: :36 Request Metabolic Panel, Comprehensive (79202)Indication: Hypertension On: :36 Request Lipid Panel (90247)Indication: Hypercholesterolemia On: :36 Request MICROALBUMIN: CREATININE RATIO (80929) AND (33776)Indication: Hypertension On: 32-Dtb-328582:57 Request URINALYSIS (08076)Indication: Hypertension On: 76-Ruh-919026:57 Request CBC WITH MANUAL DIFF (52739)Indication: Hypertension On: 03-Yvh-862450:56 Request Metabolic Panel, Comprehensive (66430)Indication: Hypertension On: 27-Jdw-098395:56 Request CALCIFEDIOL (86886)Indication: Hypertension On: 02-Xay-341247:56 Request TSH (97161)Indication: Hypertension On: 95-Yqu-135800:56 Request Lipid Panel (39238)Indication: Hypercholesterolemia On: 24-Goj-706859:56 Request Lipid Panel (62220)Indication: Hypercholesterolemia On: 18-Vrq-816904:13 Request URINALYSIS, W/ MICRO (33365)Indication: Hypertension On: 2-Eyp-107451:02 Request MICROALBUMIN: CREATININE RATIO (31466) AND (32605)Indication: Impaired fasting glucose On: 8-Pbr-152852:02 Request CBC W/AUTO DIFF WBC (91269)Indication: Impaired fasting glucose On: 9-Vyx-194688:02 Request METABOLIC PANEL, COMPREHENSIVE (82582)Indication: Impaired fasting glucose On: 4-Tjv-004897: Request PSA (PROSTATE SPECIFIC ANTIGEN) (V76.44)Indication: Benign prostatic hyperplasia with urinary obstruction and other lower urinary tract symptoms On: 15-Jan-20149:55 Request CREATINE KINASE TOTAL (98804)Indication: SOB (shortness of breath) on exertion On: :32 Request Comments: stat D-Dimer (05581)Indication: SOB (shortness of breath) on exertion On: :32 Request CBC (Auto) (61213)Indication: SOB (shortness of breath) on exertion On: :32 Request Troponin I (52299)Indication: SOB (shortness of breath) on exertion On: :31 Request CPK MB FRACTION (62451)Indication: SOB (shortness of breath) on exertion On: :31 Request MICROALBUMIN: CREATININE RATIO (07842) AND (40243)Indication: Impaired fasting glucose On: :10 Request CBC WITH MANUAL DIFF (85399)Indication: Hypertension On: :04 Request LIPID PANEL (87543)Indication: Hypercholesterolemia On: :04 Request METABOLIC PANEL, COMPREHENSIVE (51378)Indication: Hypertension On: :04 Request CBC WITH MANUAL DIFF (23458)Indication: Hypertension On: :28 Request URINALYSIS, W/ MICRO (16348)Indication: Hypertension On: :28 Request TSH (82881)Indication: Dysthymic On: :28 Request PSA (PROSTATE SPECIFIC ANTIGEN) (V76.44)Indication: Benign prostatic hyperplasia with urinary obstruction and other lower urinary tract symptoms On: : Request LIPID PANEL ([id number])Indication: Hypercholesterolemia On: : Request METABOLIC PANEL, COMPREHENSIVE (11289)Indication: Hypertension On: : Request ASSAY, TROPONIN, QUANTITATIVE (aka Troponin I) ([id number])Indication: SOB (shortness of breath) on exertion On: 29-Ttm-317838:08 Request Comments: stat D-Dimer (43360)Indication: SOB (shortness of breath) on exertion On: 15-Ogs-788498:08 Request Comments: stat URINALYSIS, W/ MICRO (31872)Indication: Edema On: :06 Request TSH ([id number])Indication: Edema On: : Request METABOLIC PANEL, COMPREHENSIVE (53904)Indication: Edema On: :06 Request CBC WITH MANUAL DIFF ([id number])Indication: Edema On: : Request URINE BERTHA CULTURE-SUKHWINDER COL COUNT (77384)Indication: PYELONEPHRITIS, ACUTE NOS On: :25 Request LIPID PANEL (12707)Indication: Hypercholesterolemia On: :12 Request METABOLIC PANEL, COMPREHENSIVE (53146)Indication: Hypertension On: :12 Request PSA (PROSTATE SPECIFIC ANTIGEN) (V76.44)Indication: Benign prostatic hyperplasia with urinary obstruction and other lower urinary tract symptoms On: 18-Oge-12957:33 Request URINALYSIS, W/ MICRO (33129)Indication: Hypertension On: :33 Request CBC WITH MANUAL DIFF ([id number])Indication: Hypertension On: :33 Request METABOLIC PANEL, COMPREHENSIVE (95632)Indication: Hypertension On: 19-Kok-30597:32 Request LIPID PANEL (69408)Indication: Hypercholesterolemia On: :32 Request CBC WITH MANUAL DIFF ([id number])Indication: Hypertension On: 5-Zsh-462738:14 Request METABOLIC PANEL, COMPREHENSIVE (95852)Indication: Hypertension On: 0-Msj-904800:14 Request LIPID PANEL (58883)Indication: Hypercholesterolemia On: 7-Zbj-513940:13 Request CBC, PLATELETS & AUT DIFF (42901)Indication: Anemia, unspecified On: 9-Yuj-336168:38 Request Comments: Repeat 3wks beginning of June Renal function Panel (71392)Indication: Abnormal blood chemistry On: 2-Prw-322152:35 Request Comments: repeat 3 wks Beginning of June Folate (62086)Indication: Fatigue On: :23 Request VITAMIN B-12 (CYANOCOBALAMIN) (94196)Indication: Fatigue On: :23 Request TSH (28772)Indication: Fatigue On: :23 Request SED RATE ERYTHROCYTE (61858)Indication: Fatigue On: :23 Request RHEUMATOID FACTOR-QUANT (19887)Indication: Fatigue On: : Request METABOLIC PANEL, COMPREHENSIVE (51549)Indication: Fatigue On: :23 Request C-REACTIVE PROTEIN (80226)Indication: Fatigue On: :23 Request CBC (AUTO) (74272)Indication: Fatigue On: : Request CHIQUI (ANTINUCLEAR ANTIBODY) (15429)Indication: Fatigue On: : Request BERTHA CULTURE-OTHER (23202)Indication: Pharyngitis, acute On: :48 Request TSH (39273)Indication: Dysthymic On: :48 Request PSA (PROSTATE SPECIFIC ANTIGEN) (V76.44)Indication: Benign prostatic hyperplasia with urinary obstruction and other lower urinary tract symptoms On: :48 Request METABOLIC PANEL, COMPREHENSIVE (58507)Indication: Hypertension On: :46 Request LIPID PANEL (32211)Indication: Hypercholesterolemia On: :46 Request CBC WITH MANUAL DIFF ([id number])Indication: Anemia, unspecified On: :46 Request Metabolic Panel, Basic (67508)Indication: Edema On: :44 Request FOLIC ACID SERUM (53251)Indication: Anemia, unspecified On: :43 Request VITAMIN B-12 (CYANOCOBALAMIN) (66766)Indication: Anemia, unspecified On: :43 Request RETICULOCYTE COUNT MANUL (21902)Indication: Anemia, unspecified On: :43 Request LDH (LD) (LACTATE DEHYDROGENASE) (82030)Indication: Anemia, unspecified On: :43 Request IRON BINDING CAPACITY (TIBC) (85871)Indication: Anemia, unspecified On: :43 Request FERRITIN (29569)Indication: Anemia, unspecified On: :43 Request IRON ([id number])Indication: Anemia, unspecified On: :43 Request CBC WITH MANUAL DIFF ([id number])Indication: Edema On: :40 Request LIPID PANEL (85833)Indication: Hypercholesterolemia On: :36 Request URINALYSIS W/O MICRO (55485)Indication: Hypertension On: :36 Request TSH ([id number])Indication: Hypertension On: :36 Request METABOLIC PANEL, COMPREHENSIVE (34432)Indication: Hypertension On: :36 Request CBC WITH MANUAL DIFF ([id number])Indication: Hypertension On: :36 Request PSA (PROSTATE SPECIFIC ANTIGEN) (V76.44)Indication: Benign prostatic hyperplasia with urinary obstruction and other lower urinary tract symptoms On: :36 Request METABOLIC PANEL, COMPREHENSIVE ([id number])Indication: Hypertension On: :27 Request LIPID PANEL (13335)Indication: Hypercholesterolemia On: 41-Ajl-01985:26 Request HEPATIC FUNCTION PANEL (59572)Indication: Hypercholesterolemia On: :26 Request HEPATIC FUNCTION PANEL (21047)Indication: Hypercholesterolemia On: :52 Request LIPID PANEL (04437)Indication: Hypercholesterolemia On: :52 Request PSA (PROSTATE SPECIFIC ANTIGEN) (V76.44)Indication: Benign prostatic hyperplasia with urinary obstruction and other lower urinary tract symptoms On: 44-Oii-42376:52 Request URINALYSIS W/O MICRO ([id number])Indication: Hypertension On: 36-Zcf-177177:23 Request TSH (42584)Indication: Hypertension On: 85-Rxp-328247:23 Request METABOLIC PANEL, COMPREHENSIVE ([id number])Indication: Hypertension On: 33-Ngn-120676:23 Request CBC WITH MANUAL DIFF ([id number])Indication: Hypertension On: 25-Ziu-237877:22 Request LIPID PANEL (54821)Indication: Hypercholesterolemia On: 55-Ndb-965990:17 Request HEPATIC FUNCTION PANEL ([id number])Indication: Hypercholesterolemia On: 44-Ddk-755251:17 Request METABOLIC PANEL, COMPREHENSIVE (63823)Indication: Hypertension On: 91-Fwm-685028:50 Request VITAMIN B-12 (CYANOCOBALAMIN) (27603)Indication: Fatigue On: :03 Request METABOLIC PANEL, COMPREHENSIVE (84390)Indication: Fatigue On: :03 Request GLUCOSE TOLERANCE TEST (GTT) 2 hour ([id number])Indication: Fatigue On: :02 Request LIPID PANEL (29471)Indication: Hypercholesterolemia On: :10 Request Comments: please send to Dr Shore PSA (PROSTATE SPECIFIC ANTIGEN) (23841)Indication: Benign prostatic hyperplasia with urinary obstruction and other lower urinary tract symptoms On: :10 Request MICROALBUMIN URINE QUANT (27578)Indication: Hypertension On: :10 Request URINALYSIS W/O MICRO (59779)Indication: Hypertension On: :10 Request TSH ([id number])Indication: Dysthymic On: :10 Request METABOLIC PANEL, COMPREHENSIVE (01395)Indication: Hypertension On: :10 Request CBC WITH MANUAL DIFF ([id number])Indication: Hypertension On: :10 Request CBC WITH MANUAL DIFF ([id number])Indication: Hypertension On: :53 Request METABOLIC PANEL, COMPREHENSIVE (58029)Indication: Hypertension On: :53 Request URINALYSIS W/O MICRO ([id number])Indication: Hypertension On: :53 Request TSH ([id number])Indication: Hypertension On: :53 Request LIPID PANEL (32839)Indication: Hypercholesterolemia On: :53 Request Planned Procedures Flu Vaccine (Quadrivalent) On: 14-Feb-2018 Intent 77196Ar: Jazz Rodas DO Comments: Lot #[id number]-L dltd, IMDose prefilled syringegiven by: CManchkVIS reviewed and ABN signed Jazz Rodas DO ELECTROCARDIOGRAM, COMPLETE On: 27-Oct-2017 Intent (ECG) (69366)By: Irvin LUARA, Comments: nsr no acute chg Jazz Ballard DO PNEUM VAC ADLT/IMUMNOSPR, On: 17-Dec-2016 Intent SBC/INTRM (18069)By: Irvin Comments: Lot:[id number]:05/19/18Dose:0.5mgRoute:imSite:l armGiven By:JKMVIS signed Jazz LAURA DO, Kathleen [facility] On: 17-Dec-2016 Intent COUNSELING FOR OBESITY, 15 MINUTES (G0447)By: Jazz Rodas DO, DO, Kathleen INTENSIVE BEHAVIORAL THERAPY On: 17-Dec-2016 Intent TO REDUCE CARDIOVASCULAR DISEASE RISK, INDIVIDUAL, MOZC-IH-VOJE, ANNUAL, 15 MINUTES (G0446)By: Jazz Rodas DO, DO, Kathleen Flu Vaccine (Quadrivalent) On: 10-Dec-2016 Intent 40835Xx: Jazz Rodas DO Comments: lot: [id number]: 09/26/17ite/route: L jessika, IMamt: 0.5mlVIS and ABN signed when applicableChelsea, MEDICAL BILLER Jazz Rodas DO ELECTROCARDIOGRAM, COMPLETE On: 04-Aug-2016 Intent (ECG) (09923)By: Irvin LAURA, Comments: sinus yoko - no acute chg Jazz Ballard DO Venous Doppler - LeftBy: Avis On: 23-Apr-2016 Intent Raya PERERA Comments: L lower extremity US DOPPLER VEIN OF EXTREMITY On: 21-Apr-2016 Intent (95907)By: Raya Albarran MD Comments: US doppler right [...] wound centre and Raya Albarran US GROIN (12971)By: Avis PERERA, On: 13-Apr-2016 Intent Raya Comments: US soft tissue of left hip, Rule out abcess. Flu Vaccine (Quadrivalent) On: 12-Dec-2015 Intent 24778Pp: Jazz Rodas DO Comments: lot [id number] 10/08/16- R arm Jazz Rodas DO INTENSIVE BEHAVIORAL THERAPY On: 12-Dec-2015 Intent TO REDUCE CARDIOVASCULAR DISEASE RISK, INDIVIDUAL, SYCD-AP-QAAM, ANNUAL, 15 MINUTES (G0446)By: Jazz Rodas DO, DO, Kathleen ARHD-DB-MPYQ BEHAVIORAL On: 12-Dec-2015 Intent COUNSELING FOR OBESITY, [...] US DOPPLER CAROTID BILATERAL On: 25-Sep-2015 Intent (07393)By: Jazz Rodas DO, DO, Kathleen Cartoid DopplerBy: Irvin LAURA, On: 30-Jul-2015 Intent Jazz Ballard DO Flu Vaccine (Quadrivalent) On: 15-Jan-2015 Intent 14787Kc: Jazz Rodas DO Comments: Lot:[id number]:10/09/15Dose:0.5mLRoute:IMSite:L DltdGiven By:YVETTE signed Jazz Rodas DO EKG (91817)By: Irvin LAURA, On: 13-Jun-2014 Intent Jazz Ballard DO FNUI[facility]FC[facility]I [facility] On: 06-Mar-2014 Intent COUNSELING FOR OBESITY, 15 MINUTES (G0447)By: Jazz Rodas DO, DO, Kathleen Prevnar 13 (92253)By: Irvin On: 06-Mar-2014 Intent Jazz LAURA DO, Comments: lot [id number] 06/2015location L armroute imgiven by - Madisyn and/or MAMI signed Jazzfilipe Martelid DopplerBy: Blanco LAURA, On: 15-Jan-2014 Intent Rupinder A FLU VAC, SPLIT, >3 YEARS, On: 15-Jan-2014 Intent INTRAMUSC (29381)By: Blanco LAURA, Comments: Lot #:[id number] date:12/2015Amount given:0.5mlRoute: IMSite given: left deltoidGiven by: PRECIOUS Serna ADMINISTRATION OF INFLUENZA On: 15-Jan-2014 Intent VIRUS VACCINE (G0008)By: Rupinder Encarnacion DO FLU VAC, SPLIT, >3 YEARS, On: 13-Feb-2013 Intent INTRAMUSC (97625)By: Blanco LAURA, Comments: Lot:[id number]:Dose:0.5mLRoute:IMSite:L DltdGiven By:YVETTE signed Rupinder A IMMUNIZ ADMNIN, 1 VAC, On: 13-Feb-2013 Intent SNGL/COMBO (52795)By: Perla Ruano IMMUNIZ ADMNIN, 1 VAC, On: 08-Feb-2012 Intent SNGL/COMBO (08082)By: Chanel Alamo CNP FLU VAC, SPLIT, >3 YEARS, On: 08-Feb-2012 Intent INTRAMUSC (98451)By: Chanel Alamo CNP DANA (Ankle Brachial Index) On: 14-Jul-2011 Intent (93190)By: Nieves Masters Comments: at desk Spirometry (89286)By: Kael On: 01-Jul-2011 Intent Ling PERERA Aerosol Treatment (15137)By: On: 01-Jul-2011 Intent Ling Scruggs MD EKG (83843)By: Kael PERERA, On: 01-Jul-2011 Intent Ling Roberts DANA (Ankle Brachial Index) On: 21-May-2011 Intent (79256)By: Rupinder Encarnacion DO Cartoid DopplerBy: Blanco LAURA, On: 21-May-2011 Intent Rupinder A Comments: may FLU VAC, SPLIT, >3 YEARS, On: 10-Feb-2011 Intent INTRAMUSC (32364)By: Erik UGARTE, Comments: Lot #: [id number] date: 09/20Amount given: 0.5 mlRoute: IMSite given: left deltoidGiven by: TORITO Gonzales IMMUNIZ ADMNIN, 1 VAC, On: 10-Feb-2011 Intent SNGL/COMBO (68830)By: Marlys Valencia RN Eprescribed prescriptions On: 24-Nov-2010 Intent (G8553)By: Rupinder Encarnacion DO Echo CompleteBy: Hluszbarry [employer], On: 04-Aug-2010 Intent Mera Pulse Oximetry (15465)By: Blanco On: 24-Jul-2010 Intent Lavelle LAURAa A Comments: 96 Bio Z (69947)By: Blanco LAURA, On: 24-Jul-2010 Intent Rupinder A Comments: good cardiac output and svr- thoracic fluid ok EKG (34492)By: Rupinder Encarnacion DO On: 24-Jul-2010 Intent A Comments: ekg showed normal sinus rhythym, normal axis, no acute st/t wave changes Echo CompleteBy: Blanco LAURA, On: 24-Jul-2010 Intent Rupinder A DANA (Ankle Brachial Index) On: 24-Jul-2010 Intent (98992)By: Rupinder Encarnacion DO Cartoid DopplerBy: Blanco LAURA, [...] DANA (Ankle Brachial Index) On: 25-Mar-2010 Intent (83386)By: Rupinder Encarnacion DO IMMUNIZ ADMNIN, 1 VAC, On: 15-Jan-2010 Intent SNGL/COMBO (02299)By: Erik UGARTE, Comments: Lot #: [id number] date: mount given: 0.5 mlRoute: IMSite given: left deltoidGiven by: TORITO Huerta FLU VACCINE NO PRESERV 3 & > On: 15-Jan-2010 Intent (98174)By: Marlys Valencia RN Cartoid DopplerBy: Blanco LAURA, On: 26-Nov-2009 Intent Rupinder A Comments: sept TDAP VACCINE >7 IM (20198)By: On: 22-Sep-2009 Intent Mera Mullen LPN Comments: Lot #[id number]-9/24/12Site-left deltoidgiven by:NATHALIA Holter Monitor 24 hrsBy: Walker On: 21-Apr-2009 Intent Chanel LOU ELECTROCARDIOGRAM, COMPLETE On: 21-Apr-2009 Intent (ECG) (65141)By: Chanel Alamo CNP FLU VAC, SPLIT, >3 YEARS, On: 07-Jan-2009 Intent INTRAMUSC (77424)By: Harpreet, Comments: Lot #:[id number] date:mount given:0.5mlRoute: IMSite given:left deltGiven by: PRECIOUS Serna IMMUNIZ ADMNIN, 1 VAC, On: 07-Jan-2009 Intent SNGL/COMBO (47666)By: Emili Mullins DANA (Ankle Brachial Index) On: 25-Nov-2008 Intent (94167)By: Uma Altamirano Comments: done>Wf. pt aware. normal findings on both sides. DANA (Ankle Brachial Index) On: 01-Oct-2008 Intent (06317)By: Rupinder Encarnacion DO Cartoid DopplerBy: Blanco LAURA, On: 01-Oct-2008 Intent Rupinder A Comments: sept Pulse Oximetry (83886)By: On: 03-Jul-2008 Intent Chanel Alamo CNP Comments: done BC Aerosol Treatment (00071)By: On: 03-Jul-2008 Intent Chanel Alamo CNP Comments: done BC FLU VAC, SPLIT, >3 YEARS, On: 15-Mar-2008 Intent INTRAMUSC (06200)By: Alicia Allen ADMINISTRATION OF INFLUENZA On: 15-Mar-2008 Intent VIRUS VACCINE (G0008)By: Comments: inj given no complicationslot:[id number]:10/08/08site left deltoddose:0.5mlkatAlicia Easton EKG (70365)By: Rupinder Encarnacion DO On: 27-Dec-2007 Intent A Comments: ekg- with sinus with lvh - left axisd deviation Cartoid DopplerBy: Blanco LAURA, On: 27-Dec-2007 Intent Rupinder A DANA (Ankle Brachial Index) On: 23-Aug-2007 Intent (38212)By: Xiao Busby DANA (Ankle Brachial Index) On: 08-Aug-2007 Intent (49200)By: Rupinder Encarnacion DO DANA (Ankle Brachial Index) On: 02-May-2007 Intent (78218)By: Rupinder Encarnacion DO Flu Vaccine, Split IM On: 24-Jan-2007 Intent (42404)By: Rupinder Encarnacion DO Comments: given o.5cc im in right deltoid lot#[id number] exp.10/09/07-aw Pneumovax (14085)By: Blanco LAURA, On: 24-Jan-2007 Intent Rupinder A Comments: given 0.5cc in right deltoid lot#[id number] exp. 02/20/08-aw Overnight Pulse Ox(40902)By: On: 21-Dec-2006 Intent Xiao Busby Echo CompleteBy: Blanco LAURA, On: 06-Dec-2006 Intent Rupinder A Overnight Pulse OX (95891)By: On: 06-Dec-2006 Intent Rupinder Encarnacion DO EKG (34744)By: Narciso NAIDU, On: 23-Jun-2006 Intent Peg Comments: needed to be done for a preop which is scheduled the end of the month with dr. romero DANA (Ankle Brachial Index) On: 15-Jun-2006 Intent (76472)By: Milady Jay LPN DANA (Ankle Brachial Index) On: 01-Jun-2006 Intent (11519)By: Rupinder Encarnacion DO Comments: see Mila- these needs precerted as the insurance didnt pay last time- I discussed with her DANA (Ankle Brachial Index) On: 01-Mar-2006 Intent (41441)By: Rupinder Encarnacion DO Planned Medications Vitamin B-12 [...] The patient does have durable power of family law attorney and living will. The patient has noticed dropping activities and interests, having problems with memory than others, la ck of energy and thinking most people are better off than them. 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 care are branch store manager and police commissioner.Encounter Diagnosis: BMI 38.0-38.9,adult, Nonsmoker, Annual Medicare Physical [...] patient does not have durable power of family law attorney. The patient has noticed lack of energy and thinking most people are better off than them. 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 care are branch store manager and other:.Encounter Diagnosis: Annual Medicare Phyiscal WITHOUT [...] The patient does have durable power of family law attorney and living will. The patient has noticed thinking most people are better off than t hem. 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 care are branch store manager (DR. Maria) and other: (Pain Management- Dr. [...] a day for 2 weeks- and the branch store manager didnt feel he needed to increase meds [...] back. Pt is seeing Dr. Blake in [place] for this and currently getting injections and [...]
--- OUTSIDE RECORDS SUMMARY | 2018-07-01 19:22 | XMS RPT_ITS ---
:1950 Author Organization [facility] Address [address] [place] [phone] Phone Care Team Providers Name Role Phone Christina Solitario MD Reason for Visit Reason For Visit Description Start Date Postop - 1st visit Preliminary reason for visit data, not yet signed by the author as of back post L5 and S1 laminectomy with posterior laminar fusion L5-S1 and bilateral instrumentation L5 S1 on 03/07/2018 Preliminary reason for visit data, not yet signed by the author as of Chief Complaint Chief Complaint Description Start Date back post L5 and S1 laminectomy with posterior laminar fusion L5-S1 and bilateral instrumentation L5 S1 on 03/07/2018 Preliminary chief complaint data, not yet signed by the author as of Instructions Instruction Description Start Date Please follow-up with Primary Care Physician or Kennel Supervisor for treatment or adjustment of medication regarding elevated blood pressure.Patient advised to follow-up with Primary Care Physician for BMI management. Plan of Care Type Date Detail Appointment 09:30 AM Christina Solitario MD, [address] [facility], [place], [address], Appointment 09:00 AM Christina Solitario MD, [address] [facility], [place], [address], Pending order XR LUMBAR 2-3 VWS AP/LAT Patient education \cps-sql1\CPS_PtEducation\ht n.pdf Medications Medication Instructions Start Stop Generic Name NDC Provider Date Date FISH OIL takes one twice / OMEGA-3 FATTY [id number] Christina Bal BURP-LESS 1000 a day 10 ACIDS Kassi PERERA MG CAPS ANITBIOTIC takes one daily / ANITBIOTIC Christina Bal SUPPORT 10 SUPPORT Kassi PERERA TYLENOL 325 MG takes 2 tablets / ACETAMINOPHEN 43258551477 Christina A TABS as needed 10 Kassi PERERA IRON 27 TABS takes one daily / FERROUS GLUCONATE 64996706822 Christina A 10 TABS Kassi PERERA VITAMIN takes one daily / VITAMIN D-VITAMIN 33658397942 Christina Bal K2-VITAMIN D3 (10,000i.u.) 10 K CAPS Kassi PERERA CAPS AMLODIPINE takes one daily / AMLODIPINE 98958642409 Christina Valeriano BESYLATE 5 MG 10 BESYLATE Kassi PERERA TABS BACLOFEN 10 MG Take one up to / BACLOFEN 56057834835 Christina A TABS 3 times per day 27 Kassi PERERA as needed for muscle spasm. CITALOPRAM takes one tab / CITALOPRAM 95277121735 Christina Bal HYDROBROMIDE 10 once daily 03 HYDROBROMIDE Kassi PERERA MG TABS B-12 1000 MCG 1 tablet daily / CYANOCOBALAMIN 55367379156 [place] TABS 25 Pino ECHO VASCULAR TECH PANTOPRAZOLE as directed as / PANTOPRAZOLE 46318228411 [place] SODIUM 40 MG needed 25 SODIUM [facility] MULTIVITAMIN 1 tablet daily / MULTIPLE 51655545739 [place] ADULT TABS 25 VITAMINS-MINERALS Pino ECHO VASCULAR TECH MODAFINIL 200 1 tablet twice / MODAFINIL 47219282002 [place] MG TABS daily 25 Pino ECHO VASCULAR TECH FUROSEMIDE 40 1 tablet daily / FUROSEMIDE 16009914718 [place] MG TABS 25 Pino ECHO VASCULAR TECH FENOFIBRATE 54 1 tablet daily / FENOFIBRATE 77440474841 [place] MG TABS 25 Pino ECHO VASCULAR TECH ELIQUIS 5 MG 1 tablet twice / APIXABAN 78535803180 [place] TABS daily 25 Pino ECHO VASCULAR TECH ATORVASTATIN 1 tablet daily / ATORVASTATIN 48660760340 [place] CALCIUM 40 MG 25 CALCIUM Pino TABS ECHO VASCULAR TECH ATENOLOL 50 MG 1 tablet daily / ATENOLOL 69208797590 [place] TABS 25 Pino ECHO VASCULAR TECH ADULT ASPIRIN 1 tablet daily ASPIRIN 79186860055 [place] EC LOW STRENGTH 25 Pino 81 MG TBEC ECHO VASCULAR TECH Conditions or Problems Problem Name Problem Code Onset Status Entry Provider Comment Standard Annotate Date Date Description S/P lumbar [id number] Christina A History of fusion 06 (SNOMED 05/21 05/21 Kassi PERERA lumbar fusion CT) Glucose 23384337 Christina A Disorder of intolerance (SNOMED CT) 0/03 0/03 Diulus MD carbohydrate metabolism Vitamin D 90264992 Christina A Vitamin D deficiency (SNOMED CT) 0/03 0/03 Diulus MD deficiency BMI 638435245 Christina A Body mass index 40.0-44.9, (SNOMED CT) 0/03 0/03 Diulus MD 40+ - severely adult obese BMI greater 252422870 Christina A Body mass index than 40 (SNOMED CT) 0/03 0/03 Diulus MD 40+ - severely obese Spinal 50685236 Christina A Spinal stenosis stenosis of (SNOMED CT) 0/03 0/03 Diulus MD of lumbar region lumbar region with neurogenic claudication 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 Vital Signs Date Name Value Unit Description BMI (Body Mass 37.58 kg/m2 Body Mass Index Index) [Ratio] Preliminary vital sign data, not yet signed by the author as of Body Temperature 98.2 [degF] temperature E&M Preliminary vital sign data, not yet signed by the author as of Body Temperature 36.8 Jocelyn temperature in centigrade E&M Preliminary vital sign data, not yet signed by the author as of BP Diastolic 71 mm[Hg] blood pressure, diastolic Preliminary vital sign data, not yet signed by the author as of BP Diastolic 76 mm[Hg] blood pressure, diastolic, second observation Preliminary vital sign data, not yet signed by the author as of BP Systolic 155 mm[Hg] blood pressure, systolic Preliminary vital sign data, not yet signed by the author as of BP Systolic 162 mm[Hg] blood pressure, systolic, second observation Preliminary vital sign data, not yet signed by the author as of Heart Rate 65 /min pulse rate E&M Preliminary vital sign data, not yet signed by the author as of Height 165 cm height in centimeters E&M Preliminary vital sign data, not yet signed by the author as of Height 65 [in_us] height E&M Preliminary vital sign data, not yet signed by the author as of Weight Measured 102 kg weight in kilograms E&M Preliminary vital sign data, not yet signed by the author as of Weight Measured 225 [lb_av] weight E&M Preliminary vital sign data, not yet signed by the author as of Results Date Name Value Unit Range Flag Description Office Visit: Postop - 1st visit, Rm: PT1 MEDS REVIEW Done Documentation of current medications (procedure) Preliminary observation data, not yet signed by the author as of XRAY HX of the lumbar xray history spine on 01/11/[address] [facility] Preliminary observation data, not yet signed by the author as of MRI HX of the lumbar MRI (magnetic spine on resonance 10/22/2017 at imaging) history [facility] Preliminary observation data, not yet signed by the author as of Preliminary observation data, not yet signed by the author as of Clinical Summary: HMSPatientID OOP account number Procedures Code Procedure Name Date Entry Date G8509 Pain assessment documented as positive - no follow-up/reason not given G8427 Current medications documented 1036F Tobacco screening was negative - non user G8417 BMI documented as above normal parameters - follow-up documented G8950 Blood pressure outside of normal parameters - follow-up documented [facility]-[id number] Patient Encounter Medications Administered No information available. [...]
--- OUTSIDE RECORDS SUMMARY | 2018-07-01 19:22 | XMS RPT_ITS ---
:09/30/1958 Author Organization [facility] Address [address] [place] [phone] Phone Care Team Providers Name Role Phone Lupillo PERERA, [facility] Tanner Reason for Visit Reason For Visit Description Start Date Postop - 1st visit Preliminary reason for visit data, not yet signed by the author as of right knee post right total knee on 03/13/2018 Preliminary reason for visit data, not yet signed by the author as of Chief Complaint Chief Complaint Description Start Date right knee post right total knee on 03/13/2018 Preliminary chief complaint data, not yet signed by the author as of Instructions Instruction Description Start Date CompletedPatient advised to follow-up with Primary Care Physician for BMI management. Plan of Care Type Date Detail Appointment 08:00 AM Kaiser Wesley MD, [address] [facility], [place], [address], Medications Medication Instructions Start Stop Generic Name NDC Provider Date Date XANAX 0.5 MG 1 tablet as ALPRAZOLAM 63160602087 Terena Wilkinson TABS directed as 5 RN needed MAGOX 400 TABS 1 tablet once MAGNESIUM 05933216638 Terena Wilkinson daily 5 OXIDE TABS RN CYMBALTA 60 MG 1 capsule once DULOXETINE 91413837336 Terena Wilkinson CPEP daily 5 HCL RN IBUPROFEN 100 1 tablet twice IBUPROFEN 22484439873 Terena Wilkinson YASMIN daily as 5 RN STRENGTH 100 directed MG CHEW Conditions or Problems Problem Name Problem Code Onset Status Entry Provider Comment Standard Annotate Date Date Description Presence of Z96.652 Active [facility] Perez Presence of left (ICD-10-CM) 06/07 06/07 Lupillo PERERA left artificial artificial knee joint knee joint Presence of Z96.651 Active [facility] Perez Presence of right (ICD-10-CM) 06/07 06/07 Lupillo PERERA right artificial artificial knee knee joint joint 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 (SNOMED 11/18 11/18 [place] of right knee right knee CT) PAC joint Acquired 1887460 8787/1 Active Dragan X Acquired trigger (SNOMED CT) Lilliana PERERA trigger finger finger Allergies, Adverse Reactions, Alerts Allergy Name Reaction Start Date Severity Status Provider Description PLANT POLLENS hay fever Critical Active Terena Wilkinson RN MOLD Critical Active Terena Wilkinson RN DUST MITES Critical Active Terena Wilkinson RN SHELLFISH Critical Active Terena Wilkinson RN IODINE Critical Active Terena Wilkinson RN [place] Critical Active Alice Koberling PAC ADHESIVE TAPE redness/rash Moderate Active Sharonda Ellis ALUMINUM SIDING INSTALLER EXAM DYE Stopped Breathing Severe Active Sharonda Ellis ALUMINUM SIDING INSTALLER (IODINE) METAL (NICKEL) Rash, Hives Severe Active Sharonda Ellis ALUMINUM SIDING INSTALLER TETANUS TOXOID arm swells Severe Active Sharonda Ellis ALUMINUM SIDING INSTALLER ADSORBED MORPHINE SULFATE Swelling/Facial Severe Active Sharonda Ellis ALUMINUM SIDING INSTALLER Itching, Difficulty Breathing CODEINE Hives Severe Active Sharonda Ellis ALUMINUM SIDING INSTALLER PHOSPHATE VICODIN hives Critical Active Marisol Robbe (HYDROCODONE-RAMAKRISHNA TAMINOPHEN TABS) VINYL GLOVES hands swell Critical Active Marisol Zamudioe SEASONAL Mild Active Renetta Toney Social History No information available. Vital Signs Date Name Value Unit Description BMI (Body Mass 39.65 kg/m2 Body Mass Index Index) [Ratio] Preliminary vital sign data, not yet signed by the author as of BP Diastolic 86 mm[Hg] blood pressure, diastolic Preliminary vital sign data, not yet signed by the author as of BP Systolic 129 mm[Hg] blood pressure, systolic Preliminary vital sign data, not yet signed by the author as of Heart Rate 76 /min pulse rate E&M Preliminary vital sign data, not yet signed by the author as of Height 62 [in_us] height E&M Preliminary vital sign data, not yet signed by the author as of Height 157 cm height in centimeters E&M Preliminary vital sign data, not yet signed by the author as of Weight Measured 216 [lb_av] weight E&M Preliminary vital sign data, not yet signed by the author as of Weight Measured 98 kg weight in kilograms E&M Preliminary vital sign data, not yet signed by the author as of Results Date Name Value Unit Range Flag Description Office Visit: Postop - 1st visit, Rm: 3 MEDS REVIEW Done Documentation of current medications (procedure) Preliminary observation data, not yet signed by the author as of Preliminary observation data, not yet signed by the author as of Clinical Summary: HMSPatientID FOP account number Procedures Code Procedure Name Date Entry Date [id number]-83216 XR KNEE 1-2 VWS-RT G8730 Pain assessment documented as positive - follow-up documented G8427 Current medications documented 1036F Tobacco screening was negative - non user G8417 BMI documented as above normal parameters - follow-up documented G8783 Blood pressure within normal parameters - no follow-up required [facility]-[id number] Patient Encounter Medications Administered No information available. [...]
--- OUTSIDE RECORDS SUMMARY | 2018-07-01 19:22 | XMS RPT_ITS | Continuity of Care Document ---
:1950 Author Organization [facility] Address [address] [facility] [address] [place] [address] Phone Care Team Providers Name Role Phone Jazz Rodas DO Unavailable [facility] Unavailable [facility], [facility] Unavailable Long SOCIAL SECURITY ASSESSOR, Sharonda L Unavailable Unavailable Gravius, Laila Unavailable Unavailable Slarb SOCIAL SECURITY ASSESSOR, Elle Unavailable Unavailable Messenger, SOCIAL SECURITY ASSESSOR Darlene Unavailable Unavailable Unavailable Unavailable Problems Name Dates [...] days Quantity: 30 {Tablet} Refills: 3 Ordered:25-Aug-2016 dAiti Rodas DO, DO, Kathleen Start : 25-Aug-2016 [...] days Quantity: 30 {Tablet} Refills: 1 Ordered:09-Jan-2018 Laila Ha Start : 09-Jan-2018 Active Fenofibrate 54 MG [...] bid for 0 days Refills: 0 Ordered:07-Jan-2009 Flinner, JenniferActive Zoloft 50 MG Oral Tablet 2 (two) [...] Quantity: 60 {Tablet} Refills: 0 Ordered:26-May-2011 Emili Mullnis Start : 26-May-2011 End : 25-Jun-2011 Inactive [...] : 29-Sep-2015 End : 26-Nov-2015 Inactive ZOSTAVAX, 15806PFE/0.65ML (Subcutaneous Solution Reconstituted) 1 For Solution dose [...] Duplex Ultrasound Result: Comments: See Note; NOTES: [facility] Cardiovascular Services [address] [place] [address] Carotid Duplex Ultrasound 11/09/17 1247 MR#: [id number] Acct: [id number] Name: RUBY LIEBERMANLETHA Hickey Rep #: [id number] : 1950 67 From: Kaiser Awan MD [...] the left vertebral artery. Procedure Carotid Duplex 00495. The study was technically difficult. Exam performed [...] Dictated: 11/09/17 1247 Date Transcribed: 11/09/17 1516 Community Theater Actor: Signed 27-Oct-2017 Cardiology Visit Report Result: Comments: See Note; NOTES: [facility] [address] [place], [place] [address]e. 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 transplanted heart: [place] heart Essential hypertension I10 Hypertension type: essential hypertension Atrial fibrillation and flutter I48. 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 transplanted heart: [place] heart Essential hypertension I10 Hypertension type: essent[place] l hypertension Atrial fibrillation and flutter I48.91; I48.92 Occlusion and stenosis of left carotid artery I65.22 Pure hypercholesterolemia E78.00; E78.0 Hyperlipidemia type: pure hypercholesterolemia 10/27/17 0935 <Electronically signed by Babatunde Maria MD> Date Babatuned Maria MD Cosigner Signature: Date (if applicable) CC: Jazz Rodas DO 22-Oct-2017 Spine Lumbar (Routine) Result: Comments: See Note; NOTES: [facility] Imaging Services [address] [place] [address] Spine Lumbar (Routine) MR#: [id number] Acct: [id number] Name: LETHA DEUTSCH Rep #: [id number] : 1950 M 66 From: Roberto Lunsford MD PCP: Jazz Rodas DO Status: REG CLI Study: Spine Lumbar (Routine) Date of Exam: 10/22/17 Exam# [id number] Ordering Dr: Brooklynn Ryan FUEL PILOT ENGINEER-C STUDY: MRI L UMBAR SPINE WITHOUT CONTRAST [...] , CC: Brooklynn Ryan; Jazz Rodas DO Community Theater Actor: Signed 14-Apr-2017 Cardiology Visit Report Result: Comments: See Note; NOTES: [facility] 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 Rep #: [id number] : 1950 M 65 From: Chago Loera MD PCP: Jazz Rodas DO Status: [facility] Study: Brain/Head without Contrast Date of Exam: 06/23/16 Exam# [id number] Ordering Dr: Isiah Gloria MD STUDY: CT [...] 06/23 at 20:16 EDT , Service support [phone], N.B. : The above information has been verbally conveyed by Chago Loera MD to dr gloria, Referring Physician, on 20:19:35 (ET). CC: Emili Gloria MD; Jazz Rodas DO Community Theater Actor: Signed 23-Jun-2016 Chest 1 View Result: Comments: See Note; NOTES: [facility] Imaging Services [address] [place] [address] Verdana 4d Chest 1 View MR#: [id number] Acct: [id number] Name: LETHA DEUTSCH Rep #: [id number] : 1950 M 65 From: Chago Loera MD PCP: Jazz Rodas DO Status: REG ER Study: Chest 1 View Date of Exam: 06/23/16 Exam# [id number] Ordering Dr: Emili Gloria MD STUDY: X-RAY [...] MD at 20:28 EDT , Service support [phone], CC: Emili Gloria MD; Jazz Rodas DO Community Theater Actor: Signed 09-Jun-2016 Pulmonary Function Report Comp Result: Comments: See Note; NOTES: [facility] Pulmonary Services/Neurology [address] [place] [address] Pulmonary Function Test (Comp) MR#: [id number] Acct: [id number] Name: LETHA DEUTSCH Rep #: [id number] : 1950 65 From: Rodolfo Palacios DO Referring Dr: Rodolfo Palacios D.O. Status: REG CLI Ordering Dr: Rodolfo Palacios DO Date: 06/08/16 Location: [facility] Sex: M C DATE OF [...] DO Karen Gurrola C: T: NTS JOB: [id number] 06/09/16 1357 &# 60;Electronically signed by Rodolfo Palacios DO> Date Rodolfo Palacios DO CC: Rodolfo Palacios D.O.; Jazz Rodas DO Date Dictated: 06/09/16829 Date Transcribed: 06/09/16829 Community Theater Actor: Signed 07-Jun-2016 Chest PA and Lateral Result: Comments: See Note; NOTES: [facility] Imaging Services [address] [place] [address] Verdana 4d Chest PA and Lateral MR#: [id number] Acct: [id number] Name: LETHA DEUTSCH p #: [id number] : 1950 M 65 From: Rael Miller MD PCP: Jazz Rodas DO Status: REG CLI Study: Chest PA and Lateral Date of Exam: 06/07/16 Exam# [id number] Ordering Dr: Hyun Iglesias PA STUDY: X-RAY [...] MD at 16:15 EST , Service support [phone], CC: Jazz Rodas DO; Hyun Iglesias Community Theater Actor: Signed 01-Jun-2016 Carotid Duplex Ultrasound Result: Comments: See Note; NOTES: [facility] Cardiovascular Services [address] [place] [address] Carotid Duplex Ultrasound 06/01/16 1000 MR#: [id number] Acct: [id number] Name: RUBY LIEBERMANLETHA Hickey Rep #: [id number] : 1950 65 From: Cassi Rousseau MD [...] the left vertebral artery. Procedure Carotid Duplex 90778. Technically difficult due to body habitus. Exam [...] Dictated: 06/01/16 1000 Date Transcribed: 06/01/16 1434 Community Theater Actor: Signed 01-Jun-2016 Echocardiogram Complete Result: Comments: See Note; NOTES: [facility] Cardiovascular Services [address] [place] [address] Echo Complete 06/01/16 0909 MR#: [id number] Acct: [id number] Name: LETHA DEUTSCH Rep #: [id number] : 1950 65 From: Babatunde Maria MD Attending Dr: Rodolfo Palacios D.O. Status: REG CLI Ordering Dr: Rodolfo Palacios DO Date: 06/01/16 Location: [facility] Sex: M C Admitted: Reason [...] DO Date Dictated: 06/01/1609 Date Transcribed: 06/01/161250 Community Theater Actor: Signed 26-May-2016 6 Minute Walk Test Result: Comments: See Note; NOTES: [facility] Pulmonary Services/Neurology [address] [place] [address] MR#: [id number] Acct: [id number] Name: LETHA DEUTSCH Rep #: [id number] : 1950 65 From: Rodolfo Palacios DO Referring Dr: Rodolfo Palacios D.O. Date: Ordering Dr: Ama Jones Location: PSN PSN 6 Minute Walk Test - 6 Minute Walk Test 6 Minute Walk Test: 6 Minute Walk Test PSN :6-Minute Walk Test Start: 05/25/16 12:52 Freq: Status: Active Document 05/25/16 12:52 LORENA (Rec: 05/25/16 12:54 LORENA [id number]) 6 Minute Walk Test Date Performed 05/25/16 [...] CC: Date Dictated: 05/26/16946 Date Transcribed: 05/26/16946 Community Theater Actor: Rodolfo Palacios DO Signed 21-Apr-2016 Venous Duplex Lower Extremity Result: Comments: See Note; NOTES: [facility] Cardiovascular Services [address] [place] [address] Venous Duplex US, Unilateral 04/21/16 1619 MR#: [id number] Acct: [id number] Name: LETHA ARTHUR Rep #: [id number] : 1950 65 From: Kwaku Ahamdi MD Attending Dr: Raya Albarran Status: REG [...] Dictated: 04/21/16 1619 Date Transcribed: 04/21/16 1827 Community Theater Actor: Signed 16-Apr-2016 Pelvis WITH IV Contrast Result: Comments: See Note; NOTES: [facility] Imaging Services [address] [place] [address] Verdana 4d Pelvis WITH IV Contrast MR#: [id number] Acct: [id number] Name: LETHA DEUTSCH Rep #: [id number] : 1950 M 65 From: Gurpreet De Anda DO PCP: Jazz Rodas DO Status: REG CLI Study: Pelvis WITH IV Contrast Date of Exam: 04/16/16 Exam# [id number] Ordering Dr: Jazz Rodas STUDY: CT PELVIS [...] De Anda DO at 9:03 EST Tel [phone], Service support [phone], CC: Ivory Rodas DO Community Theater Actor: Signed 14-Apr-2016 Other BP Soft Tissue Result: Comments: See Note; NOTES: [facility] Imaging Services [address] [place] [address] Verdana 4d Other BP Soft Tissue MR#: [id number] Acct: [id number] Name: LETHA DEUTSCH p #: [id number] : 1950 M 65 From: Gurpreet De Anda DO PCP: Jazz Rodas DO Status: REG CLI Study: Other BP Soft Tissue Date of Exam: 04/14/16 Exam# [id number] Ordering Dr: Raya Albarran STUDY: GALINDO PERFICIAL [...] Anda DO 27/04/03 at 12:37 EST Tel [phone], Service support [phone], CC: Jazz Rodas DO; Raya Albarran Community Theater Actor: Signed 18-Feb-2016 12 Lead Electrocardiogram Result: Comments: See Note; NOTES: [facility] Cardiovascular Services [address] [place] [address] 12 Lead EKG 02/16/16 1238 MR#: [id number] Acct: [id number] Name: LETHA DEUTSCH Rep #: [id number] : 1950 65 From: Johnie Montaño MD Attending Dr: Babatunde Maria MD Status: [facility] Ordering Dr: Babatunde Maria MD Date: 02/16/16 Location: [facility] Sex: M C Admitted: Test [...] ECG Confirmed by SCOTT PERERA, JOHNIE ([id number]), script editor BECK DOSS ([id number]) on 02/18/2016 2:53:30 PM Referred By: [facility] Confirmed By:JOHNIE MONTAÑO MD 02/18/16 1453 Date Johnie Montaño MD CC: Jazz Rodas DO Date Dictated: 02/16/16 1238 Date Transcribed: 02/16/16 1238 Community Theater Actor: Signed 17-Feb-2016 Operative Report Result: Comments: See Note; NOTES: [facility] Medical Records Department [address] [place] [address] Operative Report MR#: [id number] Acct: [id number] Name: LETHA DEUTSCH Rep #: [id number] : 1950 65 From: Rodolfo Palacios DO [...] issues including a triple bypass surgery at [facility] in 1996 followed by an [...] C: Referring Provider . T: RACHAEL JOB: [id number] 02/17/16 1243 <Electronically signed by Rodolfo Palacios DO> Date ____ Rodolfo Palacios DO Cosigner Signature (If Indicated): Date CC: Rodolfo Palacios D.O.; Jazz Puentes te Dictated: 02/16/161258 Date Transcribed: 02/16/161258 Community Theater Actor: Signed 17-Feb-2016 Operative Report Result: Comments: See Note; NOTES: [facility] Medical Records Department [address] [place] [address] Operative Report MR#: [id number] Acct: [id number] Name: LETHA DEUTSCH Rep #: [id number] : 1950 65 From: Babatunde Maria MD PCP: Jazz Rodas DO Status: [facility] DATE OF SERVICE: PROCEDURE: DC cardioversion. [...] Babatunde Maria MD T: RACHAEL JOB : [id number] 02/17/16 0833 <Electronically signed by Babatunde Maria MD> Date Babatunde Maria MD Cosigner Signature (If Indicated): Date __ CC: Babatunde Maria MD; Jazz Rodas DO Date Dictated: 02/16/16 1326 Date Transcribed: 02/16/161325 Community Theater Actor: Signed 01-Jan-2016 Operative Report Result: Comments: See Note; NOTES: [facility] Medical Records Department [address] [place] [address] Operative Report MR#: [id number] Acct: [id number] Name: LETHA DEUTSCH Rep #: [id number] : 1950 65 From: Babatunde Maria MD PCP: Jazz Rodas DO Status: REG [facility] DATE OF SERVICE: [...] followup. Babatunde Maria MD T: NTS JOB: [id number] 01/01/16 0813 <Electronically signed by Babatunde Maria MD> Date Babatunde Maria MD Cosigner Signature (If Indicated): Date CC: Babatunde Maria MD; Jazz Rodas DO Date Dictated: 12/29/15 114 Date Transcribed: 12/29/15 114 Community Theater Actor: Signed 31-Dec-2015 Consultation Result: Comments: See Note; NOTES: [facility] Medical Records Department [address] [place] [address] Consultation MR#: [id number] Acct: [id number] Name: LETHA DEUTSCH Rep #: [id number] : 1950 65 From: Zia Aldrich MD PCP: Jazz Rodas DO Status: REG [facility] DATE OF SERVICE: 12/29/2015 BRIEF HISTORY OF PRESENT ILLNESS: The patient is a 65-year-old male, cu rrently under the care of Dr. Maria, who presents for elective KAYLEE and cardioversion secondary to atrial fibrillation. The patient does have a long history of atrial fibrillation and cardiac issues incl uding a triple bypass at [facility] in 1996, atrial ablation in [...] Babatunde Maria MD Primary Care Physician T: [facility] JOB: [id number] 12/31/15 0622 <Electronically signed by Zia Aldrich MD> Date Zia bond MD Cosigner Signature (If Indicated): Date CC: Zia Aldrich MD; Babatunde Maria MD; Jazz Rodas DO Date Dictated: 12/29/151436 Date Transcri bed: 12/29/151436 Community Theater Actor: Signed 29-Dec-2015 Echo Transesophageal (KAYLEE) Result: Comments: See Note; NOTES: [facility] Cardiovascular Services [address] [place] [address] Echo Transesophageal (KAYLEE) 12/29/15 1045 MR#: [id number] Acct: [id number] Name: OPAL LANDAVERDEERLETHA Ruperto Rep #: [id number] : 1950 65 From: Babatunde Maria MD Attending Dr: Babatunde Maria MD Status: REG KSC Ordering Dr: Babatunde Maria MD Date: 12/29/15 Location: [facility] Sex: M C Admitted: R marian For Study: A. fib Medication KAYLEE probe passed without difficulty. Cetacaine Topical [place] given X3 orally. Versed 2 mg given [...] Dictated: 12/29/15 1045 Date Transcribed: 12/29/15 1237 Community Theater Actor: Signed 20-Nov-2015 OT D/C Summary Result: Comments: See Note; NOTES: [facility] Occupational Therapy [facility] [address] [facility] [place] [address] Fax REHABILITATION SERVICES ДМИТРИЙ GARDINER SUMMARY MR#: [id number] Acct: [id number] Name: LETHA DEUTSCH Rep #: [id number] : 1950 65 From: Linda Blunt Referring [...] of their discharge status. - Objective Objective/Function: Corporate Relations Director: R: 95# L: 80#. Lat Pinch: R:26# [...] the izquierdo to regaining sensation and strength. Corporate Relations Director: R: 95# L: 80#. Lat Pinch: R:26# L:10#. Tripod Pinch: R:18# L:8#. Gram Abduction: R:375; L: 200. Adduction: R: 800; L:600. Monofilaments: L Th:3.84. L IF:3.22. L MF:3.22. L RF:3.22/4.08. L LF:4.08. In mariano nd manipulation (palm to fingers and fingers to palm) appear normal. If there are questions or concerns regarding this patient's occupational therapy, please fell free to call me at [phone]. Thank you for the referral of this patient. Sincerely, Linda Blunt <Electronically signed by Linda Blunt > 11/20/15 1518 CC: Jazz Rodas DO; Jorge Luis Kerr MD MG Signed 20-Nov-2015 OT General Evaluation Result: Comments: See Note; NOTES: [facility] [facility]. [address] [place] [address] Fax REHABILITATION SERVICES IN ITIAL EVALUATION MR#: [id number] Acct: [id number] Name: LETHA DEUTSCH Rep #: [id number] : 1950 65 From: Linda Blunt Referring [...] trans position on August 12, 2015 at [place]. Pt. experienced sudden numbness and falling asleep" of L elbow and hand before the surgery. Pt. is retired and worked at [employer] for 34 years. 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 Pt. is R-handed - [...] Elbow: B 5/5 Wrist: R:5/5; L: 4+/5 Corporate Relations Director: R:85# L:80# Lateral Pinch: R:22# L:12# Tripod [...] to be FAXED BACK to us at [phone] for Med icare purposes. Please let me know if there are questions or concerns regarding this plan of care. Physician Signature: Date: <E lectronically signed by Linda Blunt > 11/20/15 8317 CC: Jazz Rodas DO; Jorge Luis Kerr MD MG Signed For Medicare only, by signing this I certify the plan of ca re. Physicians Signature Date 06-Nov-2015 CTA Head W/WO Contrast Result: Comments: See Note; NOTES: [facility] Imaging Services [address] [place] [address] Verdana 4d CTA Head W/WO Contrast MR#: [id number] Acct: [id number] Name: LETHA MASON Rep #: [id number] : 1950 M 65 From: Cecilio Castillo PCP: Jazz Rodas DO Status: REG CLI Study: CTA Head W/WO Contrast Date of Exam: 11/06/15 Exam# [id number] Ordering Dr: Linnea Johnson FUEL PILOT ENGINEERMary Kay STUDY: CTA OF THE BRAIN REASON [...] There is no demonstrated aneurysm of the lower [place]. There is no demonstrated abnormality of the visualized brain. CC: Linnea Hall; aJzz Rodas DO Community Theater Actor: Signed 06-Nov-2015 CTA Head W/WO Contrast Result: Comments: See Note; NOTES: [facility] Imaging Services [address] [place] [address] Verda 4d CTA Head W/WO Contrast MR#: [id number] Acct: [id number] Name: LETHA MASON Rep #: [id number] : 1950 M 65 From: Cecilio Castillo PCP: Jazz Rodas DO Status: REG CLI Study: CTA Head W/WO Contrast Date of Exam: 11/06/15 Exam# [id number] Ordering Dr: Linnea Johnson FUEL PILOT ENGINEER-C STUDY: CTA OF THE BRAIN REASON FOR [...] There is no demonstrated aneurysm of the lower [place]. There is no demonstrated abnormality of the visualized brain. 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 Mi ld atherosclerotic plaque of the bilateral intracranial carotid arteries. Electronically Signed: Cecilio Castillo MD at 11:58 EDT Tel , Service support [phone], Fax CC: Linnea Rdoas DO Community Theater Actor: Signed 06-Nov-2015 CTA Neck W/WO Contrast Result: Comments: See Note; NOTES: [facility] Imaging Services [address] [place] [address] Verdana 4d CTA Neck W/WO Contrast MR#: [id number] Acct: [id number] Name: LETHA MASON Rep #: [id number] : 1950 M 65 From: Cecilio Castillo PCP: Jazz Rodas DO Status: REG CLI Study: CTA Neck W/WO Contrast Date of Exam: 11/06/15 Exam# [id number] Ordering Dr: Linnea Johnson FUEL PILOT ENGINEER-C STUDY: CTA NECK WITH CONTRAST REASON FOR [...] artery. CC: Linnea Hall; Jazz Rodas DO Community Theater Actor: Signed 06-Nov-2015 CTA Neck W/WO Contrast Result: Comments: See Note; NOTES: [facility] Imaging Services [address] [place] [address] Verdana 4d CTA Neck W/WO Contrast MR#: [id number] Acct: [id number] Name: LETHA MASON Rep #: [id number] : 1950 M 65 From: Cecilio Castillo PCP: Jazz oRdas DO Status: REG CLI Study: CTA Neck W/WO Contrast Date of Exam: 11/06/15 Exam# [id number] Ordering Dr: Linnea Johnson FUEL PILOT ENGINEER-C STUDY: CTA NECK WITH CONTRAST REASON FOR [...] at 11:53 EDT Tel , Service support [phone], CC: Linnea Hall; Jazz Rodas DO Community Theater Actor: Signed 30-Sep-2015 Brain W/WO Contrast Result: Comments: See Note; NOTES: [facility] Imaging Services [address] [place] [address] Verdana 4d Brain W/WO Contrast MR#: [id number] Acct: [id number] Name: DALIA JHALETHA Ruperto Rep #: [id number] : 1950 M 64 From: Cierra Doss MD PCP: Jazz Rodas DO Status: REG CLI Study: Brain W/WO Contrast Date of Exam: 09/30/15 Exam# [id number] Ordering Dr: Prakash Mccarty MD STUDY: MRI [...] MD at 13:08 EDT , Service support [phone], CC: Isaac Mccarty MD; Jazz Rodas DO Community Theater Actor: Signed 28-Sep-2015 Carotid Duplex Ultrasound Result: Comments: See Note; NOTES: [facility] Cardiovascular Services [address] [place] [address] Carotid Duplex Ultrasound 09/25/15 1411 MR#: [id number] Acct: [id number] Name: LETHA DEUTSCH Rep #: [id number] : 1950 64 From: Rian Levi MD [...] the left vertebral artery. Procedure Carotid Duplex 14238. Techncially difficult due to body habitus. Exam performed in department. Interpretation Summary Mild (<50%) stenosis right extracranial internal carotid. Mild (<50%) stenosis l eft extracranial internal carotid. Flow within the vertebral arteries is antegrade bilaterally. Ordering Physician: Jazz Rodas Performed By: Karon Harris RVT 09/28/152157 Date Rian Levi MD CC: Jazz Rodas DO Date Dictated: 09/25/151 Date Transcribed: 09/28/152157 Community Theater Actor: Signed 25-Sep-2015 Brain/Head without Contrast Result: Comments: See Note; NOTES: [facility] Imaging Services [address] [place] [address] Verdana 4d Brain/Head without Contrast MR#: [id number] Acct: [id number] Name: LETHA DEUTSCH Rep #: [id number] : 1950 M 64 From: Juli Klein MD PCP: Jazz Rodas DO Status: REG CLI Study: Brain/Head without Contrast Date of Exam: 09/25/15 Exam# [id number] Ordering Dr: Jazz Rodas DO STUDY: CT [...] at 14:19 EDT Tel cf, Service support [phone], CC: Jazz Rodas DO Community Theater Actor: Signed 17-Sep-2015 Operative Report Result: Comments: See Note; NOTES: [facility] Medical Records Department [address] [place] [address] Operative Report MR#: [id number] Acct: [id number] Name: [facility] Rep #: [id number] : 1950 64 From: Babatunde Maria MD [...] office. Babatunde Maria MD T: NTS JOB: [id number] 09/17/15 08 <Electronically sig catrina by Babatunde Maria MD> Date Babatunde Maria MD Cosigner Signature (If Indicated): Date CC: Babatunde Maria MD; Jazz Rodas DO Date Dictated: 09/16/15 1100 Date Transcribed: 09/16/15 1100 Community Theater Actor: Signed 17-Sep-2015 Operative Report Result: Comments: See Note; NOTES: [facility] Medical Records Department [address] [place] [address] Operative Report MR#: [id number] Acct: [id number] Name: [facility] E Rep #: [id number] : 1950 64 From: Zia Aldrich MD [...] MD Primary Care Physicia n . T: [facility] JOB: [id number] 09/17/15 0608 <Electronically signed by Zia Aldrich MD> Date Zia Aldrich MD Cosigner Signature (If I ndicated): Date CC: Zia Aldrich MD; Jazz Rodas DO Date Dictated: 09/16/155 Date Transcribed: 09/16/151114 Community Theater Actor: Signed 09-Sep-2015 Chest PA and Lateral Result: Comments: See Note; NOTES: [facility] Imaging Services [address] [place] [address] Verdana 4d Chest PA and Lateral MR#: [id number] Acct: [id number] Name: LETHA CHAUDHARI Rep #: [id number] : 1950 M 64 From: Osvaldo Manuel MD PCP: Jazz Rodas DO Status: REG CLI Study: Chest PA and Lateral Date of Exam: 09/09/15 Exam# [id number] Ordering Dr: Hyun Iglesias STUDY: X-RAY CHEST [...] Osvaldo Manuel MD at 10:04 EDT Tel [phone], Service support [phone], RAD/Chest PA and Lateral IMPRESSION: Hyperin flation. No acute abnormality is seen. Electronically Signed: Osvaldo Manuel MD at 10:04 EDT Tel [phone], Service support [phone], CC: Jazz reynolds DO; Hyun Iglesias Community Theater Actor: Signed 07-Aug-2015 ELECTROCARDIOGRAM, COMPLETE (ECG) (95529) Comments: afib controlled rate 97 - Result: [MEASUREMENTS ANALYSIS] Date of Test: 08/07/2015 08:26:34; Heart Rate: 97; IN Interval: 0; QRS: 104; QT Interval: 344; Corrected QT Interval (QTc): 408; P Wave Hope: 1; QRS Wave Hope: -31; T Wave Hope: 1; Blood Pressure: 138/78 [ECG DIAGNOSTIC STATEMENTS] Date of Test: 08/07/2015 08:26:34; Summary: Atrial flutter-fibrillation - Nonspecific T-abnormality. ABNORMAL 30-Jul-2015 ELECTROCARDIOGRAM, COMPLETE (ECG) (37871) Comments: afib rate 109 Result: [MEASUREMENTS ANALYSIS] Date of Test: 07/30/2015 17:00:28; Heart Rate: 109; IN Interval: 0; QRS: 108; QT Interval: 338; Corrected QT Interval (QTc): 423; P Wave Hope: 1; QRS Wave Hope: -30; T Wave Hope: 42; Blood Pressure: 122/78 [ECG DIAGNOSTIC STATEMENTS] Date of Test: 07/30/2015 17:00:28; Summary: Atrial fibrillation -Nonspecific QRS widening. -Nonspecific ST depression -Nondiagnostic. ABNORMAL 24-Jul-2015 NCS and/or EMG Patient Result: Comments: See Note; NOTES: [facility] Pulmonary Services/Neurology [address] [place] [address] NCS and/or EMG Patient MR#: [id number] Acct: [id number] Name: LETHA ZUNIGA Rep #: [id number] : 1950 64 From: Mary Doan Referring [...] referral. Mary Doan MD T: NTS JOB: [id number] 07/24/152201 <Elect ronically signed by Mary Doan > Date Mary Doan CC: Jazz Rodas DO; MARY DOAN; Jorge Luis Kerr MD Date Dictated: 38 Date Transcribed: 07/23/15937 Community Theater Actor: Signed 09-Jul-2015 Echocardiogram Complete Result: Comments: See Note; NOTES: [facility] Cardiovascular Services [address] [facility] [place] [address] Echo Complete 07/09/15 0858 MR#: [id number] Acct: [id number] Name: LETHA DARBY Rep #: [id number] : 1950 64 From: Babatunde Maria MD [...] Dictated: 07/09/15 0858 Date Transcribed: 07/09/15 1258 Community Theater Actor: Signed 09-Jul-2015 Nuclear Stress Test - Chemical Result: Comments: See Note; NOTES: [facility] Imaging Services [address] [place] [address] Verdana 4d Nuclear Stress Test - Chemical MR#: [id number] Acct: [id number] N alexsander: LETHA DEUTSCH Rep #: [id number] : 1950 64 From: Babatunde Maria MD [...] fraction. Babatunde Maria MD T: NTS JOB: [id number] 07/10/15 1139 <Electronically signed by Babatunde Maria MD> Date Babatunde Maria MD CC: Jazz Rodas DO Date Dictated: 07/09/15 1110 Date Transcribed: 07/09/151109 Community Theater Actor: Signed 02-May-2015 Lumbar Spine 2 or 3 Views Result: Comments: See Note; NOTES: [facility] Imaging Services [address] [place], [place] [address] [address] Verdana 4d Lumbar Spine 2 or 3 Views MR#: [id number] Acct: [id number] Name: LETHA ARTHUR Rep #: [id number] : 1950 M 64 From: Osvaldo Manuel MD PCP: Jazz Rodas DO Status: REG CLI Study: Lumbar Spine 2 or 3 Views Date of Exam: 05/02/15 Exam# [id number] Ord ering Dr: Sherif Christensen MD STUDY: [...] Osvaldo Manuel MD at 15:13 EST Tel [phone], Service support [phone], 0056 RAD/Lumbar Spine 2 or 3 Views IMPRESSION: Grade 1 anterolisthesis of L5 on S1 with no significant translation on the flexion and extension maneuvers. Multilevel spondylosis and disc space narrowing. Electronically Signed: Osvaldo olivo MD at 15:13 EST Tel [phone], Service support [phone], CC: Sherif Christensen MD; Jazz Rodas DO Community Theater Actor: Signed 02-May-2015 Spine Lumbar without Contrast Result: Comments: See Note; NOTES: [facility] Imaging Services [address] [place] [address] Veronica 4d Spine Lumbar without Contrast MR#: [id number] Acct: [id number] Wisam e: LETHA DEUTSCH Rep #: [id number] : 1950 M 64 From: Scott Kelly MD PCP: Jazz Rodas DO Status: REG CLI Study: Spine Lumbar without Contrast Date of Exam: 05/02/15 Exam# [id number] Ordering Dr: Sherif Christensen MD STUDY: CT [...] Scott Kelly MD at 8:31 EST Tel [phone], Ser vice support [phone], CC: Sherif Christensen MD; Jazz Rodas DO Community Theater Actor: Signed 28-Jan-2015 History and Physical Exam Result: Comments: See Note; NOTES: [facility] Medical Records Department [address] [facility] [place] [address] History and Physical 01/24/15 2255 MR#: [id number] Acct: [id number] Name: LETHA DEUTSCH Rep #: [id number] : 1950 64 From: Joe Sinha PA-C PCP: Jazz Rodas DO Status: PRE IN Location: [facility] DATE OF SERVICE: PRIMARY CARE PHYSICIAN: Dr. Natalie Rodas. PROCEDURE TYPE: Reverse total shoulder replacement, right shoulder. PROCEDURE DATE: February 04, 2015. ATTENDING PHYSICIAN: Dr. Jorge Luis Kerr. HISTORY OF PRESENT ILLNESS: This is a 64-year-old male who first presented to [facility] on December 03, 2014. The patient states [...] patient has undergone cardiac clearance by his residential collections, Dr. Maria. The patient has a history of coronary artery disease with bypass surgery in 1996. The patient has also had heart ablation in 2010 as well as stents in his left and right iliac arteries. The patient un derwent a heart catheterization in 2011. The patient was given surgical clearance by his residential collections. The patient denies any chest pain, shortness [...] in the medical record. Please see attached [facility] medical history sheet. PAST MEDICAL PROBLEMS: [...] DIAGNOSTIC STUDIES: 1. X-rays were obtained at [facility] on December 03, 2014, of the right shoulder including 3 views AP, ___ _ and axillary view, show no acute fracture, dislocation, or other bony abnormalities, ____ lesion inferior aspect of the glenoid. 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 2. MRI o f the right shoulder was obtained at [facility] [place] on ____ 2014, shows a full-thickness tear [...] nt has undergone cardiac clearance from his residential collections. Joe Sinha PA-C T: NTS JOB: [id number] 01/28/15 0716 <Electronically signed by Joe Sinha [...] Lumbar (Routine) Result: Comments: See Note; NOTES: [facility] Imaging Services [address] [place] [address] MRI Report MR#: [id number] Acct: [id number] Name: LETHA DEUTSCH Rep #: [id number] : 1950 M 63 From: Jack Martínez MD PCP: Jazz Rodas DO Status: REG CLI Study: Spine Lumbar (Routine) Date of Exam: 06/13/14 Exam# [id number] Ordering Dr: Mihir Martínez MD STUDY: MR [...] at 19:32 EST Tel , Service support [phone], CC: Mihir Martínez MD; Jazz Rodas DO Community Theater Actor: Signed 06-Mar-2014 Sleep Study Report Result: Comments: See Note; NOTES: [facility] [address] [place] [address] Polysomnography with NCPAP MR#: [id number] Acct: [id number] Name: RADHA DEUTSCH Rep #: [id number] : 1950 63 From: Gennaro Larsen MD PCP: Rupinder Encarnacion DO Status: REG CLI Ordering Dr.: Gennaro Larsen MD Date: 02/28/14 Sex: M C REFERRING PHYSICIAN: Dr. Larsen. SLEEP HISTORY: The patient is a 63-year-old gentleman with a calculated body mass index of 36.3 and an [place] Sleepiness Scale score of 8/24. The patient [...] version). Please note that a reference to [facility] AHI in this report is consistent with the current Hypopnea definition according to Medicare Criteria and an AASM AHI reference is consistent with the current Hypopnea definition according to the AASM criteria. PROCEDURE: The stud y was attended continuously by a astro technician. Monitored parameters included left and right [...] sleep overall appeared more consolidated with less kiok usals on a lower CPAP setting of [...] Duplex Ultrasound Result: Comments: See Note; NOTES: [facility] Cardiovascular Services [address] [place] [address] Carotid Duplex Ultrasound 01/30/14 0854 MR#: [id number] Acct: [id number] Wisam e: LETHA DEUTSCH Rep #: [id number] : 1950 63 From: Rian Levi MD Attending Dr: Rupinder Encarnacion DO Status: REG CLI Ordering Dr: Rupinder Encarnacion DO Date: 01/30/14 Location: [facility] Sex: M C Admitte d: [...] the left vertebral artery. Procedure Carotid Duplex 40345. Exam performed in department. Interpretation Summary Mild (<50%) stenosis right extracranial internal carotid. Mild (<50%) stenosis left extracranial internal carotid. Flow within the vertebral arteries is antegrade bilaterally. Ordering Physician: Rupinder Encarnacion Performed By: Karon Harris RVT 01/30/14 1122 Date Rian Levi MD CC: Rupinder Encarnacion DO Date Dictated: 01/30/14 0854 Date Transcribed: 01/30/14 112 Community Theater Actor: Signed Immunization Name Dates Details Influenza (3 years and up) on: 24-Jan-2007 Comments: given o.5cc im in right deltoid lot#[id number] exp.10/09/07-aw Influenza (3 years and up) on: 15-Mar-2008 Influenza (3 years and up) on: 07-Jan-2009 Comments: Lot #:[id number] date:mount given:0.5mlRoute: IMSite given:left deltGiven by: PRECIOUS Serna (2 years and up) on: 24-Jan-2007 Comments: given 0.5cc in right deltoid lot#[id number] exp. 02/20/08-aw Family History Unknown Family Member Name Dates Details Father Comments: aty 52, Diabetes and [place] Status: Active Mother Comments: CAD, PVD Status: Active Social History Name Dates Details Alcohol Use Comments: Rare beer Status: Active Caffeine Use Status: Active Most Recent Primary Occupation Comments: retired 2013 Status: Active Tobacco Use: Former smoker. Comments: Remotely quit tobacco use- 11/24/10 Status: Active Smoking Status Name Dates Details Former smoker Vital Signs Date Test Result Details 46-Fnl-710182:55 Temperature 97.3 f Comments: Method: Temporal Pulse [...] Area Calculated 2.14 m2 :59 Comments: hearing [facility] and had a glaucoma test done Pulse [...] Surface Area Calculated 2.12 m2 :29 Comments: [facility] glaucoma test doneHearing [...] kg/m2 Body Surface Area Calculated 2.11 m2 62-Lig-177282:50 Comments: [facility] Pulse 74 /min Comments: Pattern: [...] 0.00 cm Results Date Description Value Details 59-Gjo-613981:57 Blood Glucose , Office (66711) Blood Glucose , Office 123 (Normal) :06 Lipid Profile Comments: [facility] [address] [place], [place], [address] VLDL Test not performed mg/dL (Normal) Range: [...] mg/dL High Risk :06 Liver Profile Comments: [facility] [address] [place], [place], [phone] D BILI 0.07 mg/dL (Normal) Range: 0.00-0.30 T BILI 0.30 mg/dL (Normal) Range: 0.20-1.00 ALT 34 U/L (Normal) Range: 16-61 ALK P 58 U/L (Normal) Range: 45-117 AST 23 U/L (Normal) Range: 15-37 GLOB 3.4 g/dL (Normal) Range: 2.2-4.2 ALB 3.4 g/dL (Normal) Range: 3.2-5.0 T PROT 6.8 g/dL (Normal) Range: 6.4-8.2 :19 CBC W/Diff, Automated Comments: [facility] [address] [place], [address] Absolute Lymph 1.39 {X10_3/ul} (Normal) Range: 0.83-4.51 [...] 4.6-6.2 WBC 5.6 K/mm3 (Normal) Range: 4.4-11.0 08-Hir-81851:19 Comprehensive Metabolic Profil Comments: [facility] [address] [place], [address] GAP 13 (Normal) Range: 5-15 CO2 29.0 [...] A.D.A. criteria.Please note revised GLUCOSE reference range yyiqqzpbs55/02/2018. 67-Cfj-20372:19 Lipid Profile Comments: [facility] [address] [place], [address] VLDL Test not performed mg/dL (Normal) Range: [...] High Risk :19 Microalb:Creat Ratio,Random UR Comments: [facility] [address] [place], [phone] MALB:CREAT 15.8 {mg/g_CRE} (Normal) MICROALBUMIN,UR 13.4 mg/L (Normal) UR CREAT 84.70 mg/dL (Normal) :19 Thyroid Stim Hormone (TSH) Comments: [facility] [address] [place], [address] TSH 1.82 {uIU/mL} (Normal) Range: 0.358-3.74 :19 Urinalysis, Complete Comments: How was Urine Obtained? CLEAN [facility] [address] [place], [phone] MUCUS, URINE 0 SEEN {/hpf} (Normal) BACTERIA [...] :19 Vitamin B12 353 pg/mL (Normal) Comments: [facility] [address] [place], [address] Range: 211-911 :19 Vitamin D,25 Hydroxy Comments: [facility] [address] [place], [address] Vitamin D 25-OH 24.7 ng/mL (Abnormal) Range: 29.95-100.01 Comments: Vitamin D 25(OH) Status Range Deficiency <20 ng/mL (50nmol/L) Insuffciency 20 - 30 ng/mL (50 - 75 nmol/L) Sufficiency 30 - 100 ng/mL (75 - 250 nmol/L) Toxicity >100 ng/mL (>250 nmol/L) :02 HgA1C , Office (98040) HgA1C , Office 5.4 % (Normal) Range: 4.6 - 7.1 :02 Blood Glucose , Office (47701) Blood Glucose , Office 141 (Normal) :22 Lipid Profile Comments: [facility] [address] [place], [address] VLDL 49 mg/dL (Abnormal) Range: 5-40 LDL [...] mg/dL High Risk :22 Liver Profile Comments: [facility] [address] [place], [phone] D BILI 0.09 mg/dL (Normal) Range: 0.00-0.30 [...] (PROSTATE SPECIFIC Comments: PATIENT NOT FASTINGPERFORMED BY: [facility]CoH[facility] CenterRikgjs8745 [facility] [id number] ANTIGEN) (V76.44) Prostate Specific Ag, 0.9 ng/mL (Normal) Range: 0.0-4.0 Serum Comments: StorwizeIA methodology. .According to the [employer], Serum PSA shoulddecrease and remain [...] of malignant disease. :04 HgA1C , Office (52740) HgA1C , Office 5.6 % (Normal) Range: 4.6 - 7.1 :04 Blood Glucose , Office (02574) Blood Glucose , Office 117 (Normal) :37 CBC W/Diff, Automated Comments: [facility] [address] [place], [place], [address] Absolute Lymph 1.18 {X10_3/ul} (Normal) Range: 0.83-4.51 [...] 4.6-6.2 WBC 5.2 K/mm3 (Normal) Range: 4.4-11.0 10-Nnh-23084:37 Comprehensive Metabolic Profil Comments: [facility] [address] [place], [address] GAP 5 (Normal) Range: 5-15 CO2 32.0 [...] (Normal) Range: 70-110 :37 Lipid Profile Comments: [facility] [address] [facility] [address] [place], [address] VLDL 61 mg/dL (Abnormal) Range: [...] High Risk :37 Microalb:Creat Ratio,Random UR Comments: [facility] [address] [place], [address] MALB:CREAT Test not performed {mg/g_CRE} (Normal) MICROALBUMIN,UR < 5.0 mg/L (Normal) UR CREAT 105.00 mg/dL (Normal) 09-Lzv-45009:37 Thyroid Stim Hormone (TSH) Comments: [facility] [address] [place], [address] TSH 1.68 {uIU/mL} (Normal) Range: 0.358-3.74 :37 Urinalysis, Complete Comments: How was Urine Obtained? CLEAN [facility] [address] [place], [phone] MUCUS, URINE 0 SEEN {/hpf} (Normal) BACTERIA [...] :37 Vitamin B12 539 pg/mL (Normal) Comments: [facility] [address], [phone] Range: 211-911 :37 Vitamin D,25 Hydroxy Comments: [facility] [address] [place], [phone] Vitamin D 25-OH 42.0 ng/mL (Normal) Comments: Vitamin D 25(OH) Status Range Deficiency <20 ng/mL (50nmol/L) Insuffciency 20 - 30 ng/mL (50 - 75 nmol/L) Sufficiency 30 - 100 ng/mL (75 - 250 nmol/L) Toxicity >100 ng/mL (>250 nmol/L) Gastric Biopsy See Note (Normal) Comments: [facility] [address], [address] :56 Comments: Patient: LETHA DEUTSCH : 1950 (65/M) Acct Num: [id number] Phys: Jose Antonio Mehta Unit Num: [id number] Loc: LABSPEC Specimen: [id number] Received: 10/21/161630 Spec Type: Gastric Bx TISSUES TISSUES: COMMENT The results of immunohistochemistry for Helicobacter pylori will be reported separately ([id number]). GROSS DESCRIPTION Received in fixative i s one container labeled with the patient's name and designated gastric/antrum biopsy. The specimen consists of two irregular fragments of light pacheco soft tissue that in aggregate measure 0.6 x 0.3 x 0 .1 cm. The specimen is totally submitted in one cassette. / SJ:berta 10/22/16 TC:3 CPT: 86246 HEADER OPERATION: EGD with biopsy PRE-OP DIAGNOSIS: [...] on file> IMMUNOHISTOCHEMISTRY See Note (Normal) Comments: [facility] [address] [place], [address] :00 Comments: Patient: LETHA DEUTSCH : 1950 (65/M) Acct Num: [id number] Phys: Jose Antonio Mehta Unit Num: [id number] Loc: LABSPEC Specimen: [id number] Received: 10/25/16 - 1213 Spec Type: IMMUNO TISSUES TISSUES: SPECIMEN INFORMATION: Tissue Source: Gastric antrum biopsy Clinical Info: Iron deficiency anemia Specimen Number: [id number] CPT code: 62406 METHODO LOGY: Deparaffinized sections of prefer/formalin-fixed tissue or PAP/DQ stained slides are incubated with monoclonal/polyclonal antibodies/oligonucleotide probes. Localization is made via biotin free immunoperoxidase method. Appropriate controls are performed and reacted as expected. Results on target cell population are indicated in the following table: RESULTS: ANTIBODY / CLONE RESULT H Pylori (polyclonal) negative These tests were developed and their performance characteristics determined by [facility]. They may not hav e been cleared or approved by the U.S. Food and Drug Administration. The FDA has determined that such clearance or approval is not necessary. INTERPRETATION: Gastric antrum, biopsy: Negative for Helicobacter pylori organisms. SJ:berta 10/26/16 PHYSICIAN AND INSTITUTION [facility] [address] [place], [place] [address] Signed Peter Zieglerin 10/26/16 <signature on file> 4-Iht-510792:26 CBC-Complete Blood Cnt No Diff Comments: [facility] [address] [place], [place], [phone] MPV 9.7 fL (Normal) Range: 6.2-12.0 PLT [...] 4.6-6.2 WBC 5.5 K/mm3 (Normal) Range: 4.4-11.0 9-Ugw-014066:26 Iron Comments: [facility] [address] [facility] [address] [place], [place], [address] IRON 109 ug/dL (Normal) Range: 65-175 3-Xfs-600772:10 Basic Metabolic Profile (BMP) Comments: DR.STRUNETS MALHOTRA BMP,CBCD DR. CROW MALHOTRA PT/INRWooC[facility] [address] [place], [place], [address] GAP 7 (Normal) Range: 5-15 CO2 28.0 [...] 126 mg/dLsuggests DIABETES MELLITUS per A.D.A. criteria. 3-Jqh-782457:10 CBC W/Diff, Automated Comments: DR.STRUNETS MALHOTRA BMP,CBCD DR. CROW MALHOTRA PT/[facility] [address] [facility] [place], [address] Absolute Lymph 0.85 {X10_3/ul} (Normal) [...] 4.6-6.2 WBC 3.9 K/mm3 (Abnormal) Range: 4.4-11.0 9-Tdn-868749:10 Prothrombin Time w/INR Comments: DR.STRUNETS MALHOTRA BMP,CBCD DR. CROW MALHOTRA PT/INRWBl[facility] [address] [place] [address], [phone] INR 1.5 (Normal) PROTIME 17.9 s (Abnormal) Range: 11.7-14.9 77-Alm-388508:31 Stool Occult Blood iFOB Comments: [facility] [address] [place] [address], [phone] STOB See Note (Normal) Comments: Order Date: 09/02/16 STOB iFOBOccult Blood Positive ORGANISM 1: OCCULT BLOOD POSITIVE 14-Gxy-320678:25 Basic Metabolic Profile (BMP) Comments: [facility] [address] [place] [address], [address] GAP 8 (Normal) Range: 5-15 CO2 29.0 [...] 7-18 GLU 98 mg/dL (Normal) Range: 70-110 66-Dwx-377804:25 CBC-Complete Blood Cnt No Diff Comments: [facility] [address] [place], [place], [address] MPV 8.8 fL (Normal) Range: 6.2-12.0 PLT [...] 4.6-6.2 WBC 5.6 K/mm3 (Normal) Range: 4.4-11.0 92-Rtz-343860:25 Liver Profile Comments: [facility] [address] [place], [place], [address] D BILI 0.05 mg/dL (Normal) Range: 0.00-0.30 T BILI 0.20 mg/dL (Normal) Range: 0.20-1.00 ALT 24 U/L (Normal) Range: 12-78 ALK P 51 U/L (Normal) Range: 45-117 AST 13 U/L (Abnormal) Range: 15-37 GLOB 3.3 g/dL (Normal) Range: 2.3-3.5 ALB 3.7 g/dL (Normal) Range: 3.4-5.0 T PROT 7.0 g/dL (Normal) Range: 6.4-8.2 16-Tcr-947748:25 Prothrombin Time w/INR Comments: [facility] [address] [place], [place], [phone] INR > 19.5 (Abnormal) Comments: RESULTS CALLED TO BRITTANEY 09/02/16 1753 Vito Arteaga.REPORT READ BACK BY SAME. PROTIME > 120.0 s (Abnormal) Range: 11.7-14.9 58-Sod-148771:53 Prothrombin Time w/INR Comments: [facility] [address] [place], [address]([phone] INR > 19.5 (Abnormal) Comments: CRITICAL VALUE VERIFIED. CALLED TO GERRY AT [facility]09/02/16 1447 [address] [place].RESULTS READ BACK BY SAME . PROTIME > 120.0 s (Abnormal) Range: 11.7-14.9 :33 Prothrombin Time w/INR Comments: [facility] [address] [place], [place], [phone] INR 1.9 (Normal) PROTIME 21.2 s (Abnormal) Range: 11.7-14.9 :51 HgA1C , Office (48788) HgA1C , Office 5.5 % (Normal) Range: 4.6 - 7.1 :51 Blood Glucose , Office (30444) Blood Glucose , Office 131 (Normal) 35-Gzd-051605:44 Prothrombin Time w/INR Comments: [facility] [address] [place], [place], [phone] INR 2.4 (Normal) PROTIME 25.5 s (Abnormal) Range: 11.7-14.9 89-Ksd-462082:11 Prothrombin Time w/INR Comments: [facility] [address] [place], [place], [phone] INR 1.5 (Normal) PROTIME 17.7 s (Abnormal) Range: 11.7-14.9 9-Jod-991936:47 Prothrombin Time w/INR Comments: [facility] [address] [place], [phone] INR 1.5 (Normal) PROTIME 17.7 s (Abnormal) Range: 11.7-14.9 7-Jce-278688:45 Basic Metabolic Profile (BMP) Comments: Order Date: 06/09/16Order Info: 0667-1 - *BMPDR. CROW ORDERED PTINR STANDING ORDER.Order Date: 06/09/16Order Info: 0667-1 - *BMPComments: Reason:[facility] [address] [place], [address] GAP 9 (Normal) Range: 5-15 CO2 30.0 [...] Range: 70-110 :02 Prothrombin Time w/INR Comments: [facility] [address] [place], [phone] INR 1.8 (Normal) PROTIME 20.1 s (Abnormal) Range: 11.7-14.9 :27 POTASSIUM SERUM (19398) Comments: STAT; Order Date: 06/30/16Order Info: 2823-3 - KComments: STATOrder Date: 06/30/16Order Info: 2823-3 - KComments: [facility] [address] [place], [address] K 4.6 mmol/L Range: 3.5-5.1 (Normal) Vitamin B2, Whole 236 ug/L (Normal) Comments: PATIENT NOT FASTINGPERFORMED BY: CB [facility] U[address]beq4966 [address] RoadDublin [place] [id number] BY: [address] [id number] 5:40 Blood Range: 137-370 Comments: Reference interval reflects flavinadeninedinucleotide (FAD), that accounts for approximately 90% of the total riboflavin in whole blood. 08-Crb-562362:40 Vitamin B6, Plasma Comments: PATIENT NOT FASTINGPERFORMED BY: CB [facility] Qoxgrr7347 Hansen Road[address]ublin [place] [id number] BY: [address] [id number] ([address]) Vitamin B6 36.6 ug/L (Normal) Range: 5.3-46.7 92-Pso-169026:40 ALCOHOL, ETHYL (BLOOD) Comments: serum alcohol; PATIENT NOT FASTINGPERFORMED BY: CB [facility] Mgupno9094 Hansen RoadDublin [place] [id number] BY: [address] [id number] (91116) Ethanol Negative % (Normal) 14-Wla-880416:40 AMMONIA (87095) Comments: PATIENT NOT FASTINGPERFORMED BY: CB [facility] Xhyqea3193 Hansen RoadDublin [place] [id number] BY: [address] [id number] Ammonia, Plasma 42 ug/dL (Normal) Range: 27-102 72-Bcl-725165:40 VITAMIN B-12 Comments: PATIENT NOT FASTINGPERFORMED BY: CB [facility] Oukjsc5018 Hansen RoadDublin [place] [id number] BY: [address] [id number] (CYANOCOBALAMIN) (37456) Vitamin B12 417 pg/mL (Normal) Range: 211-946 56-Esd-610231:40 SED RATE ERYTHROCYTE Comments: PATIENT NOT FASTINGPERFORMED BY: Fem[place] [id number] [facility] [id number] BY: [address] [id number] (84061) Sedimentation Rate-Westergren 8 mm/h (Normal) Range: 0-30 32-Cgc-904074:40 RHEUMATOID FACTOR-QUANT Comments: PATIENT NOT FASTINGPERFORMED BY: [place] [id number] [facility] [id number] BY: Syncing.Net[address] [id number] (21629) RA Latex Turbid. 10.8 {IU/mL} (Normal) Range: 0.0-13.9 :40 METABOLIC PANEL, Comments: PATIENT NOT FASTINGPERFORMED BY: [place] [id number] [facility] [id number] BY: [employer].[address] [id number] COMPREHENSIVE (53630) ALT (SGPT) 25 [iU]/L (Normal) Range: 0-44 [...] Glucose, Serum 100 mg/dL (Abnormal) Range: 65-99 57-Acp-292818:40 C-REACTIVE PROTEIN Comments: PATIENT NOT FASTINGPERFORMED BY: Femasys[address] [id number] BY: Femasys[address] [id number] (72153) C-Reactive Protein, Quant 0.9 mg/L (Normal) Range: 0.0-4.9 :40 CBC (AUTO) (69488) Comments: PATIENT NOT FASTINGPERFORMED BY: Femasys[address] [id number] BY: Femasys[address] [id number] Platelets 194 {x10E3/uL} (Normal) Range: 150-379 RDW 15.6 % (Abnormal) Range: 12.3-15.4 MCHC 33.1 g/dL (Normal) Range: 31.5-35.7 MCH 34.4 pg (Abnormal) Range: 26.6-33.0 MCV 104 fL (Abnormal) Range: 79-97 Hematocrit 39.9 % (Normal) Range: 37.5-51.0 Hemoglobin 13.2 g/dL (Normal) Range: 12.6-17.7 RBC 3.84 {x10E6/uL} (Abnormal) Range: 4.14-5.80 WBC 5.9 {x10E3/uL} (Normal) Range: 3.4-10.8 :40 CHIQUI (ANTINUCLEAR ANTIBODY) Comments: PATIENT NOT FASTINGPERFORMED BY: [place] [id number] [facility] [id number] BY: [address] [id number] (88114) CHIQUI Direct Negative (Normal) :40 TSH (03142) Comments: PATIENT NOT FASTINGPERFORMED BY: [place] [id number] [facility] [id number] BY: [address] [id number] TSH 2.350 {uIU/mL} (Normal) Range: 0.450-4.500 57-Kix-651095:40 T4, FREE (THYROXINE) Comments: PATIENT NOT FASTINGPERFORMED BY: [place] [id number] [facility] [id number] BY: [address] [id number] (65219) T4,Free(Direct) 0.95 ng/dL (Normal) Range: 0.82-1.77 00-Rtk-983905:40 T3, FREE (TRIDOTHYRONINE) Comments: PATIENT NOT FASTINGPERFORMED BY: [place] [id number] [facility] [id number] BY: [address] [id number] (92178) Triiodothyronine,Free,Serum 2.7 pg/mL (Normal) Range: 2.0-4.4 78-Ebx-140094:40 CALCIFIDIOL (39520) VIT D Comments: PATIENT NOT FASTINGPERFORMED BY: [place] [id number] [facility] [id number] BY: [address] [id number] 25 Vitamin D, 25-Hydroxy 43.4 ng/mL (Normal) Range: 30.0-100.0 Comments: Vitamin D deficiency has been defined by the Champion ofMedicine and an Endocrine Society practice guideline as alevel of serum 25-OH vitamin D less than 20 ng/mL (1,2).The Endocrine Society went on to further define vitamin Dinsufficiency as a level between 21 and 29 ng/mL (2).1. IOM (Champion of Medicine). 2010. Dietary reference intakes for calcium and D. Ca DC: The National Academies Press.2. Elyse MF, Saumya PUENTE, Nai MARIANO, et al. Evaluation, treatment, and prevention of vitamin D deficiency: an Endocrine Society clinical practice guideline. JCEM. 2010; 96(7):1911-30. 98-Ccl-993307:45 Alcohol, Blood (Medical)-Serum Comments: [facility] [address]pr[address]quqx[address] [place], [place], [address] SERUM ETOH 353.0 mg/dL (Abnormal) Comments: CALLED KEESHA LOBO RN ED [place] 2054PM MAF READ BACK BY SAMEThe serum:whole blood ethanol ratio is approximately 1.14and varies slightly with hematocrit.Medical Alcohol reference interval and critical v alue innon-tolerant individuals; 50 - 100 Impairment 100 Intoxication 100 - 250 Severe Poisoning 250 - 400 Deep/possible fatal coma 62-Enp-991935:45 Basic Metabolic Profile (BMP) Comments: 'TROP' Serial specimen #1, #2, #3, or #4: [facility] Ppllndvtio[address] [place], [id number] GAP 10 (Normal) Range: 5-15 CO2 26.0 [...] Range: 70-110 :45 CBC W/Diff, Automated Comments: [facility] [address] [place], [place], [address] Absolute Lymph 2.30 {X10_3/ul} (Normal) Range: 0.83-4.51 [...] Range: 4.4-11.0 :45 Partial Thromboplast Time Comments: [facility] [address] [place], [place], [address] PTT 28.3 s (Normal) Range: 24.1-36.2 :45 Prothrombin Time w/INR Comments: [facility] [address] [place], [address] INR 1.1 (Normal) PROTIME 14.1 s (Normal) Range: 11.7-14.9 :45 Troponin-I Comments: 'TROP' Serial specimen #1, #2, #3, or #4: [facility] Bjkywehowy[address] [place], [address] TROPONIN-I < 0.02 ng/mL (Normal) Comments: TROPONIN-I EXPECTED VALUES <0.05 NEGATIVE 0.06 - 0.59 AT RISK OF [place] > [place] = 0.60 SUGGEST [place] :24 Prothrombin Time w/INR Comments: [facility] [address] [place], [address] ; managed by [facility] INR 1.3 (Normal) PROTIME 15.2 s (Abnormal) Range: 11.7-14.9 90-Gon-392118:46 INR Fingerstick Comments: [facility] Ftvm[address] [place] [address] INR ISTAT 3.90 (Abnormal) Comments: Critical Value > 3.5 :46 Prothrombin Time Fingerstick Comments: [facility] [place] [address] [place], [place] [address] PROTIME ISTAT 43.7 {SEC} (Abnormal) Range: 11.9-14.4 Comments: Reference Range 11.9 - 14.4 :46 Prothrombin Time w/INR Comments: [facility] [address] [place], [address] INR 4.0 (Abnormal) Comments: CRITICAL VALUE VERIFIED. CALLED TO FCBUNGB45/27/17 Nova Walters.RESULTS READ BACK BY SAME . PROTIME 38.0 s (Abnormal) Range: 11.7-14.9 :49 Prothrombin Time w/INR Comments: [facility] [address]wdiq[address] [place], [address] INR 2.8 (Normal) PROTIME 28.4 s (Abnormal) Range: 11.7-14.9 43-Kvg-799013:52 Basic Metabolic Profile (BMP) Comments: Order Date: 05/04/16Order Info: [id number] - *BMPOrder Date: 05/04/16Order Info: [id number] - *Brain Natriuretic Peptide BNPComments: Reason:[facility] [address] [place], [place], [address] GAP 10 (Normal) Range: 5-15 CO2 30.0 [...] 7-18 GLU 104 mg/dL (Normal) Range: 70-110 28-Nyq-084080:52 BNP,B-Type NATRIURETIC PEPTIDE Comments: Order Date: 05/04/16Order Info: [id number] - *Brain Natriuretic Peptide BNPOrder Date: 05/04/16Order Info: [id number] - *Brain Natriuretic Peptide BNPWooCleveland [facility] [address]awflob[address] [place], [place], [address] B-TYPE ARASELI PEP 240.6 pg/mL (Abnormal) Range: 0-100 56-Qtf-627806:52 Prothrombin Time w/INR Comments: [facility] Xgldtewmok0276 [address] [facility] [place], [address] INR 2.5 (Normal) PROTIME 25.8 s (Abnormal) Range: 11.7-14.9 38-Mrr-833111:46 Liver Profile Comments: Order Date: 12/12/15Order Date: 12/12/15[facility] [address]qdrjbv[address] [place], [address] D BILI 0.12 mg/dL (Normal) Range: 0.00-0.30 T BILI 0.30 mg/dL (Normal) Range: 0.20-1.00 ALT 35 U/L (Normal) Range: 12-78 ALK P 56 U/L (Normal) Range: 45-117 AST 25 U/L (Normal) Range: 15-37 Comments: Slight Hemolysis, Result may be falsely increased. GLOB 3.7 g/dL (Abnormal) Range: 2.3-3.5 ALB 3.7 g/dL (Normal) Range: 3.4-5.0 T PROT 7.4 g/dL (Normal) Range: 6.4-8.2 12-Mnu-454611:46 Prothrombin Time w/INR Comments: [facility] [address] [place], [address] INR 3.6 (Abnormal) Comments: CRITICAL VALUE REPEATED AND VERIFIED. CALLED TO DARRYL MEYERS'S OFFICE.04/26/16 1238 Randy Buchanan.RESULTS READ BACK BY SAME. PROTIME 35.0 s (Abnormal) Range: 11.7-14.9 13-Apr-20168:58 Basic Metabolic Profile (BMP) Comments: [facility] [address]xvmnt[address] [place], [phone] GAP 7 (Normal) Range: 5-15 CO2 32.0 [...] Range: 70-110 :58 Prothrombin Time w/INR Comments: [facility] [address] [place], [address] INR 1.9 (Normal) PROTIME 20.9 s (Abnormal) Range: 11.7-14.9 :08 Prothrombin Time w/INR Comments: [facility] [address] [place], [address] INR 3.3 (Normal) PROTIME 32.5 s (Abnormal) Range: 11.7-14.9 :34 Prothrombin Time w/INR Comments: [facility] [address] [place], [address] ; managed by [facility] INR 2.6 (Normal) PROTIME 27.0 s (Abnormal) Range: 11.7-14.9 :16 HgA1C , Office (90264) HgA1C , Office 5.7 % (Normal) Range: 4.6 - 7.1 71-Fth-441600:13 Prothrombin Time w/INR Comments: [facility] [address] [place], [address] INR 2.6 (Normal) PROTIME 27.1 s (Abnormal) Range: 11.7-14.9 :26 CBC W/Diff, Automated Comments: [facility] [address] [place], [address] Absolute Lymph 1.54 {X10_3/ul} (Normal) [...] MAG CBCD CMP MIACRE [facility] [address]bwvb[address] [place], [place], [address] GAP 4 (Abnormal) Range: 5-15 CO2 28.0 [...] MAG CBCD CMP MIACRE [facility] [address]stmizxig[address] [place], [address] VLDL 72 mg/dL (Abnormal) Range: 5-40 LDL [...] ORDERED PT/INRDR.IRVIN ORDERED VITD LIPID MAG CBCD [facility] [address]qa[address] [place], [address] MG 2.6 mg/dL (Abnormal) Range: 1.8-2.4 :26 Microalb:Creat Ratio,Random UR Comments: [facility] [address] [place], [address] MALB:CREAT 24.3 {mg/g_CRE} (Normal) MICROALBUMIN,UR 70.9 mg/L (Normal) UR CREAT 292.00 mg/dL (Normal) :26 Prothrombin Time w/INR Comments: [facility] [address]nsmdvnwb4[address] [place], [address] INR 3.5 (Abnormal) Comments: CRITICAL VALUE REPEATED AND VERIFIED. CALLED TO ORTIZ LABOY'S OFFICE.03/16/16 0742 Randy Buchanan.RESULTS READ BACK BY SAME. PROTIME 33.9 s (Abnormal) Range: 11.7-14.9 :26 Thyroid Stim Hormone (TSH) Comments: ORDERED PT/INRDR.IRVIN ORDERED VITD LIPID MAG CBCD [facility] [address] [place], [address] TSH 2.35 {uIU/mL} (Normal) Range: 0.358-3.74 :26 Urinalysis, Complete Comments: How was Urine Obtained? CLEAN [facility] F[address]ovnqedj[address] [place], [address] HYALINE CAST 5-10 SEEN {/lpf} (Normal) [...] Yellow (Normal) :26 Vitamin D,25 Hydroxy Comments: [facility] [address] [place], [address] Vitamin D 25-OH 39.8 ng/mL (Normal) Comments: Vitamin D 25(OH) Status Range Deficiency <20 ng/mL (50nmol/L) Insuffciency 20 - 30 ng/mL (50 - 75 nmol/L) Sufficiency 30 - 100 ng/mL (75 - 250 nmol/L) Toxicity >100 ng/mL (>250 nmol/L) :03 Prothrombin Time w/INR Comments: [facility] [address] [place], [address](237) INR 4.0 (Abnormal) Comments: CRITICAL VALUE REPEATED AND VERIFIED. [facility]03/10/16 0907 Alice Luque.RESULTS READ BACK BY SAME . PROTIME 37.4 s (Abnormal) Range: 11.7-14.9 :57 Prothrombin Time w/INR Comments: [facility] [address] [place], [address](472) INR 1.6 (Normal) PROTIME 18.3 s (Abnormal) Range: 11.7-14.9 :02 Prothrombin Time w/INR Comments: [facility] [address] [place], [address](124) INR 1.8 (Normal) PROTIME 20.6 s (Abnormal) Range: 11.7-14.9 :12 Prothrombin Time w/INR Comments: [place] [address] [place], [address] INR 2.3 (Normal) PROTIME 24.4 s (Abnormal) Range: 11.7-14.9 :50 Prothrombin Time w/INR Comments: [place] [address] [address] [place], [address] INR 2.8 (Normal) PROTIME 28.9 s (Abnormal) Range: 11.7-14.9 :40 INR Fingerstick Comments: [place] [address] [place] [address](331) INR ISTAT 2.40 (Normal) Comments: Critical Value > 3.5 :40 Prothrombin Time Fingerstick Comments: [place] [address] [address] [place] [address]651 PROTIME ISTAT 27.5 {SEC} (Abnormal) Range: 11.9-14.4 Comments: Reference Range 11.9 - 14.4 :54 Prothrombin Time w/INR Comments: THERE IS NO VRO CHARGE ON THIS PATIENT; THIS PATIENTRETURNED FROM TUESDAY. A BMP AND A PT WAS SUPPOSED TO [place], ONLY THE BMP WAS DONE. [place] [address] [address] [place], [address] INR 2.8 (Normal) PROTIME 28.4 s (Abnormal) Range: 11.7-14.9 37-Mvm-093070:38 Basic Metabolic Profile (BMP) Comments: Order Date: 01/08/16Comments: Reason:Order Date: 01/08/16Comments: Reason:[place] [address] [place], [address] GAP 9 (Normal) Range: 5-15 CO2 [...] A.D.A. criteria. :52 Prothrombin Time w/INR Comments: [facility] [address] [place], [place], [address](352) INR 4.6 (Abnormal) Comments: CRITICAL VALUE REPEATED AND VERIFIED. [facility]02/05/16 1003 Alice Luque.RESULTS READ BACK BY SAME . PROTIME 41.9 s (Abnormal) Range: 11.7-14.9 :01 Prothrombin Time w/INR Comments: [facility] [address] [place], [place], [phone](167) INR 2.5 (Normal) PROTIME 26.0 s (Abnormal) Range: 11.7-14.9 :40 Prothrombin Time w/INR Comments: [facility] [address] [place], [address] INR 2.5 (Normal) PROTIME 26.1 s (Abnormal) Range: 11.7-14.9 :52 Prothrombin Time w/INR Comments: [facility] [address] [place], [place], [address](609) INR 2.3 (Normal) PROTIME 24.3 s (Abnormal) Range: 11.7-14.9 8-Frg-979914:24 Basic Metabolic Profile (BMP) Comments: Order Date: 01/13/16Comments: Reason: For Out patient Cardioversion on 02/16/16Order Date: 01/13/16Comments: Reason: For Out patient Cardioversion on 02/16/16[facility] [address] [place], [place], [address] GAP 5 (Normal) Range: 5-15 CO2 33.0 [...] 7-18 GLU 108 mg/dL (Normal) Range: 70-110 86-Tsi-37155:45 Basic Metabolic Profile (BMP) Comments: Order Date: 12/09/15Interface Comments: Reason:Order Date: 12/09/15[facility] [address] [place], [place], [address] GAP 9 (Normal) Range: 5-15 CO2 29.0 [...] 01/05/16Interface Comments: Reason:Atrial fib, on CoumadinOrder Date: 01/05/16[facility] [address]mc[address] [place], [place], [phone](503) INR 3.6 (Abnormal) Comments: CRITICAL VALUE REPEATED AND VERIFIED. CALLED TO CANDACE P001/07/16 0819 Terrie Toussaint.RESULTS READ BACK BY CANDACE. PROTIME 34.9 s (Abnormal) Range: 11.7-14.9 :21 Prothrombin Time w/INR Comments: [facility] [address] [place], [address](222) INR 2.1 (Normal) PROTIME 23.1 s (Abnormal) Range: 11.7-14.9 :12 Prothrombin Time w/INR Comments: Order Date: 12/26/15Interface Comments: draw on arrivalOrder Date: 12/26/15[facility] [address] [place], [place], [address](375) INR 2.9 (Normal) PROTIME 29.2 s (Abnormal) Range: 11.7-14.9 :08 Prothrombin Time w/INR Comments: [facility] [address]fezg[address] [place], [place], [address](037) INR 1.7 (Normal) PROTIME 19.6 s (Abnormal) Range: 11.7-14.9 :03 Prothrombin Time w/INR Comments: Order Date: 12/18/15Order Date: 12/18/15[facility] [address] [place], [place], [address](804) INR 4.1 (Abnormal) Comments: CRITICAL VALUE REPEATED AND VERIFIED. CALLED TO DARRYL LABOY'S OFFICE.12/23/15 0803 Randy Buchanan.RESULTS READ BACK BY SAME. PROTIME 38.6 s (Abnormal) Range: 11.7-14.9 6-Zfo-003968:16 Basic Metabolic Profile (BMP) Comments: Order Date: 12/18/15Interface Comments: Reason:Order Date: 12/18/15[facility] [address] [place], [address] GAP 9 (Normal) Range: 5-15 [...] A.D.A. criteria. 16-Dec-20158:11 Prothrombin Time w/INR Comments: [facility] [address]pcvmw[address] [place], [place], [address](531) INR 3.6 (Abnormal) Comments: CRITICAL VALUE REPEATED AND VERIFIED. CALLED TO TORITO MEHTA12/16/15 Ondina Luque.RESULTS READ BACK BY SAME . PROTIME 34.5 s (Abnormal) Range: 11.7-14.9 16-Vab-98032:10 Basic Metabolic Profile (BMP) Comments: Order Date: 12/04/15Interface Comments: Reason:Order Date: 12/04/15[facility] [address] [place], [address] GAP 8 (Normal) Range: 5-15 CO2 28.0 [...] Comments: Order Date: 12/04/15Interface Comments: Reason:Order Date: 12/04/15[facility] [address] [place], [place], [address] VLDL Test not performed mg/dL (Normal) Range: [...] Comments: Order Date: 12/04/15Interface Comments: Reason:Order Date: 12/04/15[facility] Whrtbvfwcr3660 [place], [id number] D BILI 0.11 mg/dL (Normal) Range: 0.00-0.30 T BILI 0.30 mg/dL (Normal) Range: 0.20-1.00 ALT 63 U/L (Normal) Range: 12-78 ALK P 64 U/L (Normal) Range: 50-136 AST 33 U/L (Normal) Range: 15-37 GLOB 3.2 g/dL (Normal) Range: 2.3-3.5 ALB 3.5 g/dL (Normal) Range: 3.4-5.0 T PROT 6.7 g/dL (Normal) Range: 6.4-8.2 74-Mfg-84753:10 Magnesium Comments: Order Date: 12/04/15Interface Comments: Reason:Order Date: 12/04/15[facility] Jxzsxzynho7512 [place], [id number] MG 2.1 mg/dL (Normal) Range: 1.8-2.4 :10 Prothrombin Time w/INR Comments: Order Date: 12/04/15Interface Comments: Reason:Order Date: 12/04/15[facility] Aoqfbzodah4844 [place], [id number] INR 1.7 (Normal) PROTIME 19.3 s (Abnormal) Range: 11.7-14.9 :10 Thyroid Stim Hormone (TSH) Comments: Order Date: 12/04/15Interface Comments: Reason:Order Date: 12/04/15[facility] Tjnmqjniyc3867 [place], [id number] TSH 1.65 {uIU/mL} (Normal) Range: 0.358-3.74 :41 MAGNESIUM (90577) Comments: PATIENT NOT FASTINGPERFORMED BY: P3 [facility] MediaCoHunterdon Medical CenterMwtzlo8035 [facility] [id number] Magnesium, Serum 2.1 mg/dL (Normal) Range: 1.6-2.3 [...] Panel, Basic Comments: PATIENT NOT FASTINGPERFORMED BY: P3 [employer] Sbnevb9161 [facility] [id number] Information: [id number] (53206) Calcium, Serum 9.1 mg/dL (Normal) Range: 8.6-10.2 [...] Range: 65-99 :21 Blood Glucose , Office (96291) Blood Glucose , Office 99 (Normal) :21 HgA1C , Office (57570) HgA1C , Office 5.0 % (Normal) Range: 4.6 - 7.1 :49 RETICULOCYTE COUNT (98624) Comments: PATIENT NOT FASTINGPERFORMED BY: [facility] Hqjawz2845 [facility] [id number] Reticulocyte Count 2.4 % (Normal) Range: 0.6-2.6 85-Zye-919955:49 VITAMIN B-12 (CYANOCOBALAMIN) Comments: PATIENT NOT FASTINGPERFORMED BY: [facility] Pspfxk7765 [facility] [id number] Information: [id number] (24105) Vitamin B12 560 pg/mL (Normal) Range: 211-946 :36 Bilirubin, Direct Comments: [facility] [address] [place], [place], [address] D BILI 0.14 mg/dL (Normal) Range: 0.00-0.30 :36 CBC W/Diff, Automated Comments: [facility] [address] [place], [place], [address] Absolute Lymph 1.26 {X10_3/ul} (Normal) Range: 0.83-4.51 [...] 4.6-6.2 WBC 5.1 K/mm3 (Normal) Range: 4.4-11.0 34-Wjj-85339:36 Comprehensive Metabolic Profil Comments: [facility] [address]xbze[address] [place], [address] GAP 6 (Normal) Range: 5-15 CO2 30.0 [...] per A.D.A. criteria. :36 Lipid Profile Comments: [facility] [address]acpwasapp[address] [place], [place], [address] VLDL 62 mg/dL (Abnormal) Range: 5-40 LDL [...] High Risk :36 Microalb:Creat Ratio,Random UR Comments: [facility] [address]wd[address] [place], [place], [address] MALB:CREAT 142.0 {mg/g_CRE} (Abnormal) MICROALBUMIN,UR 223.0 mg/L (Normal) UR CREAT 157.00 mg/dL (Normal) :36 Thyroid Stim Hormone (TSH) Comments: [facility] [address]fpupkgx[address] [place], [place], [address] TSH 1.17 {uIU/mL} (Normal) Range: 0.358-3.74 :36 Urinalysis, Complete Comments: How was Urine Obtained? [facility] Yqogkfvjgr[address] [place], [place], [phone] MUCUS, URINE 0 SEEN {/hpf} (Normal) BACTERIA [...] Yellow (Normal) :36 Vitamin D,25 Hydroxy Comments: [facility] [address]fduumtinf[address] [place], [place], [address] Vitamin D 25-OH 21.0 ng/mL (Normal) Comments: Vitamin D 25(OH) Status Range Deficiency <20 ng/mL (50nmol/L) Insuffciency 20 - 30 ng/mL (50 - 75 nmol/L) Sufficiency 30 - 100 ng/mL (75 - 250 nmol/L) Toxicity >100 ng/mL (>250 nmol/L) :29 HgA1C , Office (82788) HgA1C , Office 5.6 % (Normal) Range: 4.6 - 7.1 :29 Blood Glucose , Office (63620) Blood Glucose , Office 96 (Normal) :29 CBC W/Diff, Automated Comments: [facility] [address]xwt[address] [place], [place], [address] Absolute Lymph 2.04 {X10_3/ul} (Normal) Range: 0.83-4.51 [...] 4.6-6.2 WBC 7.9 K/mm3 (Normal) Range: 4.4-11.0 91-Zmh-395255:29 Comprehensive Metabolic Profil Comments: [facility] G[address]fzvdzma8508 [place], [address] GAP 12 (Normal) Range: 5-15 CO2 25.0 [...] HOMEOSTASIS per A.D.A. criteria. :16 Rapid Flu (74841 x 2) Influenza A Ag neg a and b (Normal) :13 Basic Metabolic Profile (BMP) Comments: [facility] Q[address]cpcjqba[address] [place], [address] GAP 4 (Abnormal) Range: 5-15 CO2 33.0 [...] (Normal) Range: 70-110 :50 HgA1C , Office (73827) HgA1C , Office 5.2 % (Normal) Range: 4.6 - 7.1 :50 Blood Glucose , Office (51217) Blood Glucose , Office 111 (Normal) :48 Basic Metabolic Profile (BMP) Comments: [facility] [address] [place], [id number] GAP 7 (Normal) Range: 5-15 CO2 31.0 [...] A.D.A. criteria. :48 T4 Total, Thyroxin Comments: [facility] [address] [place], [address] T4 THYROXIN 6.7 ug/dL (Normal) Range: 4.5-12.1 :48 Thyroid Stim Hormone (TSH) Comments: [facility] [address] [place], [address] TSH 1.02 {uIU/mL} (Normal) Range: 0.358-3.74 :35 CBC W/Diff, Automated Comments: [facility] [id number] [place], [address] Absolute Lymph 1.13 {X10_3/ul} (Normal) Range: [...] Range: 4.4-11.0 :35 Comprehensive Metabolic Profil Comments: [facility] [address] [place], [address] GAP 5 (Normal) Range: 5-15 CO2 31.0 [...] (Normal) Range: 70-110 :35 Lipid Profile Comments: [facility] [address] [facility] [place], [place], [id number] VLDL 44 mg/dL (Abnormal) Range: 5-40 LDL [...] High Risk :35 Microalb:Creat Ratio,Random UR Comments: [facility] [address] [place], [address] MALB:CREAT 31.9 {mg/g_CRE} (Abnormal) MICROALBUMIN,UR 31.7 mg/L (Normal) UR CREAT 99.40 mg/dL (Normal) :35 Thyroid Stim Hormone (TSH) Comments: [facility] [address] [place], [address] TSH 1.05 {uIU/mL} (Normal) Range: 0.358-3.74 :35 Urinalysis, Complete Comments: How was Urine Obtained? [facility] [address] [place], [address] MUCUS, URINE 0 SEEN {/hpf} [...] COLOR Yellow (Normal) :48 HgA1C , Office (36307) HgA1C , Office 5.2 % (Normal) Range: 4.6 - 7.1 :48 Blood Glucose , Office (83483) Blood Glucose , Office 114 (Normal) [id number] MRSA/SAID SCREEN Comments: [facility] [address] [place], [address] MRSA+SAID SCRN See Note (Normal) Comments: MRSA/SAID SCRNS. AUREUS S. aureus NegativeMRSA MRSA Negative :13 CBC W/Diff, Automated Comments: Test performed at:[facility] [address] [place] [address] Absolute Lymph 1.57 {X10_3/ul} (Normal) Range: [...] 4.6-6.2 WBC 5.3 K/mm3 (Normal) Range: 4.4-11.0 06-Asn-38753:13 Comprehensive Metabolic Profil Comments: Test performed at:[facility] [address] [place], [place] [id number] GAP 4 (Abnormal) Range: 5-15 CO2 31.0 [...] 70-110 :13 Lipid Profile Comments: Test performed at:[facility] [address] [place] [address] VLDL 35 mg/dL (Normal) Range: 5-40 LDL [...] :13 Microalb:Creat Ratio,Random UR Comments: Test performed at:[facility] [address] [facility] [place], [place] [address] MALB:CREAT 5.0 {mg/g_CRE} (Normal) MICROALBUMIN,UR 5.2 mg/L (Normal) UR CREAT 89.50 mg/dL (Normal) :13 Thyroid Stim Hormone (TSH) Comments: Test performed at:[facility] [address] [place] [address] TSH 0.97 {uIU/mL} (Normal) Range: 0.358-3.74 :13 Urinalysis, Routine (Dipstick) Comments: How was Urine Obtained? CLEAN CATCHTest performed at:[facility] [address] [facility] [place] [address] LEUK ESTERASE Negative /ul (Normal) [...] COLOR Yellow (Normal) :35 HgA1C , Office (88632) HgA1C , Office 5.7 % (Normal) Range: 4.6 - 7.1 :35 Blood Glucose , Office (48211) Blood Glucose , Office 111 (Normal) :40 Miscellaneous Lab Procedure Comments: Comments: DRUG SCREEN [id number]) Ordered: DRUG SCREEN [id number] performed at:[facility] [address] [facility] [place], [place] [address] ; ordered by [facility] Comments: [id number] 6+OXYCODONE-BUND (ng/mL)DRUG RESULT SCREEN CUTOFF____ Amphetamines NEGAT LAB (Normal) BARI ng/mL 1000Barbiturates NEGATIVE ng/mL 200Benzodiazepines NEGATIVE ng/mL 200Cannabinoid NEGATIVE ng/mL 20Cocaine (Metab) NEG TEST ATIVE ng/mL 300Opiates NEGATIVE ng/mL 300 Opiates test includes Codeine, Morphine, Hydromorphone, Hydrocodone.Oxycodone/Oxymorphone,Urine NEGATIVE ng/mL 300 Test includes Oxydodone and Oxymorphone. TESTING PERFORMED AT [facility]. ORIGINAL REPORT ON FILE IN LAB CONTAINS ADDITIONAL TEST SITE INFORMATIO N. 6-Fky-326779:40 Urine Drug Screen (VISTA) Comments: Comments: DRUG SCREEN [id number] of Drugs Taken or Suspected? .Test performed at:[facility] [address] [facility] [place] [address] THC NEGATIVE (Normal) PCP NEGATIVE [...] TESTING MUST BE ORDERED SEPARATELY. USE TESTMNEMONIC: [facility] :25 Vitamin D,25 Hydroxy Comments: Has pt arrived? YTest performed at:[facility] [address] [facility] [place] [address] Vitamin D 25-OH 38.2 ng/mL (Normal) Comments: Vitamin D 25(OH) Status Range Deficiency <20 ng/mL (50nmol/L) Insuffciency 20 - 30 ng/mL (50 - 75 nmol/L) Sufficiency 30 - 100 ng/mL (75 - 250 nmol/L) Toxicity >100 ng/mL (>250 nmol/L) :24 Urinalysis, Routine (Dipstick) Comments: Has pt arrived? YHow was Urine Obtained? CLEAN CATCHTest performed at:[facility] [address] [place] [address] LEUK ESTERASE Negative /ul (Normal) [...] pt arrived? YHas pt arrived? YTest performed at:[facility] [address] [place] [address] GAP 5 (Normal) Range: 5-15 [...] pt arrived? YHas pt arrived? YTest performed at:[facility] [address] [place] [address] VLDL 12 mg/dL (Normal) Range: [...] UR Comments: Has pt arrived? YTest performed at:[facility] [address] [facility] [place] [address] MALB:CREAT 4.2 {mg/g_CRE} (Normal) MICROALBUMIN,UR 5.6 mg/L (Normal) UR CREAT 131.9 mg/dL (Normal) :23 Thyroid Stim Hormone (TSH) Comments: Has pt arrived? YHas pt arrived? YTest performed at:[facility] [address] [place] [address] TSH 1.09 {uIU/mL} (Normal) Range: 0.358-3.74 :22 CBC W/Diff, Automated Comments: Has pt arrived? YTest performed at:[facility] [address] [place] [address] Absolute Lymph 1.37 {X10_3/ul} (Normal) [...] (Abnormal) Range: 4.4-11.0 :54 HgA1C , Office (43871) HgA1C , Office 5.8 % (Normal) Range: 4.6 - 7.1 :02 Basic Metabolic Profile (BMP) Comments: ADDED BMPTest performed at:[facility] [address] [place] [address] GAP 6 (Normal) Range: 5-15 [...] 70-110 :02 Lipid Profile Comments: Test performed at:[facility] [address] [place], [place] [address] VLDL 96 mg/dL (Abnormal) Range: 5-40 LDL [...] Risk :02 Liver Profile Comments: Test performed at:[facility] [address] [facility] [place], [place] [address] D BILI 0.10 mg/dL (Normal) Range: 0.00-0.30 [...] performed using the TPSA assay method for the[employer] chemistry system. Values obtained with differentassay methods cannot be used interchangably.When changing PSA assays in the course of monitoring apatient, additional sequential testing should be carriedout to confirm baseline values. :44 UA Comments: How was Urine Obtained? Urine, Random [...] UCOL Yellow (Normal) :25 HgA1C , Office (40202) HgA1C , Office 5.8 % (Normal) Range: 4.6 - 7.1 :10 Blood Glucose , Office (35745) Blood Glucose , Office 83 (Normal) :10 HgA1C , Office (72590) HgA1C , Office 5.7 % (Normal) Range: [...] 08/13/10 1143 Sign by: JESS HENDRICKS MD 05-Kec-996559:21 COMPLETE UA BACTERIA 0 SEEN {/hpf} (Normal) [...] NEGATIVE 0.06 - 0.59 AT RISK OF [place] > [place] = 0.60 SUGGEST [place] :52 COMP METABOLIC Comments: Please Note: TROPONIN [...] 200-240 mg/dL Borderline >240 mg/dL High Risk 2-Xbn-701141:52 KIDNEY Radiology Report See Note (Normal) Comments: [...] kidneys. Dictated on 05/15/10 12 44 by Doug Manuelscribed on 05/16/1031 by ITS IMPORTSign by Osvaldo Manuel on 05/16/1032 Sign by: Osvaldo Manuel 14-Mar-20107:23 CBCD,SMEAR DIFF RED CELL MORPH SeeNote {NORMAL} [...] CHOL 127 mg/dL (Normal) Comments: <200 mg/dL Whjgdnbxy575-799 mg/dL Borderline>240 mg/dL High Risk :10 CBCD [...] CHOL 146 mg/dL (Normal) Comments: <200 mg/dL Zxzavcnoa987-602 mg/dL Borderline>240 mg/dL High Risk TRIG 166 [...] Report See Note (Normal) Comments: Exam Number: [id number] CLINICAL: Fatigue MRI BRAIN WITH AND WITHOUT [...] of remotetrauma. Reported By: HUEY ERAZO M.D. 45-Qvw-412616:19 CHIQUI-D 239525 CHIQUI-DIRECT SeeNote (Normal) Comments: Result: NegativePerformed At: [facility] [address]dlkf[address] [place], [place] [id number] :07 B12/FOLATES FOLATES 26.50 ng/mL (Abnormal) Range: [...] 6.4-8.2 GLU 75 mg/dL (Normal) Range: 70-110 52-Esz-225734:28 ESR SED RATE 6 mm/h (Normal) Range: 0-20 34-Mbm-553835:28 CBCD BASO% 0.5 % (Normal) Range: 0-1 [...] 4.6-6.2 WBC 9.4 K/mm3 (Normal) Range: 4.4-11.0 6-Rrf-760018:18 CULTURE, THROAT See Note (Normal) Comments: Normal throat susanne isolated. No beta-hemolyticstreptococcus isolated. 14-Apr-20098:48 Rapid Strep Test, Office (33636) Rapid Strep Test, Office Negative (Normal) 7-Zyy-943706:59 CTA NECK W/WO CONTRAST Radiology Report See Note (Normal) Comments: Exam Number: [id number] HISTORYCarotid stenosis. Abnormal carotid artery ultrasound. CT [...] K 4.5 mmol/L Range: 3.5-5.1 0:00 (Normal) 46-Ueb-630640:19 BMP BUN 35 mg/dL (Abnormal) Range: 7-18 [...] 254-1320 :43 FECAL OCCULT- Tubes sent home (92665) FECAL OCCULT HGB ASSAY, QUAL, 1-3 SIMULTANEOU neg (Normal) :12 Rapid Flu (02110 x 2) Comments: done BC INFLUENZA IMMUNOASSY [...] was performed using the TPSA method for the[employer] chemistry system.Values obtained with different assay methods [...] GLU 2 HR GLU GTT-2 HOUR from 918:O51805H. Range: 70-120 :05 GLU GTT-1 HOUR 183 mg/dL (Abnormal) Comments: 2HR GTT GLU 1 HR GLU GTT-1 HOUR from 918:Z06038A. Range: 120-170 :31 GLU GTT-30 min. 170 mg/dL (Normal) Comments: 2HR GTT GLU 1/2 HR GLU GTT-30 min. from 918:X30372P. Range: 110-170 :00 D BILI 0.09 mg/dL [...] Comments: 2HR GTT FASTING GLU GTT-FASTING from 0919:Z49568L. Range: 70-110 Comments: GLUCOSE TOLERANCE TEST Reference [...] was performed using the TPSA method for [employer] chemistry system.Values obtained with different assay methods [...] disease Coronary artery disease, non-occlusive : Reviewed Maxillofacial Surgeon Letter Indication: Coronary artery disease, non-occlusive BMI 40.0-44.9, adult : Eprescribed prescriptions (G8553) Indication: BMI 40.0-44.9, adult Impaired fasting glucose : Follow up in 4 months Indication: Impaired fasting glucose Coronary artery disease, non-occlusive : Reviewed Maxillofacial Surgeon Letter Indication: Coronary artery disease, non-occlusive Hypertension [...] controlled Coronary artery disease, non-occlusive : Reviewed Maxillofacial Surgeon Letter Indication: Coronary artery disease, non-occlusive Hypertension [...] glucose Coronary artery disease, non-occlusive : Reviewed Maxillofacial Surgeon Letter Indication: Coronary artery disease, non-occlusive 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 Indication: Hypertension with heart disease Impaired fasting glucose : *Diabetes Education Indication: Impaired fasting glucose Nonsmoker : Eprescribed prescriptions (G8553) Indication: Nonsmoker Depression, acute : Reviewed Maxillofacial Surgeon Letter Indication: Depression, acute Other chronic pain : Reviewed Lab Indication: Other chronic pain Depression, acute : Follow up in 2 weeks Indication: Depression, acute Accidental fall, initial encounter : Follow up in 1 week Indication: Accidental fall, initial encounter Depression : Reviewed Lab Indication: Depression Depression : Reviewed Diagnostic Tests Indication: Depression Depression : Reviewed Maxillofacial Surgeon Letter Indication: Depression Cellulitis : Eprescribed prescriptions (G8553) Indication: Cellulitis Cellulitis : Follow up in 1 week Indication: Cellulitis Nonsmoker : Eprescribed prescriptions (G8553) Indication: Nonsmoker Hypertension with heart disease : Reviewed Lab Indication: Hypertension with heart disease Impaired fasting glucose : Follow up in 4 months Indication: Impaired fasting glucose Hypertension with heart disease : Reviewed Maxillofacial Surgeon Letter Indication: Hypertension with heart disease Hypertension [...] artery disease Coronary artery disease : Reviewed Maxillofacial Surgeon Letter Indication: Coronary artery disease Carotid stenosis : Reviewed Maxillofacial Surgeon Letter Indication: Carotid stenosis Hypercholesterolemia : Cholesterol [...] artery disease Coronary artery disease : Reviewed Maxillofacial Surgeon Letter: sees Dr Maria Indication: Coronary artery disease Impaired fasting glucose : Eprescribed prescriptions (G8553) Indication: Impaired fasting glucose Hypercholesterolemia : Cholesterol mgmt Indication: Hypercholesterolemia Coronary artery disease : Continue Current Prescription(s) Indication: Coronary artery disease Coronary artery disease : Reviewed Maxillofacial Surgeon Letter Indication: Coronary artery disease 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 Indication: Hypertension with heart disease Hypertension with heart disease : Follow up in 4 months Indication: Hypertension with heart disease Impaired fasting glucose : Eprescribed prescriptions (G8553) Indication: Impaired fasting glucose Coronary artery disease : Reviewed Maxillofacial Surgeon Letter Indication: Coronary artery disease Impaired fasting [...] Indication: Hypercholesterolemia Coronary artery disease : Reviewed Maxillofacial Surgeon Letter Indication: Coronary artery disease Impaired fasting [...] artery disease Planned Observations HgA1C , Office (96522)Indication: Impaired fasting glucose On: 44-Jqq-458684:57 Request TSH (16419)Indication: Atrial fibrillation, controlled On: :30 Request URINALYSIS, W/ MICRO (80539)Indication: Hypertension with heart disease On: :30 Request MICROALBUMIN: CREATININE RATIO (55264) AND (77480)Indication: Hypertension with heart disease On: :30 Request METABOLIC PANEL, COMPREHENSIVE (72561)Indication: Hypertension with heart disease On: :30 Request LIPID PANEL (65349)Indication: Coronary artery disease, non-occlusive On: :30 Request CBC W/AUTO DIFF WBC (87699)Indication: Hypertension with heart disease On: :29 Request VITAMIN B-12 (CYANOCOBALAMIN) (73610)Indication: Vitamin B12 deficiency On: :29 Request CALCIFIDIOL (29675) VIT D 25Indication: Vitamin D deficiency On: :29 Request VITAMIN B-12 (CYANOCOBALAMIN) (82130)Indication: Vitamin B12 deficiency On: 27-Xak-74066:36 Request CALCIFIDIOL (58411) VIT D 25Indication: Vitamin D deficiency On: :35 Request TSH (19894)Indication: Impaired fasting glucose On: :34 Request URINALYSIS, W/ MICRO (24722)Indication: Hypertension with heart disease On: :34 Request MICROALBUMIN: CREATININE RATIO (17629) AND (52192)Indication: Hypertension with heart disease On: :34 Request METABOLIC PANEL, COMPREHENSIVE (79944)Indication: Hypertension with heart disease On: :34 Request LIPID PANEL (79898)Indication: Hypercholesterolemia On: :34 Request CBC W/AUTO DIFF WBC (75521)Indication: Hypertension with heart disease On: :34 Request RIBOFLAVIN (B-2) (18428)Indication: Drug intoxication with delirium On: 56-Cyk-581615:09 Request LIPID PANEL (35054)Indication: Hypercholesterolemia On: :35 Request VITAMIN B-12 (CYANOCOBALAMIN) (06429)Indication: Vitamin B12 deficiency On: 21-Fco-65864:28 Request CALCIFIDIOL (69248) VIT D 25Indication: Vitamin D deficiency On: :27 Request MAGNESIUM (99972)Indication: Hypermagnesemia On: :27 Request FECAL OCCULT- Tubes sent home (48185)Indication: Encounter for screening for malignant neoplasm of colon (Renamed from Special screening for malignant neoplasms, colon) On: 7-Rwi-486944:03 Request PSA (PROSTATE SPECIFIC ANTIGEN) (V76.44)Indication: Encounter for screening for malignant neoplasm of prostate (Renamed from Screening for prostate cancer) On: 5-Dpt-032694:03 Request TSH (88164)Indication: Impaired fasting glucose On: :22 Request URINALYSIS, W/ MICRO (12003)Indication: Impaired fasting glucose On: :22 Request MICROALBUMIN: CREATININE RATIO (94878) AND (79122)Indication: Impaired fasting glucose On: :22 Request METABOLIC PANEL, COMPREHENSIVE (06192)Indication: Impaired fasting glucose On: :21 Request LIPID PANEL (96961)Indication: Hypercholesterolemia On: :21 Request CBC W/AUTO DIFF WBC (46657)Indication: Impaired fasting glucose On: : Request CALCIFIDIOL (80265) VIT D 25Indication: Vitamin D deficiency On: :21 Request HEPATIC FUNCTION PANEL (16511)Indication: Elevated liver enzymes On: :29 Request METABOLIC PANEL, COMPREHENSIVE (80265)Indication: Dizzy On: :54 Request CBC W/AUTO DIFF WBC (80148)Indication: Dizzy On: :54 Request FECAL OCCULT- Tubes sent home (54987)Indication: Melena On: :52 Request CALCIFIDIOL (63816) VIT D 25Indication: Dysthymic On: :52 Request TSH (06897)Indication: Hypercholesterolemia On: :52 Request URINALYSIS, W/ MICRO (84342)Indication: Hypertension with heart disease On: 38-Dqd-144178:52 Request MICROALBUMIN: CREATININE RATIO (97813) AND (84763)Indication: Hypertension with heart disease On: :52 Request METABOLIC PANEL, COMPREHENSIVE (22693)Indication: Hypertension with heart disease On: 63-Qbr-805863:52 Request LIPID PANEL (67254)Indication: Hypercholesterolemia On: :52 Request CBC W/AUTO DIFF WBC (93771)Indication: Hypertension with heart disease On: 56-Hgd-998088:51 Request TSH (12686)Indication: Impaired fasting glucose On: :45 Request URINALYSIS, W/ MICRO (25420)Indication: Impaired fasting glucose On: :45 Request MICROALBUMIN: CREATININE RATIO (55207) AND (93322)Indication: Impaired fasting glucose On: :45 Request METABOLIC PANEL, COMPREHENSIVE (83961)Indication: Impaired fasting glucose On: :45 Request LIPID PANEL (23784)Indication: Impaired fasting glucose On: :45 Request CBC W/AUTO DIFF WBC (83959)Indication: Impaired fasting glucose On: 81-Pno-82534:45 Request CALCIFIDIOL (63490) VIT D 25Indication: Impaired fasting glucose On: :55 Request LIPID PANEL (43957)Indication: Hypertension On: :50 Request TSH (65178)Indication: Impaired fasting glucose On: :50 Request MICROALBUMIN: CREATININE RATIO (95326) AND (97225)Indication: Hypertension On: :50 Request METABOLIC PANEL, COMPREHENSIVE (59626)Indication: Hypertension On: :50 Request MICROALBUMIN: CREATININE RATIO (89458) AND (66828)Indication: Hypertension On: :38 Request URINALYSIS (92543)Indication: Hypertension On: :36 Request CBC WITH MANUAL DIFF (53345)Indication: Hypertension On: :36 Request Metabolic Panel, Comprehensive (59380)Indication: Hypertension On: :36 Request Lipid Panel (55411)Indication: Hypercholesterolemia On: :36 Request MICROALBUMIN: CREATININE RATIO (65641) AND (90848)Indication: Hypertension On: 95-Xpy-369632:57 Request URINALYSIS (75784)Indication: Hypertension On: 19-Guz-080012:57 Request CBC WITH MANUAL DIFF (93547)Indication: Hypertension On: 97-Dsl-352151:56 Request Metabolic Panel, Comprehensive (19315)Indication: Hypertension On: 00-Bsh-165547:56 Request CALCIFEDIOL (51303)Indication: Hypertension On: 98-Rly-122532:56 Request TSH (79540)Indication: Hypertension On: 58-Xsm-178019:56 Request Lipid Panel (61424)Indication: Hypercholesterolemia On: 16-Hds-196138:56 Request Lipid Panel (61338)Indication: Hypercholesterolemia On: 34-Eaz-640275:13 Request URINALYSIS, W/ MICRO (03042)Indication: Hypertension On: :02 Request MICROALBUMIN: CREATININE RATIO (32288) AND (75956)Indication: Impaired fasting glucose On: 9-Iqh-560065:02 Request CBC W/AUTO DIFF WBC (58459)Indication: Impaired fasting glucose On: 9-Lbt-549756:02 Request METABOLIC PANEL, COMPREHENSIVE (06003)Indication: Impaired fasting glucose On: 2-Kyr-364723:02 Request PSA (PROSTATE SPECIFIC ANTIGEN) (V76.44)Indication: Benign prostatic hyperplasia with urinary obstruction and other lower urinary tract symptoms On: 15-Jan-20149:55 Request CREATINE KINASE TOTAL (70254)Indication: SOB (shortness of breath) on exertion On: :32 Request Comments: stat D-Dimer (15956)Indication: SOB (shortness of breath) on exertion On: :32 Request CBC (Auto) (97811)Indication: SOB (shortness of breath) on exertion On: :32 Request Troponin I (62958)Indication: SOB (shortness of breath) on exertion On: : Request CPK MB FRACTION (60994)Indication: SOB (shortness of breath) on exertion On: :31 Request MICROALBUMIN: CREATININE RATIO (22819) AND (35782)Indication: Impaired fasting glucose On: :10 Request CBC WITH MANUAL DIFF (87700)Indication: Hypertension On: :04 Request LIPID PANEL (21433)Indication: Hypercholesterolemia On: :04 Request METABOLIC PANEL, COMPREHENSIVE (22390)Indication: Hypertension On: :04 Request CBC WITH MANUAL DIFF (57046)Indication: Hypertension On: : Request URINALYSIS, W/ MICRO (90770)Indication: Hypertension On: :28 Request TSH (30487)Indication: Dysthymic On: :28 Request PSA (PROSTATE SPECIFIC ANTIGEN) (V76.44)Indication: Benign prostatic hyperplasia with urinary obstruction and other lower urinary tract symptoms On: : Request LIPID PANEL (67243)Indication: Hypercholesterolemia On: : Request METABOLIC PANEL, COMPREHENSIVE (55090)Indication: Hypertension On: : Request ASSAY, TROPONIN, QUANTITATIVE (aka Troponin I) (63969)Indication: SOB (shortness of breath) on exertion On: :08 Request Comments: stat D-Dimer (50247)Indication: SOB (shortness of breath) on exertion On: 71-Tlj-322143:08 Request Comments: stat URINALYSIS, W/ MICRO (89457)Indication: Edema On: :06 Request TSH (49034)Indication: Edema On: :06 Request METABOLIC PANEL, COMPREHENSIVE (15898)Indication: Edema On: : Request CBC WITH MANUAL DIFF (12659)Indication: Edema On: : Request URINE BERTHA CULTURE-SUKHWINDER COL COUNT (75183)Indication: PYELONEPHRITIS, ACUTE NOS On: :25 Request LIPID PANEL (55157)Indication: Hypercholesterolemia On: :12 Request METABOLIC PANEL, COMPREHENSIVE (14177)Indication: Hypertension On: :12 Request PSA (PROSTATE SPECIFIC ANTIGEN) (V76.44)Indication: Benign prostatic hyperplasia with urinary obstruction and other lower urinary tract symptoms On: :33 Request URINALYSIS, W/ MICRO (04788)Indication: Hypertension On: :33 Request CBC WITH MANUAL DIFF (75221)Indication: Hypertension On: :33 Request METABOLIC PANEL, COMPREHENSIVE (63749)Indication: Hypertension On: 78-Wnw-62665:32 Request LIPID PANEL (85489)Indication: Hypercholesterolemia On: :32 Request CBC WITH MANUAL DIFF (91812)Indication: Hypertension On: 5-Gwl-823937:14 Request METABOLIC PANEL, COMPREHENSIVE (68835)Indication: Hypertension On: 5-Lnb-678089:14 Request LIPID PANEL (39871)Indication: Hypercholesterolemia On: 5-Cxk-759830:13 Request CBC, PLATELETS & AUT DIFF (78508)Indication: Anemia, unspecified On: 7-Ddd-234117:38 Request Comments: Repeat 3wks beginning of June Renal function Panel (17401)Indication: Abnormal blood chemistry On: 7-Kjf-023966:35 Request Comments: repeat 3 wks Beginning of June Folate (20182)Indication: Fatigue On: 91-Mrz-769946:23 Request VITAMIN B-12 (CYANOCOBALAMIN) (47600)Indication: Fatigue On: :23 Request TSH (04373)Indication: Fatigue On: :23 Request SED RATE ERYTHROCYTE (84974)Indication: Fatigue On: : Request RHEUMATOID FACTOR-QUANT (85581)Indication: Fatigue On: :23 Request METABOLIC PANEL, COMPREHENSIVE (52131)Indication: Fatigue On: :23 Request C-REACTIVE PROTEIN (32377)Indication: Fatigue On: :23 Request CBC (AUTO) (61403)Indication: Fatigue On: :23 Request CHIQUI (ANTINUCLEAR ANTIBODY) (97476)Indication: Fatigue On: : Request BERTHA CULTURE-OTHER (80757)Indication: Pharyngitis, acute On: :48 Request TSH (02689)Indication: Dysthymic On: :48 Request PSA (PROSTATE SPECIFIC ANTIGEN) (V76.44)Indication: Benign prostatic hyperplasia with urinary obstruction and other lower urinary tract symptoms On: :48 Request METABOLIC PANEL, COMPREHENSIVE (95472)Indication: Hypertension On: :46 Request LIPID PANEL (47688)Indication: Hypercholesterolemia On: :46 Request CBC WITH MANUAL DIFF (73523)Indication: Anemia, unspecified On: :46 Request Metabolic Panel, Basic (41847)Indication: Edema On: :44 Request FOLIC ACID SERUM (34109)Indication: Anemia, unspecified On: :43 Request VITAMIN B-12 (CYANOCOBALAMIN) (65463)Indication: Anemia, unspecified On: :43 Request RETICULOCYTE COUNT MANUL (56419)Indication: Anemia, unspecified On: :43 Request LDH (LD) (LACTATE DEHYDROGENASE) (54192)Indication: Anemia, unspecified On: :43 Request IRON BINDING CAPACITY (TIBC) (61430)Indication: Anemia, unspecified On: :43 Request FERRITIN (88571)Indication: Anemia, unspecified On: :43 Request IRON (70501)Indication: Anemia, unspecified On: :43 Request CBC WITH MANUAL DIFF (43675)Indication: Edema On: :40 Request LIPID PANEL (69695)Indication: Hypercholesterolemia On: :36 Request URINALYSIS W/O MICRO (45736)Indication: Hypertension On: :36 Request TSH (10035)Indication: Hypertension On: :36 Request METABOLIC PANEL, COMPREHENSIVE (72427)Indication: Hypertension On: :36 Request CBC WITH MANUAL DIFF (62882)Indication: Hypertension On: :36 Request PSA (PROSTATE SPECIFIC ANTIGEN) (V76.44)Indication: Benign prostatic hyperplasia with urinary obstruction and other lower urinary tract symptoms On: :36 Request METABOLIC PANEL, COMPREHENSIVE (76779)Indication: Hypertension On: :27 Request LIPID PANEL (97113)Indication: Hypercholesterolemia On: 19-Adu-25928:26 Request HEPATIC FUNCTION PANEL (93435)Indication: Hypercholesterolemia On: 39-Qcy-00185:26 Request HEPATIC FUNCTION PANEL (13746)Indication: Hypercholesterolemia On: :52 Request LIPID PANEL (06891)Indication: Hypercholesterolemia On: :52 Request PSA (PROSTATE SPECIFIC ANTIGEN) (V76.44)Indication: Benign prostatic hyperplasia with urinary obstruction and other lower urinary tract symptoms On: 76-Wgb-68097:52 Request URINALYSIS W/O MICRO (10796)Indication: Hypertension On: 43-Dlq-497440:23 Request TSH (76292)Indication: Hypertension On: 42-Hdd-130539:23 Request METABOLIC PANEL, COMPREHENSIVE (63478)Indication: Hypertension On: 97-Jbc-328006:23 Request CBC WITH MANUAL DIFF (93372)Indication: Hypertension On: 29-Wyq-166845:22 Request LIPID PANEL (04915)Indication: Hypercholesterolemia On: 05-Ybc-641005:17 Request HEPATIC FUNCTION PANEL (54528)Indication: Hypercholesterolemia On: 84-Eko-960755:17 Request METABOLIC PANEL, COMPREHENSIVE (54592)Indication: Hypertension On: 39-Vwx-247267:50 Request VITAMIN B-12 (CYANOCOBALAMIN) ([id number])Indication: Fatigue On: :03 Request METABOLIC PANEL, COMPREHENSIVE ([id number])Indication: Fatigue On: :03 Request GLUCOSE TOLERANCE TEST (GTT) 2 hour ([id number])Indication: Fatigue On: :02 Request LIPID PANEL ([id number])Indication: Hypercholesterolemia On: :10 Request Comments: please send to Dr Shore PSA (PROSTATE SPECIFIC ANTIGEN) ([id number])Indication: Benign prostatic hyperplasia with urinary obstruction and other lower urinary tract symptoms On: :10 Request MICROALBUMIN URINE QUANT ([id number])Indication: Hypertension On: :10 Request URINALYSIS W/O MICRO ([id number])Indication: Hypertension On: :10 Request TSH ([id number])Indication: Dysthymic On: :10 Request METABOLIC PANEL, COMPREHENSIVE ([id number])Indication: Hypertension On: :10 Request CBC WITH MANUAL DIFF ([id number])Indication: Hypertension On: :10 Request CBC WITH MANUAL DIFF ([id number])Indication: Hypertension On: :53 Request METABOLIC PANEL, COMPREHENSIVE ([id number])Indication: Hypertension On: :53 Request URINALYSIS W/O MICRO ([id number])Indication: Hypertension On: :53 Request TSH ([id number])Indication: Hypertension On: :53 Request LIPID PANEL ([id number])Indication: Hypercholesterolemia On: :53 Request Planned Encounters Medical; 4 Month FU - On: 01-Mar-2018 8:00 [facility] Jazz Rodas DO, DO, Kathleen Planned Procedures ELECTROCARDIOGRAM, COMPLETE (ECG) On: 27-Oct-2017 Intent ([id number])By: Jazz Rodas DO Comments: nsr no acute chg Jazz LAURA PNEUM VAC ADLT/IMUMNOSPR, SBC/INTRM On: 17-Dec-2016 Intent ([id number])By: Jazz Rodas DO Comments: Lot:[id number]:05/19/18Dose:0.5mgRoute:imSite:l armGiven By:YVETTE signed Jazz LAURA KDSC-TS-[facility] BEHAVIORAL COUNSELING FOR On: 17-Dec-2016 Intent OBESITY, 15 MINUTES (G0447)By: Jazz Rodas DO, DO, Kathleen INTENSIVE BEHAVIORAL THERAPY TO REDUCE On: 17-Dec-2016 Intent CARDIOVASCULAR DISEASE RISK, INDIVIDUAL, PMJB-BE-CDWQ, ANNUAL, 15 MINUTES ([id number])By: Jazz Rodas DO, DO, Kathleen Flu Vaccine (Quadrivalent) [id number]: On: 10-Dec-2016 Intent Jazz Rodas DO, DO, Comments: lot: [id number]: 09/26/17ite/route: L jessika, IMamt: 0.5mlVIS and ABN signed when applicableChelsDUONG piña ELECTROCARDIOGRAM, COMPLETE (ECG) On: 04-Aug-2016 Intent ([id number])By: Jazz Rodas DO Comments: sinus yoko - no acute chg Jazz LAURA Venous Doppler - LeftBy: Avis PERERA, On: 23-Apr-2016 Intent Raya Comments: L lower extremity US DOPPLER VEIN OF EXTREMITY On: 21-Apr-2016 Intent ([id number])By: Raya Albarran MD Comments: US doppler right [...] wound centre and Raya Albarran US GROIN ([id number])By: Raya Albarran MD On: 13-Apr-2016 Intent Comments: US soft tissue of left hip, Rule out abcess. Flu Vaccine (Quadrivalent) [id number]: On: 12-Dec-2015 Intent Jazz Rodas DO, DO, Comments: lot [id number] exp 10/08/16- R arm Jazz INTENSIVE BEHAVIORAL THERAPY TO REDUCE On: 12-Dec-2015 Intent CARDIOVASCULAR DISEASE RISK, INDIVIDUAL, TSEO-PS-ENLB, ANNUAL, 15 MINUTES (G0446)By: Jazz Rodas DO Irvin DOJazz JTQS-LE-YMHP BEHAVIORAL COUNSELING FOR On: 12-Dec-2015 Intent OBESITY, 15 MINUTES (G0447)By: Jazz Rodas DO Irvin DO Jazz B 12 Injection, 1000 mcg ([id number])By: On: 26-Nov-2015 Intent Irvin DOIvoryJazz Irvin DO, Comments: B12lot:[id number]:ite:lt deltroute:IMdose:1mlD.Cleo PRECIOUS Jazz B 12 Injection, 1000 mcg (J3420)By: On: 22-Oct-2015 Intent Irvin DO, Jazz Irvin DO, Comments: lot: [id number]: ite/route: L del/IMamt: 1mLVIS signed when applicableDUONG Desai Jazz CT - Brain/Head (Without Contrast)By: On: 25-Sep-2015 Intent Jazz Rodas DO DOJazz US DOPPLER CAROTID BILATERAL On: 25-Sep-2015 Intent ([id number])By: Jazz Rodas DO DOJazz Cartoid DopplerBy: Jazz Rodas DO On: 30-Jul-2015 Intent Jazz Rodas DO Flu Vaccine (Quadrivalent) [id number]: On: 15-Jan-2015 Intent Jazz Rodas DO Irvin DO, Comments: Lot:[id number]:10/09/15Dose:0.5mLRoute:IMSite:L DltdGiven By:YVETTE signed Jazz EKG ([id number])By: Jazz Rodas DO On: 13-Jun-2014 Intent Jazz Rodas DO AOQI-UE-GSUJ BEHAVIORAL COUNSELING FOR On: 06-Mar-2014 Intent OBESITY, 15 MINUTES (G0447)By: Jazz Rodas DO, DO, Kathleen Prevnar 13 ([id number])By: Irvin LAURA, On: 06-Mar-2014 Intent Jazz Rodas DO Jazz Comments: lot [id number] 06/2015location L armroute imgiven by - krystleVIS and/or ABN signed Cartoid DopplerBy: Rupinder Encarnacion DO On: 15-Jan-2014 Intent FLU VAC, SPLIT, >3 YEARS, INTRAMUSC On: 15-Jan-2014 Intent ([id number])By: Rupinder Encarnacion DO Comments: Lot #:[id number] date:12/2015Amount given:0.5mlRoute: IMSite given: left deltoidGiven by: PRECIOUS Serna ADMINISTRATION OF INFLUENZA VIRUS On: 15-Jan-2014 Intent VACCINE (G0008)By: Rupinder Encarnacion DO FLU VAC, SPLIT, >3 YEARS, INTRAMUSC On: 13-Feb-2013 Intent ([id number])By: Rupinder Encarnacion DO Comments: Lot:[id number]:Dose:0.5mLRoute:IMSite:L DltdGiven By:YVETTE bal IMMUNIZ ADMNIN, 1 VAC, SNGL/COMBO On: 13-Feb-2013 Intent ([id number])By: Perla Ruano IMMUNIZ ADMNIN, 1 VAC, SNGL/COMBO On: 08-Feb-2012 Intent ([id number])By: Chanel Alamo CNP FLU VAC, SPLIT, >3 YEARS, INTRAMUSC On: 08-Feb-2012 Intent ([id number])By: Chanel Alamo CNP DANA (Ankle Brachial Index) ([id number])By: On: 14-Jul-2011 Intent Nieves Masters Comments: at DF desk Spirometry ([id number])By: Kael PERERA, On: 01-Jul-2011 Intent Ling Roberts Aerosol Treatment ([id number])By: Kael On: 01-Jul-2011 Intent Ling PERERA EKG ([id number])By: Ling Scruggs MD On: 01-Jul-2011 Intent DANA (Ankle Brachial Index) ([id number])By: On: 21-May-2011 Intent Rupinder Encarnacion DO Cartoid DopplerBy: Rupinder Encarnacion DO On: 21-May-2011 Intent Comments: may FLU VAC, SPLIT, >3 YEARS, INTRAMUSC On: 10-Feb-2011 Intent ([id number])By: Marlys Valencia RN Comments: Lot #: [id number] date: 09/20Amount given: 0.5 mlRoute: IMSite given: left deltoidGiven by: TORITO Gonzales IMMUNIZ ADMNIN, 1 VAC, SNGL/COMBO On: 10-Feb-2011 Intent ([id number])By: Marlys Valencia RN Eprescribed prescriptions ([id number])By: On: 24-Nov-2010 Intent Fast DO, Rupinder A Echo CompleteBy: Mera Mullen LPN On: 04-Aug-2010 Intent Pulse Oximetry ([id number])By: Fast DO, On: 24-Jul-2010 Intent Rupinder A Comments: 96 Bio Z ([id number])By: Fast DO, Rupinder A On: 24-Jul-2010 Intent Comments: good cardiac output and svr- thoracic fluid ok EKG ([id number])By: Fast DO, Rupinder A On: 24-Jul-2010 Intent Comments: ekg showed normal sinus rhythym, normal axis, no acute st/t wave changes Echo CompleteBy: Fast DO, Rupinder A On: 24-Jul-2010 Intent DANA (Ankle Brachial Index) ([id number])By: On: 24-Jul-2010 Intent Fast DO, Rupinder A Cartoid DopplerBy: Fast DO, Rupinder A On: 24-Jul-2010 Intent Radiology - Chest- PA and LatBy: Fast On: 24-Jul-2010 Intent DO, Rupinder A Radiology - Chest- PA and LatBy: On: 09-Jul-2010 Intent Irvin DO, Jazz Irvin DO, Jazz Ultrasound - RenalBy: Irvin DO, On: 14-May-2010 Intent Jazz Irvin DO, Jazz Cartoid DopplerBy: Fast DO, Rupinder A On: 25-Mar-2010 Intent DANA (Ankle Brachial Index) ([id number])By: On: 25-Mar-2010 Intent Fast DO, Rupinder A IMMUNIZ ADMNIN, 1 VAC, SNGL/COMBO On: 15-Jan-2010 Intent ([id number])By: Marlys Valencia RN Comments: Lot #: [id number] date: mount given: 0.5 mlRoute: IMSite given: left deltoidGiven by: Valeriano Green RN FLU VACCINE NO PRESERV 3 & > On: 15-Jan-2010 Intent ([id number])By: Marlys Valencia RN Cartoid DopplerBy: Fast DO, Rupinder A On: 26-Nov-2009 Intent Comments: sept TDAP VACCINE >7 IM ([id number])By: Paz On: 22-Sep-2009 Intent Mera ANIDU Comments: Lot #[id number]-3/24/12Site-left deltoidgiven by:[facility] Holter Monitor 24 hrsBy: Walker LOU, On: 21-Apr-2009 Intent Chanel Hickey ELECTROCARDIOGRAM, COMPLETE (ECG) On: 21-Apr-2009 Intent ([id number])By: Chanel Alamo CNP FLU VAC, SPLIT, >3 YEARS, INTRAMUSC On: 07-Jan-2009 Intent ([id number])By: Emili Mullins Comments: Lot #:[id number] date:mount given:0.5mlRoute: IMSite given:left deltGiven by: PRECIOUS Serna IMMUNIZ ADMNIN, 1 VAC, SNGL/COMBO On: 07-Jan-2009 Intent ([id number])By: Emili Mullins DANA (Ankle Brachial Index) ([id number])By: On: 25-Nov-2008 Intent Uma Altamirano Comments: done>Wf. pt aware. normal findings on both sides. DANA (Ankle Brachial Index) ([id number])By: On: 01-Oct-2008 Intent Rupinder Encarnacion DO Cartoid DopplerBy: Rupinder Encarnacion DO On: 01-Oct-2008 Intent Comments: dec Pulse Oximetry ([id number])By: Walker LOU, On: 03-Jul-2008 Intent Chanel Hickey Comments: done BC Aerosol Treatment ([id number])By: Walker On: 03-Jul-2008 Intent Chanel LOU Comments: done BC FLU VAC, SPLIT, >3 YEARS, INTRAMUSC On: 15-Mar-2008 Intent ([id number])By: Alicia Allen ADMINISTRATION OF INFLUENZA VIRUS On: 15-Mar-2008 Intent VACCINE (G0008)By: Alicia Allen Comments: inj given no complicationslot:[id number]:10/08/08site left deltoddose:0.5mlkathryn EKG (08513)By: Rupinder Encarnacion DO On: 27-Dec-2007 Intent Comments: ekg- with sinus with lvh - left axisd deviation Cartoid DopplerBy: Rupinder Encarnacion DO On: 27-Dec-2007 Intent DANA (Ankle Brachial Index) ([id number])By: On: 23-Aug-2007 Intent Xiao Busby DANA (Ankle Brachial Index) ([id number])By: On: 08-Aug-2007 Intent Rupinder Encarnacion DO DANA (Ankle Brachial Index) ([id number])By: On: 02-May-2007 Intent Rupinder Encarnacion DO Flu Vaccine, Split IM ([id number])By: Blanco On: 24-Jan-2007 Intent Rupinder LAURA Comments: given o.5cc im in right deltoid lot#[id number] exp.10/09/07-aw Pneumovax ([id number])By: Rupinder Encarnacion DO On: 24-Jan-2007 Intent Comments: given 0.5cc in right deltoid lot#[id number] exp. 02/20/08-aw Overnight Pulse Ox([id number])By: Xiao Busby On: 21-Dec-2006 Intent Echo CompleteBy: Rupinder Encarnacion DO On: 06-Dec-2006 Intent Overnight Pulse OX ([id number])By: Blanco LAURA, On: 06-Dec-2006 Intent Rupinder Bal EKG ([id number])By: Rebekah Stuart LPN On: 23-Jun-2006 Intent Comments: needed to be done for a preop which is scheduled the end of the month with dr. romero DANA (Ankle Brachial Index) ([id number])By: On: 15-Jun-2006 Intent Milady Jay LPN DANA (Ankle Brachial Index) ([id number])By: On: 01-Jun-2006 Intent Rupinder Encarnacion DO Comments: see Mila- these needs precerted as the insurance didnt pay last time- I discussed with her DANA (Ankle Brachial Index) ([id number])By: On: 01-Mar-2006 Intent Rupinder Encarnacion DO Planned Medications Vitamin B-12 [...] Patient Instructions Indication: Impaired fasting glucose Encounters Phone Encounter On: 09-Jan-2018 17:09 Encounter Diagnosis: [...] The patient does have durable power of secondary school teacher and living will. The patient has noticed dropping activities and interests, having problems with memory than others, la ck of energy and thinking most people are better off than them. 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 care are residential collections and title curator.Encounter Diagnosis: BMI 38.0-38.9,adult, Nonsmoker, Annual Medicare Physical [...] patient does not have durable power of secondary school teacher. The patient has noticed lack of energy and thinking most people are better off than them. 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 care are residential collections and other:.Encounter Diagnosis: Annual Medicare Phyiscal WITHOUT [...] in bathroom. [facility]: PSA testing (2013) and colonoscopy (2009). 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 The patient has noticed thinking most people are better off than t hem. 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 care are residential collections (DR. Maria) and other: (Pain Management- Dr. [...] a day for 2 weeks- and the residential collections didnt feel he needed to increase meds - just saw them in dec and heart doing well-he sees thuan for pain manaagement and hegives him fenta az for back pain working well- had shingle [...] back. Pt is seeing Dr. Blake in [place] for this and currently getting injections and [...] bp is good and abis are good- susan powell overwhelmed- he is willing to retry rachid [...]
--- OUTSIDE RECORDS SUMMARY | 2018-07-01 19:24 | XMS RPT_ITS ---
:1950 Author Organization OHIP Support Name Relationship Address Phone R Unavailable Unavailable Unavailable MEGGAN DEUTSCH Unavailable [address] + [place] [address] JACKSON[place] GAP, MOSES Unavailable [address] + [place] [address] R Unavailable Unavailable Unavailable MEGGAN DEUTSCH Unavailable [address] + [place] [address] [facility] Unavailable [address] + [place] [address] R Unavailable Unavailable Unavailable MEGGAN DEUTSCH Unavailable [address] + [place] [address] JACKSON[place] GAP, MOSES Unavailable [address] + [place] [address] R Unavailable Unavailable Unavailable MEGGAN DEUTSCH Unavailable [address] + [place] [address] JACKSON[place] G[employer], MOSES Unavailable [address] + [place] [address] R Unavailable Unavailable Unavailable MEGGAN DEUTSCH Unavailable [address] + [place] [address] [facility] Unavailable [address] + [place] [address] R Unavailable Unavailable Unavailable MEGGAN DEUTSCH Unavailable [address] + [place] [address] [facility] Unavailable [address] + [place] [address] R Unavailable Unavailable Unavailable MEGGAN DEUTSCH Unavailable [address] + [place] [address] J[employer]SON[place] G[employer], MOSES Unavailable [address] + [place] [address] R Unavailable Unavailable Unavailable MEGGAN DEUTSCH Unavailable [address] + [place] [address] J[place] [employer], MOSES Unavailable [address] + [place] [address] R Unavailable Unavailable Unavailable MEGGAN DEUTSCH Unavailable [address] + [place] [address] [employer] [employer], MOSES Unavailable [address] + [place] [address] R Unavailable Unavailable Unavailable MEGGAN DEUTSCH Unavailable [address] + [place] [address] [employer] G[employer], MOSES Unavailable [address] + [place] [address] R Unavailable Unavailable Unavailable MEGGAN DEUTSCH Unavailable [address] + [place] [address] J[place]SON[place] G[employer], MOSES Unavailable [address] + [place] [address] R Unavailable Unavailable Unavailable MEGGAN DEUTSCH Unavailable [address] + [place] [address] [employer] [employer], MOSES Unavailable [address] + [place] [address] R Unavailable Unavailable Unavailable MEGGAN DEUTSCH Unavailable [address] + [place] [address] [employer] [employer], MOSES Unavailable [address] + [place] [address] R Unavailable Unavailable Unavailable MEGGAN DEUTSCH Unavailable [address] + [place] [address] J[place] [employer], MOSES Unavailable [address] + [place] [address] R Unavailable Unavailable Unavailable MEGGAN DEUTSCH Unavailable [address] + [place] [address] [employer] [employer], MOSES Unavailable [address] + [place] [address] R Unavailable Unavailable Unavailable MEGGAN DEUTSCH Unavailable [address] + [place] [address] J[place] [employer], MOSES Unavailable [address] + [place] [address] R Unavailable Unavailable Unavailable MEGGAN DEUTSCH Unavailable [address] + [place] [address] MOSES DEUTSCH Unavailable [address] [facility] + [place] [address] Care Team Providers Name Role Phone Clark DO, Jazz Attending Unavailable Clark DO, Jazz Referring Unavailable Clark DO, Jazz Consulting Unavailable GOLIAS, PATRICK (PT) Attending Unavailable DIULUS, INGRID A Referring Unavailable GOLIAS, PATRICK (PT) Attending Unavailable DIULUS, INGRID A Referring Unavailable DIULUS, INGRID A Referring Unavailable DIULUS, INGRID A Referring Unavailable GOLIAS, PATRICK (PT) Attending Unavailable DIULUS, INGRID A Referring Unavailable GOLIAS, PATRICK (PT) Attending Unavailable DIULUS, INGRID A Referring Unavailable DIULUS, INGRID A Referring Unavailable GOLIAS, PATRICK (PT) Attending Unavailable DIULUS, INGRID A Referring Unavailable GOLIAS, PATRICK (PT) Attending Unavailable DIULUS, INGRID A Referring Unavailable Clark, Jazz Attending Unavailable Clark, Jazz Referring Unavailable Clark, Jazz Primary Care Unavailable Clark, Jazz Attending Unavailable Clark, Jazz Primary Care Unavailable Clrak, Jazz Attending Unavailable Clark, Jazz Referring Unavailable Clark, Jazz Primary Care Unavailable Crow, Babatunde Attending Unavailable Crow, Babatunde Referring Unavailable Clark, Jazz Primary Care Unavailable Prebish Brooklynn PATROL JUDGE-C Attending Unavailable Prebish, Brooklynn PATROL JUDGE-C Referring Unavailable Clark, Jazz Primary Care Unavailable Jack Collins Consulting Unavailable Crow, Avalon Attending Unavailable Clark, Jazz Referring Unavailable Clark, Jazz Primary Care Unavailable Crow, Babatunde Attending Unavailable Crow, Avalon Referring Unavailable Clark, Jazz Primary Care Unavailable Kaiser Awan Attending Unavailable Crow, Avalon Referring Unavailable Clark, Jazz Primary Care Unavailable Luis, Alhaji Admitting Unavailable Bri, Jayaprakash Consulting Unavailable Ravinder Carter Attending Unavailable Luis, Alhaji Admitting Unavailable Luis, Alhaji Attending Unavailable Clark, Jazz Primary Care Unavailable Luis, Alhaji Consulting Unavailable Luis, Alhaji Admitting Unavailable Ravinder Carter Attending Unavailable Clark, Jazz Primary Care Unavailable Bri, Jayaprakash Consulting Unavailable KittoRavinder ho Consulting Unavailable Luis, Alhaji Admitting Unavailable Ravinder Carter Attending Unavailable Clark, Jazz Primary Care Unavailable Bri, Jayaprakash Consulting Unavailable Ravinder Carter Consulting Unavailable Crow, Avalon Attending Unavailable Clark, Jazz Referring Unavailable Diulus, Ingrid A Attending Unavailable Diulus, Ingrid A Referring Unavailable Clark, Jazz Primary Care Unavailable Hyun Iglesias Attending Unavailable Clark, Jazz Referring Unavailable Hyun Iglesias Attending Unavailable Clark, Jazz Primary Care Unavailable Crow, Avalon Attending Unavailable Luis, Alhaji Referring Unavailable PROBLEMS PROBLEMS DATE TYPE CONDITION / CODE ATTENDING STATUS SOURCE Unknown E83.41 - Hypermagnesemia Clark, Active [place] / E83.41(ICD-10) [facility] Repository Unknown E53.8 - Deficiency of Clark, Active [place] other specified B group [facility] vitamins / E53.8(ICD-10) Hospital Repository Unknown I48.91 - Unspecified Clark, Active [place] atrial fibrillation / [facility] I48.91(ICD-10) Hospital Repository Unknown E55.9 - Vitamin D Clark, Active [place] deficiency, unspecified / [facility] E55.9(ICD-10) Hospital Repository Unknown Z12.5 - Encounter for Clark, Active [place] 9 screening for malignant [facility] neoplasm of prostate / Hospital Z12.5(ICD-10) Repository Unknown R73.01 - Impaired fasting Clark, Active [place] glucose / R73.01(ICD-10) [facility] Hospital Repository Unknown I25.10 - Atherosclerotic Harris Active [place] 8 heart disease of [place] [facility] coronary artery without Hospital angina pectoris / Repository I25.10(ICD-10) Unknown I65.22 - Occlusion and Harris, Active [place] 8 stenosis of left carotid [facility] artery / I65.22(ICD-10) Hospital Repository Unknown I10 - Essential (primary) Harris, Active [place] hypertension / [facility] I10(ICD-10) Hospital Repository Unknown E78.5 - Hyperlipidemia, Harris, Active [place] unspecified / [facility] E78.5(ICD-10) Hospital Repository Unknown I25.810 - Atherosclerosis Harris, Active [place] 8 of coronary artery bypass [facility] graft(s) without angina Hospital pectoris / Repository I25.810(ICD-10) Unknown N28.9 - Disorder of Harris, Active [place] 8 kidney and ureter, [facility] unspecified / Hospital N28.9(ICD-10) Repository Unknown E78.00 - Pure Harris, Active [place] hypercholesterolemia, [facility] unspecified / Hospital E78.00(ICD-10) Repository Unknown E78.0 - Pure Harris, Active [place] hypercholesterolemia / [facility] E78.0(ICD-10) Hospital Repository Unknown I73.9 - Peripheral Harris, Active [place] 8 vascular disease, [facility] unspecified / Hospital I73.9(ICD-10) Repository Unknown I48.92 - Unspecified Harris, Active [place] 8 atrial flutter / [facility] I48.92(ICD-10) Hospital Repository Unknown 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 / Hospital E74.39(ICD-10) Repository Unknown R94.31 - Abnormal Crow, Babatunde Active [place] 8 electrocardiogram [ECG] Community [EKG] / R94.31(ICD-10) Hospital Repository Unknown I48.0 - Paroxysmal atrial Crow, Avalon Active [place] [facility] fibrillation / Community I48.0(ICD-10) Hospital Repository Unknown I65.23 - Occlusion and [place] Kaiser Active [place] 8 stenosis of bilateral [facility] carotid arteries / Hospital I65.23(ICD-10) Repository Unknown M48.061 - Spinal Prebish, Brooklynn Active [place] 8 stenosis, lumbar region PATROL JUDGE-C Community without neurogenic Hospital claudication / Repository M48.061(ICD-10) Unknown M51.36 - Other Prebish, Brooklynn Active [place] 8 intervertebral disc PATROL JUDGE-C Community degeneration, lumbar Hospital region / M51.36(ICD-10) Repository Unknown I11.9 - Hypertensive Clark, Active [place] 8 heart disease without Jazz Community heart failure / Hospital I11.9(ICD-10) Repository PROCEDURES PROCEDURES No Procedure Records FoundRESULTS RESULTS PROGRESS Observed: 05/03/2018 Status: COMPLETED Source: [place] 2:02 PM [facility] [place] REPOSITORY HNO ID: [id number] Author: Patrick (Pt) Rivera Service: (none) Author Type: Physical Therapist Type: Progress Notes Filed: 05/03/2018 2:04 PM Note Text: Episode Visit Count: 9 Therapist That Will Oversee The Plan Of Care: Patrick Stafford PT Start of Care Date: 04/07/18 Onset Date: 04/07/15 Plan of Care Certification Date: 04/07/18 Patient Identified by Name and Date of : Yes REHABILITATION AND SPORTS THERAPY PHYSICAL THERAPY DISCONTINUANCE OF CARE PLAN OF CARE UPDATE: Assessment: Alfred Deutsch is discontinued from Physical Therapy services due to goal achievement and maximal benefit. and Patient/Client declining further intervention.. Patient was seen for 9 visits from Start of Care Date: 04/07/18 to 05/03/2018 and treatment included: Therapeutic exercise, Patient/Family/Caregiver Education and Body mechanics training. Pt has met all goals, denies any pain and denies any functional limitations. Updated: 05/03/18 Goals for Episode of Care: created on 04/07/18 through 05/12/18 Independent in home exercises. - met Patient will decrease pain to 0/10 at rest and with functional activities to allow patient to improve ambulation, transfers and bending/lifting. - met Restore pain-free lumbar ROM to WFL to allow for improved tolerance with bending, lifting and walking. - met Stand / Walk without limitations, without pain/symptoms. - met Patient will be able to tolerate bending, lifting and walking without increased symptoms. - met Patient will increase strength of core/postural muscles to WFL to allow for return to prior functional status and perform ADLs. - met Patient will increase flexibility of B hamstrings to -20 degrees to improve ability to maintain proper posture, restore normal mechanics and decrease pain. - met Patient will improve his/her AM-PAC T-scale score by 4 points to indicate a Minimal Clinical Important Difference. - met, score improved from 56.93 to 63.7 SUBJECTIVE: Pt reports that he is still doing very well. He reports that he is still pain-free and he denies any functional limitations. He reports that he uses good body mechanics and lifting technique because he is unable to lift things from the floor if he attempts to lift with bad body mechanics. He denies any limitations with lifting as long as he squats down. He reports compliance with HEP 1x day. He describes his overall status as much improved. He denies any limitations with bending, lifting, standing or walking. He does report compliance with 25# lifting restriction. . Pain Score: 0/10 Pain Location: (no pain) Description: (no pain) Frequency: Intermittent Post Treatment Pain Score: No Change Pain Location: (no pain) Post Treatment Pain Description: (fatigue but no increase in pain) OBJECTIVE MEASURES WITH LEVEL OF FUNCTION: Lumbar Spine AROM Lumbar Flexion: Normal Lumbar Extension: Normal Lumbar R Side-Bend: Normal Lumbar L Side-Bend: Normal Lumbar R Rotation: Normal Lumbar L Rotation: Normal LE Flexibility R Hamstring Flexibility: -15 L Hamstring Flexibility: -19 LE Strength Trunk Strength: Increased resulting in improved postural maintenance and functional ability. Gait Gait Observation: No deviations TREATMENT: Therapeutic Exercise: 1: SciFit StepOne seat #11 resistance level 4 x5 minutes. 2: HEP was thoroughly reviewed and continuation encouraged to tolerance. He was urged to call with any future questions or concerns. 5: supine TA with B alt marching 3x15 each leg maintaining pelvic tilt 6: supine crunches in small range 3x15 7: bridging 3x15 in pain-free range with no UE assist and LEs on large physioball. 8: standard planks 3x30 seconds 9: Back extension machine 120# 3x10 11: Stir the pot 2 plates plus 2 round 2x15 cw and ccw facing each direction. 12: seated on ball at Hoist emphasis on posture scapular retraction 4 plates 3x10 13: seated on ball at Hoist with emphasis on posture russel overhead pull downs keeping elbows extended 3 plates plus 2 round 3x12 14: seated on physioball with emphasis on posture, purple t-band perturbations R, L and forward 3x15 Skilled Intervention: Patient was educated in proper exercise technique and purpose for exercises. Skilled judgment was provided in selection of appropriate interventions. Correct performance of therapeutic exercises was facilitated with verbal and visual cuing. Billing: [facility]: Therapeutic Exercise ([id number]): 1:1 time: 45 minutes (3 units: 38-52 mins) Total time: 45 minutes Patrick Stafford PT CNTHERAPY Observed: 05/03/2018 Status: COMPLETED Source: [place] 9:00 AM [facility] REPOSITORY OT/PT/Speech Visit (PTWS) ALFRED DEUTSCH ([id number]) 1950 M Date Time Provider Department 05/03/18 9:00 AM PATRICK STAFFORD (PT) PTWS Date Time Provider Department Center 05/03/2018 9:00 AM [id number], BRENT (PT) PTWS [facility] [place] Reason for Visit: PT Discharge [752] Visit Diagnosis:S/P lumbar spinal fusion [Z98.1] Allergies As of Date: 05/03/2018 Noted Allergy Reaction ELAVIL (AMITRIPTYLINE) 10/19/2016 9 - Itching GABAPENTIN 10/19/2016 1 - Mental Status Change Date Reviewed: 10/19/2016 Reviewed by: Aravind Ortiz - Fully Assessed Prescriptions as of 05/03/2018 Sig: ELIQUIS 5 MG TABLET TAKE 1 TABLET BY MOUTH TWICE * ATENOLOL 25 MG TABLET Take 25 mg by mouth once virgil* SERTRALINE 50 MG TABLET Take 25 mg by mouth once virgil* PANTOPRAZOLE 40 MG TABLET,DEL* Take 40 mg by mouth once virgil* CHOLECALCIFEROL (VITAMIN D3) * Take 5,000 Units by mouth onc* MULTI VIT-FLUORIDE ORAL Take by mouth. LISINOPRIL 20 MG TABLET Take 20 mg by mouth once virgil* MODAFINIL 200 MG TABLET Take 200 mg by mouth twice da* ASPIRIN 81 MG TABLET,DELAYED * Take 81 mg by mouth once virgil* FENOFIBRATE 54 MG TABLET Take 54 mg by mouth once virgil* ATORVASTATIN 40 MG TABLET Take 40 mg by mouth once virgil* FUROSEMIDE 40 MG TABLET Take 40 mg by mouth once virgil* Progress Notes: Patrick Stafford PT 05/03/2018 2:04 PM Signed Episode Visit Count: 9 Therapist That Will Oversee The Plan Of Care: Patrick Stafford PT Start of Care Date: 04/07/18 Onset Date: 04/07/15 Plan of Care Certification Date: 04/07/18 Patient Identified by Name and Date of : Yes REHABILITATION AND SPORTS THERAPY PHYSICAL THERAPY DISCONTINUANCE OF CARE PLAN OF CARE UPDATE: Assessment: Alfred Deutsch is discontinued from Physical Therapy services due to goal achievement and maximal benefit. and Patient/Client declining further intervention.. Patient was seen for 9 visits from Start of Care Date: 04/07/18 to 05/03/2018 and treatment included: Therapeutic exercise, Patient/Family/Caregiver Education and Body mechanics training. Pt has met all goals, denies any pain and denies any functional limitations. Updated: 05/03/18 Goals for Episode of Care: created on 04/07/18 through 05/12/18 Independent in home exercises. - met Patient will decrease pain to 0/10 at rest and with functional activities to allow patient to improve ambulation, transfers and bending/lifting. - met Restore pain-free lumbar ROM to WFL to allow for improved tolerance with bending, lifting and walking. - met Stand / Walk without limitations, without pain/symptoms. - met Patient will be able to tolerate bending, lifting and walking without increased symptoms. - met Patient will increase strength of core/postural muscles to WFL to allow for return to prior functional status and perform ADLs. - met Patient will increase flexibility of B hamstrings to -20 degrees to improve ability to maintain proper posture, restore normal mechanics and decrease pain. - met Patient will improve his/her AM-PAC T-scale score by 4 points to indicate a Minimal Clinical Important Difference. - met, score improved from 56.93 to 63.7 SUBJECTIVE: Pt reports that he is still doing very well. He reports that he is still pain-free and he denies any functional limitations. He reports that he uses good body mechanics and lifting technique because he is unable to lift things from the floor if he attempts to lift with bad body mechanics. He denies any limitations with lifting as long as he squats down. He reports compliance with HEP 1x day. He describes his overall status as much improved. He denies any limitations with bending, lifting, standing or walking. He does report compliance with 25# lifting restriction. . Pain Score: 0/10 Pain Location: (no pain) Description: (no pain) Frequency: Intermittent Post Treatment Pain Score: No Change Pain Location: (no pain) Post Treatment Pain Description: (fatigue but no increase in pain) OBJECTIVE MEASURES WITH LEVEL OF FUNCTION: Lumbar Spine AROM Lumbar Flexion: Normal Lumbar Extension: Normal Lumbar R Side-Bend: Normal Lumbar L Side-Bend: Normal Lumbar R Rotation: Normal Lumbar L Rotation: Normal LE Flexibility R Hamstring Flexibility: -15 L Hamstring Flexibility: -19 LE Strength Trunk Strength: Increased resulting in improved postural maintenance and functional ability. Gait Gait Observation: No deviations TREATMENT: Therapeutic Exercise: 1: SciFit StepOne seat #11 resistance level 4 x5 minutes. 2: HEP was thoroughly reviewed and continuation encouraged to tolerance. He was urged to call with any future questions or concerns. 5: supine TA with B alt marching 3x15 each leg maintaining pelvic tilt 6: supine crunches in small range 3x15 7: bridging 3x15 in pain-free range with no UE assist and LEs on large physioball. 8: standard planks 3x30 seconds 9: Back extension machine 120# 3x10 11: Stir the pot 2 plates plus 2 round 2x15 cw and ccw facing each direction. 12: seated on ball at Hoist emphasis on posture scapular retraction 4 plates 3x10 13: seated on ball at Hoist with emphasis on posture russel overhead pull downs keeping elbows extended 3 plates plus 2 round 3x12 14: seated on physioball with emphasis on posture, purple t-band perturbations R, L and forward 3x15 Skilled Intervention: Patient was educated in proper exercise technique and purpose for exercises. Skilled judgment was provided in selection of appropriate interventions. Correct performance of therapeutic exercises was facilitated with verbal and visual cuing. Billing: [facility]: Therapeutic Exercise ([id number]): 1:1 time: 45 minutes (3 units: 38-52 mins) Total time: 45 minutes Patrick Stafford PT PROGRESS Observed: 05/01/2018 Status: COMPLETED Source: [place] 9:03 AM [facility] REPOSITORY HNO ID: [id number] Author: Patrick (Pt) Rivera Service: (none) Author Type: Physical Therapist Type: Progress Notes Filed: 05/01/2018 9:05 AM Note Text: Episode Visit Count: 8 Therapist That Will Oversee The Plan Of Care: Patrick Stafford PT Start of Care Date: 04/07/18 Onset Date: 04/07/15 Plan of Care Certification Date: 04/07/18 Patient Identified by Name and Date of : Yes REHABILITATION AND SPORTS THERAPY PHYSICAL THERAPY TREATMENT NOTE ASSESSMENT: Alfred Ho Marito demonstrated improvements in strength, ROM, exercise tolerance and pain. The patient will continue to benefit from continued skilled physical therapy for supervised progression of therex to facilitate a full return to prior functional level. PLAN FOR NEXT VISIT: continue to progress core stabilization. SUBJECTIVE: Pt reports that overall he feels similar to last visit but that he is still doing very well. 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 He reports compliance with HEP 1x day and denies any pain currently. Pain Score: 0/10 Description: (no pain currently) Frequency: Intermittent Post Treatment Pain Score: No Change Post Treatment Pain Description: (fatigue but no increase in pain) Post Treatment Symptoms: Pt reports a real good workout but no pain. OBJECTIVE MEASURES WITH LEVEL OF FUNCTION: Posture / Alignment Posture: Forward head;Rounded shoulders LE Strength Trunk Strength: Increasing exercise tolerance is an indication of increasing core/postural strength. TREATMENT: Therapeutic Exercise: 1: ZykisFit StepOne seat #11 resistance level 4 x5 minutes. 2: supine LTR 1x15 in pain-free range 3: supine B SKTC x30 seconds 4: supine DKTC x30 seconds 5: supine TA with B alt marching 2x15 each leg maintaining pelvic tilt 6: supine crunches in small range 3x15 7: bridging 3x12 in pain-free range with no UE assist and LEs on large physioball. 8: standard planks 3x30 seconds 9: Back extension machine 110# 3x10 11: Stir the pot 2 plates plus 2 round 2x12 cw and ccw facing each direction. 12: seated on ball at Hoist emphasis on posture scapular retraction 3 plates plus 5 mini 3x15 13: seated on ball at Hoist with emphasis on posture russel overhead pull downs keeping elbows extended 3 plates plus 2 round 3x10 14: seated on physioball with emphasis on posture, blue t-band perturbations R, L and forward 3x15 15: seated on physioball with emphasis on posture, body blade with 2 hand fountain supervisor, blade horizontal with hands at shoulder height 3x30 seconds and 2 hand fountain supervisor blade vertical side to side 3x30 seconds. Skilled Intervention: Patient was educated in proper exercise technique and purpose for exercises. Skilled judgment was provided in selection of appropriate interventions. Correct performance of therapeutic exercises was facilitated with verbal and visual cuing. Billing: [facility]: Therapeutic Exercise ([id number]): 1:1 time: 45 minutes (3 units: 38-52 mins) Total time: 45 minutes Patrick Stafford PT CNTHERAPY Observed: 05/01/2018 Status: COMPLETED Source: [place] 8:15 AM [facility] REPOSITORY OT/PT/Speech Visit (PTWS) ALFRED DEUTSCH ([id number]) 1950 M Date Time Provider Department 05/01/18 8:15 AM PATRICK STAFFORDPT) PTWS Date Time Provider Department Center 05/01/2018 8:15 AM [id number]-[facility]RICK STAFFORDPT) PTWS [facility] [place] Reason for Visit: Physical Therapy [503] Visit Diagnosis:S/P lumbar spinal fusion [Z98.1] Allergies As of Date: 05/01/2018 Noted Allergy Reaction ELAVIL (AMITRIPTYLINE) 10/19/2016 9 - Itching GABAPENTIN 10/19/2016 1 - Mental Status Change Date Reviewed: 10/19/2016 Reviewed by: Aravind Ortiz - Fully Assessed Prescriptions as of 05/01/2018 Sig: ELIQUIS 5 MG TABLET TAKE 1 TABLET BY MOUTH TWICE * ATENOLOL 25 MG TABLET Take 25 mg by mouth once virgil* SERTRALINE 50 MG TABLET Take 25 mg by mouth once virgil* PANTOPRAZOLE 40 MG TABLET,DEL* Take 40 mg by mouth once virgil* CHOLECALCIFEROL (VITAMIN D3) * Take 5,000 Units by mouth onc* MULTI VIT-FLUORIDE ORAL Take by mouth. LISINOPRIL 20 MG TABLET Take 20 mg by mouth once virgil* MODAFINIL 200 MG TABLET Take 200 mg by mouth twice da* ASPIRIN 81 MG TABLET,DELAYED * Take 81 mg by mouth once virgil* FENOFIBRATE 54 MG TABLET Take 54 mg by mouth once virgil* ATORVASTATIN 40 MG TABLET Take 40 mg by mouth once virgil* FUROSEMIDE 40 MG TABLET Take 40 mg by mouth once virgil* Progress Notes: Patrick Stafford PT 05/01/2018 9:05 AM Signed Episode Visit Count: 8 Therapist That Will Oversee The Plan Of Care: Patrick Stafford PT Start of Care Date: 04/07/18 Onset Date: 04/07/15 Plan of Care Certification Date: 04/07/18 Patient Identified by Name and Date of : Yes REHABILITATION AND SPORTS THERAPY PHYSICAL THERAPY TREATMENT NOTE ASSESSMENT: Alfred Ruperto Deutsch demonstrated improvements in strength, ROM, exercise tolerance and pain. The patient will continue to benefit from continued skilled physical therapy for supervised progression of therex to facilitate a full return to prior functional level. PLAN FOR NEXT VISIT: continue to progress core stabilization. SUBJECTIVE: Pt reports that overall he feels similar to last visit but that he is still doing very well. 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 He reports compliance with HEP 1x day and denies any pain currently. Pain Score: 0/10 Description: (no pain currently) Frequency: Intermittent Post Treatment Pain Score: No Change Post Treatment Pain Description: (fatigue but no increase in pain) Post Treatment Symptoms: Pt reports a real good workout but no pain. OBJECTIVE MEASURES WITH LEVEL OF FUNCTION: Posture / Alignment Posture: Forward head;Rounded shoulders LE Strength Trunk Strength: Increasing exercise tolerance is an indication of increasing core/postural strength. TREATMENT: Therapeutic Exercise: 1: SciFit StepOne seat #11 resistance level 4 x5 minutes. 2: supine LTR 1x15 in pain-free range 3: supine B SKTC x30 seconds 4: supine DKTC x30 seconds 5: supine TA with B alt marching 2x15 each leg maintaining pelvic tilt 6: supine crunches in small range 3x15 7: bridging 3x12 in pain-free range with no UE assist and LEs on large physioball. 8: standard planks 3x30 seconds 9: Back extension machine 110# 3x10 11: Stir the pot 2 plates plus 2 round 2x12 cw and ccw facing each direction. 12: seated on ball at Hoist emphasis on posture scapular retraction 3 plates plus 5 mini 3x15 13: seated on ball at Hoist with emphasis on posture russel overhead pull downs keeping elbows extended 3 plates plus 2 round 3x10 14: seated on physioball with emphasis on posture, blue t- band perturbations R, L and forward 3x15 15: seated on physioball with emphasis on posture, body blade with 2 hand fountain supervisor, blade horizontal with hands at shoulder height 3x30 seconds and 2 hand fountain supervisor blade vertical side to side 3x30 seconds. Skilled Intervention: Patient was educated in proper exercise technique and purpose for exercises. Skilled judgment was provided in selection of appropriate interventions. Correct performance of therapeutic exercises was facilitated with verbal and visual cuing. Billing: [facility]: Therapeutic Exercise ([id number]): 1:1 time: 45 minutes (3 units: 38-52 mins) Total time: 45 minutes Patrick Stafford PT PROGRESS Observed: 04/28/2018 Status: COMPLETED Source: [place] 9:06 AM [facility] REPOSITORY O ID: [id number] Author: Patrick Stafford Service: (none) Author Type: Physical Therapist Type: Progress Notes Filed: 04/28/2018 11:16 AM Note Text: Episode Visit Count: 7 Therapist That Will Oversee The Plan Of Care: Patrick Golias, PT Start of Care Date: 04/07/18 Onset Date: 04/07/15 Plan of Care Certification Date: 04/07/18 Patient Identified by Name and Date of : Yes REHABILITATION AND SPORTS THERAPY PHYSICAL THERAPY TREATMENT NOTE ASSESSMENT: Alfred Deutsch demonstrated improvements in performing functional work tasks at home with no increase pain in back. Patient is pleased with progress. He noted fatigue in muscles of abdomen following treatment today. Excellent follow through with [facility]. The patient will continue to benefit from continued skilled physical therapy for progression of core strength. PLAN FOR NEXT VISIT: continue to progress core stabilization. SUBJECTIVE: Patient reports he is feeling good. He reports being very active yesterday getting ready for the snow storm and notes shoulder soreness only, Pain Score: 0/10 Frequency: Intermittent Post Treatment Pain Score: No Change OBJECTIVE MEASURES WITH LEVEL OF FUNCTION: Upright seated posture observed with all seated exercises today. TREATMENT: Therapeutic Exercise: 1: SciFit StepOne seat #11 resistance level 4 x5 minutes. 2: supine LTR 1x15 in pain-free range 3: supine B SKTC 3x30 seconds 4: supine DKTC 3x30 seconds 5: supine TA with B alt marching 2x15 each leg maintaining pelvic tilt 6: supine crunches in small range 3x15 7: bridging 3x12 in pain-free range with no UE assist and LEs on large physioball. 8: standard planks 2x30 seconds and 3rd set modified plank x 30 seconds. 9: Back extension machine 100# 3x12 11: Stir the pot 2 plates plus 2 round 2x12 cw and ccw facing each direction. 12: seatedl at Hoist emphasis on posture scapular retraction 3 plates plus 5 mini 3x12 13: seated on ball at Hoist with emphasis on posture russel overhead pull downs keeping elbows extended 3 plates 3x12 14: seated on physioball with emphasis on posture, blue t-band perturbations R, L and forward 3x15 15: seated on physioball with emphasis on posture, body blade with 2 hand fountain supervisor, blade horizontal with hands at shoulder height 3x30 seconds and 2 hand fountain supervisor blade vertical side to side 2x30 seconds. Skilled Intervention: Patient was educated in proper exercise technique and purpose for exercises. Skilled judgment was provided in selection of appropriate interventions. Correct performance of therapeutic exercises was facilitated with verbal cuing. Billing: [facility]: Therapeutic Exercise ([id number]): 1:1 time: 43 minutes (3 units: 38-52 mins) Total time: 43 minutes LILA Powell PT CNTHERAPY Observed: 04/28/2018 Status: COMPLETED Source: [place] 7:45 AM [facility] REPOSITORY OT/PT/Speech Visit (PTWS) ALFRED DEUTSCH ([id number]) 1950 M Date Time Provider Department 04/28/18 7:45 AM KELLI GARNETT ([facility]AN) PTWS Date Time Provider Department Center 04/28/2018 7:45 AM [id number], NANCY ([place]) PTWS [facility] [place] Reason for Visit: Physical Therapy [503] Visit Diagnosis:S/P lumbar spinal fusion [Z98.1] Allergies As of Date: 04/28/2018 Noted Allergy Reaction ELAVIL (AMITRIPTYLINE) 10/19/2016 9 - Itching GABAPENTIN 10/19/2016 1 - Mental Status Change Date Reviewed: 10/19/2016 Reviewed by: Aravind Ortiz - Fully Assessed Prescriptions as of 04/28/2018 Sig: ELIQUIS 5 MG TABLET TAKE 1 TABLET BY MOUTH TWICE * ATENOLOL 25 MG TABLET Take 25 mg by mouth once virgil* SERTRALINE 50 MG TABLET Take 25 mg by mouth once virgil* PANTOPRAZOLE 40 MG TABLET,DEL* Take 40 mg by mouth once virgil* CHOLECALCIFEROL (VITAMIN D3) * Take 5,000 Units by mouth onc* MULTI VIT-FLUORIDE ORAL Take by mouth. LISINOPRIL 20 MG TABLET Take 20 mg by mouth once virgil* MODAFINIL 200 MG TABLET Take 200 mg by mouth twice da* ASPIRIN 81 MG TABLET,DELAYED * Take 81 mg by mouth once virgil* FENOFIBRATE 54 MG TABLET Take 54 mg by mouth once virgil* ATORVASTATIN 40 MG TABLET Take 40 mg by mouth once virgil* FUROSEMIDE 40 MG TABLET Take 40 mg by mouth once virgil* Progress Notes: Patrick Stafford PT 04/28/2018 11:16 AM Signed Episode Visit Count: 7 Therapist That Will Oversee The Plan Of Care: Patrick Stafford PT Start of Care Date: 04/07/18 Onset Date: 04/07/15 Plan of Care Certification Date: 04/07/18 Patient Identified by Name and Date of : Yes REHABILITATION AND SPORTS THERAPY PHYSICAL THERAPY TREATMENT NOTE ASSESSMENT: Alfred Deutsch demonstrated improvements in performing functional work tasks at home with no increase pain in back. Patient is pleased with progress. He noted fatigue in muscles of abdomen following treatment today. Excellent follow through with [facility]. The patient will continue to benefit from continued skilled physical therapy for progression of core strength. PLAN FOR NEXT VISIT: continue to progress core stabilization. SUBJECTIVE: Patient reports he is feeling good. He reports being very active yesterday getting ready for the snow storm and notes shoulder soreness only, Pain Score: 0/10 Frequency: Intermittent Post Treatment Pain Score: No Change OBJECTIVE MEASURES WITH LEVEL OF FUNCTION: Upright seated posture observed with all seated exercises today. TREATMENT: Therapeutic Exercise: 1: SciFit StepOne seat #11 resistance level 4 x5 minutes. 2: supine LTR 1x15 in pain-free range 3: supine B SKTC 3x30 seconds 4: supine DKTC 3x30 seconds 5: supine TA with B alt marching 2x15 each leg maintaining pelvic tilt 6: supine crunches in small range 3x15 7: bridging 3x12 in pain-free range with no UE assist and LEs on large physioball. 8: standard planks 2x30 seconds and 3rd set modified plank x 30 seconds. 9: Back extension machine 100# 3x12 11: Stir the pot 2 plates plus 2 round 2x12 cw and ccw facing each direction. 12: seatedl at Hoist emphasis on posture scapular retraction 3 plates plus 5 mini 3x12 13: seated on ball at Hoist with emphasis on posture russel overhead pull downs keeping elbows extended 3 plates 3x12 14: seated on physioball with emphasis on posture, blue t- band perturbations R, L and forward 3x15 15: seated on physioball with emphasis on posture, body blade with 2 hand fountain supervisor, blade horizontal with hands at shoulder height 3x30 seconds and 2 hand fountain supervisor blade vertical side to side 2x30 seconds. Skilled Intervention: Patient was educated in proper exercise technique and purpose for exercises. Skilled judgment was provided in selection of appropriate interventions. Correct performance of therapeutic exercises was facilitated with verbal cuing. Billing: [facility]: Therapeutic Exercise ([id number]): 1:1 time: 43 minutes (3 units: 38-52 mins) Total time: 43 minutes Kelli Garnett, PT-Valeriano Stafford, PT Previous Version Follow-up and Disposition History Recorded CBC W/DIFF, AUTOMATED Collected: 04/27/2018 Status: F Source: [place] 6:46 AM [facility] [place] TYPE CODE TESTS RESULT OUT OF RANGE REFERENCE UNITS LAB L100.1000 4.4-11.0 K/mm3 Low WBC 4.0 LAB L100.1200 4.6-6.2 M/mm3 Low RBC 4.25 LAB L100.1300 13.0-16.5 g/dl Normal HGB 14.2 LAB L100.1400 40-54 % Normal HCT 44.3 LAB L100.1500 80-94 fL High MCV 104.2 LAB L100.1600 27.0-32.0 pg High MCH 33.4 LAB L100.1700 32-36 g/gl Normal MCHC 32.1 LAB L100.1810 11.6-14.6 % High RDW CV 16.0 LAB L100.1820 35.1-43.9 fl High RDW SD 60.5 LAB L100.1900 150-450 K/mm3 Low PLT 140 LAB L100.2000 6.2-12.0 fl Normal MPV 9.3 LAB L100.2100 47-70 % Normal NEUT% 56.1 LAB L100.2200 19-41 % Normal LY% 30.8 LAB L100.2300 0-10 % Normal MONO% 8.2 LAB L100.2400 0-5 % Normal EO% 4.5 LAB L100.2500 0-1 % Normal BASO% 0.2 LAB L100.2550 0.0-0.9 % Normal IM GRAN % 0.200 Result Comment: IG% - Immature Granulocytes (promyelocytes, myelocytes and metamyelocytes) > 1% indicates that a LEFT SHIFT is Present. LAB L100.2620 2.0-7.7 X10 3/uL Normal Absolute Neut 2.3 LAB L100.2720 0.83-4.51 X10 3/ul Normal Absolute Lymph 1.24 Performed By: #### L100.0100 #### [facility] [address] [place], [place], [address] URINALYSIS, COMPLETE Collected: 04/27/2018 Status: F Source: [place] 6:46 AM [facility] [place] Order Comment: How was Urine Obtained? CLEAN CATCH TYPE CODE TESTS RESULT OUT OF RANGE REFERENCE UNITS LAB L400.3000 Yellow COLOR Normal Yellow LAB L400.3050 Clear Normal CLARITY Clear LAB L400.3200 Normal mg/dl Normal GLUCOSE, UR Normal LAB L400.3300 Negative mg/dL Normal BILIRUBIN URINE Negative LAB L400.3400 Negative mg/dl Normal KETONE UR Negative LAB L400.3465 1.002-1.030 Normal SP.GR. DIPSTX 1.020 LAB L400.3550 5.0 - 8.0 pH UR Normal 6.0 LAB L400.3600 Negative mg/dl PROT Normal DIPSTX Negative LAB L400.3700 Normal mg/dl Normal UROBILI Normal LAB L400.3750 Negative Normal NITRITE UR Negative LAB L400.3780 Negative /ul Normal OCCULT BLOOD-UR Negative LAB L400.3800 Negative /ul LEUK Normal ESTERASE Negative LAB L400.4050 0-5 /hpf WBC 0 Normal SEEN LAB L400.4100 0-5 /hpf 0 Normal RBC-UA SEEN LAB L400.4150 0-5 /hpf SQUAM Normal EPI 0-5 SEEN LAB L400.4300 None Seen /hpf 0 Normal BACTERIA SEEN LAB L400.4350 <or=2+ /hpf 0 Normal MUCUS, URINE SEEN Performed By: #### L400.0001 #### [facility] [address] [place], [place], [address] MICROALB:CREAT Collected: 04/27/2018 Status: F Source: [place] RATIO,RANDOM UR 6:46 AM [facility] [place] TYPE CODE TESTS RESULT OUT OF RANGE REFERENCE UNITS LAB L501.1200 NO RANGE EST. mg/dL Normal UR CREAT 160.00 LAB L502.0500 NO RANGE EST. mg/L Normal 8.7 MICROALBUMIN ,UR LAB L502.0600 <30 mg/g CRE mg/g CRE Normal 5.5 MALB:CREAT Performed By: #### L502.0250 #### [facility] [address] [place], [address] COMPREHENSIVE METABOLIC Collected: 04/27/2018 Status: F Source: [place] PROFIL 6:46 AM [facility] [place] TYPE CODE TESTS RESULT OUT OF RANGE REFERENCE UNITS LAB L501.0100 74-106 mg/dL High GLU 110 Result Comment: Fasting Glucose result from 100 to 125 mg/dL suggests IMPAIRED HOMEOSTASIS per A.D.A. criteria. Please note revised GLUCOSE reference range effective 2017. LAB L501.1000 7-18 mg/dL High BUN 39 LAB L501.1100 0.70-1.30 mg/dL High CREAT,SERUM 1.33 Result Comment: The validity of the calculated GFR AND GFRAA in patients over 70 years has not been determined. Clinical correlation is essential. LAB L501.1110 >60 mL/min Low EST GFR 57 Result Comment: Non- GFR Calc LAB L501.1115 >60 mL/min Normal EST GFR - AA 69 Result Comment: GFR Calc LAB L501.1300 10-20 RATIO High BUN/CRE 29.3 LAB L501.1500 6.4-8.2 g/dL T Normal PROT 7.2 LAB L501.1800 3.2-5.0 g/dL Normal ALB 3.7 LAB L501.1950 2.2-4.2 g/dL Normal GLOB 3.5 LAB L501.2000 0.9-2.4 RATIO Normal A/G 1.1 LAB L501.2200 8.5-10.1 mg/dL CA Normal 9.5 LAB L501.4100 15-37 U/L Normal AST 20 LAB L501.4305 45-117 U/L Normal ALK P 65 LAB L501.4405 16-61 U/L Normal ALT 29 LAB L501.4600 0.20-1.00 mg/dL T Normal BILI 0.40 LAB L501.5300 136-145 mmol/L NA Normal 141 LAB L501.5600 3.5-5.1 mmol/L K Normal 3.6 LAB L501.5900 98-107 mmol/L CL Normal 99 LAB L501.6100 21.0-32.0 mmol/L High CO2 34.0 LAB L501.6200 5-15 Normal GAP 8 Performed By: #### L500.4050, L501.5200, L501.9520, L501.9910 #### [facility] [address] [place], [address] MAGNESIUM Collected: 04/27/2018 Status: F Source: [place] 6:46 AM [facility] [place] TYPE CODE TESTS RESULT OUT OF RANGE REFERENCE UNITS LAB L501.5200 1.6-2.6 mg/dL Normal MG 1.8 Performed By: #### L500.4050, L501.5200, L501.9520, L501.9910 #### [facility] [place], [address] THYROID STIM HORMONE Collected: 04/27/2018 Status: F Source: [place] (TSH) 6:46 AM [facility] [place] TYPE CODE TESTS RESULT OUT OF RANGE REFERENCE UNITS LAB L501.9520 0.358-3.74 uIU/mL Normal TSH 1.66 Performed By: #### L500.4050, L501.5200, L501.9520, L501.9910 #### [facility] [place], [address] PSA,TOTAL - ANNUAL Collected: 04/27/2018 Status: F Source: [place] SCREEN 6:46 AM [facility] [place] TYPE CODE TESTS RESULT OUT OF RANGE REFERENCE UNITS LAB L501.9910 0.00-4.00 ng/mL Normal PSA,TOT 1.02 SCREEN Result Comment: This test was performed using the TPSA assay method for the [employer] chemistry system. Values obtained with different assay methods cannot be used interchangably. When changing PSA assays in the course of monitoring a patient, additional sequential testing should be carried out to confirm baseline values. Performed By: #### L500.4050, L501.5200, L501.9520, L501.9910 #### [facility] [address] [place], [address] VITAMIN B12 Collected: 04/27/2018 Status: F Source: [place] 6:46 AM [facility] [place] TYPE CODE TESTS RESULT OUT OF RANGE REFERENCE UNITS LAB L503.0105 211-911 pg/mL Normal Vitamin B12 409 Performed By: #### L503.0105, L506.1000 #### [facility] [address] [place], [address] VITAMIN D,25 HYDROXY Collected: 04/27/2018 Status: F Source: [place] 6:46 AM [facility] [place] TYPE CODE TESTS RESULT OUT OF RANGE REFERENCE UNITS LAB L506.1000 29.95-100.01 ng/mL Normal Vitamin D 75.4 25-OH Result Comment: Vitamin D 25(OH) Status Range Deficiency <20 ng/mL (50nmol/L) Insuffciency 20 - 30 ng/mL (50 - 75 nmol/L) Sufficiency 30 - 100 ng/mL (75 - 250 nmol/L) Toxicity >100 ng/mL (>250 nmol/L) Performed By: #### L503.0105, L506.1000 #### [facility] [address] [place], [address] NMR LIPOPROFILE Collected: 04/27/2018 Status: F Source: [place] 6:46 AM [facility] [place] TYPE CODE TESTS RESULT OUT OF RANGE REFERENCE UNITS LAB L3500.0050 NMR Normal LIPOPROFILE Result Comment: TEST RESULT LIMITS NMR LipoProfile LDL Particle Number LDL-P 2697 High nmol/L <1000 Low < 1000 Moderate 1000 - 1299 Borderline-High 1300 - 1599 High 1600 - 2000 Very High > 2000 Lipids LDL-C 232 High mg/dL 0 - 99 Optimal < 100 Above optimal 100 - 129 Borderline 130 - 159 High 160 - 189 Very high > 189 Comment: LDL-C is inaccurate if patient is non-fasting. HDL-C 50 mg/dL >39 Triglycerides 263 High mg/dL 0 - 149 Cholesterol, Total 335 High mg/dL 100 - 199 LDL and HDL Particles HDL-P (Total) 35.1 umol/L >=30.5 Small LDL-P 1788 High nmol/L <=527 LDL Size 20.0 Low nm >20.5 INTERPRETATIVE INFORMATION PARTICLE CONCENTRATION AND SIZE <--Lower CVD Risk Higher CVD Risk--> LDL AND HDL PARTICLES Percentile in Reference Population HDL-P (total) High 75th 50th 25th Low >34.9 34.9 30.5 26.7 <26.7 Small LDL-P Low 25th 50th 75th High <117 117 527 839 >839 LDL Size <-Large (Pattern A)-> <-Small (Pattern B)-> 23.0 20.6 20.5 19.0 Comment: Small LDL-P and LDL Size are associated with CVD risk, but not after LDL-P is taken into account. These assays were developed and their performance characteristics determined by [employer]. These assays have not been cleared by the [place] Food and Drug Administration. The clinical utility of these laboratory values have not been fully established. Insulin Resistance Score LP-IR Score 81 High <=45 INSULIN RESISTANCE MARKER <--Insulin Sensitive Insulin Resistant--> Percentile in Reference Population Insulin Resistance Score LP-IR Score Low 25th 50th 75th High <27 27 45 63 >63 Comment: LP-IR Score is inaccurate if patient is non-fasting. The LP-IR score is a laboratory developed index that has been associated with insulin resistance and diabetes risk and should be used as one component of a physician's clinical assessment. The LP-IR score listed above has not been cleared by the [place] Food and Drug Administration. Performed By: #### L3500.0000 #### [facility] (refer to report for specific site) refer to report for address and phone number PROGRESS Observed: 04/26/2018 Status: COMPLETED Source: [place] 10:04 AM [facility] [place] REPOSITORY HNO ID: [id number] Author: Patrick (Pt) Rivera Service: (none) Author Type: Physical Therapist Type: Progress Notes Filed: 04/26/2018 10:07 AM Note Text: Episode Visit Count: 6 Therapist That Will Oversee The Plan Of Care: Patrick Stafford PT Start of Care Date: 04/07/18 Onset Date: 04/07/15 Plan of Care Certification Date: 04/07/18 Patient Identified by Name and Date of : Yes REHABILITATION AND SPORTS THERAPY PHYSICAL THERAPY TREATMENT NOTE ASSESSMENT: Alfred Deutsch demonstrated improvements in strength, flexibility, exercise tolerance, pain management. The patient will continue to benefit from continued skilled physical therapy for supervised progression of therex to facilitate a return to prior functional level. PLAN FOR NEXT VISIT: continue with stretching and strengthening therex post-op lumbar fusion. Continue to progress strengthening to tolerance. Consider porgression of weight with PRE machines. SUBJECTIVE: Pt reports that overall he is still doing very well and is currently pain-free. He reports compliance with HEP 1x day and that he has attempted to progress planks to standard position once. He denies any pain or problems following last session. Pain Score: 0/10 Pain Location: (no pain currently) Description: (no pain currently) Frequency: Intermittent Post Treatment Pain Score: 0/10 Pain Location: (no pain) Post Treatment Pain Description: (fatigue without increased pain ) Post Treatment Symptoms: Pt stated, I actually feel better after each session. OBJECTIVE MEASURES WITH LEVEL OF FUNCTION: Improved postural awareness and alignment. TREATMENT: Therapeutic Exercise: 1: SciFit StepOne seat #11 resistance level 4 x5 minutes. 2: supine LTR 1x10 in pain-free range 3: supine B SKTC 3x30 seconds 4: supine DKTC 3x30 seconds 5: supine TA with B alt marching 2x10 each leg maintaining pelvic tilt 6: supine crunches in small range 3x15 7: bridging 3x10 in pain-free range with no UE assist and LEs on large physioball. 8: *standard planks 3x30 seconds 9: Back extension machine 100# 3x10 10: Seated with heel on floor left hamstring stretch 3x30 seconds. 11: Stir the pot 2 plates plus 2 round 2x10 cw and ccw facing each direction. 12: seated on ball at Hoist emphasis on posture scapular retraction 3 plates 3x12 13: seated on ball at [place] with emphasis on posture russel overhead pull downs keeping elbows extended 3 plates 3x12 14: seated on physioball with emphasis on posture, blue t-band perturbations R, L and forward 3x15 15: seated on physioball with emphasis on posture, body blade with 2 hand fountain supervisor, blade horizontal with hands at shoulder height 3x30 seconds and 2 hand fountain supervisor blade vertical side to side 2x30 seconds. 16: retro TM 0.6 mph x5 minutes Skilled Intervention: Patient was educated in proper exercise technique and purpose for exercises. Reviewed and educated patient on additions/changes for home exercise program as above (*) Skilled judgment was provided in selection of appropriate interventions. Correct performance of therapeutic exercises was facilitated with verbal and visual cuing. Billing: [facility]: Therapeutic Exercise ([id number]): 1:1 time: 55 minutes (4 units: 53-67 mins) Total time: 55 minutes Patrick Stafford PT CNTHERAPY Observed: 04/26/2018 Status: COMPLETED Source: [place] 9:00 AM [facility] REPOSITORY OT/PT/Speech Visit (PTWS) ALFRED DEUTSCH ([id number]) 1950 M Date Time Provider Department 04/26/18 9:00 AM PATRICK STAFFORD (PT) PTWS Date Time Provider Department Center 04/26/2018 9:00 AM [id number], BRENT (PT) PTWS [facility] [place] Reason for Visit: Physical Therapy [503] Visit Diagnosis:S/P lumbar spinal fusion [Z98.1] Allergies As of Date: 04/26/2018 Noted Allergy Reaction ELAVIL (AMITRIPTYLINE) 10/19/2016 9 - Itching GABAPENTIN 10/19/2016 1 - Mental Status Change Date Reviewed: 10/19/2016 Reviewed by: Aravind Ortiz - Fully Assessed Prescriptions as of 04/26/2018 Sig: ELIQUIS 5 MG TABLET TAKE 1 TABLET BY MOUTH TWICE * ATENOLOL 25 MG TABLET Take 25 mg by mouth once virgil* SERTRALINE 50 MG TABLET Take 25 mg by mouth once virgil* PANTOPRAZOLE 40 MG TABLET,DEL* Take 40 mg by mouth once virgil* CHOLECALCIFEROL (VITAMIN D3) * Take 5,000 Units by mouth onc* MULTI VIT-FLUORIDE ORAL Take by mouth. LISINOPRIL 20 MG TABLET Take 20 mg by mouth once virgil* MODAFINIL 200 MG TABLET Take 200 mg by mouth twice da* ASPIRIN 81 MG TABLET,DELAYED * Take 81 mg by mouth once virgil* FENOFIBRATE 54 MG TABLET Take 54 mg by mouth once virgil* ATORVASTATIN 40 MG TABLET Take 40 mg by mouth once virgil* FUROSEMIDE 40 MG TABLET Take 40 mg by mouth once virgil* Progress Notes: Patrick Stafford PT 04/26/2018 10:07 AM Signed Episode Visit Count: 6 Therapist That Will Oversee The Plan Of Care: Patrick Stafford PT Start of Care Date: 04/07/18 Onset Date: 04/07/15 Plan of Care Certification Date: 04/07/18 Patient Identified by Name and Date of : Yes REHABILITATION AND SPORTS THERAPY PHYSICAL THERAPY TREATMENT NOTE ASSESSMENT: Alfred Deutsch demonstrated improvements in strength, flexibility, exercise tolerance, pain management. The patient will continue to benefit from continued skilled physical therapy for supervised progression of therex to facilitate a return to prior functional level. PLAN FOR NEXT VISIT: continue with stretching and strengthening therex post-op lumbar fusion. Continue to progress strengthening to tolerance. Consider porgression of weight with PRE machines. SUBJECTIVE: Pt reports that overall he is still doing very well and is currently pain-free. He reports compliance with HEP 1x day and that he has attempted to progress planks to standard position once. He denies any pain or problems following last session. Pain Score: 0/10 Pain Location: (no pain currently) Description: (no pain currently) Frequency: Intermittent Post Treatment Pain Score: 0/10 Pain Location: (no pain) Post Treatment Pain Description: (fatigue without increased pain ) Post Treatment Symptoms: Pt stated, I actually feel better after each session. OBJECTIVE MEASURES WITH LEVEL OF FUNCTION: Improved postural awareness and alignment. TREATMENT: Therapeutic Exercise: 1: [employer] StepOne seat #11 resistance level 4 x5 minutes. 2: supine LTR 1x10 in pain-free range 3: supine B SKTC 3x30 seconds 4: supine DKTC 3x30 seconds 5: supine TA with B alt marching 2x10 each leg maintaining pelvic tilt 6: supine crunches in small range 3x15 7: bridging 3x10 in pain-free range with no UE assist and LEs on large physioball. 8: *standard planks 3x30 seconds 9: Back extension machine 100# 3x10 10: Seated with heel on floor left hamstring stretch 3x30 seconds. 11: Stir the pot 2 plates plus 2 round 2x10 cw and ccw facing each direction. 12: seated on ball at Hoist emphasis on posture scapular retraction 3 plates 3x12 13: seated on ball at Hoist with emphasis on posture russel overhead pull downs keeping elbows extended 3 plates 3x12 14: seated on physioball with emphasis on posture, blue t- band perturbations R, L and forward 3x15 15: seated on physioball with emphasis on posture, body blade with 2 hand fountain supervisor, blade horizontal with hands at shoulder height 3x30 seconds and 2 hand fountain supervisor blade vertical side to side 2x30 seconds. 16: retro TM 0.6 mph x5 minutes Skilled Intervention: Patient was educated in proper exercise technique and purpose for exercises. Reviewed and educated patient on additions/changes for home exercise program as above (*) Skilled judgment was provided in selection of appropriate interventions. Correct performance of therapeutic exercises was facilitated with verbal and visual cuing. Billing: [facility]: Therapeutic Exercise ([id number]): 1:1 time: 55 minutes (4 units: 53-67 mins) Total time: 55 minutes Patrick Stafford PT PROGRESS Observed: 04/19/2018 Status: COMPLETED Source: [place] 11:35 AM [facility] REPOSITORY HNO ID: [id number] Author: Patrick Stafford Service: (none) Author Type: Physical Therapist Type: Progress Notes Filed: 04/19/2018 11:37 AM Note Text: Episode Visit Count: 5 Therapist That Will Oversee The Plan Of Care: Patrick Stafford PT Start of Care Date: 04/07/18 Onset Date: 04/07/15 Plan of Care Certification Date: 04/07/18 Patient Identified by Name and Date of : Yes REHABILITATION AND SPORTS THERAPY PHYSICAL THERAPY TREATMENT NOTE ASSESSMENT: Alfred Deutsch demonstrated improvements in functional mobility, bending, lifting and exercise tolerance with no increase in pain. The patient will continue to benefit from continued skilled physical therapy for supervised progression of therex to regain prior functional status. PLAN FOR NEXT VISIT: continue with stretching and strengthening therex post-op lumbar fusion. Continue to progress strengthening to tolerance. Consider porgression of weight with PRE machines and consider transition of modified planks to kneeling planks. SUBJECTIVE: Pt reports compliance with HEP 2-3x day and mostly 2x day. He reports continued progressive functional improvements that please him. Specifically, he reports improved mobility in general as well as improved ability to retrieve items from the floor. He denies any pain currently and denies any increased pain or problems. Pain Score: 0/10 Pain Location: Buttocks - Left;Thigh - Left Description: (not much currently) Frequency: Intermittent Post Treatment Pain Score: 0/10 Pain Location: Buttocks - Left;Thigh - Left Post Treatment Pain Description: (fatigue but no increase in pain) Post Treatment Symptoms: appropriate level of fatigue but no increase in pain. OBJECTIVE MEASURES WITH LEVEL OF FUNCTION: Posture / Alignment Posture: Forward head;Rounded shoulders TREATMENT: Therapeutic Exercise: 1: [employer] StepOne seat #11 resistance level 3 x5 minutes. 2: supine LTR 1x15 in pain-free range 3: supine B SKTC 2x30 seconds 4: supine DKTC 2x30 seconds 5: supine TA with bent knee fall outs x 15 each leg 6: supine crunches in small range 3x15 7: bridging 3x10 in pain-free range with no UE assist and LEs on large physioball. 8: modified kneeling planks x30 seconds and 2x45 seconds 9: Back extension machine 70# 3x10 10: Seated on chair with heel on floor left hamstring stretch 3x30 seconds. 11: Stir the pot 2 plates 2x10 cw and ccw facing each direction. 12: seated at Hoist emphasis on posture scapular retraction 3 plates 3x10 13: seated at Hoist with emphasis on posture russel overhead pull downs keeping elbows extended 3 plates 3x10 14: seated on physioball with emphasis on posture, blue t-band perturbations R, L and forward 3x15 15: seated on physioball with emphasis on posture, body blade with 2 hand fountain supervisor, blade horizontal with hands at shoulder height 3x30 seconds and 2 hand fountain supervisor blade vertical side to side 2x30 seconds. 16: retro TM 0.6 mph x3 minutes Skilled Intervention: Patient was educated in proper exercise technique and purpose for exercises. Skilled judgment was provided in selection of appropriate interventions. Correct performance of therapeutic exercises was facilitated with verbal, visual and tactile cuing. Billing: [facility]: Therapeutic Exercise ([id number]): 1:1 time: 57 minutes (4 units: 53-67 mins) Total time: 57 minutes Patrick Stafford PT CNTHERAPY Observed: 04/19/2018 Status: COMPLETED Source: [place] 10:30 AM [facility] REPOSITORY OT/PT/Speech Visit (PTWS) ALFRED DEUTSCH ([id number]) 1950 M Date Time Provider Department 04/19/18 10:30 AM PATRICK STAFFORDPT) PTWS Date Time Provider Department Center 04/19/2018 10:30 AM [id number], BRENT (PT) PTWS [facility] Reason for Visit: Physical Therapy [503] Visit Diagnosis:S/P lumbar spinal fusion [Z98.1] Allergies As of Date: 04/19/2018 Noted Allergy Reaction ELAVIL (AMITRIPTYLINE) 10/19/2016 9 - Itching GABAPENTIN 10/19/2016 1 - Mental Status Change Date Reviewed: 10/19/2016 Reviewed by: Aravind Ortiz - Fully Assessed Prescriptions as of 04/19/2018 Sig: ELIQUIS 5 MG TABLET TAKE 1 TABLET BY MOUTH TWICE * ATENOLOL 25 MG TABLET Take 25 mg by mouth once virgil* SERTRALINE 50 MG TABLET Take 25 mg by mouth once virgil* PANTOPRAZOLE 40 MG TABLET,DEL* Take 40 mg by mouth once virgil* CHOLECALCIFEROL (VITAMIN D3) * Take 5,000 Units by mouth onc* MULTI VIT-FLUORIDE ORAL Take by mouth. LISINOPRIL 20 MG TABLET Take 20 mg by mouth once virgil* MODAFINIL 200 MG TABLET Take 200 mg by mouth twice da* ASPIRIN 81 MG TABLET,DELAYED * Take 81 mg by mouth once virgil* FENOFIBRATE 54 MG TABLET Take 54 mg by mouth once virgil* ATORVASTATIN 40 MG TABLET Take 40 mg by mouth once virgil* FUROSEMIDE 40 MG TABLET Take 40 mg by mouth once virgil* Progress Notes: Patrick Stafford PT 04/19/2018 11:37 AM Signed Episode Visit Count: 5 Therapist That Will Oversee The Plan Of Care: Patrick Stafford PT Start of Care Date: 04/07/18 Onset Date: 04/07/15 Plan of Care Certification Date: 04/07/18 Patient Identified by Name and Date of : Yes REHABILITATION AND SPORTS THERAPY PHYSICAL THERAPY TREATMENT NOTE ASSESSMENT: Alfred Ho Marito demonstrated improvements in functional mobility, bending, lifting and exercise tolerance with no increase in pain. The patient will continue to benefit from continued skilled physical therapy for supervised progression of therex to regain prior functional status. PLAN FOR NEXT VISIT: continue with stretching and strengthening therex post-op lumbar fusion. Continue to progress strengthening to tolerance. Consider porgression of weight with PRE machines and consider transition of modified planks to kneeling planks. SUBJECTIVE: Pt reports compliance with HEP 2-3x day and mostly 2x day. He reports continued progressive functional improvements that please him. Specifically, he reports improved mobility in general as well as improved ability to retrieve items from the floor. He denies any pain currently and denies any increased pain or problems. Pain Score: 0/10 Pain Location: Buttocks - Left;Thigh - Left Description: (not much currently) Frequency: Intermittent Post Treatment Pain Score: 0/10 Pain Location: Buttocks - Left;Thigh - Left Post Treatment Pain Description: (fatigue but no increase in pain) Post Treatment Symptoms: appropriate level of fatigue but no increase in pain. OBJECTIVE MEASURES WITH LEVEL OF FUNCTION: Posture / Alignment Posture: Forward head;Rounded shoulders TREATMENT: Therapeutic Exercise: 1: [employer] StepOne seat #11 resistance level 3 x5 minutes. 2: supine LTR 1x15 in pain-free range 3: supine B SKTC 2x30 seconds 4: supine DKTC 2x30 seconds 5: supine TA with bent knee fall outs x 15 each leg 6: supine crunches in small range 3x15 7: bridging 3x10 in pain-free range with no UE assist and LEs on large physioball. 8: modified kneeling planks x30 seconds and 2x45 seconds 9: Back extension machine 70# 3x10 10: Seated on chair with heel on floor left hamstring stretch 3x30 seconds. 11: Stir the pot 2 plates 2x10 cw and ccw facing each direction. 12: seated at Hoist emphasis on posture scapular retraction 3 plates 3x10 13: seated at Hoist with emphasis on posture russel overhead pull downs keeping elbows extended 3 plates 3x10 14: seated on physioball with emphasis on posture, blue t- band perturbations R, L and forward 3x15 15: seated on physioball with emphasis on posture, body blade with 2 hand fountain supervisor, blade horizontal with hands at shoulder height 3x30 seconds and 2 hand fountain supervisor blade vertical side to side 2x30 seconds. 16: retro TM 0.6 mph x3 minutes Skilled Intervention: Patient was educated in proper exercise technique and purpose for exercises. Skilled judgment was provided in selection of appropriate interventions. Correct performance of therapeutic exercises was facilitated with verbal, visual and tactile cuing. Billing: [facility]: Therapeutic Exercise ([id number]): 1:1 time: 57 minutes (4 units: 53-67 mins) Total time: 57 minutes Patrick Stafford PT PROGRESS Observed: 04/17/2018 Status: COMPLETED Source: [place] 11:52 AM [facility] REPOSITORY HNO ID: [id number] Author: Patrick Stafford Service: (none) Author Type: Physical Therapist Type: Progress Notes Filed: 04/17/2018 1:33 PM Note Text: Episode Visit Count: 4 Therapist That Will Oversee The Plan Of Care: Patrick Stafford PT Start of Care Date: 04/07/18 Onset Date: 04/07/15 Plan of Care Certification Date: 04/07/18 Patient Identified by Name and Date of : Yes REHABILITATION AND SPORTS THERAPY PHYSICAL THERAPY TREATMENT NOTE ASSESSMENT: Alfred Deutsch demonstrated improvements in walking long distance at grocery store with minimal pain. Decrease left hamstring cramping with addition of lacrosse ball mobs and hamstring stretching. Patient pain abolished today after manual therapy and exercises. The patient will continue to benefit from continued skilled physical therapy for progression of exercise and manual therapy as needed. PLAN FOR NEXT VISIT: Progress sets of stir the pot exercise and possibly add perturbations. SUBJECTIVE: Patient reports left hamstring and left buttock have some discomfort. [facility]int [facility] with no increase in pain. Pain Score: 2/10 Pain Location: Buttocks - Left;Thigh - Left (left hamstring) Description: Cramping Frequency: Intermittent Post Treatment Pain Score: 0/10 OBJECTIVE MEASURES WITH LEVEL OF FUNCTION: Tenderness to palpation left lower buttock and medial hamstring. TREATMENT: Therapeutic Exercise: 1: [employer] StepOne seat #11 resistance level 3 x5 minutes. Discussed progression of exercise during this time. 2: supine LTR 1x15 in pain-free range 3: supine B SKTC 1x30 seconds 4: supine DKTC 1x30 seconds 5: supine TA with bent knee fall outs x 15 each leg 6: supine crunches in small range 3x15 7: bridging 3x12 in pain-free range with no UE assist 8: modified kneeling planks 3x30 seconds 9: Back extension machine 60# 3x15 10: Seated at edge of table with heel on floor left hamstring stretch 3x30 seconds. 11: Stir the pot 1 large and 2 mini x15 cw and ccw facing each direction. 12: posterior pelvic tilt with marching 3x10 with instruction to count out loud for proper breathing. 14: Supine TA with marching x 15. 15: Seated upright with TA opposite arm and leg marching 2x10 Skilled Intervention: Patient was educated in proper exercise technique and purpose for exercises. Reviewed and educated patient on additions/changes for home exercise program and patient was instructed he could increase repetitions of exercises at home. Skilled judgment was provided in selection of appropriate interventions. Correct performance of therapeutic exercises was facilitated with verbal and visual cuing. Manual Therapy: 1: Lacrosse ball mobs left medial hamstring and lower buttock x 8 minutes with push to patient tolerance. Instruction on use of lacrosse ball while seated for home use on left hamstring. Skilled Intervention: Manual skills to improve joint mobility, ROM, and decrease pain. Utilized anatomy knowledge of the therapist, and assessment of patient's response to intervention. Billing: [facility]: Therapeutic Exercise ([id number]): 1:1 time: 35 minutes (2 units: 23-37 mins) Manual Therapy ([id number]): 1:1 time: 8 minutes (1 unit: 8-22 mins) Total time: 43 minutes LILA Powell PT CNTHERAPY Observed: 04/17/2018 Status: COMPLETED Source: [place] 8:30 AM [facility] REPOSITORY OT/PT/Speech Visit (PTWS) ALFRED DEUTSCH ([id number]) 1950 M Date Time Provider Department 04/17/18 8:30 AM KELLI GARNETT ([facility]AN) PTWS Date Time Provider Department Center 04/17/2018 8:30 AM [id number], NANCY ([facility]AN) PTWS [facility] Reason for Visit: Physical Therapy [503] Visit Diagnosis:S/P lumbar spinal fusion [Z98.1] Allergies As of Date: 04/17/2018 Noted Allergy Reaction ELAVIL (AMITRIPTYLINE) 10/19/2016 9 - Itching GABAPENTIN 10/19/2016 1 - Mental Status Change Date Reviewed: 10/19/2016 Reviewed by: Aravind Ortiz - Fully Assessed Prescriptions as of 04/17/2018 Sig: ELIQUIS 5 MG TABLET TAKE 1 TABLET BY MOUTH TWICE * ATENOLOL 25 MG TABLET Take 25 mg by mouth once virgil* SERTRALINE 50 MG TABLET Take 25 mg by mouth once virgil* PANTOPRAZOLE 40 MG TABLET,DEL* Take 40 mg by mouth once virgil* CHOLECALCIFEROL (VITAMIN D3) * Take 5,000 Units by mouth onc* MULTI VIT-FLUORIDE ORAL Take by mouth. LISINOPRIL 20 MG TABLET Take 20 mg by mouth once virgil* MODAFINIL 200 MG TABLET Take 200 mg by mouth twice da* ASPIRIN 81 MG TABLET,DELAYED * Take 81 mg by mouth once virgil* FENOFIBRATE 54 MG TABLET Take 54 mg by mouth once virgil* ATORVASTATIN 40 MG TABLET Take 40 mg by mouth once virgil* FUROSEMIDE 40 MG TABLET Take 40 mg by mouth once virgil* Progress Notes: Patrick Stafford PT 04/17/2018 1:33 PM Signed Episode Visit Count: 4 Therapist That Will Oversee The Plan Of Care: Patrick Stafford PT Start of Care Date: 04/07/18 Onset Date: 04/07/15 Plan of Care Certification Date: 04/07/18 Patient Identified by Name and Date of : Yes REHABILITATION AND SPORTS THERAPY PHYSICAL THERAPY TREATMENT NOTE ASSESSMENT: Alfred Deutsch demonstrated improvements in walking long distance at grocery store with minimal pain. Decrease left hamstring cramping with addition of lacrosse ball mobs and hamstring stretching. Patient pain abolished today after manual therapy and exercises. The patient will continue to benefit from continued skilled physical therapy for progression of exercise and manual therapy as needed. PLAN FOR NEXT VISIT: Progress sets of stir the pot exercise and possibly add perturbations. SUBJECTIVE: Patient reports left hamstring and left buttock have some discomfort. Pateint reports [facility] with no increase in pain. Pain Score: 2/10 Pain Location: Buttocks - Left;Thigh - Left (left hamstring) Description: Cramping Frequency: Intermittent Post Treatment Pain Score: 0/10 OBJECTIVE MEASURES WITH LEVEL OF FUNCTION: Tenderness to palpation left lower buttock and medial hamstring. TREATMENT: Therapeutic Exercise: 1: [employer] StepOne seat #11 resistance level 3 x5 minutes. Discussed progression of exercise during this time. 2: supine LTR 1x15 in pain-free range 3: supine B SKTC 1x30 seconds 4: supine DKTC 1x30 seconds 5: supine TA with bent knee fall outs x 15 each leg 6: supine crunches in small range 3x15 7: bridging 3x12 in pain-free range with no UE assist 8: modified kneeling planks 3x30 seconds 9: Back extension machine 60# 3x15 10: Seated at edge of table with heel on floor left hamstring stretch 3x30 seconds. 11: Stir the pot 1 large and 2 mini x15 cw and ccw facing each direction. 12: posterior pelvic tilt with marching 3x10 with instruction to count out loud for proper breathing. 14: Supine TA with marching x 15. 15: Seated upright with TA opposite arm and leg marching 2x10 Skilled Intervention: Patient was educated in proper exercise technique and purpose for exercises. Reviewed and educated patient on additions/changes for home exercise program and patient was instructed he could increase repetitions of exercises at home. Skilled judgment was provided in selection of appropriate interventions. Correct performance of therapeutic exercises was facilitated with verbal and visual cuing. Manual Therapy: 1: Lacrosse ball mobs left medial hamstring and lower buttock x 8 minutes with push to patient tolerance. Instruction on use of lacrosse ball while seated for home use on left hamstring. Skilled Intervention: Manual skills to improve joint mobility, ROM, and decrease pain. Utilized anatomy knowledge of the therapist, and assessment of patient's response to intervention. Billing: [facility]: Therapeutic Exercise ([id number]): 1:1 time: 35 minutes (2 units: 23-37 mins) Manual Therapy ([id number]): 1:1 time: 8 minutes (1 unit: 8-22 mins) Total time: 43 minutes LILA Powell PT Previous Version Follow-up and Disposition History Recorded PROGRESS Observed: 04/14/2018 Status: COMPLETED Source: [place] 8:53 AM [facility] REPOSITORY HNO ID: [id number] Author: Patrick Stafford Service: (none) Author Type: Physical Therapist Type: Progress Notes Filed: 04/14/2018 9:48 AM Note Text: Episode Visit Count: 3 Therapist That Will Oversee The Plan Of Care: Patrick Stafford PT Start of Care Date: 04/07/18 Onset Date: 04/07/15 Plan of Care Certification Date: 04/07/18 Patient Identified by Name and Date of : Yes REHABILITATION AND SPORTS THERAPY PHYSICAL THERAPY TREATMENT NOTE ASSESSMENT: Alfred Deutsch demonstrated difficulty with left hamstring cramping which was relieved with stretching and lacrosse ball mobilizations. Patient was able to advance core stabilization exercises today and currently has no back pain. Patient with excellent upright seated posture during therapy. The patient will continue to benefit from continued skilled physical therapy for progression of core strength and lacrosse ball mobs as needed left hamstring. PLAN FOR NEXT VISIT: Possibly add stir the pot exercise next visit. SUBJECTIVE: Patient reports minimal change. He reports having cramping left hamstring. Pain Score: 0/10 Pain Location: Thigh - Left (hamstring) Description: Cramping Frequency: Intermittent Post Treatment Pain Score: 0/10 Post Treatment Pain Description: (no cramping or discomfort left hamstring.) OBJECTIVE MEASURES WITH LEVEL OF FUNCTION: Patient with excellent upright seated posture during therapy. TREATMENT: Therapeutic Exercise: 1: [employer] StepOne seat #11 resistance level 3 x5 minutes. Discussed progression of exercise during this time. 2: supine LTR 2x10 in pain-free range 3: supine B SKTC 3x30 seconds 4: supine DKTC 3x30 seconds 5: supine TA with bent knee fall outs x 12 each leg 6: supine crunches in small range 3x12 7: bridging 3x10 in pain-free range with no UE assist 8: modified kneeling planks 3x30 seconds 9: Back extension machine 60# 3x10 10: *Seated at edge of table with heel on floor left hamstring stretch 3x30 seconds. 11: Supine left passive hamstring stretch 3x30 seconds. 12: posterior pelvic tilt 3x12 13: Supine TA with bent knee fall outs x 10. 14: Supine TA with marching x 10. 15: *Seated upright TA 3-5 reps with instruction Skilled Intervention: Patient was educated in proper exercise technique and purpose for exercises. Reviewed and educated patient on additions/changes for home exercise program as above (*) Skilled judgment was provided in selection of appropriate interventions. Provided written instruction for home exercise program to facilitate proper performance and compliance. Correct performance of therapeutic exercises was facilitated with verbal and visual cuing. Manual Therapy: 1: Foam roller left hamstring x 1 minute and lacrosse ball mobs left medial hamstring x 9 minutes with push to patient tolerance. Instruction on use of lacrosse ball while seated for home use on left hamstring. Skilled Intervention: Manual skills to improve joint mobility, ROM, and decrease pain. Utilized anatomy knowledge of the therapist, and assessment of patient's response to intervention. Billing: [facility]: Therapeutic Exercise ([id number]): 1:1 time: 50 minutes (3 units: 38-52 mins) Manual Therapy ([id number]): 1:1 time: 10 minutes (1 unit: 8-22 mins) Total time: 60 minutes LILA Powell PT CNTHERAPY Observed: 04/14/2018 Status: COMPLETED Source: [place] 7:45 AM [facility] REPOSITORY OT/PT/Speech Visit (PTWS) ALFRED DEUTSCH ([id number]) 1950 M Date Time Provider Department 04/14/18 7:45 AM KELLI GARNETT (STEPH) PTWS Date Time Provider Department Center 04/14/2018 7:45 AM [id number], NANCY ([facility]) PTWS [facility] Reason for Visit: Physical Therapy [503] Visit Diagnosis:S/P lumbar spinal fusion [Z98.1] Allergies As of Date: 04/14/2018 Noted Allergy Reaction ELAVIL (AMITRIPTYLINE) 10/19/2016 9 - Itching GABAPENTIN 10/19/2016 1 - Mental Status Change Date Reviewed: 10/19/2016 Reviewed by: Aravind Ortiz - Fully Assessed Prescriptions as of 04/14/2018 Sig: ELIQUIS 5 MG TABLET TAKE 1 TABLET BY MOUTH TWICE * ATENOLOL 25 MG TABLET Take 25 mg by mouth once virgil* SERTRALINE 50 MG TABLET Take 25 mg by mouth once virgil* PANTOPRAZOLE 40 MG TABLET,DEL* Take 40 mg by mouth once virgil* CHOLECALCIFEROL (VITAMIN D3) * Take 5,000 Units by mouth onc* MULTI VIT-FLUORIDE ORAL Take by mouth. LISINOPRIL 20 MG TABLET Take 20 mg by mouth once virgil* MODAFINIL 200 MG TABLET Take 200 mg by mouth twice da* ASPIRIN 81 MG TABLET,DELAYED * Take 81 mg by mouth once virgil* FENOFIBRATE 54 MG TABLET Take 54 mg by mouth once virgil* ATORVASTATIN 40 MG TABLET Take 40 mg by mouth once virgil* FUROSEMIDE 40 MG TABLET Take 40 mg by mouth once virgil* Progress Notes: Patrick Stafford PT 04/14/2018 9:48 AM Signed Episode Visit Count: 3 Therapist That Will Oversee The Plan Of Care: Patrick Stafford PT Start of Care Date: 04/07/18 Onset Date: 04/07/15 Plan of Care Certification Date: 04/07/18 Patient Identified by Name and Date of : Yes REHABILITATION AND SPORTS THERAPY PHYSICAL THERAPY TREATMENT NOTE ASSESSMENT: Alfred Deutsch demonstrated difficulty with left hamstring cramping which was relieved with stretching and lacrosse ball mobilizations. Patient was able to advance core stabilization exercises today and currently has no back pain. Patient with excellent upright seated posture during therapy. The patient will continue to benefit from continued skilled physical therapy for progression of core strength and lacrosse ball mobs as needed left hamstring. PLAN FOR NEXT VISIT: Possibly add stir the pot exercise next visit. SUBJECTIVE: Patient reports minimal change. He reports having cramping left hamstring. Pain Score: 0/10 Pain Location: Thigh - Left (hamstring) Description: Cramping Frequency: Intermittent Post Treatment Pain Score: 0/10 Post Treatment Pain Description: (no cramping or discomfort left hamstring.) OBJECTIVE MEASURES WITH LEVEL OF FUNCTION: Patient with excellent upright seated posture during therapy. TREATMENT: Therapeutic Exercise: 1: [employer] StepOne seat #11 resistance level 3 x5 minutes. Discussed progression of exercise during this time. 2: supine LTR 2x10 in pain-free range 3: supine B SKTC 3x30 seconds 4: supine DKTC 3x30 seconds 5: supine TA with bent knee fall outs x 12 each leg 6: supine crunches in small range 3x12 7: bridging 3x10 in pain-free range with no UE assist 8: modified kneeling planks 3x30 seconds 9: Back extension machine 60# 3x10 10: *Seated at edge of table with heel on floor left hamstring stretch 3x30 seconds. 11: Supine left passive hamstring stretch 3x30 seconds. 12: posterior pelvic tilt 3x12 13: Supine TA with bent knee fall outs x 10. 14: Supine TA with marching x 10. 15: *Seated upright TA 3-5 reps with instruction Skilled Intervention: Patient was educated in proper exercise technique and purpose for exercises. Reviewed and educated patient on additions/changes for home exercise program as above (*) Skilled judgment was provided in selection of appropriate interventions. Provided written instruction for home exercise program to facilitate proper performance and compliance. Correct performance of therapeutic exercises was facilitated with verbal and visual cuing. Manual Therapy: 1: Foam roller left hamstring x 1 minute and lacrosse ball mobs left medial hamstring x 9 minutes with push to patient tolerance. Instruction on use of lacrosse ball while seated for home use on left hamstring. Skilled Intervention: Manual skills to improve joint mobility, ROM, and decrease pain. Utilized anatomy knowledge of the therapist, and assessment of patient's response to intervention. Billing: [facility]: Therapeutic Exercise ([id number]): 1:1 time: 50 minutes (3 units: 38-52 mins) Manual Therapy ([id number]): 1:1 time: 10 minutes (1 unit: 8-22 mins) Total time: 60 minutes LILA Powell PT Previous Version Follow-up and Disposition History Recorded PROGRESS Observed: 04/12/2018 Status: COMPLETED Source: [place] 10:03 AM [facility] REPOSITORY O ID: [id number] Author: Patrick Stafford Service: (none) Author Type: Physical Therapist Type: Progress Notes Filed: 04/12/2018 10:05 AM Note Text: Episode Visit Count: 2 Therapist That Will Oversee The Plan Of Care: Patrick Stafford PT Start of Care Date: 04/07/18 Onset Date: 04/07/15 Plan of Care Certification Date: 04/07/18 Patient Identified by Name and Date of : Yes REHABILITATION AND SPORTS THERAPY PHYSICAL THERAPY TREATMENT NOTE ASSESSMENT: Alfred Deutsch demonstrated improvements in pain and exercise tolerance. The patient will continue to benefit from continued skilled physical therapy for supervised progression of therex. PLAN FOR NEXT VISIT: review and progress HEP, continue with pain-free stretching and stengthening therex to tolerance. SUBJECTIVE: Pt reports that overall he is feeling about the same. He reports compliance with HEP 2x day and occassionally 3x day. He denies any increase in pain with HEP completion. He denies any pain currently. He reports intermittent pain in posterior L thigh that occurs with walking farther than 5 minutes but that this is mild. Pain Score: 0/10 Pain Location: (no pain to start today) Description: (mild posterior L thigh pain with walking >5 minutes) Frequency: Intermittent Post Treatment Pain Score: 0/10 Pain Location: (no pain after) Post Treatment Pain Description: (abdominal fatigue but no increase in pain) Post Treatment Symptoms: Pt reports getting a good workout. OBJECTIVE MEASURES WITH LEVEL OF FUNCTION: Posture / Alignment Posture: Forward head;Rounded shoulders;Increased thoracic kyphosis TREATMENT: Therapeutic Exercise: 1: [employer] StepOne seat #11 resistance level 1 x5 minutes 2: supine LTR 2x10 in pain-free range 3: supine B SKTC 3x30 seconds 4: supine DKTC 3x30 seconds 5: *supine isometric abdominal exercise with 2 second hold of shoulder extension and 3x10 6: *supine crunches in small range 3x10 7: *bridging 3x10 in pain-free range 8: modified kneeling planks 3x30 seconds 9: Back extension machine 30# x15 and 50# 2x10 Skilled Intervention: Patient was educated in proper exercise technique and purpose for exercises. Reviewed and educated patient on additions/changes for home exercise program as above (*) Skilled judgment was provided in selection of appropriate interventions. Provided written instruction for home exercise program to facilitate proper performance and compliance. Correct performance of therapeutic exercises was facilitated with verbal and visual cuing. Billing: [facility]: Therapeutic Exercise ([id number]): 1:1 time: 45 minutes (3 units: 38-52 mins) Total time: 45 minutes Patrick Stafford PT CNTHERAPY Observed: 04/12/2018 Status: COMPLETED Source: [place] 9:00 AM [facility] REPOSITORY OT/PT/Speech Visit (PTWS) ALFRED DEUTSCH ([id number]) 1950 M Date Time Provider Department 04/12/18 9:00 AM PATRICK STAFFORD (PT) PTWS Date Time Provider Department Center 04/12/2018 9:00 AM [id number], BRENT (PT) PTWS [facility] Reason for Visit: Physical Therapy [503] Visit Diagnosis:S/P lumbar spinal fusion [Z98.1] Allergies As of Date: 04/12/2018 Noted Allergy Reaction ELAVIL (AMITRIPTYLINE) 10/19/2016 9 - Itching GABAPENTIN 10/19/2016 1 - Mental Status Change Date Reviewed: 10/19/2016 Reviewed by: Aravind Ortiz - Fully Assessed Prescriptions as of 04/12/2018 Sig: ASPIRIN 81 MG TABLET,DELAYED * Take 81 mg by mouth once virgil* ATENOLOL 25 MG TABLET Take 25 mg by mouth once virgil* ATORVASTATIN 40 MG TABLET Take 40 mg by mouth once virgil* CHOLECALCIFEROL (VITAMIN D3) * Take 5,000 Units by mouth onc* ELIQUIS 5 MG TABLET TAKE 1 TABLET BY MOUTH TWICE * FENOFIBRATE 54 MG TABLET Take 54 mg by mouth once virgil* FUROSEMIDE 40 MG TABLET Take 40 mg by mouth once virgil* LISINOPRIL 20 MG TABLET Take 20 mg by mouth once virgil* MODAFINIL 200 MG TABLET Take 200 mg by mouth twice da* MULTI VIT-FLUORIDE ORAL Take by mouth. PANTOPRAZOLE 40 MG TABLET,DEL* Take 40 mg by mouth once virgil* SERTRALINE 50 MG TABLET Take 25 mg by mouth once virgil* Progress Notes: Patrick Stafford PT 04/12/2018 10:05 AM Signed Episode Visit Count: 2 Therapist That Will Oversee The Plan Of Care: Patrick Stafford PT Start of Care Date: 04/07/18 Onset Date: 04/07/15 Plan of Care Certification Date: 04/07/18 Patient Identified by Name and Date of : Yes REHABILITATION AND SPORTS THERAPY PHYSICAL THERAPY TREATMENT NOTE ASSESSMENT: Alfred Deutsch demonstrated improvements in pain and exercise tolerance. The patient will continue to benefit from continued skilled physical therapy for supervised progression of therex. PLAN FOR NEXT VISIT: review and progress HEP, continue with pain-free stretching and stengthening therex to tolerance. SUBJECTIVE: Pt reports that overall he is feeling about the same. He reports compliance with HEP 2x day and occassionally 3x day. He denies any increase in pain with HEP completion. He denies any pain currently. He reports intermittent pain in posterior L thigh that occurs with walking farther than 5 minutes but that this is mild. Pain Score: 0/10 Pain Location: (no pain to start today) Description: (mild posterior L thigh pain with walking >5 minutes) Frequency: Intermittent Post Treatment Pain Score: 0/10 Pain Location: (no pain after) Post Treatment Pain Description: (abdominal fatigue but no increase in pain) Post Treatment Symptoms: Pt reports getting a good workout. OBJECTIVE MEASURES WITH LEVEL OF FUNCTION: Posture / Alignment Posture: Forward head;Rounded shoulders;Increased thoracic kyphosis TREATMENT: Therapeutic Exercise: 1: [employer] StepOne seat #11 resistance level 1 x5 minutes 2: supine LTR 2x10 in pain-free range 3: supine B SKTC 3x30 seconds 4: supine DKTC 3x30 seconds 5: *supine isometric abdominal exercise with 2 second hold of shoulder extension and 3x10 6: *supine crunches in small range 3x10 7: *bridging 3x10 in pain-free range 8: modified kneeling planks 3x30 seconds 9: Back extension machine 30# x15 and 50# 2x10 Skilled Intervention: Patient was educated in proper exercise technique and purpose for exercises. Reviewed and educated patient on additions/changes for home exercise program as above (*) Skilled judgment was provided in selection of appropriate interventions. Provided written instruction for home exercise program to facilitate proper performance and compliance. Correct performance of therapeutic exercises was facilitated with verbal and visual cuing. Billing: [facility]: Therapeutic Exercise ([id number]): 1:1 time: 45 minutes (3 units: 38-52 mins) Total time: 45 minutes Patrick Stafford PT PROGRESS Observed: 04/07/2018 Status: COMPLETED Source: [place] 4:48 PM [facility] REPOSITORY HNO ID: [id number] Author: Patrick (Pt) Rivera Service: (none) Author Type: Physical Therapist Type: Progress Notes Filed: 04/07/2018 4:55 PM Note Text: Episode Visit Count: 1 Therapist That Will Oversee The Plan Of Care: Patrick Stafford PT Start of Care Date: 04/07/18 Onset Date: 04/07/15 Plan of Care Certification Date: 04/07/18 Patient Identified by Name and Date of : Yes REHABILITATION AND SPORTS THERAPY PHYSICAL THERAPY EVALUATION PLAN OF CARE: Assessment: Alfred Deutsch presents with the diagnosis of s/p L5-S1 fusion with laminectomy. He presents with impairments of pain, ROM deficits, postural deficits, postural weakness and resulting functional limitations. He may benefit from skilled therapy services to improve ROM, pain, posture, core strength and facilitate a return to prior level of function. Classification Low Back Pain Subgroup Classification: Core stabilization subgroup: recommended visits 10. Core Stabilization Subgroup Classification based on: pain with transitional movements (history of lumbar surgery 03/03/18) Prognosis: Excellent Excellent due to: current objective clinical presentation;good overall health status;acuteness of injury;good support system/ coping skills Goals for Episode of Care: created on 04/07/18 through 05/12/18 Independent in home exercises. Patient will decrease pain to 0/10 at rest and with functional activities to allow patient to improve ambulation, transfers and bending/lifting. Restore pain-free lumbar ROM to WFL to allow for improved tolerance with bending, lifting and walking. Stand / Walk without limitations, without pain/symptoms. Patient will be able to tolerate bending, lifting and walking without increased symptoms. Patient will increase strength of core/postural muscles to WFL to allow for return to prior functional status and perform ADLs. Patient will increase flexibility of B hamstrings to -20 degrees to improve ability to maintain proper posture, restore normal mechanics and decrease pain. Patient will improve his/her AM-PAC T-scale score by 4 points to indicate a Minimal Clinical Important Difference. G CODE REPORTING Based on clinical assessment and the score on the AM-PAC Scale Score Assessment Tool, the G code and corresponding severity modifiers are documented below. Evaluation: 04/07/2018 Current Status: Changing AND Maintaining Body Position: G8981 20-39% impaired Goal Status: Changing AND Maintaining Body Position: G8982 20-39% impaired Planned Interventions, Frequency, and Duration: Current Frequency: 2x/week Duration: 5 weeks Total Number of Visits Planned: 10 Planned Treatment Interventions: Therapeutic exercise;Neuromuscular re-education;Therapeutic activities;Self-fpc management;Gait Training;Patient/Family/Caregiver Education;Body Mechanics Training PLAN FOR NEXT VISIT: review and progress HEP, begin pain-free stretching and stengthening therex to tolerance. Patient demonstrates good understanding of plan of care and treatment. The above goals and plan of care were discussed and agreed upon by patient/family. SUBJECTIVE: Alfred Deutsch is a 67 year old male seen today for Pt reports 3 year history of low back pain that required surgery 03/03/18. Pt had laminectomy and fusion and was inpatient for 2 days and returned home. He reports that he was not allowed any bending, twisting or lifting for 4 weeks but currently his only restriction is 25 pound lifting restriction. He reports that he is very pleased with his current outcome and is virtually pain-free. Patient Goals: pain-free function Functional Limitations: walking;lifting;bending Prior Level of Function: Independent without limitations Relevant History Medical Conditions: Cardiac Surgical Conditions: Total Shoulder Replacement (CABG x3 1995, shoulder 2014, back fusion 2017) Employment: Retired Home Environment Patient Lives With: Spouse Assistance Available: PRN Home Type: Ranch Entry To Home: Stairs;With Rail Number Of Stairs Into Home: 4 Number Of Stairs To Bed/Bath: 0 Intake Information: Prescription present Previous Treatment: Physical Therapy?;Surgery?;Injections? Falls Interview: No positive findings with falls interview Pain Score: 04/20 Pain Location: Thigh - Left (posterior aspect) Description: Aching Frequency: Intermittent Post Treatment Pain Score: No Change Pain Location: Thigh - Left Post Treatment Pain Description: (better) Post Treatment Symptoms: After session pt reported feeling better and stretched out. Red Flags Vertebral Fracture Clinical Reasoning: No identified risk factors Abdominal Aortic Aneurysm Clinical Reasoning: No identified risk factors. Cancer Clinical Reasoning: No identified risk factors. Infection Clinical Reasoning: No identified risk factors. Cauda Equina Syndrome Clinical Reasoning: No identified risk factors. Red Flags - Cervical Cancer Clinical Reasoning: No identified risk factors. Infection Clinical Reasoning: No identified risk factors. Spine History Symptoms Location at Onset: Back Symptoms Since Onset: Improving Pain is Worse Sometimes: Walking Pain is Better Always: Sitting Previous Episodes: Yes Previous Spine Episodes: chronic pain in low back that failed all conservative treatments Sleeping Position: Supine;Side lying right;Side lying left Sleep Affected by Pain: Not affected by pain OBJECTIVE MEASURES WITH LEVEL OF FUNCTION: Posture / Alignment Posture: Forward head;Rounded shoulders;Increased thoracic kyphosis;Decreased lumbar lordosis Spine Palpation R Lumbar Spine Palpation Tenderness: (none) L Lumbar Spine Palpation Tenderness: (none) Sensation - Lumbar Sensation: Grossly Intact Lumbar Spine AROM Lumbar Flexion: Moderate limitation Lumbar Extension: Major limitation Lumbar R Side-Bend: Normal Lumbar L Side-Bend: Normal Lumbar R Rotation: Moderate limitation Lumbar L Rotation: Normal Repeated Test Movements - Lumbar Directional preference: Yes Directional Preference Direction: Flexion Directional Preference Comments: sitting consistently relieves and walking consistently aggravates LE Flexibility Flexibility: Hamstring Flexibility R Hamstring Flexibility: -27 degrees L Hamstring Flexibility: -30 degrees LE Strength Trunk Strength: Pt's chronic history of low back pain, postural deficits, post-op status and reported functional limitations are all indications that he will benefit from increased core and postural strength. R LE Strength: No asymmetrical myotomal weakness detected L LE Strength: No asymmetrical myotomal weakness except for EHL 4/5 L Great Toes Extension (L5, S1): 4/5 Special Tests - Hip and Spine Hip and Spine Special Tests: SLR Test SLR Test: Right Negative;Left Negative Gait Gait Observation: Slightly antalgic pattern with pt report of mild central low back pain with rising and walking Education: Education Learning Preferences: Demonstration;Explanation;Performance;Printed Materials Barriers: None Learning/educational needs: Home exercise program;Health promotion;Plan of Care;Posture;Body Mechanics Education Provided: Yes, see treatment interventions for education provided Education Provided To: Patient Education Mode/Type: Demonstration;Explanation/Discussion;Literature/Printed Materials;Performance Response to Education/Teach Back: States/Identifies;Return Demonstration;Requires Review/Additional Education TREATMENT: Evaluation Therapeutic Exercise: 1: Pt was educated on anatomy of lumbar spine, surgical procedure and rationale for proposed treatment plan. Pt was educated on postural correction and rationale for all body mechanics instructions. Handout provided on postural correction and body mechanics. Recommendations made on how to complete supine to sit and sit to supine transfers with log roll technique to minimize strain and pain on lumbar spine. 2: *supine LTR 2x10 in pain-free range 3: *supine B SKTC 3x30 seconds 4: *supine DKTC 3x30 seconds Skilled Intervention: Patient was educated in proper exercise technique and purpose for exercises. Reviewed and educated patient on additions/changes for home exercise program as above (*) Skilled judgment was provided in selection of appropriate interventions. Provided written instruction for home exercise program to facilitate proper performance and compliance. Correct performance of therapeutic exercises was facilitated with verbal, visual and tactile cuing. Billing: [facility]: Evaluation - Moderate Complexity ([id number]) Therapeutic Exercise ([id number]): 1:1 time: 15 minutes (1 unit: 8-22 mins) Total time: 45 minutes Patrick Stafford PT CNTHERAPY Observed: 04/07/2018 Status: COMPLETED Source: [place] 9:30 AM [facility] REPOSITORY OT/PT/Speech Visit (PTWS) ALFRED DEUTSCH ([id number]) 1950 M Date Time Provider Department 04/07/18 9:30 AM PATRICK STAFFORDPT) PTWS Date Time Provider Department Center 04/07/2018 9:30 AM [id number], BRENT (PT) PTWS [facility] Reason for Visit: PT Eval [747] Patient Education [91] Visit Diagnosis:S/P lumbar spinal fusion [Z98.1] Allergies As of Date: 04/07/2018 Noted Allergy Reaction ELAVIL (AMITRIPTYLINE) 10/19/2016 9 - Itching GABAPENTIN 10/19/2016 1 - Mental Status Change Date Reviewed: 10/19/2016 Reviewed by: Aravind Ortiz - Fully Assessed Prescriptions as of 04/07/2018 Sig: ASPIRIN 81 MG TABLET,DELAYED * Take 81 mg by mouth once virgil* ATENOLOL 25 MG TABLET Take 25 mg by mouth once virgil* ATORVASTATIN 40 MG TABLET Take 40 mg by mouth once virgil* CHOLECALCIFEROL (VITAMIN D3) * Take 5,000 Units by mouth onc* ELIQUIS 5 MG TABLET TAKE 1 TABLET BY MOUTH TWICE * FENOFIBRATE 54 MG TABLET Take 54 mg by mouth once virgil* FUROSEMIDE 40 MG TABLET Take 40 mg by mouth once virgil* LISINOPRIL 20 MG TABLET Take 20 mg by mouth once virgil* MODAFINIL 200 MG TABLET Take 200 mg by mouth twice da* MULTI VIT-FLUORIDE ORAL Take by mouth. PANTOPRAZOLE 40 MG TABLET,DEL* Take 40 mg by mouth once virgil* SERTRALINE 50 MG TABLET Take 25 mg by mouth once virgil* Progress Notes: Patrick Stafford PT 04/07/2018 4:55 PM Signed Episode Visit Count: 1 Therapist That Will Oversee The Plan Of Care: Patrick Stafford PT Start of Care Date: 04/07/18 Onset Date: 04/07/15 Plan of Care Certification Date: 04/07/18 Patient Identified by Name and Date of : Yes REHABILITATION AND SPORTS THERAPY PHYSICAL THERAPY EVALUATION PLAN OF CARE: Assessment: Alfred Deutsch presents with the diagnosis of s/p L5-S1 fusion with laminectomy. He presents with impairments of pain, ROM deficits, postural deficits, postural weakness and resulting functional limitations. He may benefit from skilled therapy services to improve ROM, pain, posture, core strength and facilitate a return to prior level of function. Classification Low Back Pain Subgroup Classification: Core stabilization subgroup: recommended visits 10. Core Stabilization Subgroup Classification based on: pain with transitional movements (history of lumbar surgery 03/03/18) Prognosis: Excellent Excellent due to: current objective clinical presentation;good overall health status;acuteness of injury;good support system/ coping skills Goals for Episode of Care: created on 04/07/18 through 05/12/18 Independent in home exercises. Patient will decrease pain to 0/10 at rest and with functional activities to allow patient to improve ambulation, transfers and bending/lifting. Restore pain-free lumbar ROM to WFL to allow for improved tolerance with bending, lifting and walking. Stand / Walk without limitations, without pain/symptoms. Patient will be able to tolerate bending, lifting and walking without increased symptoms. Patient will increase strength of core/postural muscles to WFL to allow for return to prior functional status and perform ADLs. Patient will increase flexibility of B hamstrings to -20 degrees to improve ability to maintain proper posture, restore normal mechanics and decrease pain. Patient will improve his/her AM-PAC T-scale score by 4 points to indicate a Minimal Clinical Important Difference. G CODE REPORTING Based on clinical assessment and the score on the AM-PAC Scale Score Assessment Tool, the G code and corresponding severity modifiers are documented below. Evaluation: 04/07/2018 Current Status: Changing AND Maintaining Body Position: G8981 20-39% impaired Goal Status: Changing AND Maintaining Body Position: G8982 20-39% impaired Planned Interventions, Frequency, and Duration: Current Frequency: 2x/week Duration: 5 weeks Total Number of Visits Planned: 10 Planned Treatment Interventions: Therapeutic exercise;Neuromuscular re-education;Therapeutic activities;Self-fpc management;Gait Training;Patient/Family/Caregiver Education;Body Mechanics Training PLAN FOR NEXT VISIT: review and progress HEP, begin pain-free stretching and stengthening therex to tolerance. Patient demonstrates good understanding of plan of care and treatment. The above goals and plan of care were discussed and agreed upon by patient/family. SUBJECTIVE: Alfred Deutsch is a 67 year old male seen today for Pt reports 3 year history of low back pain that required surgery 03/03/18. Pt had laminectomy and fusion and was inpatient for 2 days and returned home. He reports that he was not allowed any bending, twisting or lifting for 4 weeks but currently his only restriction is 25 pound lifting restriction. He reports that he is very pleased with his current outcome and is virtually pain-free. Patient Goals: pain-free function Functional Limitations: walking;lifting;bending Prior Level of Function: Independent without limitations Relevant History Medical Conditions: Cardiac Surgical Conditions: Total Shoulder Replacement (CABG x3 1995, shoulder 2014, back fusion 2017) Employment: Retired Home Environment Patient Lives With: Spouse Assistance Available: PRN Home Type: Ranch Entry To Home: Stairs;With Rail Number Of Stairs Into Home: 4 Number Of Stairs To Bed/Bath: 0 Intake Information: Prescription present Previous Treatment: Physical Therapy?;Surgery?;Injections? Falls Interview: No positive findings with falls interview Pain Score: 04/20 Pain Location: Thigh - Left (posterior aspect) Description: Aching Frequency: Intermittent Post Treatment Pain Score: No Change Pain Location: Thigh - Left Post Treatment Pain Description: (better) Post Treatment Symptoms: After session pt reported feeling better and stretched out. Red Flags Vertebral Fracture Clinical Reasoning: No identified risk factors Abdominal Aortic Aneurysm Clinical Reasoning: No identified risk factors. Cancer Clinical Reasoning: No identified risk factors. Infection Clinical Reasoning: No identified risk factors. Cauda Equina Syndrome Clinical Reasoning: No identified risk factors. Red Flags - Cervical Cancer Clinical Reasoning: No identified risk factors. Infection Clinical Reasoning: No identified risk factors. Spine History Symptoms Location at Onset: Back Symptoms Since Onset: Improving Pain is Worse Sometimes: Walking Pain is Better Always: Sitting Previous Episodes: Yes Previous Spine Episodes: chronic pain in low back that failed all conservative treatments Sleeping Position: Supine;Side lying right;Side lying left Sleep Affected by Pain: Not affected by pain OBJECTIVE MEASURES WITH LEVEL OF FUNCTION: Posture / Alignment Posture: Forward head;Rounded shoulders;Increased thoracic kyphosis;Decreased lumbar lordosis Spine Palpation R Lumbar Spine Palpation Tenderness: (none) L Lumbar Spine Palpation Tenderness: (none) Sensation - Lumbar Sensation: Grossly Intact Lumbar Spine AROM Lumbar Flexion: Moderate limitation Lumbar Extension: Major limitation Lumbar R Side-Bend: Normal Lumbar L Side-Bend: Normal Lumbar R Rotation: Moderate limitation Lumbar L Rotation: Normal Repeated Test Movements - Lumbar Directional preference: Yes Directional Preference Direction: Flexion Directional Preference Comments: sitting consistently relieves and walking consistently aggravates LE Flexibility Flexibility: Hamstring Flexibility R Hamstring Flexibility: -27 degrees L Hamstring Flexibility: -30 degrees LE Strength Trunk Strength: Pt's chronic history of low back pain, postural deficits, post-op status and reported functional limitations are all indications that he will benefit from increased core and postural strength. R LE Strength: No asymmetrical myotomal weakness detected L LE Strength: No asymmetrical myotomal weakness except for EHL 4/5 L Great Toes Extension (L5, S1): 4/5 Special Tests - Hip and Spine Hip and Spine Special Tests: SLR Test SLR Test: Right Negative;Left Negative Gait Gait Observation: Slightly antalgic pattern with pt report of mild central low back pain with rising and walking Education: Education Learning Preferences: Demonstration;Explanation;Performance;Printed Materials Barriers: None Learning/educational needs: Home exercise program;Health promotion;Plan of Care;Posture;Body Mechanics Education Provided: Yes, see treatment interventions for education provided Education Provided To: Patient Education Mode/Type: Demonstration;Explanation/Discussion;Literature/Printed Materials;Performance Response to Education/Teach Back: States/Identifies;Return Demonstration;Requires Review/Additional Education TREATMENT: Evaluation Therapeutic Exercise: 1: Pt was educated on anatomy of lumbar spine, surgical procedure and rationale for proposed treatment plan. Pt was educated on postural correction and rationale for all body mechanics instructions. Handout provided on postural correction and body mechanics. Recommendations made on how to complete supine to sit and sit to supine transfers with log roll technique to minimize strain and pain on lumbar spine. 2: *supine LTR 2x10 in pain-free range 3: *supine B SKTC 3x30 seconds 4: *supine DKTC 3x30 seconds Skilled Intervention: Patient was educated in proper exercise technique and purpose for exercises. Reviewed and educated patient on additions/changes for home exercise program as above (*) Skilled judgment was provided in selection of appropriate interventions. Provided written instruction for home exercise program to facilitate proper performance and compliance. Correct performance of therapeutic exercises was facilitated with verbal, visual and tactile cuing. Billing: [facility]: Evaluation - Moderate Complexity (30766) Therapeutic Exercise (11916): 1:1 time: 15 minutes (1 unit: 8-22 mins) Total time: 45 minutes Patrick Stafford PT Letter Text CARDIOLOGY VISIT Observed: 02/28/2018 Status: F Source: [place] REPORT 5:53 PM [facility] [address] [place] [address] [address] [place] [address] OFFICE VISIT Date of Service: 02/28/18 MR#: [id number] Acct: [id number] Name: ALFRED DEUTSCH Rep #: [id number] : 1950 Provider: Hyun Iglesias Age/Sex: 67/M Location: [facility] Status: Signed HPI HPI Chief Complaint: Acute Kidney Injury Details: ALFRED DEUTSCH is a 67 M who presents to the office today for a cardiovascular follow-up. He has a history of coronary artery disease with bypass surgery in 1996. He had an BETHEA to the LAD, SVG to circumflex and diagonal he also has stents to his right and left iliac arteries. 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 [Ecotrin] 81 mg PO QHS 01/22/15 [History Confirmed 02/28/18] Modafinil [Provigil] 200 mg PO BID 01/22/15 [History Confirmed 02/16/18] Multivitamins,Therapeutic [Multivitamin] 1 tab PO DAILY 01/22/15 [History Confirmed 02/28/18] Cholecalciferol (Vitamin D3) [Vitamin D3] 5,000 unit PO DAILY 06/23/16 [History Confirmed 02/28/18] pantoprazole 40 mg tablet,delayed release 40 mg PO PRN PRN 30 Days #30 04/14/17 [History Confirmed 02/28/18] atorvastatin 40 mg tablet 40 mg PO DAILY #90 tab 07/04/17 [Rx Confirmed 02/28/18] atenolol 25 mg tablet 25 mg PO DAILY #90 tab 08/22/17 [Rx Confirmed 02/28/18] apixaban 5 mg tablet 5 mg PO [...] carotid artery (Chronic) Atherosclerotic heart disease of [place] coronary artery without angina pectoris (Chronic) Obesity (BMI 30-39.9) (Chronic) Anxiety and depression (Chronic) Atrial fibrillation and flutter (Chronic) PAD (peripheral artery disease) (Chronic) Surgical History History of prior ablation treatment (Resolved 2011) H/O shoulder replacement (Resolved 2014) History of left heart catheterization (LHC) (Chronic) History of transurethral resection of prostate (Chronic 2004) History of coronary [...] did patient quit smokin alcohol intake: former year quit: 2016 substance [...] nose normal, nasal mucous membranes and turbinates normal, nares normal, septum normal, [...] normal inspection of the chest, symmetric chest movement and normal respiratory effort Auscultation: Bilateral: Clear to Auscultation Cardio Palpation: normal PMI Rate: regular rate Rhythm: regular rhythm Heart sounds: S1 normal, S2 normal and normal, physiologic split S2; negative rub, gallop or murmur GI GI: normal to inspection, soft, no hepatosplenomegaly and bowel sounds present Neuro General: alert, awake, oriented x3, no focal sensory deficit, gait normal and moves all extremities Skin Skin: no rashes or lesions noted Extremities Pulses: Normal: Right Femoral Pulse, Left Femoral Pulse, Right Dorsalis Pedis Pulse, Left Dorsalis Pedis Pulse, Right Posterior Tibial Pulse, Left Posterior Tibial Pulse, Right Radial Pulse, Left Radial Pulse Lower Extremity Edema: None: Bilateral Musculoskel Musculoskeletal: No joint tenderness Psych Psychological: normal affect Supplemental Info Echocardiogram in 2017 demonstrated an ejection fraction of 65%. Left ventricular systolic function is normal. Mild to moderate mitral insufficiency. Mild to moderate tricuspid insufficiency. Improvement in his EF was noted since his previous cardioversion. Ejection fraction at that time was 50%. Pharmacologic nuclear stress test in May 2016 demonstrated myocardial perfusion changes compatible with previous myocardial injury sports/infarct with no myocardial perfusion changes consider diagnostic for stress associated myocardial ischemia. Assessment AND Plan 1. Atherosclerosis of [place] coronary artery of [place] heart without angina pectoris I25.10 CABG 03/20/1997 BETHEA to LAD, Reverse SVG to CX and to DX, C 07/21/2011 Plan - [facility] [place] Stable, from a cardiac standpoint patient does not have any symptoms of angina. We recommend that they continue with current aggressive medical management and risk factor modification. 2. Essential hypertension I10 Plan - [facility]A [place] Blood pressure still elevated. We will have him increase his Norvasc to 5 mg daily. He will call her office in 2 weeks with an update on what they have been running. Patient Instructions [...] left carotid artery I65.22 Plan - [facility]A [place] Patient does continue to follow with vascular for this. 5. PAD (peripheral artery disease) I73.9 s/p BL LE common iliac stenting Plan - [facility]A [place] Patient does follow with vascular. 6. Atrial fibrillation and flutter I48.91; I48.92 s/p ablation x 2 (flutter and fibrillation) Plan - [facility]A [place] Patient remains anticoagulated. He has not had any symptomatic recurrence. We will continue to monitor. 7. Renal disease N28.9 Plan - LEDA [place] We will obtain a BMP today. Will also refer patient to nephrology. Orders Orders: Referrals: Plan Detail Other Orders Orders: Other [...] Code Off vis,est,level 4 Diagnoses Atherosclerosis of [place] coronary artery of [place] heart without angina pectoris I25.10 [place] vs. transplanted heart: [place] heart Essential hypertension I10 Hypertension type: essential hypertension Pure hypercholesterolemia E78.00; E78.0 Hyperlipidemia type: pure hypercholesterolemia Occlusion and stenosis of left carotid artery I65.22 PAD (peripheral artery disease) I73.9 Atrial fibrillation and flutter I48.91; I48.92 Renal disease N28.9 Coding Level of Care Code Off vis,est,level 4 Diagnoses Atherosclerosis of [place] coronary artery of [place] heart without angina pectoris I25.10 [place] vs. transplanted heart: [place] heart Essential hypertension I10 Hypertension type: essential hypertension Pure hypercholesterolemia E78.00; E78.0 Hyperlipidemia type: pure hypercholesterolemia Occlusion and stenosis of left carotid artery I65.22 PAD (peripheral artery disease) I73.9 Atrial fibrillation and flutter I48.91; I48.92 Renal disease N28.9 02/28/18 1747 <Electronically signed by Hyun TOMPKINS> Date Hyun TOMPKINS 02/28/18 1753<Electronically signed by Babatunde Maria MD> Cosigner Signature: Date (if applicable) Babatunde Maria MD CC: Jazz Rodas DO BASIC METABOLIC Collected: 02/28/2018 Status: F Source: [place] PROFILE (BMP) 4:07 PM [facility] TYPE CODE TESTS RESULT OUT OF RANGE REFERENCE UNITS LAB L501.0100 74-106 mg/dL Normal GLU 98 Result Comment: Please note revised GLUCOSE reference range effective 2017. LAB L501.1000 7-18 mg/dL High BUN 38 LAB L501.1100 0.70-1.30 mg/dL High CREAT,SERUM 1.52 Result Comment: The validity of the calculated GFR AND GFRAA in patients over 70 years has not been determined. Clinical correlation is essential. LAB L501.1110 >60 mL/min Low EST GFR 49 Result Comment: Non- GFR Calc LAB L501.1115 >60 mL/min Low EST GFR - AA 59 Result Comment: GFR Calc LAB L501.1300 10-20 RATIO High BUN/CRE 25.0 LAB L501.2200 8.5-10.1 mg/dL CA Normal 9.9 LAB L501.5300 136-145 mmol/L Low NA 134 LAB L501.5600 3.5-5.1 mmol/L K Normal 3.8 Result Comment: Slight Hemolysis, Result may be falsely increased. LAB L501.5900 98-107 mmol/L Low CL 97 LAB L501.6100 21.0-32.0 mmol/L Normal CO2 30.0 LAB L501.6200 5-15 Normal GAP 7 Performed By: #### L500.2500 #### [facility] [address] [place], [address] ALBUMIN, SERUM Collected: 02/23/2018 Status: F Source: [place] 8:53 AM [facility] TYPE CODE TESTS RESULT OUT OF RANGE REFERENCE UNITS LAB L501.1800 3.2-5.0 g/dL Normal ALB 3.5 Performed By: #### L501.1800 #### [facility] [address] [place], [address] VITAMIN D,25 HYDROXY Collected: 02/23/2018 Status: F Source: [place] 8:53 AM [facility] TYPE CODE TESTS RESULT OUT OF RANGE REFERENCE UNITS LAB L506.1000 29.95-100.01 ng/mL Normal Vitamin D 47.7 25-OH Result Comment: Vitamin D 25(OH) Status Range Deficiency <20 ng/mL (50nmol/L) Insuffciency 20 - 30 ng/mL (50 - 75 nmol/L) Sufficiency 30 - 100 ng/mL (75 - 250 nmol/L) Toxicity >100 ng/mL (>250 nmol/L) Performed By: #### L506.1000 #### [facility] [address] [place], [address] HEMOGLOBIN A1C Collected: 02/23/2018 Status: F Source: [place] 8:53 AM [facility] TYPE CODE TESTS RESULT OUT OF RANGE REFERENCE UNITS LAB L501.9985 4.2-6.3 % Normal HGB A1C 5.7 Performed By: #### L501.9985 #### [place] [facility] [address], [address] OFFICE VISIT REPORT Observed: 02/21/2018 Status: F Source: [place] 3:57 PM [facility] [address] [address] OFFICE VISIT Date of Service: 02/20/18 MR#: [id number] Acct: [id number] Patient: ALFRED DEUTSCH Rep #: [id number] : 1950 Provider: Babatunde Maria MD Age/Sex: 67/M Location: [facility] Status: Signed Intake Intake Visit Reasons: ROSE Chief Complaint: Acute Kidney Injury Allergies gabapentin Adverse Reaction (Verified 02/16/18 17:06) Other warfarin [From Coumadin] Adverse Reaction (Verified 02/16/18 17:06) very sensitive, high INR and GI bleed Medications Aspirin E.C. [Ecotrin] 81 mg PO QHS 01/22/15 [History Confirmed 02/16/18] Modafinil [Provigil] 200 mg PO BID 01/22/15 [History Confirmed 02/16/18] Multivitamins,Therapeutic [Multivitamin] 1 tab PO DAILY 01/22/15 [History Confirmed 02/16/18] Cholecalciferol (Vitamin D3) [Vitamin D3] 5,000 unit PO DAILY 06/23/16 [History Confirmed 02/16/18] pantoprazole 40 mg tablet,delayed release 40 mg PO PRN PRN 30 Days #30 04/14/17 [History Confirmed 02/16/18] fenofibrate 54 mg tablet 54 mg PO QHS #90 tab 06/27/17 [Rx Confirmed 02/16/18] atorvastatin 40 mg tablet 40 mg PO DAILY #90 tab 07/04/17 [Rx Confirmed 02/16/18] atenolol 25 mg tablet 25 mg PO DAILY #90 tab 08/22/17 [Rx Confirmed 02/16/18] apixaban 5 mg tablet 5 mg PO BID 30 Days #60 tab 11/03/17 [Rx Confirmed 02/16/18] Citalopram Hydrobromide [Citalopram HBr] 10 mg PO DAILY 02/16/18 [History Confirmed 02/16/18] amlodipine 2.5 mg tablet 2.5 mg PO DAILY #30 tab 02/20/18 [Rx] furosemide 40 mg tablet 40 mg PO DAILY #90 tab 02/21/18 [Rx] Nursing Note Patient came in yesterday with c/o 9 lb weight gain, BLE edema and edema of his hands. Was recently in the hospital with REGINO. Lasix and lisinopril were stopped. Per Hyun Iglesias take lasic 40mg x 3 days and start amlodipine 2.5mg daily and schedule f/u in 1-2 weeks. Patient agrees. 02/21/18 4359 <Electronically signed by Hyun TOMPKINS> Date Hyun TOMPKINS Cosigner Signature: Date (if applicable) CC: DISCHARGE SUMMARY Observed: 02/18/2018 Status: F Source: [place] 8:14 AM [facility] Medical Records Department [address] [place] [address] Discharge Summary 02/18/18 0732 MR#: [id number] Acct: [id number] Name: ALFRED DEUTSCH Rep #: [id number] : 1950 67 From: Ravinder Carter MD PCP: Jazz Rodas DO Status: ADM IN Location: [place] [address] Discharge Date and Diagnosis - Problem List Patient Problems: Active and Suspected Problems (Last Reviewed 10/27/17 @ 09:21 by Babatunde Maria MD) AK on CKD stage III (Acute) Date of Admission: 02/16/18 Date of Discharge: 02/18/18 - Primary Discharge Diagnosis Active and Suspected Problems (Last Reviewed 10/27/17 @ 09:21 by Babatunde Maria MD) AK on CKD stage III (Acute) - Secondary Discharge Diagnosis Chronic Problems (Last Reviewed 10/27/17 @ 09:21 by Babatunde Maria MD) History of left heart catheterization (LHC) (Chronic) 03/1997, 03/2004, 07/21/2011 History of transurethral resection of prostate (Chronic) History of coronary artery bypass surgery (Chronic) HLD (hyperlipidemia) (Chronic) HTN (hypertension) (Chronic) Atherosclerosis of coronary artery bypass graft without angina pectoris (Chronic) Renal disease (Chronic) Presence of aortocoronary bypass graft (Chronic) CABG 03/20/1997 BETHEA to LAD, Reverse SVG to CX and to DX Persistent atrial fibrillation (Chronic) Dyspnea (Chronic) Sleep apnea (Chronic) Occlusion and stenosis of left carotid artery (Chronic) Atherosclerotic heart disease of [place] coronary artery without angina pectoris (Chronic) CABG 03/20/1997 BETHEA to LAD, Reverse SVG to CX and to DX, C 07/21/2011 Obesity (BMI 30-39.9) (Chronic) Anxiety and depression (Chronic) Atrial fibrillation and flutter (Chronic) s/p ablation x 2 (flutter and fibrillation) PAD (peripheral artery disease) (Chronic) s/p BL LE common iliac stenting Acute alcohol intoxication (Chronic) Rotator cuff tear arthropathy of right shoulder (Chronic) Slurred speech (Chronic) pad with stents leg (Chronic) Hospital Course and Treatment Imaging Results: Laboratory Tests WBC 3.7 L (4.4-11.0) K/mm3 WBC (4.4-11.0) K/mm3 RBC (4.6-6.2) M/mm3 Hgb (13.0-16.5) g/dl Summary of Care Provided: Patient is a 67-year-old gentleman with multiple comorbidities was undergoing preop evaluation for an upcoming surgery patient was noted to have abnormal labs sent to the ED for subsequent management patient was found to be in acute kidney injury started on IV fluids and admitted to regular nursing floor for further management 1. Acute kidney injury secondary to medication induced kidney injury patient was on both lisinopril as well as diuretics furosemide suspected offending medications held on admission patient started on IV fluids with monitoring of electrolyte consultation was placed to nephrology. Patient kidney function did improve with holding of lisinopril and Lasix as well as with IV fluids. Plan is for patient to follow-up with Dr. Rodas his primary care physician for subsequent care 2. CAD with previous CABG (CABG 03/20/1997 BETHEA to LAD, Reverse SVG to CX and to DX, C 07/21/2011) 3. Peripheral arterial disease with bilateral lower extremity common iliac stenting 4. Hypertension-blood pressure controlled, home medications continued except for lisinopril 5. Dyslipidemia-patient is on statin therapy, continued at home dose 6. Paroxysmal A. fib: Rate controlled also systemic anticoagulation with Eliquis 7. Obstructive sleep apnea patient is on CPAP at night 6. Obesity with BMI of 38.9 7. Chronic kidney disease stage III suspected to be secondary to hypertensive nephrosclerosis baseline creatinine 1.6-1.8 8. Rotator cuff tear arthropathy of right shoulder ; status post right shoulder replacement 9. BPH with previous TURP 10. Carotid artery disease 11. Depression with anxiety 12. DVT prophylaxis patient is on Eliquis no need for additional measures Patient Problems: Active and Suspected Problems (Last Reviewed 10/27/17 @ 09:21 by Babatunde Maria MD) AK on CKD stage III (Acute) - Physical Exam General: Oriented x3 HEENT: Atraumatic Neck: Supple Lungs: Normal air movement Cardiovascular: Regular rate Neurological: Neuro grossly intact Psych/Mental Status: Normal Affect Vital Signs Temp Pulse Resp BP Pulse Ox 97.9 F 61 14 122/54 H 100 02/18/18 02:36 02/18/18 02:36 02/18/18 02:36 02/18/18 02:36 02/18/18 02:36 Oxygen Delivery Method Room Air Weight: 105.9 kg Body Mass Index (BMI) 38.8 Finger Stick Blood Glucose 98 Intake and Output for Last 24 Hours Intake Total 4477 / 4477 2767 / 2767 Output Total 3800 / 3800 1850 / 1850 Balance 677 / 677 917 / 917 Laboratory Tests Past 24 Hrs Sodium Pending Potassium Pending Chloride Pending Carbon Dioxide Pending Discharge Diet: Low fat/ Low Cholesterol Home Medications: Medications to take at Discharge Aspirin E.C. [Ecotrin] 81 mg PO QHS 01/22/15 Modafinil [Provigil] 200 mg PO BID 01/22/15 Multivitamins,Therapeutic [Multivitamin] 1 tab PO DAILY 01/22/15 Cholecalciferol (Vitamin D3) [Vitamin D3] 5,000 unit PO DAILY 06/23/16 pantoprazole 40 mg tablet,delayed release 40 mg PO PRN PRN 30 Days #30 04/14/17 fenofibrate 54 mg tablet 54 mg PO QHS #90 tab 06/27/17 atorvastatin 40 mg tablet 40 mg PO DAILY #90 tab 07/04/17 atenolol 25 mg tablet 25 mg PO DAILY #90 tab 08/22/17 apixaban 5 mg tablet 5 mg PO BID 30 Days #60 tab 11/03/17 Citalopram Hydrobromide [Citalopram HBr] 10 mg PO DAILY 02/16/18 Primary Care Physician: Jazz Rodas DO [Primary Care Provider] - Please follow up with your Primary Care Physician in: in 3- 5 days for repeat labs Please Follow Up With: Ramiro Gregory MD When: in 1-2 weeks Disposition: Home Minutes spent on discharge:: 35 Patient Condition:: Stable Medical Necessity - Tobacco Use Smoking Status: Former smoker Tobacco Use: Cigarettes Meaningful Use Info Meaningful Use Diagnoses (Choose all that apply): None applicable Code Visit Inpatient E AND M: 86916 Disch Hosp 02/18/18 0814 <Electronically signed by Ravinder Carter MD> Date Ravinder Carter MD Cosigner Signature (if applicable): Date CC: Ravinder Carter MD; Jazz Rodas DO Signed DISCHARGE INSTRUCTION Observed: 02/18/2018 Status: F Source: [place] 8:06 AM [facility] Medical Records Department [address] [place] [address] Instructions for Home/Discharge Instructions 02/18/1833 MR#: [id number] Acct: [id number] Name: ALFRED DEUTSCH Rep #: [id number] : 1950 67 From: Ravinder Carter MD PCP: Jazz Rodas DO Status: ADM IN - Discharge Diagnoses Current Active Problems: Current Active and Chronic Problems (Last Reviewed 10/27/17 @ 09:21 by Babatunde Maria MD) AK on CKD stage III (Acute) You will use the following diet at home:: Cardiac Allergies/Adverse Reactions: Allergies gabapentin Adverse Reaction (Verified 02/16/18 17:06) Other made me nuts warfarin [From Coumadin] Adverse Reaction (Verified 02/16/18 17:06) very sensitive, high INR and GI bleed Medications to take at Discharge Aspirin E.C. [Ecotrin] 81 mg PO QHS 01/22/15 Modafinil [Provigil] 200 mg PO BID 01/22/15 Multivitamins,Therapeutic [Multivitamin] 1 tab PO DAILY 01/22/15 Cholecalciferol (Vitamin D3) [Vitamin D3] 5,000 unit PO DAILY 06/23/16 pantoprazole 40 mg tablet,delayed release 40 mg PO PRN PRN 30 Days #30 04/14/17 fenofibrate 54 mg tablet 54 mg PO QHS #90 tab 06/27/17 atorvastatin 40 mg tablet 40 mg PO DAILY #90 tab 07/04/17 atenolol 25 mg tablet 25 mg PO DAILY #90 tab 08/22/17 apixaban 5 mg tablet 5 mg PO BID 30 Days #60 tab 11/03/17 Citalopram Hydrobromide [Citalopram HBr] 10 mg PO DAILY 02/16/18 Primary Care Physician: Jazz Rodas DO [Primary Care Provider] - Please follow up with your Primary Care Physician in: in 3- 5 days for repeat labs Test Results: Test results from this visit will be discussed in further detail at your follow-up appointment, if applicable. Please Follow Up With: Ramiro Gregory MD When: in 1-2 weeks Proposed Discharge Date: 02/18/18 02/18/18805 <Electronically signed by Ravinder Carter MD> Date Ravinder Carter MD CC: Zayra Gregory M.D.; Jazz Rodas DO BASIC METABOLIC Collected: 02/18/2018 Status: F Source: [place] PROFILE (BMP) 6:57 AM [facility] TYPE CODE TESTS RESULT OUT OF RANGE REFERENCE UNITS LAB L501.0100 74-106 mg/dL Normal GLU 89 Result Comment: Please note revised GLUCOSE reference range effective 2017. LAB L501.1000 7-18 mg/dL High BUN 61 LAB L501.1100 0.70-1.30 mg/dL High CREAT,SERUM 1.38 Result Comment: The validity of the calculated GFR AND GFRAA in patients over 70 years has not been determined. Clinical correlation is essential. LAB L501.1110 >60 mL/min Low EST GFR 54 Result Comment: Non- GFR Calc LAB L501.1115 >60 mL/min Normal EST GFR - AA 66 Result Comment: GFR Calc LAB L501.1255 ml/min Normal Estimated CRCL 43.95 LAB L501.1300 10-20 RATIO High BUN/CRE 44.2 LAB L501.2200 8.5-10 mg/dL Normal .1 CA 8.5 LAB L501.5300 136-14 mmol/L Normal 5 NA 143 LAB L501.5600 3.5-5. mmol/L Normal 1 K 4.9 LAB L501.5900 98-107 mmol/L High CL 110 LAB L501.6100 21.0-3 mmol/L Normal 2.0 CO2 24.0 LAB L501.6200 5-15 Normal GAP 9 Performed By: #### L500.2500 #### [facility] [address] [place], [address] CONSULTATION Observed: 02/17/2018 Status: F Source: [place] 4:15 PM [facility] Medical Records Department [address] [place] [address] Consultation 02/17/18 1611 MR#: [id number] Acct: [id number] Name: ALFRED DEUTSCH Rep #: [id number] : 1950 67 From: Ramiro Gregory MD PCP: Jazz Rodas DO Status: ADM IN Y Location: [facility] [place] NS799-0 Problem List (1) AK on CKD stage III Status: Acute Consultation - Renal 02/17/18 PCP/ Referring MD: Requesting physician: Dr Smith Primary care physician: Jazz Rdoas Reason for Consultation:: REGINO - History of Present Illness History of Present Illness: The patient is a 67 year old M who was admitted after outpatient lab work showed REGINO. has history of back pain, was scheduled for surgery on 03/07/18. has routine blood work drawn as part of pre op physical and this showed REGINO hence he was referred to ER. patient is completely asymptomatic no urinary complaints no new meds no swelling issues no NSAIDs last time any med was started was last year - Allergies Allergies: Allergies gabapentin Adverse Reaction (Verified 02/16/18 17:06) Other made me nuts warfarin [From Coumadin] Adverse Reaction (Verified 02/16/18 17:06) very sensitive, high INR and GI bleed - Current Medications Current Medications: Current Medications Al Hydroxide/Mg Hydroxide (Mylanta Ii) 30 ml PO Q6H PRN PRN PRN Reason: Gastric burning Apixaban (Eliquis) 5 mg PO BID [facility] Last Admin: 02/17/18 08:35 Dose: 5 mg Aspirin (Ecotrin) 81 mg PO QHS [facility] Last Admin: 02/16/18 21:54 Dose: 81 mg Atenolol (Tenormin (Beta Ariadna)) 25 mg PO DAILY [facility] Last Admin: 02/17/18 08:36 Dose: 25 mg Atorvastatin Calcium (Lipitor) 40 mg PO QHS [facility] Last Admin: 02/16/18 21:54 Dose: 40 mg Cholecalciferol (Vitamin D) 5,000 unit PO SUPPER [facility] Citalopram Hydrobromide (Celexa) 10 mg PO DAILY [facility] Last Admin: 02/17/18 08:35 Dose: 10 mg Sodium Chloride () 1,000 mls @ 150 mls/hr IV .Q6H40M [facility] Last Admin: 02/17/18 11:31 Dose: 150 mls/hr Modafinil (Provigil) 200 mg PO BID@0800,1200 [facility] Last Admin: 02/17/18 11:19 Dose: Not Given [facility] Admin: 02/17/18 08:35 Dose: 1 tablet Ondansetron HCl (Zofran) 4 mg IV Q8H PRN PRN PRN Reason: NAUSEA Pantoprazole Sodium (Protonix) 40 mg PO DAILY PRN PRN PRN Reason: GI CRAMPING Promethazine HCl (Phenergan) 12.5 mg IV Q6H PRN PRN PRN Reason: NAUSEA/VOMITING Psyllium Hydrophilic Mucilloid (Metamucil) 1 packet PO DAILY PRN PRN PRN Reason: CONSTIPATION Senna/Docusate Sodium (Senokot-S, Liv-Colace) 2 tablet PO BID PRN PRN PRN Reason: Constipation Sodium Chloride () 5 - 30 ml IV UD PRN PRN Reason: SALINE FLUSH Zolpidem Tartrate (Ambien (Generic)) 5 mg PO QHS PRN PRN PRN Reason: INSOMNIA - Past Medical History Past Medical History (Chronic Problems): Chronic Problems (Last Reviewed 10/27/17 @ 09:21 by Babatunde Maria MD) History of left heart catheterization (LHC) (Chronic) 03/1997, 03/2004, 07/21/2011 History of transurethral resection of prostate (Chronic) History of coronary artery bypass surgery (Chronic) HLD (hyperlipidemia) (Chronic) HTN (hypertension) (Chronic) Atherosclerosis of coronary artery bypass graft without angina pectoris (Chronic) Renal disease (Chronic) Presence of aortocoronary bypass graft (Chronic) CABG 03/20/1997 BETHEA to LAD, Reverse SVG to CX and to DX Persistent atrial fibrillation (Chronic) Dyspnea (Chronic) Sleep apnea (Chronic) Occlusion and stenosis of left carotid artery (Chronic) Atherosclerotic heart disease of [place] coronary artery without angina pectoris (Chronic) CABG 03/20/1997 BETHEA to LAD, Reverse SVG to CX and to DX, C 07/21/2011 Obesity (BMI 30-39.9) (Chronic) Anxiety and depression (Chronic) Atrial fibrillation and flutter (Chronic) s/p ablation x 2 (flutter and fibrillation) PAD (peripheral artery disease) (Chronic) s/p BL LE common iliac stenting Acute alcohol intoxication (Chronic) Rotator cuff tear arthropathy of right shoulder (Chronic) Slurred speech (Chronic) pad with stents leg (Chronic) - Past Surgical History Surgical History: coronary bypass surgery, - - Jaw ointment, bilateral lower extremity common iliac stenting, CABG 3, nasal surgery, TURP, ablation 2, total reverse shoulder replacement, ulnar nerve repair. - Social History Smoking Status: Former smoker - Family History Paternal Family History: Family History (Last Reviewed 10/27/17 @ 09:21 by Babatunde Maria MD) Father Myocardial infarction Heart disease Mother CAD (coronary artery disease) Brother CAD (coronary artery disease) Diabetes Hx of CABG Sister Hypertension Pulmonary embolism History Items: Heart Disease, Hypertension Maternal Family History: Family History (Last Reviewed 10/27/17 @ 09:21 by Babatunde Maria MD) Father Myocardial infarction Heart disease Mother CAD (coronary artery disease) Brother CAD (coronary artery disease) Diabetes Hx of CABG Sister Hypertension Pulmonary embolism History Items: Stroke Review of Systems Constitutional: Denies: Chills, Fever, Weight Change HEENT: Denies: Head Aches, Sinus Congestion, Sinus Drainage Cardiovascular: Denies: Chest Pain, Palpitations Respiratory: Denies: Cough, Shortness of breath at rest, Sputum production Gastrointestinal: Denies: Abdominal Pain, Nausea, Vomiting Genitourinary: Denies: Dysuria Musculoskeletal: Denies: Joint Pain, Joint Tenderness Skin: Denies: Rash, Wounds Neurological: Denies: Numbness, Tingling, Focal weakness Psychiatric: Denies: Anxiety, Depression, Homicidal Ideations, Suicidal Ideations Hematologic/ Lymphatic: Denies: Easy Bruising, Easy Bleeding Patient Problems: Active and Suspected Problems (Last Reviewed 10/27/17 @ 09:21 by Babatunde Maria MD) AK on CKD stage III (Acute) - Physical Exam General: Alert, Oriented x3, Cooperative HEENT: Atraumatic, PERRLA, EOMI, Normocephalic Neck: Supple, No JVD, Negative Carotid Bruits Lungs: Clear to auscultation, Normal air movement Cardiovascular: Regular rate, No murmurs Abdomen: Bowel Sounds Present, Soft, Non Tender Extremities: No edema, Capillary Refill Less than 3 Seconds Skin: No rashes, No breakdown Musculoskeletal: No Tenderness to Palpation of Joints or Extremities Neurological: Cranial nerves II-XII grossly intact Psych/Mental Status: Normal Affect, Appropriate Vital Signs Temp Pulse Resp BP Pulse Ox 98.1 F 56 L 18 105/48 L 92 02/17/18 14:43 02/17/18 14:43 02/17/18 14:43 02/17/18 14:43 02/17/18 14:43 Oxygen Delivery Method Room Air Weight: 105.9 kg Body Mass Index (BMI) 38.8 Finger Stick Blood Glucose 98 Intake and Output for Last 24 Hours Intake Total 2409 / 2409 Output Total 3350 / 3350 Balance -941 / -941 Laboratory Tests Past 24 Hrs WBC RBC Hgb Hct MCV MCH MCHC RDW RDW Differential WBC RBC Assessment/Plan All Active Problems (Last Reviewed 10/27/17 @ 09:21 by Babatunde Maria MD) AK on CKD stage III (Acute) H/O shoulder replacement (Resolved) Blood loss anemia (Resolved) Supratherapeutic INR (Resolved) REGINO CKD stage 3 Baseline creatinine is around 1.6 or so. no clear precipitant for REGINO as per history. no urinary complaints. BUN and cr are significantly better. UA is completely benign. BP is on lower side. he is on lasix but he has been on same dose for a long time. Same with lisinopril. UA is completely benign Prior abdomen imaging is ok cr and BUN are significantly better Plan continue fluids one more day if BUN and Cr better tomorrow, ok to dc will repeat BMP 1 week after should still be ok for surgery on 03/07/18 d/w Dr Carter 02/17/18 9784 <Electronically signed by Ramiro Gregory MD> Date Ramiro Gregory MD Cosigner Signature (if applicable): Date CC: Zayra Gregory M.D.; Jazz Rodas DO Signed CBC W/DIFF, AUTOMATED Collected: 02/17/2018 Status: F Source: [place] 6:45 AM [facility] TYPE CODE TESTS RESULT OUT OF RANGE REFERENCE UNITS LAB L100.1000 4.4-11.0 K/mm3 Low WBC 3.7 LAB L100.1200 4.6-6.2 M/mm3 Low RBC 3.96 LAB L100.1300 13.0-16.5 g/dl Normal HGB 13.4 LAB L100.1400 40-54 % Low HCT 39.2 LAB L100.1500 80-94 fL High MCV 99.0 LAB L100.1600 27.0-32.0 pg High MCH 33.8 LAB L100.1700 32-36 g/gl Normal MCHC 34.2 LAB L100.1810 11.6-14.6 % Normal RDW CV 13.4 LAB L100.1820 35.1-43.9 fl High RDW SD 47.5 LAB L100.1900 150-450 K/mm3 Low PLT 124 LAB L100.2000 6.2-12.0 fl Normal MPV 9.2 LAB L100.2100 47-70 % Normal NEUT% 58.1 LAB L100.2200 19-41 % Normal LY% 28.0 LAB L100.2300 0-10 % Normal MONO% 8.2 LAB L100.2400 0-5 % High EO% 5.4 LAB L100.2500 0-1 % Normal BASO% 0.3 LAB L100.2550 0.0-0.9 % Normal IM GRAN % 0.000 Result Comment: IG% - Immature Granulocytes (promyelocytes, myelocytes and metamyelocytes) > 1% indicates that a LEFT SHIFT is Present. LAB L100.2620 2.0-7.7 X10 3/uL Normal Absolute Neut 2.1 LAB L100.2720 0.83-4.51 X10 3/ul Normal Absolute Lymph 1.03 Performed By: #### L100.0100 #### [facility] [address] [place], [address] BASIC METABOLIC Collected: 02/17/2018 Status: F Source: [place] [facility] ([facility]) 6:45 AM [facility] TYPE CODE TESTS RESULT OUT OF RANGE REFERENCE UNITS LAB L501.0100 74-106 mg/dL Normal GLU 86 Result Comment: Please note revised GLUCOSE reference range effective 2017. LAB L501.1000 7-18 mg/dL High BUN 95 LAB L501.1100 0.70-1.30 mg/dL High CREAT,SERUM 2.33 Result Comment: The validity of the calculated GFR AND GFRAA in patients over 70 years has not been determined. Clinical correlation is essential. LAB L501.1110 >60 mL/min Low EST GFR 30 Result Comment: Non- GFR Calc LAB L501.1115 >60 mL/min Low EST GFR - AA 36 Result Comment: GFR Calc LAB L501.1255 ml/min Normal Estimated CRCL 26.03 LAB L501.1300 10-20 RATIO High BUN/CRE 40.8 LAB L501.2200 8.5-10 mg/dL Low .1 CA 8.1 LAB L501.5300 136-14 mmol/L Normal 5 NA 139 LAB L501.5600 3.5-5. mmol/L Normal 1 K 4.7 LAB L501.5900 98-107 mmol/L Normal CL 105 LAB L501.6100 21.0-3 mmol/L Normal 2.0 CO2 25.0 LAB L501.6200 5-15 Normal GAP 9 Performed By: #### L500.2500 #### [facility] [address] [place], [address] HISTORY AND PHYSICAL Observed: 02/16/2018 Status: F Source: [place] EXAM 7:59 PM [facility] Medical Records Department [address] [place] [address] History and Physical 02/16/181942 MR#: [id number] Acct: [id number] Name: ALFRED DEUTSCH Rep #: [id number] : 1950 67 From: Alhaji Smith MD PCP: Jazz Rodas DO Status: ADM IN Y Location: [facility] [place] AN073-2 Problem List (1) H/O shoulder replacement Status: Resolved (2) History of left heart catheterization (LHC) Status: Chronic Comment: 03/1997, 03/2004, 07/21/2011 (3) History of transurethral resection of prostate Status: Chronic (4) History of coronary artery bypass surgery Status: Chronic (5) HLD (hyperlipidemia) Status: Chronic Qualifiers: (6) HTN (hypertension) Status: Chronic Qualifiers: (7) Atherosclerosis of coronary artery bypass graft without angina pectoris Status: Chronic Qualifiers: (8) Renal disease Status: Chronic (9) Presence of aortocoronary bypass graft Status: Chronic Comment: CABG 03/20/1997 BETHEA to LAD, Reverse SVG to CX and to DX (10) Persistent atrial fibrillation Status: Chronic (11) Dyspnea Status: Chronic (12) Sleep apnea Status: Chronic (13) Occlusion and stenosis of left carotid artery Status: Chronic (14) Atherosclerotic heart disease of [place] coronary artery without angina pectoris Status: Chronic Comment: CABG 03/20/1997 BETHEA to LAD, Reverse SVG to CX and to DX, [facility] 07/21/2011 (15) Obesity (BMI 30-39.9) Status: Chronic (16) Anxiety and depression Status: Chronic (17) Atrial fibrillation and flutter Status: Chronic Comment: s/p ablation x 2 (flutter and fibrillation) (18) PAD (peripheral artery disease) Status: Chronic Comment: s/p BL LE common iliac stenting (19) Acute alcohol intoxication Status: Chronic (20) Rotator cuff tear arthropathy of right shoulder Status: Chronic (21) Slurred speech Status: Chronic (22) pad with stents leg Status: Chronic (23) AK on CKD stage III Status: Acute History of Present Illness Date of Admission: 02/16/18 Chief Complaint: Abnormal labs by PCP The patient is a 67 year old M with history of coronary artery disease status post triple-vessel CABG in 1996, peripheral arterial disease status post bilateral common iliac artery stenting in about 1994, A. fib ablation in 2011 and atrial flutter ablation in 2015 was supposed to have lumbar back surgery in about 3-4 weeks therefore he went for preop labs. Preop labs shows elevated creatinine and BUN and therefore was sent to ER. In ED, his creatinine shows 3.56, BUN 103, PREVIOUS 1.74/62 in September 2017. Patient is on Lasix 40 mg and lisinopril 20 mg twice daily at home. Patient denies any change in the urine output, lower urinary tract symptoms, renal angle pain, fever or flulike symptoms or acute illness. Patient denies recent history of fluid loss including nausea, vomiting diarrhea or GI bleed. He is on Eliquis 5 mg twice daily for A. fib. H AND H 14.9/44. Platelet 1 54,000. of note, patient had TURP many years ago and his urine flow is good. [] Past Medical History Past Medical History (Chronic Problems): Chronic Problems (Last Reviewed 10/27/17 @ 09:21 by Babatunde Maria MD) History of left heart catheterization (LHC) (Chronic) 03/1997, 03/2004, 07/21/2011 History of transurethral resection of prostate (Chronic) History of coronary artery bypass surgery (Chronic) HLD (hyperlipidemia) (Chronic) HTN (hypertension) (Chronic) Atherosclerosis of coronary artery bypass graft without angina pectoris (Chronic) Renal disease (Chronic) Presence of aortocoronary bypass graft (Chronic) CABG 03/20/1997 BETHEA to LAD, Reverse SVG to CX and to DX Persistent atrial fibrillation (Chronic) Dyspnea (Chronic) Sleep apnea (Chronic) Occlusion and stenosis of left carotid artery (Chronic) Atherosclerotic heart disease of [place] coronary artery without angina pectoris (Chronic) CABG 03/20/1997 BETHEA to LAD, Reverse SVG to CX and to DX, [facility] 07/21/2011 Obesity (BMI 30-39.9) (Chronic) Anxiety and depression (Chronic) Atrial fibrillation and flutter (Chronic) s/p ablation x 2 (flutter and fibrillation) PAD (peripheral artery disease) (Chronic) s/p BL LE common iliac stenting Acute alcohol intoxication (Chronic) Rotator cuff tear arthropathy of right shoulder (Chronic) Slurred speech (Chronic) pad with stents leg (Chronic) Medical History: Medical History (Last Reviewed 10/27/17 @ 09:21 by Babatunde Maria MD) HLD (hyperlipidemia) (Chronic) E78.5 HTN (hypertension) (Chronic) I10 Atherosclerosis of coronary artery bypass graft without angina pectoris (Chronic) I25.810 Renal disease (Chronic) N28.9 Persistent atrial fibrillation (Chronic) I48.1 Dyspnea (Chronic) R06.00 Sleep apnea (Chronic) G47.30 Occlusion and stenosis of left carotid artery (Chronic) I65.22 Atherosclerotic heart disease of [place] coronary artery without angina pectoris (Chronic) I25.10 CABG 03/20/1997 BETHEA to LAD, Reverse SVG to CX and to DX, [facility] 07/21/2011 Obesity (BMI 30-39.9) (Chronic) E66.9 Anxiety and depression (Chronic) F41.9, F32.9 Atrial fibrillation and flutter (Chronic) I48.91, I48.92 s/p ablation x 2 (flutter and fibrillation) PAD (peripheral artery disease) (Chronic) I73.9 s/p BL LE common iliac stenting Allergies gabapentin Adverse Reaction (Verified 02/16/18 17:06) Other made me nuts warfarin [From Coumadin] Adverse Reaction (Verified 02/16/18 17:06) very sensitive, high INR and GI bleed Home Medications: Ambulatory Orders Medication Instructions Recorded Aspirin E.C. [Ecotrin] 81 mg PO QHS 01/22/15 Modafinil [Provigil] 200 mg PO BID 01/22/15 Multivitamins,Therapeutic 1 tab PO DAILY 01/22/15 Surgical History: Surgical History (Last Reviewed 10/27/17 @ 09:21 by Babatunde Maria MD) H/O shoulder replacement (Resolved) Z96.619 History of left heart catheterization (LHC) (Chronic) Z98.890 03/1997, 03/2004, 07/21/2011 History of transurethral resection of prostate (Chronic) Z98.890, Z90.79 History of coronary artery bypass surgery (Chronic) Z95.1 Presence of aortocoronary bypass graft (Chronic) Z95.1 CABG 03/20/1997 BETHEA to LAD, Reverse SVG to CX and to DX Surgical History: coronary bypass surgery, - - Jaw ointment, bilateral lower extremity common iliac stenting, CABG 3, nasal surgery, TURP, ablation 2, total reverse shoulder replacement, ulnar nerve repair. Psychiatric History: Anxiety, Depression Smoking Status: Former smoker Tobacco Use: Cigarettes - *Family History Paternal Family History: Family History (Last Reviewed 10/27/17 @ 09:21 by Babatunde Maria MD) Father Myocardial infarction Heart disease Mother CAD (coronary artery disease) Brother CAD (coronary artery disease) Diabetes Hx of CABG Sister Hypertension Pulmonary embolism History Items: Heart Disease, Hypertension Maternal Family History: Family History (Last Reviewed 10/27/17 @ 09:21 by Babatunde Maria MD) Father Myocardial infarction Heart disease Mother CAD (coronary artery disease) Brother CAD (coronary artery disease) Diabetes Hx of CABG Sister Hypertension Pulmonary embolism History Items: Stroke Review of Systems Constitutional: Denies: Chills, Fever, Weight Change HEENT: Denies: Head Aches, Sinus Congestion, Sinus Drainage Cardiovascular: Denies: Chest Pain, Palpitations Respiratory: Denies: Cough, Shortness of breath at rest, Sputum production Gastrointestinal: Denies: Abdominal Pain, Nausea, Vomiting Genitourinary: Denies: Dysuria Musculoskeletal: Reports: Back Pain, Joint Pain. Denies: Joint Tenderness Skin: Denies: Rash, Wounds Neurological: Denies: Numbness, Tingling, Focal weakness Psychiatric: Denies: Anxiety, Depression, Homicidal Ideations, Suicidal Ideations Hematologic/ Lymphatic: Denies: Easy Bruising, Easy Bleeding VTE Information - Inpt Only VTE Present on Admission: No VTE Pharm Prophylaxis ordered?: No Reason prophylaxis not ordered:: Procedure Not Indicated Patient Problems: Active and Suspected Problems (Last Reviewed 10/27/17 @ 09:21 by Babatunde Maria MD) AK on CKD stage III (Acute) - Physical Exam General: Alert, Oriented x3, Cooperative HEENT: Atraumatic, PERRLA, EOMI, Normocephalic Oral: Moist Mucosa Neck: Supple, No JVD, Negative Carotid Bruits Lungs: Clear to auscultation, Normal air movement, No rhonchi, No wheeze, No rales Cardiovascular: Regular rate, Regular Rhythm, Normal S1, Normal S2, No murmurs Abdomen: Bowel Sounds Present, Soft, Non Tender, Non-Distended Extremities: Capillary Refill Less than 3 Seconds, Edema Skin: No rashes, No breakdown Musculoskeletal: No Tenderness to Palpation of Joints or Extremities, Arthritic Changes, - - No lumbar spine tenderness Neurological: Cranial nerves II-XII grossly intact, Neuro grossly intact, Motor Exam 5/5 strength throughout Psych/Mental Status: Normal Affect, Appropriate Vital Signs Temp Pulse Resp BP Pulse Ox 98.8 F 63 18 113/59 L 96 02/16/18 17:07 02/16/18 19:37 02/16/18 19:37 02/16/18 19:37 02/16/18 19:37 Oxygen Delivery Method Room Air Weight: 236 lb 1.841 oz Body Mass Index (BMI) 39.2 Finger Stick Blood Glucose 98 Laboratory Tests Past 24 Hrs WBC 4.9 Assessment/Plan All Active Problems (Last Reviewed 10/27/17 @ 09:21 by Babatunde Maria MD) AK on CKD stage III (Acute) H/O shoulder replacement (Resolved) Blood loss anemia (Resolved) Supratherapeutic INR (Resolved) The patient is a 67 year old M with history of coronary artery disease status post triple-vessel CABG in 1996, peripheral arterial disease status post bilateral common iliac artery stenting in about 1994, A. fib ablation in 2011 and atrial flutter ablation in 2015 was supposed to have lumbar back surgery in about 3-4 weeks therefore he went for preop labs. Preop labs shows elevated creatinine and BUN and therefore was sent to ER. In ED, his creatinine shows 3.56, BUN 103, PREVIOUS 1.74/62 in September 2017. Patient is on Lasix 40 mg and lisinopril 20 mg twice daily at home. Patient denies any change in the urine output, lower urinary tract symptoms, renal angle pain, fever or flulike symptoms or acute illness. Patient denies recent history of fluid loss including nausea, vomiting diarrhea or GI bleed. He is on Eliquis 5 mg twice daily for A. fib. H AND H 14.9/44. Platelet 1 54,000. of note, patient had TURP many years ago and his urine flow is good. 1. Acute kidney injury on CKD stage III probably related to medications, diuretic and RAMAKRISHNA inhibitor/cardiorenal disease: Patient is being admitted on regular MedSurg floor. IV fluid normal saline to correct the prerenal. Urine osmolarity, urine electrolytes and BUN ordered. Monitor intake and output and electrolytes. Nephrology consult. Hold nephrotoxic medications. 2. Cardiac disease: Coronary artery disease status post CABG, peripheral artery status post bilateral common iliac artery stenting, history of A. fib and atrial flutter ablation, mild to moderate carotid artery disease: Continue cardiac medications. EKG ordered. Patient had carotid Doppler in November 2017 and shows mild left and right internal carotid artery less than 50% and moderate disease in left distal common carotid, moderate disease in left external carotid and mild disease in the right external carotid. 2D echo in May 2016 shows EF 65% with normal left ventricle systolic function and no regional wall motion abnormality. Left atrium moderately enlarged. Normal right atrium. 1-2+ eccentric MR, 1-2+ TR, RVSP 34 mmHg. 3. Hypertension, dyslipidemia, obstructive sleep apnea on CPAP, morbid obesity: Home medication reconciliation done. 4. Multiple other comorbidities include chronic lumbar degenerative joint disease for which she is scheduled for surgery, anxiety and depression, rotator cuff tear of right shoulder status post right shoulder replacement and history of TURP: Multiple comorbidities complicates the present care and expect difficult and delay recovery This note was generated with [employer] dictation software. Every effort was made to ensure accuracy, however computerized transportation technician mistakes may persist. Code Visit Inpatient E AND M: 49823 Init Hosp L3 02/16/181958 <Electronically signed by Alhaji Smith MD> Date Alhaji Smith MD Cosigner Signature: Date (if applicable) CC: Jazz Rodas DO; Alhaji Smith MD Signed EMERGENCY DEPARTMENT Observed: 02/16/2018 Status: F Source: [place] SUMMARY 6:45 PM [facility] Medical Records Department [address] [place] [address] Emergency Department Summary 02/16/18 1723 MR#: [id number] Acct: [id number] Name: ALFRED DEUTSCH Rep #: [id number] : 1950 67 From: Charlie Lyles MD PCP: Jazz Rodas DO Status: REG ER - ER Visit Summary Date of Service: 02/16/18 Chief Complaint: Abnormal labs/elevated creatinine History of Present Illness: The patient is [...] issues in the past. He urinates a lot because he drinks a lot of water throughout the day. No dysuria or hematuria is noted. Physical Examination: Vital signs reviewed. HEENT exam unremarkable. Heart is regular rate and rhythm without murmurs. Lungs are clear to auscultation. Abdomen is [...] as to why his kidney function is increased. His glucose is normal even though he has a history of diabetes. Patient will be admitted to the hospital for further evaluation Treatment Plan: [] Disposition: Admit Impression: Acute kidney injury This note was generated with OKDJ[employer]fm dictation software. It may contain incorrect words, spelling, and punctuation that were not noted in review of the chart prior to signing ED Disposition - Plan for ED Patient: Chief Complaint: Abn Labs Referrals: Jazz Rodas, [Primary Care Provider] - What to do if you have Problems For any increased pain, shortness of breath, bleeding, nausea or vomiting, chest pain, or any unexpected problems, contact your Primary Care Provider. Call [facility] ([phone]) or report to the closest Emergency Room. Call 911 if necessary. 02/16/18 7263 <Electronically signed by Charlie Lyles MD> Date Charlie Lyles MD Cosigner Signature (If Indicated): Date CC: Jazz Rodas DO CBC W/DIFF, AUTOMATED Collected: 02/16/2018 Status: F Source: [place] 5:38 PM [facility] TYPE CODE TESTS RESULT OUT OF RANGE REFERENCE UNITS LAB L100.1000 4.4-11.0 K/mm3 Normal WBC 4.9 LAB L100.1200 4.6-6.2 M/mm3 Low RBC 4.46 LAB L100.1300 13.0-16.5 g/dl Normal HGB 14.9 LAB L100.1400 40-54 % Normal HCT 44.0 LAB L100.1500 80-94 fL High MCV 98.7 LAB L100.1600 27.0-32.0 pg High MCH 33.4 LAB L100.1700 32-36 g/gl Normal MCHC 33.9 LAB L100.1810 11.6-14.6 % Normal RDW CV 13.6 LAB L100.1820 35.1-43.9 fl High RDW SD 48.9 LAB L100.1900 150-450 K/mm3 Normal PLT 154 LAB L100.2000 6.2-12.0 fl Normal MPV 10.1 LAB L100.2100 47-70 % Normal NEUT% 61.9 LAB L100.2200 19-41 % Normal LY% 24.0 LAB L100.2300 0-10 % Normal MONO% 9.4 LAB L100.2400 0-5 % Normal EO% 4.5 LAB L100.2500 0-1 % Normal BASO% 0.2 LAB L100.2550 0.0-0.9 % Normal IM GRAN % 0.000 Result Comment: IG% - Immature Granulocytes (promyelocytes, myelocytes and metamyelocytes) > 1% indicates that a LEFT SHIFT is Present. LAB L100.2620 2.0-7.7 X10 3/uL Normal Absolute Neut 3.0 LAB L100.2720 0.83-4.51 X10 3/ul Normal Absolute Lymph 1.17 Performed By: #### L100.0100 #### [facility] [address] [place], [place], [address] BASIC METABOLIC Collected: 02/16/2018 Status: F Source: [place] PROFILE ([facility]) 5:38 PM [facility] TYPE CODE TESTS RESULT OUT OF RANGE REFERENCE UNITS LAB L501.0100 74-106 mg/dL Normal GLU 96 Result Comment: Please note revised GLUCOSE reference range effective 2017. LAB L501.1000 7-18 mg/dL High alert BUN 103 Result Comment: Critical Result(s) Called at: 18:23:59 02/16/2018 [facility]: [facility] LAB L501.1100 0.70-1.30 mg/dL CREAT,SERUM High 3.56 Result Comment: The validity of the calculated GFR AND GFRAA in patients over 70 years has not been determined. Clinical correlation is essential. LAB L501.1110 >60 mL/min Low EST GFR 18 Result Comment: Non- GFR Calc LAB L501.1115 >60 mL/min Low EST GFR - AA 22 Result Comment: GFR Calc LAB L501.1255 ml/min Normal Estimated CRCL 17.04 LAB L501.1300 10-20 RATIO High BUN/CRE 28.9 LAB L501.2200 8.5-10 mg/dL Normal .1 CA 8.9 LAB L501.5300 136-14 mmol/L Low 5 NA 134 LAB L501.5600 3.5-5. mmol/L Normal 1 K 4.4 LAB L501.5900 98-107 mmol/L Low CL 96 LAB L501.6100 21.0-3 mmol/L Normal 2.0 CO2 28.0 LAB L501.6200 5-15 Normal GAP 10 Performed By: #### L500.2500 #### [facility] [address] [place], [place], [address] URINALYSIS, COMPLETE Collected: 02/16/2018 Status: F Source: [place] 5:32 PM [facility] Order Comment: Order Date: 02/16/18 Has pt arrived? Y How was Urine Obtained? [place]GS[place] HAND TO SPECIFY TYPE CODE TESTS RESULT OUT OF RANGE REFERENCE UNITS LAB L400.3000 Yellow COLOR Normal Yellow LAB L400.3050 Clear Normal CLARITY Clear LAB L400.3200 Normal mg/dl Normal GLUCOSE, UR Normal LAB L400.3300 Negative mg/dL Normal BILIRUBIN URINE Negative LAB L400.3400 Negative mg/dl Normal KETONE UR Negative LAB L400.3465 1.002-1.030 Normal SP.GR. DIPSTX 1.015 LAB L400.3550 5.0 - 8.0 pH UR Normal 5.0 LAB L400.3600 Negative mg/dl PROT Normal DIPSTX Negative LAB L400.3700 Normal mg/dl Normal UROBILI Normal LAB L400.3750 Negative Normal NITRITE UR Negative LAB L400.3780 Negative /ul Normal OCCULT BLOOD-UR Negative LAB L400.3800 Negative /ul LEUK Normal ESTERASE Negative LAB L400.4050 0-5 /hpf WBC 0 Normal SEEN LAB L400.4100 0-5 /hpf 0 Normal RBC-UA SEEN LAB L400.4150 0-5 /hpf SQUAM 0 Normal EPI SEEN LAB L400.4300 None Seen /hpf 0 Normal BACTERIA SEEN LAB L400.4350 <or=2+ /hpf 0 Normal MUCUS, URINE SEEN Performed By: #### L400.0001 #### [facility] [place], [address] PROTEIN, URINE Collected: 02/16/2018 Status: F Source: [place] ([place]) 5:32 PM [facility] TYPE CODE TESTS RESULT OUT OF RANGE REFERENCE UNITS LAB L501.1930 <11.9 mg/dL Normal 7.0 PROTEIN,UR.R AN. Performed By: #### L501.1930 #### [facility] [place], [address] CREATININE, URINE Collected: 02/16/2018 Status: F Source: [place] 5:32 PM [facility] TYPE CODE TESTS RESULT OUT OF RANGE REFERENCE UNITS LAB L502.0300 NO RANGE EST. mg/dL Normal URINE 114.00 CREAT Performed By: #### L502.0300 #### [facility] [address] [place] [address]. [place], [address] URINE ELECTROLYTES- Collected: 02/16/2018 Status: F Source: [place] 5:32 PM [facility] TYPE CODE TESTS RESULT OUT OF RANGE REFERENCE UNITS LAB L501.5500 Not Establ. mmol/L Normal UR NA 38 LAB L501.5800 Not Establ. mmol/L Normal UR K 26.0 LAB L501.6000 Not Establ. mmol/L Normal UR CL 37 Performed By: #### L500.9400 #### [facility] [place], [address] UREA NITROGEN, URINE Collected: 02/16/2018 Status: F Source: [place] 5:32 PM [facility] TYPE CODE TESTS RESULT OUT OF RANGE REFERENCE UNITS LAB L502.0715 NO RANGE EST. mg/dL Normal URINE 672 UREA Performed By: #### L502.0715 #### [facility] [place], [address] OSMOLALITY, URINE Collected: 02/16/2018 Status: F Source: [place] 5:32 PM [facility] TYPE CODE TESTS RESULT OUT OF RANGE REFERENCE UNITS LAB L501.7400 mOsm/KG Normal 424 OSMOLALITY,U R Result Comment: OSMOLALITY URINE REFERENCE INTERVALS 24-hour Urine 300 - 900 mOsm/kg Random Urine 50 - 1400 mOsm/kg After 12 Hr fluid restriction >850 mOsm/kg Performed By: #### L501.7400 #### [facility] [address] [place], [address] CAROTID DUPLEX Observed: 11/09/2017 Status: F Source: [place] ULTRASOUND 3:16 PM [facility] [address] [place] [address] Carotid Duplex Ultrasound 11/09/17 1247 MR#: [id number] Acct: [id number] Name: ALFRED DEUTSCH Rep #: [id number] : 1950 67 From: Kaiser Awan MD Attending Dr: Babatunde Maria MD Status: REG CLI Ordering Dr: Babatunde Maria MD Date: 11/09/17 Location: CVS Sex: M C Admitted: Rt. Velocities/BP Lt. Velocities/BP Prox CCA 63/13 cm/sec. [...] 134/20 cm/sec. Prox ECA 254/16 cm/sec. Rt. Vert. 27/14 cm/sec. Lt. Vert. 53/9 cm/sec. Right [...] the left vertebral artery. Procedure Carotid Duplex 75709. The study was technically difficult. Exam performed in department. Interpretation Summary Mild irregular calcific plague at the proximal right internal carotid with <50% stenosis. Mild irregular calcific plague at the proximal left internal carotid with <50% stenosis. Moderate disease left distal common carotid Mild disease right external carotid Moderate disease left external carotid Patent and antegrade vertebrals bilaterally. Since 06/01/16 there is mild progression of stenosis involving the left distal common carotid and external carotid arteries. Ordering Physician: Babatunde Maria Referring Physician: Babatunde Maria 11/09/17 1516 Date Kaiser Awan MD CC: Babatunde Maria MD; Jazz Rodas DO Date Dictated: 11/09/17 1247 Date Transcribed: 11/09/17 1516 Instrument Lens Generator: Signed OBSOLETE Observed: 11/03/2017 Status: COMPLETED Source: [place] 12:00 AM [facility] REPOSITORY Refill (AGCARDPHRA) ALFRED DEUTSCH ([id number]) 1950 M Date Time Provider Department 11/03/17 ARAVIND ORTIZ During your visit today, we recorded the following information about you: Alice Baeza LPN 11/03/2017 2:51 PM Signed Pharmacy electronically requesting refills as follows: Pending Prescriptions Disp Refills ELIQUIS 5 MG TABLET 60 tablet 1 Sig: TAKE 1 TABLET BY MOUTH TWICE DAILY AMAYA: Yes Last seen in the office on 10/19/2016. Patient missed appointment on 02/02/2017. I called and spoke to and informed him of need for appointment. [facility] phone number given to patient. He states he will call and schedule appointment once he has schedule available. Please review and advise. Alice Baeza LPN Allergies As of Date: 11/03/2017 Noted Allergy Reaction ELAVIL (AMITRIPTYLINE) 10/19/2016 9 - Itching GABAPENTIN 10/19/2016 1 - Mental Status Change Date Reviewed: 10/19/2016 Reviewed by: Aravind Ortiz - Fully Assessed Reason for Visit: Refill Request [94] Order(s):ELIQUIS 5 mg tab(s)TAKE 1 TABLET BY MOUTH TWICE DAILYDisp: 60 tabletRfl: 1 Prescriptions as of 11/03/2017 Sig: ELIQUIS 5 MG TABLET TAKE 1 TABLET BY MOUTH TWICE * ATENOLOL 25 MG TABLET Take 25 mg by mouth once virgil* SERTRALINE 50 MG TABLET Take 25 mg by mouth once virgil* PANTOPRAZOLE 40 MG TABLET,DEL* Take 40 mg by mouth once virgil* CHOLECALCIFEROL (VITAMIN D3) * Take 5,000 Units by mouth onc* MULTI VIT-FLUORIDE ORAL Take by mouth. LISINOPRIL 20 MG TABLET Take 20 mg by mouth once virgil* MODAFINIL 200 MG TABLET Take 200 mg by mouth twice da* ASPIRIN 81 MG TABLET,DELAYED * Take 81 mg by mouth once virgil* FENOFIBRATE 54 MG TABLET Take 54 mg by mouth once virgil* ATORVASTATIN 40 MG TABLET Take 40 mg by mouth once virgil* FUROSEMIDE 40 MG TABLET Take 40 mg by mouth once virgil* Problem List As Of Date 11/03/2017 Noted Resolved Atrial fibrillation (HCC) [I48.91] 03/05/2016 CAD (coronary artery disease) [I25.10] PVD (peripheral vascular disease) (HCC) [I73.9] Tachycardia [R00.0] 03/05/2016 Hyperlipidemia [E78.5] HTN (hypertension) [I10] Obesity [E66.9] Atrial fibrillation, persistent (HCC) [I48.1] INVALID FOR* JD on CPAP [G47.33, Z99.89] INVALID FOR* Hx of CABG [Z95.1] INVALID FOR* Alcohol abuse [F10.10] INVALID FOR* Stenosis of left carotid artery [I65.22] INVALID FOR* Atrial fibrillation (HCC) [I48.91] Tachycardia [R00.0] Prescriptions ordered this encounter Disp Refills Start End ELIQUIS 5 MG TABLET 60 t* 1 11/03/2017 Cmt: Med-sync patient. If too soon, we will put new RX on hold for next cycle. Route: ORAL Sig: TAKE 1 TABLET BY MOUTH TWICE DAILY Medications Discontinued During This Encounter apixaban (ELIQUIS) 5 mg tab tab(s) 60 t* 11 11/02/2016 11/03/2017 Route: ORAL Sig: Take 1 tablet by mouth twice daily. Disc: Reason for discontinue is not on file. Encounter Status:Closed by ARAVIND ORTIZ MD on 11/03/17 CARDIOLOGY VISIT Observed: 10/27/2017 Status: F Source: [place] REPORT 9:35 AM [facility] [address] [place] [address] OFFICE VISIT Date of Service: 10/27/17 MR#: [id number] Acct: [id number] Name: ALFRED DEUTSCH Rep #: [id number] : 1950 Provider: Babatunde Maria MD Age/Sex: 66/M Location: [facility] Status: Signed HPI HPI Details: ALFRED DEUTSCH is a 66 M who presents to the office today for a cardiovascular follow-up. He has a history of coronary artery disease with bypass surgery in 1996. He had an BETHEA to the LAD, SVG to the circumflex and diagonal. He also had stents to his right and left iliac arteries. In 2011 he had a heart catheterization which demonstrated left main with 70% distal disease, LAD 30-40% mid stenosis, circumflex 80-90% stenosis, OM1 30% stenosis, patent LAD, diagonal and OM. In 2011 he had [...] no dizziness or diaphoresis no near syncope or syncope. Says that he has much more energy than before. You do remember he underwent stress testing in 2015 which did not demonstrate any evidence of ischemia. His physical exam today demonstrates clear lung toussaint regular rate and rhythm and no pedal edema. He does have bilateral carotid bruits. Echocardiogram in 2017 demonstrated an ejection fraction of 65%. Left ventricular systolic function is normal. Mild to moderate mitral insufficiency. Mild to moderate tricuspid insufficiency. Improvement in his EF was noted since his previous cardioversion. Ejection fraction at that time was 50%. 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 [Ecotrin] 81 mg PO QHS 01/22/15 [History Confirmed 10/27/17] Modafinil [Provigil] 200 mg PO BID 01/22/15 [History Confirmed 10/27/17] Multivitamins,Therapeutic [Multivitamin] 1 tab PO DAILY 01/22/15 [History Confirmed 10/27/17] Sertraline HCl [Zoloft] 50 mg PO DAILY 02/13/16 [History Confirmed 10/27/17] Cholecalciferol (Vitamin D3) [Vitamin D3] 5,000 unit PO DAILY 03/15/17 [History Confirmed 10/27/17] apixaban 5 mg tablet PO 30 Days #60 04/14/17 [History Confirmed 10/27/17] pantoprazole 40 mg tablet,delayed release PO 30 Days #30 04/14/17 [History Confirmed 10/27/17] fenofibrate 54 mg tablet 54 mg PO QHS #90 tab 06/27/17 [Rx Confirmed 10/27/17] atorvastatin 40 mg tablet 40 mg PO DAILY #90 tab 07/04/17 [Rx Confirmed 10/27/17] furosemide 40 mg tablet 40 mg PO [...] carotid artery (Chronic) Atherosclerotic heart disease of [place] coronary artery without angina pectoris (Chronic) Obesity (BMI 30-39.9) (Chronic) Anxiety and depression (Chronic) Atrial fibrillation and flutter (Chronic) PAD (peripheral artery disease) (Chronic) Surgical History H/O shoulder replacement (Resolved) History of left heart catheterization (LHC) (Chronic) [...] Const Const: Negative for fatigue, weakness, night sweats, excessive sweating, frequent falls, headache(s) or daytime sleepiness Eyes Eyes: Negative for loss of peripheral vision, transient loss of vision, blind spots, double vision or blurry vision ENT ENT: Negative for headache(s), dizziness, balance problems, Nosebleed/epistaxis, tongue swelling or lip swelling Cardio Chest Pain: No Palpitations: No Edema: None Muscle aches with walking: None Resp Respiratory: Positive for SOB with activity; negative for [...] blurry vision or lack of coordination Rusty Hematologic/Lymphatic: Negative for easy bruising or easy bleeding Endo Endo: Negative for fatigue, excessive sweating, cold intolerance, heat intolerance, increased thirst/drinking or hair loss Psych Psych: Negative for anxiety or depression Allergy Allergy/Immunology: Negative for throat swelling, Negative for tongue swelling, Negative for hives, Negative for rash, Negative for lip swelling Cardiology Exam Const Appearance: cooperative, healthy appearing, well developed, well groomed and no acute distress Nutritional Appearance: well nourished and average body habitus Orientation: alert, awake and oriented x3 Head Head: normal to inspection, normocephalic and atraumatic Ears: hearing grossly normal bilaterally and external ears normal Nose: external nose normal, nasal mucous membranes and turbinates normal, nares normal, septum normal, [...] normal inspection of the chest, symmetric chest movement and normal respiratory effort Auscultation: Bilateral: Clear to Auscultation Cardio Palpation: normal PMI Rate: regular rate Rhythm: regular rhythm Heart sounds: S1 normal, S2 normal and normal, physiologic split S2; negative rub, gallop or murmur GI GI: normal to inspection, soft, no hepatosplenomegaly and bowel sounds present Neuro General: alert, awake, oriented x3, no focal sensory deficit, gait normal and moves all extremities Skin Skin: no rashes or lesions noted Extremities Pulses: Normal: Right Femoral Pulse, Left Femoral Pulse, Right Dorsalis Pedis Pulse, Left Dorsalis Pedis Pulse, Right Posterior Tibial Pulse, Left Posterior Tibial Pulse, Right Radial Pulse, Left Radial Pulse Lower Extremity Edema: None: Bilateral Musculoskel Musculoskeletal: No joint tenderness Psych Psychological: normal affect Assessment AND Plan 1. Atherosclerosis of coronary artery bypass graft of [place] heart without angina pectoris I25.810 Plan He is status post carotid bypass surgery doing well he did have a stress test in 2016 which was negative for ischemia. He tells me that he may be needing back surgery and at this time based on the above findings I do not see any contraindication to him undergoing surgery. 2. Essential hypertension I10 Plan His blood pressure appears to be under excellent control on the current medical therapy no changes will be made at this particular time. 3. Atrial fibrillation and flutter I48.91; I48.92 s/p ablation x 2 (flutter and fibrillation) Plan He does have a history of atrial fibrillation status post ablation he is maintaining sinus rhythm and is also tolerating the Eliquis without any evidence of bleeding. 4. Occlusion and stenosis of left carotid artery I65.22 Plan He does have a history of carotid artery stenosis. And also has carotid bruit. His carotid ultrasound that was performed last year demonstrated mild to moderate range we will continue to monitor and I will suggest that we obtain a repeat carotid ultrasound. Orders Orders: 5. Pure hypercholesterolemia E78.00; E78.0 Plan He does have a history of hyperlipidemia on statin. His most recent lipid profile demonstrated total cholesterol 210 HDL 35 and LDL which could not be calculated his triglycerides were elevated at 472. Aggressive risk factor modification has been emphasized. Will need to continue to check him for the metabolic syndrome. Thank you for allowing me to participate in the care of your patient. 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 transplanted heart: [place] heart Essential hypertension I10 Hypertension type: essential hypertension Atrial fibrillation and flutter I48.91; I48.92 Occlusion and stenosis of left carotid artery I65.22 Pure hypercholesterolemia E78.00; E78.0 Hyperlipidemia type: pure hypercholesterolemia Coding Level of Care Code Off vis,est,level 4 Diagnoses Atherosclerosis of coronary artery bypass graft of [place] heart without angina pectoris I25.810 [place] vs. transplanted heart: [place] heart Essential hypertension I10 Hypertension type: essential hypertension Atrial fibrillation and flutter I48.91; I48.92 Occlusion and stenosis of left carotid artery I65.22 Pure hypercholesterolemia E78.00; E78.0 Hyperlipidemia type: pure hypercholesterolemia 10/27/17 0935 <Electronically signed by Babatunde Maria MD> Date Babatunde Maria MD Cosign Signature: Date (if applicable) CC: Jazz Rodas DO SPINE LUMBAR Observed: 10/22/2017 Status: F Source: [place] (ROUTINE) 8:57 AM [facility] Imaging Services [address] [place] [id number] Spine Lumbar (Routine) MR#: [id number] Acct: [id number] Name: ALFRED DEUTSCH Rep #: [id number] : 1950 M 66 From: Roberto Lunsford MD PCP: Jazz Rodas DO Status: REG CLI Study: Spine Lumbar (Routine) Date of Exam: 10/22/17 Exam# [id number] Ordering Dr: Brooklynn Ryan PATROL JUDGE-C STUDY: MRI LUMBAR SPINE WITHOUT CONTRAST REASON FOR EXAM: Male, 66 years old. Spinal stenosis, low back pain and difficulty walking x20 years. TECHNIQUE: Standardized fat and water weighted pulse sequences were obtained in the sagittal and axial planes. COMPARISON: MRI lumbar spine 06/13/2014. CT lumbar spine without contrast 05/02/2015. FINDINGS: Partial sacralization of L5 is confirmed on CT of the lumbar spine dated 05/02/2015. T10-T11: (Sagittal only). Normal endplates. Normal disc height, hydration and morphology. Normal central canal and bilateral intervertebral neural foramina. T11-T12: (Sagittal only). Normal endplates. Normal disc height, hydration and morphology. Normal central canal and bilateral intervertebral neural foramina. T12-L1: (Sagittal only). Normal endplates. Normal disc height, hydration and morphology. Normal central canal and bilateral intervertebral neural foramina. Normal lumbar lordosis. There is no substantial scoliosis. Normal conus medullaris that terminates at the upper T12 vertebral body level. L1-2: Anterior marginal spurs. Schmorl's node in the L1 inferior endplate. Moderate disc space height narrowing. Anterior disc protrusion in between the anterior marginal spurs. No extruded disc fragment. Normal central canal and bilateral lateral recesses. Mild left degenerative facet arthropathy. Normal right facet joint. Normal bilateral intervertebral neural foramina. L2-3: Schmorl's node in the L2 inferior endplate. Normal L3 superior endplate. Moderate disc space height narrowing with small posterior bulging disc. Mild central canal stenosis secondary to developmentally short pedicles. The AP canal diameter is 10 mm. Moderate right degenerative facet arthropathy. Mild left degenerative facet arthropathy. Normal bilateral intervertebral neural foramina. L3-4: Moderate disc space height narrowing with moderate loss of disc hydration. Degenerative vacuum phenomenon. No extruded disc fragment. Moderate central canal stenosis secondary to developmentally short pedicles and dorsal epidural lipomatosis. The AP canal diameter is 8.5 mm. Normal bilateral lateral recesses. Moderate bilateral degenerative facet arthropathy. Mild stenosis of the bilateral intervertebral neural foramina. L4-5: [...] recesses. Normal facet joints. Normal bilateral intervertebral neural foramina. Normal visualized sacral ala. Normal visualized paraspinous soft tissue structures. MRI/Spine Lumbar (Routine) IMPRESSION: 1. No MRI evidence of lumbar extruded disc fragment or nerve root displacement. 2. Partial sacralization of L5 accounting for hypoplastic L5-S1 disc. 3. Mild degenerative anterolisthesis of L4 on L5 with moderate central canal stenosis and pronounced bilateral degenerative facet arthropathy. 4. Moderate central canal stenosis at L3-L4 disc level secondary to developmentally short pedicles and dorsal epidural lipomatosis. 5. Mild central canal stenosis at L2-L3 disc level with small posterior bulging disc and moderate right degenerative facet arthropathy. 6. Moderate L1-L2 disc space height narrowing with mild left degenerative facet arthropathy. 7. No significant interval changes when compared to 06/13/[address] of the lumbar spine dated 05/02/2015. Electronically Signed: Roberto Lunsford MD at 15:05 EDT , Service support , CC: Brooklynn Ryan; Jazz Rodas DO Instrument Lens Generator: Signed LIVER PROFILE Collected: 10/20/2017 Status: F Source: [place] 7:06 AM [facility] TYPE CODE TESTS RESULT OUT OF RANGE REFERENCE UNITS LAB L501.1500 6.4-8.2 g/dL Normal T PROT 6.8 LAB L501.1800 3.2-5.0 g/dL Normal ALB 3.4 LAB L501.1950 2.2-4.2 g/dL Normal GLOB 3.4 LAB L501.4100 15-37 U/L Normal AST 23 LAB L501.4305 45-117 U/L Normal ALK P 58 LAB L501.4405 16-61 U/L Normal ALT 34 LAB L501.4600 0.20-1.00 mg/dL Normal T BILI 0.30 LAB L501.4700 0.00-0.30 mg/dL Normal D BILI 0.07 Performed By: #### L500.3400, L500.4100 #### [facility] [address] [place], [place], [address] LIPID PROFILE Collected: 10/20/2017 Status: F Source: [place] 7:06 AM [facility] TYPE CODE TESTS RESULT OUT OF RANGE REFERENCE UNITS LAB L501.4900 200 mg/dL High CHOL 210 Result Comment: <200 mg/dL Desirable 200-240 mg/dL Borderline >240 mg/dL High Risk LAB L501.5000 mg/dL High TRIG 472 Result Comment: The drugs N-Acetylcysteine and Metamizole may falsely depress this assay. TRIGLYCERIDE IS GREATER THAN 400 mg/dL. LDL RESULT IS INVALID AND WILL NOT BE REPORTED. Serum Triglycerides Reference Interval Normal <150 mg/dL Borderline high 150 - 199 mg/dL High 200 - 499 mg/dL Very High > or = 500 mg/dL LAB L501.6400 mg/dL Low HDL 35 Result Comment: The drugs N-Acetylcysteine and Metamizole may falsely depress this assay. Reference Range HDL <40 mg/dL Low HDL Cholesterol HDL >or= 60 mg/dL High HDL Cholesterol LAB L501.6500 0-130 mg/dL Test Normal not performed LDL LAB L501.6600 5-40 mg/dL Test Normal not performed VLDL Performed By: #### L500.3400, L500.4100 #### [facility] [address] [place], [place], [address] CBC W/DIFF, AUTOMATED Collected: 09/28/2017 Status: F Source: [place] 7:19 AM [facility] [place] TYPE CODE TESTS RESULT OUT OF RANGE REFERENCE UNITS LAB L100.1000 4.4-11.0 K/mm3 Normal WBC 5.6 LAB L100.1200 4.6-6.2 M/mm3 Low RBC 4.25 LAB L100.1300 13.0-16.5 g/dl Normal HGB 14.1 LAB L100.1400 40-54 % Normal HCT 43.3 LAB L100.1500 80-94 fL High MCV 101.9 LAB L100.1600 27.0-32.0 pg High MCH 33.2 LAB L100.1700 32-36 g/gl Normal MCHC 32.6 LAB L100.1810 11.6-14.6 % Normal RDW CV 14.3 LAB L100.1820 35.1-43.9 fl High RDW SD 52.8 LAB L100.1900 150-450 K/mm3 Normal PLT 159 LAB L100.2000 6.2-12.0 fl Normal MPV 9.6 LAB L100.2100 47-70 % Normal NEUT% 61.7 LAB L100.2200 19-41 % Normal LY% 24.8 LAB L100.2300 0-10 % Normal MONO% 9.1 LAB L100.2400 0-5 % Normal EO% 3.0 LAB L100.2500 0-1 % Normal BASO% 0.5 LAB L100.2550 0.0-0.9 % Normal IM GRAN % 0.900 Result Comment: IG% - Immature Granulocytes (promyelocytes, myelocytes and metamyelocytes) > 1% indicates that a LEFT SHIFT is Present. LAB L100.2620 2.0-7.7 X10 3/uL Normal Absolute Neut 3.5 LAB L100.2720 0.83-4.51 X10 3/ul Normal Absolute Lymph 1.39 Performed By: #### L100.0100 #### [facility] [address] [place], [place], [address] URINALYSIS, COMPLETE Collected: 09/28/2017 Status: F Source: [place] 7:19 AM [facility] [place] Order Comment: How was Urine Obtained? CLEAN CATCH TYPE CODE TESTS RESULT OUT OF RANGE REFERENCE UNITS LAB L400.3000 Yellow COLOR Normal Yellow LAB L400.3050 Clear Normal CLARITY Clear LAB L400.3200 Normal mg/dl Normal GLUCOSE, UR Normal LAB L400.3300 Negative mg/dL Normal BILIRUBIN URINE Negative LAB L400.3400 Negative mg/dl Normal KETONE UR Negative LAB L400.3465 1.002-1.030 Normal SP.GR. DIPSTX 1.020 LAB L400.3550 5.0 - 8.0 pH UR Normal 6.0 LAB L400.3600 Negative mg/dl PROT Normal DIPSTX Negative LAB L400.3700 Normal mg/dl Normal UROBILI Normal LAB L400.3750 Negative Normal NITRITE UR Negative LAB L400.3780 Negative /ul Normal OCCULT BLOOD-UR Negative LAB L400.3800 Negative /ul LEUK Normal ESTERASE Negative LAB L400.4050 0-5 /hpf WBC 0 Normal SEEN LAB L400.4100 0-5 /hpf 0 Normal RBC-UA SEEN LAB L400.4150 0-5 /hpf SQUAM Normal EPI 0-5 SEEN LAB L400.4300 None Seen /hpf 0 Normal BACTERIA SEEN LAB L400.4350 <or=2+ /hpf 0 Normal MUCUS, URINE SEEN Performed By: #### L400.0001 #### [facility] [address] [place], [address] MICROALB:CREAT Collected: 09/28/2017 Status: F [facility] [place] [place] TYPE CODE TESTS RESULT OUT OF RANGE REFERENCE UNITS LAB L501.1200 NO RANGE EST. mg/dL Normal UR CREAT 84.70 LAB L502.0500 NO RANGE EST. mg/L Normal 13.4 MICROALBUMIN ,UR LAB L502.0600 <30 mg/g CRE mg/g CRE Normal 15.8 MALB:CREAT Performed By: #### L502.0250 #### [facility] [address] [facility] [place], [place], [address] COMPREHENSIVE METABOLIC Collected: 09/28/2017 Status: F Source: [facility] 7:19 AM [facility] [place] TYPE CODE TESTS RESULT OUT OF RANGE REFERENCE UNITS LAB L501.0100 74-106 mg/dL High GLU 111 Result Comment: Fasting Glucose result from 100 to 125 mg/dL suggests IMPAIRED HOMEOSTASIS per A.D.A. criteria. Please note revised GLUCOSE reference range effective 2017. LAB L501.1000 7-18 mg/dL High BUN 62 LAB L501.1100 0.70-1.30 mg/dL High CREAT,SERUM 1.74 Result Comment: The validity of the calculated GFR AND GFRAA in patients over 70 years has not been determined. Clinical correlation is essential. LAB L501.1110 >60 mL/min Low EST GFR 42 Result Comment: Non- GFR Calc LAB L501.1115 >60 mL/min Low EST GFR - AA 50 Result Comment: GFR Calc LAB L501.1300 10-20 RATIO High BUN/CRE 35.6 LAB L501.1500 6.4-8.2 g/dL T Normal PROT 7.0 LAB L501.1800 3.2-5.0 g/dL Normal ALB 3.3 LAB L501.1950 2.2-4.2 g/dL Normal GLOB 3.7 LAB L501.2000 0.9-2.4 RATIO Normal A/G 0.9 LAB L501.2200 8.5-10.1 mg/dL CA Normal 9.2 LAB L501.4100 15-37 U/L Normal AST 23 LAB L501.4305 45-117 U/L Normal ALK P 53 LAB L501.4405 16-61 U/L Normal ALT 34 LAB L501.4600 0.20-1.00 mg/dL T Normal BILI 0.20 LAB L501.5300 136-145 mmol/L NA Normal 145 LAB L501.5600 3.5-5.1 mmol/L K Normal 3.9 LAB L501.5900 98-107 mmol/L CL Normal 103 LAB L501.6100 21.0-32.0 mmol/L Normal CO2 29.0 LAB L501.6200 5-15 Normal GAP 13 Performed By: #### L500.4050, L500.4100, L501.9520 #### [facility] [address] [place], [place], [address] LIPID PROFILE Collected: 09/28/2017 Status: F Source: [place] 7:19 AM [facility] [place] TYPE CODE TESTS RESULT OUT OF RANGE REFERENCE UNITS LAB L501.4900 200 mg/dL High CHOL 245 Result Comment: <200 mg/dL Desirable 200-240 mg/dL Borderline >240 mg/dL High Risk LAB L501.5000 mg/dL High TRIG 571 Result Comment: The drugs N-Acetylcysteine and Metamizole may falsely depress this assay. TRIGLYCERIDE IS GREATER THAN 400 mg/dL. LDL RESULT IS INVALID AND WILL NOT BE REPORTED. Serum Triglycerides Reference Interval Normal <150 mg/dL Borderline high 150 - 199 mg/dL High 200 - 499 mg/dL Very High > or = 500 mg/dL LAB L501.6400 mg/dL Normal HDL 41 Result Comment: The drugs N-Acetylcysteine and Metamizole may falsely depress this assay. Reference Range HDL <40 mg/dL Low HDL Cholesterol HDL >or= 60 mg/dL High HDL Cholesterol LAB L501.6500 0-130 mg/dL Test Normal not performed LDL LAB L501.6600 5-40 mg/dL Test Normal not performed VLDL Performed By: #### L500.4050, L500.4100, L501.9520 #### [facility] [address] [place], [address] THYROID STIM HORMONE Collected: 09/28/2017 Status: F Source: [place] ([place]) 7:19 AM [facility] [place] TYPE CODE TESTS RESULT OUT OF RANGE REFERENCE UNITS LAB L501.9520 0.358-3.74 uIU/mL Normal TSH 1.82 Performed By: #### L500.4050, L500.4100, L501.9520 #### [facility] [address] [place], [address] VITAMIN B12 Collected: 09/28/2017 Status: F Source: [place] 7:19 AM [facility] [place] TYPE CODE TESTS RESULT OUT OF RANGE REFERENCE UNITS LAB L503.0105 211-911 pg/mL Normal Vitamin B12 353 Performed By: #### L503.0105, L506.1000 #### [facility] [address] [facility] [place], [address] VITAMIN D,25 HYDROXY Collected: 09/28/2017 Status: F Source: [place] 7:19 AM [facility] [place] TYPE CODE TESTS RESULT OUT OF REFERENCE UNITS RANGE LAB L506.1000 29.95-100.01 ng/mL Low Vitamin D 24.7 25-OH Result Comment: Vitamin D 25(OH) Status Range Deficiency <20 ng/mL (50nmol/L) Insuffciency 20 - 30 ng/mL (50 - 75 nmol/L) Sufficiency 30 - 100 ng/mL (75 - 250 nmol/L) Toxicity >100 ng/mL (>250 nmol/L) Performed By: #### L503.0105, L506.1000 #### [facility] [address] [place], [address] ALLERGIES ALLERGIES DATE TYPE / CODE NAME / CODE REACTION SEVERITY SOURCE 02/28/2018 Drug warfarin/[id number] very Unknown [place] Allergy/416 (RXNORM) sensitive, Community 740819([facility]R [facility] ED CT) GI bleed Repository 02/28/2018 Drug gabapentin/[id number] Other Unknown [place] Allergy/416 15(RXNORM) Community 952608([facility] ED CT) Repository 10/19/2016 DRUG AMITRIPTYLINE ITCHING [address] 170707(SN Repository ED CT) 10/19/2016 DRUG GABAPENTIN Mental Chg [address] 344202(SNOM Repository ED CT) ENCOUNTERS ENCOUNTERS ADMIT/DISCHARGE ACCOUNT ADMITTING ENCOUNTER LOCATION SOURCE NUMBER CLASS 05/03/2018/05/03/19 [id number] Ambulatory [address] Repository 05/01/2018/05/02/19 [id number] Ambulatory [address] Repository 05/01/2018 [id number] [facility] ing:LAB.FUTUR Repository E 04/28/2018/05/01/19 [id number] Ambulatory [address] Repository 04/27/2018 [id number] [facility] ing:LAB Repository 04/26/2018 1107 Ambulatory Building:[facility] [place] Practices Repository 04/26/2018/04/26/19 [id number] Ambulatory [address] Repository 04/19/2018/04/20/19 [id number] Ambulatory [address] Repository 04/17/2018/04/18/19 [id number] Ambulatory [address] Repository 04/14/2018/04/17/19 [id number] Ambulatory [address] Repository 04/12/2018/04/13/19 [id number] Ambulatory [address] Repository 04/07/2018/04/10/20 [id number] Ambulatory [address] Repository 02/28/2018 [id number] Ambulatory [facility] Hospital ing:POLAB3 Repository 02/28/2018/02/29/20 [id number] Ambulatory BMSBuilding:B [place] 18 [facility] Repository 02/23/2018 [id number] Ambulatory [facility] Hospital ing:LAB Repository 02/20/2018/02/21/20 [id number] Ambulatory BMSBuilding:B [place] 18 [facility] Repository 02/16/2018/02/19/20 [id number] [facility], Inpatient Alejandro [place] 18 Alhaji Encounter [facility] ing:BX4Sojs: Repository JA171Jvz: 1 02/16/2018 [id number] Luis, Ambulatory BMSBuilding:B [place] [facility] Repository 02/16/2018 [id number] [facility], Ambulatory BMSBuilding:B Ale[place]andro Alhaji [facility] Repository 02/16/2018 [id number] [facility], Ambulatory BMSBuilding:B [place] [facility] Repository 02/16/2018 [id number] Ambulatory BMSBuilding:W Alejandro [facility] Repository 11/09/2017 [id number] Ambulatory [facility] Hospital ing:[facility] Repository 11/09/2017 [id number] Ambulatory BMSBuilding:B [place] [facility] Repository 10/27/2017/10/28/19 [id number] Ambulatory BMSBuilding:B [place] 18 [facility] Repository 10/22/2017 [id number] Ambulatory [facility] Hospital ing:MRI Repository 10/20/2017 [id number] Ambulatory [facility] Hospital ing:LAB Repository 09/28/2017 [id number] Ambulatory [facility] Hospital ing:LAB Repository PAYERS PAYERS ENCOUNTER GUARANTOR PAYER SUBSCRIBER SOURCE 05/01/2018 ALFRED Ho Primary ALFRED Allen [id number] E Insurance:MEDICARE [place]: [facility] PART A BPolicy Number: [id number] [id number] Repository [address]Iux: (330) Date:2018-05-019009 () 05/01/2018 Secondary ALFRED E [place] Insurance:HUMANA [place]OB: [facility] [id number] Hospital Number: Repository [id number] Date:8214-00-76DT[address] [address]JX: 05/01/2018 Tertiary NOT GIVENUNK [place] Insurance:SELF PAY [facility] Number: Effective Repository Date:2018-05-01 04/27/2018 ALFRED E Primary ALFRED E [place] [id number] E Insurance:MEDICARE [place]: [facility] PART A BPolicy Number: [id number], [place] [id number] Repository [address]Rps: 330) Date:2018-04-276759 () 04/27/2018 Secondary ALFRED E [place] Insurance:HUMANA [place]OB: [facility] [id number] Hospital Number: Repository [id number] Date:7247-39-50WR[address] [address]LJ: 04/27/2018 Tertiary NOT GIVENUNK [place] Insurance:SELF PAY [facility] Number: Effective Repository Date:2018-04-27 04/26/2018 Alfred E Primary Alfred E OHIP Practices [place]: Insurance:MedicarePoli [place]: Repository E cy Number: [id number] Manny [id number] E [place], [place] Date:5621-79-86PwgvCold [place], [place] [address]Fre: (330) Name:CPO Mcgee [address]Pqw: [address], [place] [phone] () (HP)Tel: [phone]: () [phone] 04/26/2018 Secondary Alfred E OHIP Practices Insurance:Humana/Suppl [place]: Repository [facility] [id number] Number: Ruperto Vázquez [id number] [place], [place] Date:4518-37-33Giob [address]74[address]Dav: (330) Name:[facility] Arely Lopez3163 (HP) [address] [place] [address] 28183VU: 04/26/2018 Tertiary Alfred E OHIP Practices Insurance:Medical [place]DOB: Repository [facility] [id number] Number: Ruperto Vázquez [id number] St[place], [place] Date: 6243-39-98Bypn [address]40[address]Kca: (330) Name:[place] [address] () [address] [place] [address] [id number]: 04/26/2018 Tertiary Alfred E OHIP Practices Insurance:Medical [place]DOB: Repository [facility] [id number] Number: Ruperto Vázquez [id number], [place] Date:2006-04-11 [address]Fck: (892) 3937-31-74Tbfl [phone] () Name:[address] [id number]: 02/28/2018 ALFRED E Primary ALFRED E [place] [id number] E Insurance:MEDICARE [place]OB: [facility] PART A olic Number: [id number], [place] [id number] Repository [address]Cst: (330) Date:2018-02-28 [phone] (HP) 02/28/2018 Secondary ALFRED E [place] Insurance:HUMANA [place]OB: [facility] [id number] Hospital Number: Repository [id number] Date:2324-34-04CY[address] [address]AQ: 02/28/2018 Tertiary NOT GIVENUNK [place] Insurance:SELF PAY [facility] Number: Effective Repository Date:2018-02-28 02/28/2018 ALFRED E Primary ALFRED E [place] [id number] E Insurance:MEDICARE [place]OB: Community MAN[place] PART A BPolicy Number: [id number], [place] [id number] Repository [address]Tnh: 330) Date:2018-02-20 [phone] () 02/28/2018 Secondary ALFRED E [place] Insurance:HUMANA [place]OB: [facility] [id number] Hospital Number: Repository [id number] Date:5021-08-15BD [address] [address]KA: 02/28/2018 Tertiary NOT GIVENUNK [place] Insurance:SELF PAY [facility] Number: Effective Repository Date:2018-02-28 02/23/2018 ALFRED E Primary ALFRED E [place] [id number] E Insurance:MEDICARE [place]OB: [facility] MANNY PART A BPolicy Number: [id number], [place] [id number] Repository [address]Mns: 330) Date:2018-02-234600 () 02/23/2018 Secondary ALFRED E [place] Insurance:HUMANA [place]OB: [facility] [id number] Hospital Number: Repository [id number] Date:1447-13-85YD [address] [address]VL: 02/23/2018 Tertiary NOT GIVENUNK [place] Insurance:SELF PAY [facility] Number: Effective Repository Date:2018-02-23 02/20/2018 ALFRED E Primary ALFRED E [place] [id number] E Insurance:MEDICARE [place]OB: [facility] MANNY PART A BPolicy Number: [id number], [place] [id number] Repository [address]Pzs: 330) Date:2018-02-20 [phone] (HP) 02/20/2018 Secondary ALFRED E [place] Insurance:HUMANA [place]DOB: [facility] [id number] Hospital Number: Repository [id number] Date:7479-84-84MU [address] [place] [address]XJ: 02/20/2018 Tertiary NOT GIVENUNK [place] Insurance:SELF PAY [facility] Number: Effective Repository Date:2018-02-20 02/16/2018 ALFRED E Primary ALFRED E [place] [id number] E Insurance:MEDICARE [place]OB: Community [place] PART A BPolicy Number: [id number], [place] [id number] Repository [address]Ize: (121) Date:2018-02-168745 () 02/16/2018 Secondary ALFRED E [place] Insurance:HUMANA [place]OB: [facility] [id number] Hospital Number: Repository [id number] Date:7927-43-49ZC [address] [place] [address]EU: 02/16/2018 Tertiary NOT GIVENUNK [place] Insurance:SELF PAY [facility] Number: Effective Repository Date:2018-02-16 02/16/2018 ALFRED E Primary ALFRED E [place] [id number] E Insurance:MEDICARE [place]OB: Community [place] PART A BPolicy Number: [id number], [place] [id number] Repository [address]Uyn: (547) Date:2018-02-167886 () 02/16/2018 Secondary ALFRED E [place] Insurance:HUMANA [place]OB: [facility] [id number] Hospital Number: Repository [id number] Date:0229-31-63RK [address] [place] [address]YJ: 02/16/2018 Tertiary NOT GIVENUNK [place] Insurance:SELF PAY [facility] Number: Effective Repository Date:2018-02-16 02/16/2018 ALFRED E Primary ALFRED E [place] [id number] E Insurance:MEDICARE [place]OB: Community [place] PART A BPolicy Number: [id number], [place] [id number] Repository [address]Hzv: (537) Date:2018-02-169065 () 02/16/2018 Secondary ALFRED E [place] Insurance:HUMANA [place]OB: [facility] [id number] Hospital Number: Repository [id number] Date:0532-55-32YS [address] [place] [address]BT: 02/16/2018 Tertiary NOT GIVENUNK [place] Insurance:SELF PAY [facility] Hospital Number: Effective Repository Date:2018-02-16 02/16/2018 ALFRED E Primary ALFRED E [place] [id number] E Insurance:MEDICARE [place]OB: [facility] MANNY PART A olicy Number: [id number], [place] [id number] Repository [address]Onn: 330) Date:2018-02-168177 () 02/16/2018 Secondary ALFRED E [place] Insurance:HUMANA [place]OB: [facility] [id number] Hospital Number: Repository [id number] Date:7026-08-26FK [address] [place] [address]KS: 02/16/2018 Tertiary NOT GIVENUNK [place] Insurance:SELF PAY [facility] Hospital Number: Effective Repository Date:2018-02-16 02/16/2018 ALFRED E Primary ALFRED E [place] [id number] E Insurance:MEDICARE [place]OB: [facility] MANNY PART A BPolicy Number: [id number], [place] [id number] Repository [address]Rmr: 330) Date:2018-02-169375 () 02/16/2018 Secondary ALFRED E [place] Insurance:HUMANA [place]OB: [facility] [id number] Hospital Number: Repository [id number] Date:9668-37-26AG [address] [address]ZQ: 02/16/2018 Tertiary NOT GIVENUNK [place] Insurance:SELF PAY [facility] Hospital Number: Effective Repository Date:2018-02-16 11/09/2017 ALFRED E Primary ALFRED E [place] [id number] E Insurance:MEDICARE [place]: Community [place] PART A BPolicy Number: [id number], [place] [id number] Repository [address]Mur: 330) Date:2017-10-27-2608 () 11/09/2017 Secondary ALFRED E [place] Insurance:HUMANA [place]DOB: [facility] [id number] Hospital Number: Repository [id number] Date:9029-01-21EO[address] [address]HF: 11/09/2017 Tertiary NOT GIVENUNK [place] Insurance:SELF PAY [facility] Number: Effective Repository Date:2017-10-27 11/09/2017 ALFRED E Primary ALFRED E [place] [id number] E Insurance:MEDICARE [place]OB: [facility] MANNY PART A BPolicy Number: [id number], [place] [id number] Repository [address]Aax: 330) Date:2017-10-273168 () 11/09/2017 Secondary ALFRED E [place] Insurance:HUMANA [place]DOB: [facility] [id number] Hospital Number: Repository [id number] Date:5440-49-72PX[address] [address]QK: 11/09/2017 Tertiary NOT GIVENUNK [place] Insurance:SELF PAY [facility] Number: Effective Repository Date:2017-11-09 10/27/2017 ALFRED E Primary ALFRED E [place] [id number] E Insurance:MEDICARE [place]OB: [facility] MANNY PART A BPolicy Number: [id number], [place] [id number] Repository [address]Opc: 330) Date:2017-04-144571 () 10/27/2017 Secondary ALFRED E [place] Insurance:HUMANA [place]DOB: [facility] [id number] Hospital Number: Repository [id number] Date:5727-47-46UU [address] [place] [address]IK: 10/27/2017 Tertiary NOT GIVENUNK [place] Insurance:SELF PAY [facility] Number: Effective Repository Date:2017-10-27 10/22/2017 ALFRED E Primary ALFRED E [place] [id number] E Insurance:MEDICARE [place]OB: Community [place] PART A BPolicy Number: [id number], [place] [id number] Repository [address]Uhe: (154) Date:2017-10-194467 () 10/22/2017 Secondary ALFRED E [place] Insurance:HUMANA [place]OB: [facility] [id number] Hospital Number: Repository [id number] Date:0832-82-77HI[address] [address]NS: 10/22/2017 Tertiary NOT GIVENUNK [place] Insurance:SELF PAY [facility] Number: Effective Repository Date:2017-10-19 10/20/2017 ALFRED E Primary ALFRED E [place] [id number] E Insurance:MEDICARE [place]: Community [place] PART A BPolicy Number: [id number], [place] [id number] Repository [address]Oei: (261) Date:2017-10-20 [phone] () 10/20/2017 Secondary ALFRED E [place] Insurance:HUMANA [place]OB: [facility] [id number] Hospital Number: Repository [id number] Date:6148-12-83XR [address] [place] [address]GK: 10/20/2017 Tertiary NOT GIVENUNK [place] Insurance:SELF PAY [facility] Number: Effective Repository Date:2017-10-20 09/28/2017 ALFRED E Primary ALFRED E [place] [id number] E Insurance:MEDICARE [place]OB: Community [place] PART A BPolicy Number: [id number], [place] [id number] Repository [address]Ryo: (330) Date:2017-09-28 [phone] (HP) 09/28/2017 Secondary ALFRED [place] Insurance:JASONA MARITODOB: [facility] COMMERCIALPolic [id number] Hospital Number: Repository [id number] Date:6764-29-29[address]VQ[address], [place] [address]DM: 09/28/2017 Tertiary NOT GIVENUNK [place] Insurance:SELF PAY [facility] Number: Effective Repository Date:2017-09-28
== END ==
PROVIDERS: Family Provider Internal Medicine; PCP Internal Medicine; Referring Provider Internal Medicine; Visit Provider Internal Medicine
DX: E83.41 Hypermagnesemia (principal); E53.8 Deficiency of other specified B group vitamins; I48.91 Unspecified atrial fibrillation; E55.9 Vitamin D deficiency, unspecified; R73.01 Impaired fasting glucose; Z12.5 Encounter for screening for malignant neoplasm of prostate
CPT/HCPCS: 36415; 80053; 80061; 81001; 82043; 82306; 82570; 82607; 83704; 83735; 84153; 84443; 85025; G0103

== ENCOUNTER → 2018-05-10 08:12 | Outpatient (CLI) | payer MEDICARE, OTHER, SELFPAY ==
[2018-02-28 14:54] VITALS: BMI 37.9
[2018-05-10 09:00] LABS: Absolute Lymphocyte Count 1.15 X10^3/ul (0.83-4.51); Absolute Neutrophil Count 3.4 X10^3/uL (2.0-7.7); Basophil# 0.02 X10^3/uL; Basophil% 0.4 % (0-1); Eosinophil# 0.15 X10^3/uL; Eosinophils% 2.9 % (0-5); Hematocrit 43.2 % (40-54); Lymphocyte # 1.15 X10^3/ul (4.0); Lymphocyte % 22.3 % (19-41); Mean Corp Hgb Conc 32.4 g/gl (32-36); Mean Corpuscular Hgb 33.7 pg (27.0-32.0); Mean Corpuscular Volume 103.8 fL (80-94); Mean Platelet Vol. 9.4 fl (6.2-12.0); Monocyte# 0.41 X10^3/uL; Monocyte% 7.9 % (0-10); Neutrophil # 3.42 X10^3/uL (2.7-7.7); Neutrophil % 66.3 % (47-70); Platelet Count 158 K/mm3 (150-450); RBC Distribution Width CV 15.5 % (11.6-14.6); RBC Distribution Width SD 58.1 fl (35.1-43.9); Red Blood Count 4.16 M/mm3 (4.6-6.2); White Blood Count 5.2 K/mm3 (4.4-11.0)
[2018-05-10 09:01] LABS: POSITIVE COUNT NO; POSITIVE DIFFERENTIAL NO; POSITIVE MORPHOLOGY NO
== END ==
PROVIDERS: Family Provider Internal Medicine; PCP Internal Medicine; Referring Provider Internal Medicine; Visit Provider Internal Medicine
DX: I11.9 Hypertensive heart disease without heart failure (principal)
CPT/HCPCS: 36415; 85025

== ENCOUNTER → 2018-06-13 15:36 | Outpatient (CLI) | payer MEDICARE, OTHER, SELFPAY ==
[2018-02-28 14:54] VITALS: BMI 37.9
--- NOTE | 2018-06-13 10:00 | COLBX_PTH ---
PATIENT: LETHA DEVI LOC: [facility] U#:[id number] AGE/SX: 74/M ROOM: RE06/13/[address]: Dr. Jose Antonio Mehta MD : [id number] BED: DIS: SPEC #: [id number] RECD: 06/13/18 15:17 STATUS: MICHAEL CARRILLOTram #: [id number] ELAINA: 06/13/18 10:[address]: Jose Antonio Mehta DEPT: SURGICAL PATHOLOGY RECD BY: Augustine Weller ENTERED: 06/14/18 10:10 SP TYPE: COLON BX ARMIN DR: Dr. Jazz Rodas, [facility] Tissues: A - Cecum, NOS B - Transverse colon Procedures: Surgery Specimen Level IV HEADER OPERATION: Colonoscopy with biopsy/polypectomy PRE-OP DIAGNOSIS: Screening / polyp TISSUE SUBMITTED: A - Cecum polyp, rule out adenoma, B - Distal transverse colon polyp, rule out adenoma MICROSCOPIC DIAGNOSIS A. Cecal polyp, biopsy: Tubular adenoma. Fecal debris. B. Distal transverse colon polyp, biopsy: Fragments of tubulovillous adenoma. AM:berta 06/15/18 MICROSCOPIC DESCRIPTION Slides are reviewed. GROSS DESCRIPTION A - Received in fixative is one container labeled with the patient's name and designated cecum polyp. The specimen consists of multiple irregular fragments of light [place] soft tissue with possible fecal matter that in aggregate measure 1 x 0.2 x 0.1 cm. The specimen is totally submitted in one cassette. B - Received in fixative is one container labeled with the patient's name and designated distal transverse. The specimen consists of multiple irregular fragments of light [place] soft tissue that in aggregate measure 1.4 x 1.2 x 0.2 cm. The specimen is totally submitted in one cassette. / AM:berta 06/14/18 TC:5 [facility]: [id number] x2
== END ==
PROVIDERS: Family Provider Internal Medicine; PCP Internal Medicine; Referring Provider Internal Medicine Gastroenterology; Visit Provider Internal Medicine Gastroenterology
DX: Z13.9 Encounter for screening, unspecified (principal); K63.5 Polyp of colon
CPT/HCPCS: 88305

== ENCOUNTER → 2018-08-14 07:44 | Outpatient (CLI) | payer MEDICARE, OTHER, SELFPAY ==
[2018-02-28 14:54] VITALS: BMI 37.9
--- NOTE | 2018-08-14 07:47 | RDU_ITS ---
Reason For Study: HTN with heart disease Right Renal Artery Left Renal Artery Right renal artery ostium 223.9/20 Left renal artery ostium 206/24.2 RSV/EDV. PSV/EDV. Right renal artery proximal Left renal artery proximal PSV/EDV 228.2/29.2 PSV/EDV. 147.8/24.6 . Right renal artery mid 202.5/25.9 Left renal artery mid 212.6/245 PSV/EDV. PSV/EDV . Right renal artery distal 80.9/13.2 Left renal artery distal 100/14.5 PSV/EDV. PSV/EDV. Right Renal Parenchyma Left Renal Parenchyma Upper Pole Medula 46.3/10.1 Left upper pole medulla 48.3/7.7 PSV/EDV. PSV/EDV . Right upper pole medulla EDR 0.22 . Left upper pole medulla EDR 0.16 . Right upper pole medulla R.I. Left upper pole medulla R.I. 0.84 . 0.78 . UP Cortex 59.8/8.2 PSV/EDV. Upper Ruy Cortx 38.4/9 PSV/EDV. Left upper pole cortex EDR 0.14 . Right upper pole cortex EDR 0.23 . Left upper pole cortex R.I. 0.86 . Right upper pole cortex R.I. 0.77 . Left lower Pole medulla 42.6/6.9 Right lower Pole medulla 47/7.1 PSV/EDV . PSV/EDV . Left lower pole medulla EDR 0.16 . Right lower pole medulla EDR 0.15 . Left lower pole medulla R.I. 0.84 . Right lower pole medulla R.I. Lower Pole Cortx 35.8/6.3 PSV/EDV. 0.85 . Left lower pole cortex EDR 0.18 . Lower Pole Cortex 37.2/7.1 PSV/EDV. Left lower pole cortex R.I. 0.82 . Right lower pole cortex EDR 0.19 . Left Renal Hilar Right lower pole cortex R.I. 0.81 . LT Hilar avg 82/12.1 PSV/EDV . Right Renal Hilar Left hilar acceleration time 40 Right Hilar avg 52.2/9.4 PSV/EDV. m/sec. Right hilar acceleration time 20 Left Renal Dimensions m/sec. Left kidney size 11.39 cm . Right Renal Dimensions Left cortical dimension 1.43 cm . Right kidney size 9.17 cm . Right cortical dimension 1.22 cm . Aorta Proximal abdominal aorta 1.16 x 1.22 cm . Proximal abdominal aorta peak systolic velocity is 126.4 cm/sec . Distal abdominal aorta 1.10 x 1.10 cm . Distal abdominal aorta peak systolic velocity is 185.2 cm/sec . Interpretation Summary 1. Bilateral renal artery velocities elevated consistent with bilateral >60% stenossi. Aortic veolcity is elevated and may be false renal readings. Furhter evaluation iwht CTA may be beneficial. as clinically warranted. Ordering Physician: Jazz Rodas Referring Physician: Jazz Rodas Performed By: Windy Urbano RVT
== END ==
PROVIDERS: Family Provider Internal Medicine; PCP Internal Medicine; Referring Provider Internal Medicine; Visit Provider Internal Medicine
DX: I10 Essential (primary) hypertension (principal)
CPT/HCPCS: 93975

== ENCOUNTER 2018-09-28 06:31 | Day surgery (SDC) | payer MEDICARE, OTHER, SELFPAY ==
[2018-09-18 10:35] VITALS: BMI 40.9
--- NOTE | 2018-09-20 10:30 | RAD_ITS ---
STUDY: X-RAY CHEST REASON FOR EXAM: Male, 67 years old. Preop heart catheter. TECHNIQUE: Frontal and lateral views of the chest. COMPARISON: 06/23/2016. FINDINGS: The lungs are hyperexpanded. There are coarsened interstitial markings suggestive of mild to moderate chronic fibrosis. Findings most pronounced in the right lung base. No gross focal infiltrates. No gross effusions. Sternal cerclage wires and vascular clips are present from a prior sternotomy and coronary artery bypass graft procedure (CABG). Normal mediastinum and laxmi. Normal visualized pulmonary arteries. There is atherosclerotic calcification of the aortic arch with tortuosity. There are diffuse degenerative changes of the visualized thoracic spine. Normal visualized ribs, clavicles, and shoulders. There is no demonstrated abnormality of the visualized soft tissue structures of the upper abdomen. 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 No definite acute chest disease. Electronically Signed: Jamshid Fitzgerald MD at 21:57 EDT , Service support ,
[2018-09-20 10:40] LABS: Absolute Lymphocyte Count 0.97 X10^3/ul (0.83-4.51); Absolute Neutrophil Count 4.8 X10^3/uL (2.0-7.7); Basophil# 0.02 X10^3/uL; Basophil% 0.3 % (0-1); Eosinophil# 0.15 X10^3/uL; Eosinophils% 2.3 % (0-5); Hematocrit 40.5 % (40-54); Hemoglobin 13.6 g/dl (13.0-16.5); Lymphocyte # 0.97 X10^3/ul (4.0); Lymphocyte % 15.1 % (19-41); Mean Corp Hgb Conc 33.6 g/gl (32-36); Mean Corpuscular Hgb 34.6 pg (27.0-32.0); Mean Corpuscular Volume 103.1 fL (80-94); Monocyte# 0.52 X10^3/uL; Monocyte% 8.1 % (0-10); Neutrophil # 4.76 X10^3/uL (2.7-7.7); Neutrophil % 73.9 % (47-70); POSITIVE COUNT NO; POSITIVE DIFFERENTIAL NO; POSITIVE MORPHOLOGY NO; Platelet Count 180 K/mm3 (150-450); RBC Distribution Width CV 15.1 % (11.6-14.6); RBC Distribution Width SD 56.8 fl (35.1-43.9); Red Blood Count 3.93 M/mm3 (4.6-6.2); White Blood Count 6.4 K/mm3 (4.4-11.0)
[2018-09-20 10:49] LABS: International Normalized Ratio 1.4; Prothrombin Time (Protime)PT. 17.3 SECONDS (11.7-14.9)
[2018-09-20 10:50] LABS: Partial Thromboplast Time 34.5 Seconds (24.1-36.2)
[2018-09-20 11:10] LABS: Anion Gap 7 (5-15); BUN 24 mg/dL (7-18); BUN/Creat Ratio 19.2 RATIO (10-20); Calcium,Total 8.7 mg/dL (8.5-10.1); Chloride 104 mmol/L (98-107); Creatinine, Serum 1.25 mg/dL (0.70-1.30); EST Glomerular Filtration Rate 61 mL/min (>60); Est Glom Filt Rate - Afr Amer 74 mL/min (>60); Glucose 133 mg/dL (74-106); Potassium 2.9 mmol/L (3.5-5.1); Sodium Level 140 mmol/L (136-145)
[2018-09-27 10:27] VITALS: BMI 40.9
[2018-09-28] VITALS (26 sets, daily range): BP systolic 114–184; BP diastolic 50–96; PULSE 56–76; RESP 13–22; TEMP 36.6–36.7; O2SAT 92–99; BMI 40.8; BMI 40.9
--- NOTE | 2018-09-28 08:22 | PCM.HP.CAR ---
History of Present Illness Date of Admission: 09/28/18 History of Present Illness Details: LETHA DEVI, is a 67 M who presents to the office today for an urgent cardiovascular follow-up. He sts that over the last week he has noted that he has had a chest heaviness and SOB. He notes that this is with any physically activity or with talking for extended periods of time. He has a history of coronary artery disease with bypass surgery in 1996. He had an BETHEA to the LAD, SVG to circumflex and diagonal he also has stents to his right and left iliac arteries. In 2011 he had an atrial flutter ablation, unfortunately this did not hold and he underwent further cardioversions and a second ablation in 2012 Intake Vital Signs 09/18/18 Height 5 ft 5 in 09/18/18 Weight: 246 lb 09/18/18 Body Mass Index (BMI) 40.9 09/18/18 Blood Pressure 158/60 H 09/18/18 Blood Pressure Location Lt brachial 09/18/18 Blood Pressure Position Sitting 09/18/18 Respiratory Rate 16 09/18/18 Pulse Rate 80 09/18/18 Pulse Source Auscultation 09/18/18 Body Mass Index (BMI) 37.9 Intake Visit Reasons: Shortness of breath Safety Counselor Required: No Accompanied by: None Is patient in pain?: No Allergies gabapentin Adverse Reaction (Verified 09/18/18 10:40) Other warfarin [From Coumadin] Adverse Reaction (Verified 09/18/18 10:40) very sensitive, high INR and GI bleed Medications Aspirin E.C. [Ecotrin] 81 mg PO QHS 01/22/15 [History Confirmed 09/18/18] Modafinil [Provigil] 200 mg PO BID 01/22/15 [History Confirmed 09/18/18] Multivitamins,Therapeutic [Multivitamin] 1 tab PO DAILY 01/22/15 [History Confirmed 09/18/18] Cholecalciferol (Vitamin D3) [Vitamin D3] 5,000 unit PO DAILY 06/23/16 [History Confirmed 09/18/18] apixaban 5 mg tablet 5 mg PO BID 30 Days #60 tab 11/03/17 [Rx Confirmed 09/18/18] Citalopram Hydrobromide [Citalopram HBr] 10 mg PO DAILY 02/16/18 [History Confirmed 09/18/18] fenofibrate 54 mg tablet 54 mg PO QHS #90 tab 02/23/18 [Rx Confirmed 09/18/18] amlodipine 5 mg tablet 5 mg PO DAILY #30 tab 03/01/18 [Rx Confirmed 09/18/18] furosemide 40 mg tablet 40 mg PO DAILY #90 tab 04/26/18 [Rx Confirmed 09/18/18] pantoprazole 40 mg tablet,delayed release 40 mg PO DAILY 30 Days #30 tab 05/02/18 [Rx Confirmed 09/18/18] atorvastatin 40 mg tablet 40 mg PO DAILY #90 tab 07/05/18 [Rx Confirmed 09/18/18] atenolol 25 mg tablet 25 mg PO BID #90 tab 09/18/18 [Rx Confirmed 09/18/18] ferrous sulfate 325 mg (65 mg iron) tablet 325 mg PO DAILY #30 tab 09/18/18 [Rx Confirmed 09/18/18] isosorbide mononitrate ER 30 mg tablet,extended release 24 hr 30 mg PO DAILY #30 tab 09/18/18 [Rx Confirmed 09/18/18] nitroglycerin 0.4 mg sublingual tablet 0.4 mg SUBLINGUAL Q5-15M PRN #25 tab 09/18/18 [Rx Confirmed 09/18/18] Ejection fraction %: 65 to 70 PFSH Medical History HLD (hyperlipidemia) (Chronic) HTN (hypertension) (Chronic) Atherosclerosis of coronary artery bypass graft without angina pectoris (Chronic) Renal disease (Chronic) Persistent atrial fibrillation (Chronic) Dyspnea (Chronic) Sleep apnea (Chronic) Occlusion and stenosis of left carotid artery (Chronic) Atherosclerotic heart disease of [place] coronary artery without angina pectoris (Chronic) Obesity (BMI 30-39.9) (Chronic) Anxiety and depression (Chronic) Atrial fibrillation and flutter (Chronic) PAD (peripheral artery disease) (Chronic) Surgical History History of prior ablation treatment (Resolved ~2011) H/O shoulder replacement (Resolved ~2014) History of left heart catheterization (LHC) (Chronic) History of transurethral resection of prostate (Chronic ~2004) History of coronary artery bypass surgery (Chronic ~1996) Presence of aortocoronary bypass graft (Chronic) History of mandibular surgery (Resolved ~1992) History of nasal surgery (Resolved ~2002) Family History Father Myocardial infarction Heart disease Mother CAD (coronary artery disease) Brother CAD (coronary artery disease) Diabetes Hx of CABG Sister Hypertension Pulmonary embolism Social History Smoking Status: Former smoker how long ago did patient quit smokin alcohol intake: former year quit: 2015 substance use type: does not use caffeine: Yes Type: coffee Number of servings: 1 what type of physical activity do you participate in: none seatbelt use: always do you feel safe at home: Yes ROS Const Const: Negative for fatigue, weakness, fever(s) or headache(s) Eyes Eyes: Negative for blind spots, loss of peripheral vision or transient loss of vision ENT ENT: Negative for headache(s), dizziness, tinnitus or Nosebleed/epistaxis Cardio Chest Pain: Yes Palpitations: No Edema: None Muscle aches with walking: None Resp Respiratory: Positive for SOB with activity; negative for SOB at rest, SOB orthopnea\SOB lying down or Cough GI GI: Negative nausea, vomiting, heartburn or vomiting blood/hematemesis : Negative for hematuria Musc Musc: Negative for muscle aches/ myalgia Neuro Neuro: Negative for dizziness, lightheadedness, near syncope, syncope, orthostatic symptoms, headache(s) or weakness Rusty Hematologic/Lymphatic: Negative for easy bleeding Endo Endo: Negative for fatigue Cardiology Exam Const Appearance: cooperative, healthy appearing, no acute distress, well developed and well groomed Nutritional Appearance: average body habitus and well nourished Orientation: alert, awake and oriented x3 Head Head: normal to inspection, normocephalic and atraumatic Ears: hearing grossly normal bilaterally and external ears normal Nose: external nose normal, nares normal, nasal mucous membranes and turbinates normal, septum normal, no nasal discharge Face and Sinus: face symmetric Mouth: oral mucosae normal, tongue normal, oropharynx normal and moist mucous membranes Teeth and gingiva: dentition normal Throat: posterior oropharynx normal, tonsils normal and uvula midline Eyes General: appearance normal, both eyes and all related structures Eyelids: eyelids normal Conjunctivae: conjunctivae normal Pupils: PERRL, normal by confrontation and accommodation normal EOM: EOM intact bilaterally Neck Carotids: bruit Bilateral Chest Chest inspection: normal inspection of the chest, symmetric chest movement and normal respiratory effort Auscultation: Bilateral: Clear to Auscultation Cardio Palpation: normal PMI Rate: regular rate Rhythm: regular rhythm Heart sounds: S1 normal, S2 normal and normal, physiologic split S2; negative rub, gallop or murmur GI GI: normal to inspection, soft, no hepatosplenomegaly and bowel sounds present Neuro General: alert, awake, oriented x3, gait normal, moves all extremities and no focal sensory deficit Skin Skin: no rashes or lesions noted Extremities Pulses: Normal: Right Femoral Pulse, Left Femoral Pulse, Right Dorsalis Pedis Pulse, Left Dorsalis Pedis Pulse, Right Posterior Tibial Pulse, Left Posterior Tibial Pulse, Right Radial Pulse, Left Radial Pulse Lower Extremity Edema: Trace: Bilateral Musculoskel Musculoskeletal: No joint tenderness Psych Psychological: normal affect Assessment & Plan 1. ASHD (arteriosclerotic heart disease) I25.10 Plan LEDA Goldman Patient does have symptoms concerning for angina. His EKG is different in the fact that it does demonstrate ST depression this is a newer finding for him. We will give him a prescription for isosorbide. We will also give him a prescription for PRN nitrates. He is on Eliquis so he will need to have this held for a few days prior to proceeding with a heart catheterization. This case was discussed with Dr. Maria, he would like to proceed with a heart catheterization. Patient is agreeable with this. Will call patient with date and time that this is scheduled 2. Essential hypertension I10 LEDA Barrientos Blood pressure is slightly elevated. Will start patient on isosorbide. Will monitor his blood pressure closely. Hesitant to increase his Norvasc to 10 mg as he does also have trace lower extremity edema.. Feel that this would contribute to this. He is no longer on lisinopril due to his history of acute kidney. 3. Pure hypercholesterolemia E78.00 LEDA Barrientos Patient will continue with current medication 4. Sleep apnea, unspecified type G47.30 LEDA Barrientos Patient will continue with his CPAP 5. Paroxysmal atrial fibrillation I48.0 LEDA Barrientos Patient has had minimal recurrence. He will continue with his atenolol. He will continue with his factor Xa inhibitor. This will be held a few days prior to his heart catheter is Patient seen and no changes noted in the H&P. Agreeable to the procedure. Past Medical History Allergies/Adverse Reactions: Allergies gabapentin Adverse Reaction (Verified 09/18/18 10:40) Other made me nuts warfarin [From Coumadin] Adverse Reaction (Verified 09/18/18 10:40) very sensitive, high INR and GI bleed Home Medications: Ambulatory Orders Medication Instructions Recorded Aspirin E.C. [Ecotrin] 81 mg PO QHS 01/22/15 Modafinil [Provigil] 200 mg PO BID 01/22/15 Multivitamins,Therapeutic 1 tab PO DAILY 01/22/15 [Multivitamin] Cholecalciferol (Vitamin D3) 5,000 unit PO DAILY 06/23/16 [Vitamin D3] apixaban 5 mg tablet 5 mg PO BID 30 Days #60 tab 11/03/17 Citalopram Hydrobromide 10 mg PO DAILY 02/16/18 [Citalopram HBr] fenofibrate 54 mg tablet 54 mg PO QHS #90 tab 02/23/18 amlodipine 5 mg tablet 5 mg PO DAILY #30 tab 03/01/18 furosemide 40 mg tablet 40 mg PO DAILY #90 tab 04/26/18 pantoprazole 40 mg tablet,delayed 40 mg PO DAILY 30 Days #30 tab 05/02/18 release atorvastatin 40 mg tablet 40 mg PO DAILY #90 tab 07/05/18 atenolol 25 mg tablet 25 mg PO BID #90 tab 09/18/18 ferrous sulfate 325 mg (65 mg 325 mg PO DAILY #30 tab 09/18/18 iron) tablet isosorbide mononitrate ER 30 mg 30 mg PO DAILY #30 tab 09/18/18 tablet,extended release 24 hr nitroglycerin 0.4 mg sublingual 0.4 mg SUBLINGUAL Q5-15M PRN #25 09/18/18 tablet tab Past Medical History (Chronic Problems): Chronic Problems (Last Reviewed 09/18/18 @ 09:04 by Rosalia Kennedy) History of left heart catheterization (LHC) (Chronic) 03/1997, 03/2004, 07/21/2011 History of transurethral resection of prostate (Chronic ~2004) History of coronary artery bypass surgery (Chronic ~1996) HLD (hyperlipidemia) (Chronic) HTN (hypertension) (Chronic) Atherosclerosis of coronary artery bypass graft without angina pectoris (Chronic) Renal disease (Chronic) Presence of aortocoronary bypass graft (Chronic) CABG 03/20/1997 BETHEA to LAD, Reverse SVG to CX and to DX Persistent atrial fibrillation (Chronic) Dyspnea (Chronic) Sleep apnea (Chronic) Occlusion and stenosis of left carotid artery (Chronic) Atherosclerotic heart disease of [place] coronary artery without angina pectoris (Chronic) CABG 03/20/1997 BETHEA to LAD, Reverse SVG to CX and to DX, [facility] 07/21/2011 Obesity (BMI 30-39.9) (Chronic) Anxiety and depression (Chronic) Atrial fibrillation and flutter (Chronic) s/p ablation x 2 (flutter and fibrillation) PAD (peripheral artery disease) (Chronic) s/p BL LE common iliac stenting Rotator cuff tear arthropathy of right shoulder (Chronic) Slurred speech (Chronic) pad with stents leg (Chronic) Surgical History: coronary bypass surgery, - Psychiatric History: Anxiety, Depression - *Family History Paternal Family History: Family History (Last Reviewed 09/18/18 @ 10:41 by Debi Roach) Father Myocardial infarction Heart disease Mother CAD (coronary artery disease) Brother CAD (coronary artery disease) Diabetes Hx of CABG Sister Hypertension Pulmonary embolism History Items: Heart Disease, Hypertension Maternal Family History: Family History (Last Reviewed 09/18/18 @ 10:41 by Debi Roach) Father Myocardial infarction Heart disease Mother CAD (coronary artery disease) Brother CAD (coronary artery disease) Diabetes Hx of CABG Sister Hypertension Pulmonary embolism History Items: Stroke Smoking Status: Former smoker Tobacco Use: Non-smoker Objective: Weight: 246 lb Body Mass Index (BMI) 40.9 Finger Stick Blood Glucose 98 Rhythm: EKG: ECHO: Stress Test: Cardiac Cath: PCI: CT Surgery: Holter monitor: EPS: PPM: CXR: Chest CT Scan:
--- NOTE | 2018-09-28 08:54 | PCM.HP.BLA ---
History and Physical History of Present Illness Details: LETHA DEVI, is a 67 M who presents to the office today for an urgent cardiovascular follow-up. He sts that over the last week he has noted that he has had a chest heaviness and SOB. He notes that this is with any physically activity or with talking for extended periods of time. He has a history of coronary artery disease with bypass surgery in 1996. He had an BETHEA to the LAD, SVG to circumflex and diagonal he also has stents to his right and left iliac arteries. In 2011 he had an atrial flutter ablation, unfortunately this did not hold and he underwent further cardioversions and a second ablation in 2012 Intake Vital Signs 09/18/18 Height 5 ft 5 in 09/18/18 Weight: 246 lb 09/18/18 Body Mass Index (BMI) 40.9 09/18/18 Blood Pressure 158/60 H 09/18/18 Blood Pressure Location Lt brachial 09/18/18 Blood Pressure Position Sitting 09/18/18 Respiratory Rate 16 09/18/18 Pulse Rate 80 09/18/18 Pulse Source Auscultation 09/18/18 Body Mass Index (BMI) 37.9 Intake Visit Reasons: Shortness of breath Junior Web Developer Required: No Accompanied by: None Is patient in pain?: No Allergies gabapentin Adverse Reaction (Verified 09/18/18 10:40) Other warfarin [From Coumadin] Adverse Reaction (Verified 09/18/18 10:40) very sensitive, high INR and GI bleed Medications Aspirin E.C. [Ecotrin] 81 mg PO QHS 01/22/15 [History Confirmed 09/18/18] Modafinil [Provigil] 200 mg PO BID 01/22/15 [History Confirmed 09/18/18] Multivitamins,Therapeutic [Multivitamin] 1 tab PO DAILY 01/22/15 [History Confirmed 09/18/18] Cholecalciferol (Vitamin D3) [Vitamin D3] 5,000 unit PO DAILY 06/23/16 [History Confirmed 09/18/18] apixaban 5 mg tablet 5 mg PO BID 30 Days #60 tab 11/03/17 [Rx Confirmed 09/18/18] Citalopram Hydrobromide [Citalopram HBr] 10 mg PO DAILY 02/16/18 [History Confirmed 09/18/18] fenofibrate 54 mg tablet 54 mg PO QHS #90 tab 02/23/18 [Rx Confirmed 09/18/18] amlodipine 5 mg tablet 5 mg PO DAILY #30 tab 03/01/18 [Rx Confirmed 09/18/18] furosemide 40 mg tablet 40 mg PO DAILY #90 tab 04/26/18 [Rx Confirmed 09/18/18] pantoprazole 40 mg tablet,delayed release 40 mg PO DAILY 30 Days #30 tab 05/02/18 [Rx Confirmed 09/18/18] atorvastatin 40 mg tablet 40 mg PO DAILY #90 tab 07/05/18 [Rx Confirmed 09/18/18] atenolol 25 mg tablet 25 mg PO BID #90 tab 09/18/18 [Rx Confirmed 09/18/18] ferrous sulfate 325 mg (65 mg iron) tablet 325 mg PO DAILY #30 tab 09/18/18 [Rx Confirmed 09/18/18] isosorbide mononitrate ER 30 mg tablet,extended release 24 hr 30 mg PO DAILY #30 tab 09/18/18 [Rx Confirmed 09/18/18] nitroglycerin 0.4 mg sublingual tablet 0.4 mg SUBLINGUAL Q5-15M PRN #25 tab 09/18/18 [Rx Confirmed 09/18/18] Ejection fraction %: 65 to 70 PFSH Medical History HLD (hyperlipidemia) (Chronic) HTN (hypertension) (Chronic) Atherosclerosis of coronary artery bypass graft without angina pectoris (Chronic) Renal disease (Chronic) Persistent atrial fibrillation (Chronic) Dyspnea (Chronic) Sleep apnea (Chronic) Occlusion and stenosis of left carotid artery (Chronic) Atherosclerotic heart disease of [place] coronary artery without angina pectoris (Chronic) Obesity (BMI 30-39.9) (Chronic) Anxiety and depression (Chronic) Atrial fibrillation and flutter (Chronic) PAD (peripheral artery disease) (Chronic) Surgical History History of prior ablation treatment (Resolved ~2011) H/O shoulder replacement (Resolved ~2014) History of left heart catheterization (LHC) (Chronic) History of transurethral resection of prostate (Chronic ~2004) History of coronary artery bypass surgery (Chronic ~1996) Presence of aortocoronary bypass graft (Chronic) History of mandibular surgery (Resolved ~1992) History of nasal surgery (Resolved ~2002) Family History Father Myocardial infarction Heart disease Mother CAD (coronary artery disease) Brother CAD (coronary artery disease) Diabetes Hx of CABG Sister Hypertension Pulmonary embolism Social History Smoking Status: Former smoker how long ago did patient quit smokin alcohol intake: former year quit: 2016 substance use type: does not use caffeine: Yes Type: coffee Number of servings: 1 what type of physical activity do you participate in: none seatbelt use: always do you feel safe at home: Yes ROS Const Const: Negative for fatigue, weakness, fever(s) or headache(s) Eyes Eyes: Negative for blind spots, loss of peripheral vision or transient loss of vision ENT ENT: Negative for headache(s), dizziness, tinnitus or Nosebleed/epistaxis Cardio Chest Pain: Yes Palpitations: No Edema: None Muscle aches with walking: None Resp Respiratory: Positive for SOB with activity; negative for SOB at rest, SOB orthopnea\SOB lying down or Cough GI GI: Negative nausea, vomiting, heartburn or vomiting blood/hematemesis : Negative for hematuria Musc Musc: Negative for muscle aches/ myalgia Neuro Neuro: Negative for dizziness, lightheadedness, near syncope, syncope, orthostatic symptoms, headache(s) or weakness Rusty Hematologic/Lymphatic: Negative for easy bleeding Endo Endo: Negative for fatigue Cardiology Exam Const Appearance: cooperative, healthy appearing, no acute distress, well developed and well groomed Nutritional Appearance: average body habitus and well nourished Orientation: alert, awake and oriented x3 Head Head: normal to inspection, normocephalic and atraumatic Ears: hearing grossly normal bilaterally and external ears normal Nose: external nose normal, nares normal, nasal mucous membranes and turbinates normal, septum normal, no nasal discharge Face and Sinus: face symmetric Mouth: oral mucosae normal, tongue normal, oropharynx normal and moist mucous membranes Teeth and gingiva: dentition normal Throat: posterior oropharynx normal, tonsils normal and uvula midline Eyes General: appearance normal, both eyes and all related structures Eyelids: eyelids normal Conjunctivae: conjunctivae normal Pupils: PERRL, normal by confrontation and accommodation normal EOM: EOM intact bilaterally Neck Carotids: bruit Bilateral Chest Chest inspection: normal inspection of the chest, symmetric chest movement and normal respiratory effort Auscultation: Bilateral: Clear to Auscultation Cardio Palpation: normal PMI Rate: regular rate Rhythm: regular rhythm Heart sounds: S1 normal, S2 normal and normal, physiologic split S2; negative rub, gallop or murmur GI GI: normal to inspection, soft, no hepatosplenomegaly and bowel sounds present Neuro General: alert, awake, oriented x3, gait normal, moves all extremities and no focal sensory deficit Skin Skin: no rashes or lesions noted Extremities Pulses: Normal: Right Femoral Pulse, Left Femoral Pulse, Right Dorsalis Pedis Pulse, Left Dorsalis Pedis Pulse, Right Posterior Tibial Pulse, Left Posterior Tibial Pulse, Right Radial Pulse, Left Radial Pulse Lower Extremity Edema: Trace: Bilateral Musculoskel Musculoskeletal: No joint tenderness Psych Psychological: normal affect Assessment & Plan 1. ASHD (arteriosclerotic heart disease) I25.10 Arlen - LEDA Millard Patient does have symptoms concerning for angina. His EKG is different in the fact that it does demonstrate ST depression this is a newer finding for him. We will give him a prescription for isosorbide. We will also give him a prescription for PRN nitrates. He is on Eliquis so he will need to have this held for a few days prior to proceeding with a heart catheterization. This case was discussed with Dr. Maria, he would like to proceed with a heart catheterization. Patient is agreeable with this. Will call patient with date and time that this is scheduled 2. Essential hypertension I10 LEDA Barrientos Blood pressure is slightly elevated. Will start patient on isosorbide. Will monitor his blood pressure closely. Hesitant to increase his Norvasc to 10 mg as he does also have trace lower extremity edema.. Feel that this would contribute to this. He is no longer on lisinopril due to his history of acute kidney. 3. Pure hypercholesterolemia E78.00 Plan LEDA Goldman Patient will continue with current medication 4. Sleep apnea, unspecified type G47.30 LEDA Barrientos Patient will continue with his CPAP 5. Paroxysmal atrial fibrillation I48.0 LEDA Barrientos Patient has had minimal recurrence. He will continue with his atenolol. He will continue with his factor Xa inhibitor. This will be held a few days prior to his heart catheter is Plan Detail Other Orders Addendum: Patient was seen this morning and there are no changes noted in this H&P.
--- NOTE | 2018-09-28 09:12 | CL.D_ITS ---
Patient Name: LETHA DEVI Study Date: 09/28/2018 Performing: Babatunde Maria MD Ht: 64.96 inches 165 cm : 1950 Wt: 246.92 lbs 112 kg Age: 67 Gender: male BSA: 2.16 PROCEDURE(S) PERFORMED PH57-BBF/COR/LV/CABG [id number]-BPG AND/OR PTCA, SINGLE GRAFT CLINICAL PROFILE AND INDICATIONS Indications: Suspected CAD Heart Failure: None Stress/Imaging Date: 06/19/2018 CAD Presentations: Unstable angina. CONCLUSIONS Coronary artery disease with saphenous vein graft to the diagonal which is totally occluded, ostial h igh-grade stenosis of the saphenous vein graft to the circumflex artery, and left internal mammary ar tianna to the left anterior descending artery which is patent RECOMMENDATIONS Referred for immediate PCI DESCRIPTION OF PROCEDURE The patient arrived to the procedure lab. The risks and benefits of the procedure as well as a full d escription of our services here and current unavailability of surgical backup were fully explained to the patient and/or their significant other prior to the catheterization. The Timeout was completed, verifying the correct patient and procedure. The patient's procedural site was prepped and draped in the usual fashion. Local anesthetic was given subcutaneously to right groin region with Lidocaine 2%. Using a modified Seldinger technique, arterial access was obtained via the right femoral artery, a 5 Fr sheath was inserted. Left internal mammary artery graft to the LAD selective angiography was perf ormed in multiple views using a 5 Fr. IM catheter. Left Coronary Artery selective angiography was per formed in multiple views using a 5 Fr. JL4 catheter. Right Coronary Artery selective angiography was then performed in multiple views using a 5 Fr. 3DRC (Josep) catheter. Saphenous Vein graft to the Circumflex selective angiography was performed in multiple views using a 5 Fr. 3DRC (Christopher mistry) catheter. Saphenous Vein graft to the Circumflex selective angiography was performed in multip le views using a 5 Fr. LCB catheter. Left Ventriculography was performed in DICKINSON projection using a 5 Fr. Pigtail catheter. LV to AO pullback pressures were then recorded.Contrast was injected through th e sheath and the Right Iliac and Femoral artery were assessed for possible closure device.The arteria l sheath was sutured in place and capped CORONARY ANGIOGRAPHY DOMINANCE: Left Dominant LEFT HEART ASSESSMENT Left Ventricular Ejection Fraction: by LV Gram 60 % Normal LV wall motion LEFT MAIN: 90 % Stenosis LEFT ANTERIOR DESCENDING ARTERY: PROX LAD: is occluded CIRCUMFLEX ARTERY: PROX CIRC: is occluded RIGHT CORONARY ARTERY: Diffusely diseased up to 75 % GRAFTS: BETHEA graft to the Mid LAD is patent Saphenous Vein graft to the 1st Diagonal is totally occluded Saphenous Vein graft to the CIRC has a proximal anastomotic lesion of 90 % Saphenous Vein graft to the CIRC is patent COMPLICATIONS No Complications PROCEDURE MEDICATIONS Versed 1 mg IV Fentanyl 20 mcg IV Oxygen: 2 L/min via nasal cannula Baby Aspirin (81mg) 1 Tabs PO 09/28/2018 07:32:58 Brilinta 180 mg PO @ 09/28/2018 08:17:00 Heparin 8000 unit(s) IV 09/28/2018 08:27:26 Nitro 100 mcg IC 09/28/2018 08:38:30 SUMMARY OF HEMODYNAMIC DATA Time AIR REST ECG 07:04:38 AO 150/67 (95) SA 07:56:25 LV 166/10, 42 08:11:39 LV 165/9, 40 08:11:46 LV 170/11, 37 08:12:51 LVp 168/4, 39 08:12:58 AOp 166/59 (103) 08:13:04 Signed By Babatunde Maria MD On 09/28/2018 09:12:01 Babatunde Maria MD
--- NOTE | 2018-09-28 09:15 | EKG12_ITS ---
Test Reason : AM Blood Pressure : / mmHG Vent. Rate : 055 BPM Atrial Rate : 027 BPM P-R Int : 000 ms QRS Dur : 094 ms QT Int : 492 ms P-R-T Axes : 033 -22 081 degrees QTc Int : 470 ms Marked sinus bradycardia with A-V dissociation and Junctional rhythm Nonspecific ST and T wave abnormality Prolonged QT Abnormal ECG When compared with ECG of 28-SEP-2018 09:23, MANUAL COMPARISON REQUIRED, DATA IS UNCONFIRMED Confirmed by JAMEY PERERA, BABATUNDE ([id number]), news video editor ARIADNE RAO ([id number]) on 10/03/2018 8:18:09 AM Referred By: Babatunde Concepcion Confirmed By:BABATUNDE CONCEPCION MD
--- NOTE | 2018-09-28 09:43 | CL.I_ITS ---
Patient Name: LETHA DEVI Study Date: 09/28/2018 Performing: Narda Arevalo MD Ht: 64.96 inches 165 cm : 1950 Wt: 246.92 lbs 112 kg Age: 67 Gender: male BSA: 2.16 PROCEDURE(S) PERFORMED [id number] AND/OR PTCA, SINGLE GRAFT CLINICAL PROFILE AND CO-MORBIDITIES Indications: Suspected CAD Heart Failure: None Stress/Imaging Date: 06/19/2018 CAD Presentations: Unstable angina. CONCLUSIONS Successful PCI with Drug eluting stent and PTCA to the SVG to LCx (Synergy 3.5 x 12mm deployed at 16 terrence) RECOMMENDATIONS Follow up with Dr. Maria Risk factor modification ASA Indefinitley Plavix for at least 12 months DESCRIPTION OF PROCEDURE The patient arrived to the procedure lab. The risks and benefits of the procedure as well as a full d escription of our services here and current unavailability of surgical backup were fully explained to the patient and/or their significant other prior to the catheterization. The Timeout was completed, verifying the correct patient and procedure. The patient's procedural site was prepped and draped in the usual fashion. Local anesthetic was given subcutaneously to right groin region with Lidocaine 2% Using a modified Seldinger technique,arterial access was obtained via the right femoral artery, a 5Fr sheath was inserted. Left internal mammary artery graft to the LAD selective angiography was perform ed in multiple views using a 5 Fr. IM catheter. Left Coronary Artery selective angiography was perfor med in multiple views using a 5 Fr. JL4 catheter. Right Coronary Artery selective angiography was the n performed in multiple views using a 5 Fr. 3DRC (Josep) catheter. Saphenous Vein graft to the Circumflex selective angiography was performed in multiple views using a 5 Fr. 3DRC (Josep) catheter. Saphenous Vein graft to the Circumflex selective angiography was performed in multiple vie ws using a 5 Fr. LCB catheter. Left Ventriculography was performed in DICKINSON projection using a 5 Fr. Pi gtail catheter. LV to AO pullback pressures were then recorded. JR4 Guide catheter was inserted and engaged into the SVG to the Circumflex. [employer] Basalt Guide w jose was advanced to the SVG to the Circumflex Emerge 3.0 x 12 Balloon catheter was inserted. Balloon catheter was advanced across lesion in the graft to the Circumflex. PTCA balloon inflated at 14 atms for 42 secs. Angiogram performed post balloon dilatation. Synergy 3.5 x 12 Drug Eluting stent was ins erted. Drug Eluting stent was advanced across the lesion in the graft to the Circumflex. Angiogram pe rformed pre stent deployment. Angiogram performed post stent deployment. Contrast was injected throug h the sheath and the Right Iliac and Femoral artery were assessed for possible closure device. The a rterial sheath was sutured in place and capped INTERVENTION INFORMATION LESION SITE: Vein > to Circumflex (Proximal) Segment Number: 18-Proximal circumflex artery segment - pCIRC , Lesion Location: Aortic Lesion Complexity: High/C, chronic total occlusion: No, lesion at bifurcation: No, thrombus present: No, lesion length: 11 mm, culprit lesion: Yes, Previously treated lesion: No Pre Stenosis: 90 % Pre intervention BRYCE flow: 3 PROCEDURE: Drug Eluting Stent with pre dilatation. Post Stenosis: 0 % Post intervention BRYCE flow: 3 Lesion Devices: Cordis 6 Fr JR4 100cm Guide Catheter Perez .014 [employer] Basalt Straight 190cm Bandar Sci EMERGE MR 3.00x12 BALLOON Bandar Sci Synergy MR AGAPITO 3.50x12 [employer] 6 [employer] GuideLiner COMPLICATIONS No Complications PROCEDURE MEDICATIONS Versed 1 mg IV Fentanyl 20 mcg IV Oxygen: 2 L/min via nasal cannula Baby Aspirin (81mg) 1 Tabs PO 09/28/2018 07:32:58 Brilinta 180 mg PO @ 09/28/2018 08:17:00 Heparin 8000 unit(s) IV 09/28/2018 08:27:26 Nitro 100 mcg IC 09/28/2018 08:38:30 SUMMARY OF HEMODYNAMIC DATA Time AIR REST ECG 07:04:38 AO 150/67 (95) SA 07:56:25 LV 166/10, 42 08:11:39 LV 165/9, 40 08:11:46 LV 170/11, 37 08:12:51 LVp 168/4, 39 08:12:58 AOp 166/59 (103) 08:13:04 Signed By Narda Arevalo MD On 09/28/2018 10:06:45 Narda Arevalo MD
--- NOTE | 2018-09-28 10:00 | EKG12_ITS ---
Test Reason : POST PCI Blood Pressure : / mmHG Vent. Rate : 061 BPM Atrial Rate : 061 BPM P-R Int : 168 ms QRS Dur : 100 ms QT Int : 460 ms P-R-T Axes : 070 -18 110 degrees QTc Int : 463 ms Normal sinus rhythm Nonspecific T wave abnormality Prolonged QT Abnormal ECG Confirmed by SCOTT PERERA, ANDRIA ([id number]), design editor ARIADNE RAO ([id number]) on 10/11/2018 12:52:03 PM Referred By: Babatunde Maria Confirmed By:ANDRIA CHAVEZ MD
--- NOTE | 2018-09-28 10:29 | CRPHASE1_ITS ---
Patient Communication Former Patient:: Phase II PHII Cardiac Rehab Discussed with Patient:: Yes Guide to Cardiac Rehab Given to Patient:: Yes Cardiac Rehab Facility Choice List Given to Patient:: Yes - [facility] Choice Program [facility] CR PHII:: Communication Given to CR, Refer to [facility] Supervisor Hand Silvering:: Babatunde Maria PCP:: Jazz Rodas Phase II Cardiac Rehab:: Yes Sessions:: 36 sessions - 3 days/wk, 12 weeks Risk Factors/Lifestyle Smoking Status: Former smoker Hx Hypertension: Yes Hx Diabetes Mellitus Type 2: No Height: 1.65 m Weight:: 111.58 kg BMI: 40.9 ETOH: No Caffeine: Yes Substance Abuse: No Family History: Family History (Last Reviewed 09/18/18 @ 10:41 by Debi Roach) Father Myocardial infarction Heart disease Mother CAD (coronary artery disease) Brother CAD (coronary artery disease) Diabetes Hx of CABG Sister Hypertension Pulmonary embolism Past Cardiac Illness: Coronary Artery Disease Phase I Education Given On:: [place], Nutrition Issues Affecting Care:: None Knowledge of Condition:: Yes Learning Preferences: Verbal Medical/Surgical History [place]:: Yes COPD:: Yes JD:: Yes - ON BIPAP Diabetes Type II:: No Hypertension:: Yes Dyslipidemia:: Yes CABG: Yes Discharge/Home/Social Eval Discharge Disposition: Home Marital Status: Cardiac Rehabilitation Info Cardiac Rehabilitation Program Information: Cardiac Rehabilitation is important for patients like you who are recovering from a heart problem. Cardiac rehabilitation programs are recognized as integral to the continued care of the patient with coronary heart disease. The cardiac rehabilitation program is designed to optimize a patient's physical, psychological, and social functioning. Health district manager primary care sales work in cardiac rehabilitation programs and assist you with getting the treatments you need to get stronger and healthier - like exercise, healthy eating habits, and medications. Cardiac rehabilitation has been show to help people with heart problems live longer and have better life enjoyment than people who do not go to cardiac rehabilitation. Please contact the Cardiac Rehabilitation Program at [facility] at in two weeks if you have not heard from them.
--- NOTE | 2018-09-28 10:34 | CRPH1.INSTRU ---
General Education CAD and cardiac anatomy and function:: Patient communicates acknowledgment Explanation of diagnoses and procedures:: Patient communicates acknowledgment Sign/Symptoms of LA:: Patient communicates acknowledgment Antiplatelet therapy: Not instructed Proper use of NTG-SL: Not instructed Emergency procedures and activation of EMS: Patient communicates acknowledgment Compliance of all prescribed medications: Not instructed Smoking Patient Nicotine/Smoking Risk Factors Are:: Non-smoker Dyslipidemia Recommendations Include:: Lipid profile not available Overweight/Obesity Patient Overweight/Obesity Risk Factors Are:: Overweight = 26-29 Overweight/Obesity:: Patient communicates acknowledgment Hypertension Hypertension:: Patient communicates acknowledgment Heart Disease Patient Heart Disease Risk Factors Are:: Previous cardiac event Heart Disease Response Code:: Patient communicates acknowledgment Diabetes Patient Diabetes Risk Factors Are:: No documented hx of diabetes Metabolic Syndrome Patient Metabolic Syndrome Risk Factors Are [3 of 5]:: Waist circumference > 35 [female] or 40 [male] Metabolic Syndrome Response Code:: Patient communicates acknowledgment Sedentary Patient Sedentary Risk Factors Are:: Lack of regular exercise Recommendations Include:: Monitored Outpatient Cardiac Rehab Sedentary Response Code:: Patient communicates acknowledgment Stress Patient Stress Risk Factors Are:: Patient denies stress as a risk factor
[2018-09-28] MEDS: Atenolol 25 MG Tablet PO ×2 (11:46→22:25)
[2018-09-28] MEDS: Isosorbide Mononitrate 30 MG Tablet PO (11:46)
[2018-09-28] MEDS: Furosemide 40 MG Tablet PO (11:46)
[2018-09-28] MEDS: Pantoprazole Sodium 40 MG Tablet PO (11:46)
[2018-09-28] MEDS: Ferrous Sulfate 325 MG Tablet PO (11:46)
[2018-09-28] MEDS: amLODIPine 5 MG Tablet PO (11:47)
[2018-09-28] MEDS: Citalopram 10 MG Tablet PO (11:47)
[2018-09-28] MEDS: 0.9% Normal Saline 1,000 ML 100 ML IV (12:00)
[2018-09-28 13:11] LABS: ACT Activated Clotting Time 147 sec (74-137)
[2018-09-28] MEDS: Aspirin E.C. 81 MG Tablet PO (22:25)
[2018-09-28] MEDS: Atorvastatin Calcium 40 MG Tablet PO (22:25)
[2018-09-28] MEDS: Fenofibrate 48 MG Tablet PO (22:26)
[2018-09-28] MEDS: Clopidogrel Bisulfate 300 MG Tablet 600 MG PO (22:54)
[2018-09-29] VITALS (14 sets, daily range): BP systolic 113–199; BP diastolic 49–89; PULSE 50–68; RESP 13–20; TEMP 36.7; O2SAT 92–99
[2018-09-29 05:01] LABS: Absolute Lymphocyte Count 0.99 X10^3/ul (0.83-4.51); Absolute Neutrophil Count 3.3 X10^3/uL (2.0-7.7); Basophil# 0.02 X10^3/uL; Basophil% 0.4 % (0-1); Eosinophil# 0.16 X10^3/uL; Eosinophils% 3.2 % (0-5); Hematocrit 38.3 % (40-54); Hemoglobin 12.8 g/dl (13.0-16.5); Lymphocyte # 0.99 X10^3/ul (4.0); Lymphocyte % 19.9 % (19-41); Mean Corp Hgb Conc 33.4 g/gl (32-36); Mean Corpuscular Hgb 34.5 pg (27.0-32.0); Mean Corpuscular Volume 103.2 fL (80-94); Mean Platelet Vol. 9.2 fl (6.2-12.0); Monocyte# 0.47 X10^3/uL; Monocyte% 9.5 % (0-10); Neutrophil # 3.32 X10^3/uL (2.7-7.7); Neutrophil % 66.8 % (47-70); Platelet Count 170 K/mm3 (150-450); RBC Distribution Width CV 14.9 % (11.6-14.6); RBC Distribution Width SD 55.9 fl (35.1-43.9); Red Blood Count 3.71 M/mm3 (4.6-6.2)
[2018-09-29 05:06] LABS: POSITIVE COUNT NO; POSITIVE DIFFERENTIAL NO; POSITIVE MORPHOLOGY NO
--- NOTE | 2018-09-29 07:29 | PN.CARD_ITS ---
Subjectve: Patient seen and evaluated. Doing well no complaints. Objective: Vital Signs Temp Pulse Resp BP Pulse Ox 98.0 F 52 L 15 162/64 H 99 09/29/18 00:00 09/29/18 06:00 09/29/18 06:00 09/29/18 06:00 09/29/18 06:00 Oxygen Delivery Method Room Air Weight: 243 lb 9.773 oz Body Mass Index (BMI) 40.8 Finger Stick Blood Glucose 98 Intake and Output for Last 24 Hours 09/27/18 09/28/18 09/29/18 23:59 23:59 23:59 Intake Total 1222 / 1222 Output Total 2250 / 2250 400 / 400 Balance -1028 / -1028 -400 / -400 General: Awake, Alert, Oriented x 3 HEENT: PERRL, EOMI, Sclera Non Icteric Neck: Supple, Good ROM, No Lymph Node Enlargement Lungs: Clear to auscultation Cardiovascular: Regular Rhythm, Normal S1, Normal S2, No Murmurs, No Rubs, No Gallops Vascular: No Carotid Bruits, Normal Femoral Pulses, Normal Radial Pulses, Normal Dorsalis Pedal Pulse, Normal Posterior Tibial Pulses Abdomen: Bowel Sounds Present, Soft, Non Tender, No HSM, No Organomegaly Extremities: No Cyanosis, No Clubbing, No edema Neurological: No Focal Motor or Sensory Deficit 09/29/18 04:30: WBC 5.0, RBC 3.71 L, Hgb 12.8 L, Hct 38.3 L, MCV 103.2 H, MCH 34.5 H, MCHC 33.4, RDW 14.9 H, RDW Differential 55.9 H, Plt Count 170, MPV 9.2, Immature Gran % (Auto) 0.200, Neut % (Auto) 66.8, Lymph % (Auto) 19.9, Wirt % (Auto) 9.5, Eos % (Auto) 3.2, Baso % (Auto) 0.4, Absolute Neuts (auto) 3.3, Total Counted Not Reportable Rhythm: EKG: ECHO: Stress Test: Cardiac Cath: PCI: CT Surgery: Holter monitor: EPS: PPM: CXR: Chest CT Scan: Medical Necessity - Tobacco Use Smoking Status: Former smoker Tobacco Use: Non-smoker Assessment/Plan 1. Coronary artery disease * patient is status post angioplasty and stenting of the saphenous vein graft to the obtuse marginal vessel. Did well overnight no evidence of hematoma. EKG does not demonstrate any acute changes. The plan will be to continue the patient on the current medical therapy and follow-up as outpatient. * Thank you for allowing me to participate in the care of your patient. Please don't hesitate to call if any issues arise
[2018-09-29] MEDS: amLODIPine 5 MG Tablet PO (08:21)
[2018-09-29] MEDS: Pantoprazole Sodium 40 MG Tablet PO (08:21)
[2018-09-29] MEDS: Isosorbide Mononitrate 30 MG Tablet PO (08:21)
[2018-09-29] MEDS: Citalopram 10 MG Tablet PO (08:22)
[2018-09-29] MEDS: Clopidogrel Bisulfate 75 MG Tablet PO (08:22)
[2018-09-29] MEDS: Furosemide 40 MG Tablet PO (08:22)
[2018-09-29] MEDS: Atenolol 25 MG Tablet PO (08:22)
--- NOTE | 2018-09-29 08:32 | DCINST_ITS ---
Discharge Diet: Low fat/ Low Cholesterol Discharge Activity: Return to Normal Activity May shower in (days): 1 - No tub baths for 5 days May resume sexual activity in: 1-2 weeks Lifting Restrictions: Do not lift anything greater than 10 pounds for 3 days Call your doctor if your incision/area has: Continuous Slow Oozing, Sudden Increased Bleeding, Increased Pain/ Swelling, Increased Redness, Foul Smelling Discharge, Swelling at the incision site Call your doctor if you observe: Fever of 101 or Higher, Shortness of breath, Chest pain Remove Dressing in (days):: 1 Additional Instructions: You will continue with Aspirin therapy. You will continue with Plavix therapy. You will hold your Eliquis on 09/29/2018 and resume on 09/30/2018. All three of these medications increase chances of bleeding. Please monitor for signs of bleeding and contact our office if any concerns. Please keep your scheduled appointment with Dr. Maria on 11/02/2018 at 9:00 AM. Please obtain a BMP (Kidney function) lab test prior to office visit to monitor kidney function with new medication. If you have any questions or concerns, please call the [facility] Office at [phone]. Allergies/Adverse Reactions: Allergies gabapentin Adverse Reaction (Verified 09/18/18 10:40) Other made me nuts warfarin [From Coumadin] Adverse Reaction (Verified 09/18/18 10:40) very sensitive, high INR and GI bleed Medications to take at Discharge Aspirin E.C. [Ecotrin] 81 mg PO QHS 01/22/15 Modafinil [Provigil] 200 mg PO BID 01/22/15 Multivitamins,Therapeutic [Multivitamin] 1 tab PO DAILY 01/22/15 Cholecalciferol (Vitamin D3) [Vitamin D3] 5,000 unit PO DAILY 06/23/16 apixaban 5 mg tablet 5 mg PO BID 30 Days #60 tab 11/03/17 Citalopram Hydrobromide [Citalopram HBr] 10 mg PO DAILY 02/16/18 fenofibrate 54 mg tablet 54 mg PO QHS #90 tab 02/23/18 amlodipine 5 mg tablet 5 mg PO DAILY #30 tab 03/01/18 furosemide 40 mg tablet 40 mg PO DAILY #90 tab 04/26/18 pantoprazole 40 mg tablet,delayed release 40 mg PO DAILY 30 Days #30 tab 05/02/18 atorvastatin 40 mg tablet 40 mg PO DAILY #90 tab 07/05/18 atenolol 25 mg tablet 25 mg PO BID #90 tab 09/18/18 ferrous sulfate 325 mg (65 mg iron) tablet 325 mg PO DAILY #30 tab 09/18/18 isosorbide mononitrate ER 30 mg tablet,extended release 24 hr 30 mg PO DAILY #30 tab 09/18/18 nitroglycerin 0.4 mg sublingual tablet 0.4 mg SUBLINGUAL Q5-15M PRN #25 tab 09/18/18 Clopidogrel Bisulfate [Plavix] 75 mg PO DAILY tab 09/29/18 Lisinopril 5 mg PO DAILY #30 tab 09/29/18 The following prescriptions were given: Lisinopril 5 mg PO DAILY #30 tab Transmission Status: Pending to [facility] #30 Primary Care Physician: Jazz Rodas DO [Primary Care Provider] - Test Results: Test results from this visit will be discussed in further detail at your follow- up appointment, if applicable. Please Follow Up With: Dr. Maria When: 11/02/2018 at 9:00 AM Proposed Discharge Date: 09/29/18 Cardiac Rehabilitation Info Cardiac Rehabilitation Program Information: Cardiac Rehabilitation is important for patients like you who are recovering from a heart problem. Cardiac rehabilitation programs are recognized as integral to the continued care of the patient with coronary heart disease. The cardiac rehabilitation program is designed to optimize a patient's physical, psychological, and social functioning. Health residential child care counselor work in cardiac rehabilitation programs and assist you with getting the treatments you need to get stronger and healthier - like exercise, healthy eating habits, and medications. Cardiac rehabilitation has been show to help people with heart problems live longer and have better life enjoyment than people who do not go to cardiac rehabilitation. Please contact the Cardiac Rehabilitation Program at [facility] at in two weeks if you have not heard from them.
[2018-09-29 11:23] LABS: Anion Gap 5 (5-15); BUN 22 mg/dL (7-18); BUN/Creat Ratio 19.6 RATIO (10-20); Calcium,Total 9.1 mg/dL (8.5-10.1); Chloride 106 mmol/L (98-107); Creatinine, Serum 1.12 mg/dL (0.70-1.30); EST Glomerular Filtration Rate 69 mL/min (>60); Est Glom Filt Rate - Afr Amer 83 mL/min (>60); Estimated Creatinine Clearance 52.12 ml/min; Glucose 138 mg/dL (74-106); Sodium Level 140 mmol/L (136-145)
== END 2018-09-29 11:02 | disposition home or self-care (01) ==
LOC: CLSP 06:32 → ICU 09:01
PROVIDERS: Nurse Practitioner Family; Specialist; Family Provider Internal Medicine; PCP Internal Medicine; Referring Provider Internal Medicine Cardiovascular Disease; Visit Provider Internal Medicine Cardiovascular Disease
DX: I25.110 Atherosclerotic heart disease of native coronary artery with unstable angina pectoris (principal); I25.700 Atherosclerosis of coronary artery bypass graft(s), unspecified, with unstable angina pectoris; I25.82 Chronic total occlusion of coronary artery; I48.0 Paroxysmal atrial fibrillation; I48.1 Persistent atrial fibrillation; I10 Essential (primary) hypertension; E78.5 Hyperlipidemia, unspecified; I73.9 Peripheral vascular disease, unspecified; G47.30 Sleep apnea, unspecified; F32.9 Major depressive disorder, single episode, unspecified; F41.9 Anxiety disorder, unspecified; Z79.82 Long term (current) use of aspirin; Z79.01 Long term (current) use of anticoagulants; Z79.02 Long term (current) use of antithrombotics/antiplatelets; Z79.899 Other long term (current) drug therapy; Z87.891 Personal history of nicotine dependence; Z95.5 Presence of coronary angioplasty implant and graft; Z95.1 Presence of aortocoronary bypass graft
CPT/HCPCS: 36415; 71046; 80048; 85025; 85347; 85610; 85730; 92937; 93005; 93459; 99152; 99153; J7030; J7040; Q9967; C1725; C1769; C1874; C1887; C1894; C9604; J1327

== ENCOUNTER → 2018-10-17 07:47 | Outpatient (CLI) | payer MEDICARE, OTHER, SELFPAY ==
[2018-09-28 09:03] VITALS: BMI 40.8
[2018-09-28 10:32] VITALS: BMI 40.9
--- NOTE | 2018-10-17 07:55 | PCM.CR.ITP ---
General Information - General Information Admitting Diagnosis: PCI W/CORONARY STENTING - Education/Goals Barriers to Learning: None Individual Counseling: Initial Assessment: Abnormal Cholesterol Levels, High Blood Pressure, Overweight/Obesity, B. Waist Circumference >35/Females >40/Males, C. High Triglycerides >150, Hypertension, Sedentary Lifestyle Cardiac Rehabilitation Goals: 1. Maintain the individual as the primary focus of care. 2. To improve the patient's quality of life. 3. Identification of cardiac risk factors and provide cardiac risk factor management. 4. Enhance the psychosocial status of the patient. 5. Reconditioning enough to allow the patient to resume customary activities. 6. Control symptoms of cardiac disease Scale for measuring improvement of personal goals: Enter appropriate number in Comments. 2 = Unchanged. 3 = Slightly Better. 4 = Moderate Improvement. 5 = Met my Goal Personal Goals: Initial Assessment: Improve energy level, Get back to work, or to resume activities faster, Improve diet and eating habits (eat healthier) Exercise - Initial Assessment - Visit Date of Eval: 10/17/18 Session #:: 0 - Stages of Change Stages of Change:: Action - Physician Prescribed Exercise Modalities: Treadmill, Rower, Airdyne, NuStep Frequency (days/week): 3x/week for 12 weeks [36 sessions] Duration (Minutes):: 30-45 Intensity: 60-80% age predicted maximum heart rate reserve METs - Progression: 0.5-1.0 MET, RPE 11-14 WEEK: 3.5 - Hypertension Do any of the following apply?: Yes Resting Blood Pressure:: 158/60 - Intervention Home Exercise/Activity Goal:: Sitting Time <3 hrs/day - Education Goals:: Warm-up, RPE CASTRO Scale, S/S, Safe Exercise, Self-Monitoring - Exercise Program Goals Exercise Program Goals: Aerobic Activity >30 min Nutrition - Initial Assessment - Program Goals Nutrition Program Goals: LDL <70. Total Cholesterol <200. HDL >45. Triglycerides <150. HgbA1C <7%. BMI <25 - Visit Date of Assessment:: 10/17/18 - Stages of Change Stages of Change:: Action - Lipids Total Cholesterol (mg/dL) Goal = less than 200 mg/dL: 210 HDL Cholesterol (mg/dL) Goal = less than 45 mg/dL: 0 - NOT REPORTABLE LDL Cholesterol (mg/dL) Goal = less than 70 mg/dL: 0 - NOT REPORTABLE Triglycerides (mg/dL) Goal = less than 150 mg/dL: 472 - Diabetes Diabetes:: No Insulin: No Non-Insulin Dependent?: No Do you monitor your blood sugar at home?: No - Weight Management Height: 5 ft 5 in Weight:: 246 lb Body Fat %:: 40.9 - Intervention Referral to dietitian:: Yes - MORBID OBESITY, RENAL DISEASE Referral to Diabetic Clinic:: No Will attend diet classes:: Yes - Education Gave educational materials for:: Healthy eating Tobacco - Initial Assessment - Program Goals Tobacco Program Goals: Complete smoking cessation. Attend education classes. Improve Knowledge Test score - Stage of Change Stages of Change:: Action - Learning Barriers Learning Barriers: Ready to Learn - Family Support Do you have family support?: Yes - Intervention Individual Education/Counseling:: No Education Schedule Given:: Yes - Education Gave educational material for:: Coronary artery disease, Risk factors, Sexuality, Medical compliance, Cardiac A&P, Angina signs & symptoms Psychosocial - Initial Assess - Target Goals Target Goals: Assess presence or absence of depression. Using a valid screening tool, maximizes coping skills. Positive support system - Stages of Change Stages of Change:: Action - Psychosocial Test Tool Used:: HANDS Depression Questionnaire - Intervention PS - Interventions: Yes Attend Stress Management Classes, No Referral to Mental Health, No Referral to [facility] Case Management, No Referral to Physician, No Uses Stress Management Skills - Education Gave educational materials for:: Coping techniques, Signs & symptoms of depression, Stress management, Relaxation techniques - Patient/Program Goal Preventative Medication(s):: Aspirin, RAMAKRISHNA inhibitor, Clopidogrel, Beta mickey, Statin/lipid - Assistive Devices Assistive Devices:: None Fall Risk Assessed:: Yes Patient Health Questionnaire Initial Assessment 1. Little interest or pleasure in doing things: Nearly every day 2. Feeling down, depressed, or hopeless: More than half the days 3. Trouble falling or staying asleep, or sleeping too much: Several days 4. Feeling tired or having little energy: Nearly every day 5. Poor appetite or overeating: Several days 6. Feeling bad about yourself -- or that you are a failure or have let yourself or your family down: Not at all 7. Trouble concentrating on things, such as reading the newspaper or watching television: Several days 8. Moving or speaking so slowly that other people could have noticed. Or the opposite - being so fidgety or restless that you have been moving around a lot more than usual: Not at all 9. Thoughts that you would be better off , or of hurting yourself in some way: Not at all How difficult have these problems made it for you to do your work, take care of things at home, or get along with other people?: Somewhat difficult Total Score: 11 PRIMO-Q SV Test - Statements CAD is a disease of the arteries in the heart: False Examples of risk factors for heart disease: True Angina is chest pain or discomfort: True The benefits of resistance training include: True Eating more meat and dairy products: False Anti-platelet medications such as aspirin are important: True The only effective way to manage stress: False An exercise warm-up slowly increases heart rate: True Prepared, processed foods usually have high sodium: True Depression is common after a heart attack: True The statin medications lower cholesterol: True To control blood pressure, lower the amount of sodium: True If someone gets chest discomfort during walking: False Transfats are partially hydrogenated vegetable oils: True Sleep apnea that is not treated increases the risk: False To control cholesterol, one should become a vegetarian: False Someone knows if he/she is exercising at the right level: True Diabetes cannot be prevented with exercise & health eating: True Stress is a large risk for heart attack: True A diet that can help lower blood pressure is rich in: True - Total Score Total Correct Responses: 19 Self-Efficacy Initial Assessment We would like to know how confident you are in doing certain activities. Please select your confidence level for:: Select your confidence level for the following using the scale 1-10 where 1 is not at all confident and 10 is totally confident. Your score is the average of all 6 responses. Fatigue: How confident are you that you can keep the fatigue caused by your disease from interfering with the things you want to do? Select Number: 2 Physical Discomfort or Pain: How confident are you that you can keep the physical discomfort or pain of your disease from interfering with the things you want to do? Select Number: 2 Emotional Distress: How confident are you that you can keep the emotional distress caused by your disease from interfering with the things you want to do? Select Number: 4 Other Symptoms or Health Problems: How confident are you that you can keep other symptoms or health problems from interfering with the things you want to do? Select Number: 4 Different Tasks and Activities: How confident are you that you can do the different tasks and activities needed to manage your health condition so as to reduce your need to see a doctor? Select Number: 7 Medication: How confident are you that you can do things other than just taking medication to reduce how much your illness affects your everyday life? Select Number: 7 Total Score:: 4 Nutrition Survey - Nutrition Survey Instructions Scoring Instructions: Scoring is as follows: Yes = 1 points. No = 0 point. Patient score that is >/=12 is considered to be at potential nutritional risk and could benefit from a referral to a registered dietitian. - Nutrition Survey Initial Have you lost >10 lbs over the past 2 months without trying?: No Are you following a special diet at home for diabetes, low fat, or low salt?: Yes Are you interested in meeting with a dietitian for help understanding your diet?: Yes Do you eat less than 3 meals a day?: No Do you eat fatty meats (ramos, sausage, ribs, etc), fried foods, desserts, large amounts of salad dressings, margarine, butter, or cheese most days?: No Do you have food allergies? [Enter types in comment field]: No Do you eat in restaurants more than 3 times a week?: No Do you season food with salt, seasoning salt, or garlic salt?: No Do you used canned, boxed, frozen meals, or soups, seasoning packets?: No - MORBID OBESITY, RENAL DISEASE Total Score:: 2
--- NOTE | 2018-10-17 07:55 | PCM.CR.HP2 ---
CR - History & Physical - General Arrival date:: 10/17/18 Arrival time:: 07:55 Date of Referral:: 09/28/18 Date of CR Evaluation:: 10/17/18 Referring Physician: DR. SHANON CONCEPCION Primary Diagnosis: PCI W/CORONARY STENTING - History of Present Cardiac Event Onset Date: Enter Onset Date of cardiac illnesses in Comment field below Coronary Artery Bypass Graft:: Yes - 1996 PTCA or coronary stenting:: Yes - 09/28/2018 Type of Symptoms:: SHORTNESS OF BREATH Interventions with present event:: CARDIOVERSIONS IN 2011 X 2 ATRIAL FLUTTER - Medications Home Medications: Ambulatory Orders Medication Instructions Recorded Aspirin E.C. [Ecotrin] 81 mg PO QHS 01/22/15 Modafinil [Provigil] 200 mg PO BID 01/22/15 Multivitamins,Therapeutic 1 tab PO DAILY 01/22/15 [Multivitamin] Cholecalciferol (Vitamin D3) 5,000 unit PO DAILY 06/23/16 [Vitamin D3] apixaban 5 mg tablet 5 mg PO BID 30 Days #60 tab 11/03/17 Citalopram Hydrobromide 10 mg PO DAILY 02/16/18 [Citalopram HBr] fenofibrate 54 mg tablet 54 mg PO QHS #90 tab 02/23/18 amlodipine 5 mg tablet 5 mg PO DAILY #30 tab 03/01/18 furosemide 40 mg tablet 40 mg PO DAILY #90 tab 04/26/18 pantoprazole 40 mg tablet,delayed 40 mg PO DAILY 30 Days #30 tab 05/02/18 release atorvastatin 40 mg tablet 40 mg PO DAILY #90 tab 07/05/18 atenolol 25 mg tablet 25 mg PO BID #90 tab 09/18/18 ferrous sulfate 325 mg (65 mg 325 mg PO DAILY #30 tab 09/18/18 iron) tablet isosorbide mononitrate ER 30 mg 30 mg PO DAILY #30 tab 09/18/18 tablet,extended release 24 hr nitroglycerin 0.4 mg sublingual 0.4 mg SUBLINGUAL Q5-15M PRN #25 09/18/18 tablet tab Clopidogrel Bisulfate [Plavix] 75 mg PO DAILY tab 09/29/18 Lisinopril 5 mg PO DAILY #30 tab 09/29/18 - Allergies Allergies/Adverse Reactions: Allergies gabapentin Adverse Reaction (Verified 09/18/18 10:40) Other made me nuts warfarin [From Coumadin] Adverse Reaction (Verified 09/18/18 10:40) very sensitive, high INR and GI bleed - Sleep Disorder Evaluation Hx of Sleep Apnea: Yes Do you snore loudly (louder than talking or can be heard through closed doors)?: Yes - JD, AND HAS BiPAP AT HOME HE USES NIGHTLY. Do you often feel tired/ fatigued/ sleepy during daytime?: No Has anyone observed you stop breathing during sleep?: Yes History of Hypertension (for STOP score): Yes STOP Results: Positive Advanced Directives - Advanced Directives Power of Lens Shaper Grinder: Yes Living Will: Yes Advance Directives Information Provided: No Advance Directives on File: Yes DNR Order?:: No - MOLST See MOLST form: No Past Medical History - Past Medical Illness Medical History: Past Medical History (Last Updated 09/28/18 @ 16:48 by Olivia Gallegos) Essential (primary) hypertension (Chronic) I10 HLD (hyperlipidemia) (Chronic) E78.5 Atherosclerosis of coronary artery bypass graft without angina pectoris (Chronic) I25.810 AGAPITO to the SVG to LCx (Synergy 3.5 x 12mm deployed at 16 terrence) 09/28/18 CABG BETHEA to LAD, Reverse SVG to CX and to DX 03/20/1997 Persistent atrial fibrillation (Chronic) I48.1 Atherosclerotic heart disease of [place] coronary artery without angina pectoris (Chronic) I25.10 CABG 03/20/1997 BETHEA to LAD, Reverse SVG to CX and to DX, [facility] 07/21/2011 Atrial fibrillation and flutter (Chronic) I48.91, I48.92 s/p ablation x 2 (flutter and fibrillation) Anxiety and depression F41.9, F32.9 Obesity (BMI 30-39.9) E66.9 Occlusion and stenosis of left carotid artery I65.22 PAD (peripheral artery disease) I73.9 s/p BL LE common iliac stenting Renal disease N28.9 Rotator cuff tear arthropathy of right shoulder M12.811 Sleep apnea G47.30 Acute alcohol intoxication Dyspnea (Inactive) R06.00 Slurred speech (Inactive) R47.81 - Past Surgical History Surgical History: Past Surgical History (Last Updated 06/20/19 @ 16:48 by Olivia Gallegos) History of coronary artery stent placement (Resolved) Onset Date: 09/28/18 Z95.5 PCI-AGAPITO to the SVG to LCx (Synergy 3.5 x 12mm deployed at 16 terrence) 09/28/18 History of coronary artery bypass surgery (Chronic) Onset Date: 03/20/97 Z95.1 CABG BETHEA to LAD, Reverse SVG to CX and to DX 03/20/1997 History of transurethral resection of prostate Onset Date: 2004 Z98.890, Z90.79 H/O shoulder replacement Onset Date: 2014 Z96.619 History of angioplasty of peripheral vessel Z98.62 LE [employer]IC [employer]OR w/ stent History of mandibular surgery Onset Date: ~1992 Z98.890 Jaw realignment History of nasal surgery Onset Date: ~2002 Z98.890 History of radiofrequency ablation procedure for cardiac arrhythmia Onset Date: 2011 Z98.890 Surgical History: coronary bypass surgery, - - Family History Summary Family History: Family History (Last Reviewed 09/18/18 @ 10:41 by Debi Roach) Father Myocardial infarction Heart disease Mother CAD (coronary artery disease) Brother CAD (coronary artery disease) Diabetes Hx of CABG Sister Hypertension Pulmonary embolism Social History - Smoking History Smoking Status: Former smoker Hx Smoking Cessation Date: 1995 Hx Tobacco Use: No Hx Smoking Exposure: No - Alcohol Use Alcohol Usage: Yes - OCCASIONAL BEER NOW AND THEN, NOTHING REGULAR. - Substance Abuse Hx Substance Use: No - Occupation Occupation (List type of work in comments):: Retired - Hobbies, Recreation, Social Activities Hobbies: Woodworking, Other - [employer] [address] [place], [place] [address] Social Environment - Status Marital Status: - Current Living Arrangements Living Environment:: Spouse - Children How many children do you have?: 5 - BETWEEN AND I Do any of your children live nearby?: Yes - WITHIN [address] [place] - Safety Do you feel safe in your surroundings?: Yes - Assistance Do you need any assistance at home?: NONE Review of Systems - Review of Systems Hints: Right click = Denies (Slash). Left click = Reports (Wiyot) Review of Present Symptoms: Reports: Shortness of Breath with Exertion - NOT BAD BEFORE THE STENT, BUT STILL HAS SOME SHORTNESS OF BREATH AND WINDED EASY., Fatigue, Heart Arrhythmia/Irregularities - H/O ATRIAL FIBRILLATION/FLUTTER with cardioversion procedures, Appetite - Normal - TOO MUCH NORMAL!, Appetite - Special Diet - CARDIAC DIET, LOW FAT, LOW SODIUM., Sleep - Normal. Denies: Dizziness/Lightheadedness, Sexual Changes - Pain Is Patient Pain Free?: Yes Pain Location: none Risk Factor Assessment - Chief Complaint Chief Complaint: PATIENT PRESENTS TO CARDIAC REHAB TODAY FOLLOWING RECENT PCI PROCEDURE ON 09/28/2018. PATIENT IS STILL REPORTING SHORTNESS OF BREAHT WIHT DAILY ACTIVITY BUT CLAIMS IT HAS GREATLY IMPROVED COMPARED TO PRIOR TO THE STENT. WILL CONTINUE TO MONITOR PATIENT AND KEEP OFFICE NOTIFIED. - Vital Signs Temperature: 98.6 F Respiratory Rate: 16 Pulse Ox: 94 Blood Pressure: 158/60 Nailbeds:: PINK NORMAL COLOR - Pulse Pulse Rate: 80 Pulse Rhythm: Regular - Hypertension How long have you been treated?: 1995/1996 On medication(s)?: YES Blood Pressure Sitting - Right Arm: 158/60 - Blood Cholesterol/Lipids Total Cholesterol (mg/dL) Goal = less than 200 mg/dL: 210 HDL Cholesterol (mg/dL) Goal = less than 40 mg/dL: 0 - NOT REPORTABLE LDL Cholesterol (mg/dL) Goal = less than 70 mg/dL: 0 - NOT REPORTABLE Triglycerides (mg/dL) Goal = less than 150 mg/dL: 472 - Diabetes Nutrition Referral for Diabetes: No - Obesity Height: 5 ft 5 in Weight:: 246 lb Weight in Pounds: 246.0 lbs Weight Source: Standing Scale Body Mass Index (BMI): 40.9 Nutritional Referral for Obesity: Yes - Physical Inactivity Physical Inactivity: None - Risk Stratification Risk Guidelines: Lowest Risk: Risk Factor for Diabetes, Risk Factor for Sedentary Lifestyle, Moderate Risk: Risk Factor for Hypertension, Risk Factor for Depression - H/O DEPRESSION and ANXIETY, Highest Risk: Risk Factor for Dyslipidemia, Risk Factor for Obesity - For Smoking Smoking Risk Guidelines: Smoking Low Risk: None or quit greater than 6 months ago. Smoking Moderate Risk: Smoker or quit 6 months or less ago. Smoking High Risk: Smoker - For Dyslipidemia Dyslipidemia Risk Guidelines: Low Risk: Moderate Risk: High Risk: 15-25% fat 25.1-29% fat >/= 30% fat. <7% sat fat 7-9% sat fat >9% sat fat. <150 mg chol 150-299 mg chol >/= 300 mg chol. LDL <100 LDL 100-129 LDL >/= 130. Chol/HDL ratio <5.0 Chol/HDL ratio 5.0-6.0 Chol/HDL ratio >6.0. Triglycerides <100 Triglycerides 100-149 Triglycerides >/= 150 - For Diabetes Mellitus Diabetes Risk Guidelines: Diabetes Low Risk: HgA1c <6.5% and/or FBG <120. Diabetes Moderate Risk: HgA1c 6.6-7.9% and/or FBG 120-180. Diabetes High Risk: HgA1c >/= 8% and/or FBG >180 - For Obesity/Overweight Obesity/Overweight Risk Guidelines: Obesity Low Risk: BMI <25.0. Obesity Moderate Risk: BMI 25-29.9. Obesity High Risk: BMI >/= 30.0 - For Hypertension Hypertension Risk Guidelines: Hypertension Low Risk: Systolic <120 and Diastolic <80. Hypertension Moderate Risk: Systolic 120-139 and Diastolic 80-89. Hypertension High Risk: Systolic >/= 140 and Diastolic >/= 90 - For Sedentary Lifestyle Sedentary Lifestyle Risk Guidelines: Sedentary Lifestyle Low Risk: >/= 1,500 kcal/week. Sedentary Lifestyle Moderate Risk: 700-1,499 kcal/week. Sedentary Lifestyle High Risk: < 700 kcal/week - For Depression Depression Risk Guidelines: Depression Low Risk: Not clinically depressed. Depression Moderate Risk: Mildly depressed. Depression High Risk: Clinically depressed - Family History Family History: Family History (Last Reviewed 09/18/18 @ 10:41 by Debi Roach) Father Myocardial infarction Heart disease Mother CAD (coronary artery disease) Brother CAD (coronary artery disease) Diabetes Hx of CABG Sister Hypertension Pulmonary embolism Motivation - Motivation to Participate On a scale of 1 to 10, how prepared are you to commit to attending program?: 9 - ALWAYS SOME LITTLE DOUBT IN LIFE What do you see as barriers to successfully being able to complete the program?: NONE; KNOW CR WORKS. DID IT IN 1996 AND BENEFITED FROM IT THEN. What do you see as the benefits of succesfully completing the program? In other words, what do you hope to get out of participating in the program?: MORE STRENGHT AND ENDURANCE. MORE PARTICIPATION IN ACTIVITIES. Are there issues you are dealing with that will interfere with completing the program?: SHORTNESS OF BREATH Do you have a spouse or signficant other, family or friends who will help support you to complete the program?: YES.
[2018-10-17 08:23] VITALS: BP 158/60; PULSE 80; RESP 16; TEMP 37; O2SAT 94; BMI 40.9
[2018-10-17 08:25] VITALS: BP 158/60
== END ==
PROVIDERS: Family Provider Internal Medicine; PCP Internal Medicine; Referring Provider Internal Medicine Cardiovascular Disease; Visit Provider Internal Medicine Cardiovascular Disease
DX: E78.5 Hyperlipidemia, unspecified (principal); I25.10 Atherosclerotic heart disease of native coronary artery without angina pectoris; N28.9 Disorder of kidney and ureter, unspecified

== ENCOUNTER 2018-10-23 09:00 | Outpatient (RCR) | payer MEDICARE, OTHER, SELFPAY ==
[2018-02-28 14:54] VITALS: BMI 37.9
[2018-09-28 09:03] VITALS: BMI 40.8
[2018-09-28 10:32] VITALS: BMI 40.9
== END 2018-10-23 23:59 | disposition home or self-care (01) ==
LOC: NS 09:00
PROVIDERS: Family Provider Internal Medicine; PCP Internal Medicine; Visit Provider Internal Medicine
DX: N18.3 Chronic kidney disease, stage 3 (moderate) (principal); E66.9 Obesity, unspecified; Z68.38 Body mass index [BMI] 38.0-38.9, adult; Z71.3 Dietary counseling and surveillance
CPT/HCPCS: 97802; 97803

== ENCOUNTER → 2018-11-03 06:45 | Outpatient (CLI) | payer MEDICARE, OTHER, SELFPAY ==
[2018-09-28 10:32] VITALS: BMI 40.9
[2018-11-02 08:40] VITALS: BMI 40.2
[2018-11-03 07:41] LABS: Hematocrit 38.4 % (40-54); Hemoglobin 12.9 g/dL (13.0-16.5); Mean Corp Hgb Conc 33.6 g/dL (32-36); Mean Corpuscular Hgb 35.7 pg (27.0-32.0); Mean Corpuscular Volume 106.4 fL (80-94); Platelet Count 192 K/mm3 (150-450); RBC Distribution Width CV 14.6 % (11.6-14.6); RBC Distribution Width SD 56.9 fl (35.1-43.9); Red Blood Count 3.61 M/mm3 (4.6-6.2); White Blood Count 4.9 K/mm3 (4.4-11.0)
[2018-11-03 08:02] LABS: Protein, Urine (Random) 16.1 mg/dL (<11.9); Protein:Creat Ratio 108 mg/g CRE (0-200)
[2018-11-03 08:23] LABS: Albumin, Serum 3.7 g/dL (3.2-5.0); BUN 43 mg/dL (7-18); BUN/Creat Ratio 29.7 RATIO (10-20); Calcium,Total 8.9 mg/dL (8.5-10.1); Chloride 102 mmol/L (98-107); Creatinine, Serum 1.45 mg/dL (0.70-1.30); EST Glomerular Filtration Rate 51 mL/min (>60); Est Glom Filt Rate - Afr Amer 62 mL/min (>60); Glucose 114 mg/dL (74-106); Phosphorus 3.3 mg/dL (2.5-4.9); Potassium 3.6 mmol/L (3.5-5.1); Sodium Level 140 mmol/L (136-145)
[2018-11-03 08:31] LABS: PTHIN 23.7 pg/mL (18.4-80.1)
== END ==
PROVIDERS: Family Provider Internal Medicine; PCP Internal Medicine; Referring Provider Internal Medicine Nephrology; Visit Provider Internal Medicine Nephrology
DX: N18.3 Chronic kidney disease, stage 3 (moderate) (principal)
CPT/HCPCS: 36415; 80069; 82306; 82570; 83970; 84156; 85027

== ENCOUNTER 2018-11-08 10:15 | Outpatient (RCR) | payer MEDICARE, OTHER, SELFPAY ==
[2018-09-28 10:32] VITALS: BMI 40.9
[2018-10-17 08:23] VITALS: BMI 40.9
== END 2018-11-08 23:59 ==
LOC: CR 10:15
PROVIDERS: Family Provider Internal Medicine; PCP Internal Medicine; Referring Provider Internal Medicine Cardiovascular Disease; Visit Provider Internal Medicine Cardiovascular Disease
DX: Z95.5 Presence of coronary angioplasty implant and graft (principal)
CPT/HCPCS: 93798

== ENCOUNTER 2018-11-29 10:15 | Outpatient (RCR) | payer MEDICARE, OTHER, SELFPAY ==
[2018-09-28 10:32] VITALS: BMI 40.9
[2018-11-02 08:40] VITALS: BMI 40.2
--- NOTE | 2018-11-17 07:25 | PCM.CR.ITP ---
General Information - General Information Admitting Diagnosis: PCI with coronary stenting - Education/Goals Cardiac Rehabilitation Goals: 1. Maintain the individual as the primary focus of care. 2. To improve the patient's quality of life. 3. Identification of cardiac risk factors and provide cardiac risk factor management. 4. Enhance the psychosocial status of the patient. 5. Reconditioning enough to allow the patient to resume customary activities. 6. Control symptoms of cardiac disease Scale for measuring improvement of personal goals: Enter appropriate number in Comments. 2 = Unchanged. 3 = Slightly Better. 4 = Moderate Improvement. 5 = Met my Goal Exercise - 30-day Assessment - Visit Date of Eval: 11/17/18 Session #:: 11 - Stages of Change Stages of Change:: Action - Physician Prescribed Exercise Modalities: Biodyne, Rower, NuStep Frequency (days/week): 3 Duration (Minutes):: 30-45 Intensity: 60-80% age predicted maximum heart rate reserve METs - Progression: 0.5-1.0 MET, RPE 11-14 WEEK: 3.5 Target Heart Rate:: 98-128 Max HR 111 - Hypertension Resting Blood Pressure:: 144/62 Peak Exercise Blood Pressure:: 150/60 - Intervention Home Exercise/Activity Goal:: Sitting Time <3 hrs/day - Education Goals:: Warm-up, RPE CASTRO Scale, S/S, Safe Exercise, Self-Monitoring - Exercise Program Goals Exercise Program Goals: Aerobic Activity >30 min, B/P <130/80 Nutrition - Initial Assessment - Program Goals Nutrition Program Goals: LDL <70. Total Cholesterol <200. HDL >45. Triglycerides <150. HgbA1C <7%. BMI <25 - Diabetes Do you monitor your blood sugar at home?: No Nutrition - 30-Day Assessment - Program Goals Nutrition Program Goals: LDL <70. Total Cholesterol <200. HDL >45. Triglycerides <150. HgbA1C <7%. BMI <25 - Visit Date of Eval: 11/17/18 - Stages of Change Stages of Change:: Action - Diabetes Diabetes:: No - Weight Management Weight:: 111.13 kg - Intervention Referral to dietitian:: Yes Referral to Diabetic Clinic:: No Will attend diet classes:: Yes - Education Attended class for:: Signs & symptoms of hypoglycemia, Signs & symptoms of hyperglycemia, Relate diabetes to coronary artery disease, Healthy eating Tobacco - Initial Assessment - Program Goals Tobacco Program Goals: Complete smoking cessation. Attend education classes. Improve Knowledge Test score - Learning Barriers Learning Barriers: Ready to Learn Tobacco - 30-Day Assessment - Program Goals Tobacco Program Goals: Complete smoking cessation. Attend education classes. Improve Knowledge Test score - Stage of Change Stages of Change:: Action - Learning Barriers Learning Barriers: Participates in education - Family Support Do you have family support?: Yes - Tobacco Use Tobacco Use: Non-smoker - Intervention Smoking Cessation Referral:: No Individual Education/Counseling:: No Education Schedule Given:: Yes - Education Attended class for:: Treating Heart Disease, How The Heart Works, What it means to have Heart Disease, How Coronary Artery Disease is Diagnosed, Heart Procedures, What Heart Medications Do, Risk Factors & Modifications, Living an Active Life, Nutrition, Emotions & Heart Disease, Stress Management & Relaxation, Sleep Disorders & Heart Disease Psychosocial - Initial Assess - Target Goals Target Goals: Assess presence or absence of depression. Using a valid screening tool, maximizes coping skills. Positive support system - Psychosocial Test Tool Used:: HANDS Depression Questionnaire - Assistive Devices Fall Risk Assessed:: Yes Psychosocial - 30-Day Assess - Target Goals Target Goals: Assess presence or absence of depression. Using a valid screening tool, maximizes coping skills. Positive support system - Stages of Change Stages of Change:: Action - Psychosocial Test Tool Used:: HANDS Depression Questionnaire - Intervention PS - Interventions: Yes Attend Stress Management Classes, Yes Uses Stress Management Skills, No Referral to Mental Health, No Referral to [facility] Case Management, No Referral to Physician - Education Attended classes for:: Coping techniques, Signs & symptoms of depression, Stress management, Relaxation techniques - Assistive Devices Assistive Devices:: None Fall Risk Assessed:: Yes Patient Health Questionnaire 30-Day Re-eval Assessment 1. Little interest or pleasure in doing things: Nearly every day 2. Feeling down, depressed, or hopeless: More than half the days 3. Trouble falling or staying asleep, or sleeping too much: Several days 4. Feeling tired or having little energy: Nearly every day 5. Poor appetite or overeating: Several days 6. Feeling bad about yourself -- or that you are a failure or have let yourself or your family down: Not at all 7. Trouble concentrating on things, such as reading the newspaper or watching television: Several days 8. Moving or speaking so slowly that other people could have noticed. Or the opposite - being so fidgety or restless that you have been moving around a lot more than usual: Not at all 9. Thoughts that you would be better off , or of hurting yourself in some way: Not at all How difficult have these problems made it for you to do your work, take care of things at home, or get along with other people?: Somewhat difficult Total Score: 11
[2018-11-17 07:30] VITALS: BP 144/62; BP 150/60
== END 2018-12-09 23:59 ==
LOC: CR 10:15
PROVIDERS: Family Provider Internal Medicine; PCP Internal Medicine; Referring Provider Internal Medicine Cardiovascular Disease; Visit Provider Internal Medicine Cardiovascular Disease
DX: Z95.5 Presence of coronary angioplasty implant and graft (principal)
CPT/HCPCS: 93798

== ENCOUNTER 2018-12-18 16:49 | Inpatient (IN) | payer MEDICARE, OTHER, SELFPAY ==
[2018-09-28 10:32] VITALS: BMI 40.9
[2018-11-02 08:40] VITALS: BMI 40.2
[2018-12-18] VITALS (16 sets, daily range): BP systolic 129–186; BP diastolic 63–85; PULSE 70–98; RESP 10–28; TEMP 37.2–38.2; O2SAT 91–100; BMI 38.7; BMI 40.8
--- NOTE | 2018-12-18 17:11 | EKG12_ITS ---
Test Reason : CP Blood Pressure : / mmHG Vent. Rate : 097 BPM Atrial Rate : 097 BPM P-R Int : 162 ms QRS Dur : 102 ms QT Int : 382 ms P-R-T Axes : 042 -11 105 degrees QTc Int : 485 ms Normal sinus rhythm ST & T wave abnormality, nonspecific Abnormal ECG Confirmed by JAMEY PERERA, SHANON ([id number]), editor magazine ARIADNE RAO ([id number]) on 12/20/2018 12:57:47 PM Referred By: Confirmed By:SHANON CONCEPCION MD
[2018-12-18 17:21] LABS: Absolute Neutrophil Count 7.1 X10^3/uL (2.0-7.7); Basophil# 0.04 X10^3/uL; Basophil% 0.5 % (0-1); Eosinophil# 0.08 X10^3/uL; Eosinophils% 0.9 % (0-5); Hematocrit 33.2 % (40-54); Hemoglobin 10.8 g/dL (13.0-16.5); Lymphocyte % 9.2 % (19-41); Mean Corp Hgb Conc 32.5 g/dL (32-36); Mean Corpuscular Hgb 35.4 pg (27.0-32.0); Mean Corpuscular Volume 108.9 fL (80-94); Mean Platelet Vol. 9.1 fl (6.2-12.0); Monocyte# 0.59 X10^3/uL; Monocyte% 6.8 % (0-10); NRBC Flagged by Analyzer 0.2 % (0-5); Neutrophil # 7.08 X10^3/uL (2.7-7.7); Neutrophil % 81.7 % (47-70); Platelet Count 211 K/mm3 (150-450); RBC Distribution Width CV 15.3 % (11.6-14.6); RBC Distribution Width SD 59.5 fl (35.1-43.9); Red Blood Count 3.05 M/mm3 (4.6-6.2); White Blood Count 8.7 K/mm3 (4.4-11.0)
--- NOTE | 2018-12-18 17:25 | RAD_ITS ---
STUDY: X-RAY CHEST REASON FOR EXAM: Male, 68 years old. Shortness of breath TECHNIQUE: Single frontal view of the chest. COMPARISON: 09/20/2018 FINDINGS: Median sternotomy wires. Chronic interstitial lung changes without superimposed acute alveolar disease. There is no demonstrated pleural abnormality. Stable cardiomediastinal silhouette. Normal mediastinum and laxmi. Normal visualized pulmonary arteries. Normal visualized aortic arch and descending thoracic aorta. Normal visualized thoracic spine. Right shoulder arthroplasty. There is no demonstrated abnormality of the visualized soft tissue structures of the upper abdomen. RAD/Chest 1 View (Portable) IMPRESSION: Chronic interstitial lung changes without superimposed acute alveolar disease. Electronically Signed: Gennaro Lowe MD at 17:41 EDT Tel , Service support ,
[2018-12-18] MEDS: Ipratropium/Albuterol Sulfate 3 ML AMPUL.NEB INHALATION (17:28)
[2018-12-18 17:35] LABS: Anion Gap 8 (5-15); BUN 25 mg/dL (7-18); BUN/Creat Ratio 18.4 RATIO (10-20); Calcium,Total 8.4 mg/dL (8.5-10.1); Chloride 103 mmol/L (98-107); Creatinine, Serum 1.36 mg/dL (0.70-1.30); EST Glomerular Filtration Rate 55 mL/min (>60); Est Glom Filt Rate - Afr Amer 67 mL/min (>60); Estimated Creatinine Clearance 45.61 ml/min; Glucose 136 mg/dL (74-106); Potassium 3.6 mmol/L (3.5-5.1); Sodium Level 139 mmol/L (136-145)
[2018-12-18 17:43] LABS: Lactic Acid 2.8 mmol/L (0.4-2.0)
--- NOTE | 2018-12-18 17:46 | ED.RN ---
DR. FONTANEZ INFORMED OF LACTIC 2.8. WILL CONTINUE TO MONITOR.
--- NOTE | 2018-12-18 18:00 | CT_ITS ---
STUDY: CTA CHEST REASON FOR EXAM: Male, 68 years old. Shortness of breath and chest pain RADIATION DOSAGE (If Supplied By Facility): CTDIvol = ( 13.85 ) mGy, DLP = ( 568.35 ) mGycm TECHNIQUE: The examination was performed with the intravenous administration of 100 IV Isovue 370. Post-processing of the angiographic images was performed, with multiplanar reformation and 3D reconstruction. Individualized dose optimization techniques were used for this CT. COMPARISON: None. FINDINGS: Median sternotomy wires. Normal enhancement of the main pulmonary artery and right and left pulmonary arteries. Normal enhancement of the bilateral peripheral pulmonary arteries. There is no demonstrated pulmonary embolism. Normal thoracic aorta and visualized great vessels. There is no demonstrated aortic dissection. Normal heart and pericardium. Prevascular adenopathy with short axis measurement of 14 mm. Precarinal adenopathy with short axis measurement of 15 mm. Normal hilar regions. Normal visualized trachea and bronchi. Right basilar alveolar disease. Bibasilar interstitial edema. Bilateral pleural effusions. Normal chest wall structures. Right shoulder arthroplasty. Degenerative thoracic spine changes. Normal visualized upper abdomen. CT/CTA Chest W/WO Contrast IMPRESSION: No pulmonary embolus. Right basilar alveolar disease. Bibasilar interstitial edema. Mediastinal adenopathy as described. Electronically Signed: Gennaro Lowe MD at 18:57 EDT Tel , Service support ,
--- NOTE | 2018-12-18 19:50 | HP.PCM_ITS ---
Problem List (1) Stage III chronic kidney disease Status: Chronic (2) Bilateral renal artery stenosis Status: Chronic (3) Peripheral vascular occlusive disease Status: Chronic (4) Essential (primary) hypertension Status: Chronic (5) History of coronary artery stent placement Status: Chronic Comment: PCI-AGAPITO-SVG to LCx w/ 3.5 x 12 mm Synergy 09/28/18 (6) History of coronary artery bypass surgery Status: Chronic Comment: CABG X 3 BETHEA to LAD, SVG-LCx, SVG-D1 03/20/1997 (7) HLD (hyperlipidemia) Status: Chronic Qualifiers: (8) Atrial fibrillation and flutter Status: Chronic Comment: s/p ablation x 2 (flutter and fibrillation) History of Present Illness Date of Admission: 12/18/18 Chief Complaint: Shortness of breath, chest heaviness. The patient is a 68 year old M with past medical history as mentioned above presented to the emergency room because of shortness of breath and chest heaviness. His symptoms started around 4 to 5 days ago with shortness of breath, exertional, has been progressive and since yesterday, he is getting short of breath even if he walks couple of steps, relieved by rest and associated with mild productive cough with minimal clear sputum. His other complaint is chest pain that started around the same time with the shortness of breath, retrosternal, pressure-like pain, mild to moderate, not radiating and without aggravating or relieving factors. He mentioned that when he went to do CT scan today and he got up from the bed to walk to the CT scan machine, he got very short of breath. He denied sore throat, sinus or nasal congestion. No family member is sick around him and he denied admission to the hospital in the last 3 months. He does have chronic bilateral leg edema and it is not changing. He denies orthopnea or PND. In the emergency department and according to ED physician, patient was dyspneic and tachypneic, pulse ox was 85% on room air, blood pressure was elevated, afebrile, heart rate stable. His routine blood work was remarkable for chronic anemia with stable hemoglobin, BUN of 25 and creatinine of 1.26 which are chronic as well. EKG revealed normal sinus rhythm without evidence of acute ischemic changes. Troponin was negative. BNP was 128 but it has been chronically elevated. Lactic acid was 2.8. Chest x-ray showed cardiomegaly, chronic alveolar basilar disease, no obvious infiltrate or consolidation. CTA chest showed no PE or dissection, right basilar alveolar disease and probable mild vascular congestion. He is being admitted for acute hypoxic respiratory failure due to probable acute CHF in addition to probable community-acquired pneumonia. Past Medical History Past Medical History (Chronic Problems): Chronic Problems (Last Updated 12/18/18 @ 19:49 by Joseph Stokes MD) Stage III chronic kidney disease (Chronic) Bilateral renal artery stenosis (Chronic) Peripheral vascular occlusive disease (Chronic) Essential (primary) hypertension (Chronic) History of coronary artery stent placement (Chronic 09/28/18) PCI-AGAPITO-SVG to LCx w/ 3.5 x 12 mm Synergy 09/28/18 History of coronary artery bypass surgery (Chronic 03/20/97) CABG X 3 BETHEA to LAD, SVG-LCx, SVG-D1 03/20/1997 HLD (hyperlipidemia) (Chronic) Atherosclerosis of coronary artery bypass graft without angina pectoris (Chronic) PCI-AGAPITO-SVG to LCx w/ 3.5 x 12 mm Synergy 09/28/18 CABG x 3 BETHEA-LAD, SVG-LCX, SVG-D1 03/20/1997 Atherosclerotic heart disease of [place] coronary artery without angina pectoris (Chronic) Atrial fibrillation and flutter (Chronic) s/p ablation x 2 (flutter and fibrillation) Medical History: Medical History (Last Updated 12/18/18 @ 19:49 by Joseph Stokes MD) Bilateral renal artery stenosis (Chronic) I70.1 Peripheral vascular occlusive disease (Chronic) I73.9 Essential (primary) hypertension (Chronic) I10 HLD (hyperlipidemia) (Chronic) E78.5 Atherosclerosis of coronary artery bypass graft without angina pectoris (Chronic) I25.810 PCI-AGAPITO-SVG to LCx w/ 3.5 x 12 mm Synergy 09/28/18 CABG x 3 BETHEA-LAD, SVG-LCX, SVG-D1 03/20/1997 Atherosclerotic heart disease of [place] coronary artery without angina pectoris (Chronic) I25.10 Atrial fibrillation and flutter (Chronic) I48.91, I48.92 s/p ablation x 2 (flutter and fibrillation) Anxiety and depression F41.9, F32.9 Chronic kidney disease N18.9 Left carotid stenosis I65.22 Obesity (BMI 30-39.9) E66.9 Persistent atrial fibrillation I48.1 Sleep apnea G47.30 Acute alcohol intoxication Allergies gabapentin Adverse Reaction (Verified 11/02/18 08:41) Other made me nuts warfarin [From Coumadin] Adverse Reaction (Verified 11/02/18 08:41) very sensitive, high INR and GI bleed Home Medications: Ambulatory Orders Medication Instructions Recorded Aspirin E.C. [Ecotrin] 81 mg PO QHS 01/22/15 Modafinil [Provigil] 200 mg PO BID 01/22/15 Cholecalciferol (Vitamin D3) 5,000 unit PO DAILY 06/23/16 [Vitamin D3] furosemide 40 mg tablet 40 mg PO DAILY #90 tab 04/26/18 atorvastatin 40 mg tablet 40 mg PO DAILY #90 tab 07/05/18 ferrous sulfate 325 mg (65 mg 325 mg PO DAILY #30 tab 09/18/18 iron) tablet nitroglycerin 0.4 mg sublingual 0.4 mg SUBLINGUAL Q5-15M PRN #25 09/18/18 tablet tab Clopidogrel Bisulfate [Plavix] 75 mg PO DAILY tab 09/29/18 cinnamon bark 500 mg capsule 1,000 mg PO BID cap 11/02/18 lisinopril 20 mg tablet 20 mg PO DAILY #90 tab 11/02/18 pantoprazole 40 mg tablet,delayed 40 mg PO DAILY PRN tab 11/02/18 release apixaban 5 mg tablet 5 mg PO BID #60 tab 11/09/18 metoprolol succinate ER 50 mg 50 mg PO BID #180 tab 11/29/18 tablet,extended release 24 hr diltiazem ER 120 mg 120 mg PO DAILY #30 cap 12/04/18 capsule,extended release 12 hr amiodarone 200 mg tablet 200 mg PO DAILY #30 tab 12/05/18 Citalopram [Celexa] 20 mg PO DAILY 12/18/18 Fenofibrate 54 mg PO QHS 12/18/18 Surgical History: Surgical History (Last Updated 12/18/18 @ 19:50 by Joseph Stokes MD) History of coronary artery stent placement (Chronic) Onset Date: 09/28/18 Z95.5 PCI-AGAPITO-SVG to LCx w/ 3.5 x 12 mm Synergy 09/28/18 History of coronary artery bypass surgery (Chronic) Onset Date: 03/20/97 Z95.1 CABG X 3 BETHEA to LAD, SVG-LCx, SVG-D1 03/20/1997 History of transurethral resection of prostate Onset Date: 2004 Z98.890, Z90.79 H/O shoulder replacement Onset Date: 2014 Z96.619 History of angioplasty of peripheral vessel Onset Date: 03/1996 Z98.62 Bilateral iliac stents History of mandibular surgery Onset Date: ~1992 Z98.890 Jaw realignment History of nasal surgery Onset Date: ~2002 Z98.890 History of radiofrequency ablation procedure for cardiac arrhythmia Onset Date: 2011 Z98.890 Rotator cuff tear arthropathy of right shoulder M12.811 Surgical History: coronary bypass surgery, - Psychiatric History: Anxiety, Depression Lives: Spouse/ Significant Other Smoking Status: Former smoker Alcohol: None Drugs: None - *Family History Paternal Family History: Family History (Last Reviewed 11/02/18 @ 09:16 by Babatunde Maria MD) Father Myocardial infarction Heart disease Mother CAD (coronary artery disease) Brother CAD (coronary artery disease) Diabetes Hx of CABG Sister Hypertension Pulmonary embolism History Items: Heart Disease, Hypertension Maternal Family History: Family History (Last Reviewed 11/02/18 @ 09:16 by Babatunde Maria MD) Father Myocardial infarction Heart disease Mother CAD (coronary artery disease) Brother CAD (coronary artery disease) Diabetes Hx of CABG Sister Hypertension Pulmonary embolism History Items: Stroke Review of Systems Constitutional: Reports: Weakness. Denies: Anorexia, Chills, Fever Eyes: Denies: Blurred vision, Double vision, Drainage, Redness HEENT: Denies: Difficulty Hearing, Ear Pain, Eye Pain, Nasal Congestion, Sore Throat Cardiovascular: Reports: Chest Pain, Chest Pressure, Heaviness. Denies: Edema, Orthopnea, Palpitations, Paroxysmal Noc. Dyspnea, Syncope Respiratory: Reports: Cough, Shortness of breath upon exertion, Sputum production. Denies: Hemoptysis, Pleuritic Pain, Wheezing Gastrointestinal: Reports: Nausea. Denies: Abdominal Pain, Constipation, Diarrhea, Vomiting Genitourinary: Denies: Dysuria, Frequency, Hematuria Musculoskeletal: Denies: Arm Pain, Back Pain, Foot Pain Skin: Denies: Dryness, Rash Neurological: Denies: Balance problems, Blurred vision, Change in Speech, Slurred speech, Confusion, Focal weakness, Headaches, Incoordination Psychiatric: Reports: Anxiety, Depression Endocrine: Denies: Change in Body Habitus, Polydipsia, Polyuria VTE Information - Inpt Only VTE Present on Admission: No VTE Mechan Device Prophylaxis: None VTE Pharm Prophylaxis ordered?: No - Physical Exam General: Alert, Oriented x3, Cooperative, - - Moderately short of breath, on BiPAP. HEENT: Atraumatic, PERRLA, EOMI, Normocephalic Oral: Moist Mucosa, No Gingival or Mucosal Lesions/ Ulcerations Neck: Supple, No JVD, Negative Carotid Bruits, Trachea Midline, Thyroid Normal Size and Texture Lungs: No wheeze, Diminished, Rales, Rhonchi, Short of Breath, - - Decreased sounds bilateral, more at the bases, bilateral basal crackles. Cardiovascular: Regular rate, Regular Rhythm, Normal S1, Normal S2, PMI Normal Abdomen: Bowel Sounds Present, Soft, Non Tender, Non-Distended, No Hepato- splenomegaly, Obese Extremities: No clubbing, No cyanosis, Edema - ++ Edema. Skin: No rashes, No breakdown Lymphatic: No Cervical, Supraclavicular, or Inguinal Adenopathy Neurological: Cranial nerves II-XII grossly intact, Motor Exam 5/5 strength throughout Psych/Mental Status: Normal Affect, Appropriate, Alert and oriented to time, pl kvng, person, mood and affect Vital Signs Temp Pulse Resp BP Pulse Ox 99.1 F 84 18 151/64 H 96 12/18/18 19:00 12/18/18 19:00 12/18/18 19:00 12/18/18 17:50 12/18/18 19:00 Oxygen Delivery Method Bi-pap Weight: 240 lb Body Mass Index (BMI) 38.7 Finger Stick Blood Glucose 98 Laboratory Tests Past 24 Hrs 12/18/18 12/18/18 12/18/18 17:08 17:08 17:08 WBC 8.7 RBC 3.05 L Hgb 10.8 L Hct 33.2 L MCV 108.9 H MCH 35.4 H MCHC 32.5 RDW Std Deviation 59.5 H RDW Coeff of Aranza 15.3 H Plt Count 211 MPV 9.1 Immature Gran % (Auto) 0.900 Neut % (Auto) 81.7 H Lymph % (Auto) 9.2 L [facility] % (Auto) 6.8 Eos % (Auto) 0.9 Baso % (Auto) 0.5 Absolute Neuts (auto) 7.1 Absolute Lymphs (auto) 0.80 L Nucleated RBC % 0.2 Sodium 139 Potassium 3.6 Chloride 103 Carbon Dioxide 28.0 Anion Gap 8 BUN 25 H Creatinine 1.36 H Estim Creat Clear Calc 45.61 Est GFR (MDRD) Af Amer 67 Est GFR (MDRD) Non-Af 55 L BUN/Creatinine Ratio 18.4 Glucose 136 H Lactic Acid 2.8 H Calcium 8.4 L Troponin I < 0.015 B-Natriuretic Peptide 12/18/18 17:08 WBC RBC Hgb Hct MCV MCH MCHC RDW Std Deviation RDW Coeff of Aranza Plt Count MPV Immature Gran % (Auto) Neut % (Auto) Lymph % (Auto) Baylor % (Auto) Eos % (Auto) Baso % (Auto) Absolute Neuts (auto) Absolute Lymphs (auto) Nucleated RBC % Sodium Potassium Chloride Carbon Dioxide Anion Gap BUN Creatinine Estim Creat Clear Calc Est GFR (MDRD) Af Amer Est GFR (MDRD) Non-Af BUN/Creatinine Ratio Glucose Lactic Acid Calcium Troponin I B-Natriuretic Peptide 128.0 H Clinical Impression(s) from Imaging Studies Chest X-Ray 12/18/18 17:25 IMPRESSION: Chronic interstitial lung changes without superimposed acute alveolar disease. Electronically Signed: Gennaro Lowe MD at 17:41 EDT Tel , Service support , Chest CTA 12/18/18 18:00 IMPRESSION: No pulmonary embolus. Right basilar alveolar disease. Bibasilar interstitial edema. Mediastinal adenopathy as described. Electronically Signed: Gennaro Lowe MD at 18:57 EDT Tel , Service support , Assessment/Plan This is a 68 years old male patient presented to the emergency because of shortness of breath, cough and chest heaviness, found to have pulse ox of 85% on room air, was dyspneic and tachypneic consistent acute hypoxic respiratory failure which be due to probable acute CHF in addition to probable community acquired pneumonia. #1 acute hypoxic respiratory failure: Differential diagnoses include acute CHF in addition to probable pneumonia. Patient reported exertional shortness of breath with leg edema. He has a history of CAD but never been diagnosed with CHF. CTA chest and chest x-ray reviewed as above. He is on BiPAP at this time. Plan: Admit to PCU, cardiac monitoring, serial cardiac enzymes, blood culture, urine culture, sputum culture, start IV diuresis with IV Lasix, start empiric IV Rocephin and Zithromax, albuterol every 4 hours, ABG, repeat CBC and BMP tomorrow morning, chest physiotherapy, incentive spirometer, PT OT evaluation and treatment. #2 chest pain/heaviness: Atypical. EKG showed no acute changes. Troponin is negative. Plan: Cardiac monitoring, serial cardiac enzymes, repeat EKG tomorrow morning, 2D echocardiogram. #3 lactic acidosis: Lactic acid is elevated. Patient is non-tachycardic, had low-grade fever, no leukocytosis. Although patient may have pneumonia, I think his lactic acidosis likely because of hypoxia and tachypnea. Blood culture sent, plan to send urine culture and sputum culture, start IV Rocephin and Zithromax, repeat lactic acid in 3 hours. #4 suspected acute CHF: Probably systolic. This is based on symptoms of shortness of breath, leg edema and bilateral pleural effusion on CTA chest. Patient does have history of CAD status post CABG and stents. Plan: 2D echocardiogram, IV Lasix, fluid restriction, continue lisinopril and metoprolol. #5 probable community-acquired pneumonia: Based on symptoms of shortness of breath, low-grade fever, sputum production as well as CTA chest findings. Plan to start IV Rocephin and Zithromax, sputum culture, pneumococcal and Legionella antigen. #6 CAD status post CABG and stents: EKG reviewed, no acute changes. Troponin is negative. Continue aspirin, statins, lisinopril and metoprolol. #7 paroxysmal atrial fibrillation/flutter: At this time, is in sinus rhythm, rate is controlled. Continue amiodarone, Cardizem and metoprolol for rate control, continue Eliquis for anti-Coblation. #8 stage III chronic kidney disease: Baseline creatinine has been around 1.2 to 2 mg/dL. Admission creatinine is 1.26, stable at baseline. #9 hypertension: Blood pressure initially was elevated but improved. Continue Cardizem, lisinopril and metoprolol, start IV hydralazine PRN. #10 peripheral vascular disease/bilateral renal artery stenosis: Status post bilateral common iliac artery stenosis. Stable. #11 DVT prophylaxis: Continue Eliquis. This note was generated with [employer] dictation software. It may contain incorrect words, spelling, and punctuation that were not noted in checking the note before signing. Code Visit Inpatient E&M: 84472 Init Hosp L3
[2018-12-18] MEDS: Ceftriaxone 1 GM/50 ML BAG IV (20:01)
--- NOTE | 2018-12-18 20:13 | ECHOCS_ITS ---
Reason For Study: DYSPNEA Procedure This was a 2D Doppler, Color Flow transthoracic echocardiogram. Contrast injection was performed. The study was technically difficult. Exam performed portable in patient room. Left Ventricle Normal LV size. The estimated ejection fraction is 65 %. Diastolic function is indeterminate. No regional wall motion abnormalities noted. Right Ventricle Normal RV size. Normal systolic function. Atria The left atrium is mildly enlarged. Normal right atrium. No doppler evidence for ASD. Mitral Valve There is no mitral valve stenosis. Mild (1+) mitral valve insufficiency. Tricuspid Valve There is no tricuspid stenosis. Mild tricuspid valve insufficiency. Pulmonary artery systolic pressure is 55 mmHg. Aortic Valve Trisinus/trileaflet aortic valve. There is no aortic stenosis. No aortic valve insufficiency. Pulmonic Valve There is no pulmonic valvular stenosis. No pulmonic valve insufficiency. Great Vessels Normal aortic root. Pericardium/Pleural No pericardial effusion. Medication Diluted definity 2.5ml given slow IV push to enhance endocardial definition. MMode/2D Measurements & Calculations RVDd: 4.0 cm Ao root diam: 3.9 cm LAV(MOD-bp): 82.8 ml LAV(MOD-bp) Indexed: 37.4 ml/m2 LAV(MOD-sp2): 82.7 ml LAV(MOD-sp4): 78.9 ml SV(MOD-sp4): 84.3 ml SV(sp4-el): 90.5 ml LVAd ap4: 35.3 cm2 EDV(MOD-sp4): 124.2 ml EDV(sp4-el): 131.7 ml LVAs ap4: 17.8 cm2 ESV(MOD-sp4): 39.9 ml ESV(sp4-el): 41.2 ml EF(MOD-sp4): 67.9 % EF(sp4-el): 68.8 % LA dimension(2D): 5.5 cm LA A4 area: 26.0 cm2 RA A4 area: 17.6 cm2 Time Measurements MV dec time: 0.22 sec Doppler Measurements & Calculations MV E max angie: 141.4 cm/sec MV V2 max: 139.9 cm/sec Ao V2 max: 132.5 cm/sec MV A max angie: 40.5 cm/sec MV max P.8 mmHg Ao max P.0 mmHg MV E/A: 3.5 MV V2 mean: 77.4 cm/sec MV mean P.9 mmHg MV V2 VTI: 33.9 cm LV V1 max: 108.2 cm/sec PA V2 max: 124.1 cm/sec TR max angie: 337.5 cm/sec LV V1 max P.7 mmHg TR max P.9 mmHg MV P1/2t-pr_phl: 100.7 msec Interpretation Summary The study was technically difficult. Diluted definity 2.5ml given slow IV push to enhance endocardial definition. The estimated ejection fraction is 65 %. Diastolic function is indeterminate. Pulmonary artery systolic pressure is 55 mmHg. Mild (1+) mitral valve insufficiency. Mild tricuspid valve insufficiency. The study was technically difficult. Ordering Physician: Joseph Stokes Referring Physician: BRAULIO BRYAN Performed By: Christina Villasenor, GABRIEL, RVT
[2018-12-18 20:55] LABS: International Normalized Ratio 1.5; Prothrombin Time (Protime)PT. 17.7 SECONDS (11.7-14.9)
[2018-12-18 20:55] LABS: Allen Test POS; Base Excess 3 mmol/L (-2 to +2); Bicarbonate 26.1 mmol/L (22-26); Blood Gas Specimen Type ART; EPAP 6; FI02 40; IPAP 12; PO2 85 mmHG (75-100); RR 12; SITE R Radial; SO2 97 % (95-99); Time Given 2045; Total Carbon Dioxide 27 mmol/L; pCO2 32.8 mmHg (35-45); pH 7.51 (7.35-7.45)
--- NOTE | 2018-12-18 20:57 | CPS ---
PT ON BIPAP, UNABLE TO START AT THIS TIME
[2018-12-18 21:13] LABS: Reflex Lactate? Y
[2018-12-18 21:32] LABS: Lactic Acid 1.3 mmol/L (0.4-2.0)
[2018-12-18] MEDS: Aspirin E.C. 81 MG Tablet PO (21:44)
[2018-12-18] MEDS: Metoprolol(XL)Succ 50 MG Tablet PO (21:44)
[2018-12-18] MEDS: APIXABAN 5 MG TABLET PO (21:44)
[2018-12-18] MEDS: Fenofibrate 48 MG Tablet PO (21:44)
[2018-12-18] MEDS: Acetaminophen 325 MG Tablet 650 MG PO (21:45)
--- NOTE | 2018-12-18 22:47 | ED.VISSUMM ---
- ER Visit Summary Date of Service: 12/18/18 Chief Complaint: Chest pain and shortness of breath History of Present Illness: The patient is a [address] Maria and Dr. Rodas. He reports that he has substernal chest pain that began 4 days ago. Is continuous and dull, aching pain that is 8 out of 10 at worst and 4-10 currently. Is worsened by exertion or talking loud. Is relieved by oxygen. He reports it is unchanged with laying flat. Is been nauseated and short of breath with this. He does reports that he has a cough that began yesterday. Is productive of white blood without sputum. He also complains of chills. He denies fever. He does admit to wheezing for the past 3 days and generalized weakness. He denies any tobacco use. He does not have a history of COPD. He has never been on home O2. He is on Eliquis and reports that he has not missed any doses. Physical Examination: Vitals: Stable. Afebrile. General: Well-nourished and well-developed. Head: Normocephalic atraumatic. Neck: Supple, no lymphadenopathy. No JVD. Nontender. Cardiovascular: Regular rate and rhythm. No murmurs. Respiratory: Mild respiratory distress. Mild wheezing bilaterally with decreased air movement.. Abdominal: Soft, nontender, nondistended, normal bowel sounds. No guarding, rebound, or peritoneal signs. Back: Nontender. Extremities: Nontender, 1+ pitting edema of his lower extremities bilaterally. Skin: Normal color, no rash. Neurologic: Alert and oriented ?3. Cranial nerves II through XII are intact. Normal strength and sensation. Psych: Normal affect. Test Results: EKG is sinus at [address] changes. He does have ST depression in leads I, aVL, and V6. However this is unchanged from last month. Troponin is negative despite 4 days of constant pain. 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 Chem-7 shows a BUN of 25, creatinine 1.36, glucose 136, calcium 8.4. CBC shows an H&H 10.8 33.2, 7 neutrophils 82, leukocytes of 9. Lactic acid is 2.8. Clinical Impression(s) from Imaging Studies Chest X-Ray 12/18/18 17:25 IMPRESSION: Chronic interstitial lung changes without superimposed acute alveolar disease. Electronically Signed: Gennaro Lowe MD at 17:41 EDT Tel , Service support , Chest CTA 12/18/18 18:00 IMPRESSION: No pulmonary embolus. Right basilar alveolar disease. Bibasilar interstitial edema. Mediastinal adenopathy as described. Electronically Signed: Gennaro Lowe MD at 18:57 EDT Tel , Service support , Emergency Department Course and Treatment: Patient was given albuterol and Atrovent aerosols. He was given a dose of Solu-Medrol IV. He was given Rocephin and Zithromax IV. He was placed on BiPAP and has improved greatly. His pulse ox is now 96% on BiPAP and he is resting comfortably. Treatment Plan: Patient was discussed with Dr. Stokes. He will be admitted to the hospital for further evaluation and treatment. Disposition: Admitted in improved condition. Impression: 1. Hypoxia. 2. Interstitial lung disease. 3. Bilateral pleural effusions. 4. Atypical chest pain. This note was generated with [employer] dictation software. It may contain incorrect words, spelling, and punctuation that were not noted in review of the chart prior to signing ED Disposition - Plan for ED Patient: Disposition: Acute Care [facility]
[2018-12-18] MEDS: Albuterol 2.5 MG/3 ML VIAL.NEB. INHALATION (23:34)
[2018-12-19] VITALS (19 sets, daily range): BP systolic 107–160; BP diastolic 45–71; PULSE 72–90; RESP 12–24; TEMP 36.8–37.5; O2SAT 35–99
[2018-12-19] MEDS: Albuterol 2.5 MG/3 ML VIAL.NEB. INHALATION ×6 (02:47→22:34)
--- NOTE | 2018-12-19 05:55 | EKG12_ITS ---
Test Reason : AM EKG Blood Pressure : / mmHG Vent. Rate : 075 BPM Atrial Rate : 075 BPM P-R Int : 182 ms QRS Dur : 106 ms QT Int : 442 ms P-R-T Axes : 064 -12 110 degrees QTc Int : 493 ms Normal sinus rhythm Nonspecific ST and T wave abnormality Prolonged QT Abnormal ECG When compared with ECG of 18-DEC-2018 16:58, MANUAL COMPARISON REQUIRED, DATA IS UNCONFIRMED Confirmed by VINH ARELLANO ([id number]), editor at large BECK DOSS ([id number] on 12/26/2018 1:11:05 PM Referred By: JORDAN Confirmed By:VINH ARELLANO
[2018-12-19 06:56] LABS: Absolute Neutrophil Count 4.9 X10^3/uL (2.0-7.7); Basophil# 0.02 X10^3/uL; Basophil% 0.3 % (0-1); Eosinophil# 0.08 X10^3/uL; Eosinophils% 1.3 % (0-5); Hematocrit 28.6 % (40-54); Hemoglobin 9.3 g/dL (13.0-16.5); Lymphocyte % 8.4 % (19-41); Mean Corp Hgb Conc 32.5 g/dL (32-36); Mean Corpuscular Hgb 35.6 pg (27.0-32.0); Mean Corpuscular Volume 109.6 fL (80-94); Mean Platelet Vol. 8.9 fl (6.2-12.0); Monocyte# 0.44 X10^3/uL; Monocyte% 7.4 % (0-10); NRBC Flagged by Analyzer 0 % (0-5); Neutrophil # 4.87 X10^3/uL (2.7-7.7); Neutrophil % 81.9 % (47-70); POSITIVE DIFFERENTIAL YES; Platelet Count 157 K/mm3 (150-450); RBC Distribution Width CV 15.2 % (11.6-14.6); RBC Distribution Width SD 59.1 fl (35.1-43.9); Red Blood Count 2.61 M/mm3 (4.6-6.2)
[2018-12-19 07:00] LABS: Differential Indicated SCAN CRITERIA MET
[2018-12-19 07:13] LABS: Anion Gap 8 (5-15); BUN 18 mg/dL (7-18); BUN/Creat Ratio 16.1 RATIO (10-20); Calcium,Total 8.1 mg/dL (8.5-10.1); Chloride 106 mmol/L (98-107); Creatinine, Serum 1.12 mg/dL (0.70-1.30); EST Glomerular Filtration Rate 69 mL/min (>60); Est Glom Filt Rate - Afr Amer 83 mL/min (>60); Estimated Creatinine Clearance 55.38 ml/min; Glucose 106 mg/dL (74-106); Potassium 3.8 mmol/L (3.5-5.1); Sodium Level 144 mmol/L (136-145)
[2018-12-19] MEDS: Pantoprazole Sodium 40 MG Tablet PO (09:45)
[2018-12-19] MEDS: dilTIAZem CD 120 MG Capsule PO (09:45)
[2018-12-19] MEDS: Ferrous Sulfate 325 MG Tablet PO (09:45)
[2018-12-19] MEDS: Clopidogrel Bisulfate 75 MG Tablet PO (09:45)
[2018-12-19] MEDS: APIXABAN 5 MG TABLET PO ×2 (09:45→22:09)
[2018-12-19] MEDS: Citalopram 20 MG Tablet PO (09:45)
[2018-12-19] MEDS: Lisinopril 20 MG Tablet PO ×2 (09:45→12:08)
[2018-12-19] MEDS: Amiodarone 200 MG Tablet PO (09:45)
[2018-12-19] MEDS: Metoprolol(XL)Succ 50 MG Tablet PO ×2 (09:46→22:08)
[2018-12-19] MEDS: Atorvastatin Calcium 40 MG Tablet PO (09:46)
[2018-12-19] MEDS: Furosemide 40 MG/4 ML Vial IV ×2 (09:47→17:01)
[2018-12-19] MEDS: 0.9% NaCl Peripheral Flush Adult/Peds IV ×4 (09:47→21:30)
--- NOTE | 2018-12-19 10:51 | PCM.PN.HOSP ---
Subjective: Patient is a 68-year-old male admitted with complaint of shortness of breath and chest heaviness that we gone over about 4 to 5 days prior to admission. Chest heaviness was worsened with exertion and gradually worsened. He also had a mild cough productive of clear sputum. On admission he was saturating at 85% on room air. EKG showed no acute ST changes initial troponin was negative. CT angiogram done showed no evidence of PE or dissection and showed a right basilar alveolar disease and possible mild vascular congestion. He was admitted to manage for acute hypoxic respiratory failure due to probable community-acquired pneumonia and probable acute heart failure. Patient seen and examined. He had his CPAP machine on. He still complained of chest heaviness but said he had improved. He admitted to a cough productive of scanty clear sputum. He denied any palpitations or dizziness, diarrhea vomiting. Review of systems otherwise negative. Labs and vitals reviewed. Vitals/I&O's: Vital Signs Temp Pulse Resp BP Pulse Ox 98.9 F 79 20 H 160/71 H 94 12/19/18 09:30 12/19/18 09:46 12/19/18 09:30 12/19/18 09:30 12/19/18 09:52 Oxygen Flow Rate (L/min) 3 Oxygen Delivery Method Nasal Cannula Weight: 253 lb 4.978 oz Body Mass Index (BMI) 40.8 Finger Stick Blood Glucose 98 Intake and Output for Last 24 Hours 12/17/18 12/18/18 12/19/18 23:59 23:59 23:59 Intake Total 425 / 425 Balance 425 / 425 General: Alert, Oriented x3, Cooperative, No apparent distress, - - Morbidly obese. HEENT: Atraumatic, PERRLA, EOMI, Normocephalic Oral: Dry Mucosa Neck: Supple, No JVD, Negative Carotid Bruits Lungs: - - mildly decreased breath sounds bibasally, no wheezes or crackles. Cardiovascular: Regular rate, Regular Rhythm, Normal S1, Normal S2, No murmurs Abdomen: Bowel Sounds Present, Soft, Non Tender, Non-Distended, No Hepato-splenomegaly Extremities: No cyanosis, No edema, Capillary Refill Less than 3 Seconds Skin: No rashes, No breakdown Musculoskeletal: No Tenderness to Palpation of Joints or Extremities Lymphatic: No Cervical, Supraclavicular, or Inguinal Adenopathy Neurological: Cranial nerves II-XII grossly intact, Neuro grossly intact, Motor Exam 5/5 strength throughout Psych/Mental Status: Normal Affect, Appropriate, Alert and oriented to time, place, person, mood and affect Microbiology Past 72 Hours 12/18/18 20:11 Mucosa - Nasopharyngeal Respiratory Panel (PCR) - Final 12/19/18 08:23 Urine, Clean Catch Streptococcus pneumoniae Antigen (M - Final 12/19/18 08:23 Urine, Clean Catch Legionella Antigen - Final Laboratory Results 12/18/18 17:08: WBC 8.7, RBC 3.05 L, Hgb 10.8 L, Hct 33.2 L, MCV 108.9 H, MCH 35.4 H, MCHC 32.5, RDW Std Deviation 59.5 H, RDW Coeff of Aranza 15.3 H, Plt Count 211, MPV 9.1, Immature Gran % (Auto) 0.900, Neut % (Auto) 81.7 H, Lymph % (Auto) 9.2 L, [place] % (Auto) 6.8, Eos % (Auto) 0.9, Baso % (Auto) 0.5, Absolute Neuts (auto) 7.1, Absolute Lymphs (auto) 0.80 L, Nucleated RBC % 0.2 12/18/18 17:08: Sodium 139, Potassium 3.6, Chloride 103, Carbon Dioxide 28.0, Anion Gap 8, BUN 25 H, Creatinine 1.36 H, Estim Creat Clear Calc 45.61, Est GFR (MDRD) Af Amer 67, Est GFR (MDRD) Non-Af 55 L, BUN/Creatinine Ratio 18.4, Glucose 136 H, Calcium 8.4 L, Troponin I < 0.015 12/18/18 17:08: Lactic Acid 2.8 H 12/18/18 17:08: B-Natriuretic Peptide 128.0 H 12/18/18 20:40: PT 17.7 H, INR 1.5 12/18/18 20:40: Troponin I < 0.015 12/18/18 20:40: Lactic Acid 1.3 12/18/18 20:52: Specimen Type ART, Sample Site R Radial, pH 7.51 H, Bicarbonate Actual 26.1 H, POC Total CO2 27, Base Excess 3 H, O2 Saturation 97, O2 % 40, ABG pCO2 32.8 L, ABG pO2 85, Gilbert Test POS, Respiration Rate 12, O2 Delivery Device Bi / C PAP, EPAP 6, IPAP 12, Blood Gas Notified Whom TYRA PERERA, Blood Gas Notified Time 204412/18/18 23:03: Troponin I < 0.015 12/19/18 06:35: WBC 6.0, RBC 2.61 L, Hgb 9.3 L, Hct 28.6 L, MCV 109.6 H, MCH 35.6 H, MCHC 32.5, RDW Std Deviation 59.1 H, RDW Coeff of Aranza 15.2 H, Plt Count 157, MPV 8.9, Immature Gran % (Auto) 0.700, Neut % (Auto) 81.9 H, Lymph % (Auto) 8.4 L, [place] % (Auto) 7.4, Eos % (Auto) 1.3, Baso % (Auto) 0.3, Absolute Neuts (auto) 4.9, Absolute Lymphs (auto) 0.50 L, Nucleated RBC % 0 12/19/18 06:35: Sodium 144, Potassium 3.8, Chloride 106, Carbon Dioxide 30.0, Anion Gap 8, BUN 18, Creatinine 1.12, Estim Creat Clear Calc 55.38, Est GFR (MDRD) Af Amer 83, Est GFR (MDRD) Non-Af 69, BUN/Creatinine Ratio 16.1, Glucose 106, Calcium 8.1 L Diagnostic Data Chest X-Ray 12/18/18 17:25 IMPRESSION: Chronic interstitial lung changes without superimposed acute alveolar disease. Electronically Signed: Gennaro Lowe MD at 17:41 EDT Tel , Service support , Chest CTA 12/18/18 18:00 IMPRESSION: No pulmonary embolus. Right basilar alveolar disease. Bibasilar interstitial edema. Mediastinal adenopathy as described. Electronically Signed: Gennaro Lowe MD at 18:57 EDT Tel , Service support , Current Medications Acetaminophen (Tylenol) 650 mg PO Q6H PRN PRN PRN Reason: Mild pain 1-3/Temp > 100.7 F Last Admin: 12/18/18 21:45 Dose: 650 mg Documented by: Albuterol Sulfate (Ventolin Aerosols) 2.5 mg INHALATION Q4H.RT [facility] Last Admin: 12/19/18 07:00 Dose: 2.5 mg Documented by: Amiodarone HCl (Cordarone) 200 mg PO DAILY [facility] Last Admin: 12/19/18 09:45 Dose: 200 mg Documented by: Apixaban (Eliquis) 5 mg PO BID [facility] Last Admin: 12/19/18 09:45 Dose: 5 mg Documented by: Aspirin (Ecotrin) 81 mg PO QHS [facility] Last Admin: 12/18/18 21:44 Dose: 81 mg Documented by: Atorvastatin Calcium (Lipitor) 40 mg PO DAILY [facility] Last Admin: 12/19/18 09:46 Dose: 40 mg Documented by: Citalopram Hydrobromide (Celexa) 20 mg PO DAILY [facility] Last Admin: 12/19/18 09:45 Dose: 20 mg Documented by: Clopidogrel Bisulfate (Plavix) 75 mg PO DAILY [facility] Last Admin: 12/19/18 09:45 Dose: 75 mg Documented by: Diltiazem HCl (Cardizem Cd) 120 mg PO DAILY [facility] Last Admin: 12/19/18 09:45 Dose: 120 mg Documented by: Fenofibrate (Tricor) 48 mg PO QHS [facility] Last Admin: 12/18/18 21:44 Dose: 48 mg Documented by: Ferrous Sulfate (Ferrous Sulfate) 325 mg PO DAILY@0800 [facility] Last Admin: 12/19/18 09:45 Dose: 325 mg Documented by: Furosemide (Lasix) 40 mg IV BID@1000,1800 [facility] Last Admin: 12/19/18 09:47 Dose: 40 mg Documented by: Hydralazine HCl (Apresoline Iv) 10 mg IV Q8H PRN PRN PRN Reason: for SBP>160 Azithromycin 500 mg/ Dextrose 255 mls @ 250 mls/hr IV Q24@2200 [facility] Ceftriaxone Sodium (Rocephin) 1 gm in 50 mls @ 100 mls/hr IV Q24@2000 [facility] Lisinopril (Zestril) 20 mg PO DAILY [facility] Last Admin: 12/19/18 09:45 Dose: 20 mg Documented by: Magnesium Hydroxide (Milk Of Magnesia) 30 ml PO DAILY PRN PRN PRN Reason: Constipation Metoprolol Succinate (Toprol Xl (Beta Ariadna)) 50 mg PO BID [facility] Last Admin: 12/19/18 09:46 Dose: 50 mg Documented by: Modafinil (Provigil) 200 mg PO BID@0800,1200 [facility] Last Admin: 12/19/18 09:47 Dose: Not Given Documented by: Ondansetron HCl (Zofran) 4 mg IV Q8H PRN PRN PRN Reason: NAUSEA/VOMITING Pantoprazole Sodium (Protonix) 40 mg PO DAILY PRN PRN Reason: Gi Cramping Last Admin: 12/19/18 09:45 Dose: 40 mg Documented by: Sodium Chloride () 10 - 40 ml IV UD PRN PRN Reason: SALINE FLUSH Last Admin: 12/19/18 09:47 Dose: 10 ml Documented by: Medical Necessity - Tobacco Use Smoking Status: Former smoker Assessment/Plan 1. Acute hypoxic respiratory failure due to probable acute systolic CHF exacerbation patient still complains of chest pain, though he says it is better 2D echo pending EF is currently unknown on breathing treatments; titrate oxygen to maintain sats at >90%; he is currently on 3L at home. he is also on antibiottics- ceftriazone and azithromycin o/a of suspicion of pneumonia. CTA showed no PE, but right basilar alveolar disease and bibasilar interstitial edema as well as mediastinal adenopathy however, in setting patient's persistent exertional chest pain and worsening SOB, I am concerned about angina. his troponins x 3 were negative. Discussed with patient;s respiratory therapy technician Dr Maria; advocates to increase lisinopril dose to 20mg bid- better control of patient's BP will hopefully help with chest pressure and SOB. 2. Chest pain and heaviness: as under 1. 2D echo pending. 3. Probable community acquired pneumonia continue Ceftriaxone and azithromycin. Urine for strep and Legionella negative and blood cultures are pending. 4. CAD status post CABG and stents: Had CABG in 1996. Had a cardiac cath in September 2016 on account of unstable angina findings of which where totally occluded saphenous vein graft to the diagonal and ostial high-grade stenosis of the saphenous vein graft to the circumflex artery and patent graft to the left anterior descending artery which is patent. He had stenting of the saphenous vein graft to the obtuse marginal vessel. He is however still having persistent chest pressure shortness of breath with exertion. discussed with DR Maria (patient's respiratory therapy technician) as under 1. 5. Paroxysmal A. fib: Rate controlled. On amiodarone and Cardizem as well as Eliquis. 6. CKD stage III: Baseline creatinine is around 1.25. Creatinine was 1.36 on admission is now down to 1.12. 7. Hypertension: On Cardizem, lisinopril and metoprolol. IV hydralazine PRN. 8. PAD status post bilateral common iliac artery stenosis: Stable. DVT prophylaxis: On Eliquis Code Visit Inpatient E&M: 04198 Subs Hosp L3
--- NOTE | 2018-12-19 13:03 | CASEMGMT ---
TORITO KIMBROUGH assessment: Face to Face with patient for initial transition planning/care coordination assessment. TORITO KIMBROUGH introduced self and role at [facility], pt voices understanding and consents to assessment at this time. Pt is lying on right side in bed and states no concerns at home at this time. Pt is A/Ox4 at this time and answers all questions appropriately at this time. Care providers, pharmacy, and demographics verified at this time. PCP: Clark Specialists: Crow, cardio; Philip pulm; Leida neurology for sleep study Preferred Pharmacy: [facility] Insurance: MCR A/B, [employer] Prescription Benefit: [employer] Living Will/HPOA: Pt states has LW/HPOA and is aware that only the LW is on file at [facility] at this time. Pt is aware to bring HPOA in when able. Pt states his , Dinorah Deutsch, is HPOA. LNOK: Dinorah Deutsch, Living Arrangements: Pt states lives with in 1 story home with 3 steps into home and states no concerns at home at this time. Pt states is normally independent with ADL's. Transportation: Pt states drives self and states no transportation concerns at this time. DME/HHC: Pt states has the following DME: cane, walker, w/c, grab bars, shower chair, and bipap. Pt states only uses the bipap. Pt states no hx of HHC or SNF in the past. Pt states no concerns with going home at time of discharge. Pt states is retired. Pt states does not smoke or drink ETOH. Pt states no further concerns/needs at this time. CM to follow for any further discharge planning/needs. Advised pt to ask for CM if any further questions/concerns/needs arise, voices understanding. Pt Goal: Home Plan: [place] TORITO KIMBROUGH
[2018-12-19] MEDS: Ceftriaxone 1 GM/50 ML BAG IV (19:51)
[2018-12-19] MEDS: 0.9% NaCl IVPB Med Flush (250 mL) 15 ML IV (20:21)
[2018-12-19] MEDS: Aspirin E.C. 81 MG Tablet PO (22:08)
[2018-12-19] MEDS: Fenofibrate 48 MG Tablet PO (22:08)
[2018-12-20] VITALS (16 sets, daily range): BP systolic 111–142; BP diastolic 42–45; PULSE 70–90; RESP 12–25; TEMP 36.7–36.8; O2SAT 93–100
[2018-12-20] MEDS: Albuterol 2.5 MG/3 ML VIAL.NEB. INHALATION ×4 (02:49→14:55)
[2018-12-20 05:36] LABS: Absolute Neutrophil Count 4.3 X10^3/uL (2.0-7.7); Basophil# 0.03 X10^3/uL; Basophil% 0.5 % (0-1); Eosinophil# 0.13 X10^3/uL; Eosinophils% 2.2 % (0-5); Hematocrit 27.3 % (40-54); Hemoglobin 8.5 g/dL (13.0-16.5); Lymphocyte % 13.7 % (19-41); Mean Corp Hgb Conc 31.1 g/dL (32-36); Mean Corpuscular Volume 109.2 fL (80-94); Mean Platelet Vol. 9.3 fl (6.2-12.0); Monocyte% 8.6 % (0-10); NRBC Flagged by Analyzer 0 % (0-5); Neutrophil # 4.34 X10^3/uL (2.7-7.7); Neutrophil % 74.5 % (47-70); Platelet Count 157 K/mm3 (150-450); RBC Distribution Width SD 59.9 fl (35.1-43.9); White Blood Count 5.8 K/mm3 (4.4-11.0)
[2018-12-20 05:59] LABS: Anion Gap 8 (5-15); BUN 19 mg/dL (7-18); BUN/Creat Ratio 16.5 RATIO (10-20); Calcium,Total 8.2 mg/dL (8.5-10.1); Chloride 105 mmol/L (98-107); Creatinine, Serum 1.15 mg/dL (0.70-1.30); EST Glomerular Filtration Rate 67 mL/min (>60); Est Glom Filt Rate - Afr Amer 81 mL/min (>60); Estimated Creatinine Clearance 53.94 ml/min; Glucose 97 mg/dL (74-106); Potassium 3.3 mmol/L (3.5-5.1); Sodium Level 142 mmol/L (136-145)
[2018-12-20] MEDS: Amiodarone 200 MG Tablet PO (08:14)
[2018-12-20] MEDS: dilTIAZem CD 120 MG Capsule PO (08:14)
[2018-12-20] MEDS: Ferrous Sulfate 325 MG Tablet PO (08:14)
[2018-12-20] MEDS: Citalopram 20 MG Tablet PO (08:14)
[2018-12-20] MEDS: Atorvastatin Calcium 40 MG Tablet PO (08:15)
[2018-12-20] MEDS: APIXABAN 5 MG TABLET PO (08:15)
[2018-12-20] MEDS: Metoprolol(XL)Succ 50 MG Tablet PO (08:15)
[2018-12-20] MEDS: Clopidogrel Bisulfate 75 MG Tablet PO (08:15)
[2018-12-20] MEDS: Furosemide 40 MG/4 ML Vial IV (08:16)
[2018-12-20] MEDS: Lisinopril 40 MG Tablet PO (08:19)
[2018-12-20] MEDS: 0.9% NaCl Peripheral Flush Adult/Peds IV (08:19)
--- NOTE | 2018-12-20 09:13 | CASEMGMT ---
Patient has a Healthcare LW on file at [facility]. He does have a Healthcare POA and is aware it is not on file. He was asked to bring a copy in to [facility]. Julia HAMMOND
--- NOTE | 2018-12-20 11:18 | PN_ITS ---
Subjective: Patient seen and examined. He feels better today. His SOB has improved and he feels relatively better. He is being diuresed. BP meds were adjusted yesterday. BP control has improved. Vitals/I&O's: Vital Signs Temp Pulse Resp BP Pulse Ox 98.0 F 80 16 140/45 H 93 12/20/18 08:10 12/20/18 10:35 12/20/18 10:35 12/20/18 08:10 12/20/18 08:40 Oxygen Flow Rate (L/min) 2 Oxygen Delivery Method Room Air Weight: 247 lb 5.738 oz Body Mass Index (BMI) 40.8 Finger Stick Blood Glucose 98 Intake and Output for Last 24 Hours 12/18/18 12/19/18 12/20/18 23:59 23:59 23:59 Intake Total 425 / 425 1364.75 / 1364.75 40.5 / 40.5 Output Total 2725 / 2725 0 / 0 Balance 425 / 425 -1360.25 / -1360.25 40.5 / 40.5 Microbiology Past 72 Hours 12/18/18 20:11 Mucosa - Nasopharyngeal Respiratory Panel (PCR) - Final 12/19/18 08:23 Urine, Clean Catch Streptococcus pneumoniae Antigen (M - Final 12/19/18 08:23 Urine, Clean Catch Legionella Antigen - Final Laboratory Results 12/20/18 04:54: WBC 5.8, RBC 2.50 L, Hgb 8.5 L, Hct 27.3 L, MCV 109.2 H, MCH 34.0 H, MCHC 31.1 L, RDW Std Deviation 59.9 H, RDW Coeff of Aranza 15.0 H, Plt Count 157, MPV 9.3, Immature Gran % (Auto) 0.500, Neut % (Auto) 74.5 H, Lymph % (Auto) 13.7 L, [place] % (Auto) 8.6, Eos % (Auto) 2.2, Baso % (Auto) 0.5, Absolute Neuts (auto) 4.3, Absolute Lymphs (auto) 0.80 L, Nucleated RBC % 0 12/20/18 04:54: Sodium 142, Potassium 3.3 L, Chloride 105, Carbon Dioxide 29.0, Anion Gap 8, BUN 19 H, Creatinine 1.15, Estim Creat Clear Calc 53.94, Est GFR (MDRD) Af Amer 81, Est GFR (MDRD) Non-Af 67, BUN/Creatinine Ratio 16.5, Glucose 97, Calcium 8.2 L Current Medications Acetaminophen (Tylenol) 650 mg PO Q6H PRN PRN PRN Reason: Mild pain 1-3/Temp > 100.7 F Last Admin: 12/18/18 21:45 Dose: 650 mg Documented by: Albuterol Sulfate (Ventolin Aerosols) 2.5 mg INHALATION Q4H.RT [facility] Last Admin: 12/20/18 10:35 Dose: 2.5 mg Documented by: Amiodarone HCl (Cordarone) 200 mg PO DAILY [facility] Last Admin: 12/20/18 08:14 Dose: 200 mg Documented by: Apixaban (Eliquis) 5 mg PO BID [facility] Last Admin: 12/20/18 08:15 Dose: 5 mg Documented by: Aspirin (Ecotrin) 81 mg PO QHS [facility] Last Admin: 12/19/18 22:08 Dose: 81 mg Documented by: Atorvastatin Calcium (Lipitor) 40 mg PO DAILY [facility] Last Admin: 12/20/18 08:15 Dose: 40 mg Documented by: Citalopram Hydrobromide (Celexa) 20 mg PO DAILY [facility] Last Admin: 12/20/18 08:14 Dose: 20 mg Documented by: Clopidogrel Bisulfate (Plavix) 75 mg PO DAILY [facility] Last Admin: 12/20/18 08:15 Dose: 75 mg Documented by: Diltiazem HCl (Cardizem Cd) 120 mg PO DAILY [facility] Last Admin: 12/20/18 08:14 Dose: 120 mg Documented by: Fenofibrate (Tricor) 48 mg PO QHS [facility] Last Admin: 12/19/18 22:08 Dose: 48 mg Documented by: Ferrous Sulfate (Ferrous Sulfate) 325 mg PO DAILY@0800 [facility] Last Admin: 12/20/18 08:14 Dose: 325 mg Documented by: Furosemide (Lasix) 40 mg IV BID@1000,1800 [facility] Last Admin: 12/20/18 08:16 Dose: 40 mg Documented by: Hydralazine HCl (Apresoline Iv) 10 mg IV Q8H PRN PRN PRN Reason: for SBP>160 Azithromycin 500 mg/ Dextrose 255 mls @ 250 mls/hr IV Q24@2200 [facility] Last Infusion: 12/19/18 23:18 Dose: Infused Documented by: Ceftriaxone Sodium (Rocephin) 1 gm in 50 mls @ 100 mls/hr IV Q24@2000 [facility] Last Infusion: 12/19/18 20:21 Dose: Infused Documented by: Sodium Chloride () 250 mls @ 15 mls/hr IV .[id number] PRN PRN Reason: SALINE FLUSH Last Infusion: 12/20/18 02:00 Dose: 0 mls/hr Documented by: Lisinopril (Zestril) 40 mg PO DAILY [facility] Last Admin: 12/20/18 08:19 Dose: 40 mg Documented by: Magnesium Hydroxide (Milk Of Magnesia) 30 ml PO DAILY PRN PRN PRN Reason: Constipation Metoprolol Succinate (Toprol Xl (Beta Ariadna)) 50 mg PO BID [facility] Last Admin: 12/20/18 08:15 Dose: 50 mg Documented by: Modafinil (Provigil) 200 mg PO BID@0800,1200 [facility] Last Admin: 12/20/18 08:14 Dose: Not Given Documented by: Ondansetron HCl (Zofran) 4 mg IV Q8H PRN PRN PRN Reason: NAUSEA/VOMITING Pantoprazole Sodium (Protonix) 40 mg PO DAILY PRN PRN Reason: Gi Cramping Last Admin: 12/19/18 09:45 Dose: 40 mg Documented by: Sodium Chloride () 10 - 40 ml IV UD PRN PRN Reason: SALINE FLUSH Last Admin: 12/20/18 08:19 Dose: 10 ml Documented by: Medical Necessity - Tobacco Use Smoking Status: Former smoker
[2018-12-20 12:40] LABS: Hemoglobin 9.8 g/dL (13.0-16.5)
--- NOTE | 2018-12-20 13:01 | DCINST_ITS ---
You will use the following diet at home:: Cardiac Your food should be the consistency of: Regular Your liquids should be the consistency of: Regular/Thin Discharge Activity: Return to Normal Activity Weight Bearing Status: Weight bearing as tolerated Call your doctor if you observe: Shortness of breath, Dizziness, Fainting spells, Swelling in the ankles Instructions: Understanding Coronary Artery Disease (CAD) Allergies/Adverse Reactions: Allergies gabapentin Adverse Reaction (Verified 11/02/18 08:41) Other made me nuts warfarin [From Coumadin] Adverse Reaction (Verified 11/02/18 08:41) very sensitive, high INR and GI bleed Medications to take at Discharge Aspirin E.C. [Ecotrin] 81 mg PO QHS 01/22/15 Modafinil [Provigil] 200 mg PO BID 01/22/15 Cholecalciferol (Vitamin D3) [Vitamin D3] 5,000 unit PO DAILY 06/23/16 furosemide 40 mg tablet 40 mg PO DAILY #90 tab 04/26/18 atorvastatin 40 mg tablet 40 mg PO DAILY #90 tab 07/05/18 ferrous sulfate 325 mg (65 mg iron) tablet 325 mg PO DAILY #30 tab 09/18/18 nitroglycerin 0.4 mg sublingual tablet 0.4 mg SUBLINGUAL Q5-15M PRN #25 tab 09/18/18 Clopidogrel Bisulfate [Plavix] 75 mg PO DAILY tab 09/29/18 cinnamon bark 500 mg capsule 1,000 mg PO BID cap 11/02/18 pantoprazole 40 mg tablet,delayed release 40 mg PO DAILY PRN tab 11/02/18 apixaban 5 mg tablet 5 mg PO BID #60 tab 11/09/18 metoprolol succinate ER 50 mg tablet,extended release 24 hr 50 mg PO BID #180 tab 11/29/18 diltiazem ER 120 mg capsule,extended release 12 hr 120 mg PO DAILY #30 cap 12/04/18 amiodarone 200 mg tablet 200 mg PO DAILY #30 tab 12/05/18 Citalopram [Celexa] 20 mg PO DAILY 12/18/18 Fenofibrate 54 mg PO QHS 12/18/18 Lisinopril [Zestril] 40 mg PO DAILY #30 tab 12/20/18 The following prescriptions were given: Lisinopril [Zestril] 40 mg PO DAILY #30 tab Transmission Status: Pending to [facility] Primary Care Physician: Jazz Rodas DO [Primary Care Provider] - Please follow up with your Primary Care Physician in: one week Test Results: Test results from this visit will be discussed in further detail at your follow- up appointment, if applicable. Please Follow Up With: Babatunde Maria MD When: within 2 weeks, call office within one week for appointment Proposed Discharge Date: 12/20/18
--- NOTE | 2018-12-20 13:04 | DS.PCM_ITS ---
Discharge Date and Diagnosis Date of Admission: 12/18/18 Date of Discharge: 12/20/18 - Secondary Discharge Diagnosis Chronic Problems (Last Updated 12/18/18 @ 19:49 by Joseph Stokes MD) Stage III chronic kidney disease (Chronic) Bilateral renal artery stenosis (Chronic) Peripheral vascular occlusive disease (Chronic) Essential (primary) hypertension (Chronic) History of coronary artery stent placement (Chronic 09/28/18) PCI-AGAPITO-SVG to LCx w/ 3.5 x 12 mm Synergy 09/28/18 History of coronary artery bypass surgery (Chronic 03/20/97) CABG X 3 BETHEA to LAD, SVG-LCx, SVG-D1 03/20/1997 HLD (hyperlipidemia) (Chronic) Atherosclerosis of coronary artery bypass graft without angina pectoris (Chronic) PCI-AGAPITO-SVG to LCx w/ 3.5 x 12 mm Synergy 09/28/18 CABG x 3 BETHEA-LAD, SVG-LCX, SVG-D1 03/20/1997 Atherosclerotic heart disease of [place] coronary artery without angina pectoris (Chronic) Atrial fibrillation and flutter (Chronic) s/p ablation x 2 (flutter and fibrillation) Hospital Course and Treatment Imaging Results: Diagnostic Data Chest X-Ray 12/18/18 17:25 IMPRESSION: Chronic interstitial lung changes without superimposed acute alveolar disease. Electronically Signed: Gennaro Lowe MD at 17:41 EDT Tel , Service support , Chest CTA 12/18/18 18:00 IMPRESSION: No pulmonary embolus. Right basilar alveolar disease. Bibasilar interstitial edema. Mediastinal adenopathy as described. Electronically Signed: Gennaro Lowe MD at 18:57 EDT Tel , Service support , Operations: None Procedures: 2-D Echocardiogram Summary of Care Provided: Patient is a 68 y/o male with a PMH as listed. He was admitted through the ED on 12/18/18 with a complaint of chest heaviness and shortness of breath. Symptoms started about 4 to 5 days prior to admission and had gradually worsened. He had assisted mild cough productive of minimal clear sputum. He described chest pressure as mild to moderate and aggravated by exertion. In the ED was noted to be saturating at 85% on room air and blood pressure was elevated. EKG showed no acute ST changes initial troponin was negative. BNP was 128 lactic acid was 2.8. Chest x-ray showed cardiomegaly with no obvious infiltrate or consolidation and chronic alveolar basilar disease. CT angiogram of the chest was negative for PE or dissection and showed right basilar alveolar disease and probable mild vascular congestion. He was admitted and managed for acute hypoxic respiratory failure due to probable acute heart failure with preserved ejection fraction and probable community-acquired pneumonia. He was started on IV ceftriaxone and azithromycin and was diuresed with IV Lasix. Shortness of breath gradually improved. Due to concerns as well as possible angina, case was discussed with patient's key account executive Dr. Delatorre. It was thought that patient's symptoms were likely due to his poorly controlled blood pressure. His lisinopril was increased to 20 mg twice daily to help with blood pressure cont rol and subsequent shortness of breath and chest pressure. Urine for strep and Legionella were negative. Patient improved remarkably and was weaned off of oxygen successfully. 2D echo done showed EF of 65% with indeterminate diastolic function and no regional wall motion abnormalities noted. Pulmonary artery systolic pressure was 55 mmHg which was likely contributing to his shortness of breath. He remained stable, and was discharged home on 12/20/2018. He is to continue taking his Lasix and other medications and lisinopril was increased to 20 mg twice daily. He is follow-up with his primary care doctor and also to follow-up with his key account executive Dr. Maria Patient seen and examined prior to discharge. He felt well and was eager to go home. He had no complaints. Review of systems otherwise negative. Labs and vitals reviewed. Hemoglobin was noted to have dropped to 8.5. Patient had no focus of bleeding and denied of having any melena-like stools. Patient stated he had had a colonoscopy recently which was normal and he was told to have a repeat one in 5 years time. Hemoglobin repeated a few hours later showed hemoglobin was around 9.8 which was his baseline. Home medication reviewed and reconciled. o/e: Vital Signs Height 5 ft 6 in Weight: 247 lb 5.738 oz Weight in Pounds 247.4 lbs BMI 40.9 Pulse Ox 94 Temperature 98.3 F Pulse Rate 74 Respiratory Rate 18 Blood Pressure [2nd BP] 161/70 Blood Pressure 142/45 Blood Pressure Position [2nd Semi-Fowlers BP] Blood Pressure Position Semi-Fowlers General: Alert, Oriented x3, Cooperative, No apparent distress, - - Morbidly obese. HEENT: Atraumatic, PERRLA, EOMI, Normocephalic Oral: Dry Mucosa Neck: Supple, No JVD, Negative Carotid Bruits Lungs: - - clear to auscultation. on room air. Cardiovascular: Regular rate, Regular Rhythm, Normal S1, Normal S2, No murmurs Abdomen: Bowel Sounds Present, Soft, Non Tender, Non-Distended, No Hepato- splenomegaly Extremities: No cyanosis, No edema, Capillary Refill Less than 3 Seconds Skin: No rashes, No breakdown Musculoskeletal: No Tenderness to Palpation of Joints or Extremities Lymphatic: No Cervical, Supraclavicular, or Inguinal Adenopathy Neurological: Cranial nerves II-XII grossly intact, Neuro grossly intact, Motor Exam 5/5 strength throughout Psych/Mental Status: Normal Affect, Appropriate, Alert and oriented to time, place, person, mood and affect Plan as above. He is to follow-up with his primary care doctor and key account executive. Of note, patient did not qualify for home oxygen with his walking pulse ox being 92 to 94% on room air. - Physical Exam Vital Signs Temp Pulse Resp BP Pulse Ox 98.0 F 90 16 140/45 H 93 12/20/18 08:10 12/20/18 11:30 12/20/18 10:35 12/20/18 08:10 12/20/18 08:40 Oxygen Flow Rate (L/min) 2 Oxygen Delivery Method Room Air Weight: 247 lb 5.738 oz Body Mass Index (BMI) 40.8 Finger Stick Blood Glucose 98 Intake and Output for Last 24 Hours 12/18/18 12/19/18 12/20/18 23:59 23:59 23:59 Intake Total 425 / 425 1364.75 / 1364.75 720.5 / 720.5 Output Total 2725 / 2725 1200 / 1200 Balance 425 / 425 -1360.25 / -1360.25 -479.5 / -479.5 Microbiology Past 72 Hours 12/18/18 20:11 Respiratory Panel (PCR) - Final Mucosa - Nasopharyngeal 12/19/18 08:23 Streptococcus pneumoniae Antigen (M - Final Urine, Clean Catch 12/19/18 08:23 Legionella Antigen - Final Urine, Clean Catch Laboratory Tests Past 24 Hrs 12/20/18 12/20/18 12/20/18 04:54 04:54 12:25 WBC 5.8 RBC 2.50 L Hgb 8.5 L 9.8 L Hct 27.3 L 31.0 L MCV 109.2 H MCH 34.0 H MCHC 31.1 L RDW Std Deviation 59.9 H RDW Coeff of Aranza 15.0 H Plt Count 157 MPV 9.3 Immature Gran % (Auto) 0.500 Neut % (Auto) 74.5 H Lymph % (Auto) 13.7 L [place] % (Auto) 8.6 Eos % (Auto) 2.2 Baso % (Auto) 0.5 Absolute Neuts (auto) 4.3 Absolute Lymphs (auto) 0.80 L Nucleated RBC % 0 Sodium 142 Potassium 3.3 L Chloride 105 Carbon Dioxide 29.0 Anion Gap 8 BUN 19 H Creatinine 1.15 Estim Creat Clear Calc 53.94 Est GFR (MDRD) Af Amer 81 Est GFR (MDRD) Non-Af 67 BUN/Creatinine Ratio 16.5 Glucose 97 Calcium 8.2 L Discharge Diet: Low fat/ Low Cholesterol Discharge Activity: Return to Normal Activity Weight Bearing Status: Weight bearing as tolerated Call your doctor if you observe: Shortness of breath, Dizziness, Fainting spells, Swelling in the ankles Home Medications: Medications to take at Discharge Aspirin E.C. [Ecotrin] 81 mg PO QHS 01/22/15 Modafinil [Provigil] 200 mg PO BID 01/22/15 Cholecalciferol (Vitamin D3) [Vitamin D3] 5,000 unit PO DAILY 06/23/16 furosemide 40 mg tablet 40 mg PO DAILY #90 tab 04/26/18 atorvastatin 40 mg tablet 40 mg PO DAILY #90 tab 07/05/18 ferrous sulfate 325 mg (65 mg iron) tablet 325 mg PO DAILY #30 tab 09/18/18 nitroglycerin 0.4 mg sublingual tablet 0.4 mg SUBLINGUAL Q5-15M PRN #25 tab 09/18/18 Clopidogrel Bisulfate [Plavix] 75 mg PO DAILY tab 09/29/18 cinnamon bark 500 mg capsule 1,000 mg PO BID cap 11/02/18 pantoprazole 40 mg tablet,delayed release 40 mg PO DAILY PRN tab 11/02/18 apixaban 5 mg tablet 5 mg PO BID #60 tab 11/09/18 metoprolol succinate ER 50 mg tablet,extended release 24 hr 50 mg PO BID #180 tab 11/29/18 diltiazem ER 120 mg capsule,extended release 12 hr 120 mg PO DAILY #30 cap 12/04/18 amiodarone 200 mg tablet 200 mg PO DAILY #30 tab 12/05/18 Citalopram [Celexa] 20 mg PO DAILY 12/18/18 Fenofibrate 54 mg PO QHS 12/18/18 Lisinopril [Zestril] 40 mg PO DAILY #30 tab 12/20/18 Following Prescrptions Were Given to Patient: Lisinopril [Zestril] 40 mg PO DAILY #30 tab Transmission Status: Received by [facility] Primary Care Physician: Jazz Rodas DO [Primary Care Provider] - Please follow up with your Primary Care Physician in: one week Please Follow Up With: Babatunde Maria MD When: within 2 weeks, call office within one week for appointment Patient Instructions: Understanding Coronary Artery Disease (CAD) Disposition: Home Minutes spent on discharge:: 40 Patient Condition:: Stable Medical Necessity - Tobacco Use Smoking Status: Former smoker Meaningful Use Info Meaningful Use Diagnoses (Choose all that apply): CHF - CHF RAMAKRISHNA/ARB ordered at discharge?: Yes Documented LVEF (%): 65 Code Visit Inpatient E&M: 44644 Disch Hosp
--- NOTE | 2018-12-21 14:07 | CASEMGMT ---
Case Management DC F/u Call: DC Date: 12/20/18 DC Diagnosis: No primary DC Diagnosis, secondary is multiple chronic conditions. Aftercare given on Understanding CAD. Meaningful Use Diagnoses on CHF noted. DC Disposition: Home LACE/STRATA: 01/11 Called Patient cell phone number on listed demographics, no answer, did identify patient and this service writer advisor introduced self/role. Provided contact number to return call if having any issues, concerns or questions with aftercare instructions, medications or f/u appointments. IJEOMA Hsu
== END 2018-12-20 15:29 | disposition home or self-care (01) | DRG 291 ==
LOC: ED 17:26 → PCU 19:45
PROVIDERS: Admitting Provider Hospitalist; Emergency Provider Emergency Medicine; Family Provider Internal Medicine; PCP Internal Medicine; Visit Provider Student in an Organized Health Care Education/Training Program
DX: I13.0 Hypertensive heart and chronic kidney disease with heart failure and stage 1 through stage 4 chronic kidney disease, or unspecified chronic kidney disease (principal); I50.31 Acute diastolic (congestive) heart failure; J96.01 Acute respiratory failure with hypoxia; J18.9 Pneumonia, unspecified organism; J84.9 Interstitial pulmonary disease, unspecified; E87.2 Acidosis; Z68.41 Body mass index [BMI] 40.0-44.9, adult; I48.92 Unspecified atrial flutter; I48.0 Paroxysmal atrial fibrillation; I25.10 Atherosclerotic heart disease of native coronary artery without angina pectoris; N18.3 Chronic kidney disease, stage 3 (moderate); E78.5 Hyperlipidemia, unspecified; I73.9 Peripheral vascular disease, unspecified; G47.33 Obstructive sleep apnea (adult) (pediatric); F32.9 Major depressive disorder, single episode, unspecified; F41.9 Anxiety disorder, unspecified; E66.01 Morbid (severe) obesity due to excess calories; Z79.01 Long term (current) use of anticoagulants; Z79.02 Long term (current) use of antithrombotics/antiplatelets; Z79.82 Long term (current) use of aspirin; Z79.899 Other long term (current) drug therapy; Z95.1 Presence of aortocoronary bypass graft; Z95.5 Presence of coronary angioplasty implant and graft; Z87.891 Personal history of nicotine dependence
CPT/HCPCS: 36415; 36600; 71045; 71275; 80048; 82803; 83605; 83880; 84484; 85014; 85018; 85025; 85610; 87040; 87449; 87633; 93005; 93306; 94002; 94003; 94640; 94667; 97161; 97166; 99285; J7030; J7050; Q9957; Q9967; A4216; C8929; J1940

== ENCOUNTER 2018-12-20 06:39 | Outpatient (RCR) | payer MEDICARE, OTHER, SELFPAY ==
[2018-09-28 10:32] VITALS: BMI 40.9
[2018-11-02 08:40] VITALS: BMI 40.2
[2018-12-10 00:57] VITALS: BP 144/62; BP 150/60
--- NOTE | 2018-12-18 10:27 | PCM.CR.ITP ---
General Information - General Information Admitting Diagnosis: PCI with stenting - Education/Goals Cardiac Rehabilitation Goals: 1. Maintain the individual as the primary focus of care. 2. To improve the patient's quality of life. 3. Identification of cardiac risk factors and provide cardiac risk factor management. 4. Enhance the psychosocial status of the patient. 5. Reconditioning enough to allow the patient to resume customary activities. 6. Control symptoms of cardiac disease Scale for measuring improvement of personal goals: Enter appropriate number in Comments. 2 = Unchanged. 3 = Slightly Better. 4 = Moderate Improvement. 5 = Met my Goal Exercise - 60-Day Assessment - Visit Date of Eval: 12/18/18 Session #:: 18 - Pt on hold due to new onset of A-fib - Stages of Change Stages of Change:: Action - Physician Prescribed Exercise Modalities: Biodyne, Madi Garcia Frequency (days/week): 3 Duration (Minutes):: 30-45 Intensity: 60-80% age predicted maximum heart rate reserve METs - Progression: 0.5-1.0 MET, RPE 11-14 WEEK: 4.5 Target Heart Rate:: 98-128 Max HR 144 - Hypertension Resting Blood Pressure:: 110/44 Peak Exercise Blood Pressure:: 126/52 Medication Changes:: Yes - d/c amlodapine and increased metoprolol to 50 bid - Intervention Home Exercise/Activity Goal:: Sitting Time <3 hrs/day - Education Goals:: Warm-up, RPE CASTRO Scale, S/S, Safe Exercise, Self-Monitoring - Exercise Program Goals Exercise Program Goals: Aerobic Activity >30 min, B/P <130/80 Nutrition - Initial Assessment - Program Goals Nutrition Program Goals: LDL <70. Total Cholesterol <200. HDL >45. Triglycerides <150. HgbA1C <7%. BMI <25 - Diabetes Do you monitor your blood sugar at home?: No Nutrition - 60-Day Assessment - Program Goals Nutrition Program Goals: LDL <70. Total Cholesterol <200. HDL >45. Triglycerides <150. HgbA1C <7%. BMI <25 - Visit Date of Eval: 12/18/18 - Stages of Change Stages of Change:: Action - Weight Management Weight:: 108.862 kg - Intervention Referral to dietitian:: No Referral to Diabetic Clinic:: No Will attend diet classes:: Yes - Education Attended class for:: Signs & symptoms of hypoglycemia, Signs & symptoms of hyperglycemia, Relate diabetes to coronary artery disease, Healthy eating Tobacco - Initial Assessment - Program Goals Tobacco Program Goals: Complete smoking cessation. Attend education classes. Improve Knowledge Test score - Learning Barriers Learning Barriers: Ready to Learn Tobacco - 60-Day Assessment - Program Goals Tobacco Program Goals: Complete smoking cessation. Attend education classes. Improve Knowledge Test score - Stage of Change Stages of Change:: Action - Learning Barriers Learning Barriers: Participates in education - Family Support Do you have family support?: Yes - Tobacco Use Tobacco Use: Non-smoker Do you use smokeless tobacco?: No - Intervention Smoking Cessation Referral:: No Individual Education/Counseling:: No Education Schedule Given:: Yes - Education Attended class for:: Treating Heart Disease, How The Heart Works, What it means to have Heart Disease, How Coronary Artery Disease is Diagnosed, Heart Procedures, What Heart Medications Do, Risk Factors & Modifications, Living an Active Life, Nutrition, Emotions & Heart Disease, Stress Management & Relaxation, Sleep Disorders & Heart Disease Psychosocial - Initial Assess - Target Goals Target Goals: Assess presence or absence of depression. Using a valid screening tool, maximizes coping skills. Positive support system - Psychosocial Test Tool Used:: HANDS Depression Questionnaire - Assistive Devices Fall Risk Assessed:: Yes Psychosocial - 60-Day Assess - Target Goals Target Goals: Assess presence or absence of depression. Using a valid screening tool, maximizes coping skills. Positive support system - Stages of Change Stages of Change:: Action - Psychosocial Test Tool Used:: HANDS Depression Questionnaire - Intervention PS - Interventions: Yes Attend Stress Management Classes, Yes Uses Stress Management Skills, No Referral to Mental Health, No Referral to [facility] Case Management, No Referral to Physician - Education Attended classes for:: Coping techniques, Signs & symptoms of depression, Stress management, Relaxation techniques - Assistive Devices Assistive Devices:: None Fall Risk Assessed:: Yes Patient Health Questionnaire 60-Day Re-eval Assessment 1. Little interest or pleasure in doing things: Nearly every day 2. Feeling down, depressed, or hopeless: More than half the days 3. Trouble falling or staying asleep, or sleeping too much: Several days 4. Feeling tired or having little energy: Nearly every day 5. Poor appetite or overeating: Several days 6. Feeling bad about yourself -- or that you are a failure or have let yourself or your family down: Not at all 7. Trouble concentrating on things, such as reading the newspaper or watching television: Several days 8. Moving or speaking so slowly that other people could have noticed. Or the opposite - being so fidgety or restless that you have been moving around a lot more than usual: Not at all 9. Thoughts that you would be better off , or of hurting yourself in some way: Not at all How difficult have these problems made it for you to do your work, take care of things at home, or get along with other people?: Somewhat difficult Total Score: 11 Self-Efficacy 60-Day Re-eval Assessment We would like to know how confident you are in doing certain activities. Please select your confidence level for:: Select your confidence level for the following using the scale 1-10 where 1 is not at all confident and 10 is totally confident. Your score is the average of all 6 responses. Fatigue: How confident are you that you can keep the fatigue caused by your disease from interfering with the things you want to do? Select Number: 2 Physical Discomfort or Pain: How confident are you that you can keep the physical discomfort or pain of your disease from interfering with the things you want to do? Select Number: 2 Emotional Distress: How confident are you that you can keep the emotional distress caused by your disease from interfering with the things you want to do? Select Number: 4 Other Symptoms or Health Problems: How confident are you that you can keep other symptoms or health problems from interfering with the things you want to do? Select Number: 4 Different Tasks and Activities: How confident are you that you can do the different tasks and activities needed to manage your health condition so as to reduce your need to see a doctor? Select Number: 7 Medication: How confident are you that you can do things other than just taking medication to reduce how much your illness affects your everyday life? Select Number: 7 Total Score:: 4
[2018-12-18 10:36] VITALS: BP 110/44; BP 126/52
[2018-12-18 20:10] VITALS: BMI 40.8
== END 2019-01-08 23:59 ==
LOC: CR 06:39
PROVIDERS: Family Provider Internal Medicine; PCP Internal Medicine; Referring Provider Internal Medicine Cardiovascular Disease; Visit Provider Internal Medicine Cardiovascular Disease
DX: Z95.5 Presence of coronary angioplasty implant and graft (principal)
CPT/HCPCS: 93798

== ENCOUNTER → 2018-12-26 14:51 | Outpatient (CLI) | payer MEDICARE, OTHER, SELFPAY ==
[2018-09-28 10:32] VITALS: BMI 40.9
[2018-12-18 20:10] VITALS: BMI 40.8
--- NOTE | 2018-12-26 14:55 | RAD_ITS ---
STUDY: X-RAY CHEST REASON FOR EXAM: Male, 68 years old. Cough. TECHNIQUE: PA and lateral views of the chest. COMPARISON: Comparison is made with prior study dated February 17, 2019. FINDINGS: Hyperinflation. There is no demonstrated pleural abnormality. Sternal cerclage wires and vascular clips are present from a prior sternotomy and coronary artery bypass graft procedure (CABG). Normal mediastinum and laxmi. Normal visualized pulmonary arteries. There is atherosclerotic calcification of the aortic arch with tortuosity. There are diffuse degenerative changes of the visualized thoracic spine. Prior right shoulder replacement. There is no demonstrated abnormality of the visualized soft tissue structures of the upper abdomen. RAD/Chest PA and Lateral IMPRESSION: No acute abnormality is seen. Electronically Signed: Osvaldo Manuel, at 15:11 EDT , Service support ,
== END ==
PROVIDERS: Family Provider Internal Medicine; PCP Internal Medicine; Referring Provider Nurse Practitioner; Visit Provider Nurse Practitioner
DX: R05 Cough (principal)
CPT/HCPCS: 71046

== ENCOUNTER 2019-01-10 08:25 | Outpatient (RCR) | payer MEDICARE, OTHER, SELFPAY ==
[2018-09-28 10:32] VITALS: BMI 40.9
[2019-01-05 08:29] VITALS: BMI 40.1
[2019-01-09 00:52] VITALS: BP 110/44; BP 126/52
== END 2019-02-08 23:59 ==
LOC: CR 08:25
PROVIDERS: Family Provider Internal Medicine; PCP Internal Medicine; Referring Provider Internal Medicine Cardiovascular Disease; Visit Provider Internal Medicine Cardiovascular Disease
DX: Z95.5 Presence of coronary angioplasty implant and graft (principal)
CPT/HCPCS: 93798

== ENCOUNTER → 2019-01-12 10:19 | Outpatient (CLI) | payer MEDICARE, OTHER, SELFPAY ==
[2018-09-28 10:32] VITALS: BMI 40.9
[2019-01-05 08:29] VITALS: BMI 40.1
--- NOTE | 2019-01-12 10:25 | RAD_ITS ---
STUDY: X-RAY - THORACIC SPINE REASON FOR EXAM: Male, 68 years old. Pain started one month ago TECHNIQUE: 3 view(s) of the thoracic spine were obtained. COMPARISON: None. FINDINGS: Normal kyphosis of the thoracic spine. There is no substantial scoliosis. There is multilevel endplate spondylosis of the thoracic vertebrae. There is multilevel disc space narrowing of the thoracic spine. The soft tissue structures are unremarkable. Sternal wires are noted. RAD/Thoracic Spine 3 Views IMPRESSION: No compression fracture. Multilevel degenerative changes. Electronically Signed: Alfred Hubbard MD ([place]) at 17:13 EDT , Service support ,
== END ==
PROVIDERS: Family Provider Internal Medicine; PCP Internal Medicine; Referring Provider Nurse Practitioner Family; Visit Provider Nurse Practitioner Family
DX: M54.6 Pain in thoracic spine (principal)
CPT/HCPCS: 72072

== ENCOUNTER → 2019-02-28 12:24 | Outpatient (CLI) | payer MEDICARE, OTHER, SELFPAY ==
[2018-09-28 10:32] VITALS: BMI 40.9
[2019-02-07 10:36] VITALS: BMI 40.1
[2019-02-28 12:30] VITALS: PULSE 102; PULSE 71; PULSE 84; PULSE 85; PULSE 88; PULSE 93; PULSE 95; PULSE 98; O2SAT 95; O2SAT 97; O2SAT 98; O2SAT 99
--- NOTE | 2019-02-28 12:45 | CPS ---
PT WAS HAVING HIP PAIN AT 3 MIN AND HAD A 30 SEC REST. HE ALSO DID THIS AGAIN AT MINUTE 5. REQUIRED A 30 SEC REST FOR SOB AND HIP PAIN.
--- NOTE | 2019-03-01 08:17 | PCM.PSN.6M ---
PSN 6 Minute Walk Test - 6 Minute Walk Test 6 Minute Walk Test: 6 Minute Walk Test PSN:6-Minute Walk Test Start: 02/28/19 12:42 Freq: Status: Active Protocol: [id number] Document 02/28/19 12:30 EW (Rec: 02/28/19 12:46 EW [id number]) 6 Minute Walk Test Date Performed 02/28/19 Time Performed 12:30 Height 5 ft 6 in Weight: 240 lb Weight in Pounds 240.[address]: Rodolfo Palacios Assistive device used: None Pre-test Oxygen Delivery Method Room Air Pulse Ox (%) 97 Pulse Rate (60-100 beats/min) 71 Dyspnea Amara Scale (0-10) 3 Exertion Amara Scale (6-20) 8 1st minute Oxygen Delivery Method Room Air Pulse Ox (%) 97 Pulse Rate (60-100 beats/min) 84 2nd minute Oxygen Delivery Method Room Air Pulse Ox (%) 95 Pulse Rate (60-100 beats/min) 85 3rd minute Oxygen Delivery Method Room Air Pulse Ox (%) 97 Pulse Rate (60-100 beats/min) 93 Number of Rests Taken 1 Reported Symptoms Increased Work of Breathing 4th minute Oxygen Delivery Method Room Air Pulse Ox (%) 99 Pulse Rate (60-100 beats/min) 95 5th minute Oxygen Delivery Method Room Air Pulse Ox (%) 99 Pulse Rate (60-100 beats/min) 102 H Number of Rests Taken 1 Reported Symptoms Increased Work of Breathing 6th minute Oxygen Delivery Method Room Air Pulse Ox (%) 95 Pulse Rate (60-100 beats/min) 98 Post-test Oxygen Delivery Method Room Air Pulse Ox (%) 98 Pulse Rate (60-100 beats/min) 88 Dyspnea Amara Scale (0-10) 4 Exertion Amara Scale (6-20) 14 02/28/19 12:45 Cardiopulmonary Services by Julia Patel PT WAS HAVING HIP PAIN AT 3 MIN AND HAD A 30 SEC REST. HE ALSO DID THIS AGAIN AT MINUTE 5. REQUIRED A 30 SEC REST FOR SOB AND HIP PAIN. Initialized on 02/28/19 12:45 - END OF NOTE - Interpretation Interpretation: The patient ambulated feet over the course of 6 minutes beginning on room air without assistive devices. Pretesting oxygen saturation was noted to be 97% on room air. With ambulation, the [place] oxygen saturation was 95%. There was no significant exertional oxygen desaturation. - Recommendations Recommendations: There is no indication for the use of supplemental oxygen at this time.
== END ==
PROVIDERS: Family Provider Internal Medicine; PCP Internal Medicine; Referring Provider Internal Medicine Critical Care Medicine; Visit Provider Internal Medicine Critical Care Medicine
DX: G47.33 Obstructive sleep apnea (adult) (pediatric) (principal); R06.02 Shortness of breath
CPT/HCPCS: 94618; 95811

== ENCOUNTER → 2019-03-06 10:06 | Outpatient (CLI) | payer MEDICARE, OTHER, SELFPAY ==
[2018-09-28 10:32] VITALS: BMI 40.9
[2019-02-07 10:36] VITALS: BMI 40.1
--- NOTE | 2019-03-06 13:26 | PFTCOMP_ITS ---
COMPLETE PULMONARY FUNCTION TEST INTERPRETATION Brief HPI: Patient is a 68 year old male, currently under the care of Dr. Palacios, who presents to [facility] for complete pulmonary function tests secondary to diagnosis of dyspnea. Respiratory therapist reports good effort and reproducible results. Interpretation: Forced expiration spirometry shows no large airways obstructive ventilatory defect with an FEV1 of 100% predicted. There is no significant bronchodilator response by strict ATS criteria. Spirograms are of good quality and plateau normally. The respiratory flow volume loop shows a normal pattern. Lung volumes by body plethysmography show a normal total lung capacity at 5.55 L, 100% predicted. All other lung volumes are within normal limits. Diffusion capacity by carbon monoxide is at the lower limit of normal at 70% predicted. The airway resistance is normal. No previous pulmonary function tests were available for review. Impression: These pulmonary function tests are grossly within normal limits. However, diffusing capacity is at the lower limit of normal, so early pulmonary vascular disease cannot be excluded.
== END ==
PROVIDERS: Family Provider Internal Medicine; PCP Internal Medicine; Referring Provider Internal Medicine Critical Care Medicine; Visit Provider Internal Medicine Critical Care Medicine
DX: R06.02 Shortness of breath (principal)
CPT/HCPCS: 94060; 94726; 94729

== ENCOUNTER → 2019-06-01 07:02 | Outpatient (CLI) | payer MEDICARE, OTHER, SELFPAY ==
[2018-09-28 10:32] VITALS: BMI 40.9
[2019-04-18 11:24] VITALS: BMI 39.5
[2019-06-01 07:18] LABS: Bacteria 0 SEEN /hpf (None Seen); Mucous, Urine 0 SEEN /hpf (<or=2+); Red Blood Cells-Urine 0 SEEN /hpf (0-5)
[2019-06-01 08:04] LABS: Absolute Lymphocyte Count 1.11 X10^3/uL (0.83-4.51); Absolute Neutrophil Count 3.6 X10^3/uL (2.0-7.7); Basophil# 0.04 X10^3/uL; Basophil% 0.7 % (0-1); Eosinophil# 0.13 X10^3/uL; Eosinophils% 2.4 % (0-5); Hematocrit 43.1 % (40-54); Lymphocyte # 1.11 X10^3/ul (4.0); Lymphocyte % 20.4 % (19-41); Mean Corp Hgb Conc 32.5 g/dL (32-36); Mean Corpuscular Hgb 31.5 pg (27.0-32.0); Mean Corpuscular Volume 97.1 fL (80-94); Mean Platelet Vol. 9.2 fl (6.2-12.0); Monocyte# 0.55 X10^3/uL; Monocyte% 10.1 % (0-10); NRBC Flagged by Analyzer 0 % (0-5); Neutrophil # 3.56 X10^3/uL (2.7-7.7); Neutrophil % 65.5 % (47-70); Platelet Count 214 K/mm3 (150-450); RBC Distribution Width CV 17.4 % (11.6-14.6); RBC Distribution Width SD 60.7 fl (35.1-43.9); Red Blood Count 4.44 M/mm3 (4.6-6.2); White Blood Count 5.4 K/mm3 (4.4-11.0)
[2019-06-01 08:07] LABS: Color, Urine Yellow (Yellow); Glucose, Dipstick Normal (Normal); Ketone-Dipstick Negative (Negative); Leukocyte Esterase-Dipstick Negative /ul (Negative); Nitrite-Dipstick Negative (Negative); Occult Blood-Urine Negative /ul (Negative); Protein-Dipstick 30 mg/dl (Negative); Specific Gravity, Urine 1.015 (1.002-1.030); Urine Bilirubin Dipstick Negative (Negative); Urine Clarity Clear (Clear); Urine Urobilinogen Normal (Normal)
[2019-06-01 08:31] LABS: Hyaline Cast 0-5 SEEN /lpf (0-5); Squamous Epithelial Cells - UA 0-5 SEEN /hpf (0-5); White Blood Cells 0-5 SEEN /hpf (0-5)
[2019-06-01 09:02] LABS: AST(SGOT) 14 U/L (15-37); Alanine Aminotransfer ALT/SGPT 25 U/L (16-61); Albumin, Serum 3.8 g/dL (3.2-5.0); Alkaline Phosphatase 49 U/L (45-117); Anion Gap 4 (5-15); BUN 44 mg/dL (7-18); BUN/Creat Ratio 23.8 RATIO (10-20); Calcium,Total 9.5 mg/dL (8.5-10.1); Chloride 105 mmol/L (98-107); Cholesterol 214 mg/dL (200); Creatinine, Serum 1.85 mg/dL (0.70-1.30); EST Glomerular Filtration Rate 39 mL/min (>60); Est Glom Filt Rate - Afr Amer 47 mL/min (>60); Globulin 3.7 g/dL (2.2-4.2); Glucose 116 mg/dL (74-106); High Density Lipoprotein 50 mg/dL; Phosphorus 3.5 mg/dL (2.5-4.9); Potassium 4.3 mmol/L (3.5-5.1); Protein, Total 7.5 g/dL (6.4-8.2); Sodium Level 142 mmol/L (136-145); Thyroid Stim Hormone (TSH) 2.19 uIU/mL (0.358-3.74); Triglycerides 194 mg/dL; Very Low Density Lipoprotein 39 mg/dL (5-40)
[2019-06-01 09:07] LABS: Microalbumin:Creatinine Ratio 92.2 mg/g CRE (<30 mg/g CRE); Protein, Urine (Random) 39.2 mg/dL (<11.9); Protein:Creat Ratio 278 mg/g CRE (0-200)
[2019-06-01 09:14] LABS: PTHIN 30.8 pg/mL (18.4-80.1)
[2019-06-05 11:22] LABS: Vitamin B12 455 pg/mL (211-911); Vitamin D,25 Hydroxy 26.3 ng/mL
== END ==
PROVIDERS: PCP Internal Medicine; Referring Provider Internal Medicine Nephrology; Visit Provider Internal Medicine Nephrology
DX: I13.10 Hypertensive heart and chronic kidney disease without heart failure, with stage 1 through stage 4 chronic kidney disease, or unspecified chronic kidney disease (principal); N18.3 Chronic kidney disease, stage 3 (moderate); E78.00 Pure hypercholesterolemia, unspecified; R73.01 Impaired fasting glucose; E53.8 Deficiency of other specified B group vitamins; E55.9 Vitamin D deficiency, unspecified
CPT/HCPCS: 36415; 80053; 80061; 81001; 82043; 82306; 82570; 82607; 83970; 84100; 84156; 84443; 85025

== ENCOUNTER 2019-06-18 10:35 | Inpatient (IN) | payer MEDICARE, OTHER, SELFPAY ==
[2018-09-28 10:32] VITALS: BMI 40.9
[2019-04-18 11:24] VITALS: BMI 39.5
[2019-06-18] VITALS (9 sets, daily range): BP systolic 96–160; BP diastolic 44–74; PULSE 54–83; RESP 18–24; TEMP 36.2–36.8; O2SAT 72–97; BMI 39.2; BMI 39.8; BMI 39.9
--- NOTE | 2019-06-18 10:50 | EKG12_ITS ---
Test Reason : Blood Pressure : / mmHG Vent. Rate : 059 BPM Atrial Rate : 059 BPM P-R Int : 188 ms QRS Dur : 124 ms QT Int : 578 ms P-R-T Axes : 049 -22 144 degrees QTc Int : 572 ms Sinus bradycardia Non-specific intra-ventricular conduction delay Marked ST abnormality, possible inferolateral subendocardial injury vs. IVCD effect Abnormal ECG Confirmed by SCOTT PERERA, ANDRIA ([id number]), restaurant expeditor ARIADNE RAO ([id number]) on 06/19/2019 1:42:03 PM Referred By: VIGNESH Confirmed By:ANDRIA CHAVEZ MD
--- NOTE | 2019-06-18 10:52 | RAD_ITS ---
STUDY: X-RAY CHEST REASON FOR EXAM: Male, 68 years old. Sob for a couple weeks; extreme today TECHNIQUE: Single AP portable view of the chest. COMPARISON: Comparison is made with prior examination dated December 26, 2018. FINDINGS: EKG electrodes are seen. There is evidence of pulmonary vascular congestion and mild CHF. There is no demonstrated pleural abnormality. Sternal cerclage wires and vascular clips are present from a prior sternotomy and coronary artery bypass graft procedure (CABG). Borderline cardiomegaly Normal mediastinum and laxmi. Normal visualized pulmonary arteries. There is atherosclerotic calcification of the aortic arch with tortuosity. Normal visualized thoracic spine. Prior right reverse shoulder replacement. There is no demonstrated abnormality of the visualized soft tissue structures of the upper abdomen. RAD/Chest 1 View (Portable) IMPRESSION: Mild cardiomegaly with a mild degree of CHF. Electronically Signed: Osvaldo Manuel, at 11:41 EDT , Service support ,
--- NOTE | 2019-06-18 10:52 | ED.DCSUM_ITS ---
History of Present Illness Chief Complaint: Shortness of Breath Informant: Patient Onset: - - Acute on chronic, worse this morning Current Severity: Severe Maximum Severity: Severe Narrative: Patient presents secondary to shortness of breath and chest heaviness. Patient states he is been having problems with shortness of breath for some time. He had multiple tests done by pulmonology in March with no definitive diagnosis. Patient states usually he can sit back in a chair and breathe slowly to get symptoms to resolve. This morning his symptoms were worse and would not resolve with slow breathing. On arrival to the emergency room O2 sat was noted to be 72% on room air. Nursing staff states oxygen only went to 86% on 6 L nasal cannula. At the time of my examination he is on a nonrebreather and satting in the low to mid 90s. Patient states that his chest pressure is significantly improved with the oxygen. Patient does have history of coronary artery disease. He has had bypass surgery as well as one cardiac stent. Although his medication list includes Eliquis, he states he has not been taking this, only his Plavix. - Past Medical History (1) Anxiety and depression Status: Chronic (2) Atherosclerosis of coronary artery bypass graft without angina pectoris Status: Chronic Comment: PCI-AGAPITO-SVG to LCx w/ 3.5 x 12 mm Synergy 09/28/18 CABG x 3 BETHEA-LAD, SVG-LCX, SVG-D1 03/20/1997 (3) Bilateral renal artery stenosis Status: Chronic (4) Chronic diastolic (congestive) heart failure Status: Chronic (5) Chronic kidney disease Status: Chronic (6) Essential (primary) hypertension Status: Chronic (7) HLD (hyperlipidemia) Status: Chronic (8) History of coronary artery bypass surgery Status: Chronic Comment: CABG X 3 BETHEA to LAD, SVG-LCx, SVG-D1 03/20/1997 (9) History of coronary artery stent placement Status: Chronic Comment: PCI-AGAPITO-SVG to LCx w/ 3.5 x 12 mm Synergy 09/28/18 (10) Paroxysmal atrial fibrillation Status: Chronic Comment: RFA (11) Paroxysmal atrial flutter Status: Chronic Comment: RFA (12) Sleep apnea Status: Chronic Past Medical History - Allergies and Home Meds Allergies/Adverse Reactions: Allergies gabapentin Adverse Reaction (Verified 06/18/19 10:42) Other made me nuts warfarin [From Coumadin] Adverse Reaction (Verified 06/18/19 10:42) very sensitive, high INR and GI bleed Primary Care Physician: Jazz Rodas DO [Primary Care Provider] - Doctors: Dr. Maria Prior records reviewed: Yes Surgical History: coronary bypass surgery, - Lives: Spouse/ Significant Other Smoking Status: Former smoker - Family History Paternal Family History: Family History (Last Reviewed 04/19/19 @ 07:25 by Alice Schultz) Father Myocardial infarction Heart disease Mother CAD (coronary artery disease) Brother CAD (coronary artery disease) Diabetes Hx of CABG Sister Hypertension Pulmonary embolism Family History: Reports: Heart Disease, Hypertension Maternal Family History: Family History (Last Reviewed 04/19/19 @ 07:25 by Alice Schultz) Father Myocardial infarction Heart disease Mother CAD (coronary artery disease) Brother CAD (coronary artery disease) Diabetes Hx of CABG Sister Hypertension Pulmonary embolism Family History: Reports: Stroke Review of Systems General: Denies: Chills, Fever Eyes: Denies: Visual changes - bilaterally ENT: Denies: Bilateral ear pain Cardiovascular: Reports: Chest pain Respiratory: Reports: Dyspnea, Cough - Minimal cough Gastrointestinal: Denies: Abdominal pain, Nausea, Vomiting, Diarrhea Genitourinary: Denies: Dysuria Musculoskeletal: Denies: Swelling, Extremity Pain Skin: Denies: Rash, Wounds Neurological: Denies: Headache Allergy: Denies: Uticaria Physical Exam Vital Signs/Narrative: Vital Signs Temp Pulse Resp BP Pulse Ox 06/18/19 10:45 98.0 F 73 24 H 141/74 H 94 06/18/19 10:37 98.3 F 83 24 H 96/55 L 72 Inital Vital Signs reviewed: Yes General: Well nourished, Well developed Head: Normocephalic ENT: Moist mucous membranes Neck: Supple Cardiovascular: Regular rate, Regular rhythm Respiratory: Chest tenderness, - - Scant expiratory wheezes. Overall good air movement. Abdomen: Soft, Nontender, - - Abdomen slightly distended. Extremities: Nontender, No edema Skin: Normal color, No rash Neurological: Alert, Oriented x3, - - Speaking full sentences. Psychological: Normal affect Diagnostic/Tx/Re-eval Impressions Chest X-Ray 06/18/19 10:52 IMPRESSION: Mild cardiomegaly with a mild degree of CHF. Electronically Signed: Osvaldo Manuel, at 11:41 EDT , Service support , 06/18/19 10:52 Chest 1 View (Portable) [RAD] Stat Laboratory Results 06/18/19 06/18/19 06/18/19 10:45 10:45 10:45 WBC 11.9 H RBC 4.67 Hgb 14.8 Hct 45.7 MCV 97.9 H MCH 31.7 MCHC 32.4 RDW Std Deviation 55.4 H RDW Coeff of Aranza 16.0 H Plt Count 249 MPV 9.6 Immature Gran % (Auto) 1.100 H Neut % (Auto) 56.7 Lymph % (Auto) 31.8 [place] % (Auto) 7.0 Eos % (Auto) 2.6 Baso % (Auto) 0.8 Absolute Neuts (auto) 6.8 Absolute Lymphs (auto) 3.79 Nucleated RBC % 0 APTT D-Dimer Quant (PE/DVT) 2.12 H* Sodium 140 Potassium 3.7 Chloride 108 H Carbon Dioxide 21.0 Anion Gap 11 BUN 81 H Creatinine 2.94 H Estim Creat Clear Calc 21.10 Est GFR (MDRD) Af Amer 27 L Est GFR (MDRD) Non-Af 23 L BUN/Creatinine Ratio 27.6 H Glucose 202 H Calcium 9.5 Troponin I 0.164 H B-Natriuretic Peptide 06/18/19 06/18/19 10:45 10:45 WBC RBC Hgb Hct MCV MCH MCHC RDW Std Deviation RDW Coeff of Aranza Plt Count MPV Immature Gran % (Auto) Neut % (Auto) Lymph % (Auto) [place] % (Auto) Eos % (Auto) Baso % (Auto) Absolute Neuts (auto) Absolute Lymphs (auto) Nucleated RBC % APTT 27.0 D-Dimer Quant (PE/DVT) Sodium Potassium Chloride Carbon Dioxide Anion Gap BUN Creatinine Estim Creat Clear Calc Est GFR (MDRD) Af Amer Est GFR (MDRD) Non-Af BUN/Creatinine Ratio Glucose Calcium Troponin I B-Natriuretic Peptide 239.0 H - EKG Initial EKG Interpretation: Sinus Rhythm - Sinus at [address] depression. This is a new change when compared to prior study of December 2018. Follow-up EKG Interpretation: Sinus Bradycardia - Sinus bradycardia [address] depression in the lateral leads. - Medical Decision Making Patient has maintained his O2 sats in the mid 90s on nonrebreather mask. Test results are discussed with patient and at bedside. He denies any chest pain currently. He is given aspirin on arrival. Patient's d-dimer is elevated and troponin is in the indeterminate range. His renal function is worse than baseline and I am unable to get a CTA of his chest or give him Lovenox. He was started on a heparin drip at this time with hopes that patient can have a VQ scan on the floor. I will speak with hospitalist regarding admission. ED Disposition - Plan for ED Patient: Disposition: Acute Care Hospital [facility] Diagnosis: Hypoxia, Mild congestive heart failure, Chest pain Referrals: Jazz Rodas DO [Primary Care Provider] -
[2019-06-18] MEDS: Aspirin 81 MG TAB.CHEW 324 MG PO (10:59)
[2019-06-18] MEDS: 0.9% Normal Saline 1,000 ML 15 ML IV (11:00)
[2019-06-18 11:03] LABS: Absolute Lymphocyte Count 3.79 X10^3/uL (0.83-4.51); Absolute Neutrophil Count 6.8 X10^3/uL (2.0-7.7); Basophil# 0.09 X10^3/uL; Basophil% 0.8 % (0-1); Eosinophil# 0.31 X10^3/uL; Eosinophils% 2.6 % (0-5); Hematocrit 45.7 % (40-54); Hemoglobin 14.8 g/dL (13.0-16.5); Lymphocyte # 3.79 X10^3/ul (4.0); Lymphocyte % 31.8 % (19-41); Mean Corp Hgb Conc 32.4 g/dL (32-36); Mean Corpuscular Hgb 31.7 pg (27.0-32.0); Mean Corpuscular Volume 97.9 fL (80-94); Mean Platelet Vol. 9.6 fl (6.2-12.0); Monocyte# 0.83 X10^3/uL; NRBC Flagged by Analyzer 0 % (0-5); Neutrophil # 6.76 X10^3/uL (2.7-7.7); Neutrophil % 56.7 % (47-70); Platelet Count 249 K/mm3 (150-450); RBC Distribution Width SD 55.4 fl (35.1-43.9); Red Blood Count 4.67 M/mm3 (4.6-6.2); White Blood Count 11.9 K/mm3 (4.4-11.0)
[2019-06-18 11:11] LABS: D-Dimer Quantitative (DVT/PE) 2.12 FEU/ug/m (0.27-0.49)
[2019-06-18 11:15] LABS: Anion Gap 11 (5-15); BUN 81 mg/dL (7-18); BUN/Creat Ratio 27.6 RATIO (10-20); Calcium,Total 9.5 mg/dL (8.5-10.1); Chloride 108 mmol/L (98-107); Creatinine, Serum 2.94 mg/dL (0.70-1.30); EST Glomerular Filtration Rate 23 mL/min (>60); Est Glom Filt Rate - Afr Amer 27 mL/min (>60); Glucose 202 mg/dL (74-106); Potassium 3.7 mmol/L (3.5-5.1); Sodium Level 140 mmol/L (136-145)
--- NOTE | 2019-06-18 11:21 | EKG12_ITS ---
Test Reason : Blood Pressure : / mmHG Vent. Rate : 075 BPM Atrial Rate : 075 BPM P-R Int : 172 ms QRS Dur : 142 ms QT Int : 438 ms P-R-T Axes : 070 -08 147 degrees QTc Int : 489 ms Normal sinus rhythm Non-specific intra-ventricular conduction block T wave abnormality, consider inferolateral ischemia vs. IVCD effect Abnormal ECG Confirmed by SCOTT PERERA, ANDRIA ([id number]), editor newspaper ARIADNE RAO ([id number]) on 06/19/2019 1:42:41 PM Referred By: YUNIER Confirmed By:ANDRIA CHAVEZ MD
[2019-06-18] MEDS: HEPARIN/D5w 25,000 UNITS 25,000 UNITS/250 ML IV.SOLN. 15 UNITS IV (11:34)
[2019-06-18] MEDS: Heparin Injection (Vial) 5,000 UNIT/ML VIAL 8000 UNIT IV (11:35)
--- NOTE | 2019-06-18 11:54 | NURSING ---
DR ROLDAN FOR DR MEDELLIN
--- NOTE | 2019-06-18 11:56 | HP.PCM_ITS ---
Problem List (1) Hypoxia Status: Acute (2) Mild congestive heart failure Status: Acute (3) Chest pain Status: Acute (4) Obesity (BMI 30-39.9) Status: Chronic (5) Anxiety and depression Status: Chronic (6) Sleep apnea Status: Chronic Qualifiers: Sleep apnea type: unspecified type Qualified Code(s): G47.30 - Sleep apnea, unspecified (7) Persistent atrial fibrillation Status: Chronic (8) Left carotid stenosis Status: Chronic (9) Chronic kidney disease Status: Chronic (10) Chest heaviness Status: Acute (11) Shortness of breath Status: Acute (12) Chronic diastolic (congestive) heart failure Status: Chronic (13) Secondary pulmonary arterial hypertension Status: Chronic (14) Atherosclerosis of coronary artery bypass graft without angina pectoris Status: Chronic Qualifiers: Comment: PCI-AGAPITO-SVG to LCx w/ 3.5 x 12 mm Synergy 09/28/18 CABG x 3 BETHEA-LAD, SVG-LCX, SVG-D1 03/20/1997 (15) History of coronary artery bypass surgery Status: Chronic Comment: CABG X 3 BETHEA to LAD, SVG-LCx, SVG-D1 03/20/1997 (16) History of coronary artery stent placement Status: Chronic Comment: PCI-AGAPITO-SVG to LCx w/ 3.5 x 12 mm Synergy 09/28/18 (17) Paroxysmal atrial fibrillation Status: Chronic Comment: RFA (18) Paroxysmal atrial flutter Status: Chronic Comment: RFA (19) Essential (primary) hypertension Status: Chronic (20) HLD (hyperlipidemia) Status: Chronic Qualifiers: (21) Peripheral vascular occlusive disease Status: Chronic (22) Bilateral renal artery stenosis Status: Chronic (23) Stage III chronic kidney disease Status: Chronic History of Present Illness Date of Admission: 06/18/19 Chief Complaint: Shortness of breath and chest discomfort The patient is a 68 year old M with a past cardiac history including coronary ar tianna disease status post CABG with subsequent PCI with stent placement (last intervention in September 2018) who presented with shortness of breath and chest discomfort. Per patient symptoms started on the morning of his admission. He woke up with significant difficulty breathing. He also had chest pain which radiated to his neck. Patient also admitted to a recent 6 pound weight gain as well as swelling in his lower extremities. He presented to the emergency department he was found to have slightly elevated troponin as well as elevated d-dimer. CAT scan could not be obtained in view of patient impaired kidney function subsequently started on heparin and admitted to regular nursing floor. Checks x-ray obtained prior to patient going to the floor also demonstrated evidence of mild vascular congestion. Past Medical History Past Medical History (Chronic Problems): Chronic Problems (Last Reviewed 06/18/19 @ 13:[address] Ravinder Carter MD) Obesity (BMI 30-39.9) (Chronic) Anxiety and depression (Chronic) Sleep apnea (Chronic) Persistent atrial fibrillation (Chronic) Left carotid stenosis (Chronic) Chronic kidney disease (Chronic) Chronic diastolic (congestive) heart failure (Chronic) Secondary pulmonary arterial hypertension (Chronic) Atherosclerosis of coronary artery bypass graft without angina pectoris (Chronic) PCI-AGAPITO-SVG to LCx w/ 3.5 x 12 mm Synergy 09/28/18 CABG x 3 BETHEA-LAD, SVG-LCX, SVG-D1 03/20/1997 History of coronary artery bypass surgery (Chronic 03/20/97) CABG X 3 BETHEA to LAD, SVG-LCx, SVG-D1 03/20/1997 History of coronary artery stent placement (Chronic 09/28/18) PCI-AGAPITO-SVG to LCx w/ 3.5 x 12 mm Synergy 09/28/18 Paroxysmal atrial fibrillation (Chronic) RFA Paroxysmal atrial flutter (Chronic) RFA Essential (primary) hypertension (Chronic) HLD (hyperlipidemia) (Chronic) Peripheral vascular occlusive disease (Chronic) Bilateral renal artery stenosis (Chronic) Stage III chronic kidney disease (Chronic) Medical History: Medical History (Last Reviewed 06/18/19 @ 13:[address] 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 (Chronic) I25.810 PCI-AGAPITO-SVG to LCx w/ 3.5 x 12 mm Synergy 09/28/18 CABG x 3 BETHEA-LAD, SVG-LCX, SVG-D1 03/20/1997 Paroxysmal atrial fibrillation (Chronic) I48.0 RFA Paroxysmal atrial flutter (Chronic) I48.92 RFA Essential (primary) hypertension (Chronic) I10 HLD (hyperlipidemia) (Chronic) E78.5 Peripheral vascular occlusive disease (Chronic) I73.9 Bilateral renal artery stenosis (Chronic) I70.1 Stage III chronic kidney disease (Chronic) N18.3 Allergies gabapentin Adverse Reaction (Verified 06/18/19 10:42) Other made me nuts warfarin [From Coumadin] Adverse Reaction (Verified 06/18/19 10:42) very sensitive, high INR and GI bleed Home Medications: Ambulatory Orders Medication Instructions Recorded Aspirin E.C. [Ecotrin] 81 mg PO QHS 01/22/15 nitroglycerin 0.4 mg sublingual 0.4 mg SUBLINGUAL Q5-15M PRN #25 09/18/18 tablet tab Clopidogrel Bisulfate [Plavix] 75 mg PO DAILY tab 09/29/18 Citalopram [Celexa] 20 mg PO DAILY 12/18/18 buspirone 15 mg tablet 1 tablet PO BID #60 tab 01/05/19 fenofibrate 54 mg tablet 54 mg PO QHS #30 tab 01/05/19 lisinopril 40 mg tablet 40 mg PO DAILY #30 tab 01/26/19 diltiazem HCl 120 mg 120 mg PO DAILY #30 cap 03/05/19 capsule,extended release 12 hr furosemide 40 mg tablet 40 mg PO DAILY #90 tab 04/12/19 amiodarone 200 mg tablet 200 mg PO DAILY #90 tab 06/08/19 atorvastatin 40 mg tablet 40 mg PO DAILY #90 tab 06/18/19 Surgical History: Surgical History (Last Reviewed 06/18/19 @ 13:[address] Ravinder Carter MD) Rotator cuff tear arthropathy of right shoulder (Resolved) M12.811 History of transurethral resection of prostate (Resolved) Onset Date: 2004 Z98.890, Z90.79 H/O shoulder replacement (Resolved) Onset Date: 2014 Z96.619 History of nasal surgery (Resolved) Onset Date: ~2002 Z98.890 History of mandibular surgery (Resolved) Onset Date: ~1992 Z98.890 Jaw realignment History of radiofrequency ablation procedure for cardiac arrhythmia (Resolved) Onset Date: 2011 [id number] History of angioplasty of peripheral vessel (Resolved) Onset Date: 03/1996 Z98.62 Bilateral iliac stents History of coronary artery bypass surgery (Chronic) Onset Date: 03/20/97 Z95.1 CABG X 3 BETHEA to LAD, SVG-LCx, SVG-D1 03/20/1997 History of coronary artery stent placement (Chronic) Onset Date: 09/28/18 Z95.5 PCI-AGAPITO-SVG to LCx w/ 3.5 x 12 mm Synergy 09/28/18 Surgical History: coronary bypass surgery, - Psychiatric History: Anxiety, Depression Lives: Spouse/ Significant Other Smoking Status: Former smoker - *Family History Paternal Family History: Family History (Last Reviewed 06/18/19 @ 13:[address] Ravinder Carter MD) Father Myocardial infarction Heart disease Mother CAD (coronary artery disease) Brother CAD (coronary artery disease) Diabetes Hx of CABG Sister Hypertension Pulmonary embolism History Items: Heart Disease, Hypertension Maternal Family History: Family History (Last Reviewed 06/18/19 @ 13:[address] Ravinder Carter MD) Father Myocardial infarction Heart disease Mother CAD (coronary artery disease) Brother CAD (coronary artery disease) Diabetes Hx of CABG Sister Hypertension Pulmonary embolism History Items: Stroke Review of Systems Constitutional: Reports: Weight Change. Denies: Anorexia, Chills, Fever, Night Sweats HEENT: Denies: Head Aches, Sinus Congestion, Sinus Drainage Cardiovascular: Reports: Chest Pain, Chest Tightness, Edema, Orthopnea Respiratory: Reports: Shortness of breath at rest. Denies: Cough Gastrointestinal: Denies: Abdominal Pain, Hematemesis, Hematochezia, Nausea, Melena, Vomiting Genitourinary: Denies: Dysuria, Frequency, Hematuria, Urgency Musculoskeletal: Denies: Joint Pain, Joint Tenderness Skin: Denies: Rash Neurological: Denies: Focal weakness, Numbness, Tingling Psychiatric: Denies: Homicidal Ideations, Suicidal Ideations Hematologic/ Lymphatic: Denies: Easy Bruising, Easy Bleeding VTE Information - Inpt Only VTE Present on Admission: No VTE Mechan Device Prophylaxis: None VTE Pharm Prophylaxis ordered?: Yes Patient Problems: Active and Suspected Problems (Last Reviewed 06/18/19 @ 13:[address] Ravinder Carter MD) Hypoxia (Acute) Mild congestive heart failure (Acute) Chest pain (Acute) Objective: GENERAL: cooperative HEENT: Atraumatic; EYES; Anicteric, Normal Conjunctiva NECK; supple, normal thyroid, . RESPIRATORY: Diminished to auscultation bilaterally, CARDIOVASCULAR: Irregular S1-S2 GI: soft, non-tender, normoactive bowel sounds, : No Renal angle tenderness; EXTREMITIES: No edema, no clubbing, no cyanosis. MUSCULOSKELETAL: no muscle waisting NEURO: Awake; no lateralizing signs. SKIN: No Rash PSYCH; Normal affect - Physical Exam Vitals/I&O's: Vital Signs Temp Pulse Resp BP Pulse Ox 98.0 F 73 24 H 141/74 H 94 06/18/19 10:45 06/18/19 10:45 06/18/19 10:45 06/18/19 10:45 06/18/19 10:45 Oxygen Flow Rate (L/min) 6 Oxygen Delivery Method Non-Rebreather Weight: 110.4 kg Body Mass Index (BMI) 39.2 Finger Stick Blood Glucose 98 Laboratory Results 06/18/19 10:45: WBC 11.9 H, RBC 4.67, Hgb 14.8, Hct 45.7, MCV 97.9 H, MCH 31.7, MCHC 32.4, RDW Std Deviation 55.4 H, RDW Coeff of Aranza 16.0 H, Plt Count 249, MPV 9.6, Immature Gran % (Auto) 1.100 H, Neut % (Auto) 56.7, Lymph % (Auto) 31.8, [place] % (Auto) 7.0, Eos % (Auto) 2.6, Baso % (Auto) 0.8, Absolute Neuts (auto) 6.8, Absolute Lymphs (auto) 3.79, Nucleated RBC % 0 06/18/19 10:45: D-Dimer Quant (PE/DVT) 2.12 H* 06/18/19 10:45: Sodium 140, Potassium 3.7, Chloride 108 H, Carbon Dioxide 21.0, Anion Gap 11, BUN 81 H, Creatinine 2.94 H, Estim Creat Clear Calc 21.10, Est GFR (MDRD) Af Amer 27 L, Est GFR (MDRD) Non-Af 23 L, BUN/Creatinine Ratio 27.6 H, Glucose 202 H, Calcium 9.5, Troponin I 0.164 H 06/18/19 10:45: B-Natriuretic Peptide 239.0 H 06/18/19 10:45: APTT 27.0 Current Medications Heparin Sodium (Porcine) (Heparin Na) 0 unit IV UD PRN; Protocol Sodium Chloride () 1,000 mls @ 15 mls/hr IV .Q48H [facility] Last Admin: 06/18/19 11:00 Dose: 15 mls/hr Documented by: Heparin Sodium/Dextrose () 25,000 units in 250 mls @ 15 mls/hr IV .[id number] [facility]; Protocol Last Admin: 06/18/19 11:34 Dose: 1,500 units/hr, 15 mls/hr Documented by: Assessment/Plan All Active Problems (Last Reviewed 06/18/19 @ 13:[address] Ravinder Carter MD) Hypoxia (Acute) Mild congestive heart failure (Acute) Chest pain (Acute) Rotator cuff tear arthropathy of right shoulder (Resolved) Acute alcohol intoxication (Resolved) History of transurethral resection of prostate (Resolved 2004) H/O shoulder replacement (Resolved 2014) History of nasal surgery (Resolved ~2002) History of mandibular surgery (Resolved ~1992) History of radiofrequency ablation procedure for cardiac arrhythmia (Resolved 2011) History of angioplasty of peripheral vessel (Resolved 03/1996) Chest heaviness (Acute) Shortness of breath (Acute) Patient is a 68-year-old gentleman presenting with shortness of breath has discomfort 1. Acute dyspnea ?Suspected to be secondary to acute congestive heart failure with preserved ejection fraction. 2D echo obtained on 12/19/2018 demonstrated EF of 65%. Admitted to monitored bed as part of his work-up patient was placed on fluid restriction, strict input and output diuretics repeat echo ordered. 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 Elevated d-dimer ?Patient was started on systemic anticoagulation with heparin was ruling out VTE. Ordered VQ scan as well as bilateral venous duplex. 3. Acute kidney injury ?Superimposed on baseline chronic kidney disease. Patient creatinine on 12/28/2018 was 1.15. On 06/01/2019 was 1.85. Patient presented with creatinine of 2.85. Do anticipate improvement following diuresis. We will however consult nephrology if patient kidney function continues to worsen 3. Coronary artery disease patient - previous CABG (CABG x 3 BETHEA-LAD, SVG-LCX, SVG-D1 03/20/1997) subsequent PCI with intervention (PCI-AGAPITO-SVG to LCx w/ 3.5 x 12 mm Synergy 09/28/18) patient is on recommended medications did continue 4. Peripheral arterial disease -with bilateral lower extremity common iliac stenting 5. Dyslipidemia ~patient is on statin therapy, continued at home dose 6. Paroxysmal A. fib r -rate controlled on amiodarone 7. Obstructive sleep apnea - patient is on CPAP at night 8. Hypertension ~ blood pressure controlled, home medications continued with dose adjustment as needed 9. Obesity with BMI of 40 ?Weight loss advised 10. History of rotator cuff tear arthropathy of right shoulder - status post right shoulder replacement 11. BPH - with previous TURP 12. DVT prophylaxis ?Patient on systemic anticoagulation with heparin Advance planning; did discuss with the patient and family regarding advanced directives as well as CODE STATUS. Did explain the various scenarios involved ( FULL CODE, DNR CCA, DNR CCA with no intubation, and DNR CC and what each meant) patient elected to remain full code with intubation and CPR if needed. Order was placed. Time spent on discussion 18 minutes. Inpatient E&M: 26113 Init Hosp L3 Procedures: 53179 Advncd Care Plan 30 Min
--- NOTE | 2019-06-18 12:55 | ECHOCS_ITS ---
Version 2 Reason For Study: CHF Procedure This was a 2D Doppler, Color Flow transthoracic echocardiogram. The study was technically difficult. Contrast injection was performed. Exam performed portable in patient room. Left Ventricle Normal LV size. Left ventricular systolic function is normal. The estimated ejection fraction is 65 %. Stage 3 diastolic dysfunction. No regional wall motion abnormalities noted. Right Ventricle Normal RV size. Normal systolic function. Atria The left atrium is mildly enlarged. Normal right atrium. Mitral Valve There is mild mitral annular calcification. Mild-Moderate (1-2+) eccentric mitral valve insufficiency. Tricuspid Valve Normal tricuspid valve. Moderate (2+) tricuspid valve insufficiency. Pulmonary artery systolic pressure is 55 mmHg. Moderate pulmonary hypertension. Aortic Valve Trisinus/trileaflet aortic valve. Pulmonic Valve Normal pulmonic valve. Great Vessels Normal aortic root. The pulmonary artery is normal size. Normal inferior vena cava. Pericardium/Pleural No pericardial effusion. Medication Diluted definity 3.0ml given slow IV push to enhance endocardial definition. MMode/2D Measurements & Calculations LVIDd: 5.2 cm IVSd: 0.84 cm Ao root diam: 3.5 cm LVIDs: 3.9 cm LVPWd: 0.87 cm RVDd: 3.8 cm FS: 25.1 % LAV(MOD-bp): 66.8 ml LVAd ap4: 37.3 cm2 SV(MOD-sp4): 72.0 ml LAV(MOD-bp) Indexed: 30.8 ml/m2 EDV(MOD-sp4): 129.1 ml LAV(MOD-sp2): 58.7 ml EDV(sp4-el): 132.2 ml LAV(MOD-sp4): 70.6 ml LVAs ap4: 22.6 cm2 ESV(MOD-sp4): 57.2 ml ESV(sp4-el): 55.0 ml EF(MOD-sp4): 55.7 % EF(sp4-el): 58.4 % SV(sp4-el): 77.2 ml LA A4 area: 23.1 cm2 LA dimension(2D): 5.2 cm RA A4 area: 16.8 cm2 Time Measurements MV dec time: 0.19 sec Doppler Measurements & Calculations MV E max roge: 109.5 cm/sec Lat Peak E' Roge: 9.6 cm/sec Med Peak E' Roge: 5.4 cm/sec MV A max roge: 33.7 cm/sec E/E' lat: 11.4 E/E' med: 20.2 MV E/A: 3.3 Ao V2 max: 113.4 cm/sec LV V1 max: 93.9 cm/sec PA V2 max: 87.2 cm/sec Ao max P.1 mmHg LV V1 max P.5 mmHg TR max roge: 355.1 cm/sec TR max P.5 mmHg Interpretation Summary Normal LV size. Left ventricular systolic function is normal. The estimated ejection fraction is 65 %. Pulmonary artery systolic pressure is 55 mmHg. Moderate pulmonary hypertension. Stage 3 diastolic dysfunction. Contrast injection was performed. Compared to prior study, there is no significant change. Ordering Physician: Ravinder Carter Referring Physician: BRAULIO BRYAN Performed By: Christina Villasenor, RDCS, RVT
--- NOTE | 2019-06-18 12:55 | NM_ITS ---
CLINICAL: Male, 68 years old. SHORT OF BREATH -- LOW PULSE OX -- CHEST PAIN NUCLEAR VENTILATION/PERFUSION - LUNG TECHNIQUE: The patient was administered 5.0 mCi of Tc MAA followed by a perfusion lung scan. The patient was administered 51 mCi of Tc DTPA aerosol followed by a ventilation lung scan. Comparison made to prior chest radiograph dated . FINDINGS: The pulmonary perfusion study demonstrates uniform perfusion throughout both lung toussaint. There are no demonstrated segmental or subsegmental perfusion defects The ventilation study demonstrates uniform ventilation throughout both lung toussaint. There are no segmental or subsegmental ventilation abnormalities. NM/Lung Scan Vent/Perf IMPRESSION: Normal 99m Tc MAA pulmonary perfusion Tc DTPA aerosol ventilation imaging survey, according to revised PIOPED interpretive criteria. Electronically Signed: Osvaldo Manuel, at 14:32 EDT , Service support ,
--- NOTE | 2019-06-18 12:55 | VDLE_ITS ---
Reason For Study: Elevated D-dimer RIGHT LEFT GSV is normal. GSV is normal. CFV is compressible, spontaneous, competent CFV is compressible, spontaneous, competent, and demonstrates pulsatile venous flow. and demonstrates pulsatile venous flow. FV is compressible, spontaneous, competent FV is compressible, spontaneous, competent and demonstrates pulsatile venous flow. and demonstrates pulsatile venous flow. POP V is compressible, spontaneous, competent POP V is compressible, spontaneous, competent and demonstrates pulsatile venous flow. and demonstrates pulsatile venous flow. T/P Trunk is compressible. T/P Trunk is compressible. PTV is compressible. PTV is compressible. RT PerV is compressible. LT PerV is compressible. Procedure Exam performed portable in ED. A preliminary report was called and/or faxed to [facility]. Interpretation Summary Deep veins of the lower extremities are bilaterally patent and compressible segmentally. There is no evidence of deep vein thrombosis on either side. Valvular competence appears intact within the proximal deep venous systems bilaterally. The great saphenous veins appear bilaterally patent and compressible segmentally. Pulsatile flow is noted in the deep venous system bilaterally, which may be indicative of elevated central venous pressure (i.e. congestive heart failure, tricuspid valve insufficiency, etc.). Clinical correlation is advised. Ordering Physician: Ravinder Carter Referring Physician: Jazz Rodas M.D. Performed By: Windy Urbano RVT
--- NOTE | 2019-06-18 15:03 | EKG12_ITS ---
Test Reason : ADMISSION Blood Pressure : / mmHG Vent. Rate : 055 BPM Atrial Rate : 055 BPM P-R Int : 200 ms QRS Dur : 110 ms QT Int : 430 ms P-R-T Axes : 070 -20 163 degrees QTc Int : [address] & T wave abnormality, consider inferolateral ischemia Abnormal ECG Confirmed by SCOTT PERERA, ANDRIA ([id number]), editor news NIC PIZARRO ([id number]) on 06/20/2019 9:56:38 AM Referred By: YULI Confirmed By:ANDRIA CHAVEZ MD
[2019-06-18 15:16] LABS: Hemoglobin A1c 6.2 % (4.2-6.3)
[2019-06-18] MEDS: 0.9% Saline Lock 10 ML Syringe IV ×2 (15:43→21:42)
[2019-06-18] MEDS: Furosemide 40 MG/4 ML Vial IV ×2 (15:43→21:42)
--- NOTE | 2019-06-18 17:38 | CON.PCM_ITS ---
Reason for Consult Date of Consultation: 06/18/19 Reason for Consultation: Shortness of breath and chest pain History of Present Illness: LETHA DEVI, is a 68-year-old man with a history of coronary artery disease status post coronary artery bypass surgery with a left internal mammary artery to the left anterior descending artery, saphenous vein graft to circumflex artery and diagonal branches. He had complained of shortness of breath and underwent a cardiac catheterization in 2019. It demonstrated a patent left internal mammary artery to the left anterior descending artery, and an occluded saphenous vein graft to the diagonal branch. The saphenous vein graft to circumflex artery had a high-grade stenosis for which she underwent angioplasty and stenting. He had placement of a 3.5 x 12 drug-eluting stent. He had apparently done well until he presented to the emergency room yesterday with shortness of breath as well as chest discomfort. He was seen in the emergency room evaluated he was noted to have an abnormal d-dimer, and an abnormal troponin as well as EKG changes. In addition more importantly his renal function appears to have worsened quite significantly. He does have peripheral vascular disease and has also had bilateral iliac stenting. In addition he has a history of hypertension, atrial fibrillation flutter status post radiofrequency ablation, and hyperlipidemia. He continued to complain of shortness of breath even after his current angioplasty procedure. At this particular time he is free of chest discomfort. His EKG demonstrated significant lateral ST depression. An echocardiogram performed at the bedside demonstrated normal ejection fraction. He also had moderate pulmonary hypertension Past Medical History Allergies/Adverse Reactions: Allergies gabapentin Adverse Reaction (Verified 06/18/19 10:42) Other made me nuts warfarin [From Coumadin] Adverse Reaction (Verified 06/18/19 10:42) very sensitive, high INR and GI bleed Home Medications: Ambulatory Orders Medication Instructions Recorded Aspirin E.C. [Ecotrin] 81 mg PO QHS 01/22/15 nitroglycerin 0.4 mg sublingual 0.4 mg SUBLINGUAL Q5-15M PRN #25 09/18/18 tablet tab Clopidogrel Bisulfate [Plavix] 75 mg PO DAILY tab 09/29/18 Citalopram [Celexa] 20 mg PO DAILY 12/18/18 buspirone 15 mg tablet 1 tablet PO BID #60 tab 01/05/19 fenofibrate 54 mg tablet 54 mg PO QHS #30 tab 01/05/19 lisinopril 40 mg tablet 40 mg PO DAILY #30 tab 01/26/19 diltiazem HCl 120 mg 120 mg PO DAILY #30 cap 03/05/19 capsule,extended release 12 hr furosemide 40 mg tablet 40 mg PO DAILY #90 tab 04/12/19 amiodarone 200 mg tablet 200 mg PO DAILY #90 tab 06/08/19 atorvastatin 40 mg tablet 40 mg PO DAILY #90 tab 06/18/19 Past Medical History (Chronic Problems): Chronic Problems (Last Reviewed 06/18/19 @ 13:[address] Ravinder Carter MD) Obesity (BMI 30-39.9) (Chronic) Anxiety and depression (Chronic) Sleep apnea (Chronic) Persistent atrial fibrillation (Chronic) Left carotid stenosis (Chronic) Chronic kidney disease (Chronic) Chronic diastolic (congestive) heart failure (Chronic) Secondary pulmonary arterial hypertension (Chronic) Atherosclerosis of coronary artery bypass graft without angina pectoris (Chronic) PCI-AGAPITO-SVG to LCx w/ 3.5 x 12 mm Synergy 09/28/18 CABG x 3 BETHEA-LAD, SVG-LCX, SVG-D1 03/20/1997 History of coronary artery bypass surgery (Chronic 03/20/97) CABG X 3 BETHEA to LAD, SVG-LCx, SVG-D1 03/20/1997 History of coronary artery stent placement (Chronic 09/28/18) PCI-AGAPITO-SVG to LCx w/ 3.5 x 12 mm Synergy 09/28/18 Paroxysmal atrial fibrillation (Chronic) RFA Paroxysmal atrial flutter (Chronic) RFA Essential (primary) hypertension (Chronic) HLD (hyperlipidemia) (Chronic) Peripheral vascular occlusive disease (Chronic) Bilateral renal artery stenosis (Chronic) Stage III chronic kidney disease (Chronic) Surgical History: coronary bypass surgery, - Psychiatric History: Anxiety, Depression - *Family History Paternal Family History: Family History (Last Reviewed 06/18/19 @ 13:[address] Ravinder Carter MD) Father Myocardial infarction Heart disease Mother CAD (coronary artery disease) Brother CAD (coronary artery disease) Diabetes Hx of CABG Sister Hypertension Pulmonary embolism History Items: Heart Disease, Hypertension Maternal Family History: Family History (Last Reviewed 06/18/19 @ 13:[address] Ravinder Carter MD) Father Myocardial infarction Heart disease Mother CAD (coronary artery disease) Brother CAD (coronary artery disease) Diabetes Hx of CABG Sister Hypertension Pulmonary embolism History Items: Stroke Lives: Spouse/ Significant Other Smoking Status: Former smoker Alcohol: None Drugs: None Review of Systems - Review of Systems General: Denies: Fever, Night Sweats, Fatigue HEENT: Denies: Vision Change Cardiovascular: Reports: Chest Discomfort, Shortness of Breath, Peripheral Edema. Denies: Orthopnea, PND, Palpitations, Lightheadedness, Dizziness, Near Syncope, Syncope Respiratory: Denies: Cough, Sputum Production, Hemoptysis Gastrointestinal: Denies: Hematemesis, Hematochezia, Melena Genitourinary: Denies: Dysuria, Hematuria Muscoloskeletal: Denies: Myalgias Skin: Denies: Rash Neurological: Denies: Dizziness Psychiatric: Denies: Anxiety Hematologic/ Lymphatic: Denies: Lymph Node Enlargement Subjectve: Middle-aged man in some respiratory distress Objective: Vital Signs Temp Pulse Resp BP Pulse Ox 97.5 F L 54 L 18 145/51 H 94 06/18/19 13:15 06/18/19 15:00 06/18/19 13:15 06/18/19 13:15 06/18/19 13:15 Oxygen Flow Rate (L/min) 5 Oxygen Delivery Method Nasal Cannula Weight: 246 lb 14.684 oz Body Mass Index (BMI) 39.8 Finger Stick Blood Glucose 98 General: Awake, Alert, Oriented x 3 HEENT: PERRL, EOMI, Sclera Non Icteric Neck: Supple, Good ROM, No Lymph Node Enlargement Lungs: Clear to auscultation Cardiovascular: Regular Rhythm, Normal S1, Normal S2, No Murmurs, No Rubs, No Gallops Vascular: No Carotid Bruits, Normal Femoral Pulses, Normal Radial Pulses, Normal Dorsalis Pedal Pulse, Normal Posterior Tibial Pulses Abdomen: Bowel Sounds Present, Soft, Non Tender, No HSM, No Organomegaly Extremities: No Cyanosis, No Clubbing, No edema Musculoskeletal: No Erythema Skin: No Rashes Lymphatic: No Lymph Node Enlargement Neurological: No Focal Motor or Sensory Deficit Psych/Mental Status: Appropriate 06/18/19 10:45: WBC 11.9 H, RBC 4.67, Hgb 14.8, Hct 45.7, MCV 97.9 H, MCH 31.7, MCHC 32.4, Plt Count 249, MPV 9.6, Immature Gran % (Auto) 1.100 H, Neut % (Auto) 56.7, Lymph % (Auto) 31.8, [place] % (Auto) 7.0, Eos % (Auto) 2.6, Baso % (Auto) 0.8, Absolute Neuts (auto) 6.8, Nucleated RBC % 0 06/18/19 10:45: D-Dimer Quant (PE/DVT) 2.12 H* 06/18/19 10:45: Sodium 140, Potassium 3.7, Chloride 108 H, Carbon Dioxide 21.0, Anion Gap 11, BUN 81 H, Creatinine 2.94 H, Est GFR (MDRD) Af Amer 27 L, Est GFR (MDRD) Non-Af 23 L, BUN/Creatinine Ratio 27.6 H, Glucose 202 H, Calcium 9.5, Troponin I 0.164 H 06/18/19 10:45: B-Natriuretic Peptide 239.0 H 06/18/19 10:45: APTT 27.0 06/18/19 14:39: Hemoglobin A1c 6.2 06/18/19 14:39: Troponin I 5.950 H* Rhythm: EKG: ECHO: Stress Test: Cardiac Cath: PCI: CT Surgery: Holter monitor: EPS: PPM: CXR: Chest CT Scan: Assessment/Plan 1. Non-ST elevation myocardial infarction with atherosclerosis of coronary artery bypass graft of [place] heart without angina pectoris I25.810 PCI-AGAPITO-SVG to LCx w/ 3.5 x 12 mm Synergy 09/28/18 CABG x 3 BETHEA-LAD, SVG-LCX, SVG-D1 03/20/1997 He does have a history of atherosclerotic cardiovascular disease. As noted above he is bypass surgery with a BETHEA to the LAD saphenous vein graft to cir cumflex artery and saphenous vein graft to the diagonal branch. * He is status post angioplasty and stenting of the saphenous vein graft to the circumflex artery. Ideally he needs a repeat cardiac catheterization. Will hold off until his renal function appears to be improving 2. Paroxysmal atrial fibrillation I48.0 RFA He does have a history of paroxysmal atrial fibrillation. He has had recent episodes of the above despite his pneumonia. This occurred when he was hospitalized. He has not had any since. His last echocardiogram demonstrated ejection fraction of 65% with no wall motion abnormalities present. He does have evidence of pulmonary artery hypertension. 3. Essential (primary) hypertension I10 Plan He does have a history of hypertension. His blood pressure appears to be better controlled at this time with the increase in the lisinopril. We will continue to follow the above. 4. Pure hypercholesterolemia E78.5 Plan He does have a history of hyperlipidemia and will continue with aggressive risk factor modification. 5. Chronic diastolic (congestive) heart failure I50.32 Plan He does have evidence of chronic diastolic heart failure he is tolerating the Lasix does quite well. No other changes will be made. Unfortunately his renal function appears to be significantly worse with an elevated BUN as well. We will continue to monitor the above. We may need nephrology input here. 6. History of coronary artery stent placement Z95.5 PCI-AGAPITO-SVG to LCx w/ 3.5 x 12 mm Synergy 09/28/18 He does have evidence of angioplasty and stenting of the saphenous vein graft to circumflex artery. He does have EKG changes which suggestive of ischemia to this distribution. He ideally would need to have a repeat cardiac catheterization. We may need to cautiously hydrate him before we perform the above. Thank you for allowing me to participate in the care of your patient. Please don't hesitate to call if any issues arise
[2019-06-18 17:55] LABS: Partial Thromboplast Time 125.1 Seconds (24.1-36.2)
[2019-06-18 18:16] LABS: Bedside Glucose 85 mg/dL (70-110)
[2019-06-18] MEDS: Aspirin E.C. 81 MG Tablet PO (21:43)
[2019-06-18] MEDS: busPIRone 15 MG TABLET PO (21:43)
[2019-06-18 22:06] LABS: Bedside Glucose 142 mg/dL (70-110)
[2019-06-19] VITALS (10 sets, daily range): BP systolic 129–152; BP diastolic 47–63; PULSE 47–76; RESP 18; TEMP 36.3–36.9; O2SAT 93–99
[2019-06-19] MEDS: Furosemide 40 MG/4 ML Vial IV ×3 (06:41→21:21)
[2019-06-19] MEDS: 0.9% Saline Lock 10 ML Syringe IV ×3 (06:41→21:21)
[2019-06-19 06:46] LABS: Absolute Lymphocyte Count 1.12 X10^3/uL (0.83-4.51); Absolute Neutrophil Count 4.9 X10^3/uL (2.0-7.7); Basophil# 0.04 X10^3/uL; Basophil% 0.6 % (0-1); Eosinophil# 0.23 X10^3/uL; Eosinophils% 3.3 % (0-5); Hematocrit 39.2 % (40-54); Hemoglobin 13.1 g/dL (13.0-16.5); Lymphocyte # 1.12 X10^3/ul (4.0); Lymphocyte % 15.9 % (19-41); Mean Corp Hgb Conc 33.4 g/dL (32-36); Mean Corpuscular Hgb 32.3 pg (27.0-32.0); Mean Corpuscular Volume 96.8 fL (80-94); Mean Platelet Vol. 9.2 fl (6.2-12.0); Monocyte# 0.71 X10^3/uL; Monocyte% 10.1 % (0-10); NRBC Flagged by Analyzer 0 % (0-5); Neutrophil % 69.3 % (47-70); Platelet Count 169 K/mm3 (150-450); RBC Distribution Width CV 15.7 % (11.6-14.6); RBC Distribution Width SD 53.6 fl (35.1-43.9); Red Blood Count 4.05 M/mm3 (4.6-6.2); White Blood Count 7.1 K/mm3 (4.4-11.0)
[2019-06-19 06:53] LABS: Partial Thromboplast Time 64.4 Seconds (24.1-36.2)
[2019-06-19 06:55] LABS: Bedside Glucose 110 mg/dL (70-110)
[2019-06-19 07:03] LABS: Anion Gap 8 (5-15); BUN 83 mg/dL (7-18); BUN/Creat Ratio 31.1 RATIO (10-20); Calcium,Total 9.3 mg/dL (8.5-10.1); Chloride 105 mmol/L (98-107); Creatinine, Serum 2.67 mg/dL (0.70-1.30); EST Glomerular Filtration Rate 25 mL/min (>60); Est Glom Filt Rate - Afr Amer 31 mL/min (>60); Estimated Creatinine Clearance 23.23 ml/min; Glucose 118 mg/dL (74-106); Potassium 4.6 mmol/L (3.5-5.1); Sodium Level 142 mmol/L (136-145)
--- NOTE | 2019-06-19 07:35 | PN.CARD_ITS ---
Subjectve: Patient seen and evaluated. Says that he is feeling much better today. Objective: Vital Signs Temp Pulse Resp BP Pulse Ox 98.0 F 54 L 18 138/47 H 99 06/19/19 03:40 06/19/19 07:00 06/19/19 03:40 06/19/19 03:40 06/19/19 03:40 Oxygen Flow Rate (L/min) 4 Oxygen Delivery Method CPAP Weight: 246 lb 14.684 oz Body Mass Index (BMI) 39.8 Finger Stick Blood Glucose 98 Intake and Output for Last 24 Hours 06/17/19 06/18/19 06/19/19 23:59 23:59 23:59 Intake Total 560.50 / 560.50 131.4 / 131.4 Output Total 4100 / 4100 Balance -3539.50 / -3539.50 131.4 / 131.4 General: Awake, Alert, Oriented x 3 HEENT: PERRL, EOMI, Sclera Non Icteric Neck: Supple, Good ROM, No Lymph Node Enlargement Lungs: Clear to auscultation Cardiovascular: Regular Rhythm, Normal S1, Normal S2, No Murmurs, No Rubs, No Gallops Vascular: No Carotid Bruits, Normal Femoral Pulses, Normal Radial Pulses, Normal Dorsalis Pedal Pulse, Normal Posterior Tibial Pulses Abdomen: Bowel Sounds Present, Soft, Non Tender, No HSM, No Organomegaly Extremities: No Cyanosis, No Clubbing, No edema Musculoskeletal: No Erythema Skin: No Rashes Lymphatic: No Lymph Node Enlargement Neurological: No Focal Motor or Sensory Deficit Psych/Mental Status: Appropriate 06/18/19 10:45: WBC 11.9 H, RBC 4.67, Hgb 14.8, Hct 45.7, MCV 97.9 H, MCH 31.7, MCHC 32.4, Plt Count 249, MPV 9.6, Immature Gran % (Auto) 1.100 H, Neut % (Auto) 56.7, Lymph % (Auto) 31.8, [place] % (Auto) 7.0, Eos % (Auto) 2.6, Baso % (Auto) 0.8, Absolute Neuts (auto) 6.8, Nucleated RBC % 0 06/18/19 10:45: D-Dimer Quant (PE/DVT) 2.12 H* 06/18/19 10:45: Sodium 140, Potassium 3.7, Chloride 108 H, Carbon Dioxide 21.0, Anion Gap 11, BUN 81 H, Creatinine 2.94 H, Est GFR (MDRD) Af Amer 27 L, Est GFR (MDRD) Non-Af 23 L, BUN/Creatinine Ratio 27.6 H, Glucose 202 H, Calcium 9.5, Troponin I 0.164 H 06/18/19 10:45: B-Natriuretic Peptide 239.0 H 06/18/19 10:45: APTT 27.0 06/18/19 14:39: Hemoglobin A1c 6.2 06/18/19 14:39: Troponin I 5.950 H* 06/18/19 17:26: Troponin I 12.500 H* 06/18/19 17:26: APTT 125.1 H* 06/19/19 00:15: APTT 56.0 H 06/19/19 06:30: Sodium 142, Potassium 4.6, Chloride 105, Carbon Dioxide 29.0, Anion Gap 8, BUN 83 H, Creatinine 2.67 H, Est GFR (MDRD) Af Amer 31 L, Est GFR (MDRD) Non-Af 25 L, BUN/Creatinine Ratio 31.1 H, Glucose 118 H, Calcium 9.3 06/19/19 06:30: WBC 7.1, RBC 4.05 L, Hgb 13.1, Hct 39.2 L, MCV 96.8 H, MCH 32.3 H, MCHC 33.4, Plt Count 169, MPV 9.2, Immature Gran % (Auto) 0.800, Neut % (Auto) 69.3, Lymph % (Auto) 15.9 L, [place] % (Auto) 10.1 H, Eos % (Auto) 3.3, Baso % (Auto) 0.6, Absolute Neuts (auto) 4.9, Nucleated RBC % 0 06/19/19 06:30: APTT 64.4 H Rhythm: EKG: ECHO: Stress Test: Cardiac Cath: PCI: CT Surgery: Holter monitor: EPS: PPM: CXR: Chest CT Scan: Medical Necessity - Tobacco Use Smoking Status: Former smoker Assessment/Plan 1. Non-ST elevation myocardial infarction with atherosclerosis of coronary artery bypass graft of [place] heart without angina pectoris I25.810 PCI-AGAPITO-SVG to LCx w/ 3.5 x 12 mm Synergy 06/20/19 CABG x 3 BETHEA-LAD, SVG-LCX, SVG-D1 03/20/1997 He does have a history of atherosclerotic cardiovascular disease. As noted above he is bypass surgery with a BETHEA to the LAD saphenous vein graft to circumflex artery and saphenous vein graft to the diagonal branch. * He is status post angioplasty and stenting of the saphenous vein graft to the circumflex artery. Ideally he needs a repeat cardiac catheterization. Will h old off until his renal function appears to be improving * Would like to obtain input from the renal service 2. Paroxysmal atrial fibrillation I48.0 He does have a history of paroxysmal atrial fibrillation. He has had recent episodes of the above despite his pneumonia. This occurred when he was hospitalized. He has not had any since. His last echocardiogram demonstrated ejection fraction of 65% with no wall motion abnormalities present. He does have evidence of pulmonary artery hypertension. 3. Essential (primary) hypertension I10 Plan He does have a history of hypertension. His blood pressure appears to be better controlled at this time with the increase in the lisinopril. We will continue to follow the above. 4. Pure hypercholesterolemia E78.5 Plan He does have a history of hyperlipidemia and will continue with aggressive risk factor modification. 5. Chronic diastolic (congestive) heart failure I50.32 Plan He does have evidence of chronic diastolic heart failure he is tolerating the Lasix does quite well. No other changes will be made. Unfortunately his renal function appears to be significantly worse with an elevated BUN as well. We will continue to monitor the above. We may need nephrology input here. 6. History of coronary artery stent placement Z95.5 PCI-AGAPITO-SVG to LCx w/ 3.5 x 12 mm Synergy 09/28/18 He does have evidence of angioplasty and stenting of the saphenous vein graft to circumflex artery. He does have EKG changes which suggestive of ischemia to this distribution. He ideally would need to have a repeat cardiac catheterization. We may need to cautiously hydrate him before we perform the above. Thank you for allowing me to participate in the care of your patient. Please don't hesitate to call if any issues arise
[2019-06-19] MEDS: dilTIAZem CD 120 MG Capsule PO (09:29)
[2019-06-19] MEDS: Clopidogrel Bisulfate 75 MG Tablet PO (09:29)
[2019-06-19] MEDS: Atorvastatin Calcium 40 MG Tablet PO (09:29)
[2019-06-19] MEDS: busPIRone 15 MG TABLET PO ×2 (09:29→21:21)
[2019-06-19] MEDS: Amiodarone 200 MG Tablet PO (09:29)
[2019-06-19] MEDS: Citalopram 20 MG Tablet PO (09:30)
[2019-06-19] MEDS: HEPARIN/D5w 25,000 UNITS 25,000 UNITS/250 ML IV.SOLN. 12 UNITS IV (10:04)
[2019-06-19 12:01] LABS: Bedside Glucose 114 mg/dL (70-110)
--- NOTE | 2019-06-19 12:07 | PN_ITS ---
<Jakob Wyatt - Last Filed: 06/19/19 12:07> Patient Problems: Active and Suspected Problems (Last Reviewed 06/18/19 @ 13:[address] Ravinder Carter MD) Hypoxia (Acute) Mild congestive heart failure (Acute) Chest pain (Acute) Reason for Visit: CP Subjective: Patient resting comfortably in bed no acute distress. Yesterday he was having chest tightness and shortness of breath. Today at rest he has no chest tightness, pressure, pain, heaviness, and no shortness of breath. He is has not been out of bed yet today is not so is not sure if he has shortness of breath at rest. No fevers or chills. No cough, no lower extremity edema. No nausea vomiting or diarrhea. Patient states he has history of chronic kidney disease and follows with [place] [facility]. Vitals/I&O's: Vital Signs Temp Pulse Resp BP Pulse Ox 97.4 F L 62 18 129/63 H 96 06/19/19 09:25 06/19/19 11:00 06/19/19 09:25 06/19/19 09:25 06/19/19 09:25 Oxygen Flow Rate (L/min) 3 Oxygen Delivery Method Nasal Cannula Weight: 246 lb 14.684 oz Body Mass Index (BMI) 39.8 Finger Stick Blood Glucose 98 Intake and Output for Last 24 Hours 06/17/19 06/18/19 06/19/19 23:59 23:59 23:59 Intake Total 560.50 / 560.50 633.25 / 633.25 Output Total 4100 / 4100 1550 / 1550 Balance -3539.50 / -3539.50 -916.75 / -916.75 General: Alert, Oriented x3, Cooperative HEENT: Atraumatic, PERRLA, EOMI, Normocephalic Neck: Supple, No JVD, Negative Carotid Bruits Lungs: Clear to auscultation, Normal air movement Cardiovascular: Regular rate, No murmurs Abdomen: Bowel Sounds Present, Soft, Non Tender, Obese Extremities: No edema, Capillary Refill Less than 3 Seconds Skin: No rashes, No breakdown Musculoskeletal: No Tenderness to Palpation of Joints or Extremities Neurological: Cranial nerves II-XII grossly intact Psych/Mental Status: Normal Affect, Appropriate, Alert and oriented to time, place, person, mood and affect Laboratory Results 06/18/19 14:39: Hemoglobin A1c 6.2 06/18/19 14:39: Troponin I 5.950 H* 06/18/19 17:26: Troponin I 12.500 H* 06/18/19 17:26: APTT 125.1 H* 06/18/19 17:28: POC Glucose 85 06/18/19 21:40: POC Glucose 142 H 06/19/19 00:15: APTT 56.0 H 06/19/19 06:30: Sodium 142, Potassium 4.6, Chloride 105, Carbon Dioxide 29.0, Anion Gap 8, BUN 83 H, Creatinine 2.67 H, Estim Creat Clear Calc 23.23, Est GFR (MDRD) Af Amer 31 L, Est GFR (MDRD) Non-Af 25 L, BUN/Creatinine Ratio 31.1 H, Glucose 118 H, Calcium 9.3 06/19/19 06:30: WBC 7.1, RBC 4.05 L, Hgb 13.1, Hct 39.2 L, MCV 96.8 H, MCH 32.3 H, MCHC 33.4, RDW Std Deviation 53.6 H, RDW Coeff of Aranza 15.7 H, Plt Count 169, MPV 9.2, Immature Gran % (Auto) 0.800, Neut % (Auto) 69.3, Lymph % (Auto) 15.9 L , Labette % (Auto) 10.1 H, Eos % (Auto) 3.3, Baso % (Auto) 0.6, Absolute Neuts (auto) 4.9, Absolute Lymphs (auto) 1.12, Nucleated RBC % 0 06/19/19 06:30: APTT 64.4 H 06/19/19 06:39: POC Glucose 110 06/19/19 11:55: POC Glucose 114 H Current Medications Acetaminophen (Tylenol) 650 mg PO Q6H PRN PRN PRN Reason: Pain Score 1-10/Temp > 100.7 F Al Hydroxide/Mg Hydroxide (Mylanta Ii) 30 ml PO Q6H PRN PRN PRN Reason: Gastric Burning Albuterol Sulfate (Ventolin Aerosols) 2.5 mg INHALATION Q2H PRN PRN PRN Reason: SOB/Wheezing Amiodarone HCl (Cordarone) 200 mg PO DAILY [facility] Last Admin: 06/19/19 09:29 Dose: 200 mg Documented by: Aspirin (Ecotrin) 81 mg PO QHS [facility] Last Admin: 06/18/19 21:43 Dose: 81 mg Documented by: Atorvastatin Calcium (Lipitor) 40 mg PO DAILY [facility] Last Admin: 06/19/19 09:29 Dose: 40 mg Documented by: Buspirone HCl (Buspar) 15 mg PO BID [facility] Last Admin: 06/19/19 09:29 Dose: 15 mg Documented by: Citalopram Hydrobromide (Celexa) 20 mg PO DAILY [facility] Last Admin: 06/19/19 09:30 Dose: 20 mg Documented by: Clopidogrel Bisulfate (Plavix) 75 mg PO DAILY [facility] Last Admin: 06/19/19 09:29 Dose: 75 mg Documented by: Dextrose (D50w Syringe) 0 gm IV X1 PRN; Protocol PRN Reason: Hypoglycemia Diltiazem HCl (Cardizem Cd) 120 mg PO DAILY [facility] Last Admin: 06/19/19 09:29 Dose: 120 mg Documented by: Furosemide (Lasix) 40 mg IV Q8 [facility] Last Admin: 06/19/19 06:41 Dose: 40 mg Documented by: Glucagon () 1 mg IM .X1 PRN PRN Reason: Hypoglycemia Guaifenesin (Robitussin) 20 ml PO Q4H PRN PRN PRN Reason: COUGH Heparin Sodium (Porcine) (Heparin Na) 0 unit IV UD PRN; Protocol Sodium Chloride () 1,000 mls @ 15 mls/hr IV .Q48H [facility] Last Infusion: 06/18/19 21:55 Dose: 0 mls/hr Documented by: Heparin Sodium/Dextrose () 25,000 units in 250 mls @ 15 mls/hr IV .[id number] [facility]; Protocol Last Admin: 06/19/19 10:04 Dose: 1,200 units/hr, 12 mls/hr Documented by: Insulin Human Lispro (Humalog Kwikpen (Bkc)) 0 unit SC ACHS [facility]; Protocol Last Admin: 06/19/19 11:58 Dose: Not Given Documented by: Melatonin (Melatonin) 3 mg PO QHS PRN PRN PRN Reason: INSOMNIA Oxycodone HCl (Oxyir) 5 mg PO Q4H PRN PRN PRN Reason: Pain Score 4-5/10 Prochlorperazine Edisylate (Compazine Iv) 5 mg IV Q4H PRN PRN PRN Reason: Breakthrough Nausea/Vomiting Senna/Docusate Sodium (Senokot-S, Liv-Colace) 2 tablet PO BID PRN PRN PRN Reason: Constipation Sodium Chloride () 10 - 40 ml IV UD PRN PRN Reason: SALINE FLUSH Last Admin: 06/19/19 06:41 Dose: 10 ml Documented by: STROKE Vital Signs/Narrative: Vital Signs Temp Pulse Resp BP Pulse Ox 06/19/19 11:00 62 06/19/19 09:25 97.4 F L 61 18 129/63 H 96 06/19/19 08:15 95 Medical Necessity - Tobacco Use Smoking Status: Former smoker Assessment/Plan All Active Problems (Last Reviewed 06/18/19 @ 13:[address] Ravinder Carter MD) Hypoxia (Acute) Mild congestive heart failure (Acute) Chest pain (Acute) Rotator cuff tear arthropathy of right shoulder (Resolved) Acute alcohol intoxication (Resolved) History of transurethral resection of prostate (Resolved 2004) H/O shoulder replacement (Resolved 2014) History of nasal surgery (Resolved ~2002) History of mandibular surgery (Resolved ~1992) History of radiofrequency ablation procedure for cardiac arrhythmia (Resolved 2011) History of angioplasty of peripheral vessel (Resolved 03/1996) Chest heaviness (Acute) Shortness of breath (Acute) 1. NSTEMI - hx CAD, prior CABG/stents. Continue aspirin, statin, Plavix. Last troponin 12.5. Consult to nephrology given likely need for catheterization. -VQ scan negative, duplex ultrasound lower extremities negative. -Echocardiogram shows normal LV size and systolic function, EF 65%, PASP 55 mmHg-moderate pulmonary hypertension, stage III diastolic dysfunction, no significant change compared to prior. 2. CKD stage III-consult to [place] [facility]. Improved since yesterday. 2. P afib- SR. Rate stable. Continue amiodarone, Cardizem 3. HTN-currently stable 4. HLD-statin 5. Chronic diastolic CHF - no acute exacerbation. Echo results as above. 6. PAD-prior lower extremity stenting. 7. JD - cpap qhs 8. BPH prior TURP 9. Depression/anxiety-Celexa BuSpar, melatonin DVT prophylaxis: Heparin This patient was seen by Jakob Edmundo PA-C under the supervision of Doctor Raul. <Ravinder Carter - Last Filed: 06/19/19 13:33> Vitals/I&O's: Vital Signs Temp Pulse Resp BP Pulse Ox 97.4 F L 62 18 129/63 H 96 06/19/19 09:25 06/19/19 11:00 06/19/19 09:25 06/19/19 09:25 06/19/19 09:25 Oxygen Flow Rate (L/min) 3 Oxygen Delivery Method Nasal Cannula Weight: 112 kg Body Mass Index (BMI) 39.8 Finger Stick Blood Glucose 98 Intake and Output for Last 24 Hours 06/17/19 06/18/19 06/19/19 23:59 23:59 23:59 Intake Total 560.50 / 560.50 633.25 / 633.25 Output Total 4100 / 4100 1550 / 1550 Balance -3539.50 / -3539.50 -916.75 / -916.75 Laboratory Results 06/18/19 14:39: Hemoglobin A1c 6.2 06/18/19 14:39: Troponin I 5.950 H* 06/18/19 17:26: Troponin I 12.500 H* 06/18/19 17:26: APTT 125.1 H* 06/18/19 17:28: POC Glucose 85 06/18/19 21:40: POC Glucose 142 H 06/19/19 00:15: APTT 56.0 H 06/19/19 06:30: Sodium 142, Potassium 4.6, Chloride 105, Carbon Dioxide 29.0, Anion Gap 8, BUN 83 H, Creatinine 2.67 H, Estim Creat Clear Calc 23.23, Est GFR (MDRD) Af Amer 31 L, Est GFR (MDRD) Non-Af 25 L, BUN/Creatinine Ratio 31.1 H, Glucose 118 H, Calcium 9.3 06/19/19 06:30: WBC 7.1, RBC 4.05 L, Hgb 13.1, Hct 39.2 L, MCV 96.8 H, MCH 32.3 H, MCHC 33.4, RDW Std Deviation 53.6 H, RDW Coeff of Aranza 15.7 H, Plt Count 169, MPV 9.2, Immature Gran % (Auto) 0.800, Neut % (Auto) 69.3, Lymph % (Auto) 15.9 L , Labette % (Auto) 10.1 H, Eos % (Auto) 3.3, Baso % (Auto) 0.6, Absolute Neuts (auto) 4.9, Absolute Lymphs (auto) 1.12, Nucleated RBC % 0 06/19/19 06:30: APTT 64.4 H 06/19/19 06:39: POC Glucose 110 06/19/19 11:55: POC Glucose 114 H Current Medications Acetaminophen (Tylenol) 650 mg PO Q6H PRN PRN PRN Reason: Pain Score 1-10/Temp > 100.7 F Al Hydroxide/Mg Hydroxide (Mylanta Ii) 30 ml PO Q6H PRN PRN PRN Reason: Gastric Burning Albuterol Sulfate (Ventolin Aerosols) 2.5 mg INHALATION Q2H PRN PRN PRN Reason: SOB/Wheezing Amiodarone HCl (Cordarone) 200 mg PO DAILY [facility] Last Admin: 06/19/19 09:29 Dose: 200 mg Documented by: Aspirin (Ecotrin) 81 mg PO QHS [facility] Last Admin: 06/18/19 21:43 Dose: 81 mg Documented by: Atorvastatin Calcium (Lipitor) 40 mg PO DAILY [facility] Last Admin: 06/19/19 09:29 Dose: 40 mg Documented by: Buspirone HCl (Buspar) 15 mg PO BID [facility] Last Admin: 06/19/19 09:29 Dose: 15 mg Documented by: Citalopram Hydrobromide (Celexa) 20 mg PO DAILY [facility] Last Admin: 06/19/19 09:30 Dose: 20 mg Documented by: Clopidogrel Bisulfate (Plavix) 75 mg PO DAILY [facility] Last Admin: 06/19/19 09:29 Dose: 75 mg Documented by: Dextrose (D50w Syringe) 0 gm IV X1 PRN; Protocol PRN Reason: Hypoglycemia Diltiazem HCl (Cardizem Cd) 120 mg PO DAILY [facility] Last Admin: 06/19/19 09:29 Dose: 120 mg Documented by: Furosemide (Lasix) 40 mg IV Q8 [facility] Last Admin: 06/19/19 06:41 Dose: 40 mg Documented by: Glucagon () 1 mg IM .X1 PRN PRN Reason: Hypoglycemia Guaifenesin (Robitussin) 20 ml PO Q4H PRN PRN PRN Reason: COUGH Heparin Sodium (Porcine) (Heparin Na) 0 unit IV UD PRN; Protocol Sodium Chloride () 1,000 mls @ 15 mls/hr IV .Q48H [facility] Last Infusion: 06/18/19 21:55 Dose: 0 mls/hr Documented by: Heparin Sodium/Dextrose () 25,000 units in 250 mls @ 15 mls/hr IV .[id number] [facility]; Protocol Last Admin: 06/19/19 10:04 Dose: 1,200 units/hr, 12 mls/hr Documented by: Insulin Human Lispro (Humalog Kwikpen (Bkc)) 0 unit SC ACHS [facility]; Protocol Last Admin: 06/19/19 11:58 Dose: Not Given Documented by: Melatonin (Melatonin) 3 mg PO QHS PRN PRN PRN Reason: INSOMNIA Oxycodone HCl (Oxyir) 5 mg PO Q4H PRN PRN PRN Reason: Pain Score 4-5/10 Prochlorperazine Edisylate (Compazine Iv) 5 mg IV Q4H PRN PRN PRN Reason: Breakthrough Nausea/Vomiting Senna/Docusate Sodium (Senokot-S, Liv-Colace) 2 tablet PO BID PRN PRN PRN Reason: Constipation Sodium Chloride () 10 - 40 ml IV UD PRN PRN Reason: SALINE FLUSH Last Admin: 06/19/19 06:41 Dose: 10 ml Documented by: STROKE Vital Signs/Narrative: Vital Signs Pulse 06/19/19 11:00 62 Assessment/Plan This patient was seen in conjunction with Jakob Wyatt PA-C . I have independently interviewed and examined the patient and reviewed pertinent historical, laboratory, and other data. Please refer to Jakob Wyatt PA-C note for details of this patient's presentation, findings, and recommendations. I have reviewed Jakob Wyatt PA-C note and concur with documented findings. In brief, Patient is a 68-year-old gentleman presenting with shortness of breath has discomfort. Admitted to a monitored bed subsequent evaluation came back consistent with acute non-STEMI as well as congestive heart failure Physical Examination: GENERAL: cooperative HEENT: Atraumatic; EYES; Anicteric, Normal Conjunctiva NECK; supple, normal thyroid, RESPIRATORY: Diminished to auscultation CARDIOVASCULAR: Regular S1 S2, GI: soft, normoactive bowel sounds, : No Renal angle tenderness; EXTREMITIES: No edema, no clubbing, MUSCULOSKELETAL: no muscle waisting NEURO: Awake; no lateralizing signs. SKIN: No Rash PSYCH; Flat affect Assessment: 1. Acute dyspnea secondary to acute non-STEMI and congestive heart failure 2. Elevated d-dimer?PE and DVT ruled out 3. Acute kidney injury ?Superimposed on baseline chronic kidney disease III. P 3. Coronary artery disease patient - - previous CABG (CABG x 3 BETHEA-LAD, SVG- LCX, SVG-D1 03/20/1997) subsequent PCI with intervention (PCI-AGAPITO-SVG to LCx w/ 3.5 x 12 mm Synergy 09/28/18) 4. Peripheral arterial disease 5. Dyslipidemia 6. Paroxysmal A. fib r 7. Obstructive sleep apnea 8. Hypertension 9. Obesity with BMI of 40 10. History of rotator cuff tear arthropathy of right shoulder 11. BPH 12. DVT prophylaxis ?Patient on systemic anticoagulation with heparin Recommendations: 1. I have discussed the results of my overview and impressions with the patient 2. Options for management were reviewed Inpatient E&M: [id number] [facility] Hosp L3
--- NOTE | 2019-06-19 12:27 | CASEMGMT ---
TORITO KIMBROUGH assessment: Face to Face with patient for initial transition planning/care coordination assessment. TORITO KIMBROUGH introduced self and role at [facility], pt voices understanding and consents to assessment at this time. Pt is sitting up in bed in no distress at this time. Pt is A/Ox4 at this time and answers all questions appropriately at this time. Care providers, pharmacy, and demographics verified at this time. Presentation: Pt with increasing SOB for last month, upper chest discomfort-72% on room air Admitting dx: SOB/CP PCP: [facility] Specialists: Crow, cardio; Philip, pulm; Bri nephro [facility]acy: [facility] Insurance: [facility] A/B, [employer] Prescription Benefit: Yes Living Will/HPOA: Pt states has LW/HPOA and pt is aware that the LW is on file but the HPOA is not on file at [facility] at this time. Pt states that he can try and have his bring it in. Pt states that his , Dinorah Deutsch, is HPOA. LNOK: Dinorah Deutsch, Living Arrangements: Pt states lives with in 1 story home with 3 steps in and states no concerns at home at this time. Pt states is independent with ADL's. Transportation: Pt states drives self and states no transportation concerns at this time. DME/HHC: Pt states has grab bars and cpap thru [employer]. Pt states no need for any further DME at this time. Pt states no hx of HHC or SNF in the past. Pt states no concerns with going home at time of discharge. Pt states is retired. Pt states does not smoke but occasionally drinks a beer. Pt states no further concerns/needs at this time. CM to follow PT/OT evals, home oxygen need, and for any further discharge planning/needs. Advised pt to ask for CM if any further questions/concerns/needs arise, voices understanding. Pt Goal: Home Plan[place] TORITO KIMBROUGH
--- NOTE | 2019-06-19 13:26 | PCM.CONS.R ---
Consultation - Renal PCP/ Referring MD: Requesting physician: [] Primary care physician: Jazz Rodas DO - History of Present Illness History of Present Illness: The patient is a 68 year old M PMH of CAD s/p CABG, PVD, CKD stage 3, pulmonary HTN, B/L RICKY and PAF Pt presented with sudden onset of chest pain and SOB the morning of admission on 06/17 Pt was started on heparin drip for possible diagnosis of PE. No CT chest was done due to REGINO Renal team was consulted for REGINO. Pt has baseline SCr 1.1 m/gdL in 2019. In May 2019 SCr was 1.8 mg/dl Pt presented to ED with SCr 2.94 mg/dL. Pt was started on lasix 40 mg IV tid. SCr is better at 2.67 mg/dL Pt's troponin has been rising significantly , Troponin this am is up to 12 Dr. Maria is consulted. ROS: 12 systems review is negative [] - Allergies Allergies: Allergies gabapentin Adverse Reaction (Verified 06/18/19 10:42) Other made me nuts warfarin [From Coumadin] Adverse Reaction (Verified 06/18/19 10:42) very sensitive, high INR and GI bleed - Current Medications Current Medications: Current Medications Acetaminophen (Tylenol) 650 mg PO Q6H PRN PRN PRN Reason: Pain Score 1-10/Temp > 100.7 F Al Hydroxide/Mg Hydroxide (Mylanta Ii) 30 ml PO Q6H PRN PRN PRN Reason: Gastric Burning Albuterol Sulfate (Ventolin Aerosols) 2.5 mg INHALATION Q2H PRN PRN PRN Reason: SOB/Wheezing Amiodarone HCl (Cordarone) 200 mg PO DAILY [facility] Last Admin: 06/19/19 09:29 Dose: 200 mg Documented by: Aspirin (Ecotrin) 81 mg PO QHS [facility] Last Admin: 06/18/19 21:43 Dose: 81 mg Documented by: Atorvastatin Calcium (Lipitor) 40 mg PO DAILY [facility] Last Admin: 06/19/19 09:29 Dose: 40 mg Documented by: Buspirone HCl (Buspar) 15 mg PO BID [facility] Last Admin: 06/19/19 09:29 Dose: 15 mg Documented by: Citalopram Hydrobromide (Celexa) 20 mg PO DAILY [facility] Last Admin: 06/19/19 09:30 Dose: 20 mg Documented by: Clopidogrel Bisulfate (Plavix) 75 mg PO DAILY [facility] Last Admin: 06/19/19 09:29 Dose: 75 mg Documented by: Dextrose (D50w Syringe) 0 gm IV X1 PRN; Protocol PRN Reason: Hypoglycemia Diltiazem HCl (Cardizem Cd) 120 mg PO DAILY [facility] Last Admin: 06/19/19 09:29 Dose: 120 mg Documented by: Furosemide (Lasix) 40 mg IV Q8 [facility] Last Admin: 06/19/19 06:41 Dose: 40 mg Documented by: Glucagon () 1 mg IM .X1 PRN PRN Reason: Hypoglycemia Guaifenesin (Robitussin) 20 ml PO Q4H PRN PRN PRN Reason: COUGH Heparin Sodium (Porcine) (Heparin Na) 0 unit IV UD PRN; Protocol Sodium Chloride () 1,000 mls @ 15 mls/hr IV .Q48H [facility] Last Infusion: 06/18/19 21:55 Dose: 0 mls/hr Documented by: Heparin Sodium/Dextrose () 25,000 units in 250 mls @ 15 mls/hr IV .[id number] [facility]; Protocol Last Admin: 06/19/19 10:04 Dose: 1,200 units/hr, 12 mls/hr Documented by: Insulin Human Lispro (Humalog Kwikpen (Bkc)) 0 unit SC ACHS [facility]; Protocol Last Admin: 06/19/19 11:58 Dose: Not Given Documented by: Melatonin (Melatonin) 3 mg PO QHS PRN PRN PRN Reason: INSOMNIA Oxycodone HCl (Oxyir) 5 mg PO Q4H PRN PRN PRN Reason: Pain Score 4-5/10 Prochlorperazine Edisylate (Compazine Iv) 5 mg IV Q4H PRN PRN PRN Reason: Breakthrough Nausea/Vomiting Senna/Docusate Sodium (Senokot-S, Liv-Colace) 2 tablet PO BID PRN PRN PRN Reason: Constipation Sodium Chloride () 10 - 40 ml IV UD PRN PRN Reason: SALINE FLUSH Last Admin: 06/19/19 06:41 Dose: 10 ml Documented by: - Past Medical History Past Medical History (Chronic Problems): Chronic Problems (Last Reviewed 06/18/19 @ 13:[address] Ravinder Carter MD) Obesity (BMI 30-39.9) (Chronic) Anxiety and depression (Chronic) Sleep apnea (Chronic) Persistent atrial fibrillation (Chronic) Left carotid stenosis (Chronic) Chronic kidney disease (Chronic) Chronic diastolic (congestive) heart failure (Chronic) Secondary pulmonary arterial hypertension (Chronic) Atherosclerosis of coronary artery bypass graft without angina pectoris (Chronic) PCI-AGAPITO-SVG to LCx w/ 3.5 x 12 mm Synergy 09/28/18 CABG x 3 BETHEA-LAD, SVG-LCX, SVG-D1 03/20/1997 History of coronary artery bypass surgery (Chronic 03/20/97) CABG X 3 BETHEA to LAD, SVG-LCx, SVG-D1 03/20/1997 History of coronary artery stent placement (Chronic 09/28/18) PCI-AGAPITO-SVG to LCx w/ 3.5 x 12 mm Synergy 09/28/18 Paroxysmal atrial fibrillation (Chronic) RFA Paroxysmal atrial flutter (Chronic) RFA Essential (primary) hypertension (Chronic) HLD (hyperlipidemia) (Chronic) Peripheral vascular occlusive disease (Chronic) Bilateral renal artery stenosis (Chronic) Stage III chronic kidney disease (Chronic) - Past Surgical History Surgical History: coronary bypass surgery, - - Social History Smoking Status: Former smoker Alcohol: None Drugs: None - Family History Paternal Family History: Family History (Last Reviewed 06/18/19 @ 13:[address] Ravinder Carter MD) Father Myocardial infarction Heart disease Mother CAD (coronary artery disease) Brother CAD (coronary artery disease) Diabetes Hx of CABG Sister Hypertension Pulmonary embolism History Items: Heart Disease, Hypertension Maternal Family History: Family History (Last Reviewed 06/18/19 @ 13:[address] Ravinder Carter MD) Father Myocardial infarction Heart disease Mother CAD (coronary artery disease) Brother CAD (coronary artery disease) Diabetes Hx of CABG Sister Hypertension Pulmonary embolism History Items: Stroke Patient Problems: Active and Suspected Problems (Last Reviewed 06/18/19 @ 13:[address] Ravinder Carter MD) Hypoxia (Acute) Mild congestive heart failure (Acute) Chest pain (Acute) - Physical Exam Vitals/I&O's: Vital Signs Temp Pulse Resp BP Pulse Ox 97.4 F L 62 18 129/63 H 96 06/19/19 09:25 06/19/19 11:00 06/19/19 09:25 06/19/19 09:25 06/19/19 09:25 Oxygen Flow Rate (L/min) 3 Oxygen Delivery Method Nasal Cannula Weight: 112 kg Body Mass Index (BMI) 39.8 Finger Stick Blood Glucose 98 Intake and Output for Last 24 Hours 06/17/19 06/18/19 06/19/19 23:59 23:59 23:59 Intake Total 560.50 / 560.50 633.25 / 633.25 Output Total 4100 / 4100 1550 / 1550 Balance -3539.50 / -3539.50 -916.75 / -916.75 General: Alert, Oriented x3 HEENT: Atraumatic Oral: Moist Mucosa Neck: Supple, No JVD Lungs: Clear to auscultation, Normal air movement, No rhonchi, No wheeze Cardiovascular: Regular rate, Regular Rhythm, Normal S1, Normal S2 Abdomen: Bowel Sounds Present, Soft, Non Tender, Non-Distended Extremities: No clubbing, No cyanosis, No edema Skin: No rashes Musculoskeletal: No Tenderness to Palpation of Joints or Extremities Lymphatic: No Cervical, Supraclavicular, or Inguinal Adenopathy Neurological: Cranial nerves II-XII grossly intact Psych/Mental Status: Appropriate Laboratory Results 06/18/19 14:39: Hemoglobin A1c 6.2 06/18/19 14:39: Troponin I 5.950 H* 06/18/19 17:26: Troponin I 12.500 H* 06/18/19 17:26: APTT 125.1 H* 06/18/19 17:28: POC Glucose 85 06/18/19 21:40: POC Glucose 142 H 06/19/19 00:15: APTT 56.0 H 06/19/19 06:30: Sodium 142, Potassium 4.6, Chloride 105, Carbon Dioxide 29.0, Anion Gap 8, BUN 83 H, Creatinine 2.67 H, Estim Creat Clear Calc 23.23, Est GFR (MDRD) Af Amer 31 L, Est GFR (MDRD) Non-Af 25 L, BUN/Creatinine Ratio 31.1 H, Glucose 118 H, Calcium 9.3 06/19/19 06:30: WBC 7.1, RBC 4.05 L, Hgb 13.1, Hct 39.2 L, MCV 96.8 H, MCH 32.3 H, MCHC 33.4, RDW Std Deviation 53.6 H, RDW Coeff of Aranza 15.7 H, Plt Count 169, MPV 9.2, Immature Gran % (Auto) 0.800, Neut % (Auto) 69.3, Lymph % (Auto) 15.9 L, [place] % (Auto) 10.1 H, Eos % (Auto) 3.3, Baso % (Auto) 0.6, Absolute Neuts (auto) 4.9, Absolute Lymphs (auto) 1.12, Nucleated RBC % 0 06/19/19 06:30: APTT 64.4 H 06/19/19 06:39: POC Glucose 110 06/19/19 11:55: POC Glucose 114 H Current Medications Acetaminophen (Tylenol) 650 mg PO Q6H PRN PRN PRN Reason: Pain Score 1-10/Temp > 100.7 F Al Hydroxide/Mg Hydroxide (Mylanta Ii) 30 ml PO Q6H PRN PRN PRN Reason: Gastric Burning Albuterol Sulfate (Ventolin Aerosols) 2.5 mg INHALATION Q2H PRN PRN PRN Reason: SOB/Wheezing Amiodarone HCl (Cordarone) 200 mg PO DAILY [facility] Last Admin: 06/19/19 09:29 Dose: 200 mg Documented by: Aspirin (Ecotrin) 81 mg PO QHS [facility] Last Admin: 06/18/19 21:43 Dose: 81 mg Documented by: Atorvastatin Calcium (Lipitor) 40 mg PO DAILY [facility] Last Admin: 06/19/19 09:29 Dose: 40 mg Documented by: Buspirone HCl (Buspar) 15 mg PO BID [facility] Last Admin: 06/19/19 09:29 Dose: 15 mg Documented by: Citalopram Hydrobromide (Celexa) 20 mg PO DAILY [facility] Last Admin: 06/19/19 09:30 Dose: 20 mg Documented by: Clopidogrel Bisulfate (Plavix) 75 mg PO DAILY [facility] Last Admin: 06/19/19 09:29 Dose: 75 mg Documented by: Dextrose (D50w Syringe) 0 gm IV X1 PRN; Protocol PRN Reason: Hypoglycemia Diltiazem HCl (Cardizem Cd) 120 mg PO DAILY [facility] Last Admin: 06/19/19 09:29 Dose: 120 mg Documented by: Furosemide (Lasix) 40 mg IV Q8 [facility] Last Admin: 06/19/19 06:41 Dose: 40 mg Documented by: Glucagon () 1 mg IM .X1 PRN PRN Reason: Hypoglycemia Guaifenesin (Robitussin) 20 ml PO Q4H PRN PRN PRN Reason: COUGH Heparin Sodium (Porcine) (Heparin Na) 0 unit IV UD PRN; Protocol Sodium Chloride () 1,000 mls @ 15 mls/hr IV .Q48H [facility] Last Infusion: 06/18/19 21:55 Dose: 0 mls/hr Documented by: Heparin Sodium/Dextrose () 25,000 units in 250 mls @ 15 mls/hr IV .[id number] [facility]; Protocol Last Admin: 06/19/19 10:04 Dose: 1,200 units/hr, 12 mls/hr Documented by: Insulin Human Lispro (Humalog Kwikpen (Bkc)) 0 unit SC ACHS [facility]; Protocol Last Admin: 06/19/19 11:58 Dose: Not Given Documented by: Melatonin (Melatonin) 3 mg PO QHS PRN PRN PRN Reason: INSOMNIA Oxycodone HCl (Oxyir) 5 mg PO Q4H PRN PRN PRN Reason: Pain Score 4-5/10 Prochlorperazine Edisylate (Compazine Iv) 5 mg IV Q4H PRN PRN PRN Reason: Breakthrough Nausea/Vomiting Senna/Docusate Sodium (Senokot-S, Liv-Colace) 2 tablet PO BID PRN PRN PRN Reason: Constipation Sodium Chloride () 10 - 40 ml IV UD PRN PRN Reason: SALINE FLUSH Last Admin: 06/19/19 06:41 Dose: 10 ml Documented by: Assessment/Plan All Active Problems (Last Reviewed 06/18/19 @ 13:[address] Ravinder Carter MD) Hypoxia (Acute) Mild congestive heart failure (Acute) Chest pain (Acute) Rotator cuff tear arthropathy of right shoulder (Resolved) Acute alcohol intoxication (Resolved) History of transurethral resection of prostate (Resolved 2004) H/O shoulder replacement (Resolved 2014) History of nasal surgery (Resolved ~2002) History of mandibular surgery (Resolved ~1992) History of radiofrequency ablation procedure for cardiac arrhythmia (Resolved 2011) History of angioplasty of peripheral vessel (Resolved 03/1996) Chest heaviness (Acute) Shortness of breath (Acute) 1- REGINO on CKD stage 3. REGINO is likely prerenal related to CRS SCr is better with diuresis. Ok to continue the same dose of lasix Agree with holding home lisinopril No need for [employer]MER Pt and his wide understand that there is a risk for worsening kidney function or even needing HD with IV contrast exposure during cardiac cath. I told Dr. Maria and the patient that if the cardiac cath is emergent/life saving, I am Ok with pursuing it and will monitor kidney function after the cath Please hold diuretic prior to cardiac cath. start IV NS at 100 cc/hour for 3 hour till 3 hours after the cardiac cath 2- HTN: BP is well controlled Continue holding lisinopril 3- NSTEMI: On heparin drip cardiac cath as per the cardiology service Thank you for the consult Renal team will continue to follow Please call if any question Elizabeth Interiano MD
[2019-06-19 17:30] LABS: Bedside Glucose 126 mg/dL (70-110)
[2019-06-19] MEDS: Aspirin E.C. 81 MG Tablet PO (21:21)
[2019-06-19] MEDS: Insulin Lispro 100 UNIT/ML INSULN.PEN SC (21:32)
[2019-06-19 21:51] LABS: Bedside Glucose 161 mg/dL (70-110)
[2019-06-20] VITALS (9 sets, daily range): BP systolic 112–166; BP diastolic 53–81; PULSE 69–87; RESP 16–18; TEMP 36.6–36.8; O2SAT 94–97
[2019-06-20] MEDS: 0.9% Saline Lock 10 ML Syringe IV ×3 (06:13→23:22)
[2019-06-20] MEDS: Furosemide 40 MG/4 ML Vial IV (06:13)
[2019-06-20 06:25] LABS: Absolute Neutrophil Count 4.3 X10^3/uL (2.0-7.7); Basophil# 0.03 X10^3/uL; Basophil% 0.5 % (0-1); Eosinophil# 0.23 X10^3/uL; Eosinophils% 3.5 % (0-5); Hematocrit 42.6 % (40-54); Lymphocyte % 19.5 % (19-41); Mean Corp Hgb Conc 32.9 g/dL (32-36); Mean Corpuscular Hgb 31.5 pg (27.0-32.0); Mean Corpuscular Volume 95.9 fL (80-94); Mean Platelet Vol. 9.2 fl (6.2-12.0); Monocyte# 0.69 X10^3/uL; Monocyte% 10.4 % (0-10); NRBC Flagged by Analyzer 0 % (0-5); Neutrophil # 4.32 X10^3/uL (2.7-7.7); Neutrophil % 64.9 % (47-70); Platelet Count 177 K/mm3 (150-450); RBC Distribution Width CV 15.7 % (11.6-14.6); RBC Distribution Width SD 53.2 fl (35.1-43.9); Red Blood Count 4.44 M/mm3 (4.6-6.2); White Blood Count 6.7 K/mm3 (4.4-11.0)
[2019-06-20 06:42] LABS: Partial Thromboplast Time 59.3 Seconds (24.1-36.2)
[2019-06-20 06:49] LABS: Anion Gap 6 (5-15); BUN 77 mg/dL (7-18); BUN/Creat Ratio 32.9 RATIO (10-20); Calcium,Total 9.5 mg/dL (8.5-10.1); Chloride 103 mmol/L (98-107); Creatinine, Serum 2.34 mg/dL (0.70-1.30); EST Glomerular Filtration Rate 29 mL/min (>60); Est Glom Filt Rate - Afr Amer 36 mL/min (>60); Estimated Creatinine Clearance 26.51 ml/min; Glucose 122 mg/dL (74-106); Potassium 4.1 mmol/L (3.5-5.1); Sodium Level 140 mmol/L (136-145)
[2019-06-20 06:51] LABS: Bedside Glucose 117 mg/dL (70-110)
[2019-06-20] MEDS: HEPARIN/D5w 25,000 UNITS 25,000 UNITS/250 ML IV.SOLN. 12 UNITS IV (07:48)
[2019-06-20] MEDS: Citalopram 20 MG Tablet PO (09:28)
[2019-06-20] MEDS: Clopidogrel Bisulfate 75 MG Tablet PO (09:28)
[2019-06-20] MEDS: busPIRone 15 MG TABLET PO ×2 (09:28→23:23)
[2019-06-20] MEDS: Atorvastatin Calcium 40 MG Tablet PO (09:28)
[2019-06-20] MEDS: dilTIAZem CD 120 MG Capsule PO (09:28)
[2019-06-20] MEDS: Amiodarone 200 MG Tablet PO (09:28)
--- NOTE | 2019-06-20 10:45 | PCM.PN.REN ---
Patient Problems: Active and Suspected Problems (Last Reviewed 06/18/19 @ 13:[address] Ravinder Carter MD) Hypoxia (Acute) Mild congestive heart failure (Acute) Chest pain (Acute) Subjective: Pt is doing well No nausea No vomiting. No SOB No CP - Physical Exam Vitals/I&O's: Vital Signs Temp Pulse Resp BP Pulse Ox 97.8 F 87 18 144/57 H 97 06/20/19 09:20 06/20/19 09:20 06/20/19 09:20 06/20/19 09:20 06/20/19 09:20 Oxygen Flow Rate (L/min) 1 Oxygen Delivery Method Room Air Weight: 112 kg Body Mass Index (BMI) 39.8 Finger Stick Blood Glucose 98 Intake and Output for Last 24 Hours 06/18/19 06/19/19 06/20/19 23:59 23:59 23:59 Intake Total 560.50 / 560.50 753.25 / 993.25 482.6 / 482.6 Output Total 4100 / 4100 1950 / 2975 1025 / 1025 Balance -3539.50 / -3539.50 -1196.75 / -1981.75 -542.4 / -542.4 General: Alert, Oriented x3 HEENT: Atraumatic Oral: Moist Mucosa Neck: Supple, No JVD Lungs: Clear to auscultation, Normal air movement, No rhonchi, No wheeze Cardiovascular: Regular rate, Regular Rhythm, Normal S1, Normal S2 Abdomen: Bowel Sounds Present, Soft, Non Tender, Non-Distended Extremities: No clubbing, No cyanosis, No edema Skin: No rashes Musculoskeletal: No Tenderness to Palpation of Joints or Extremities Lymphatic: No Cervical, Supraclavicular, or Inguinal Adenopathy Neurological: Cranial nerves II-XII grossly intact, Neuro grossly intact Psych/Mental Status: Appropriate Laboratory Results 06/19/19 11:55: POC Glucose 114 H 06/19/19 17:21: POC Glucose 126 H 06/19/19 21:20: POC Glucose 161 H 06/20/19 05:10: Sodium 140, Potassium 4.1, Chloride 103, Carbon Dioxide 31.0, Anion Gap 6, BUN 77 H, Creatinine 2.34 H, Estim Creat Clear Calc 26.51, Est GFR (MDRD) Af Amer 36 L, Est GFR (MDRD) Non-Af 29 L, BUN/Creatinine Ratio 32.9 H, Glucose 122 H, Calcium 9.5 06/20/19 05:10: WBC 6.7, RBC 4.44 L, Hgb 14.0, Hct 42.6, MCV 95.9 H, MCH 31.5, MCHC 32.9, RDW Std Deviation 53.2 H, RDW Coeff of Aranza 15.7 H, Plt Count 177, MPV 9.2, Immature Gran % (Auto) 1.200 H, Neut % (Auto) 64.9, Lymph % (Auto) 19.5, [place] % (Auto) 10.4 H, Eos % (Auto) 3.5, Baso % (Auto) 0.5, Absolute Neuts (auto) 4.3, Absolute Lymphs (auto) 1.30, Nucleated RBC % 0 06/20/19 05:10: APTT 59.3 H 06/20/19 06:43: POC Glucose 117 H Current Medications Acetaminophen (Tylenol) 650 mg PO Q6H PRN PRN PRN Reason: Pain Score 1-10/Temp > 100.7 F Al Hydroxide/Mg Hydroxide (Mylanta Ii) 30 ml PO Q6H PRN PRN PRN Reason: Gastric Burning Albuterol Sulfate (Ventolin Aerosols) 2.5 mg INHALATION Q2H PRN PRN PRN Reason: SOB/Wheezing Amiodarone HCl (Cordarone) 200 mg PO DAILY [facility] Last Admin: 06/20/19 09:28 Dose: 200 mg Documented by: Aspirin (Ecotrin) 81 mg PO QHS [facility] Last Admin: 06/19/19 21:21 Dose: 81 mg Documented by: Atorvastatin Calcium (Lipitor) 40 mg PO DAILY [facility] Last Admin: 06/20/19 09:28 Dose: 40 mg Documented by: Buspirone HCl (Buspar) 15 mg PO BID [facility] Last Admin: 06/20/19 09:28 Dose: 15 mg Documented by: Citalopram Hydrobromide (Celexa) 20 mg PO DAILY [facility] Last Admin: 06/20/19 09:28 Dose: 20 mg Documented by: Clopidogrel Bisulfate (Plavix) 75 mg PO DAILY [facility] Last Admin: 06/20/19 09:28 Dose: 75 mg Documented by: Dextrose (D50w Syringe) 0 gm IV X1 PRN; Protocol PRN Reason: Hypoglycemia Diltiazem HCl (Cardizem Cd) 120 mg PO DAILY [facility] Last Admin: 06/20/19 09:28 Dose: 120 mg Documented by: Furosemide (Lasix) 40 mg IV Q8 [facility] Last Admin: 06/20/19 10:33 Dose: Not Given Documented by: Glucagon () 1 mg IM .X1 PRN PRN Reason: Hypoglycemia Guaifenesin (Robitussin) 20 ml PO Q4H PRN PRN PRN Reason: COUGH Heparin Sodium (Porcine) (Heparin Na) 0 unit IV UD PRN; Protocol Sodium Chloride () 1,000 mls @ 15 mls/hr IV .Q48H [facility] Last Infusion: 06/18/19 21:55 Dose: 0 mls/hr Documented by: Heparin Sodium/Dextrose () 25,000 units in 250 mls @ 15 mls/hr IV .[id number] [facility]; Protocol Last Admin: 06/20/19 07:48 Dose: 1,200 units/hr, 12 mls/hr Documented by: Insulin Human Lispro (Humalog Kwikpen (Bkc)) 0 unit SC ACHS [facility]; Protocol Last Admin: 06/20/19 06:44 Dose: Not Given Documented by: Melatonin (Melatonin) 3 mg PO QHS PRN PRN PRN Reason: INSOMNIA Oxycodone HCl (Oxyir) 5 mg PO Q4H PRN PRN PRN Reason: Pain Score 4-5/10 Prochlorperazine Edisylate (Compazine Iv) 5 mg IV Q4H PRN PRN PRN Reason: Breakthrough Nausea/Vomiting Senna/Docusate Sodium (Senokot-S, Liv-Colace) 2 tablet PO BID PRN PRN PRN Reason: Constipation Sodium Chloride () 10 - 40 ml IV UD PRN PRN Reason: SALINE FLUSH Last Admin: 06/20/19 06:13 Dose: 10 ml Documented by: Medical Necessity - Tobacco Use Smoking Status: Former smoker Assessment/Plan All Active Problems (Last Reviewed 06/18/19 @ 13:[address] Ravinder Carter MD) Hypoxia (Acute) Mild congestive heart failure (Acute) Chest pain (Acute) Rotator cuff tear arthropathy of right shoulder (Resolved) Acute alcohol intoxication (Resolved) History of transurethral resection of prostate (Resolved 2004) H/O shoulder replacement (Resolved 2014) History of nasal surgery (Resolved ~2002) History of mandibular surgery (Resolved ~1992) History of radiofrequency ablation procedure for cardiac arrhythmia (Resolved 2011) History of angioplasty of peripheral vessel (Resolved 03/1996) Chest heaviness (Acute) Shortness of breath (Acute) 1- REGINO on CKD stage 3. REGINO is likely prerenal related to CRS SCr is better with diuresis. Ok to continue the same dose of lasix Agree with holding home lisinopril No need for [employer] Pt and his understand that there is a risk for worsening kidney function or even needing HD with IV contrast exposure during cardiac cath. I told Dr. Maria and the patient that if the cardiac cath is emergent/life saving, I am Ok with pursuing it and will monitor kidney function after the cath Please hold diuretic prior to cardiac cath. start IV NS at 100 cc/hour for 3 hour till 3 hours after the cardiac cath 2- HTN: BP is well controlled Continue holding lisinopril 3- NSTEMI: On heparin drip cardiac cath as per the cardiology service Renal team will continue to follow Please call if any question Elizabeth Interiano MD
[2019-06-20 11:30] LABS: Bedside Glucose 128 mg/dL (70-110)
--- NOTE | 2019-06-20 12:46 | PN_ITS ---
<Jakob Wyatt - Last Filed: 06/20/19 12:46> Patient Problems: Active and Suspected Problems (Last Reviewed 06/18/19 @ 13:[address] Ravinder Carter MD) Hypoxia (Acute) Mild congestive heart failure (Acute) Chest pain (Acute) Reason for Visit: Chest pain Subjective: Patient seen and examined sitting upright side of bed. Patient states overall he feels much better. He was very fatigued yesterday and he reports he feels this fatigue and weakness have improved significantly overnight. He continues to have no further chest pain, no shortness of breath, no increased lower extremity edema, no nausea, vomiting, diarrhea, lightheadedness, dizziness, palpitations. Vitals/I&O's: Vital Signs Temp Pulse Resp BP Pulse Ox 97.8 F 87 18 144/57 H 97 06/20/19 09:20 06/20/19 09:20 06/20/19 09:20 06/20/19 09:20 06/20/19 09:20 Oxygen Flow Rate (L/min) 1 Oxygen Delivery Method Room Air Weight: 246 lb 14.684 oz Body Mass Index (BMI) 39.8 Finger Stick Blood Glucose 98 Intake and Output for Last 24 Hours 06/18/19 06/19/19 06/20/19 23:59 23:59 23:59 Intake Total 560.50 / 560.50 753.25 / 993.25 782.6 / 782.6 Output Total 4100 / 4100 1950 / 2975 1725 / 1725 Balance -3539.50 / -3539.50 -1196.75 / -1981.75 -942.4 / -942.4 General: Alert, Oriented x3, Cooperative HEENT: Atraumatic, PERRLA, EOMI, Normocephalic Neck: Supple, No JVD, Negative Carotid Bruits Lungs: Clear to auscultation, Normal air movement Cardiovascular: Regular rate, No murmurs Abdomen: Bowel Sounds Present, Soft, Non Tender, Obese Extremities: No edema, Capillary Refill Less than 3 Seconds Skin: No rashes, No breakdown Musculoskeletal: No Tenderness to Palpation of Joints or Extremities Neurological: Cranial nerves II-XII grossly intact Psych/Mental Status: Normal Affect, Appropriate Microbiology Past 72 Hours 06/18/19 10:45 Blood Culture (Wb) - Anticubital Right Blood Culture - Preliminary No growth in 48 hours. 06/18/19 10:30 Blood Culture (Wb) - Anticubital Left Blood Culture - Preliminary No growth in 48 hours. Laboratory Results 06/19/19 17:21: POC Glucose 126 H 06/19/19 21:20: POC Glucose 161 H 06/20/19 05:10: Sodium 140, Potassium 4.1, Chloride 103, Carbon Dioxide 31.0, Anion Gap 6, BUN 77 H, Creatinine 2.34 H, Estim Creat Clear Calc 26.51, Est GFR (MDRD) Af Amer 36 L, Est GFR (MDRD) Non-Af 29 L, BUN/Creatinine Ratio 32.9 H, Glucose 122 H, Calcium 9.5 06/20/19 05:10: WBC 6.7, RBC 4.44 L, Hgb 14.0, Hct 42.6, MCV 95.9 H, MCH 31.5, MCHC 32.9, RDW Std Deviation 53.2 H, RDW Coeff of Aranza 15.7 H, Plt Count 177, MPV 9.2, Immature Gran % (Auto) 1.200 H, Neut % (Auto) 64.9, Lymph % (Auto) 19.5, [place] % (Auto) 10.4 H, Eos % (Auto) 3.5, Baso % (Auto) 0.5, Absolute Neuts (auto) 4.3, Absolute Lymphs (auto) 1.30, Nucleated RBC % 0 06/20/19 05:10: APTT 59.3 H 06/20/19 06:43: POC Glucose 117 H 06/20/19 11:24: POC Glucose 128 H Current Medications Acetaminophen (Tylenol) 650 mg PO Q6H PRN PRN PRN Reason: Pain Score 1-10/Temp > 100.7 F Al Hydroxide/Mg Hydroxide (Mylanta Ii) 30 ml PO Q6H PRN PRN PRN Reason: Gastric Burning Albuterol Sulfate (Ventolin Aerosols) 2.5 mg INHALATION Q2H PRN PRN PRN Reason: SOB/Wheezing Amiodarone HCl (Cordarone) 200 mg PO DAILY [facility] Last Admin: 06/20/19 09:28 Dose: 200 mg Documented by: Aspirin (Ecotrin) 81 mg PO QHS [facility] Last Admin: 06/19/19 21:21 Dose: 81 mg Documented by: Atorvastatin Calcium (Lipitor) 40 mg PO DAILY [facility] Last Admin: 06/20/19 09:28 Dose: 40 mg Documented by: Buspirone HCl (Buspar) 15 mg PO BID [facility] Last Admin: 06/20/19 09:28 Dose: 15 mg Documented by: Citalopram Hydrobromide (Celexa) 20 mg PO DAILY [facility] Last Admin: 06/20/19 09:28 Dose: 20 mg Documented by: Clopidogrel Bisulfate (Plavix) 75 mg PO DAILY [facility] Last Admin: 06/20/19 09:28 Dose: 75 mg Documented by: Dextrose (D50w Syringe) 0 gm IV X1 PRN; Protocol PRN Reason: Hypoglycemia Diltiazem HCl (Cardizem Cd) 120 mg PO DAILY [facility] Last Admin: 06/20/19 09:28 Dose: 120 mg Documented by: Furosemide (Lasix) 40 mg IV Q8 [facility] Last Admin: 06/20/19 10:33 Dose: Not Given Documented by: Glucagon () 1 mg IM .X1 PRN PRN Reason: Hypoglycemia Guaifenesin (Robitussin) 20 ml PO Q4H PRN PRN PRN Reason: COUGH Heparin Sodium (Porcine) (Heparin Na) 0 unit IV UD PRN; Protocol Heparin Sodium/Dextrose () 25,000 units in 250 mls @ 15 mls/hr IV .[id number] [facility]; Protocol Last Admin: 06/20/19 07:48 Dose: 1,200 units/hr, 12 mls/hr Documented by: Insulin Human Lispro (Humalog Kwikpen (Bkc)) 0 unit SC ACHS [facility]; Protocol Last Admin: 06/20/19 11:48 Dose: Not Given Documented by: Melatonin (Melatonin) 3 mg PO QHS PRN PRN PRN Reason: INSOMNIA Oxycodone HCl (Oxyir) 5 mg PO Q4H PRN PRN PRN Reason: Pain Score 4-5/10 Prochlorperazine Edisylate (Compazine Iv) 5 mg IV Q4H PRN PRN PRN Reason: Breakthrough Nausea/Vomiting Senna/Docusate Sodium (Senokot-S, Liv-Colace) 2 tablet PO BID PRN PRN PRN Reason: Constipation Sodium Chloride () 10 - 40 ml IV UD PRN PRN Reason: SALINE FLUSH Last Admin: 06/20/19 06:13 Dose: 10 ml Documented by: STROKE Vital Signs/Narrative: Vital Signs Temp Pulse Resp BP Pulse Ox 06/20/19 09:20 97.8 F 87 18 144/57 H 97 Medical Necessity - Tobacco Use Smoking Status: Former smoker Assessment/Plan All Active Problems (Last Reviewed 06/18/19 @ 13:[address] Ravinder Carter MD) Hypoxia (Acute) Mild congestive heart failure (Acute) Chest pain (Acute) Rotator cuff tear arthropathy of right shoulder (Resolved) Acute alcohol intoxication (Resolved) History of transurethral resection of prostate (Resolved 2004) H/O shoulder replacement (Resolved 2014) History of nasal surgery (Resolved ~2002) History of mandibular surgery (Resolved ~1992) History of radiofrequency ablation procedure for cardiac arrhythmia (Resolved 2011) History of angioplasty of peripheral vessel (Resolved 03/1996) Chest heaviness (Acute) Shortness of breath (Acute) 1. NSTEMI - hx CAD, prior CABG/stents. Overall patient is feeling much better with no further chest pain, shortness of breath, and fatigue is improving. Continue aspirin, statin, Plavix. Last troponin 12.5. Nephrology following. Patient will likely undergo a heart cath in the morning, plan is for IV fluids 3 hours before and after, close monitoring of renal function. -VQ scan negative, duplex ultrasound lower extremities negative. -Echocardiogram shows normal LV size and systolic function, EF 65%, PASP 55 mmHg-moderate pulmonary hypertension, stage III diastolic dysfunction, no significant change compared to prior. 2. REGINO on CKD stage III-echo nephrology following. continues to improve. Hold Lasix prior to heart cath. 2. P afib- SR. Rate stable. Continue amiodarone, Cardizem 3. HTN-currently stable 4. HLD-statin 5. Chronic diastolic CHF - no acute exacerbation. Echo results as above. 6. PAD-prior lower extremity stenting. 7. JD - cpap qhs 8. BPH prior TURP 9. Depression/anxiety-Celexa BuSpar, melatonin DVT prophylaxis: Heparin Discharge planning: Heart cath in the morning. This patient was seen by Jakob Wyatt PA-C under the supervision of Doctor Raul. <Ravinder Carter - Last Filed: 06/20/19 15:50> Vitals/I&O's: Vital Signs Temp Pulse Resp BP Pulse Ox 98.3 F 71 16 144/53 H 97 06/20/19 15:20 06/20/19 15:20 06/20/19 15:20 06/20/19 15:20 06/20/19 15:20 Oxygen Flow Rate (L/min) 1 Oxygen Delivery Method Room Air Weight: 112 kg Body Mass Index (BMI) 39.8 Finger Stick Blood Glucose 98 Intake and Output for Last 24 Hours 06/18/19 06/19/19 06/20/19 23:59 23:59 23:59 Intake Total 560.50 / 560.50 753.25 / 993.25 782.6 / 782.6 Output Total 4100 / 4100 1950 / 2975 1725 / 1725 Balance -3539.50 / -3539.50 -1196.75 / -1981.75 -942.4 / -942.4 Microbiology Past 72 Hours 06/18/19 10:45 Blood Culture (Wb) - Anticubital Right Blood Culture - Preliminary No growth in 48 hours. 06/18/19 10:30 Blood Culture (Wb) - Anticubital Left Blood Culture - Preliminary No growth in 48 hours. Laboratory Results 06/19/19 17:21: POC Glucose 126 H 06/19/19 21:20: POC Glucose 161 H 06/20/19 05:10: Sodium 140, Potassium 4.1, Chloride 103, Carbon Dioxide 31.0, Anion Gap 6, BUN 77 H, Creatinine 2.34 H, Estim Creat Clear Calc 26.51, Est GFR (MDRD) Af Amer 36 L, Est GFR (MDRD) Non-Af 29 L, BUN/Creatinine Ratio 32.9 H, Glucose 122 H, Calcium 9.5 06/20/19 05:10: WBC 6.7, RBC 4.44 L, Hgb 14.0, Hct 42.6, MCV 95.9 H, MCH 31.5, MCHC 32.9, RDW Std Deviation 53.2 H, RDW Coeff of Aranza 15.7 H, Plt Count 177, MPV 9.2, Immature Gran % (Auto) 1.200 H, Neut % (Auto) 64.9, Lymph % (Auto) 19.5, [place] % (Auto) 10.4 H, Eos % (Auto) 3.5, Baso % (Auto) 0.5, Absolute Neuts (auto) 4.3, Absolute Lymphs (auto) 1.30, Nucleated RBC % 0 06/20/19 05:10: APTT 59.3 H 06/20/19 06:43: POC Glucose 117 H 06/20/19 11:24: POC Glucose 128 H Current Medications Acetaminophen (Tylenol) 650 mg PO Q6H PRN PRN PRN Reason: Pain Score 1-10/Temp > 100.7 F Al Hydroxide/Mg Hydroxide (Mylanta Ii) 30 ml PO Q6H PRN PRN PRN Reason: Gastric Burning Albuterol Sulfate (Ventolin Aerosols) 2.5 mg INHALATION Q2H PRN PRN PRN Reason: SOB/Wheezing Amiodarone HCl (Cordarone) 200 mg PO DAILY [facility] Last Admin: 06/20/19 09:28 Dose: 200 mg Documented by: Aspirin (Ecotrin) 81 mg PO QHS [facility] Last Admin: 06/19/19 21:21 Dose: 81 mg Documented by: Atorvastatin Calcium (Lipitor) 40 mg PO DAILY [facility] Last Admin: 06/20/19 09:28 Dose: 40 mg Documented by: Buspirone HCl (Buspar) 15 mg PO BID [facility] Last Admin: 06/20/19 09:28 Dose: 15 mg Documented by: Citalopram Hydrobromide (Celexa) 20 mg PO DAILY [facility] Last Admin: 06/20/19 09:28 Dose: 20 mg Documented by: Clopidogrel Bisulfate (Plavix) 75 mg PO DAILY [facility] Last Admin: 06/20/19 09:28 Dose: 75 mg Documented by: Dextrose (D50w Syringe) 0 gm IV X1 PRN; Protocol PRN Reason: Hypoglycemia Diltiazem HCl (Cardizem Cd) 120 mg PO DAILY [facility] Last Admin: 06/20/19 09:28 Dose: 120 mg Documented by: Furosemide (Lasix) 40 mg IV Q8 [facility] Last Admin: 06/20/19 10:33 Dose: Not Given Documented by: Glucagon () 1 mg IM .X1 PRN PRN Reason: Hypoglycemia Guaifenesin (Robitussin) 20 ml PO Q4H PRN PRN PRN Reason: COUGH Heparin Sodium (Porcine) (Heparin Na) 0 unit IV UD PRN; Protocol Heparin Sodium/Dextrose () 25,000 units in 250 mls @ 15 mls/hr IV .[id number] [facility]; Protocol Last Admin: 06/20/19 07:48 Dose: 1,200 units/hr, 12 mls/hr Documented by: Insulin Human Lispro (Humalog Kwikpen (Bkc)) 0 unit SC ACHS [facility]; Protocol Last Admin: 06/20/19 11:48 Dose: Not Given Documented by: Melatonin (Melatonin) 3 mg PO QHS PRN PRN PRN Reason: INSOMNIA Oxycodone HCl (Oxyir) 5 mg PO Q4H PRN PRN PRN Reason: Pain Score 4-5/10 Prochlorperazine Edisylate (Compazine Iv) 5 mg IV Q4H PRN PRN PRN Reason: Breakthrough Nausea/Vomiting Senna/Docusate Sodium (Senokot-S, Liv-Colace) 2 tablet PO BID PRN PRN PRN Reason: Constipation Sodium Chloride () 10 - 40 ml IV UD PRN PRN Reason: SALINE FLUSH Last Admin: 06/20/19 06:13 Dose: 10 ml Documented by: STROKE Vital Signs/Narrative: Vital Signs Temp Pulse Resp BP Pulse Ox 06/20/19 15:20 98.3 F 71 16 144/53 H 97 06/20/19 15:00 76 Assessment/Plan This patient was seen in conjunction with Jakob Wyatt PA-C . I have independently interviewed and examined the patient and reviewed pertinent historical, laboratory, and other data. Please refer to Jakob Wyatt PA-C note for details of this patient's presentation, findings, and recommendations. I have reviewed Jakob Wyatt PA-C note and concur with documented findings. In brief, Patient is a 68-year-old gentleman presenting with shortness of breath has discomfort. Admitted to a monitored bed subsequent evaluation came back consistent with acute non-STEMI as well as congestive heart failure 06/20/2019: Patient seen currently denies chest pain or shortness of breath. Patient is scheduled to undergo left heart catheterization on 06/21/2019. Plan is to rehydrate patient to avoid worsening of his kidney function from contrast- induced nephropathy. Patient has been seen in consultation by nephrology Physical Examination: GENERAL: cooperative HEENT: Atraumatic; EYES; Anicteric, Normal Conjunctiva NECK; supple, normal thyroid, RESPIRATORY: Diminished to auscultation CARDIOVASCULAR: Regular S1 S2, GI: soft, normoactive bowel sounds, : No Renal angle tenderness; EXTREMITIES: No edema, no clubbing, MUSCULOSKELETAL: no muscle waisting NEURO: Awake; no lateralizing signs. SKIN: No Rash PSYCH; Flat affect Assessment: 1. Acute dyspnea secondary to acute non-STEMI and congestive heart failure 2. Elevated d-dimer?PE and DVT ruled out 3. Acute kidney injury ?Superimposed on baseline chronic kidney disease III. 3. Coronary artery disease patient - - previous CABG (CABG x 3 BETHEA-LAD, SVG- LCX, SVG-D1 03/20/1997) subsequent PCI with intervention (PCI-AGAPITO-SVG to LCx w/ 3.5 x 12 mm Synergy 09/28/18) 4. Peripheral arterial disease 5. Dyslipidemia 6. Paroxysmal A. fib r 7. Obstructive sleep apnea 8. Hypertension 9. Obesity with BMI of 40 10. History of rotator cuff tear arthropathy of right shoulder 11. BPH 12. DVT prophylaxis ?Patient on systemic anticoagulation with heparin Recommendations: 1. I have discussed the results of my overview and impressions with the patient 2. Options for management were reviewed Inpatient E&M: 40577 Subs Hosp L2
[2019-06-20 16:11] LABS: Bedside Glucose 123 mg/dL (70-110)
--- NOTE | 2019-06-20 16:49 | PN.CARD_ITS ---
Subjectve: Patient seen and evaluated. Appears to be doing much better today. Objective: Vital Signs Temp Pulse Resp BP Pulse Ox 98.3 F 71 16 144/53 H 97 06/20/19 15:20 06/20/19 15:20 06/20/19 15:20 06/20/19 15:20 06/20/19 15:20 Oxygen Flow Rate (L/min) 1 Oxygen Delivery Method Room Air Weight: 246 lb 14.684 oz Body Mass Index (BMI) 39.8 Finger Stick Blood Glucose 98 Intake and Output for Last 24 Hours 06/18/19 06/19/19 06/20/19 23:59 23:59 23:59 Intake Total 560.50 / 560.50 753.25 / 993.25 782.6 / 782.6 Output Total 4100 / 4100 1950 / 2975 1725 / 1725 Balance -3539.50 / -3539.50 -1196.75 / -1981.75 -942.4 / -942.4 General: Awake, Alert, Oriented x 3 HEENT: PERRL, EOMI, Sclera Non Icteric Neck: Supple, Good ROM, No Lymph Node Enlargement Lungs: Clear to auscultation Cardiovascular: Regular Rhythm, Normal S1, Normal S2, No Murmurs, No Rubs, No Gallops Vascular: No Carotid Bruits, Normal Femoral Pulses, Normal Radial Pulses, Normal Dorsalis Pedal Pulse, Normal Posterior Tibial Pulses Abdomen: Bowel Sounds Present, Soft, Non Tender, No HSM, No Organomegaly Extremities: No Cyanosis, No Clubbing, No edema Musculoskeletal: No Erythema Skin: No Rashes Lymphatic: No Lymph Node Enlargement Neurological: No Focal Motor or Sensory Deficit Psych/Mental Status: Appropriate 06/20/19 05:10: Sodium 140, Potassium 4.1, Chloride 103, Carbon Dioxide 31.0, Anion Gap 6, BUN 77 H, Creatinine 2.34 H, Est GFR (MDRD) Af Amer 36 L, Est GFR (MDRD) Non-Af 29 L, BUN/Creatinine Ratio 32.9 H, Glucose 122 H, Calcium 9.5 06/20/19 05:10: WBC 6.7, RBC 4.44 L, Hgb 14.0, Hct 42.6, MCV 95.9 H, MCH 31.5, MCHC 32.9, Plt Count 177, MPV 9.2, Immature Gran % (Auto) 1.200 H, Neut % (Auto) 64.9, Lymph % (Auto) 19.5, [place] % (Auto) 10.4 H, Eos % (Auto) 3.5, Baso % (Auto) 0.5, Absolute Neuts (auto) 4.3, Nucleated RBC % 0 06/20/19 05:10: APTT 59.3 H Rhythm: EKG: ECHO: Stress Test: Cardiac Cath: PCI: CT Surgery: Holter monitor: EPS: PPM: CXR: Chest CT Scan: Medical Necessity - Tobacco Use Smoking Status: Former smoker Assessment/Plan 1. Non-ST elevation myocardial infarction with atherosclerosis of coronary artery bypass graft of [place] heart without angina pectoris I25.810 PCI-AGAPITO-SVG to LCx w/ 3.5 x 12 mm Synergy 09/28/18 CABG x 3 BETHEA-LAD, SVG-LCX, SVG-D1 03/20/1997 He does have a history of atherosclerotic cardiovascular disease. As noted above he is bypass surgery with a BETHEA to the LAD saphenous vein graft to circumflex artery and saphenous vein graft to the diagonal branch. * He is status post angioplasty and stenting of the saphenous vein graft to the circumflex artery. Ideally he needs a repeat cardiac catheterization. * Discussed with renal service. We will hydrate tonight pending cardiac catheterization in a.m. Will attempt to use minimal contrast agent. 2. Paroxysmal atrial fibrillation I48.0 He does have a history of paroxysmal atrial fibrillation. He has had recent episodes of the above despite his pneumonia. This occurred when he was hospitalized. He has not had any since. His last echocardiogram demonstrated ejection fraction of 65% with no wall motion abnormalities present. He does have evidence of pulmonary artery hypertension. 3. Essential (primary) hypertension I10 Plan He does have a history of hypertension. His blood pressure appears to be better controlled at this time with the increase in the lisinopril. We will continue to follow the above. 4. Pure hypercholesterolemia E78.5 Plan He does have a history of hyperlipidemia and will continue with aggressive risk factor modification. 5. Chronic diastolic (congestive) heart failure I50.32 Plan He does have evidence of chronic diastolic heart failure he is tolerating the Lasix does quite well. No other changes will be made. Unfortunately his renal function appears to be significantly worse with an elevated BUN as well. We will continue to monitor the above. We may need nephrology input here. 6. History of coronary artery stent placement Z95.5 PCI-AGAPITO-SVG to LCx w/ 3.5 x 12 mm Synergy 09/28/18 He does have evidence of angioplasty and stenting of the saphenous vein graft to circumflex artery. He does have EKG changes which suggestive of ischemia to this distribution. He ideally would need to have a repeat cardiac catheterization. We may need to cautiously hydrate him before we perform the above. Thank you for allowing me to participate in the care of your patient. Please don't hesitate to call if any issues arise
[2019-06-20] MEDS: 0.9% Normal Saline 1,000 ML 75 ML IV (18:19)
[2019-06-20] MEDS: Aspirin E.C. 81 MG Tablet PO (23:23)
[2019-06-20 23:36] LABS: Bedside Glucose 95 mg/dL (70-110)
[2019-06-21] VITALS (17 sets, daily range): BP systolic 116–167; BP diastolic 45–80; PULSE 65–80; RESP 16–20; TEMP 36.4–36.7; O2SAT 92–98
[2019-06-21 06:02] LABS: Absolute Lymphocyte Count 1.14 X10^3/uL (0.83-4.51); Basophil# 0.06 X10^3/uL; Eosinophils% 3.2 % (0-5); Hematocrit 43.8 % (40-54); Hemoglobin 14.5 g/dL (13.0-16.5); Lymphocyte # 1.14 X10^3/ul (4.0); Lymphocyte % 18.5 % (19-41); Mean Corp Hgb Conc 33.1 g/dL (32-36); Mean Corpuscular Hgb 32.2 pg (27.0-32.0); Mean Corpuscular Volume 97.1 fL (80-94); Mean Platelet Vol. 9.6 fl (6.2-12.0); Monocyte# 0.69 X10^3/uL; Monocyte% 11.2 % (0-10); NRBC Flagged by Analyzer 0 % (0-5); Neutrophil # 4.01 X10^3/uL (2.7-7.7); Neutrophil % 65.1 % (47-70); Platelet Count 186 K/mm3 (150-450); RBC Distribution Width CV 15.1 % (11.6-14.6); Red Blood Count 4.51 M/mm3 (4.6-6.2); White Blood Count 6.2 K/mm3 (4.4-11.0)
[2019-06-21 06:07] LABS: Partial Thromboplast Time 28.5 Seconds (24.1-36.2)
[2019-06-21] MEDS: Amiodarone 200 MG Tablet PO (06:12)
[2019-06-21] MEDS: Atorvastatin Calcium 40 MG Tablet PO (06:12)
[2019-06-21] MEDS: dilTIAZem CD 120 MG Capsule PO (06:12)
[2019-06-21] MEDS: Clopidogrel Bisulfate 75 MG Tablet PO (06:12)
[2019-06-21] MEDS: 0.9% Normal Saline 1,000 ML 15 ML IV (06:14)
[2019-06-21 06:35] LABS: Anion Gap 8 (5-15); BUN 66 mg/dL (7-18); Chloride 101 mmol/L (98-107); Creatinine, Serum 2.13 mg/dL (0.70-1.30); EST Glomerular Filtration Rate 33 mL/min (>60); Est Glom Filt Rate - Afr Amer 40 mL/min (>60); Estimated Creatinine Clearance 29.12 ml/min; Glucose 119 mg/dL (74-106); Sodium Level 137 mmol/L (136-145)
[2019-06-21 06:51] LABS: Bedside Glucose 108 mg/dL (70-110)
--- NOTE | 2019-06-21 07:30 | NURSING ---
Report called to TORITO Erwin in laboratory monitor. Pt. ready to go for heart cath. VSS
--- NOTE | 2019-06-21 08:27 | PN.CARD_ITS ---
Subjectve: Patient seen and evaluated. Objective: Vital Signs Temp Pulse Resp BP Pulse Ox 97.9 F 71 18 167/80 H 96 06/21/19 06:20 06/21/19 07:01 06/21/19 06:20 06/21/19 06:20 06/21/19 06:20 Oxygen Flow Rate (L/min) 1 Oxygen Delivery Method Room Air Weight: 246 lb 14.684 oz Body Mass Index (BMI) 39.8 Finger Stick Blood Glucose 98 Intake and Output for Last 24 Hours 06/19/19 06/20/19 06/21/19 23:59 23:59 23:59 Intake Total 753.25 / 993.25 1451.2 / 1451.2 986.25 / 986.25 Output Total 1950 / 2975 2650 / 2650 550 / 550 Balance -1196.75 / -1981.75 -1198.8 / -1198.8 436.25 / 436.25 General: Awake, Alert, Oriented x 3 HEENT: PERRL, EOMI, Sclera Non Icteric Neck: Supple, Good ROM, No Lymph Node Enlargement Lungs: Clear to auscultation Cardiovascular: Regular Rhythm, Normal S1, Normal S2, No Murmurs, No Rubs, No Gallops 06/21/19 05:25: WBC 6.2, RBC 4.51 L, Hgb 14.5, Hct 43.8, MCV 97.1 H, MCH 32.2 H, MCHC 33.1, Plt Count 186, MPV 9.6, Immature Gran % (Auto) 1.000 H, Neut % (Auto) 65.1, Lymph % (Auto) 18.5 L, [place] % (Auto) 11.2 H, Eos % (Auto) 3.2, Baso % (Auto) 1.0, Absolute Neuts (auto) 4.0, Nucleated RBC % 0 06/21/19 05:25: Sodium 137, Potassium 4.0, Chloride 101, Carbon Dioxide 28.0, Anion Gap 8, BUN 66 H, Creatinine 2.13 H, Est GFR (MDRD) Af Amer 40 L, Est GFR (MDRD) Non-Af 33 L, BUN/Creatinine Ratio 31.0 H, Glucose 119 H, Calcium 9.0 06/21/19 05:25: APTT 28.5 Rhythm: EKG: ECHO: Stress Test: Cardiac Cath: PCI: CT Surgery: Holter monitor: EPS: PPM: CXR: Chest CT Scan: Medical Necessity - Tobacco Use Smoking Status: Former smoker Assessment/Plan 1. Non-ST elevation myocardial infarction with atherosclerosis of coronary artery bypass graft of [place] heart without angina pectoris I25.810 PCI-AGAPITO-SVG to LCx w/ 3.5 x 12 mm Synergy 09/28/18 CABG x 3 BETHEA-LAD, SVG-LCX, SVG-D1 03/20/1997 He does have a history of atherosclerotic cardiovascular disease. As noted above he is bypass surgery with a BETHEA to the LAD saphenous vein graft to circumflex artery and saphenous vein graft to the diagonal branch. * He is status post angioplasty and stenting of the saphenous vein graft to the circumflex artery. * Cardiac catheterization demonstrated patent left internal mammary artery to the left anterior descending artery, right coronary artery graft has mild disease, the saphenous vein graft to circumflex artery has an ostial 90% stenosis. Angioplasty will be recommended to the above. 2. Paroxysmal atrial fibrillation I48.0 He does have a history of paroxysmal atrial fibrillation. He has had recent episodes of the above despite his pneumonia. This occurred when he was hospitalized. He has not had any since. His last echocardiogram demonstrated ejection fraction of 65% with no wall motion abnormalities present. He does have evidence of pulmonary artery hypertension. 3. Essential (primary) hypertension I10 Plan He does have a history of hypertension. His blood pressure appears to be better controlled at this time with the increase in the lisinopril. We will continue to follow the above. 4. Pure hypercholesterolemia E78.5 Plan He does have a history of hyperlipidemia and will continue with aggressive risk factor modification. 5. Chronic diastolic (congestive) heart failure I50.32 Plan He does have evidence of chronic diastolic heart failure he is tolerating the Lasix does quite well. No other changes will be made. Unfortunately his renal function appears to be significantly worse with an elevated BUN as well. We will continue to monitor the above. We may need nephrology input here. 6. History of coronary artery stent placement Z95.5 PCI-AGAPITO-SVG to LCx w/ 3.5 x 12 mm Synergy 09/28/18 He does have evidence of angioplasty and stenting of the saphenous vein graft to circumflex artery. He does have EKG changes which suggestive of ischemia to this distribution. Cardiac catheterization today demonstrated restenosis of the above and he will have angioplasty of the above. Rehydration will continue. Thank you for allowing me to participate in the care of your patient. Please don't hesitate to call if any issues arise
--- NOTE | 2019-06-21 08:42 | CL.D_ITS ---
Patient Name: LETHA DEVI Study Date: 06/21/2019 Performing: Babatunde Maria MD Ht: 66.14 inches 168 cm : 1950 Wt: 246.92 lbs 112 kg Age: 68 Gender: male BSA: 2.19 PROCEDURE(S) PERFORMED [id number] CLINICAL PROFILE AND INDICATIONS Indications: Suspected CAD Heart Failure: NYHA Class: 3, Newly Diagnosed: No, Heart Failure Type: Diastolic Stress/Imaging Stress/Image Study Performed: No CONCLUSIONS High-grade stenosis noted in the saphenous vein graft to the obtuse marginal vessel and a previously stented vessel. The left internal mammary artery to the left anterior descending artery was patent. RECOMMENDATIONS Referred for immediate PCI DESCRIPTION OF PROCEDURE The patient arrived to the procedure lab. The risks and benefits of the procedure as well as a full d escription of our services here and current unavailability of surgical backup were fully explained to the patient and/or their significant other prior to the catheterization. The Timeout was completed, verifying the correct patient and procedure. The patient's procedural site was prepped and draped in the usual fashion. Local anesthetic was given subcutaneously to left radial region with Lidocaine 2%. Using a modified Seldinger technique, arterial access was obtained via the left radial artery, a 6Fr sheath was inserted. Left internal mammary artery graft to the LAD selective angiography was perfor med in multiple views using a 5 Fr. IM catheter. Right Coronary Artery selective angiography was then performed in multiple views using a 5 Fr. JR 4 catheter. Saphenous Vein graft to the Circumflex alejandra ctive angiography was performed in multiple views using a 5 Fr. JR 4 catheter. Saphenous Vein graft to the DIAG 1 selective angiography was performed in multiple views using a 5 Fr. JR 4 cat heter-stumped. CORONARY ANGIOGRAPHY DOMINANCE: Right Dominant LEFT HEART ASSESSMENT Left Ventricular Ejection Fraction: by Echo 65 % Normal Left Ventricular systolic function LEFT ANTERIOR DESCENDING ARTERY: RIGHT CORONARY ARTERY: Mild luminal irregularities less than 30% GRAFTS: Saphenous Vein graft to the 1st Diagonal is totally occluded Saphenous Vein graft to the 1st OM previously placed stent has an instent restenosis of 90 % Saphenous Vein graft to the 1st OM patent distal vessel BETHEA graft to the Mid LAD is patent COMPLICATIONS PROCEDURE MEDICATIONS Versed 1 mg IV Fentanyl 50 mcg IV Oxygen: 2 L/min via nasal cannula Heparin 6000 unit(s) IV 06/21/2019 08:32:42 SUMMARY OF HEMODYNAMIC DATA Time AIR REST ECG 07:46:58 AO 151/62 (96) SA 08:05:25 08:41:37 Signed By Babatunde Maria MD On 06/21/2019 08:41:56 Babatunde Maria MD
[2019-06-21] MEDS: 0.9% Normal Saline 1,000 ML 60 ML IV (09:30)
[2019-06-21] MEDS: busPIRone 15 MG TABLET PO ×2 (09:36→23:17)
[2019-06-21] MEDS: Citalopram 20 MG Tablet PO (09:36)
--- NOTE | 2019-06-21 10:45 | CRPHASE1 ---
Patient Communication Former Patient:: Phase I, Phase II PHII Cardiac Rehab Discussed with Patient:: Yes - previous CR pt 2019 @ [facility] Guide to Cardiac Rehab Given to Patient:: Yes - previous CR pt 2019 @ [facility] Cardiac Rehab Facility Choice List Given to Patient:: Yes - previous CR pt 2019 @[facility] Choice Program [facility] CR PHII:: Communication Given to CR, Refer to [facility] Caramel Cutter Machine:: Esther Arevalo Refer Phase II Cardiac Rehab:: Yes Sessions:: 36 sessions - 3 days/wk, 12 weeks Phase I Charge:: Level I - Education Risk Factors/Lifestyle Family History: Family History (Last Reviewed 06/18/19 @ 13:[address] Ravinder Carter MD) Father Myocardial infarction Heart disease Mother CAD (coronary artery disease) Brother CAD (coronary artery disease) Diabetes Hx of CABG Sister Hypertension Pulmonary embolism Laboratory Values: Cardiac Rehab Phase I Labs Hemoglobin A1c 6.2 % (4.2-6.3) 06/18/19 14:39 Cardiac Rehabilitation Info Cardiac Rehabilitation Program Information: Cardiac Rehabilitation is important for patients like you who are recovering from a heart problem. Cardiac rehabilitation programs are recognized as integral to the continued care of the patient with coronary heart disease. The cardiac rehabilitation program is designed to optimize a patient's physical, psychological, and social functioning. Health day care assistant work in cardiac rehabilitation programs and assist you with getting the treatments you need to get stronger and healthier - like exercise, healthy eating habits, and medications. Cardiac rehabilitation has been show to help people with heart problems live longer and have better life enjoyment than people who do not go to cardiac rehabilitation. Please contact the Cardiac Rehabilitation Program at [facility] at in two weeks if you have not heard from them.
--- NOTE | 2019-06-21 10:52 | CRPH1.INSTRU ---
General Education CAD and cardiac anatomy and function:: Patient communicates acknowledgment - previous CR pt 2019 @ [facility]
--- NOTE | 2019-06-21 10:59 | PCM.PN.REN ---
Patient Problems: Active and Suspected Problems (Last Reviewed 06/18/19 @ 13:[address] Ravinder Carter MD) Hypoxia (Acute) Mild congestive heart failure (Acute) Chest pain (Acute) Subjective: Pt had cardiac cath today No CP No worsening breathing currently off lasix and on IVF at 75 cc/hour - Physical Exam Vitals/I&O's: Vital Signs Temp Pulse Resp BP Pulse Ox 97.6 F L 72 16 133/58 H 92 06/21/19 09:25 06/21/19 10:25 06/21/19 10:25 06/21/19 10:25 06/21/19 10:25 Oxygen Flow Rate (L/min) 1 Oxygen Delivery Method Room Air Weight: 112 kg Body Mass Index (BMI) 39.8 Finger Stick Blood Glucose 98 Intake and Output for Last 24 Hours 06/19/19 06/20/19 06/21/19 23:59 23:59 23:59 Intake Total 753.25 / 993.25 1451.2 / 1451.2 1035.75 / 1035.75 Output Total 1950 / 2975 2650 / 2650 550 / 550 Balance -1196.75 / -1981.75 -1198.8 / -1198.8 485.75 / 485.75 General: Alert, Oriented x3 HEENT: Atraumatic Oral: Moist Mucosa Neck: Supple, No JVD Lungs: Clear to auscultation, Normal air movement, No rhonchi, No wheeze Cardiovascular: Regular rate, Regular Rhythm, Normal S1 Abdomen: Bowel Sounds Present, Soft, Non Tender, Non-Distended Extremities: No clubbing, No cyanosis, No edema Skin: No rashes Musculoskeletal: No Tenderness to Palpation of Joints or Extremities Lymphatic: No Cervical, Supraclavicular, or Inguinal Adenopathy Neurological: Cranial nerves II-XII grossly intact, Neuro grossly intact Psych/Mental Status: Normal Affect Microbiology Past 72 Hours 06/18/19 10:45 Blood Culture (Wb) - Anticubital Right Blood Culture - Preliminary No growth in 48 hours. 06/18/19 10:30 Blood Culture (Wb) - Anticubital Left Blood Culture - Preliminary No growth in 48 hours. Laboratory Results 06/20/19 11:24: POC Glucose 128 H 06/20/19 16:06: POC Glucose 123 H 06/20/19 23:25: POC Glucose 95 06/21/19 05:25: WBC 6.2, RBC 4.51 L, Hgb 14.5, Hct 43.8, MCV 97.1 H, MCH 32.2 H, MCHC 33.1, RDW Std Deviation 52.0 H, RDW Coeff of Aranza 15.1 H, Plt Count 186, MPV 9.6, Immature Gran % (Auto) 1.000 H, Neut % (Auto) 65.1, Lymph % (Auto) 18.5 L, Elbert % (Auto) 11.2 H, Eos % (Auto) 3.2, Baso % (Auto) 1.0, Absolute Neuts (auto) 4.0, Absolute Lymphs (auto) 1.14, Nucleated RBC % 0 06/21/19 05:25: Sodium 137, Potassium 4.0, Chloride 101, Carbon Dioxide 28.0, Anion Gap 8, BUN 66 H, Creatinine 2.13 H, Estim Creat Clear Calc 29.12, Est GFR (MDRD) Af Amer 40 L, Est GFR (MDRD) Non-Af 33 L, BUN/Creatinine Ratio 31.0 H, Glucose 119 H, Calcium 9.0 06/21/19 05:25: APTT 28.5 06/21/19 06:22: POC Glucose 108 Current Medications Acetaminophen (Tylenol) 650 mg PO Q6H PRN PRN PRN Reason: Pain Score 1-10/Temp > 100.7 F Al Hydroxide/Mg Hydroxide (Mylanta Ii) 30 ml PO Q6H PRN PRN PRN Reason: Gastric Burning Albuterol Sulfate (Ventolin Aerosols) 2.5 mg INHALATION Q2H PRN PRN PRN Reason: SOB/Wheezing Amiodarone HCl (Cordarone) 200 mg PO DAILY [facility] Last Admin: 06/21/19 06:12 Dose: 200 mg Documented by: Aspirin (Ecotrin) 81 mg PO QHS [facility] Last Admin: 06/20/19 23:23 Dose: 81 mg Documented by: Atorvastatin Calcium (Lipitor) 40 mg PO DAILY [facility] Last Admin: 06/21/19 06:12 Dose: 40 mg Documented by: Atropine Sulfate () 0.5 mg IV UD PRN PRN Reason: HR <50 bpm Buspirone HCl (Buspar) 15 mg PO BID [facility] Last Admin: 06/21/19 09:36 Dose: 15 mg Documented by: Citalopram Hydrobromide (Celexa) 20 mg PO DAILY [facility] Last Admin: 06/21/19 09:36 Dose: 20 mg Documented by: Clopidogrel Bisulfate (Plavix) 75 mg PO DAILY [facility] Last Admin: 06/21/19 06:12 Dose: 75 mg Documented by: Dextrose (D50w Syringe) 0 gm IV X1 PRN; Protocol PRN Reason: Hypoglycemia Diltiazem HCl (Cardizem Cd) 120 mg PO DAILY [facility] Last Admin: 06/21/19 06:12 Dose: 120 mg Documented by: Furosemide (Lasix) 40 mg IV Q8 [facility] Last Admin: 06/21/19 06:08 Dose: Not Given Documented by: Glucagon () 1 mg IM .X1 PRN PRN Reason: Hypoglycemia Guaifenesin (Robitussin) 20 ml PO Q4H PRN PRN PRN Reason: COUGH Heparin Sodium (Porcine) (Heparin Na) 0 unit IV UD PRN; Protocol Sodium Chloride () 1,000 mls @ 0 mls/hr IV .Q0M [facility] Last Infusion: 06/21/19 09:32 Dose: Infused Documented by: Sodium Chloride () 1,000 mls @ 60 mls/hr IV .[id number] [facility] Last Admin: 06/21/19 09:30 Dose: 60 mls/hr Documented by: Insulin Human Lispro (Humalog Kwikpen (Bkc)) 0 unit SC ACHS [facility]; Protocol Last Admin: 06/21/19 06:37 Dose: Not Given Documented by: Labetalol HCl (Trandate) 5 mg IV X1 PRN PRN Reason: SBP > 160 when pulling sheath Stop: 06/23/19 09:52 Melatonin (Melatonin) 3 mg PO QHS PRN PRN PRN Reason: INSOMNIA Oxycodone HCl (Oxyir) 5 mg PO Q4H PRN PRN PRN Reason: Pain Score 4-5/10 Prochlorperazine Edisylate (Compazine Iv) 5 mg IV Q4H PRN PRN PRN Reason: Breakthrough Nausea/Vomiting Senna/Docusate Sodium (Senokot-S, Lvi-Colace) 2 tablet PO BID PRN PRN PRN Reason: Constipation Sodium Chloride () 10 - 40 ml IV UD PRN PRN Reason: SALINE FLUSH Last Admin: 06/20/19 23:22 Dose: 20 ml Documented by: Sodium Chloride () 500 ml IV BOLUS PRN PRN Reason: VASO-VAGAL PROTOCOL Medical Necessity - Tobacco Use Smoking Status: Former smoker Assessment/Plan All Active Problems (Last Reviewed 06/18/19 @ 13:[address] Ravinder Carter MD) Hypoxia (Acute) Mild congestive heart failure (Acute) Chest pain (Acute) Rotator cuff tear arthropathy of right shoulder (Resolved) Acute alcohol intoxication (Resolved) History of transurethral resection of prostate (Resolved 2004) H/O shoulder replacement (Resolved 2014) History of nasal surgery (Resolved ~2002) History of mandibular surgery (Resolved ~1992) History of radiofrequency ablation procedure for cardiac arrhythmia (Resolved 2011) History of angioplasty of peripheral vessel (Resolved 03/1996) Chest heaviness (Acute) Shortness of breath (Acute) 1- REGINO on CKD stage 3. 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
[2019-06-21 12:05] LABS: Bedside Glucose 139 mg/dL (70-110)
--- NOTE | 2019-06-21 15:06 | PN_ITS ---
<Alice García - Last Filed: 06/21/19 15:52> Patient Problems: Active and Suspected Problems (Last Reviewed 06/18/19 @ 13:[address] Ravinder Carter MD) Hypoxia (Acute) Mild congestive heart failure (Acute) Chest pain (Acute) Subjective: Patient seen and examined. Underwent cardiac catheterization with PCI. Denies chest pain, shortness of breath. Denies current complaints. Asking when he will be able to go home. - Physical Exam Vitals/I&O's: Vital Signs Temp Pulse Resp BP Pulse Ox 97.8 F 78 16 139/60 H 95 06/21/19 12:00 06/21/19 12:00 06/21/19 12:00 06/21/19 12:00 06/21/19 12:00 Oxygen Flow Rate (L/min) 1 Oxygen Delivery Method Room Air Weight: 246 lb 14.684 oz Body Mass Index (BMI) 39.8 Finger Stick Blood Glucose 98 Intake and Output for Last 24 Hours 06/19/19 06/20/19 06/21/19 23:59 23:59 23:59 Intake Total 753.25 / 993.25 1451.2 / 1451.2 1555.75 / 1555.75 Output Total 1950 / 2975 2650 / 2650 1250 / 1250 Balance -1196.75 / -1981.75 -1198.8 / -1198.8 305.75 / 305.75 General: Alert, Oriented x3, Cooperative HEENT: Atraumatic, PERRLA, EOMI, Normocephalic Neck: Supple, No JVD, Negative Carotid Bruits Lungs: Clear to auscultation, Normal air movement Cardiovascular: Regular rate, Regular Rhythm, Normal S1, Normal S2, No murmurs Abdomen: Bowel Sounds Present, Soft, Non Tender, Non-Distended Extremities: No clubbing, No cyanosis, No edema, Capillary Refill Less than 3 Seconds Skin: No rashes, No breakdown Musculoskeletal: No Tenderness to Palpation of Joints or Extremities Neurological: Cranial nerves II-XII grossly intact, Neuro grossly intact Psych/Mental Status: Normal Affect, Appropriate Microbiology Past 72 Hours 06/18/19 10:45 Blood Culture (Wb) - Anticubital Right Blood Culture - Preliminary No growth in 48 hours. 06/18/19 10:30 Blood Culture (Wb) - Anticubital Left Blood Culture - Preliminary No growth in 48 hours. Laboratory Results 06/20/19 16:06: POC Glucose 123 H 06/20/19 23:25: POC Glucose 95 06/21/19 05:25: WBC 6.2, RBC 4.51 L, Hgb 14.5, Hct 43.8, MCV 97.1 H, MCH 32.2 H, MCHC 33.1, RDW Std Deviation 52.0 H, RDW Coeff of Aranza 15.1 H, Plt Count 186, MPV 9.6, Immature Gran % (Auto) 1.000 H, Neut % (Auto) 65.1, Lymph % (Auto) 18.5 L, [place] % (Auto) 11.2 H, Eos % (Auto) 3.2, Baso % (Auto) 1.0, Absolute Neuts (auto) 4.0, Absolute Lymphs (auto) 1.14, Nucleated RBC % 0 06/21/19 05:25: Sodium 137, Potassium 4.0, Chloride 101, Carbon Dioxide 28.0, Anion Gap 8, BUN 66 H, Creatinine 2.13 H, Estim Creat Clear Calc 29.12, Est GFR (MDRD) Af Amer 40 L, Est GFR (MDRD) Non-Af 33 L, BUN/Creatinine Ratio 31.0 H, Glucose 119 H, Calcium 9.0 06/21/19 05:25: APTT 28.5 06/21/19 06:22: POC Glucose 108 06/21/19 12:00: POC Glucose 139 H Current Medications Acetaminophen (Tylenol) 650 mg PO Q6H PRN PRN PRN Reason: Pain Score 1-10/Temp > 100.7 F Al Hydroxide/Mg Hydroxide (Mylanta Ii) 30 ml PO Q6H PRN PRN PRN Reason: Gastric Burning Albuterol Sulfate (Ventolin Aerosols) 2.5 mg INHALATION Q2H PRN PRN PRN Reason: SOB/Wheezing Amiodarone HCl (Cordarone) 200 mg PO DAILY [facility] [place] Last Admin: 06/21/19 06:12 Dose: 200 mg Documented by: Aspirin (Ecotrin) 81 mg PO QHS [facility] [place] Last Admin: 06/20/19 23:23 Dose: 81 mg Documented by: Atorvastatin Calcium (Lipitor) 40 mg PO DAILY [facility] [place] Last Admin: 06/21/19 06:12 Dose: 40 mg Documented by: Atropine Sulfate () 0.5 mg IV UD PRN PRN Reason: HR <50 bpm Buspirone HCl (Buspar) 15 mg PO BID [facility] [place] Last Admin: 06/21/19 09:36 Dose: 15 mg Documented by: Citalopram Hydrobromide (Celexa) 20 mg PO DAILY [facility] [place] Last Admin: 06/21/19 09:36 Dose: 20 mg Documented by: Clopidogrel Bisulfate (Plavix) 75 mg PO DAILY [facility] [place] Last Admin: 06/21/19 06:12 Dose: 75 mg Documented by: Dextrose (D50w Syringe) 0 gm IV X1 PRN; Protocol PRN Reason: Hypoglycemia Diltiazem HCl (Cardizem Cd) 120 mg PO DAILY [facility] [place] Last Admin: 06/21/19 06:12 Dose: 120 mg Documented by: Furosemide (Lasix) 40 mg IV Q8 [facility] [place] Last Admin: 06/21/19 06:08 Dose: Not Given Documented by: Glucagon () 1 mg IM .X1 PRN PRN Reason: Hypoglycemia Guaifenesin (Robitussin) 20 ml PO Q4H PRN PRN PRN Reason: COUGH Heparin Sodium (Porcine) (Heparin Na) 0 unit IV UD PRN; Protocol Sodium Chloride () 1,000 mls @ 0 mls/hr IV .Q0M [facility] [place] Last Infusion: 06/21/19 09:32 Dose: Infused Documented by: Sodium Chloride () 1,000 mls @ 60 mls/hr IV .[id number] [facility] [place] Last Admin: 06/21/19 09:30 Dose: 60 mls/hr Documented by: Insulin Human Lispro (Humalog Kwikpen (Bkc)) 0 unit SC ACHS [facility] [place]; Protocol Last Admin: 06/21/19 12:07 Dose: Not Given Documented by: Labetalol HCl (Trandate) 5 mg IV X1 PRN PRN Reason: SBP > 160 when pulling sheath Stop: 06/23/19 09:52 Melatonin (Melatonin) 3 mg PO QHS PRN PRN PRN Reason: INSOMNIA Oxycodone HCl (Oxyir) 5 mg PO Q4H PRN PRN PRN Reason: Pain Score 4-5/10 Prochlorperazine Edisylate (Compazine Iv) 5 mg IV Q4H PRN PRN PRN Reason: Breakthrough Nausea/Vomiting Senna/Docusate Sodium (Senokot-S, Liv-Colace) 2 tablet PO BID PRN PRN PRN Reason: Constipation Sodium Chloride () 10 - 40 ml IV UD PRN PRN Reason: SALINE FLUSH Last Admin: 06/20/19 23:22 Dose: 20 ml Documented by: Sodium Chloride () 500 ml IV BOLUS PRN PRN Reason: VASO-VAGAL PROTOCOL Medical Necessity - Tobacco Use Smoking Status: Former smoker Assessment/Plan All Active Problems (Last Reviewed 06/18/19 @ 13:[address] Ravinder Carter MD) Hypoxia (Acute) Mild congestive heart failure (Acute) Chest pain (Acute) Rotator cuff tear arthropathy of right shoulder (Resolved) Acute alcohol intoxication (Resolved) History of transurethral resection of prostate (Resolved 2004) H/O shoulder replacement (Resolved 2014) History of nasal surgery (Resolved ~2002) History of mandibular surgery (Resolved ~1992) History of radiofrequency ablation procedure for cardiac arrhythmia (Resolved 2011) History of angioplasty of peripheral vessel (Resolved 03/1996) Chest heaviness (Acute) Shortness of breath (Acute) 1. NSTEMI, S/P PCI 06/21/2019, hx CAD with history of CABG- cardiology following. Underwent cardiac cath today with PCI. Continue aspirin, statin, plavix. 2. REGINO on CKD stage III-nephrology following. Suspect prerenal. Improving with diuresis. Hold Lasix today with gentle fluids given IV contrast related to c ath. Repeat BMP in a.m. 3. Acute on Chronic diastolic CHF-BNP 239. Echocardiogram 06/18/2019 with EF 65%, pulmonary artery systolic pressure 55 mmHg, stage III diastolic dysfunction. IV Lasix on hold due to contrast dye. Resume tomorrow if kidney function stable. Strict I&O. Daily weight. 4. Paroxysmal atrial fibrillation-continue Cardizem. Currently in sinus rhythm. 5. Hypertension-continue Cardizem, Lasix. Lisinopril on hold due to acute kidney injury. 6. Hyperlipidemia-continue statin. 7. PAD-history of lower extremity stenting. Continue aspirin, statin. 8. JD-continue CPAP nightly. 9. BPH with history of TURP 10. Anxiety/depression-continue Celexa, BuSpar, melatonin. DVT prophylaxis-heparin subcu This patient was seen by DARIO Sullivan under the supervision of Dr. Carter. <Ravinder Carter - Last Filed: 06/21/19 16:29> - Physical Exam Vitals/I&O's: Vital Signs Temp Pulse Resp BP Pulse Ox 97.8 F 80 16 139/60 H 95 06/21/19 12:00 06/21/19 15:04 06/21/19 12:00 06/21/19 12:00 06/21/19 12:00 Oxygen Flow Rate (L/min) 1 Oxygen Delivery Method Room Air Weight: 112 kg Body Mass Index (BMI) 39.8 Finger Stick Blood Glucose 98 Intake and Output for Last 24 Hours 06/19/19 06/20/19 06/21/19 23:59 23:59 23:59 Intake Total 753.25 / 993.25 1451.2 / 1451.2 1919.75 / 1919.75 Output Total 1950 / 2975 2650 / 2650 1250 / 1250 Balance -1196.75 / -1981.75 -1198.8 / -1198.8 669.75 / 669.75 Microbiology Past 72 Hours 06/18/19 10:45 Blood Culture (Wb) - Anticubital Right Blood Culture - Preliminary No growth in 48 hours. 06/18/19 10:30 Blood Culture (Wb) - Anticubital Left Blood Culture - Preliminary No growth in 48 hours. Laboratory Results 06/20/19 23:25: POC Glucose 95 06/21/19 05:25: WBC 6.2, RBC 4.51 L, Hgb 14.5, Hct 43.8, MCV 97.1 H, MCH 32.2 H, MCHC 33.1, RDW Std Deviation 52.0 H, RDW Coeff of Aranza 15.1 H, Plt Count 186, MPV 9.6, Immature Gran % (Auto) 1.000 H, Neut % (Auto) 65.1, Lymph % (Auto) 18.5 L, [place] % (Auto) 11.2 H, Eos % (Auto) 3.2, Baso % (Auto) 1.0, Absolute Neuts (auto) 4.0, Absolute Lymphs (auto) 1.14, Nucleated RBC % 0 06/21/19 05:25: Sodium 137, Potassium 4.0, Chloride 101, Carbon Dioxide 28.0, Anion Gap 8, BUN 66 H, Creatinine 2.13 H, Estim Creat Clear Calc 29.12, Est GFR (MDRD) Af Amer 40 L, Est GFR (MDRD) Non-Af 33 L, BUN/Creatinine Ratio 31.0 H, Glucose 119 H, Calcium 9.0 06/21/19 05:25: APTT 28.5 06/21/19 06:22: POC Glucose 108 06/21/19 12:00: POC Glucose 139 H Current Medications Acetaminophen (Tylenol) 650 mg PO Q6H PRN PRN PRN Reason: Pain Score 1-10/Temp > 100.7 F Al Hydroxide/Mg Hydroxide (Mylanta Ii) 30 ml PO Q6H PRN PRN PRN Reason: Gastric Burning Albuterol Sulfate (Ventolin Aerosols) 2.5 mg INHALATION Q2H PRN PRN PRN Reason: SOB/Wheezing Amiodarone HCl (Cordarone) 200 mg PO DAILY [facility] [place] Last Admin: 06/21/19 06:12 Dose: 200 mg Documented by: Aspirin (Ecotrin) 81 mg PO QHS [facility] [place] Last Admin: 06/20/19 23:23 Dose: 81 mg Documented by: Atorvastatin Calcium (Lipitor) 40 mg PO DAILY [facility] [place] Last Admin: 06/21/19 06:12 Dose: 40 mg Documented by: Atropine Sulfate () 0.5 mg IV UD PRN PRN Reason: HR <50 bpm Buspirone HCl (Buspar) 15 mg PO BID [facility] [place] Last Admin: 06/21/19 09:36 Dose: 15 mg Documented by: Citalopram Hydrobromide (Celexa) 20 mg PO DAILY [facility] [place] Last Admin: 06/21/19 09:36 Dose: 20 mg Documented by: Clopidogrel Bisulfate (Plavix) 75 mg PO DAILY [facility] [place] Last Admin: 06/21/19 06:12 Dose: 75 mg Documented by: Dextrose (D50w Syringe) 0 gm IV X1 PRN; Protocol PRN Reason: Hypoglycemia Diltiazem HCl (Cardizem Cd) 120 mg PO DAILY [facility] [place] Last Admin: 06/21/19 06:12 Dose: 120 mg Documented by: Furosemide (Lasix) 40 mg IV Q8 [facility] [place] Last Admin: 06/21/19 06:08 Dose: Not Given Documented by: Glucagon () 1 mg IM .X1 PRN PRN Reason: Hypoglycemia Guaifenesin (Robitussin) 20 ml PO Q4H PRN PRN PRN Reason: COUGH Heparin Sodium (Porcine) (Heparin Na) 0 unit IV UD PRN; Protocol Sodium Chloride () 1,000 mls @ 0 mls/hr IV .Q0M [facility] Last Infusion: 06/21/19 09:32 Dose: Infused Documented by: Insulin Human Lispro (Humalog Kwikpen (Bkc)) 0 unit SC ACHS [facility] [place]; Protocol Last Admin: 06/21/19 12:07 Dose: Not Given Documented by: Labetalol HCl (Trandate) 5 mg IV X1 PRN PRN Reason: SBP > 160 when pulling sheath Stop: 06/23/19 09:52 Melatonin (Melatonin) 3 mg PO QHS PRN PRN PRN Reason: INSOMNIA Oxycodone HCl (Oxyir) 5 mg PO Q4H PRN PRN PRN Reason: Pain Score 4-5/10 Prochlorperazine Edisylate (Compazine Iv) 5 mg IV Q4H PRN PRN PRN Reason: Breakthrough Nausea/Vomiting Senna/Docusate Sodium (Senokot-S, Liv-Colace) 2 tablet PO BID PRN PRN PRN Reason: Constipation Sodium Chloride () 10 - 40 ml IV UD PRN PRN Reason: SALINE FLUSH Last Admin: 06/20/19 23:22 Dose: 20 ml Documented by: Sodium Chloride () 500 ml IV BOLUS PRN PRN Reason: VASO-VAGAL PROTOCOL Assessment/Plan This patient was seen in conjunction with DARIO Sullivan. I have independently interviewed and examined the patient and reviewed pertinent historical, laboratory, and other data. Please refer to DARIO Sullivan note for details of this patient's presentation, findings, and recommendations. I have reviewed DARIO Sullivan note and concur with documented findings. In brief, Patient is a 68-year-old gentleman presenting with shortness of breath has discomfort. Admitted to a monitored bed subsequent evaluation came back consistent with acute non-STEMI as well as congestive heart failure 06/20/2019: Patient seen currently denies chest pain or shortness of breath. Patient is scheduled to undergo left heart catheterization on 06/21/2019. Plan is to rehydrate patient to avoid worsening of his kidney function from contrast- induced nephropathy. Patient has been seen in consultation by nephrology 06/21/2019; patient seen underwent left heart catheterization with percutaneous intervention Physical Examination: GENERAL: cooperative HEENT: Atraumatic; EYES; Anicteric, Normal Conjunctiva NECK; supple, normal thyroid, RESPIRATORY: Diminished to auscultation CARDIOVASCULAR: Regular S1 S2, GI: soft, normoactive bowel sounds, : No Renal angle tenderness; EXTREMITIES: No edema, no clubbing, MUSCULOSKELETAL: no muscle waisting NEURO: Awake; no lateralizing signs. SKIN: No Rash PSYCH; Flat affect Assessment: 1. Acute dyspnea secondary to acute non-STEMI and congestive heart failure 2. Elevated d-dimer?PE and DVT ruled out 3. Acute kidney injury ?Superimposed on baseline chronic kidney disease III. 3. Coronary artery disease patient - - previous CABG (CABG x 3 BETHEA-LAD, SVG- LCX, SVG-D1 03/20/1997) subsequent PCI with intervention (PCI-AGAPITO-SVG to LCx w/ 3.5 x 12 mm Synergy 09/28/18) 4. Peripheral arterial disease 5. Dyslipidemia 6. Paroxysmal A. fib r 7. Obstructive sleep apnea 8. Hypertension 9. Obesity with BMI of 40 10. History of rotator cuff tear arthropathy of right shoulder 11. BPH 12. DVT prophylaxis ?Patient on systemic anticoagulation with heparin Recommendations: 1. I have discussed the results of my overview and impressions with the patient 2. Options for management were reviewed Inpatient E&M: 45864 Subs Hosp L2
[2019-06-21 17:00] LABS: Bedside Glucose 107 mg/dL (70-110)
[2019-06-21] MEDS: Aspirin E.C. 81 MG Tablet PO (23:18)
[2019-06-21 23:55] LABS: Bedside Glucose 115 mg/dL (70-110)
[2019-06-22 03:08] VITALS: PULSE 72
[2019-06-22 04:30] VITALS: BP 148/50; PULSE 73; RESP 20; TEMP 36.3; O2SAT 98
[2019-06-22 07:01] LABS: Bedside Glucose 103 mg/dL (70-110)
[2019-06-22 07:11] LABS: Absolute Lymphocyte Count 0.96 X10^3/uL (0.83-4.51); Absolute Neutrophil Count 4.3 X10^3/uL (2.0-7.7); Basophil# 0.04 X10^3/uL; Basophil% 0.6 % (0-1); Eosinophil# 0.25 X10^3/uL; Hematocrit 41.7 % (40-54); Hemoglobin 13.5 g/dL (13.0-16.5); Lymphocyte # 0.96 X10^3/ul (4.0); Lymphocyte % 15.3 % (19-41); Mean Corp Hgb Conc 32.4 g/dL (32-36); Mean Corpuscular Hgb 31.9 pg (27.0-32.0); Mean Corpuscular Volume 98.6 fL (80-94); Mean Platelet Vol. 9.3 fl (6.2-12.0); Monocyte# 0.64 X10^3/uL; Monocyte% 10.2 % (0-10); NRBC Flagged by Analyzer 0 % (0-5); Neutrophil # 4.28 X10^3/uL (2.7-7.7); Neutrophil % 68.5 % (47-70); Platelet Count 164 K/mm3 (150-450); RBC Distribution Width CV 15.3 % (11.6-14.6); RBC Distribution Width SD 53.9 fl (35.1-43.9); Red Blood Count 4.23 M/mm3 (4.6-6.2); White Blood Count 6.3 K/mm3 (4.4-11.0)
[2019-06-22 07:12] VITALS: PULSE 84
[2019-06-22 07:43] LABS: ALB/GLOB Ratio 0.9 RATIO (0.9-2.4); AST(SGOT) 31 U/L (15-37); Alanine Aminotransfer ALT/SGPT 28 U/L (16-61); Albumin, Serum 3.3 g/dL (3.2-5.0); Alkaline Phosphatase 46 U/L (45-117); Anion Gap 6 (5-15); BUN 46 mg/dL (7-18); BUN/Creat Ratio 30.1 RATIO (10-20); Chloride 106 mmol/L (98-107); Creatinine, Serum 1.53 mg/dL (0.70-1.30); EST Glomerular Filtration Rate 48 mL/min (>60); Est Glom Filt Rate - Afr Amer 58 mL/min (>60); Estimated Creatinine Clearance 40.54 ml/min; Globulin 3.7 g/dL (2.2-4.2); Glucose 106 mg/dL (74-106); Potassium 4.4 mmol/L (3.5-5.1); Sodium Level 139 mmol/L (136-145)
[2019-06-22] MEDS: Furosemide 40 MG/4 ML Vial IV (07:58)
[2019-06-22] MEDS: 0.9% Saline Lock 10 ML Syringe IV (07:58)
[2019-06-22 08:05] VITALS: O2SAT 91
--- NOTE | 2019-06-22 09:21 | DCINST_ITS ---
- Discharge Diagnoses Current Active Problems: Current Active and Chronic Problems (Last Reviewed 06/18/19 @ 13:[address] Ravinder Carter MD) Hypoxia (Acute) Mild congestive heart failure (Acute) Chest pain (Acute) You will use the following diet at home:: Cardiac Discharge Activity: Return to Normal Activity Call your doctor if you observe: Shortness of breath, Dizziness, Fainting spells, Chest pain Additional Instructions: Increase home Lasix regimen to 40 mg twice daily. You will need repeat BMP in 3 to 5 days. Allergies/Adverse Reactions: Allergies gabapentin Adverse Reaction (Verified 06/18/19 10:42) Other made me nuts warfarin [From Coumadin] Adverse Reaction (Verified 06/18/19 10:42) very sensitive, high INR and GI bleed Medications to take at Discharge Aspirin E.C. [Ecotrin] 81 mg PO QHS 01/22/15 nitroglycerin 0.4 mg sublingual tablet 0.4 mg SUBLINGUAL Q5-15M PRN #25 tab 09/18/18 Clopidogrel Bisulfate [Plavix] 75 mg PO DAILY tab 09/29/18 Citalopram [Celexa] 20 mg PO DAILY 12/18/18 buspirone 15 mg tablet 1 tablet PO BID #60 tab 01/05/19 fenofibrate 54 mg tablet 54 mg PO QHS #30 tab 01/05/19 lisinopril 40 mg tablet 40 mg PO DAILY #30 tab 01/26/19 diltiazem HCl 120 mg capsule,extended release 12 hr 120 mg PO DAILY #30 cap 03/05/19 amiodarone 200 mg tablet 200 mg PO DAILY #90 tab 06/08/19 atorvastatin 40 mg tablet 40 mg PO DAILY #90 tab 06/18/19 Furosemide 40 mg PO BID #60 tab 06/22/19 Primary Care Physician: Jazz Rodas DO [Primary Care Provider] - Please follow up with your Primary Care Physician in: 1 Week Test Results: Test results from this visit will be discussed in further detail at your follow- up appointment, if applicable. Please Follow Up With: Elizabeth Interiano MD When: 1 Week Please Follow Up With: Hyun Iglesias PA When: 1-2 Weeks Please Follow Up With: Cathy Bloom NP-C When: As scheduled 07/23/2019 Proposed Discharge Date: 06/22/19
[2019-06-22 09:38] VITALS: BP 164/74; PULSE 96; RESP 18; TEMP 36.7; O2SAT 96
[2019-06-22] MEDS: dilTIAZem CD 120 MG Capsule PO (09:41)
[2019-06-22] MEDS: busPIRone 15 MG TABLET PO (09:41)
[2019-06-22] MEDS: Clopidogrel Bisulfate 75 MG Tablet PO (09:42)
[2019-06-22] MEDS: Atorvastatin Calcium 40 MG Tablet PO (09:42)
[2019-06-22] MEDS: Citalopram 20 MG Tablet PO (09:42)
[2019-06-22] MEDS: Amiodarone 200 MG Tablet PO (09:42)
[2019-06-22 09:52] VITALS: O2SAT 92
--- NOTE | 2019-06-22 10:00 | EKG12_ITS ---
Test Reason : AM EKG Blood Pressure : / mmHG Vent. Rate : 069 BPM Atrial Rate : 069 BPM P-R Int : 192 ms QRS Dur : 096 ms QT Int : 430 ms P-R-T Axes : 075 -35 150 degrees QTc Int : 460 ms Normal sinus rhythm Left axis deviation ST & T wave abnormality, consider lateral ischemia Prolonged QT Abnormal ECG Confirmed by JAMEY PERERA, SHANON ([id number]), senior technical editor ARIADNE RAO ([id number]) on 06/26/2019 7:46:46 AM Referred By: RADHA Confirmed By:SHANON CONCEPCION MD
--- NOTE | 2019-06-22 10:06 | PCM.DC.SUM ---
<Alice García - Last Filed: 06/22/19 10:23> Discharge Date and Diagnosis Date of Admission: 06/18/19 Date of Discharge: 06/22/19 - Primary Discharge Diagnosis Active and Suspected Problems (Last Reviewed 06/18/19 @ 13:[address] Ravinder Carter MD) 1. NSTEMI, S/P PCI 06/21/2019, hx CAD with history of CABG 2. REGINO on CKD stage III 3. Acute on Chronic diastolic CHF 4. Paroxysmal atrial fibrillation 5. Hypertension 6. Hyperlipidemia 7. PAD 8. JD 9. BPH with history of TURP 10. Anxiety/depression - Secondary Discharge Diagnosis Chronic Problems (Last Reviewed 06/18/19 @ 13:[address] Ravinder Carter MD) Obesity (BMI 30-39.9) (Chronic) Anxiety and depression (Chronic) Sleep apnea (Chronic) Persistent atrial fibrillation (Chronic) Left carotid stenosis (Chronic) Chronic kidney disease (Chronic) Chronic diastolic (congestive) heart failure (Chronic) Secondary pulmonary arterial hypertension (Chronic) Atherosclerosis of coronary artery bypass graft without angina pectoris (Chronic) PCI-AGAPITO-SVG to LCx w/ 3.5 x 12 mm Synergy 09/28/18 CABG x 3 BETHEA-LAD, SVG-LCX, SVG-D1 03/20/1997 History of coronary artery bypass surgery (Chronic 03/20/97) CABG X 3 BETHEA to LAD, SVG-LCx, SVG-D1 03/20/1997 History of coronary artery stent placement (Chronic 09/28/18) PCI-AGAPITO-SVG to LCx w/ 3.5 x 12 mm Synergy 09/28/18 Paroxysmal atrial fibrillation (Chronic) RFA Paroxysmal atrial flutter (Chronic) RFA Essential (primary) hypertension (Chronic) HLD (hyperlipidemia) (Chronic) Peripheral vascular occlusive disease (Chronic) Bilateral renal artery stenosis (Chronic) Stage III chronic kidney disease (Chronic) Hospital Course and Treatment Imaging Results: Diagnostic Data Chest X-Ray 06/18/19 10:52 IMPRESSION: Mild cardiomegaly with a mild degree of CHF. Electronically Signed: Osvaldo Manuel, at 11:41 EDT , Service support , Lung Scan-VQ NM 06/18/19 12:55 IMPRESSION: Normal 99m Tc MAA pulmonary perfusion Tc DTPA aerosol ventilation imaging survey, according to revised PIOPED interpretive criteria. Electronically Signed: Osvaldo Manuel, at 14:32 EDT , Service support , Dr. Maria- Cardiology Dr. Interiano- Nephrology Operations: None Procedures: 2-D Echocardiogram, Cardiac catheterization Summary of Care Provided: The patient is a 68 year old M admitted 06/18/2019 due to shortness of breath and chest discomfort. 1. NSTEMI, S/P PCI 06/21/2019, hx CAD with history of CABG- cardiology consulted during admission. Underwent cardiac cath 06/21/2019 with PCI. Continue aspirin, statin, plavix. Follow-up with cardiology in 1 to 2 weeks. Patient follows with Dr. Maria. 2. REGINO on CKD stage III-nephrology consulted. Suspect prerenal. Improving with diuresis. Patient's renal function at baseline at discharge. Continue outpatient follow-up with Dr. Gregory in one week. 3. Acute on Chronic diastolic CHF-BNP 239. Echocardiogram 06/18/2019 with EF 65%, pulmonary artery systolic pressure 55 mmHg, stage III diastolic dysfunction. Home Lasix regimen increased to 40 mg twice daily. Continue home lisinopril regimen. 4. Paroxysmal atrial fibrillation-continue Cardizem. Currently in sinus rhythm. 5. Hypertension-continue Cardizem, Lasix, lisinopril. 6. Hyperlipidemia-continue statin. 7. PAD-history of lower extremity stenting. Continue aspirin, statin. 8. JD-continue CPAP nightly. 9. BPH with history of TURP 10. Anxiety/depression-continue Celexa, BuSpar, melatonin. General: Alert, Oriented x3, Cooperative HEENT: Atraumatic, PERRLA, EOMI, Normocephalic Neck: Supple, No JVD, Negative Carotid Bruits Lungs: Clear to auscultation, Normal air movement Cardiovascular: Regular rate, Regular Rhythm, Normal S1, Normal S2, No murmurs Abdomen: Bowel Sounds Present, Soft, Non Tender, Non-Distended Extremities: No clubbing, No cyanosis, No edema, Capillary Refill Less than 3 Seconds Skin: No rashes, No breakdown Musculoskeletal: No Tenderness to Palpation of Joints or Extremities Neurological: Cranial nerves II-XII grossly intact, Neuro grossly intact Psych/Mental Status: Normal Affect, Appropriate Patient seen and examined prior to discharge. Physical assessment as noted above. Patient is stable for discharge with follow up recommendations as noted above. This patient was seen by DARIO Sullivan under the supervision of Dr. Smith. - Physical Exam Vitals/I&O's: Vital Signs Temp Pulse Resp BP Pulse Ox 98.0 F 96 18 164/74 H 92 06/22/19 09:38 06/22/19 09:38 06/22/19 09:38 06/22/19 09:38 06/22/19 09:52 Oxygen Flow Rate (L/min) 1 Oxygen Delivery Method Room Air Weight: 246 lb 14.684 oz Body Mass Index (BMI) 39.8 Finger Stick Blood Glucose 98 Intake and Output for Last 24 Hours 06/20/19 06/21/19 06/22/19 23:59 23:59 23:59 Intake Total 1451.2 / 1451.2 2619.75 / 2619.75 150 / 150 Output Total 2650 / 2650 2225 / 2225 Balance -1198.8 / -1198.8 394.75 / 394.75 150 / 150 Microbiology Past 72 Hours 06/18/19 10:45 Blood Culture (Wb) - Anticubital Right Blood Culture - Preliminary No growth in 48 hours. 06/18/19 10:30 Blood Culture (Wb) - Anticubital Left Blood Culture - Preliminary No growth in 48 hours. Laboratory Results 06/21/19 12:00: POC Glucose 139 H 06/21/19 16:42: POC Glucose 107 06/21/19 23:20: POC Glucose 115 H 06/22/19 06:32: WBC 6.3, RBC 4.23 L, Hgb 13.5, Hct 41.7, MCV 98.6 H, MCH 31.9, MCHC 32.4, RDW Std Deviation 53.9 H, RDW Coeff of Aranza 15.3 H, Plt Count 164, MPV 9.3, Immature Gran % (Auto) 1.400 H, Neut % (Auto) 68.5, Lymph % (Auto) 15.3 L, [place] % (Auto) 10.2 H, Eos % (Auto) 4.0, Baso % (Auto) 0.6, Absolute Neuts (auto) 4.3, Absolute Lymphs (auto) 0.96, Nucleated RBC % 0 06/22/19 06:32: Sodium 139, Potassium 4.4, Chloride 106, Carbon Dioxide 27.0, Anion Gap 6, BUN 46 H, Creatinine 1.53 H, Estim Creat Clear Calc 40.54, Est GFR (MDRD) Af Amer 58 L, Est GFR (MDRD) Non-Af 48 L, BUN/Creatinine Ratio 30.1 H, Glucose 106, Calcium 9.0, Total Bilirubin 0.40, AST 31, ALT 28, Alkaline Phosphatase 46, Total Protein 7.0, Albumin 3.3, Globulin 3.7, Albumin/Globulin Ratio 0.9 06/22/19 06:49: POC Glucose 103 Current Medications Acetaminophen (Tylenol) 650 mg PO Q6H PRN PRN PRN Reason: Pain Score 1-10/Temp > 100.7 F Al Hydroxide/Mg Hydroxide (Mylanta Ii) 30 ml PO Q6H PRN PRN PRN Reason: Gastric Burning Albuterol Sulfate (Ventolin Aerosols) 2.5 mg INHALATION Q2H PRN PRN PRN Reason: SOB/Wheezing Amiodarone HCl (Cordarone) 200 mg PO DAILY [facility] Last Admin: 06/22/19 09:42 Dose: 200 mg Documented by: Aspirin (Ecotrin) 81 mg PO QHS [facility] Last Admin: 06/21/19 23:18 Dose: 81 mg Documented by: Atorvastatin Calcium (Lipitor) 40 mg PO DAILY [facility] Last Admin: 06/22/19 09:42 Dose: 40 mg Documented by: Atropine Sulfate () 0.5 mg IV UD PRN PRN Reason: HR <50 bpm Buspirone HCl (Buspar) 15 mg PO BID [facility] Last Admin: 06/22/19 09:41 Dose: 15 mg Documented by: Citalopram Hydrobromide (Celexa) 20 mg PO DAILY [facility] Last Admin: 06/22/19 09:42 Dose: 20 mg Documented by: Clopidogrel Bisulfate (Plavix) 75 mg PO DAILY [facility] Last Admin: 06/22/19 09:42 Dose: 75 mg Documented by: Dextrose (D50w Syringe) 0 gm IV X1 PRN; Protocol PRN Reason: Hypoglycemia Diltiazem HCl (Cardizem Cd) 120 mg PO DAILY [facility] Last Admin: 06/22/19 09:41 Dose: 120 mg Documented by: Furosemide (Lasix) 40 mg IV Q8 [facility] Last Admin: 06/22/19 07:58 Dose: 40 mg Documented by: Glucagon () 1 mg IM .X1 PRN PRN Reason: Hypoglycemia Guaifenesin (Robitussin) 20 ml PO Q4H PRN PRN PRN Reason: COUGH Heparin Sodium (Porcine) (Heparin Na) 0 unit IV UD PRN; Protocol Sodium Chloride () 1,000 mls @ 0 mls/hr IV .Q0M [facility] Last Infusion: 06/21/19 09:32 Dose: Infused Documented by: Insulin Human Lispro (Humalog Kwikpen (Bkc)) 0 unit SC ACHS [facility]; Protocol Last Admin: 06/22/19 06:50 Dose: Not Given Documented by: Labetalol HCl (Trandate) 5 mg IV X1 PRN PRN Reason: SBP > 160 when pulling sheath Stop: 06/23/19 09:52 Melatonin (Melatonin) 3 mg PO QHS PRN PRN PRN Reason: INSOMNIA Oxycodone HCl (Oxyir) 5 mg PO Q4H PRN PRN PRN Reason: Pain Score 4-5/10 Prochlorperazine Edisylate (Compazine Iv) 5 mg IV Q4H PRN PRN PRN Reason: Breakthrough Nausea/Vomiting Senna/Docusate Sodium (Senokot-S, Liv-Colace) 2 tablet PO BID PRN PRN PRN Reason: Constipation Sodium Chloride () 10 - 40 ml IV UD PRN PRN Reason: SALINE FLUSH Last Admin: 06/22/19 07:58 Dose: 10 ml Documented by: Sodium Chloride () 500 ml IV BOLUS PRN PRN Reason: VASO-VAGAL PROTOCOL Discharge Diet: Low fat/ Low Cholesterol, 8 Cup Fluid Restriciton, 2000 mg Sodium Diet Discharge Activity: Return to Normal Activity Call your doctor if you observe: Shortness of breath, Dizziness, Fainting spells, Chest pain Home Medications: Medications to take at Discharge Aspirin E.C. [Ecotrin] 81 mg PO QHS 01/22/15 nitroglycerin 0.4 mg sublingual tablet 0.4 mg SUBLINGUAL Q5-15M PRN #25 tab 09/18/18 Clopidogrel Bisulfate [Plavix] 75 mg PO DAILY tab 09/29/18 Citalopram [Celexa] 20 mg PO DAILY 12/18/18 buspirone 15 mg tablet 1 tablet PO BID #60 tab 01/05/19 fenofibrate 54 mg tablet 54 mg PO QHS #30 tab 01/05/19 lisinopril 40 mg tablet 40 mg PO DAILY #30 tab 01/26/19 diltiazem HCl 120 mg capsule,extended release 12 hr 120 mg PO DAILY #30 cap 03/05/19 amiodarone 200 mg tablet 200 mg PO DAILY #90 tab 06/08/19 atorvastatin 40 mg tablet 40 mg PO DAILY #90 tab 06/18/19 Furosemide 40 mg PO BID #60 tab 06/22/19 Primary Care Physician: Jazz Rodas DO [Primary Care Provider] - Please follow up with your Primary Care Physician in: 1 Week Please Follow Up With: Elizabeth Interiano MD When: 1 Week Please Follow Up With: Hyun Iglesias PA When: 1-2 Weeks Please Follow Up With: Cathy Bloom NP-C When: As scheduled 07/23/2019 Disposition: Home Minutes spent on discharge:: 35 Patient Condition:: Stable Medical Necessity - Tobacco Use Smoking Status: Former smoker Meaningful Use Info Meaningful Use Diagnoses (Choose all that apply): CHF - CHF RAMAKRISHNA/ARB ordered at discharge?: Yes Documented LVEF (%): 65 <Alhaji Smith - Last Filed: 06/22/19 17:08> Discharge Date and Diagnosis - Secondary Discharge Diagnosis Chronic Problems (Last Reviewed 06/18/19 @ 13:[address] Ravinder Carter MD) Obesity (BMI 30-39.9) (Chronic) Anxiety and depression (Chronic) Sleep apnea (Chronic) Persistent atrial fibrillation (Chronic) Left carotid stenosis (Chronic) Chronic kidney disease (Chronic) Chronic diastolic (congestive) heart failure (Chronic) Secondary pulmonary arterial hypertension (Chronic) Atherosclerosis of coronary artery bypass graft without angina pectoris (Chronic) PCI-AGAPITO-SVG to LCx w/ 3.5 x 12 mm Synergy 09/28/18 CABG x 3 BETHEA-LAD, SVG-LCX, SVG-D1 03/20/1997 History of coronary artery bypass surgery (Chronic 03/20/97) CABG X 3 BETHEA to LAD, SVG-LCx, SVG-D1 03/20/1997 History of coronary artery stent placement (Chronic 06/22/19) PCI-AGAPITO-SVG to LCx w/ 3.5 x 12 mm Synergy 09/28/18;Successful PCI with Drug eluting stent and PTCA to the SVG to OM 06/22/2019 Paroxysmal atrial fibrillation (Chronic) RFA Paroxysmal atrial flutter (Chronic) RFA Essential (primary) hypertension (Chronic) HLD (hyperlipidemia) (Chronic) Peripheral vascular occlusive disease (Chronic) Bilateral renal artery stenosis (Chronic) Stage III chronic kidney disease (Chronic) Hospital Course and Treatment Summary of Care Provided: This patient was seen in conjunction with Alice HELM. I have independently interviewed and examined the patient and reviewed pertinent history, examination findings, laboratory and plan of management. I have reviewed the note and agree with the documented findings with the few additional points. In brief, patient is admitted for non-STEMI status post PCI on 06/21/2019. Patient on aspirin, Plavix and statin. Patient also had acute on chronic diastolic heart failure. Echo was done shows EF 65% with moderate pulmonary hypertension, RVSP 55 mmHg, stage III diastolic dysfunction. Lasix increased to 40 mg twice daily and discharged on the same dose. Patient on lisinopril. Paroxysmal A. fib on Cardizem. Currently in sinus rhythm. Rest of the comorbidities as mentioned above Discharge medication reconciliation done. Discharge follow-up instructions completed. Discharge process discussed with the patient and all questions were answered to patient's satisfaction. Total time spent, exact 35 minutes on discharge meds reconciliation, examination, coordination of care with nurses and ancillary staff, review of imaging and blood test and discussion with the patient on follow-up instructions I have discussed my assessment with Alice HELM and orders have been reviewed. [] Objective: Seen and examined. Vital signs are stable. - Physical Exam Vitals/I&O's: Vital Signs Temp Pulse Resp BP Pulse Ox 98.0 F 96 18 164/74 H 92 06/22/19 09:38 06/22/19 09:38 06/22/19 09:38 06/22/19 09:38 06/22/19 09:52 Oxygen Flow Rate (L/min) 1 Oxygen Delivery Method Room Air Weight: 246 lb 14.684 oz Body Mass Index (BMI) 39.8 Finger Stick Blood Glucose 98 Intake and Output for Last 24 Hours 06/20/19 06/21/19 06/22/19 23:59 23:59 23:59 Intake Total 1451.2 / 1451.2 2619.75 / 2619.75 150 / 150 Output Total 2650 / 2650 2225 / 2225 Balance -1198.8 / -1198.8 394.75 / 394.75 150 / 150 General: Alert, Oriented x3, Cooperative HEENT: Atraumatic, PERRLA, EOMI, Normocephalic Neck: Supple, No JVD, Negative Carotid Bruits Lungs: Clear to auscultation, No rhonchi, No wheeze, No rales, Diminished Cardiovascular: Regular rate, Regular Rhythm, Normal S1, Normal S2, No murmurs Abdomen: Bowel Sounds Present, Soft, Non Tender, Non-Distended Extremities: Capillary Refill Less than 3 Seconds, Edema - Edema is much improved. Skin: No rashes, No breakdown Musculoskeletal: No Tenderness to Palpation of Joints or Extremities, Arthritic Changes Neurological: Cranial nerves II-XII grossly intact Psych/Mental Status: Normal Affect, Appropriate Microbiology Past 72 Hours 06/18/19 10:45 Blood Culture (Wb) - Anticubital Right Blood Culture - Preliminary No growth in 48 hours. 06/18/19 10:30 Blood Culture (Wb) - Anticubital Left Blood Culture - Preliminary No growth in 48 hours. Laboratory Results 06/21/19 23:20: POC Glucose 115 H 06/22/19 06:32: WBC 6.3, RBC 4.23 L, Hgb 13.5, Hct 41.7, MCV 98.6 H, MCH 31.9, MCHC 32.4, RDW Std Deviation 53.9 H, RDW Coeff of Aranza 15.3 H, Plt Count 164, MPV 9.3, Immature Gran % (Auto) 1.400 H, Neut % (Auto) 68.5, Lymph % (Auto) 15.3 L, [place] % (Auto) 10.2 H, Eos % (Auto) 4.0, Baso % (Auto) 0.6, Absolute Neuts (auto) 4.3, Absolute Lymphs (auto) 0.96, Nucleated RBC % 0 06/22/19 06:32: Sodium 139, Potassium 4.4, Chloride 106, Carbon Dioxide 27.0, Anion Gap 6, BUN 46 H, Creatinine 1.53 H, Estim Creat Clear Calc 40.54, Est GFR (MDRD) Af Amer 58 L, Est GFR (MDRD) Non-Af 48 L, BUN/Creatinine Ratio 30.1 H, Glucose 106, Calcium 9.0, Total Bilirubin 0.40, AST 31, ALT 28, Alkaline Phosphatase 46, Total Protein 7.0, Albumin 3.3, Globulin 3.7, Albumin/Globulin Ratio 0.9 06/22/19 06:49: POC Glucose 103 Inpatient E&M: 13609 Disch Hosp
--- NOTE | 2019-06-22 10:14 | PCM.PN.REN ---
Subjective: Pt has not complaints today No nausea No vomiting. No SOB. No CP - Physical Exam Vitals/I&O's: Vital Signs Temp Pulse Resp BP Pulse Ox 98.0 F 96 18 164/74 H 92 06/22/19 09:38 06/22/19 09:38 06/22/19 09:38 06/22/19 09:38 06/22/19 09:52 Oxygen Flow Rate (L/min) 1 Oxygen Delivery Method Room Air Weight: 112 kg Body Mass Index (BMI) 39.8 Finger Stick Blood Glucose 98 Intake and Output for Last 24 Hours 06/20/19 06/21/19 06/22/19 23:59 23:59 23:59 Intake Total 1451.2 / 1451.2 2619.75 / 2619.75 150 / 150 Output Total 2650 / 2650 2225 / 2225 Balance -1198.8 / -1198.8 394.75 / 394.75 150 / 150 General: Alert, Oriented x3 HEENT: Atraumatic Oral: Moist Mucosa Neck: Supple, No JVD Lungs: Clear to auscultation, Normal air movement, No rhonchi Cardiovascular: Regular rate, Regular Rhythm, Normal S1, Normal S2 Abdomen: Bowel Sounds Present, Soft, Non Tender, Non-Distended Extremities: No clubbing, No cyanosis, No edema Skin: No rashes Musculoskeletal: No Tenderness to Palpation of Joints or Extremities Lymphatic: No Cervical, Supraclavicular, or Inguinal Adenopathy Neurological: Cranial nerves II-XII grossly intact, Neuro grossly intact Psych/Mental Status: Appropriate Microbiology Past 72 Hours 06/18/19 10:45 Blood Culture (Wb) - Anticubital Right Blood Culture - Preliminary No growth in 48 hours. 06/18/19 10:30 Blood Culture (Wb) - Anticubital Left Blood Culture - Preliminary No growth in 48 hours. Laboratory Results 06/21/19 12:00: POC Glucose 139 H 06/21/19 16:42: POC Glucose 107 06/21/19 23:20: POC Glucose 115 H 06/22/19 06:32: WBC 6.3, RBC 4.23 L, Hgb 13.5, Hct 41.7, MCV 98.6 H, MCH 31.9, MCHC 32.4, RDW Std Deviation 53.9 H, RDW Coeff of [place]anza 15.3 H, Plt Count 164, MPV 9.3, Immature Gran % (Auto) 1.400 H, Neut % (Auto) 68.5, Lymph % (Auto) 15.3 L, [place] % (Auto) 10.2 H, Eos % (Auto) 4.0, Baso % (Auto) 0.6, Absolute Neuts (auto) 4.3, Absolute Lymphs (auto) 0.96, Nucleated RBC % 0 06/22/19 06:32: Sodium 139, Potassium 4.4, Chloride 106, Carbon Dioxide 27.0, Anion Gap 6, BUN 46 H, Creatinine 1.53 H, Estim Creat Clear Calc 40.54, Est GFR (MDRD) Af Amer 58 L, Est GFR (MDRD) Non-Af 48 L, BUN/Creatinine Ratio 30.1 H, Glucose 106, Calcium 9.0, Total Bilirubin 0.40, AST 31, ALT 28, Alkaline Phosphatase 46, Total Protein 7.0, Albumin 3.3, Globulin 3.7, Albumin/Globulin Ratio 0.9 06/22/19 06:49: POC Glucose 103 Current Medications Acetaminophen (Tylenol) 650 mg PO Q6H PRN PRN PRN Reason: Pain Score 1-10/Temp > 100.7 F Al Hydroxide/Mg Hydroxide (Mylanta Ii) 30 ml PO Q6H PRN PRN PRN Reason: Gastric Burning Albuterol Sulfate (Ventolin Aerosols) 2.5 mg INHALATION Q2H PRN PRN PRN Reason: SOB/Wheezing Amiodarone HCl (Cordarone) 200 mg PO DAILY [facility] Last Admin: 06/22/19 09:42 Dose: 200 mg Documented by: Aspirin (Ecotrin) 81 mg PO QHS [facility] Last Admin: 06/21/19 23:18 Dose: 81 mg Documented by: Atorvastatin Calcium (Lipitor) 40 mg PO DAILY [facility] Last Admin: 06/22/19 09:42 Dose: 40 mg Documented by: Atropine Sulfate () 0.5 mg IV UD PRN PRN Reason: HR <50 bpm Buspirone HCl (Buspar) 15 mg PO BID [facility] Last Admin: 06/22/19 09:41 Dose: 15 mg Documented by: Citalopram Hydrobromide (Celexa) 20 mg PO DAILY [facility] Last Admin: 03/13/20 09:42 Dose: 20 mg Documented by: Clopidogrel Bisulfate (Plavix) 75 mg PO DAILY [facility] Last Admin: 06/22/19 09:42 Dose: 75 mg Documented by: Dextrose (D50w Syringe) 0 gm IV X1 PRN; Protocol PRN Reason: Hypoglycemia Diltiazem HCl (Cardizem Cd) 120 mg PO DAILY [facility] Last Admin: 06/22/19 09:41 Dose: 120 mg Documented by: Furosemide (Lasix) 40 mg IV Q8 [facility] Last Admin: 06/22/19 07:58 Dose: 40 mg Documented by: Glucagon () 1 mg IM .X1 PRN PRN Reason: Hypoglycemia Guaifenesin (Robitussin) 20 ml PO Q4H PRN PRN PRN Reason: COUGH Heparin Sodium (Porcine) (Heparin Na) 0 unit IV UD PRN; Protocol Sodium Chloride () 1,000 mls @ 0 mls/hr IV .Q0M [facility] Last Infusion: 06/21/19 09:32 Dose: Infused Documented by: Insulin Human Lispro (Humalog Kwikpen (Bkc)) 0 unit SC ACHS [facility]; Protocol Last Admin: 06/22/19 06:50 Dose: Not Given Documented by: Labetalol HCl (Trandate) 5 mg IV X1 PRN PRN Reason: SBP > 160 when pulling sheath Stop: 06/23/19 09:52 Melatonin (Melatonin) 3 mg PO QHS PRN PRN PRN Reason: INSOMNIA Oxycodone HCl (Oxyir) 5 mg PO Q4H PRN PRN PRN Reason: Pain Score 4-5/10 Prochlorperazine Edisylate (Compazine Iv) 5 mg IV Q4H PRN PRN PRN Reason: Breakthrough Nausea/Vomiting Senna/Docusate Sodium (Senokot-S, Liv-Colace) 2 tablet PO BID PRN PRN PRN Reason: Constipation Sodium Chloride () 10 - 40 ml IV UD PRN PRN Reason: SALINE FLUSH Last Admin: 06/22/19 07:58 Dose: 10 ml Documented by: Sodium Chloride () 500 ml IV BOLUS PRN PRN Reason: VASO-VAGAL PROTOCOL Medical Necessity - Tobacco Use Smoking Status: Former smoker Assessment/Plan All Active Problems (Last Reviewed 06/18/19 @ 13:[address] Ravinder Carter MD) Hypoxia (Acute) Mild congestive heart failure (Acute) Chest pain (Acute) Rotator cuff tear arthropathy of right shoulder (Resolved) Acute alcohol intoxication (Resolved) History of transurethral resection of prostate (Resolved 2004) H/O shoulder replacement (Resolved 2014) History of nasal surgery (Resolved ~2002) History of mandibular surgery (Resolved ~1992) History of radiofrequency ablation procedure for cardiac arrhythmia (Resolved 2011) History of angioplasty of peripheral vessel (Resolved 03/1996) Chest heaviness (Acute) Shortness of breath (Acute) 1- REGINO on CKD stage 3. Baseline SCr ~ 1.1 mg/dL REGINO is likely prerenal related to CRS SCr improved with diuresis. lasix had to be stopped on 06/19 for cardiac cath SCr continues to improve . SCr is down to 1.5 mg/dL but not yet at baseline Ok to resume home oral lasix dose. Losartan can be resume when SCr is back to baseline. This can be done at outpatient setting Continue to monitor RFP if remains inpatient 2- HTN: BP is well controlled Continue holding lisinopril Resume lasix 3- NSTEMI: s/p PCI on 06/20 cardiology service is following Ok to d/c patient from nephrology stand point. Renal team will continue to follow while inpatient Please call if any question Elizabeth Interiano MD
--- NOTE | 2019-06-22 12:33 | CL.I_ITS ---
Patient Name: LETHA DEVI Study Date: 06/21/2019 Performing: Narda Arevalo MD Ht: 66.14 inches 168 cm : 1950 Wt: 246.92 lbs 112 kg Age: 68 Gender: male BSA: 2.19 PROCEDURE(S) PERFORMED [id number] AND/OR PTCA, SINGLE GRAFT CLINICAL PROFILE AND CO-MORBIDITIES Indications: Suspected CAD Heart Failure: NYHA Class: 3, Newly Diagnosed: No, Heart Failure Type: Diastolic Stress/Imaging Stress/Image Study Performed: No CONCLUSIONS Successful PCI with Drug eluting stent and PTCA to the SVG to OM RECOMMENDATIONS ASA Indefinitley Plavix for at least 12 months Follow up with primary note teller DESCRIPTION OF PROCEDURE The patient arrived to the procedure lab. The risks and benefits of the procedure as well as a full d escription of our services here and current unavailability of surgical backup were fully explained to the patient and/or their significant other prior to the catheterization. The Timeout was completed, verifying the correct patient and procedure. The patient's procedural site was prepped and draped in the usual fashion. Local anesthetic was given subcutaneously to left radial region with Lidocaine 2% Using a modified Seldinger technique,arterial access was obtained via the left radial artery, a 6Fr s carmen was inserted. Left internal mammary artery graft to the LAD selective angiography was performed in multiple views using a 5 Fr. IM catheter. Right Coronary Artery selective angiography was then pe rformed in multiple views using a 5 Fr. JR 4 catheter. Saphenous Vein graft to the Circumflex selecti ve angiography was performed in multiple views using a 5 Fr. JR 4 catheter. Saphenous Vein graft to the DIAG 1 selective angiography was performed in multiple views using a 5 Fr. JR 4 catheter -stumped.The images were reviewed and options discussed. A decision was then made to proceed with an Intervention, IVUS or other adjunct procedure. JR4 Guide catheter was inserted and engaged into the SVG to the Circumflex. 6fr guideliner Guide catheter was inserted and engaged into the SVG to the Circumflex. JR4 Guide catheter was inserted and engaged into the SVG to the Circumflex. Emerge 3.00x12 Balloon catheter was inserted. PTCA balloon i nflated at 12 atms for 27 secs. Angiogram performed post balloon dilatation. NC Emerge 3.50x12 Balloo n catheter was inserted. PTCA balloon inflated at 12 atms for 13 secs. PTCA balloon inflated at 12 at ms for 12 secs. PTCA balloon inflated at 12 atms for 37 secs. PTCA balloon inflated at 20 atms for 1: 40 min Angiogram performed post balloon dilatation. Synergy 3.50x16 Drug Eluting stent was inserted. Angiogram performed post stent deployment. NC Emerge 3.75x12 Balloon catheter was inserted. Angiogram performed post balloon dilatation. The arterial sheath was pulled and a TR Band was applied for he mostasis w/ 17ml air INTERVENTION INFORMATION LESION SITE: Vein > to Circumflex (Proximal) Segment Number: 18-Proximal circumflex artery segment - pCIRC , Lesion Location: Aortic Lesion Complexity: High/C, chronic total occlusion: No, lesion at bifurcation: No, thrombus present: Yes, lesion length: 14 mm, culprit lesion: Yes, Previously treated lesion: Yes, Timeframe of previous treatment: 6-12 months, Previously treated with a stent: Yes Stent Type: with AGAPITO, In-stent Thrombos is: No Pre Stenosis: 95 % Pre intervention BRYCE flow: 2 PROCEDURE: Drug Eluting Stent with pre and post dilatation Post Stenosis: 0 % Post intervention BRYCE flow: 3 Lesion Devices: Cardinal 6 Fr JR4 100cm Guide Catheter Perez .014 [employer] Ider Straight 190cm [employer] 6 [place] GuideLiner Bandar Sci EMERGE MR 3.00x12 BALLOON Bandar Sci NC EMERGE MR 3.50x12 BALLOON Bandar Sci Synergy MR AGAPITO 3.50x16 Bandar Sci NC EMERGE MR 3.75x12 BALLOON COMPLICATIONS No Complications PROCEDURE MEDICATIONS Versed 1 mg IV Fentanyl 50 mcg IV Versed 1 mg IV Oxygen: 2 L/min via nasal cannula Heparin 6000 unit(s) IV 06/21/2019 08:32:42 SUMMARY OF HEMODYNAMIC DATA Time AIR REST ECG 07:46:58 AO 151/62 (96) SA 08:05:25 RM AIR REST 08:41:37 Signed By Narda Arevalo MD On 06/22/2019 12:31:45 Narda Arevalo MD
--- NOTE | 2019-06-26 14:53 | CASEMGMT ---
DC DATE: 06.26.2019 DC DISPOSITION: Home DC DIAGNOSIS: NSTEMI LACE/STRATA: 03/14 F/U APPTS MADE PRIOR TO DC: yes PRESCRIPTIONS ACQUIRED BY PT: X Attempted call to patient's phone. No answer and no message machine available. Casie LEGERN RN ACM
== END 2019-06-22 10:14 | disposition home or self-care (01) | DRG 246 ==
LOC: ED 11:48 → PCU 12:13
PROVIDERS: Admitting Provider Internal Medicine; Emergency Provider Emergency Medicine; PCP Internal Medicine; Visit Provider Internal Medicine
DX: I21.4 Non-ST elevation (NSTEMI) myocardial infarction (principal); I50.33 Acute on chronic diastolic (congestive) heart failure; N17.9 Acute kidney failure, unspecified; I13.0 Hypertensive heart and chronic kidney disease with heart failure and stage 1 through stage 4 chronic kidney disease, or unspecified chronic kidney disease; I25.810 Atherosclerosis of coronary artery bypass graft(s) without angina pectoris; N18.3 Chronic kidney disease, stage 3 (moderate); I73.9 Peripheral vascular disease, unspecified; E78.5 Hyperlipidemia, unspecified; G47.33 Obstructive sleep apnea (adult) (pediatric); N40.0 Benign prostatic hyperplasia without lower urinary tract symptoms; F32.9 Major depressive disorder, single episode, unspecified; F41.9 Anxiety disorder, unspecified; E66.9 Obesity, unspecified; I48.0 Paroxysmal atrial fibrillation; Z68.39 Body mass index [BMI] 39.0-39.9, adult; Z87.891 Personal history of nicotine dependence; Z95.5 Presence of coronary angioplasty implant and graft; Z90.79 Acquired absence of other genital organ(s); Z79.02 Long term (current) use of antithrombotics/antiplatelets; Z79.82 Long term (current) use of aspirin; Z95.820 Peripheral vascular angioplasty status with implants and grafts
CPT/HCPCS: 36415; 71045; 78582; 80048; 80053; 82962; 83036; 83880; 84484; 85025; 85379; 85730; 87040; 92928; 92937; 93005; 93306; 93455; 93970; 94762; 97802; 99152; 99153; 99251; 99285; A9540; A9567; J7030; Q9957; Q9967; A4216; C1725; C1769; C1874; C1887; C1894; C8929; C9600; C9604; G0463; J1940